=== PATIENT | male | born 1965 | race African-American/Black ===

== ENCOUNTER 2024-05-30 05:42 | Emergency (ER) | payer OTHER, SELFPAY ==
--- NOTE | ~2024-05-30 | XR_ITS ---
XR chest 1V portable DATE: 05/30/2024 06:20 INDICATION: Shortness of breath TECHNIQUE: Portable upright AP chest on 05/30/2024 0618 hours COMPARISON: None FINDINGS: Status post sternotomy. Normal heart size. No hilar or mediastinal enlargement. Mild bilateral hyperinflation. No pulmonary infiltrate or consolidation, pleural effusion or pulmonar y vascular congestion or pneumothorax is detected. IMPRESSION: Status post sternotomy Bilateral hyperinflation; otherwise no active cardiopulmonary disease Reviewed, dictated and finalized at location A. PROCESSOR
[2024-05-30 05:43] VITALS: BP 157/99; PULSE 109; RESP 23; TEMP 37.1; O2SAT 100
--- NOTE | 2024-05-30 05:49 | ECG_ITS ---
Test Date: 2024-05-30 05:52:53 Measurements Intervals [place] Rate: 106 P: 80 TN: 116 QRS: 74 QRSD: 86 T: 40 QT: 343 QTc: 457 Interpretive Statements SINUS TACHYCARDIA WITH SHORT TN INTERVAL No previous ECG available for comparison Electronically Signed On 06-02-2024 16:03:54 [employer] LEADER by Katie Chavarria M.D.
[2024-05-30 05:51] VITALS: O2SAT 100
[2024-05-30 05:53] VITALS: PULSE 115
[2024-05-30] MEDS: methylPREDNISolone SOD SUCC 125 MG VIAL IV PUSH (06:02)
--- NOTE | 2024-05-30 06:10 | ED.GENADULT ---
HPI - General Adult General Chief complaint: Shortness of Breath/Dyspnea Stated complaint: SOB/HTN Time Seen by Provider: 05/30/24 05:43 History of Present Illness HPI narrative: Patient 58-year-old gentleman who presents emergency department with chief complaint of shortness of breath. 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 Patient denies fever reports he was given a DuoNeb and a albuterol treatment prior to arrival and reports he has had some improved Related Data Allergies Allergy/AdvReac Type Severity Reaction Status Date / Time No Known Allergies Allergy Verified 05/30/24 05:56 Review of Systems Review of Systems: A 10 system review of systems was completed on the patient and is negative except for what is stated in the HPI. Nursing and ancillary documentation was reviewed. Exam Narrative: GENERAL: Well-appearing, well-nourished, and in mild acute respiratory distress. HEAD: Normocephalic, atraumatic. EYES: PERRLA and EOMI. ENT: Nares clear, no rhinorrhea or epistaxis. Mucous membranes moist. NECK: Supple. CHEST: Clear to auscultation. Mild respiratory distress. HEART: Tachycardic rate and rhythm. No murmur heard. Normal peripheral pulses. ABDOMEN: Soft, nontender, nondistended, normal active bowel sounds. EXTREMITIES: Normal range of motion. No edema. SKIN: Warm, dry, no rash. NEURO: No focal deficits. Alert and oriented x3. PSYCH: Normal mood and affect. Course Vital Signs Vital signs: Vital Signs Temperature 37.1 C 05/30/24 05:43 Pulse Rate 109 H 05/30/24 05:43 Respiratory Rate 23 H 05/30/24 05:43 Blood Pressure 157/99 H 05/30/24 05:43 Pulse Oximetry 100 05/30/24 05:43 Oxygen Delivery Room Air 05/30/24 05:43 Temperature 37.1 C 05/30/24 05:43 Pulse Rate 115 H 05/30/24 05:53 Respiratory Rate 23 H 05/30/24 05:43 Blood Pressure 157/99 H 05/30/24 05:43 Pulse Oximetry 100 05/30/24 05:51 Oxygen Delivery Room Air 05/30/24 05:51 Medical Decision Making MDM Narrative Medical decision making narrative: Differential diagnosis includes pneumonia, COPD exacerbation, upper respiratory infection strep pharyngitis Strep was negative COVID flu and RSV were negative Laboratory studies were obtained on the patient which showed a white count of 6.4 ABG showed a pH 7.42 pCO2 of 34.6 PO2 of 78 with a saturation of 95.9 lactic acid 1.5 BNP was 126 troponin was negative procalcitonin 0.1 Patient was given breathing treatments and Solu-Medrol in the emergency department the patient be discharged home with prescription for Tessalon Perles and also a prescription for prednisone. Vital Signs Vital Signs: Vital Signs Temperature 37.1 C 05/30/24 05:43 Pulse Rate 109 H 05/30/24 05:43 Respiratory Rate 23 H 05/30/24 05:43 Blood Pressure 157/99 H 05/30/24 05:43 Pulse Oximetry 100 05/30/24 05:43 Oxygen Delivery Room Air 05/30/24 05:43 Temperature 37.1 C 05/30/24 05:43 Pulse Rate 115 H 05/30/24 05:53 Respiratory Rate 23 H 05/30/24 05:43 Blood Pressure 157/99 H 05/30/24 05:43 Pulse Oximetry 100 05/30/24 05:51 Oxygen Delivery Room Air 05/30/24 05:51 Lab Data 05/30/24 06:03 05/30/24 06:03 Labs: Lab Results 05/30/24 Range/Units 06:03 WBC 6.4 (4.5-10.0) K/mm3 RBC 3.55 L (4.6-6.20) M/mm3 Hgb 11.2 L (14.0-18.0) g/dL Hct 34.1 L (42.0-52.0) % MCV 96.1 (80-100) fl MCH 31.5 (26-34) pg MCHC 32.8 (32-36) g/dl RDW 14.2 (11.5-14.5) % Plt Count 242 (150-375) k/mm3 MPV 8.1 (7.4-10.4) fl Immature Gran % (Auto) 0.3 (0-0.5) % Neut % (Auto) 67.5 (45.5-73.1) % Lymph % (Auto) 20.8 (18.3-44.2) % Harlan % (Auto) 10.6 H (2.6-8.5) % Eos % (Auto) 0.5 (0-4.4) % Baso % (Auto) 0.3 (0.2-1.2) % Lymph # (Auto) 1.34 (0.9-3.2) K/mm3 Harlan # (Auto) 0.7 H (0.1-0.6) K/mm3 Eos # (Auto) 0.0 (0-0.3) K/mm3 Baso # (Auto) 0.0 (0.0-0.1) K/mm3 Abs Immat Gran (auto) 0.02 (0.00-0.031) K/mm3 Absolute Neuts (auto) 4.3 (1.3-6.7) K/mm3 Absolute Nucleated RBC 0.000 (0.0-0.012) K/mm3 Nucleated RBC % 0.0 (0.0-0.2) % PT 13.8 (11.1-14.7) Seconds INR 1.0 APTT 31.8 (22.3-36.8) Seconds Sodium 137 (137-145) mmol/L Potassium 3.2 L (3.4-5.0) mmol/L Chloride 106 (98-107) mmol/L Carbon Dioxide 28 (22-30) mmol/L Anion Gap 3 L (4-12) mmol/L BUN 13 (9-20) mg/dL Creatinine 1.10 (0.7-1.3) mg/dL Estim Creat Clear Calc 56 ml/min Estimated GFR > 60 (59 - ) Glucose 127 H (65-110) mg/dL Lactic Acid 1.5 (0.7-2.0) mmol/L Calcium 8.2 L (8.4-10.2) mg/dL Magnesium 1.7 (1.6-2.3) mg/dL Total Bilirubin 0.4 (0.2-1.3) mg/dL AST 21 (17-59) U/L ALT 21 (6-50) U/L Alkaline Phosphatase 105 (38-126) U/L Troponin I < 0.012 (0.000-0.034) ng/mL NT-Pro-B Natriuret Pep 126 H (19.9-100) pg/mL Total Protein 6.0 L (6.3-8.2) g/dL Albumin 3.3 L (3.5-5.1) g/dL Procalcitonin 0.1 ng/mL Influenza A (RT-PCR) Negative (Negative) Influenza B (RT-PCR) Negative (Negative) RSV (RT-PCR) Negative (Negative) SARS-CoV-2 RNA (RT-PCR) Negative (Negative) Group A Strep (PCR) Not detected (Negative) ABG Data ABG results: 05/30/24 06:08 Puncture Site Right brachial ABG pH 7.424 ABG pCO2 34.6 L ABG pO2 78.0 L ABG PO2/FiO2 Ratio 3.71 ABG HCO3 22.1 ABG O2 Saturation 95.9 ABG O2 Content 14.5 L ABG Base Excess -1.8 A-a Gradient 30.3 Oxyhemoglobin 91.6 Total Hemoglobin 11.2 L O2 Delivery Device Room air O2 Liters/Min 0.0 FiO2 21 Discharge Plan Discharge Clinical Impression: Asthma exacerbation in COPD Patient Disposition: Home, Self-Care Condition: Stable Instructions: Antibiotic Form, COPD (Chronic Obstructive Pulmonary Disease) (ED) Patient Language: Japanese Prescriptions: New prednisone 20 mg tablet 40 mg PO DAILY 5 Days Qty: 10 0RF benzonatate 200 mg capsule 200 mg PO TID PRN (Reason: cough) Qty: 21 0RF Follow-up/Referrals: UNKNOWN,DOCTOR [Primary Care Provider] - Time of Disposition: 07:00
[2024-05-30 06:13] LABS: Basophils Percent Auto 0.3 % (0.2-1.2); Eosinophils Percent Auto 0.5 % (0-4.4); Hematocrit 34.1 % (42.0-52.0); Hemoglobin 11.2 g/dL (14.0-18.0); Immature Granulocyte Absolute 0.02 K/mm3 (0.00-0.031); Immature Granulocyte Percent A 0.3 % (0-0.5); Lymphocytes Absolute Auto 1.34 K/mm3 (0.9-3.2); Lymphocytes Percent Auto 20.8 % (18.3-44.2); Mean Corpuscular HGB Conc 32.8 g/dl (32-36); Mean Corpuscular Hemoglobin 31.5 pg (26-34); Mean Corpuscular Volume 96.1 fl (80-100); Mean Platelet Volume 8.1 fl (7.4-10.4); Monocytes Absolute Auto 0.7 K/mm3 (0.1-0.6); Monocytes Percent Auto 10.6 % (2.6-8.5); Neutrophils Absolute Auto 4.3 K/mm3 (1.3-6.7); Neutrophils Percent Auto 67.5 % (45.5-73.1); Platelet Count Result 242 k/mm3 (150-375); Red Blood Count 3.55 M/mm3 (4.6-6.20); Red Cell Distribution Width 14.2 % (11.5-14.5); White Blood Count 6.4 K/mm3 (4.5-10.0)
[2024-05-30 06:17] LABS: Alveolar/Arterial O2 Gradient 30.3 mmHg; Base Excess ABG -1.8 mEq/l (+/-2.0); Fractional Inspired Oxygen 21 %; HCO3 ABG 22.1 mEq/l (22.0-26.0); Oxygen Content ABG 14.5 %vol (16.0-22.0); Oxygen Saturation ABG 95.9 % (95.0-100.0); Oxyhemoglobin 91.6 % THb (90.0-100.0); PCO2 ABG 34.6 mmHg (35.0-45.0); PO2 FiO2 Ratio Arterial Blood 3.71 %; Total Hemoglobin 11.2 g/dL (12.0-18.0); pH ABG 7.424 (7.350-7.450)
[2024-05-30 06:18] LABS: Device ROOM AIR; Site Drawn RIGHT BRACHIAL
[2024-05-30 06:24] LABS: Prothrombin Time 13.8 Seconds (11.1-14.7)
[2024-05-30 06:25] LABS: Partial Thromboplastin Time 31.8 Seconds (22.3-36.8)
[2024-05-30 06:26] LABS: Lactic Acid Reflex 1.5 mmol/L (0.7-2.0)
[2024-05-30 06:31] LABS: Alanine Aminotransferase 21 U/L (6-50); Albumin Level 3.3 g/dL (3.5-5.1); Alkaline Phosphatase 105 U/L (38-126); Anion Gap 3 mmol/L (4-12); Aspartate Amino Transferase 21 U/L (17-59); Bilirubin,Total 0.4 mg/dL (0.2-1.3); Blood Urea Nitrogen 13 mg/dL (9-20); Calcium 8.2 mg/dL (8.4-10.2); Carbon Dioxide 28 mmol/L (22-30); Chloride 106 mmol/L (98-107); Estimated CRCL calculation 56 ml/min; Estimated Glomerular Filt Rate > 60; Glucose 127 mg/dL (65-110); Magnesium 1.7 mg/dL (1.6-2.3); Potassium 3.2 mmol/L (3.4-5.0); Sodium 137 mmol/L (137-145)
[2024-05-30 06:38] LABS: Strep Group A RT-PCR NOT DETECTED (Negative)
[2024-05-30 06:39] LABS: NT Pro B Type Natriuretic Pept 126 pg/mL (19.9-100); Troponin I < 0.012 ng/mL (0.000-0.034)
[2024-05-30 06:44] LABS: Procalcitonin 0.1 ng/mL
[2024-05-30 06:52] LABS: Influenza A QL RT-PCR Negative (Negative); Influenza B QL RT-PCR Negative (Negative); RSV RNA, RT-PCR Negative (Negative); SARS-CoV-2 RNA PCR Negative (Negative)
[2024-05-30 07:07] LABS: Add Urine Microscopic? NO; Appearance Urine Clear (Clear); Bilirubin Urine Negative (Negative); Blood Urine Negative (Negative); Color Urine Yellow (Yellow); Glucose Urine UA Negative (Negative); Ketones Urine Negative (Negative); Leukocyte Esterase Ur Negative LEU/UL (Negative); Nitrate Urine Negative (Negative); Protein Urine Negative (Negative); Specific Grav Ur 1.013 (1.001-1.035); Urobilinogen Urine 0.2 mg/dL (<2.0)
[2024-05-30 07:17] VITALS: BP 157/83; PULSE 100; RESP 20; O2SAT 99
[2024-05-30 07:18] VITALS: BP 157/83; PULSE 100; RESP 20; O2SAT 99
--- OUTSIDE RECORDS SUMMARY | 2024-06-06 03:21 | XMS_ITS | Encounter Summary ---
Author Organization [facility] Address [address] [place] [address]. [place], [place] [id number] [place] [id number] Care Team Providers Care Production Support Specialist Name Role Phone Hemant Lopez MD Primary Care Provider + [phone] Hemant Lopez MD Primary Care Provider + [phone] Encounter Details Date Type Department Care Team (Late st Contact Info) Description 02/19/2016 Abstract [facility]UL[facility] CONVERSION [place], [place] [id number] , Generic Conversion, Social History Tobacco Use Types Packs/Day Years Used Date Smoking Tobacco: Never Assessed Sex and Gender Information Value Date Recorded Sex Assigned at Not on file Legal Sex Male 6:41 PM CDT Gender Identity Not on file Sexual Orientation Not on file documented as of this encounter Plan of Treatment Not on file documented as of this encounter Procedures Procedure Name Priority Date/Time Associated Diagnosis Comments HEPATIC FUNCTION PANEL Routine 02/19/2016 10:04 AM CDT CBC, AUTO, NO DIFF Routine 02/19/2016 10 :04 AM CDT documented in this encounter Results * HEPATIC FUNCTION PANEL (02/19/2016 10:04 AM CDT) BILIRUBIN TOTAL S/P/B 0.2 0.2 - 1.2 mg/dL 02/19/2016 2:[address] [facility] ALKALINE PHOSPHATASE S/P/B 70 40 - 129 U/L 02/19/2016 2:[address] [facility] AST 20 0 - 40 U/L 02/19/2016 2:[address] [facility] TOTAL PROTEIN S/P/B 6.8 6.4 - 8.3 g/dL 02/19/2016 2:[address] [facility] ALBUMIN S/P/B 3.7 3.5 - 5.2 g/dL 02/19/2016 2:[address] [facility] ALT 11 0 - 41 U/L 02/19/2016 2:[address] [facility] BILIRUBIN DIRECT S/P/B <0.20 0.0 - 0.3 mg/dL 02/19/2016 2:[address] [facility] BILIRUBIN INDIRECT S/P/B NOT CALCULATED 0.0 - 0.9 mg/dL 02/19/2016 2:[address] [facility] GLOBULIN 3.1 2.3 - 3.6 g/dL 02/19/2016 2:[address] [facility] A/G RATIO 1.2 1.0 - 2.0 02/19/2016 2:[address] [facility] 02/19/2016 10:0 4 AM CDT 02/19/2016 10:21 AM CDT us Generic Conversion Md [facility] Final R esult [facility] [address] [place] [address], * (ABNORMAL) CBC, AUTO, NO DIFF (02/19/2016 10:04 AM CDT) WBC 6.8 4.8 - 10.8 X10'3/uL 02/19/2016 11:[address] [facility] RBC 4.05(L) 4.70 - 6.10 X10'6/uL 02/19/2016 11:[address] [facility] HGB 13.2(L) 14.0 - 18.0 g/dL 02/19/2016 11:[address] [facility] HCT 39.9(L) 43.0 - 54.0 % 02/19/2016 11:[address] [facility] MCV 98.5(H) 80.0 - 94.0 fL 02/19/2016 11:[address] [facility] MCH 32.6(H) 27.0 - 31.0 pg 02/19/2016 11:[address] [facility] MCHC 33.1 32.0 - 36.0 g/dL 02/19/2016 11:[address] [facility] RDW 14.6(H) 11.5 - 14.5 % 02/19/2016 11:[address] [facility] PLT 240 130 - 400 X10'3/uL 02/19/2016 11:[address] [facility] MPV 8.2(L) 9.3 - 12.2 fL 02/19/2016 11:[address] [facility] 02/19/2016 10:0 4 AM CDT 02/19/2016 10:21 AM CDT us Generic Conversion Md [facility] Final R esult [facility] [address] [place] [address], documented in this encounter Visit Diagnoses Diagnosis Crohn's disease of small intestine without complication (CMS/HCC HHS/HCC) Regional enteritis of small intestine documented in this encounter Care Teams Production Support Specialist Relationship Specialty Start Date End Date Hemant Lopez MD PCP - General 04/09/16 02/15/24 Hemant Lopez MD PCP - General 02/19/16 04/08/16 documented as of this encounter
--- OUTSIDE RECORDS SUMMARY | 2024-06-06 03:21 | XMS_ITS | Encounter Summary ---
Author Organization [facility] Address [address] [place] [address]. [place], [place] [id number] [place] [address] Care Team Providers Care Riveter [employer] Brakes Name Role Phone Hemant Lopez MD Primary Care Provider [phone] Sabine Looney MD Primary Care Provider Encounter Details Date Type Department Care Team (Late st Contact Info) Description 09/01/2018 Hospital Follow-up Call [facility] Telemetry Unit B [address] [place] [address] Brina Dick Social History Tobacco Use Types Packs/Day Years Used Date Smoking Tobacco: Every Day Cigarettes Smokeless Tobacco: Never Alcohol Use Standard Drinks/Week Comments No 0 (1 standard drink = 0.6 oz pur e alcohol) AUDIT-C Answer Date Recorded Frequency of Alcohol Consumption Never 08/29/2018 Average Number of Drinks Not on file 019 Frequency of Binge Drinking Not on file 10/2018 Sex and Gender Information Value Date Recorded Sex Assigned at Not on file Legal Sex Male 6:41 PM CDT Gender Identity Not on file Sexual Orientation Not on file documented as of this encounter Plan of Treatment Not on file documented as of this encounter Visit Diagnoses Not on filedocumented in this encounter Additional Health Concerns Infection Onset Date Last Indicated Resolved Time COVID-19 Rule Out 02/13/2024 02/13/2024 02/13/2024 11:40 PM CDT COVID-19 Rule Out 02/16/2024 02/16/2024 02/16/2024 11:01 AM CDT Parainfluenza 02/16/2024 02/16/2024 02/26/2024 12: 32 AM CDT documented as of this encounter Care Teams [employer] Relationship Specialty Start Date End Date Hemant Lopez MD PCP - General 04/09/16 02/15/24 Sabine Looney MD [address] [phone] PCP - General INTERNAL MEDICINE 02/16/24 documented as of this encounter
--- OUTSIDE RECORDS SUMMARY | 2024-06-06 03:21 | XMS_ITS | Encounter Summary ---
Author Organization [facility] Address [address] [place] [address]. [place], [place] [id number] [place] [address] Care Team Providers Care Cold Mill Operator Name Role Phone Hemant Lopez MD Primary Care Provider + [phone] Reason for Visit * Reason Comments Abscess Encounter Details Date Type Department Care Team ([facility] Contact Info) Description 11/05/2018 10:39 PM CDT - 11/06/2018 12:22 AM CDT [facility] [place] [address] Casie Tamayo, ISAIAS [address] [place] [address] Abscess Discharge Disposition: Home or Self Care (Routine Discharge) Social History Tobacco Use Types Packs/Day Years [...] on file documented as of this encounter Last Filed Vital Signs Vital Sign Reading Time Taken Comments Blood Pressure 139/96 11/05/2018 11:58 PM CDT Pulse 80 11/05/2018 11:58 PM CDT Temperature 36.7 ??C (98.1 ??F) 11/05/2018 1 0:25 PM CDT Respiratory Rate 18 11/05/2018 11:5 8 PM CDT Oxygen Saturation 100% 11/05/2018 11: 58 PM CDT Inhaled Oxygen Concentration - - Weight 57.1 kg (125 lb 12.8 oz) 019 10:25 PM CDT Height 170.2 cm (5' 7 ) 11/05/2018 10:2 5 PM CDT Body Mass Index 19.7 11/05/2018 10:25 PM CDT documented in this encounter Discharge Instructions * Discharge Instructions* Casie Tamayo PA-C - 11/06/2018 12:05 AM CDT Take rectal suppositories as prescribed. Take medication as prescribed for breakthrough pain, if [id number] pain medicine is not working enough. Follow-up with your doctor. You may also follow-up with the assigned general surgeon to further discuss hemorrhoids. * Attachments The following attachments cannot be sent through Care Everywhere. * Hemorrhoids Discharge Instructions (Citizen Of [place]) documented in this encounter Medications at Time of Discharge hydrocodone-acet aminophen (NORCO) 5-325 MG tablet Take 1 tablet by mouth every 8 (eight) hours as needed for Pain. 8 tablet 11/06/2018 02/19/20 24 hydrocortisone [address] 1 suppository (25 mg total) rectally 2 (two) times daily for 10 days. 20 suppository 11/06/2018 11/17/19 19 documented as of this encounter ED Notes * Casie Tamayo PA-C - 11/05/2018 11:59 PM CDT ED NOTE Cirilo Cali 1965 Chief Complaint Chief Complaint Patient presents with ??? Abscess History of Present Illness Patient presents to the emergency room complaining of painful tender bump to rectal region x2 to 3 days. Patient believes it is an abscess, although no drainage reported. He does report history of hemorrhoids. Denies constipation, abdominal pain, rectal bleeding, bloody stool. No medication attempted for hemorrhoids prior to arrival. States that he had to leave work tonight due to rectal pain. Requesting a work note. Medical History ALLERGIES: Allergies Allergen Reactions ??? Dilaudid [Hydromorphone] Itching Makes me itch every where MEDICATIONS: Prior to Admission medications Medication Sig Start Date End Date Taking? Authorizing Provider hydrocodone-acetaminophen (NORCO) 5-325 MG tablet Take 1 tablet by mouth every 8 (eight) hours as needed for Pain. 11/06/18 Yes Casie Tamayo PA-C hydrocortisone [address] 1 suppository (25 mg total) rectally 2 (two) times daily for10 days. 11/06/18 11/16/18 Yes Casie Tamayo PA-C PAST MEDICAL HISTORY: Past Medical History: Diagnosis Date ??? Anemia ??? Bronchitis ??? Crohn disease (CMS/HCC) ??? Hypertension PAST SURGICAL HISTORY: Past Surgical History: Procedure Laterality Date ??? APPENDECTOMY ??? HC COLON RESECTION FAMILY HISTORY: No family history on file. SOCIAL HISTORY: Social History Tobacco Use ??? Smoking status: Current Every Day Smoker Packs/day: 0.25 Types: Cigarettes ??? Smokeless tobacco: Never Used Substance Use Topics ??? Alcohol use: No Frequency: Never ??? Drug use: Yes Types: Cocaine Review of Systems Review of Systems Constitutional: Negative for activity change, appetite change, fever and unexpected weight change. HENT: Negative for ear pain, sore throat and trouble swallowing. Eyes: Negative. Respiratory: Negative for cough, chest tightness and shortness of breath. Cardiovascular: Negative for chest pain, palpitations and leg swelling. Gastrointestinal: Positive for rectal pain (with swelling). Negative for abdominal distention, abdominal pain, anal bleeding, blood in stool, constipation, diarrhea, nausea and vomiting. Endocrine: Negative. Genitourinary: Negative for dysuria, flank pain and hematuria. Musculoskeletal: Negative for arthralgias, back pain, myalgias and neck pain. Skin: Negative for color change, rash and wound. Allergic/Immunologic: Negative for immunocompromised state. Neurological: Negative for dizziness, speech difficulty, weakness, light- headedness, numbness and headaches. Hematological: Negative for adenopathy. Psychiatric/Behavioral: Negative. Physical Exam Filed Vitals: 11/05/18 2225 11/05/18 2358 BP: 133/88 (!) 139/96 Pulse: 102 80 Resp: 18 18 Temp: 98.1 ??F (36.7 ??C) TempSrc: Temporal SpO2: 100% 100% Weight: 57.1 kg (125 lb 12.8 oz) Height: 5' 7 (1.702 m) Physical Exam Constitutional: He is oriented to person, place, and time. He appears well- developed and well-nourished. No distress. HENT: Head: Normocephalic and atraumatic. Nose: Nose normal. Mouth/Throat: Oropharynx is clear and moist. Eyes: Conjunctivae and EOM are normal. Pupils are equal, round, and reactive to light. Neck: Normal range of motion. Neck supple. No tracheal deviation present. No thyromegaly present. Cardiovascular: Normal rate, regular rhythm, normal heart sounds and intact distal pulses. Pulmonary/Chest: Effort normal and breath sounds normal. No respiratory distress. Abdominal: Soft. Bowel sounds are normal. He exhibits no distension and no mass. There is no tenderness. There is no rebound and no guarding. No hernia. Genitourinary: Rectum normal and penis normal. Genitourinary Comments: 3 external small hemorrhoids noted to anus, none bleeding. No thrombosis observed. Normal rectal tone. Musculoskeletal: Normal range of motion. He exhibits no edema, tenderness or deformity. Lymphadenopathy: He has no cervical adenopathy. Neurological: He is alert and oriented to person, place, and time. He displays normal reflexes. No cranial nerve deficit or sensory deficit. He exhibits normal muscle tone. Coordination normal. Skin: Skin is warm and dry. Capillary refill takes less than 2 seconds. No rash noted. He is not diaphoretic. No pallor. Psychiatric: He has a normal mood and affect. His behavior is normal. Judgment and thought content normal. Nursing note and vitals reviewed. Diagnostic Studies / Procedures ELECTROCARDIOGRAMS: No results found for this visit on 11/05/18. LABORATORY STUDIES: No results found for this visit on 11/05/18. IMAGING STUDIES No orders to display ED Course / Medical Decision Making Patient is in no acute distress, vital signs are stable, afebrile. Rectal exam as noted with obvious hemorrhoids. No abscess appreciated. No anal fissure. No bleeding. Anusol given. Will discharge home. Medications hydrocortisone (ANUSOL-HC) suppository 25 mg (not administered) Clinical Impression Hemorrhoids, unspecified hemorrhoid type (Primary) Current Discharge Medication List START taking these medications Details hydrocodone-acetaminophen (NORCO) 5-325 MG tablet Take 1 tablet by mouth every 8 (eight) hours as needed for Pain. Qty: 8 tablet, Refills: 0 Class: Print Pharmacy: [facility] [address] [place] [address](Ph #: [phone]) hydrocortisone [address] 1 suppository (25 mg total) rectally 2 (two) times daily for10 days. Qty: 20 suppository, Refills: 0 Class: Eprescribe Pharmacy: [facility] [address](Ph #: [phone]) Disposition: Discharge Follow-Up: Hemant Lopez MD [address] [place] [address] [address] [facility] [address] In 3 days Henry Douglass MD [address] [facility] [address] [facility] [address] In 3 days CASIE TAMAYO PA-C 11/06/2018 Casie Tamayo PA-C 11/06/18 0006 Cosigned by Don Schaffer MD at 11/06/2018 12:09 AM CDT * Alyssa Rashid RN - 11/05/2018 10:28 PM CDT Pt to the ed from home c/o an abscess above his rectum for the past three days. ALYSSA RASHID RN documented in this encounter Plan of Treatment Not on file documented as of this encounter Visit Diagnoses Diagnosis Hemorrhoids, unspecified hemorrhoid type- Primary documented in this encounter Administered Medications Inactive Administered Medications - up to 3 most recent administrations Medication Order MAR Action Action Date Dose Rate Site hydrocortisone (ANUSOL-HC) suppository 25 mg 25 mg, Rectal, Once, 1 dose, On Fri11/06/18 at 0015 Given 11/06/2018 12:17 AM CDT 25 mg documented in this encounter Active and Recently Administered Medications Times are shown in CDT. Scheduled Medication Order 11/04/2018 11/05/2018 11/06/2018 hydrocortisone (ANUSOL-HC) suppository 25 mg (COMPLETED) 25 mg, Rectal, Once, 1 dose, On Fri11/06/18 at 0015 0017 (Given - Provid er: Windy Ho RN) documented in this encounter Care Teams Cold Mill Operator Relationship Specialty Start Date End Date Hemant Lopez MD PCP - General 04/09/16 02/15/24 documented as of this encounter
--- OUTSIDE RECORDS SUMMARY | 2024-06-06 03:21 | XMS_ITS | Encounter Summary ---
Author Organization [facility] Address [address] [place] [address]. [place], [place] [id number] [place] [id number] Care Team Providers Care Powder Guard Name Role Phone Hemant Lopez MD Primary Care Provider + [phone] Hemant Lopez MD Primary Care Provider + [phone] Hemant Lopez MD Primary Care Provider + [phone] Encounter Details Date Type Department Care Team (Late st Contact Info) Description 01/30/2016 Abstract [place] [address] , Generic Conversion, Social History Tobacco Use [...] Associated Diagnosis Comments HEPATIC FUNCTION PANEL Routine 01/30/2016 9:20 AM CDT CBC, AUTO, NO DIFF Routine 01/30/2016 9: 20 AM CDT documented in this encounter Results * HEPATIC FUNCTION PANEL (01/30/2016 9:20 AM CDT) BILIRUBIN TOTAL S/P/B 0.2 0.2 - 1.2 mg/dL 01/30/2016 11:04 AM CDT [facility] ALKALINE PHOSPHATASE S/P/B 68 40 - 129 U/L 01/30/2016 10:53 AM CDT [facility] AST 12 0 - 40 U/L 01/30/2016 11:04 AM CDT [facility] TOTAL PROTEIN S/P/B 6.7 6.4 - 8.3 g/dL 01/30/2016 11:04 AM CDT [facility] ALBUMIN S/P/B 4.2 3.5 - 5.2 g/dL 01/30/2016 10:53 AM CDT [facility] ALT 12 0 - 41 U/L 01/30/2016 11:07 AM T [facility] BILIRUBIN DIRECT S/P/B <0.20 0.0 - 0.3 mg/dL 01/30/2016 11:04 AM T [facility] BILIRUBIN INDIRECT S/P/B NOT CALCULATED 0.0 - 0.9 mg/dL 01/30/2016 11:04 AM CDT [facility] GLOBULIN 2.5 2.3 - 3.6 g/dL 01/30/2016 11:04 AM T [facility] A/G RATIO 1.7 1.0 - 2.0 01/30/2016 11:04 AM T [facility] 01/30/2016 9:20 AM CDT 01/30/2016 10:28 AM CDT us Generic Conversion Md [facility] Final R esult [facility] [address] [place] [address], * (ABNORMAL) CBC, AUTO, NO DIFF (01/30/2016 9:20 AM CDT) WBC 8.2 4.8 - 10.8 X10'3/uL 01/30/2016 10:43 AM CDT [facility] RBC 4.30(L) 4.70 - 6.10 X10'6/uL 01/30/2016 10:43 AM CDT [facility] HGB 14.0 14.0 - 18.0 g/dL 01/30/2016 10:43 AM CDT [facility] HCT 43.5 43.0 - 54.0 % 01/30/2016 10:43 AM CDT [facility] MCV 101.2(H) 80.0 - 94.0 fL 01/30/2016 10:43 AM CDT [facility] MCH 32.6(H) 27.0 - 31.0 pg 01/30/2016 10:43 AM CDT [facility] MCHC 32.2 32.0 - 36.0 g/dL 01/30/2016 10:43 AM CDT [facility] RDW 14.6(H) 11.5 - 14.5 % 01/30/2016 10:43 AM CDT [facility] PLT 264 130 - 400 X10'3/uL 01/30/2016 10:43 AM CDT [facility] MPV 8.4(L) 9.3 - 12.2 fL 01/30/2016 10:43 AM CDT [facility] 01/30/2016 9:20 AM CDT 01/30/2016 10:28 AM CDT us Generic Conversion Md [facility] Final R esult [facility] [address] [place] [address], documented in this encounter Visit Diagnoses Diagnosis Crohn's disease of both small and large intestine with other complication (CMS/HCC HHS/HCC) documented in this encounter Care Teams Powder Guard Relationship Specialty Start Date End Date Hemant Lopez MD PCP - General 04/09/16 02/15/24 Hemant Lopez MD PCP - General 02/19/16 04/08/16 Hemant Lopez MD PCP - General 01/30/16 02/18/16 documented as of this encounter
--- OUTSIDE RECORDS SUMMARY | 2024-06-06 03:21 | XMS_ITS | Data Portability ---
Author Organization [place] - [facility], [facility] V[facility] Address [address] [place] [address] Care Team Providers Care Machine Candle Molder Name Role Phone JOSH JUNIOR Primary Care Provider JOSH JUNIOR Referring Provider [phone] Assessment No assessment recorded. Plan of Treatment Reminders Order Date Submit Date Provider Last Modified By Organization Details Last Modified Time Details Appointments None record ed. Lab None record ed. Referral None record ed. Procedures None record ed. Surgeries None record ed. Imaging None record ed. Medication Orders None record ed. Patient TargetsNo targets recorded. Patient InstructionsNo instructions recorded. Reason for Referral None Reported. Problems Name Problem SNOMED Code Status Onset Date Resolution Date Notes Provider Name and Address Organization Details Recorded Time Pain of right shoulder joint 31542053322 133866 Active 2021 Not Available [facility] 3 21:46:24 Cobalamin deficienc y 078349820 Active 2021 Not Available [facility] 3 21:46:24 Inflammat ory bowel disease 95642665 Completed Not Available [facility] 3 21:46:24 Anemia 593942588 Active 2021 Not Available [facility] 3 21:46:25 Bronchiti s 35916675 Completed 201911/08/2020 Not Available [facility] 3 21:46:25 Crohn's disease 70965833 Active 2019 Not Available [facility] 3 21:46:25 Vitamin D deficienc y 38944141 Active 2021 Not Available [facility] 3 21:46:25 Hypertens luciano disorder 21395446 Active 2019 Not Available Counts include 234 beds at the [facility] 3 21:46:25 Hypokalem ia 45931060 Active 2021 Not Available Counts include 234 beds at the [facility] 3 21:46:25 Diarrhea 00523368 Active Not Available Counts include 234 beds at the [facility] 3 21:46:25 Chronic bronchiti s 02380617 Active Not Available Counts include 234 beds at the [facility] 3 21:46:25 Notes:Medical History: Rhini tis to multiple environmental allergens with postnasal drip IgE 99 IU/ml Eosinophils 30/uL Alpha-1 antitrypsin PIMM 125 mg% Nicotine dependence Severe COPD with reversibility, declined pulm rehab RLL granuloma Hypertension on amlodipine Prediabetes CAD ANTHONY Fatty liver Crohn's disease on Humira, off budesonide Hemorrhoids Anemia Vit B12 deficiency Vit D deficiency Thoracic DDD Procedure history: Right femur reduction and internal fixation 1983 CABG 2020 Occupational History: [employer] Problem Notes None recorded. Procedures Surgical History Date Name Laterality Status Provider Name and Address Organization Details Recorded Time revision of colostomy completed Not Available Counts include 234 beds at the [facility] 06/01/2022 21:39:25 partial resection of colon completed Not Available Counts include 234 beds at the [facility] 06/01/2022 21:39:25 open reduction of fracture of femur completed Not Available Counts include 234 beds at the [facility] 06/01/2022 21:39:25 colostomy completed Not Available [place] [id number] 06/01/2022 21:39:25 Colonoscopy completed Not Available Counts include 234 beds at the [facility] 06/01/2022 21:39:25 Imaging Results None recorded. Procedure Notes None recorded. Medical Equipment None Reported. Allergies Allergen ID Allergen Name Allergen Category Reaction Reaction Severity Criticality Documentation Date Start Date Code Code System Note Provider Name and Address Organization Details Recorded Time 95052 Dilaudid medicatio n itching Not available Not available 06/01/2022 49624 3 RxNorm Not Available Counts include 234 beds at the [facility] 21:55:02 Medications Name Sig Start Date Stop Date Status Note LastModified by Organization Details LastModified Time furosemid e 40 mg tablet 06/15 completed Not Available Not Available Not Available promethaz ine-DM 6.25 mg-15 mg/5 mL oral syrup TAKE 5 ML BY MOUTH THREE TIMES DAILY 05/06 completed Not Available Not Available Not Available acetamino phen 325 mg tablet 06/18 completed Not Available Not Available Not Available carvedilo l 6.25 mg tablet Take 1 tablet twice a day by oral route. active Not Available Not Available No t Available prednison e 10 mg tablet TAKE 6 TABLETS BY MOUTH IN THE MORNING FOR 2 DAYS THEN 5 TABLETS FOR 2 DAYS THEN 4 TABLETS FOR 2 DAYS THEN 3 TABLETS FOR 2 DAYS THEN 2 TABLETS FOR 2 DAYS THEN 1 TABLET FOR 2 DAYS active Not Available Not Available No t Available nicotine 14 mg/24 hr daily transderm al patch APPLY 1 PATCH TOPICALL Y ONCE DAILY active Uses sparingl y Not Available Not Available Not Available loperamid e 2 mg capsule TAKE 1 CAPSULE NOW AND 1 CAPSULE AFTER EACH DIARRHEA EPISODE, NO MORE THEN 8 CAPSULES IN A DAY active Not Available Not Available No t Available benzonata te 200 mg capsule Take 1 capsule 3 times a day by oral route as needed. active Not Available Not Available No t Available bupivacai ne HCl 0.5 % (5 mg/mL) injection solution Take 8 mg by injectio n route. 10/11 completed Not Available Not Available Not Available promethaz ine 6.25 mg-codein e 10 mg/5 mL syrup Take 5 mL as needed by oral route at bedtime. active Not Available Not Available No t Available clopidogr el 75 mg tablet TAKE 1 TABLET BY MOUTH ONCE DAILY active Not Available Not Available No t Available amlodipin e 5 mg tablet Take 1 tablet by mouth once daily 03/19 completed Not Available Not Available Not Available peg-elect rolyte solution 420 gram oral solution USE DIRECTED 02/05 completed Not Available Not Available Not Available aspirin 81 mg tablet,de layed release active Not Available Not Available Not Available Kenalog 10 mg/mL suspensio n for injection In office injectio n administ ered by the provider 10/11 completed [facility]: [phone] Not Available Not Available Not Available amlodipin e 10 mg tablet 05/06 completed Not Available Not Available Not Available cyanocoba jailene (vit B-12) 1,000 mcg/mL injection solution Inject 1 mL every month by subcutan eous route. active Not Available Not Available No t Available ferrous sulfate 325 mg (65 mg iron) tablet Take 1 tablet every day by oral route. active Not Available Not Available No t Available promethaz ine 25 mg tablet TAKE 1 2 (ONE HALF) TABLET BY MOUTH EVERY 6 HOURS NEEDED FOR NAUSEA 03/05 completed Not Available Not Available Not Available nitroglyc heather 0.4 mg sublingua l tablet 07/11 completed Not Available Not Available Not Available docusate sodium 100 mg capsule 06/18 completed Not Available Not Available Not Available ergocalci ferol (vitamin D2) 1,250 mcg (50,000 unit) capsule TAKE 1 CAPSULE BY MOUTH ONCE A WEEK active Not Available Not Available No t Available budesonid e DR - ER 3 mg capsule,d elayed,ex tended release 06/18 completed Not Available Not Available Not Available methylpre dnisolone 4 mg tablets in a dose pack TAKE BY MOUTH DIRECTED ON INSIDE OF PACKAGE 10/11 completed Not Available Not Available Not Available albuterol sulfate HFA 90 mcg/actua tion aerosol inhaler INHALE 1 PUFF BY MOUTH EVERY 4 HOURS NEEDED active Not Available Not Available No t Available ferrous sulfate 325 mg (65 mg iron) tablet,de layed release TAKE 1 TABLET BY MOUTH ONCE DAILY active Not Available Not Available No t Available amoxicill in 875 mg-potass ium clavulana te 125 mg tablet Take 1 tablet every 12 hours by oral route for 7 days. active Not Available Not Available No t Available cholestyr amine (with sugar) 4 gram oral powder TAKE 1 SCOOP (4GM) DISSOLVE D IN 2 TO 6 OUNCES OF WATER OR NONCARBO NATED BEVERAGE BY MOUTH ONCE DAILY FOR THE FIRST WEEK THEN TAKE TWICE DAILY 07/11 completed Not Available Not Available Not Available rosuvasta tin 20 mg tablet Take 1 tablet every day by oral route. active Not Available Not Available No t Available bupropion HCl XL 150 mg 24 hr tablet, extended release TAKE 1 TABLET BY MOUTH ONCE DAILY active Not Available Not Available No t Available melatonin 10/11 completed Not Available Not Available Not Available Pepto-Bis mol 11/08 completed Not Available Not Available Not Available Imodium A-D 11/08 completed Not Available Not Available Not Available Lomotil 11/08 completed Not Available Not Available Not Available Metamucil 09/15 completed Not Available Not Available Not Available Symbicort 160 mcg-4.5 mcg/actua tion HFA aerosol inhaler Inhale 2 puffs twice a day by inhalati on route. active Not Available Not Available No t Available oxycodone 10 mg tablet 05/04 completed Not Available Not Available Not Available Suprep Bowel Prep Kit 17.5 gram-3.13 gram-1.6 gram oral solution USE DIRECTED 08/24 completed Not Available Not Available Not Available Spiriva Respimat 2.5 mcg/actua tion solution for inhalatio n Inhale 2 puffs every day by inhalati on route. active Not Available Not Available No t Available Procto-Me d HC 2.5 % topical cream perineal applicato r APPLY A THIN LAYER TO THE AFFECTED AREAS BY TOPICAL ROUTE 2 TO 4 TIMES DAILY NEEDED active Not Available Not Available No t Available Bevespi Aerospher e 9 mcg-4.8 mcg HFA aerosol inhaler Inhale by inhalati on route for 90 days. active Not Available Not Available No t Available Humira(CF ) Pen 40 mg/0.4 mL subcutane ous kit INJECT 1 PEN SUBCUTAN EOUSLY EVERY 2 WEEKS IN THE ABDOMEN OR THIGH (ROTATE SITES) active Not Available Not Available No t Available Humira(CF ) Pen Crohn's-U lc Colitis-H id Sup Strt 80 mg/0.8 mL subcut kt Inject 160 mg by subcutan eous route in the morning. active Not Available Not Available No t Available Vitals Date Recorded Body mass index (BMI) Body height Oxygen saturation Oxygen saturation in Arterial blood by Pulse oximetry Heart rate Body temperature Body weight Systolic blood pressure Diastolic blood pressure Provider Name and Address Organization Details Last Updated DateTime 2 23 kg/m2 170.18 cm 98 % 98 % 109 /min 97.6 [degF] 27887.0 8 g 130 mm[Hg] 82 mm[Hg] Not Available [facility] 3 21:42:12 Date Recorded Body mass index (BMI) Heart rate Body height Oxygen saturation Oxygen saturation in Arterial blood by Pulse oximetry Heart rate Respiratory rate Body temperature Body weight Systolic blood pressure Diastolic blood pressure Provider Name and Address Organization Details Last Updated DateTime 2 23 kg/m2 96 /min 170.18 cm 97 % 97 % 96 /min 16 /min 98.7 [degF] 52404.0 8 g 142 mm[Hg] 88 mm[Hg] Not Available Counts include 234 beds at the [facility] 3 21:42:12 Date Recorded Body mass index (BMI) Body height Body weight Provider Name and Address Organization Details Last Updated DateTime 07/11/2021 23.3 kg/m2 170.18 cm 89785.73 g Not Available [facility] 06/01/2022 21:42:17 Date Recorded Body mass index (BMI) Heart rate Body height Oxygen saturation Oxygen saturation in Arterial blood by Pulse oximetry Heart rate Respiratory rate Body temperature Body weight Systolic blood pressure Diastolic blood pressure Provider Name and Address Organization Details Last Updated DateTime 2 24.1 kg/m2 95 /min 170.18 cm 97 % 97 % 95 /min 17 /min 97.2 [degF] 12128.2 2 g 130 mm[Hg] 89 mm[Hg] Not Available Counts include 234 beds at the [facility] 3 21:42:12 Date Recorded Body mass index (BMI) Body height Oxygen saturation Oxygen saturation in Arterial blood by Pulse oximetry Heart rate Body weight Systolic blood pressure Diastolic blood pressure Provider Name and Address Organization Details Last Updated DateTime 2 24.4 kg/m2 170.18 cm 96 % 96 % 104 /min 26118.4 1 g 128 mm[Hg] 80 mm[Hg] Not Available Counts include 234 beds at the [facility] 3 21:42:13 Social History Question Answer Notes LastModified by Organization Details LastModified Time Tobacco Smoking Status Current Some Day Smoker Not Available Counts include 234 beds at the [facility] 06/01/2022 21:37:52 Do You Have An Advance Directive? No MIGRATION.0107 [id number] Information not available 06/01/2022 What Is Your Level Of Alcohol Consumption? Occasional MIGRATION.0107 [id number] Information not available 06/01/2022 What Is Your Level Of Caffeine Consumption? Occasional MIGRATION.0107 [id number] Information not available 06/01/2022 How Much Tobacco Do You Chew? None MIGRATION.010 [id number] Information not available 06/01/2022 In The 14 Days Before Symptom Onset, Have You Had Close Contact With A Laboratory-conf liana PEÑAID-19 While That Case Was Ill? No MIGRATION.106 [id number] Information not available 06/01/2022 In The 14 Days Before Symptom Onset, Have You Had Close Contact With A Person Who Is Under Investigation For COVID-19 While That Person Was Ill? No MIGRATION.010 831781 Information not available 06/01/2022 Are You Currently Employed? Yes MIGRATION.0107 [id number] Information not available 06/01/2022 What Type Of Diet Are You Following? REGULAR MIGRATION.106 [id number] Information not available 06/01/2022 Which Illicit Or Recreational Drugs Have You Used? Cocaine, Cannabis Not Using, Daily Smoker MIGRATION.106 002511 Information not available 06/01/2022 Do You Or Have You Ever Used E-cigarettes Or Vape? Never Used Electronic Cigarettes MIGRATION.106 [id number] Information not available 06/01/2022 What Is The Highest Grade Or Level Of School You Have Completed Or The Highest Degree You Have Received? 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 No MIGRATION.010 866556 Information not available 06/01/2022 Are There Any Guns Present In Your Home? No MIGRATION.0107 [id number] Information not available 06/01/2022 Do You Use Insect Repellent Routinely? No MIGRATION.0107 [id number] Information not available 06/01/2022 Where Do You Live? Merged with [facility] MIGRATION.106 522342 Information not available 06/01/2022 Do You Have A Medical Power Of Rn Care Transition? No MIGRATION.0107 [id number] Information not available 06/01/2022 What Was The Date Of Your Most Recent Tobacco Screening? 11/14/2021 MIGRATION.0107 [id number] Information not available 06/01/2022 Do You Have Any Pets? Yes MIGRATION.0107 [id number] Information not available 06/01/2022 Do You Use Your Seat Belt Or Car Seat Routinely? Yes MIGRATION.0107 [id number] Information not available 06/01/2022 Do You Have Smoke And Carbon Monoxide Detectors In Your Home? Yes MIGRATION.0107 [id number] Information not available 06/01/2022 At What Age Did You Start Smoking Tobacco? 17 MIGRATION.010 509482 Information not available 06/01/2022 Are You Passively Exposed To Smoke? Yes MIGRATION.0107 [id number] Information not available 06/01/2022 Do You Or Have You Ever Used Smokeless Tobacco? Never Used Smokeless Tobacco MIGRATION.0107 [id number] Information not available 06/01/2022 Are There Any Smokers In Your House? No MIGRATION.0107 [id number] Information not available 06/01/2022 How Much Tobacco Do You Smoke? 1 PPW Smokes 1 Ciggerettes A Week MIGRATION.0107 079038 Information not available 06/01/2022 Do You Feel Stressed (tense, Restless, Nervous, Or Anxious, Or Unable To Sleep At Night)? [id number] MIGRATION.0107 812330 Information not available 06/01/2022 Do You Use Sunscreen Routinely? No MIGRATION.0107 575434 Information not available 06/01/2022 How Many Years Have You Smoked Tobacco? 30 MIGRATION.0107 062890 Information not available 06/01/2022 Have You Recently Traveled Abroad? No MIGRATION.7 051522 Information not available 06/01/2022 Sex: Unknown Functional Status Question Answer Note LastModified by Organizat ion Details LastModified Time What is your exercise level? Moderate [id number] Information not available 06/01/2022 Mental Status None recorded. Family History Relationship Description Onset Age of this Age Resolved Age Notes LastModified by Organization Details LastModified Time Father Kidney disease MIGRATION.929 [id number] Not available 06/01/2022 21:39:29 Father Hypertensive disorder MIGRATION.879 [id number] Not available 06/01/2022 21:39:30 Father Malignant neoplasm of brain MIGRATION.263 [id number] Not available 06/01/2022 21:39:30 Mother Hypertensive disorder MIGRATION.632 [id number] Not available 06/01/2022 21:39:30 Mother Diabetes mellitus MIGRATION.321 [id number] Not available 06/01/2022 21:39:30 Sister Hypertensive disorder MIGRATION.704 [id number] Not available 06/01/2022 21:39:30 Sister Diabetes mellitus MIGRATION.943 [id number] Not available 06/01/2022 21:39:30 Brother Hypertensive disorder MIGRATION.816 [id number] Not available 06/01/2022 21:39:30 Brother Diabetes mellitus MIGRATION.024 [id number] Not available 06/01/2022 21:39:30 Medical History Condition Response NERVE DISEASE N BLINDNESS N RHEUMATIC FEVER N KIDNEY STONES N BLADDER PROBLEMS N OTHER # 1 N POLIO N LUNG DISEASE/DISORDER N COPD Y RADIATION / CHEMOTHERAPY N Other # 2 N BLOOD DISEASES N SURGERY N EAR OR HEARING PROBLEMS N MUMPS N DEPRESSION (INCLUDING POST ) N BOWEL PROBLEMS Y STROKE/TIA N ULCERS N BENIGN PROSTATIC HYPERPLASIA N MEASLES N MYOCARDIAL INFARCTION N OBESITY N GERD/NAUSEA N ANEURYSM N URINARY/BLADDER/KIDNEY PROBLEMS N CORONARY ARTERY DISEASE (CAD) N INPATIENT PSYCH CARE N ADDICTION CONCERNS N Impotence N ENDOMETRIOSIS N USE OF BLOOD THINNERS N SKIN PROBLEMS N GASTROINTESTINAL DISORDER N PERIPHERAL VASCULAR DISEASE N MUSCLE,JOINT OR BONE PROBLEMS N GASTROINTESTINAL BLEEDING N BLOOD CLOTS N ASTHMA N CATARACTS N ERECTILE DYSFUNCTION N VARICOSITIES N GI PROBLEMS Y Low Testosterone N INFERTILITY N AIDS/HIV N LIVER DISEASE N MALE HYPOGONADISM N HYPERTENSION Y Deficiency N ANXIETY DISORDER N BLOOD TRANSFUSION N ANEMIA/BLOOD DISORDER N CHRONIC EAR INFECTIONS N BRONCHITIS N TUBERCULOSIS N GLAUCOMA N DIVERTICULITIS N SLEEP APNEA N CHICKENPOX N INFECTIOUS DISEASE N PROSTATE N HEART ARRHYTHMIA N INSOMNIA N HIGH CHOLESTEROL / HYPERLIPIDEMIA N EYE PROBLEMS N HYPERTHYROIDISM N NEUROLOGICAL PROBLEMS N EDEMA N CHRONIC PAIN SYNDROME N HYPOTHYROIDISM N CAROTID BLOCKAGE N CONSTIPATION N BACK / NECK PROBLEMS N HAVE YOU BEEN HOSPITALIZED OR SEEN IN [facility] IN THE PAST YEAR ? Y ATHEROSCLEROSIS N BREAST PROBLEMS N DIALYSIS N ECZEMA N OSTEOPOROSIS N ARTHRITIS N APPENDICITIS N DIABETES, TYPE N BAD TEETH N ENT N HEARTBURN / REFLUX N AUTISM SPECTRUM DISORDER (ASD) N HEPATITIS / LIVER DISEASE N PULMONARY DISEASE N GOUT N SLEEP DISORDER N ALZHEIMER'S DISEASE N Brain Problems N DEMENTIA N HERPES N SEIZURES/EPILEPSY N HEADACHES/MIGRAINES N VASCULAR DISEASE N PACEMAKER N Blood Disorder N DIZZINESS N HEART DISEASE/HEART PROBLEMS Y KIDNEY DISEASE N MULTIPLE SCLEROSIS N CANCER: SPECIFY N CARDIAC ARRHYTHMIA N ANESTHESIA COMPLICATIONS N ATRIAL FIBRILLATION N Gall Stones N PULMONARY EMBOLISM N AUTOIMMUNE DISEASE N ABDOMINAL PAIN N Immunizations Vaccine Type Date Status Note Provider Nam e and Address Organization Details Recorded Time COVID-19, mRNA, LNP-S, PF, 30 mcg/0.3 mL dose 12/25/2020 completed Not Available Counts include 234 beds at the [facility] 21:54:46 COVID-19, mRNA, LNP-S, PF, 30 mcg/0.3 mL dose 12/04/2020 completed Not Available [facility] 21:54:46 Influenza, split virus, quadrivalent, PF 04/06/2021 completed Not Available [facility] 3 21:54:46 Influenza, split virus, quadrivalent, PF 05/06/2022 completed Not Available [facility] 3 21:54:46 Past Encounters Encounter ID Performer Location Encounter Start Date Encounter Closed Date Diagnosis/Indication Diagnosis SNOMED-CT Code Diagnosis ICD10 Code Diagnosis Note [id number] _ATHENA_M IGRATION_ DEFAULT_1 _5 , 08/01/2020 00:00:00 08/01/2020 16:37:44 [id number] DISP_RB GASTROENT EROLOGY [address] [facility], [address] [place] [address] 09/20/2020 00:00:00 09/20/2020 15:25:02 [id number] _ATHENA_M IGRATION_ DEFAULT_1 _5 , 11/03/2020 00:00:00 11/03/2020 17:00:30 [id number] _ATHENA_M IGRATION_ DEFAULT_1 _5 , 11/09/2020 00:00:00 11/09/2020 09:53:13 [id number] _ATHENA_M IGRATION_ DEFAULT_1 _5 , 01/01/2021 00:00:00 01/01/2021 22:08:04 [id number] _ATHENA_M IGRATION_ DEFAULT_1 _5 , 02/05/2021 00:00:00 02/05/2021 20:36:33 [id number] _ATHENA_M IGRATION_ DEFAULT_1 _5 , 03/05/2021 00:00:00 03/05/2021 17:43:24 [id number] _ATHENA_M IGRATION_ DEFAULT_1 _5 , 03/05/2021 00:00:00 03/05/2021 15:11:04 [id number] _ATHENA_M IGRATION_ DEFAULT_1 _5 , 03/16/2021 00:00:00 03/16/2021 15:46:45 [id number] _ATHENA_M IGRATION_ DEFAULT_1 _5 , 04/06/2021 00:00:00 04/06/2021 11:56:13 [id number] _ATHENA_M IGRATION_ DEFAULT_1 _5 , 05/04/2021 00:00:00 05/04/2021 14:43:21 [id number] _ATHENA_M IGRATION_ DEFAULT_1 _5 , 06/15/2021 00:00:00 06/15/2021 17:13:13 [id number] _ATHENA_M IGRATION_ DEFAULT_1 _5 , 06/18/2021 00:00:00 10/12/2021 15:07:07 [id number] _ATHENA_M IGRATION_ DEFAULT_1 _5 , 07/11/2021 00:00:00 07/11/2021 15:09:46 [id number] _ATHENA_M IGRATION_ DEFAULT_1 _5 , 11/14/2021 00:00:00 11/14/2021 10:20:15 [id number] _ATHENA_M IGRATION_ DEFAULT_1 _5 , 05/06/2022 00:00:00 05/06/2022 16:43:34 Health Concerns Section Related Observation LastModified by Organization Detai ls LastModified Time None Recorded Concern Status LastModified by Organization Details LastModified Time None Recorded Advance Directives Directive N: Payers None recorded.
--- OUTSIDE RECORDS SUMMARY | 2024-06-06 03:21 | XMS_ITS | Encounter Summary ---
Author Organization [facility] Address [address] [place] [address]. [place], [place] [address] [place] [address] Care Team Providers Care Glassware Selector Name Role Phone Hemant Lopez MD Primary Care Provider Encounter Details Date Type Department Care Team (Latest Contact Info) Description 07/18/2019 Travel Social History Tobacco Use Types Packs/Day Years [...] Diagnoses Not on filedocumented in this encounter Care Teams Glassware Selector Relationship Specialty Start Date End Date Hemant Lopez MD PCP - General 04/09/16 02/15/24 documented as of this encounter
--- OUTSIDE RECORDS SUMMARY | 2024-06-06 03:21 | XMS_ITS | Encounter Summary ---
Author Organization [facility] Address [address] [place] [address]. [place], [place] [id number] [place] [id number] Care Team Providers Care Equipment Validation Engineer Name Role Phone Hemant Connors MD Primary Care Provider + [phone] Reason for Referral * Imaging (Emergency) - Closed Specialty Diagnoses / Procedures Referred By Contac t Referred To Contact Procedures CT ABD+PEL W CON Uday Akers MD [address] [address] Phone: tel: fax: Referral ID Status Reason Start Date Expiration Date Visits Re quested Visits Authorized [id number] Closed 08/29/2018 09/29/2019 1 1 Reason for Visit * Reason Comments Blood In Stool Vomiting * Auth/Cert Specialty Diagnoses / Procedures Referred By Contac t Referred To Contact Diagnoses Crohn's disease ([facility]) Crohn's colitis ([facility]) Procedures INPT Referral ID Status Reason Start Date Expiration Date Visits Re quested Visits Authorized [id number] 1 1 Encounter Details Date Type Department Care Team (Late st Contact Info) Description 08/29/2018 1:28 AM CDT - 08/31/2018 10:38 AM CDT Hospital Encounter [facility] [place] [address] Uday Akers MD [address] [address] Zac Farris MD [address] [place] [address] [phone] (Work) [place] [address] [phone] (Work) Blood In Stool; Vomiting Discharge Disposition: Home or Self Care (Routine [...] Sign Reading Time Taken Comments Blood Pressure 152/74 08/31/2018 8:18 AM CDT Pulse 63 08/31/2018 8:18 AM CDT Temperature 37 ??C (98.6 ??F) 08/31/2018 8:18 AM CDT Respiratory Rate 16 08/31/2018 4:21 AM CDT Oxygen Saturation 100% 08/31/2018 8:18 AM CDT Inhaled Oxygen Concentration - - Weight 63.8 kg (140 lb 10.5 oz) 08/30/2018 5:49 AM CDT Height 170.2 cm (5' 7 ) 08/29/2018 1:03 AM CDT Body Mass Index 22.03 08/29/2018 1:03 AM CDT documented in this encounter Discharge Summaries * Hernando Gonsalez MD - 08/31/2018 10:25 AM CDT Hospitalist Discharge Summary Patient ID: Cirilo Chicas. male. 1965. Admit date: 08/29/2018 1:28 AM Discharge date and time: 08/31/18 Admitting Physician: Zac Farris MD Attending Physician: Hernando Gonsalez MD Primary Care Physician: HEMANT CONNORS MD Discharge Physician: HERNANDO GONSALEZ MD Primary Diagnoses during this admission: Crohn's colitis Chronic Diagnoses: Intrahepatic ductal dilatation Hypertension Admission Condition: fair Discharged Condition: Good Hospital Course: Patient is a 52-year-old male with a history of Crohn's colitis was admitted for nausea, vomiting, worsening his chronic diarrhea. There was concern this may be related to his Crohn's. Patient was admitted, given IV steroids here. CT abdomen was done. GI was consulted. Patient improved significantly with IV steroids. GI cleared patient for discharge by 08/31/2018. Patient was given a 4-week course of p.o. steroids per GI. Outpatient follow up with GI service to monitor intrahepatic ductal dilation that was seen on imaging. I am forwarding discharge summary to PCP. Consults: GI Significant Diagnostic Studies: Recent Labs Lab 08/29/18 0326 08/30/18 1017 WBC 7.0 9.1 RBC 3.60* 3.92* HGB 11.3* 12.2* HCT 33.4* 37.1* MCV 92.8 94.6* MCH 31.4* 31.1* MCHC 33.8 32.9 PLT 271 285 RDW 14.5 14.5 MPV 7.7* 8.9* PERNEU 63.5 -- PERLYM 29.1 -- PERMON 6.9 -- LYMC 2.02 -- MONOC 0.48 -- EOSC 0.02* -- BASOC 0.01 -- DTYPE AUTOMATED DIFFERENTIAL MANUAL DIFFERENTIAL Recent Labs Lab 08/29/18 0251 08/30/18 1017 NA 137 137 K 3.3* 3.8 CL 106 106 CO2 23.8 26.5 AGAP 10.5 8.3 BUN 5* 14 CR 1.06 1.28 BUNCREATININ 4.7* 10.9 GFRNON 80* 64* GFR >90 74* GLU 96 142* CA 8.4* 8.5 TP 6.6 6.9 ALB 3.2* 3.0* TBIL 0.4 0.1* ALKP 94 94 AST 12* 12* ALT 20 20 No results for input(s): CHOL, TRI, HDL, LDL, HGBA1C, TSH in the last 168 hours. Recent Labs Lab 08/29/18 0251 INR 1.0 No results for input(s): TROP, TROPIWB, CKMB, CPK in the last 168 hours. No results for input(s): LACTICACID, PROCT in the last 168 hours. No results for input(s): PH, PCO2, PO2, E9SAKKWSLAEZ, BICARBWB, BASEDEFICIT, BASEEXCESS in the ormb580 hours. No results found for this or any previous visit. Radiology Reports : No results found. Discharge Exam: Filed Vitals: 08/30/18 2255 08/31/18 0055 08/31/18 0421 08/31/18 0818 BP: (!) 164/96 153/86 143/71 152/74 Pulse: 64 80 63 63 Resp: 18 16 16 Temp: 98.3 ??F (36.8 ??C) 98.6 ??F (37 ??C) TempSrc: Oral Oral SpO2: 100% 98% 100% Weight: Height: General: In no acute distress, resting comfortably Discharge Medications: Medication List START taking these medications predniSONE 10 mg tablet Commonly known as: DELTASONE Take 4 tablets (40 mg total) by mouth 3 (three) times a day for 3 days, THEN 4 tablets (40 mg total) 2 (two) times a day for 3 days, THEN 4 tablets (40 mg total) daily for 3 days, THEN 2 tablets (20 mg total) 2 (two) times a day for 3 days, THEN 2 tablets (20 mg total) daily for 3 days, THEN 1 tablet (10 mg total) daily for 3 days, THEN 0.5 tablets (5 mg total) daily for 10 days. Start taking on: 08/31/2018 Where to Get Your Medications You can get these medications from any pharmacy Bring a paper prescription for each of these medications ?? predniSONE 10 mg tablet Disposition: Home with self care Total time spent on discharge process: >30 minutes Signed: HERNANDO GONSALEZ MD documented in this encounter Discharge Instructions * Discharge Instructions* Kvng Muniz RN - 08/31/2018 10:11 AM CDT Images from the original note were not included. Patient Education Crohn's Disease Diet About this topic Crohn's disease is a long-term illness that may cause redness, swelling, and irritation of the digestive tract. Your digestive tract includes the mouth, swallowing tube (esophagus), stomach, and small intestine. Eating a healthy diet is an important part of your care. You may not be able to digest and absorb all the food you eat. You may need more of some vitamins and minerals. What will the results be? This diet may help you tolerate foods. It may help prevent belly pain and loose stools. What changes to diet are needed? ?? Eat small meals or snacks every 3 or 4 hours and avoid skipping meals. ?? Drink at least 8 cups of fluid each day. You may want to drink more slowly and avoid using a straw. ?? Eat a low fiber diet if you are having belly pain and loose stools. When your loose stools get better you may try to add whole grain foods in your diet slowly. ?? Talk with a dietitian about what foods are good for you to eat. ?? Ask your doctor or dietitian about taking a multivitamin. What foods are good to eat? ?? Fat-free milk; lactose-free milk; smooth nonfat or low-fat yogurt; low-fat cheese like cheddar, Qatari, or parmesan; low-fat ice cream; and sherbet ?? Tender, well-cooked meats, poultry, fish, eggs without added fat. Smooth peanut butter is good too. ?? Bread, bagels, rolls, crackers, cereals, and pastas made with white flour. White rice, cream of wheat, and other low fiber cereals which are most often made from corn or rice. ?? Well-cooked vegetables without seeds or skins. Green beans, carrots, and potatoes without skin are good for you. ?? Ripe bananas or melons, peeled apple, canned and soft fruits ?? Limit fats and oils to 8 teaspoons per day. What foods should be limited or avoided? ?? Fruit yogurt or yogurt with granola, whole milk, half and half, cream, sour cream, and ice cream. Low fat or no fat ice cream or sour cream are OK. ?? Fried eggs and fried meat, sausage and victor, lunch meats like bologna or salami, hot dogs, tough or chewy cuts of meats like grilled steak or pork chops, dried beans, peas, nuts, and chunky peanut butter ?? Whole wheat or whole grain breads, rolls, crackers, or pasta. Brown rice, wild rice, quinoa, andcereals made from whole grains, such as oatmeal or high- fiber cereals ?? Popcorn ?? Gas-forming and high-fiber vegetables such as beets, broccoli, Brussel sprouts, cabbage and sauerkraut, cauliflower, corn, greens, peas, patel beans, mushrooms, okra, onions, peppers, potato skins,spinach, and winter squash ?? Raw fruits, dried fruits, and prune juice ?? Drinks with caffeine, such as coffee, tea, cola, and some sport drinks ?? Alcoholic drinks ?? Sweet fruit juices and soft drinks or other drinks made with sugar or corn syrup. Other sweeteners like sorbitol, mannitol, or xylitol because they can cause loose stools. When do I need to call the doctor? ?? Signs of fluid loss. These include dark-colored urine or no urine for more than 8 hours, dry mouth, cracked lips, sunken eyes, lack of energy, feeling faint, or passing out. ?? Loose stools for more than 24 hours ?? Not tolerating food or throwing up after meals ?? Very bad belly pain Where can I learn more? Crohn???s Disease and Diet http://www.eatright.org/resource/health/wellness/digestive-health/crohns-disease -and-diet Eating, Diet, and Nutrition for Crohn???s Disease https://www.niddk.nih.gov/health-information/digestive-diseases/crohns-disease/e qqqcq-uoqh-gpacrlhly Last Reviewed Date 2017-06-22 Consumer Information Use and Disclaimer This information is not specific medical advice and does not replace information you receive from your health care provider. This is only a brief summary of general information. It does NOT include all information about conditions, illnesses, injuries, tests, procedures, treatments, therapies, discharge instructions or lifestyle choices that may apply to you. You must talk with your health care provider for complete information about your health and treatment options. This information should not be used to decide whether or not to accept your health care provider???s advice, instructions, or recommendations. Only your health care provider has the knowledge and training to provide advice that is right for you. Copyright Copyright ?? 2018 [employer]. and its affiliates and/or licensors. All rights reserved. Patient Education Crohn's Disease Discharge Instructions About this topic Crohn's disease is a long-term illness that may cause redness, swelling, and irritation of the digestive tract. Your digestive tract includes the mouth, swallowing tube or esophagus, stomach, and small intestine. It most often bothers a part of the small intestines called the ileum. The swelling caused by this illness can cause belly pain, fever, loss of appetite, loose stools, blood in the stool, and pain when having a stool. Treatment may include drugs and good nutrition. Sometimes, you may need to have surgery. What care is needed at home? ?? Ask your doctor what you need to do when you go home. Make sure you ask questions if you do not understand what the doctor says. This way you will know what you need to do. ?? Make sure to take all the drugs ordered by your doctor. ?? Your doctor may give you extra vitamins. Take them as ordered by your doctor. ?? Keep notes of what you eat. Watch for foods that may cause you to feel worse or make your illness worse. Avoid these foods in the future. ?? Learn how to manage stress. Ask your doctor about breathing exercises and relaxation techniques.Support groups are available to help you to deal with Crohn's. They offer support related to diet and other concerns. ?? Get lots of rest so that your body can heal and absorb nutrients. ?? Your doctor might need to form an ileostomy or colostomy. Your doctor will talk about this with you if you need this type of surgery. An ileostomy needs special care. Your doctor will provide a special nurse, called an enterostomal therapist, to help you care for the ostomy. What follow-up care is needed? ?? Your condition needs close monitoring. Your doctor may ask you to make visits to the office to check on your progress. Be sure to keep these visits. ?? Your doctor will tell you if other tests are needed. ?? Your doctor may send you to a specialist. ?? Visit a mental health doctor to talk about your worries and fears. ?? Keep drinking fluids so your body does not lose too much. Drink at least 6 to 8 cups (1500 to 1900 mL) of fluid each day. This is very important when you have loose stools so you do not become dehydrated. Drink small amounts of fluids as you are able. Good things to drink are water, rehydration drinks, and caffeine free soda or tea. Limit sugary drinks and sugar substitutes. What drugs may be needed? The doctor may order drugs to: ?? Reduce swelling of the bowel ?? Help with pain ?? Prevent or fight an infection ?? Lessen your immune system so that it does not attack its own tissues. IV treatments are used to give these drugs. The drugs lessen your body's ability to fight other infections. Avoid crowds and people who have colds and other infections while you are receiving the treatments. You can get sick easily. ?? Treat loose or hard stool Will physical activity be limited? Your belly pain or loose stools may make you want to be less active. Rest until you are feeling better. What changes to diet are needed? ?? Talk to a dietitian about the best diet for your illness. ?? You may not be able to digest and absorb all of the foods you eat. ?? Eat small meals or snacks every 3 to 4 hours. Try not to skip any meals. ?? Stay away from fatty, greasy, or fried foods. ?? Dairy products cause problems with some patients. Take extra care or eat small amounts of cheeseand milk if you have a history of an upset stomach after eating them. ?? Stay away from foods that are high in fiber. They can cause gas. Foods like beans, nuts, whole grains, popcorn, and some fruits and vegetables are high in fiber. ?? When your illness is acting up, eat bland foods such as rice, potatoes, and other foods that areeasy to digest. Drinks high in calories are good when it is hard to eat solid food. ?? Pay attention to how you feel after you eat. You will learn which foods cause you problems with your stomach. Eat healthy foods that do not upset your stomach or cause cramping and loose stools. ?? Stop smoking to help lessen the risk of problems and flare-ups. What problems could happen? ?? Poor nutrition ?? Weight loss ?? Weak bones ?? Infection ?? Block in the intestine ?? Hole in the digestive tract ?? More risk of cancer in the intestines When do I need to call the doctor? ?? Signs of infection. These include a fever of 100.4??F (38??C) or higher, chills, wound that willnot heal. ?? Very bad belly pain ?? Loose bowel movements of more than 6 times in 24 hours with throwing up ?? Black or bloody stools ?? You are having problems coping with your illness ?? You are not feeling better in 2 to 3 days or you are feeling worse Helpful tips ?? Keep a list of foods that make you sick. This may help with the choices you make. ?? When eating out, ask about the ingredients used in your food. ?? Avoid drinking alcohol and caffeine. These may worsen your belly pain. ?? Join support groups to get to know other people who have coped with the condition. Teach Back: Helping You Understand The Teach Back Method helps you understand the information we are giving you. The idea is simple. After talking with the staff, tell them in your own words what you were just told. This helps to makesure the staff has covered each thing clearly. It also helps to explain things that may have been abit confusing. Before going home, make sure you are able to do these: ?? I can tell you about my condition. ?? I can tell you what changes I need to make with my diet or drugs. ?? I can tell you what I will do if I have very bad belly pain or black or bloody stools. Where can I learn more? Crohn's & Colitis Foundation of [place] http://www.ccfa.org/info/about/crohns Crohn's & Colitis Foundation of [place] http://www.crohnscolitisfoundation.org/resources/vfzj-gptwgtxta-top-2013.pdf National Digestive Diseases Information Clearinghouse http://digestive.niddk.nih.gov/ddiseases/pubs/crohns/ Last Reviewed Date 2016-12-11 Consumer Information Use and Disclaimer This information is not specific medical advice and does not replace information you receive from your health care provider. This is only a brief summary of general information. It does NOT include all information about conditions, illnesses, injuries, tests, procedures, treatments, therapies, discharge instructions or life-style choices that may apply to you. You must talk with your health care provider for complete information about your health and treatment options. This information should not be used to decide whether or not to accept your health care provider???s advice, instructions or recommendations. Only your health care provider has the knowledge and training to provide advice that is right for you. Copyright Copyright ?? 2019 [employer]. and its affiliates and/or licensors. All rights reserved. Patient Education Crohn's Disease Discharge Instructions About this topic Crohn's disease is a long-term illness that may cause redness, swelling, and irritation of the digestive tract. Your digestive tract includes the mouth, swallowing tube or esophagus, stomach, and small intestine. It most often bothers a part of the small intestines called the ileum. The swelling caused by this illness can cause belly pain, fever, loss of appetite, loose stools, blood in the stool, and pain when having a stool. Treatment may include drugs and good nutrition. Sometimes, you may need to have surgery. What care is needed at home? ?? Ask your doctor what you need to do when you go home. Make sure you ask questions if you do not understand what the doctor says. This way you will know what you need to do. ?? Make sure to take all the drugs ordered by your doctor. ?? Your doctor may give you extra vitamins. Take them as ordered by your doctor. ?? Keep notes of what you eat. Watch for foods that may cause you to feel worse or make your illness worse. Avoid these foods in the future. ?? Learn how to manage stress. Ask your doctor about breathing exercises and relaxation techniques.Support groups are available to help you to deal with Crohn's. They offer support related to diet and other concerns. ?? Get lots of rest so that your body can heal and absorb nutrients. ?? Your doctor might need to form an ileostomy or colostomy. Your doctor will talk about this with you if you need this type of surgery. An ileostomy needs special care. Your doctor will provide a special nurse, called an enterostomal therapist, to help you care for the ostomy. What follow-up care is needed? ?? Your condition needs close monitoring. Your doctor may ask you to make visits to the office to check on your progress. Be sure to keep these visits. ?? Your doctor will tell you if other tests are needed. ?? Your doctor may send you to a specialist. ?? Visit a mental health doctor to talk about your worries and fears. ?? Keep drinking fluids so your body does not lose too much. Drink at least 6 to 8 cups (1500 to 1900 mL) of fluid each day. This is very important when you have loose stools so you do not become dehydrated. Drink small amounts of fluids as you are able. Good things to drink are water, rehydration drinks, and caffeine free soda or tea. Limit sugary drinks and sugar substitutes. What drugs may be needed? The doctor may order drugs to: ?? Reduce swelling of the bowel ?? Help with pain ?? Prevent or fight an infection ?? Lessen your immune system so that it does not attack its own tissues. IV treatments are used to give these drugs. The drugs lessen your body's ability to fight other infections. Avoid crowds and people who have colds and other infections while you are receiving the treatments. You can get sick easily. ?? Treat loose or hard stool Will physical activity be limited? Your belly pain or loose stools may make you want to be less active. Rest until you are feeling better. What changes to diet are needed? ?? Talk to a dietitian about the best diet for your illness. ?? You may not be able to digest and absorb all of the foods you eat. ?? Eat small meals or snacks every 3 to 4 hours. Try not to skip any meals. ?? Stay away from fatty, greasy, or fried foods. ?? Dairy products cause problems with some patients. Take extra care or eat small amounts of cheeseand milk if you have a history of an upset stomach after eating them. ?? Stay away from foods that are high in fiber. They can cause gas. Foods like beans, nuts, whole grains, popcorn, and some fruits and vegetables are high in fiber. ?? When your illness is acting up, eat bland foods such as rice, potatoes, and other foods that areeasy to digest. Drinks high in calories are good when it is hard to eat solid food. ?? Pay attention to how you feel after you eat. You will learn which foods cause you problems with your stomach. Eat healthy foods that do not upset your stomach or cause cramping and loose stools. ?? Stop smoking to help lessen the risk of problems and flare-ups. What problems could happen? ?? Poor nutrition ?? Weight loss ?? Weak bones ?? Infection ?? Block in the intestine ?? Hole in the digestive tract ?? More risk of cancer in the intestines When do I need to call the doctor? ?? Signs of infection. These include a fever of 100.4??F (38??C) or higher, chills, wound that willnot heal. ?? Very bad belly pain ?? Loose bowel movements of more than 6 times in 24 hours with throwing up ?? Black or bloody stools ?? You are having problems coping with your illness ?? You are not feeling better in 2 to 3 days or you are feeling worse Helpful tips ?? Keep a list of foods that make you sick. This may help with the choices you make. ?? When eating out, ask about the ingredients used in your food. ?? Avoid drinking alcohol and caffeine. These may worsen your belly pain. ?? Join support groups to get to know other people who have coped with the condition. Teach Back: Helping You Understand The Teach Back Method helps you understand the information we are giving you. The idea is simple. After talking with the staff, tell them in your own words what you were just told. This helps to makesure the staff has covered each thing clearly. It also helps to explain things that may have been abit confusing. Before going home, make sure you are able to do these: ?? I can tell you about my condition. ?? I can tell you what changes I need to make with my diet or drugs. ?? I can tell you what I will do if I have very bad belly pain or black or bloody stools. Where can I learn more? Crohn's & Colitis Foundation of [place] http://www.ccfa.org/info/about/crohns Crohn's & Colitis Foundation of [place] http://www.crohnscolitisfoundation.org/resources/losp-ugjnhmrqd-ebg-2013.pdf National Digestive Diseases Information Clearinghouse http://digestive.niddk.nih.gov/ddiseases/pubs/crohns/ Last Reviewed Date 2016-12-11 Consumer Information Use and Disclaimer This information is not specific medical advice and does not replace information you receive from your health care provider. This is only a brief summary of general information. It does NOT include all information about conditions, illnesses, injuries, tests, procedures, treatments, therapies, discharge instructions or life-style choices that may apply to you. You must talk with your health care provider for complete information about your health and treatment options. This information should not be used to decide whether or not to accept your health care provider???s advice, instructions or recommendations. Only your health care provider has the knowledge and training to provide advice that is right for you. Copyright Copyright ?? 2019 [employer]. and its affiliates and/or licensors. All rights reserved. documented in this encounter Medications at Time of Discharge predniSONE 10 mg tablet Take 4 tablets (40 mg total) by mouth 3 (three) times a day for 3 days, THEN 4 tablets (40 mg total) 2 (two) times a day for 3 days, THEN 4 tablets (40 mg total) daily for 3 days, THEN 2 tablets (20 mg total) 2 (two) times a day for 3 days, THEN 2 tablets (20 mg total) daily for 3 days, THEN 1 tablet (10 mg total) daily for 3 days, THEN 0.5 tablets (5 mg total) daily for 10 days. 98 tablet 08/31/2018 09/28/2018 documented as of this encounter Progress Notes * Liberty Garcia RN - 08/31/2018 10:38 AM CDT MR CHICAS IS A 52-YEAR-OLD MALE THAT WAS ADMITTED FOR CROHN'S COLITIS. PATIENT LIVES AT HOME AND [place]. PATIENT DISCHARGED BEFORE RNCM COULD VISIT WITH PATIENT. NO FURTHER RESEARCH EXECUTIVE INTERVENTION REQUIRED. CASE CLOSED * Kvng Muniz RN - 08/31/2018 10:02 AM CDT Problem: Discharge Planning Goal: Knowledge of discharge instructions Outcome: Adequate for Discharge Date Met: 08/31/18 Cirilo is planning on being discharged today Problem: Constipation Goal: Bowel elimination within specified parameters Outcome: Adequate for Discharge Date Met: 08/31/18 Cirilo has been having frequent bowel movements Problem: Diarrhea Goal: Bowel elimination within specified parameters Outcome: Adequate for Discharge Date Met: 08/31/18 Cirilo's diarrhea has been controlled with Imodium * Lin iTdwell RN - 08/31/2018 1:06 AM CDT Problem: Nausea/Vomiting Goal: Absence of nausea/vomiting Outcome: Met This Shift No complaints of nausea or vomiting during this shift Problem: Pain - Acute Goal: Achieve acceptable pain level Outcome: Met This Shift Has achieved acceptable pain level this shift * Hernando Gonsalez MD - 08/30/2018 3:17 PM CDT Hospitalist Daily Progress Note Subjective Patient was seen and examined earlier today He was doing well Abd pain improved Trying to eat regular food Objective Filed Vitals: 08/29/18 0719 08/29/18 2040 08/30/18 0549 08/30/18 0710 BP: 147/89 139/77 135/76 Pulse: 74 74 63 Resp: 18 16 18 Temp: 98 ??F (36.7 ??C) 98 ??F (36.7 ??C) 98.4 ??F (36.9 ??C) TempSrc: Oral Oral Oral SpO2: 97% 97% 97% Weight: 63.8 kg (140 lb 10.5 oz) Height: Physical Exam: -GENERAL: No acute distress, breathing comfortably on room air. -EYES: Extraocular movements intact -ENT: Neck supple, Septum is midline. -LUNG: Clear to auscultation bilaterally, No wheezes, No crackles -CVS: Regular rate rhythm, S1 and S2 normal, No murmurs, -ABDOMEN: Soft, nondistended, Nontender, Bowel sounds observed -EXT: no lower Ext edema. -NEURO: Alert, awake, oriented x3, No gross neuro deficit -SKIN: Skin color, texture, turgor normal. No rashes or lesions Intake/Output 24H Total: Intake/Output Summary (Last 24 hours) at 08/30/2018 1520 Last data filed at 08/30/2018 1224 Gross per 24 hour Intake 1440 ml Output -- Net 1440 ml Medication ??? famotidine 20 mg Intravenous 2 times per day Or ??? famotidine 20 mg Oral 2 times per day ??? methylPREDNISolone 40 mg Intravenous Q8H acetaminophen, hydrocodone-acetaminophen, morphine, ondansetron Labs: Recent Labs Lab 08/29/18 0326 08/30/18 1017 WBC 7.0 9.1 RBC 3.60* 3.92* HGB 11.3* 12.2* HCT 33.4* 37.1* MCV 92.8 94.6* MCH 31.4* 31.1* MCHC 33.8 32.9 PLT 271 285 RDW 14.5 14.5 MPV 7.7* 8.9* PERNEU 63.5 -- PERLYM 29.1 -- PERMON 6.9 -- LYMC 2.02 -- MONOC 0.48 -- EOSC 0.02* -- BASOC 0.01 -- DTYPE AUTOMATED DIFFERENTIAL MANUAL DIFFERENTIAL Recent Labs Lab 08/29/18 0251 08/30/18 1017 NA 137 137 K 3.3* 3.8 CL 106 106 CO2 23.8 26.5 AGAP 10.5 8.3 BUN 5* 14 CR 1.06 1.28 BUNCREATININ 4.7* 10.9 GFRNON 80* 64* GFR >90 74* GLU 96 142* CA 8.4* 8.5 TP 6.6 6.9 ALB 3.2* 3.0* TBIL 0.4 0.1* ALKP 94 94 AST 12* 12* ALT 20 20 No results for input(s): CHOL, TRI, HDL, LDL, HGBA1C, TSH in the last 168 hours. Recent Labs Lab 08/29/18 0251 INR 1.0 No results for input(s): TROP, TROPIWB, CKMB, CPK in the last 168 hours. No results for input(s): LACTICACID, PROCT in the last 168 hours. No results for input(s): PH, PCO2, PO2, [id number], BICARBWB, BASEDEFICIT, BASEEXCESS in the [id number] hours. No results found for this or any previous visit. X-Ray No results found. Assessment & Plan: Crohn's colitis: ?? Patient admitted to the medical floor Keep patient n.p.o. IV fluids, pain control, antiemetics Patient started on IV steroids, continue Consulted GI - they are following patient ?? Intrahepatic ductal dilatation: ?? LFTs within normal limits GI consulted ?? Hypertension: ?? Resume home medications once verified Blood pressure 135/76 ?? Hernando Gonsalez MD 08/30/2018 3:20 PM * Gina Rosenbaum RN - 08/30/2018 10:52 AM CDT Problem: Nausea/Vomiting Goal: Absence of nausea/vomiting Outcome: Progressing Patient has not had any episodes of nausea or vomiting this shift * GRZEGORZ Delacruz - 08/30/2018 7:00 AM CDT GASTROENTEROLOGY PROGRESS NOTE Interval History: Patient examined today. Tolerating PO intake without nausea or vomiting. Reports resolving abdominal pain. Physical Exam: Filed Vitals: 08/29/18 0719 08/29/18 2040 08/30/18 0549 08/30/18 0710 BP: 147/89 139/77 135/76 Pulse: 74 74 63 Resp: 18 16 18 Temp: 98 ??F (36.7 ??C) 98 ??F (36.7 ??C) 98.4 ??F (36.9 ??C) TempSrc: Oral Oral Oral SpO2: 97% 97% 97% Weight: 63.8 kg (140 lb 10.5 oz) Height: General: In NAD, pleasant and appropriate HEENT: Anicteric Cardiovascular: RRR, no m Pulmonary: CTA BL, no added sounds Abdomen: Soft, ND/NT, normoactive BS Skin: Anicteric, no rashes Neuro: A&Ox3 Labs: Recent Labs Lab 08/29/18 0251 08/29/18 0326 08/30/18 1017 WBC -- 7.0 9.1 HGB -- 11.3* 12.2* MCV -- 92.8 94.6* PLT -- 271 285 INR 1.0 -- -- Recent Labs Lab 08/29/18 0251 08/30/18 1017 NA 137 137 K 3.3* 3.8 CL 106 106 CO2 23.8 26.5 BUN 5* 14 CR 1.06 1.28 Recent Labs Lab 08/29/18 0251 08/30/18 1017 AST 12* 12* ALT 20 20 TBIL 0.4 0.1* ALB 3.2* 3.0* Assessment & Recommendations: Patient examined today. Tolerating diet. Condition improving on steroids. Labs reviewed. Okay to discharge home and follow up as outpatient in 2 weeks. GRZEGORZ DELACRUZ Cosigned by Marta Rea MD at 08/30/2018 8:15 PM CDT * Gina Rosenbaum RN - 08/29/2018 4:22 PM CDT Problem: Nausea/Vomiting Goal: Absence of nausea/vomiting Outcome: Progressing Patient has not experienced nausea or vomiting this shift and diet has been advanced this shift documented in this encounter H&P Notes * Zac Farris MD - 08/29/2018 5:23 AM CDT Hospitalist History and Physical Patient: Cirilo Chicas Date: 08/29/2018 male, 52-year-old Admit Date: 08/29/2018 Attending: Zac Farris MD REASON FOR ADMISSION: Crohn's HISTORY OF PRESENT ILLNESS: Cirilo Chicas is a 52-year-old male With past medical history significant for hypertension, Crohn's disease, patient reported that he had 4 abdominal surgeries the last one was in June done at [facility], patient presents to our ER secondary to bleeding per rectum, patient stated that he has been having nausea and vomiting and worsening of his chronic diarrhea for the past 2 days, he thought that he had the stomach flu, could not tolerate oral intake, feeling weak, denies any fever, generalized abdominal pain 9 out of 10 in severity, today patient had bleeding per rectum so patient presents to ER where patient had a CT scan of the abdomen and pelvis which showed finding con cerning for Crohn's, patient was given IV steroids and get admitted for further evaluation and treatment. Allergy Allergies Allergen Reactions ??? Dilaudid [Hydromorphone] Itching Makes me itch every where Medication list (Not in a hospital admission) No current facility-administered medications on file prior to encounter. No current outpatient medications on file prior to encounter. Past Medical History Past Medical History: Diagnosis Date ??? Anemia ??? Bronchitis ??? Crohn disease (CMS/HCC) ??? Hypertension Past Surgical History: Procedure Laterality Date ??? APPENDECTOMY ??? HC COLON RESECTION Social History Social History Socioeconomic History ??? Marital status: Spouse name: Not on file ??? Number of children: Not on file ??? Years of education: Not on file ??? Highest education level: Not on file Occupational History ??? Not on file Social Needs ??? Financial resource strain: Not on file ??? Food insecurity: Worry: Not on file Inability: Not on file ??? Transportation needs: Medical: Not on file Non-medical: Not on file Tobacco Use ??? Smoking status: Current Every Day Smoker Packs/day: 0.25 Types: Cigarettes ??? Smokeless tobacco: Never Used Substance and Sexual Activity ??? Alcohol use: No Frequency: Never ??? Drug use: Yes Types: Cocaine ??? Sexual activity: Not on file Lifestyle ??? Physical activity: Days per week: Not on file Minutes per session: Not on file ??? Stress: Not on file Relationships ??? Social connections: Talks on phone: Not on file Gets together: Not on file Attends buddhist service: Not on file Active member of club or organization: Not on file Attends meetings of clubs or organizations: Not on file Relationship status: Not on file ??? Intimate partner violence: Fear of current or ex partner: Not on file Emotionally abused: Not on file Physically abused: Not on file Forced sexual activity: Not on file Other Topics Concern ??? Not on file Social History Narrative ??? Not on file Family History Mother: CABG Father: CAD REVIEW OF SYSTEMS: A 14 point review of systems was taken and pertinent positive as per HPI PHYSICAL EXAMINATION: Vital 24 Hour Range Most Recent Value Temperature Temp Min: 98.7 ??F (37.1 ??C) Max: 98.7 ??F (37.1 ??C) 98.7 ??F (37.1 ??C) Pulse Pulse Min: 90 Max: 98 90 Respiratory Resp Min: 18 Max: 18 18 Blood Pressure BP Min: 157/105 Max: 180/111 (!) 160/100 Pulse Oximetry SpO2 Min: 98 % Max: 100 % 100 % O2 No Data Recorded Vital Most Recent Value First Value Weight 63.8 kg (140 lb 9.6 oz) Weight: 63.8 kg (140 lb 9.6 oz) Height 5' 7 (170.2 cm) Height: 5' 7 (170.2 cm) BMI 22.1 N/A Physical Exam: -GENERAL: No acute distress, breathing comfortably on room air. -EYES: Extraocular movements intact -ENT: Neck supple, Septum is midline. -LUNG: Clear to auscultation bilaterally, No wheezes, No crackles -CVS: Regular rate rhythm, S1 and S2 normal, No murmurs, -ABDOMEN: Soft, nondistended, +ve tender, Bowel sounds observed -EXT: no lower Ext edema. -NEURO: Alert, awake, oriented x3, No gross neuro deficit -SKIN: Skin color, texture, turgor normal. No rashes or lesions Intake/Output last 3 shifts: No intake/output data recorded. Labs: Recent Labs Lab 08/29/18 0251 NA 137 K 3.3* CL 106 CO2 23.8 AGAP 10.5 BUN 5* CR 1.06 BUNCREATININ 4.7* GFRNON 80* GFR >90 GLU 96 CA 8.4* Recent Labs Lab 08/29/18 0326 WBC 7.0 RBC 3.60* HGB 11.3* HCT 33.4* MCV 92.8 MCH 31.4* MCHC 33.8 PLT 271 RDW 14.5 MPV 7.7* Recent Labs Lab 08/29/18 0251 AST 12* ALT 20 Recent Labs Lab 08/29/18 0251 INR 1.0 Invalid input(s): ABG arterial blood gases No results for input(s): TROP, TROPIWB, CPK in the last 168 hours. Invalid input(s): CK-MB No results for input(s): PH, PCO2, PO2, [id number], BICARBWB, BASEDEFICIT, BASEEXCESS in the [id number] hours. Imagining & Other Studies Ct Abd+pel W Con Result Date: 08/29/2018 IMPRESSION: 1. Distinct findings a characteristic or Crohn's disease in the terminal ileum ascending and transverse colon and distal sigmoid colon and rectum. 2. Does not result in bowel obstruction.3. Mild diffuse hepatic steatosis. 4. Unexplained intrahepatic ductal dilatation without pancreaticmass or pancreatic necrosis. 5. At some point consider nonemergent outpatient MRCP for continued evaluation if there is any serum abnormality pancreatic enzymes.. ElectronicallySigned By: Lucy De La Rosa DO, MD on 08/29/2018 4:11 AM No results found for this visit on 08/29/18. Assessment & Plan Crohn's colitis: Patient admitted to the medical floor Keep patient n.p.o. IV fluids, pain control, antiemetics Patient started on IV steroids, continue Consult GI Intrahepatic ductal dilatation: LFTs within normal limits GI consulted Hypertension: Resume home medications once verified Zac Farris MD 08/29/2018 5:23 AM documented in this encounter Consult Notes * Sonja Mcallister, RD - 08/29/2018 9:52 AM CDT A: Pt seen this date due to MST of 3; weight loss of 14-23# related to loss of appetite. Dx of crohn's colitis. He has PMH of Crohn's. Noted to have n/v/d/unable to eat prior to ED which may have resulted in undesired weight loss. Labs reviewed. Medications reviewed. Clear liquid diet with advancement as tolerated. Nutritional needs are approximately 1792kcal, 64g protein, 1920cc fluid. D: Suboptimal oral intake related to dx and Pt reporting n/v/d as evidenced by undesired weight loss/poor intake. I: Goal is for diet to be advanced as tolerated. Monitor intake/weights/labs. M/E: He is at high nutritional risk due to clear liquid diet. F/u 09-03-18. * Marta Rea MD - 08/29/2018 12:00 AM CDT HISTORY OF PRESENT ILLNESS: Patient is a 52-year-old gentleman who is well known to me from a previous GI workup. He has a history of hypertension, bronchitis, Crohn's disease. He was on biologics before. He recently had a small bowel resection. He had 4 abdominal surgeries before. He was admitted to the hospital because of diarrhea for the last 2 days. He also has abdominal pain. As a part of the workup, he had a CAT scan done, which showed evidence of ileal inflammation, so I was asked to seehim for further evaluation. ALLERGIES: DILAUDID. PAST MEDICAL HISTORY: Includes a history of anemia, bronchitis, Crohn's disease, hypertension. PAST SURGICAL HISTORY: Appendicectomy and colon resection. SOCIAL HISTORY: Smoker. No history of any alcohol abuse. REVIEW OF SYSTEMS: No chest pain, no palpitations, no cough. PHYSICAL EXAMINATION: Patient is comfortable at rest, afebrile. HEENT: Pupils are equal, round, andreactive to light. Neck: No JVD, no thyromegaly, no bruits. Cardiovascular system: First and secondheart sounds are normal. No murmurs, no gallops. Respiratory system: Normal breath sounds. No adventitious sounds. Abdomen: Soft. Bowel sounds normal. Extremities: No edema. ASSESSMENT AND PLAN: Patient is a 52-year-old with multiple medical problems with a history of Crohn's with acute exaggeration. The patient is given IV steroids and IV antibiotics. He needs biologicswhich would be scheduled as an outpatient. Thank you for allowing me to participate in the care of this patient. #[id number] /NTS documented in this encounter Nursing Notes * Gina Rosenbaum RN - 08/30/2018 2:29 PM CDT At 1341 today patient reported to nursing staff that he had no activity restrictions and that the doctor said he could walk outside. Patient is alert and orientated and is independent in care. Nursing staff informed patient that he could not go outside and he insisted that he could. Nursing staff informed doctor Wallace. Security guards found patient outside and returned him to his room. Education was provided with patient again concerning this matter and he was instructed to remain on the telemetry floor. Patient is a medical overflow patient, no heartrate monitor is present. documented in this encounter ED Notes * Oleg Desai RN - 08/29/2018 6:07 AM CDT sbar tubed * Meaghan Bernal RN - 08/29/2018 2:42 AM CDT HEMATEST- NEGATIVE FOR OCCULT BLOOD * Uday Akers MD - 08/29/2018 1:27 AM CDT [facility] Emergency Department Note Chief Complaint Chief Complaint Patient presents with ??? Blood In Stool ??? Vomiting Provider at Bedside Date/Time Event User Comments 08/29/18 0042 Provider at Bedside Assessing Patient ANGÉLICA GALVANKhoi Ponce 08/29/18 0111 Provider at Bedside Assessing Patient ANGÉLICA GALVANKhoi Ponce History of Present Illness Cirilo Chicas is a 52-year-old male who presents to the ED for an evaluation of an episode hematochezia earlier today. States the stool did not have any clots. Reports having a stomach bug thepast couple of days and has been vomiting and not able to eat. Also complains of mild weakness. LBMprior to ED arrival was normal. Denies chest pain, lightheaded, or dizziness. Hx of Crohn's disease, anemia, HTN. Reports diffuse ab pain. Medical History ALLERGIES: Allergies Allergen Reactions ??? Dilaudid [Hydromorphone] Itching Makes me itch every where MEDICATIONS: Prior to Admission medications Not on File PAST MEDICAL HISTORY: Past Medical History: Diagnosis [...] Review of Systems Review of Systems Constitutional: Denies fever Eyes: Denies visual changes HENT: Denies sore throat or ear pain. Respiratory: Denies shortness of breath. Cardiovascular: Denies chest pain GI: see HPI. Musculoskeletal: Denies back pain Skin: Denies rash. Neurologic: Denies headache Endocrine: Denies hypoglycemia Lymphatic: Denies swollen glands. Psychiatric: Denies depression, SI See HPI for further details. All systems negative except as marked. Physical Exam Filed Vitals: 08/29/18 0103 08/29/18 0258 08/29/18 0321 BP: (!) 180/111 (!) 157/105 (!) 160/100 Pulse: 98 90 Resp: 18 18 Temp: 98.7 ??F (37.1 ??C) TempSrc: Temporal SpO2: 100% 98% 100% Weight: 63.8 kg (140 lb 9.6 oz) Height: 5' 7 (1.702 m) Physical Exam Constitutional: Well developed, Well nourished, No acute distress, Non-toxic appearance. HEENT: Normocephalic, Atraumatic, Bilateral external ears normal, EOMI, Conjunctiva normal, No discharge.Oropharynx moist, Nose normal. Respiratory: Normal breath sounds, No respiratory distress. Cardiovascular: Normal heart rate, Normal rhythm GI: Soft, No tenderness, No masses, No pulsatile masses. Neck: Normal range of motion, No tenderness, Supple, No stridor. Back: No tenderness Extremities: Intact distal pulses, No edema, No tenderness, Good range of motion in all major joints. No tenderness Skin: Warm, Dry, No erythema, No rash. Neurologic: Alert & oriented x 3, Normal motor function, Normal sensory function, No focal deficits noted. Psychiatric: Affect normal, Judgment normal, Mood normal. Diagnostic Studies / Procedures ELECTROCARDIOGRAMS: No results found for this visit on 08/29/18. LABORATORY STUDIES: Results for orders placed or performed during the hospital encounter of 08/29/18 COMPREHENSIVE METABOLIC PANEL Result Value Ref Range GLUCOSE 96 70 - 99 MG/DL BUN 5 (L) 7 - 18 MG/DL CREATININE 1.06 0.7 - 1.3 MG/DL SODIUM 137 136 - 145 MMOL/L POTASSIUM 3.3 (L) 3.5 - 5.1 MMOL/L CHLORIDE 106 100 - 108 MMOL/L CO2 23.8 21 - 32 MMOL/L CALCIUM 8.4 (L) 8.5 - 10.1 MG/DL TOTAL BILIRUBIN 0.4 0.2 - 1.2 MG/DL TOTAL PROTEIN 6.6 6.4 - 8.2 G/DL ALBUMIN 3.2 (L) 3.4 - 5.0 G/DL AST 12 (L) 15 - 37 U/L ALT 20 16 - 60 U/L ALK PHOS 94 50 - 136 U/L ANION GAP 10.5 8 - 20 MMOL/L BUN CREATININE RATIO 4.7 (L) 6 - 26 A/G RATIO 0.9 (L) 1.0 - 2.0 RATIO eGFR Non-Afr. Amer. 80 (L) >90 ML/MIN/1.73 M2 eGFR Afr. Amer. >90 >90 ML/MIN/1.73 M2 PROTIME/INR, VENOUS Result Value Ref Range Protime 11.2 9.6 - 12.2 SEC INR 1.0 CBC W/DIFF AUTOMATED Result Value Ref Range WBC 7.0 4.5 - 11.0 x10'3/uL RBC 3.60 (L) 4.70 - 6.10 x10'6/uL HGB 11.3 (L) 14.0 - 18.0 G/DL HCT 33.4 (L) 43.0 - 54.0 % MCV 92.8 80.0 - 94.0 FL MCH 31.4 (H) 27.0 - 31.0 PG MCHC 33.8 32.0 - 36.0 G/DL RDW 14.5 11.5 - 14.5 % PLT 271 130 - 400 x10'3/uL MPV 7.7 (L) 9.3 - 12.2 FL DIFFERENTIAL TYPE AUTOMATED DIFFERENTIAL NEUTROPHILS 63.5 % LYMPHOCYTES 29.1 % MONOCYTES 6.9 % EOSINOPHILS 0.3 % BASOPHILS 0.1 % IMMATURE GRANS 0.1 (H) 0 % ABS. NEUTROPHILS TOTAL 4.41 1.80 - 7.70 x10'3/uL ABS. LYMPHOCYTES 2.02 1.00 - 4.80 x10'3/uL ABS. MONOCYTES 0.48 0.30 - 0.82 x10'3/uL ABS. EOSINOPHILS 0.02 (L) 0.04 - 0.54 x10'3/uL ABS. BASOPHILS 0.01 0.01 - 0.08 x10'3/uL ABS. IMMATURE GRANULOCYTES 0.01 0.00 - 0.03 x10'3/uL TYPE & SCREEN Result Value Ref Range ABO/RH A POSITIVE ANTIBODY SCREEN NEGATIVE SAMPLE EXPIRATION: 09/01/[address] Abd+pel W Con IMPRESSION: 1. Distinct findings a characteristic or Crohn's disease in the terminal ileum ascending and transverse colon and distal sigmoid colon and rectum. 2. Does not result in bowel obstruction.3. Mild diffuse hepatic steatosis. 4. Unexplained intrahepatic ductal dilatation without pancreaticmass or pancreatic necrosis. 5. At some point consider nonemergent outpatient MRCP for continued evaluation if there is any serum abnormality pancreatic enzymes.. ElectronicallySigned By: Lucy De La Rosa DO, MD on 08/29/2018 4:11 AM ED Course / Medical Decision Making MDM Number of Diagnoses or Management Options Amount and/or Complexity of Data Reviewed Clinical lab tests: ordered and reviewed Tests in the radiology section of CPT??: ordered and reviewed Patient Progress Patient progress: stable Pulse oximetry interpreted by me: Pulse oximetry on room air is 100. Impression normal. Rhythm strip interpreted by me: Normal sinus rhythm, rate of 98. No arrhythmias. Problem list- rectal bleeding, ab pain Differential: Crohns flair, gi bleed, anemia, other Plan: - Labs - ABD CT Progress notes: Labs benign, CT with evidence of crohn's flair Will admit to hospitalist; tx with steroids Medications methylPREDNISolone sodium succinate (SOLU-MEDROL) injection 125 mg (not administered) morphine injection 4 mg (4 mg Intravenous Given 08/29/18 0254) iopamidol (ISOVUE-370) 76 % injection 100 mL (100 mLs Intravenous Given 08/29/18 0347) Clinical Impression Crohn's disease (CMS/HCC) (Primary) There are no discharge medications for this patient. Disposition: Admit Follow-Up: No follow-up provider specified. I, Mariah Gaspar, acting as a scribe, am personally taking down the notes in the presence of Dr. Akers. Take no action on this note until reviewed and authenticated by the physician. Uday Akers MD 08/29/18 0524 * Lora Galvan PA-C - 08/29/2018 1:12 AM CDT [place], [place] EMERGENCY DEPARTMENT ENCOUNTER Medical Screening Examination 08/29/18 1:12 AM Chief Complaint : Blood In Stool and Vomiting HPI : Cirilo Chicas is a 52-year-old male who presents with bloody stools that started this evening. History of Crohn's but denies any abdominal pain today. Vital Signs: Filed Vitals: 08/29/18 0103 BP: (!) 180/111 Pulse: 98 Resp: 18 Temp: 98.7 ??F (37.1 ??C) TempSrc: Temporal SpO2: 100% Weight: 63.8 kg (140 lb 9.6 oz) Height: 5' 7 (1.702 m) Physical exam: A brief physical exam was completed to facilitate/expedite patient care. Plan: labs Lora Galvan PA-C 08/29/18 0113 Cosigned by Uday Akers MD at 08/29/2018 1:57 AM CDT * Windy Ho RN - 08/29/2018 1:02 AM CDT PT TO ED FROM HOME WITH BLOOD IN STOOLS THAT STARTED THIS EVENING. PT ALSO REPORTS A LITTLE INCREASED WEAKNESS AND TIREDNESS . PT ALSO REPORTS EMESIS FOR LAST COUPLE DAYS. PT DOES HAVE HX OF [place] STATES THAT THIS DOES NOT FEEL LIKE THAT . PT ALSO REPORTS HAS NOT TAKEN BP MEDS IN QUITE SOMETIME . documented in this encounter Plan of Treatment Not on file documented as of this encounter Procedures Procedure Name Priority Date/Time Associated Diagnosis Comments COMPREHENSIVE METABOLIC PANEL Routine 08/30/2018 10:17 AM CDT CBC W/DIFF AUTOMATED Routine 08/30/2018 10:17 AM CDT MAGNESIUM Routine 08/30/2018 10:[address] ABD+PEL W CON STAT 08/29/2018 3:47 AM CDT CBC W/DIFF AUTOMATED STAT 08/29/2018 3:26 AM CDT TYPE & SCREEN STAT 08/29/2018 2:51 AM CDT PROTHROMBIN TIME, VENOUS STAT 08/29/2018 2:51 AM CDT COMPREHENSIVE METABOLIC PANEL STAT 08/29/2018 2:51 AM CDT documented in this encounter Results * MAGNESIUM (08/30/2018 10:17 AM CDT) MAGNESIUM 2.2 1.8 - 2.4 MG/DL 08/30/2018 11:03 AM CDT [facility] 08/30/2018 10:1 7 AM CDT us Zac Farris MD LABORATORY Final Resul t [facility] [address] [place] [address], [place] [phone] * (ABNORMAL) COMPREHENSIVE METABOLIC PANEL (08/30/2018 10:17 AM CDT) [facility] GLUCOSE 142(H) 70 - 99 MG/DL 08/30/2018 11:03 AM CDT [facility] BUN 14 7 - 18 MG/DL 08/30/2018 11:03 AM CDT [facility] CREATININE S/P/B 1.28 0.7 - 1.3 MG/DL 08/30/2018 11:03 AM CDT [facility] SODIUM S/P/B 137 136 - 145 MMOL/L 08/30/2018 11:03 AM CDT [facility] POTASSIUM S/P/B 3.8 3.5 - 5.1 MMOL/L 08/30/2018 11:03 AM CDT [facility] CHLORIDE S/P/B 106 100 - 108 MMOL/L 08/30/2018 11:03 AM CDT [facility] CO2 26.5 21 - 32 MMOL/L 08/30/2018 11:03 AM CDT [facility] CALCIUM S/P/B 8.5 8.5 - 10.1 MG/DL 08/30/2018 11:03 AM CDT [facility] BILIRUBIN TOTAL S/P/B 0.1(L) 0.2 - 1.2 MG/DL 08/30/2018 11:03 AM CDT [facility] TOTAL PROTEIN S/P/B 6.9 6.4 - 8.2 G/DL 08/30/2018 11:03 AM CDT [facility] ALBUMIN S/P/B 3.0(L) 3.4 - 5.0 G/DL 08/30/2018 11:03 AM CDT [facility] [facility] AST 12(L) 15 - 37 U/L 08/30/2018 11:03 AM CDT [facility] ALT 20 16 - 60 U/L 08/30/2018 11:03 AM CDT [facility] ALKALINE PHOSPHATASE S/P/B 94 50 - 136 U/L 08/30/2018 11:03 AM CDT [facility] ANION GAP 8.3 8 - 20 MMOL/L 08/30/2018 11:03 AM T [facility] BUN CREATININE RATIO 10.9 6 - 26 08/30/2018 11:03 AM T [facility] A/G RATIO 0.8(L) 1.0 - 2.0 RATIO 08/30/2018 11:03 AM T [facility] EGFR NON-AFR. AMER. 64(L) >90 ML/MIN/1.7 3 M2 08/30/2018 11:03 AM T [facility] EGFR AFR. AMER. 74(L) >90 ML/MIN/1.7 3 M2 08/30/2018 11:03 AM T [facility] Comment: NOTE: eGFR is not calculated for patients <18 years of age. This is an estimated GFR (CKD EPI) and should not be used for calculating drug doses. 08/30/2018 10:1 7 AM CDT us Zac Farris MD LABORATORY Final Resul t [facility] [address] [place] [address], [place] [phone] * (ABNORMAL) CBC W/DIFF AUTOMATED (08/30/2018 10:17 AM CDT) WBC 9.1 4.5 - 11.0 x10'3/uL 08/30/2018 10:42 AM CDT [facility] RBC 3.92(L) 4.70 - 6.10 x10'6/uL 08/30/2018 10:42 AM CDT [facility] HGB 12.2(L) 14.0 - 18.0 G/DL 08/30/2018 10:42 AM CDT [facility] HCT 37.1(L) 43.0 - 54.0 % 08/30/2018 10:42 AM CDT [facility] MCV 94.6(H) 80.0 - 94.0 FL 08/30/2018 10:42 AM CDT [facility] MCH 31.1(H) 27.0 - 31.0 PG 08/30/2018 10:42 AM CDT [facility] MCHC 32.9 32.0 - 36.0 G/DL 08/30/2018 10:42 AM CDT [facility] RDW 14.5 11.5 - 14.5 % 08/30/2018 10:42 AM T [facility] PLT 285 130 - 400 x10'3/uL 08/30/2018 10:42 AM CDT [facility] MPV 8.9(L) 9.3 - 12.2 FL 08/30/2018 10:42 AM T [facility] DIFFERENTIAL TYPE MANUAL DIFFERENTIAL 08/30/2018 11:00 AM CDT [facility] SEG NEUTROPHILS 94 % 9 11:00 AM T [facility] LYMPHOCYTES 3 % 08/30/2018 11:00 AM T [facility] MONOCYTES 3 % 08/30/2018 11:00 AM CDT [facility] ABS. NEUTROPHILS CALCULATED 8.55(H) 1.80 - 7.70 x10'3/uL 08/30/2018 11:00 AM CDT [facility] ABS.LYMPHOCYTES CALCULATED 0.27(L) 1.00 - 4.80 x10'3/uL 08/30/2018 11:00 AM CDT [facility] ABS. MONOCYTES CALCULATED 0.27(L) 0.30 - 0.82 x10'3/uL 08/30/2018 11:00 AM CDT [facility] RBC MORPHOLOGY SLIDE REVIEWED 2018 11:00 AM CDT [facility] ANISO 1+ 08/30/2018 11:00 AM CDT [facility] PLT EST. ADEQUATE 08/30/2018 11:00 AM CDT [facility] 08/30/2018 10:1 7 AM CDT us Zac Farris MD LABORATORY Final Resul t [facility] [address] [place] [address], [place] [phone] * CT ABD+PEL W CON (08/29/2018 3:47 AM CDT) Anatomical Region Laterality Modality Abdomen Computed Tomogra phy 08/29/2018 3:59 AM CDT Impressions 08/29/2018 4:11 AM CDT IMPRESSION: 1. Distinct findings a characteristic or Crohn's disease in the terminal ileum ascending and transverse colon and distal sigmoid colon and rectum. 2. Does not result in bowel obstruction. 3. Mild diffuse hepatic steatosis. 4. Unexplained intrahepatic ductal dilatation without pancreatic mass or pancreatic necrosis. 5. At some point consider nonemergent outpatient MRCP for continued evaluation if there is any serum abnormality pancreatic enzymes.. Narrative 08/29/2018 4:11 AM CDT EXAMINATION: CT Abdomen and Pelvis with contrast EXAM DATE/TIME: 08/29/2018 3:32 AM REASON FOR EXAM: ??pain ? 52-year-old comes to the emergency department from home complaining of stool blood onset this evening. Weakness and tiredness. Emesis times several days. History of Crohn's disease. Has not taken blood pressure medication and quite some time COMPARISON: No previous TECHNIQUE: CT of the abdomen and pelvis was acquired after intravenous administration of 100 cc of Isovue-370 into indwelling intravenous access in the right antecubital fossa without adverse contrast reaction reported. Images acquired from the lung bases to the femoral heads then reconstructed in sagittal and coronal projections. Dose lowering technique was used for this study which may include, but is not limited to, dose reduction techniques, automated exposure control, use of iterative ??reconstruction and ALARA (As low As Reasonably Achievable)/Image Gently techniques. FINDINGS: Included lung bases: Clear of infiltrate or effusion. ABDOMEN: Liver: Diffuse hepatic steatosis.. Liver within normal limits of size measures 17.5 cm diameter transverse. No enhancing hepatic lesions. Spleen: Unremarkable Adrenal glands: Unremarkable Pancreas: Diffuse dilatation of the pancreatic duct at 3 mm. Pancreatic ductal dilatation allows visibility of duct of Santorini. No enhancing pancreatic mass. No cystic structure. No evidence of pancreatic necrosis. Gallbladder: Unremarkable. No extrahepatic ductal dilatation. Kidneys: Symmetric nephrograms. No renal lithiasis or hydronephrosis or ureteric calculi. No retroperitoneal fluid or hemorrhage. No recurrent peritoneal lymphadenopathy. PELVIS: Small bowel colon the white matter and jejunum and proximal ileum are unremarkable. There is mild wall thickening wall enhancement and fluid filled distention of the distal ileum and the terminal ileum. Large bowel: Pronounced wall thickening and luminal narrowing air-fluid levels luminal enhancement loss of haustral irregularity in the ascending and transverse colon. This dissipates in the descending colon however recurs in the distal sigmoid colon and rectum. No bowel obstruction. No free air or free fluid in the abdomen or pelvis. Appearance and location of segmental abnormality with intervening normal: Is most suggestive of Crohn's colitis.. There is borderline enlarged right lower quadrant mesenteric lymph nodes. No iliac or inguinal lymphadenopathy. The urinary bladder: Minimally filled. No intracystic calculi. The prostate measures 3 cm in diameter. Bone window imaging:. Long intramedullary rani right femur, otherwise unremarkable. Procedure Note Lucy De La Rosa MD - 08/29/2018 EXAMINATION: CT Abdomen and Pelvis with contrast EXAM DATE/TIME: 08/29/2018 3:32 AM REASON FOR EXAM: pain 52-year-old comes to the emergency department from home complaining of stool blood onset this evening. Weakness and tiredness. Emesis times several days. History of Crohn's disease. Has not taken blood pressure medication and quite some time COMPARISON: No previous TECHNIQUE: CT of the abdomen and pelvis was acquired after intravenousadministration of 100 cc of Isovue-370 into indwelling intravenous access in the right antecubital fossa without adverse contrast reaction reported. Images acquired from the lung bases to the femoral heads then reconstructed in sagittal and coronal projections. Dose lowering technique was used for this study which may include, butis not limited to, dose reduction techniques, automated exposure control,use of iterative reconstruction and ALARA (As low As Reasonably Achievable)/Image Gently techniques. FINDINGS: Included lung bases: Clear of infiltrate or effusion. ABDOMEN: Liver: Diffuse hepatic steatosis.. Liver within normal limits of size measures 17.5 cm diameter transverse. No enhancing hepatic lesions. Spleen: Unremarkable Adrenal glands: Unremarkable Pancreas: Diffuse dilatation of the pancreatic duct at 3 mm. Pancreatic ductal dilatation allows visibility of duct of Santorini. No enhancing pancreatic mass. No cystic structure. No evidence of pancreaticnecrosis. Gallbladder: Unremarkable. No extrahepatic ductal dilatation. Kidneys: Symmetric nephrograms. No renal lithiasis or hydronephrosis or ureteric calculi. No retroperitoneal fluid or hemorrhage. No recurrent peritoneal lymphadenopathy. PELVIS: Small bowel colon the white matter and jejunum and proximal ileum are unremarkable. There is mild wall thickening wall enhancement and fluid filled distention of the distal ileum and the terminal ileum. Large bowel: Pronounced wall thickening and luminal narrowing air-fluid levels luminal enhancement loss of haustral irregularity in theascending and transverse colon. This dissipates in the descending colon however recurs in the distal sigmoid colon and rectum. No bowel obstruction. No free air or free fluid in the abdomen or pelvis. Appearance and locationof segmental abnormality with intervening normal: Is most suggestive of Crohn's colitis.. There is borderline enlarged right lower quadrant mesenteric lymph nodes. No iliac or inguinal lymphadenopathy. The urinary bladder: Minimally filled. No intracystic calculi. Theprostate measures 3 cm in diameter. Bone window imaging:. Long intramedullary rani right femur, otherwise unremarkable. IMPRESSION: 1. Distinct findings a characteristic or Crohn's disease in the terminal ileum ascending and transverse colon and distal sigmoid colon andrectum. 2. Does not result in bowel obstruction. 3. Mild diffuse hepatic steatosis. 4. Unexplained intrahepatic ductal dilatation without pancreatic mass or pancreatic necrosis. 5. At some point consider nonemergent outpatient MRCP for continued evaluation if there is any serum abnormality pancreatic enzymes.. Uday Akers MD CT Final Result * (ABNORMAL) CBC W/DIFF AUTOMATED (08/29/2018 3:26 AM CDT) Pathologist [facility] WBC 7.0 4.5 - 11.0 x10'3/uL 08/29/2018 3:44 AM CDT [facility] RBC 3.60(L) 4.70 - 6.10 x10'6/uL 08/29/2018 3:44 AM CDT [facility] HGB 11.3(L) 14.0 - 18.0 G/DL 08/29/2018 3:44 AM CDT [facility] HCT 33.4(L) 43.0 - 54.0 % 08/29/2018 3:44 AM CDT [facility] MCV 92.8 80.0 - 94.0 FL 08/29/2018 3:44 AM CDT [facility] MCH 31.4(H) 27.0 - 31.0 PG 08/29/2018 3:44 AM CDT [facility] MCHC 33.8 32.0 - 36.0 G/DL 08/29/2018 3:44 AM CDT [facility] RDW 14.5 11.5 - 14.5 % 08/29/2018 3:44 AM CDT [facility] PLT 271 130 - 400 x10'3/uL 08/29/2018 3:44 AM T [facility] MPV 7.7(L) 9.3 - 12.2 FL 08/29/2018 3:44 AM CDT [facility] DIFFERENTIAL TYPE AUTOMATED DIFFERENTIAL 08/29/2018 3:44 AM T [facility] NEUTROPHILS % 63.5 % 08/29/2018 3:44 AM T [facility] LYMPHOCYTES % 29.1 % 08/29/2018 3:44 AM T [facility] MONOCYTES % 6.9 % 08/29/2018 3:44 AM T [facility] EOSINOPHILS 0.3 % 08/29/2018 3:44 AM T [facility] BASOPHILS 0.1 % 08/29/2018 3:44 AM T [facility] IMMATURE GRANS % 0.1(H) 0 % 08/30/19 19 3:44 AM T [facility] ABS. NEUTROPHILS TOTAL 4.41 1.80 - 7.70 x10'3/uL 08/29/2018 3:44 AM CDT [facility] ABS. LYMPHOCYTES 2.02 1.00 - 4.80 x10'3/uL 08/29/2018 3:44 AM CDT [facility] ABS. MONOCYTES 0.48 0.30 - 0.82 x10'3/uL 08/29/2018 3:44 AM T [facility] ABS. EOSINOPHILS 0.02(L) 0.04 - 0.54 x10'3/uL 08/29/2018 3:44 AM CDT [facility] ABS. BASOPHILS 0.01 0.01 - 0.08 x10'3/uL 08/29/2018 3:44 AM CDT [facility] ABS. IMMATURE GRANULOCYTES 0.01 0.00 - 0.03 x10'3/uL 08/29/2018 3:44 AM CDT [facility] 08/29/2018 3:26 AM CDT Uday Akers MD LABORATORY Final Result [facility] [address] [place] [address], [place] [phone] * PROTIME/INR, VENOUS (08/29/2018 2:51 AM CDT) PROTIME 11.2 9.6 - 12.2 SEC 08/29/2018 3:14 AM CDT [facility] INR 1.0 08/29/2018 3:14 AM CDT [facility] Comment: Recommended INR Therapeutic Goals: ??2.0-3.0 Routine Therapy ??2.5-3.5 Mechanical Prosthetic Valves (High Risk) ??3.0-4.0 Acute VA (to prevent Systemic Embolism) The INR is used only for patients on stable oral anticoagulant therapy. It makes no significant contribution to the diagnosis or treatment of patients whose Protime is prolonged for other reasons. 08/29/2018 2:51 AM CDT Uday Akers MD LABORATORY Final Result [facility] [address] [place] [address], [place] [phone] * TYPE & SCREEN (08/29/2018 2:51 AM CDT) ABO/RH A POSITIVE 08/29/2018 3:36 AM CDT [facility] ANTIBODY SCREEN NEGATIVE 9 3:36 AM CDT [facility] SAMPLE EXPIRATION 09/01/2018 08/29/2018 3:36 AM CDT [facility] 08/29/2018 2:51 AM CDT Lora Galvan PA-C BLOOD BANK TEST ORDERABL ES Final Result [facility] [address] [place] [address], [place] [phone] * (ABNORMAL) COMPREHENSIVE METABOLIC PANEL (08/29/2018 2:51 AM CDT) Pathologist [facility] GLUCOSE 96 70 - 99 MG/DL 08/29/2018 3:22 AM CDT [facility] BUN 5(L) 7 - 18 MG/DL 08/29/2018 3:22 AM CDT [facility] CREATININE S/P/B 1.06 0.7 - 1.3 MG/DL 08/29/2018 3:22 AM CDT [facility] SODIUM S/P/B 137 136 - 145 MMOL/L 08/29/2018 3:22 AM CDT [facility] POTASSIUM S/P/B 3.3(L) 3.5 - 5.1 MMOL/L 08/29/2018 3:22 AM CDT [facility] CHLORIDE S/P/B 106 100 - 108 MMOL/L 08/29/2018 3:22 AM CDT [facility] CO2 23.8 21 - 32 MMOL/L 08/29/2018 3:22 AM CDT [facility] CALCIUM S/P/B 8.4(L) 8.5 - 10.1 MG/DL 08/29/2018 3:22 AM [facility] BILIRUBIN TOTAL S/P/B 0.4 0.2 - 1.2 MG/DL 08/29/2018 3:22 AM [facility] TOTAL PROTEIN S/P/B 6.6 6.4 - 8.2 G/DL 08/29/2018 3:22 AM [facility] ALBUMIN S/P/B 3.2(L) 3.4 - 5.0 G/DL 08/29/2018 3:22 AM [facility] AST 12(L) 15 - 37 U/L 08/29/2018 3:22 AM [facility] ALT 20 16 - 60 U/L 08/29/2018 3:22 AM [facility] ALKALINE PHOSPHATASE S/P/B 94 50 - 136 U/L 08/29/2018 3:22 AM [facility] ANION GAP 10.5 8 - 20 MMOL/L 08/29/2018 3:22 AM [facility] BUN CREATININE RATIO 4.7(L) 6 - 26 08/29/2018 3:22 AM [facility] A/G RATIO 0.9(L) 1.0 - 2.0 RATIO 08/29/2018 3:22 AM [facility] EGFR NON-AFR. AMER. 80(L) >90 ML/MIN/1.7 3 M2 08/29/2018 3:22 AM [facility] EGFR AFR. AMER. >90 >90 ML/MIN/1.7 3 M2 08/29/2018 3:22 AM [facility] Comment: NOTE: eGFR is not calculated for patients <18 years of age. This is an estimated GFR (CKD EPI) and should not be used for calculating drug doses. 08/29/2018 2:51 AM CDT Lora Galvan PA-C LABORATORY Final Re sult [facility] [address] [place] [address], [place] [phone] documented in this encounter Visit Diagnoses Diagnosis Crohn's disease ([facility]/HCC)- Primary Regional enteritis of unspecified site Crohn's colitis ([facility]) Regional enteritis of large intestine documented in this encounter Administered Medications Inactive Administered Medications - up to 3 most recent administrations Medication Order MAR Action Action Date Dose Rate Site famotidine (PEPCID) injection 20 mg 20 mg, Intravenous, Every 12 hours scheduled (2 times per day), First dose on 08/29/18 at 0900, Until Discontinued, Give if unable to take PO. IV Push over 2 minutes Given 08/29/2018 9:28 PM CDT 20 mg famotidine (PEPCID) tablet 20 mg 20 mg, Oral, Every 12 hours scheduled (2 times per day), First dose on 08/29/18 at 0900, Until Discontinued Given 08/31/2018 7:56 AM CDT 20 mg Given 08/30/2018 10:06 PM CDT 20 mg Given 08/30/2018 9:16 AM CDT 20 mg hydrALAZINE (APRESOLINE) injection 10 mg 10 mg, Intravenous, Every 6 hours PRN, Other, For SBP>160 or DBP>100, Starting on 08/30/18 at 2140, Until 08/31/18 at 1238, Monitor HR and BP before dose and 15 min after IV dose. For IV push give over 1-2 minutes=5mg/min. Given 08/30/2018 11:21 PM CDT 10 mg hydrocodone-acetaminophen (NORCO) 5-325 MG tablet 1 tablet 1 tablet, Oral, Every 4 hours PRN, Moderate pain (Scale 4 - 7), Starting on 08/29/18 at 0649, Until 08/31/18 at 1238, Maximum dose of acetaminophen is 4000 mg from all sources in 24 hours. Given 08/29/2018 6:26 PM CDT 1 tablet iopamidol (ISOVUE-370) 76 % injection 100 mL 100 mL, Intravenous, IMG once as needed, Contrast, 1 dose, Starting on 08/29/18 at 0347, Until 08/29/18 at 0347 Given 08/29/2018 3:47 AM CDT 100 mLs Right Arm lactated ringers infusion at 100 mL/hr, Intravenous, Continuous, Starting on 08/29/18 at 0715, Until 08/29/18 at 2048 New Bag 08/29/2018 8:29 AM CDT 100 mL/hr loperamide (IMODIUM) capsule 2 mg 2 mg, Oral, Once, 1 dose, On 08/30/18 at 2145 Given 08/30/2018 10:36 PM CDT 2 mg loperamide (IMODIUM) capsule 2 mg 2 mg, Oral, 3 times daily PRN, Diarrhea, Starting on 08/31/18 at 0735, Until 08/31/18 at 1238 Given 08/31/2018 7:56 AM CDT 2 mg methylPREDNISolone sodium succinate (SOLU-MEDROL) injection 125 mg 125 mg, Intravenous, Once, 1 dose, On 08/29/18 at 0530 Given 08/29/2018 6:14 AM CDT 125 mg methylPREDNISolone sodium succinate (SOLU-MEDROL) injection 40 mg 40 mg, Intravenous, Every 8 hours, First dose on 08/29/18 at 1400, Until Discontinued Given 08/31/2018 5:27 AM CDT 40 mg Given 08/30/2018 10:06 PM CDT 40 mg Given 08/30/2018 2:21 PM CDT 40 mg morphine injection 4 mg 4 mg, Intravenous, Once, 1 dose, On 08/29/18 at 0300 Given 08/29/2018 2:54 AM CDT 4 mg morphine injection 4 mg 4 mg, Intravenous, Once, 1 dose, On 08/29/18 at 0615 Given 08/29/2018 6:14 AM CDT 4 mg morphine injection 1 dose, Starting on 08/29/18 at 0611, Until 08/29/18 at 0614, Created by caity martinez vitamin A & D ointment Topical, As needed, Dry skin, Starting on 08/30/18 at 2033, Until 08/31/18 at 1238 Given 08/30/2018 10:36 PM CDT documented in this encounter Active and Recently Administered Medications Times are shown in CDT. Scheduled Medication Order 08/29/2018 08/30/2018 08/31/2018 famotidine (PEPCID) injection 20 mg(Linked Group 1) 20 mg, Intravenous, Every 12 hours scheduled (2 times per day), First dose on 08/29/18 at 0900, Until Discontinued, Give if unable to take PO. IV Push over 2 minutes 0829 (See Alternative - Provider: Gina Rosenbaum RN)2127 (Given - Provider: Yesenia Trevizo, RN) 0916 (See Alternative - Provider: Gina Rosenbaum RN)220 (See Alternative - Provider: Lin Tidwell, AUTUMN) 0756 (See Alternative - Provider: Kvng Muniz, RN) famotidine (PEPCID) tablet 20 mg(Linked Group 1) 20 mg, Oral, Every 12 hours scheduled (2 times per day), First dose on 08/29/18 at 0900, Until Discontinued 0829 (Given - Provider: Gina Rosenbaum RN)2127 (See Alternative - Provider: Yesenia Trevizo, AUTUMN) 09 (Given - Provider: Gina Rosenbaum RN)220 (Given - Provider: Lin Tidwell, AUTUMN) 0756 (Given - Provider: Kvng Muniz, RN) loperamide (IMODIUM) capsule 2 mg (COMPLETED) 2 mg, Oral, Once, 1 dose, On 08/30/18 at 2145 2236 (Given - Provider: Lin Tidwell, AUTUMN) methylPREDNISolone sodium succinate (SOLU-MEDROL) injection 125 mg (COMPLETED) 125 mg, Intravenous, Once, 1 dose, On 08/29/18 at 0530 0614 (Given - Provider: Oleg Desai RN) methylPREDNISolone sodium succinate (SOLU-MEDROL) injection 40 mg 40 mg, Intravenous, Every 8 hours, First dose on 08/29/18 at 1400, Until Discontinued 1502 (Not Given - Provider: Gina Rosenbaum RN - Reason: Patient/family declined)2127 (Given - Provider: Yesenia Trevizo RN) 0633 (Given - Provider: Yesenia E Trevizo, RN)1421 (Given - Provider: Gina Rosenbaum RN)2206 (Given - Provider: Lin Tidwell, RN) 0527 (Given - Provider: Lin Tidwell, AUTUMN) morphine injection 4 mg (COMPLETED) 4 mg, Intravenous, Once, 1 dose, On 08/29/18 at 0300 0254 (Given - Provider: Meaghan Bernal, RN) morphine injection 4 mg (COMPLETED) 4 mg, Intravenous, Once, 1 dose, On 08/29/18 at 0615 0614 (Given - Provider: Oleg Desai, AUTUMN) Continuous Medication Order 08/29/2018 08/30/2018 08/31/2018 lactated ringers infusion (CANCELED) at 100 mL/hr, Intravenous, Continuous, Starting on 08/29/18 at 0715, Until 08/29/18 at 2048 0829 (New Bag - Provider: Gina Rosenbaum RN)204 (Infusion Stop Time - Provider: Yesenia Trevizo RN) PRN Medication Order 08/29/2018 08/30/2018 08/31/2018 acetaminophen (TYLENOL) tablet 650 mg 650 mg, Oral, Every 4 hours PRN, Mild pain (Scale 1 - 3), Starting on 08/29/18 at 0649, Until 08/31/18 at 1238, Maximum dose of acetaminophen is 4000 mg from all sources in 24 hours. hydrALAZINE (APRESOLINE) injection 10 mg 10 mg, Intravenous, Every 6 hours PRN, Other, For SBP>160 or DBP>100, Starting on 08/30/18 at 2140, Until 08/31/18 at 1238, Monitor HR and BP before dose and 15 min after IV dose. For IV push give over 1-2 minutes=5mg/min. 2321 (Given - Provider: Lin Tidwell, AUTUMN) hydrocodone-acetaminophe n (NORCO) 5-325 MG tablet 1 tablet 1 tablet, Oral, Every 4 hours PRN, Moderate pain (Scale 4 - 7), Starting on 08/29/18 at 0649, Until 08/31/18 at 1238, Maximum dose of acetaminophen is 4000 mg from all sources in 24 hours. 1826 (Given - Provider: Gina Rosenbaum RN) iopamidol (ISOVUE-370) 76 % injection 100 mL (COMPLETED) 100 mL, Intravenous, IMG once as needed, Contrast, 1 dose, Starting on 08/29/18 at 0347, Until 08/29/18 at 0347 0347 (Given - Provider: Maura Cabrera, RTR) loperamide (IMODIUM) capsule 2 mg 2 mg, Oral, 3 times daily PRN, Diarrhea, Starting on 08/31/18 at 0735, Until Fri08/31/18 at 1238 0756 (Given - Provider: Kvng Muniz, AUTUMN) morphine injection 4 mg 4 mg, Intravenous, Every 4 hours PRN, Severe pain (Scale 8 - 10), Starting on 08/29/18 at 0649, Until 08/31/18 at 1238 ondansetron (ZOFRAN) injection 4 mg 4 mg, Intravenous, Every 6 hours PRN, Nausea, Vomiting, Starting on 08/29/18 at 0649, Until 08/31/18 at 1238 vitamin A & D ointment Topical, As needed, Dry skin, Starting on 08/30/18 at 2033, Until 08/31/18 at 1238 2236 (Given - Provider: Lin Tidwell RN) Linked Groups Order Group 1: famotidine (PEPCID) injection 20 mgJump to med 20 mg, Intravenous, Every 12 hours scheduled (2 times per day), First dose on 08/29/18 at 0900, Until Discontinued, Give if unable to take PO. IV Push over 2 minutes Or famotidine (PEPCID) tablet 20 mgJump to med 20 mg, Oral, Every 12 hours scheduled (2 times per day), First dose on 08/29/18 at 0900, Until Discontinued documented in this encounter Care Teams Equipment Validation Engineer Relationship Specialty Start Date End Date Hemant Connors MD PCP - General 04/09/16 02/15/24 documented as of this encounter
--- OUTSIDE RECORDS SUMMARY | 2024-06-06 03:21 | XMS_ITS | Encounter Summary ---
Author Organization [facility] Address [address] [place] [address]. [place], [place] [id number] [place] [id number] Care Team Providers Care Property Management Assistant Name Role Phone Hemant Lopez MD Primary Care Provider + [phone] Reason for Referral * Imaging (Emergency) - Closed Specialty Diagnoses / Procedures Referred By Contac t Referred To Contact RADIOLOGY Procedures CT CERV SPINE WO CON Jennifer Mancia, DOMINIC Phone: tel: fax: Referral ID Status Reason Start Date Expiration Date Visits Re quested Visits Authorized [id number] Closed 05/09/2019 06/09/2020 1 1 UNICATIONS ADVISOR * Imaging (Emergency) - Closed Specialty Diagnoses / Procedures Referred By Contac t Referred To Contact RADIOLOGY Procedures CT HEAD WO CON Jennifer Mancia, DOMINIC Phone: tel: fax: Referral ID Status Reason Start Date Expiration Date Visits Re quested Visits Authorized [id number] Closed 05/09/2019 06/09/2020 1 1 UNICATIONS ADVISOR Reason for Visit * Reason Comments Fall Encounter Details Date Type Department Care Team (Late st Contact Info) Description 05/09/2019 6:00 PM COMMUNICATIONS ADVISOR - 05/09/2019 7:22 PM COMMUNICATIONS ADVISOR Emergency [facility] [place] [address] Nemesio Berg PA-C [id number] [place] [address] Fall Discharge Disposition: Home or Self Care (Routine [...] Sign Reading Time Taken Comments Blood Pressure 157/93 05/09/2019 7:00 PM COMMUNICATIONS ADVISOR Pulse 108 05/09/2019 5:58 PM COMMUNICATIONS ADVISOR Temperature 36.9 ??C (98.4 ??F) 05/09/2019 5:58 PM CS T Respiratory Rate 18 05/09/2019 5:58 PM COMMUNICATIONS ADVISOR Oxygen Saturation 100% 05/09/2019 7:00 PM COMMUNICATIONS ADVISOR Inhaled Oxygen Concentration - - Weight 57.4 kg (126 lb 9.6 oz) 05/09/2019 5:58 P M COMMUNICATIONS ADVISOR Height 170.2 cm (5' 7 ) 05/09/2019 5:58 PM COMMUNICATIONS ADVISOR Body Mass Index 19.83 05/09/2019 5:58 PM COMMUNICATIONS ADVISOR documented in this encounter Discharge Instructions * Discharge Instructions* Nemesio Berg PA-C - 05/09/2019 7:16 PM COMMUNICATIONS ADVISOR Use Tylenol for right shoulder pain and headache symptoms. Use sling on right shoulder as directed and take sling at home and perform gentle range of motion exercises to avoid frozen shoulder. Use topical lidocaine patches for right shoulder pain as needed as directed. Apply ice and alternate heat to the painful area 20-minute intervals.putting ice directly with the skin. Follow-up with your primary care physician for further evaluation and follow-up with orthopedic physician referral for shoulder pain and neurologist if headache symptoms continue. Return to the ED if symptoms change or worsen. Do not drive if experiencing dizziness. UNICATIONS ADVISOR * Attachments The following attachments cannot be sent through Care Everywhere. * Preventing Falls (Palauan) * Postconcussion Syndrome Discharge Instructions ([place]auan) * Contusion Discharge Instructions (Palauan) documented in this encounter Medications at Time of Discharge acetaminophen 500 MG tablet Take 1 tablet (500 mg total) by mouth every 6 (six) hours as needed for Pain. 30 tablet 05/09/2019 albuterol sulfate HFA 108 (90 Base) MCG/ACT inhaler Inhale 2 puffs into the lungs every 6 (six) hours as needed for Wheezing. 1 Inhaler 04/12/2019 hydrocodone-acet aminophen (NORCO) 5-325 MG tablet Take 1 tablet by mouth every 8 (eight) hours as needed for Pain. 8 tablet 11/06/2018 02/19/2024 lidocaine 5 % Place 1 patch onto the skin daily for 10 days. Remove & Discard patch within 12 hours or as directed by MD Klein patch 05/09/2019 05/19/2019 documented as of this encounter ED Notes * Nemesio Berg PA-C - 05/09/2019 6:31 PM CST Chief Complaint Chief Complaint Patient presents with ??? Fall History of Present Illness The patient is a 53-year-old male who presents to the ED with report of headache and pain to the posterior aspect of his right shoulder after patient states he tripped and fell while walking upstairs3 days ago. Patient denies symptoms prior to slipping on the stairs and falling. Denies loss of consciousness. Patient states he had intermittent headaches with intermittent dizziness. Denies nausea or vomiting. Denies upper extremity numbness or tingling but has pain with right arm movement. Denies neck pain. Medical History ALLERGIES: Allergies Allergen Reactions ??? Dilaudid [Hydromorphone] Itching Makes me itch every where MEDICATIONS: Prior to Admission medications Medication Sig Start Date End Date Taking? Authorizing Provider acetaminophen 500 MG tablet Take 1 tablet (500 mg total) by mouth every 6 (six) hours as needed forPain. 05/09/19 Yes Nemesio Berg PA-C lidocaine 5 % Place 1 patch onto the skin daily for 10 days. Remove & Discard patch within 12 hours or as directed by 05/09/19 05/19/19 Yes Nemesio Berg PA-C albuterol sulfate HFA 108 (90 Base) MCG/ACT inhaler Inhale 2 puffs into the lungs every 6 (six) hours as needed for Wheezing. 04/12/19 Magnus Nina MD hydrocodone-acetaminophen (NORCO) 5-325 MG tablet Take 1 tablet by mouth every 8 (eight) hours as needed for Pain. 11/06/18 Rikki Ahmadi PA-C PAST MEDICAL HISTORY: Past Medical History: [...] of Systems Constitutional: Negative for activity change, chills and fever. HENT: Negative for congestion and rhinorrhea. Eyes: Negative for visual disturbance. Respiratory: Negative for shortness of breath and wheezing. Cardiovascular: Negative for chest pain. Gastrointestinal: Negative for abdominal pain and diarrhea. Genitourinary: Negative for dysuria. Musculoskeletal: Negative for back pain. Right shoulder pain Skin: Negative for rash. Allergic/Immunologic: Negative for environmental allergies. Neurological: Positive for dizziness and headaches. Negative for light-headedness. Psychiatric/Behavioral: Negative for suicidal ideas. All other systems reviewed and are negative. Physical Exam Filed Vitals: 05/09/19 1758 05/09/19 1800 05/09/19 1900 BP: (!) 165/106 (!) 157/93 Pulse: 108 Resp: 18 Temp: 98.4 ??F (36.9 ??C) TempSrc: Oral SpO2: 100% 100% Weight: 57.4 kg (126 lb 9.6 oz) Height: 5' 7 (1.702 m) Physical Exam Constitutional: He is oriented to person, place, and time. He appears well- developed and well-nourished. No distress. HENT: Head: Atraumatic. Right Ear: External ear normal. Left Ear: External ear normal. Nose: Nose normal. Mouth/Throat: Oropharynx is clear and moist. Eyes: EOM are normal. Pupils are equal, round, and reactive to light. Neck: Normal range of motion. No cervical tenderness. Full cervical range of motion. Cardiovascular: Normal rate, regular rhythm and normal heart sounds. Pulmonary/Chest: Effort normal and breath sounds normal. No respiratory distress. He has no wheezes. Abdominal: Soft. Bowel sounds are normal. There is no tenderness. There is no rebound and no guarding. Musculoskeletal: He exhibits tenderness. Tenderness to the dorsal aspect of right shoulder with small bruised area. Pain with right shoulderforward flexion and abduction. Limited range of motion in right shoulder due to pain. Normal gis specialist strength bilateral hands. Normal neurovascular is in right upper extremity Lymphadenopathy: He has no cervical adenopathy. Neurological: He is alert and oriented to person, place, and time. No cranial nerve deficit. Coordination normal. No focal neuro deficits. Speech is normal. Facial sensation normal. Skin: No rash noted. He is not diaphoretic. Psychiatric: He has a normal mood and affect. Nursing note and vitals reviewed. Diagnostic Studies / Procedures ELECTROCARDIOGRAMS: No results found for this visit on 05/09/19. LABORATORY STUDIES: No results found for this visit on 05/09/19. IMAGING STUDIES XR SHOULDER RT MIN 2V Final Result by User, [id number] (05/09 1844) Right shoulder Exam date: 05/09/2019. Indications: Pain after a fall. Comparison: None. Technique: 3 views of the right shoulder were obtained. Findings: No plain film evidence of acute fracture, dislocation, or cortical destruction. IMPRESSION: No plain film evidence of acute fracture, dislocation, or cortical destruction. If symptoms persist, followup imaging in 10-14 days may be helpful. CERV SPINE WO CON Final Result by User, [id number] (05/092) CT Cervical Spine without contrast. Exam time: 1818 hours. Exam History: Trauma. Fell backwards. Pain. Comparison: None. Technique: A noncontrast CT of the cervical spine was performed. Images were acquired in transaxial plane and reformatted in the coronal and sagittal planes. A dose lowering technique was used for this procedure, which may include, but is not limited to, dose reduction technique, automated exposure control, the use of iterative reconstruction, and ALARA (As Low As Reasonably Achievable)/ Image Gently techniques. Findings: No evidence of acute fracture, subluxation, or prevertebral soft tissue swelling. IMPRESSION: No evidence of acute fracture, subluxation, or prevertebral soft tissue swelling. HEAD WO CON Final Result by User, [id number] (05/09 096) CT Head without contrast Exam time: 1817 hours. Exam History: Fell backwards and hit head. Pain. Comparison: None. Technique: A noncontrast CT of the head was performed. A dose lowering technique was used for this procedure, which may include, but is not limited to, dose reduction technique, automated exposure control, the use of iterative reconstruction, and ALARA (As Low As Reasonably Achievable)/ Image gently techniques. Findings: There is no evidence of acute intracranial hemorrhage or mass-effect. The ventricles and subarachnoid spaces are within normal limits. No air-fluid levels in the visualized portions of the paranasal sinuses or mastoid air cells. IMPRESSION: No evidence of intracranial hemorrhage or mass-effect. Course / Medical Decision Making XR shoulder: Impression IMPRESSION: No plain film evidence of acute fracture, dislocation, or cortical destruction. If symptoms persist, followup imaging in 10-14 days may be helpful. CT cervical spine: Impression IMPRESSION: No evidence of acute fracture, subluxation, or prevertebral soft tissue swelling. ?? CT head: Impression IMPRESSION: No evidence of intracranial hemorrhage or mass-effect. ?? Patient updated on imaging results and agreed with treatment for right shoulder pain with a shoulder sling. Patient educated to take sling off at home and perform gentle range of motion exercises. Patient educated headache and dizziness symptoms likely due to postconcussion symptoms. Patient educated to use Tylenol for shoulder pain and headache symptoms and to avoid strenuous activity and patient agreed to follow-up with his primary care physician for further evaluation. Patient given orthopedic referral and neurology referral if needed. Patient given discharge instructions and return precautions and had no questions at this time. Clinical Impression Fall (Primary) Post concussion syndrome Contusion of right shoulder, initial encounter Disposition: Discharge Nemesio Berg PA-C 05/[birth year]/191947 Cosigned by Linda Mcdonald MD at 05/09/2019 9:11 PM COMMUNICATIONS ADVISOR UNICATIONS ADVISOR UNICATIONS ADVISOR * Jennifer Mancia NP - 05/09/2019 6:10 PM CST [place], [place] EMERGENCY DEPARTMENT ENCOUNTER Medical Screening Examination 05/09/19 6:12 PM Chief Complaint : Fall HPI : Cirilo Cali is a 53-year-old male who presents headache and dizziness after slip andfall backwards from 1 step backwards to a concrete floor. Denies LOC. C/o pain right shoulder. Tookexcedrin without relief. Missed work yesterday due to pain. Continues to have pain and dizziness. Denies vomiting Vital Signs: Filed Vitals: 05/09/19 1758 05/09/19 1800 BP: (!) 165/106 Pulse: 108 Resp: 18 Temp: 98.4 ??F (36.9 ??C) TempSrc: Oral SpO2: 100% Weight: 57.4 kg (126 lb 9.6 oz) Height: 5' 7 (1.702 m) Physical exam: A brief physical exam was completed to facilitate/expedite patient care. Lind findings include: alert, ttp to right shoulder, limited abduction of right shoulder active. Hasfull passive ROM of right shoulder. Right para cervical spasm. Plan: Imaging was ordered to facilitate patient care. and Analgesics were ordered to faciliate patient care. GANESH Ramirez 05/09/191811 Cosigned by Linda Mcdonald MD at 05/09/2019 6:21 PM COMMUNICATIONS ADVISOR UNICATIONS ADVISOR UNICATIONS ADVISOR * Chidi Washington RN - 05/09/2019 5:56 PM CST Patient ambulatory to triage for c/o falling two days ago. Reports posterior head pain, along with bilateral shoulder pain. Denies neck pain. Reports walking up steps inside, when he missed a step and fell backwards, 1 step. Reports ORTIZ and dizziness since hitting head. UNICATIONS ADVISOR documented in this encounter Plan of Treatment Not on file documented as of this encounter Procedures Procedure Name Priority Date/Time Associated Diagnosis Comments XR SHOULDER RT MIN 2V STAT 05/09/2019 6:[address] HEAD WO CON STAT 05/09/2019 6:[address] CERV SPINE WO CON STAT 05/09/2019 6:23 PM COMMUNICATIONS ADVISOR documented in this encounter Results * XR SHOULDER RT MIN 2V (05/09/2019 6:26 PM COMMUNICATIONS ADVISOR) Anatomical Region Laterality Modality Shoulder Radiographic Annita ging 05/09/2019 6:42 PM COMMUNICATIONS ADVISOR Impressions 05/09/2019 6:43 PM COMMUNICATIONS ADVISOR IMPRESSION: No plain film evidence of acute fracture, dislocation, or cortical destruction. If symptoms persist, followup imaging in 10-14 days may be helpful. Narrative 05/09/2019 6:43 PM COMMUNICATIONS ADVISOR Right shoulder Exam date: 05/09/2019. Indications: Pain after a fall. Comparison: None. Technique: 3 views of the right shoulder were obtained. Findings: No plain film evidence of acute fracture, dislocation, or cortical destruction. Procedure Note Tom Puentes MD - 05/09/2019 Right shoulder Exam date: 05/09/2019. Indications: Pain after a fall. Comparison: None. Technique: 3 views of the right shoulder were obtained. Findings: No plain film evidence of acute fracture, dislocation, or cortical destruction. IMPRESSION: No plain film evidence of acute fracture, dislocation, or cortical destruction. If symptoms persist, followup imaging in 10-14 days may be helpful. us Jennifer Lissette Mancia NP GENERAL IMAGING Final Result * CT CERV SPINE WO CON (05/09/2019 6:23 PM COMMUNICATIONS ADVISOR) Anatomical Region Laterality Modality Spine Computed Tomogra phy 05/09/2019 6:41 PM COMMUNICATIONS ADVISOR Impressions 05/09/2019 6:42 PM COMMUNICATIONS ADVISOR IMPRESSION: No evidence of acute fracture, subluxation, or prevertebral soft tissue swelling. Narrative 05/09/2019 6:[address] Cervical Spine without contrast. Exam time: 1818 hours. Exam History: Trauma. Fell backwards. Pain. Comparison: None. Technique: A noncontrast CT of the cervical spine was performed. Images were acquired in transaxial plane and reformatted in the coronal and sagittal planes. A dose lowering technique was used for this procedure, which may include, but is not limited to, dose reduction technique, automated exposure control, the use of iterative reconstruction, and ALARA (As Low As Reasonably Achievable)/ Image Gently techniques. Findings: No evidence of acute fracture, subluxation, or prevertebral soft tissue swelling. Procedure Note Tom Puentes MD - 05/09/2019 CT Cervical Spine without contrast. Exam time: 1818 hours. Exam History: Trauma. Fell backwards. Pain. Comparison: None. Technique: A noncontrast CT of the cervical spine was performed. Images wereacquired in transaxial plane and reformatted in the coronal and sagittal planes.A dose lowering technique was used for this procedure, which may include,but is not limited to, dose reduction technique, automated exposure control, the use of iterative reconstruction, and ALARA (As Low As Reasonably Achievable)/ Image Gently techniques. Findings: No evidence of acute fracture, subluxation, or prevertebral soft tissue swelling. IMPRESSION: No evidence of acute fracture, subluxation, or prevertebral soft tissue swelling. Jennifer Mancia NP CT Final Result * CT HEAD WO CON (05/09/2019 6:23 PM COMMUNICATIONS ADVISOR) Anatomical Region Laterality Modality Head Computed Tomogra phy 05/09/2019 6:35 PM COMMUNICATIONS ADVISOR Impressions 05/09/2019 6:41 PM COMMUNICATIONS ADVISOR IMPRESSION: No evidence of intracranial hemorrhage or mass-effect. Narrative 05/09/2019 6:[address] Head without contrast Exam time: 1817 hours. Exam History: Fell backwards and hit head. Pain. Comparison: None. Technique: A noncontrast CT of the head was performed. A dose lowering technique was used for this procedure, which may include, but is not limited to, dose reduction technique, automated exposure control, the use of iterative reconstruction, and ALARA (As Low As Reasonably Achievable)/ Image gently techniques. Findings: There is no evidence of acute intracranial hemorrhage or mass-effect. The ventricles and subarachnoid spaces are within normal limits. No air-fluid levels in the visualized portions of the paranasal sinuses or mastoid air cells. Procedure Note Tom Puentes MD - 05/09/2019 CT Head without contrast Exam time: 1817 hours. Exam History: Fell backwards and hit head. Pain. Comparison: None. Technique: A noncontrast CT of the head was performed. A dose lowering techniquewas used for this procedure, which may include, but is not limited to, dose reduction technique, automated exposure control, the use of iterative reconstruction, and ALARA (As Low As Reasonably Achievable)/ Imagegently techniques. Findings: There is no evidence of acute intracranial hemorrhage or mass-effect.The ventricles and subarachnoid spaces are within normal limits. Noair-fluid levels in the visualized portions of the paranasal sinuses or mastoidair cells. IMPRESSION: No evidence of intracranial hemorrhage or mass-effect. us Jennifer Mancia NP CT Final Result documented in this encounter Visit Diagnoses Diagnosis Fall- Primary Unspecified fall Post concussion syndrome Postconcussion syndrome Contusion of right shoulder, initial encounter documented in this encounter Administered Medications Inactive Administered Medications - up to 3 most recent administrations Medication Order MAR Action Action Date Dose Rate Site acetaminophen (TYLENOL) tablet 650 mg 650 mg, Oral, Once, 1 dose, On 05/09/19 at 1815, Maximum dose of acetaminophen is 4000 mg from all sources in 24 hours. Given 05/09/2019 6:32 PM COMMUNICATIONS ADVISOR 650 mg documented in this encounter Active and Recently Administered Medications Times are shown in COMMUNICATIONS ADVISOR. Scheduled Medication Order 05/07/2019 05/08/2019 05/09/2019 acetaminophen (TYLENOL) tablet 650 mg (COMPLETED) 650 mg, Oral, Once, 1 dose, On 05/09/19 at 1815, Maximum dose of acetaminophen is 4000 mg from all sources in 24 hours. 1832 (Given - Provid er: Trudi Michel RN) documented in this encounter Care Teams Property Management Assistant Relationship Specialty Start Date End Date Hemant Lopez MD PCP - General 04/09/16 02/15/24 documented as of this encounter
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
--- OUTSIDE RECORDS SUMMARY | 2024-06-06 03:21 | XMS_ITS | Encounter Summary ---
Author Organization [facility] Address [address] [place] [address]. [place], [place] [address] [place] [address] Care Team Providers Care Coal Sample Tester Name Role Phone Hemant Lopez MD Primary Care Provider + [phone] Encounter Details Date Type Department Care Team (Latest Contact Info) Description 02/13/2024 Travel Social History Tobacco Use Types Packs/Day Years Used Date Smoking Tobacco: Every Day Cigarettes Smokeless Tobacco: Never Alcohol Use Standard Drinks/Week Comments No 0 (1 standard drink = 0.6 oz pur e alcohol) [facility] Utilities Answer Date Recorded In the past 12 months has e electric, gas, oil, or water company threatened to shut off services in your home? No 02/14/2024 Humiliation, Afraid, Rape, and Kick questionnair e Answer Date Recorded Within the last year, have y ou been afraid of your partner or ex-partner? No 02/14/2024 Within the last year, have y ou been humiliated or emotionally abused in other ways by your partner or ex-partner? No Within the last year, have y ou been kicked, hit, slapped, or otherwise physically hurt by your partner or ex-partner? No 02/14/2024 Within the last year, have y ou been raped or forced to have any kind of sexual activity by your partner or ex-partner? No 02/14/2024 AUDIT-C Answer Date Recorded Frequency of Alcohol Consumption Never 08/29/2018 Average Number of Drinks Not on file 019 Frequency of Binge Drinking Not on file 10/2018 Overall Financial Resource Strain (CARDIA) Answe r Date Recorded How hard is it for you to pa y for the very basics like food, housing, medical care, and heating? Not hard at all 02/14/2024 Hunger Vital Sign Answer Date Recorded Within the past 12 months, y ou worried that your food would run out before you got the money to buy more. Never true 02/14/20 24 Within the past 12 months, t he food you bought just didn't last and you didn't have money to get more. Never true 02/14/2024 PRAPARE - Transportation Answer Date Re corded In the past 12 months, has l ack of transportation kept you from medical appointments or from getting medications? No 01/25 In the past 12 months, has l ack of transportation kept you from meetings, work, or from getting things needed for daily living? No 02/14/2024 Housing Stability Vital Sign Answer Juan e Recorded In the last 12 months, was t here a time when you were not able to pay the mortgage or rent on time? No 02/14/2024 In the past 12 months, how m any times have you moved where you were living? 0 02/14/2024 At any time in the past 12 m [facility], were you homeless or living in a alf (including now)? No 02/14/2024 Sex and Gender Information Value Date Recorded [...] Out 02/13/2024 02/13/2024 02/13/2024 11:40 PM CDT documented as of this encounter Care Teams Coal Sample Tester Relationship Specialty Start Date End Date Hemant Lopez MD PCP - General 04/09/16 02/15/24 documented as of this encounter
--- OUTSIDE RECORDS SUMMARY | 2024-06-06 03:21 | XMS_ITS | Encounter Summary ---
Author Organization [facility] Address [address] [place] [address]. [place], [place] [id number] [place] [address] Care Team Providers Care Indoor Landscape Architect Name Role Phone Hemant Lopez MD Primary Care Provider + [phone] Hemant Lopez MD Primary Care Provider + [phone] Hemant Lopez MD Primary Care Provider + [phone] Hemant Lopez MD Primary Care Provider + [phone] Encounter Details Date Type Department Care Team (Late st Contact Info) Description 11/13/2005 Emergency [facility] [place] [address] Mohinder Guillaume MD Social History Tobacco Use Types Packs/Day Years [...] on filedocumented in this encounter Care Teams Indoor Landscape Architect Relationship Specialty Start Date End Date Hemant Lopez MD PCP - General 04/09/16 02/15/24 Hemant Lopez MD PCP - General 02/19/16 04/08/16 Hemant Lopez MD PCP - General 01/30/16 02/18/16 Hemant Lopez MD PCP - General 01/22/16 01/29/16 documented as of this encounter
--- OUTSIDE RECORDS SUMMARY | 2024-06-06 03:21 | XMS_ITS | Encounter Summary ---
Author Organization [facility] Address [address] [place] [address]. [place], [place] [id number] [place] [id number] Care Team Providers Care Charging Manipulator Name Role Phone Hemant Lopez MD Primary Care Provider + [phone] Reason for Visit * Reason Comments Abdominal Pain Encounter Details Date Type Department Care Team (Late st Contact Info) Description 02/02/2019 3:09 AM CDT - 02/02/2019 5:07 AM CDT Emergency [facility] [place] [address] Don Schaffer MD Abdominal Pain Discharge Disposition: Home or Self Care (Routine [...] Sign Reading Time Taken Comments Blood Pressure 151/105 02/02/2019 5:00 AM CDT Pulse 80 02/02/2019 5:00 AM CDT Temperature 36.8 ??C (98.2 ??F) 02/02/2019 3:12 AM CD T Respiratory Rate 16 02/02/2019 5:00 AM CDT Oxygen Saturation 100% 02/02/2019 5:00 AM CDT Inhaled Oxygen Concentration - - Weight 53 kg (116 lb 13.5 oz) 02/02/2019 3:12 AM CDT Height 170.2 cm (5' 7 ) 02/02/2019 3:12 AM CDT Body Mass Index 18.3 02/02/2019 3:12 AM CDT documented in this encounter Discharge Instructions * Attachments The following attachments cannot be sent through Care Everywhere. * Crohn's Disease Discharge Instructions (Serbian) * Crohn's Disease in Adults (Serbian) documented in this encounter Medications at Time of Discharge hydrocodone-aceta minophen (NORCO) 5-325 MG tablet Take 1 tablet by mouth every 8 (eight) hours as needed for Pain. 8 tablet 11/06/2018 02/19/2024 predniSONE 20 MG tablet Take 2 tablets (40 mg total) by mouth daily for 5 days. 10 tablet 02/02/2019 02/07/2019 documented as of this encounter ED Notes * Don Schaffer MD - 02/02/2019 5:07 AM CDT Chief Complaint Chief Complaint Patient presents with ??? Abdominal Pain History of Present Illness 53-year-old male history of Crohn's disease complaining of lower abdominal pain for the past day, states it feels like a Crohn's flare, states his last flareup was in August of this year, denies vomiting, diarrhea, bloody stools, chest pain, shortness breath, fevers, or any other symptoms, has not seen his GI doctor in a few years due to insurance, is not on any current medications for Crohn's. Medical History ALLERGIES: Allergies Allergen Reactions ??? Dilaudid [Hydromorphone] Itching Makes me itch every where MEDICATIONS: Prior to Admission medications Medication Sig Start Date End Date Taking? Authorizing Provider predniSONE 20 MG tablet Take 2 tablets (40 mg total) by mouth daily for 5 days. 02/02/19 02/07/19 Ansley Schaffer MD hydrocodone-acetaminophen (NORCO) 5-325 MG tablet Take [...] Cocaine Review of Systems Review of Systems All other systems reviewed and are negative. Physical Exam Filed Vitals: 02/02/19 0312 02/02/19 0500 BP: (!) 142/96 (!) 151/105 Pulse: 105 80 Resp: 18 16 Temp: 98.2 ??F (36.8 ??C) TempSrc: Oral SpO2: 99% 100% Weight: 53 kg (116 lb 13.5 oz) Height: 5' 7 (1.702 m) Physical Exam Constitutional: He is oriented to person, place, and time. He appears well- developed and well-nourished. HENT: Head: Normocephalic. Eyes: Conjunctivae are normal. Neck: Neck supple. Cardiovascular: Normal rate, regular rhythm and normal heart sounds. Pulmonary/Chest: Effort normal and breath sounds normal. Abdominal: Soft. He exhibits no distension. Lower abdominal tenderness, no guarding or rebound Musculoskeletal: Normal range of motion. Neurological: He is alert and oriented to person, place, and time. Skin: Skin is warm and dry. Psychiatric: He has a normal mood and affect. Nursing note and vitals reviewed. Diagnostic Studies / Procedures ELECTROCARDIOGRAMS: No results found for this visit on 02/02/19. LABORATORY STUDIES: Results for orders placed or performed during the hospital encounter of 02/02/19 CBC W/DIFF AUTOMATED Result Value Ref Range WBC 6.7 4.5 - 11.0 x10'3/uL RBC 3.95 (L) 4.70 - 6.10 x10'6/uL HGB 12.6 (L) 14.0 - 18.0 G/DL HCT 37.4 (L) 43.0 - 54.0 % MCV 94.7 (H) 80.0 - 94.0 FL MCH 31.9 (H) 27.0 - 31.0 PG MCHC 33.7 32.0 - 36.0 G/DL RDW 14.3 11.5 - 14.5 % PLT 259 130 - 400 x10'3/uL MPV 7.8 (L) 9.3 - 12.2 FL DIFFERENTIAL TYPE AUTOMATED DIFFERENTIAL NEUTROPHILS 70.3 % LYMPHOCYTES 22.7 % MONOCYTES 6.2 % EOSINOPHILS 0.2 % BASOPHILS 0.3 % IMMATURE GRANS 0.3 % ABS. NEUTROPHILS TOTAL 4.68 1.80 - 7.70 x10'3/uL ABS. LYMPHOCYTES 1.51 1.00 - 4.80 x10'3/uL ABS. MONOCYTES 0.41 0.30 - 0.82 x10'3/uL ABS. EOSINOPHILS 0.01 (L) 0.04 - 0.54 x10'3/uL ABS. BASOPHILS 0.02 0.01 - 0.08 x10'3/uL ABS. IMMATURE GRANULOCYTES 0.02 0.00 - 0.49 x10'3/uL COMPREHENSIVE METABOLIC PANEL Result Value Ref Range GLUCOSE 78 70 - 99 MG/DL BUN 17 7 - 18 MG/DL CREATININE 1.12 0.7 - 1.3 MG/DL SODIUM 138 136 - 145 MMOL/L POTASSIUM 3.3 (L) 3.5 - 5.1 MMOL/L CHLORIDE 107 100 - 108 MMOL/L CO2 20.4 (L) 21 - 32 MMOL/L CALCIUM 8.7 8.5 - 10.1 MG/DL TOTAL BILIRUBIN 0.3 0.2 - 1.2 MG/DL TOTAL PROTEIN 7.0 6.4 - 8.2 G/DL ALBUMIN 3.3 (L) 3.4 - 5.0 G/DL AST 17 15 - 37 U/L ALT 21 16 - 60 U/L ALK PHOS 86 50 - 136 U/L ANION GAP 10.6 5 - 15 MMOL/L BUN CREATININE RATIO 15.2 6 - 26 A/G RATIO 0.9 (L) 1.0 - 2.0 RATIO eGFR Non-Afr. Amer. 75 (L) >90 ML/MIN/1.73 M2 eGFR Afr. Amer. 86 (L) >90 ML/MIN/1.73 M2 LIPASE Result Value Ref Range LIPASE 235 73 - 393 UNITS/L C-REACTIVE PROTEIN Result Value Ref Range C-REACTIVE PROTEIN 0.60 (H) <0.29 mg/dL IMAGING STUDIES No orders to display ED Course / Medical Decision Making MDM Number of Diagnoses or Management Options Crohn's disease (CMS/HCC): Diagnosis management comments: CRP mildly elevated, other labs unremarkable, patient feeling betterafter meds, abdominal exam benign, tolerating p.o., vital signs stable, started on prednisone, discharged home, follow-up with PMD and GI. Clinical Impression Crohn's disease (CMS/HCC) (Primary) Disposition: Discharge Don Schaffer MD 02/02/19 0651 * Kirstin Alvarez RN - 02/02/2019 3:07 AM CDT Pt complains of having real bad stomach problems abdominal pain for 3 days. Denies SOB, denies chest pain. documented in this encounter Plan of Treatment Not on file documented as of this encounter Procedures Procedure Name Priority Date/Time Associated Diagnosis Comments COMPREHENSIVE METABOLIC PANEL STAT 02/02/2019 3:51 AM CDT C-REACTIVE PROTEIN STAT 02/02/2019 3: 51 AM CDT CBC W/DIFF AUTOMATED STAT 02/02/2019 3:51 AM CDT LIPASE STAT 02/02/2019 3:51 AM CDT documented in this encounter Results * (ABNORMAL) C-REACTIVE PROTEIN (02/02/2019 3:51 AM CDT) C-REACTIVE PROTEIN 0.60(H) <0.29 mg/dL 02/02/2019 4:21 AM CDT [facility] 02/02/2019 3:51 AM CDT us Don Schaffer MD LABORATORY Final Result [facility] [address] [place] [address], [place] [phone] * LIPASE (02/02/2019 3:51 AM CDT) [facility] LIPASE 235 73 - 393 UNITS/L 02/02/2019 4:21 AM CDT [facility] 02/02/2019 3:51 AM CDT Don Schaffer MD LABORATORY Final Result [facility] [address] [place] [address], [place] [phone] * (ABNORMAL) COMPREHENSIVE METABOLIC PANEL (02/02/2019 3:51 AM CDT) [facility] GLUCOSE 78 70 - 99 MG/DL 02/02/2019 4:21 AM CDT [facility] BUN 17 7 - 18 MG/DL 02/02/2019 4:21 AM CDT [facility] CREATININE S/P/B 1.12 0.7 - 1.3 MG/DL 02/02/2019 4:21 AM CDT [facility] SODIUM S/P/B 138 136 - 145 MMOL/L 02/02/2019 4:21 AM CDT [facility] POTASSIUM S/P/B 3.3(L) 3.5 - 5.1 MMOL/L 02/02/2019 4:21 AM CDT [facility] CHLORIDE S/P/B 107 100 - 108 MMOL/L 02/02/2019 4:21 AM CDT [facility] CO2 20.4(L) 21 - 32 MMOL/L 02/02/2019 4:21 AM CDT [facility] CALCIUM S/P/B 8.7 8.5 - 10.1 MG/DL 02/02/2019 4:21 AM [facility] BILIRUBIN TOTAL S/P/B 0.3 0.2 - 1.2 MG/DL 02/02/2019 4:21 AM [facility] TOTAL PROTEIN S/P/B 7.0 6.4 - 8.2 G/DL 02/02/2019 4:21 AM [facility] ALBUMIN S/P/B 3.3(L) 3.4 - 5.0 G/DL 02/02/2019 4:21 AM [facility] AST 17 15 - 37 U/L 02/02/2019 4:21 AM [facility] ALT 21 16 - 60 U/L 02/02/2019 4:21 AM [facility] ALKALINE PHOSPHATASE S/P/B 86 50 - 136 U/L 02/02/2019 4:21 AM [facility] ANION GAP 10.6 5 - 15 MMOL/L 02/02/2019 4:21 AM [facility] BUN CREATININE RATIO 15.2 6 - 26 02/02/2019 4:21 AM [facility] A/G RATIO 0.9(L) 1.0 - 2.0 RATIO 02/02/2019 4:21 AM [facility] EGFR NON-AFR. AMER. 75(L) >90 ML/MIN/1.7 3 M2 02/02/2019 4:21 AM [facility] EGFR AFR. AMER. 86(L) >90 ML/MIN/1.7 3 M2 02/02/2019 4:21 AM [facility] Comment: NOTE: eGFR is not calculated for patients <18 years of age. This is an estimated GFR (CKD EPI) and should not be used for calculating drug doses. 02/02/2019 3:51 AM CDT Don Schaffer MD LABORATORY Final Result [facility] [address] [place] [address], [place] [phone] * (ABNORMAL) CBC W/DIFF AUTOMATED (02/02/2019 3:51 AM CDT) WBC 6.7 4.5 - 11.0 x10'3/uL 02/02/2019 4:02 AM CDT [facility] RBC 3.95(L) 4.70 - 6.10 x10'6/uL 02/02/2019 4:02 AM CDT [facility] HGB 12.6(L) 14.0 - 18.0 G/DL 02/02/2019 4:02 AM CDT [facility] HCT 37.4(L) 43.0 - 54.0 % 02/02/2019 4:02 AM CDT [facility] MCV 94.7(H) 80.0 - 94.0 FL 02/02/2019 4:02 AM CDT [facility] MCH 31.9(H) 27.0 - 31.0 PG 02/02/2019 4:02 AM CDT [facility] MCHC 33.7 32.0 - 36.0 G/DL 02/02/2019 4:02 AM CDT [facility] RDW 14.3 11.5 - 14.5 % 02/02/2019 4:02 AM CDT [facility] PLT 259 130 - 400 x10'3/uL 02/02/2019 4:02 AM CDT [facility] MPV 7.8(L) 9.3 - 12.2 FL 02/02/2019 4:02 AM CDT [facility] DIFFERENTIAL TYPE AUTOMATED DIFFERENTIAL 02/02/2019 4:02 AM CDT [facility] NEUTROPHILS % 70.3 % 02/02/2019 4:02 AM T [facility] LYMPHOCYTES % 22.7 % 02/02/2019 4:02 AM T [facility] MONOCYTES % 6.2 % 02/02/2019 4:02 AM T [facility] EOSINOPHILS 0.2 % 02/02/2019 4:02 AM T [facility] BASOPHILS 0.3 % 02/02/2019 4:02 AM T [facility] IMMATURE GRANS % 0.3 % 02/03/20 19 4:02 AM T [facility] ABS. NEUTROPHILS TOTAL 4.68 1.80 - 7.70 x10'3/uL 02/02/2019 4:02 AM T [facility] ABS. LYMPHOCYTES 1.51 1.00 - 4.80 x10'3/uL 02/02/2019 4:02 AM T [facility] ABS. MONOCYTES 0.41 0.30 - 0.82 x10'3/uL 02/02/2019 4:02 AM T [facility] ABS. EOSINOPHILS 0.01(L) 0.04 - 0.54 x10'3/uL 02/02/2019 4:02 AM T [facility] ABS. BASOPHILS 0.02 0.01 - 0.08 x10'3/uL 02/02/2019 4:02 AM T [facility] ABS. IMMATURE GRANULOCYTES 0.02 0.00 - 0.49 x10'3/uL 02/02/2019 4:02 AM [facility] 02/02/2019 3:51 AM CDT us Don Imakyure MD LABORATORY Final Result [facility] [address] [place] [address], [place] [phone] documented in this encounter Visit Diagnoses Diagnosis Crohn's disease (CMS/HCC HHS/HCC)- Primary Regional enteritis of unspecified site documented in this encounter Administered Medications Inactive Administered Medications - up to 3 most recent administrations Medication Order MAR Action Action Date Dose Rate Site ketorolac (TORADOL) injection 15 mg 15 mg, Intravenous, Once, 1 dose, On Fri02/02/19 at 0345, For IV administration, give over 15 seconds. Given 02/02/2019 3:55 AM CDT 15 mg predniSONE (DELTASONE) tablet 40 mg 40 mg, Oral, Once, 1 dose, On Fri02/02/19 at 0500 Given 02/02/2019 4:57 AM CDT 40 mg sodium chloride 0.9% bolus infusion SOLN 1,000 mL 1,000 mL, Intravenous, Administer over 15 Minutes, Once, 1 dose, On Fri02/02/19 at 0345 New Bag 02/02/2019 3:56 AM CDT 1,000 mLs documented in this encounter Active and Recently Administered Medications Times are shown in CDT. Scheduled Medication Order 01/31/2019 02/01/2019 02/02/2019 ketorolac (TORADOL) injection 15 mg (COMPLETED) 15 mg, Intravenous, Once, 1 dose, On Fri02/02/19 at 0345, For IV administration, give over 15 seconds. 0355 (Given - Provid er: Mery Clarke RN) predniSONE (DELTASONE) tablet 40 mg (COMPLETED) 40 mg, Oral, Once, 1 dose, On Fri02/02/19 at 0500 0457 (Given - Provid er: Mery Clarke RN) sodium chloride 0.9% bolus infusion SOLN 1,000 mL (COMPLETED) 1,000 mL, Intravenous, Administer over 15 Minutes, Once, 1 dose, On e 02/02/19 at 0345 0356 (New Bag - Prov ider: Mery Clarke RN)0457 (Infusion Stop Time - Provider: Mery Clarke RN) documented in this encounter Care Teams Charging Manipulator Relationship Specialty Start Date End Date Hemant Lopez MD PCP - General 04/09/16 02/15/24 documented as of this encounter
--- OUTSIDE RECORDS SUMMARY | 2024-06-06 03:21 | XMS_ITS | Encounter Summary ---
Author Organization [facility] Address [address] [place] [address]. [place], [place] [id number] [place] [id number] Care Team Providers Care Forestry Support Specialist Name Role Phone Hemant Connors MD Primary Care Provider [phone] Sabine Looney MD Primary Care Provider Reason for Referral * Procedure (Routine) - New Request Specialty Diagnoses / Procedures Referred By Laura t Referred To Contact Procedures Home [place]2 [place] [address] Phone: tel: [phone] fax: Referral ID Status Reason Start Date Expiration Date V isits Requested Visits Authorized [id number] New Request 02/19/2024 02/18/2025 1 1 * Imaging (Urgent) - Pending Review Specialty Diagnoses / Procedures Referred By Laura t Referred To Contact RADIOLOGY Procedures USE ECHOCARDIOGRAM W CON USE ECHOCARDIOGRAM Loreto Bingham PA [address] [place] [address] Phone: tel: fax: Referral ID Status Reason Start Date Expiration Date V isits Requested Visits Authorized [id number] Pending Review 02/14/2024 02/13/2025 1 1 * Imaging (Emergency) - New Request Specialty Diagnoses / Procedures Referred By Contac t Referred To Contact RADIOLOGY Procedures CTA CHEST PE PROTOCOL Ugo Billings MD,PHD [address] [place] [address] Phone: tel: fax: Referral ID Status Reason Start Date Expiration Date V isits Requested Visits Authorized [id number] New Request 02/14/2024 02/13/2025 1 1 Reason for Visit * Reason Comments Shortness Of Breath * Auth/Cert (Routine) Specialty Diagnoses / Procedures Referred By Contac t Referred To Contact Diagnoses Dyspnea Exertional dyspnea Procedures NONE Zac Farris MD [address] [place] [address] Phone: tel: [phone] fax: Referral ID Status Reason Start Date Expiration Date Visits Re quested Visits Authorized [id number] 1 1 Encounter Details Date Type Department Care Team (Late st Contact Info) Description 02/13/2024 10:44 PM CDT - 02/19/2024 1:59 PM CDT Hospital Encounter [facility] [address] [place], [place] [id number] Ugo Billings MD,PHD [address] [place] [address] Zac Farris MD [address] [place], [place] [address] [phone]) Talia Watson MD 1 [facility] [place] [id number] [phone] (Work) Mercy Torres MD [place], [place] [id number] [phone] (Work) Shortness Of Breath Discharge Disposition: Home or Self Care (Routine Discharge) Social History Tobacco Use Types Packs/Day Years Used Date Smoking Tobacco: Every Day Cigarettes Smokeless Tobacco: Never Tobacco Cessation:Ready to Q uit: Not Asked; Counseling Given: Not Answered Alcohol Use Standard Drinks/Week Comments No 0 (1 standard drink = 0.6 oz pur e alcohol) [facility] Utilities Answer Date Recorded In the past 12 months has e [employer], gas, oil, or water [employer] threatened to shut off services in your [...] any time in the past 12 m [facility], were you homeless or living in a usp (including now)? No 02/14/2024 Sex and Gender Information Value Date Recorded Sex Assigned at Not on file Legal Sex Male 6:41 PM CDT Gender Identity Not on file Sexual Orientation Not on file documented as of this encounter Last Filed Vital Signs Vital Sign Reading Time Taken Comments Blood Pressure 152/104 02/19/2024 11:36 AM CDT Pulse 138 02/19/2024 11:36 AM CDT Temperature 37.1 ??C (98.8 ??F) 02/19/2024 11:36 AM C DT Respiratory Rate 25 02/19/2024 11:36 AM CDT Oxygen Saturation 100% 02/19/2024 11:36 AM CDT Inhaled Oxygen Concentration - - Weight 65.9 kg (145 lb 4.8 oz) 02/19/2024 4:37 A M CDT Height 170.2 cm (5' 7 ) 02/13/2024 10:30 PM CDT Body Mass Index 22.76 02/13/2024 10:30 PM CDT documented in this encounter Functional Status * Question Answer Date of Assessment Author Status Do you have serious difficulty walking or climbing stairs? Yes 02/14/2024 6:10 AM CDT Patrizia Adorno RN Act [place] * Question Answer Date of Assessment Author Status Do you have difficulty dressing or bathing? No 02/14/2024 6:10 AM CDT Patrizia Adorno RN Active Because of a physical, mental, or emotional condition, do you have difficulty doing errands alone such as visiting a doctor's office or shopping? No 02/14/2024 6:10 AM CDT Patrizia Adorno RN Acti ve * Are you deaf or do you have serious difficulty hearing Answer Date of Assessment Author Status No 02/14/2024 6:10 AM Patrizia Metzger RN Active * Are you blind or do you have serious difficulty seeing, even when wearing glasses? Answer Date of Assessment Author Status No 02/14/2024 6:10 AM Patrizia Metzger RN Active * Do you have serious difficulty walking or climbing stairs? Answer Date of Assessment Author Status Yes 02/14/2024 6:10 AM Patrizia Metzger RN Active * Do you have difficulty dressing or bathing? Answer Date of Assessment Author Status No 02/14/2024 6:10 AM Patrizia Metzger RN Active * Because of a physical, mental, or emotional condition, do you have difficulty doing errands alone such as visiting a doctor's office or shopping? Answer Date of Assessment Author Status No 02/14/2024 6:10 AM Patrizia Metzger RN Active documented as of this encounter Mental Status * Question Answer Entry Date Author Status Because of a physical, mental, or emotional condition, do you have serious difficulty concentrating, remembering, or making decisions? No 02/14/2024 6:10 AM Patrizia Metzger RN Active * Because of a physical, mental, or emotional condition, do you have serious difficulty concentrating, remembering, or making decisions? Answer Entry Date Author Status No 02/14/2024 6:10 AM Patrizia Metzger RN Active documented in this encounter Discharge Summaries * Mercy Torres MD - 02/19/2024 1:10 PM CDT Images from the original note were not included. Hospitalist Discharge Summary Patient ID: Jeanie Chicas. male. 1965. Admit date: 02/13/2024 10:44 PM Discharge date and time: 02/19/24 Admitting Physician: Zac Farris MD Attending Physician: Mercy Torres MD Primary Care Physician: SABINE LOONEY MD Discharge Physician: MERCY TORRES MD Hospital Diagnosis: Dyspnea COPD exacerbation ([facility]) Admission Condition: fair Discharged Condition: Stable Code Status: Full Code Indication for Admission: Chief Complaint Patient presents with Shortness Of Breath Readmission/Mortality Score at discharge: Low 0-28, Medium 29-58, High >59 @LACEPLUS@ [facility] Course: Jeanie Chicas is a 58-year-old male with a past medical history significantfor CAD s/p CABG (2020), HTN, HLD, COPD, Crohn's disease, tobacco use disorder, alcohol use disorder, cocaine use disorder who presented to the ED for evaluation of shortness of breath. 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 He noticed increased shortness of breath while walking to work (~1.5 blocks) a few days ago, which is abnormal for him. He has noticed gradually worsening shortness of breath and dizziness with minimal activity (i.e. getting out of bed, walking to the bathroom) and worsening productive cough. No syncopal events reported. The patient was seen at [facility] yesterday and was ultimately discharged home with prednisone. The patient has taken prednisone and his inhalers without significant improvement of symptoms. Of note, the patient has not seen his python developer since 2020 after CABG. The patient admits to smoking 4-5 cigarettes daily, drinking 4 shots of vodka daily (last drink ~2 days ago), and smoking crack cocaine (last used ~2 days ago). He also admits to increased family and work stressors recently. No other acute complaints at this time. No fever, chills, chest pain, leg swelling, abdominal pain, nausea, vomiting, diarrhea, urinary symptoms, or headaches. Acute respiratory failure with hypoxemia Presented with dyspnea with minimal exertion Suspect 2/2 COPD, ? PNA, ? cardiac etiology No history of home O2 use ABG 7.42/35/66/27 CTA chest showed moderate bronchial wall thickening with tiny tree-in-bud opacities within right lung apices, no PE Echo ordered Treatment as below Titrate supplemental O2 to maintain saturations > 89% IS and Acapella Consider 6MWT prior to d/c -02/14 on 4L O2 NC, wean as tolerated -still persistently on 4-5L O2 NC -uses non rebreather after exertion Continue to wean O2 as tolerated COPD exacerbation Presented with expiratory wheezing CTA chest concerning for bronchitis and/or PNA Received IV methylprednisolone x 1 in the ED Transitioned to prednisone daily Continue IV ceftriaxone and azithromycin as below Continue home inhalers/alternatives Scheduled and PRN albuterol -consult pulmonology, appreciate recommendations Overall improving Right-sided PNA vs bronchitis COVID negative Influenza A/B ordered PCT ordered CTA chest concerning for bronchitis and/or PNA Sputum cultures ordered Continue IV ceftriaxone and azithromycin, monitor for toxicity IS and Acapella CAD S/p CABG in 2020 Reports dyspnea on exertion, but no active chest pain Has not seen python developer since 2020 after CABG BNP 151 Troponin x 2 negative EKG as noted above Echo ordered Hold carvedilol given cocaine use Continue Plavix and statin (per PDMP, awaiting pharmacy med rec) Hypertension BP elevated Hold carvedilol given cocaine use Continue amlodipine and losartan (per PDMP, awaiting pharmacy med rec) Monitor and adjust as clinically warranted Hyperlipidemia Continue statin Hypokalemia Mg WNL Replace and monitor Elevated D-dimer D-dimer 709 CTA chest showed no PE Chronic anemia Hgb ~11 No recent to compare, but last - in 2018 No obvious signs of bleeding Receives outpatient B12 injections Continue folate and thiamine (given history of alcohol use disorder) Monitor H&H and transfuse for Hgb < 7 Crohn's disease States he has not been able to get refill of Humira x 2 months Follow-up with primary GI, Dr. 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 EtOH ordered CIWA protocol MVI, thiamine, folate, electrolyte repletion Seizure precautions Encourage safe alcohol cessation CM consulted to provide resources Cocaine use disorder Reports smoking crack cocaine for over 20 years; last used ~2 days DENTAL BILLING SPECIALIST UDS ordered Hold carvedilol Encouraged cessation CM consulted to provide resources Nicotine dependence Has cut down to 4-5 cigarettes/daily Encouraged smoking cessation Declined nicotine patch Disposition: inpatient telemetry VTE Prophylaxis: SQ heparin Code Status: Full code Findings that require further workup: Consults: pulmonary/intensive care Significant Diagnostic Studies: Recent Results (from the past 24 hour(s)) BASIC METABOLIC PANEL Collection Time: 02/19/24 7:30 AM Result Value Ref Range GLUCOSE 93 70 - 99 MG/DL BUN 23 (H) 7 - 18 MG/DL CREATININE S/P/B 1.02 0.7 - 1.3 MG/DL SODIUM S/P/B 138 136 - 145 MMOL/L POTASSIUM S/P/B 3.2 (L) 3.5 - 5.1 MMOL/L CHLORIDE S/P/B 109 97 - 115 MMOL/L CO2 21.4 21 - 32 MMOL/L CALCIUM S/P/B 8.6 8.5 - 10.1 MG/DL ANION GAP 7.6 2 - 10 MMOL/L BUN CREATININE RATIO 22.5 6 - 26 GFR ESTIMATE 85 (L) >90 ML/MIN/1.73 M2 CBC W/DIFF AUTOMATED Collection Time: 02/19/24 7:30 AM Result Value Ref Range WBC 7.95 4.5 - 11.0 x10'3/uL RBC 3.78 (L) 4.70 - 6.10 x10'6/uL HGB 11.9 (L) 14.0 - 18.0 G/DL HCT 37.7 (L) 43.0 - 54.0 % MCV 99.7 (H) 80.0 - 94.0 FL MCH 31.5 (H) 27.0 - 31.0 PG MCHC 31.6 (L) 32.0 - 36.0 G/DL RDW 15.7 (H) 11.5 - 14.5 % PLT 334 130 - 400 x10'3/uL MPV 8.4 (L) 9.3 - 12.2 FL DIFFERENTIAL TYPE AUTOMATED DIFFERENTIAL NEUTROPHILS % 64.3 % LYMPHOCYTES % 25.5 % MONOCYTES % 9.7 % EOSINOPHILS 0.1 % BASOPHILS 0.1 % IMMATURE GRANS % 0.3 % ABS. NEUTROPHILS 5.11 1.80 - 7.70 x10'3/uL ABS. LYMPHOCYTES 2.03 1.00 - 4.80 x10'3/uL ABS. MONOCYTES 0.77 0.30 - 0.82 x10'3/uL ABS. EOSINOPHILS 0.01 (L) 0.04 - 0.54 x10'3/uL ABS. BASOPHILS 0.01 0.01 - 0.08 x10'3/uL ABS. IMMATURE GRANULOCYTES 0.02 0.00 - 0.49 x10'3/uL Radiology Reports : ECHO The left ventricular systolic function is hyperdynamic. Estimated left ventricular ejection fraction is >80%. Left ventricular diastolic function is normal. Wall motion appears normal in all segments. Unable to reliably quantitate pulmonary systolic pressure. Inferior vena cava shows >50% collapse with respiration consistent with normal right atrial pressure. No significant valve disease. CTA CHEST PE PROTOCOL Result Date: 02/14/2024 [facility] [address] [place], [place] [address] EXAMINATION: CTA CHEST PE PROTOCOL, 02/14/2024 1:54 AM TECHNIQUE: Computed tomographic images of the chest were obtained after the administration of 80 mL of Isovue 370 injected through the IV, without evidence of adverse reaction. Additional coronal and sagittal reformatted as well as maximum intensity projection images were generated. A dose lowering technique was used for this procedure, which may include, but is not limited to, dose reduction technique, automated exposure control, the use of iterative reconstruction, and ALARA (As Low As Reasonably Achievable) / Image Gently techniques. HISTORY: 58 -year-old male presenting to the emergency department with a chief complaint of dyspnea. He states his symptoms feel identical to past COPD. He has had increased cough with more difficult to produce sputum though it is the same color as it normally is. He was seen at an outside hospital yesterday for similar symptoms. He was prescribed steroids and given 2 breathing treatments. He has used his home inhalers as well, though cannot name what they are. He was not prescribed antibiotics. COMPARISON: Chest radiograph 02/13/2024 FINDINGS: The pulmonary arteries are well-opacified there is no pulmonary thromboembolic disease. There is no focal pulmonary consolidation. Moderate bronchial wall thickening. Tiny tree-in-bud opacities within the right lung apices. No pleural effusion. No pneumothorax.Calcified granuloma within right lower lobe. Calcified lymph nodes in the right hilum. Moderate to marked pulmonary emphysema. Heart size is normal. No pericardial abnormality. The caliber of the thoracic aorta is normal. Retained epicardial pacing wires. Findings related to prior CABG. No acute fracture nor destructive process of the visualized osseous structures. Small to medium bilateral gynecomastia. IMPRESSION: 1. No pulmonary thromboembolic disease. 2. Moderate bronchial wall thickening with [id number] opacities within the right lung apices that may be seen in the setting of bronchitis and/or pneumonia. 3. Moderate to marked pulmonary emphysema. Referred By: Interpreted By: Uday Mello MD, 02/14/2024 1:54 AM XR CHEST PORTABLE Result Date: 02/13/2024 [facility] [address] [place], [place] [address] EXAMINATION: XR CHEST PORTABLE, 02/13/2024 11:08 PM TECHNIQUE: Upright AP radiograph of the chest HISTORY: Dyspnea COMPARISON: Chest radiograph 04/12/2019 FINDINGS: Cerclage wires and fixation plates approximated median sternotomy. Potentially retained epicardial pacing wires. Surgical clips indicate history of coronary artery bypass grafting. Heart size is normal. Pulmonary vascular pattern appears within normal limits. Calcified granuloma within the right mid lung and calcified lymph nodes in right hilum. No pleural effusion. No pneumothorax. IMPRESSION: No radiographic evidence of an acute cardiopulmonary abnormality. Referred By: Interpreted By: Uday Mello MD, 02/13/2024 11:08 PM Discharge Exam: Filed Vitals: 02/19/24 0736 02/19/24 0842 02/19/24 0918 02/19/24 1136 BP: (!) 154/101 (!) 152/104 Pulse: (!) 104 (!) 148 (!) 138 Resp: 23 25 Temp: 98.8 ??F (37.1 ??C) 98.8 ??F (37.1 ??C) TempSrc: Oral Oral SpO2: 97% 99% 100% Weight: Height: Physical Exam -GENERAL: No acute distress, Well nourished -HEAD: Normocephalic, Atraumatic -EYES: Extraocular movements intact -LUNGS: Exp wheeze -CVS: Regular rate and rhythm, S1 and S2 normal -ABDOMEN: Soft, Non tender, Non distended -EXT: No edema -NEURO: Awake, alert, oriented, No gross neuro deficits -Psych: Anxious -SKIN: No significant rashes Discharge Medications: Medication List START taking these medications Morning Afternoon Evening Bedtime As Needed amLODIPine 10 MG tablet Commonly known as: NORVASC Start taking on: February 20, 2024 Take 1 tablet (10 mg total) by mouth daily. Last time this was given: 10 mg on February 19, 2024 8:30 AM Signed by: Dr. Mercy Torres Last time this was given: February 19, 2024 8:30 AM atorvastatin 40 MG tablet Commonly known as: LIPITOR Take 1 tablet (40 mg total) by mouth nightly at bedtime. Last time this was given: 40 mg on February 18, 2024 8:08 PM Signed by: Dr. Mercy Torres Last time this was given: February 18, 2024 8:08 PM clopidogrel 75 MG tablet Commonly known as: PLAVIX Start taking on: February 20, 2024 Take 1 tablet (75 mg total) by mouth daily. Last time this was given: 75 mg on February 19, 2024 8:29 AM Signed by: Dr. Mercy Torres Last time this was given: February 19, 2024 8:29 AM losartan 50 MG tablet Commonly known as: COZAAR Start taking on: February 20, 2024 Take 1 tablet (50 mg total) by mouth daily. Last time this was given: 50 mg on February 19, 2024 8:29 AM Signed by: Dr. Mercy Torres Last time this was given: February 19, 2024 8:29 AM tiotropium 2.5 MCG/ACT inhaler (SPIRIVA RESPIMAT) Commonly known as: SPIRIVA RESPIMAT Start taking on: February 20, 2024 Inhale 2 puffs into the lungs daily. Please provide assembled. Last time this was given: 2 puffs on February 19, 2024 8:40 AM Signed by: Dr. Mercy Torres Last time this was given: February 19, 2024 8:40 AM CONTINUE taking these medications Morning Afternoon Evening Bedtime As Needed acetaminophen 500 MG tablet Commonly known as: TYLENOL Take 1 tablet (500 mg total) by mouth every 6 (six) hours as needed for Pain. Signed by: Nemesio Berg albuterol sulfate HFA 108 (90 Base) MCG/ACT inhaler Inhale 2 puffs into the lungs every 6 (six) hours as needed for Wheezing. Last time this was given: Ask your nurse or doctor Signed by: Dr. Magnus Nina Last time this was given: Ask your nurse or doctor STOP taking these medications HYDROcodone-acetaminophen 5-325 MG tablet Commonly known as: [place] Disposition: Home with self care Time Spent on Discharge: more than 30 minutes Signed: MERCY TORRES MD documented in this encounter Discharge Instructions * Attachments The following attachments cannot be sent through Care Everywhere. * Clopidogrel, ADULT (Ivorian) * Going Home on Blood Thinners (Ivorian) * Tiotropium, ADULT (Ivorian) documented in this encounter Medications at Time of Discharge acetaminophen 500 MG tablet Take 1 tablet (500 mg total) by mouth every 6 (six) hours as needed for Pain. 30 tablet 05/09/2019 albuterol sulfate HFA 108 (90 Base) MCG/ACT inhaler Inhale 2 puffs into the lungs every 6 (six) hours as needed for Wheezing. 1 Inhaler 04/12/2019 albuterol sulfate HFA 108 (90 Base) MCG/ACT inhaler Inhale 2 puffs into the lungs every 6 (six) hours as needed for Wheezing. 8 g 2 02/19/2024 amLODIPine (NORVASC) 10 MG tablet Take 1 tablet (10 mg total) by mouth daily. 30 tablet 2 02/20/2024 atorvastatin (LIPITOR) 40 MG tablet Take 1 tablet (40 mg total) by mouth nightly at bedtime. 30 tablet 2 02/19/2024 clopidogrel (PLAVIX) 75 MG tablet Take 1 tablet (75 mg total) by mouth daily. 30 tablet 2 02/20/2024 fluticasone-salmet anthony (ADVAIR HFA) 230-21 MCG/ACT inhalerIndications :COPD exacerbation (CMS/HCC HHS/HCC) Inhale 2 puffs into the lungs 2 (two) times daily. 8 g 1 02/19/2024 losartan (COZAAR) 50 MG tablet Take 1 tablet (50 mg total) by mouth daily. 30 tablet 2 02/20/2024 tiotropium (SPIRIVA RESPIMAT) 2.5 MCG/ACT inhaler (SPIRIVA RESPIMAT) Inhale 2 puffs into the lungs daily. Please provide assembled. 4 g 2 02/20/2024 documented as of this encounter Progress Notes * Bárbara Puentes LCSW - 02/19/2024 11:58 AM CDT 02/19/24 1158 Discharge Planning Living Arrangements Spouse/significant other Support Systems Spouse/significant other Type of Residence Private residence Assistance Needed No Patient expects to be discharged to: Home or Self care no new needs Insurance Authorization needed No Does the patient need discharge transport arranged? No IV Infusion at discharge No DME Needed at Discharge No Pt ready for dc this date, no needs noted. * Ricarda Jhaveri MD - 02/19/2024 8:00 AM CDT Pulmonary Consultation Note History Chief Complaint Patient presents with Shortness Of Breath HPI Jeanie Chicas is a 58-year-old male with a PMHx of CAD s/p CABG (2020), HTN, HLD, COPD, Crohn's disease, tobacco use disorder, alcohol use disorder, cocaine use disorder who presents to [facility] on[facility]13[facility]24 with above CC. Pt presented to ED for evaluation of ongoing SOB, worsening over the last couple days. Patient states he is unable to walk ~1.5 blocks to work without having to stop and rest which is unusual for him. He does endorse cough with clear sputum production. ED workup shows no leukocytosis, D-dimer 709, BNP 151. CTA chest negative for PE, shows moderate bronchial wall thickening with tree-in-bud opacities in right lung apices as well as moderate to marked pulmonary emphysema. Patient being treated for CAP/COPD exacerbation. 02/16/2024: Pulmonary consulted for further recommendations. Upon interview, patient resting comfortably in bed on 2 L nasal cannula. Patient states he has had a cough since May of this year however it has progressively worsened. He notes clear-colored sputum. Patient states he has had issues with shortness of breath however it acutely worsened 3-4 days ago while walking to work. Patient does note his chest is sore from coughing. He also states he hears himself wheezing. He denies orthopnea,nasal congestion or drainage. Patient does not use his CPAP, uses Spiriva and albuterol inhalers athome. Patient notes he uses albuterol 3-4 times a day. Patient states he has previously had PFTs done at [facility] and follows with Dr. Stokes who treats his COPD/asthma. Patient also notes current tobacco abuse, alcohol abuse (drinking up to half a pint of vodka daily), and current crack cocaine and marijuana use which he uses 4 days a week. 02/17/2024: Patient resting comfortably in bed, on room air, SpO2 96%. Patient does endorse breathing feeling easier today. Notes improvement in ability to bring up phlegm. 02/18/2024: Patient resting comfortably in bed, remains on room air. Patient does endorse feeling better however notes feeling anxious about discharge. Patient notes anxiety with coughing fits and when feeling shortness of breath. 02/18: No acute events overnight; ORA; notes some pleuritic discomfort with coughing; plan for ambulatory O2 Other Pulm Relevant Hx: Fam hx: no known fam hx of lung disease. Tob: 46 years, previously smoked 1.5-2 pack/day. 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 Imaging reviewed: CXR CT 02/14/2024 1. No pulmonary thromboembolic disease. 2. Moderate bronchial wall thickening with tiny tree-in-bud opacities within the right lung apices that may be seen in the setting of bronchitis and/or pneumonia. 3. Moderate to marked pulmonary emphysema. Testing/Data reviewed: Labs: 02/14/2024: UDS cocaine+, pct wnl 02/16/2024: RVP parainfluenza 4+ Echo: 02/14/2024 The left ventricular systolic function is hyperdynamic. Estimated left ventricular ejection fraction is >80%. Left ventricular diastolic function is normal. Wall motion appears normal in all segments. Unable to reliably quantitate pulmonary systolic pressure. Inferior vena cava shows >50% collapse with respiration consistent with normal right atrial pressure. No significant valve disease. PFT: PFT 03/05/21 FEV1 1.29 L (48%), (+) BD response Sleep Studies: None on file Past Medical History: Diagnosis Date Anemia Bronchitis Crohn disease ([facility]) Hypertension Past Surgical History: Procedure Laterality Date APPENDECTOMY HC COLON RESECTION Social History Tobacco Use Smoking status: Every Day Current packs/day: 0.25 Types: Cigarettes Smokeless tobacco: Never Substance Use Topics Alcohol use: No Drug use: Yes Types: Cocaine Family History Problem Relation Name Age of Onset Hypertension Mother Hypertension Father Review of patient's allergies indicates: Allergen Reactions Dilaudid [Hydromorphone] Itching Makes me itch every where albuterol 2.5 mg Nebulization Q6H amLODIPine 10 mg Oral Daily atorvastatin 40 mg Oral Nightly at bedtime clopidogrel 75 mg Oral Daily fluticasone-salmeterol 2 puff Inhalation 2 times daily folic acid 1 mg Oral Daily Or folic acid 1 mg Intravenous Daily guaiFENesin ER 600 mg Oral BID heparin (porcine) 5,000 Units Subcutaneous 2 times per day losartan 50 mg Oral Daily multi vitamin/minerals 1 tablet Oral Daily thiamine 100 mg Oral Daily Or thiamine 100 mg Intravenous Daily tiotropium 2 puff Inhalation Daily acetaminophen, albuterol sulfate HFA, LORazepam OR LORazepam, fmozpipaf-akhjffhe-ijhkkltiwzr, melatonin, ondansetron, polyethylene glycol Review of Systems Constitutional: Negative for chills, fever, malaise/fatigue and weight loss. HENT: Negative for congestion, ear discharge, ear pain, sinus pain and sore throat. Eyes: Negative for blurred vision, double vision, discharge and redness. Respiratory: Positive for cough and shortness of breath. Negative for hemoptysis, sputum productionand wheezing. Cardiovascular: Negative for chest pain, palpitations, orthopnea and leg swelling. Gastrointestinal: Positive for heartburn. Negative for abdominal pain, blood in stool, constipation, diarrhea, nausea and vomiting. Genitourinary: Negative for dysuria, frequency and urgency. Musculoskeletal: Negative for back pain, joint pain and myalgias. Skin: Negative for itching and rash. Neurological: Negative for dizziness, tingling, weakness and headaches. Endo/Heme/Allergies: Negative for environmental allergies. Psychiatric/Behavioral: Negative for depression. The patient is not nervous/anxious and does not have insomnia. Physical Exam Filed Vitals: 02/18/24 2314 02/19/24 0437 02/19/24 0440 02/19/24 0736 BP: (!) 138/92 (!) 154/92 (!) 154/101 Pulse: (!) 110 100 95 (!) 104 Resp: Temp: 98.4 ??F (36.9 ??C) 97 ??F (36.1 ??C) 98.8 ??F (37.1 ??C) TempSrc: Oral Oral SpO2: 95% 96% 97% Weight: 65.9 kg (145 lb 4.8 oz) Height: GEN: Pleasant aam, lying in bed in NAD NEURO: Alert, appropriate PSYCH: Affect is normal HEAD: NC, AT EENT: No sinus tenderness to palpation, mallampati 2. NECK: Supple, trachea midline LN: No appreciable cervical lymphadenopathy to palpation PULM: non-labored, no wheezes, no crackles HEART: normal s1,s2, rrr, no murmur GI: non-distended, bs+ MSK: Right wrist ROM WNL EXTR: No clubbing, no edema Skin: No visible rashes, no visible tattoos Assessment # Acute hypoxic respiratory failure, resolved -AECOPD 2/2 parainfluenza # Severe COPD --In acute exacerbation --FEV1 48% # Tobacco Abuse # Alcohol abuse # Illicit drug use Plan --Supplemental oxygen to maintain saturations >88% --Ambulatory O2 prior to dc --Encourage incentive spirometer and Acapella use --Sputum culture with final normal jose eduardo -- Respiratory viral panel positive for parainfluenza 4 PCR -- Completed 3 days of azithromycin -- Continue Ceftriaxone day 5/5 --Continue prednisone 40 mg, day 5/5 -- Supportive treatment for parainfluenza --Continue Advair, Spiriva, albuterol --Resume home Symbicort and Spiriva on discharge. -- Continue Mucinex while inpatient, to prn on dc --Patient to follow-up with his outpatient mailroom personnel, Dr. Stokes. Thank you for this consult. Will sign off. RICARDA JHAVERI MD * Nikky Randolph RN - 02/19/2024 1:11 AM CDT Problem: Pain Goal: Patient's pain/discomfort is manageable Description: Assess and monitor patient's pain using appropriate pain scale. Collaborate with interdisciplinary team and initiate plan and interventions as ordered. Re-assess patient's pain level 30 - 60 minutes after pain management intervention. 02/19/2024 011 by Nikky Randolph RN Outcome: Met This Shift 02/19/2024108 by Nikky Randolph RN Outcome: Met This Shift Problem: Safety Goal: Patient will be injury free during hospitalization Description: Assess and monitor vitals signs, neurological status including level of consciousness and orientation. Assess patient's risk for falls and implement fall prevention plan of care and interventions per hospital policy. Ensure arm band on, uncluttered walking paths in room, adequate room lighting, call light and overbed table within reach, bed in low position, wheels locked, side rails up per policy, and non-skid footwear provided. 02/19/2024109 by Nikky Randolph RN Outcome: Met This Shift 02/19/2024108 by Nikky Randolph RN Outcome: Met This Shift Problem: Daily Care Goal: Daily care needs are met Description: Assess and monitor ability to perform self care and identify potential discharge needs. 02/19/2024109 by Nikky Randolph RN Outcome: Met This Shift 02/19/2024108 by Nikky Randolph RN Outcome: Met This Shift Problem: Psychosocial Needs Goal: Demonstrates ability to cope with hospitalization/illness Description: Assess and monitor patients ability to cope with his/her illness. 02/19/2024109 by Nikky Randolph RN Outcome: Met This Shift 02/19/2024108 by Nikky Randolph RN Outcome: Met This Shift Problem: Reduced risk for falls/injury Goal: Reduced Risk for Falls/Injury 02/19/2024109 by Nikky Randolph RN Outcome: Met This Shift 02/19/2024108 by Nikky Randolph RN Outcome: Met This Shift Goal: Reduced Risk of Confusion (Acute vs Chronic) 02/19/2024109 by Nikky Randolph RN Outcome: Met This Shift 02/19/2024108 by Nikky Randolph RN Outcome: Met This Shift Goal: Reduced Risk of Symptomatic Depression 02/19/2024109 by Nikky Randolph RN Outcome: Met This Shift 02/19/2024108 by Nikky Randolph RN Outcome: Met This Shift Goal: Reduced Risk of Dizziness/Vertigo/Balance Outcome: Met This Shift Problem: Anxiety Goal: Alleviation of anxiety Outcome: Progressing * Ricarda Jhaveri MD - 02/18/2024 1:53 PM CDT Pulmonary Consultation Note History Chief Complaint Patient presents with Shortness Of Breath HPI Jeanie Chicas is a 58-year-old male with a PMHx of CAD s/p CABG (2020), HTN, HLD, COPD, Crohn's disease, tobacco use disorder, alcohol use disorder, cocaine use disorder who presents to [facility] on02/13/24 with above CC. Pt presented to ED for evaluation of ongoing SOB, worsening over the last couple days. Patient states he is unable to walk ~1.5 blocks to work without having to stop and rest which is unusual for him. He does endorse cough with clear sputum production. ED workup shows no leukocytosis, D-dimer 709, BNP 151. CTA chest negative for PE, shows moderate bronchial wall thickening with tree-in-bud opacities in right lung apices as well as moderate to marked pulmonary emphysema. Patient being treated for CAP/COPD exacerbation. 02/16/2024: Pulmonary consulted for further recommendations. Upon interview, patient resting comfortably in bed on 2 L nasal cannula. Patient states he has had a cough since May of this year however it has progressively worsened. He notes clear-colored sputum. Patient states he has had issues with shortness of breath however it acutely worsened 3-4 days ago while walking to work. Patient does note his chest is sore from coughing. He also states he hears himself wheezing. He denies orthopnea,nasal congestion or drainage. Patient does not use his CPAP, uses Spiriva and albuterol inhalers athome. Patient notes he uses albuterol 3-4 times a day. Patient states he has previously had PFTs done at [facility] and follows with Dr. Stokes who treats his COPD/asthma. Patient also notes current tobacco abuse, alcohol abuse (drinking up to half a pint of vodka daily), and current crack cocaine and marijuana use which he uses 4 days a week. 02/17/2024: Patient resting comfortably in bed, on room air, SpO2 96%. Patient does endorse breathing feeling easier today. Notes improvement in ability to bring up phlegm. 02/18/2024: Patient resting comfortably in bed, remains on room air. Patient does endorse feeling better however notes feeling anxious about discharge. Patient notes anxiety with coughing fits and when feeling shortness of breath. Other Pulm Relevant Hx: Fam hx: no known fam hx of lung disease. Tob: 46 years, previously smoked 1.5-2 pack/day. 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 Imaging reviewed: CXR CT 02/14/2024 1. No pulmonary thromboembolic disease. 2. Moderate bronchial wall thickening with tiny tree-in-bud opacities within the right lung apices that may be seen in the setting of bronchitis and/or pneumonia. 3. Moderate to marked pulmonary emphysema. Testing/Data reviewed: Labs: 02/14/2024: UDS cocaine+, pct wnl 02/16/2024: RVP parainfluenza 4+ Echo: 02/14/2024 The left ventricular systolic function is hyperdynamic. Estimated left ventricular ejection fraction is >80%. Left ventricular diastolic function is normal. Wall motion appears normal in all segments. Unable to reliably quantitate pulmonary systolic pressure. Inferior vena cava shows >50% collapse with respiration consistent with normal right atrial pressure. No significant valve disease. PFT: PFT 03/05/21 FEV1 1.29 L (48%), (+) BD response Sleep Studies: None on file Past Medical History: Diagnosis Date Anemia Bronchitis Crohn disease ([facility]) Hypertension Past Surgical History: Procedure Laterality Date APPENDECTOMY HC COLON RESECTION Social History Tobacco Use Smoking status: Every Day Current packs/day: 0.25 Types: Cigarettes Smokeless tobacco: Never Substance Use Topics Alcohol use: No Drug use: Yes Types: Cocaine Family History Problem Relation Name Age of Onset Hypertension Mother Hypertension Father Review of patient's allergies indicates: Allergen Reactions Dilaudid [Hydromorphone] Itching Makes me itch every where albuterol 2.5 mg Nebulization Q6H amLODIPine 10 mg Oral Daily atorvastatin 40 mg Oral Nightly at bedtime clopidogrel 75 mg Oral Daily fluticasone-salmeterol 2 puff Inhalation 2 times daily folic acid 1 mg Oral Daily Or folic acid 1 mg Intravenous Daily guaiFENesin ER 600 mg Oral BID heparin (porcine) 5,000 Units Subcutaneous 2 times per day losartan 50 mg Oral Daily multi vitamin/minerals 1 tablet Oral Daily thiamine 100 mg Oral Daily Or thiamine 100 mg Intravenous Daily tiotropium 2 puff Inhalation Daily acetaminophen, albuterol sulfate HFA, LORazepam OR LORazepam, ezxgvbugr-frfilfbx-sbfljsjvojf, melatonin, ondansetron, polyethylene glycol Review of Systems Constitutional: Negative for chills, fever, malaise/fatigue and weight loss. HENT: Negative for congestion, ear discharge, ear pain, sinus pain and sore throat. Eyes: Negative for blurred vision, double vision, discharge and redness. Respiratory: Positive for cough, sputum production, shortness of breath and wheezing. Negative for hemoptysis. Cardiovascular: Negative for chest pain, palpitations, orthopnea and leg swelling. Gastrointestinal: Positive for heartburn. Negative for abdominal pain, blood in stool, constipation, diarrhea, nausea and vomiting. Genitourinary: Negative for dysuria, frequency and urgency. Musculoskeletal: Negative for back pain, joint pain and myalgias. Skin: Negative for itching and rash. Neurological: Negative for dizziness, tingling, weakness and headaches. Endo/Heme/Allergies: Negative for environmental allergies. Psychiatric/Behavioral: Negative for depression. The patient is not nervous/anxious and does not have insomnia. Physical Exam Filed Vitals: 02/18/24 0026 02/18/24 0407 02/18/24 0749 02/18/24 1132 BP: (!) 151/101 (!) 156/108 (!) 169/104 (!) 171/99 Pulse: 100 (!) 109 98 (!) 108 Resp: Temp: 98.4 ??F (36.9 ??C) 97.5 ??F (36.4 ??C) 98.2 ??F (36.8 ??C) 97.9 ??F (36.6 ??C) TempSrc: Oral Axillary Oral Oral SpO2: 99% 99% 100% 94% Weight: 65.8 kg (145 lb 1 oz) Height: GEN: Pleasant, in NAD NEURO: Alert, appropriate PSYCH: Affect is normal HEAD: NC, AT EENT: No sinus tenderness to palpation, mallampati 2. NECK: Supple, trachea midline LN: No appreciable cervical lymphadenopathy to palpation PULM: non-labored, left upper and lower expiratory wheezes, no crackles HEART: normal s1,s2, rrr, no murmur GI: non-distended, bs+ MSK: Right wrist ROM WNL EXTR: No clubbing, no edema Skin: No visible rashes, no visible tattoos Assessment # Acute hypoxic respiratory failure Ddx: Severe COPD exacerbation with possible asthma overlap vs recurrent bronchitis vs viral etiology vs CAP # Possible community-acquired pneumonia # Severe COPD --In acute exacerbation --FEV1 48% # Tobacco Abuse # Alcohol abuse # Illicit drug use Plan --Supplemental oxygen to maintain saturations >88% --Currently on room air --Previous room air baseline --Encourage incentive spirometer and Acapella use --Sputum culture with final normal jose eduardo -- Respiratory viral panel positive for parainfluenza 4 PCR -- Continue azithromycin day 3/3 -- Continue ceftriaxone day 4/5 --Continue prednisone 40 mg, day 4/5 -- Supportive treatment for parainfluenza --Continue Advair, Spiriva, albuterol --Patient states he uses Symbicort and Spiriva at home, and continue on discharge. -- Continue Mucinex --Patient to follow-up with his outpatient mailroom personnel, Dr. Stokes. -- Patient will need 6-minute walk test prior to discharge, anticipate tomorrow or Friday. Thank you for this consult. Will continue to follow Trudi Nam (Reavis), JANICE, SPONGE BUFFER-[facility] Pulmonary Medicine PE: General: aam, pleasant, lying in bed in NAD Neuro: Alert, appropriate Psych: Affect normal/anxious Head: NC, AT EENT: No Sinus tenderness to palpation, mallampati 2 Neck: Supple Lymph: No appreciable cervical lymphadenopathy Respiratory: non-labored, faint bilateral rhonchi, no wheezing Cardiovascular: s1,s2, rrr, no audible murmur GI: non-distended, bs+ Musc: right wrist ROM wnl Ext: no edema, no clubbing Skin: No visible rashes, No visible tattoos Discussed that I would not be prescribing him anxiolytics. Discussed with hospitalist as well Seen and examined independently; assessment/plan discussed at length, agree with documentation as noted. RICARDA JHAVERI MD * Melvina Mena RN - 02/18/2024 12:07 PM CDT 02/18/24 1206 Interdisciplinary Group Conference Team Members Present Physician;Case/Care management;Nursing;Pharmacy Physician present for group conference Basil Patient Current Status Paient current status Inpatient Barriers to Discharge Inpatient Review Barriers to Discharge Inpatient No Barrier- Medical Milestone in Process;Weaning for Oxygen in Process;Administering IV meds Patient expects to be discharged to Patient expects to be discharged to: Home or Self care no new needs 102pm Per discharge rounds, continuing to wean O2, remains on IV abx, possible discharge in 2-3 days. * Mercy Torres MD - 02/18/2024 9:24 AM CDT Hospitalist Daily Progress Note Subjective Patient is on 4-5 L O2 NC, still using NRB for recovery after any exertion in the room. Pulmonologyfollowing. Continue steroids, albuterol. Patient states he is feeling anxious, could be some withdrawal, requesting anxiety meds Objective Filed Vitals: 02/17/24 1929 02/18/24 0026 02/18/24 0407 02/18/24 0749 BP: (!) 154/104 (!) 151/101 (!) 156/108 (!) 169/104 Pulse: (!) 105 100 (!) 109 98 Resp: 16 18 Temp: 97.7 ??F (36.5 ??C) 98.4 ??F (36.9 ??C) 97.5 ??F (36.4 ??C) 98.2 ??F (36.8 ??C) TempSrc: Axillary Oral Axillary Oral SpO2: 100% 99% 99% 100% Weight: 65.8 kg (145 lb 1 oz) Height: Intake/Output 24H Total: Intake/Output Summary (Last 24 hours) at 02/18/2024 0924 Last data filed at 02/18/2024 0026 Gross per 24 hour Intake -- Output 500 ml Net -500 ml Physical Exam: -GENERAL: No acute distress, Well nourished -HEAD: Normocephalic, Atraumatic -EYES: Extraocular movements intact -LUNGS: Exp wheeze -CVS: Regular rate and rhythm, S1 and S2 normal -ABDOMEN: Soft, Non tender, Non distended -EXT: No edema -NEURO: Awake, alert, oriented, No gross neuro deficits -Psych: Anxious -SKIN: No significant rashes Medications albuterol 2.5 mg Nebulization Q6H amLODIPine 10 mg Oral Daily atorvastatin 40 mg Oral Nightly at bedtime cefTRIAXone 1 g Intravenous Q24H clopidogrel 75 mg Oral Daily fluticasone-salmeterol 2 puff Inhalation 2 times daily folic acid 1 mg Oral Daily Or folic acid 1 mg Intravenous Daily guaiFENesin ER 600 mg Oral BID heparin (porcine) 5,000 Units Subcutaneous 2 times per day losartan 50 mg Oral Daily multi vitamin/minerals 1 tablet Oral Daily thiamine 100 mg Oral Daily Or thiamine 100 mg Intravenous Daily tiotropium 2 puff Inhalation Daily acetaminophen, albuterol sulfate HFA, LORazepam OR LORazepam, gtzjfccib-snrimqzm-hjyxjgfybvd, melatonin, ondansetron, polyethylene glycol Labs, Imaging, Other Studies Recent Labs Lab 02/13/24 2313 02/14/24 0916 02/15/24 0712 02/16/24 0932 WBC 4.54 8.72 7.87 7.10 RBC 3.56* 3.46* 3.17* 3.40* HGB 11.2* 10.9* 10.1* 10.8* HCT 34.8* 33.3* 31.6* 34.6* MCV 97.8* 96.2* 99.7* 101.8* MCH 31.5* 31.5* 31.9* 31.8* MCHC 32.2 32.7 32.0 31.2* PLT 288 289 275 259 RDW 14.6* 14.9* 15.6* 15.6* MPV 8.2* 8.2* 8.4* 8.1* PERNEU 78.4 86.5 75.3 64.0 PERLYM 15.9 9.6 16.4 27.7 PERMON 5.3 3.4 8.0 7.7 NEUC 3.56 7.54 5.93 4.54 LYMC 0.72* 0.84* 1.29 1.97 MONOC 0.24* 0.30 0.63 0.55 EOSC 0.00* 0.00* 0.00* 0.00* BASOC 0.00* 0.00* 0.00* 0.02 DTYPE AUTOMATED DIFFERENTIAL AUTOMATED DIFFERENTIAL AUTOMATED DIFFERENTIAL AUTOMATED DIFFERENTIAL Recent Labs Lab 02/13/24231202/14/2491502/15/24 0712 02/16/24 0932 NA 140 140 142 138 K 3.4* 3.8 3.4* 3.2* CL 110 110 112 109 CO2 24.2 20.3* 23.7 21.3 AGAP 5.8 9.7 6.3 7.7 BUN 16 14 18 13 CR 1.16 1.22 1.01 1.03 BUNCREATININ 13.8 11.5 17.8 12.6 GLU 145* 135* 104* 159* CA 8.3* 8.8 8.3* 8.4* TP -- -- 6.1* 6.2* ALB -- -- 2.5* 2.5* TBIL -- -- 0.2 0.6 ALKP -- -- 108 111 AST -- -- 44* 45* ALT -- -- 56 60 Recent Labs Lab 02/14/24 0916 CHOL 98 TRI 78 HDL 64 LDL 18 HGBA1C 6.3* TSH 0.439 Recent Labs Lab 02/15/24 0712 INR 1.0 Recent Labs Lab 02/13/24231202/14/2416 02/14/24 1158 TROP 7 24 18 Recent Labs Lab 02/14/2416 02/15/24 0712 PROCT <0.05 <0.05 Recent Labs Lab 02/14/24 0827 PH 7.42 PCO2 35.0 PO2 66.0* [id number] 93* BICARBWB 22.7 BASEDEFICIT 1.3 No results found for this or any previous visit. Imaging USE ECHOCARDIOGRAM W CON Result Date: 02/15/2024 Echocardiography Report Pat.Name: JEANIE CHICAS.ID: [id number] St.Date: 02/14/2024 Refer.MD: LISA Exam Time: 3:02:00 PM Study Type:ECHO WITH CARDIAC DOPPLER COMP Height: 67 in Weight: 142 lb BSA: 1.75 m2 Age: 6 1965,58Y Sex: M BP: 153/91 HR: 115 bpm Sonogrphr: Jonathan Vazquez [facility] Pat. S tat.:Inpatient Room: 462 Reason for Study:Dyspnea on exertion Procedures: 2D, M- mode, Doppler, Color Flow, Definity was used to enhance endocardial definition. The study quality is technically difficult. Diagnostic quality after administration of myocardial contrast. Race: B +++++++++++++++++++++++ +++++++++++++ SUMMARY: ++++++++++++++++++++++++++++++++++++ The left ventricular systolic function is hyperdynamic. Estimated left ventricular ejection fraction is >80%. Left ventricular diastolicfunction is normal. Wall motion appears normal in all segments. Unable to reliably quantitate pulmonary systolic pressure. Inferior vena cava shows >50% collapse with respiration consistent with normal right atrial pressure. No significant valve disease. ++++++++++++++++++++++++++++++++++++ FINDINGS: ++++++++++++++++++++++++++++++++++++ LV: The left ventricular size is normal. The left ventricular systolic function is hyperdynamic. Estimated left ventricular ejection fraction is >80%. There is no left ventricular hypertrophy. Left ventricular diastolic function is normal. WM: Wall motion appears normal in all segments. RV: The right ventricular size is normal. Right ventricular systolic function is normal. IVS: No evidence of ventricular septal defect. LA: The left atrial size is normal. The left atrial volume is normal ( less than 34 ml/M2). RA: Right atrial size is normal. IAS: Atrial septum appears intact. FABRICIO: No evidence of pericardial effusion. AO: The sinus of Valsalva measures 3.0cm. PA: Estimated right atrial pressure of 3 mmHg. Unable to reliably quantitate pulmonary systolic pressure. SVn: Inferior vena cava shows >50% collapse with respiration consistent withnormal right atrial pressure. AV: The aortic valve is trileaflet. No evidence of aortic valve stenosis. No evidence of aortic valve regurgitation. MV: No evidence of significant mitral regurgitation.No evidence of mitral stenosis. PV: No evidence of pulmonic valve stenosis. No evidence of pulmonicregurgitation. TV: No evidence of tricuspid regurgitation. No evidence of tricuspid valve stenosis. ++++++++++++++++++++++++++++++++++++ MEASUREMENTS: ++++++++++++++++++++++++++++++++++++ DOPPLER LVOT LVOTpkPG 6 mmHg LVOTmnPG 3 mmHg LVOTpkVel 121 cm/s (70-110)+* LVOT SV 62 ml LVOT TVI 16.2 cm Pulmonary Veins PVnpkVeld 69.3 cm/s PVnVs/Vd 1.2 PVnpkVels 80.6 cm/s PVn A Dur 85 msec AV Forward Flow AV TVI 24.1 cm AV pkPG 9 mmHg AV pkVel 149 cm/s (100-170)+ Area (TVI) 2.55 cm2 (3-5)* AV mnPG 6 mmHg Area (Surinder) 3.09 cm2 (3-5) MV Forward Flow MV DeTm 136 msec MV E/A 0.8 MVA P1/2t 5.5 cm2 (4-6) MV pkE64.5 cm/s (60-130) MV P1/2t 40 msec (30-60)+ MV pkA 85.9 cm/s PV Forward Flow PV TVI 21.8 cm PV mnVel 83.4 cm/s PV pkVel 129 cm/s (60-90)+* PV mnPG 3 mmHg PV pkPG 7 mmHg PV AC 82 msec TV Forward FlowTV pkE 71.3 cm/s Lat E' Lat e 9.57 cm/s Lat E/E' Lat E/e 6.7 Med E' Med e 9.36 cm/s Med E/E' Med E/e 6.9 Aortic Valve Aortic Valve Ar 1.46 Aortic Valve Ve 0.81 PV Antegrade Flow Acceleration Sl 1163 cm/s2 Right Atrium Lamas's Disk 20 Right Ventricle Right Ventricle 15.8 cm/s 2D Left Ventricle LVIDd 3.75 cm (3.6-5.2) LV ESV 14.2 ml LVIDs 2.71 cm (2.3-3.9) LV ESV 19 ml LngAxd 7.9 cm LVESV BP 17.6 ml LngAxd 8.39 cm LV EF 85.7 % LV EDV 98.9 ml LV EF 78.4 % LV EDV 87.9 ml LV EF BP 81.7 % LVEDV BP 96 ml LV SV 84.8 ml LngAxs 6.15 cm LV SV 68.9 ml LngAxs 7.53 cm LV SV BP 78.4 ml LVPW LVPWd 0.947cm Right Ventricle RVIDd 2.65 cm (2.6-4.3) Right Ventricle 22 mm Right Ventricle 26.7 mm Right andLeft 0.707 Major [place] 67.5 mm Ventricular Septum IVSd 0.845 cm Left Atrium LA VOLBP 28.7 ml Aorta Ao Rtd 3 cm LVOT LVOT 2.2 cm LVOTArea 3.8 cm2 Ratios IVS Inferior vena cava IVC Diam 14.3 mm LA Biplane LAVol I BP 16.4 ml/m2 RA Single Plane Right Atrium MO 8.32 mm Right Atrium Sy 14.6 ml Right Atrium Sy 36.9 mm Right Atrium Sy 8.3 ml/m2 Right Atrium Sy 8.3 cm2 MMODE Aorta Ao Rt 2.9 cm (zsc 0.7) Aortic Valve AV sep 1.9 cm (1.5-2.6) TA Tricuspid Annul 16.4 mm <Electronic Signature> 02/15/2024 04:19 AM Semaj Smith M.D. ECG 12 lead Result Date: 02/14/[address] Test Date: 2024-02-13 Pat Name: JEANIE CHICAS Department: 41 Room: B462 Gender: Male Telehealth Nurse: : 1965 Requested By: JUNE PASCAL Order Number: [id number] Reading MD: Seamj Smith Measurements Intervals [place] Rate: 78 P: 80 RI: 120 QRS: 70 QRSD: 92 T: 54 QT: 413 QTc: 473 Interpretive Statements SINUS RHYTHM No previous ECG available for comparison CTA CHEST PE PROTOCOL Result Date: 02/14/[address] [address] EXAMINATION: CTA CHEST PE PROTOCOL, 02/14/2024 1:54 AM TECHNIQUE: Computed tomographic images of the chest were obtained after the administration of 80 mL of Isovue 370 injected through the IV, without evidence of adverse reaction. Additional coronal and sagittal reformatted as well as maximum intensity projection images were generated. A dose lowering technique was used for this procedure, which may include, but is not limited to, dose reduction technique, automated exposure control, the use of iterative reconstruction, and ALARA (As Low As Reasonably Achievable) / Image Gently techniques. HISTORY: 58 -year-old male presenting to the emergency department with a chief complaint of dyspnea. He states his symptoms feel identical to past COPD. He has had increased cough with more difficult to produce sputum though it is the same color as it normally is. He was seen at an outside hospital yesterday for similar symptoms. He was prescribed steroids and given 2 breathing treatments. He has used his home inhalers as well, though cannot name what they are. He was not prescribed antibiotics. COMPARISON: Chest radiograph 02/13/2024 FINDINGS: The pulmonary arteries are well-opacified there is no pulmonary thromboembolic disease. There is no focal pulmonary consolidation. Moderate bronchial wall thickening. Tiny tree-in-bud opacities within the right lung apices. No pleural effusion. No pneumothorax.Calcified granuloma within right lower lobe. Calcified lymph nodes in the right hilum. Moderate to marked pulmonary emphysema. Heart size is normal. No pericardial abnormality. The caliber of the thoracic aorta is normal. Retained epicardial pacing wires. Findings related to prior CABG. No acute fracture nor destructive process of the visualized osseous structures. Small to medium bilateral gynecomastia. IMPRESSION: 1. No pulmonary thromboembolic disease. 2. Moderate bronchial wall thickening with vhpgxyrj-df-ooi opacities within the right lung apices that may be seen in the setting of bronchitis and/or pneumonia. 3. Moderate to marked pulmonary emphysema. Referred By: Interpreted By: Uday Mello MD, 02/14/2024 1:54 AM XR CHEST PORTABLE Result Date: 02/13/[address] [address] EXAMINATION: XR CHEST PORTABLE, 02/13/2024 11:08 PM TECHNIQUE: Upright AP radiograph of the chest HISTORY: Dyspnea COMPARISON: Chest radiograph 04/12/2019 FINDINGS: Cerclage wires and fixation plates approximated median sternotomy. Potentially retained epicardial pacing wires. Surgical clips indicate history of coronary artery bypass grafting. Heart size is normal. Pulmonary vascular pattern appears within normal limits. Calcified granuloma within the right mid lung and calcified lymph nodes in right hilum. No pleural effusion. No pneumothorax. IMPRESSION: No radiographic evidence of an acute cardiopulmonary abnormality. Referred By: Interpreted By: Uday Mello MD, 02/13/2024 11:08 PM EKG: Results for orders placed or performed during the hospital encounter of 02/13/24 ECG 12 lead Narrative [address] Test Date: 2024-02-13 Pat Name: JEANIE CHICAS Department: 41 Room: B462 Gender: Male Telehealth Nurse: : 1965 Requested By: JUNE PASCAL Order Number: [id number] Reading MD: Semaj Smith Measurements Intervals [place] Rate: 78 P: 80 RI: 120 QRS: 70 QRSD: 92 T: 54 QT: 413 QTc: 473 Interpretive Statements SINUS RHYTHM No previous ECG available for comparison Assessment & Plan Acute respiratory failure with hypoxemia Presented with dyspnea with minimal exertion Suspect 2/2 COPD, ? PNA, ? cardiac etiology No history of home O2 use ABG 7.42/35/66/27 CTA chest showed moderate bronchial wall thickening with tiny tree-in-bud opacities within right lung apices, no PE Echo ordered Treatment as below Titrate supplemental O2 to maintain saturations > 89% IS and Acapella Consider 6MWT prior to d/c -02/14 on 4L O2 NC, wean as tolerated -still persistently on 4-5L O2 NC -uses non rebreather after exertion Continue to wean O2 as tolerated COPD exacerbation Presented with expiratory wheezing CTA chest concerning for bronchitis and/or PNA Received IV methylprednisolone x 1 in the ED Transitioned to prednisone daily Continue IV ceftriaxone and azithromycin as below Continue home inhalers/alternatives Scheduled and PRN albuterol -consult pulmonology, appreciate recommendations Overall improving Right-sided PNA vs bronchitis COVID negative Influenza A/B ordered PCT ordered CTA chest concerning for bronchitis and/or PNA Sputum cultures ordered Continue IV ceftriaxone and azithromycin, monitor for toxicity IS and Acapella CAD S/p CABG in 2020 Reports dyspnea on exertion, but no active chest pain Has not seen python developer since 2020 after CABG BNP 151 Troponin x 2 negative EKG as noted above Echo ordered Hold carvedilol given cocaine use Continue Plavix and statin (per PDMP, awaiting pharmacy med rec) Hypertension BP elevated Hold carvedilol given cocaine use Continue amlodipine and losartan (per PDMP, awaiting pharmacy med rec) Monitor and adjust as clinically warranted Hyperlipidemia Continue statin Hypokalemia Mg WNL Replace and monitor Elevated D-dimer D-dimer 709 CTA chest showed no PE Chronic anemia Hgb ~11 No recent to compare, but last 04-06 in 2019 No obvious signs of bleeding Receives outpatient B12 injections Continue folate and thiamine (given history of alcohol use disorder) Monitor H&H and transfuse for Hgb < 7 Crohn's disease States he has not been able to get refill of Humira x 2 months Follow-up with primary GI, Dr. 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 EtOH ordered [facility] protocol MVI, thiamine, folate, electrolyte repletion Seizure precautions Encourage safe alcohol cessation CM consulted to provide resources Cocaine use disorder Reports smoking crack cocaine for over 20 years; last used ~2 days DENTAL BILLING SPECIALIST UDS ordered Hold carvedilol Encouraged cessation CM consulted to provide resources Nicotine dependence Has cut down to 4-5 cigarettes/daily Encouraged smoking cessation Declined nicotine patch Disposition: inpatient telemetry VTE Prophylaxis: SQ heparin Code Status: Full code [facility] MD * CARMEN Edwards - 02/17/2024 11:04 PM CDT Problem: Pain Goal: Patient's pain/discomfort is manageable Description: Assess and monitor patient's pain using appropriate pain scale. Collaborate with interdisciplinary team and initiate plan and interventions as ordered. Re-assess patient's pain level 30 - 60 minutes after pain management intervention. Outcome: Progressing Problem: Safety Goal: Patient will be injury free during hospitalization Description: Assess and monitor vitals signs, neurological status including level of consciousness and orientation. Assess patient's risk for falls and implement fall prevention plan of care and interventions per hospital policy. Ensure arm band on, uncluttered walking paths in room, adequate room lighting, call light and overbed table within reach, bed in low position, wheels locked, side rails up per policy, and non-skid footwear provided. Outcome: Progressing Problem: Daily Care Goal: Daily care needs are met Description: Assess and monitor ability to perform self care and identify potential discharge needs. Outcome: Progressing Problem: Psychosocial Needs Goal: Demonstrates ability to cope with hospitalization/illness Description: Assess and monitor patients ability to cope with his/her illness. Outcome: Progressing * Trudi Nam NP - 02/17/2024 2:48 PM CDT Pulmonary Consultation Note History Chief Complaint Patient presents with Shortness Of Breath HPI Jeanie Chicas is a 58-year-old male with a PMHx of CAD s/p CABG (2020), HTN, HLD, COPD, Crohn's disease, tobacco use disorder, alcohol use disorder, cocaine use disorder who presents to [facility] on02/13/24 with above CC. Pt presented to ED for evaluation of ongoing SOB, worsening over the last couple days. Patient states he is unable to walk ~1.5 blocks to work without having to stop and rest which is unusual for him. He does endorse cough with clear sputum production. ED workup shows no leukocytosis, D-dimer 709, BNP 151. CTA chest negative for PE, shows moderate bronchial wall thickening with tree-in-bud opacities in right lung apices as well as moderate to marked pulmonary emphysema. Patient being treated for CAP/COPD exacerbation. 02/16/2024: Pulmonary consulted for further recommendations. Upon interview, patient resting comfortably in bed on 2 L nasal cannula. Patient states he has had a cough since May of this year however it has progressively worsened. He notes clear-colored sputum. Patient states he has had issues with shortness of breath however it acutely worsened 3-4 days ago while walking to work. Patient does note his chest is sore from coughing. He also states he hears himself wheezing. He denies orthopnea,nasal congestion or drainage. Patient does not use his CPAP, uses Spiriva and albuterol inhalers athome. Patient notes he uses albuterol 3-4 times a day. Patient states he has previously had PFTs done at [facility] and follows with Dr. Stokes who treats his COPD/asthma. Patient also notes current tobacco abuse, alcohol abuse (drinking up to half a pint of vodka daily), and current crack cocaine and marijuana use which he uses 4 days a week. 02/17/2024: Patient resting comfortably in bed, on room air, SpO2 96%. Patient does endorse breathing feeling easier today. Notes improvement in ability to bring up phlegm. Other Pulm Relevant Hx: Fam hx: no known fam hx of lung disease. Tob: 46 years, previously smoked 1.5-2 pack/day. 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 Imaging reviewed: CXR CT 02/14/2024 1. No pulmonary thromboembolic disease. 2. Moderate bronchial wall thickening with tiny tree-in-bud opacities within the right lung apices that may be seen in the setting of bronchitis and/or pneumonia. 3. Moderate to marked pulmonary emphysema. Testing/Data reviewed: Labs: 02/14/2024: UDS cocaine+, pct wnl 02/16/2024: RVP parainfluenza 4+ Echo: 02/14/2024 The left ventricular systolic function is hyperdynamic. Estimated left ventricular ejection fraction is >80%. Left ventricular diastolic function is normal. Wall motion appears normal in all segments. Unable to reliably quantitate pulmonary systolic pressure. Inferior vena cava shows >50% collapse with respiration consistent with normal right atrial pressure. No significant valve disease. PFT: PFT 03/05/21 FEV1 1.29 L (48%), (+) BD response Sleep Studies: None on file Past Medical History: Diagnosis Date Anemia Bronchitis Crohn disease ([facility]/HCC [facility]/HCC) Hypertension Past Surgical History: Procedure Laterality Date APPENDECTOMY HC COLON RESECTION Social History Tobacco Use Smoking status: Every Day Current packs/day: 0.25 Types: Cigarettes Smokeless tobacco: Never Substance Use Topics Alcohol use: No Drug use: Yes Types: Cocaine Family History Problem Relation Name Age of Onset Hypertension Mother Hypertension Father Review of patient's allergies indicates: Allergen Reactions Dilaudid [Hydromorphone] Itching Makes me itch every where albuterol 2.5 mg Nebulization Q6H amLODIPine 5 mg Oral Daily atorvastatin 40 mg Oral Nightly at bedtime cefTRIAXone 1 g Intravenous Q24H clopidogrel 75 mg Oral Daily fluticasone-salmeterol 2 puff Inhalation 2 times daily folic acid 1 mg Oral Daily Or folic acid 1 mg Intravenous Daily guaiFENesin ER 600 mg Oral BID heparin (porcine) 5,000 Units Subcutaneous 2 times per day losartan 50 mg Oral Daily multi vitamin/minerals 1 tablet Oral Daily predniSONE 40 mg Oral Daily thiamine 100 mg Oral Daily Or thiamine 100 mg Intravenous Daily tiotropium 2 puff Inhalation Daily acetaminophen, albuterol sulfate HFA, LORazepam OR LORazepam, lexbnsgwb-gdvcxoef-ciklhjjtnyw, melatonin, ondansetron, polyethylene glycol Review of Systems Constitutional: Negative for chills, fever, malaise/fatigue and weight loss. HENT: Negative for congestion, ear discharge, ear pain, sinus pain and sore throat. Eyes: Negative for blurred vision, double vision, discharge and redness. Respiratory: Positive for cough, sputum production, shortness of breath and wheezing. Negative for hemoptysis. Cardiovascular: Negative for chest pain, palpitations, orthopnea and leg swelling. Gastrointestinal: Positive for heartburn. Negative for abdominal pain, blood in stool, constipation, diarrhea, nausea and vomiting. Genitourinary: Negative for dysuria, frequency and urgency. Musculoskeletal: Negative for back pain, joint pain and myalgias. Skin: Negative for itching and rash. Neurological: Negative for dizziness, tingling, weakness and headaches. Endo/Heme/Allergies: Negative for environmental allergies. Psychiatric/Behavioral: Negative for depression. The patient is not nervous/anxious and does not have insomnia. Physical Exam Filed Vitals: 02/17/24 0740 02/17/24 0805 02/17/24 1133 02/17/24 1135 BP: (!) 157/112 (!) 180/110 (!) 178/121 Pulse: (!) 120 (!) 102 (!) 101 Resp: 20 20 Temp: 98.8 ??F (37.1 ??C) 98.8 ??F (37.1 ??C) TempSrc: Oral Oral SpO2: 93% 100% 100% 100% Weight: Height: GEN: Pleasant, in NAD NEURO: Alert, appropriate PSYCH: Affect is normal HEAD: NC, AT EENT: No sinus tenderness to palpation, mallampati 2. NECK: Supple, trachea midline LN: No appreciable cervical lymphadenopathy to palpation PULM: non-labored, left upper and lower expiratory wheezes, no crackles HEART: normal s1,s2, rrr, no murmur GI: non-distended, bs+ MSK: Right wrist ROM WNL EXTR: No clubbing, no edema Skin: No visible rashes, no visible tattoos Assessment # Acute hypoxic respiratory failure Ddx: Severe COPD exacerbation with possible asthma overlap vs recurrent bronchitis vs viral etiology vs CAP # Possible community-acquired pneumonia # Severe COPD --In acute exacerbation --FEV1 48% # Tobacco Abuse # Alcohol abuse # Illicit drug use Plan --Supplemental oxygen to maintain saturations >88% --Currently on room air --Previous room air baseline --Encourage incentive spirometer and Acapella use --Sputum culture with final normal josee duardo -- Respiratory viral panel positive for parainfluenza 4 PCR -- Continue azithromycin day 3/3 -- Continue ceftriaxone day 3/5 --Continue prednisone 40 mg, day 3/5 -- Supportive treatment for parainfluenza --Continue Advair, Spiriva, albuterol --Patient states he uses Symbicort and Spiriva at home, and continue on discharge. -- Continue Mucinex --Patient to follow-up with his outpatient mailroom personnel, Dr. Stokes. Thank you for this consult. Will continue to follow Trudi Nam DNP ([place]), [facility] Pulmonary Medicine Cosigned by Ricarda Jhaveri MD at 02/17/2024 7:30 PM CDT * Talia Watson MD - 02/17/2024 9:02 AM CDT Hospitalist Daily Progress Note Subjective Patient is on 4-5 L O2 NC, still using NRB for recovery after any exertion in the room. Pulmonologyfollowing. Continue steroids, albuterol. Objective Filed Vitals: 02/16/24 2343 02/17/24 0330 02/17/24 0740 02/17/24 0805 BP: (!) 159/96 (!) 152/101 (!) 157/112 Pulse: 98 99 (!) 120 Resp: 20 Temp: 98.1 ??F (36.7 ??C) 98.1 ??F (36.7 ??C) 98.8 ??F (37.1 ??C) TempSrc: Oral Oral Oral SpO2: 96% 95% 93% 100% Weight: 67.2 kg (148 lb 2.4 oz) Height: Intake/Output 24H Total: Intake/Output Summary (Last 24 hours) at 02/17/2024 0902 Last data filed at 02/17/2024 0800 Gross per 24 hour Intake -- Output 750 ml Net -750 ml Physical Exam: -GENERAL: No acute distress, Well nourished -HEAD: Normocephalic, Atraumatic -EYES: Extraocular movements intact -LUNGS: Exp wheeze -CVS: Regular rate and rhythm, S1 and S2 normal -ABDOMEN: Soft, Non tender, Non distended -EXT: No edema -NEURO: Awake, alert, oriented, No gross neuro deficits -SKIN: No significant rashes Medications albuterol 2.5 mg Nebulization Q6H amLODIPine 5 mg Oral Daily atorvastatin 40 mg Oral Nightly at bedtime cefTRIAXone 1 g Intravenous Q24H clopidogrel 75 mg Oral Daily fluticasone-salmeterol 2 puff Inhalation 2 times daily folic acid 1 mg Oral Daily Or folic acid 1 mg Intravenous Daily guaiFENesin ER 600 mg Oral BID heparin (porcine) 5,000 Units Subcutaneous 2 times per day losartan 50 mg Oral Daily multi vitamin/minerals 1 tablet Oral Daily predniSONE 40 mg Oral Daily thiamine 100 mg Oral Daily Or thiamine 100 mg Intravenous Daily tiotropium 2 puff Inhalation Daily acetaminophen, albuterol sulfate HFA, LORazepam OR LORazepam, ubayajgfs-cjrcthbr-ypbuplnulgy, melatonin, ondansetron, polyethylene glycol Labs, Imaging, Other Studies Recent Labs Lab 02/13/24 2313 02/14/24 0916 02/15/24 0712 02/16/24 0932 WBC 4.54 8.72 7.87 7.10 RBC 3.56* 3.46* 3.17* 3.40* HGB 11.2* 10.9* 10.1* 10.8* HCT 34.8* 33.3* 31.6* 34.6* MCV 97.8* 96.2* 99.7* 101.8* MCH 31.5* 31.5* 31.9* 31.8* MCHC 32.2 32.7 32.0 31.2* PLT 288 289 275 259 RDW 14.6* 14.9* 15.6* 15.6* MPV 8.2* 8.2* 8.4* 8.1* PERNEU 78.4 86.5 75.3 64.0 PERLYM 15.9 9.6 16.4 27.7 PERMON 5.3 3.4 8.0 7.7 NEUC 3.56 7.54 5.93 4.54 LYMC 0.72* 0.84* 1.29 1.97 MONOC 0.24* 0.30 0.63 0.55 EOSC 0.00* 0.00* 0.00* 0.00* BASOC 0.00* 0.00* 0.00* 0.02 DTYPE AUTOMATED DIFFERENTIAL AUTOMATED DIFFERENTIAL AUTOMATED DIFFERENTIAL AUTOMATED DIFFERENTIAL Recent Labs Lab 02/13/24 2313 02/14/24 0916 02/15/24 0712 02/16/24 0932 NA 140 140 142 138 K 3.4* 3.8 3.4* 3.2* CL 110 110 112 109 CO2 24.2 20.3* 23.7 21.3 AGAP 5.8 9.7 6.3 7.7 BUN 16 14 18 13 CR 1.16 1.22 1.01 1.03 BUNCREATININ 13.8 11.5 17.8 12.6 GLU 145* 135* 104* 159* CA 8.3* 8.8 8.3* 8.4* TP -- -- 6.1* 6.2* ALB -- -- 2.5* 2.5* TBIL -- -- 0.2 0.6 ALKP -- -- 108 111 AST -- -- 44* 45* ALT -- -- 56 60 Recent Labs Lab 02/14/24 0916 CHOL 98 TRI 78 HDL 64 LDL 18 HGBA1C 6.3* TSH 0.439 Recent Labs Lab 02/15/24 0712 INR 1.0 Recent Labs Lab 02/13/24 2313 02/14/24 0916 02/14/24 1158 TROP 7 24 18 Recent Labs Lab 02/14/24 0916 02/15/24 0712 PROCT <0.05 <0.05 Recent Labs Lab 02/14/24 0827 PH 7.42 PCO2 35.0 PO2 66.0* [id number] 93* BICARBWB 22.7 BASEDEFICIT 1.3 No results found for this or any previous visit. Imaging USE ECHOCARDIOGRAM W CON Result Date: 02/15/2024 Echocardiography Report Pat.Name: JEANIE CHICAS Pat.ID: [id number] St.Date: 02/14/2024 Refer.: LISA Exam Time: 3:02:00 PM Study Type:ECHO WITH CARDIAC DOPPLER COMP Height: 67 in Weight: 142 lb BSA: 1.75 m2 Age: 6 1965,58Y Sex: M BP: 153/91 HR: 115 bpm Sonogrphr: Jonathan Vazquez [facility] Pat. Stat.:Inpatient Room: 462 Reason for Study:Dyspnea on exertion Procedures: 2D, M-mode, Doppler, Color Flow, Definity was used to enhance endocardial definition. The study quality is technically difficult. Diagnostic quality after administration of myocardial contrast. Race: B +++++++++++++++++++++++ +++++++++++++ SUMMARY: ++++++++++++++++++++++++++++++++++++ The left ventricular systolic function is hyperdynamic. Estimated left ventricular ejection fraction is >80%. Left ventricular diastolicfunction is normal. Wall motion appears normal in all segments. Unable to reliably quantitate pulmonary systolic pressure. Inferior vena cava shows >50% collapse with respiration consistent with normal right atrial pressure. No significant valve disease. ++++++++++++++++++++++++++++++++++++ FINDINGS: ++++++++++++++++++++++++++++++++++++ LV: The left ventricular size is normal. The left ventricular systolic function is hyperdynamic. Estimated left ventricular ejection fraction is >80%. There is no left ventricular hypertrophy. Left ventricular diastolic function is normal. WM: Wall motion appears normal in all segments. RV: The right ventricular size is normal. Right ventricular systolic function is normal. IVS: No evidence of ventricular septal defect. LA: The left atrial size is normal. The left atrial volume is normal ( less than 34 ml/M2). RA: Right atrial size is normal. IAS: Atrial septum appears intact. FABRICIO: No evidence of pericardial effusion. AO: The sinus of Valsalva measures 3.0cm. PA: Estimated right atrial pressure of 3 mmHg. Unable to reliably quantitate pulmonary systolic pressure. SVn: Inferior vena cava shows >50% collapse with respiration consistent withnormal right atrial pressure. AV: The aortic valve is trileaflet. No evidence of aortic valve stenosis. No evidence of aortic valve regurgitation. MV: No evidence of significant mitral regurgitation. No evidence of mitral stenosis. PV: No evidence of pulmonic valve stenosis. No evidence of pulmonic regurgitation. TV: No evidence of tricuspid regurgitation. No evidence of tricuspid valve stenosis. ++++++++++++++++++++++++++++++++++++ MEASUREMENTS: ++++++++++++++++++++++++++++++++++++ DOPPLER LVOT LVOTpkPG 6 mmHg LVOTmnPG 3 mmHg LVOTpkVel 121 cm/s (70-110)+* LVOT SV 62 ml LVOT TVI 16.2 cm Pulmonary Veins PVnpkVeld 69.3 cm/s PVnVs/Vd 1.2 PVnpkVels 80.6 cm/s PVn A Dur 85 msec AV Forward Flow AV TVI 24.1 cm AV pkPG 9 mmHg AV pkVel 149 cm/s (100-170)+ Area (TVI) 2.55 cm2 (3-5)* AV mnPG 6 mmHg Area (Surinder) 3.09 cm2 (3-5) MV Forward Flow MV DeTm 136 msec MV E/A 0.8 MVA P1/2t 5.5 cm2 (4-6) MV pkE64.5 cm/s (60-130) MV P1/2t 40 msec (30-60)+ MV pkA 85.9 cm/s PV Forward Flow PV TVI 21.8 cm PV mnVel 83.4 cm/s PV pkVel 129 cm/s (60-90)+* PV mnPG 3 mmHg PV pkPG 7 mmHg PV AC 82 msec TV Forward Flow TV pkE 71.3 cm/s Lat E' Lat e 9.57 cm/s Lat E/E' Lat E/e 6.7 Med E' Med e 9.36 cm/s Med E/E' Med E/e 6.9 Aortic Valve Aortic Valve Ar 1.46 Aortic Valve Ve 0.81 PV Antegrade Flow Acceleration Sl 1163cm/s2 Right Atrium Lamas's Disk 20 Right Ventricle Right Ventricle 15.8 cm/s 2D Left Ventricle LVIDd 3.75 cm (3.6-5.2) LV ESV 14.2 ml LVIDs 2.71 cm (2.3-3.9) LV ESV 19 ml LngAxd 7.9 cm LVESV BP 17.6 ml LngAxd 8.39 cm LV EF 85.7 % LV EDV 98.9 ml LV EF 78.4 % LV EDV 87.9 ml LV EF BP 81.7 % LVEDV BP 96 ml LV SV 84.8 ml LngAxs 6.15 cm LV SV 68.9 ml LngAxs 7.53 cm LV SV BP 78.4 ml LVPW LVPWd 0.947 cm Right Ventricle RVIDd 2.65 cm (2.6-4.3) Right Ventricle 22 mm Right Ventricle 26.7 mm Right and Left 0.707 Major [place] 67.5 mm Ventricular Septum IVSd 0.845 cm Left Atrium LA VOLBP 28.7 ml AortaAo Rtd 3 cm LVOT LVOT 2.2 cm LVOTArea 3.8 cm2 Ratios IVS Inferior vena cava IVC Diam 14.3 mm LA Biplane LAVol I BP 16.4 ml/m2 RA Single Plane Right Atrium MO 8.32 mm Right Atrium Sy 14.6 ml Right Atrium Sy 36.9 mm Right Atrium Sy 8.3 ml/m2 Right Atrium Sy 8.3 cm2 MMODE Aorta Ao Rt 2.9 cm (zsc 0.7) Aortic Valve AV sep 1.9 cm (1.5-2.6) TA Tricuspid Annul 16.4 mm <Electronic Signature> 02/15/2024 04:19 AM Semaj Smith M.D. ECG 12 lead Result Date: 02/14/[address] Test Date: 2024-02-13 Pat Name: JEANIE CHICAS Department: 41 Room: B462 Gender: Male Telehealth Nurse: : 1965 Requested By: JUNE PASCAL Order Number: [id number] Reading MD: Semaj Smith Measurements Intervals [place] Rate: 78 P: 80 RI: 120 QRS: 70 QRSD: 92 T: 54 QT: 413 QTc: 473 Interpretive Statements SINUS RHYTHM No previous ECG available for comparison CTA CHEST PE PROTOCOL Result Date: 02/14/2024 [facility] [address] [place], [place] [address] EXAMINATION: CTA CHEST PE PROTOCOL, 02/14/2024 1:54 AM TECHNIQUE: Computed tomographic images of the chest were obtained after the administration of 80 mL of Isovue 370 injected through the IV, without evidence of adverse reaction. Additional coronal and sagittal reformatted as well as maximum intensity projection images were generated. A dose lowering technique was used for this procedure, which may include, but is not limited to, dose reduction technique, automated exposure control, the use of iterative reconstruction, and ALARA (As Low As Reasonably Achievable) / Image Gently techniques. HISTORY: 58 -year-old male presenting to the emergency department with a chief complaint of dyspnea. He states his symptoms feel identical to past COPD. He has had increased cough with more difficult to produce sputum though it is the same color as it normally is. He was seen at an outside hospital yesterday for similar symptoms. He was prescribed steroids and given 2 breathing treatments. He has used his home inhalers as well, though cannot name what they are. He was not prescribed antibiotics. COMPARISON: Chest radiograph 02/13/2024 FINDINGS: The pulmonary arteries are well-opacified there is no pulmonary thromboembolic disease. There is no focal pulmonary consolidation. Moderate bronchial wall thickening. Tiny tree-in-bud opacities within the right lung apices. No pleural effusion. No pneumothorax.Calcified granuloma within right lower lobe. Calcified lymph nodes in the right hilum. Moderate to marked pulmonary emphysema. Heart size is normal. No pericardial abnormality. The caliber of the thoracic aorta is normal. Retained epicardial pacing wires. Findings related to prior CABG. No acute fracture nor destructive process of the visualized osseous structures. Small to medium bilateral gynecomastia. IMPRESSION: 1. No pulmonary thromboembolic disease. 2. Moderate bronchial wall thickening with vyvkocdh-ey-[id number] opacities within the right lung apices that may be seen in the setting of bronchitis and/or pneumonia. 3. Moderate to marked pulmonary emphysema. Referred By: Interpreted By: Uday Mello MD, 02/14/2024 1:54 AM XR CHEST PORTABLE Result Date: 02/13/[address] [address] EXAMINATION: XR CHEST PORTABLE, 02/13/2024 11:08 PM TECHNIQUE: Upright AP radiograph of the chest HISTORY: Dyspnea COMPARISON: Chest radiograph 04/12/2019 FINDINGS: Cerclage wires and fixation plates approximated median sternotomy. Potentially retained epicardial pacing wires. Surgical clips indicate history of coronary artery bypass grafting. Heart size is normal. Pulmonary vascular pattern appears within normal limits. Calcified granuloma within the right mid lung and calcified lymph nodes in right hilum. No pleural effusion. No pneumothorax. IMPRESSION: No radiographic evidence of an acute cardiopulmonary abnormality. Referred By: Interpreted By: Uday Mello MD, 02/13/2024 11:08 PM EKG: Results for orders placed or performed during the hospital encounter of 02/13/24 ECG 12 lead Narrative [address] Test Date: 2024-02-13 Pat Name: JEANIE CHICAS Department: 41 Room: [facility] Gender: Male Telehealth Nurse: : 1965 Requested By: JUNE PASCAL Order Number: [id number] Reading MD: Semaj Smith Measurements Intervals [place] Rate: 78 P: 80 RI: 120 QRS: 70 QRSD: 92 T: 54 QT: 413 QTc: 473 Interpretive Statements SINUS RHYTHM No previous ECG available for comparison Assessment & Plan Acute respiratory failure with hypoxemia Presented with dyspnea with minimal exertion Suspect 2/2 COPD, ? PNA, ? cardiac etiology No history of home O2 use ABG 7.42/35/66/27 CTA chest showed moderate bronchial wall thickening with tiny tree-in-bud opacities within right lung apices, no PE Echo ordered Treatment as below Titrate supplemental O2 to maintain saturations > 89% IS and Acapella Consider 6MWT prior to d/c -02/14 on 4L O2 NC, wean as tolerated -still persistently on 4-5L O2 NC -uses non rebreather after exertion COPD exacerbation Presented with expiratory wheezing CTA chest concerning for bronchitis and/or PNA Received IV methylprednisolone x 1 in the ED Transitioned to prednisone daily Continue IV ceftriaxone and azithromycin as below Continue home inhalers/alternatives Scheduled and PRN albuterol -consult pulmonology Right-sided PNA vs bronchitis COVID negative Influenza A/B ordered PCT ordered CTA chest concerning for bronchitis and/or PNA Sputum cultures ordered Continue IV ceftriaxone and azithromycin, monitor for toxicity IS and Acapella CAD S/p CABG in 2020 Reports dyspnea on exertion, but no active chest pain Has not seen python developer since 2020 after CABG BNP 151 Troponin x 2 negative EKG as noted above Echo ordered Hold carvedilol given cocaine use Continue Plavix and statin (per PDMP, awaiting pharmacy med rec) Consider cardiology consultation pending echo results Hypertension BP elevated Hold carvedilol given cocaine use Continue amlodipine and losartan (per PDMP, awaiting pharmacy med rec) Monitor and adjust as clinically warranted Hyperlipidemia Continue statin Hypokalemia Mg WNL Replace and monitor Elevated D-dimer D-dimer 709 CTA chest showed no PE Chronic anemia Hgb ~11 No recent to compare, but last - in 2018 No obvious signs of bleeding Receives outpatient B12 injections Continue folate and thiamine (given history of alcohol use disorder) Monitor H&H and transfuse for Hgb < 7 Crohn's disease States he has not been able to get refill of Humira x 2 months Follow-up with primary GI, Dr. 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 EtOH ordered CIWA protocol MVI, thiamine, folate, electrolyte repletion Seizure precautions Encourage safe alcohol cessation CM consulted to provide resources Cocaine use disorder Reports smoking crack cocaine for over 20 years; last used ~2 days DENTAL BILLING SPECIALIST UDS ordered Hold carvedilol Encouraged cessation CM consulted to provide resources Nicotine dependence Has cut down to 4-5 cigarettes/daily Encouraged smoking cessation Declined nicotine patch Disposition: inpatient telemetry VTE Prophylaxis: SQ heparin Code Status: Full code Talia Watson MD * Nadiya Islas RN - 02/16/2024 5:42 PM CDT Problem: Pain Goal: Patient's pain/discomfort is manageable Description: Assess and monitor patient's pain using appropriate pain scale. Collaborate with interdisciplinary team and initiate plan and interventions as ordered. Re-assess patient's pain level 30 - 60 minutes after pain management intervention. Outcome: Progressing Problem: Safety Goal: Patient will be injury free during hospitalization Description: Assess and monitor vitals signs, neurological status including level of consciousness and orientation. Assess patient's risk for falls and implement fall prevention plan of care and interventions per hospital policy. Ensure arm band on, uncluttered walking paths in room, adequate room lighting, call light and overbed table within reach, bed in low position, wheels locked, side rails up per policy, and non-skid footwear provided. Outcome: Progressing Problem: Daily Care Goal: Daily care needs are met Description: Assess and monitor ability to perform self care and identify potential discharge needs. Outcome: Progressing Problem: Psychosocial Needs Goal: Demonstrates ability to cope with hospitalization/illness Description: Assess and monitor patients ability to cope with his/her illness. Outcome: Progressing Goal: Collaborate with patient/family/caregiver to identify patient specific goals for this hospitalization Outcome: Progressing Problem: Discharge Barriers Goal: Patient's discharge needs are met Description: Collaborate with interdisciplinary team and initiate plans and interventions as needed. Outcome: Progressing Problem: Reduced risk for falls/injury Goal: Reduced Risk for Falls/Injury Outcome: Progressing Goal: Reduced Risk of Confusion (Acute vs Chronic) Outcome: Progressing Goal: Reduced Risk of Symptomatic Depression Outcome: Progressing Goal: Reduced Risk of Altered Elimination Outcome: Progressing Goal: Reduced Risk of Dizziness/Vertigo/Balance Outcome: Progressing Goal: Reduced Risk of Polypharmacy Outcome: Progressing * Melvina Mena RN - 02/16/2024 10:10 AM CDT 02/16/24 1010 Referral Data Source of Information Patient Patient Information Primary Caregiver Self Current living Situation Spouse/significant other Type of Residence Private residence Support System Spouse/Significant Other 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 The screening is to screen the patient for what services and destination would be beneficial for patient for next level of care Conversation with the patient/family Will the patient be returning to prior living situation with no new identified needs? Yes Based on the screening the DC plan for consideration is: Patient expects to be discharged to: Home or Self care no new needs Adequate Resources Available Adequate Resources Yes NCM performed bedside interview: spoke with patient, verified and address Support: family Home: lives with spouse, plans to return home after discharge Ambulation: Independent prior to admission DME products: none ADLs: Independent prior to admission. 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 * Talia Watson MD - 02/16/2024 9:25 AM CDT Hospitalist Daily Progress Note Subjective Patient still having exp wheezing , on 4L O2 NC. Continue steroids, albuterol. Objective Filed Vitals: 02/15/24 2323 02/16/24 0335 02/16/24 0740 02/16/24 0810 BP: (!) 149/92 (!) 148/99 (!) 176/112 Pulse: 89 100 92 Resp: 17 18 19 Temp: 97.9 ??F (36.6 ??C) 98.2 ??F (36.8 ??C) 97.9 ??F (36.6 ??C) TempSrc: Oral Oral Oral SpO2: 100% 100% 98% 98% Weight: 67.4 kg (148 lb 9.4 oz) Height: Intake/Output 24H Total: Intake/Output Summary (Last 24 hours) at 02/16/2024 0925 Last data filed at 02/16/2024 0335 Gross per 24 hour Intake -- Output 700 ml Net -700 ml Physical Exam: -GENERAL: No acute distress, Well nourished -HEAD: Normocephalic, Atraumatic -EYES: Extraocular movements intact -LUNGS: exp wheezing -CVS: Regular rate and rhythm, S1 and S2 normal -ABDOMEN: Soft, Non tender, Non distended -EXT: No edema -NEURO: Awake, alert, oriented, No gross neuro deficits -SKIN: No significant rashes Medications albuterol 2.5 mg Nebulization Q6H amLODIPine 5 mg Oral Daily atorvastatin 40 mg Oral Nightly at bedtime cefTRIAXone 1 g Intravenous Q24H clopidogrel 75 mg Oral Daily fluticasone-salmeterol 2 puff Inhalation 2 times daily folic acid 1 mg Oral Daily Or folic acid 1 mg Intravenous Daily guaiFENesin ER 600 mg Oral BID heparin (porcine) 5,000 Units Subcutaneous 2 times per day losartan 50 mg Oral Daily multi vitamin/minerals 1 tablet Oral Daily predniSONE 40 mg Oral Daily thiamine 100 mg Oral Daily Or thiamine 100 mg Intravenous Daily tiotropium 2 puff Inhalation Daily acetaminophen, albuterol sulfate HFA, LORazepam OR LORazepam, tinewowgs-bokrmfac-gyigojqedda, melatonin, ondansetron, polyethylene glycol Labs, Imaging, Other Studies Recent Labs Lab 02/13/24 2313 02/14/24 0916 02/15/24 0712 WBC 4.54 8.72 7.87 RBC 3.56* 3.46* 3.17* HGB 11.2* 10.9* 10.1* HCT 34.8* 33.3* 31.6* MCV 97.8* 96.2* 99.7* MCH 31.5* 31.5* 31.9* MCHC 32.2 32.7 32.0 PLT 288 289 275 RDW 14.6* 14.9* 15.6* MPV 8.2* 8.2* 8.4* PERNEU 78.4 86.5 75.3 PERLYM 15.9 9.6 16.4 PERMON 5.3 3.4 8.0 NEUC 3.56 7.54 5.93 [facility] 0.72* 0.84* 1.29 MONOC 0.24* 0.30 0.63 EOSC 0.00* 0.00* 0.00* BASOC 0.00* 0.00* 0.00* DTYPE AUTOMATED DIFFERENTIAL AUTOMATED DIFFERENTIAL AUTOMATED DIFFERENTIAL Recent Labs Lab 02/13/24231202/14/24 0916 02/15/24 0712 NA 140 140 142 K 3.4* 3.8 3.4* CL 110 110 112 CO2 24.2 20.3* 23.7 AGAP 5.8 9.7 6.3 BUN 16 14 18 CR 1.16 1.22 1.01 BUNCREATININ 13.8 11.5 17.8 GLU 145* 135* 104* CA 8.3* 8.8 8.3* TP -- -- 6.1* ALB -- -- 2.5* TBIL -- -- 0.2 ALKP -- -- 108 AST -- -- 44* ALT -- -- 56 Recent Labs Lab 02/14/24 09 CHOL 98 TRI 78 HDL 64 LDL 18 HGBA1C 6.3* TSH 0.439 Recent Labs Lab 02/15/24 0712 INR 1.0 Recent Labs Lab 02/13/24231202/14/24 0902/14/24 1158 TROP 7 24 18 Recent Labs Lab 02/14/24 0916 02/15/24 0712 PROCT <0.05 <0.05 Recent Labs Lab 02/14/24 0827 PH 7.42 PCO2 35.0 PO2 66.0* [id number] 93* BICARBWB 22.7 BASEDEFICIT 1.3 No results found for this or any previous visit. Imaging USE ECHOCARDIOGRAM W CON Result Date: 02/15/2024 Echocardiography Report Pat.Name: JEANIE CHICAS Pat.ID: [id number] .Date: 02/14/2024 Refer.: LISA Exam Time: 3:02:00 PM Study Type:ECHO WITH CARDIAC DOPPLER COMP Height: 67 in Weight: 142 lb BSA: 1.75 m2 Age: 6 1965,58Y Sex: M BP: 153/91 HR: 115 bpm Sonogrphr: Jonathan Vazquez [facility] Pat. Stat.:Inpatient Room: 462 Reason for Study:Dyspnea on exertion Procedures: 2D, M-mode, Doppler, Color Flow, Definity was used to enhance endocardial definition. The study quality is technically difficult. Diagnostic quality after administration of myocardial contrast. Race: B ++++++++++++++++++++++ ++++++++++++++ SUMMARY: ++++++++++++++++++++++++++++++++++++ The left ventricular systolic functionis hyperdynamic. Estimated left ventricular ejection fraction is >80%. Left ventricular diastolic function is normal. Wall motion appears normal in all segments. Unable to reliably quantitate pulmonary systolic pressure. Inferior vena cava shows >50% collapse with respiration consistent with normal right atrial pressure. No significant valve disease. ++++++++++++++++++++++++++++++++++++ FINDINGS: ++++++++++++++++++++++++++++++++++++ LV: The left ventricular size is normal. The left ventricular systolic function is hyperdynamic. Estimated left ventricular ejection fraction is >80%. There is no left ventricular hypertrophy. Left ventricular diastolic function is normal. WM: Wall motion appears normal in all segments. RV: The right ventricular size is normal. Right ventricular systolic function is normal. IVS: No evidence of ventricular septal defect. LA: The left atrial size is normal. The left atrial volume is normal ( less than 34 ml/M2). RA: Right atrial size is normal. IAS: Atrial septum appears intact. FABRICIO: No evidence of pericardial effusion. AO: The sinus of Valsalvameasures 3.0cm. PA: Estimated right atrial pressure of 3 mmHg. Unable to reliably quantitate pulmonary systolic pressure. SVn: Inferior vena cava shows >50% collapse with respiration consistent with normal right atrial pressure. AV: The aortic valve is trileaflet. No evidence of aortic valve stenosis. No evidence of aortic valve regurgitation. MV: No evidence of significant mitral regurgitatio n. No evidence of mitral stenosis. PV: No evidence of pulmonic valve stenosis. No evidence of pulmonic regurgitation. TV: No evidence of tricuspid regurgitation. No evidence of tricuspid valve stenosis. ++++++++++++++++++++++++++++++++++++ MEASUREMENTS: ++++++++++++++++++++++++++++++++++++ DOPPLER LVOT LVOTpkPG 6 mmHg LVOTmnPG 3 mmHg LVOTpkVel 121 cm/s (70-110)+* LVOT SV 62 ml LVOT TVI 16.2 cm Pulmonary Veins PVnpkVeld 69.3 cm/s PVnVs/Vd 1.2 PVnpkVels 80.6 cm/s PVn A Dur 85 msec AV Forward Flow AV TVI 24.1 cm AV pkPG 9 mmHg AV pkVel 149 cm/s (100-170)+ Area (TVI) 2.55 cm2 (3-5)* AV mnPG 6 mmHg Area (Surinder) 3.09 cm2 (3-5) MV Forward Flow MV DeTm 136 msec MV E/A 0.8 MVA P1/2t 5.5 cm2 (4-6) MV pkE 64.5 cm/s (60-130) MV P1/2t 40 msec (30-60)+ MV pkA 85.9 cm/s PV Forward Flow PV TVI 21.8 cm PVmnVel 83.4 cm/s PV pkVel 129 cm/s (60-90)+* PV mnPG 3 mmHg PV pkPG 7 mmHg PV AC 82 msec TV ForwardFlow TV pkE 71.3 cm/s Lat E' Lat e 9.57 cm/s Lat E/E' Lat E/e 6.7 Med E' Med e 9.36 cm/s Med E/E' Med E/e 6.9 Aortic Valve Aortic Valve Ar 1.46 Aortic Valve Ve 0.81 PV Antegrade Flow Acceleration Sl 1163 cm/s2 Right Atrium Lamas's Disk 20 Right Ventricle Right Ventricle 15.8 cm/s 2D Left Ventricle LVIDd 3.75 cm (3.6-5.2) LV ESV 14.2 ml LVIDs 2.71 cm (2.3-3.9) LV ESV 19 ml LngAxd 7.9 cm LVESV BP 17.6 ml LngAxd 8.39 cm LV EF 85.7 % LV EDV 98.9 ml LV EF 78.4 % LV EDV 87.9 ml LV EF BP 81.7 % LVEDV BP 96 ml LV SV 84.8 ml LngAxs 6.15 cm LV SV 68.9 ml LngAxs 7.53 cm LV SV BP 78.4 ml LVPW LVPWd 0.947 cm Right Ventricle RVIDd 2.65 cm (2.6-4.3) Right Ventricle 22 mm Right Ventricle 26.7 mm Right and Left 0.707 Major [place] 67.5 mm Ventricular Septum IVSd 0.845 cm Left Atrium LA VOLBP 28.7 ml Aorta Ao Rtd 3 cm LVOT LVOT 2.2 cm LVOTArea 3.8 cm2 Ratios IVS Inferior vena cava IVC Diam 14.3 mm LA Biplane LAVol I BP 16.4 ml/m2 RA Single Plane Right Atrium MO 8.32 mm Right Atrium Sy 14.6 ml RightAtrium Sy 36.9 mm Right Atrium Sy 8.3 ml/m2 Right Atrium Sy 8.3 cm2 MMODE Aorta Ao Rt 2.9 cm (zsc 0.7) Aortic Valve AV sep 1.9 cm (1.5-2.6) TA Tricuspid Annul 16.4 mm <Electronic Signature> 02/15/2024 04:19 AM Semaj Smith M.D. ECG 12 lead Result Date: 02/14/[address] Test Date: 2024-02-13 Pat Name: JEANIE CHICAS Department: 41 Room: [facility] Gender: Male Telehealth Nurse: : 1965 Requested By: JUNE PASCAL Order Number: [id number] Reading MD: Semaj Smith Measurements Intervals [place] Rate: 78 P: 80 RI: 120 QRS: 70 QRSD: 92 T: 54 QT: 413 QTc: 473 Interpretive Statements SINUS RHYTHM No previous ECG available for comparison CTA CHEST PE PROTOCOL Result Date: 02/14/[address] [address] EXAMINATION: CTA CHEST PE PROTOCOL, 02/14/2024 1:54 AM TECHNIQUE: Computed tomographic images of the chest were obtained after the administration of 80 mL of Isovue 370 injected through the IV, without evidence of adverse reaction. Additional coronal and sagittal reformatted as well as maximum intensity projection images were generated. A dose lowering technique was used for this procedure, which may include, but is not limited to, dose reduction technique, automated exposure control, the use of iterative reconstruction, and ALARA (As Low As Reasonably Achievable) / Image Gently techniques. HISTORY: 58 -year-old male presenting to the emergency department with a chief complaint of dyspnea. He states his symptoms feel identical to past COPD. He has had increased cough with more difficult to produce sputum though it is the same color as it normally is. He was seen at an outside hospital yesterday for similar symptoms. He was prescribed steroids and given 2 breathing treatments. He has used his home inhalers as well, though cannot name what they are. He was not prescribed antibiotics. COMPARISON: Chest radiograph 02/13/2024 FINDINGS: The pulmonary arteries are well-opacified there is no pulmonary thromboembolic disease. There is no focal pulmonary consolidation. Moderate bronchial wall thickening. Tiny tree-in-bud opacities within the right lung apices. No pleural effusion. No pneumothorax.Calcified granuloma within right lower lobe. Calcified lymph nodes in the right hilum. Moderate to marked pulmonary emphysema. Heart size is normal. No pericardial abnormality. The caliber of the thoracic aorta is normal. Retained epicardial pacing wires. Findings related to prior CABG. No acute fracture nor destructive process of the visualized osseous structures. Small to medium bilateral gynecomastia. IMPRESSION: 1. No pulmonary thromboembolic disease. 2. Moderate bronchial wall thickening with pacxvcrb-rb-wap opacities within the right lung apices that may be seen in the setting of bronchitis and/or pneumonia. 3. Moderate to marked pulmonary emphysema. Referred By: Interpreted By: Uday Mello MD, 02/14/2024 1:54 AM XR CHEST PORTABLE Result Date: 02/13/[address] [address] EXAMINATION: XR CHEST PORTABLE, 02/13/2024 11:08 PM TECHNIQUE: Upright AP radiograph of the chest HISTORY: Dyspnea COMPARISON: Chest radiograph 04/12/2019 FINDINGS: Cerclage wires and fixation plates approximated median sternotomy. Potentially retained epicardial pacing wires. Surgical clips indicate history of coronary artery bypass grafting. Heart size is normal. Pulmonary vascular pattern appears within normal limits. Calcified granuloma within the right mid lung and calcified lymph nodes in right hilum. No pleural effusion. No pneumothorax. IMPRESSION: No radiographic evidence of an acute cardiopulmonary abnormality. Referred By: Interpreted By: Uday Mello MD, 02/13/2024 11:08 PM EKG: Results for orders placed or performed during the hospital encounter of 02/13/24 ECG 12 lead Narrative [facility] Test Date: 2024-02-13 Pat Name: JEANIE CHICAS Department: 41 Room: [facility] Gender: Male Telehealth Nurse: : 1965 Requested By: JUNE PASCAL Order Number: [id number] Reading MD: Semaj Smith Measurements Intervals [place] Rate: 78 P: 80 RI: 120 QRS: 70 QRSD: 92 T: 54 QT: 413 QTc: 473 Interpretive Statements SINUS RHYTHM No previous ECG available for comparison Assessment & Plan Acute respiratory failure with hypoxemia Presented with dyspnea with minimal exertion Suspect 2/2 COPD, ? PNA, ? cardiac etiology No history of home O2 use ABG 7.42/35/66/27 CTA chest showed moderate bronchial wall thickening with tiny tree-in-bud opacities within right lung apices, no PE Echo ordered Treatment as below Titrate supplemental O2 to maintain saturations > 89% IS and Acapella Consider 6MWT prior to d/c -02/14 on 4L O2 NC, wean as tolerated -uses non rebreather after exertion COPD exacerbation Presented with expiratory wheezing CTA chest concerning for bronchitis and/or PNA Received IV methylprednisolone x 1 in the ED Transitioned to prednisone Continue IV ceftriaxone and azithromycin as below Continue home inhalers/alternatives Scheduled and PRN albuterol -consult pulmonology , will benefit from follow up Right-sided PNA vs bronchitis COVID negative Influenza A/B ordered PCT ordered CTA chest concerning for bronchitis and/or PNA Sputum cultures ordered Continue IV ceftriaxone and azithromycin, monitor for toxicity IS and Acapella CAD S/p CABG in 2020 Reports dyspnea on exertion, but no active chest pain Has not seen python developer since 2020 after CABG BNP 151 Troponin x 2 negative EKG as noted above Echo ordered Hold carvedilol given cocaine use Continue Plavix and statin (per PDMP, awaiting pharmacy med rec) Consider cardiology consultation pending echo results Hypertension BP elevated Hold carvedilol given cocaine use Continue amlodipine and losartan (per PDMP, awaiting pharmacy med rec) Monitor and adjust as clinically warranted Hyperlipidemia Continue statin Hypokalemia Mg WNL Replace and monitor Elevated D-dimer D-dimer 709 CTA chest showed no PE Chronic anemia Hgb ~11 No recent to compare, but last - in 2018 No obvious signs of bleeding Receives outpatient B12 injections Continue folate and thiamine (given history of alcohol use disorder) Monitor H&H and transfuse for Hgb < 7 Crohn's disease States he has not been able to get refill of Humira x 2 months Follow-up with primary GI, Dr. 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 EtOH ordered CIWA protocol MVI, thiamine, folate, electrolyte repletion Seizure precautions Encourage safe alcohol cessation CM consulted to provide resources Cocaine use disorder Reports smoking crack cocaine for over 20 years; last used ~2 days DENTAL BILLING SPECIALIST UDS ordered Hold carvedilol Encouraged cessation CM consulted to provide resources Nicotine dependence Has cut down to 4-5 cigarettes/daily Encouraged smoking cessation Declined nicotine patch Disposition: inpatient telemetry VTE Prophylaxis: SQ heparin Code Status: Full code Talia Watson MD * Nicolle Saxena RN-LP - 02/16/2024 5:56 AM CDT Problem: Pain Goal: Patient's pain/discomfort is manageable Description: Assess and monitor patient's pain using appropriate pain scale. Collaborate with interdisciplinary team and initiate plan and interventions as ordered. Re-assess patient's pain level 30 - 60 minutes after pain management intervention. Outcome: Progressing Problem: Safety Goal: Patient will be injury free during hospitalization Description: Assess and monitor vitals signs, neurological status including level of consciousness and orientation. Assess patient's risk for falls and implement fall prevention plan of care and interventions per hospital policy. Ensure arm band on, uncluttered walking paths in room, adequate room lighting, call light and overbed table within reach, bed in low position, wheels locked, side rails up per policy, and non-skid footwear provided. Outcome: Progressing Problem: Daily Care Goal: Daily care needs are met Description: Assess and monitor ability to perform self care and identify potential discharge needs. Outcome: Progressing Problem: Psychosocial Needs Goal: Demonstrates ability to cope with hospitalization/illness Description: Assess and monitor patients ability to cope with his/her illness. Outcome: Progressing Goal: Collaborate with patient/family/caregiver to identify patient specific goals for this hospitalization Outcome: Progressing * Haylee Rizo RN - 02/15/2024 1:09 PM CDT Problem: Pain Goal: Patient's pain/discomfort is manageable Description: Assess and monitor patient's pain using appropriate pain scale. Collaborate with interdisciplinary team and initiate plan and interventions as ordered. Re-assess patient's pain level 30 - 60 minutes after pain management intervention. Outcome: Met This Shift Problem: Safety Goal: Patient will be injury free during hospitalization Description: Assess and monitor vitals signs, neurological status including level of consciousness and orientation. Assess patient's risk for falls and implement fall prevention plan of care and interventions per hospital policy. Ensure arm band on, uncluttered walking paths in room, adequate room lighting, call light and overbed table within reach, bed in low position, wheels locked, side rails up per policy, and non-skid footwear provided. Outcome: Met This Shift Problem: Daily Care Goal: Daily care needs are met Description: Assess and monitor ability to perform self care and identify potential discharge needs. Outcome: Met This Shift Problem: Psychosocial Needs Goal: Demonstrates ability to cope with hospitalization/illness Description: Assess and monitor patients ability to cope with his/her illness. Outcome: Met This Shift Goal: Collaborate with patient/family/caregiver to identify patient specific goals for this hospitalization Outcome: Met This Shift Problem: Discharge Barriers Goal: Patient's discharge needs are met Description: Collaborate with interdisciplinary team and initiate plans and interventions as needed. Outcome: Met This Shift * Talia Watson MD - 02/15/2024 12:14 PM CDT Hospitalist Daily Progress Note Subjective Patient on 4L O2 NC, wheezing improving. Continue steroids, albuterol. Objective Filed Vitals: 02/15/24 0353 02/15/24 0748 02/15/24 0822 02/15/24 1146 BP: (!) 161/94 (!) 154/96 (!) 166/93 Pulse: (!) 101 (!) 114 83 Resp: 14 Temp: 97.6 ??F (36.4 ??C) 98.6 ??F (37 ??C) 97.7 ??F (36.5 ??C) TempSrc: Axillary Oral Oral SpO2: 100% 99% 99% 98% Weight: Height: Intake/Output 24H Total: Intake/Output Summary (Last 24 hours) at 02/15/2024 1214 Last data filed at 02/15/2024 0822 Gross per 24 hour Intake 120 ml Output -- Net 120 ml Physical Exam: -GENERAL: No acute distress, Well nourished -HEAD: Normocephalic, Atraumatic -EYES: Extraocular movements intact -LUNGS: prolonged expirations -CVS: Regular rate and rhythm, S1 and S2 normal -ABDOMEN: Soft, Non tender, Non distended -EXT: No edema -NEURO: Awake, alert, oriented, No gross neuro deficits -SKIN: No significant rashes Medications albuterol 2.5 mg Nebulization Q6H amLODIPine 5 mg Oral Daily atorvastatin 40 mg Oral Nightly at bedtime azithromycin 500 mg Intravenous Q24H cefTRIAXone 1 g Intravenous Q24H clopidogrel 75 mg Oral Daily fluticasone-salmeterol 2 puff Inhalation 2 times daily folic acid 1 mg Oral Daily Or folic acid 1 mg Intravenous Daily guaiFENesin ER 600 mg Oral BID heparin (porcine) 5,000 Units Subcutaneous 2 times per day losartan 50 mg Oral Daily multi vitamin/minerals 1 tablet Oral Daily predniSONE 40 mg Oral Daily thiamine 100 mg Oral Daily Or thiamine 100 mg Intravenous Daily tiotropium 2 puff Inhalation Daily acetaminophen, albuterol sulfate HFA, LORazepam OR LORazepam, skgtawtjb-yoktofru-fplaufhdyrw, melatonin, ondansetron, polyethylene glycol Labs, Imaging, Other Studies Recent Labs Lab 02/13/24 2313 02/14/24 0916 02/15/24 0712 WBC 4.54 8.72 7.87 RBC 3.56* 3.46* 3.17* HGB 11.2* 10.9* 10.1* HCT 34.8* 33.3* 31.6* MCV 97.8* 96.2* 99.7* MCH 31.5* 31.5* 31.9* MCHC 32.2 32.7 32.0 PLT 288 289 275 RDW 14.6* 14.9* 15.6* MPV 8.2* 8.2* 8.4* PERNEU 78.4 86.5 75.3 PERLYM 15.9 9.6 16.4 PERMON 5.3 3.4 8.0 NEUC 3.56 7.54 5.93 [facility] 0.72* 0.84* 1.29 MONOC 0.24* 0.30 0.63 EOSC 0.00* 0.00* 0.00* BASOC 0.00* 0.00* 0.00* DTYPE AUTOMATED DIFFERENTIAL AUTOMATED DIFFERENTIAL AUTOMATED DIFFERENTIAL Recent Labs Lab 02/13/24 2313 02/14/24 0916 02/15/24 0712 NA 140 140 142 K 3.4* 3.8 3.4* CL 110 110 112 CO2 24.2 20.3* 23.7 AGAP 5.8 9.7 6.3 BUN 16 14 18 CR 1.16 1.22 1.01 BUNCREATININ 13.8 11.5 17.8 GLU 145* 135* 104* CA 8.3* 8.8 8.3* TP -- -- 6.1* ALB -- -- 2.5* TBIL -- -- 0.2 ALKP -- -- 108 AST -- -- 44* ALT -- -- 56 Recent Labs Lab 02/14/24 0916 CHOL 98 TRI 78 HDL 64 LDL 18 HGBA1C 6.3* TSH 0.439 Recent Labs Lab 02/15/24 0712 INR 1.0 Recent Labs Lab 02/13/24 2313 02/14/24 0916 02/14/24 1158 TROP 7 24 18 Recent Labs Lab 02/14/24 0916 02/15/24 0712 PROCT <0.05 <0.05 Recent Labs Lab 02/14/24 0827 PH 7.42 PCO2 35.0 PO2 66.0* [id number] 93* BICARBWB 22.7 BASEDEFICIT 1.3 No results found for this or any previous visit. Imaging USE ECHOCARDIOGRAM W CON Result Date: 02/15/2024 Echocardiography Report Pat.Name: JEANIE CHICAS Pat.ID: [id number] St.Date: 02/14/2024 Refer.MD: LISA Exam Time: 3:02:00 PM Study Type:ECHO WITH CARDIAC DOPPLER COMP Height: 67 in Weight: 142lb BSA: 1.75 m2 Age: 6 1965,58Y Sex: M BP: 153/91 HR: 115 bpm Sonogrphr: Jonathan Vaqzuez [facility] Pat. Stat.:Inpatient Room: 462 Reason for Study:Dyspnea on exertion Procedures: 2D, M-mode, Doppler, Color Flow, Definity was used to enhance endocardial definition. The study quality is technically difficult. Diagnostic quality after administration of myocardial contrast. Race: B +++++++++++++++++++++++ +++++++++++++ SUMMARY: ++++++++++++++++++++++++++++++++++++ The left ventricular systolic function is hyperdynamic. Estimated left ventricular ejection fraction is >80%. Left ventricular diastolicfunction is normal. Wall motion appears normal in all segments. Unable to reliably quantitate pulmonary systolic pressure. Inferior vena cava shows >50% collapse with respiration consistent with normal right atrial pressure. No significant valve disease. ++++++++++++++++++++++++++++++++++++ FINDINGS: ++++++++++++++++++++++++++++++++++++ LV: The left ventricular size is normal. The left ventricular systolic function is hyperdynamic. Estimated left ventricular ejection fraction is >80%. There is no left ventricular hypertrophy. Left ventricular diastolic function is normal. WM: Wall motion appears normal in all segments. RV: The right ventricular size is normal. Right ventricular systolic function is normal. IVS: No evidence of ventricular septal defect. LA: The left atrial size is normal. The left atrial volume is normal ( less than 34 ml/M2). RA: Right atrial size is normal. IAS: Atrial septum appears intact. FABRICIO: No evidence of pericardial effusion. AO: The sinus of Valsalva measures 3.0cm. PA: Estimated right atrial pressure of 3 mmHg. Unable to reliably quantitate pulmonary systolic pressure. SVn: Inferior vena cava shows >50% collapse with respiration consistent withnormal right atrial pressure. AV: The aortic valve is trileaflet. No evidence of aortic valve stenosis. No evidence of aortic valve regurgitation. MV: No evidence of significant mitral regurgitation.No evidence of mitral stenosis. PV: No evidence of pulmonic valve stenosis. No evidence of pulmonicregurgitation. TV: No evidence of tricuspid regurgitation. No evidence of tricuspid valve stenosis. ++++++++++++++++++++++++++++++++++++ MEASUREMENTS: ++++++++++++++++++++++++++++++++++++ DOPPLER LVOT LVOTpkPG 6 mmHg LVOTmnPG 3 mmHg LVOTpkVel 121 cm/s (70-110)+* LVOT SV 62 ml LVOT TVI 16.2 cm Pulmonary Veins PVnpkVeld 69.3 cm/s PVnVs/Vd 1.2 PVnpkVels 80.6 cm/s PVn A Dur 85 msec AV Forward Flow AVTVI 24.1 cm AV pkPG 9 mmHg AV pkVel 149 cm/s (100-170)+ Area (TVI) 2.55 cm2 (3-5)* AV mnPG 6 mmHg Area (Surinder) 3.09 cm2 (3-5) MV Forward Flow MV DeTm 136 msec MV E/A 0.8 MVA P1/2t 5.5 cm2 (4-6) MV pkE 64.5 cm/s (60-130) MV P1/2t 40 msec (30-60)+ MV pkA 85.9 cm/s PV Forward Flow PV TVI 21.8 cm PV mnVel 83.4 cm/s PV pkVel 129 cm/s (60-90)+* PV mnPG 3 mmHg PV pkPG 7 mmHg PV AC 82 msec TV Forward Flow TV pkE 71.3 cm/s Lat E' Lat e 9.57 cm/s Lat E/E' Lat E/e 6.7 Med E' Med e 9.36 cm/s Med E/E' Med E/e 6.9 Aortic Valve Aortic Valve Ar 1.46 Aortic Valve Ve 0.81 PV Antegrade Flow Acceleration Sl 1163 cm/s2 Right Atrium Lamas's Disk 20 Right Ventricle Right Ventricle 15.8 cm/s 2D Left Ventricle LVIDd 3.75 cm (3.6-5.2) LV ESV 14.2 ml LVIDs 2.71 cm (2.3-3.9) LV ESV 19 ml LngAxd 7.9 cm LVESV BP 17.6 ml LngAxd 8.39 cm LV EF 85.7 % LV EDV 98.9 ml LV EF 78.4 % LV EDV 87.9 ml LV EF BP 81.7 % LVEDV BP96 ml LV SV 84.8 ml LngAxs 6.15 cm LV SV 68.9 ml LngAxs 7.53 cm LV SV BP 78.4 ml LVPW LVPWd 0.947 cm Right Ventricle RVIDd 2.65 cm (2.6-4.3) Right Ventricle 22 mm Right Ventricle 26.7 mm Right and Left 0.707 Major [place] 67.5 mm Ventricular Septum IVSd 0.845 cm Left Atrium LA VOLBP 28.7 ml Aorta Ao Rtd 3 cm LVOT LVOT 2.2 cm LVOTArea 3.8 cm2 Ratios IVS Inferior vena cava IVC Diam 14.3 mm LA BiplaneLAVol I BP 16.4 ml/m2 RA Single Plane Right Atrium MO 8.32 mm Right Atrium Sy 14.6 ml Right Atrium Sy 36.9 mm Right Atrium Sy 8.3 ml/m2 Right Atrium Sy 8.3 cm2 MMODE Aorta Ao Rt 2.9 cm (zsc 0.7) Aortic Valve AV sep 1.9 cm (1.5-2.6) TA Tricuspid Annul 16.4 mm <Electronic Signature> 02/15/2024 04:19 AM Semaj Smith M.D. ECG 12 lead Result Date: 02/14/[address] Test Date: 2024-02-13 Pat Name: JEANIE CHICAS Department: 41 Room: B462 Gender: Male Telehealth Nurse: : 1965 Requested By: JUNE PASCAL Order Number: [id number] Reading MD: Semaj Smith Measurements IntervalsAxis Rate: 78 P: 80 RI: 120 QRS: 70 QRSD: 92 T: 54 QT: 413 QTc: 473 Interpretive Statements SINUS RHYTHM No previous ECG available for comparison Electronically signed by Semaj Smith at 4:31:51 CDT CTA CHEST PE PROTOCOL Result Date: 02/14/[address] [address] EXAMINATION: CTA CHEST PE PROTOCOL, 02/14/2024 1:54 AM TECHNIQUE: Computed tomographic images of the chest were obtained after the administration of 80 mL of Isovue 370 injected through the IV, without evidence of adverse reaction. Additional coronal and sagittal reformatted as well as maximum intensity projection images were generated. A dose lowering technique was used for this procedure, which may include, but is not limited to, dose reduction technique, automated exposure control, the use of iterative reconstruction, and ALARA (As Low As Reasonably Achievable) / Image Gently techniques. HISTORY: 58 -year-old male presenting to the emergency department with a chief complaint of dyspnea. He states his symptoms feel identical to past COPD. He has had increased cough with more difficult to produce sputum though it is the same color as it normally is. He was seen at an outside hospital yesterday for similar symptoms. He was prescribed steroids and given 2 breathing treatments. He has used his home inhalers as well, though cannot name what they are. He was not prescribed antibiotics. COMPARISON: Chest radiograph 02/13/2024 FINDINGS: The pulmonary arteries are well-opacified there is no pulmonary thromboembolic disease. There is no focal pulmonary consolidation. Moderate bronchial wall thickening. Tiny tree-in-bud opacities within the right lung apices. No pleural effusion. No pneumothorax.Calcified granuloma within right lower lobe. Calcified lymph nodes in the right hilum. Moderate to marked pulmonary emphysema. Heart size is normal. No pericardial abnormality. The caliber of the thoracic aorta is normal. Retained epicardial pacing wires. Findings related to prior CABG. No acute fracture nor destructive process of the visualized osseous structures. Small to medium bilateral gynecomastia. IMPRESSION: 1. No pulmonary thromboembolic disease. 2. Moderate bronchial wall thickening with oyyjuhrg-[id number] opacities within the right lung apices that may be seen in the setting of bronchitis and/or pneumonia. 3. Moderate to marked pulmonary emphysema. Referred By: Interpreted By: Uday Mello MD, 02/14/2024 1:54 AM XR CHEST PORTABLE Result Date: 02/13/[address] [address] EXAMINATION: XR CHEST PORTABLE, 02/13/2024 11:08 PM TECHNIQUE: Upright AP radiograph of the chest HISTORY: Dyspnea COMPARISON: Chest radiograph 04/12/2019 FINDINGS: Cerclage wires and fixation plates approximated median sternotomy. Potentially retained epicardial pacing wires. Surgical clips indicate history of coronary artery bypass grafting. Heart size is normal. Pulmonary vascular pattern appears within normal limits. Calcified granuloma within the right mid lung and calcified lymph nodes in right hilum. No pleural effusion. No pneumothorax. IMPRESSION: No radiographic evidence of an acute cardiopulmonary abnormality. Referred By: Interpreted By: Uday Mello MD, 02/13/2024 11:08 PM EKG: Results for orders placed or performed during the hospital encounter of 02/13/24 ECG 12 lead Narrative [address] Test Date: 2024-02-13 Pat Name: JEANIE CHICAS Department: 41 Room: [facility] Gender: Male Telehealth Nurse: : 1965 Requested By: JUNE PASCAL Order Number: [id number] Reading MD: Semaj Smith Measurements Intervals [place] Rate: 78 P: 80 RI: 120 QRS: 70 QRSD: 92 T: 54 QT: 413 QTc: 473 Interpretive Statements SINUS RHYTHM No previous ECG available for comparison Assessment & Plan Acute respiratory failure with hypoxemia Presented with dyspnea with minimal exertion Suspect 2/2 COPD, ? PNA, ? cardiac etiology No history of home O2 use ABG 7.42/35//27 CTA chest showed moderate bronchial wall thickening with tiny tree-in-bud opacities within right lung apices, no PE Echo ordered Treatment as below Titrate supplemental O2 to maintain saturations > 89% IS and Acapella Consider 6MWT prior to d/c -02/14 on 4L O2 NC, wean as tolerated -uses non rebreather after exertion COPD exacerbation Presented with expiratory wheezing CTA chest concerning for bronchitis and/or PNA Received IV methylprednisolone x 1 in the ED Transitioned to prednisone Continue IV ceftriaxone and azithromycin as below Continue home inhalers/alternatives Scheduled and PRN albuterol -consult pulmonology , will benefit from follow up Right-sided PNA vs bronchitis COVID negative Influenza A/B ordered PCT ordered CTA chest concerning for bronchitis and/or PNA Sputum cultures ordered Continue IV ceftriaxone and azithromycin, monitor for toxicity IS and Acapella CAD S/p CABG in 2020 Reports dyspnea on exertion, but no active chest pain Has not seen python developer since 2020 after CABG BNP 151 Troponin x 2 negative EKG as noted above Echo ordered Hold carvedilol given cocaine use Continue Plavix and statin (per PDMP, awaiting pharmacy med rec) Consider cardiology consultation pending echo results Hypertension BP elevated Hold carvedilol given cocaine use Continue amlodipine and losartan (per PDMP, awaiting pharmacy med rec) Monitor and adjust as clinically warranted Hyperlipidemia Continue statin Hypokalemia Mg WNL Replace and monitor Elevated D-dimer D-dimer 709 CTA chest showed no PE Chronic anemia Hgb ~11 No recent to compare, but last 04-06 in 2018 No obvious signs of bleeding Receives outpatient B12 injections Continue folate and thiamine (given history of alcohol use disorder) Monitor H&H and transfuse for Hgb < 7 Crohn's disease States he has not been able to get refill of Humira x 2 months Follow-up with primary GI, Dr. 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 EtOH ordered CIWA protocol MVI, thiamine, folate, electrolyte repletion Seizure precautions Encourage safe alcohol cessation CM consulted to provide resources Cocaine use disorder Reports smoking crack cocaine for over 20 years; last used ~2 days DENTAL BILLING SPECIALIST UDS ordered Hold carvedilol Encouraged cessation CM consulted to provide resources Nicotine dependence Has cut down to 4-5 cigarettes/daily Encouraged smoking cessation Declined nicotine patch Disposition: Observation - Pending clinical improvement and work-up above VTE Prophylaxis: SQ heparin Code Status: Full code Talia Watson MD documented in this encounter H&P Notes * RHETT Zepeda - 02/14/2024 7:42 AM CDT Hospitalist History & Physical Patient: Jeanie Chicas Date: 02/14/2024 male, 58-year-old Admit Date: 02/13/2024 Attending: Talia Watson MD PCP: HEMANT CONNORS MD CHIEF COMPLAINT: Shortness of breath HISTORY OF PRESENT ILLNESS Jeanie Chicas is a 58-year-old male with a past medical history significant for CAD s/p CABG(2020), HTN, HLD, COPD, Crohn's disease, tobacco use disorder, alcohol use disorder, cocaine use disorder who presented to the ED for evaluation of shortness of breath. 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 He noticed increased shortness of breath while walking to work (~1.5 blocks) a few days ago, which is abnormal for him. He has noticed gradually worsening shortness of breath and dizziness with minimal activity (i.e. getting out of bed, walking to the bathroom) and worsening productive cough. No syncopal events reported. The patient was seen at OSH ED yesterday and was ultimately discharged home with prednisone. The patient has taken prednisone and his inhalers without significant improvement of symptoms. Of note, the patient has not seen his python developer since 2020 after CABG. The patient admits to smoking 4-5 cigarettes daily, drinking 4 shots of vodka daily (last drink ~2 days ago), and smoking crack cocaine (last used ~2 days ago). He also admits to increased family and work stressors recently. No other acute complaints at this time. No fever, chills, chest pain, leg swelling, abdominal pain, nausea, vomiting, diarrhea, urinary symptoms, orheadaches. History obtained via chart review and discussion with the patient. REVIEW OF SYSTEMS A 14 point Review of Systems was taken and is negative other than that mentioned in the History of Present Illness. ALLERGY Review of patient's allergies indicates: Allergen Reactions Dilaudid [Hydromorphone] Itching Makes me itch every where MEDICATIONS Medications Prior to Admission Medication Sig Dispense Refill albuterol sulfate HFA 108 (90 Base) MCG/ACT inhaler Inhale 2 puffs into the lungs every 6 (six) hours as needed for Wheezing. 1 Inhaler 0 acetaminophen 500 MG tablet Take 1 tablet (500 mg total) by mouth every 6 (six) hours as needed forPain. 30 tablet 0 hydrocodone-acetaminophen (NORCO) 5-325 MG tablet Take 1 tablet by mouth every 8 (eight) hours as needed for Pain. 8 tablet 0 No current facility-administered medications on file prior to encounter. Current Outpatient Medications on File Prior to Encounter Medication Sig Dispense Refill albuterol sulfate HFA 108 (90 Base) MCG/ACT inhaler Inhale 2 puffs into the lungs every 6 (six) hours as needed for Wheezing. 1 Inhaler 0 acetaminophen 500 MG tablet Take 1 tablet (500 mg total) by mouth every 6 (six) hours as needed forPain. 30 tablet 0 hydrocodone-acetaminophen (NORCO) 5-325 MG tablet Take 1 tablet by mouth every 8 (eight) hours as needed for Pain. 8 tablet 0 I have reviewed current outpatient medications and reconciled them for inpatient admission. Appropriate medications to be continued. Inappropriate medications to be held for now. PAST MEDICAL HISTORY Past Medical History: Diagnosis Date Anemia Bronchitis Crohn disease ([facility]) Hypertension Past Surgical History: Procedure Laterality Date APPENDECTOMY HC COLON RESECTION SOCIAL HISTORY Social History Socioeconomic History Marital status: Tobacco Use Smoking status: Every Day Current packs/day: 0.25 Types: Cigarettes Smokeless tobacco: Never Substance and Sexual Activity Alcohol use: No Drug use: Yes Types: Cocaine Social Determinants of Health Financial Resource Strain: Low Risk (02/14/2024) Overall Financial Resource Strain (CARDIA) Difficulty of Paying Living Expenses: Not hard at all Food Insecurity: No Food Insecurity (02/14/2024) Hunger Vital Sign Worried About Running Out of Food in the Last Year: Never true Ran Out of Food in the Last Year: Never true Transportation Needs: No Transportation Needs (02/14/2024) PRAPARE - Transportation Lack of Transportation (Medical): No Lack of Transportation (Non-Medical): No Intimate Partner Violence: Not At Risk (02/14/2024) Humiliation, Afraid, Rape, and Kick questionnaire Fear of Current or Ex-Partner: No Emotionally Abused: No Physically Abused: No Sexually Abused: No Housing Stability: Low Risk (02/14/2024) Housing Stability Vital Sign Unable to Pay for Housing in the Last Year: No Number of Times Moved in the Last Year: 0 Homeless in the Last Year: No FAMILY HISTORY Family History Problem Relation Name Age of Onset Hypertension Mother Hypertension Father PHYSICAL EXAMINATION Vital 24 Hour Range Most Recent Value Temperature Temp Min: 96.8 ??F (36 ??C) Max: 97.5 ??F (36.4 ??C) 97.5 ??F (36.4 ??C) Pulse Pulse Min: 96 Max: 102 98 Respiratory Resp Min: 18 Max: 24 24 Blood Pressure BP Min: 149/86 Max: 204/128 (!) 169/97 Pulse Oximetry SpO2 Min: 97 % Max: 100 % 97 % O2 O2 Flow Rate (L/min) Av.7 L/min Min: 2 L/min Min taken time: 02/14/24 0859 Max: 15 L/min Max taken time: 02/14/24 0759 Vital Most Recent Value First Value Weight 64.4 kg (142 lb) Weight: 64.4 kg (142 lb) Height 170.2 cm (5' 7 ) Height: 170.2 cm (5' 7 ) BMI 22.24 N/A Physical Exam: -GENERAL: No acute distress, Well nourished, Well developed -HEAD: Normocephalic, Atraumatic -EYES: Extraocular movements intact -ENT: Neck supple, Mucous membranes moist -LUNGS: Breathing comfortably on RA, Effort normal, Diminished BS, Faint expiratory wheezing, No crackles, No rhonchi -CV: Regular rate and rhythm, S1 and S2 normal -ABDOMEN: Soft, Non tender, Non distended -EXT: No lower extremity edema -NEURO: Awake, alert, oriented -SKIN: No significant rashes or lesions LABS Recent Results (from the past 24 hour(s)) CBC W/DIFF AUTOMATED Collection Time: 02/13/24 11:13 PM Result Value Ref Range WBC 4.54 4.5 - 11.0 x10'3/uL RBC 3.56 (L) 4.70 - 6.10 x10'6/uL HGB 11.2 (L) 14.0 - 18.0 G/DL HCT 34.8 (L) 43.0 - 54.0 % MCV 97.8 (H) 80.0 - 94.0 FL MCH 31.5 (H) 27.0 - 31.0 PG MCHC 32.2 32.0 - 36.0 G/DL RDW 14.6 (H) 11.5 - 14.5 % PLT 288 130 - 400 x10'3/uL MPV 8.2 (L) 9.3 - 12.2 FL DIFFERENTIAL TYPE AUTOMATED DIFFERENTIAL NEUTROPHILS % 78.4 % LYMPHOCYTES % 15.9 % MONOCYTES % 5.3 % EOSINOPHILS 0.0 % BASOPHILS 0.0 % IMMATURE GRANS % 0.4 % ABS. NEUTROPHILS 3.56 1.80 - 7.70 x10'3/uL ABS. LYMPHOCYTES 0.72 (L) 1.00 - 4.80 x10'3/uL ABS. MONOCYTES 0.24 (L) 0.30 - 0.82 x10'3/uL ABS. EOSINOPHILS 0.00 (L) 0.04 - 0.54 x10'3/uL ABS. BASOPHILS 0.00 (L) 0.01 - 0.08 x10'3/uL ABS. IMMATURE GRANULOCYTES 0.02 0.00 - 0.49 x10'3/uL D-DIMER, QUANTITATIVE Collection Time: 02/13/24 11:13 PM Result Value Ref Range D-DIMER 709 (HH) 0 - 500 ng[FEU]/mL BASIC METABOLIC PANEL Collection Time: 02/13/24 11:13 PM Result Value Ref Range GLUCOSE 145 (H) 70 - 99 MG/DL BUN 16 7 - 18 MG/DL CREATININE S/P/B 1.16 0.7 - 1.3 MG/DL SODIUM S/P/B 140 136 - 145 MMOL/L POTASSIUM S/P/B 3.4 (L) 3.5 - 5.1 MMOL/L CHLORIDE S/P/B 110 97 - 115 MMOL/L CO2 24.2 21 - 32 MMOL/L CALCIUM S/P/B 8.3 (L) 8.5 - 10.1 MG/DL ANION GAP 5.8 2 - 10 MMOL/L BUN CREATININE RATIO 13.8 6 - 26 GFR ESTIMATE 73 (L) >90 ML/MIN/1.73 M2 TROPONIN, QUANT Collection Time: 02/13/24 11:13 PM Result Value Ref Range TROPONIN I HIGH SENSITIVITY 7 <79 ng/L PRO-BRAIN NATRIURETIC PEPTIDE Collection Time: 02/13/24 11:13 PM Result Value Ref Range PRO-B TYPE NATRIURETIC PEPTIDE 151 (H) <125 PG/ML CORONAVIRUS (COVID 19) Collection Time: 02/13/24 11:17 PM Specimen: NASAL Result Value Ref Range CORONAVIRUS SARS COV 2 RNA NEGATIVE NEGATIVE Specimen Type NASAL ARTERIAL BLOOD GAS Collection Time: 02/14/24 8:27 AM Result Value Ref Range PH ARTERIAL 7.42 7.35 - 7.45 PCO2 35.0 35.0 - 45.0 MMHG PO2 66.0 (L) 83.0 - 108.0 MMHG TOTAL CO2 ARTERIAL 23.8 19.0 - 24.0 MMOL/L BASE DEFICIT 1.3 0.0 - 3.0 MMOL/L O2 SATURATION 93 (L) 94.0 - 98.0 % BICARB ARTERIAL 22.7 21.0 - 28.0 MMOL/L LORENA TEST LORENA TEST PERFORMED O2 ADMIN ARTERIAL 21% DRAW SITE ARTERIAL LT RADIAL MAGNESIUM Collection Time: 02/14/24 9:16 AM Result Value Ref Range MAGNESIUM 1.8 1.8 - 2.4 MG/DL THYROID STIM HORMONE, TSH Collection Time: 02/14/24 9:16 AM Result Value Ref Range TSH 0.439 0.358 - 3.74 uIU/ML TROPONIN, QUANT Collection Time: 02/14/24 9:16 AM Result Value Ref Range TROPONIN I HIGH SENSITIVITY 24 <79 ng/L LIPID PANEL Collection Time: 02/14/24 9:16 AM Result Value Ref Range CHOLESTEROL 98 <200 MG/DL TRIGLYCERIDES 78 <150 MG/DL HDL 64 >40.0 MG/DL LDL (CALCULATED) 18 <100 MG/DL NON HDL CHOLESTEROL 34 <130 MG/DL CHOL/HDL RATIO 1.5 0.0 - 4.5 VLDL CALCULATION 16 5 - 55 MG/DL LIPID INTERPRETATION BASIC METABOLIC PANEL Collection Time: 02/14/24 9:16 AM Result Value Ref Range GLUCOSE 135 (H) 70 - 99 MG/DL BUN 14 7 - 18 MG/DL CREATININE S/P/B 1.22 0.7 - 1.3 MG/DL SODIUM S/P/B 140 136 - 145 MMOL/L POTASSIUM S/P/B 3.8 3.5 - 5.1 MMOL/L CHLORIDE S/P/B 110 97 - 115 MMOL/L CO2 20.3 (L) 21 - 32 MMOL/L CALCIUM S/P/B 8.8 8.5 - 10.1 MG/DL ANION GAP 9.7 2 - 10 MMOL/L BUN CREATININE RATIO 11.5 6 - 26 GFR ESTIMATE 69 (L) >90 ML/MIN/1.73 M2 CBC W/DIFF AUTOMATED Collection Time: 02/14/24 9:16 AM Result Value Ref Range WBC 8.72 4.5 - 11.0 x10'3/uL RBC 3.46 (L) 4.70 - 6.10 x10'6/uL HGB 10.9 (L) 14.0 - 18.0 G/DL HCT 33.3 (L) 43.0 - 54.0 % MCV 96.2 (H) 80.0 - 94.0 FL MCH 31.5 (H) 27.0 - 31.0 PG MCHC 32.7 32.0 - 36.0 G/DL RDW 14.9 (H) 11.5 - 14.5 % PLT 289 130 - 400 x10'3/uL MPV 8.2 (L) 9.3 - 12.2 FL DIFFERENTIAL TYPE AUTOMATED DIFFERENTIAL NEUTROPHILS % 86.5 % LYMPHOCYTES % 9.6 % MONOCYTES % 3.4 % EOSINOPHILS 0.0 % BASOPHILS 0.0 % IMMATURE GRANS % 0.5 % ABS. NEUTROPHILS 7.54 1.80 - 7.70 x10'3/uL ABS. LYMPHOCYTES 0.84 (L) 1.00 - 4.80 x10'3/uL ABS. MONOCYTES 0.30 0.30 - 0.82 x10'3/uL ABS. EOSINOPHILS 0.00 (L) 0.04 - 0.54 x10'3/uL ABS. BASOPHILS 0.00 (L) 0.01 - 0.08 x10'3/uL ABS. IMMATURE GRANULOCYTES 0.04 0.00 - 0.49 x10'3/uL IMAGING & OTHER STUDIES CTA CHEST PE PROTOCOL Result Date: 02/14/2024 IMPRESSION: 1. No pulmonary thromboembolic disease. 2. Moderate bronchial wall thickening with tiny sjih-ic-mxsrmnhbmdak within the right lung apices that may be seen in the setting of bronchitis and/or pneumonia. 3. Moderate to marked pulmonary emphysema. XR CHEST PORTABLE Result Date: 02/13/2024 IMPRESSION: No radiographic evidence of an acute cardiopulmonary abnormality. Results for orders placed or performed during the hospital encounter of 02/13/24 ECG [address] [facility] Test Date: 2024-02-13 Pat Name: JEANIE CHICAS Department: 41 Room: Gender: Male Telehealth Nurse: : 1965 Requested By: JUNE PASCAL Order Number: [id number] Reading MD: Measurements Intervals [place] Rate: 78 P: 80 RI: 120 QRS: 70 QRSD: 92 T: 54 QT: 413 QTc: 473 Interpretive Statements SINUS RHYTHM No previous ECG available for comparison ASSESSMENT & PLAN Acute respiratory failure with hypoxemia Presented with dyspnea with minimal exertion Suspect 2/2 COPD, ? PNA, ? cardiac etiology No history of home O2 use ABG 7.42/35/66/27 CTA chest showed moderate bronchial wall thickening with tiny tree-in-bud opacities within right lung apices, no PE Echo ordered Treatment as below Titrate supplemental O2 to maintain saturations > 89% IS and Acapella Consider 6MWT prior to d/c COPD exacerbation Presented with expiratory wheezing CTA chest concerning for bronchitis and/or PNA Received IV methylprednisolone x 1 in the ED Transitioned to prednisone (D#1/5) Continue IV ceftriaxone and azithromycin as below Continue home inhalers/alternatives Scheduled and PRN albuterol Consider pulmonology consultation Right-sided PNA vs bronchitis COVID negative Influenza A/B ordered PCT ordered CTA chest concerning for bronchitis and/or PNA Sputum cultures ordered Continue IV ceftriaxone and azithromycin, monitor for toxicity IS and Acapella CAD S/p CABG in 2020 Reports dyspnea on exertion, but no active chest pain Has not seen python developer since 2020 after CABG BNP 151 Troponin x 2 negative EKG as noted above Echo ordered Hold carvedilol given cocaine use Continue Plavix and statin (per PDMP, awaiting pharmacy med rec) Consider cardiology consultation pending echo results Hypertension BP elevated Hold carvedilol given cocaine use Continue amlodipine and losartan (per PDMP, awaiting pharmacy med rec) Monitor and adjust as clinically warranted Hyperlipidemia Continue statin Hypokalemia Mg WNL Replace and monitor Elevated D-dimer D-dimer 709 CTA chest showed no PE Chronic anemia Hgb ~11 No recent to compare, but last 04-06 in 2018 No obvious signs of bleeding Receives outpatient B12 injections Continue folate and thiamine (given history of alcohol use disorder) Monitor H&H and transfuse for Hgb < 7 Crohn's disease States he has not been able to get refill of Humira x 2 months Follow-up with primary GI, Dr. 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 EtOH ordered CIWA protocol MVI, thiamine, folate, electrolyte repletion Seizure precautions Encourage safe alcohol cessation CM consulted to provide resources Cocaine use disorder Reports smoking crack cocaine for over 20 years; last used ~2 days DENTAL BILLING SPECIALIST UDS ordered Hold carvedilol Encouraged cessation CM consulted to provide resources Nicotine dependence Has cut down to 4-5 cigarettes/daily Encouraged smoking cessation Declined nicotine patch Disposition: Observation - Pending clinical improvement and work-up above VTE Prophylaxis: SQ heparin Code Status: Full code Patient's case discussed with the attending. Plan of care discussed with the patient and RN. RHETT ZEPEDA Cosigned by Talia Watson MD at 02/15/2024 5:51 AM CDT Associated attestation - Talia Watson MD - 02/15/2024 5:51 AM CDT I, Talia Watson MD, participated in the care of this patient today and discussed the plan of care with СВЕТЛАНА Tsai, who shared in this visit. I have reviewed the СВЕТЛАНА's documentation and agree with the findings except as I have documented. I personally spent 45 minutes, caring for this patient. Talia Watson MD documented in this encounter Consult Notes * Ricarda Jhaveri MD - 02/16/2024 11:47 AM CDTAssociated Order(s): IP CONSULT TO PULMONOLOGY Pulmonary Consultation Note History Chief Complaint Patient presents with Shortness Of Breath HPI Jeanie Chicas is a 58-year-old male with a PMHx of CAD s/p CABG (2020), HTN, HLD, COPD, Crohn's disease, tobacco use disorder, alcohol use disorder, cocaine use disorder who presents to [facility] on02/13/24 with above CC. Pt presented to ED for evaluation of ongoing SOB, worsening over the last couple days. Patient states he is unable to walk ~1.5 blocks to work without having to stop and rest which is unusual for him. He does endorse cough with clear sputum production. ED workup shows no leukocytosis, D-dimer 709, BNP 151. CTA chest negative for PE, shows moderate bronchial wall thickening with tree-in-bud opacities in right lung apices as well as moderate to marked pulmonary emphysema. Patient being treated for CAP/COPD exacerbation. 02/16/2024: Pulmonary consulted for further recommendations. Upon interview, patient resting comfortably in bed on 2 L nasal cannula. Patient states he has had a cough since May of this year however it has progressively worsened. He notes clear-colored sputum. Patient states he has had issues with shortness of breath however it acutely worsened 3-4 days ago while walking to work. Patient does note his chest is sore from coughing. He also states he hears himself wheezing. He denies orthopnea,nasal congestion or drainage. Patient does not use his CPAP, uses Spiriva and albuterol inhalers athome. Patient notes he uses albuterol 3-4 times a day. Patient states he has previously had PFTs done at [facility] and follows with Dr. Stokes who treats his COPD/asthma. Patient also notes current tobacco abuse, alcohol abuse (drinking up to half a pint of vodka daily), and current crack cocaine and marijuana use which he uses 4 days a week. Other Pulm Relevant Hx: Fam hx: no known fam hx of lung disease. Tob: 46 years, previously smoked 1.5-2 pack/day. 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 Imaging reviewed: CXR CT 02/14/2024 1. No pulmonary thromboembolic disease. 2. Moderate bronchial wall thickening with tiny tree-in-bud opacities within the right lung apices that may be seen in the setting of bronchitis and/or pneumonia. 3. Moderate to marked pulmonary emphysema. Testing/Data reviewed: Labs: 02/14/2024: UDS cocaine+, pct wnl 02/16/2024: RVP parainfluenza 4+ Echo: 02/14/2024 The left ventricular systolic function is hyperdynamic. Estimated left ventricular ejection fraction is >80%. Left ventricular diastolic function is normal. Wall motion appears normal in all segments. Unable to reliably quantitate pulmonary systolic pressure. Inferior vena cava shows >50% collapse with respiration consistent with normal right atrial pressure. No significant valve disease. PFT: PFT 03/05/21 FEV1 1.29 L (48%), (+) BD response Sleep Studies: None on file Past Medical History: Diagnosis Date Anemia Bronchitis Crohn disease ([facility]) Hypertension Past Surgical History: Procedure Laterality Date APPENDECTOMY HC COLON RESECTION Social History Tobacco Use Smoking status: Every Day Current packs/day: 0.25 Types: Cigarettes Smokeless tobacco: Never Substance Use Topics Alcohol use: No Drug use: Yes Types: Cocaine Family History Problem Relation Name Age of Onset Hypertension Mother Hypertension Father Allergies Allergen Reactions Dilaudid [Hydromorphone] Itching Makes me itch every where albuterol 2.5 mg Nebulization Q6H amLODIPine 5 mg Oral Daily atorvastatin 40 mg Oral Nightly at bedtime cefTRIAXone 1 g Intravenous Q24H clopidogrel 75 mg Oral Daily fluticasone-salmeterol 2 puff Inhalation 2 times daily folic acid 1 mg Oral Daily Or folic acid 1 mg Intravenous Daily guaiFENesin ER 600 mg Oral BID heparin (porcine) 5,000 Units Subcutaneous 2 times per day losartan 50 mg Oral Daily multi vitamin/minerals 1 tablet Oral Daily predniSONE 40 mg Oral Daily thiamine 100 mg Oral Daily Or thiamine 100 mg Intravenous Daily tiotropium 2 puff Inhalation Daily acetaminophen, albuterol sulfate HFA, LORazepam OR LORazepam, tobzhtijv-xkzlyjgj-wrxijfiqfce, melatonin, ondansetron, polyethylene glycol Review of Systems Constitutional: Negative for chills, fever, malaise/fatigue and weight loss. HENT: Negative for congestion, ear discharge, ear pain, sinus pain and sore throat. Eyes: Negative for blurred vision, double vision, discharge and redness. Respiratory: Positive for cough, sputum production, shortness of breath and wheezing. Negative for hemoptysis. Cardiovascular: Negative for chest pain, palpitations, orthopnea and leg swelling. Gastrointestinal: Positive for heartburn. Negative for abdominal pain, blood in stool, constipation, diarrhea, nausea and vomiting. Genitourinary: Negative for dysuria, frequency and urgency. Musculoskeletal: Negative for back pain, joint pain and myalgias. Skin: Negative for itching and rash. Neurological: Negative for dizziness, tingling, weakness and headaches. Endo/Heme/Allergies: Negative for environmental allergies. Psychiatric/Behavioral: Negative for depression. The patient is not nervous/anxious and does not have insomnia. Physical Exam Filed Vitals: 02/16/24 0335 02/16/24 0740 02/16/24 0810 02/16/24 1118 BP: (!) 148/99 (!) 176/112 (!) 177/104 Pulse: 100 92 94 Resp: 18 19 20 Temp: 98.2 ??F (36.8 ??C) 97.9 ??F (36.6 ??C) 98.1 ??F (36.7 ??C) TempSrc: Oral Oral Oral SpO2: 100% 98% 98% 100% Weight: 67.4 kg (148 lb 9.4 oz) Height: GEN: Pleasant, in NAD NEURO: Alert, appropriate PSYCH: Affect is normal HEAD: NC, AT EENT: No sinus tenderness to palpation, mallampati 2. NECK: Supple, trachea midline LN: No appreciable cervical lymphadenopathy to palpation PULM: non-labored, left upper and lower expiratory wheezes, no crackles HEART: normal s1,s2, rrr, no murmur GI: non-distended, bs+ MSK: Right wrist ROM WNL EXTR: No clubbing, no edema Skin: No visible rashes, no visible tattoos Assessment # Acute hypoxic respiratory failure Ddx: Severe COPD exacerbation with possible asthma overlap vs recurrent bronchitis vs viral etiology vs CAP # Possible community-acquired pneumonia # Severe COPD --In acute exacerbation --FEV1 48% # Tobacco Abuse # Alcohol abuse # Illicit drug use Plan --Supplemental oxygen to maintain saturations >88% --Currently on 2 L, wean as tolerated --Previous room air baseline --Encourage incentive spirometer and Acapella use --Sputum culture with final normal jose eduardo -- Respiratory viral panel positive for parainfluenza 4 PCR -- Continue azithromycin day 2/3 -- Continue ceftriaxone day 2/5 --Continue prednisone 40 mg, day 2/5 -- Supportive treatment for parainfluenza --Continue Advair, Spiriva, albuterol --Patient states he uses Symbicort and Spiriva at home, and continue on discharge. -- Continue Mucinex --Patient to follow-up with his outpatient mailroom personnel, Dr. Stokes. Thank you for this consult. Will continue to follow Trudi Nam (Reavis), JANICE, SPONGE BUFFER-[facility] Pulmonary Medicine General: aam, pleasant, lying in bed in NAD Neuro: Alert, appropriate Psych: Affect normal Head: NC, AT EENT: No Sinus tenderness to palpation, mallampati 2 Neck: Supple Lymph: No appreciable cervical lymphadenopathy Respiratory: non-labored, bilateral rhonchi/wheezing Cardiovascular: s1,s2, rrr, no audible murmur GI: non-distended, bs+ Musc: right wrist ROM wnl Ext: no edema, no clubbing Skin: No visible rashes, No visible tattoos Seen and examined independently; assessment/plan discussed at length, agree with documentation as noted. RICARDA JHAVERI MD documented in this encounter ED Notes * Ugo Billings MD,PHD - 02/13/2024 11:15 PM CDT EMERGENCY DEPARTMENT ENCOUNTER Chief Complaint Chief Complaint Patient presents with Shortness Of Breath History of Present Illness 58-year-old male presenting to the emergency department with a chief complaint of shortness of breath. He states his symptoms feel identical to past COPD. He has had increased cough with more difficult to produce sputum though it is the same color as it normally is. He was seen at an outside hospital yesterday for similar symptoms. He was prescribed steroids and given 2 breathing treatments. He has used his home inhalers as well, though cannot name what they are. He was not prescribed antibiotics. Physical Exam Filed Vitals: 02/13/24 2230 BP: (!) 204/128 Pulse: (!) 102 Resp: 18 Temp: 96.8 ??F (36 ??C) TempSrc: Temporal SpO2: 100% Weight: 64.4 kg (142 lb) Height: 1.702 m (5' 7 ) CONSTITUTIONAL: Patient is awake, alert CARDIOVASCULAR: Borderline tachycardia RESPIRATORY: No respiratory distress or tachypnea, no wheezing or crackles at rest ABDOMEN: Soft, nontender, nondistended, NEUROLOGIC: GCS 15, CN2-12 grossly intact, moves all extremities EXTREMITIES: Warm, no edema Diagnostic Studies / Procedures ELECTROCARDIOGRAMS: EKG, TIME 2345 Rate 78, normal sinus rhythm, no ectopy, normal intervals, normal axis, no ST elevations Interpretation by me: no acute ischemic changes Rhythm strip interpreted by me: Rate 78, normal sinus rhythm, no ectopy LABORATORY STUDIES: Results for orders placed or performed during the hospital encounter of 02/13/24 CBC W/DIFF AUTOMATED Result Value Ref Range WBC 4.54 4.5 - 11.0 x10'3/uL RBC 3.56 (L) 4.70 - 6.10 x10'6/uL HGB 11.2 (L) 14.0 - 18.0 G/DL HCT 34.8 (L) 43.0 - 54.0 % MCV 97.8 (H) 80.0 - 94.0 FL MCH 31.5 (H) 27.0 - 31.0 PG MCHC 32.2 32.0 - 36.0 G/DL RDW 14.6 (H) 11.5 - 14.5 % PLT 288 130 - 400 x10'3/uL MPV 8.2 (L) 9.3 - 12.2 FL DIFFERENTIAL TYPE AUTOMATED DIFFERENTIAL NEUTROPHILS % 78.4 % LYMPHOCYTES % 15.9 % MONOCYTES % 5.3 % EOSINOPHILS 0.0 % BASOPHILS 0.0 % IMMATURE GRANS % 0.4 % ABS. NEUTROPHILS 3.56 1.80 - 7.70 x10'3/uL ABS. LYMPHOCYTES 0.72 (L) 1.00 - 4.80 x10'3/uL ABS. MONOCYTES 0.24 (L) 0.30 - 0.82 x10'3/uL ABS. EOSINOPHILS 0.00 (L) 0.04 - 0.54 x10'3/uL ABS. BASOPHILS 0.00 (L) 0.01 - 0.08 x10'3/uL ABS. IMMATURE GRANULOCYTES 0.02 0.00 - 0.49 x10'3/uL D-DIMER, QUANTITATIVE Result Value Ref Range D-DIMER 709 (HH) 0 - 500 ng[FEU]/mL BASIC METABOLIC PANEL Result Value Ref Range GLUCOSE 145 (H) 70 - 99 MG/DL BUN 16 7 - 18 MG/DL CREATININE S/P/B 1.16 0.7 - 1.3 MG/DL SODIUM S/P/B 140 136 - 145 MMOL/L POTASSIUM S/P/B 3.4 (L) 3.5 - 5.1 MMOL/L CHLORIDE S/P/B 110 97 - 115 MMOL/L CO2 24.2 21 - 32 MMOL/L CALCIUM S/P/B 8.3 (L) 8.5 - 10.1 MG/DL ANION GAP 5.8 2 - 10 MMOL/L BUN CREATININE RATIO 13.8 6 - 26 GFR ESTIMATE 73 (L) >90 ML/MIN/1.73 M2 TROPONIN, QUANT Result Value Ref Range TROPONIN I HIGH SENSITIVITY 7 <79 ng/L PRO-BRAIN NATRIURETIC PEPTIDE Result Value Ref Range PRO-B TYPE NATRIURETIC PEPTIDE 151 (H) <125 PG/ML MAGNESIUM Result Value Ref Range MAGNESIUM 1.8 1.8 - 2.4 MG/DL IMAGING STUDIES CTA CHEST PE PROTOCOL Final Result by User, [id number] (02/13 202) [facility] [address], [place] [address] EXAMINATION: CTA CHEST PE PROTOCOL, 02/14/2024 1:54 AM TECHNIQUE: Computed tomographic images of the chest were obtained after the administration of 80 mL of Isovue 370 injected through the IV, without evidence of adverse reaction. Additional coronal and sagittal reformatted as well as maximum intensity projection images were generated. A dose lowering technique was used for this procedure, which may include, but is not limited to, dose reduction technique, automated exposure control, the use of iterative reconstruction, and ALARA (As Low As Reasonably Achievable) / Image Gently techniques. HISTORY: 58-year-old male presenting to the emergency department with a chief complaint of dyspnea. He states his symptoms feel identical to past COPD. He has had increased cough with more difficult to produce sputum though it is the same color as it normally is. He was seen at an outside hospital yesterday for similar symptoms. He was prescribed steroids and given 2 breathing treatments. He has used his home inhalers as well, though cannot name what they are. He was not prescribed antibiotics. COMPARISON: Chest radiograph 02/13/2024 FINDINGS: The pulmonary arteries are well-opacified there is no pulmonary thromboembolic disease. There is no focal pulmonary consolidation. Moderate bronchial wall thickening. Tiny tree-in-bud opacities within the right lung apices. No pleural effusion. No pneumothorax. Calcified granuloma within right lower lobe. Calcified lymph nodes in the right hilum. Moderate to marked pulmonary emphysema. Heart size is normal. No pericardial abnormality. The caliber of the thoracic aorta is normal. Retained epicardial pacing wires. Findings related to prior CABG. No acute fracture nor destructive process of the visualized osseous structures. Small to medium bilateral gynecomastia. IMPRESSION: 1. No pulmonary thromboembolic disease. 2. Moderate bronchial wall thickening with tiny tree-in-bud opacities within the right lung apices that may be seen in the setting of bronchitis and/or pneumonia. 3. Moderate to marked pulmonary emphysema. Referred By: Interpreted By: Uday Mello MD, 02/14/2024 1:54 AM XR CHEST PORTABLE Final Result by User, [id number] (02/12 2310) [facility] [address] [facility], [place] [address] EXAMINATION: XR CHEST PORTABLE, 02/13/2024 11:08 PM TECHNIQUE: Upright AP radiograph of the chest HISTORY: Dyspnea COMPARISON: Chest radiograph 04/12/2019 FINDINGS: Cerclage wires and fixation plates approximated median sternotomy. Potentially retained epicardial pacing wires. Surgical clips indicate history of coronary artery bypass grafting. Heart size is normal. Pulmonary vascular pattern appears within normal limits. Calcified granuloma within the right mid lung and calcified lymph nodes in right hilum. No pleural effusion. No pneumothorax. IMPRESSION: No radiographic evidence of an acute cardiopulmonary abnormality. Referred By: Interpreted By: Uday Mello MD, 02/13/2024 11:08 PM ED Course / Medical Decision Making Patient presenting with a chief complaint of shortness of breath I reviewed the patient's labs, which are significant for mild hypokalemia on BMP. A BNP is borderline elevated at 151. High-sensitivity troponin is not elevated. A CBC is notable for mild macrocytic anemia. A D-dimer, ordered to evaluate for pulmonary embolism is nonspecifically elevated. I reviewed the radiologist's interpretation of the patient's chest x-ray and CTA of the chest, which are unremarkable. The radiologist comments on moderate bronchial wall thickening and tiny tree-in-bud opacities, on my review these are very minimal though I will treat with azithromycin. I independently reviewed the patient's EKG, my interpretation is above. I additionally interpreted the patient's rhythm strip, as above I interpreted the patient's pulse oximeter at rest, which is 100% on room air, which is normal and determined that this patient is not hypoxic I interpreted the patient's cardiac catheterization technologist as showing a sinus rhythm and hemodynamic stability Medication management: Solu-Medrol, DuoNeb, albuterol, and azithromycin are administered for treatment of suspected COPD However, the patient feels minimally improved following these treatments. Attempting to ambulate the patient during his emergency department course does not result in hypoxia though significant respiratory distress he is induced, even with short distances. He becomes tachypneic, tachycardic, and uses multiple accessory muscles to breathe with minimal exertion. I have thus discussed the patient with the hospitalist, deciding to and requesting admission for further evaluation of potential cardiac etiologies of the patient's shortness of breath. Clinical impression: Dyspnea on exertion Disposition: Admission to hospitalist for further evaluation and treatment Ugo Billings MD,PHD 02/16/24 0243 * Nadege Arnett RN - 02/13/2024 10:29 PM CDT Ambulatory to triage complaining of shortness of breath. Was seen at an ER for same last night. documented in this encounter Plan of Treatment Not on file documented as of this encounter Goals Goal Patient Goal Type Associated Problems Recent Progress Patient-Stated? Author Patient will return to prior living situation and remain independent in ADLs upon discharge from hospital Lifestyle Melvina Randle RN documented as of this encounter Procedures Procedure Name Priority Date/Time Associated Diagnosis Comments HOME O2 EVAL Routine 02/19/2024 8:39 AM CDT BASIC METABOLIC PANEL Routine 02/19/2024 7:30 AM CDT CBC W/DIFF AUTOMATED Routine 02/19/2024 7:30 AM CDT COMPREHENSIVE METABOLIC PANEL Routine 02/16/2024 9:32 AM CDT CBC W/DIFF AUTOMATED Routine 02/16/2024 9:32 AM CDT RESPIRATORY PCR PANEL 2 Routine 02/16/20 9:05 AM CDT PROCALCITONIN (PCT) Routine 02/15/2024 7 :12 AM CDT PROTHROMBIN TIME, VENOUS Routine 02/15/2024 7:12 AM CDT BASIC METABOLIC PANEL Routine 02/15/2024 7:12 AM CDT HEPATIC FUNCTION PANEL Routine 7:12 AM CDT CBC W/DIFF AUTOMATED Routine 02/15/2024 7:12 AM CDT CULTURE RESPIRATORY W/ GRAM STAIN Routine 02/14/2024 5:50 PM CDT USE ECHOCARDIOGRAM W CON Today 02/14/2024 3:49 PM CDT DRUG SCREEN RAPID Routine 02/14/2024 2:2 3 PM CDT INFLUENZA A & B Routine 02/14/2024 12:00 PM CDT TROPONIN, QUANT STAT 02/14/2024 11:58 AM CDT PROCALCITONIN (PCT) STAT 02/14/2024 9 :16 AM CDT HEMOGLOBIN, GLYCOSYLATED Routine 02/14/2024 9:16 AM CDT BASIC METABOLIC PANEL STAT 02/14/2024 9:16 AM CDT LIPID PANEL STAT 02/14/2024 9:16 AM CDT CBC W/DIFF AUTOMATED STAT 02/14/2024 9:16 AM CDT TROPONIN, QUANT STAT 02/14/2024 9:16 AM CDT THYROID STIM HORMONE TSH STAT 02/14/2024 9:16 AM CDT MAGNESIUM STAT 02/14/2024 9:16 AM CDT ETHANOL Routine 02/14/2024 9:15 AM CDT BLOOD GAS, ARTERIAL LAB STAT 02/14/20 8:27 AM CDT CTA CHEST PE PROTOCOL STAT 02/14/2024 1:49 AM CDT ECG 12-LEAD Routine 02/13/2024 11:45 PM CDT CORONAVIRUS (COVID 19) STAT 11:17 PM CDT PRO-BRAIN NATRIURETIC PEPTIDE Routine 02/13/2024 11:13 PM CDT BASIC METABOLIC PANEL STAT 02/13/2024 11:13 PM CDT D-DIMER, QUANTITATIVE STAT 02/13/2024 11:13 PM CDT CBC W/DIFF AUTOMATED STAT 02/13/2024 11:13 PM CDT TROPONIN, QUANT STAT 02/13/2024 11:13 PM CDT XR CHEST PORTABLE STAT 02/13/2024 10: 57 PM CDT documented in this encounter Results * (ABNORMAL) CBC W/DIFF AUTOMATED (02/19/2024 7:30 AM CDT) WBC 7.95 4.5 - 11.0 x10'3/uL 02/19/2024 8:30 AM CDT [facility] RBC 3.78(L) 4.70 - 6.10 x10'6/uL 02/19/2024 8:30 AM CDT [facility] HGB 11.9(L) 14.0 - 18.0 G/DL 02/19/2024 8:30 AM CDT [facility] HCT 37.7(L) 43.0 - 54.0 % 02/19/2024 8:30 AM CDT [facility] MCV 99.7(H) 80.0 - 94.0 FL 02/19/2024 8:30 AM CDT [facility] MCH 31.5(H) 27.0 - 31.0 PG 02/19/2024 8:30 AM CDT [facility] MCHC 31.6(L) 32.0 - 36.0 G/DL 02/19/2024 8:30 AM CDT [facility] RDW 15.7(H) 11.5 - 14.5 % 02/19/2024 8:30 AM CDT [facility] PLT 334 130 - 400 x10'3/uL 02/19/2024 8:30 AM CDT [facility] MPV 8.4(L) 9.3 - 12.2 FL 02/19/2024 8:30 AM CDT [facility] DIFFERENTIAL TYPE AUTOMATED DIFFERENTIAL 02/19/2024 8:30 AM CDT [facility] NEUTROPHILS % 64.3 % 02/19/2024 8:30 AM CDT [facility] LYMPHOCYTES % 25.5 % 02/19/2024 8:30 AM CDT [facility] MONOCYTES % 9.7 % 02/19/2024 8:30 AM CDT [facility] EOSINOPHILS 0.1 % 02/19/2024 8:30 AM CDT [facility] BASOPHILS 0.1 % 02/19/2024 8:30 AM CDT [facility] IMMATURE GRANS % 0.3 % 02/19/20 8:30 AM CDT [facility] ABS. NEUTROPHILS 5.11 1.80 - 7.70 x10'3/uL 02/19/2024 8:30 AM CDT [facility] ABS. LYMPHOCYTES 2.03 1.00 - 4.80 x10'3/uL 02/19/2024 8:30 AM CDT [facility] ABS. MONOCYTES 0.77 0.30 - 0.82 x10'3/uL 02/19/2024 8:30 AM CDT [facility] ABS. EOSINOPHILS 0.01(L) 0.04 - 0.54 x10'3/uL 02/19/2024 8:30 AM CDT [facility] ABS. BASOPHILS 0.01 0.01 - 0.08 x10'3/uL 02/19/2024 8:30 AM CDT [facility] ABS. IMMATURE GRANULOCYTES 0.02 0.00 - 0.49 x10'3/uL 02/19/2024 8:30 AM CDT [facility] 02/19/2024 7:30 AM CDT us Mercy Torres MD LABORATORY Final Result [facility] [address] [id number], * (ABNORMAL) BASIC METABOLIC PANEL (02/19/2024 7:30 AM CDT) GLUCOSE 93 70 - 99 MG/DL 02/19/2024 8:43 AM CDT [facility] BUN 23(H) 7 - 18 MG/DL 02/19/2024 8:43 AM CDT [facility] CREATININE S/P/B 1.02 0.7 - 1.3 MG/DL 02/19/2024 8:43 AM CDT [facility] SODIUM S/P/B 138 136 - 145 MMOL/L 02/19/2024 8:43 AM CDT [facility] POTASSIUM S/P/B 3.2(L) 3.5 - 5.1 MMOL/L 02/19/2024 8:43 AM CDT [facility] CHLORIDE S/P/B 109 97 - 115 MMOL/L 02/19/2024 8:43 AM CDT [facility] CO2 21.4 21 - 32 MMOL/L 02/19/2024 8:43 AM CDT [facility] CALCIUM S/P/B 8.6 8.5 - 10.1 MG/DL 02/19/2024 8:43 AM CDT [facility] ANION GAP 7.6 2 - 10 MMOL/L 02/19/2024 8:43 AM CDT [facility] BUN CREATININE RATIO 22.5 6 - 26 02/19/2024 8:43 AM CDT [facility] GFR ESTIMATE 85(L) >90 ML/MIN/1.7 3 M2 02/19/2024 8:43 AM CDT [facility] Comment: NOTE: eGFR is not calculated for patients <18 years of age or gender unknown. This is an estimated GFR calculation using the new CKD EPI creatinine equation without race and so does not require a correction factor for race. This estimated GFR should not be used for calculating drug doses. 02/19/2024 7:30 AM CDT us Mercy Torres MD LABORATORY Final Result [facility] [address] [place] [address], [place] [phone] * (ABNORMAL) COMPREHENSIVE METABOLIC PANEL (02/16/2024 9:32 AM CDT) [facility] GLUCOSE 159(H) 70 - 99 MG/DL 02/16/2024 1:59 PM CDT [facility] BUN 13 7 - 18 MG/DL 02/16/2024 1:59 PM CDT [facility] CREATININE S/P/B 1.03 0.7 - 1.3 MG/DL 02/16/2024 1:59 PM CDT [facility] SODIUM S/P/B 138 136 - 145 MMOL/L 02/16/2024 1:59 PM CDT [facility] POTASSIUM S/P/B 3.2(L) 3.5 - 5.1 MMOL/L 02/16/2024 1:59 PM CDT [facility] CHLORIDE S/P/B 109 97 - 115 MMOL/L 02/16/2024 1:59 PM CDT [facility] CO2 21.3 21 - 32 MMOL/L 02/16/2024 1:59 PM CDT [facility] CALCIUM S/P/B 8.4(L) 8.5 - 10.1 MG/DL 02/16/2024 1:59 PM CDT [facility] BILIRUBIN TOTAL S/P/B 0.6 0.2 - 1.2 MG/DL 02/16/2024 1:59 PM T [facility] Comment: THIS ASSAY IS NOT RECOMMENDED FOR PATIENTS UNDERGOING TREATMENT WITH ELTROMBOPAG DUE TO THE POTENTIAL FOR FALSELY ELEVATED RESULTS. TOTAL PROTEIN S/P/B 6.2(L) 6.4 - 8.2 G/DL 02/16/2024 1:59 PM CDT [facility] ALBUMIN S/P/B 2.5(L) 3.4 - 5.0 G/DL 02/16/2024 1:59 PM CDT [facility] AST 45(H) 15 - 37 U/L 02/16/2024 1:59 PM CDT [facility] ALT 60 16 - 60 U/L 02/16/2024 1:59 PM T [facility] ALKALINE PHOSPHATASE S/P/B 111 50 - 136 U/L 02/16/2024 1:59 PM CDT [facility] ANION GAP 7.7 2 - 10 MMOL/L 02/16/2024 1:59 PM CDT [facility] BUN CREATININE RATIO 12.6 6 - 26 02/16/2024 1:59 PM CDT [facility] A/G RATIO 0.7(L) 1.0 - 2.0 RATIO 02/16/2024 1:59 PM CDT [facility] GFR ESTIMATE 84(L) >90 ML/MIN/1.7 3 M2 02/16/2024 1:59 PM CDT [facility] Comment: NOTE: eGFR is not calculated for patients <18 years of age or gender unknown. This is an estimated GFR calculation using the new CKD EPI creatinine equation without race and so does not require a correction factor for race. This estimated GFR should not be used for calculating drug doses. 02/16/2024 9:32 AM CDT us Talia Watson MD LABORATORY Final Result [facility] [address] [id number], * (ABNORMAL) CBC W/DIFF AUTOMATED (02/16/2024 9:32 AM CDT) WBC 7.10 4.5 - 11.0 x10'3/uL 02/16/2024 9:51 AM CDT [facility] RBC 3.40(L) 4.70 - 6.10 x10'6/uL 02/16/2024 9:51 AM CDT [facility] HGB 10.8(L) 14.0 - 18.0 G/DL 02/16/2024 9:51 AM CDT [facility] HCT 34.6(L) 43.0 - 54.0 % 02/16/2024 9:51 AM CDT [facility] MCV 101.8(H) 80.0 - 94.0 FL 02/16/2024 9:51 AM CDT [facility] MCH 31.8(H) 27.0 - 31.0 PG 02/16/2024 9:51 AM CDT [facility] MCHC 31.2(L) 32.0 - 36.0 G/DL 02/16/2024 9:51 AM CDT [facility] RDW 15.6(H) 11.5 - 14.5 % 02/16/2024 9:51 AM CDT [facility] PLT 259 130 - 400 x10'3/uL 02/16/2024 9:51 AM CDT [facility] MPV 8.1(L) 9.3 - 12.2 FL 02/16/2024 9:51 AM CDT [facility] DIFFERENTIAL TYPE AUTOMATED DIFFERENTIAL 02/16/2024 9:51 AM CDT [facility] NEUTROPHILS % 64.0 % 02/16/2024 9:51 AM CDT [facility] LYMPHOCYTES % 27.7 % 02/16/2024 9:51 AM CDT [facility] MONOCYTES % 7.7 % 02/16/2024 9:51 AM CDT [facility] EOSINOPHILS 0.0 % 02/16/2024 9:51 AM CDT [facility] BASOPHILS 0.3 % 02/16/2024 9:51 AM CDT [facility] IMMATURE GRANS % 0.3 % 02/16/20 9:51 AM CDT [facility] ABS. NEUTROPHILS 4.54 1.80 - 7.70 x10'3/uL 02/16/2024 9:51 AM CDT [facility] ABS. LYMPHOCYTES 1.97 1.00 - 4.80 x10'3/uL 02/16/2024 9:51 AM CDT [facility] ABS. MONOCYTES 0.55 0.30 - 0.82 x10'3/uL 02/16/2024 9:51 AM CDT [facility] ABS. EOSINOPHILS 0.00(L) 0.04 - 0.54 x10'3/uL 02/16/2024 9:51 AM CDT [facility] ABS. BASOPHILS 0.02 0.01 - 0.08 x10'3/uL 02/16/2024 9:51 AM CDT [facility] ABS. IMMATURE GRANULOCYTES 0.02 0.00 - 0.49 x10'3/uL 02/16/2024 9:51 AM CDT [facility] 02/16/2024 9:32 AM CDT Talia Watson MD LABORATORY Final Result [facility] [address] [place] [address], [place] [phone] * (ABNORMAL) RESPIRATORY PCR PANEL 2 (02/16/2024 9:05 AM CDT) ADENOVIRUS PCR (RESP) NOT DETECTED NOT DETECTED 02/16/2024 11:01 AM CDT [facility] CORONAVIRUS 229E PCR (RESP) NOT DETECTED NOT DETECTED 02/16/2024 11:01 AM CDT [facility] CORONAVIRUS HKU1 PCR (RESP) NOT DETECTED NOT DETECTED 02/16/2024 11:01 AM CDT [facility] CORONAVIRUS NL63 PCR (RESP) NOT DETECTED NOT DETECTED 02/16/2024 11:01 AM CDT [facility] CORONAVIRUS OC43 PCR (RESP) NOT DETECTED NOT DETECTED 02/16/2024 11:01 AM CDT [facility] METAPNEUMOVIRUS PCR (RESP) NOT DETECTED NOT DETECTED 02/16/2024 11:01 AM CDT [facility] RHINOVIRUS/ENTEROV IRUS PCR (RESP) NOT DETECTED NOT DETECTED 02/16/2024 11:01 AM [facility] INFLUENZA A PCR (RESP) NOT DETECTED NOT DETECTED 02/16/2024 11:01 AM [facility] INFLUENZA B PCR (RESP) NOT DETECTED NOT DETECTED 02/16/2024 11:01 AM [facility] PARAINFLUENZA 1 PCR (RESP) NOT DETECTED NOT DETECTED 02/16/2024 11:01 AM [facility] PARAINFLUENZA 2 PCR (RESP) NOT DETECTED NOT DETECTED 02/16/2024 11:01 AM [facility] PARAINFLUENZA 3 PCR (RESP) NOT DETECTED NOT DETECTED 02/16/2024 11:01 AM [facility] PARAINFLUENZA 4 PCR (RESP) DETECTED(A) NOT DETECTED 02/16/2024 11:01 AM [facility] RSV PCR (RESP) NOT DETECTED NOT DETECTED 02/16/2024 11:01 AM [facility] B PARAPERTUSIS PCR (RESP) NOT DETECTED NOT DETECTED 02/16/2024 11:01 AM [facility] BORDETELLA PERTUSSIS PCR (RESP) NOT DETECTED NOT DETECTED 02/16/2024 11:01 AM [facility] CHLAMYDOPHILA PNEUMONIAE PCR (RESP) NOT DETECTED NOT DETECTED 02/16/2024 11:01 AM [facility] MYCOPLASMA PNEUMONIAE PCR (RESP) NOT DETECTED NOT DETECTED 02/16/2024 11:01 AM [facility] CORONAVIRUS SARS COV 2 PCR (RESP) NOT DETECTED NOT DETECTED 02/16/2024 11:01 AM [facility] NASOPHARYNGEAL SWAB / Unknown 02/16/2024 9:05 AM CDT us Trudi Nam NP MICROBIOLOGY - GENE [facility] ORDERABLES Final Result [facility] [address] [place] [address], [place] [phone] * (ABNORMAL) HEPATIC FUNCTION PANEL (02/15/2024 7:12 AM CDT) TOTAL PROTEIN S/P/B 6.1(L) 6.4 - 8.2 G/DL 02/15/2024 8:37 AM CDT [facility] ALBUMIN S/P/B 2.5(L) 3.4 - 5.0 G/DL 02/15/2024 8:37 AM CDT [facility] BILIRUBIN TOTAL S/P/B 0.2 0.2 - 1.2 MG/DL 02/15/2024 8:37 AM CDT [facility] Comment: THIS ASSAY IS NOT RECOMMENDED FOR PATIENTS UNDERGOING TREATMENT WITH ELTROMBOPAG DUE TO THE POTENTIAL FOR FALSELY ELEVATED RESULTS. BILIRUBIN DIRECT S/P/B <0.1 0.0 - 0.20 MG/DL 02/15/2024 8:37 AM CDT [facility] BILIRUBIN INDIRECT S/P/B NOT CALCULATED 0.0 - 0.9 MG/DL 02/15/2024 8:37 AM CDT [facility] ALKALINE PHOSPHATASE S/P/B 108 50 - 136 U/L 02/15/2024 8:37 AM CDT [facility] AST 44(H) 15 - 37 U/L 02/15/2024 8:37 AM CDT [facility] ALT 56 16 - 60 U/L 02/15/2024 8:37 AM CDT [facility] A/G RATIO 0.7(L) 1.0 - 2.0 RATIO 02/15/2024 8:37 AM CDT [facility] 02/15/2024 7:12 AM CDT Talia Watson MD LABORATORY Final Result Performing Organization Address City/[facility]/ZIP Co de Phone Number [facility] [address] [place] [address], * PROCALCITONIN (PCT) (02/15/2024 7:12 AM CDT) Procalcitonin <0.05 0.00 - 0.49 NG/ML 02/15/2024 9:10 AM CDT [facility] 02/15/2024 7:12 AM CDT Loreto DELANEY LABORATORY Final Result Performing Organization Address City/[facility]/ZIP Co de Phone Number [facility] [address] [place] [phone], * (ABNORMAL) BASIC METABOLIC PANEL (02/15/2024 7:12 AM CDT) GLUCOSE 104(H) 70 - 99 MG/DL 02/15/2024 8:37 AM CDT [facility] BUN 18 7 - 18 MG/DL 02/15/2024 8:37 AM CDT [facility] CREATININE S/P/B 1.01 0.7 - 1.3 MG/DL 02/15/2024 8:37 AM CDT [facility] SODIUM S/P/B 142 136 - 145 MMOL/L 02/15/2024 8:37 AM CDT [facility] POTASSIUM S/P/B 3.4(L) 3.5 - 5.1 MMOL/L 02/15/2024 8:37 AM CDT [facility] CHLORIDE S/P/B 112 97 - 115 MMOL/L 02/15/2024 8:37 AM CDT [facility] CO2 23.7 21 - 32 MMOL/L 02/15/2024 8:37 AM CDT [facility] CALCIUM S/P/B 8.3(L) 8.5 - 10.1 MG/DL 02/15/2024 8:37 AM CDT [facility] ANION GAP 6.3 2 - 10 MMOL/L 02/15/2024 8:37 AM CDT [facility] BUN CREATININE RATIO 17.8 6 - 26 02/15/2024 8:37 AM CDT [facility] GFR ESTIMATE 86(L) >90 ML/MIN/1.7 3 M2 02/15/2024 8:37 AM CDT [facility] Comment: NOTE: eGFR is not calculated for patients <18 years of age or gender unknown. This is an estimated GFR calculation using the new CKD EPI creatinine equation without race and so does not require a correction factor for race. This estimated GFR should not be used for calculating drug doses. 02/15/2024 7:12 AM CDT us Zac Farris MD LABORATORY Final Resul t [facility] [address] [place] [address], [place] [phone] * PROTHROMBIN TIME, VENOUS (02/15/2024 7:12 AM CDT) PROTIME 11.0 10.2 - 12.9 SEC 02/15/2024 8:18 AM CDT [facility] INR 1.0 02/15/2024 8:18 AM CDT [facility] Comment: Recommended INR Therapeutic Goals: ??2.0-3.0 Routine Therapy ??2.5-3.5 Mechanical Prosthetic Valves (High Risk) 02/15/2024 7:12 AM CDT us Zac Farris MD LABORATORY Final Resul t [facility] [address] [place] [address], [place] [phone] * (ABNORMAL) CBC W/DIFF AUTOMATED (02/15/2024 7:12 AM CDT) WBC 7.87 4.5 - 11.0 x10'3/uL 02/15/2024 8:14 AM CDT [facility] RBC 3.17(L) 4.70 - 6.10 x10'6/uL 02/15/2024 8:14 AM CDT [facility] HGB 10.1(L) 14.0 - 18.0 G/DL 02/15/2024 8:14 AM CDT [facility] HCT 31.6(L) 43.0 - 54.0 % 02/15/2024 8:14 AM CDT [facility] MCV 99.7(H) 80.0 - 94.0 FL 02/15/2024 8:14 AM CDT [facility] MCH 31.9(H) 27.0 - 31.0 PG 02/15/2024 8:14 AM CDT [facility] MCHC 32.0 32.0 - 36.0 G/DL 02/15/2024 8:14 AM CDT [facility] RDW 15.6(H) 11.5 - 14.5 % 02/15/2024 8:14 AM CDT [facility] PLT 275 130 - 400 x10'3/uL 02/15/2024 8:14 AM CDT [facility] MPV 8.4(L) 9.3 - 12.2 FL 02/15/2024 8:14 AM CDT [facility] DIFFERENTIAL TYPE AUTOMATED DIFFERENTIAL 02/15/2024 8:14 AM CDT [facility] NEUTROPHILS % 75.3 % 02/15/2024 8:14 AM CDT [facility] LYMPHOCYTES % 16.4 % 02/15/2024 8:14 AM CDT [facility] MONOCYTES % 8.0 % 02/15/2024 8:14 AM CDT [facility] EOSINOPHILS 0.0 % 02/15/2024 8:14 AM CDT [facility] BASOPHILS 0.0 % 02/15/2024 8:14 AM CDT [facility] IMMATURE GRANS % 0.3 % 02/15/20 8:14 AM CDT [facility] ABS. NEUTROPHILS 5.93 1.80 - 7.70 x10'3/uL 02/15/2024 8:14 AM CDT [facility] ABS. LYMPHOCYTES 1.29 1.00 - 4.80 x10'3/uL 02/15/2024 8:14 AM CDT [facility] ABS. MONOCYTES 0.63 0.30 - 0.82 x10'3/uL 02/15/2024 8:14 AM CDT [facility] ABS. EOSINOPHILS 0.00(L) 0.04 - 0.54 x10'3/uL 02/15/2024 8:14 AM CDT [facility] ABS. BASOPHILS 0.00(L) 0.01 - 0.08 x10'3/uL 02/15/2024 8:14 AM CDT [facility] ABS. IMMATURE GRANULOCYTES 0.02 0.00 - 0.49 x10'3/uL 02/15/2024 8:14 AM CDT [facility] 02/15/2024 7:12 AM CDT us Zac Farris MD LABORATORY Final Resul t [facility] [address] [place] [address], [place] [phone] * CULTURE RESPIRATORY W/ GRAM STAIN (02/14/2024 5:50 PM CDT) SPEC DESCRIPTION SPUTUM, EXPECTORATED 02/14/2024 5:55 PM CDT [facility] SPECIAL REQUESTS NO SPECIAL REQUEST 02/14/2024 5:55 PM CDT [facility] GRAM STAIN RESULT FEW WHITE BLOOD CELLS SEEN 02/15/2024 7:56 AM CDT [facility] GRAM STAIN RESULT MODERATE MIXED BACTERIAL JOSE EDUARDO 02/15/2024 7:56 AM CDT [facility] CULTURE RESULT LIGHT GROWTH OF NORMAL JOSE EDUARDO PRESENT 02/15/2024 6:55 AM CDT [facility] SPUTUM SPECIMEN / Unknown 02/14/2024 5:50 PM CDT 02/14/2024 5:56 PM CDT us Loreto DELANEY MICROBIOLOGY - GENERAL ORDERAB LES Final Result [facility] [address] [place] [address], [place] [phone] * USE ECHOCARDIOGRAM W CON (02/14/2024 3:49 PM CDT) Anatomical Region Laterality Modality NA Echocardiogram 02/14/2024 3:02 PM CDT Narrative 02/15/2024 4:19 AM CDT ?Echocardiography Report Pat.Name: ??JEANIE CHICAS ?? Pat.ID: ?[id number] ? St.Date: ?? 02/14/2024 ? Refer.MD: ??LISA ? Exam Time: 3:02:00 PM ? Study Type:ECHO WITH CARDIAC DOPPLER COMP Height: ?67 in ? Weight: ?142 lb ? BSA: ? 1.75 m2 ?Age: ??1965,58Y ? Sex: ? M ? BP: ?153/91 ? HR: ?115 bpm ? Sonogrphr: Tonn, Jonathan RDCS ? Pat. Stat.:Inpatient ? Room: ?462 ? Reason for Study:Dyspnea on exertion Procedures: 2D, M-mode, Doppler, Color Flow, Definity was used to enhance endocardial definition. The study quality is technically difficult. Diagnostic quality after administration of myocardial contrast. Race: ?B ? ++++++++++++++++++++++++++++++++++++ SUMMARY: ++++++++++++++++++++++++++++++++++++ The left ventricular systolic function is hyperdynamic. Estimated left ventricular ejection fraction is >80%. Left ventricular diastolic function is normal. Wall motion appears normal in all segments. Unable to reliably quantitate pulmonary systolic pressure. Inferior vena cava shows >50% collapse with respiration consistent with normal right atrial pressure. No significant valve disease. ++++++++++++++++++++++++++++++++++++ FINDINGS: ++++++++++++++++++++++++++++++++++++ LV: ? The left ventricular size is normal. The left ventricular ?systolic function is hyperdynamic. Estimated left ?ventricular ejection fraction is >80%. There is no left ?ventricular hypertrophy. Left ventricular diastolic function ?is normal. WM: ? Wall motion appears normal in all segments. RV: ? The right ventricular size is normal. Right ventricular ?systolic function is normal. IVS: ?No evidence of ventricular septal defect. LA: ? The left atrial size is normal. The left atrial volume is ?normal ( less than 34 ml/M2). RA: ? Right atrial size is normal. IAS: ?Atrial septum appears intact. FABRICIO: ? No evidence of pericardial effusion. AO: ? The sinus of Valsalva measures 3.0cm. PA: ? Estimated right atrial pressure of 3 mmHg. Unable to ?reliably quantitate pulmonary systolic pressure. SVn: ?Inferior vena cava shows >50% collapse with respiration ?consistent with normal right atrial pressure. AV: ? The aortic valve is trileaflet. No evidence of aortic valve ?stenosis. No evidence of aortic valve regurgitation. MV: ? No evidence of significant mitral regurgitation. No evidence ?of mitral stenosis. PV: ? No evidence of pulmonic valve stenosis. No evidence of ?pulmonic regurgitation. TV: ? No evidence of tricuspid regurgitation. No evidence of ?tricuspid valve stenosis. ++++++++++++++++++++++++++++++++++++ MEASUREMENTS: ++++++++++++++++++++++++++++++++++++ ?DOPPLER LVOT ?? LVOTpkPG ? 6 mmHg ?LVOTmnPG ? 3 mmHg LVOTpkVel ?121 cm/s (70-110)+* LVOT SV ? 62 ml ?? LVOT TVI ?16.2 cm ? Pulmonary Veins ?? PVnpkVeld ? 69.3 cm/s ?PVnVs/Vd ? 1.2 ? PVnpkVels ? 80.6 cm/s ?PVn A Dur ? 85 msec AV Forward Flow AV TVI ?24.1 cm ?AV pkPG ?9 mmHg AV pkVel ? 149 cm/s (100-170)+ Area (TVI) ?2.55 cm2 ??(3-5)* AV mnPG ?6 mmHg ?Area (Surinder) ?3.09 cm2 ??(3- 5) MV Forward Flow MV DeTm ?136 msec ?MV E/A ? 0.8 ? MVA P1/2t ?5.5 cm2 ??(4-6) ?MV pkE ?64.5 cm/s (60- 130) MV P1/2t ?40 msec (30-60)+ MV pkA ?85.9 cm/s PV Forward Flow PV TVI ?21.8 cm ?PV mnVel ?83.4 cm/s PV pkVel ? 129 cm/s (60-90)+* PV mnPG ?3 mmHg PV pkPG ?7 mmHg ?PV AC ? 82 msec TV Forward Flow TV pkE ?71.3 cm/s ? Lat E' ?? Lat e ? 9.57 cm/s ? Lat E/E' ?? Lat E/e ?6.7 ? Med E' ?? Med e ? 9.36 cm/s ? Med E/E' ?? Med E/e ?6.9 ? Aortic Valve ?? Aortic Valve Ar ??1.46 ?Aortic Valve Ve ??0.81 ? PV Antegrade Flow Acceleration Sl ??1163 cm/s2 ? Right Atrium ?? Lamas's Disk ? 20 ? Right Ventricle ?? Right Ventricle ??15.8 cm/s ?2D Left Ventricle ?? LVIDd ? 3.75 cm ?? (3.6-5.2) LV ESV ?14.2 ml ?? LVIDs ? 2.71 cm ?? (2.3-3.9) LV ESV ?19 ml ?? LngAxd ? 7.9 cm ?LVESV BP ?17.6 ml ?? LngAxd ?8.39 cm ?LV EF ? 85.7 % ?? LV EDV ?98.9 ml ?LV EF ? 78.4 % ?? LV EDV ?87.9 ml ?LV EF BP ?81.7 % ?? LVEDV BP ?96 ml ?LV SV ? 84.8 ml ?? LngAxs ?6.15 cm ?LV SV ? 68.9 ml ?? LngAxs ?7.53 cm ?LV SV BP ?78.4 ml ?? LVPW ?? LVPWd ?0.947 cm ? Right Ventricle ?? RVIDd ? 2.65 cm ?? (2.6-4.3) Right Ventricle ?22 mm ?? Right Ventricle ??26.7 mm ? Right and Left ??0.707 ? Major [place] ?67.5 mm ? Ventricular Septum ?? IVSd ? 0.845 cm ? Left Atrium ?? LA VOLBP ?28.7 ml ? Aorta ?? Ao Rtd ? 3 cm ? LVOT ?? LVOT ? 2.2 cm ?LVOTArea ? 3.8 cm2 Ratios ?? IVS Inferior vena cava ?? IVC Diam ?14.3 mm ? LA Biplane LAVol I BP ?16.4 ml/m2 ? RA Single Plane Right Atrium MO ??8.32 mm ? Right Atrium Sy ??14.6 ml ?? Right Atrium Sy ??36.9 mm ? Right Atrium Sy ?? 8.3 ml/m2 Right Atrium Sy ?? 8.3 cm2 ?MMODE Aorta ?? Ao Rt ?2.9 cm ?? (zsc 0.7) Aortic Valve ?? AV sep ? 1.9 cm ?? (1.5-2.6) TA ?? Tricuspid Annul ??16.4 mm ? <Electronic Signature> 02/15/2024 04:19 AM Semaj Smith M.D. Procedure Note Semaj Smith MD - 02/15/2024 Echocardiography Report Pat.Name: JEANIE CHICAS Pat.ID: [id number] .Date: 02/14/2024 Refer.MD: LISA Exam Time: 3:02:00 PM Study Type:ECHO WITH CARDIAC DOPPLER COMP Height: 67 in Weight: 142 lb BSA: 1.75 m2 Age: 6 1965,58Y Sex: M BP: 153/91 HR: 115 bpm Sonogrphr: Jonathan Vazquez [facility] Pat. Stat.:Inpatient Room: 462 Reason for Study:Dyspnea on exertion Procedures: 2D, M-mode, Doppler, Color Flow, Definity was used to enhance endocardial definition. The study quality is technically difficult. Diagnostic quality after administration of myocardial contrast. Race: B ++++++++++++++++++++++++++++++++++++ SUMMARY: ++++++++++++++++++++++++++++++++++++ The left ventricular systolic function is hyperdynamic. Estimated left ventricular ejection fraction is >80%. Left ventricular diastolic function is normal. Wall motion appears normal in all segments. Unable to reliably quantitate pulmonary systolic pressure. Inferior vena cava shows >50% collapse with respiration consistent with normal right atrial pressure. No significant valve disease. ++++++++++++++++++++++++++++++++++++ FINDINGS: ++++++++++++++++++++++++++++++++++++ LV: The left ventricular size is normal. The left ventricular systolic function is hyperdynamic. Estimated left ventricular ejection fraction is >80%. There is no left ventricular hypertrophy. Left ventricular diastolic function is normal. WM: Wall motion appears normal in all segments. RV: The right ventricular size is normal. Right ventricular systolic function is normal. IVS: No evidence of ventricular septal defect. LA: The left atrial size is normal. The left atrial volume is normal ( less than 34 ml/M2). RA: Right atrial size is normal. IAS: Atrial septum appears intact. FABRICIO: No evidence of pericardial effusion. AO: The sinus of Valsalva measures 3.0cm. PA: Estimated right atrial pressure of 3 mmHg. Unable to reliably quantitate pulmonary systolic pressure. SVn: Inferior vena cava shows >50% collapse with respiration consistent with normal right atrial pressure. AV: The aortic valve is trileaflet. No evidence of aortic valve stenosis. No evidence of aortic valve regurgitation. MV: No evidence of significant mitral regurgitation. No evidence of mitral stenosis. PV: No evidence of pulmonic valve stenosis. No evidence of pulmonic regurgitation. TV: No evidence of tricuspid regurgitation. No evidence of tricuspid valve stenosis. ++++++++++++++++++++++++++++++++++++ MEASUREMENTS: ++++++++++++++++++++++++++++++++++++ DOPPLER LVOT LVOTpkPG 6 mmHg LVOTmnPG 3 mmHg LVOTpkVel 121 cm/s (70-110)+* LVOT SV 62 ml LVOT TVI 16.2 cm Pulmonary Veins PVnpkVeld 69.3 cm/s PVnVs/Vd 1.2 PVnpkVels 80.6 cm/s PVn A Dur 85 msec AV Forward Flow AV TVI 24.1 cm AV pkPG 9 mmHg AV pkVel 149 cm/s (100-170)+ Area (TVI) 2.55 cm2 (3-5)* AV mnPG 6 mmHg Area (Surinder) 3.09 cm2 (3-5) MV Forward Flow MV DeTm 136 msec MV E/A 0.8 MVA P1/2t 5.5 cm2 (4-6) MV pkE 64.5 cm/s (60-130) MV P1/2t 40 msec (30-60)+ MV pkA 85.9 cm/s PV Forward Flow PV TVI 21.8 cm PV mnVel 83.4 cm/s PV pkVel 129 cm/s (60-90)+* PV mnPG 3 mmHg PV pkPG 7 mmHg PV AC 82 msec TV Forward Flow TV pkE 71.3 cm/s Lat E' Lat e 9.57 cm/s Lat E/E' Lat E/e 6.7 Med E' Med e 9.36 cm/s Med E/E' Med E/e 6.9 Aortic Valve Aortic Valve Ar 1.46 Aortic Valve Ve 0.81 PV Antegrade Flow Acceleration Sl 1163 cm/s2 Right Atrium Lamas's Disk 20 Right Ventricle Right Ventricle 15.8 cm/s 2D Left Ventricle LVIDd 3.75 cm (3.6-5.2) LV ESV 14.2 ml LVIDs 2.71 cm (2.3-3.9) LV ESV 19 ml LngAxd 7.9 cm LVESV BP 17.6 ml LngAxd 8.39 cm LV EF 85.7 % LV EDV 98.9 ml LV EF 78.4 % LV EDV 87.9 ml LV EF BP 81.7 % LVEDV BP 96 ml LV SV 84.8 ml LngAxs 6.15 cm LV SV 68.9 ml LngAxs 7.53 cm LV SV BP 78.4 ml LVPW LVPWd 0.947 cm Right Ventricle RVIDd 2.65 cm (2.6-4.3) Right Ventricle 22 mm Right Ventricle 26.7 mm Right and Left 0.707 [place] 67.5 mm Ventricular Septum IVSd 0.845 cm Left Atrium LA VOLBP 28.7 ml Aorta Ao Rtd 3 cm LVOT LVOT 2.2 cm LVOTArea 3.8 cm2 Ratios IVS Inferior vena cava IVC Diam 14.3 mm LA Biplane LAVol I BP 16.4 ml/m2 RA Single Plane Right Atrium MO 8.32 mm Right Atrium Sy 14.6 ml Right Atrium Sy 36.9 mm Right Atrium Sy 8.3 ml/m2 Right Atrium Sy 8.3 cm2 MMODE Aorta Ao Rt 2.9 cm (zsc 0.7) Aortic Valve AV sep 1.9 cm (1.5-2.6) TA Tricuspid Annul 16.4 mm <Electronic Signature> 02/15/2024 04:19 AM Semaj Smith M.D. [facility] ECHO Final Result * (ABNORMAL) DRUG SCREEN RAPID (02/14/2024 2:23 PM CDT) AMPHETAMINE (U) NEGATIVE NEGATIVE 3:06 PM CDT [facility] BARBITURATES SCREEN (U) NEGATIVE NEGATIVE 02/14/2024 3:06 PM CDT [facility] BENZODIAZEPINES SCREEN (U) NEGATIVE NEGATIVE 02/14/2024 3:06 PM CDT [facility] CANNABINOIDS SCREEN (U) NEGATIVE NEGATIVE 02/14/2024 3:06 PM CDT [facility] COCAINE METABOLITES (U) POSITIVE(A) NEGATIVE 02/14/2024 3:06 PM CDT [facility] METHADONE (U) NEGATIVE NEGATIVE 02/14/2024 3:06 PM CDT [facility] OPIATE SCREEN (U) NEGATIVE NEGATIVE 024 3:06 PM CDT [facility] PHENCYCLIDINE PCP (U) NEGATIVE NEGATIVE 02/14/2024 3:06 PM CDT [facility] Comment: NOTE: RESULTS OF THIS DRUG SCREEN SHOULD BE USED FOR MEDICAL PURPOSES ONLY AND NOT FOR LEGAL OR EMPLOYMENT PURPOSES. POSITIVE RESULTS ARE NOT CONFIRMED. MEDICATIONS CONTAINING EPHEDRINE MAY CAUSE FALSE POSITIVE AMPHETAMINE CALL , LAB, TO REQUEST CONFIRMATION TESTING. IF CREATININE IS <40 mg/dL. ??RECOLLECTION IS SUGGESTED. AMPHETAMINE- ?500 NG/ML BARBITURATE- ?200 NG/ML BENZODIAZEPINES- ??200 NG/ML THC- ? 50 NG/ML COCAINE- ?150 NG/ML METHADONE- ?300 NG/ML OPIATE- ? 300 MG/ML PCP- ? 25 NG/ML CREATININE (U) 203.0 39 - 259 MG/DL 02/14/2024 3:06 PM CDT [facility] URINE SPECIMEN / Unknown 02/14/2024 2:23 PM CDT [facility] URINE ORDERABLES Final Result Performing Organization Address [facility]/State/ZIP Co de Phone Number [facility] [address] [place] [address], [place] [phone] * INFLUENZA A & B, RAPID (02/14/2024 12:00 PM CDT) SPECIMEN TYPE NASAL 02/14/2024 12:42 PM CDT [facility] INFLUENZA A NEGATIVE NEGATIVE 02/14/2024 1:20 PM CDT [facility] INFLUENZA B NEGATIVE NEGATIVE 02/14/2024 1:20 PM CDT [facility] Comment: Interpretation: Negative for Influenza A and B. A negative result does not exclude influenza virus infection. If influenza is circulating in your community, a diagnosis of influenza should be considered based on a patient's clinical presentation and empiric antiviral treatment should be considered, if indicated. If more conclusive testing is needed for hospitalized inpatients, follow-up confirmatory testing with RT-PCR requires a separate order. NASAL STRUCTURE / Unknown 02/14/2024 12:00 PM CDT [facility] MICROBIOLOGY - GENERAL ORDERAB LES Final Result Performing Organization Address City/[facility]/ZIP Co de Phone Number [facility] [address] [place] [address], * TROPONIN, QUANT (02/14/2024 11:58 AM CDT) TROPONIN I HIGH SENSITIVITY 18 <79 ng/L 02/14/2024 12:33 PM CDT [facility] Comment: HIGH DOSES OF BIOTIN, TROPONIN-SPECIFIC AUTOANTIBODIES, AND ANTIBODY THERAPY CONTAINING HAMA MAY INTERFERE WITH THIS TEST RESULT. CORRELATION TO CLINICAL HISTORY AND PRESENTATION RECOMMENDED. 02/14/2024 11:5 8 AM CDT Zac Farris MD LABORATORY Final Resul t [facility] [address] [place] [address], [place] [phone] * PROCALCITONIN (PCT) (02/14/2024 9:16 AM CDT) Procalcitonin <0.05 0.00 - 0.49 NG/ML 02/14/2024 11:37 AM CDT [facility] 02/14/2024 9:16 AM CDT us [facility] DELANEY LABORATORY Final Result [facility] [address] [place] [address], [place] [phone] * (ABNORMAL) CBC W/DIFF AUTOMATED (02/14/2024 9:16 AM CDT) WBC 8.72 4.5 - 11.0 x10'3/uL 02/14/2024 10:16 AM CDT [facility] RBC 3.46(L) 4.70 - 6.10 x10'6/uL 02/14/2024 10:16 AM CDT [facility] HGB 10.9(L) 14.0 - 18.0 G/DL 02/14/2024 10:16 AM CDT [facility] HCT 33.3(L) 43.0 - 54.0 % 02/14/2024 10:16 AM CDT [facility] MCV 96.2(H) 80.0 - 94.0 FL 02/14/2024 10:16 AM CDT [facility] MCH 31.5(H) 27.0 - 31.0 PG 02/14/2024 10:16 AM CDT [facility] MCHC 32.7 32.0 - 36.0 G/DL 02/14/2024 10:16 AM CDT [facility] RDW 14.9(H) 11.5 - 14.5 % 02/14/2024 10:16 AM CDT [facility] PLT 289 130 - 400 x10'3/uL 02/14/2024 10:16 AM CDT [facility] MPV 8.2(L) 9.3 - 12.2 FL 02/14/2024 10:16 AM CDT [facility] DIFFERENTIAL TYPE AUTOMATED DIFFERENTIAL 02/14/2024 10:16 AM T [facility] NEUTROPHILS % 86.5 % 02/14/2024 10:16 AM T [facility] LYMPHOCYTES % 9.6 % 02/14/2024 10:16 AM CDT [facility] MONOCYTES % 3.4 % 02/14/2024 10:16 AM CDT [facility] EOSINOPHILS 0.0 % 02/14/2024 10:16 AM T [facility] BASOPHILS 0.0 % 02/14/2024 10:16 AM T [facility] IMMATURE GRANS % 0.5 % 02/14/20 10:16 AM CDT [facility] ABS. NEUTROPHILS 7.54 1.80 - 7.70 x10'3/uL 02/14/2024 10:16 AM CDT [facility] ABS. LYMPHOCYTES 0.84(L) 1.00 - 4.80 x10'3/uL 02/14/2024 10:16 AM [facility] ABS. MONOCYTES 0.30 0.30 - 0.82 x10'3/uL 02/14/2024 10:16 AM T [facility] ABS. EOSINOPHILS 0.00(L) 0.04 - 0.54 x10'3/uL 02/14/2024 10:16 AM T [facility] ABS. BASOPHILS 0.00(L) 0.01 - 0.08 x10'3/uL 02/14/2024 10:16 AM [facility] ABS. IMMATURE GRANULOCYTES 0.04 0.00 - 0.49 x10'3/uL 02/14/2024 10:16 AM T [facility] 02/14/2024 9:16 AM CDT [facility] LABORATORY Final Result [facility] [address] [place] [address], [place] [phone] * (ABNORMAL) BASIC METABOLIC PANEL (02/14/2024 9:16 AM CDT) Pathologist [facility] GLUCOSE 135(H) 70 - 99 MG/DL 02/14/2024 10:17 AM CDT [facility] BUN 14 7 - 18 MG/DL 02/14/2024 10:17 AM CDT [facility] CREATININE S/P/B 1.22 0.7 - 1.3 MG/DL 02/14/2024 10:17 AM CDT [facility] SODIUM S/P/B 140 136 - 145 MMOL/L 02/14/2024 10:17 AM CDT [facility] POTASSIUM S/P/B 3.8 3.5 - 5.1 MMOL/L 02/14/2024 10:17 AM CDT [facility] CHLORIDE S/P/B 110 97 - 115 MMOL/L 02/14/2024 10:17 AM CDT [facility] CO2 20.3(L) 21 - 32 MMOL/L 02/14/2024 10:17 AM CDT [facility] CALCIUM S/P/B 8.8 8.5 - 10.1 MG/DL 02/14/2024 10:17 AM CDT [facility] ANION GAP 9.7 2 - 10 MMOL/L 02/14/2024 10:17 AM CDT [facility] BUN CREATININE RATIO 11.5 6 - 26 02/14/2024 10:17 AM CDT [facility] GFR ESTIMATE 69(L) >90 ML/MIN/1.7 3 M2 02/14/2024 10:17 AM CDT [facility] Comment: NOTE: eGFR is not calculated for patients <18 years of age or gender unknown. This is an estimated GFR calculation using the new CKD EPI creatinine equation without race and so does not require a correction factor for race. This estimated GFR should not be used for calculating drug doses. 02/14/2024 9:16 AM CDT us [facility] DEL[facility] LABORATORY Final Result [facility] [address] [place] [address], [place] [phone] * LIPID PANEL (02/14/2024 9:16 AM CDT) CHOLESTEROL 98 <200 MG/DL 02/14/2024 10:28 AM CDT [facility] TRIGLYCERIDES 78 <150 MG/DL 02/14/2024 10:28 AM CDT [facility] HDL 64 >40.0 MG/DL 02/14/2024 10:28 AM CDT [facility] LDL (CALCULATED) 18 <100 MG/DL 02/14/20 10:28 AM CDT [facility] NON HDL CHOLESTEROL 34 <130 MG/DL 02/13 10:28 AM CDT [facility] CHOL/HDL RATIO 1.5 0.0 - 4.5 02/14/2024 10:28 AM CDT [facility] VLDL CALCULATION 16 5 - 55 MG/DL 02/14/2024 10:28 AM CDT [facility] LIPID INTERPRETATION 02/14/2024 10:28 AM CDT [facility] Comment: [facility] REPORT RECOMMENDATIONS: ?ADULT ?CHILD ??LOW RISK: ?CHOLESTEROL ? <200 ? <170 ?TRIGLYCERIDE ?<150 ?--- ?HDL ? >=60 ?--- ?LDL ? <100 ? <110 ??BORDERLINE: ?CHOLESTEROL ? 200-239 ?? 170-199 ?TRIGLYCERIDE ?150-199 ? --- ?HDL ?40-59 ?--- ?LDL ? 100-159 ?? 110-129 ??HIGH RISK: ?CHOLESTEROL ? >=240 ?>=200 ?TRIGLYCERIDE ?>=200 ? --- ?HDL ?<40 ?--- ?LDL ? >=160 ?>=130 02/14/2024 9:16 AM CDT us Zac Farris MD LABORATORY Final Resul t [facility] [address] [place] [address], * TROPONIN, QUANT (02/14/2024 9:16 AM CDT) TROPONIN I HIGH SENSITIVITY 24 <79 ng/L 02/14/2024 10:28 AM CDT [facility] Comment: HIGH DOSES OF BIOTIN, TROPONIN-SPECIFIC AUTOANTIBODIES, AND ANTIBODY THERAPY CONTAINING HAMA MAY INTERFERE WITH THIS TEST RESULT. CORRELATION TO CLINICAL HISTORY AND PRESENTATION RECOMMENDED. 02/14/2024 9:16 AM CDT us Zac Farris MD LABORATORY Final Resul t [facility] [address] [place] [address], * THYROID STIM HORMONE, TSH (02/14/2024 9:16 AM CDT) [facility] TSH 0.439 0.358 - 3.74 uIU/ML 02/14/2024 10:28 AM CDT [facility] Comment: HIGH DOSES OF BIOTIN MAY INTERFERE WITH THIS TEST RESULT. CORRELATION TO CLINICAL HISTORY AND PRESENTATION RECOMMENDED. 02/14/2024 9:16 AM CDT us Zac Farris MD LABORATORY Final Resul t [facility] [address] [place] [address], * (ABNORMAL) HEMOGLOBIN, GLYCATED (02/14/2024 9:16 AM CDT) Pathologist [facility] HGB A1C 6.3(H) <5.7 % 02/14/2024 6:53 PM CDT [facility] Comment: ADA GUIDELINES 2010 5.7 TO 6.4% INCREASED RISK OF DIABETES > OR = 6.5% CONSISTENT WITH DIABETES ESTIMATED AVG GLUCOSE 134 mg/dL 02/14/2024 6:53 PM CDT [facility] 02/14/2024 9:16 AM CDT Zac Farris MD LABORATORY Final Resul t [facility] [address] [place] [address], * MAGNESIUM (02/14/2024 9:16 AM CDT) MAGNESIUM 1.8 1.8 - 2.4 MG/DL 02/14/2024 10:28 AM CDT [facility] 02/14/2024 9:16 AM CDT Zac Farris MD LABORATORY Final Resul t Performing Organization Address City/[facility]/ZIP Co de Phone Number [facility] [address] [place] [address], [place] [phone] * ETHANOL (02/14/2024 9:15 AM CDT) ALCOHOL S/P/B <0.003 <0.003 G/DL 02/14/2024 11:29 AM CDT [facility] 02/14/2024 9:15 AM CDT [facility] LABORATORY Final Result [facility] [address] [place] [address], * (ABNORMAL) ARTERIAL BLOOD GAS (02/14/2024 8:27 AM CDT) PH ARTERIAL 7.42 7.35 - 7.45 02/14/2024 8:40 AM CDT [facility] PCO2 35.0 35.0 - 45.0 MMHG 02/14/2024 8:40 AM CDT [facility] PO2 66.0(L) 83.0 - 108.0 MMHG 02/14/2024 8:40 AM CDT [facility] TOTAL CO2 ARTERIAL 23.8 19.0 - 24.0 MMOL/L 02/14/2024 8:40 AM CDT [facility] BASE DEFICIT 1.3 0.0 - 3.0 MMOL/L 02/14/2024 8:40 AM CDT [facility] O2 SATURATION 93(L) 94.0 - 98.0 % 02/14/2024 8:40 AM CDT [facility] BICARB ARTERIAL 22.7 21.0 - 28.0 MMOL/L 02/14/2024 8:40 AM CDT [facility] LORENA TEST LORENA TEST PERFORMED 02/14/2024 8:38 AM CDT [facility] O2 ADMIN ARTERIAL 21% 02/14/2024 8:38 AM CDT [facility] DRAW SITE ARTERIAL LT RADIAL 02/14/2024 8:38 AM CDT [facility] 02/14/2024 8:27 AM CDT us L[facility]to DELANEY LABORATORY Final Result [facility] [address] [place] [address], [place] [phone] * CTA CHEST PE PROTOCOL (02/14/2024 1:49 AM CDT) Anatomical Region Laterality Modality Chest Computed Tomogra phy 02/14/2024 1:54 AM CDT Impressions 02/14/2024 2:01 AM CDT IMPRESSION: 1. ??No pulmonary thromboembolic disease. 2. ??Moderate bronchial wall thickening with tiny tree-in-bud opacities within the right lung apices that may be seen in the setting of bronchitis and/or pneumonia. 3. ??Moderate to marked pulmonary emphysema. Referred By: ?? Interpreted By: Uday Mello MD, 02/14/2024 1:54 AM Narrative 02/14/2024 2:01 AM CDT [address] [address] EXAMINATION: CTA CHEST PE PROTOCOL, 02/14/2024 1:54 AM TECHNIQUE: Computed tomographic images of the chest were obtained after the administration of 80 mL of Isovue 370 injected through the IV, without evidence of adverse reaction. Additional coronal and sagittal reformatted as well as maximum intensity projection images were generated. A dose lowering technique was used for this procedure, which may include, but is not limited to, dose reduction technique, automated exposure control, the use of iterative reconstruction, and ALARA (As Low As Reasonably Achievable) / Image Gently techniques. HISTORY: 58-year-old male presenting to the emergency department with a chief complaint of dyspnea. ??He states his symptoms feel identical to past COPD. ??He has had increased cough with more difficult to produce sputum though it is the same color as it normally is. ??He was seen at an outside hospital yesterday for similar symptoms. ??He was prescribed steroids and given 2 breathing treatments. ??He has used his home inhalers as well, though cannot name what they are. ??He was not prescribed antibiotics. COMPARISON: Chest radiograph 02/13/2024 FINDINGS: The pulmonary arteries are well-opacified there is no pulmonary thromboembolic disease. ??There is no focal pulmonary consolidation. ??Moderate bronchial wall thickening. ??Tiny tree-in-bud opacities within the right lung apices. ??No pleural effusion. ??No pneumothorax. ??Calcified granuloma within right lower lobe. ??Calcified lymph nodes in the right hilum. ??Moderate to marked pulmonary emphysema. ??Heart size is normal. ??No pericardial abnormality. ??The caliber of the thoracic aorta is normal. ??Retained epicardial pacing wires. ??Findings related to prior CABG. ??No acute fracture nor destructive process of the visualized osseous structures. ??Small to medium bilateral gynecomastia. Procedure Note Uday Mello MD - 02/14/2024 [facility] [address] [place], [place] [address] EXAMINATION: CTA CHEST PE PROTOCOL, 02/14/2024 1:54 AM TECHNIQUE: Computed tomographic images of the chest were obtained afterthe administration of 80 mL of Isovue 370 injected through the IV, withoutevidence of adverse reaction. Additional coronal and sagittal reformattedas well as maximum intensity projection images were generated. A doselowering technique was used for this procedure, which may include, but isnot limited to, dose reduction technique, automated exposure control, theuse of iterative reconstruction, and ALARA (As Low As ReasonablyAchievable) / Image Gently techniques. HISTORY: 58-year-old male presenting to the emergency department with achief complaint of dyspnea. He states his symptoms feel identical to pastCOPD. He has had increased cough with more difficult to produce sputumthough it is the same color as it normally is. He was seen at an outsidehospital yesterday for similar symptoms. He was prescribed steroids andgiven 2 breathing treatments. He has used his home inhalers as well,though cannot name what they are. He was not prescribed antibiotics. COMPARISON: Chest radiograph 02/13/2024 FINDINGS: The pulmonary arteries are well-opacified there is no pulmonarythromboembolic disease. There is no focal pulmonary consolidation.Moderate bronchial wall thickening. Tiny tree-in-bud opacities within theright lung apices. No pleural effusion. No pneumothorax. Calcifiedgranuloma within right lower lobe. Calcified lymph nodes in the righthilum. Moderate to marked pulmonary emphysema. Heart size is normal. Nopericardial abnormality. The caliber of the thoracic aorta is normal.Retained epicardial pacing wires. Findings related to prior CABG. Noacute fracture nor destructive process of the visualized osseousstructures. Small to medium bilateral gynecomastia. IMPRESSION: 1. No pulmonary thromboembolic disease. 2. Moderate bronchial wall thickening with tiny tree-in-bud opacitieswithin the right lung apices that may be seen in the setting of bronchitisand/or pneumonia. 3. Moderate to marked pulmonary emphysema. Referred By: Interpreted By: Uday Mello MD, 02/14/2024 1:54 AM us Ugo Billings MD,PHD CT Final Resu lt * ECG 12 lead (02/13/2024 11:45 PM CDT) 02/13/2024 11:4 5 PM CDT Narrative [facility] ([facility]) RAD - 02/14/2024 2:31 PM CDT ?[facility] [address] [facility] ? Test Date: ?2024-02-13 Pat Name: ? JEANIE CHICAS ? Department: ?? 41 ? Room: ? B462 Gender: ? Male ? Telehealth Nurse: ?? : ?1965 ? Requested By: JUNE PASCAL Order Number: [id number] ? Reading MD: ?? Semaj Smith ? Measurements Intervals ?[place] ? Rate: ? 78 ? P: ?80 RI: ? 120 ?QRS: ?70 QRSD: ? 92 ? T: ?54 QT: ? 413 ? QTc: ?473 ? Interpretive Statements SINUS RHYTHM No previous ECG available for comparison Procedure Note Semaj Smith MD - 02/14/2024 [facility] [address] [place] Test Date: 2024-02-13 Pat Name: JEANIE CHICAS Department: 41 Room: [facility] Gender: Male Telehealth Nurse: : 1965 Requested By: JUNE PASCAL Order Number: [id number] Reading MD: Semaj Smith Measurements Intervals [place] Rate: 78 P: 80 RI: 120 QRS: 70 QRSD: 92 T: 54 QT: 413 QTc: 473 Interpretive Statements SINUS RHYTHM No previous ECG available for comparison June DELANEY ECG ORDERABLES Final Result Performing Organization Address City/[facility]/ZIP Co de Phone Number [facility] * CORONAVIRUS (COVID 19) (02/13/2024 11:17 PM CDT) CORONAVIRUS SARS COV 2 RNA NEGATIVE NEGATIVE 02/13/2024 11:40 PM CDT [facility] Comment: NEGATIVE RESULTS DO NOT RULE OUT COVID 19 AND SHOULD NOT BE USED THE SOLE BASIS FOR TREATMENT OR PATIENT MANAGEMENT DECISIONS, INCLUDING INFECTION CONTROL DECISIONS. NEGATIVE RESULTS SHOULD BE CONSIDERED IN THE CONTEXT OF A PATIENT'S RECENT EXPOSURES, HISTORY AND THE PRESENCE OF CLINICAL SIGNS AND SYMPTOMS CONSISTENT WITH COVID 19. THE ID NOW COVID-19 2.0 TEST HAS BEEN AUTHORIZED BY THE FDA UNDER EAU FOR USE BY AUTHORIZED LABORATORIES. PERFORMED BY NUCLEIC ACID AMPLIFICATION FOR MOLECULAR QUALITATIVE DETECTION OF SARS-COV-2. SPECIMEN TYPE NASAL 02/13/2024 11:17 PM CDT [facility] NASAL STRUCTURE / Unknown 02/13/2024 11:17 PM CDT June DELANEY MICROBIOLOGY - GENERAL ORDERAB LES Final Result Performing Organization Address City/[facility]/ZIP Co de Phone Number [facility] [address] [place] [address], [place] [phone] * (ABNORMAL) PRO-BRAIN NATRIURETIC PEPTIDE (02/13/2024 11:13 PM CDT) PRO-B TYPE NATRIURETIC PEPTIDE 151(H) <125 PG/ML 02/14/2024 2:10 AM CDT [facility] Comment: CUT POINTS ESTABLISHED BY [employer] ON NT PROBNP (ICON) STUDY (2006). AGE INDEPENDENT: <300 PG/ML HAS A 99% NEGATIVE PREDICTIVE VALUE FOR EXCLUDING ACUTE CHF <50 YEARS: >450 PG/ML IS CONSISTENT WITH ACUTE CHF 50-75 YEARS: >900 PG/ML IS CONSISTENT WITH ACUTE CHF >75 YEARS: >1800 PG/ML IS CONSISTENT WITH ACUTE CHF IN PATIENTS WITH RENAL INSUFFICIENCY (GFR <60), >1200 PG/ML YIELDS A DIAGNOSTIC SENSITIVITY AND SPECIFICITY OF 89% AND 72% FOR ACUTE CHF. 02/13/2024 11:1 3 PM CDT Ugo Billings MD,PHD LABORATORY Final Resu lt Performing Organization Address [facility] Co de Phone Number [facility] [address] [place] [address], [place] [phone] * TROPONIN, QUANT (02/13/2024 11:13 PM CDT) TROPONIN I HIGH SENSITIVITY 7 <79 ng/L 02/13/2024 11:48 PM CDT [facility] Comment: HIGH DOSES OF BIOTIN, TROPONIN-SPECIFIC AUTOANTIBODIES, AND ANTIBODY THERAPY CONTAINING HAMA MAY INTERFERE WITH THIS TEST RESULT. CORRELATION TO CLINICAL HISTORY AND PRESENTATION RECOMMENDED. 02/13/2024 11:1 3 PM CDT June DELANEY LABORATORY Final Result Performing Organization Address [facility] Co de Phone Number [facility] [address] [place] [address], [place] [phone] * (ABNORMAL) BASIC METABOLIC PANEL (02/13/2024 11:13 PM CDT) GLUCOSE 145(H) 70 - 99 MG/DL 02/13/2024 11:48 PM CDT [facility] BUN 16 7 - 18 MG/DL 02/13/2024 11:48 PM CDT [facility] CREATININE S/P/B 1.16 0.7 - 1.3 MG/DL 02/13/2024 11:48 PM CDT [facility] SODIUM S/P/B 140 136 - 145 MMOL/L 02/13/2024 11:48 PM CDT [facility] POTASSIUM S/P/B 3.4(L) 3.5 - 5.1 MMOL/L 02/13/2024 11:48 PM CDT [facility] CHLORIDE S/P/B 110 97 - 115 MMOL/L 02/13/2024 11:48 PM CDT [facility] CO2 24.2 21 - 32 MMOL/L 02/13/2024 11:48 PM CDT [facility] CALCIUM S/P/B 8.3(L) 8.5 - 10.1 MG/DL 02/13/2024 11:48 PM CDT [facility] ANION GAP 5.8 2 - 10 MMOL/L 02/13/2024 11:48 PM CDT [facility] BUN CREATININE RATIO 13.8 6 - 26 02/13/2024 11:48 PM CDT [facility] GFR ESTIMATE 73(L) >90 ML/MIN/1.7 3 M2 02/13/2024 11:48 PM CDT [facility] Comment: NOTE: eGFR is not calculated for patients <18 years of age or gender unknown. This is an estimated GFR calculation using the new CKD EPI creatinine equation without race and so does not require a correction factor for race. This estimated GFR should not be used for calculating drug doses. 02/13/2024 11:1 3 PM CDT us June DELANEY LABORATORY Final Result [facility] [address] [place] [address], [place] [phone] * (ABNORMAL) D-DIMER, QUANTITATIVE (02/13/2024 11:13 PM CDT) Pathologist [facility] D-DIMER 709(HH) 0 - 500 ng{FEU}/mL 02/13/2024 11:57 PM CDT [facility] Comment: D-Dimer values less than or equal to 500 ng/mL FEU have a negative predictive value of >95% for exclusion of deep vein thrombosis and pulmonary embolism. In patients over 50 (who tend to have higher normal baseline D-Dimer values), recent studies suggest age-adjusted D-Dimer cutoff values (calculated as: age [years] x 10 ng/mL) result in equivalent outcomes and no additional false negative findings. Successful Call: DDIMR called 02/13/2024 11:58 PM to ROOM [facility] ([facility]) by [id number]. Read Back: Yes 02/13/2024 11:1 3 PM CDT June DELANEY LABORATORY Final Result [facility] [address] [place] [address], [place] [phone] * (ABNORMAL) CBC W/DIFF AUTOMATED (02/13/2024 11:13 PM CDT) Pathologist [facility] WBC 4.54 4.5 - 11.0 x10'3/uL 02/13/2024 11:33 PM CDT [facility] RBC 3.56(L) 4.70 - 6.10 x10'6/uL 02/13/2024 11:33 PM CDT [facility] HGB 11.2(L) 14.0 - 18.0 G/DL 02/13/2024 11:33 PM CDT [facility] HCT 34.8(L) 43.0 - 54.0 % 02/13/2024 11:33 PM CDT [facility] MCV 97.8(H) 80.0 - 94.0 FL 02/13/2024 11:33 PM CDT [facility] MCH 31.5(H) 27.0 - 31.0 PG 02/13/2024 11:33 PM CDT [facility] MCHC 32.2 32.0 - 36.0 G/DL 02/13/2024 11:33 PM CDT [facility] RDW 14.6(H) 11.5 - 14.5 % 02/13/2024 11:33 PM CDT [facility] PLT 288 130 - 400 x10'3/uL 02/13/2024 11:33 PM CDT [facility] MPV 8.2(L) 9.3 - 12.2 FL 02/13/2024 11:33 PM CDT [facility] DIFFERENTIAL TYPE AUTOMATED DIFFERENTIAL 02/13/2024 11:33 PM CDT [facility] NEUTROPHILS % 78.4 % 02/13/2024 11:33 PM CDT [facility] LYMPHOCYTES % 15.9 % 02/13/2024 11:33 PM CDT [facility] MONOCYTES % 5.3 % 02/13/2024 11:33 PM CDT [facility] EOSINOPHILS 0.0 % 02/13/2024 11:33 PM CDT [facility] BASOPHILS 0.0 % 02/13/2024 11:33 PM CDT [facility] IMMATURE GRANS % 0.4 % 02/13/20 11:33 PM CDT [facility] ABS. NEUTROPHILS 3.56 1.80 - 7.70 x10'3/uL 02/13/2024 11:33 PM CDT [facility] ABS. LYMPHOCYTES 0.72(L) 1.00 - 4.80 x10'3/uL 02/13/2024 11:33 PM CDT [facility] ABS. MONOCYTES 0.24(L) 0.30 - 0.82 x10'3/uL 02/13/2024 11:33 PM CDT [facility] ABS. EOSINOPHILS 0.00(L) 0.04 - 0.54 x10'3/uL 02/13/2024 11:33 PM CDT [facility] ABS. BASOPHILS 0.00(L) 0.01 - 0.08 x10'3/uL 02/13/2024 11:33 PM CDT [facility] ABS. IMMATURE GRANULOCYTES 0.02 0.00 - 0.49 x10'3/uL 02/13/2024 11:33 PM CDT [facility] 02/13/2024 11:1 3 PM CDT [facility] Final Result [facility] [address] [place] [address], * XR CHEST PORTABLE (02/13/2024 10:57 PM CDT) Anatomical Region Laterality Modality Chest Radiographic Annita ging 02/13/2024 11:0 8 PM CDT Impressions 02/13/2024 11:09 PM CDT IMPRESSION: No radiographic evidence of an acute cardiopulmonary abnormality. Referred By: ?? Interpreted By: Uday Mello MD, 02/13/2024 11:08 PM Narrative 02/13/2024 11:09 PM [address] [id number] EXAMINATION: XR CHEST PORTABLE, 02/13/2024 11:08 PM TECHNIQUE: Upright AP radiograph of the chest HISTORY: Dyspnea COMPARISON: Chest radiograph 04/12/2019 FINDINGS: Cerclage wires and fixation plates approximated median sternotomy. ??Potentially retained epicardial pacing wires. ??Surgical clips indicate history of coronary artery bypass grafting. ??Heart size is normal. ??Pulmonary vascular pattern appears within normal limits. ??Calcified granuloma within the right mid lung and calcified lymph nodes in right hilum. ??No pleural effusion. ??No pneumothorax. Procedure Note Uday Mello MD - 02/13/[address] [id number] EXAMINATION: XR CHEST PORTABLE, 02/13/2024 11:08 PM TECHNIQUE: Upright AP radiograph of the chest HISTORY: Dyspnea COMPARISON: Chest radiograph 04/12/2019 FINDINGS: Cerclage wires and fixation plates approximated mediansternotomy. Potentially retained epicardial pacing wires. Surgical clipsindicate history of coronary artery bypass grafting. Heart size isnormal. Pulmonary vascular pattern appears within normal limits.Calcified granuloma within the right mid lung and calcified lymph nodes inright hilum. No pleural effusion. No pneumothorax. IMPRESSION: No radiographic evidence of an acute cardiopulmonary abnormality. Referred By: Interpreted By: Uday Mello MD, 02/13/2024 11:08 PM [facility] Final Result documented in this encounter Visit Diagnoses Diagnosis Dyspnea- Primary Other dyspnea and respiratory abnormality Severe chronic obstructive pulmonary disease ([facility]/HCC) Chronic airway obstruction, not elsewhere classified COPD exacerbation ([facility]/HCC) Obstructive chronic bronchitis with exacerbation COPD exacerbation ([facility]) Obstructive chronic bronchitis with exacerbation documented in this encounter Admitting Diagnoses Diagnosis Dyspnea Other dyspnea and respiratory abnormality COPD exacerbation ([facility]) Obstructive chronic bronchitis with exacerbation documented in this encounter Administered Medications Inactive Administered Medications - up to 3 most recent administrations Medication Order MAR Action Action Date Dose Rate Site albuterol (PROVENTIL) (2.5 MG/3ML) 0.083% nebulizer solution 2.5 mg 2.5 mg, Nebulization, Every 6 hours, First dose on Fri02/14/24 at 1300, Until Discontinued Given 02/19/2024 8:35 AM CDT 2.5 mg Given 02/19/2024 2:58 AM CDT 2.5 mg Given 02/18/2024 7:26 PM CDT 2.5 mg albuterol (PROVENTIL) nebulizer solution 15 mg 15 mg, Nebulization, Once, 1 dose, On Fri02/13/24 at 2330 Given 02/14/2024 12:24 AM CDT 15 mg amLODIPine (NORVASC) tablet 10 mg 10 mg, Oral, Daily, First dose on Fri02/18/24 at 0900, Until Discontinued Given 02/19/2024 8:30 AM CDT 10 mg Given 02/18/2024 8:24 AM CDT 10 mg amLODIPine (NORVASC) tablet 5 mg 5 mg, Oral, Daily, First dose on Fri02/14/24 at 1100, Until Discontinued Given 02/17/2024 8:41 AM CDT 5 mg Given 02/16/2024 9:01 AM CDT 5 mg Given 02/15/2024 9:35 AM CDT 5 mg amLODIPine (NORVASC) tablet 5 mg 5 mg, Oral, Once, 1 dose, On Fri02/17/24 at 1745 Given 02/17/2024 5:35 PM CDT 5 mg atorvastatin (LIPITOR) tablet 40 mg 40 mg, Oral, Nightly at bedtime, First dose on Fri02/14/24 at 2100, Until Discontinued Given 02/18/2024 8:08 PM CDT 40 m g Given 02/17/2024 8:04 PM CDT 40 mg Given 02/16/2024 8:42 PM CDT 40 mg azithromycin (ZITHROMAX) 500 mg in sodium chloride 0.9 % 250 mL IVPB 500 mg, Intravenous, at 250 mL/hr, Every 24 hours, 2 doses, First dose on 02/14/24 at 2100, Last dose on 02/15/24 at 2100 New Bag 02/15/2024 8:53 PM CDT 500 mg 250 mL/h r New Bag 02/14/2024 9:44 PM CDT 500 mg 250 mL/hr azithromycin (ZITHROMAX) tablet 500 mg 500 mg, Oral, Once, 1 dose, On Fri02/13/24 at 2330 Given 02/13/2024 11:28 PM CDT 500 mg cefTRIAXone (ROCEPHIN) 1 g in sodium chloride 0.9 % 50 mL IVPB 1 g, Intravenous, at 100 mL/hr, Every 24 hours, First dose on 02/14/24 at 0930, Until Discontinued New Bag 02/18/2024 10:09 AM CDT 1 g 100 mL/hr New Bag 02/17/2024 8:47 AM CDT 1 g 100 mL/hr New 02/16/2024 10:38 AM CDT 1 g 100 mL/hr clopidogrel (PLAVIX) tablet 75 mg 75 mg, Oral, Daily, First dose on 02/14/24 at 1115, Until Discontinued Given 02/19/2024 8:29 AM CDT 75 mg Given 02/18/2024 8:24 AM CDT 75 mg Given 02/17/2024 8:41 AM CDT 75 mg fluticasone-salmeterol (ADVAIR HFA) 230-21 MCG/ACT inhaler 2 puff 2 puff, Inhalation, 2 times daily, First dose on 02/14/24 at 0915, Until Discontinued, Following administration, rinse mouth with water after use (do not swallow) to reduce risk of oral candidiasis. Given 02/19/2024 8:41 AM CDT 2 puffs Given 02/18/2024 7:26 PM CDT 2 puffs Given 02/18/2024 8:54 AM CDT 2 puffs folic acid (FOLVITE) injection 1 mg 1 mg, Intravenous, Daily, First dose on 02/14/24 at 1100, Until Discontinued, Give if unable to take orally. Discontinue when CIWA complete. folic acid (FOLVITE) tablet 1 mg 1 mg, Oral, Daily, First dose on 02/14/24 at 1100, Until Discontinued, Give with meal. May give IV if unable to take orally. Discontinue when CIWA complete. Given 02/19/2024 8:30 AM CDT 1 mg Given 02/18/2024 8:25 AM CDT 1 mg Given 02/17/2024 8:41 AM CDT 1 mg guaiFENesin ER (MUCINEX) 12 hr tablet 600 mg 600 mg, Oral, 2 times daily, First dose on 02/14/24 at 1115, Until Discontinued, Do not break, chew, or crush. Given 02/19/2024 8:30 AM CDT 600 mg Given 02/18/2024 8:07 PM CDT 600 mg Given 02/18/2024 8:24 AM CDT 600 mg heparin (porcine) injection 5,000 Units 5,000 Units, Subcutaneous, Every 12 hours scheduled (2 times per day), First dose on 02/14/24 at 0900, Until Discontinued Given 02/19/2024 8:30 AM CDT 5,000 Units Left Lower Abdomen Given 02/18/2024 8:08 PM CDT 5,000 Units R ight Lower Abdomen Given 02/18/2024 8:25 AM CDT 5,000 Units L eft Lower Abdomen iopamidol (ISOVUE-370) 76 % injection 80 mL 80 mL, Intravenous, IMG once as needed, Contrast, 1 dose, Starting on 02/14/24 at 0149, Until 02/14/24 at 0150 Given 02/14/2024 1:50 AM CDT 80 mLs Ri ght Arm ipratropium-albuterol (DUONEB) 0.5-2.5 (3) MG/3ML nebulizer solution 3 mL 3 mL, Nebulization, Once, 1 dose, On Fri02/13/24 at 2330 Given 02/14/2024 12:23 AM CDT 3 mLs ipratropium-albuterol (DUONEB) 0.5-2.5 (3) MG/3ML nebulizer solution 3 mL 3 mL, Nebulization, Every 6 hours, First dose on 02/14/24 at 0915, Until Discontinued Given 02/14/2024 8:55 AM CDT 3 mLs LORazepam (ATIVAN) injection 1-3 mg 1-3 mg, Intravenous, Every 1 hour PRN, Other, per CIWA algorithm, Starting on 02/14/24 at 1044, Until Gloria 02/19/24 at 1559, - (For CIWA score 8-11 --- Lorazepam 1 mg) - (For CIWA score 12-15 Lorazepam 2 mg) - (For CIWA score 16-20 Lorazepam 3 mg) Use oral lorazepam as first choice. Adjust dose following CIWA assessment algorithms. Hold lorazepam for excessive sedation (RR less than 8 or RASS -3 to -5). - If CIWA score is greater than 15 for 2 consecutive checks, discuss with providers about ICU transfer order. For IV use, further dilute with an equal volume of saline. Do not exceed a rate of 2 mg/min. LORazepam (ATIVAN) tablet 1-3 mg 1-3 mg, Oral, Every 1 hour PRN, Other, per CIWA algorithm, Starting on 02/14/24 at 1044, Until Gloria 02/19/24 at 1559, - (For CIWA score 8-11 --- Lorazepam 1 mg) - (For CIWA score 12-15 Lorazepam 2 mg) - (For CIWA score 16-20 Lorazepam 3 mg) Use oral lorazepam as first choice. Adjust dose following CIWA assessment algorithms. Hold lorazepam for excessive sedation (RR less than 8 or RASS -3 to -5). - If CIWA score is greater than 15 for 2 consecutive checks, discuss with providers about ICU transfer order. Given 02/14/2024 11:55 AM CDT 1 mg losartan (COZAAR) tablet 50 mg 50 mg, Oral, Daily, First dose on 02/14/24 at 1115, Until Discontinued Given 02/19/2024 8:29 AM CDT 50 mg Given 02/18/2024 8:24 AM CDT 50 mg Given 02/17/2024 8:41 AM CDT 50 mg jqutztxea-glzxohuc-aucopjbiuoo (MYL[place] MAXIMUM STRENGTH) 1624-8572-301 mg/30mL suspension 10 mL, Oral, Every 4 hours PRN, Indigestion, Heartburn, Starting on 02/14/24 at 0549, Until Gloria 02/19/24 at 1559, Shake Well Given 02/14/2024 5:49 PM CDT 10 mLs melatonin tablet 3 mg 3 mg, Oral, Nightly PRN, insomnia, Starting on 02/14/24 at 1927, Until Gloria 02/19/24 at 1559 Given 02/18/2024 8:07 PM CDT 3 mg Given 02/17/2024 8:04 PM CDT 3 mg Given 02/16/2024 8:43 PM CDT 3 mg methylPREDNISolone sodium succinate (SOLU-Medrol) injection 125 mg 125 mg, Intravenous, Once, 1 dose, On Fri02/13/24 at 2245, If ordered IV, administer into a vein over 3-15 minutes. Doses >= 2 mg/kg or 250mg should be given by infusion, unless the benefits of IV injection outweigh the risks (life-threatening shock) Given 02/13/2024 11:30 PM CDT 125 mg multi vitamin/minerals (THERA-M ENHANCED) tablet 1 tablet 1 tablet, Oral, Daily, First dose on 02/14/24 at 1100, Until Discontinued, Give with meal. Discontinue when CIWA complete. Given 02/19/2024 8:30 A M CDT 1 tablet Given 02/18/2024 8:24 AM CDT 1 tablet Given 02/17/2024 8:41 AM CDT 1 tablet perflutren lipid microsphere (DEFINITY) injection 2 mL 2 mL, Intravenous, IMG once as needed, Contrast, 1 dose, Starting on 02/14/24 at 1535, Until 02/14/24 at 1535, Administer over 30-60 seconds. Follow with 10 mL saline flush. Given 02/14/2024 3:35 PM CDT 2 mLs potassium chloride CR (K-TAB) tablet 40 mEq 40 mEq, Oral, Once, 1 dose, On 02/14/24 at 0115, Do not break, chew, or crush. Given 02/14/2024 1:26 AM CDT 40 mE q potassium chloride CR (K-TAB) tablet 40 mEq 40 mEq, Oral, Once, 1 dose, On Gloria 02/19/24 at 1100, Do not break, chew, or crush. Given 02/19/2024 10:53 AM CDT 40 m Eq predniSONE (DELTASONE) tablet 40 mg 40 mg, Oral, Daily, 5 doses, First dose on 02/14/24 at 0915, Last dose on Fri02/18/24 at 0900 Given 02/18/2024 8:24 AM CDT 40 mg Given 02/17/2024 8:41 AM CDT 40 mg Given 02/16/2024 9:01 AM CDT 40 mg thiamine (B-1) injection 100 mg 100 mg, Intravenous, Daily, First dose on 02/14/24 at 1100, Until Discontinued, Give if unable to take oral meds. Give with meals. IF diluting medication dilute with normal saline to volume of 10 mL IF diluting medication, dilute with normal saline to a volume of 10 mL. Administer over 5 minutes. tiotropium (SPIRIVA RESPIMAT) 2.5 MCG/ACT inhaler 2 puff 2 puff, Inhalation, Daily, First dose on 02/14/24 at 0915, Until Discontinued, Common canister Given 02/19/2024 8:40 AM CDT 2 puffs Given 02/18/2024 8:54 AM CDT 2 puffs Given 02/17/2024 7:34 AM CDT 2 puffs vitamin B-1 (THIAMINE) tablet 100 mg 100 mg, Oral, Daily, First dose on 02/14/24 at 1100, Until Discontinued, Give with meal. Given 02/19/2024 8:30 AM CDT 100 mg Given 02/18/2024 8:24 AM CDT 100 mg Given 02/17/2024 8:41 AM CDT 100 mg documented in this encounter Active and Recently Administered Medications Times are shown in CDT. Scheduled Medication Order 02/17/2024 02/18/2024 02/19/2024 albuterol (PROVENTIL) (2.5 MG/3ML) 0.083% nebulizer solution 2.5 mg 2.5 mg, Nebulization, Every 6 hours, First dose on 02/14/24 at 1300, Until Discontinued 0207 (Given - Provider: Naseem Campos, TAMMY)0734 (Given - Provider: Yessenia Palm, YARN WEIGHT AND STRENGTH TESTER)1335 (Given - Provider: Yessenia Palm, TAMMY)1918 (Given - Provider: Frankie Jonas, TAMMY) 0314 (Given - Provider: Naomi Aguirre, SOAKER MEAT)0854 (Given - Provider: Balaji Gongora, YARN WEIGHT AND STRENGTH TESTER)1534 (Given - Provider: Balaji Gongora, YARN WEIGHT AND STRENGTH TESTER)1926 (Given - Provider: Sylvia Roman) 0258 (Given - Provider: Simran Ivy, SOAKER MEAT)0835 (Given - Provider: Genoveva Bermudez, SOAKER MEAT)1500 (Canceled Entry - Provider: Automatic Discharge Provider - Comment: Automatically canceled at discontinue of medication order) amLODIPine (NORVASC) tablet 10 mg 10 mg, Oral, Daily, First dose on Fri02/18/24 at 0900, Until Discontinued 08 (Given - Provider: Mara Chen RN) 0830 (Given - Provider: Lisa Hess, Nurse Student) amLODIPine (NORVASC) tablet 5 mg (CANCELED) 5 mg, Oral, Daily, First dose on Fri02/14/24 at 1100, Until Discontinued 08 (Given - Provider: Lisa Hess, Nurse Student) amLODIPine (NORVASC) tablet 5 mg (COMPLETED) 5 mg, Oral, Once, 1 dose, On Fri02/17/24 at 1745 1735 (Given - Provider: Lisa Hess, Nurse Student) atorvastatin (LIPITOR) tablet 40 mg 40 mg, Oral, Nightly at bedtime, First dose on Fri02/14/24 at 2100, Until Discontinued 2003 (Given - Provider: Nicolle Saxena RN-) 2007 (Given - Provider: Fredis Bermudez RN) cefTRIAXone (ROCEPHIN) 1 g in sodium chloride 0.9 % 50 mL IVPB (CANCELED) 1 g, Intravenous, at 100 mL/hr, Every 24 hours, First dose on Fri02/14/24 at 0930, Until Discontinued 0847 (New Bag - Provider: Lisa Hess, Student)0920 (Infusion Stop Time - Provider: Mara Chen RN) 1009 (New Bag - Provider: Mara Chen, AUTUMN)1040 (Infusion Stop Time - Provider: Mara Chen, AUTUMN) clopidogrel (PLAVIX) tablet 75 mg 75 mg, Oral, Daily, First dose on Fri02/14/24 at 1115, Until Discontinued 0841 (Given - Provider: Nurse Huyen Lanza) 0824 (Given - Provider: Mara Chen RN) 08 (Given - Provider: Nurse Pool Student) fluticasone-salmeterol (ADVAIR HFA) 230-21 MCG/ACT inhaler 2 puff 2 puff, Inhalation, 2 times daily, First dose on 02/14/24 at 0915, Until Discontinued, Following administration, rinse mouth with water after use (do not swallow) to reduce risk of oral candidiasis. 0734 (Given - Provider: Yessenia Palm, YARN WEIGHT AND STRENGTH TESTER)191 (Given - Provider: Frankie Jonas, TAMMY) 0854 (Given - Provider: Balaji Gongora, TAMMY)1925 (Given - Provider: Sylvia Roman) 0841 (Given - Provider: Genoveva Bermudez, SOAKER MEAT) folic acid (FOLVITE) injection 1 mg(Linked Group 1) 1 mg, Intravenous, Daily, First dose on 02/14/24 at 1100, Until Discontinued, Give if unable to take orally. Discontinue when CIWA complete. 0841 (See Alternative - Provider: Nurse Huyen Lanza) 0825 (See Alternative - Provider: Mara Chen RN) 0830 (See Alternative - Provider: Lisa Hess, Nurse Matson) folic acid (FOLVITE) tablet 1 mg(Linked Group 1) 1 mg, Oral, Daily, First dose on 02/14/24 at 1100, Until Discontinued, Give with meal. May give IV if unable to take orally. Discontinue when CIWA complete. 0841 (Given - Provider: Lisa Hess, Nurse Matson) 0825 (Given - Provider: Mara Chen RN) 0830 (Given - Provider: Lisa Hess, Nurse Matson) guaiFENesin ER (MUCINEX) 12 hr tablet 600 mg 600 mg, Oral, 2 times daily, First dose on 02/14/24 at 1115, Until Discontinued, Do not break, chew, or crush. 0841 (Given - Provider: Lisa Hess, Nurse Matson)2003 (Given - Provider: Nicolle Saxena RN-LP) 08 (Given - Provider: Mara Chen RN)2006 (Given - Provider: Fredis Bermudez RN) 08 (Given - Provider: Nurse Pool Student) heparin (porcine) injection 5,000 Units(Linked Group 2) 5,000 Units, Subcutaneous, Every 12 hours scheduled (2 times per day), First dose on 02/14/24 at 0900, Until Discontinued 0842 (Given - Provider: Nurse Huyen Lanza)2003 (Given - Provider: Nicolle Saxena RN-DE) 08 (Given - Provider: Mara Chen RN)2007 (Given - Provider: Fredis Bermudez RN) 08 (Given - Provider: Nurse Huyen Lanza) losartan (COZAAR) tablet 50 mg 50 mg, Oral, Daily, First dose on 02/14/24 at 1115, Until Discontinued 08 (Given - Provider: Nurse Huyen Lanza) 08 (Given - Provider: Mara Chen RN) 08 (Given - Provider: Nurse Huyen Lanza) multi vitamin/minerals (THERA-M ENHANCED) tablet 1 tablet 1 tablet, Oral, Daily, First dose on 02/14/24 at 1100, Until Discontinued, Give with meal. Discontinue when CIWA complete. 0841 (Given - Provider: Nurse Huyen Lanza) 08 (Given - Provider: Mara Chen RN) 0830 (Given - Provider: Nurse Huyen Lanza) potassium chloride CR (K-TAB) tablet 40 mEq (COMPLETED) 40 mEq, Oral, Once, 1 dose, On Gloria 02/19/24 at 1100, Do not break, chew, or crush. 1053 (Given - Provider: Nurse Huyen Lanza) predniSONE (DELTASONE) tablet 40 mg (COMPLETED) 40 mg, Oral, Daily, 5 doses, First dose on 02/14/24 at 0915, Last dose on Fri02/18/24 at 0900 0841 (Given - Provider: Nurse Huyen Lanza) 0824 (Given - Provider: Mara Chen RN) thiamine (B-1) injection 100 mg(Linked Group 3) 100 mg, Intravenous, Daily, First dose on 02/14/24 at 1100, Until Discontinued, Give if unable to take oral meds. Give with meals. IF diluting medication dilute with normal saline to volume of 10 mL IF diluting medication, dilute with normal saline to a volume of 10 mL. Administer over 5 minutes. 0841 (See Alternative - Provider: Lisa Hess, Nurse Student) 0824 (See Alternative - Provider: Mara Chen RN) 0830 (See Alternative - Provider: Lisa Hess, Nurse Student) tiotropium (SPIRIVA RESPIMAT) 2.5 MCG/ACT inhaler 2 puff 2 puff, Inhalation, Daily, First dose on 02/14/24 at 0915, Until Discontinued, Common canister 0734 (Given - Provider: Yessenia Palm, YARN WEIGHT AND STRENGTH TESTER) 0854 (Given - Provider: Balaji Gongora, TAMMY) 0840 (Given - Provider: Genoveva Bermudez, MAXIMUS) vitamin B-1 (THIAMINE) tablet 100 mg(Linked Group 3) 100 mg, Oral, Daily, First dose on 02/14/24 at 1100, Until Discontinued, Give with meal. 0841 (Given - Provider: Lisa Hess, Nurse Student) 0824 (Given - Provider: Mara Chen RN) 0830 (Given - Provider: Lisa Hess, Nurse Student) PRN Medication Order 02/17/2024 02/18/2024 02/19/2024 acetaminophen (TYLENOL) tablet 650 mg 650 mg, Oral, Every 4 hours PRN, Mild pain (Scale 1 - 3), Fever, Headaches, Starting on 02/14/24 at 0549, Until Gloria 02/19/24 at 1559, Maximum dose of acetaminophen is 4000 mg from all sources in 24 hours. albuterol sulfate HFA 108 (90 Base) MCG/ACT inhaler 2 puff 2 puff, Inhalation, Every 6 hours PRN, Wheezing, Starting on 02/14/24 at 0817, Until Gloria 02/19/24 at 1559 LORazepam (ATIVAN) injection 1-3 mg(Linked Group 4) 1-3 mg, Intravenous, Every 1 hour PRN, Other, per CIWA algorithm, Starting on 02/14/24 at 1044, Until Gloria 02/19/24 at 1559, - (For CIWA score 8-11 --- Lorazepam 1 mg) - (For CIWA score 12-15 Lorazepam 2 mg) - (For CIWA score 16-20 Lorazepam 3 mg) Use oral lorazepam as first choice. Adjust dose following CIWA assessment algorithms. Hold lorazepam for excessive sedation (RR less than 8 or RASS -3 to -5). - If CIWA score is greater than 15 for 2 consecutive checks, discuss with providers about ICU transfer order. For IV use, further dilute with an equal volume of saline. Do not exceed a rate of 2 mg/min. LORazepam (ATIVAN) tablet 1-3 mg(Linked Group 4) 1-3 mg, Oral, Every 1 hour PRN, Other, per CIWA algorithm, Starting on 02/14/24 at 1044, Until Gloria 02/19/24 at 1559, - (For CIWA score 8-11 --- Lorazepam 1 mg) - (For CIWA score 12-15 Lorazepam 2 mg) - (For CIWA score 16-20 Lorazepam 3 mg) Use oral lorazepam as first choice. Adjust dose following CIWA assessment algorithms. Hold lorazepam for excessive sedation (RR less than 8 or RASS -3 to -5). - If CIWA score is greater than 15 for 2 consecutive checks, discuss with providers about ICU transfer order. hbfiwyqtd-ndpdruen-jkuajjix one (MYL[place] MAXIMUM STRENGTH) 0516-4406-904 mg/30mL suspension 10 mL, Oral, Every 4 hours PRN, Indigestion, Heartburn, Starting on 02/14/24 at 0549, Until Gloria 02/19/24 at 1559, Shake Well melatonin tablet 3 mg 3 mg, Oral, Nightly PRN, insomnia, Starting on 02/14/24 at 1927, Until Gloria 02/19/24 at 1559 2003 (Given - Provider: Nicolle Saxena RN-) 2006 (Given - Provider: Fredis Bermudez RN) ondansetron (ZOFRAN) injection 4 mg 4 mg, Intravenous, Every 8 hours PRN, Nausea, Vomiting, Starting on 02/14/24 at 0549, Until Gloria 02/19/24 at 1559, IV push over 2-5 minutes. polyethylene glycol (GLYCOLAX) packet 17 g 17 g, Oral, Daily as needed, Constipation, Starting on 02/14/24 at 0549, Until Gloria 02/19/24 at 1559, If both senna and polyethylene glycol are ordered, use 1st; if no response by next dosing interval, go to next option. Linked Groups Order Group 1: folic acid (FOLVITE) tablet 1 mgJump to med 1 mg, Oral, Daily, First dose on 02/14/24 at 1100, Until Discontinued, Give with meal. May give IV if unable to take orally. Discontinue when CIWA complete. Or folic acid (FOLVITE) injection 1 mgJump to med 1 mg, Intravenous, Daily, First dose on 02/14/24 at 1100, Until Discontinued, Give if unable to take orally. Discontinue when CIWA complete. Group 2: heparin (porcine) injection 5,000 UnitsJump to med 5,000 Units, Subcutaneous, Every 12 hours scheduled (2 times per day), First dose on 02/14/24 at 0900, Until Discontinued And Moderate Risk for VTE (COMPLETED) Group 3: vitamin B-1 (THIAMINE) tablet 100 mgJump to med 100 mg, Oral, Daily, First dose on 02/14/24 at 1100, Until Discontinued, Give with meal. Or thiamine (B-1) injection 100 mgJump to med 100 mg, Intravenous, Daily, First dose on 02/14/24 at 1100, Until Discontinued, Give if unable to take oral meds. Give with meals. IF diluting medication dilute with normal saline to volume of 10 mL IF diluting medication, dilute with normal saline to a volume of 10 mL. Administer over 5 minutes. Group 4: LORazepam (ATIVAN) tablet 1-3 mgJump to med 1-3 mg, Oral, Every 1 hour PRN, Other, per CIWA algorithm, Starting on 02/14/24 at 1044, Until Gloria 02/19/24 at 1559, - (For CIWA score 8-11 --- Lorazepam 1 mg) - (For CIWA score 12-15 Lorazepam 2 mg) - (For CIWA score 16-20 Lorazepam 3 mg) Use oral lorazepam as first choice. Adjust dose following CIWA assessment algorithms. Hold lorazepam for excessive sedation (RR less than 8 or RASS -3 to -5). - If CIWA score is greater than 15 for 2 consecutive checks, discuss with providers about ICU transfer order. Or LORazepam (ATIVAN) injection 1-3 mgJump to med 1-3 mg, Intravenous, Every 1 hour PRN, Other, per CIWA algorithm, Starting on 02/14/24 at 1044, Until Gloria 02/19/24 at 1559, - (For CIWA score 8-11 --- Lorazepam 1 mg) - (For CIWA score 12-15 Lorazepam 2 mg) - (For CIWA score 16- 20 Lorazepam 3 mg) Use oral lorazepam as first choice. Adjust dose following CIWA assessment algorithms. Hold lorazepam for excessive sedation (RR less than 8 or RASS -3 to -5). - If CIWA score is greater than 15 for 2 consecutive checks, discuss with providers about ICU transfer order. For IV use, further dilute with an equal volume of saline. Do not exceed a rate of 2 mg/min. documented in this encounter Additional Health Concerns Infection Onset Date Last Indicated Resolved Time COVID-19 Rule Out 02/13/2024 02/13/2024 02/13/2024 11:40 PM CDT COVID-19 Rule Out 02/16/2024 02/16/2024 02/16/2024 11:01 AM CDT Parainfluenza 02/16/2024 02/16/2024 02/26/2024 12: 32 AM CDT documented as of this encounter Care Teams Forestry Support Specialist Relationship Specialty Start Date End Date Hemant Connors MD PCP - General 04/09/16 02/15/24 Sabine Looney MD [address] [id number] PCP - General INTERNAL MEDICINE 02/16/24 documented as of this encounter
--- OUTSIDE RECORDS SUMMARY | 2024-06-06 03:21 | XMS_ITS | Clinical Summary ---
Author Organization [facility] Address [address] [place] [address]. [place], [place] [id number] [place] [id number] Care Team Providers Care Credit And Collections Representative Name Role Phone Sabine Looney MD Primary Care Provider Allergies Active Allergy Reactions Criticality Noted Date Comments Hydromorphone Itching 08/29/2018 Makes me itch every where Medications albuterol sulfate HFA 108 (90 Base) MCG/ACT inhaler Inhale 2 puffs into the lungs every 6 (six) hours as needed for Wheezing. 1 Inhaler 9 Active acetaminophen 500 MG tablet Take 1 tablet (500 mg total) by mouth every 6 (six) hours as needed for Pain. 30 tablet 9 Active amLODIPine (NORVASC) 10 MG tablet Take 1 tablet (10 mg total) by mouth daily. 30 tablet 2 4 Active atorvastatin (LIPITOR) 40 MG tablet Take 1 tablet (40 mg total) by mouth nightly at bedtime. 30 tablet 2 4 Active clopidogrel (PLAVIX) 75 MG tablet Take 1 tablet (75 mg total) by mouth daily. 30 tablet 2 4 Active losartan (COZAAR) 50 MG tablet Take 1 tablet (50 mg total) by mouth daily. 30 tablet 2 4 Active tiotropium (SPIRIVA RESPIMAT) 2.5 MCG/ACT inhaler (SPIRIVA RESPIMAT) Inhale 2 puffs into the lungs daily. Please provide assembled. 4 g 2 4 Active fluticasone-salme terol (ADVAIR HFA) 230-21 MCG/ACT inhalerIndication s:COPD exacerbation ([facility]) Inhale 2 puffs into the lungs 2 (two) times daily. 8 g 1 4 Active albuterol sulfate HFA 108 (90 Base) MCG/ACT inhaler Inhale 2 puffs into the lungs every 6 (six) hours as needed for Wheezing. 8 g 2 4 Active Active Problems Problem Noted Date Diagnosed Date Dyspnea 02/14/2024 Inflammatory bowel disease 02/14/2024 COPD exacerbation ([facility]) 02/14/2024 Vitamin B12 deficiency (non anemic) 01/05/2024 Anemia 01/05/2024 High serum creatinine 12/31/2023 Osteoarthritis of left hip 08/06/2023 Coronary arteriosclerosis 06/11/2023 Full thickness rotator cuff tear 11/12/2022 Severe chronic obstructive p ulmonary disease ([facility]) 10/03/2022 Cigarette smoker 10/03/2022 Prediabetes 09/27/2022 Iron deficiency anemia 09/27/2022 Hyperlipidemia 09/27/2022 Hemorrhoids 09/27/2022 Essential hypertension 09/27/2022 Vitamin D deficiency 05/13/2022 Coronary artery disease invo lving [place] heart without angina pectoris 03/15/2021 Overview (02/14/2024): Added automatically from request for surgery [id number] Crohn's disease ([facility]) 03/03/2020 Bronchitis 03/03/2020 Crohn's colitis ([facility]) 08/29/2018 Family History Medical History Relation Comments Hypertension Father Hypertension Mother Relation Status Comments Father Mother Social History Tobacco Use Types Packs/Day Years Used Date Smoking Tobacco: Every Day Cigarettes Smokeless Tobacco: Never Tobacco Cessation:Ready to Q uit: Not Asked; Counseling Given: Not Answered Alcohol Use Standard Drinks/Week Comments No 0 (1 standard drink = 0.6 oz pur e alcohol) [facility] Utilities Answer Date Recorded In the past 12 months has e [place], gas, oil, or water [employer] threatened to shut off services in your [...] any time in the past 12 m [facility], were you homeless or living in a nursing home (including now)? No 02/14/2024 Sex and Gender Information Value Date Recorded Sex Assigned at Not on file Legal Sex Male 6:41 PM CDT Gender Identity Not on file Sexual Orientation Not on file Last Filed Vital Signs Vital Sign Reading [...] Mass Index 22.76 02/13/2024 10:30 PM CDT Plan of Treatment Health Maintenance Due Date Last Done Comments Colorectal Cancer Screening Colonoscopy (10 Years) 1965 Annual Physical 1968 Pneumococcal Vaccine: Pediatrics (0 to 5 Years) and At-Risk Patients (6 to 64 Years) (1 of 2 - PCV) 10/28/1971 Hepatitis C 10/28/1983 DTaP, Tdap and Td Vaccines ( 1 - Tdap) 1984 Hepatitis B Vaccines (1 of 3 - 19+ 3-dose series) 1984 Zoster Vaccines (1 of 2) 10/28/2015 COVID-19 Vaccine (2023-2 5 season) 2024 05/09/2022, 12/25/2020, 12/04/2020 Influenza Adult (#1) 2024 05/06/2022, 04/06/2021 Meningococcal Vaccine Aged Out No janey cain eligible based on patient's age to complete this topic RSV Immunizations Under 20 Months Aged Out No longer eligible b ased on patient's age to complete this topic Goals Goal Patient Goal Type Associated Problems Recent Progress Patient-Stated? Author Patient will return to prior living situation and remain independent in ADLs upon discharge from hospital Lifestyle No Melvina Mena, RN Insurance [employer] Advance Directives * Full Code (Latest Code Status on File) Date Activated Date Inactivated Comments 02/14/2024 5:49 AM 02/19/2024 4:04 PM * Full Code Date Activated Date Inactivated Comments 08/29/2018 6:49 AM 08/31/2018 12:38 PM Care Teams Credit And Collections Representative Relationship Specialty Start Date End Date Sabine Looney MD [address] [id number] PCP - General INTERNAL MEDICINE 02/16/24
--- OUTSIDE RECORDS SUMMARY | 2024-06-06 03:21 | XMS_ITS | Encounter Summary ---
Author Organization [facility] Address [address] [place] [address]. [place], [place] [address] [place] [address] Care Team Providers Care Slip Presser Name Role Phone Hemant Lopez MD Primary Care Provider + [phone] Encounter Details Date Type Department Care Team (Late st Contact Info) Description 04/09/2016 Abstract [place] [address] , Generic Conversion, Social History Tobacco Use [...] Procedure Name Priority Date/Time Associated Diagnosis Comments VITAMIN B12 / FOLATE Routine 04/09/2016 12:[address] CLERK HEPATIC FUNCTION PANEL Routine 04/09/2016 12:[address] CLERK CBC, AUTO, NO DIFF Routine 04/09/2016 12 :[address] CLERK documented in this encounter Results * HEPATIC FUNCTION PANEL (04/09/2016 12:[address] CLERK) BILIRUBIN TOTAL S/P/B 0.2 0.2 - 1.2 mg/dL 04/09/2016 3:[address] CLERK [facility] ALKALINE PHOSPHATASE S/P/B 74 40 - 129 U/L 04/09/2016 3:[address] CLERK [facility] AST 17 0 - 40 U/L 04/09/2016 3:[address] CLERK [facility] TOTAL PROTEIN S/P/B 6.6 6.4 - 8.3 g/dL 04/09/2016 3:44 PM [facility] ALBUMIN S/P/B 4.0 3.5 - 5.2 g/dL 04/09/2016 3:44 PM [facility] ALT 15 0 - 41 U/L 04/09/2016 3:44 PM [facility] BILIRUBIN DIRECT S/P/B <0.20 0.0 - 0.3 mg/dL 04/09/2016 3:44 PM [facility] BILIRUBIN INDIRECT S/P/B NOT CALCULATED 0.0 - 0.9 mg/dL 04/09/2016 3:44 PM [facility] GLOBULIN 2.6 2.3 - 3.6 g/dL 04/09/2016 3:44 PM [facility] A/G RATIO 1.5 1.0 - 2.0 04/09/2016 3:44 PM [facility] 04/09/2016 12:[address] CLERK 04/09/2016 1:[address] CLERK us Generic Conversion Md [facility] Final R esult [facility] [address] [place] [address], * (ABNORMAL) CBC, AUTO, NO DIFF (04/09/2016 12:[address] CLERK) WBC 5.2 4.8 - 10.8 X10'3/uL 04/09/2016 3:[address] CLERK [facility] RBC 3.72(L) 4.70 - 6.10 X10'6/uL 04/09/2016 3:03 PM [facility] HGB 12.4(L) 14.0 - 18.0 g/dL 04/09/2016 3:03 PM [facility] HCT 36.7(L) 43.0 - 54.0 % 04/09/2016 3:03 PM [facility] MCV 98.7(H) 80.0 - 94.0 fL 04/09/2016 3:03 PM [facility] MCH 33.3(H) 27.0 - 31.0 pg 04/09/2016 3:03 PM [facility] MCHC 33.8 32.0 - 36.0 g/dL 04/09/2016 3:03 PM [facility] RDW 14.7(H) 11.5 - 14.5 % 04/09/2016 3:03 PM [facility] PLT 245 130 - 400 X10'3/uL 04/09/2016 3:03 PM [facility] MPV 8.3(L) 9.3 - 12.2 fL 04/09/2016 3:03 PM [facility] 04/09/2016 12:[address] CLERK 04/09/2016 1:[address] CLERK us Generic Conversion Md [facility] Final R esult [facility] [address] [place] [address], * (ABNORMAL) VITAMIN B12 / FOLATE (04/09/2016 12:[address] CLERK) VITAMIN B12 S/P/B 81(L) 211 - 946 pg/mL 04/09/2016 4:[address] CLERK [facility] FOLATE 12.2 7.3 - 26.1 ng/mL 04/09/2016 4:[address] CLERK [facility] 04/09/2016 12:[address] CLERK 04/09/2016 1:[address] CLERK us Generic Conversion Md [facility] Final R esult [facility] [address] [place] [id number], documented in this encounter Visit Diagnoses Diagnosis Crohn's disease of small intestine without complication (CMS/HCC HHS/HCC) Regional enteritis of small intestine documented in this encounter Care Teams Slip Presser Relationship Specialty Start Date End Date Hemant Lopez MD PCP - General 04/09/16 02/15/24 documented as of this encounter
--- OUTSIDE RECORDS SUMMARY | 2024-06-06 03:21 | XMS_ITS | Data Portability ---
Author Organization [place] [facility], Main Office Address [address] [place] [address] Care Team Providers Care Isobutylene Operator Chief Name Role Phone RORY LOONEY Primary Care Provider [phone] RORY LOONEY Referring Provider POOJA BERGERON Orthopedic Surgeon [phone] LATASHA ELLIOTT Benzene Worker PITER [employer]OKES Disassembler Assessment Encounter Date Assessment Date Assessment LastModified by Organization Details LastModified Time 08/06/2023 08/06/2023 57-year-old patient presents today with left hip pain that has been going on for many years but has gotten worse in the last 3 months. He denies any injury. He has pain in the groin with all movements. He cannot sleep at night. He stands the majority of his day for his job and is extremely sore and stiff at the end of the day. for treatment he has tried meloxicam, which is helping. Imaging: X-rays reviewed show no acute bony abnormality or fracture. He does have moderate degenerative osteoarthritic changes with minimal joint space in the left hip. Right hip shows hardware in place from a surgery in 1983. Physical exam: Slight antalgic gait. Pain with gentle logroll. Pain with gentle hip range of motion in all directions. Pain with straight leg raise. Sensation intact throughout. We will order a course of physical therapy to help stretch and strengthen his hip. We will also send him to the hospital for a cortisone injection into the left hip joint. He states that he has pain in his shoulder that he would like to come back for. He will call to make an appointment. We can check up on his hip at that time. [email or web address] Not available 08/07/2023 15:54:03 09/02/2023 09/02/2023 Assessment: Postnasal drip Nicotine smoke: 07/27 ppd 1981-present = 31.5 pack years Severe COPD with reversibility Crohn's disease on Humira/off budesonide Hypertension Plan: The following were reviewed and explained to the patient: lab data 05/01/20 (-) TB ifn-gamma Lab data 11/09/20 multiple environmental allergies Chest CT 12/01/20 RLL granuloma, fatty liver Chest CT 07/11/22 emphysema, RLL granuloma, spleen granuloma PFT 03/05/21 FEV1 1.29 L (48%), (+) BD response The [place] [employer] recommends annual screening for lung cancer with low-dose computed tomography (LDCT) for people aged 50 to 80 years old who smoke or formerly smoked and have a 20-year or greater pack-year history. Screening is no longer discontinued even when a person has not smoked for 15 years. Nicotine cessation counseling provided. Cutten for quitting include getting ready, getting support and encouragement, learning new skills and behaviors and being prepared to handle slips. Tips for dealing with cravings provided. Prevention of subsequent illnesses from nicotine addiction discussed. Comorbidities include but are not limited to hypertension, cerebrovascular disease, coronary heart disease, congestive heart failure, hyperlipidemia, COPD/asthma, peptic ulcer disease, esophagitis/gastri tis, and osteoporosis. Therapy options offered include: Quitting by total abstinence Receiving nicotine replacement therapy Undergoing hypnosis Filling a bupropion or varenicline prescription Enrolling in Quit For Life program Registering at www.quitline.[employer] Making a call to 6-725-TAMJ-NOW ( ). A strong, clear, personalized message was given to the patient to quit smoking. The patient was urged to set a quit date. We discussed patient's barriers to quitting and I will be of assistance when patient is ready to quit. I encouraged patient to inform friends and family of plans to quit with a request for support. I encouraged the patient to remove all cigarettes from the environment. We reviewed any previous quit attempts and lessons learned from them. I encouraged total abstinence from smoking and advised the patient that drinking alcohol and/or associating with other smokers are associated with failure or relapse. Patient can enroll in [facility]'s smoking cessation class through Lucy Hendrix RN at . Enrollment is free and classes are held every friday of the month from 1:30 pm to 2:30 pm at the conference room next to the cafeteria on the ground floor. Check gm stain and culture for green or purulent sputum. Continue albuterol HFA as needed. Continue Symbicort 160/4.5 mcg 2 puffs BID. Gargle after use. Continue Spiriva Respimat 2.5 mcg 2 puffs daily. Today, the patient was shown how to take these medications. The proper technique for delivering these medications was instructed. The patient expressed a clear understanding and demonstrated back how to use these medications. Without the proper technique, the patient will not reap the benefits of these medications as the contents will not reach the lower airways as intended to be. Pulmonary rehabilitation may be included in the management of patients with chronic obstructive pulmonary disease (COPD). For respiratory diseases different from COPD, there have been no formal statements regarding patient selection. The patient's FEV1 is 48%. The patient was enrolled in pulmonary rehabilitation but declined. General concepts of pulmonary rehabilitation were explained. Pulmonary rehabilitation consists of assessment, exercise, education, and emotional support. It covers the goals of rehabilitation, the techniques of breathing, the necessity of nicotine cessation, the strategies to deal with panic attacks, the rationale of pulmonary medications, and the importance of nutrition. As the patient learns to live with his pulmonary condition through exercise and education, the patient will regain confidence with his abilities and feel improvement in his overall quality of life. Adherence to therapy is advocated. Nonadherence may lead to treatment failure, further progression of the condition, and other complications. Hospitals admissions are often the result of individuals not taking prescription medications accurately. Alternatively, greater adherence to medication regimens have shown to lower rates of hospitalization and decrease total medical costs in patients with chronic medical conditions. Advocated influenza vaccination annually and pneumonia vaccination ODALYS. Encouraged patient to adjust caloric intake to maintain/achieve ideal body weight, emphasizing on fruits, vegetables, whole grains, and fat-free or low-fat products. These include lean meats, poultry, fish, beans, eggs, and nuts and foods that are low in saturated fats, trans-fats, cholesterol, salt (sodium), and glycemic index. Stressed the importance of regular exercise up to the patient's capacity limits. In this case, we recommend 20 min daily walking, 2 days a week of resistance training. Patient to monitor BP daily and bring records to PCP for further management. Follow-up: 1 week after PFT [email or web address] Not available 09/02/2023 14:35:27 04/29/2024 04/29/2024 12/26/2023: PSA 0.61 A1C 5.9 B12 <159 Urine micro alb 34.0 VITD <12.8 Cr 1.26H TG 154 H/H 11.4/34.8, MCV 100.0 [email or web address] Not available 04/29/2024 16:44:31 Plan of Treatment Reminders Order Date Submit Date Provider Last Modified By Organization Details Last Modified Time Details Appointments Any 15 2024 01:30P sAhutosh magana MD Not available Not available Not available Lab glycohemo globin, total, blood [address] (Lab), [address] [place], [address], 01/21/2024 08:28:53 microalbu min, urine [address] (Lab), [address] [place], [address], 01/21/2024 08:28:53 lipid panel, serum [address] (Lab), [address] [place], [address], 01/21/2024 08:28:53 CBC w/ auto diff [address] (Lab), [address] [place], [address], 01/21/2024 08:28:53 TSH, serum or plasma [address] (Lab), [address] [place], [address], 01/21/2024 08:28:53 CMP, serum or plasma [address] (Lab), [address] [place], [address], 01/21/2024 08:28:54 PSA, total, serum or plasma [address] (Lab), [address] [place], [address], 01/21/2024 08:28:54 vitamin D, 25-hydrox y, total, serum [address] (Lab), [address] [place], [address], 01/21/2024 08:28:54 vitamin B12 + folate, serum or blood [address] (Lab), [address] [place], [address], 01/21/2024 08:28:54 glycohemo globin, total, blood 2023 024 [facility] (Lab), [address] [place], [address], 12/26/2023 11:41:11 microalbu min, urine 2023 024 [facility] (Lab), [address] [place], [address], 12/26/2023 11:45:49 lipid panel, serum 2023 024 [facility] (Lab), [address] [place], [address], 12/26/2023 11:01:07 CBC w/ auto diff 2023 024 [facility] (Lab), [address] [place], [address], 12/26/2023 10:36:53 TSH, serum or plasma 2023 024 [facility] (Lab), [address] [place], [address], 12/26/2023 11:43:57 CMP, serum or plasma 2023 024 [facility] (Lab), [address] [place], [address], 12/26/2023 11:01:12 PSA, total, serum or plasma 2023 024 [facility] (Lab), [address] [place], [address], 12/26/2023 11:44:02 vitamin D, 25-hydrox y, total, serum [address] (Lab), [address] [place], [address], 12/25/2023 16:17:48 vitamin B12 + folate, serum or blood [email or web address] (Lab), [address] [place], [address], 12/31/2023 15:50:11 vitamin D, 25-hydrox y, total, serum [address] (Lab), [address] [place], [address], 04/29/2024 17:07:35 glycohemo globin, total, blood [address] (Lab), [address] [place], [address], 04/29/2024 17:07:33 microalbu min, urine 2023 024 [email or web address] [facility] (Lab), [address] [place], [address], 04/29/2024 17:07:33 lipid panel, serum 2023 024 [email or web address] [facility] (Lab), [address] [place], [address], 04/29/2024 17:07:34 CBC w/ auto diff 2023 024 [email or web address] [facility] (Lab), [address] [place], [address], 04/29/2024 17:07:34 TSH, serum or plasma [address] (Lab), [address] [place], [address], 04/29/2024 17:07:34 CMP, serum or plasma [address] (Lab), [address] [place], [address], 04/29/2024 17:07:35 Referral pulmonolo gist referral 2023 024 [email or web address] Piter Stokes MD, [address] [place], [address], 02/12/2024 08:43:54 orthopedi c surgeon referral 2023 024 [email or web address] Myron Lopez MD, [address] [facility], [place], [address], 07/24/2023 09:16:23 gastroent erologist referral 2023 024 [email or web address] Rambo Escobedo MD, [address] [place], [address], 02/12/2024 08:43:53 cardiolog ist referral 2023 024 [place], [address] [address], [address], [address], 02/12/2024 08:43:52 physical therapist referral - eval and treat 2023 024 [email or web address] [facility], [address] [place], [address], 08/06/2023 16:24:42 pulmonolo gist referral 2023 024 mariely Stokes MD, [address] [place], [address], 12/25/2023 16:18:34 gastroent erologist referral 2023 024 amena Escobedo MD, [address] [place], [address], 05/03/2024 10:25:01 cardiolog ist referral 2023 024 [place], [address] [address], [address], [address], 12/25/2023 16:18:35 pulmonolo gist referral 2023 024 amena Stokes MD, [address] [place], [address], 05/03/2024 10:24:12 gastroent erologist referral - Please call patient to schedule. 2023 024 KARAN Escobedo MD, [address] [place], [address], 05/03/2024 10:58:21 cardiolog ist referral 2023 024 [place], [address], [place] [address], [place], [address], 05/03/2024 10:24:11 Procedures injection , hip, fluoro guidance (PROC) - 4cc 1% Lidocaine & 40mg Depomedro lPrecerti fication Required? : N 2023 [email or web address] [facility] ([facility] Scheduling), [address] [place], [address], 08/06/2023 16:24:42 Surgeries None recorded. Imaging LDCT, chest, for lung cancer screening 2023 024 [facility] ([facility] Call Scheduling), [address] [place], [address], 07/29/2023 08:23:35 LDCT, chest, for lung cancer screening [email or web address] [place] [address] (One Call Scheduling), [address] [place], [address], 12/25/2023 16:18:35 Medication Orders meloxicam 15 mg tablet 2023 024 [facility], [address] [place] [address], [address], 12/25/2023 15:47:51 albuterol sulfate HFA 90 mcg/actua tion aerosol inhaler 2023 024 [facility], [address] [place] [address], [address], 09/02/2023 14:50:18 Symbicort 160 mcg-4.5 mcg/actua tion HFA aerosol inhaler 2023 024 [facility], [address] [place] [address], [address], 09/02/2023 14:50:17 Spiriva Respimat 2.5 mcg/actua tion solution for inhalatio n 2023 024 [facility], [address] [place] [address], [address], 09/02/2023 14:50:18 albuterol sulfate HFA 90 mcg/actua tion aerosol inhaler 2023 024 [facility], [address] [place] [address], [address], 12/25/2023 16:17:17 albuterol sulfate HFA 90 mcg/actua tion aerosol inhaler 2023 024 [facility], [address] [place] [address], [address], 04/29/2024 17:07:19 cyanocoba jailene (vit B-12) 1,000 mcg/mL injection solution 2023 024 [email or web address] [facility], [address] [place] [address], [address], 05/10/2024 09:47:15 Patient TargetsNo targets recorded. Patient Instructions Encounter Date Encounter Id Patient Instructions Last Modified By Organization Details Last Modified Time 09/02/2023 [id number] complete PFT w/ post bronchodilator spirometry* [email or web address] Not available 09/10/2023 09:25:30 Reason for Referral Benzene Worker Referral for Co ronary arteriosclerosis Referring Physician: Rory Looney, Internal Medicine, Encounter Date: 07/17/2023 Natural Resource Manager Referral for Crohn's disease Referring Physician: Rory Looney, Internal Medicine, Encounter Date: 07/17/2023 Disassembler Referral for C hronic obstructive pulmonary disease Referring Physician: Rory Looney Internal Medicine, Encounter Date: 07/17/2023 Orthopedic Surgeon Referral for Pain of left hip joint Referring Physician: Rory Looney Internal Medicine, Encounter Date: 07/17/2023 Physical Therapist Referral for Osteoarthritis of left hip joint eval and treat Referring Physician: Pooja Bergeron, Orthopedic Surgery, Encounter Date: 08/06/2023 Benzene Worker Referral for Co ronary arteriosclerosis Referring Physician: Rory Looney Internal Medicine, Encounter Date: 12/25/2023 Natural Resource Manager Referral for Crohn's disease Referring Physician: Rory Looney Internal Medicine, Encounter Date: 12/25/2023 Disassembler Referral for C hronic obstructive pulmonary disease Referring Physician: Rory Looney Internal Medicine, Encounter Date: 12/25/2023 Benzene Worker Referral for Co ronary arteriosclerosis Referring Physician: Rory Looney Internal Medicine, Encounter Date: 04/29/2024 Natural Resource Manager Referral for Crohn's disease Please call patient to schedule. Referring Physician: Rory Looney Internal Medicine, Encounter Date: 04/29/2024 Disassembler Referral for C hronic obstructive pulmonary disease Referring Physician: Rory Looney Internal Medicine, Encounter Date: 04/29/2024 Results Created Date Observation Date Name Description Value Unit Range Abnormal Flag Note LastModifiedBy Organization Detail LastModifiedTime 12/26/1912/26/2023 CBC/C OMPLE TE BLD COUNT W/DIF F white blood cells 7.0 x10'3 /uL 4.2-10 .8 Not Available [facility] (Lab) [address] [place], [address], 12/26/2023 10:36:53 12/26/19 24 12/26/2023 CBC/C OMPLE TE BLD COUNT W/DIF F red blood cells 3.48 x10'6 /uL 4.10-5 .80 low Not Available [facility] (Lab) [address] [place], [address], 12/26/2023 10:36:53 12/26/19 24 12/26/2023 CBC/C OMPLE TE BLD COUNT W/DIF F hemoglobin 11.4 g/dL 13.2-1 7.0 low Not Available [facility] (Lab) [address] [place], [address], 12/26/2023 10:36:53 12/26/19 24 12/26/2023 CBC/C OMPLE TE BLD COUNT W/DIF F hematocrit 34.8 % 39.3-5 0.0 low Not Available [facility] (Lab) [address] [facility] [place], [address], 12/26/2023 10:36:53 12/26/19 24 12/26/2023 CBC/C OMPLE TE BLD COUNT W/DIF F mean red cell volume 100.0 fL 80.0-9 7.0 high Not Available [facility] (Lab) [address] [place], [address], 12/26/2023 10:36:53 12/26/19 24 12/26/2023 CBC/C OMPLE TE BLD COUNT W/DIF F mean red cell hemoglobin 32.8 pg 27.0-3 3.0 Not Available [facility] (Lab) [address] [place], [address], 12/26/2023 10:36:53 12/26/19 24 12/26/2023 CBC/C OMPLE TE BLD COUNT W/DIF F mean RBC HGB concentratio n 32.8 g/dL 31.0-3 6.0 Not Available [facility] (Lab) [address] [place], [address], 12/26/2023 10:36:53 12/26/19 24 12/26/2023 CBC/C OMPLE TE BLD COUNT W/DIF F red cell distribution width 14.5 % 11.8-1 5.5 Not Available [facility] (Lab) [address] [place], [address], 12/26/2023 10:36:53 12/26/19 24 12/26/2023 CBC/C OMPLE TE BLD COUNT W/DIF F platelets 286 x10'3 /uL 150-40 0 Not Available [facility] (Lab) [address] [place], [address], 12/26/2023 10:36:53 12/26/19 24 12/26/2023 CBC/C OMPLE TE BLD COUNT W/DIF F mean platelet volume 8.3 fL 9.0-12 .4 low Not Available [facility] (Lab) [address] [place], [address], 12/26/2023 10:36:53 12/26/19 24 12/26/2023 CBC/C OMPLE TE BLD COUNT W/DIF F neutrophils 54.8 % 39.0-7 2.0 Not Available [facility] (Lab) [address] [place], [address], 12/26/2023 10:36:53 12/26/19 24 12/26/2023 CBC/C OMPLE TE BLD COUNT W/DIF F lymphocytes 33.9 % 16.0-4 7.0 Not Available [facility] (Lab) [address] [place], [address], 12/26/2023 10:36:53 12/26/19 24 12/26/2023 CBC/C OMPLE TE BLD COUNT W/DIF F monocytes 10.3 % 5.0-12 .0 Not Available [facility] (Lab) [address] [place], [address], 12/26/2023 10:36:53 12/26/19 24 12/26/2023 CBC/C OMPLE TE BLD COUNT W/DIF F eosinophils 0.4 % 1.0-7. 0 low Not Available [facility] (Lab) [address] [place], [address], 12/26/2023 10:36:53 12/26/19 24 12/26/2023 CBC/C OMPLE TE BLD COUNT W/DIF F basophils 0.3 % 0.0-2. 0 Not Available [facility] (Lab) [address] [place], [address], 12/26/2023 10:36:53 12/26/19 24 12/26/2023 CBC/C OMPLE TE BLD COUNT W/DIF F immature granulocytes 0.3 % 0.00-0 .50 Not Available [facility] (Lab) [address] [place], [address], 12/26/2023 10:36:53 12/26/19 24 12/26/2023 CBC/C OMPLE TE BLD COUNT W/DIF F neutrophils, absolute count 3.83 x10'3 /uL 1.5-8. 0 Not Available [facility] (Lab) [address] [place], [address], 12/26/2023 10:36:53 12/26/19 24 12/26/2023 CBC/C OMPLE TE BLD COUNT W/DIF F lymphocytes, absolute count 2.37 x10'3 /uL 1.07-3 .43 Not Available [facility] (Lab) [address] [place], [address], 12/26/2023 10:36:53 12/26/19 24 12/26/2023 CBC/C OMPLE TE BLD COUNT W/DIF F monocytes, absolute count 0.72 x10'3 /uL 0.29-0 .99 Not Available [facility] (Lab) [address] [place], [address], 12/26/2023 10:36:53 12/26/19 24 12/26/2023 CBC/C OMPLE TE BLD COUNT W/DIF F eosinophils, absolute count 0.03 x10'3 /uL 0.02-0 .53 Not Available [facility] (Lab) [address] [place], [address], 12/26/2023 10:36:53 12/26/19 24 12/26/2023 CBC/C OMPLE TE BLD COUNT W/DIF F basophils, absolute count 0.02 x10'3 /uL 0.01-0 .08 Not Available [facility] (Lab) [address] [place], [address], 12/26/2023 10:36:53 12/26/19 24 12/26/2023 CBC/C OMPLE TE BLD COUNT W/DIF F immature granulocytes ,absolute 0.02 x10'3 /uL 0.00-0 .05 Not Available [facility] (Lab) [address] [place], [address], 12/26/2023 10:36:53 12/26/19 24 12/26/2023 CBC/C OMPLE TE BLD COUNT W/DIF F nucleated red blood cells 0.0 % -0 Not Available [facility] (Lab) [address] [place], [address], 12/26/2023 10:36:53 12/26/19 24 12/26/2023 CBC/C OMPLE TE BLD COUNT W/DIF F NRBC# 0.00 x10'3 /uL Not Available [facility] (Lab) [address] [place], [address], 12/26/2023 10:36:53 12/26/19 24 12/26/2023 LIPID PANEL cholesterol 88 mg/dL 140-19 9 low [facility] NSUS RECOM MENDA TION FOR NAZ STERO L: ADULT CHILD LOW RISK: <200 <170 BORDE RLINE : <200- 239 ----- HIGH RISK: >240 >200 Not Available [facility] (Lab) [address] [place], [address], 12/26/2023 11:01:07 12/26/19 24 12/26/2023 LIPID PANEL triglyceride s 154 mg/dL 0-150 high [facility] NSUS REPOR T RECOM MENDA TION FOR TRIGL YCERI CHELI: ADULT CHILD LOW RISK: <150 ----- BODER LINE: 150-1 99 ----- HIGH RISK: >200 ----- Not Available [facility] (Lab) [address] [place], [address], 12/26/2023 11:01:07 12/26/19 24 12/26/2023 LIPID PANEL HDL cholesterol 51 mg/dL 40- Not Available [facility] (Lab) [address] [place], [address], 12/26/2023 11:01:07 12/26/19 24 12/26/2023 LIPID PANEL LDL cholesterol, calculated 6 mg/dL 0-130 [facility] NSUS REPOR T RECOM MENDA TIONS FOR LDL: ADULT CHILD LOW RISK <130 <110 (OPTI MAL LDL) <100 ----- LUDWIG RLINE : 130-1 59 ----- HIGH RISK: >160 >130 A TRIGL YCERI DE RESUL T >400 INVAL IDATE S THE CALCU LATIO N FOR LDL FRACT IONAT ION - THE LDL RESUL T WILL NOT BE REPOR MENDOZA. Not Available [facility] (Lab) [address] [place], [address], 12/26/2023 11:01:07 12/26/19 24 12/26/2023 COMP MET PANEL /LIVE R sodium 138 mmol/ L 137-14 5 Not Available [facility] (Lab) [address] [place], [address], 12/26/2023 11:01:11 12/26/19 24 12/26/2023 COMP MET PANEL /LIVE R potassium 3.7 mmol/ L 3.5-5. 1 Not Available [facility] (Lab) [address] [place], [address], 12/26/2023 11:01:11 12/26/19 24 12/26/2023 COMP MET PANEL /LIVE R chloride 109 mmol/ L 98-107 high Not Available [facility] (Lab) [address] [place], [address], 12/26/2023 11:01:11 12/26/19 24 12/26/2023 COMP MET PANEL /LIVE R carbon dioxide 23 mmol/ L 22-30 Not Available [facility] (Lab) [address] [facility] [place], [address], 12/26/2023 11:01:11 12/26/19 24 12/26/2023 COMP MET PANEL /LIVE R anion gap 9.7 mmol/ L 14-22 low Not Available [facility] (Lab) [address] [place], [address], 12/26/2023 11:01:11 12/26/19 24 12/26/2023 COMP MET PANEL /LIVE R glucose 78 mg/dL 70-99 Not Available [facility] (Lab) [address] [place], [address], 12/26/2023 11:01:11 12/26/19 24 12/26/2023 COMP MET PANEL /LIVE R BUN 18 mg/dL 8-19 Not Available [facility] (Lab) [address] [place], [address], 12/26/2023 11:01:11 12/26/19 24 12/26/2023 COMP MET PANEL /LIVE R creatinine 1.26 mg/dL 0.66-1 .25 high Not Available [facility] (Lab) [address] [place], [address], 12/26/2023 11:01:11 12/26/19 24 12/26/2023 COMP MET PANEL /LIVE R GFR >60 Refer ence Range : [place] ge GFR Healt hy Adult : >60 mL/mi n/1.7 3 m2 Chron ic Kidne y Disea se: 15-60 mL/mi n/1.7 3 m2 Kidne y Failu re: <15/m L/min /1.73 m2 www.n iddk. nih.g ov The MDRD study equat ion has not been valid ated in child jayme <18 years of age; pregn ant women ; the elder ly >85 years of age; or in some racia l or ethni c subgr oups, such as Hispa nics. Outsi de the valid ated jerrell eters , estim ated GFR is less accur ate, requi ring clini ed judgm ent on a case- by-ca se basis . Clini ed inter preta tion for other races and ages must be made by the clini rafael. The MDRD study equat ion has not been valid ated for the evalu ation of serum creat inine relat ed to nutri kelley l statu s or medic ation usage . For perso ns <18 years of age, a pedia tric GFR calcu lator is avail able on the [facility] websi te: https ://cody w.shiela mace.o darin/pr ofess ional s/kdo qi/gf r_cal culat or Not Available [facility] (Lab) [address] [place], [address], 12/26/2023 11:01:11 12/26/19 24 12/26/2023 COMP MET PANEL /LIVE R alkaline phosphatase 126 U/L 38-126 Not Available [facility] (Lab) [address] [place], [address], 12/26/2023 11:01:11 12/26/19 24 12/26/2023 COMP MET PANEL /LIVE R alanine aminotransfe rase 44 U/L 0-50 Not Available [facility] (Lab) [address] [place], [address], 12/26/2023 11:01:11 12/26/19 24 12/26/2023 COMP MET PANEL /LIVE R aspartate aminotransfe rase 30 U/L 15-46 Not Available [facility] (Lab) [address] [place], [address], 12/26/2023 11:01:11 12/26/19 24 12/26/2023 COMP MET PANEL /LIVE R bilirubin, total 0.40 mg/dL 0.20-1 .30 Not Available [facility] (Lab) [address] [place], [address], 12/26/2023 11:01:11 12/26/19 24 12/26/2023 COMP MET PANEL /LIVE R bilirubin, conjugated (direct) 0.00 mg/dL 0.00-0 .30 Not Available [facility] (Lab) [address] [place], [address], 12/26/2023 11:01:11 12/26/19 24 12/26/2023 COMP MET PANEL /LIVE R biliurubin,u ncong. (indirect) 0.20 mg/dL 0.00-1 .1 Not Available [facility] (Lab) [address] [place], [address], 12/26/2023 11:01:11 12/26/19 24 12/26/2023 COMP MET PANEL /LIVE R calcium 8.3 mg/dL 8.4-10 .2 low Not Available [facility] (Lab) [address] [place], [address], 12/26/2023 11:01:11 12/26/19 24 12/26/2023 COMP MET PANEL /LIVE R total protein 6.7 g/dL 6.3-8. 2 Not Available [facility] (Lab) [address] [place], [address], 12/26/2023 11:01:11 12/26/19 24 12/26/2023 COMP MET PANEL /LIVE R albumin 3.7 g/dL 3.4-5. 0 Not Available [facility] (Lab) [address] [place], [address], 12/26/2023 11:01:11 12/26/19 24 12/26/2023 COMP MET PANEL /LIVE R globulin 3.0 g/dL 2.6-4. 2 Not Available [facility] (Lab) [address] [place], [address], 12/26/2023 11:01:11 12/26/19 24 12/26/2023 COMP MET PANEL /LIVE R A/G ratio 1.2 ratio 1.0-2. 0 Not Available [facility] (Lab) [address] [place], [address], 12/26/2023 11:01:11 12/26/19 24 12/26/2023 VITAM IN D 25-HY DROXY [id number] <12.8 NG/mL 30-100 low Vitam in D Statu s: Defic ient: <20 ng/mL Insuf ficie nt: 20-29 ng/mL Suffi cient : 30-10 0 ng/mL Not Available [facility] (Lab) [address] [place], [address], 12/26/2023 11:23:11 12/26/19 24 12/26/2023 HEMOG LOBIN A1C HA1C 5.9 % 4.0-6. 0 Diabe cinthya Scree krystal Crite jimmie: <5.7% Consi stent with absen ce of diabe cinthya 5.7-6 .4% Consi stent with incre ased risk for diabe cinthya (pred iabet es) >OR=6 .5% Consi stent with diabe cinthya REFER ENCE: Diabe cinthya Care 2016, 39(Mccracken ppl.1 ):s13 -s22 Not Available [facility] (Lab) [address] [place], [address], 12/26/2023 11:41:10 08/02/12/26/2023 TSH W/REF TOO FT4 TSH with reflex free T4 1.870 uIU/m L 0.465- 4.680 Not Available [facility] (Lab) [address] [place], [address], 12/26/2023 11:43:57 12/26/19 24 12/26/2023 PSA SCREE N PSA medicare screen 0.61 NG/mL 0.00-4 .00 Not Available [facility] (Lab) [address] [place], [address], 12/26/2023 11:44:02 12/26/19 24 12/26/2023 MICRO ALBUM IN RANDO M URINE microalbumin , urine 34.0 mg/L 0.0-16 .6 high Not Available [facility] (Lab) [address] [place], [address], 12/26/2023 11:45:49 12/26/19 24 12/26/2023 VITAM IN B12 (MAINE JAILENE ) vb12 <159 pg/mL 239-93 1 low Not Available [facility] (Lab) [address] [place], [address], 12/26/2023 12:07:32 12/26/19 24 12/26/2023 FOLAT E, SERUM /PLAS MA folate 9.55 NG/mL 2.76-2 0.0 Not Available [facility] (Lab) [address] [place], [address], 12/26/2023 12:07:37 07/29/19 24 07/28/2023 LDCT, chest , for lung cance r oneliae krystal [facility] [address] [place] [address] Patien t Name: JOSÉ LUIS CHICAS Access ion #: [id number] Sex: M : 1965 5 Dictat ed By: Ute desai Solares Attend ing Physic max: MIKALA GARRETT Orderlevi ng Physic max: MIKALA GARRETT Exam Date: 2023 15:35 PM Exam Name: CT LOW DOSE CNCR SCREEN ING Admitt ing Diagno sis(es ): CT Chest withou t intrav enous contra st INDICA TION: cancer screen ing TECHNI QUE: Multid etecto r spiral CT of the chest was perfor med from the lung apices to the upper abdome n. Axial, saldaña l and sagitt al multip lanar reform ats were perfor med. Radiat ion Dose : 1. Chest: CTDI volume is mGy. Dose-l ength produc t is mGy*cm The dose indica tors for CT are the volume Comput ed Tomogr aphy (CT) Dose Index (CTDIv ol) and the Dose Length Produc t (DLP), and are measur ed in units of mGy and mGy-cm , respec tively . These indica tors are not patien t dose, but values genera mendoza from the CT scanne r acquis ition factor s. The report includ es radiat ion exposu re data for exposu res receiv ed during this examin ation. Compar franck: 023 Findin gs: Lower neck: Normal thyroi d. Lungs: No focal consol idatio n, pleura l effusi on or pneumo thorax . 1.2 cm calcif ied granul jesenia in the right lower lobe. Mild centri lobula r emphys wilfredo. Heart/ Vascul ar Struct ures: Post CABG. Lymph Nodes: No adenop athy. Calcif ied medias tinal lymph nodes. Pleura : No pleura l effusi on or signif icant pneumo thorax . Page 1 [facility] [address] [address] Patien t Name: JOSÉ LUIS CHICAS Access ion #: [id number] Sex: M : 1965 5 Dictat ed By: Ute desai Solares Attend ing Physic max: MIKALA Desai SHAYYRAI NWALA Orderi ng Physic max: MIKALA GARRETT Exam Date: 2023 15:35 PM Exam Name: CT LOW DOSE CNCR SCREEN ING Admitt ing Diagno sis(es ): Muscul oskele alicia: No acute osseou s abnorm ality. Median sterno igor. Soft tissue s: Normal . Upper abdome n: Calcif icatio ns in the spleen . IMPRES MAXWELL: No acute or suspic ious thorac ic findin g. Radiat ion optimi zation : All CT scans at this facili ty use at least one of these dose optimi zation techni ques: automa mendoza exposu re contro l mA and/or kV adjust ment per patien t size (inclu cheli target ed exams where dose is matche d to clinic al indica tion) or iterat luciano recons tructi on. Lung-R ADS Catego ry 1: Contin ue annual screen ing with LDCT Electr onical ly Signed by: Ute Solares at 2023 07:22: 20 AM Page 2 INTERFACE [facility] (Imaging) [address] [place], [address], 07/29/2023 08:23:35 07/29/19 24 07/28/2023 LDCT, chest , for lung cance r tracy [email or web address] No observ ation record ed. [email or web address] ([employer]) [address] [place], [address], 02/03/2024 11:52:28 07/29/19 24 07/09/2023 XR, hip + pelvi s, bilat eral No observ ation record ed. [email or web address] Not Available 2023 17:07:56 08/07/19 24 08/07/2023 XR, chest , 1 view No observ ation record ed. [email or web address] [place], [address], 02/03/2024 16:13:51 02/13/20 24 02/13/2024 XR, chest , 1 view No observ ation record ed. [email or web address] [facility] [address] [place], [address], 05/03/2024 15:57:28 04/02/20 24 04/01/2024 XR, chest , 1 view No observ ation record ed. [email or web address] [place], [address], 05/03/2024 15:57:43 05/11/20 24 05/11/2024 imagi ng/di agnos tic resul t No observ ation record ed. [facility] [address] [place], [address], 05/11/2024 21:47:00 Result Notes None recorded. Problems Name Problem SNOMED Code Status Onset Date Resolution Date Notes Provider Name and Address Organization Details Recorded Time Cobalamin deficienc y 756686002 Active 2021 Not Available [facility] 3 03:14:45 Inflammat ory bowel disease 45385550 Completed Not Available [facility] 3 00:45:36 Bronchiti s 99249539 Completed 201911/08/2020 Not Available [facility] 3 00:45:36 Crohn's disease 01685976 Active 2019 Not Available [facility] 3 03:14:45 Vitamin D deficienc y 31345453 Active 2021 Not Available [facility] 3 03:14:45 Hemorrhoi ds 54363656 Active 2022 Not Available [facility] 3 03:14:45 Prediabet es 275936654 Active 2022 Not Available [facility] 3 03:14:45 Iron deficienc y anemia 88964384 Active 2022 Not Available [facility] 3 03:14:45 Hyperlipi demia 95180362 Active 2022 Not Available [facility] 3 03:14:45 Essential hypertens ion 53913008 Active 2022 Not Available [facility] 3 03:14:45 Smoker 22644102 Active 2022 Not Available [facility] 3 03:14:45 Severe chronic obstructi ve pulmonary disease 807683241 Active 2022 Not Available [facility] 3 03:14:45 Full thickness rotator cuff tear 236456284 Active 2022 Not Available [facility] 3 03:14:45 Coronary arteriosc lerosis 89571236 Active 2023 Rory desai MD [address], [address], [place], [address] , [employer] [facility] 4 15:52:15 Serum vitamin B12 below reference range 870006836 Active 2023 Rory desai MD [address], [address], [place], [address] , [place] [facility] [employer] [facility] 4 16:17:05 Osteoarth ritis of left hip joint 75643717200 9108 Active 2023 Felicia sol, [place] [facility] [employer] [facility] 4 14:46:58 Pain of left hip joint 17997798917 9100 Active 2023 Rory desai MD [address], [address], [place], [address] , [employer] [facility] 4 18:33:20 Chronic obstructi ve pulmonary disease 17309449 Active 2023 Rory desai MD [address], [address], [place], [address] , [employer] [facility] 4 18:33:20 Cigarette smoker 94241099 Active 2023 Rory desai MD [address], [address], [place], [address] , [place] [facility] [employer] [facility] 4 18:33:20 Serum creatinin e above reference range 662115206 Active 2023 Felisha Uriostegui MA [place], [facility] 4 15:51:55 Vitamin B12 deficienc y (non anemic) 41386033 Active 2023 Felishajonathan Uriostegui MA [place], [facility] 4 14:38:52 Anemia 291488317 Active 2023 Felisha ELOISE Uriostegui [place], [facility] 4 14:39:13 Notes:Medical History: Rhini tis to multiple environmental allergens with postnasal drip IgE 99 IU/ml Eosinophils 30/uL Alpha-1 antitrypsin PIMM 125 mg% Nicotine dependence Severe COPD with reversibility, declined pulm rehab Granulomatous disease (chest, spleen) Hypertension EF 55% Prediabetes CAD ANTHONY Fatty liver Crohn's disease on Humira, off budesonide Hemorrhoids Anemia Vit B12 deficiency Vit D deficiency Thoracic DDD Procedure history: Right femur reduction and internal fixation 1983 CABG 2020 Occupational History: [employer] Problem Notes None recorded. Procedures Surgical History Date Name Laterality Status Provider Name and Address Organization Details Recorded Time revision of colostomy completed Not Available [facility] 07/24/2022 00:41:56 partial resection of colon completed Not Available [facility] 07/24/2022 00:41:56 open reduction of fracture of femur completed Not Available [facility] 07/24/2022 00:41:56 colostomy completed Not Available [facility] 0 07/24/2022 00:41:56 Colonoscopy completed Not Available [facility] 07/24/2022 00:41:56 Imaging Results Imaging Date Name Status LastModified by Organiz [facility] Details LastModified Time 07/28/2023 LDCT, chest, for lung cancer screening active INTERFACE [facility] (Imaging) [address] [place], [address], 07/29/2023 08:23:35 07/28/2023 LDCT, chest, for lung cancer screening completed [address] ([employer]) [address] [place], [address], 02/03/2024 11:52:28 07/09/2023 XR, hip + pelvis, bilateral completed [email or web address] Information not available 07/29/2023 17:07:56 08/07/2023 XR, chest, 1 view completed [email or web address] [facility] [address] [place], [address], 02/03/2024 16:13:51 02/13/2024 XR, chest, 1 view completed [email or web address] [facility] [address] [place], [address], 05/03/2024 15:57:28 04/01/2024 XR, chest, 1 view completed [email or web address] [facility] [address] [place], [address], 05/03/2024 15:57:43 05/11/2024 imaging/diagno stic result active [facility] [address] [place], [address], 05/11/2024 21:47:00 Procedure Notes None recorded. Medical Equipment None Reported. Allergies Allergen ID Allergen Name Allergen Category Reaction Reaction Severity Criticality Documentation Date Start Date Code Code System Note Provider Name and Address Organization Details Recorded Time 227 Dilaudid medicatio n itching Not available Not available 07/24/2022 06409 3 RxNorm Not Available [facility] 00:49:49 Medications Name Sig Start Date Stop Date Status Note LastModified by Organization Details LastModified Time losartan 50 mg tablet TAKE 1 TABLET BY MOUTH TWICE DAILY active Not Available Not Available No t Available cyclobenz aprine 10 mg tablet 12/24 completed Not Available Not Available Not Available furosemid e 40 mg tablet 06/15 completed Not Available Not Available Not Available atorvasta tin 40 mg tablet TAKE 1 TABLET BY MOUTH NIGHTLY AT BEDTIME active Not Available Not Available No t Available promethaz ine-DM 6.25 mg-15 mg/5 mL oral syrup TAKE 5 ML BY MOUTH THREE TIMES DAILY 05/06 completed Not Available Not Available Not Available acetamino phen 325 mg tablet 06/18 completed Not Available Not Available Not Available carvedilo l 6.25 mg tablet TAKE 1 TABLET BY MOUTH TWICE DAILY active Not Available Not Available No [...] MORE THEN 8 CAPSULES IN A DAY 11/12 completed Not Available Not Available Not Available azithromy álvaro 250 mg tablet TAKE 2 TABLETS BY MOUTH ON DAY 1, AND THEN TAKE 1 TABLET BY MOUTH ONCE A DAY ON DAY 2 THROUGH DAY 5 04/29 completed Not Available Not Available Not Available benzonata te 200 mg capsule Take 1 capsule 3 times a day by oral route as needed. active Not Available Not Available No t Available meloxicam 15 mg tablet Take 1 tablet every day by oral route as needed for 30 days. 12/24 completed Not Available Not Available Not Available bupivacai ne HCl 0.5 % (5 mg/mL) injection solution Take 8 mg by injectio n route. 10/11 completed Not Available Not Available Not Available prednison e 20 mg tablet TAKE 2 TABLETS BY MOUTH ONCE DAILY active Not Available Not Available No t Available promethaz ine 6.25 mg-codein e 10 mg/5 mL syrup Take 5 mL as needed by oral route at bedtime. active Not Available Not Available No t Available clopidogr el 75 mg tablet TAKE 1 TABLET BY MOUTH ONCE DAILY active Not Available Not Available No t Available amlodipin e 5 mg tablet TAKE 1 TABLET BY MOUTH ONCE DAILY 04/29 completed Not Available Not Available Not Available peg-elect rolyte solution 420 gram oral solution USE DIRECTED 02/05 completed Not Available Not Available Not Available aspirin 81 mg tablet,de layed release 08/04 completed Not Available Not Available Not Available Kenalog 10 mg/mL suspensio n for injection Take 20 mg by injectio n route. 11/12 completed [facility]: 0003-049 09-12 Not Available Not Available Not Available amlodipin e 10 mg tablet TAKE 1 TABLET BY MOUTH ONCE DAILY active Not Available Not Available No t Available cyanocoba jailene (vit B-12) 1,000 mcg/mL injection solution INJECT 1 ML SUBCUTAN EOUSLY ONCE EVERY WEEK FOR 4 WEEKS BRING TO OFFICE FOR ADMINIST RATION active Not Available Not Available No t Available ferrous sulfate 325 mg (65 mg iron) tablet TAKE 1 TABLET BY MOUTH ONCE DAILY 11/12 completed Not Available Not Available Not Available promethaz ine 25 mg tablet TAKE [...] completed Not Available Not Available Not Available levofloxa álvaro 500 mg tablet TAKE 1 TAB PER TUBE ONCE DAILY active Not Available Not Available No t Available methylpre dnisolone 4 mg tablets in a dose pack TAKE DIRECTED 12/24 completed Not Available Not Available Not Available albuterol sulfate HFA 90 mcg/actua tion aerosol inhaler Inhale 1 puff every 4 hours by inhalati on route as needed for 90 days. 2023 active Not Available Not Available Not Avai lable ferrous sulfate 325 mg (65 mg iron) tablet,de layed release TAKE 1 TABLET BY MOUTH ONCE DAILY 07/17 completed Not Available Not Available Not Available amoxicill in 875 mg-potass ium clavulana [...] Not Available rosuvasta tin 20 mg tablet TAKE 1 TABLET BY MOUTH ONCE DAILY active Not Available Not Available No t Available bupropion HCl XL 150 mg 24 hr tablet, extended release TAKE 1 TABLET BY MOUTH ONCE DAILY 11/12 completed Not Available Not Available Not Available melatonin 10/11 completed Not Available Not Available Not Available Pepto-Bis mol 11/08 completed Not Available Not Available Not Available Imodium A-D 11/08 completed Not Available Not Available Not Available Lomotil 11/08 completed Not Available Not Available Not Available Metamucil 09/15 completed Not Available Not Available Not Available Advair HFA 230 mcg-21 mcg/actua tion aerosol inhaler INHALE 2 PUFFS BY MOUTH TWICE DAILY active Not Available Not Available No t Available Symbicort 160 mcg-4.5 mcg/actua tion HFA aerosol inhaler INHALE 2 PUFFS BY MOUTH TWICE DAILY active Not Available Not Available No t Available oxycodone 10 mg tablet 05/04 completed Not Available Not Available Not Available Suprep Bowel Prep Kit 17.5 gram-3.13 gram-1.6 gram oral solution USE DIRECTED 08/24 completed Not Available Not Available Not Available ropivacai ne (PF) 5 mg/mL (0.5 %) injection solution Take 40 mg by injectio n route. 11/12 completed [facility] [address]-18 08-24 Not Available Not Available Not Available Spiriva Respimat 2.5 mcg/actua tion solution for inhalatio n INHALE 2 SPRAY(S) BY MOUTH ONCE DAILY active Not Available [...] IN THE ABDOMEN OR THIGH (ROTATE SITES) 04/29 completed Not Available Not Available Not Available Humira(CF ) Pen Crohn's-U lc Colitis-H id Sup Strt 80 mg/0.8 mL subcut kt Inject 160 mg by subcutan eous route in the morning. 11/12 completed Not Available Not Available Not Available Vitals Date Recorded Body height Body mass index (BMI) Body weight Body temperature Heart rate Systolic blood pressure Diastolic blood pressure Provider Name and Address Organization Details Last Updated DateTime 4 170.18 cm 22.2 kg/m2 52906.1 2 g 97.3 [degF] 96 /min 140 mm[Hg] 80 mm[Hg] Joanne Hassan [facility] [employer] 4 15:48:32 Date Recorded Body height Body mass index (BMI) Body weight Provider Name and Address Organization Details Last Updated DateTime 08/06/2023 170.18 cm 22.4 kg/m2 33285.71 g Jennifer Bardales [facility] [employer] 08/06/2023 14:18:26 Date Recorded Body height Body mass index (BMI) Body weight Body temperature Oxygen saturation Oxygen saturation in Arterial blood by Pulse oximetry Provider Name and Address Organization Details Last Updated DateTime 4 170.18 cm 21.8 kg/m2 14965.7 8 g 98.8 [degF] 97 % 97 % Reny Ross MA [facility] 4 14:30:49 Date Recorded Heart rate Respiratory rate Heart rate Systolic blood pressure Diastolic blood pressure Provider Name and Address Organization Details Last Updated DateTime 09/02/2023 99 /min 15 /min 99 /min 140 mm[Hg] 90 mm[Hg] Piter Stokes MD [address] [facility] [address], [place], [address], [facility] 14:59:25 Date Recorded Body height Body mass index (BMI) Body weight Body temperature Heart rate Oxygen saturation Oxygen saturation in Arterial blood by Pulse oximetry Systolic blood pressure Diastolic blood pressure Provider Name and Address Organization Details Last Updated DateTime 4 170.18 cm 22.1 kg/m2 14216.5 2 g 98.3 [degF] 105 /min 96 % 96 % 142 mm[Hg] 88 mm[Hg] Reny Ross [place] [facility] 4 15:47:04 Date Recorded Body height Body mass index (BMI) Body weight Body temperature Heart rate Systolic blood pressure Diastolic blood pressure Provider Name and Address Organization Details Last Updated DateTime 4 170.18 cm 21.5 kg/m2 31067.1 5 g 97.9 [degF] 84 /min 136 mm[Hg] 80 mm[Hg] JUAN Noble [place] [facility] 4 16:26:44 Social History Question Answer Notes LastModified by Organization Details LastModified Time Tobacco Smoking Status Current Some Day Smoker Not Available [facility] 07/24/2022 00:41:11 Do You Have An Advance Directive? No MIGRATION.[id number] [id number] Information not available 07/24/2022 What Is Your Level Of Alcohol Consumption? Occasional MIGRATION.0301 [id number] Information not available 07/24/2022 What Is Your Level Of Caffeine Consumption? Occasional MIGRATION.0301 [id number] Information not available 07/24/2022 How Much Tobacco Do You Chew? None MIGRATION.0301 [id number] Information not available 07/24/2022 In The 14 Days Before Symptom Onset, Have You Had Close Contact With A Laboratory-conf irmed COVID-19 While That Case Was Ill? No MIGRATION.0301 [id number] Information not available 07/24/2022 In The 14 Days Before Symptom Onset, Have You Had Close Contact With A Person Who Is Under Investigation For COVID-19 While That Person Was Ill? No MIGRATION.0301 [id number] Information not available 07/24/2022 Are You Currently Employed? Yes Information not available 09/02/2023 What Type Of Diet Are You Following? REGULAR MIGRATION.0301 [id number] Information not available 07/24/2022 Which Illicit Or Recreational Drugs Have You Used? Cocaine, Cannabis No Longer Cocaine Information not available 09/02/2023 Do You Or Have You Ever Used E-cigarettes Or Vape? Never Used Electronic Cigarettes MIGRATION.0301 [id number] Information not available 07/24/2022 What Is The Highest Grade Or Level Of School You Have Completed Or The Highest Degree You Have Received? [id number] MIGRATION.0301 [id number] Information not available 07/24/2022 Do You Have An Electrostatic Air Filter? 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 No MIGRATION.0301 [id number] Information not available 07/24/2022 Are There Any Guns Present In Your Home? No MIGRATION.0301 [id number] Information not available 07/24/2022 Do You Have A Humidifier? No Information not available 10/03/2022 Do You Use Insect Repellent Routinely? No MIGRATION.0301 [id number] Information not available 07/24/2022 Where Do You Live? [facility] MIGRATION.0301 [id number] Information not available 07/24/2022 Do You Have A Medical Power Of Drywall Sprayer? No MIGRATION.0301 [id number] Information not available 07/24/2022 Do You Have Moisture Problems In Your Home? No Information not available 10/03/2022 What Was The Date Of Your Most Recent Tobacco Screening? 12/25/2023 Information not available 12/25/2023 Do You Have Any Pets? Yes MIGRATION.0301 [id number] Information not available 07/24/2022 What Is Your Relationship Status? Information not available 09/02/2023 Do You Use Your Seat Belt Or Car Seat Routinely? Yes MIGRATION.0301 [id number] Information not available 07/24/2022 Do You Have Smoke And Carbon Monoxide Detectors In Your Home? Yes MIGRATION.0301 [id number] Information not available 07/24/2022 At What Age Did You Start Smoking Tobacco? 17 MIGRATION.0301 [id number] Information not available 07/24/2022 Are You Passively Exposed To Smoke? Yes MIGRATION.0301 137454 Information not available 07/24/2022 Do You Or Have You Ever Used Smokeless Tobacco? Never Used Smokeless Tobacco MIGRATION.0301 [id number] Information not available 07/24/2022 Are There Any Smokers In Your House? No MIGRATION.0301 880096 Information not available 07/24/2022 How Much Tobacco Do You Smoke? 1 PPW Smokes 1 Cigarette Every Other Day Information not available 09/02/2023 Do You Feel Stressed (tense, Restless, Nervous, Or Anxious, Or Unable To Sleep At Night)? [id number] MIGRATION.0301 [id number] Information not available 07/24/2022 Do You Use Any Illicit Or Recreational Drugs? Yes Cannabis Information not available 09/02/2023 Do You Use Sunscreen Routinely? No MIGRATION.0301 868395 Information not available 07/24/2022 How Many Years Have You Smoked Tobacco? 30 MIGRATION.030 [id number] Information not available 07/24/2022 Have You Recently Traveled Abroad? No MIGRATION.030 [id number] Information not available 07/24/2022 Do You Or Have You Ever Used Any Other Forms Of Tobacco Or Nicotine? No [email or web address] Information not available 07/17/2023 Sex: Unknown Functional Status Question Answer Note LastModified by [employer] ion Details LastModified Time What is your exercise level? Moderate [id number] Information not available 07/24/2022 Mental Status None recorded. Family History Relationship Description Onset Age of this Age Resolved Age Notes LastModified by Organization Details LastModified Time Father Kidney disease [id number].564 [id number] Not available 07/24/2022 00:42:01 Father Hypertensive disorder MIGRATION.895 [id number] Not available 07/24/2022 00:42:01 Father Malignant neoplasm of brain MIGRATION.286 [id number] Not available 07/24/2022 00:42:01 Mother Hypertensive disorder [id number] Not available 07/24/2022 00:42:01 Mother Diabetes mellitus [id number] [id number] Not available 07/24/2022 00:42:01 Sister Hypertensive disorder MIGRATION.[id number] Not available 07/24/2022 00:42:01 Sister Diabetes mellitus MIGRATION.451 [id number] Not available 07/24/2022 00:42:01 Brother Hypertensive disorder MIGRATION.149 [id number] Not available 07/24/2022 00:42:01 Brother Diabetes mellitus [id number] Not available 07/24/2022 00:42:01 Medical History Condition Response BLINDNESS N NERVE DISEASE N RHEUMATIC FEVER N BLADDER PROBLEMS N KIDNEY STONES N OTHER # 1 N POLIO N LUNG DISEASE/DISORDER N RADIATION / CHEMOTHERAPY N COPD Y Other # 2 N BLOOD DISEASES N SURGERY N EAR OR HEARING PROBLEMS N MUMPS N BOWEL PROBLEMS Y DEPRESSION (INCLUDING POST ) N STROKE/TIA N ULCERS N BENIGN PROSTATIC HYPERPLASIA N MEASLES N MYOCARDIAL INFARCTION N OBESITY N GERD/NAUSEA N ANEURYSM N URINARY/BLADDER/KIDNEY PROBLEMS N INPATIENT PSYCH CARE N CORONARY ARTERY DISEASE (CAD) N ADDICTION CONCERNS N Impotence N ENDOMETRIOSIS [...] HAVE YOU BEEN HOSPITALIZED OR SEEN IN [facility] IN THE PAST YEAR ? Y ATHEROSCLEROSIS [...] N PULMONARY EMBOLISM N AUTOIMMUNE DISEASE N Immunizations Vaccine Type Date Status Note Provider Nam e and Address Organization Details Recorded Time COVID-19, mRNA, LNP-S, bivalent, PF, 30 mcg/0.3 mL dose 05/09/2022 completed Jg Echeverria LPN null, [facility] 11/26/2023 13:53:30 COVID-19, mRNA, LNP-S, PF, 30 mcg/0.3 mL dose 12/25/2020 completed Jg Echeverria LPN null, [facility] 11/26/2023 13:53:30 COVID-19, mRNA, LNP-S, PF, 30 mcg/0.3 mL dose 12/04/2020 completed JEROD Melgar, [place] - [facility] 11/26/2023 13:53:30 Influenza, split virus, quadrivalent, PF 04/06/2021 completed Not Available [facility] 3 04:37:28 Influenza, split virus, quadrivalent, PF 05/06/2022 completed Not Available [facility] 3 04:37:28 Past Encounters Encounter ID Performer Location Encounter Start Date Encounter Closed Date Diagnosis/Indication Diagnosis SNOMED-CT Code Diagnosis ICD10 Code Diagnosis Note [id number] [facility] [address] [place], [place] [address]., [address] [address] 08/01/2020 00:00:00 08/01/2020 16:37:44 [id number] _ATHENA_M IGRATION_ DEFAULT_1 _1 , 09/20/2020 00:00:00 09/20/2020 15:25:02 [id number] [facility] [address], [address] [address] 11/03/2020 00:00:00 11/03/2020 17:00:30 [id number] [facility] [address] [address] 11/09/2020 00:00:00 11/09/2020 09:53:13 [id number] [facility] [address] [address] 01/01/2021 00:00:00 01/01/2021 22:08:04 [id number] [facility] [address] [address] 02/05/2021 00:00:00 02/05/2021 20:36:33 [id number] [facility] [address] [address] 03/05/2021 00:00:00 03/05/2021 17:43:24 [id number] [facility] [address], [address] [address] 03/05/2021 00:00:00 03/05/2021 15:11:04 [id number] [facility] [address] [address] 03/16/2021 00:00:00 03/16/2021 15:46:45 [id number] [facility] [address] [facility] 15 [place] [address] 04/06/2021 00:00:00 04/06/2021 11:56:13 [id number] [facility] [address] [address] 05/04/2021 00:00:00 05/04/2021 14:43:21 [id number] [facility] [address] [address] 06/15/2021 00:00:00 06/15/2021 17:13:13 [id number] [facility] Pulmonolo [facility] [address] [place] [address] 06/18/2021 00:00:00 10/12/2021 15:07:07 [id number] [facility] [place] [address] [place] [address] 07/11/2021 00:00:00 07/11/2021 15:09:46 [id number] [facility] Pulmonolo [facility] [address] [place] [address] 11/14/2021 00:00:00 11/14/2021 10:20:15 [id number] [facility] [address] [address] 05/06/2022 00:00:00 05/06/2022 16:43:34 [id number] [facility] [place] [address] [place] [address] 06/18/2022 00:00:00 06/26/2022 16:48:12 [id number] [facility] [address] [facility] [address] [place] [address] 07/08/2022 00:00:00 07/08/2022 15:00:44 [id number] Kim Rodrigues, INSPECTOR GOVERNMENT [employer]ERTY-C [facility] Internal Med [facility] 15 [address] [facility] [address] [place] [address] 09/30/2022 13:52:54 09/30/2022 14:19:12 Chronic obstructive pulmonary disease 99520230 J44.9 On Bevespi, prn albuterol He needs to be taking his Bevespi daily, reminded him to do soFollowin g pulm- Dr. Stokes, we were able to get him an appt scheduled for next week History of coronary artery bypass grafting 962981813 Z95.1 on plavix, ASAfollows [facility] Elliott[facility] [address] [facility] Curry at [facility] Crohn's disease 54485539 K50.90 Following GI- Dr. Escobedo Hemorrhoids 72150140 K64 .9 using Anusol prn Nicotine dependence 5629 4008 F17.200 3 minutes spent with patient discussing risks, cessation options. Patient encouraged to quit. Continue wellbutrin get LDCT- he has order call office if any change in mood or behavior Prediabetes 667912542 R7 3.03 continue diet/exerc ise efforts Vitamin D deficiency 347 49002 E55.9 on supplement Cobalamin deficiency 190 446611 E53.8 on b12 injections monthly Iron defic iency anemia 64090940 D50.9 on PO iron Hyperlipidemia 53778994 E78.5 on rosuvastat in Feeling irritable 673542 07 R45.4 on wellbutrin , he is aware of side effects, risks, benefitsca ll office if any change in mood or behaviorhe declines psychiatry referral and/or counseling referral today Normal weight 11476874 Z 68.23 recommend healthy, well balanced mealsfocus on lean meats, fresh vegetables , fresh fruits, whole grainsredu ce fast/proce ssed foods or eating out to no more than 1-2 times per weekaim to get 30 min of exercise most days of the week- walking is a great choice Slowing of urinary stream 09179629 R39.12 get appt with urology- has been referred Essential hypertension 11125296 I10 cardiology is working him up for renal artery stenosishe has been keeping home BP log per Dr. Benavides another appt next week with cardiology ER precaution s discussed Strongly recommend he work to remember to take his blood pressure medication every day, especially considerin g his history of CABG Recommend he set an alarm on his phone to help him remember Pain of ri ght shoulder joint 9973653205 5055913 M25.511 Get another appointmen t with Ortho, he is wanting another round of injections [id number] Piter Stokes MD [facility] Pulmonolo gy [address] [address] 10/03/2022 15:20:10 10/04/2022 08:34:40 Smoker 08538186 F17.218 F17.219 Z87.891 Severe chr onic obstructive pulmonary disease 922362288 J44.9 [id number] RHETT Manley [facility] [place] [address] [place] [address] 10/22/2022 15:24:22 10/22/2022 16:03:44 Bilateral shoulder joint pain 3776712654 8375315 M25.511 M25.512 Pain of ri ght shoulder joint 6519678991 5838902 M25.511 [id number] Ar Dhillon MD [facility] [place] [address] [place] [address] 11/12/2022 11:32:52 11/12/2022 12:13:27 Pain of right shoulder joint 9324499380 6917187 M25.511 Full thick ness rotator cuff tear 773104032 M75.121 patient has had some chronic issues with both shoulders he has failed conservati ve treatment for the right shoulder and the MRI scan confirms a tear of the supraspina tus and a probable somewhat chronic tear of the infraspina tus. Patient is a smoker and thus needs to have 30 days of no smoking with a negative nicotine test prior to surgery for his rotator cuff. Instructed him to stop smoking at this point I will have him follow-up in [address] Lopez to discuss repair of the rotator cuff as a next step in the treatment as he has failed conservati ve interventi on and his age the long-term studies which show less likely to develop rotator cuff arthritis and shoulder function at 10 and 20 years is better after repair of the cuff for full-thick ness tears in patients in their 40s and 50s [id number] Kim Rodrigues, INSPECTOR [employer]-C [facility] [address] [facility], [address] [place] [address] 01/24/2023 15:14:08 01/24/2023 15:40:48 Chronic obstructive pulmonary disease 30764030 J44.9 On Bevespi, prn albuterol He needs to be taking his Bevespi daily, reminded him to do soFollowin g pulm- Dr. Stokes History of coronary artery bypass grafting 303388926 Z95.1 on plavix, ASAfollows [facility]- Dr. Elliott- [facility] [address] [facility] Dr. Curry at [facility] Crohn's disease 38047327 K50.90 Following GI- Dr. Escobedo Hemorrhoids 76130595 K64 .9 using Anusol prn Nicotine dependence 5629 4008 F17.200 3 minutes spent with patient discussing risks, cessation options. Patient encouraged to quit. Continue wellbutrin call office if any change in mood or behavior Prediabetes 188414797 R7 3.03 continue diet/exerc ise efforts Vitamin D deficiency 347 39207 E55.9 on supplement Cobalamin deficiency 190 663301 E53.8 on b12 injections monthly Iron defic iency anemia 10635106 D50.9 on PO iron Hyperlipidemia 76343038 E78.5 on rosuvastat in Feeling irritable 206042 07 R45.4 on wellbutrin , he is aware of side effects, risks, benefitsca ll office if any change in mood or behaviorhe declines psychiatry referral and/or counseling referral today Normal weight 42746998 Z 68.23 recommend healthy, well balanced mealsfocus on lean meats, fresh vegetables , fresh fruits, whole grainsredu ce fast/proce ssed foods or eating out to no more than 1-2 times per weekaim to get 30 min of exercise most days of the week- walking is a great choice Slowing of urinary stream 84170884 R39.12 get appt with urology- has been referred he decided not to go as his symptoms improved Essential hypertension 15257482 I10 cardiology is working him up for renal artery stenosishe has been keeping home BP log per Dr. Guevara precaution s discussed Strongly recommend he work to remember to take his blood pressure medication every day, especially considerin g his history of CABGRecomm end he set an alarm on his phone to help him remember He will return in 1 week for BP check Pain of ri ght shoulder joint 1845372796 0865104 M25.511 following ortho Postviral cough 73477908 4 B94.8 start medrol dose packcall office if no better after meds [id number] Rory desai MD [facility] Internal Med [place] [address] [facility], [address] [place] [address] 07/17/2023 15:39:55 07/17/2023 16:20:20 Screening - NAD 620127734 Z13.9 C-scope: 11/2020: Dr Escobedo as per prior PCP note Get yearly flu shot, get tdap if not doneGet COVID 19 vaccine and its boostersGe t shingrix vaccine RTC in 3 months, do labs, ER if worse, he did verbalize his understand ing of the above Coronary arteriosclerosis 98379113 I25.10 S/p CABGOn ASANot on plavixSee cardiology Crohn's disease 35149885 K50.[address] Escobedo Hemorrhoids 50221069 K64 .9 Has taken anusol in the past Prediabetes 356825330 R7 3.03 Get labs Hyperlipidemia 47363713 E78.5 On rosuvastat in 20mg dailyGet labs Essential hypertension 08766277 I10 On amlodipine 5mg dailyGet labsSees Dr Elliott Chronic ob structive pulmonary disease 94499464 J44.9 On albuterolO n spirivaOn symbicortS ees Dr Stokes Vitamin D deficiency 347 80135 E55.9 Cigarette smoker 7574476 7 F17.210 LDCT 07/11/[address] Senavised to quit!US AAA at age 65 years Pain of le ft hip joint 1543986189 85792 M25.552 Serum barry min B12 below reference range 995791340 R79.89 Screening for malignant neoplasm of prostate 935967585 Z12.5 [id number] Pooja Bergeron NP [facility] [place] [address] [place] [address] 08/06/2023 14:15:40 08/06/2023 14:53:01 Pain of left hip joint 6508681894 70647 M25.552 Osteoarthr itis of left hip joint 6737593239 44669 M16.12 [id number] Piter Stokes MD [facility] [address] 09/02/2023 14:16:21 09/03/2023 08:22:04 Smoker 60435003 F17.218 F17.219 Z87.891 Severe chr onic obstructive pulmonary disease 063560919 J44.9 [id number] Rory desai MD [facility] Internal Med [facility] [address] [place] [address] 15 [place] [address] 12/25/2023 15:32:13 12/25/2023 16:18:34 Screening - NAD 293589805 Z13.9 C-scope: 11/2020: Dr Escobedo as per prior PCP note Get yearly flu shot, get tdap if not doneGet COVID 19 vaccine and its boostersGe t shingrix vaccine RTC in 3 months, do labs, ER if worse, he did verbalize his understand ing of the above Coronary arteriosclerosis 27197992 I25.10 S/p CABGOn ASANot on plavixSee cardiology Crohn's disease 92322799 K50.[address] Escobedo Hemorrhoids 96604016 K64 .9 Has taken anusol in the past Prediabetes 387273022 R7 3.03 Get labs Hyperlipidemia 82271255 E78.5 On rosuvastat in 20mg dailyGet labs Essential hypertension 91413463 I10 On amlodipine 5mg dailyGet labsSees Dr Elliott Chronic ob structive pulmonary disease 82714875 J44.9 On albuterol, renewed 12/25/[address] On spirivaOn symbic[address]S e[address] Dr Stokes Vitamin D deficiency 347 46422 E55.9 Cigarette smoker 1833705 7 F17.210 LDCT 07/11/[address] Senavised to quit!US AAA at age 65 years Pain of le ft hip joint 4407311466 35990 M25.552 Pooja Castillo SECURITY INSPECTOR 08/06/2023 Serum barry min B12 below reference range 830146622 R79.89 Screening for malignant neoplasm of prostate 721480628 Z12.5 [id number] Rory desai MD [facility] Internal Med [address] [facility], [address] [place] [address] 04/29/2024 16:13:56 04/29/2024 17:07:47 Screening - NAD 124863082 Z13.9 C-scope: 11/2020: Dr Escobedo as per prior PCP note Get yearly flu shot, get tdap if not doneGet COVID 19 vaccine and its boostersGe t shingrix vaccine RTC in 3 months, do labs, ER if worse, he did verbalize his understand ing of the above Coronary arteriosclerosis 05456138 I25.10 S/p CABGOn ASAOn plavix 01/29/2024 cardiology On coreg 6.25mg bidDr Earl 08/22/2023 , f/u in one month, start coreg and losartan Crohn's disease 49179789 K50.[address] Escobedo Hemorrhoids 29676630 K64 .9 Has taken anusol in the past Prediabetes 863358855 R7 3.03 Get labs Hyperlipidemia 39409304 E78.5 Not on rosuvastat in 20mg dailyOn atorvastat in 40mg daily given by Dr [place] [facility] Essential hypertension 84325791 I10 Not on amlodipine 5mg daily, On amlodipine 10mg dailyOn losartan 50mg dailyGet labsSees Dr Elliott D/c from hospital for pneumonia in 03/2024, does well now Chronic ob structive pulmonary disease 51627623 J44.9 On albuterol, renewed 04/29/[address] On spirivaOn symbic[address]S e[address] Dr Stokes Vitamin D deficiency 347 68716 E55.9 Cigarette smoker 0302133 7 F17.210 LDCT 07/11/2022 LDCT 07/28/[address] Parra to quit!US AAA at age 65 years Pain of le ft hip joint 7422554078 36636 M25.552 Pooja Castillo SECURITY INSPECTOR 08/06/2023 Cobalamin deficiency 190 518630 E53.8 Health Concerns Section Related Observation LastModified by Organization Detai ls LastModified Time None Recorded Concern Status LastModified by Organization Details LastModified Time None Recorded Advance Directives Directive N: Payers Encounter Date Sequence Insurance Name Policy Number Policy Bridges Covered Member ID Bridges Member ID Guarantor Name 07/17/2023 1 [facility] ON OR AFTER 11/23/20 (MEDICAID REPLACEMENT - HMO) Cirilo Chicas [id number] Cirilo Chicas 08/06/2023 1 [facility] ON OR AFTER 11/23/20 (MEDICAID REPLACEMENT - HMO) Cirilo Chicas [id number] Cirilo Chicas 09/02/2023 1 [facility] ON OR AFTER 11/23/20 (MEDICAID REPLACEMENT - HMO) Cirilo Chicas [id number] Cirilo Chicas 12/25/2023 1 [facility] ON OR AFTER 11/23/20 (MEDICAID REPLACEMENT - HMO) Cirilo Chicas [id number] Cirilo Chicas 04/29/2024 1 [facility] ON OR AFTER 11/23/20 (MEDICAID REPLACEMENT - HMO) Cirilo Chicas [id number] Cirilo Chicas Notes Date Note Type Note Provider Name and Address Organization Details Recorded Time 07/17/2023 text/html OV 07/17/2023:He re to establish care Past Hx:CADCrohn's diseaseCOPDSmoker Here as he has been having L hip pain, no acute or remote injury, no N/T but also hurts to climb and to squat Rory Looney MD [address] [place] [address], [address], [place], [address], [place] - [facility] [employer] 07/17/2023 18:03:19 09/02/2023 text/html Primary care/Ref erring provider: NIRANJAN OzunaP-CPatient is here to go over his COPD management.Initial development of shortness of breath: 2018Duration of shortness of breath: 6 yearsCondition of shortness of breath: stableTiming of shortness of breath: noneFrequency: up to 6 times a day on a bad dayLimits activities: yesAggravating factors: walking, running, stressAlleviating factors: restModified Medical Research [place] (mMRC) Dyspnea Scale - Grade 1Grade 0 ? I only get breathless with strenuous exercise? .Grade 1 ? I get short of breath when hurrying on the level or walking up a slight hill? .Grade 2 ? I walk slower than people of the same age on the level because of breathlessness or have to stop for breath when walking at my own pace on the level? .Grade 3 ? I stop for breath after walking about 100 yards or after a few minutes on the level? .Grade 4 ? I am too breathless to leave the house? or ? I am breathless when dressing? .Treatment history: Albuterol HFA as needed since 08/13Bevespi 9/4.8 mcg as needed since 2020 - 2021 Spiriva Respimat 2.5 mcg 2 puffs daily since 2021 Symbicort HFA 160/4.5 mcg 2 puffs BID since ther symptoms:Productive cough: whiteWheezing: yesChest tightness: noOrthopnea: noFrequent throat clearing or swallowing: noPalpitations: noHeartburn: yesDysphagia: noEdema: yesEnvironmental exposures:Nicotine smoke: 3/4 ppd 1981-present = 31.5 pack yearsPaint: noDye: noDust mites: yesMold: noDamp basement: noWood burning stove: noAnimal dander: yes 1 dogCockroaches: noPollen: yesArsenic: noAsbestos: noBeryllium: noCadmium: noChromium: noCoal smoke: noDiesel fumes: yes at work ([employer])Nickel: noSilica: noSoot: noEPWORTH SLEEPINESS SCALE (ESS)CHANCE OF DOZING SCORE0 = would never doze1 = slight chance of dozing2 = moderate chance of dozing3 = high chance of dozingSITUATION AND CHANCE OF DOZINGSitting and reading - 2Watching television - 1Sitting inactive in a public place (e.g. a theater or meeting) - 0As a passenger in a car for an hour without a break - 2Lying down to rest in the afternoon when circumstances permit - 2Sitting and talking to someone - 0Sitting quietly after lunch without alcohol - 0In a car, while stopped for a few minutes in the traffic - 0TOTAL SCORE 7Subjectively, patient has a slight chance of dozing. Piter Stokes MD [address], [address], [place], [address], [employer] 09/02/2023 14:59:43 12/25/2023 text/html OV 07/17/2023:He re to establish care Past Hx:CADCrohn's diseaseCOPDSmoker Here as he has been having L hip pain, no acute or remote injury, no N/T but also hurts to climb and to squat OV 12/25/2023: Here for his routine apt, he is doing well today Rory Looney MD [address], [address], [place], [address], [employer] 12/27/2023 12:41:22 04/29/2024 text/html OV 07/17/2023:He re to establish care Past Hx:CADCrohn's diseaseCOPDSmoker Here as he has been having L hip pain, no acute or remote injury, no N/T but also hurts to climb and to squat OV 12/25/2023: Here for his routine apt, he is doing well today OV 04/29/2024: Here for his f/u apt, he is doing well today, still has mild wheezing, was admitted for pneumonia about 3 weeks ago, wants his refill on the albuterol Rory Looney MD [address], [address], [place], [address], [employer] 05/14/2024 23:25:36
--- OUTSIDE RECORDS SUMMARY | 2024-06-06 03:21 | XMS_ITS | Encounter Summary ---
Author Organization [facility] Address [address] [place] [address]. [place], [place] [address] [place] [address] Care Team Providers Care County Engineer Name Role Phone Hemant Lopez MD Primary Care Provider + [phone] Ampadu, Hemant Leung MD Primary Care Provider + [phone] Ampadu, Hemant Leung MD Primary Care Provider + [phone] Ampadu, Hemant Leung MD Primary Care Provider + [phone] Encounter Details Date Type Department Care Team (Late st Contact Info) Description 01/22/2016 Abstract YULI CONVERSION [place], [place] [address] , Generic Conversion, Social History Tobacco Use [...] Procedure Name Priority Date/Time Associated Diagnosis Comments TBGOLD-TUBERCULOSIS TST CELL MEDIATED IMMUNITY Routine 01/22/2016 9:27 AM CDT VITAMIN B-12 Routine 01/22/2016 9:27 AM CDT HEPATITIS BE ANTIBODY Routine 01/22/2016 9:27 AM CDT HEPATITIS BE AG, EIA Routine 01/22/2016 9:27 AM CDT FOLIC ACID SERUM Routine 01/22/2016 9:27 AM CDT documented in this encounter Results * HEPATITIS BE AG, EIA (01/22/2016 9:27 AM CDT) HEPATITIS BE AG Nonreactive 01/24/20 16 4:33 PM CDT [facility] Comment: Reference range: ??Nonreactive Test Performed by [facility] [place], [employer], [address] [place] [address] Pablito Vogel M.D., Ph.D., Director of Laboratories , CLIA [id number] SERUM SPECIMEN / Unknown 01/22/2016 9:27 AM CDT 01/22/2016 9:55 AM CDT us Generic Conversion Md [facility] Final R esult Performing Organization Address City/[facility]/ZIP Co de Phone Number [facility] [place] [address], [place] [phone] * HEPATITIS BE ANTIBODY (01/22/2016 9:27 AM CDT) HEPATITIS BE AB Nonreactive 01/24/20 16 4:33 PM CDT [facility] Comment: Reference range: ??Nonreactive Test Performed by [facility], [employer], [address] [place] [address] Pablito Vogel M.D., Ph.D., Director of Laboratories , CLIA [id number] SERUM SPECIMEN / Unknown 01/22/2016 9:27 AM CDT 01/22/2016 9:55 AM CDT us Generic Conversion Md [facility] Final R esult Performing Organization Address City/[facility]/ZIP Co de Phone Number [facility] [address] [place] [address], [place] [phone] * TBGOLD-TUBERCULOSIS TST CELL MEDIATED IMMUNITY (01/22/2016 9:27 AM CDT) [facility] TB QUANTIFERON NEGATIVE Negative 01/24/2016 11:54 PM CDT [facility] Comment: Negative test result. M. tuberculosis complex infection unlikely. NIL (TB) 0.02 IU/mL 01/24/2016 11:54 PM CDT [facility] MITOGEN NIL >10.00 IU/mL 01/24/2016 11:54 PM CDT [facility] TB ANTIGEN - NIL VALUE 0.00 IU/mL 01/24/2016 11:54 PM CDT [facility] Comment: The Nil tube value is used to determine if the patient has a preexisting immune response which could cause a false-positive reading on the test. In order for a test to be valid, the Nil tube must have a value of <=8.0 IU/mL. The Mitogen control tube is used to assure the patient has a healthy immune status and also serves as a control for correct blood handling and incubation. It is used to detect false-negative readings. The mitogen tube must have a gamma interferon value >= 0.5 IU/mL higher than the value of the Nil tube. The TB Antigen tube is coated with the M tuberculosis specific antigens. For a test to be considered positive the TB antigen tube value minus the Nil tube value must be >=0.35 IU/mL. Data on the performance of the test in children younger than 5 years of age are limited, and the CDC advises that caution is warranted when using the assay in children aged <5 years (MMWR 2010; 59 (RR-05):1-25). For additional information, please refer to: http://education.[employer].FullContact/faq/QFT Test Performed by [facility], [facility], [address] [place] [address] Pablito Vogel M.D., Ph.D., Director of Laboratories , [place] [id number] MISCELLANEOUS SAMPLES / Unknown 01/22/2016 9:27 AM CDT 01/22/2016 9:39 AM CDT us Generic Conversion Md [facility] Final R esult [facility] [address] [place] [address], [place] [phone] * FOLIC ACID SERUM (01/22/2016 9:27 AM CDT) FOLATE 12.6 7.3 - 26.1 ng/mL 01/22/2016 10:[address] [facility] SERUM OR PLASMA SPECIMEN / Unknown 01/22/2016 9:27 AM CDT 01/22/2016 9:39 AM CDT us Generic Conversion Md [facility] Final R esult Performing Organization Address City/[facility]/ZIP Co de Phone Number [facility] [address] [place] [address], [place] [phone] * (ABNORMAL) VITAMIN B-12 (01/22/2016 9:27 AM CDT) VITAMIN B12 S/P/B 81(L) 211 - 946 pg/mL 01/22/2016 10:[address] [facility] SERUM SPECIMEN / Unknown 01/22/2016 9:27 AM CDT 01/22/2016 9:39 AM CDT Generic Conversion Md [facility] Final R esult Performing Organization Address [facility]/ZIP Co de Phone Number [facility] [address] [place] [address], [place] [phone] documented in this encounter Visit Diagnoses Diagnosis Crohn's disease of both small and large intestine with other complication (CMS/HCC HHS/HCC) documented in this encounter Care Teams County Engineer Relationship Specialty Start Date End Date Hemant Lopez MD PCP - General 04/09/16 02/15/24 Hemant Lopez MD PCP - General 02/19/16 04/08/16 Hemant Lopez MD PCP - General 01/30/16 02/18/16 Hemant Lopez MD PCP - General 01/22/16 01/29/16 documented as of this encounter
--- OUTSIDE RECORDS SUMMARY | 2024-06-06 03:21 | XMS_ITS | Encounter Summary ---
Author Organization [facility] Address [address] [place] [address]. [place], [place] [id number] [place] [address] Care Team Providers Care Tool Crib Lead Name Role Phone Hemant Lopez MD Primary Care Provider Encounter Details Date Type Department Care Team (Latest Contact Info) Description 07/19/2019 Travel Social History Tobacco Use Types Packs/Day [...] on filedocumented in this encounter Care Teams Tool Crib Lead Relationship Specialty Start Date End Date Hemant Lopez MD PCP - General 04/09/16 02/15/24 documented as of this encounter
--- OUTSIDE RECORDS SUMMARY | 2024-06-06 03:21 | XMS_ITS | Encounter Summary ---
Author Organization [facility] Address [address] [place] [address]. [place], [place] [address] [place] [address] Care Team Providers Care Manager Eligibility Name Role Phone Hemant Connors MD Primary Care Provider + [phone] Reason for Visit * Reason Comments Flu Like Symptoms Encounter Details Date Type Department Care Team ([facility] st Contact Info) Description 04/12/2019 5:12 AM PARCEL CONTRACTOR - 04/12/2019 7:29 AM PARCEL CONTRACTOR Emergency [facility] [place] [address] Anil Nina MD [address] [place] [address] Flu Like Symptoms Discharge Disposition: Home or Self Care (Routine [...] Sign Reading Time Taken Comments Blood Pressure 125/77 04/12/2019 7:13 AM PARCEL CONTRACTOR Pulse 101 04/12/2019 7:13 AM PARCEL CONTRACTOR Temperature 36.7 ??C (98 ??F) 04/12/2019 4:58 AM PARCEL CONTRACTOR Respiratory Rate 20 04/12/2019 7:13 AM PARCEL CONTRACTOR Oxygen Saturation 98% 04/12/2019 7:13 AM PARCEL CONTRACTOR Inhaled Oxygen Concentration - - Weight 56.3 kg (124 lb 3.2 oz) 04/12/2019 4:58 A M PARCEL CONTRACTOR Height 170.2 cm (5' 7 ) 04/12/2019 4:58 AM PARCEL CONTRACTOR Body Mass Index 19.45 04/12/2019 4:58 AM PARCEL CONTRACTOR documented in this encounter Discharge Instructions * Discharge Instructions* Anil Nina MD - 04/12/2019 7:12 AM PARCEL CONTRACTOR Return if worsening shortness of breath, pain, fever. Drink plenty of fluids, follow up closely with primary doctor. Cough with bronchitis can last up to 4 weeks, but symptoms of body aches, any fevers, shortness of breath, and general feeling bad should improve. EL CONTRACTOR * Attachments The following attachments cannot be sent through Care Everywhere. * Atypical Pneumonia (Mycoplasma and Viral) Discharge Instructions ([place]) * Exacerbation of COPD Discharge Instructions ([place]) * Quitting Smoking ([place]) documented in this encounter Medications at Time of Discharge albuterol sulfate HFA 108 (90 Base) MCG/ACT inhaler Inhale 2 puffs into the lungs every 6 (six) hours as needed for Wheezing. 1 Inhaler 04/12/2019 azithromycin (ZITHROMAX) 250 MG tablet Take 2 tablets day 1, take 1 tablet each day after. 6 tablet 04/12/2019 04/17/2019 benzonatate (TESSALON PERLES) 100 MG capsule Take 1 capsule (100 mg total) by mouth 3 (three) times daily as needed for Cough. 20 capsule 04/12/2019 04/19/2019 hydrocodone-aceta minophen (NORCO) 5-325 MG tablet Take 1 tablet by mouth every 8 (eight) hours as needed for Pain. 8 tablet 11/06/2018 02/19/2024 predniSONE 50 MG tablet Take 1 tablet (50 mg total) by mouth daily for 5 days. 5 tablet 04/12/2019 04/17/2019 documented as of this encounter ED Notes * Anil Nina MD - 04/12/2019 5:59 AM CST [place], [place] EMERGENCY DEPARTMENT ENCOUNTER Chief Complaint Chief Complaint Patient presents with ??? 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 Denies fever, vomiting/diarrrhea. Pt has mild chest pain w/ coughing and sore throat . dyspnea with severe coughing only , which is making sleeping difficult. Pt endorses congestion as well. Pt w/ sick contacts, symptoms starting gradually on Friday. Pt reports some mild nausea and diarrhea, however this is chronic for him with crohns. Pt denies abdominal pain. Pt does report smoking. Pt does not take medications for crohns, denying immune suppressants or steroids. Medical History ALLERGIES: Allergies Allergen Reactions ??? [...] Systems Review of Systems Constitutional: Negative for fever. HENT: Positive for congestion. Eyes: Negative for pain. Respiratory: Positive for cough. Cardiovascular: Negative for chest pain. Gastrointestinal: Negative for abdominal pain. Genitourinary: Negative for dysuria. Musculoskeletal: Positive for myalgias. Skin: Negative for rash. Neurological: Negative for headaches. Psychiatric/Behavioral: The patient is not nervous/anxious. See HPI for further details. All systems negative except as marked. Physical Exam Filed Vitals: 04/12/19 0458 BP: 128/87 Pulse: 102 Resp: 20 Temp: 98 ??F (36.7 ??C) TempSrc: Temporal SpO2: 98% Weight: 56.3 kg (124 lb 3.2 oz) Height: 5' 7 (1.702 m) Physical Exam Constitutional: He is oriented to person, place, and time. He appears well- developed and well-nourished. No distress. HENT: Head: Normocephalic and atraumatic. Mouth/Throat: Oropharynx is clear and moist. Eyes: EOM are normal. Pupils are equal, round, and reactive to light. Neck: Normal range of motion. Neck supple. Cardiovascular: Normal rate, regular rhythm, normal heart sounds and intact distal pulses. Pulmonary/Chest: Effort normal. No respiratory distress. He has wheezes (Faint expiratory wheeze). He has no rales. Course cough Speaking full sentences Abdominal: Soft. Bowel sounds are normal. He exhibits no distension. There is no tenderness. There is no rebound. Musculoskeletal: Normal range of motion. He exhibits no edema, tenderness or deformity. Lymphadenopathy: He has no cervical adenopathy. Neurological: He is alert and oriented to person, place, and time. No cranial nerve deficit. Skin: Skin is warm and dry. No rash noted. Psychiatric: He has a normal mood and affect. Vitals reviewed. Diagnostic Studies / Procedures ELECTROCARDIOGRAMS: No results found for this visit on 04/12/19. LABORATORY STUDIES: No results found for this visit on 04/12/19. IMAGING STUDIES XR CHEST PA+LAT (Results Pending) ED Course / Medical Decision Making MDM Diagnosis management comments: 53-year-old male presents w/ flu-like symptoms Pulse Ox Interpretation: Saturation:??98% Oxygen Delivery: room air Interpretation: ??No acute hypoxia at this time. ?? Rhythm strip interpretation: Rhythm sinus rate 102. No arrhythmia noted. ?? Plan: - Labs - Imaging - Meds Given smoking status, concerned for copd exacerbation vs. Bronchitis vs. Atypical pneumonia. cxr w/out consolidation and influenza testing negative. S/p neb pt feeling better, cough improved and repeat exam w/ resolved wheezing. No hypoxia or fever and overall exam not consistent w/ sepsis. Plan coverage for atypical pneumonia given constellation of symptoms and discussed expected course and recovery. Advised steroids and inhalers and close pcp f/u, returning if progressive dyspnea/chest pain ,high fever, or otherwise worsening. Pt agrees to d/c, f/u and return plans Data reviewed: All current, pertinent and timely studies (laboratory, imaging, and procedures) wereordered and results reviewed by Anil Nina MD unless otherwise noted. Triage notes and available nursing notes reviewed. Previous medical record reviewed when available. Repeat vital signs reviewed. Medications sodium chloride 0.9% bolus infusion SOLN 1,000 mL (1,000 mLs Intravenous New Bag 04/12/19 0558) Clinical Impression Atypical pneumonia (Primary) Current Discharge Medication List Disposition: Discharge Follow-Up: HEMANT CONNORS MD I, [place], acting as a scribe, am personally taking down the notes in the presence of Anil Nina MD. Take no action on this note until reviewed and authenticated by the physician. Anil Nina MD 04/12/19 1716 EL CONTRACTOR * Windy Ho RN - 04/12/2019 5:00 AM CST Pt to ed from home with cough, congestion, weakess, diarrhea, nausea, emesis, and SOB. 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 Pt reports symptoms started Friday. EL CONTRACTOR documented in this encounter Plan of Treatment Not on file documented as of this encounter Procedures Procedure Name Priority Date/Time Associated Diagnosis Comments XR CHEST PA+LAT STAT 04/12/2019 6:08 AM PARCEL CONTRACTOR INFLUENZA A & B STAT 04/12/2019 5:45 AM PARCEL CONTRACTOR documented in this encounter Results * XR CHEST PA+LAT (04/12/2019 6:08 AM PARCEL CONTRACTOR) Anatomical Region Laterality Modality Chest Radiographic Annita ging 04/12/2019 6:19 AM PARCEL CONTRACTOR Impressions 04/12/2019 6:20 AM PARCEL CONTRACTOR Impression: Possible bronchitis, but no consolidative pneumonia. Narrative 04/12/2019 6:20 AM PARCEL CONTRACTOR Date: 04/12/2019 5:59 AM Exam: XR CHEST PA+LAT Comparison: No comparisons. Technique: Two-view chest. History: Cough, congestion, weakness, diarrhea, nausea, emesis and shortness of breath. Findings: The cardiac silhouette and pulmonary vascularity are within normal limits. The lungs are clear without consolidation or pleural effusion. There is no pneumothorax. There is bronchial wall thickening. There is calcified granulomatous disease in the right chest. The osseous structures appear grossly normal other than arthritis in the AC joints and mild degenerative changes in the thoracic spine. Procedure Note Uday Rousseau MD - 04/12/2019 Date: 04/12/2019 5:59 AM Exam: XR CHEST PA+LAT Comparison: No comparisons. Technique: Two-view chest. History: Cough, congestion, weakness, diarrhea, nausea, emesis and shortness of breath. Findings: The cardiac silhouette and pulmonary vascularity are within normal limits. The lungs are clear without consolidation or pleural effusion. There is no pneumothorax. There is bronchial wall thickening. There is calcified granulomatous disease in the right chest. The osseous structures appear grossly normal other than arthritis in the AC jointsand mild degenerative changes in the thoracic spine. Impression: Possible bronchitis, but no consolidative pneumonia. Anil Nina MD GENERAL IMAGING Final Resu lt * INFLUENZA A & B (04/12/2019 5:45 AM PARCEL CONTRACTOR) SPECIMEN TYPE NASAL 04/12/2019 5:51 AM PARCEL CONTRACTOR [facility] INFLUENZA A NEGATIVE NEGATIVE 04/12/2019 6:09 AM PARCEL CONTRACTOR [facility] INFLUENZA B NEGATIVE NEGATIVE 04/12/2019 6:09 AM PARCEL CONTRACTOR [facility] Comment: Interpretation: Negative for Influenza [...] testing with RT-PCR requires a separate order. NASOPHARYNGEAL SWAB / Unknown 04/12/2019 5:45 AM PARCEL CONTRACTOR us Anil Nina MD MICROBIOLOGY - GENERAL ORD ERABLES Final Result [facility] [address] [place] [address], [place] [phone] documented in this encounter Visit Diagnoses Diagnosis Atypical pneumonia- Primary Pneumonia, organism unspecified documented in this encounter Administered Medications Inactive Administered Medications - up to 3 most recent administrations Medication Order MAR Action Action Date Dose Rate Site azithromycin (ZITHROMAX) tablet 500 mg 500 mg, Oral, Once, 1 dose, On Fri04/12/19 at 0645 Given 04/12/2019 6:48 AM PARCEL CONTRACTOR 500 mg ipratropium-albuterol (DUONEB) 0.5-2.5 (3) MG/3ML nebulizer solution 3 mL 3 mL, Nebulization, Once, 1 dose, On Fri04/12/19 at 0645 Given 04/12/2019 6:49 AM PARCEL CONTRACTOR 3 mLs predniSONE (DELTASONE) tablet 60 mg 60 mg, Oral, Once, 1 dose, On Fri04/12/19 at 0645 Given 04/12/2019 6:48 AM PARCEL CONTRACTOR 60 mg sodium chloride 0.9% bolus infusion SOLN 1,000 mL 1,000 mL, Intravenous, Administer over 15 Minutes, Once, 1 dose, On Fri04/12/19 at 0600 New Bag 04/12/2019 5:58 AM PARCEL CONTRACTOR 1,000 mLs documented in this encounter Active and Recently Administered Medications Times are shown in PARCEL CONTRACTOR. Scheduled Medication Order 04/10/2019 04/11/2019 04/12/2019 azithromycin (ZITHROMAX) tablet 500 mg (COMPLETED) 500 mg, Oral, Once, 1 dose, On Fri04/12/19 at 0645 0648 (Given - Provid er: Kassy Rivera RN) ipratropium-albuterol (DUONEB) 0.5-2.5 (3) MG/3ML nebulizer solution 3 mL (COMPLETED) 3 mL, Nebulization, Once, 1 dose, On Fri04/12/19 at 0645 0649 (Given - Provid er: Kassy Rivera RN) predniSONE (DELTASONE) tablet 60 mg (COMPLETED) 60 mg, Oral, Once, 1 dose, On Fri04/12/19 at 0645 0648 (Given - Provid er: Kassy Rivera RN) sodium chloride 0.9% bolus infusion SOLN 1,000 mL (COMPLETED) 1,000 mL, Intravenous, Administer over 15 Minutes, Once, 1 dose, On Fri04/12/19 at 0600 0558 (New Bag - Prov ider: Don Child RN)0649 (Infusion Stop Time - Provider: Kassy Rivera RN) documented in this encounter Care Teams Manager Eligibility Relationship Specialty Start Date End Date Hemant Connors MD PCP - General 04/09/16 02/15/24 documented as of this encounter
--- OUTSIDE RECORDS SUMMARY | 2024-06-06 03:26 | XMS_ITS | Encounter Summary ---
Author Organization [facility] Address [address] [place] [address] Care Team Providers Care Project Account Manager Name Role Phone Unavailable Primary Care Provider Unavailabl e Encounter Details Date Type Department Care Team (Late st Contact Info) Description 05/30/2020 Lab Requisition [facility] Testing [facility] [address] [place] [address] [place], [place] [address] [place] [address] Social History Tobacco Use Types Packs/Day Years Used Date Smoking Tobacco: Never Assessed Sex and Gender Information Value Date Recorded Sex Assigned at Not on file Legal Sex Male 12:56 PM RAW JUICE WEIGHER Gender Identity Not on file Sexual Orientation Not on file documented as of this encounter Plan of Treatment Not on file documented as of this encounter Procedures Procedure Name Priority Date/Time Associated Diagnosis Comments SARS-COV-2 PCR [facility] ONLY Routine 05/30/2020 1:10 PM RAW JUICE WEIGHER documented in this encounter Visit Diagnoses Not on filedocumented in this encounter
--- OUTSIDE RECORDS SUMMARY | 2024-06-06 03:26 | XMS_ITS | CONTINUITY OF CARE DOCUMENT ---
Author Name kiki ishclary Address Unknown Organization [facility] Address [address] [place] [address] Phone [phone] Care Team Providers Care Keyboard Action Assembler Name Role Phone Wilbur Elliott MD Unavailable JOSH JUNIOR Unavailable [phone] RORY JACKSON MD Unavailable [phone] PROBLEMS Condition Status Date Provider Notes Cardiology examination active Wilbur Elliott MD Chest pain active Wilbur Elliott MD HTN essential active Wilbur Elliott MD Shortness of breath active Wilbur Elliott MD Tobacco abuse active Wilbur Elliott MD Crohn's disease active Wilbur Elliott MD Dyspnea on exertion active Wilbur Elliott MD CAD s/p CABG active Wilbur Elliott MD Hyperlipidemia active Bhavna Robin NP Cardiomyopathy, EF 45% active 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 samuels 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 ENCOUNTERS Date Type Provider Location Encounter Diag nosis - In-person encounter Office Visit Wilbur Elliott MD [facility] - In-person encounter Office Visit Wilbur Elliott MD [facility] - In-person encounter Office Visit Wilbur Elliott MD [facility] - In-person encounter Office Visit Wilbur Elliott MD [facility] - In-person encounter Office Visit Wilbur Elliott MD [facility] HyperlipidemiaCardiomyopa thy, EF 45% - In-person encounter Office Visit Wilbur Elliott MD [facility] CAD s/p CABG - In-person encounter Office Visit Wilbur Elliott MD [facility] Cardiology examinationChest painHTN essentialShortness of breathTobacco abuseCrohn's diseaseDyspnea on exertion VITAL SIGNS Date Observation Value Provider Body Mass Index (Ratio) 22.71 kg/m2 Riley Elliott MD blood pressure, diastolic 101 mm[Hg] Katie nkLog blood pressure, systolic 174 mm[Hg] Michelle kLog pulse rate 110 /min Jimy y blood pressure, cuff size regular Ja et blood pressure, diastolic 101 mm[Hg] Ja et blood pressure, systolic 174 mm[Hg] Jar ret respiratory rate E&M 16 /min oxygen saturation, oximetry 95 % Jimy weight E&M 145 [lb_av] Jimy y height E&M 67 [in_i] Jimy y Body Mass Index (Ratio) 23.49 kg/m2 Riley Elliott MD blood pressure, diastolic 84 mm[Hg] Nathalie Cifuentes blood pressure, systolic 158 mm[Hg] Skip Cifuentes oxygen saturation, oximetry 95 % Maureen Cifuentes pulse rate 100 /min Maureen guzman blood pressure, cuff size large Nathalie Cifuentes respiratory rate E&M 16 /min Jayashree roberson Esau weight E&M 150 [lb_av] Maureen Ralph guzman height E&M 67 [in_i] Maureen Mekhiclay megan Body Mass Index (Ratio) 23.33 kg/m2 Riley Elliott MD blood pressure, cuff size regular Ke rri Gruenenfeldpamela blood pressure, diastolic 126 mm[Hg] Ke rri Gruenenfeldpamela blood pressure, systolic 220 mm[Hg] Cari Carpenter oxygen saturation, oximetry 98 % Maryanne Jayden respiratory rate E&M 14 /min Maryanne pandey pulse rate 97 /min Maryanne Karishma ferriser weight E&M 149 [lb_av] Maryanne Karishma lder height E&M 67 [in_i] Maryanne Arteme er blood pressure, diastolic 114 mm[Hg] Katie nkLogmoreno blood pressure, systolic 175 mm[Hg] Michelle kLogic Body Mass Index (Ratio) 20.52 kg/m2 Riley Elliott MD blood pressure, diastolic 114 mm[Hg] St deepti Jimenez blood pressure, systolic 175 mm[Hg] Phong Jimenez oxygen saturation, oximetry 99 % Wen Jimenez pulse rate 96 /min Wen Jimenez respiratory rate E&M 18 /min Wen mcginnis weight E&M 131 [lb_av] Wen Jimenez height E&M 67 [in_i] Wen Jimenez Body Mass Index (Ratio) 22.86 kg/m2 Riley Elliott MD blood pressure, diastolic 94 mm[Hg] Ca therine Crofton blood pressure, systolic 135 mm[Hg] Cat herine Rolando oxygen saturation, oximetry 97 % Narda Rolando respiratory rate E&M 16 /min Catheri ne Rolanod pulse rate 94 /min Narda Rolando weight E&M 146 [lb_av] Narda Rolando blood pressure, cuff size regular Ca therine Crofton height E&M 67 [in_i] Narda Crofton Body Mass Index (Ratio) 22.71 kg/m2 Riley Elliott MD blood pressure, diastolic 80 mm[Hg] Ca therine Rolando blood pressure, systolic 120 mm[Hg] Cat herine Rolando oxygen saturation, oximetry 94 % Narda Crofton pulse rate 48 /min Narda Crofton respiratory rate E&M 14 /min Catheri ne Crofton weight E&M 145 [lb_av] Narda Crofton blood pressure, cuff size regular Ca therine Rolando height E&M 67 [in_i] Narda Crofton Body Mass Index (Ratio) 23.02 kg/m2 Riley Elliott MD blood pressure, diastolic 109 mm[Hg] Ch astity Ramya blood pressure, systolic 179 mm[Hg] Fidelia stity Ramya oxygen saturation, oximetry 97 % Chastity Ramya pulse rate 114 /min Chastity Ramya height E&M 67 [in_i] Chastity Ramya weight E&M 147 [lb_av] Chastity Ramya respiratory rate E&M 16 /min Chastit y Ramya ALLERGIES Allergy Name Onset Date Reaction Criticality Status DELOTID High Criticality active HISTORY OF MEDICATION USE Medication Status Instructions Dates Provider Indications Com ments losartan 50 mg tablet active Take 1 tablet by mouth twice a day Anna Marie LANTIGUA clopidogrel 75 mg tablet active TAKE ONE TABLET BY MOUTH EVERY DAY Anna Mariejuana Pelaezglkelby UREÑAP iron unspecified unspecified active Narda Rolando loperamide 2 mg tablet active Take tablet by mouth as directed Narda Rolando Humira Pen 40 mg/0.8 mL pen injector kit active Inject pen injector once a month Narda Crofton ergotamine tartrate unspecified unspecified active Narda Rolando hydrocortisone acetate 1% cream active Narda Rolando rosuvastatin 20 mg tablet active Take 1 tablet by mouth once a day Anna Mariejuana UREÑAP oxycodone 10 mg tablet active Take 1 tablet by mouth one tablet q 6 hours as needed for pain Wilbur Elliott MD carvedilol 6.25 mg tablet active Take 1 tablet by mouth twice a day Anna Marie LANTIGUA nitroglycerin 0.4 mg tablet, sublingual completed 1 tablet under tongue as directed as needed 1 tablet under tongue for chest pain. May repeat every 5 minutes if still having chest pain- to max of 3 tablets per episode.If no relief after 3rd dose, go to ER - Anna Marie Pelaezglia OPTICAL DISPENSER Bevespi Aerosphere 9-4.8 mcg HFA aerosol inhaler completed - Anna Marie LANTIGUA cholestyramine (with sugar) 4 gram powder completed - Anna Mariejuana LANTIGUA bupropion HCl 150 mg tablet extended release 24 hr completed - Anna Marie LANTIGUA amlodipine 5 mg tablet active TAKE 1 TABLET BY MOUTH EVERY DAY Anna Marie LANTIGUA methylprednisolone 4 mg tablets,dose pack active Wilbur meek MD Vitamin D2 1,250 mcg (50,000 unit) capsule active Wilbur Elliott MD albuterol sulfate 90 mcg/actuation HFA aerosol inhaler active Wilbur Elliott MD SOCIAL HISTORY Date Observation Value Provider smoking/tobacco cess ation, patient education and counseling yes Anna Marie UREÑAP number of years as a smoker 20+ Anna Marie Ventimiglia [facility] cigarette use yes Anna Marie Mariami glia [facility] smoking status Current every da y smoker Anna Marie Mariamiglia [facility] smoking status Current every da y smoker Wilbur Elliott MD social history E&M S moking History: P atient currently smokes every day. P atient has been counseled to quit. Wilbur Elliott MD social history reviewed E&M revi ewed - no changes required Wilbur Elliott MD smoking/tobacco cess ation, patient education and counseling yes Maureen Esau number of years as a smoker 20+ Maureen Cifuentes cigarette use yes Maureen Mekhilloyd alfred social history E&M S moking History: P atient currently smokes every day. P atient has been counseled to quit. Wilbur Elliott MD social history reviewed E&M revi ewed - no changes required Wilbur Elliott MD smoking/tobacco cess ation, patient education and counseling yes Maryanen Carpenter number of years as a smoker 20+ Maryanne Carpenter cigarette use yes Maryanne vargas smoking status Current every da y smoker Maryanne Carpenter social history E&M S moking History: P atient currently smokes every day. P atient has been counseled to quit. Wilbur Elliott MD social history reviewed E&M revi ewed - no changes required Wilbur Elliott MD smoking/tobacco cess ation, patient education and counseling yes Wen Jimenez number of years as a smoker 20+ Wen Jimenez cigarette use yes Wen Jimenez smoking status Current every da y smoker Wen Jimenez social history E&M S moking History: P atient currently smokes every day. P atient has been counseled to quit. 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 P atient has been counseled to quit. Wilbur Elliott MD social history reviewed E&M revi ewed - no changes required Wilbur Elliott MD smoking/tobacco cess ation, patient education and counseling yes Narda Crofton number of years as a smoker 20+ Narda Rolando cigarette use yes Narda Rolando smoking status Current every da y smoker Narda Rolando number of grandchildren Wilbur Elliott MD U reina Elliott MD social history E&M S moking History: P atient currently smokes every day. P atient has been counseled to quit. Wilbur Elliott MD smoking/tobacco cess ation, patient education and counseling yes Wilbur Elliott MD social history reviewed E&M revi ewed - no changes required Wilbur Elliott MD number of years as a smoker 20+ Fideliastrichard Bui cigarette use yes Fideliastity Ramya smoking status Current every da y smoker Clemencia Lazaroue FUNCTIONAL STATUS Date Observation Value Provider HRA, CV Assess/Plan, Angina (inactive) Management Plan continue current therapy Anna Marie LANTIGUA HRA, CV Assess/Plan, Angina (inactive) Management Plan continue current therapy Wilbur Elliott MD HRA, CV Assess/Plan, Angina (inactive) Management Plan continue current therapy Wilbur Elliott MD HRA, CV Assess/Plan, Angina (inactive) Management Plan continue current therapy Wilbur Elliott MD HRA, CV Assess/Plan, Angina (inactive) Management Plan continue current therapy Bhavna Robin NP FAMILY HISTORY Family Member Condition Father Family History of Re nal Disease: Father Family History of Di abetes: Mother Family History of Co ronary Artery Disease: Mother Family History of Hy pertension: Mother Family History of Di abetes: INSURANCE PROVIDERS Payer name Policy type / Coverage type [facility] [place] (2) Medicaid [id number] ADVANCE DIRECTIVES Name Date DISCUSSED - NO DECISION MADE TREATMENT PLAN Date Name Performer [id number],C,n eed to know what medicines he is on. need to check labs as well Wilbur Elliott MD [id number],C, D aurora gilmore. Continue on his present meds including a statin but currently main issue is getting BP down. Wilbur Elliott MD [id number],C,H Is repeat BP was 176 and I am going to start him back on Losartan 50 mg BID and see if we can get BP done. His home BPs were high also, 120-170s/80-100s. BP today: 220/126 P rior BP: 175/114 (06/13/2022) His updated medication list for this problem includes: Amlodipine 10 Mg Tablet (Amlodipine) ..... Take 1 tablet by mouth once a day Carvedilol 6.25 Mg Tablet (Carvedilol) ..... Take 1 tablet by mouth twice a day Wilbur Elliott MD [id number],S, H is updated medication list for this problem includes: Rosuvastatin 20 Mg Tablet (Rosuvastatin) ..... Take by mouth once a day Cholestyramine (with Sugar) 4 Gram Powder (Cholestyramine (with sugar)) Wilbur Elliott MD [id number],S,W ill repeat an echo to see where his heart function is and also renal artery duplex to check his kidneys Wilbur Elliott MD [id number],S, Wilbur Elliott MD [id number],S,I have recommended to him to keep track of his BP at home BP today: 175/114 P rior BP: 135/94 (07/05/2021) His updated medication list for this problem includes: Amlodipine 10 Mg Tablet (Amlodipine) ..... Take 1 tablet by mouth once a day Carvedilol 6.25 Mg Tablet (Carvedilol) ..... Take 1 tablet by mouth twice a day Wilbur Elliott MD [id number],S,W ill repeat an echo to see where his heart function is and also renal artery duplex to check his kidneys Wilbur Elliott MD [id number],S, E F 45% on cath 02/2021. Continues on coreg. Bhavna Robin NP [id number],B, R esolved since CABG save for some tingling and numbness over his sternal incision site. Bhavna Robin NP [id number],S, H is updated medication list for this problem includes: Amlodipine 10 Mg Tablet (Amlodipine) ..... Take 1 tablet by mouth once a day Carvedilol 6.25 Mg Tablet (Carvedilol) ..... Take 1 tablet by mouth twice a day BP today: 135/94 P rior BP: 120/80 (04/06/2021) Bhavna Robin NP [id number],S, H e underwent bypass and has done quite well. He deferred on cardiac rehab because of his work schedule. He exerts himself regularlt at work without trouble. Bhavna oRbin NP [id number],S, P t still smoking. Advised to stop smoking again. 1PPW. Bhavna Negronzane ALFARO [id number],S, L ast LDL 31. His updated medication list for this problem includes: Rosuvastatin 20 Mg Tablet (Rosuvastatin) ..... Take by mouth once a day Cholestyramine (with Sugar) 4 Gram Powder (Cholestyramine (with sugar)) Bhavna Negronzane ALFARO [id number],S,H e underwent bypass and has done quite well but needs cardiac rehab. Wilbur Elliott MD [id number],S,P t still smoking. Advised to stop smoking again. Wilbur Elliott MD [id number],S, H is updated medication list for this problem includes: Amlodipine 10 Mg Tablet (Amlodipine) ..... Take 1 tablet by mouth once a day Carvedilol 6.25 Mg Tablet (Carvedilol) ..... Take 1 tablet by mouth twice a day BP today: 120/80 P rior BP: 179/109 (03/08/2021) Wilbur Elliott MD [id number],W, C hest pressure occuring with exertion with some SOB and diaphoresis. His symptoms are fairly typical for ischemia. I think that because his chest pain is occurring with exertion and his EKG is somewhat abnormal, we will proceed straight to a cardiac cath. Wilbur Elliott MD [id number],S, T he Patient was reencouraged to stop smoking. Wilbur Elliott MD Cardiology: P t still smoking. Advised to stop smoking again. 1-2 cigs.day Anna Marie Ventimiglia OPTICAL DISPENSER Cardiology: H as been out of losartan and coreg. Will refill. BP today: 174/101 P rior BP: 158/84 (10/31/2022) His updated medication list for this problem includes: Amlodipine 5 Mg Tablet (Amlodipine) ..... Take 1 tablet by mouth every day Losartan 50 Mg Tablet (Losartan) ..... Take 1 tablet by mouth twice a day Carvedilol 6.25 Mg Tablet (Carvedilol) ..... Take 1 tablet by mouth twice a day Anna Marie Díaz [facility] Cardiology: Xochitl hill. Anna Mariejuana Díaz [facility] Cardiology: Tay tracey well. Notes infrequent chest pain Anna Marie Díaz [facility] Cardiology Anna Mariejuana lama [facility] Cardiology:need to k now what medicines he is on. need to check labs as well Wilbur Elliott MD Cardiology: Megan gilmore. Continue on his present meds including a statin but currently main issue is getting BP down. Wilbur Elliott MD Cardiology:HIs repea t BP was 176 and I am going to start him back on Losartan 50 mg BID and see if we can get BP done. His home BPs were high also, 120-170s/80-100s. BP today: 220/126 P rior BP: 175/114 (06/13/2022) His updated medication list for this problem includes: Amlodipine 10 Mg Tablet (Amlodipine) ..... Take 1 tablet by mouth once a day Carvedilol 6.25 Mg Tablet (Carvedilol) ..... Take 1 tablet by mouth twice a day Wilbur Elliott MD Cardiology: H is updated medication list for this problem includes: Rosuvastatin 20 Mg Tablet (Rosuvastatin) ..... Take by mouth once a day Cholestyramine (with Sugar) 4 Gram Powder (Cholestyramine (with sugar)) Wilbur Elliott MD Cardiology:Will repe at an echo to see where his heart function is and also renal artery duplex to check his kidneys Wilbur Elliott MD Cardiology Wilbur Elliott MD Cardiology:I have re commended to him to keep track of his BP at home BP today: 175/114 P rior BP: 135/94 (07/05/2021) His updated medication list for this problem includes: Amlodipine 10 Mg Tablet (Amlodipine) ..... Take 1 tablet by mouth once a day Carvedilol 6.25 Mg Tablet (Carvedilol) ..... Take 1 tablet by mouth twice a day Wilbur Elliott MD Cardiology:Will repe at an echo to see where his heart function is and also renal artery duplex to check his kidneys Wilbur Elliott MD Cardiology: E F 45% on cath 02/2021. Continues on coreg. Bhavna Robin NP Cardiology: R esolved since CABG save for some tingling and numbness over his sternal incision site. Bhavna Robin NP Cardiology: H is updated medication list for this problem includes: Amlodipine 10 Mg Tablet (Amlodipine) ..... Take 1 tablet by mouth once a day Carvedilol 6.25 Mg Tablet (Carvedilol) ..... Take 1 tablet by mouth twice a day BP today: 135/94 P rior BP: 120/80 (04/06/2021) Bhavna Robin NP Cardiology: H e underwent bypass and has done quite well. He deferred on cardiac rehab because of his work schedule. He exerts himself regularlt at work without trouble. Bhavna Robin NP Cardiology: P t still smoking. Advised to stop smoking again. 1PPW. Bhavna Robin NP Cardiology: L ast LDL 31. His updated medication list for this problem includes: Rosuvastatin 20 Mg Tablet (Rosuvastatin) ..... Take by mouth once a day Cholestyramine (with Sugar) 4 Gram Powder (Cholestyramine (with sugar)) Bhavna Robin NP Cardiology:He underw ent bypass and has done quite well but needs cardiac rehab. Wilbur Elliott MD Cardiology:Pt still smoking. Advised to stop smoking again. Wilbur Elliott MD Cardiology: H is updated medication list for this problem includes: Amlodipine 10 Mg Tablet (Amlodipine) ..... Take 1 tablet by mouth once a day Carvedilol 6.25 Mg Tablet (Carvedilol) ..... Take 1 tablet by mouth twice a day BP today: 120/80 P rior BP: 179/109 (03/08/2021) Wilbur Elliott MD Cardiology: C hest pressure occuring with exertion with some SOB and diaphoresis. His symptoms are fairly typical for ischemia. I think that because his chest pain is occurring with exertion and his EKG is somewhat abnormal, we will proceed straight to a cardiac cath. Wilbur Elliott MD Cardiology: T he Patient was reencouraged to stop smoking. Wilbur Elliott MD Date Name LIPID PANEL Renal Artery Duplex Complete Echo BASIC METABOLIC PANE L W/EGFR LIPID PANEL Cardiac Rehab PROTHROMBIN TIME WIT H INR LIPID PANEL CBC (INCLUDES DIFF/P LT) BASIC METABOLIC PANE L W/EGFR PROTHROMBIN TIME WIT H INR LIPID PANEL CBC (INCLUDES DIFF/P LT) BASIC METABOLIC PANE L W/EGFR Cardiac Cath - Left - GC HISTORY OF PROCEDURES Procedure Date Procedure Name Provider Procedure Notes S tatus EKG Wilbur Elliott MD completed EKG Wilbur Elliott MD completed EKG Wilbur Elliott MD completed
--- OUTSIDE RECORDS SUMMARY | 2024-06-06 03:26 | XMS_ITS | Clinical Summary ---
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 Gender Identity Not on file Sexual Orientation Not on file Plan of Treatment Health Maintenance Due Date Last Done Comments Hepatitis C Virus (HCV) Screening 1965 TdaP Immunization 1965 Hepatitis B Immunization (1 of 3 - 19+ 3-dose series) 1984 Colonoscopy 2010 Colorectal Cancer Screening 2010 Cologuard 10/28/2015 Immunochemical Fecal Occult Blood 10/28/2015 Pneumococcal Immunization (5 0+ years) (1 of 1 - PCV) 10/28/2015 Zoster Immunization (1 of 2) 10/28/2015 PSA Discussion 2020 Influenza Immunization (#1) 2024 SARS-COV-2 Immunization ( - season) 2024 Respiratory Syncytial Virus (RSV) Immunization (Adult) (1 - 1-dose 75+ series) 2040 Meningococcal Immunization (ACWY) Aged Out No longer eligible based on patient's age to complete this topic Pneumococcal Immunization Combined Aged Out No longer eligible based on patient's age to complete this topic Rotavirus Immunization Aged Out No lo nger eligible based on patient's age to complete this topic
--- OUTSIDE RECORDS SUMMARY | 2024-06-06 03:26 | XMS_ITS | Encounter Summary ---
Author Organization [facility] Address [address] [place] [address] Care Team Providers Care Director Of Home Care Hospice Name Role Phone Unavailable Primary Care Provider Unavailabl e Encounter Details Date Type Department Care Team (Late st Contact Info) Description 05/30/2020 1:30 PM CHILDCARE CENTER ADMINISTRATOR Rapid Evaluation [facility] Mobile Testing [address] [place] [id number] Social History Tobacco Use Types Packs/Day Years Used Date Smoking Tobacco: Never Assessed Sex and Gender Information Value Date Recorded Sex Assigned at Not on file Legal Sex Male 12:56 PM CHILDCARE CENTER ADMINISTRATOR Gender Identity Not on file Sexual Orientation Not on file documented as of this encounter Plan of Treatment Not on file documented as of this encounter Visit Diagnoses Not on filedocumented in this encounter
--- OUTSIDE RECORDS SUMMARY | 2024-06-06 03:27 | XMS_ITS | Data Portability ---
Author Organization [facility] Address [address] [place] [address] Care Team Providers Care Detective Investigator Name Role Phone ASHLEY BROCK Primary Care Provider Assessment No assessment recorded. Plan of Treatment Reminders Order Date Submit Date Provider Last Modified By Organization Details Last Modified Time Details Appointments None recorded. Lab PSA, serum or plasma 2015 016 CALEB CEDENO, [facility], [facility] [address], [place], [address], 6 06:14:52 TSH, serum or plasma 2015 016 CALEB CEDENO, [facility], [facility] [address], [place], [address], 06:14:56 CBC w/ auto diff 2015 016 CALEB CEDENO, [facility], [address] [address], [place], [address], 6 05:16:40 CMP, serum or plasma 2015 016 CALEB CEDENO, [facility], [facility] [address], [place], [address], 6 06:14:54 lipids, total, serum 2015 [address] [facility], [facility] [address], [place], [address], 7 21:08:30 amylase + lipase, serum 2017 018 marc CEDENO, [address] [facility], [address], [place], [address], 8 15:33:25 CBC w/ auto diff 2017 018 CALEB PETER, [address] [place] [address], [address], [place], [address], 8 20:09:42 CMP, serum or plasma 2017 018 CALEB CEDENO, [address] [place] [address], [address], [place], [address], 8 20:48:13 Referral dentist referral 2016 017 [email or web address] [facility], [address] [place], [address], 7 13:03:20 Procedures None recorded. Surgeries None recorded. Imaging None recorded. Medication Orders Wellbutri n SR 150 mg tablet, 12 hr sustained -release 2015 016 [facility], [facility] [place], [place], [id number], 6 10:55:20 amlodipin e 10 mg tablet 2015 016 [facility] #31080, [address] [place], [place], [id number], 6 10:55:11 [place] 7.5 mg-325 mg tablet 2016 017 [facility] #96743, [address] [place], [place], [id number], 7 17:26:10 clonidine HCl 0.1 mg tablet 2016 017 [facility], [address] [place] [address], [id number], 7 15:47:30 Norvasc 10 mg tablet 2016 017 [facility], [address] [place] [address], [id number], 7 15:47:16 clonidine HCl 0.1 mg tablet 2016 017 [facility], [address] [place] [address], [id number], 7 15:52:45 [place] 7.5 mg-325 mg tablet 2016 017 [facility] #45910, [address] [place] [address], [id number], 7 09:46:54 prednison e 20 mg tablet 2016 017 [facility], [address] [place] [address], [id number], 7 17:10:57 [place] 7.5 mg-325 mg tablet 2017 018 [facility], [address] [place] [address], [id number], 8 15:32:15 Norvasc 10 mg tablet 2017 018 [facility], [address] [place] [address], [id number], 8 17:13:25 losartan 50 mg tablet 2017 018 INTERFACE [facility] #59419, [address] [place], [place], [id number], 8 17:13:25 clonidine HCl 0.1 mg tablet 2017 018 INTERFACE [facility] #70412, [address] [place], [place], [id number], 8 17:13:20 Patient TargetsNo targets recorded. Patient Instructions Encounter Date Encounter Id Patient Instructions Last Modified By Organization Details Last Modified Time 03/01/2016 [id number] crohn's disease: care instructions mmanderson Not available 03/01/2016 10:55:11 04/07/2017 [id number] tooth and gum pain: care instructions clowry Not available 04/07/2017 16:30:54 learning about high blood pressure clowry Not available 04/07/2017 16:30:54 high blood pressure: care instructions clowry Not available 04/07/2017 16:30:54 crohn's disease: care instructions clowry Not available 04/07/2017 16:30:54 05/14/2017 [id number] learning about high blood pressure clowry Not available 05/14/2017 17:32:29 crohn's disease: care instructions clowry Not available 05/14/2017 17:32:29 07/09/2017 [id number] learning about high blood pressure campadu Not available 07/09/2017 15:31:56 crohn's disease: care instructions campadu Not available 07/09/2017 15:31:57 12/31/2017 [id number] deciding about using medicines to quit smoking campadu Not available 12/31/2017 17:13:13 Quitting Tobacco: Care Instructions campadu Not available 12/31/2017 17:13:13 learning about high blood pressure campadu Not available 12/31/2017 17:13:13 crohn's disease: care instructions campadu Not available 12/31/2017 17:13:13 Reason for Referral Dentist Referral for Toothac he tooth ache Referring Physician: Hemant Lopez, Internal Medicine, Encounter Date: 04/07/2017 Results Created Date Observation Date Name Description Value Unit Range Abnormal Flag Note LastModifiedBy Organization Detail LastModifiedTime 03/01/20 16 03/02/2016 CBC w/ auto diff WBC 5.2 x10e3 /uL 3.4-10 .8 Not Available [facility] (Lab) [address] [place], [address], 03/02/2016 05:16:40 03/01/20 16 03/02/2016 CBC w/ auto diff RBC 3.69 x10e6 /uL 4.14-5 .80 low Not Available [facility] (Lab) [address] [place], [address], 03/02/2016 05:16:40 03/01/20 16 03/02/2016 CBC w/ auto diff hemoglobin 11.6 g/dL 12.6-1 7.7 low Not Available [facility] (Lab) [address], [place], [address], 03/02/2016 05:16:40 03/01/20 16 03/02/2016 CBC w/ auto diff hematocrit 36.3 % 37.5-5 1.0 low Not Available [facility] (Lab) [address], [place], [address], 03/02/2016 05:16:40 03/01/20 16 03/02/2016 CBC w/ auto diff MCV 98 fL 79-97 high Not Available [facility] (Lab) [address], [place], [address], 03/02/2016 05:16:40 03/01/20 16 03/02/2016 CBC w/ auto diff MCH 31.4 pg 26.6-3 3.0 Not Available [facility] (Lab) [address] [place], [address], 03/02/2016 05:16:40 03/01/20 16 03/02/2016 CBC w/ auto diff MCHC 32.0 g/dL 31.5-3 5.7 Not Available [facility] (Lab) [address] [place], [address], 03/02/2016 05:16:40 03/01/20 16 03/02/2016 CBC w/ auto diff RDW 15.4 % 12.3-1 5.4 Not Available [facility] (Lab) [address] [place], [address], 03/02/2016 05:16:40 03/01/20 16 03/02/2016 CBC w/ auto diff platelets 384 x10e3 /uL 150-37 9 high Not Available [facility] (Lab) [address] [place], [address], 03/02/2016 05:16:40 03/01/20 16 03/02/2016 CBC w/ auto diff neutrophils 64 % Not Available [facility] (Lab) [address] [place], [address], 03/02/2016 05:16:40 03/01/20 16 03/02/2016 CBC w/ auto diff lymphs 29 % Not Available [facility] (Lab) [address] [facility], [place], [address], 03/02/2016 05:16:40 03/01/20 16 03/02/2016 CBC w/ auto diff monocytes 7 % Not Available [facility] ([facility]) [address] [place], [address], 03/02/2016 05:16:40 03/01/20 16 03/02/2016 CBC w/ auto diff eos 0 % Not Available [facility] (Lab) [address] [place], [address], 03/02/2016 05:16:40 03/01/20 16 03/02/2016 CBC w/ auto diff basos 0 % Not Available [facility] (Lab) [address] [place], [address], 03/02/2016 05:16:40 03/01/20 16 03/02/2016 CBC w/ auto diff immature cells Not Available [facility] (Lab) [address] [place], [address], 03/02/2016 05:16:40 03/01/20 16 03/02/2016 CBC w/ auto diff neutrophils (absolute) 3.3 x10e3 /uL 1.4-7. 0 Not Available [facility] [address], [place], [address], 03/02/2016 05:16:40 03/01/20 16 03/02/2016 CBC w/ auto diff lymphs (absolute) 1.5 x10e3 /uL 0.7-3. 1 Not Available [facility] (Lab) [address] [place], [address], 03/02/2016 05:16:40 03/01/20 16 03/02/2016 CBC w/ auto diff monocytes(ab solute) 0.4 x10e3 /uL 0.1-0. 9 Not Available [facility] (Lab) [address] [place], [address], 03/02/2016 05:16:40 03/01/20 16 03/02/2016 CBC w/ auto diff eos (absolute) 0.0 x10e3 /uL 0.0-0. 4 Not Available [facility] (Lab) [address] [place], [address], 03/02/2016 05:16:40 03/01/20 16 03/02/2016 CBC w/ auto diff baso (absolute) 0.0 x10e3 /uL 0.0-0. 2 Not Available [facility] (Lab) [address] [place], [address], 03/02/2016 05:16:40 03/01/20 16 03/02/2016 CBC w/ auto diff immature granulocytes 0 % Not Available [facility] (Lab) [address] [place], [address], 03/02/2016 05:16:40 03/01/20 16 03/02/2016 CBC w/ auto diff immature grans (abs) 0.0 x10e3 /uL 0.0-0. 1 Not Available [facility] (Lab) [address] [place], [address], 03/02/2016 05:16:40 03/01/20 16 03/02/2016 CBC w/ auto diff NRBC Not Available [facility] (Lab) [address] [facility], [place], [address], 03/02/2016 05:16:40 03/01/20 16 03/02/2016 CBC w/ auto diff hematology comments: Not Available [facility] (Lab) [address] [place], [address], 03/02/2016 05:16:40 03/01/20 16 03/02/2016 PSA, serum or plasm a prostate specific Ag, serum 0.5 NG/mL 0.0-4. 0 Janie ECLIA metho dolog y. . Accor ding to the Ameri can [employer]rolo gical Assoc iatio n, Serum PSA shoul d decre ase and remai n at undet ectab le level s after radic al prost atect jinny. The AUA defin es bioch emica l recur rence as an initi al PSA value 0.2 ng/mL or great er follo wed by a subse quent confi rmato ry PSA value 0.2 ng/mL or great er. Value s obtai oliverio with diffe rent assay metho ds or kits canno t be used inter hutson eably . Resul ts canno t be inter prete d as absol rachele evide nce of the prese nce or absen ce of odell rosa se. Not Available [facility] (Lab) [address] [place], [address], 03/02/2016 06:14:52 03/01/20 16 03/02/2016 CMP, serum or plasm a glucose, serum 98 mg/dL 65-[address] [facility] (Lab) [address] [place], [address], 03/02/2016 06:14:54 03/01/20 16 03/02/2016 CMP, serum or plasm a BUN 15 mg/dL 6-24 Not Available [facility] (Lab) [address] [place], [address], 03/02/2016 06:14:54 03/01/20 16 03/02/2016 CMP, serum or plasm a creatinine, serum 1.19 mg/dL 0.76-1 .27 Not Available [facility] (Lab) [address] [place], [address], 03/02/2016 06:14:54 03/01/20 16 03/02/2016 CMP, serum or plasm a eGFR if nonafricn AM 71 mL/mi n/1.7 3 >59 Not Available [facility] (Lab) [address] [facility], [place], [address], 03/02/2016 06:14:54 03/01/20 16 03/02/2016 CMP, serum or plasm a eGFR if 82 mL/mi n/1.7 3 >59 Not Available [facility] (Lab) [address] [facility], [place], [address], 03/02/2016 06:14:54 03/01/20 16 03/02/2016 CMP, serum or plasm a BUN/creatini ne ratio 13 9-20 Not Available [facility] (Lab) [address] [facility], [place], [address], 03/02/2016 06:14:54 03/01/20 16 03/02/2016 CMP, serum or plasm a sodium, serum 144 mmol/ L 134-14 4 Eff ectiv e Octob er 2015 the refer ence inter maria [place]ug[place] for Sodiu m, Serum will be hutson ing to: 136 - 144 Not Available [facility] (Lab) [address] [place], [address], 03/02/2016 06:14:54 03/01/20 16 03/02/2016 CMP, serum or plasm a potassium, serum 3.5 mmol/ L 3.5-5. 2 Eff ectiv e Octob er 2015 the refer ence inter maria [place] for Potas sium, Serum will be hutson ing to: 0 - 7 days 3.7 - 5.2 8 - 30 days 3.7 - 6.4 1 - 6 month s 3.8 - 6.0 7 month s - 1 year 3.8 - 5.3 >1 year 3.5 - 5.2 Not Available [facility] (Lab) [address] [place], [address], 03/02/2016 06:14:54 03/01/20 16 03/02/2016 CMP, serum or plasm a chloride, serum 109 mmol/ L 97-108 high Eff ectiv e Octob er 2015 the refer ence inter maria [place] for Chlor spike, Serum will be hutson ing to: 97 - 106 Not Available [facility] (Lab) [address] [facility], [place], [address], 03/02/2016 06:14:54 03/01/20 16 03/02/2016 CMP, serum or plasm a carbon dioxide, total 19 mmol/ L 18-29 Not Available [facility] (Lab) [address] [place], [address], 03/02/2016 06:14:54 03/01/20 16 03/02/2016 CMP, serum or plasm a calcium, serum 8.5 mg/dL 8.7-10 .2 low Not Available [facility] (Lab) [address] [place], [address], 03/02/2016 06:14:54 03/01/20 16 03/02/2016 CMP, serum or plasm a protein total serum 6.3 g/dL 6.0-8. 5 Not Available [facility] (Lab) [address] [place], [address], 03/02/2016 06:14:54 03/01/20 16 03/02/2016 CMP, serum or plasm a albumin, serum 3.8 g/dL 3.5-5. 5 Not Available [facility] (Lab) [address] [place], [address], 03/02/2016 06:14:54 03/01/20 16 03/02/2016 CMP, serum or plasm a globulin total 2.5 g/dL 1.5-4. 5 Not Available [facility] (Lab) [address] [place], [address], 03/02/2016 06:14:54 03/01/20 16 03/02/2016 CMP, serum or plasm a A/G ratio 1.5 1.1-2. 5 Not Available [facility] (Lab) [address], [place], [address], 03/02/2016 06:14:54 03/01/20 16 03/02/2016 CMP, serum or plasm a bilirubin total <0.2 mg/dL 0.0-1. 2 Not Available [facility] (Lab) [address] [facility], [place], [address], 03/02/2016 06:14:54 03/01/20 16 03/02/2016 CMP, serum or plasm a alkaline phosphatase ser 83 IU/L 39-[address] [facility] ([facility]) [address], [place], [address], 03/02/2016 06:14:54 03/01/20 16 03/02/2016 CMP, serum or plasm a AST (SGOT) 22 IU/L 0-40 Not Available [facility] ([facility]) [address] [place], [address], 03/02/2016 06:14:54 03/01/20 16 03/02/2016 CMP, serum or plasm a ALT (SGPT) 15 IU/L 0-44 Not Available [facility] (Lab) [address] [place], [address], 03/02/2016 06:14:54 03/01/20 16 03/02/2016 lipid panel w/ direc t LDL, serum cholesterol, total 114 mg/dL 100-19 9 Not Available [facility] (Lab) [address] [place], [address], 03/02/2016 06:14:55 03/01/20 16 03/02/2016 lipid panel w/ direc t LDL, serum triglyceride s 86 mg/dL 0-149 Not Available [facility] [address] [place], [address], 03/02/2016 06:14:55 03/01/20 16 03/02/2016 lipid panel w/ direc t LDL, serum HDL cholesterol 46 mg/dL >39 Accor ding to ATP-I II Guide lines , HDL-C >59 mg/dL is consi dered a negat luciano risk facto r for CHD. Not Available [facility] (Lab) [address] [place], [address], 03/02/2016 06:14:55 03/01/20 16 03/02/2016 lipid panel w/ direc t LDL, serum VLDL cholesterol ed 17 mg/dL 5-[address] [facility] ([facility]) [address] [place], [address], 03/02/2016 06:14:55 03/01/20 16 03/02/2016 lipid panel w/ direc t LDL, serum LDL cholesterol calc 51 mg/dL 0-[address] [facility] ([facility]) [address] [facility], [place], [address], 03/02/2016 06:14:55 03/01/20 16 03/02/2016 lipid panel w/ direc t LDL, serum lipid calculation Not Available [facility] [address] [facility], [place], [address], 03/02/2016 06:14:55 03/01/20 16 03/02/2016 TSH, serum or plasm a TSH 1.490 uIU/m L 0.450- 4.500 Not Available [facility] (Lab) [address] [place], [address], 03/02/2016 06:14:56 07/09/19 18 07/09/2017 CBC w/ auto diff WBC 7.4 K/uL 3.4-10 .8 Not Available [facility] (Lab) [address] [place], [address], 07/09/2017 20:09:42 07/09/19 18 07/09/2017 CBC w/ auto diff red blood count 4.0 M/uL 4.5-6. 3 low Not Available [facility] (Lab) [address] [place], [address], 07/09/2017 20:09:42 07/09/19 18 07/09/2017 CBC w/ auto diff hemoglobin 12.2 g/dL 13.5-1 7.5 low Not Available [facility] (Lab) [address] [place], [address], 07/09/2017 20:09:42 07/09/19 18 07/09/2017 CBC w/ auto diff hematocrit 37.7 % 40.0-5 2.0 low Not Available [facility] (Lab) [address] [place], [address], 07/09/2017 20:09:42 07/09/19 18 07/09/2017 CBC w/ auto diff MCV 95 fL 80-95 Not Available [facility] (Lab) [address] [place], [address], 07/09/2017 20:09:42 07/09/19 18 07/09/2017 CBC w/ auto diff MCH 31 pg 27-32 Not Available [facility] (Lab) [address] [place], [address], 07/09/2017 20:09:42 07/09/19 18 07/09/2017 CBC w/ auto diff MCHC 32 g/dL 32-36 Not Available [facility] (Lab) [address] [place], [address], 07/09/2017 20:09:42 07/09/19 18 07/09/2017 CBC w/ auto diff platelets 382 K/uL 155-37 9 high Not Available [facility] (Lab) [address] [place], [address], 07/09/2017 20:09:42 07/09/19 18 07/09/2017 CBC w/ auto diff RDW 14.5 % 11.5-1 4.5 Not Available [facility] (Lab) [address], [place], [address], 07/09/2017 20:09:42 07/09/19 18 07/09/2017 CBC w/ auto diff MPV 8.7 fL 8.9-12 .7 low Not Available [facility] (Lab) [address] [place], [address], 07/09/2017 20:09:42 07/09/19 18 07/09/2017 CBC w/ auto diff neutrophils absolute 5.1 K/uL 1.4-7. 0 Not Available [facility] (Lab) [address] [place], [address], 07/09/2017 20:09:42 07/09/19 18 07/09/2017 CBC w/ auto diff lymphs (absolute) 1.7 K/uL 0.7-3. 1 Not Available [facility] (Lab) [address] [place], [address], 07/09/2017 20:09:42 07/09/19 18 07/09/2017 CBC w/ auto diff monocytes (absolute) 0.6 K/uL 0.1-0. 9 Not Available [facility] (Lab) [address] [place], [address], 07/09/2017 20:09:42 07/09/19 18 07/09/2017 CBC w/ auto diff eos (absolute) 0.0 K/uL 0.0-0. 4 Not Available [facility] (Lab) [address] [place], [address], 07/09/2017 20:09:42 07/09/19 18 07/09/2017 CBC w/ auto diff baso (absolute) 0.0 K/uL 0.1-0. 3 low Not Available [facility] (Lab) [address] [place], [address], 07/09/2017 20:09:42 07/09/19 18 07/09/2017 CBC w/ auto diff neut % 68.5 % 40.0-7 4.0 Not Available [facility] (Lab) [address], [place], [address], 07/09/2017 20:09:42 07/09/19 18 07/09/2017 CBC w/ auto diff lymphs % 22.3 % 14.0-4 6.0 Not Available [facility] (Lab) [address] [place], [address], 07/09/2017 20:09:42 07/09/19 18 07/09/2017 CBC w/ auto diff mono % 8.4 % 4.0-12 .0 Not Available [facility] (Lab) [address] [place], [address], 07/09/2017 20:09:42 07/09/19 18 07/09/2017 CBC w/ auto diff eos % 1 % <=5 Not Available [facility] (Lab) [address] [place], [address], 07/09/2017 20:09:42 07/09/19 18 07/09/2017 CBC w/ auto diff baso % 0.3 % 0.1-1. 1 Not Available [facility] (Lab) [address] [place], [address], 07/09/2017 20:09:42 07/09/19 18 07/09/2017 lipas e, serum or plasm a lip 43 U/L 7-60 Not Available [facility] (Lab) [address] [place], [address], 07/09/2017 20:47:43 07/09/19 18 07/09/2017 CMP, serum or plasm a glucose, serum 122 mg/dL 65-99 high Not Available [facility] (Lab) [address] [place], [address], 07/09/2017 20:48:13 07/09/19 18 07/09/2017 CMP, serum or plasm a BUN 12 mg/dL 8-26 Not Available [facility] (Lab) [address], [place], [address], 07/09/2017 20:48:13 07/09/19 18 07/09/2017 CMP, serum or plasm a creatinine, serum 1.10 mg/dL 0.50-1 .40 Not Available [facility] (Lab) [address] [place], [address], 07/09/2017 20:48:13 07/09/19 18 07/09/2017 CMP, serum or plasm a BUN/creatnin e ratio 10.9 Not Available [facility] (Lab) [address], [place], [address], 07/09/2017 20:48:13 07/09/19 18 07/09/2017 CMP, serum or plasm a sodium, serum 143.0 mEq/L 136.0- 144.0 Not Available [facility] (Lab) [address] [place], [address], 07/09/2017 20:48:13 07/09/19 18 07/09/2017 CMP, serum or plasm a potassium, serum 4.3 mmol/ L 3.5-5. 3 Not Available [facility] (Lab) [address] [place], [address], 07/09/2017 20:48:13 07/09/19 18 07/09/2017 CMP, serum or plasm a chloride, serum 99 mmol/ l 101-11 1 low Not Available [facility] (Lab) [address] [place], [address], 07/09/2017 20:48:13 07/09/19 18 07/09/2017 CMP, serum or plasm a carbon dioxide total 32.1 mmol/ L 21.0-3 2.0 high Not Available [facility] (Lab) [address] [place], [address], 07/09/2017 20:48:13 07/09/19 18 07/09/2017 CMP, serum or plasm a aniongp 16.0 mmol/ L Not Available [facility] (Lab) [address], [place], [address], 07/09/2017 20:48:13 07/09/19 18 07/09/2017 CMP, serum or plasm a calcium, serum 10.0 mg/dL 8.2-10 .0 Not Available [facility] (Lab) [address] [place], [address], 07/09/2017 20:48:13 07/09/19 18 07/09/2017 CMP, serum or plasm a total protein 7.6 g/dL 6.7-8. 2 Not Available [facility] (Lab) [address] [place], [address], 07/09/2017 20:48:13 07/09/19 18 07/09/2017 CMP, serum or plasm a albumin, serum 4.2 g/dL 3.5-5. 5 Not Available [facility] (Lab) [address] [place], [address], 07/09/2017 20:48:13 07/09/19 18 07/09/2017 CMP, serum or plasm a agratio 1.2 Not Available [facility] (Lab) [address] [place], [address], 07/09/2017 20:48:13 07/09/19 18 07/09/2017 CMP, serum or plasm a bilt 0.2 mg/dL 0.2-1. 0 Not Available [facility] (Lab) [address] [place], [address], 07/09/2017 20:48:13 07/09/19 18 07/09/2017 CMP, serum or plasm a AST 14.0 U/L 10.0-4 2.0 Not Available [facility] (Lab) [address] [place], [address], 07/09/2017 20:48:13 07/09/19 18 07/09/2017 CMP, serum or plasm a ALT 23.0 U/L 10.0-6 0.0 Not Available [facility] (Lab) [address] [place], [address], 07/09/2017 20:48:13 07/09/19 18 07/09/2017 CMP, serum or plasm a alk phos 113.0 IU/L 42.0-1 21.0 Not Available [facility] (Lab) [address] [place], [address], 07/09/2017 20:48:13 07/09/19 18 07/09/2017 CMP, serum or plasm a osmol 286.0 mOsm/ L 275.0- 301.0 Not Available [facility] (Lab) [address] [place], [address], 07/09/2017 20:48:13 07/09/19 18 07/09/2017 CMP, serum or plasm a eGFR, AM 91 m/lmi n/1.7 3_m >=60 Not Available [facility] (Lab) [address] [place], [address], 07/09/2017 20:48:13 07/09/19 18 07/09/2017 CMP, serum or plasm a eGFR, non- AM 75 mL/mi n/1.7 3/m >=60 Not Available [facility] (Lab) [address] [facility], [place], [address], 07/09/2017 20:48:13 07/09/19 18 07/09/2017 amyla se, serum or plasm a gianni 156.0 U/L 36.0-1 28.0 high Not Available [facility] (Lab) [address] [place], [address], 07/09/2017 20:48:15 05/27/19 19 05/27/2018 CT, head + brain , w/o contr ast No observ ation record ed. [address] [place], [address], 06/01/2018 18:44:25 05/27/19 19 05/27/2018 XR, chest No observ ation record ed. [address] [place], [address], 06/03/2018 18:57:01 07/07/19 19 07/07/2018 CT, abdom en + pelvi s, w/ contr ast No observ ation record ed. [email or web address] [id number] Not Available 2018 11:26:57 Result Notes None recorded. Problems Name Problem SNOMED Code Status Onset Date Resolution Date Notes Provider Name and Address Organization Details Recorded Time Crohn's disease 07868461 Active KAVITHA Ortiz Attn: Accountin g,[address] [facility], [place], [address], [facility] 6 10:55:10 Essential hypertension 13933800 Active KAVITHA Ortiz Attn: Accountin g,[address] [facility], [place], [address], [facility] 6 10:55:10 Tobacco dependence syndrome 26351127 Active KAVITHA Ortiz Attn: Accountin g,[address] [facility], [place], [address], [facility] 6 10:55:10 Problem Notes None recorded. Procedures Surgical History None recorded. Imaging Results Imaging Date Name Status LastModified by [facility] Details LastModified Time 05/27/2018 CT, head + brain, w/o contrast completed [address] [place], [address], 06/01/2018 18:44:25 05/27/2018 XR, chest completed [address] [place], [address], 06/03/2018 18:57:01 07/07/2018 CT, abdomen + pelvis, w/ contrast completed [email or web address] Information not available 08/07/2018 11:26:57 Procedure Notes None recorded. Medical Equipment None Reported. Allergies Allergen ID Allergen Name Allergen Category Reaction Reaction Severity Criticality Documentation Date Start Date Code Code System Note Provider Name and Address Organization Details Recorded Time 10675 Detrol medicatio n rash Not available Not available 03/01/2016 72626 1 RxNorm KAVITHA Ortiz Attn: Sheryl fox,[address] [facility], [place], [address], [place] - [place] 6 13:38:00 37825 Dilaudid medicatio n rash moderate Not available 03/01/20162006 07749 3 RxNorm KAVITHA Ortiz Attn: Sheryl fox,[address] [facility], [place], [address], [place] - [place] 6 10:33:48 Medications Name Sig Start Date Stop Date Status Note LastModified by Organization Details LastModified Time losartan 50 mg tablet Take 1 tablet every day by oral route as directed for 30 days. 2017 active Not Available Not Available Not Avai lable bupropion HCl SR 150 mg tablet,12 hr sustained-rele ase Take 1 tablet twice a day by oral route as directed for 30 days. active Not Available Not Available No t Available clonidine HCl 0.1 mg tablet Take 1 tablet twice a day by oral route before meals for 30 days. 2017 active Not Available Not Available Not Avai lable prednisone 10 mg tablet active Not Available Not Available No t Available cefuroxime axetil 250 mg tablet active Not Available Not Available Not Available sulfasalazine 500 mg tablet active Not Available Not Availabl e Not Available Norvasc 10 mg tablet Take 1 tablet every day by oral route before meals for 30 days. 2017 active Not Available Not Available Not Avai lable hydrocodone 5 mg-acetaminoph en 325 mg tablet active Not Available Not Available Not Available ondansetron HCl 8 mg tablet active Not Available Not Available Not Available prednisone 20 mg tablet Take 1 tablet every day by oral route as directed for 30 days. active Not Available Not Available No t Available prednisone 5 mg tablet active Not Available Not Available No t Available metronidazole 500 mg tablet active Not Available Not Availabl e Not Available azathioprine 50 mg tablet active Not Available Not Available Not Available amlodipine 5 mg tablet active Not Available Not Available No t Available ciprofloxacin 500 mg tablet active Not Available Not Availabl e Not Available hydrocodone 7.5 mg-acetaminoph en 325 mg tablet Take 1 tablet twice a day by oral route as directed for 30 days. active Not Available Not Available No t Available losartan 25 mg tablet active Not Available Not Available Not Available hydrochlorothi azide 25 mg tablet active Not Available Not Available Not Available levofloxacin 500 mg tablet active Not Available Not Availabl e Not Available methylpredniso lone 4 mg tablets in a dose pack active Not Available Not Available No t Available Humira Pen 40 mg/0.8 mL subcutaneous kit active Not Available Not Available Not Available Vitals Date Recorded Body height Body mass index (BMI) Body weight Respiratory rate Heart rate Body temperature Systolic blood pressure Diastolic blood pressure Provider Name and Address Organization Details Last Updated DateTime 7 167.64 cm 25.2 kg/m2 86116.4 1 g 20 /min 88 /min 98.4 [degF] 158 mm[Hg] 80 mm[Hg] Mary Anne Tuttle MA [place] - [place] 7 15:58:58 Date Recorded Body height Body mass index (BMI) Body weight Heart rate Respiratory rate Body temperature Systolic blood pressure Diastolic blood pressure Provider Name and Address Organization Details Last Updated DateTime 8 167.64 cm 23.7 kg/m2 44873.0 8 g 76 /min 19 /min 98.4 [degF] 144 mm[Hg] 80 mm[Hg] Mary Anne Tuttle MA [place] - [place] 8 15:05:55 Date Recorded Body height Body mass index (BMI) Body weight Respiratory rate Heart rate Body temperature Systolic blood pressure Diastolic blood pressure Provider Name and Address Organization Details Last Updated DateTime 8 167.64 cm 24.9 kg/m2 89173.2 2 g 20 /min 76 /min 98.4 [degF] 144 mm[Hg] 90 mm[Hg] Mary Anne Tuttle [place] - [place] 8 16:33:10 Date Recorded Body mass index (BMI) Heart rate Oxygen saturation Oxygen saturation in Arterial blood by Pulse oximetry Body temperature Respiratory rate Body weight Body height Systolic blood pressure Diastolic blood pressure Provider Name and Address Organization Details Last Updated DateTime 6 23 kg/m2 80 /min 98 % 98 % 98 [degF] 16 /min 17098.8 61284 g 167.64 cm 130 mm[Hg] 80 mm[Hg] Alek Logan MA [facility] 6 10:12:55 Date Recorded Body weight Body mass index (BMI) Body height Heart rate Respiratory rate Body temperature Systolic blood pressure Diastolic blood pressure Provider Name and Address Organization Details Last Updated DateTime 7 20416.7 8 g 25.8 kg/m2 167.64 cm 88 /min 18 /min 97.8 [degF] 210 mm[Hg] 120 mm[Hg] Mary Anne Tuttle MA [facility] 7 15:15:32 Social History Question Answer Notes LastModified by Organizat ion Details LastModified Time Tobacco Smoking Status Current Every Day Smoker Alek Logan MA null, [facility] 03/01/2016 10:16:27 What Is Your Level Of Alcohol Consumption? Moderate 1-2 Beer Nighlty Information not available 03/01/2016 Which Illicit Or Recreational Drugs Have You Used? Denies Hx. Cocaine Use...last Used 2 Months Information not available 03/01/2016 How Much Tobacco Do You Smoke? 0.5 PPD [email or web address] Information not available 03/01/2016 Sex: Unknown Functional Status None recorded. Mental Status None recorded. Family History Relationship Description Onset Age of this Age Resolved Age Notes LastModified by Organization Details LastModified Time Mother Diabetes mellitus [email or web address] Not available 03/01 10:36:43 Mother Essential hypertension [email or web address] Not available 10:36:43 Father Essential hypertension Father also has CA, pt do not know what kind? [email or web address] Not available 03/01/2016 10:36:43 Sister Diabetes mellitus Two sister s from DM [email or web address] Not available 03/01/2016 10:36:43 Medical History Condition Response Coronary Artery Disease N Other N Atrial Fibrillation N High Blood Pressure Y Thyroid Problems N Kidney or Bladder Problems N Depression N COPD N Blood Clots N GI Problems N Skin Problems N Anemia N Heart Attack (NC) N Diabetes N Anxiety Disorder N Muscle, Joint, or Bone Problems N Seizures/Epilepsy N Acid Reflux (GERD) N Cancer N Stroke N Allergies N Asthma N High Cholesterol N Hepatitis N Liver Disease N Headaches N Osteoporosis N Heart Failure N Past Encounters Encounter ID Performer Location Encounter Start Date Encounter Closed Date Diagnosis/Indication Diagnosis SNOMED-CT Code Diagnosis ICD10 Code Diagnosis Note [id number] Ashley BrockKAVITHA [facility] [address] [place] [address] 03/01/2016 09:40:50 03/01/2016 13:42:57 Crohn's disease 52688926 K50.90 Last hospitaliz ation October,. Stable under the care of Dr. Garrett Castrejon Essential hypertension 68839478 I10 130/80 Tobacco de pendence syndrome 12347867 F17.290 Adult heal th examination 906806190 Z00.00 [id number] Hemant Lopez MD [facility] [address] [place] [address] 04/07/2017 14:12:33 04/23/2017 10:40:28 Crohn's disease 93442437 K50.90 Essential hypertension 84063895 I10 Toothache 78004433 K08.8 9 Diabetes mellitus 595461 09 E11.9 Acute urin ryan tract infection 262124675 N39.0 Benign ess ential hypertension 5658767 I10 [id number] Hemant Lopez MD [facility] ([facility]ult[facility]) [address] [place] [address] 05/14/2017 15:24:39 05/14/2017 17:55:54 Essential hypertension 57466029 I10 Crohn's disease 94454880 K50.90 Crohn's di sease of colon 91278486 K50.10 Toothache 75163604 K08.8 9 [id number] Hemant Lopez MD [facility] ([facility]ult[facility]) [address] [place] [address] 07/09/2017 13:54:40 07/14/2017 11:18:42 Essential hypertension 72876288 I10 Crohn's disease 21852893 K50.90 Small prabha l obstruction 578402057 K56.609 Toothache 38103945 K08.8 9 [id number] Hemant Lopez MD [facility] ([facility]) [address] [place] [address] 12/31/2017 16:04:35 01/14/2018 11:35:41 Crohn's disease 49976571 K50.90 Essential hypertension 65910216 I10 Tobacco de pendence syndrome 17589189 F17.200 Benign ess ential hypertension 4947593 I10 Health Concerns Section Related Observation LastModified by Organization Detai ls LastModified Time None Recorded Concern Status LastModified by Organization Details LastModified Time None Recorded Advance Directives Directive None Recorded Payers Encounter Date Sequence Insurance Name Policy Number Policy Bridges Covered Member ID Bridges Member ID Guarantor Name 03/01/2016 1 [facility] (MEDICAID HMO) [id number] Cirilo Cali [id number] Cirilo Cali 04/07/[address] [facility] PRIOR TO 11/23/2020 (MEDICAID REPLACEMENT - HMO) Cirilo Cali [id number] Cirilo Cali 05/14/[address] [facility] PRIOR TO 11/23/2020 (MEDICAID REPLACEMENT - HMO) Cirilo Cali [id number] Cirilo Cali 07/09/[address] [facility] PRIOR TO 11/23/2020 (MEDICAID REPLACEMENT - HMO) Cirilo Cali [id number] Cirilo Cali 12/31/2017 1 *SELF PAY* [facility] tatyana Cali Notes Date Note Type Note Provider Name and Address Organization Details Recorded Time 03/01/2016 text/html Here to [facility]. KAVITHA Ortiz Attn: Accounting,[address] [place], [address], [facility] 03/01/2016 13:42:18 04/07/2017 text/html for follow up care recently discharged from hospital for crohns disease Has toothache and wants pain meds Hemant Lopez MD Attn: Accounting,[address] [place], [address], [facility] 04/07/2017 15:52:37 05/14/2017 text/html for follow up care for crohns disease and has pain Hemant Lopez MD Attn: Accounting,[address] [place], [address], [facility] 05/14/2017 17:10:57 07/09/2017 text/html for follow up care for recently for surgery for small bowel obstruction. Complaints of pain in the abdomen from surgery Hemant Lopez MD Attn: Accounting,[address] , [place], [address], [facility] 07/09/2017 15:35:03 12/31/2017 text/html for follow up care for crohns disease and states wants a letter to go back to work Hemant Lopez MD Attn: Accounting,[address] , [place], [address], [facility] 12/31/2017 17:13:18
--- OUTSIDE RECORDS SUMMARY | 2024-06-06 03:27 | XMS_ITS | Encounter Summary ---
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 Wilbur Elliott MD [address] [place] [address] Phone: tel: fax: [facility] (All Locations) Referral ID Status Reason Start Date Expiration Date V isits Requested Visits Authorized [id number] Closed Specialty Services Required 03/23/2021 04/22/2022 99 99 Encounter Details Date Type Department Care Team (Late st Contact Info) Description 04/26/2021 9:15 AM MILL WORK Office Visit [facility] Surgery [address] [address] [place] [address] Malathi Curry MD [address] [facility] [address] [place] [address] 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 Social History Tobacco Use Types Packs/Day Years Used Date Smoking Tobacco: Every Day Sex and Gender Information Value Date Recorded Sex Assigned at Not on file Legal Sex Male 12:12 PM MILL WORK Gender Identity Not on file Sexual Orientation Not on file documented as of this encounter Last Filed Vital Signs Vital Sign Reading Time Taken Comments Blood Pressure 130/76 04/26/2021 10:02 AM MILL WORK Pulse 81 04/26/2021 10:02 AM MILL WORK Temperature - - Respiratory Rate 14 04/26/2021 10:02 AM MILL WORK Oxygen Saturation 97% 04/26/2021 10:02 AM MILL WORK Inhaled Oxygen Concentration - - Weight 61.7 kg (136 lb) 04/26/2021 10:02 AM MILL WORK Height 170.2 cm (5' 7 ) 04/26/2021 10:02 AM MILL WORK Body Mass Index 21.3 04/26/2021 10:02 AM MILL WORK documented in this encounter Progress Notes * Gina Anne, DOMINIC - 04/26/2021 9:15 AM CST Cardiothoracic Surgery Office Visit Cirilo Cali 1965 -Reason for Visit: POV#1- 4 week follow up -Date of Surgical Procedure: 03/20/2021 -Surgical Procedure: Coronary artery bypass grafting x 2 (ANDERSON to LAD, saphenous vein graft to diagonal branch) Bilateral pectoralis major myofascial flaps, Sternal plating?? Doctors: Colton Rios Interval History: Mr. Cali is here for his 4 week follow-up status post CABG. Patient reports doing well at home and denies hospitalizations. He has already been back to see Cardiology. He is very active at home. He has mild soreness from his sternal incision. His incisions have all healed quite well. He is active walking around the house without any shortness of breath, angina or leg swelling.He is down to smoking 1 pack per week. 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 He has no acute complaints today and he is happy with how he is doing. HOME MEDICATIONS : acetaminophen (TYLENOL) 325 mg tablet albuterol (PROAIR RESPICLICK) 90 mcg/actuation inhaler aspirin 81 mg enteric coated tablet buPROPion XL (WELLBUTRIN XL) 150 mg 24 hr tablet carvediloL (COREG) 6.25 mg tablet cholestyramine (QUESTRAN) 4 gram packet clopidogreL (PLAVIX) 75 mg tablet docusate sodium (COLACE) 100 mg capsule ergocalciferol (VITAMIN D) 50,000 unit capsule hydrocortisone (ANUSOL-HC) 2.5 % rectal cream rosuvastatin (CRESTOR) 20 mg tablet No Active Allergies Vital Signs: Vitals BP 130/76 Pulse 81 Resp 14 Ht 170.2 cm (5' 7 ) Wt 61.7 kg (136 lb) SpO2 97% BMI 21.30 kg/m?? Physical Exam Constitutional: General: He is not in acute distress. Appearance: Normal appearance. He is normal weight. He is not ill-appearing. Cardiovascular: Rate and Rhythm: Normal rate and regular rhythm. Heart sounds: Normal heart sounds. No murmur heard. Pulmonary: Effort: Pulmonary effort is normal. Breath sounds: Normal breath sounds. Abdominal: General: There is no distension. Palpations: Abdomen is soft. Tenderness: There is no abdominal tenderness. Musculoskeletal: Right lower leg: No edema. Left lower leg: No edema. Skin: General: Skin is warm and dry. Comments: Sternum is stable to cough. Sternal incision is well approximated and healed. Right saph site healed Neurological: General: No focal deficit present. Mental Status: He is alert and oriented to person, place, and time. Tests Ordered: None Treatment Plan: Patient is doing well from a cardiac surgery standpoint. Patient follow back up with us in 3 months for 1 final check. Provided work release for patient to return to work tomorrow with no restrictions. 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 documented in this encounter Discontinued Medications Medication Sig Discontinue Reason Start Date End Da te oxyCODONE (ROXICODONE) 10 mg tabletIndications:Pain Take 1 tablet (10 mg total) by mouth every 4 (four) hours as needed for pain Therapy completed 03/25/2021 04/26/2021 furosemide (LASIX) 40 mg tablet Take 1 tablet (40 mg total) by mouth once for 1 dose Therapy completed 03/25/2021 04/26/2021 documented as of this encounter Orders Outpatient Referral Count Last Ordered Date Fir st Ordered Date AMB REFERRAL TO CARDIOTHORACIC SURGERY 1 documented in this encounter Care Teams Manager Interface Relationship Specialty Start Date End Date Hemant Lopez MD PCP - General 03/22/21 documented as of this encounter
--- OUTSIDE RECORDS SUMMARY | 2024-06-06 03:27 | XMS_ITS | Clinical Summary ---
Author Organization [facility] Office [place] Address [address] [place] [address] Care Team Providers Care Crew Lead Name Role Phone Hemant Lopez MD Primary Care Provider [phone] Allergies No known active allergies Medications ergocalciferol (VITAMIN D) 50,000 unit capsule Take 50,000 Units by mouth once a week Active carvediloL (COREG) 6.25 mg tablet Take 6.25 mg by mouth 2 (two) times a day with meals Active buPROPion XL (WELLBUTRIN XL) 150 mg 24 hr tablet Take 150 mg by mouth daily Active cholestyramine (QUESTRAN) 4 gram packet Take 1 packet by mouth 3 (three) times a day with meals Active hydrocortisone (ANUSOL-HC) 2.5 % rectal cream Insert into the rectum 2 (two) times a day Active albuterol (PROAIR RESPICLICK) 90 mcg/actuation inhaler Inhale 2 puffs every 6 (six) hours as needed for wheezing Active aspirin 81 mg enteric coated tabletIndications :Myocardial Reinfarction Prevention Take 1 tablet (81 mg total) by mouth daily 30 tablet 2 1 Active clopidogreL (PLAVIX) 75 mg tablet Take 1 tablet (75 mg total) by mouth daily 30 tablet 3 1 Active rosuvastatin (CRESTOR) 20 mg tablet Take 1 tablet (20 mg total) by mouth nightly 30 tablet 2 1 Active acetaminophen (TYLENOL) 325 mg tablet Take 2 tablets (650 mg total) by mouth every 6 (six) hours as needed for pain 30 tablet 1 Active docusate sodium (COLACE) 100 mg capsuleIndication s:constipation Take 1 capsule (100 mg total) by mouth 2 (two) times a day 60 capsule 1 Active Active Problems Problem Noted Date Diagnosed Date Coronary artery disease invo lving chemehuevi heart without angina pectoris 03/15/2021 Overview (03/19/2021): Added automatically from request for surgery [id number] Medical History Medical History Date Comments Hypertension Hyperlipidemia COPD (chronic obstructive pulmonary disease) (HC C) Crohn's colitis (CMS/HCC) (HCC) Tobacco abuse Social History Tobacco Use Types Packs/Day Years Used Date Smoking Tobacco: Every Day Sex and Gender Information Value Date Recorded Sex Assigned at Not on file Legal Sex Male 12:12 PM INTERLINE CLERK Gender Identity Not on file Sexual Orientation Not on file Obstetrics History Last Filed Vital Signs Vital Sign Reading Time Taken Comments Blood Pressure 130/76 04/26/2021 10:02 AM INTERLINE CLERK Pulse 81 04/26/2021 10:02 AM INTERLINE CLERK Temperature 37.2 ??C (98.9 ??F) 03/25/2021 7:58 AM CD T Respiratory Rate 14 04/26/2021 10:02 AM INTERLINE CLERK Oxygen Saturation 97% 04/26/2021 10:02 AM INTERLINE CLERK Inhaled Oxygen Concentration - - Weight 61.7 kg (136 lb) 04/26/2021 10:02 AM INTERLINE CLERK Height 170.2 cm (5' 7 ) 04/26/2021 10:02 AM INTERLINE CLERK Body Mass Index 21.3 04/26/2021 10:02 AM INTERLINE CLERK Plan of Treatment Not on file Medical Devices Implanted Type Area Pig Sticker Device Identifier Shelf Expiration Date Model / Serial / Lot [facility] 24-025-44 Titanium 1.8mm 8 Hole Sternal X Plate Bone Mini Sternotomy - [id number] Implanted:Qty: 3 on 03/20/2021 by Malathi Curry MD at [facility] N/A: [facility] - 09 / / [facility] [id number] Drill-Free Maxdrive 2.3mm 13mm Self Retaining Lock Sternal Screw - [id number] Implanted:Qty: 20 on 03/20/2021 by Malathi Curry MD at [facility] N/A: Sternum [facility] 24-023-13 - 91 / / [facility] 24-023-15 Drill-Free Maxdrive 2.3mm 15mm Self Retain Sternal Screw Bone - [id number] Implanted:Qty: 4 on 03/20/2021 by Malathi Curry MD at [facility] N/A: Sternum [facility] 24-023-15 - 91 / / Insurance Advance Directives For more information, please contact: [phone] * Full Code (Latest Code Status on File) Date Activated Date Inactivated Comments 03/16/2021 10:12 AM 03/25/2021 5:30 PM Care Teams Crew Lead Relationship Specialty Start Date End Date Hemant Lopez MD PCP - General 03/22/21
--- OUTSIDE RECORDS SUMMARY | 2024-06-06 03:27 | XMS_ITS | Referral Summary ---
Author Organization [facility] Office [place] Address [address] [place] [address] Care Team Providers Care Nurse Practitioner Manager Name Role Phone Hemant Lopez MD Primary Care Provider [phone] Allergies No known active allergies Medications ergocalciferol [...] (03/19/2021): Added automatically from request for surgery [id number] Social History Tobacco Use Types Packs/Day Years Used Date Smoking Tobacco: Every Day Sex and Gender Information Value Date Recorded Sex Assigned at Not on file Legal Sex Male 12:12 PM URGENT CARE PHYSICIAN Gender Identity Not on file Sexual Orientation Not on file Last Filed Vital Signs Vital Sign Reading Time Taken Comments Blood Pressure 130/76 04/26/2021 10:02 AM URGENT CARE PHYSICIAN Pulse 81 04/26/2021 10:02 AM URGENT CARE PHYSICIAN Temperature 37.2 ??C (98.9 ??F) 03/25/2021 7:58 AM CD T Respiratory Rate 14 04/26/2021 10:02 AM URGENT CARE PHYSICIAN Oxygen Saturation 97% 04/26/2021 10:02 AM URGENT CARE PHYSICIAN Inhaled Oxygen Concentration - - Weight 61.7 kg (136 lb) 04/26/2021 10:02 AM URGENT CARE PHYSICIAN Height 170.2 cm (5' 7 ) 04/26/2021 10:02 AM URGENT CARE PHYSICIAN Body Mass Index 21.3 04/26/2021 10:02 AM URGENT CARE PHYSICIAN Plan of Treatment Not on file Medical Devices Implanted Type Area Edge Polisher Device Identifier Shelf Expiration Date Model / Serial / Lot [facility] 24-025-44 Titanium 1.8mm 8 Hole Sternal X Plate Bone Mini Sternotomy - [id number] Implanted:Qty: 3 on 03/20/2021 by Maalthi Curry MD at [facility] N/A: Sternum [facility] 24-025-44 - 09 / / [facility] [id number] Drill-Free Maxdrive 2.3mm 13mm Self Retaining Lock Sternal Screw - [id number] Implanted:Qty: 20 on 03/20/2021 by Malathi Curry MD at [facility] N/A: Sternum [facility] 24-023-13 - 91 / / [facility] 24-023-15 Drill-Free Maxdrive 2.3mm 15mm Self Retain Sternal Screw Bone - [id number] Implanted:Qty: 4 on 03/20/2021 by Malathi Curry MD at [facility] N/A: Sternum [facility] 24-023-15 - 91 / / Insurance [facility] Advance Directives For more information, please contact: [phone] * Full Code (Latest Code Status on File) Date Activated Date Inactivated Comments 03/16/2021 10:12 AM 03/25/2021 5:30 PM Care Teams Nurse Practitioner Manager Relationship Specialty Start Date End Date Hemant Lopez MD PCP - General 03/22/21
--- OUTSIDE RECORDS SUMMARY | 2024-06-06 03:27 | XMS_ITS | Continuity of Care Document ---
Author Organization [place] - [facility] Personal [employer], [facility] [address] [facility] [place] [address] Care Team Providers Care Radius Grinder Name Role Phone SABINE LOONEY Primary Care Provider [phone] SABINE LOONEY Referring Provider EMY BERGERON Orthopedic Surgeon [facility] Laundry Operator PITER STOKES Clinical Lab Assistant Assessment Encounter Date Assessment Date Assessment LastModified by Organization Details LastModified Time 04/29/2024 04/29/2024 12/26/2023: PSA 0.61 A1C 5.9 B12 <159 Urine micro alb 34.0 VITD <12.8 Cr 1.26H TG 154 H/H 11.4/34.8, MCV 100.0 [email or web address] Not available 04/29/2024 16:44:31 Plan of Treatment Reminders Order Date Submit Date Provider Last Modified By Organization Details Last Modified Time Details Appointments Any 15 2024 01:30P Ashutosh magana MD Not available Not available Not available Lab vitamin D, 25-hydrox y, total, serum [address] (Lab), [address] [place], [address], 04/29/2024 17:07:35 glycohemo globin, total, blood [address] (Lab), [address] [place], [address], 04/29/2024 17:07:33 microalbu min, urine [address] (Lab), [address] [place], [address], 04/29/2024 17:07:33 lipid panel, serum [address] (Lab), [address] [place], [address], 04/29/2024 17:07:34 CBC w/ auto diff [address] (Lab), [address] [place], [address], 04/29/2024 17:07:34 TSH, serum or plasma [address] (Lab), [address] [place], [address], 04/29/2024 17:07:34 CMP, serum or plasma [address] (Lab), [address] [place], [address], 04/29/2024 17:07:35 Referral pulmonolo gist referral 2023 024 [email or web address] Piter Stokes MD, [address] [place], [address], 05/03/2024 10:24:12 gastroent erologist referral - Please call patient to schedule. 2023 KARAN Escobedo MD, [address] [place], [address], 05/03/2024 10:58:21 cardiolog ist referral 2023 024 [email or web address] [place], [address], [facility] [address], [place], [address], 05/03/2024 10:24:11 Procedures None recorded. Surgeries None recorded. Imaging None recorded. Medication Orders albuterol sulfate HFA 90 mcg/actua tion aerosol inhaler 2023 024 [facility], [address] [place] [address], [address], 04/29/2024 17:07:19 cyanocoba jailene (vit B-12) 1,000 mcg/mL injection solution [address] [place] [address] Pharmacy [address], [address] [place] [address], [address], 05/10/2024 09:47:15 Patient TargetsNo targets recorded. Patient InstructionsNo instructions recorded. Reason for Referral Laundry Operator Referral for Co ronary arteriosclerosis Referring Physician: Sabine Looney, Internal Medicine, Encounter Date: 04/29/2024 Operations And Maintenance Manager Referral for Crohn's disease Please call patient to schedule. Referring Physician: Sabine Looney, Internal Medicine, Encounter Date: 04/29/2024 Clinical Lab Assistant Referral for C hronic obstructive pulmonary disease Referring Physician: Sabine Looney, Internal Medicine, Encounter Date: 04/29/2024 Results Created Date Observation Date Name Description Value Unit Range Abnormal Flag Note LastModifiedBy Organization Detail LastModifiedTime 04/02/20 24 04/01/2024 XR, chest , 1 view No observ ation record ed. [email or web address] [facility] [address] [place], [address], 05/03/2024 15:57:43 05/11/20 24 05/11/2024 imagi ng/di agnos tic resul t No observ ation record ed. [facility] [address] [place], [address], 05/11/2024 21:47:00 Result Notes None recorded. Problems Name Problem SNOMED Code Status Onset Date Resolution Date Notes Provider Name and Address Organization Details Recorded Time Cobalamin deficienc y 154698048 Active 2021 Not Available [facility] 3 03:14:45 Inflammat ory bowel disease 57266150 Completed Not Available [facility] 3 00:45:36 Bronchiti s 09591665 Completed 201911/08/2020 Not Available [facility] 3 00:45:36 Crohn's disease 29755254 Active 2019 Not Available [facility] 3 03:14:45 Vitamin D deficienc y 51099503 Active 2021 Not Available [facility] 3 03:14:45 Hemorrhoi ds 67787911 Active 2022 Not Available [facility] 3 03:14:45 Prediabet es 673124499 Active 2022 Not Available [facility] 3 03:14:45 Iron deficienc y anemia 82018492 Active 2022 Not Available [facility] 3 03:14:45 Hyperlipi demia 02572856 Active 2022 Not Available [facility] 3 03:14:45 Essential hypertens ion 95458354 Active 2022 Not Available [facility] 3 03:14:45 Smoker 66371390 Active 2022 Not Available [facility] 3 03:14:45 Severe chronic obstructi ve pulmonary disease 242590526 Active 2022 Not Available [facility] 3 03:14:45 Full thickness rotator cuff tear 786264684 Active 2022 Not Available [facility] 3 03:14:45 Coronary arteriosc lerosis 58821614 Active 2023 Sabine desai MD [address] [facility], [facility] [address], [place], [address] , [facility] 4 15:52:15 Serum vitamin B12 below reference range 553252158 Active 2023 Sabine desai MD [address], [facility] [address], [place], [address] , [facility] 4 16:17:05 Osteoarth ritis of left hip joint 28849247051 9108 Active 2023 Felicia James null, [facility] 4 14:46:58 Pain of left hip joint 68052540748 9100 Active 2023 Sabine desai MD [address], [facility] [address], [place], [address] , [facility] 4 18:33:20 Chronic obstructi ve pulmonary disease 34999058 Active 2023 Sabine desai MD [address] [facility], [facility] [address], [place], [address] , [facility] 4 18:33:20 Cigarette smoker 00792227 Active 2023 Sabine desai MD [address], [place] [address], [place], [address] , [facility] 4 18:33:20 Serum creatinin e above reference range 236322650 Active 2023 ELOISE Thurston, [facility] 4 15:51:55 Vitamin B12 deficienc y (non anemic) 30329396 Active 2023 ELOISE Thurston, [facility] 4 14:38:52 Anemia 111767018 Active 2023 ELOISE Thurston, [facility] 4 14:39:13 Notes:Medical History: Rhini tis to [...] Time revision of colostomy completed Not Available [facility] 07/24/2022 00:41:56 partial resection of colon completed Not Available [facility] 07/24/2022 00:41:56 open reduction of fracture of femur completed Not Available [facility] 07/24/2022 00:41:56 colostomy completed Not Available [facility] 0 07/24/2022 00:41:56 Colonoscopy completed Not Available [facility] 07/24/2022 00:41:56 Imaging Results None recorded. Procedure Notes None recorded. Medical Equipment None Reported. Allergies Allergen ID Allergen Name Allergen Category Reaction Reaction Severity Criticality Documentation Date Start Date Code Code System Note Provider Name and Address Organization Details Recorded Time 227 Dilaudid medicatio n itching Not available Not available 07/24/2022 67930 3 RxNorm Not Available [facility] 00:49:49 Medications Name Sig Start Date Stop [...] mg by injectio n route. 11/12 completed [facility]: 0003-049 4-20 Not Available Not Available Not Available amlodipin [...] mg by injectio n route. 11/12 completed [facility] 15086-26 08-24 Not Available Not Available Not Available [...] Updated DateTime 4 170.18 cm 21.5 kg/m2 08993.1 5 g 97.9 [degF] 84 /min 136 mm[Hg] 80 mm[Hg] JUAN Noble [place] [facility] [place] [employer] 4 16:26:44 Social History Question Answer Notes LastModified by Organization Details LastModified Time Tobacco Smoking Status Current Some Day Smoker Not Available [facility] 07/24/2022 00:41:11 Do You Have An Advance Directive? No MIGRATION.0301 [id number] Information not available 07/24/2022 What Is Your Level Of Alcohol Consumption? Occasional MIGRATION.0301 211822 Information not available 07/24/2022 What Is Your Level Of Caffeine Consumption? Occasional MIGRATION.0301 905045 Information not available 07/24/2022 How Much Tobacco Do You Chew? None MIGRATION.0301 483089 Information not available 07/24/2022 In The 14 Days Before Symptom Onset, Have You Had Close Contact With A Laboratory-conf irmed COVID-19 While That Case Was Ill? No MIGRATION.0301 133062 Information not available 07/24/2022 In The 14 Days Before Symptom Onset, Have You Had Close Contact With A Person Who Is Under Investigation For COVID-19 While That Person Was Ill? No MIGRATION.0301 395490 Information not available 07/24/2022 Are You Currently Employed? Yes Information not available 09/02/2023 What Type Of Diet Are You Following? REGULAR MIGRATION.0301 465281 Information not available 07/24/2022 Which Illicit Or Recreational Drugs Have You Used? Cocaine, Cannabis No Longer Cocaine Information not available 09/02/2023 Do You Or Have You Ever Used E-cigarettes Or Vape? Never Used Electronic Cigarettes MIGRATION.030 069526 Information not available 07/24/2022 What Is The Highest Grade Or Level Of School You Have Completed Or The Highest Degree You Have Received? FT25386-7 MIGRATION.0301 406197 Information not available 07/24/2022 Do You Have An Electrostatic Air Filter? 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 No MIGRATION.0301 848875 Information not available 07/24/2022 Are There Any Guns Present In Your Home? No MIGRATION.0301 988579 Information not available 07/24/2022 Do You Have A Humidifier? No Information not available 10/03/2022 Do You Use Insect Repellent Routinely? No MIGRATION.0301 004042 Information not available 07/24/2022 Where Do You Live? 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 No MIGRATION.0301 663030 Information not available 07/24/2022 Do You Have Moisture Problems In Your Home? No Information not available 10/03/2022 What Was The Date Of Your Most Recent Tobacco Screening? 12/25/2023 Information not available 12/25/2023 Do You Have Any Pets? Yes MIGRATION.0301 463091 Information not available 07/24/2022 What Is Your Relationship Status? Information not available 09/02/2023 Do You Use Your Seat Belt Or Car Seat Routinely? Yes MIGRATION.0301 173333 Information not available 07/24/2022 Do You Have Smoke And Carbon Monoxide Detectors In Your Home? Yes MIGRATION.0301 344199 Information not available 07/24/2022 At What Age Did You Start Smoking Tobacco? 17 MIGRATION.0301 674179 Information not available 07/24/2022 Are You Passively Exposed To Smoke? Yes MIGRATION.0301 660638 Information not available 07/24/2022 Do You Or Have You Ever Used Smokeless Tobacco? Never Used Smokeless Tobacco MIGRATION.0301 649038 Information not available 07/24/2022 Are There Any Smokers In Your House? No MIGRATION.0301 667420 Information not available 07/24/2022 How Much Tobacco Do You Smoke? 1 PPW Smokes 1 Cigarette Every Other Day Information not available 09/02/2023 Do You Feel Stressed (tense, Restless, Nervous, Or Anxious, Or Unable To Sleep At Night)? MG95826-3 MIGRATION.0301 334806 Information not available 07/24/2022 Do You Use Any Illicit Or Recreational Drugs? Yes Cannabis Information not available 09/02/2023 Do You Use Sunscreen Routinely? No MIGRATION.0301 143807 Information not available 07/24/2022 How Many Years Have You Smoked Tobacco? 30 MIGRATION.0301 922387 Information not available 07/24/2022 Have You Recently Traveled Abroad? No MIGRATION.0301 749508 Information not available 07/24/2022 Do You Or Have You Ever Used Any Other Forms Of Tobacco Or Nicotine? No [email or web address] Information not available 07/17/2023 Sex: Unknown Functional Status Question Answer Note LastModified by Organizat ion Details LastModified Time What is your exercise level? Moderate MIGRATION.[id number] 6 Information not available 07/24/2022 Mental Status None recorded. Family History Relationship Description Onset Age of this Age Resolved Age Notes LastModified by Organization Details LastModified Time Father Kidney disease MIGRATION.507 [id number] Not available 07/24/2022 00:42:01 Father Hypertensive disorder MIGRATION.130 4256906 Not available 07/24/2022 00:42:01 Father Malignant neoplasm of brain MIGRATION.430 0836361 Not available 07/24/2022 00:42:01 Mother Hypertensive disorder MIGRATION.441 6161646 Not available 07/24/2022 00:42:01 Mother Diabetes mellitus MIGRATION.850 [id number] Not available 07/24/2022 00:42:01 Sister Hypertensive disorder MIGRATION.568 [id number] Not available 07/24/2022 00:42:01 Sister Diabetes mellitus MIGRATION.267 [id number] Not available 07/24/2022 00:42:01 Brother Hypertensive disorder MIGRATION.671 [id number] Not available 07/24/2022 00:42:01 Brother Diabetes mellitus MIGRATION.367 [id number] Not available 07/24/2022 00:42:01 Medical History Condition Response NERVE DISEASE N [...] HAVE YOU BEEN HOSPITALIZED OR SEEN IN [facility] IN THE PAST YEAR ? [...] dose 05/09/2022 completed Jg Echeverria LPN null, [facility] 11/26/2023 13:53:30 COVID-19, mRNA, LNP-S, PF, 30 mcg/0.3 mL dose 12/25/2020 completed Jg Echeverria LPN null, [facility] 11/26/2023 13:53:30 COVID-19, mRNA, LNP-S, PF, 30 mcg/0.3 mL dose 12/04/2020 completed JEROD Melgar, [place] [facility] 11/26/2023 13:53:30 Influenza, split virus, quadrivalent, PF 04/06/2021 completed Not Available [facility] 3 04:37:28 Influenza, split virus, quadrivalent, PF 05/06/2022 completed Not Available [facility] 3 04:37:28 Past Encounters Encounter ID Performer Location Encounter Start Date Encounter Closed Date Diagnosis/Indication Diagnosis SNOMED-CT Code Diagnosis ICD10 Code Diagnosis Note [id number] Sabine desai MD [facility] [address] [facility] [place] [address] 04/29/2024 16:13:56 04/29/2024 17:07:47 Screening - NAD 834863530 Z13.9 C-scope: 11/2020: Dr Escobedo as per prior PCP note Get yearly flu shot, get tdap if not doneGet COVID 19 vaccine and its boostersGe t shingrix vaccine RTC in 3 months, do labs, ER if worse, he did verbalize his understand ing of the above Coronary arteriosclerosis 94549129 I25.10 S/p CABGOn ASAOn plavix 01/29/2024 cardiology On coreg 6.25mg bidDr Earl 08/22/2023 , f/u in one month, start coreg and losartan Crohn's disease 55414854 K50.[address] Escobedo Hemorrhoids 28325653 K64 .9 Has taken anusol in the past Prediabetes 556148486 R7 3.03 Get labs Hyperlipidemia 78200863 E78.5 Not on rosuvastat in 20mg dailyOn atorvastat in 40mg daily given by Dr [place] [facility] [place] Essential hypertension 49731678 I10 Not on amlodipine 5mg daily, On amlodipine 10mg dailyOn losartan 50mg dailyGet labsSees Dr Elliott D/c from hospital for pneumonia in 03/2024, does well now Chronic ob structive pulmonary disease 39306793 J44.9 On albuterol, renewed 04/29/[address] Stokes Vitamin D deficiency 347 91974 E55.9 Cigarette smoker 4775446 7 F17.210 LDCT 07/11/2022 LDCT 07/28/[address] Parra to quit!US AAA at age 65 years Pain of le ft hip joint 8899760509 55957 M25.552 Emy Castillo [facility] 08/06/2023 Cobalamin deficiency 190 821672 E53.8 Health Concerns Section Related Observation LastModified by Organization Detai ls LastModified Time None Recorded Concern Status LastModified by Organization Details LastModified Time None Recorded Payers Encounter Date Sequence Insurance Name Policy Number Policy Bridges Covered Member ID Bridges Member ID Guarantor Name 04/29/2024 1 [facility] ON OR AFTER 11/23/20 (MEDICAID REPLACEMENT - HMO) Cirilo Cali [id number] Cirilo Cali Notes Date Note Type Note Provider Name and Address Organization Details Recorded Time 04/29/2024 text/html OV 07/17/2023:He re to establish care Past Hx:Praful's diseaseCOPDSmoker Here as he has been having [...] ago, wants his refill on the albuterol Sabine Looney MD [address] [facility], [facility] [address], [place], [address], [place] [employer] 05/14/2024 23:25:36
--- OUTSIDE RECORDS SUMMARY | 2024-06-06 03:27 | XMS_ITS | Encounter Summary ---
Author Organization [facility] Healthcare Address [address] [place] [address] Care Team Providers Care Repertoire Manager Name Role Phone eHmant Lopez MD Primary Care Provider [phone] Encounter Details Date Type Department Care Team (Latest Contact Info) Description 03/25/2021 5:20 AM CDT - 03/25/2021 11:59 PM CDT Hospital Encounter [facility] [address] [place] [address] Discharge Disposition: Discharge to home or self care Social History Tobacco Use Types Packs/Day Years Used Date Smoking Tobacco: Every Day Sex and Gender Information Value Date Recorded Sex Assigned at Not on file 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 Gender Identity Not on file Sexual Orientation Not on file documented as of this encounter Medications at Time of Discharge acetaminophen (TYLENOL) 325 mg tablet Take 2 tablets (650 mg total) by mouth every 6 (six) hours as needed for pain 30 tablet 03/25/2021 albuterol (PROAIR RESPICLICK) 90 mcg/actuation inhaler Inhale 2 puffs every 6 (six) hours as needed for wheezing aspirin 81 mg enteric coated tabletIndications: Myocardial Reinfarction Prevention Take 1 tablet (81 mg total) by mouth daily 30 tablet 2 03/25/2021 buPROPion XL (WELLBUTRIN XL) 150 mg 24 hr tablet Take 150 mg by mouth daily carvediloL (COREG) 6.25 mg tablet Take 6.25 mg by mouth 2 (two) times a day with meals cholestyramine (QUESTRAN) 4 gram packet Take 1 packet by mouth 3 (three) times a day with meals clopidogreL (PLAVIX) 75 mg tablet Take 1 tablet (75 mg total) by mouth daily 30 tablet 3 03/25/2021 docusate sodium (COLACE) 100 mg capsuleIndications :constipation Take 1 capsule (100 mg total) by mouth 2 (two) times a day 60 capsule 03/26/2021 ergocalciferol (VITAMIN D) 50,000 unit capsule Take 50,000 Units by mouth once a week hydrocortisone (ANUSOL-HC) 2.5 % rectal cream Insert into the rectum 2 (two) times a day rosuvastatin (CRESTOR) 20 mg tablet Take 1 tablet (20 mg total) by mouth nightly 30 tablet 2 03/25/2021 furosemide (LASIX) 40 mg tablet Take 1 tablet (40 mg total) by mouth once for 1 dose 7 tablet 03/25/2021 oxyCODONE (ROXICODONE) 10 mg tabletIndications: Pain Take 1 tablet (10 mg total) by mouth every 4 (four) hours as needed for pain 42 tablet 03/25/2021 1 documented as of this encounter Discharge Disposition Disposition Code Departure Means Destination Discharge to home or self care documented in this encounter Plan of Treatment Not on file documented as of this encounter Procedures Procedure Name Priority Date/Time Associated Diagnosis Comments XR CHEST 1 VIEW IP Routine 03/25/2021 7:09 AM CDT documented in this encounter Results * XR Chest 1 View - Portable - in AM (03/25/2021 7:09 AM CDT) Anatomical Region Laterality Modality Body, Chest N/A Computed Radiogr aphy 03/25/2021 11:1 2 AM CDT Impressions 03/25/2021 11:12 AM CDT No acute pulmonary disease. Electronically signed by: Analia Goncalves M.D. Narrative 03/25/2021 11:12 AM CDT Examination: XR CHEST 1 VIEW Date: 03/25/2021 5:25 AM History: s/p cardiac surg Comparison: 03/24/2021. Findings: Normal heart size, sternotomy wiring and plate screw fixation and tortuous aorta again noted. ??A right IJ catheter is at the SVC. The lungs are hyperinflated. ??There is no acute infiltrate or effusion. Procedure Note Analia Goncalves MD - 03/25/2021 Examination: XR CHEST 1 VIEW Date: 03/25/2021 5:25 AM History: s/p cardiac surg Comparison: 03/24/2021. Findings: Normal heart size, sternotomy wiring and plate screw fixation and tortuous aorta again noted. A right IJ catheter is at the SVC. The lungs are hyperinflated. There is no acute infiltrate or effusion. IMPRESSION: No acute pulmonary disease. Electronically signed by: Analia Goncalves M.D. Malathi Curry MD IMG XR PROCEDURES Final Result documented in this encounter Visit Diagnoses Not on filedocumented in this encounter Care Teams Repertoire Manager Relationship Specialty Start Date End Date Hemant Lopez MD PCP - General 03/22/21 documented as of this encounter
--- OUTSIDE RECORDS SUMMARY | 2024-06-06 03:28 | XMS_ITS | Encounter Summary ---
Author Organization [facility] Healthcare Address [address] [place] [address] Care Team Providers Care Oyster Floater Name Role Phone Hemant Lopez MD Primary Care Provider [phone] Encounter Details Date Type Department Care Team (Late st Contact Info) Description 03/20/2021 11:21 AM CDT Anesthesia Event [facility] Operating Room [address] [place] [address] [place] [phone] [id number] Oma Foster CRNA [phone] [id number] Anesthesia Record Procedure Summary Procedure Name Responsible Anesthesiologist Anesthesia Start Time Anesthesia Stop Time Coronary artery bypass graft x 2 using left internal mammary artery and right saphenous vein which was endoscopically harvested, sternal plating; intraoperative transesophageal echocardiogram as per anesthesia (Chest) Stepan Fuchs MD 03/20/21 1121 03/20/21 1625 Events Date Time Event Comment 03/20/2021 1019 Perfusion Ready 1019 Start Data 1024 1121 An Start 1121 An Start Data 1121 In Room 1128 An Induction The patient was reevaluated immediately before moderate or deep sedation use and before anesthesia induction. 1131 An Intubation 1137 Line Placement 1145 HELLEN placed 1154 Anesthesia Ready 1206 Proc Start 1206 Incision Start 1247 Quick Note 30 000 units he madhuri given via anesthesia 1318 CPB ON 1320 Vacuum Assist On 1321 Cooling Start 1321 Aortic Clamp ON 1328 Quick Note Diag 1.5 mm 1333 Labs Drawn 1351 Quick Note LAD is 1.5 mm 1352 Rewarming Start 1357 Quick Note Platelet count sent 1411 Aortic Clamp OFF 1417 Labs Drawn 1418 Quick Note Platelet count is 333 193 6530 Quick Note K * to lab is 5 .5 1459 CPB OFF 1501 Quick Note CABG x 2 CPB ti me: 101 minutes X clamp time: 50 minutes Temp: 33.2 degrees C NO PRBC on CPB Lowest H / H : 8.8/26 Highest glucose: 121 1504 Vacuum Assist Off 1541 Perfusion Complete 1600 HELLEN removed 1605 Proc Fin 1609 an stop data 1610 Out of Room 1625 Handoff to RN I completed my handoff to the receiving nurse during which we: 1. Patient identified 2. Responsible provider identified 3. Pertinent medical history reviewed 4. Procedure type and surgical course discussed 5. Intraoperative anesthetic management and any significant issues discussed 6. Expectations and concerns for postop period discussed 7. Questions solicited from receiving nurse 8. Patient disposition at the time of handoff: ICU 1625 An Stop Meds Name Total midazolam 2 mg fentaNYL 1,250 mcg lidocaine syringe 2% 60 mg rocuronium 70 mg tranexamic acid (CYKLOKAPRON ) 1,000 mg in sodium chloride 0.9% 100 mL (10 mg/mL) infusion 280.5 mg norepinephrine (LEVOPHED) 8, 000 mcg in dextrose 5% 250 mL (32 mcg/mL) infusion 0.51 mg electrolyte-A (PLASMA-LYTE) 400 mL with albumin 150 mL, heparin 10 mL, mannitol 12.5 g, sodium bicarbonate 50 mL solution 660 mL mannitol 25 % injection 25 g nitroglycerin infusion 100 mcg ceFAZolin (ANCEF) 1 gram/10 mL in steril e water (premix) 2,000 mg 4,000 mg vancomycin 1,000 mg/200 mL in dextrose 5 % (premix) 1,000 mg 1,000 mg tranexamic acid 1,000 mg phenylephrine (FRANCIA-SYNEPHRINE) injection 600 mcg furosemide (LASIX) injection 10 mg/mL 10 mg dexmedeTOMIDine infusion 84.15 mcg sodium bicarbonate injection 1 mEq/mL 50 mEq potassium arrest solution 11 mEq Lactated Ringer's (LR) 16 mL with adenosine (ADENOCARD) 14 mL, lidocaine (cardiac) (XYLOCAINE) 5 mL, magnesium sulfate 4 g solution 14 mL DOBUTamine 7.26 mg heparin injection 1,000 unit/mL 5,000 Un its insulin regular injection 3 Units milrinone infusion 2.35 mg EPINEPHrine in 0.9% sodium c hloride 2 mg/100 mL (20 mcg/mL) infusion (premix) 0.25 mg sodium chloride 0.9% infusion 1,000 mL electrolyte-A (PLASMA-LYTE) bolus 1,400 mL sodium chloride 0.9% bolus 500 mL * Agents Name O2 Sevoflurane Inspired Sevoflurane * Blood No blood administrations on file. Lines, Drains, and Airways Type Details Placement Removal Peripheral IV Placement Date: 03/15/21; Placement Time: 1000; Existing LDA Placed by: Other hospital; Change Due: 03/19/21; Catheter Size: 22 G; Orientation: Anterior, Left; Location: Forearm; Removal Date: 03/23/21 (unknown date removed) 03/15/21 1000 by Rich Squires RN 03/23/21 0000 by Rich Squires RN Urethral Catheter Placement Date: 03/20/21; Inserted by: Cherri Patton RN; Type: Straight-tip; Balloon Size: 10 mL; Urine Returned: Yes; Removal Date: 03/22/21; Removal Time: 0900; Removal Reason: Per order 03/20/21 0000 by Cherri Patton RN 03/22/21 0900 by Oleg Miles RN Y Chest Tube A and B 03/20/21; A; Mediastinal; 32 Fr.; B; Left; Pleural; 32 Fr.; Per order 03/20/21 0000 by Cherri Patton RN 03/22/21 0900 by Oleg Miles, AUTUMN RETIRED Surgical Site 03/20/21; 1144; Ch est; 04/27/24 (Retired LDA, Removed/Completed by [facility] with LDA Utility); 1213 (Retired LDA, Removed/Completed by [facility] with LDA Utility) 03/20/21 1144 by Cherri Patton RN 04/27/24 1213 by Discharge Provider, Automatic RETIRED Surgical Site 03/20/21; 1144; Ri ght; Leg; 04/27/24 (Retired LDA, Removed/Completed by [facility] with LDA Utility); 1213 (Retired LDA, Removed/Completed by [facility] with LDA Utility) 03/20/21 1144 by Cherri Patton RN 04/27/24 1213 by Discharge Provider, Automatic ETT Placement Date: 03/20/21; Placement Time: 1233 (created via procedure documentation); Mask Ventilation: 1; Technique: Direct laryngoscopy; Type: ETT - single; Single Lumen Tube Size: 8 mm; Cuffed: Yes; Laryngoscope: Tyrell; Blade Size: 3; Location: Oral; Grade View: Grade I; Insertion Attempts: 1; Placement Verification: Auscultation, Capnometry; Airway Comment: Atraumatic insertion. Dentition as pre-op. Continue to assess ; Removal Date: 03/20/21; Removal Time: 220803/20/21 1233 by Mari Treviño AA 03/20/21 220 by Anna Marie Mac RRT Arterial Line Placement Date: 03/20/21; Placemnt Time: 1236 (created via procedure documentation); Size: 20 G; Orientation: Right; Location: Radial; Securement: Taped, Transparent dressing; Removal Date: 03/22/21; Removal Time: 0900; Removal Reason: Per order 03/20/21 1236 by Mari Treviño, GIGI 03/22/21 0900 by Oleg Miles RN Introducer Placement Date: 03/20/21; Placement Time: 1239 (created via procedure documentation); Existing LDA Placed by: Yes; Size: multi-lumen access catheter (MAC); Insertion Attempts: 03/25/21; Securement: 1234 03/20/21 1239 by Mari Treviño AA 03/25/21 1234 by Pat White RN PA Catheter Placement Date: 03/20/21; Placement Time: 1239 (created via procedure documentation); Site Prep: Chlorhexidine; Removal Date: 03/22/21; Removal Time: 0900 03/20/21 1239 by Mari Treviño AA 03/22/21 0900 by Oleg Miles RN Arterial Line Placement Date: 03/20/21; Placemnt Time: 1300; Orientation: Left; Location: Femoral; Site Prep: Chlorhexidine; Removal Date: 03/21/21; Removal Time: 041; Removal Reason: Therapy completed 03/20/21 1300 by Ron Yoon RN 03/21/21 0415 by Aleksey Kellogg RN NG/OG/Gastric tube Placement Date: 03/20/21; Placement Time: 1500; Type: Orogastric; Size: 16 Fr; Location: Center mouth; Removal Date: 03/20/21; Removal Time: 22003/20/21 1500 by Aleksey Kellogg RN 03/20/21 2200 by Oleg Miles RN Pacer Wires 03/20/21; 1600; Atri al and Ventricular; 03/25/21; 1234 03/20/21 1600 by Narda Buck RN 03/25/21 1234 by Pat White RN documented in this encounter Social History Tobacco Use Types Packs/Day Years Used Date Smoking Tobacco: Every Day Sex and Gender Information Value Date Recorded Sex Assigned at Not on file Legal Sex Male 12:12 PM [employer] Gender Identity Not on file Sexual Orientation Not on file documented as of this encounter OR Notes * Anesthesia Postprocedure Evaluation - Yissel Zamudio CRNA - 03/21/2021 9:29 AM CDT Patient: Cirilo Cali Procedure Summary Date: 03/20/21 Room / Location: OPERATING ROOM 14 / OPERATING ROOM Anesthesia Start: 1121 Anesthesia Stop: 1625 Procedures: Coronary artery bypass graft x 2 using left internal mammary artery and right saphenous vein which was endoscopically harvested, sternal plating; intraoperative transesophageal echocardiogram as per anesthesia (N/A Chest) CLOSURE STERNAL - WITH PLATES (N/A Chest) Diagnosis: Coronary artery disease involving rappahannock heart without angina pectoris, unspecified vessel or lesion type (Coronary artery disease involving rappahannock heart without angina pectoris, unspecified vessel or lesion type [I25.10]) Providers: Malathi Curry MD Responsible Provider: Stepan Fuchs MD Anesthesia Type: general ASA Status: 3 Anesthesia Type: general Last vitals Blood Pressure 111/60 Pulse 98 Temperature 36.7 ??C (98.1 ??F) (Oral) Respiration 22 OxygenSaturation 94% Anesthesia Post Evaluation Patient location during evaluation: ICU Patient participation: complete - patient participated Level of consciousness: fully awake Pain score: 2 Pain management: adequate Airway patency: adequate Evidence of recall: no Cardiovascular status: acceptable Respiratory status: acceptable Pt is: normothermic Nausea/Vomiting status: none No complications documented. * Anesthesia Procedure Notes - Mari Treviño AA - 03/20/2021 12:36 PM CDT Associated Order(s): Central Venous Line Central Venous Line Patient location: OR Indication: central venous access and CVP monitoring Staff: Supervising provider: Stepan Fuchs MD Placed by: AA: Mari Treviño AA Procedure prep: Patient position: Trendelenburg. PPE: provider hat/mask, sterile gloves, sterile gown, provider hand hygiene and full body drape. Prep solution: chlorhexadine/alcohol was applied to area. Ultrasound was used prior to prep. Central line: Laterality: right Site: internal jugular Catheter type: multi-lumen access catheter (MAC) Catheter size: 9 Fr. Technique: anatomy identified with ultrasound, vein located with finder needle, Seldinger technique, wire threaded easily and wire removed intact Venous verification: pressure transduced Post insertion: all ports aspirated, all ports flushed easily, line sutured in place and occlusive dressing applied Chlorhexidine patch applied: yes Number of attempts: 1 PA catheter placement: PA catheter type: oximetric PA catheter size: 8 Fr PA catheter laterality: right PA catheter site: internal jugular Placement guided by: pressure tracing changes PA catheter depth 45 cmNo Assessment: Events: patient tolerated procedure well with no complications Additional comments: Atraumatic insertion by YAQUELIN Delarosa under supervision * Anesthesia Procedure Notes - Mari Treviño AA - 03/20/2021 12:33 PM CDT Associated Order(s): Arterial Line Arterial Line Patient location: pre-op holding Indication: continuous blood pressure monitoring and blood sampling needed Staff: Supervising provider: Stepan Fuchs MD Placed by: GIGI: Mari Treviño AA Procedure prep: Prep solution: chlorhexadine/alcohol Prep: provider hat/mask and sterile gloves Skin infiltrated with lidocaine 1%: yes Arterial line: Catheter size: 20 gauge Catheter length: 1 and 3/4 inch Catheter type: wire-guided catheter Seldinger technique: yes Laterality: right Site: radial artery Line secured: Tegaderm and tape Results: good waveform and good blood return Number of attempts: 1 Assessment: Events: patient tolerated procedure well with no complications Additional comments: Atraumatic insertion by YAQUELIN Delarosa under supervision. * Anesthesia Procedure Notes - Mari Treviño AA - 03/20/2021 12:33 PM CDT Associated Order(s): Airway Airway Patient location: OR Urgency: elective Indications for airway management: anesthesia and airway protection Difficult airway: no Staff: Placed by: AA: Mari Treviño AA Emergent airway documentation: Risks and benefits discussed: yes Consent obtained: yes Consent given by: patient Airway prep: Preoxygenated: yes Patient position: sniffing MILS maintained throughout: yes Mask difficulty assessment: 1 - vent by mask Spontaneous ventilation during airway: absent Sedation level during airway: GA Final airway details: Final airway type: endotracheal airway Tube type: ETT ETT size: 8.0 mm Cuffed: yes Technique used for successful ETT placement: direct laryngoscopy Insertion site: oral Blade type: Tyrell Blade size: 3 Cormack-Lehane (direct): grade I - full view of glottis Cuff volume: 7 mL Cuff inflated with: air ETT to lips: 22 cm Placement verified by: auscultation and CO2 detection Airway secured with: silk tape Number of attempts: 1 Additional comments: Atraumatic insertion. Dentition as pre-op. Continue to assess * Anesthesia Preprocedure Evaluation - Don Edward MD - 03/19/2021 9:07 AM CDT Images from the original note were not included. Anesthesia Evaluation Cirilo Cali is a 55 y.o. male Procedure(s): CORONARY ARTERY BYPASS GRAFT - INTERNAL MAMMARY ARTERY Pre-Op Diagnosis Codes: * Coronary artery disease involving rappahannock heart without angina pectoris, unspecified vessel or lesion type [I25.10] HISTORY Past Medical History Information obtained from: patient and chart. Neurological Neuro/Psych system: negative Cardiovascular + Hypertension + Hyperlipidemia + CAD + Systolic or diastolic dysfunction w/o CHF Diastolic dysfunction w/o CHF. Diastolic function: stage I - impaired relaxation LVEF: >70%. Respiratory + COPD - chronic bronchitis. Dyspnea frequency: 2 days/week or less. Rescue inhaler use: 2 days/week or less. + Current smoker - Counseled to abstain from smoking the day of surgery. Patient refrained from smoking on day of surgery. Hepatic / Heme Hepatic/Heme system: negative Gastrointestinal GI system: negative Renal / Renal/ system: negative Musculoskeletal/Pain Musculoskeletal/Pain system: negative Endocrine / Other + Rheumatological disease - Crohn's disease. Functional Capacity Functional capacity: 4-6 METs Patient Active Problem List Diagnosis ??? Coronary artery disease involving rappahannock heart without angina pectoris Past Medical History: Diagnosis Date ??? COPD (chronic obstructive pulmonary disease) ([facility]) ([facility]) ??? Crohn's colitis ([facility]) ([facility]) ??? Hyperlipidemia ??? Hypertension ??? Tobacco abuse No past surgical history on file. Allergies Allergen Reactions ??? Hydromorphone Headache and Itching Headache Makes me itch every where Med List Status: Nurse Complete Set By: Rich Squires RN at 03/16/2021 11:09 AM Taking? Last Dose Start Date End Date Provider albuterol (PROAIR RESPICLICK) 90 mcg/actuation inhaler Past Week -- -- David Syed MD amLODIPine (NORVASC) 10 mg tablet Past Week -- -- David Syed MD buPROPion XL (WELLBUTRIN XL) 150 mg 24 hr tablet Past Week -- -- David Syed MD carvediloL (COREG) 6.25 mg tablet Past Week -- -- David Syed MD cholestyramine (QUESTRAN) 4 gram packet Past Week -- -- ProviderDavid MD ergocalciferol (VITAMIN D) 50,000 unit capsule Past Week -- -- David Syed MD hydrocortisone (ANUSOL-HC) 2.5 % rectal cream Past Week -- -- David Syed MD nitroglycerin (NITROSTAT) 0.3 mg SL tablet Past Week -- -- ProviderDavid MD Current Facility-Administered Medications: ??? amLODIPine (NORVASC) tablet 10 mg, 10 mg, oral, Daily, 10 mg at 03/18/21926 ??? aspirin chewable tablet 81 mg, 81 mg, oral, Daily, 81 mg at 03/18/21926 ??? carvediloL (COREG) tablet 6.25 mg, 6.25 mg, oral, BID with meals (bkfst, dinner), 6.25 mg at 03/18/21 173 ??? cholestyramine-aspartame (QUESTRAN LIGHT) 4 gram packet 1 packet, 1 packet, oral, Daily - 0600,1 packet at 03/18/21526 ??? heparin 1,000 unit/mL injection 2,000 Units, 2,000 Units, intravenous, Q6H PRN OR heparin 1,000 unit/mL injection 3,000 Units, 3,000 Units, intravenous, Q6H PRN ??? heparin in 0.45% sodium chloride 25,000 units/250 mL (100 units/mL) infusion (premix), 0-33 Units/kg/hr, intravenous, Titrated, Last Rate: 9.14 mL/hr at 03/18/21 0731, 14 Units/kg/hr at 03/18/21 0731 ??? hydrALAZINE (APRESOLINE) injection 10 mg, 10 mg, intravenous, Q4H PRN ??? nitroglycerin (NITRO-BID) 2 % ointment 0.5 inch, 0.5 inch, topical, BID NITRATES, 0.5 inch at 03/19/21 0809 ??? rosuvastatin (CRESTOR) tablet 20 mg, 20 mg, oral, Nightly, 20 mg at 03/18/212052 ??? sodium chloride 0.9% flush 0.5-20 mL, 0.5-20 mL, intra-catheter, Q8H CYNDEE, 10 mL at 03/17/21 1513 ??? sodium chloride 0.9% flush 0.5-20 mL, 0.5-20 mL, intra-catheter, PRN Social History Tobacco Use Smoking Status Not on file Substance and Sexual Activity Alcohol Use Not on file Substance and Sexual Activity Drug Use Not on file No family history on file. Vitals: 03/18/21 2347 03/19/21 0413 03/19/21 0900 BP: 135/95 115/78 150/100 Pulse: 94 89 88 Resp: 18 18 17 Temp: 36.9 ??C (98.4 ??F) 36.2 ??C (97.1 ??F) 36.8 ??C (98.2 ??F) SpO2: 97% 98% 97% PT: 03/16/2021: 10.7 sec INR: 03/16/2021: 1.0 APTT: 03/19/2021: 66 sec (H) Hgb A1C: 03/17/2021: 5.7 % (H) CBC RBC: 03/19/2021: 4.24 M/cumm (L) RDW: No results found for requested labs within last 720 hours. MCHC: 03/19/2021: 32.8 g/dL MCH: 03/19/2021: 32.5 pg MCV: 03/19/2021: 99.3 fL (H) Hct: 03/19/2021: 42.1 % Hgb: 03/19/2021: 13.8 g/dL WBC: 03/19/2021: 6.4 K/cumm MPV: 03/19/2021: 8.1 fL (L) Platelets: 03/19/2021: 227 K/cumm RDW CV: 03/19/2021: 13.4 % RDW Sd: 03/19/2021: 49.1 fL (H) BMP Glucose: 03/16/2021: 128 mg/dL Calcium: 03/16/2021: 9.0 mg/dL Sodium: 03/16/2021: 142 mmol/L Potassium: 03/16/2021: 4.3 mmol/L CO2: 03/16/2021: 30 mmol/L Chloride: 03/16/2021: 101 mmol/L BUN: 03/16/2021: 15 mg/dL Creatinine: 03/16/2021: 1.44 mg/dL (H) Conclusions: Technically difficult study with suboptimal apical views. Probably Normal left ventricular systolic function with no focal wall motion abnormalities. Mild concentric left ventricular hypertrophy. Impaired diastolic relaxation Grade I. Ejection fraction is visually estimated at 70 %. Normal right ventricular systolic pressure. Estimated peak RVSP is 25 mmHg. Mild tricuspid regurgitation. Normal pericardium with no significant pericardial effusion. Electronically Signed By: Ricky Perkins MD 2021-03-18 16:57:25 CDT DOS Physical Exam Medical history, medications, and allergies reviewed. Attestation: I endorse the findings of the anesthesia pre-evaluation assessment dated: 03/20/2021. Airway Exam: Mallampati: II Cervical ROM: FROM TM distance: >4 Jaw ROM: full Cardiovascular Exam: Rate: regular Rhythm: regular Pulmonary Exam: LCTA, bilat EENT Exam: trachea midline Dental Exam: Missing, loose and otherwise appears intact Skin Exam: Skin is warm. Current state: Patient's current state is cooperative. Anesthesia Plan ASA 3 My patient is approved for the Anesthesia Controlled Medication protocol when under care of a SUPERVISOR CAB Planned anesthesia: General Team communication plan: oral ET tube Invasive Monitors Planned: Invasive monitors planned: arterial line, HELLEN and pulmonary artery catheter. Induction: Induction: intravenous. Postoperative Plan: Postoperative administration opioids intended. Postoperative mechanical ventilation intended. Patient's planned disposition post procedure is ICU. No trial extubation planned. Informed Consent: Discussed plan with attending and AA. Anesthesia plan and risks discussed with patient. Consent and Attending signature: I and/or my designee have discussed the anesthesia plan, benefits, possible alternatives, parental presence at time of induction (if indicated), and clinically relevant risks that may include dental injury, unintentional awareness, and/or other complications. The patient and/or parent/legal guardian understand, and agree to proceed. All questions answered. documented in this encounter Miscellaneous Notes * Post-Perfusion - Kelsey Kim, [facility] - 03/20/2021 3:13 PM CDT Medications midazolam (mg) Date/Time Rate/Dose/Volume Action Admin User Audit 03/20/21 1123 2 mg Given Selimovic, Asmir, AA fentaNYL (mcg) Date/Time Rate/Dose/Volume Action Admin User Audit 03/20/21 1128 500 mcg Given Selimovic, Asmir, AA 1202 200 mcg Given Selimovic, Asmir, AA edited 1209 150 mcg Given Selimovic, Asmir, AA edited 1255 250 mcg Given Selimovic, Asmir, AA lidocaine syringe 2% (mg) Date/Time Rate/Dose/Volume Action Admin User Audit 03/20/21 1128 60 mg Given Selimovic, Asmir, AA rocuronium (mg) Date/Time Rate/Dose/Volume Action Admin User Audit 03/20/21 1128 50 mg Given Selimovic, Asmir, AA 1209 20 mg Given Selimovic, Asmir, AA tranexamic acid (CYKLOKAPRON) 1,000 mg in sodium chloride 0.9% 100 mL (10 mg/mL) infusion (mg/kg/hr) Dosing weight: 66 Date/Time Rate/Dose/Volume Action Admin User Audit 03/20/21 1140 1 mg/kg/hr - 6.6 mL/hr New Bag Kamila, Asmir, AA norepinephrine (LEVOPHED) 8,000 mcg in dextrose 5% 250 mL (32 mcg/mL) infusion (mcg/kg/min) Dosing weight: 66 Date/Time Rate/Dose/Volume Action Admin User Audit 03/20/21 1411 0.04 mcg/kg/min - 4.95 mL/hr New Bag Kamila, Asmir, AA electrolyte-A (PLASMA-LYTE) 400 mL with albumin 150 mL, heparin 10 mL, mannitol 12.5 g, sodium bicarbonate 50 mL solution (mL) Date/Time Rate/Dose/Volume Action Admin User Audit 03/20/21 0815 660 mL [dose] - 660 mL [vol] New Bag Franc Mcwilliams A mannitol 25 % injection (g) Date/Time Rate/Dose/Volume Action Admin User Audit 03/20/21 0816 25 g Given Franc Mcwilliams nitroglycerin infusion (mcg) Date/Time Rate/Dose/Volume Action Admin User Audit 03/20/21 1206 50 mcg Given Selimovic, Asmir, AA 1210 50 mcg Given Selimovic, Asmir, AA ceFAZolin (ANCEF) 1 gram/10 mL in sterile water (premix) 2,000 mg (mg) Dosing weight: 65.3 Date/Time Rate/Dose/Volume Action Admin User Audit 03/20/21 1137 2,000 mg (over 3 min) Given Selimovic, Asmir, AA edited vancomycin 1,000 mg/200 mL in dextrose 5% (premix) 1,000 mg (mg) Dosing weight: 65.3 Date/Time Rate/Dose/Volume Action Admin User Audit 03/20/21 1137 1,000 mg (over 60 min) Given Selimalisha, Mikieir, AA edited tranexamic acid (mg) Date/Time Rate/Dose/Volume Action Admin User Audit 03/20/21 1137 1,000 mg (over 3 min) Given Selimovic, Asmir, AA phenylephrine (FRANCIA-SYNEPHRINE) injection (mcg) Date/Time Rate/Dose/Volume Action Admin User Audit 03/20/21 1349 200 mcg Given Kelsey Kim LNicholas, CCP 1404 200 mcg Given Kelsey Kim, CCP 1412 200 mcg Given Kelsey Kim, CCP furosemide (LASIX) injection 10 mg/mL (mg) Date/Time Rate/Dose/Volume Action Admin User Audit 03/20/21 1356 10 mg Given Kelsey Kim, CCP dexmedeTOMIDine infusion (mcg/kg/hr) Dosing weight: 66 Date/Time Rate/Dose/Volume Action Admin User Audit 03/20/21 1352 0.5 mcg/kg/hr - 8.25 mL/hr New Bag Selimalisha, Asmir, AA sodium bicarbonate injection 1 mEq/mL (mEq) Date/Time Rate/Dose/Volume Action Admin User Audit 03/20/21 1421 50 mEq Given Kelsey Kim LNicholas, CCP potassium arrest solution (mEq) Date/Time Rate/Dose/Volume Action Admin User Audit 03/20/21 1430 11 mEq Given Kelsey Kim LNicholas, CCP Lactated Ringer's (LR) 16 mL with adenosine (ADENOCARD) 14 mL, lidocaine (cardiac) (XYLOCAINE) 5 mL, magnesium sulfate 4 g solution (mL) Date/Time Rate/Dose/Volume Action Admin User Audit 03/20/21 1430 14 mL New Bag Kelsey Kim LNicholas, CCP DOBUTamine (mcg/kg/min) Dosing weight: 66 Date/Time Rate/Dose/Volume Action Admin User Audit 03/20/21 1413 5 mcg/kg/min - 4.95 mL/hr New Bag Selimovic, Asmir, AA 1435 Stopped Selimovic, Asmir, AA heparin injection 1,000 unit/mL (Units) Date/Time Rate/Dose/Volume Action Admin User Audit 03/20/21 1436 5,000 Units Given Kelsey Kim, CCP insulin regular injection (Units) Date/Time Rate/Dose/Volume Action Admin User Audit 03/20/21 1438 3 Units Given Kelsey Kim LNicholas, CCP milrinone infusion (mcg/kg/min) Dosing weight: 66 Date/Time Rate/Dose/Volume Action Admin User Audit 03/20/21 1450 0.375 mcg/kg/min - 7.425 mL/hr New Bag Selmartha, Asmir, AA EPINEPHrine in 0.9% sodium chloride 2 mg/100 mL (20 mcg/mL) infusion (premix) (mcg/kg/min) Dosing weight: 66 Date/Time Rate/Dose/Volume Action Admin User Audit 03/20/21 1452 0.05 mcg/kg/min - 9.9 mL/hr New Bag Selimovic, Asmir, AA edited sodium chloride 0.9% infusion (mL) Dosing weight: 65.3 Date/Time Rate/Dose/Volume Action Admin User Audit 03/20/21 1121 New Bag Selshahabovic, Asmir, AA electrolyte-A (PLASMA-LYTE) bolus (mL) Date/Time Rate/Dose/Volume Action Admin User Audit 03/20/21 1137 New Bag Selimovic, Asmir, AA 1148 New Bag Malathi Curry MD sodium chloride 0.9% bolus (mL) Date/Time Rate/Dose/Volume Action Admin User Audit 03/20/21 1454 New Bag Kelsey Kim L., CCP 1506 500 mL Stopped Kelsey Kim, CCP Events Date Time Event 03/20/2021 1019 Perfusion Ready 1019 Start data Collection 1024 Ready for Procedure 1121 Anesthesia Start 1121 Start Data Collection 1121 Patient in Room 1128 Induction The patient was reevaluated immediately before moderate or deep sedation use and before anesthesia induction. 1131 Intubation 1137 Line Placed 1145 HELLEN placed 1154 Anesthesia Ready 1206 Procedure Start 1206 Incision Start 1247 Quick Note 30 000 units heparin given via anesthesia 1318 CPB ON 1320 Vacuum Assist On 1321 Cooling Start 1321 Aortic Clamp ON 1328 Quick Note Diag 1.5 mm 1333 Labs Drawn 1351 Quick Note LAD is 1.5 mm 1352 Rewarming Start 1357 Quick Note Platelet count sent 1411 Aortic Clamp OFF 1417 Labs Drawn 1418 Quick Note Platelet count is [phone] Quick Note K * to lab is 5.5 1459 CPB OFF 1501 Quick Note CABG x 2 CPB time: 101 minutes X clamp time: 50 minutes Temp: 33.2 degrees C NO PRBC on CPB Lowest H / H : 8.8/ Highest glucose: 121 1504 Vacuum Assist Off Cosigned by Malathi Curry MD at 03/21/2021 3:47 PM CDT documented in this encounter Plan of Treatment Not on file documented as of this encounter Procedures Procedure Name Priority Date/Time Associated Diagnosis Comments ANESTHESIA CENTRAL VENOUS LINE PLACEMENT Routine 03/20/2021 12:36 PM CDT ANESTHESIA CENTRAL VENOUS LINE PLACEMENT Routine 03/20/2021 12:36 PM CDT ANESTHESIA ARTERIAL LINE PLACEMENT Routine 03/20/2021 12:33 PM CDT MS AN ELECTIVE ENDOTRACHEAL AIRWAY Routine 03/20/2021 12:33 PM CDT documented in this encounter Results * BW AN SHEATH INTRODUCER PERFORMABLE, PULMONARY ARTERY CATH (03/20/2021 12:36 PM CDT) Narrative Mari Treviño AA - 03/20/2021 12:36 PM CDT Mari Treviño AA ? 03/20/2021 12:39 PM Central Venous Line Patient location: OR Indication: central venous access and CVP monitoring Staff: Supervising provider: Stepan Fuchs MD Placed by: AA: Mari Treviño AA Procedure prep: Patient position: Trendelenburg. PPE: provider hat/mask, sterile gloves, sterile gown, provider hand hygiene and full body drape. Prep solution: chlorhexadine/alcohol was applied to area. Ultrasound was used prior to prep. Central line: Laterality: right Site: internal jugular Catheter type: multi-lumen access catheter (MAC) Catheter size: 9 Fr. Technique: anatomy identified with ultrasound, vein located with finder needle, Seldinger technique, wire threaded easily and wire removed intact Venous verification: pressure transduced Post insertion: all ports aspirated, all ports flushed easily, line sutured in place and occlusive dressing applied Chlorhexidine patch applied: yes Number of attempts: 1 PA catheter placement: PA catheter type: oximetric PA catheter size: 8 Fr PA catheter laterality: right PA catheter site: internal jugular Placement guided by: pressure tracing changes PA catheter depth 45 cmNo Assessment: Events: patient tolerated procedure well with no complications Additional comments: Atraumatic insertion by YAQUELIN Delarosa under supervision us Stepan Fuchs MD ANESTHESIA ORDERABLES Final Result * Arterial Line (03/20/2021 12:33 PM CDT) Narrative Mari Treviño AA - 03/20/2021 12:33 PM CDT Mari Treviño AA ? 03/20/2021 12:36 PM Arterial Line Patient location: pre-op holding Indication: continuous blood pressure monitoring and blood sampling needed Staff: Supervising provider: Stepan Fuchs MD Placed by: AA: Mari Treviño AA Procedure prep: Prep solution: chlorhexadine/alcohol Prep: provider hat/mask and sterile gloves Skin infiltrated with lidocaine 1%: yes Arterial line: Catheter size: 20 gauge Catheter length: 1 and 3/4 inch Catheter type: wire-guided catheter Seldinger technique: yes Laterality: right Site: radial artery Line secured: Tegaderm and tape Results: good waveform and good blood return Number of attempts: 1 Assessment: Events: patient tolerated procedure well with no complications Additional comments: Atraumatic insertion by YAQUELIN Delarosa under supervision. us Stepan Fuchs MD ANESTHESIA ORDERABLES Final Result * MS AN ELECTIVE ENDOTRACHEAL AIRWAY (03/20/2021 12:33 PM CDT) Narrative Mair Treviño AA - 03/20/2021 12:33 PM CDT Mari Treviño AA ? 03/20/2021 12:33 PM Airway Patient location: OR Urgency: elective Indications for airway management: anesthesia and airway protection Difficult airway: no Staff: Placed by: AA: Mari Treviño AA Emergent airway documentation: Risks and benefits discussed: yes Consent obtained: yes Consent given by: patient Airway prep: Preoxygenated: yes Patient position: sniffing MILS maintained throughout: yes Mask difficulty assessment: 1 - vent by mask Spontaneous ventilation during airway: absent Sedation level during airway: GA Final airway details: Final airway type: endotracheal airway Tube type: ETT ETT size: 8.0 mm Cuffed: yes Technique used for successful ETT placement: direct laryngoscopy Insertion site: oral Blade type: Tyrell Blade size: 3 Cormack-Lehane (direct): grade I - full view of glottis Cuff volume: 7 mL Cuff inflated with: air ETT to lips: 22 cm Placement verified by: auscultation and CO2 detection Airway secured with: silk tape Number of attempts: 1 Additional comments: Atraumatic insertion. Dentition as pre-op. Continue to assess us Stepan Fuchs MD ANESTHESIA ORDERABLES Final Result documented in this encounter Visit Diagnoses Not on filedocumented in this encounter Administered Medications Inactive Administered Medications - up to 3 most recent administrations Medication Order MAR Action Action Date Dose Rate Site ceFAZolin (ANCEF) 1 gram/10 mL in sterile water (premix) 2,000 mg 2,000 mg, intravenous, at 400 mL/hr, Administer over 3 Minutes, Once, On Fri03/20/21 at 1045, For 1 dose, Pre-Op, Administer within 60 minutes of incision., Indications: Prophylaxis, SurgicalIndications:Prophylaxis, Surgical Given 03/20/2021 3:31 PM CDT 2,000 mg Given 03/20/2021 11:37 AM CDT 2,000 mg dexmedeTOMIDine in 0.9% sodium chloride (PRECEDEX) 200 mcg/50 mL (4 mcg/mL) infusion (premix) intravenous, Continuous PRN, Starting on Fri03/20/21 at 1352, Anesthesia Intra-op New Bag 03/20/2021 1:52 PM CDT 0.5 mcg/kg/hr 8.25 mL/hr DOBUTamine in dextrose 5% (DOBUTREX) 1,000 mg/250 mL (4,000 mcg/mL) infusion (premix) intravenous, Continuous PRN, Starting on Fri03/20/21 at 1413, Anesthesia Intra-op New Bag 03/20/2021 2:13 PM CDT 5 mcg/kg/min 4.95 mL/hr electrolyte-A (PLASMA-LYTE) 400 mL with albumin 150 mL, heparin 10 mL, mannitol 12.5 g, sodium bicarbonate 50 mL solution device prime, Continuous PRN, Starting on Fri03/20/21 at 0815, Anesthesia Intra-op New Bag 03/20/2021 8:15 AM CDT 660 mL electrolyte-A (PLASMA-LYTE) bolus Continuous PRN, Starting on Fri03/20/21 at 1148, Intra-Op New Bag 03/20/2021 3:47 PM CDT New Bag 03/20/2021 11:48 AM CDT 1,000 mL S urgical Site New Bag 03/20/2021 11:37 AM CDT EPINEPHrine in 0.9% sodium chloride 2 mg/100 mL (20 mcg/mL) infusion (premix) 0-0.2 mcg/kg/min ? 66 kg (0-39.6 mL/hr), 20 mcg/mL, intravenous, Titrated, Starting on Fri03/20/21 at 1515, Until Fri03/21/21 at 0821, Initial rate: 0.02 mcg/kg/min, Titrate: Up/Down, Titrate by: 0.01 mcg/kg/min, Every: 2 minutes, Goal: CI, CI Goal: 2.2-4 L/min/m2, STAT Rate/Dose Change 03/21/2021 12:00 AM CDT 0.01 mcg/kg/min 1.98 mL/hr Rate/Dose Change 03/20/2021 11:30 PM CDT 0.02 mcg/kg/min 3 .96 mL/hr Rate/Dose Change 03/20/2021 10:12 PM CDT 0.03 mcg/kg/min 5 .94 mL/hr fentaNYL (SUBLIMAZE) preservative free injection intravenous, As needed, Starting on Fri03/20/21 at 1202, Anesthesia Intra-op Given 03/20/2021 4:08 PM CDT 150 mc g Given 03/20/2021 12:55 PM CDT 250 mcg Given 03/20/2021 12:09 PM CDT 150 mcg furosemide (LASIX) 10 mg/mL injection intravenous, As needed, Starting on Fri03/20/21 at 1356, Anesthesia Intra-op Given 03/20/2021 1:56 PM CDT 10 mg heparin 1,000 unit/mL injection intravenous, As needed, Starting on Fri03/20/21 at 1436, Anesthesia Intra-op Given 03/20/2021 2:36 PM CDT 5,000 Units insulin regular (HumuLIN R, NovoLIN R) 100 unit/mL injection intravenous, As needed, Starting on Fri03/20/21 at 1438, Anesthesia Intra-op Given 03/20/2021 2:38 PM CDT 3 Units Lactated Ringer's (LR) 16 mL with adenosine (ADENOCARD) 14 mL, lidocaine (cardiac) (XYLOCAINE) 5 mL, magnesium sulfate 4 g solution intravenous, Continuous PRN, Starting on Fri03/20/21 at 1430, Anesthesia Intra-op New Bag 03/20/2021 2:30 PM CDT 14 mL lidocaine (XYLOCAINE) 40 mg/2 mL (2%) preservative free injection syringe intravenous, As needed, Starting on Fri03/20/21 at 1128, Anesthesia Intra-op Given 03/20/2021 11:28 AM CDT 60 mg mannitol 25 % injection intravenous, Administer over 30 Minutes, As needed, Starting on Fri03/20/21 at 0816, Anesthesia Intra-op Given 03/20/2021 8:16 AM CDT 25 g midazolam (VERSED) 1 mg/mL preservative free injection intravenous, Administer over 2 Minutes, As needed, Starting on Fri03/20/21 at 1123, Anesthesia Intra-op Given 03/20/2021 11:23 AM CDT 2 mg milrinone in dextrose 5% (PRIMACOR) 20 mg/100 mL (200 mcg/mL) infusion (premix) intravenous, Continuous PRN, Starting on Fri03/20/21 at 1450, Anesthesia Intra-op, Indications: acute decompensated heart failureIndications:acute decompensated heart failure New Bag 03/20/2021 2:50 PM CDT 0.375 mcg/kg/min 7.425 mL/hr nitroglycerin in dextrose 5% 50 mg/250 mL (200 mcg/mL) infusion (premix) intravenous, As needed, Starting on Fri03/20/21 at 1213, Anesthesia Intra-op Given 03/20/2021 12:10 PM CDT 50 mcg Given 03/20/2021 12:06 PM CDT 50 mcg norepinephrine (LEVOPHED) 8,000 mcg in dextrose 5% 250 mL (32 mcg/mL) infusion intravenous, Continuous PRN, Starting on Fri03/20/21 at 1411, Anesthesia Intra-op Rate/Dose Change 03/20/2021 3:55 PM CDT 0.1 mcg/kg/min 12.375 mL/hr Rate/Dose Change 03/20/2021 3:30 PM CDT 0.06 mcg/kg/min 7. 425 mL/hr New Bag 03/20/2021 2:11 PM CDT 0.04 mcg/kg/min 4.95 mL/ hr phenylephrine (FRANCIA-SYNEPHRINE) injection intravenous, As needed, Starting on Fri03/20/21 at 1349, Anesthesia Intra-op Given 03/20/2021 2:12 PM CDT 200 mc g Given 03/20/2021 2:04 PM CDT 200 mcg Given 03/20/2021 1:49 PM CDT 200 mcg potassium chloride injection intravenous, As needed, Starting on Fri03/20/21 at 1430, Anesthesia Intra-op Given 03/20/2021 2:30 PM CDT 11 mEq rocuronium (ZEMURON) injection intravenous, As needed, Starting on Fri03/20/21 at 1209, Anesthesia Intra-op Given 03/20/2021 12:09 PM CDT 20 mg Given 03/20/2021 11:28 AM CDT 50 mg sodium bicarbonate 8.4 % (1 mEq/mL) injection intravenous, Administer over 5 Minutes, As needed, Starting on Fri03/20/21 at 1421, Anesthesia Intra-op Given 03/20/2021 2:21 PM CDT 50 mEq sodium chloride 0.9% bolus intravenous, Continuous PRN, Starting on Fri03/20/21 at 1454, Anesthesia Intra-op New Bag 03/20/2021 2:54 PM CDT sodium chloride 0.9% infusion 10 mL/hr, intravenous, Continuous PRN, Hang bag with transfusion; infuse to keep IV line open in the event of a transfusion reaction., Starting on Fri03/19/21 at 1615 New Bag 03/20/2021 11:21 AM CDT tranexamic acid (CYKLOKAPRON) 1,000 mg in sodium chloride 0.9% 100 mL (10 mg/mL) infusion intravenous, Continuous PRN, Starting on Fri03/20/21 at 1140, Anesthesia Intra-op New Bag 03/20/2021 11:40 AM CDT 1 mg/kg/hr 6.6 mL/hr tranexamic acid (CYKLOKAPRON) 1,000 mg/10 mL (100 mg/mL) solution intravenous, As needed, Starting on Fri03/20/21 at 1137, Anesthesia Intra-op Given 03/20/2021 11:37 AM CDT 1,000 mg vancomycin 1,000 mg/200 mL in dextrose 5% (premix) 1,000 mg 1,000 mg, intravenous, Administer over 60 Minutes, Once, On Fri03/20/21 at 1045, For 1 dose, Pre-Op, Administer within 120 minutes of incision., Indications: Prophylaxis, SurgicalIndications:Prophylaxis , Surgical Given 03/20/2021 11:37 AM CDT 1,000 mg documented in this encounter Care Teams Oyster Floater Relationship Specialty Start Date End Date Hemant Lopez MD PCP - General 03/20/21 03/20/21 documented as of this encounter
--- OUTSIDE RECORDS SUMMARY | 2024-06-06 03:28 | XMS_ITS | Encounter Summary ---
Author Organization [facility] Healthcare Address [address] [place] [id number] Care Team Providers Care Traffic Survey Technician Name Role Phone No, Physician Primary Care Provider [phone] Encounter Details Date Type Department Care Team (Latest Contact Info) Description 03/16/2021 10:37 AM CDT - 03/16/2021 11:59 PM CDT Hospital Encounter [facility] [address] [place] [address] Discharge Disposition: Discharge to home or self care Social History Tobacco Use Types Packs/Day Years Used Date Smoking Tobacco: Never Assessed Sex and Gender Information Value Date Recorded Sex Assigned at Not on file 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 Gender Identity Not on file [...] by mouth nightly 30 tablet 2 03/25/2021 amLODIPine (NORVASC) 10 mg tablet Take 10 mg by mouth daily 1 furosemide (LASIX) 40 mg tablet Take 1 tablet (40 mg total) by mouth once for 1 dose 7 tablet 03/25/2021 1 nitroglycerin (NITROSTAT) 0.[address] 0.3 mg under the tongue every 5 (five) minutes as needed for chest pain 1 oxyCODONE (ROXICODONE) 10 mg tabletIndications: Pain Take [...] Comments XR CHEST 1 VIEW IP Routine 03/16/2021 11:02 AM CDT documented in this encounter Results * XR Chest 1 Vw Portable (03/16/2021 11:02 AM CDT) Anatomical Region Laterality Modality Body, Chest N/A Computed Radiogr aphy 03/16/2021 11:2 6 AM CDT Impressions 03/16/2021 11:26 AM CDT Negative study. Electronically signed by: Shamir Manley M.D. Narrative 03/16/2021 11:26 AM CDT EXAMINATION: XR CHEST 1 VIEW HISTORY: The patient is a 55-year-old male who is having a pre-op chest radiograph. TECHNIQUE: AP portable view of the chest. FINDINGS: Lungs clear. ??Cardiovascular structures unremarkable. Procedure Note Shamir Manley MD - 03/16/2021 EXAMINATION: XR CHEST 1 VIEW HISTORY: The patient is a 55-year-old male who is having a pre-op chest radiograph. TECHNIQUE: AP portable view of the chest. FINDINGS: Lungs clear. Cardiovascular structures unremarkable. IMPRESSION: Negative study. Electronically signed by: Shamir Manley M.D. us Bárbara Carver WATER SERVER IMG XR PROCEDURES Final R esult documented in this encounter Visit Diagnoses Not on filedocumented in this encounter Care Teams Traffic Survey Technician Relationship Specialty Start Date End Date No, Physician PCP - General 03/16/21 03/16/21 documented as of this encounter
--- OUTSIDE RECORDS SUMMARY | 2024-06-06 03:28 | XMS_ITS | Encounter Summary ---
Author Organization [facility] Healthcare Address [address] [place] [address] Care Team Providers Care Jack Setter Name Role Phone Hemant Lopez MD Primary Care Provider [phone] Encounter Details Date Type Department Care Team (Latest Contact Info) Description 07/07/2018 1:23 PM [facility] - 07/07/2018 4:55 PM [facility] Hospital Encounter [address] [address] Omar Schaeffer MD [address] [place] [address] Discharge Disposition: Discharge to home or self care Social History Tobacco Use Types Packs/Day Years Used Date Smoking Tobacco: Never Assessed Sex and Gender Information Value Date Recorded Sex Assigned at Not on file Legal Sex Male 12:12 PM [facility] Gender Identity Not on file Sexual Orientation Not on file documented as of this encounter Last Filed Vital Signs Vital Sign Reading Time Taken Comments Blood Pressure 147/96 07/07/2018 1:28 PM [facility] Pulse 77 07/07/2018 1:28 PM [facility] Temperature 36.8 ??C (98.2 ??F) 07/07/2018 1:28 PM CS T Respiratory Rate - - Oxygen Saturation 100% 07/07/2018 1:28 PM [facility] Inhaled Oxygen Concentration - - Weight 65.1 kg (143 lb 6.6 oz) 07/07/2018 1:28 P M [facility] Height 170.2 cm (5' 7 ) 07/07/2018 1:28 PM [facility] Body Mass Index 22.46 07/07/2018 1:28 PM [facility] documented in this encounter Discharge Disposition Disposition Code Departure Means Destination Discharge to home or self care documented in this encounter Plan of Treatment Not on file documented as of this encounter Procedures Procedure Name Priority Date/Time Associated Diagnosis Comments CBC WITH AUTO DIFFERENTIAL Routine 07/07/2018 2:13 PM [facility] LIPASE Routine 07/07/2018 2:13 PM [facility] COMPREHENSIVE METABOLIC PANEL Routine 07/07/2018 2:13 PM [facility] [address] [address] ABDOMEN PELVIS W CONTRAST Routine 07/07/2018 12:00 AM [facility] documented in this encounter Results * Lipase (07/07/2018 2:13 PM [facility] [employer] [facility]) Lipase 30 13 - 60 U/L 07/07/2018 2:54 PM [facility]ISTOR[facility] RESULTS 07/07/2018 2:13 PM [facility] 07/07/2018 2:31 PM [facility] us Yaritza Wilcox [employer] LAB BLOOD ORDERABLES Final R esult [facility] [employer] HISTORICAL RESULTS * (ABNORMAL) Comprehensive metabolic panel (07/07/2018 2:13 PM [facility] [employer]) Sodium 138 135 - 145 mmol/L 07/07/2018 2:54 PM [facility] [employer] HISTORICAL RESULTS Potassium 3.6 3.3 - 5.1 mmol/L 07/07/2018 2:54 PM [facility] [employer] HISTORICAL RESULTS Chloride 102 96 - 108 mmol/L 07/07/2018 2:54 PM [facility] [employer] [facility] HISTORICAL RESULTS Carbon Dioxide 26 22 - 32 mmol/L 07/07/2018 2:54 PM [facility] [employer] HISTORICAL RESULTS Anion Gap 10 7 - 16 07/07/2018 2:54 PM [facility] [employer] [facility] HISTORICAL RESULTS Glucose 122(H) 70 - 100 mg/dL 07/07/2018 2:54 PM [facility] [employer] [facility] HISTORICAL RESULTS BUN 9 8 - 25 mg/dL 07/07/2018 2:54 PM [facility] [employer] HISTORICAL RESULTS Creatinine 1.2 0.5 - 1.3 mg/dL 07/07/2018 2:54 PM [employer] HISTORICAL RESULTS Comment: NOTE: Estimated GFR (Cockroft-Gault) will NOT be calculated unless patient Height and Weight were entered. Also, Kidney Disease Stage (GFR) and Estimated GFR (Cockroft-Gault) will NOT be calculated if Creatinine result is <0.2. Kidney Disease Stage 82 mL/MIN 07/07/2018 2:54 PM [employer] HISTORICAL RESULTS Comment: NOTE; ??The GFR is an estimated value using the creatinine, sex, age, and race of the patient. THE Estimated Kidney Disease GFR is validated for AGES 18-70 YEARS STAGE ?mL/Min ?DESCRIPTION ??1 ?90 mL/min or more ?Normal or elevated GFR ??2 ? 60-89 mL/min ?Mildly decreased GFR ??3 ? 30-59 mL/min ?Moderately decreased GFR ??4 ? 15-29 mL/min ?Severely decreased GFR ??5 ? <15 mL/min ? Kidney failure or on dialysis @ Est GFR (Cockcroft-G) 66 ml/MIN 07/07/2018 2:54 PM [employer] HISTORICAL RESULTS Comment: Estimated GFR(Cockroft-Gault)is used to calculate patient medication dosage Calcium 8.9 8.6 - 10.3 mg/dL 07/07/2018 2:54 PM [employer] HISTORICAL RESULTS Total Protein 7.3 6.4 - 8.3 g/dL 07/07/2018 2:54 PM [employer] [facility] [employer] HISTORICAL RESULTS Albumin 3.9 3.5 - 5.2 g/dL Globulin 3.4 2.3 - 3.5 gm/dL 07/07/2018 2:54 PM [facility] HISTORICAL RESULTS Albumin/Globulin Ratio 1.1 1.1 - 1.8 07/07/2018 2:54 PM [employer] [employer] HISTORICAL RESULTS Total Bilirubin 0.2 0.0 - 1.2 mg/dL 07/07/2018 2:54 PM [employer] [employer] HISTORICAL RESULTS AST 18 0 - 40 U/L 07/07/2018 2:54 PM [facility] [employer] HISTORICAL RESULTS ALT 15 0 - 41 U/L Alkaline Phosphatase 99 40 - 129 U/L 07/07/2018 2:13 PM [facility] [employer] [facility] 07/07/2018 2:31 PM [facility] [employer] [facility] Yaritza Wilcox [employer] LAB BLOOD ORDERABLES Final R esult [facility] HISTORICAL RESULTS * (ABNORMAL) CBC with auto differential (07/07/2018 2:13 PM [facility] [employer]) WBC 6.1 3.8 - 9.9 X10 3/ul RBC 4.26(L) 4.30 - 5.80 x10 6/ul Hemoglobin 13.3 13.0 - 17.5 g/dL Hct 40.9 38.9 - 50.3 % MCV 96.0 81.3 - 96.4 fl MCH 31.2 27.1 - 33.3 pg MCHC 32.5 32.3 - 35.7 g/dl RDW 14.3 11.1 - 14.9 % Plt Count 304 150 - 400 x10 3/ul MPV 7.8(L) 9.1 - 12.3 fl Neut % 61.4 % Immature Gran % 0.2 % 9 2:34 PM [facility] HISTORICAL RESULTS Lymph % 29.7 % [place] % 8.0 % Eos % 0.5 % Baso % 0.2 % Absolute Neuts (auto) 3.8 1.7 - 6.5 x10 3/ul Immature Gran # 0.0 0.0 - 0.1 x10 3/ul Absolute Lymphs (auto) 1.8 0.8 - 3.3 x10 3/ul Absolute Monos (auto) 0.5 0.2 - 0.8 x10 3/ul Absolute Eos (auto) 0.0 0.0 - 0.5 x10 3/ul Absolute Basos (auto) 0.0 0.0 - 0.1 x10 3/ul Nucleat RBC Rel Count 0.0 #/100WBC Absolute Nucleated RBC 0.00 0.00 - 0.01 x10 3/ul Absolute Neutrophils 3800 200 - 8000 /ul 07/07/2018 2:34 PM [facility] HISTORICAL RESULTS 07/07/2018 2:13 PM [facility] [employer] [facility] 07/07/2018 2:31 PM [facility] Yaritza Wilcox [employer] LAB BLOOD ORDERABLES Final R esult [facility] HISTORICAL RESULTS * CT Abdomen Pelvis W Contrast (07/07/2018 12:00 AM [facility] [employer] [facility]) Anatomical Region Laterality Modality Body N/A Computed Tomogra phy 07/07/2018 Impressions 07/07/2018 4:07 PM [facility] [employer] [facility] ?? 1.Postoperative changes from partial colectomy with moderate thickening of the perianastamotic bowel as evidence for mild inflammation. ??The immediate upstream small bowel appears prominent without gross evidence of obstruction at this time. ??Recommend continued close monitoring of the patient's abdominal exam. 2.Mesenteric lymphadenopathy. ??This is likely reactive. ??Recommend close attention on follow-up. THIS IS AN ELECTRONICALLY VERIFIED FINAL REPORT 07/07/2018 4:04 PM - Electronically signed by Garrett Cervantes M.D. AG D: ??07/07/2018 4:04 PM T: Report ID: [id number] Reading Location: ??[id number] [EOD] Narrative 07/07/2018 4:07 PM [facility] [employer] [facility] EXAM DESCRIPTION: ??CT Abd/Pelvis W IV Contrast REASON FOR STUDY: ??History of Crohn's disease status post partial small bowel resection in ileostomy 2018 presenting with diarrhea and emesis x1 week TECHNIQUE: ??CT scan of the abdomen and pelvis performed with intravenous and without oral contrast using helical scanning technique with dynamic intravenous contrast injection. Reconstructed coronal and sagittal MPR images reviewed. All images stored on PACS. Automated exposure control was used as a dose optimization technique for this examination. CONTRAST TYPE/DOSE: ??100 Optiray 350 intravenous contrast was injected via the right forearm COMPARISON: ??06/15/2017 FINDINGS: LOWER CHEST: No significant pulmonary abnormalities. No effusion. LIVER: The liver is normal in size. ??No suspicious lesion is seen. GALLBLADDER: No stones identified. No wall thickening or inflammatory changes. BILE DUCTS: No intrahepatic or extrahepatic ductal dilatation. SPLEEN: Multiple granulomas are seen within the spleen. PANCREAS: No identified cystic or solid masses. No significant calcifications. No adjacent inflammation or peripancreatic fluid collections. Pancreatic duct not dilated. ADRENALS: Normal. KIDNEYS/URINARY TRACT: The kidneys are normal in size without hydronephrosis. ?? A 2 mm nonobstructing stone is seen within the right kidney. ??The bladder is partially distended. GI: The patient is status post partial colectomy with end to side anastomosis within the mid abdomen. ??There is moderate thickening of the perianastamotic small-bowel. ??There is prominence of the more upstream small bowel which appears nondilated and without evidence of obstruction. PERITONEUM: No gross free air free fluid is seen. ??There are enlarged mesenteric lymph nodes, likely reactive. ??For reference is a 9 mm mesenteric lymph (75). RETROPERITONEUM: No mass or adenopathy. REPRODUCTIVE: No significant abnormality. VASCULATURE: No abdominal aortic aneurysm. MUSCULOSKELETAL: Old nailed right proximal femur fracture seen OTHER: No other abnormality. Procedure Note Provider, MD David - 10/10/2020 EXAM DESCRIPTION: CT Abd/Pelvis W IV Contrast REASON FOR STUDY: History of Crohn's disease status post partial smallbowel resection in ileostomy 2018 presenting with diarrhea and emesis x1 week TECHNIQUE: CT scan of the abdomen and pelvis performed with intravenousand without oral contrast using helical scanning technique with dynamic intravenous contrast injection. Reconstructed coronal and sagittal MPRimages reviewed. All images stored on PACS. Automated exposure control was used as a dose optimization technique forthis examination. CONTRAST TYPE/DOSE: 100 Optiray 350 intravenous contrast was injected viathe right forearm COMPARISON: 06/15/2017 FINDINGS: LOWER CHEST: No significant pulmonary abnormalities. No effusion. LIVER: The liver is normal in size. No suspicious lesion is seen. GALLBLADDER: No stones identified. No wall thickening or inflammatorychanges. BILE DUCTS: No intrahepatic or extrahepatic ductal dilatation. SPLEEN: Multiple granulomas are seen within the spleen. PANCREAS: No identified cystic or solid masses. No significantcalcifications. No adjacent inflammation or peripancreatic fluid collections. Pancreaticduct not dilated. ADRENALS: Normal. KIDNEYS/URINARY TRACT: The kidneys are normal in size withouthydronephrosis. A 2 mm nonobstructing stone is seen within the right kidney. The bladderis partially distended. GI: The patient is status post partial colectomy with end to sideanastomosis within the mid abdomen. There is moderate thickening of theperianastamotic small-bowel. There is prominence of the more upstream small bowel which appears nondilated and without evidence of obstruction. PERITONEUM: No gross free air free fluid is seen. There are enlarged mesenteric lymph nodes, likely reactive. For reference is a 9 mmmesenteric lymph (75). RETROPERITONEUM: No mass or adenopathy. REPRODUCTIVE: No significant abnormality. VASCULATURE: No abdominal aortic aneurysm. MUSCULOSKELETAL: Old nailed right proximal femur fracture seen OTHER: No other abnormality. IMPRESSION: 1.Postoperative changes from partial colectomy with moderate thickening ofthe perianastamotic bowel as evidence for mild inflammation. The immediate upstream small bowel appears prominent without gross evidence ofobstruction at this time. Recommend continued close monitoring of the patient'sabdominal exam. 2.Mesenteric lymphadenopathy. This is likely reactive. Recommend close attention on follow-up. THIS IS AN ELECTRONICALLY VERIFIED FINAL REPORT 07/07/2018 4:04 PM - Electronically signed by Garrett Cervantes M.D. AG T: Report ID: [id number] Reading Location: [place] [id number] [EOD] Yaritza Wilcox [employer] T[employer] IMG CT PROCEDURES Final Resu lt documented in this encounter Visit Diagnoses Not on filedocumented in this encounter Care Teams Jack Setter Relationship Specialty Start Date End Date Hemant Lopez MD PCP - General 07/07/18 03/15/21 documented as of this encounter
--- OUTSIDE RECORDS SUMMARY | 2024-06-06 03:28 | XMS_ITS | Encounter Summary ---
Author Organization [facility] Healthcare Address [address] [place] [address] Care Team Providers Care Numerical Analysis Group Manager Name Role Phone Hemant Lopez MD Primary Care Provider [phone] Encounter Details Date Type Department Care Team (Late st Contact Info) Description 03/20/2021 11:30 AM CDT - 03/20/2021 4:30 PM CDT Surgery [facility] Operating Room [address] [place] [address] Malathi Curry MD [id number] [place] [address] Coronary artery bypass graft x 2 using left internal mammary artery and right saphenous vein which was endoscopically harvested, sternal plating; intraoperative transesophageal echocardiogram as per anesthesia Surgery Details Date/Time Status Location OR Service Patient Class Case Class Case Type Trauma Case? 03/20/2021 11:30 AM Posted OPERATING ROOM OR 14 Cardiothoracic Inpatient Elective Panel 1 Procedure LRB Anes Op Region Wound Class Comments Coronary artery bypass graft x 2 using left internal mammary artery and right saphenous vein which was endoscopically harvested, sternal plating; intraoperative transesophageal echocardiogram as per anesthesia N/A General Chest Class I - Clean Coronary artery bypass graft x 2 using left internal mammary artery and right saphenous vein which was endoscopically harvested, sternal plating; intraoperative transesophageal echocardiogram as per anesthesia CLOSURE STERNAL - WITH PLATES N/A General Chest Class II - Clean Contaminated Coronary artery bypass graft x 2 using left internal mammary artery and right saphenous vein which was endoscopically harvested, sternal plating; intraoperative transesophageal echocardiogram as per anesthesia Surgeon Surgeon Role Service Panel Malathi Curry MD Primary Cardiothoracic 1 documented in this encounter Social History Tobacco Use Types Packs/Day Years Used Date Smoking Tobacco: Every Day Sex and Gender Information Value Date Recorded Sex Assigned at Not on file Legal 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 Gender Identity Not on file Sexual Orientation Not on file documented as of this encounter Last Filed Vital Signs Vital Sign Reading Time Taken Comments Blood Pressure 141/96 03/20/2021 10:18 AM CDT le ft Pulse 90 03/20/2021 4:30 PM CDT Temperature 36.7 ??C (98.1 ??F) 03/20/2021 9:02 AM CD T Respiratory Rate 14 03/20/2021 4:30 PM CDT Oxygen Saturation 98% 03/20/2021 9:02 AM CDT Inhaled Oxygen Concentration - - Weight 66 kg (145 lb 8.1 oz) 03/20/2021 3:52 AM CDT Height 170.2 cm (5' 7 ) 03/16/2021 7:20 AM CDT Body Mass Index 24.27 03/21/2021 1:43 PM CDT documented in this encounter Discharge Summaries * Gina Anne NP - 03/25/2021 1:19 PM CDT Physician Discharge Summary Patient ID: Jeanie Cali [id number] 1965 (55 y.o.) Admit date: 03/16/2021 Discharge date and time: 03/25/2021 Attending Physician: Malathi Curry MD Primary Diagnosis: Coronary artery disease Secondary Diagnoses: COPD, Crohn's, hyperlipidemia, hypertension Procedures performed during hospitalization: Coronary artery bypass grafting x 2 (ANDERSON to LAD, saphenous vein graft to diagonal branch) Bilateral pectoralis major myofascial flaps Sternal plating HPI: This is a 55 y.o. male with a history of HTN, Crohn's disease s/p multiple bowel resections onHumira therapy, who noted chest pressure starting approximately 3 weeks ago that was substernal, moderate in intensity, nonradiating, brought on by exertion, and relieved by rest. He notes episodes of this pain 2-3 times a week since it started. He had left-heart catheterization that showed tight proximal LAD lesion with a large amount of calcification and a larger diagonal branch with proximal disease as well. We offered him coronary artery bypass grafting to address his advanced coronary artery disease not easily amenable to percutaneous therapy. He is also on immunosuppressive medications including Humira and Methotrexate for his Crohn's disease, so I offered him sternal plating to aid sternal healing and stability following surgery. Hospital Course: Jeanie Cali was taken to the operating room on 03/20/2021 for CABGx2 , performed by Dr. Proctor. Jeanie Cali was taken to the CVICU in stable condition postoperatively. When hemodynamicallystable, the patient was weaned from inotropic and ventilator support. The patent was transferred to9 telemetry in stable condition. The patient progressed as expected. Aggressive physical therapy and pulmonary toilet were initiated. Diet was advanced as tolerated. Chest tubes were discontinued without difficulty. Wounds remained clean, dry, and intact. Once the patient was medically stable, Jeanie Cali was discharged to home. Post Op Complications: None Significant labs: Lab Results Component Value Date WBC 5.2 03/25/2021 HGB 8.3 (L) 03/25/2021 HCT 25.7 (L) 03/25/2021 LABPLAT 236 03/25/2021 Lab Results Component Value Date SODIUM 134 (L) 03/25/2021 POTASSIUM 4.0 03/25/2021 CHLORIDE 99 03/25/2021 CO2 24 03/25/2021 ANIONGAP 11 03/25/2021 GLUCOSE 98 03/25/2021 BUNSER 12 03/25/2021 CREATININE 0.98 03/25/2021 CALCIUM 9.0 03/25/2021 ALBUMIN 3.4 (L) 03/25/2021 ALKPHOS 96 03/16/2021 ALT 21 03/16/2021 AST 21 03/16/2021 BILITOT 0.2 03/16/2021 Lab Results Component Value Date APTT 28 03/24/2021 INR 1.1 03/24/2021 Discharge Medications: Discharge Medication List as of 03/25/2021 12:43 PM START taking these medications Details acetaminophen (TYLENOL) 325 mg tablet Take 2 tablets (650 mg total) by mouth every 6 (six) hours asneeded for pain, Starting 03/25/2021, Normal aspirin 81 mg enteric coated tablet Take 1 tablet (81 mg total) by mouth daily, Starting 03/25/2021, Until Fri03/25/2022, Normal clopidogreL (PLAVIX) 75 mg tablet Take 1 tablet (75 mg total) by mouth daily, Starting 03/25/2021, Until Fri03/25/2022, Normal docusate sodium (COLACE) 100 mg capsule Take 1 capsule (100 mg total) by mouth 2 (two) times a day,Starting 03/26/2021, Normal furosemide (LASIX) 40 mg tablet Take 1 tablet (40 mg total) by mouth once for 1 dose, Starting 03/25/2021, Normal oxyCODONE (ROXICODONE) 10 mg tablet Take 1 tablet (10 mg total) by mouth every 4 (four) hours as needed for pain, Starting 03/25/2021, Normal rosuvastatin (CRESTOR) 20 mg tablet Take 1 tablet (20 mg total) by mouth nightly, Starting 03/25/2021, Until Fri03/25/2022, Normal Discharge Medication List as of 03/25/2021 12:43 PM STOP taking these medications amLODIPine (NORVASC) 10 mg tablet Comments: Reason for Stopping: nitroglycerin (NITROSTAT) 0.3 mg SL tablet Comments: Reason for Stopping: Discharge Medication List as of 03/25/2021 12:43 PM CONTINUE these medications which have NOT CHANGED Details albuterol (PROAIR RESPICLICK) 90 mcg/actuation inhaler Inhale 2 puffs every 6 (six) hours as neededfor wheezing, Historical Med buPROPion XL (WELLBUTRIN XL) 150 mg 24 hr tablet Take 150 mg by mouth daily, Historical Med carvediloL (COREG) 6.25 mg tablet Take 6.25 mg by mouth 2 (two) times a day with meals, Historical Med cholestyramine (QUESTRAN) 4 gram packet Take 1 packet by mouth 3 (three) times a day with meals, Historical Med ergocalciferol (VITAMIN D) 50,000 unit capsule Take 50,000 Units by mouth once a week, Historical Med hydrocortisone (ANUSOL-HC) 2.5 % rectal cream Insert into the rectum 2 (two) times a day, Historical Med Physical Exam at discharge: Please see progress note from day of discharge. Discharge Instructions: Physical therapy instructions provided. No tub baths. OK to shower. Incision open to air. Activity:avoid strenuous exercise, no heavy lifting, pushing, pulling greater than 5-10 lbs for 4 to 6 weeksand no driving for 4 weeks. Limit overhead reaching, general use of the upper extremity for two additional weeks. Discharge Diet: Heart Healthy Diet Outpatient Follow-Up: Future Appointments Date Time Provider Department Center 04/26/2021 9:15 AM Malathi Curry MD [facility] Follow-up with PCP in 4-6 weeks Follow-up with Earl in 2-4 weeks Notify physician with fevers, chills, nausea, or vomiting, SOB, chest pain, or wound drainage. HHRN to draw CBC and CMP on and fax results to [phone]. Arrangements were made for home health nurse to evaluate patient for wound assessment, medication compliance, general post-op assessment, and suture removal. Information on cardiac rehab was provided to the patient, and will be discussed at post-op appointment. Jeanie Cali was discharged and given a full set of written discharge instructions, and prescriptions. These were reviewed with the patient prior to discharge. He fully understood them and signedthe release form. He was discharged in a wheelchair in no acute distress, accompanied by spouse. Signed: Gina Anne NP Cardiothoracic Surgery [facility] [phone] 11:54 PM Cosigned by Antelmo Proctor MD at 04/26/2021 2:55 PM SERVER DEVELOPER ER DEVELOPER ER DEVELOPER documented in this encounter Discharge Instructions * Discharge Instructions* Pat White RN - 03/25/2021 12:43 PM CDT Images from the original note were not included. Coronary Artery Disease WHAT YOU NEED TO KNOW: Coronary artery disease (CAD) is narrowing of the arteries to your heart caused by a buildup of plaque. Plaque is made up of cholesterol and other substances. The narrowing in your arteries decreasesthe amount of blood that can flow to your heart. This causes your heart to get less oxygen. DISCHARGE INSTRUCTIONS: Call 911 for any of the following: ?? You have any of the following signs of a heart attack: ?? Squeezing, pressure, or pain in your chest that lasts longer than 5 minutes or returns ?? Discomfort or pain in your back, neck, jaw, stomach, or arm ?? Trouble breathing ?? Nausea or vomiting ?? Lightheadedness or a sudden cold sweat, especially with chest pain or trouble breathing Contact your healthcare provider if: ?? You have chest pain that is more frequent, or you have chest pain at rest. ?? You have questions or concerns about your condition or care. Cardiac rehabilitation: Your healthcare provider may recommend that you attend cardiac rehabilitation (rehab). This is a program run by specialists who will help you safely strengthen your heart and reduce the risk for more heart disease. The plan includes exercise, relaxation, stress management, and heart- healthy nutrition. Healthcare providers will also check to make sure any medicines you are taking are working. Medicines: You may need any of the following: ?? Blood pressure medicines are given to lower your blood pressure. These medicines may include ACEinhibitors and beta-blockers. LUDIVINA inhibitors help keep your blood vessels relaxed and open, which helps keep blood flowing into your heart. Beta-blockers keep your heart pumping strongly and regularly. This helps keep your heart from working too hard to get oxygen. ?? Cholesterol medicines help lower blood cholesterol levels. ?? Nitrates , such as nitroglycerin, relax the arteries of your heart so it gets more oxygen. They help to relieve your chest pain. ?? Antiplatelets , such as aspirin, help prevent blood clots. Take your antiplatelet medicine exactly as directed. These medicines make it more likely for you to bleed or bruise. If you are told to take aspirin, do not take acetaminophen or ibuprofen instead. ?? Blood thinners help prevent blood clots. Examples of blood thinners include heparin and warfarin. Clots can cause strokes, heart attacks, and . The following are general safety guidelines to follow while you are taking a blood thinner: ?? Watch for bleeding and bruising while you take blood thinners. Watch for bleeding from your gumsor nose. Watch for blood in your urine and bowel movements. Use a soft washcloth on your skin, and a soft toothbrush to brush your teeth. This can keep your skin and gums from bleeding. If you shave,use an electric shaver. Do not play contact sports. ?? Tell your dentist and other healthcare providers that you take anticoagulants. Wear a bracelet or necklace that says you take this medicine. ?? Do not start or stop any medicines unless your healthcare provider tells you to. Many medicines cannot be used with blood thinners. ?? Tell your healthcare provider right away if you forget to take the medicine, or if you take too much. ?? Warfarin is a blood thinner that you may need to take. The following are things you should be aware of if you take warfarin. ?? Foods and medicines can affect the amount of warfarin in your blood. Do not make major changes to your diet while you take warfarin. Warfarin works best when you eat about the same amount of vitamin K every day. Vitamin K is found in green leafy vegetables and certain other foods. Ask for more information about what to eat when you are taking warfarin. ?? You will need to see your healthcare provider for follow-up visits when you are on warfarin. Youwill need regular blood tests. These tests are used to decide how much medicine you need. ?? Do not take certain medicines without asking your healthcare provider first. These include NSAIDs, herbal or vitamin supplements, or hormones (estrogen or progestin). ?? Take your medicine as directed. Contact your healthcare provider if you think your medicine is not helping or if you have side effects. Tell him or her if you are allergic to any medicine. Keep a list of the medicines, vitamins, and herbs you take. Include the amounts, and when and why you take them. Bring the list or the pill bottles to follow-up visits. Carry your medicine list with you in case of an emergency. Follow up with your healthcare provider as directed: You may need to return for other tests. You may also be referred to a cardiac surgeon. Write down your questions so you remember to ask them during your visits. Manage CAD: ?? Do not smoke. Nicotine and other chemicals in cigarettes and cigars can cause heart and lung damage. Ask your healthcare provider for information if you currently smoke and need help to quit. E-cigarettes or smokeless tobacco still contain nicotine. Talk to your healthcare provider before you use these products. ?? Exercise regularly. Exercise at least 30 minutes each day, on most days of the week. Exercise helps to lower high cholesterol and high blood pressure. It can also help you maintain a healthy weight. Ask your healthcare provider about the kind of exercise you should do and how to get started. ?? Maintain a healthy weight. If you are overweight, talk to your healthcare provider about how to lose weight. A weight loss of 10% can improve your heart health. ?? Eat heart-healthy foods. Include fresh fruits and vegetables in your meal plan. Choose low-fat foods, such as skim or 1% fat milk, low-fat cheese and yogurt, fish, chicken (without skin), and leanmeats. Eat two 4-ounce servings of fish high in omega-3 fats each week, such as salmon, fresh tuna,and bolton. Do not eat foods that are high in sodium, such as canned foods, potato chips, salty snacks, and cold cuts. Put less table salt on your food. ?? Limit or do not drink alcohol. A drink of alcohol is 12 ounces of beer, 5 ounces of wine, or 1??ounces of liquor. ?? Manage other health conditions. Follow your healthcare provider's advice on how to manage other conditions that can affect your heart health. These include diabetes, high blood pressure, and high cholesterol. You may need to take medicines for these conditions and make other lifestyle changes. ?? Ask if you should have a flu vaccine. The flu can be dangerous for a person who has CAD. The fluvaccine is available every year in the fall. ?? 2017 [employer] Information is for End User's use only and may not be sold, redistributed or otherwise used for commercial purposes. All illustrations and images included in CareNotes?? are the copyrighted property of [employer] or [employer]. The above information is an mental health aides teacher only. It is not intended as medical advice for individual conditions or treatments. Talk to your doctor, nurse or pharmacist before following any medical regimen to see if it is safe and effective for you. * Discharge Instr - Diet* Dayna West RD - 03/21/2021 1:46 PM CDT Recommend to eat a generally healthy diet that includes a variety of fruits, vegetables, whole-grain breads, low-fat dairy products, beans, lean meats, and fish. Avoid saturated and trans fats and limit sodium to less than 2,300 mg per day. Avoid foods like desserts, fast food, fried/breaded foods,deli meats, sausage, victor, and gravies/sauces. Call [phone] to speak with a dietitian about any diet related concerns. Recommend to follow up with outpatient nutrition counseling, ask your doctor for a referral and call [phone] to make an appointment. documented in this encounter Medications at Time [...] for 1 dose 7 tablet 03/25/2021 1 oxyCODONE (ROXICODONE) 10 mg tabletIndications: Pain Take 1 tablet (10 mg total) by mouth every 4 (four) hours as needed for pain 42 tablet 03/25/2021 1 documented as of this encounter Ordered Prescriptions Prescription Sig Dispense Quantity Refills Last Filled Start Date End Date docusate sodium (COLACE) 100 mg capsuleIndications :constipation Take 1 capsule (100 mg total) by mouth 2 (two) times a day 60 capsule 03/26/2021 acetaminophen (TYLENOL) 325 mg tablet Take 2 tablets (650 mg total) by mouth every 6 (six) hours as needed for pain 30 tablet 03/25/2021 rosuvastatin (CRESTOR) 20 mg tablet Take 1 tablet (20 mg total) by mouth nightly 30 tablet 2 03/25/2021 clopidogreL (PLAVIX) 75 mg tablet Take 1 tablet (75 mg total) by mouth daily 30 tablet 3 03/25/2021 aspirin 81 mg enteric coated tabletIndications: Myocardial Reinfarction Prevention Take 1 tablet (81 mg total) by mouth daily 30 tablet 2 03/25/2021 oxyCODONE (ROXICODONE) 10 mg tabletIndications: Pain Take 1 tablet (10 mg total) by mouth every 4 (four) hours as needed for pain 42 tablet 03/25/2021 1 furosemide (LASIX) 40 mg tablet Take 1 tablet (40 mg total) by mouth once for 1 dose 7 tablet 03/25/2021 1 documented in this encounter Discharge Disposition Disposition Code Departure Means Destination Discharge to home, home health skilled care documented in this encounter Progress Notes * Gina Anne, LINING FINISHER - 03/25/2021 12:30 PM CDT Cardiothoracic Surgery Progress Note Jeanie Cali 1965 Hospital DAY#9 Subjective: Patient resting in RA. Has no complaints- ready to go home. OBJECTIVE: Temp: [36.3 ??C (97.4 ??F)-37.2 ??C (98.9 ??F)] 37.2 ??C (98.9 ??F) Pulse: [79-125] 92 BP: (100-120)/(71-94) 120/79 Resp: [16-21] 18 SpO2: [92 %-95 %] 92 % Cardiac Rhythm: NSR 80s Wt Readings from Last 3 Encounters: 03/22/21 70.3 kg (154 lb 15.7 oz) I/O this shift: In: 120 [P.O.:120] Out: 200 [Urine:200] I/O last 2 completed shifts: In: 1309 [P.O.:1299; I.V.:10] Out: 1800 [Urine:1800] FB -491ml for 24 hrs (-1128ml for stay) Physical Exam Vitals reviewed. Constitutional: Appearance: Normal appearance. HENT: Nose: Nose normal. Mouth/Throat: Mouth: Mucous membranes are moist. Eyes: Pupils: Pupils are equal, round, and reactive to light. Cardiovascular: Rate and Rhythm: Normal rate and regular rhythm. Pulmonary: Effort: Pulmonary effort is normal. Breath sounds: Examination of the right-lower field reveals decreased breath sounds. Examination ofthe left-lower field reveals decreased breath sounds. Decreased breath sounds present. No wheezing,rhonchi or rales. Abdominal: General: Bowel sounds are normal. Palpations: Abdomen is soft. Musculoskeletal: Cervical back: Normal range of motion. Right lower leg: No edema (trace). Left lower leg: No edema (trace). Skin: General: Skin is warm. 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 Mental Status: He is alert and oriented to person, place, and time. Psychiatric: Mood and Affect: Mood normal. Behavior: Behavior normal. Access: central line Labs: Reviewed Recent Labs Lab Units 03/25/21 0658 03/24/21 0744 03/23/21 0451 WBC K/cumm 5.2 4.3 3.9 HEMOGLOBIN g/dL 8.3* 8.3* 8.7* HEMATOCRIT % 25.7* 26.0* 26.0* PLATELETS K/cumm 236 201 150 Recent Labs Lab Units 03/25/21 0658 03/24/21 0744 03/23/21 0451 SODIUM mmol/L 134* 136 135 POTASSIUM PLASMA mmol/L 4.0 3.8 4.7 CHLORIDE mmol/L 99 99 97 CO2 mmol/L 24 27 28 BUN SERUM mg/dL 12 15 15 CREATININE mg/dL 0.98 1.13 1.30 CALCIUM mg/dL 9.0 8.6 8.6 MAGNESIUM mg/dL 1.9 1.9 1.8 Recent Labs Lab Units 03/24/21 0744 03/20/21 1634 03/20/21 0625 PROTIME (PT) sec 12.0 15.1* -- INR 1.1 1.4* -- APTT sec 28 29 74* Imaging: CXR ok Current Scheduled Medications: aspirin, 81 mg, oral, Daily buPROPion XL, 150 mg, oral, Daily carvediloL, 6.25 mg, oral, BID with meals (bkfst, dinner) cholestyramine-aspartame, 1 packet, oral, Daily - 0600 clopidogreL, 75 mg, oral, Daily [START ON 03/26/2021] docusate sodium, 100 mg, oral, BID famotidine, 20 mg, oral, BID polyethylene glycol, 17 g, oral, Daily rosuvastatin, 20 mg, oral, Nightly senna-docusate, 2 tablet, oral, BID sodium chloride 0.9%, 0.5-20 mL, intra-catheter, Q8H CYNDEE Transferred to Assessment and Plan: Principal Problem: Coronary artery disease involving [place] heart without angina pectoris Secondary Problems: COPD Crohn's colitis Hyperlipidemia Hpertension S/p Coronary artery bypass grafting x 2 (ANDERSON to LAD, saphenous vein graft to diagonal branch). Bilateral pectoralis major myofascial flaps. Sternal plating by Dr. Curry 03/20/21 PT/OT: Aim for ambulation 4x daily. Up to chair for all meals Pulmonary Toilet: IS every hour while awake. Wean O2 for sats >92%. Lasix 40mg PO every day CVS: ST with soft pressures. Continue ASA, Coreg 6.25, crestor, Plavix. Diet: Tolerating diet GI: Bowel Regimen.+ BM and lots of gas Renal: BUN/Scr stable. Lasix 40m PO - replete KCL D/L/T: DC wires today- may DC central line if get PIV DVT/Stress prophylaxis: Lovenox (hold for wires), Pepcid Consults: [facility] Discharge Planning: Home with and HHRN today. Gina Anne NP Cardiothoracic Surgery [facility] Medicine Office: 03/25/2021 12:30 PM * Wilbur Elliott MD - 03/25/2021 10:54 AM CDT Daily Progress SUBJECTIVE: Mr. Cali is feeling ok Has sinus tachycardia on telemetry. OBJECTIVE: Vitals: 03/25/21 0200 03/25/21 0400 03/25/21 0600 03/25/21 0758 BP: 116/73 120/79 BP Location: Right arm Right arm Patient Position: Lying Lying Pulse: 107 104 110 92 Resp: 18 18 Temp: 36.4 ??C (97.5 ??F) 37.2 ??C (98.9 ??F) TempSrc: Oral Oral SpO2: 93% 92% Weight: Height: Intake/Output Summary (Last 24 hours) at 03/25/2021 1054 Last data filed at 03/25/2021 1005 Gross per 24 hour Intake 1189 ml Output 1275 ml Net -86 ml Scheduled Medications Medication Dose Route Frequency ??? aspirin enteric coated tablet 81 mg 81 mg oral Daily ??? buPROPion XL (WELLBUTRIN XL) 24 hour tablet 150 mg 150 mg oral Daily ??? carvediloL (COREG) tablet 6.25 mg 6.25 mg oral BID with meals (bkfst, dinner) ??? cholestyramine-aspartame (QUESTRAN LIGHT) 4 gram packet 1 packet 1 packet oral Daily - 0600 ??? clopidogreL (PLAVIX) tablet 75 mg 75 mg oral Daily ??? [START ON 03/26/2021] docusate sodium (COLACE) capsule 100 mg 100 mg oral BID ??? famotidine (PEPCID) tablet 20 mg 20 mg oral BID ??? polyethylene glycol (MIRALAX) packet 17 g 17 g oral Daily ??? rosuvastatin (CRESTOR) tablet 20 mg 20 mg oral Nightly ??? senna-docusate (PERICOLACE) 8.6-50 mg per tablet 2 tablet 2 tablet oral BID ??? sodium chloride 0.9% flush 0.5-20 mL 0.5-20 mL intra-catheter Q8H CYNDEE LABS: Recent Labs Lab Units 03/25/21 0658 WBC K/cumm 5.2 HEMOGLOBIN g/dL 8.3* HEMATOCRIT % 25.7* PLATELETS K/cumm 236 Recent Labs Lab Units 03/25/21 0733 03/25/21 0658 03/25/21 0151 SODIUM mmol/L -- 134* -- POTASSIUM PLASMA mmol/L -- 4.0 -- CHLORIDE mmol/L -- 99 -- CO2 mmol/L -- 24 -- ANIONGAP mmol/L -- 11 -- GLUCOSE mg/dL -- 112 -- POC GLUCOSE MONITOR mg/dL 98 -- < > BUN SERUM mg/dL -- 12 -- CREATININE mg/dL -- 0.98 -- CALCIUM mg/dL -- 9.0 -- ALBUMIN g/dL -- 3.4* -- < > = values in this interval not displayed. No results found for: BNP No results found for: TROPONINI Exam General: in no apparent distress and well developed and well nourished Neuro: Alert and oriented x 3, moves all extremities well HEENT: normocephalic, atraumatic, Lungs: symmetric, unlabored, clear to auscultation bilaterally chest tube present Heart: S1,S2, regular rate & rhythm, no murmurs, rubs, or gallops sternotomy Abdomen: soft, non-tender, non-distended, bowel sounds present Extremities: no LE edema ASSESSMENT/PLAN: Coronary artery disease -status post CABG having good recovery on low-dose of norepinephrine currently - ANDERSON to LAD and SVG to diagonal branch - on dual antiplatelet therapy History of essential hypertension - off all the pressors blood Sinus tachycardia ?? HLD -on high-intensity statin ?? Crohn's disease ?? COPD -breathing is stable ?? Wilbur Elliott MD, [facility] 03/25/2021 10:54 AM * Gina Anne NP - 03/24/2021 10:42 AM CDT Cardiothoracic Surgery Progress Note Jeanie Walsh Cali 1965 Hospital DAY#8 Subjective: Patient resting in RA. Denies soreness or SOB. Feels quite good. Appetite is slow to return. + BM. Ready for home this weekend. No complaints. OBJECTIVE: Temp: [36.5 ??C (97.7 ??F)-37.1 ??C (98.7 ??F)] 36.7 ??C (98.1 ??F) Pulse: [99-120] 100 BP: (106-120)/(59-73) 120/73 Resp: [14-18] 18 SpO2: [92 %-100 %] 98 % Cardiac Rhythm: Sinus tachycardia 99 Wt Readings from Last 3 Encounters: 03/22/21 70.3 kg (154 lb 15.7 oz) I/O this shift: In: - Out: 725 [Urine:725] I/O last 2 completed shifts: In: 840 [P.O.:840] Out: 565 [Urine:565] FB +275ml for 24 hrs (-537ml for stay) Physical Exam Vitals reviewed. Constitutional: Appearance: Normal appearance. HENT: Nose: Nose normal. Mouth/Throat: Mouth: Mucous membranes are moist. Eyes: Pupils: Pupils are equal, round, and reactive to light. Cardiovascular: Rate and Rhythm: Regular rhythm. Tachycardia present. Comments: ST 105. AV wires taped and intact Pulmonary: Effort: Pulmonary effort is normal. Breath sounds: Examination of the right-lower field reveals decreased breath sounds. Examination ofthe left-lower field reveals decreased breath sounds. Decreased breath sounds present. No wheezing,rhonchi or rales. Abdominal: General: Bowel sounds are normal. Palpations: Abdomen is soft. Musculoskeletal: Cervical back: Normal range of motion. Right lower leg: Edema (trace) present. Left lower leg: Edema (trace) present. Skin: General: Skin is warm. Comments: Sternal incision silver foam C/D/I Neurological: General: No focal deficit present. Mental Status: He is alert and oriented to person, place, and time. Psychiatric: Mood and Affect: Mood normal. Behavior: Behavior normal. Access: central line Labs: Reviewed Recent Labs Lab Units 03/24/21 0744 03/23/21 0451 03/22/21 0358 WBC K/cumm 4.3 3.9 7.6 HEMOGLOBIN g/dL 8.3* 8.7* 7.9* HEMATOCRIT % 26.0* 26.0* 23.3* PLATELETS K/cumm 201 150 102* Recent Labs Lab Units 03/24/21 0744 03/23/21 0451 03/22/21 0358 SODIUM mmol/L 136 135 135 POTASSIUM PLASMA mmol/L 3.8 4.7 3.9 CHLORIDE mmol/L 99 97 99 CO2 mmol/L 27 28 26 BUN SERUM mg/dL 15 15 8 CREATININE mg/dL 1.13 1.30 1.03 CALCIUM mg/dL 8.6 8.6 8.6 MAGNESIUM mg/dL 1.9 1.8 1.9 Recent Labs Lab Units 03/24/21 0744 03/20/21 1634 03/20/21 0625 PROTIME (PT) sec 12.0 15.1* -- INR 1.1 1.4* -- APTT sec 28 29 74* Imaging: Todays CXR shows no significant pulmonary congestion, gas in stomach Current Scheduled Medications: aspirin, 81 mg, oral, Daily buPROPion XL, 150 mg, oral, Daily carvediloL, 6.25 mg, oral, BID with meals (bkfst, dinner) cholestyramine-aspartame, 1 packet, oral, Daily - 0600 clopidogreL, 75 mg, oral, Daily famotidine, 20 mg, oral, BID furosemide, 40 mg, oral, Once polyethylene glycol, 17 g, oral, Daily potassium chloride ER, 40 mEq, oral, Once rosuvastatin, 20 mg, oral, Nightly senna-docusate, 2 tablet, oral, BID sodium chloride 0.9%, 0.5-20 mL, intra-catheter, Q8H CYNDEE Transferred to Assessment and Plan: Principal Problem: Coronary artery disease involving [place] heart without angina pectoris Secondary Problems: COPD Crohn's colitis Hyperlipidemia Hpertension S/p Coronary artery bypass grafting x 2 (ANDERSON to LAD, saphenous vein graft to diagonal branch). Bilateral pectoralis major myofascial flaps. Sternal plating by Dr. Curry 03/20/21 PT/OT: Aim for ambulation 4x daily. Up to chair for all meals Pulmonary Toilet: IS every hour while awake. Wean O2 for sats >92%. Lasix 40mg PO every day CVS: ST with soft pressures. Continue ASA, Coreg 6.25, crestor, Plavix. Remove wires today. Diet: Tolerating diet GI: Bowel Regimen.+ BM and lots of gas Renal: BUN/Scr stable. Lasix 40m PO - replete KCL D/L/T: DC wires today- may DC central line if get PIV DVT/Stress prophylaxis: Lovenox (hold for wires), Pepcid Consults: [facility] Discharge Planning: forming process worker notified, likely home with and HHRN tomorrow. Gina Anne NP Cardiothoracic Surgery [facility] Office: 03/24/2021 10:42 AM * Gina Anne NP - 03/24/2021 10:07 AM CDT Atrial and ventricular pacing clipped due to tension. VSS. Telemetry: No distress noted. Patient instructed to remain on bedrest for one hour and notify the nurse if shortness of breath or chest paindevelops. Please reach out with any questions or concerns. Gina Bedolla NP Cardiothoracic Surgery [facility] Office: 110:07 AM * Carmelina Vu PTA - 03/23/2021 1:40 PM CDT Physical Therapy PT PROGRESS NOTE Jeanie Cali 55 y.o. 1965 Past Medical History: Diagnosis Date ??? COPD (chronic obstructive pulmonary disease) (CMS/HCC) ([facility]) ??? Crohn's colitis (CMS/HCC) ([facility]) ??? Hyperlipidemia ??? Hypertension ??? Tobacco abuse No past surgical history on file. Patient Active Problem List Diagnosis ??? Coronary artery disease involving [place] heart without angina pectoris TIME IN: 1340 TIME OUT: 1405 SUBJECTIVE I just walked around the room with therapy a few minutes ago. I'm not in a galeana, I'm going to take the time I need to get better. MENTAL STATUS/ORIENTATION: alert PAIN: Pre-therapy pain level: denies pain Pain location: n/a Pain intervention: n/a Post-therapy pain level/response to intervention: unchanged OBJECTIVE PRECAUTIONS: fall, sternal, cardiac APPEARANCE/POSTURE: patient exiting restroom in room, no alarms in use or lines attached. VITAL SIGNS: Resting heart rate: 102 BPM Post-activity heart rate: 130 BPM Resting O2 sat: 96% on room air Post-activity O2 sat: 86-92% during amb on room air; returned to 1L. O2 as patient apparently supposed to be wearing O2. MOBILITY DOCUMENTATION: Bed Mobility/Transfers: sit to supine with HOB partially raised, vc's for technique, with SBA. Sit to/from stand Indep. Gait: amb without device with SBA at slow pace, vc's for PLB, 250'x1. TREATMENT: Visual and verbal education for standing HEP; issued HEP. APPEARANCE/POSTURE (end of session): supine in bed, call light in reach. EDUCATION: Transfers, gait, HEP, PLB, home walking progression. RESPONSE TO EDUCATION: needs reinforcement ASSESSMENT Activity tolerance/response to P.T.: Patient is able to walk without device with SBA 250'; would benefit from continued education re. Rationale of sternal precautions, strengthening and walking progression, as he seems disinterested in learning rationale of education offered at this time. Barriers to learning: Physical and Emotional Barriers to discharge: Decreased endurance and Stairs at home Patient continues progressing toward previously set goals which remain appropriate at this time. PLAN Patient to be seen for P.T. 3-5 times per week to address previously established deficits and goals. DISCHARGE LOCATION RECOMMENDATIONS: HOME with intermittent assist and HHPT If this is the last note, please consider this the discharge summary. Cosigned by Kellie Granger, PT at 03/23/2021 2:50 PM CDT * Carmelina Vu PTA - 03/23/2021 11:24 AM CDT Physical Therapy Unavailable, patient reports having taken a walk ~ 20 minutes ago; plan to see patient after lunch for PT activities. Carmelina Vu PTA 03/23/21 11:24 AM * Stevie Vicente NP - 03/23/2021 10:15 AM CDT Cardiothoracic Surgery Progress Note Jeanie Cali 1965 Hospital DAY#7 Subjective: Patient resting in bed on 1L NC. Having some shortness of breath with activity. Has some right shoulder pain but well controlled with current regimen. OBJECTIVE: Temp: [36.8 ??C (98.3 ??F)-37.6 ??C (99.7 ??F)] 36.8 ??C (98.3 ??F) Pulse: [105-122] 107 BP: (107-135)/(64-93) 116/64 Resp: [16-20] 18 SpO2: [92 %-100 %] 99 % Cardiac Rhythm: Sinus tachycardia 105 Wt Readings from Last 3 Encounters: 03/22/21 70.3 kg (154 lb 15.7 oz) I/O this shift: In: - Out: 115 [Urine:115] I/O last 2 completed shifts: In: 460 [P.O.:460] Out: 1900 [Urine:1900] FB -1140ml for 24 hrs (-812ml for stay) Physical Exam Vitals reviewed. Constitutional: Appearance: Normal appearance. HENT: Nose: Nose normal. Mouth/Throat: Mouth: Mucous membranes are moist. Eyes: Pupils: Pupils are equal, round, and reactive to light. Cardiovascular: Rate and Rhythm: Regular rhythm. Tachycardia present. Comments: ST 105. AV wires taped and intact Pulmonary: Effort: Pulmonary effort is normal. Breath sounds: Examination of the right-lower field reveals decreased breath sounds. Examination ofthe left-lower field reveals decreased breath sounds. Decreased breath sounds present. No wheezing,rhonchi or rales. Abdominal: General: Bowel sounds are normal. Palpations: Abdomen is soft. Musculoskeletal: Cervical back: Normal range of motion. Right lower leg: Edema (trace) present. Left lower leg: Edema (trace) present. Skin: General: Skin is warm. Comments: Sternal incision silver foam C/D/I Neurological: General: No focal deficit present. Mental Status: He is alert and oriented to person, place, and time. Psychiatric: Mood and Affect: Mood normal. Behavior: Behavior normal. Access: central line Labs: Reviewed Recent Labs Lab Units 03/23/2145003/22/218 03/21/21 1337 WBC K/cumm 3.9 7.6 8.6 HEMOGLOBIN g/dL 8.7* 7.9* 8.5* HEMATOCRIT % 26.0* 23.3* 25.1* PLATELETS K/cumm 150 102* 110* Recent Labs Lab Units 03/23/21 04503/22/21 0358 03/21/21 1337 SODIUM mmol/L 135 135 135 POTASSIUM PLASMA mmol/L 4.7 3.9 4.4 CHLORIDE mmol/L 97 99 100 CO2 mmol/L 28 26 23 BUN SERUM mg/dL 15 8 10 CREATININE mg/dL 1.30 1.03 1.08 CALCIUM mg/dL 8.6 8.6 8.6 MAGNESIUM mg/dL 1.8 1.9 2.4 Recent Labs Lab Units 03/20/21 1634 03/20/21 0625 03/19/21 0542 PROTIME (PT) sec 15.1* -- -- INR 1.4* -- -- APTT sec 29 74* 66* Imaging: Todays CXR shows no significant pulmonary congestion, gas in stomach Current Scheduled Medications: acetaminophen, 1,000 mg, oral, Q6H CYNDEE aspirin, 81 mg, oral, Daily buPROPion XL, 150 mg, oral, Daily carvediloL, 6.25 mg, oral, BID with meals (bkfst, dinner) cholestyramine-aspartame, 1 packet, oral, Daily - 0600 clopidogreL, 75 mg, oral, Daily [Held by Provider] enoxaparin, 40 mg, subcutaneous, Daily-2100 famotidine, 20 mg, oral, BID furosemide, 40 mg, intravenous, Daily polyethylene glycol, 17 g, oral, Daily rosuvastatin, 20 mg, oral, Nightly senna-docusate, 2 tablet, oral, BID sodium chloride 0.9%, 0.5-20 mL, intra-catheter, Q8H CYNDEE Transferred to Assessment and Plan: Principal Problem: Coronary artery disease involving [place] heart without angina pectoris Secondary Problems: COPD Crohn's colitis Hyperlipidemia Hpertension S/p Coronary artery bypass grafting x 2 (ANDERSON to LAD, saphenous vein graft to diagonal branch). Bilateral pectoralis major myofascial flaps. Sternal plating by Dr. Curry 03/20/21 PT/OT: Aim for ambulation 4x daily. Up to chair for all meals Pulmonary Toilet: IS every hour while awake. Wean O2 for sats >92%. Lasix 40mg IV daily CVS: ST. SBP 107-135. Continue ASA, Coreg 6.25, crestor, Plavix. Remove wires tomorrow Diet: Tolerating diet GI: Bowel Regimen. Add suppository Renal: BUN/Scr 15/1.30, slight increase. Lasix 40m IV daily, change to PO tomorrow. No KCL for K 4.7 D/L/T: Keep central line, d/c wires tomorrow DVT/Stress prophylaxis: Lovenox (hold for wires), Pepcid Consults: [facility] Discharge Planning: forming process worker notified, likely home with and HHRN over the weekend Stevie Vicente NP Cardiothoracic Surgery [facility] Office: 03/23/2021 12:21 PM Cosigned by Malathi Curry MD at 03/23/2021 4:47 PM CDT * Denis Reeder MD - 03/22/2021 3:17 PM CDT Images from the original note were not included. Critical Care Medicine Daily Progress Team: pink Interval History: ROLY overnight. Pain controlled HPI Patient is a 55 y.o. male with history of HTN, COPD, Crohn's Disease, and tobacco abuse that presented with pressure like chest pain with associated SOB and diaphoresis. Cath at [facility] showed multiple vessel disease and was transferred for evaluation for CABG. ?? Arrives to ICU intubated following CABG x2 ANDERSON to LAD and SVG to diagonal. Post op HELLEN with mild depression in LV function, trace TR. On milrinone 0.3 and epinephrine 0.04. Backup pacing, 100 sinus natively. Scheduled Medications: acetaminophen, 1,000 mg, oral, Q6H CYNDEE albuterol, 2.5 mg, nebulization, Q6H CYNDEE (RT) aspirin, 81 mg, oral, Daily buPROPion XL, 150 mg, oral, Daily carvediloL, 6.25 mg, oral, BID with meals (bkfst, dinner) cholestyramine-aspartame, 1 packet, oral, Daily - 0600 clopidogreL, 75 mg, oral, Daily enoxaparin, 40 mg, subcutaneous, Daily-2100 famotidine, 20 mg, oral, BID polyethylene glycol, 17 g, oral, Daily rosuvastatin, 20 mg, oral, Nightly senna-docusate, 2 tablet, oral, BID sodium chloride 0.9%, 0.5-20 mL, intra-catheter, Q8H CYNDEE Continuous Medications: PRN Medications: ondansetron ??? oxyCODONE ??? ramelteon ??? sodium chloride 0.9% Objective Vitals: Most Recent: Vitals: 03/22/21 1505 BP: 125/78 Pulse: 114 Resp: 18 Temp: 37.1 ??C (98.8 ??F) SpO2: 92% 24hr Min/Max: Temp Min: 37.1 ??C (98.8 ??F) Max: 37.1 ??C (98.8 ??F) Pulse Min: 101 Max: 130 BP Min: 108/71 Max: 133/81 Resp Min: 14 Max: 30 SpO2 Min: 85 % Max: 100 % LDA: Introducer 03/20/21 Right Internal jugular (Active) Placement Date/Time: 03/20/21 (c) 1239 Hand Hygiene Performed: Yes Orientation: Right Location: Internal jugular Description (optional): multi-lumen access catheter (MAC) Number of days: 1 PA Catheter 8 Fr. Right Other (Comment) (Active) Placement Date/Time: 03/20/21 (c) 1239 Site Prep: Chlorhexidine Sheath Size: 8 Fr. Line Orientation: Right Sheath Insertion Site: Other (Comment) Number of days: 1 Arterial Line 03/20/21 Right Radial (Active) Placement Date/Time: 03/20/21 (c) 1236 Size: 20 G Orientation: Right Location: Radial Securement Method: Taped;Transparent dressing Number of days: 1 Pacer Wires (Active) Placement Date/Time: 03/20/21 1600 Type of Pacing Wires: Atrial and Ventricular Number of days: 0 Urethral Catheter Straight-tip (Active) Placement Date: 03/20/21 Inserted by: Cherri Patton RN Catheter Type: Straight-tip Tube Size (Fr.): 16 Fr Catheter Balloon Size: 10 mL Urine Returned: Yes Number of days: 1 Y Chest Tube A and B A Mediastinal 32 Fr. B Left Pleural 32 Fr. (Active) Placement Date: 03/20/21 Inserted by: Dr. Curry Tube Number A: A Chest Tube Location A: Mediastinal Size (Fr.) A: 32 Fr. Tube Number B: B Chest Tube Orientation B: Left Chest Tube Location B: Pleural Size (Fr.) B: 32 Fr. Number of days: 1 NG/OG Tube Orogastric 16 Fr Center mouth (Active) Placement Date/Time: 03/20/21 1500 NG/OG Tube Type: Orogastric NG/OG Tube Size: 16 Fr Tube Location: Center mouth Number of days: 0 Vent settings: I/O: Date 03/21/21 0700 - 03/22/21 0659 03/22/21 0700 - 03/23/21 0659 Shift 8636-4562 1017-7119 24 Hour Total 0654-1367 3118-6315 24 Hour Total INTAKE P.O. 710 490 1200 460 460 I.V.(mL/kg) 482(6.8) 337(4.8) 819(11.7) Shift Total(mL/kg) 962(13.5) 907(12.9) 1869(26.6) 460(6.5) 460(6.5) OUTPUT Urine(mL/kg/hr) 1325(1.5) 1250(1.5) 2575(1.5) 1200 1200 Chest Tube 370 40 410 Shift Total(mL/kg) 1695(23.7) 1290(18.4) 2985(42.5) 1200(17.1) 1200(17.1) NET -733 -383 -1116 -740 -740 Weight (kg) 71.4 70.3 70.3 70.3 70.3 70.3 Physical Exam: Gen: oriented, sitting in chair HEENT: NC/AT, PERRLA, EOMI Neck: Supple, Trachea Midline CV: NSR, S1 and S2, Distal pulses intact, Warm periphery, cap refill < 3 seconds Pulm: CTAB Abd: Soft, Nontender, hypoactive BS : Elizabeth with yellow, clear urine Ext: trace pedal edema Skin: Warm, Dry, intact, surgical sites appropriately dress and C/D/I Neuro: strength and sensation intact Lab/Radiology/Diagnostic Review: Laboratory review: Lab results in the last 24 hours: Recent Results (from the past 24 hour(s)) POCT glucose Collection Time: 03/21/21 7:29 PM Result Value Ref Range Glucose, POC 154 70 - 199 mg/dL Magnesium Collection Time: 03/22/21 3:58 AM Result Value Ref Range Magnesium 1.9 1.4 - 2.5 mg/dL CBC without differential Collection Time: 03/22/21 3:58 AM Result Value Ref Range WBC 7.6 3.8 - 9.9 K/cumm Hgb 7.9 (L) 13.0 - 17.5 g/dL Hct 23.3 (L) 38.9 - 50.3 % Plt 102 (L) 150 - 400 K/cumm MPV 8.6 (L) 9.1 - 12.3 fL RBC 2.43 (L) 4.30 - 5.80 M/cumm MCV 95.9 81.3 - 96.4 fL MCH 32.5 27.1 - 33.3 pg MCHC 33.9 32.3 - 35.7 g/dL RDW CV 13.5 11.1 - 14.9 % RDW SD 47.7 35.7 - 48.1 fL NRBC abs 0.00 0.00 - 0.01 K/cumm Renal function panel Collection Time: 03/22/21 3:58 AM Result Value Ref Range Sodium 135 135 - 145 mmol/L Potassium, pl 3.9 3.3 - 4.9 mmol/L Chloride 99 97 - 110 mmol/L CO2 26 22 - 32 mmol/L Anion gap 10 2 - 15 mmol/L BUN 8 8 - 25 mg/dL Creatinine 1.03 0.80 - 1.30 mg/dL Glucose 130 70 - 199 mg/dL Calcium 8.6 8.5 - 10.3 mg/dL Phosphorus, pl 3.4 2.3 - 4.5 mg/dL Albumin 3.6 3.5 - 5.0 g/dL eGFR Collection Time: 03/22/21 3:58 AM Result Value Ref Range eGFR 81 mL/min/1.73 m2 XR Chest 1 View - Portable - in AM Result Date: 03/21/2021 Extubation. No pneumothorax or failure. Electronically signed by: Neftali Kaminski M.D. XR Chest 1 View - Portable Result Date: 03/21/2021 Expected postsurgical changes. No pneumothorax or failure. Electronically signed by: Neftali Kaminski M.D. Plan: Neuro: #Acute pain - tylenol, oxycodone CV: POD 2 CABG x2 - ASA, plavix - dc swan - statin - [place] sinus rhythm Pulmonary: - 2L NC - pulm hygiene GI: Diet: tolerating - Dietitian following PUD PPx: n/a Bowel regimen: miralax, pericolace Endo: SSI Renal: Lasix today Heme: DVT PPX: SCD's ID: periop abx ICU standards of care: Goals of care: Full code Denis Reeder MD EM-Critical Care Fellow [phone] Cosigned by Haroldo Rivas MD at 03/24/2021 6:00 AM CDT * Stephen Allen MD - 03/22/2021 11:36 AM CDT Daily Progress SUBJECTIVE: Mr. Cali in discontinue was maintaining good oxygen saturation therefore O2 was discontinued however at that time of my review oxygen is 88% will resume oxygen. Has sinus tachycardia on telemetry. OBJECTIVE: Vitals: 03/22/21 0945 03/22/21 1000 03/22/21 1015 03/22/21 1030 BP: 122/72 BP Location: Patient Position: Pulse: 113 117 123 114 Resp: 14 Temp: TempSrc: SpO2: 98% 93% 91% Weight: Height: Intake/Output Summary (Last 24 hours) at 03/22/2021 1136 Last data filed at 03/22/2021 0945 Gross per 24 hour Intake 2109 ml Output 3135 ml Net -1026 ml Scheduled Medications Medication Dose Route Frequency ??? acetaminophen (TYLENOL) tablet 1,000 mg 1,000 mg oral Q6H CYNDEE ??? albuterol 2.5 mg /3 mL (0.083 %) nebulizer solution 2.5 mg 2.5 mg nebulization Q4H CYNDEE (RT) ??? aspirin enteric coated tablet 81 mg 81 mg oral Daily ??? buPROPion XL (WELLBUTRIN XL) 24 hour tablet 150 mg 150 mg oral Daily ??? carvediloL (COREG) tablet 6.25 mg 6.25 mg oral BID with meals (bkfst, dinner) ??? cholestyramine-aspartame (QUESTRAN LIGHT) 4 gram packet 1 packet 1 packet oral Daily - 0600 ??? clopidogreL (PLAVIX) tablet 75 mg 75 mg oral Daily ??? enoxaparin (LOVENOX) syringe 40 mg 40 mg subcutaneous Daily-2100 ??? famotidine (PEPCID) tablet 20 mg 20 mg oral BID ??? polyethylene glycol (MIRALAX) packet 17 g 17 g oral Daily ??? rosuvastatin (CRESTOR) tablet 20 mg 20 mg oral Nightly ??? senna-docusate (PERICOLACE) 8.6-50 mg per tablet 2 tablet 2 tablet oral BID ??? sodium chloride 0.9% flush 0.5-20 mL 0.5-20 mL intra-catheter Q8H CYNDEE LABS: Recent Labs Lab Units 03/22/21 0358 WBC K/cumm 7.6 HEMOGLOBIN g/dL 7.9* HEMATOCRIT % 23.3* PLATELETS K/cumm 102* Recent Labs Lab Units 03/22/21 0358 03/20/21 1207 03/16/21 1902 SODIUM mmol/L 135 < > 142 POTASSIUM PLASMA mmol/L 3.9 < > 4.3 CHLORIDE mmol/L 99 < > 101 CO2 mmol/L 26 < > 30 ANIONGAP mmol/L 10 < > 11 GLUCOSE mg/dL 130 < > 128 POC GLUCOSE MONITOR -- < > -- BUN SERUM mg/dL 8 < > 15 CREATININE mg/dL 1.03 < > 1.44* CALCIUM mg/dL 8.6 < > 9.0 ALBUMIN g/dL 3.6 < > 4.1 ALK PHOS Units/L -- -- 96 ALT Units/L -- -- 21 AST Units/L -- -- 21 BILIRUBIN TOTAL mg/dL -- -- 0.2 < > = values in this interval not displayed. No results found for: BNP No results found for: TROPONINI Exam General: in no apparent distress and well developed and well nourished Neuro: Alert and oriented x 3, moves all extremities well HEENT: normocephalic, atraumatic, Lungs: symmetric, unlabored, clear to auscultation bilaterally chest tube present Heart: S1,S2, regular rate & rhythm, no murmurs, rubs, or gallops sternotomy Abdomen: soft, non-tender, non-distended, bowel sounds present Extremities: no LE edema ASSESSMENT/PLAN: Coronary artery disease -status post CABG having good recovery on low-dose of norepinephrine currently - ANDERSON to LAD and SVG to diagonal branch - on dual antiplatelet therapy History of essential hypertension - off all the pressors blood Sinus tachycardia ?? HLD -on high-intensity statin ?? Crohn's disease ?? COPD -breathing is stable ?? Stephen Allen MD, MSN, ANP-[facility] 03/22/2021 11:36 AM * Gina Mayer, OT - 03/22/2021 8:55 AM CDT Occupational Therapy NOTE / SESSION TYPE: Initial Evaluation Patient Name: Jeanie Cali Date of : 1965 Age / Sex: 55 y.o. / male Room: [place] [address] Admit Date: 03/16/2021 Date of Service: 03/22/21 Time In: 845 Time Out: 916 Primary Diagnosis: Coronary artery disease involving [place] heart without angina pectoris HPI: Jeanie Cali is a 55 y.o. male who presents with chest pain, shortness of breath, diaphoresis. 03/20 s/p CABG X 2 ANDERSON TO LAD, SVG TO DIAGONAL, extubated 03/20 Notable History: CAD, HTN, COPD Past Medical History: Diagnosis Date ??? COPD (chronic obstructive pulmonary disease) ([facility]) ([facility]) ??? Crohn's colitis ([facility]) ([facility]) ??? Hyperlipidemia ??? Hypertension ??? Tobacco abuse No past surgical history on file. Precautions (Including Weight-Bearing): Fall risk and Sternal precautions Caregiver Present for Session (Yes or No): No SUBJECTIVE: Patient Comment: I have COPD, so I'm always a little short of breath. C/o nausea Pain Assessment: Pre-therapy pain level: 6 / 10 Pain location: sternal incisional Pain intervention(s): awaiting pain meds- RN to issue following antinausea medication Post-therapy pain level: 8 / 10 Pain scale used: 0-10 SCALE Prior Living Environment and Level of Function: Lives with: who is available to assist at d/c Receives assistance from / other social supports available: none Living environment (Type of residence / Entrance accessibility): 1-story house/ trailer, number of outside stairs: 5 with handrail, number of inside stairs: basement flight with handrail to laundry and man cave that patient does access. Bathroom location and setup: Tub/shower combination and shower chair Bathroom equipment available: Shower chair Home Mobility equipment available: Straight cane and Standard walker Home ADL equipment available: None Prior level of function: INDEP BADL, SHAREDS IADL. 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 Social roles / Hobbies: NONE STATED Patient / Family goal(s): GET BACK TO WORK [employer] Fall(s) within the last 6 months: No OBJECTIVE: Appearance: Presentation upon OT arrival: Patient Sitting in bedside recliner Presentation upon OT departure: Patient Supine with head of bed elevated Bed / chair alarm in place and activated upon OT departure: None Observed Call light within arms reach of patient at end of session: NO - PATIENT WITH NURSING PROVIDING BEDSIDE CARE Completed patient handoff and notified SALES OPERATIONS CONSULTANT / RN, name: SNEHA, of patient's location and functional status upon completion of session Vital Signs: Heart rate at rest: 108 bpm SPO2 at rest: 98 % ON 2L Heart rate with activity: 119 bpm SPO2 with activity: 84 % ON ROOM AIR - IMPROVED TO 88% WITH PLB UNABLE TO SUSTAIN. APPLIED O2 AND IMPROVED TO 98% Oxygen LPM: RA ON ARRIVAL. REPLACED O2 DURING SESSION Blood pressure at rest: NOT MEASURING Blood pressure with activity: NOT MEASURING Cognitive / Perceptual Assessment: Overall Cognitive Status: At baseline Arousal: Alert Orientation: Oriented x4 (person, place, time, and situation) Following commands: 100% Safety Judgement: Good awareness of safety precautions Problem Solving: Able to problem solve independently Behavior: Reluctant to participate WITH TUBES/LINES IN PLACE Communication: WNL Cognitive Screening: (Short Blessed Test) SCORE NORMAL WITH A SINGLE MENTAL TRACKING/SEQUENCING ERROR Answer Max Error Error Score Weight Sub-Score 1. What year is it now? 2020 1 0 4 0 2. What month is it now? Repeat this phrase after me and remember it. Dagoberto Dunn [address] [place] [address]. Number of trialto learning (1) max 3 OCT 1 0 3 0 3. About what time is it without looking at your watch (within 1 hour?) Response: 930 Actual Time: 850 1 0 3 0 4. Count backwards from 20 to 1. Jonathan correctly sequenced #'s ALL CORRECT []20 []19 []18 [] 17 []16 []15 [] 14 []13 []12 []11 [] 10 []9 []8 [] 7 [] 6 []5 []4 []3 []2 []1 2 02 0 5. Say the months of the year in reverse. [x] D [x] N [x]O [x] S [x] A [x]JL [x]JU [x]MY [x]A []M [x]F [x] J 2 1 2 2 6. Repeat the name and address I asked you to remember. Dagoberto Dunn [address] [place] [address]. [x] Dagoberto [x] Shaun [x]42 [x][facility] [x][place] 5 0 2 0 A weighted error score of 9 or greater indicates a need for further assessment. Total Weighted Error Score = 2 (a) Scoring 0 = No errors, 1 = 1 error, 2 = 2 or more errors, (b) An answer of either [facility] or [facility] is acceptable. UE ROM / Strength / Coordination: AROM AND RESISTANCE APPLIED LIMITED DUE TO STERNAL PRECAUTIONS (A)ROM - Right: 90 SHOULDER FLEX/ABD WITH STERNAL PRECAUTIONS, IR AND ALL ELSE WFL Strength - Right: GROSSLY AT LEAST 3+/5 SHOULDER, 4-/5 ELBOW, 5/5 COMPOSITE FINGER FLEX (A)ROM - Left: 90 SHOULDER FLEX/ABD WITH STERNAL PRECAUTIONS, IR AND ALL ELSE WFL Strength - Left: GROSSLY AT LEAST 3+/5 SHOULDER, 4-/5 ELBOW, 5/5 COMPOSITE FINGER FLEX Hand Dominance: Right Research Nurse Practitioner Strength (Right) NORMAL Research Nurse Practitioner Strength (Left): NORMAL Right Coordination / Sensation: LIMITED 5 TH DIGIT CONTACT, SMOOTH, FAST, AND ACCURATE SERIAL OPPOSITION. SENSATION NOT TESTED Left Coordination / Sensation: LIMITED 5 TH DIGIT CONTACT. SMOOTH, FAST, AND ACCURATE SERIAL OPPOSITION. SENSATION NOT TESTED. Balance: Static sitting balance: GOOD Dynamic sitting balance: GOOD Static standing balance: GOOD Dynamic standing balance: GOOD MINUS WITHOUT DEVICE Mobility / Transfers: Bed mobility (Components & Assistance): CGA FOR LOWER LE SIT->SUPINE Transfer(s): SIT<->STAND WITHOUT UE ASSIST WITH CGA. PIVOT WITH SUPERVISION WITHOUT DEVICE. TOILET TRANSFER LOCATION: SWING LOW TOILET OVERALL ASSIST LEVEL: INCIDENTAL TOUCHING ASSISTANCE DEVICE: NO DEVICE ADDITIONAL DOCUMENTATION: NO UE ASSIST Activities of Daily Living / Living Skills: UE dressing: DEFERRED DUE TO MULTIPLE LINES/TUBES. Lower Body Dressing: Patient completed lower body dressing of Underwear while Sitting on EOB with overall Close supervision / verbal cues. Patient required assistance for threading / unthreading RLE underwear and threading / unthreading LLE underwear. NOT OVER HIPS DUE TO CATHETER IN PLACE. USED CROSS LE METHOD WITHOUTDIFFICULTY Footwear: Patient completed footwear of Footie(s) while Supine with head of bed elevated with overall Minimalassistance. Patient required assistance for donning / doffing right sock / footie and donning / doffing left sock / footie - DUE TO LINES. ABLE TO ASSUME CROSS LE FOR METHOD. Other: TOILETING HYGIENE ONLY - WHILE SEATED WITH SET UP. PROVIDED EDUCATION RE: STERNAL PRECAUTIONS WITH APPLICATION TO ADL ASSESSMENT: Rehab Potential (Prognosis): good Problem List: Patient has impairments including: Decreased mobility, Decreased endurance, DecreasedADL independence and Pain. Barriers to Discharge: Medical complications and Wound Care PLAN: OT Discharge Recommendations this date: Location: Home WITH FAMILY Supervision: Intermittent Follow-up therapy recommendations: Continue OT in Acute Care setting with no post-discharge OT services required Frequency of therapy: 5-7 times / week Intervention / Education needs: ADL training, Functional transfer training, Precautions education, Pursed lip breathing / Relaxation techniques, Energy conservation techniques and RESPIRATORY HEP, STANDING TOLERANCE Education provided: Patient has been educated on OT plan of care, Compensatory ADL strategies, Bed mobility training, Functional transfer training, Safety education, Pursed lip breathing / Relaxationtechniques and STERNAL, SHOWER CHAIR/DME USE AFTER D/C precautions. Education completed via explanation and demonstration. Patient verbalized understanding. Short Term Goals / Care Plan: Multi-Disciplinary Problems (from Occupational Therapy) Active Problems Problem: Balance Start Date: 03/22/21 Goal Start Date Expected End Date End Date STG - Maintains static standing balance without upper extremity support 03/22/21 03/29/21 -- Goal Details: FOR 10-12 MINUTE ADL ACTIVITY WITH SUPERVISION 1 TIME. Problem: Bathing Start Date: 03/22/21 Goal Start Date Expected End Date End Date STG - Patient will bathe body 03/22/21 03/29/21 -- Goal Details: IN SITTING/STANDING COMPONENT WITH SUPERVISION 1 TIME. Problem: Dressings Lower Extremities Start Date: 03/22/21 Goal Start Date Expected End Date End Date STG - Patient to complete lower body dressing 03/22/21 03/29/21 -- Goal Details: INCLUDING ITEM RETRIEVAL FOR UNDERWEAR/FOOTIES WITH SUPERVISION 1 TIME. Problem: Dressing Upper Extremities Start Date: 03/22/21 Goal Start Date Expected End Date End Date STG - Patient will don shirt - Pullover or Button 03/22/21 03/29/21 -- Goal Details: USING PATIENT'S OWN CLOTHING IF AVAILABLE WITH SUPERVISION 1 TIME. Problem: Transfers Start Date: 03/22/21 Goal Start Date Expected End Date End Date STG - Patient will perform toilet transfer 03/22/21 03/29/21 -- Goal Details: WITH MOD INDEP 1 TIME. Goal Start Date Expected End Date End Date STG - Patient will perform tub/shower transfer 03/22/21 03/29/21 -- Goal Details: SIMULATED STEP OVER WITH CGA WITHOUT GRAB BARS <->SHOWER CHAIR 1 TIME. Problem: Precautions Start Date: 03/22/21 Goal Start Date Expected End Date End Date STG - Patient will demonstrate precautions consistently during ADL tasks/functional mobility. 03/22/21 03/29/21 -- Goal Details: STERNAL PRECAUTIONS. If this is the last note, consider this the discharge summary Gina Mayer OT 03/22/21 * Janel Roberts MD - 03/22/2021 7:35 AM CDT Cardiothoracic Surgery Progress Note Jeanie Cali 1965 [facility] DAY#6 03/21: CABGv2 (ANDERSON to LAD, SVG to diag), sternal plate closure Subjective: - No acute events overnight - Having pain, but says it's controlled - No nausea/vomiting, some belching, minimal flatus - OOB this am Objective Vitals: Pulse: [85-130] 121 Resp: [14-30] 20 SpO2: [85 %-100 %] 100 % Arterial Line BP: (99-165)/(45-66) 128/55 PAP: 26/11 (03/22 600) CVP: 2 mmHg (03/22 600) PCWP: -- CO: 5.5 L/min (03/22 135) CI: 3.1 L/min/m2 (03/22 135) SVO2: -- Pacemaker Overdrive Pacing: -- Cardiac Rhythm: Normal sinus rhythm (10/28 0400) Pacer Mode: VVI (03/22 0000) Wt Readings from Last 3 Encounters: 03/22/21 70.3 kg (154 lb 15.7 oz) I/O last 2 completed shifts: In: 1869 [P.O.:1050; I.V.:819] Out: 2985 [Urine:2575; Chest Tube:410] Physical Exam Alert, oriented, no distress Sitting up in the chair Right neck with swan and TLC Normocephalic Nl s1/s2, no murmurs Decreased BS bilaterally, no wheezing Abdomen soft, NT/ND WWP, minimal LE edema Chest tube output: 410 serosanguinous, airleak: No, suction: -20mmHg Access: central line, swan, picc, peripheral IV and midline Recent Labs Lab Units 03/22/21 0358 03/21/21 1337 03/21/21 0359 WBC K/cumm 7.6 8.6 7.4 HEMOGLOBIN g/dL 7.9* 8.5* 8.0* HEMATOCRIT % 23.3* 25.1* 23.9* PLATELETS K/cumm 102* 110* 103* Recent Labs Lab Units 03/22/21 0358 03/21/21 1337 03/21/21 0359 SODIUM mmol/L 135 135 139 POTASSIUM PLASMA mmol/L 3.9 4.4 4.8 CHLORIDE mmol/L 99 100 107 CO2 mmol/L 26 23 24 BUN SERUM mg/dL 8 10 12 CREATININE mg/dL 1.03 1.08 1.28 CALCIUM mg/dL 8.6 8.6 8.6 Recent Labs Lab Units 03/20/21 1634 03/20/21 0625 03/19/21 0542 03/16/21 1902 03/16/21 1050 PROTIME (PT) sec 15.1* -- -- -- 10.7 INR 1.4* -- -- -- 1.0 APTT sec 29 74* 66* < > 149* < > = values in this interval not displayed. Recent Labs Lab Units 03/20/219 03/20/21200303/20/21 1738 PH ART 7.38 7.38 7.34* PCO2 ART mmHg 38 38 42 PO2 ART mmHg 126* 79* 107 BASE EXC ART mmol/L -3 -2 -2 Drips: None Imaging: Today's CXR fairly clear, chest tubes in place Assessment and Plan: 55 y.o. male annie hx of COPD, crohn's HL, HTN who presented with unstable angina (EF 70% preop) now s/p 2v CABG (ANDERSON to LAD, SVG to diag) on 03/20. Neuro: tylenol ATC, prn oxy CVS: Hemodynamically stable in NSR, asa/plavix, ppx lovenox, BP controlled, P 100-110s, start home coreg today; lasix today for overload Pulm: Good O2 sat on NC, encourage IS, wean O2 as tolerated, pulmonary toilet, lasix likely today, dc cts later if output remains low through the morning GI: No nausea, bowel regimen, crohn's home meds Renal: UOP adequate, lasix today, Cr 1.00 today, keep elizabeth ID: Periop abx Endo: ISS for BG control Heme: ppx lovenox today likely, asa/plavix for grafts Prophylaxis: ppx lovenox Dispo: CVU, okay for floor today, dc imani Roberts MD Cardiothoracic Surgery [facility] * Denis Reeder MD - 03/21/2021 2:02 PM CDT Images from the original note were not included. Critical Care Medicine Daily Progress Team: pink Interval History: ROLY overnight. 0.02 levophed. HPI Patient is a 55 y.o. male with history of HTN, COPD, Crohn's Disease, and tobacco abuse that presented with pressure like chest pain with associated SOB and diaphoresis. Cath at [facility] showed multiple vessel disease and was transferred for evaluation for CABG. ?? Arrives to ICU intubated following CABG x2 ANDERSON to LAD and SVG to diagonal. Post op HELLEN with mild depression in LV function, trace TR. On milrinone 0.3 and epinephrine 0.04. Backup pacing, 100 sinus natively. Scheduled Medications: acetaminophen, 1,000 mg, oral, Q6H CYNDEE albuterol, 2.5 mg, nebulization, Q4H CYNDEE (RT) aspirin, 81 mg, oral, Daily ceFAZolin, 1,000 mg, intravenous, Q8H cholestyramine-aspartame, 1 packet, oral, Daily - 0600 clopidogreL, 75 mg, oral, Daily famotidine, 20 mg, oral, BID polyethylene glycol, 17 g, oral, Daily rosuvastatin, 20 mg, oral, Nightly senna-docusate, 2 tablet, oral, BID sodium chloride 0.9%, 0.5-20 mL, intra-catheter, Q8H CYNDEE vancomycin, 1,000 mg, intravenous, Q12H Continuous Medications: norepinephrine, 0-2 mcg/kg/min, Last Rate: Stopped (03/21/21 1100) sodium chloride 0.9%, 20 mL/hr, Last Rate: 20 mL/hr (03/21/21 0400) sodium chloride 0.9%, 500 mL PRN Medications: albumin ??? dextrose ??? HYDROmorphone ??? ondansetron ??? oxyCODONE ??? potassium chloride ??? sodium chloride 0.9% Objective Vitals: Most Recent: Vitals: 03/21/21 1349 BP: Pulse: Resp: Temp: SpO2: 100% 24hr Min/Max: Pulse Min: 76 Max: 114 BP Min: 111/60 Max: 111/60 Resp Min: 11 Max: 25 SpO2 Min: 90 % Max: 100 % LDA: Introducer 03/20/21 Right Internal jugular (Active) Placement Date/Time: 03/20/21 (c) 1238 Hand Hygiene Performed: Yes Orientation: Right Location: Internal jugular Description (optional): multi-lumen access catheter (MAC) Number of days: 1 PA Catheter 8 Fr. Right Other (Comment) (Active) Placement Date/Time: 03/20/21 (c) 1148 Site Prep: Chlorhexidine Sheath Size: 8 Fr. Line Orientation: Right Sheath Insertion Site: Other (Comment) Number of days: 1 Arterial Line 03/20/21 Right Radial (Active) Placement Date/Time: 03/20/21 (c) 1234 Size: 20 G Orientation: Right Location: Radial Securement Method: Taped;Transparent dressing Number of days: 1 Pacer Wires (Active) Placement Date/Time: 03/20/21 1600 Type of Pacing Wires: Atrial and Ventricular Number of days: 0 Urethral Catheter Straight-tip (Active) Placement Date: 03/20/21 Inserted by: Cherri Patton RN Catheter Type: Straight-tip Tube Size (Fr.): 16 Fr Catheter Balloon Size: 10 mL Urine Returned: Yes Number of days: 1 Y Chest Tube A and B A Mediastinal 32 Fr. B Left Pleural 32 Fr. (Active) Placement Date: 03/20/21 Inserted by: Dr. Curry Tube Number A: A Chest Tube Location A: Mediastinal Size (Fr.) A: 32 Fr. Tube Number B: B Chest Tube Orientation B: Left Chest Tube Location B: Pleural Size (Fr.) B: 32 Fr. Number of days: 1 NG/OG Tube Orogastric 16 Fr Center mouth (Active) Placement Date/Time: 03/20/21 1500 NG/OG Tube Type: Orogastric NG/OG Tube Size: 16 Fr Tube Location: Center mouth Number of days: 0 Vent settings: Adult Vent Mode: Pressure support Ventilation FiO2 (%): [30 %-100 %] 40 % S RR: [14] 14 S VT: [550 mL] 550 mL PEEP/CPAP/EPAP (cm H2O): [5 cm H20] 5 cm H20 Pressure Support (cm H2O): [5 cm H20] 5 cm H20 CA SUP: [5 cm H20] 5 cm H20 CA SUP: [5 cm H20] 5 cm H20 MAP (cmH2O): [7.2-12] 7.6 I/O: Date 03/20/21699 - 03/21/21 0603/21/21699 - 03/22/21 0659 Shift 0780-5465 6415-8273 24 Hour Total 3469-0685 2599-8897 24 Hour Total INTAKE P.O. 270 270 240 240 I.V.(mL/kg) 2120(32.1) 799(11.2) 2919(40.9) NG/GT 50 50 IV Piggyback 2625 50 2675 Shift Total(mL/kg) 4745(71.9) 1169(16.4) 5914(82.8) 240(3.4) 240(3.4) OUTPUT Urine(mL/kg/hr) 2220(2.8) 1470(1.7) 3690(2.2) 600 600 Emesis/NG output 50 50 Chest Tube 210 340 550 60 60 Shift Total(mL/kg) 2430(36.8) 1860(26.1) 4290(60.1) 660(9.2) 660(9.2) NET 3161 -236 5664 420 -420 Weight (kg) 66 71.4 71.4 71.4 71.4 71.4 Physical Exam: Gen: oriented, sitting in chair HEENT: NC/AT, PERRLA, EOMI Neck: Supple, Trachea Midline CV: NSR, S1 and S2, Distal pulses intact, Warm periphery, cap refill < 3 seconds Pulm: CTAB Abd: Soft, Nontender, hypoactive BS : Elizabeth with yellow, clear urine Ext: trace pedal edema Skin: Warm, Dry, intact, surgical sites appropriately dress and C/D/I Neuro: strength and sensation intact Lab/Radiology/Diagnostic Review: Laboratory review: Lab results in the last 24 hours: Recent Results (from the past 24 hour(s)) POC Blood Gas and Chemistries, Arterial - Collection Time: 03/20/21 2:18 PM Result Value Ref Range pH, Art POC 7.39 7.35 - 7.45 pCO2, Art POC 37 35 - 45 mmHg pO2, Art POC 246 (H) 83 - 108 mmHg Na, POC 128 (L) 135 - 145 mmol/L K POC 6.8 (Critical) 3.3 - 4.9 mmol/L Ionized Ca, POC 4.24 (L) 4.60 - 5.20 mg/dL Glucose, POC 121 70 - 199 mg/dL Lactate, POC 1.4 0.7 - 2.0 mmol/L SO2 (yovanny) arterial 98 (H) 90 - 95 % Total CO2, Art POC 24 21 - 30 mmol/L BE, art, POC -2 mmol/L HCO3, Art POC 23 20 - 30 mmol/L Hct, POC 27.0 (L) 38.9 - 50.3 % Total Hb, POC 8.9 (L) 13.0 - 17.5 g/dL POC Blood Gas and Chemistries, Venous - Collection Time: 03/20/21 2:36 PM Result Value Ref Range K POC 6.8 (Critical) 3.3 - 4.9 mmol/L Potassium, whole blood Collection Time: 03/20/21 2:47 PM Result Value Ref Range Potassium, bld 5.5 (H) 3.3 - 4.9 mmol/L POC Blood Gas and Chemistries, Arterial - Collection Time: 03/20/21 3:39 PM Result Value Ref Range pH, Art POC 7.36 7.35 - 7.45 pCO2, Art POC 42 35 - 45 mmHg pO2, Art POC 466 (H) 83 - 108 mmHg Na, POC 135 135 - 145 mmol/L K POC 4.6 3.3 - 4.9 mmol/L Ionized Ca, POC 4.92 4.60 - 5.20 mg/dL Glucose, POC 100 70 - 199 mg/dL Lactate, POC 1.2 0.7 - 2.0 mmol/L SO2 (yovanny) arterial 97 (H) 90 - 95 % Total CO2, Art POC 25 21 - 30 mmol/L BE, art, POC -2 mmol/L HCO3, Art POC 24 20 - 30 mmol/L Hct, POC 27.0 (L) 38.9 - 50.3 % Total Hb, POC 9.1 (L) 13.0 - 17.5 g/dL POCT glucose Collection Time: 03/20/21 4:18 PM Result Value Ref Range Glucose, POC 116 70 - 199 mg/dL Basic metabolic panel Collection Time: 03/20/21 4:34 PM Result Value Ref Range Sodium 140 135 - 145 mmol/L Potassium, pl 4.8 3.3 - 4.9 mmol/L Chloride 109 97 - 110 mmol/L CO2 22 22 - 32 mmol/L Anion gap 9 2 - 15 mmol/L BUN 12 8 - 25 mg/dL Creatinine 1.22 0.80 - 1.30 mg/dL Glucose 137 70 - 199 mg/dL Calcium 7.9 (L) 8.5 - 10.3 mg/dL Magnesium Collection Time: 03/20/21 4:34 PM Result Value Ref Range Magnesium 2.4 1.4 - 2.5 mg/dL Calcium, ionized Collection Time: 03/20/21 4:34 PM Result Value Ref Range Ca, ionized, bld 4.75 4.60 - 5.20 mg/dL Ca, ionized, bld, calc 4.50 (L) 4.60 - 5.20 mg/dL CBC without differential Collection Time: 03/20/21 4:34 PM Result Value Ref Range WBC 12.0 (H) 3.8 - 9.9 K/cumm Hgb 9.6 (L) 13.0 - 17.5 g/dL Hct 28.3 (L) 38.9 - 50.3 % Plt 111 (L) 150 - 400 K/cumm MPV 8.3 (L) 9.1 - 12.3 fL RBC 2.90 (L) 4.30 - 5.80 M/cumm MCV 97.6 (H) 81.3 - 96.4 fL MCH 33.1 27.1 - 33.3 pg MCHC 33.9 32.3 - 35.7 g/dL RDW CV 13.1 11.1 - 14.9 % RDW SD 46.5 35.7 - 48.1 fL NRBC abs 0.00 0.00 - 0.01 K/cumm Protime-INR Collection Time: 03/20/21 4:34 PM Result Value Ref Range PT 15.1 (H) 9.5 - 13.6 sec INR 1.4 (H) 0.9 - 1.2 aPTT Collection Time: 03/20/21 4:34 PM Result Value Ref Range aPTT 29 27 - 37 sec eGFR Collection Time: 03/20/21 4:34 PM Result Value Ref Range eGFR 66 mL/min/1.73 m2 Blood gas, arterial Collection Time: 03/20/21 4:36 PM Result Value Ref Range pH, Art 7.30 (L) 7.35 - 7.45 PCO2, Arterial 48 (H) 35 - 45 mmHg PO2, Arterial 451 (H) 83 - 108 mmHg HCO3 Art (Calculated) 22 20 - 30 mmol/L BE, art -2 mmol/L O2 Sat Art (Measured) 99 (H) 90 - 95 % POCT glucose Collection Time: 03/20/21 5:35 PM Result Value Ref Range Glucose, POC 136 70 - 199 mg/dL Blood gas, arterial Collection Time: 03/20/21 5:38 PM Result Value Ref Range pH, Art 7.34 (L) 7.35 - 7.45 PCO2, Arterial 42 35 - 45 mmHg PO2, Arterial 107 83 - 108 mmHg HCO3 Art (Calculated) 22 20 - 30 mmol/L BE, art -2 mmol/L O2 Sat Art (Measured) 97 (H) 90 - 95 % POCT glucose Collection Time: 03/20/21 6:15 PM Result Value Ref Range Glucose, POC 127 70 - 199 mg/dL Basic metabolic panel Collection Time: 03/20/21 8:04 PM Result Value Ref Range Sodium 139 135 - 145 mmol/L Potassium, pl 5.4 (H) 3.3 - 4.9 mmol/L Chloride 107 97 - 110 mmol/L CO2 22 22 - 32 mmol/L Anion gap 10 2 - 15 mmol/L BUN 12 8 - 25 mg/dL Creatinine 1.28 0.80 - 1.30 mg/dL Glucose 124 70 - 199 mg/dL Calcium 10.0 8.5 - 10.3 mg/dL Blood gas, arterial Collection Time: 03/20/21 8:04 PM Result Value Ref Range pH, Art 7.38 7.35 - 7.45 PCO2, Arterial 38 35 - 45 mmHg PO2, Arterial 79 (L) 83 - 108 mmHg HCO3 Art (Calculated) 22 20 - 30 mmol/L BE, art -2 mmol/L O2 Sat Art (Measured) 94 90 - 95 % CBC without differential Collection Time: 03/20/21 8:04 PM Result Value Ref Range WBC 11.7 (H) 3.8 - 9.9 K/cumm Hgb 9.1 (L) 13.0 - 17.5 g/dL Hct 26.2 (L) 38.9 - 50.3 % Plt 112 (L) 150 - 400 K/cumm MPV 8.5 (L) 9.1 - 12.3 fL RBC 2.73 (L) 4.30 - 5.80 M/cumm MCV 96.0 81.3 - 96.4 fL MCH 33.3 27.1 - 33.3 pg MCHC 34.7 32.3 - 35.7 g/dL RDW CV 13.0 11.1 - 14.9 % RDW SD 45.3 35.7 - 48.1 fL NRBC abs 0.00 0.00 - 0.01 K/cumm Calcium, ionized Collection Time: 03/20/21 8:04 PM Result Value Ref Range Ca, ionized, bld 5.61 (H) 4.60 - 5.20 mg/dL Ca, ionized, bld, calc 5.54 (H) 4.60 - 5.20 mg/dL eGFR Collection Time: 03/20/21 8:04 PM Result Value Ref Range eGFR 63 mL/min/1.73 m2 POCT glucose Collection Time: 03/20/21 8:08 PM Result Value Ref Range Glucose, POC 123 70 - 199 mg/dL POCT glucose Collection Time: 03/20/21 9:01 PM Result Value Ref Range Glucose, POC 120 70 - 199 mg/dL Blood gas, arterial Collection Time: 03/20/21 9:39 PM Result Value Ref Range pH, Art 7.38 7.35 - 7.45 PCO2, Arterial 38 35 - 45 mmHg PO2, Arterial 126 (H) 83 - 108 mmHg HCO3 Art (Calculated) 22 20 - 30 mmol/L BE, art -3 mmol/L O2 Sat Art (Measured) 98 (H) 90 - 95 % POCT glucose Collection Time: 03/20/21 9:46 PM Result Value Ref Range Glucose, POC 125 70 - 199 mg/dL POCT glucose Collection Time: 03/21/21 12:02 AM Result Value Ref Range Glucose, POC 142 70 - 199 mg/dL POCT glucose Collection Time: 03/21/21 1:52 AM Result Value Ref Range Glucose, POC 121 70 - 199 mg/dL CBC with auto differential Collection Time: 03/21/21 3:59 AM Result Value Ref Range WBC 7.4 3.8 - 9.9 K/cumm Hgb 8.0 (L) 13.0 - 17.5 g/dL Hct 23.9 (L) 38.9 - 50.3 % Plt 103 (L) 150 - 400 K/cumm MPV 8.7 (L) 9.1 - 12.3 fL RBC 2.46 (L) 4.30 - 5.80 M/cumm MCV 97.2 (H) 81.3 - 96.4 fL MCH 32.5 27.1 - 33.3 pg MCHC 33.5 32.3 - 35.7 g/dL RDW CV 12.8 11.1 - 14.9 % RDW SD 44.9 35.7 - 48.1 fL NRBC abs 0.00 0.00 - 0.01 K/cumm Basic metabolic panel Collection Time: 03/21/21 3:59 AM Result Value Ref Range Sodium 139 135 - 145 mmol/L Potassium, pl 4.8 3.3 - 4.9 mmol/L Chloride 107 97 - 110 mmol/L CO2 24 22 - 32 mmol/L Anion gap 8 2 - 15 mmol/L BUN 12 8 - 25 mg/dL Creatinine 1.28 0.80 - 1.30 mg/dL Glucose 125 70 - 199 mg/dL Calcium 8.6 8.5 - 10.3 mg/dL Magnesium Collection Time: 03/21/21 3:59 AM Result Value Ref Range Magnesium 1.9 1.4 - 2.5 mg/dL Oxyhemoglobin, central venous Collection Time: 03/21/21 3:59 AM Result Value Ref Range Oxyhemoglobin, CV 70.2 % Differential, auto Collection Time: 03/21/21 3:59 AM Result Value Ref Range Neutrophil abs 5.8 1.7 - 6.5 K/cumm Imm gran abs 0.0 0.0 - 0.1 K/cumm Lymphocyte abs 1.0 0.8 - 3.3 K/cumm Monocyte abs 0.6 0.2 - 0.8 K/cumm Eosinophil abs 0.0 0.0 - 0.5 K/cumm Basophil abs 0.0 0.0 - 0.1 K/cumm Neutrophil pct 77.9 % Imm gran pct 0.4 % Lymphocyte pct 13.5 % Monocyte pct 8.1 % Eosinophil pct 0.0 % Basophil pct 0.1 % eGFR Collection Time: 03/21/21 3:59 AM Result Value Ref Range eGFR 63 mL/min/1.73 m2 POCT glucose Collection Time: 03/21/21 4:02 AM Result Value Ref Range Glucose, POC 115 70 - 199 mg/dL POCT glucose Collection Time: 03/21/21 7:56 AM Result Value Ref Range Glucose, POC 121 70 - 199 mg/dL POCT glucose Collection Time: 03/21/21 11:54 AM Result Value Ref Range Glucose, POC 107 70 - 199 mg/dL CBC with auto differential Collection Time: 03/21/21 1:37 PM Result Value Ref Range WBC 8.6 3.8 - 9.9 K/cumm Hgb 8.5 (L) 13.0 - 17.5 g/dL Hct 25.1 (L) 38.9 - 50.3 % Plt 110 (L) 150 - 400 K/cumm MPV 8.8 (L) 9.1 - 12.3 fL RBC 2.58 (L) 4.30 - 5.80 M/cumm MCV 97.3 (H) 81.3 - 96.4 fL MCH 32.9 27.1 - 33.3 pg MCHC 33.9 32.3 - 35.7 g/dL RDW CV 13.2 11.1 - 14.9 % RDW SD 47.1 35.7 - 48.1 fL NRBC abs 0.00 0.00 - 0.01 K/cumm Differential, auto Collection Time: 03/21/21 1:37 PM Result Value Ref Range Neutrophil abs 6.5 1.7 - 6.5 K/cumm Imm gran abs 0.0 0.0 - 0.1 K/cumm Lymphocyte abs 1.3 0.8 - 3.3 K/cumm Monocyte abs 0.8 0.2 - 0.8 K/cumm Eosinophil abs 0.0 0.0 - 0.5 K/cumm Basophil abs 0.0 0.0 - 0.1 K/cumm Neutrophil pct 75.1 % Imm gran pct 0.5 % Lymphocyte pct 14.8 % Monocyte pct 9.4 % Eosinophil pct 0.1 % Basophil pct 0.1 % XR Chest 1 View - Portable - in AM Result Date: 03/21/2021 Extubation. No pneumothorax or failure. Electronically signed by: Neftali Kaminski M.D. XR Chest 1 View - Portable Result Date: 03/21/2021 Expected postsurgical changes. No pneumothorax or failure. Electronically signed by: Neftali Kaminski M.D. Plan: Neuro: #Acute pain - tylenol, oxycodone CV: POD 1 CABG x2 - ASA - plavix today - statin - [place] sinus rhythm Pulmonary: - 2L NC - pulm hygiene GI: Diet: tolerating - Dietitian following PUD PPx: n/a Bowel regimen: miralax, pericolace Endo: SSI Renal: UOP adequate FBG even to neg Heme: DVT PPX: SCD's ID: [id number] ICU standards of care: Goals of care: Full code Denis Reeder MD EM-Critical Care Fellow [phone] Cosigned by Bob Mcclure MD at 03/21/2021 5:42 PM CDT * Stephen Allen MD - 03/21/2021 10:54 AM CDT Daily Progress SUBJECTIVE: Mr. Cali having good postop CABG recovery. On low-dose of norepinephrine currently breathing is stable. Denies chest pain. Sternotomy pain is adequately controlled. OBJECTIVE: Vitals: 03/21/21 0902 03/21/21 0915 03/21/21 0930 03/21/21 0945 BP: BP Location: Patient Position: Pulse: 96 91 95 Resp: 18 19 19 Temp: TempSrc: SpO2: 94% 98% 100% 100% Weight: Height: Intake/Output Summary (Last 24 hours) at 03/21/2021 1054 Last data filed at 03/21/2021 0826 Gross per 24 hour Intake 5254 ml Output 4475 ml Net 779 ml Scheduled Medications Medication Dose Route Frequency ??? acetaminophen (TYLENOL) tablet 1,000 mg 1,000 mg oral Q6H CYNDEE ??? albuterol 2.5 mg /3 mL (0.083 %) nebulizer solution 2.5 mg 2.5 mg nebulization Q4H CYNDEE (RT) ??? aspirin enteric coated tablet 81 mg 81 mg oral Daily Or ??? aspirin chewable tablet 81 mg 81 mg oral Daily ??? ceFAZolin (ANCEF) 1 gram/10 mL in sterile water (premix) 1,000 mg 1,000 mg intravenous Q8H ??? cholestyramine-aspartame (QUESTRAN LIGHT) 4 gram packet 1 packet 1 packet oral Daily - 0600 ??? clopidogreL (PLAVIX) tablet 75 mg 75 mg oral Daily ??? famotidine (PEPCID) injection 20 mg 20 mg intravenous Q12H CYNDEE ??? polyethylene glycol (MIRALAX) packet 17 g 17 g oral Daily ??? rosuvastatin (CRESTOR) tablet 20 mg 20 mg oral Nightly ??? senna-docusate (PERICOLACE) 8.6-50 mg per tablet 2 tablet 2 tablet oral BID ??? sodium chloride 0.9% flush 0.5-20 mL 0.5-20 mL intra-catheter Q8H CYNDEE ??? vancomycin 1,000 mg/200 mL in dextrose 5% (premix) 1,000 mg 1,000 mg intravenous Q12H LABS: Recent Labs Lab Units 03/21/21 0359 WBC K/cumm 7.4 HEMOGLOBIN g/dL 8.0* HEMATOCRIT % 23.9* PLATELETS K/cumm 103* Recent Labs Lab Units 03/21/21 0756 03/21/21 0402 03/21/21 0359 03/20/21 1207 03/16/21 1902 SODIUM mmol/L -- -- 139 < > 142 POTASSIUM PLASMA mmol/L -- -- 4.8 < > 4.3 CHLORIDE mmol/L -- -- 107 < > 101 CO2 mmol/L -- -- 24 < > 30 ANIONGAP mmol/L -- -- 8 < > 11 GLUCOSE mg/dL -- -- 125 < > 128 POC GLUCOSE MONITOR mg/dL 121 < > -- < > -- BUN SERUM mg/dL -- -- 12 < > 15 CREATININE mg/dL -- -- 1.28 < > 1.44* CALCIUM mg/dL -- -- 8.6 < > 9.0 ALBUMIN g/dL -- -- -- -- 4.1 ALK PHOS Units/L -- -- -- -- 96 ALT Units/L -- -- -- -- 21 AST Units/L -- -- -- -- 21 BILIRUBIN TOTAL mg/dL -- -- -- -- 0.2 < > = values in this interval not displayed. No results found for: BNP No results found for: TROPONINI Exam General: in no apparent distress and well developed and well nourished Neuro: Alert and oriented x 3, moves all extremities well HEENT: normocephalic, atraumatic, Lungs: symmetric, unlabored, clear to auscultation bilaterally chest tube present Heart: S1,S2, regular rate & rhythm, no murmurs, rubs, or gallops sternotomy Abdomen: soft, non-tender, non-distended, bowel sounds present Extremities: no LE edema ASSESSMENT/PLAN: Coronary artery disease -status post CABG having good recovery on low-dose of norepinephrine currently - ANDERSON to LAD and SVG to diagonal branch - on dual antiplatelet therapy History of essential hypertension - currently on norepinephrine postop hopefully can be weaned off ?? HLD -on high-intensity statin ?? Crohn's disease ?? COPD -breathing is stable ?? Stephen Allen MD, MSN, ANP-[facility] 03/21/2021 10:54 AM * Kash Kari, PT - 03/21/2021 8:22 AM CDT Physical Therapy INITIAL EVALUATION PATIENT'S NAME:Jeanie Cali :1965 AGE:55 y.o. TIME IN:824 TIME OUT:904 CURRENT DIAGNOSIS AND HOSPITAL COURSE: Chest pain with SOB and diaphoresis. Presents to CVU with CAD s/p CABG x2 ANDERSON to LAD and SVG to diag. Extubated on 03/20/21. Notable Hx: HTN, COPD, Crohn's disease, tobacco abuse. Patient Active Problem List Diagnosis ??? Coronary artery disease involving [place] heart without angina pectoris Past Medical History: Diagnosis Date ??? COPD (chronic obstructive pulmonary disease) (CMS/HCC) (HCC) ??? Crohn's colitis (CMS/HCC) ([facility]) ??? Hyperlipidemia ??? Hypertension ??? Tobacco abuse No past surgical history on file. SUBJECTIVE LIVES WITH: LIVING ENVIRONMENT: One-story home with 5 steps to enter (through the front door) and 2+4 (back door), both with handrail. PRIOR LEVEL OF FUNCTION: Independent with all functional ADL's and ambulation without a device. Thepatient was driving prior. Employed part-time at [employer] with goals of returning to work. EQUIPMENT OWNED: Crutches, standard walker, straight cane, shower chair EQUIPMENT USED: None SOCIAL SUPPORTS: can provide support if needed after discharge. PATIENT/FAMILY GOAL: To get back to work as soon as I can. MENTAL STATUS/ORIENTATION: Alert and oriented x4 OBJECTIVE PRECAUTIONS: Fall risk, sternal, cardiac APPEARANCE/POSTURE: The patient is sitting up in the chair upon arrival in no apparent distress. Connected to multiple lines, chest tube, elizabeth catheter, and telemetry. VITAL SIGNS: Resting BP: 104/47 Post-activity BP: 110/46 Resting heart rate: 105 bpm Post-activity heart rate: 92 bpm Resting O2 sat: 98% on 2L Post-activity O2 sat: 95% PAIN: Pre-therapy pain level: 4/10 Pain location: Sternal Pain intervention: Repositioned Post-therapy pain level/response to intervention: Unchanged LE ASSESSMENTS: Right LE ROM: WFL Left LE ROM: WFL Right LE strength: Grossly 5/5, except hip flexion 4/5 Left LE strength: Grossly 5/5, except hip flexion 4/5 MOBILITY: Bed mobility: Not assessed due to sitting up in recliner and wishing to return after evaluation. Transfers: -Sit to/from stand: Verbal cuing to avoid pushing with UE's - performed with supervision. Pre-Ambulation: Standing marching performed with one hand hold with CGA - x10 reps. Balance/Special Tests: Static sitting balance: Good, unsupported Dynamic sitting balance: Good, unsupported Static standing balance: Good, unsupported, performed for approx 30 seconds with supervision. Dynamic standing balance: Good, unsupported, standing marching performed with CGA. TREATMENT: -Incentive spirometry performed x5 reps with verbal cuing to slow pacing. Patient reaches 500 ml. -Reviewed CABG packet with sternal precautions. Gave handout to patient. AMPAC: Basic Mobility - 6 Click How much difficulty does the patient have: Turning over in bed: A little How much difficulty does the patient currently have: Sitting down and standing up from a chair witharms?: None How much difficulty does the patient have: Moving from lying on back to sitting on the side of the bed?: A little How much difficulty does the patient have: Moving to and from a bed to a chair including wheelchair?: None How much help does the patient currently need: Walk in hospital room?: A little How much help from another person does the patient currently need: Climbing 3-5 steps with a railing?: A little Total 6 Click Score (range 6-24): 20 APPEARANCE/POSTURE (end of session): The patient is sitting up in the bedside chair in no apparent distress. Call light in reach. EDUCATION: Role of PT, PT POC, incentive spirometry, sternal precautions, transfer safety RESPONSE TO EDUCATION: demonstrated understanding and verbalizes understanding ASSESSMENT PROBLEM LIST: Decreased endurance, impaired gait, impaired balance BARRIERS TO LEARNING: Physical BARRIERS TO DISCHARGE: Pain, Decreased endurance and Stairs at home REHAB POTENTIAL/PROGNOSIS: good PLAN DISCHARGE LOCATION RECOMMENDATIONS: HOME with intermittent assist with HHPT TREATMENT PLAN/INTERVENTIONS: Treatments will focus on impairments found on evaluation. FREQUENCY: Daily EQUIPMENT RECOMMENDATIONS: wheeled walker - depending on ambulation. Refer to multi-disciplinary care plan section for PT specific goals. If this is the last note, please consider this the discharge summary. * Janel Roberts MD - 03/21/2021 6:55 AM CDT Cardiothoracic Surgery Progress Note Jeanie Cali 1965 Hospital DAY#5 03/21: CABGv2 (ANDERSON to LAD, SVG to diag), sternal plate closure Subjective: - Weaned off milrinone overnight and extubated - Still on a little levophed - Complaining of pain on his left side - No nausea - OOB to chair Objective Vitals: Temp: [36.7 ??C (98.1 ??F)] 36.7 ??C (98.1 ??F) Pulse: [76-100] 95 BP: (111-141)/(60-96) 111/60 Resp: [11-24] 20 SpO2: [98 %-100 %] 100 % SVO2: [79 %-81 %] 80 % Arterial Line BP: (78-140)/(41-74) 111/53 FiO2 (%): [30 %-100 %] 40 % PAP: 28/10 (03/21 530) CVP: 5 mmHg (03/21 530) PCWP: -- CO: 4.8 L/min (03/21 435) CI: 2.7 L/min/m2 (03/21 435) SVO2: 80 % (03/20 1630) Pacemaker Overdrive Pacing: No (03/21) Cardiac Rhythm: Normal sinus rhythm (03/21 400) Pacer Mode: VVI (03/21 400) Wt Readings from Last 3 Encounters: 03/21/21 71.4 kg (157 lb 6.5 oz) I/O last 2 completed shifts: In: 4745 [I.V.:2119; IV Piggyback:2625] Out: 2630 [Urine:2420; Chest Tube:210] Physical Exam Alert, oriented, no distress Sitting up in the chair Right neck with swan and TLC Normocephalic Nl s1/s2, no murmurs Decreased BS bilaterally, no wheezing Abdomen soft, NT/ND WWP, minimal LE edema Chest tube output: 480 serosanguinous, airleak: No, suction: -20mmHg Access: central line, swan, picc, peripheral IV and midline Recent Labs Lab Units 03/21/2135803/20/21200303/20/21 1634 WBC K/cumm 7.4 11.7* 12.0* HEMOGLOBIN g/dL 8.0* 9.1* 9.6* HEMATOCRIT % 23.9* 26.2* 28.3* PLATELETS K/cumm 103* 112* 111* Recent Labs Lab Units 03/21/2135803/20/21200303/20/21 1634 SODIUM mmol/L 139 139 140 POTASSIUM PLASMA mmol/L 4.8 5.4* 4.8 CHLORIDE mmol/L 107 107 109 CO2 mmol/L 24 22 22 BUN SERUM mg/dL 12 12 12 CREATININE mg/dL 1.28 1.28 1.22 CALCIUM mg/dL 8.6 10.0 7.9* Recent Labs Lab Units 03/20/21 1634 03/20/21 0625 03/19/21 0542 03/16/21 1902 03/16/21 1050 PROTIME (PT) sec 15.1* -- -- -- 10.7 INR 1.4* -- -- -- 1.0 APTT sec 29 74* 66* < > 149* < > = values in this interval not displayed. Recent Labs Lab Units 03/20/21213803/20/21200303/20/21 1738 PH ART 7.38 7.38 7.34* PCO2 ART mmHg 38 38 42 PO2 ART mmHg 126* 79* 107 BASE EXC ART mmol/L -3 -2 -2 Drips: norepinephrine 0.03 mcg/kg/min Imaging: Today's CXR fairly clear, chest tubes in place Assessment and Plan: 55 y.o. male annie hx of COPD, crohn's HL, HTN who presented with unstable angina (EF 70% preop) now s/p 2v CABG (ANDERSON to LAD, SVG to diag) on 03/20. Neuro: Will start tylenol ATC, oxycodone PRN, Cr slightly up, maybe toradol today CVS: Hemodynamically stable in NSR, on asa for grafts, start plavix today, poss lovenox, wean levophed before starting BB Pulm: Good O2 sat on NC, encourage IS, wean O2 as tolerated, pulmonary toilet, lasix likely today GI: No nausea, bowel regimen, crohn's home meds Renal: UOP adequate, lasix today, Cr slightly increased from BL will trend, keep elizabeth ID: Periop abx Endo: ISS for BG control Heme: ppx lovenox today likely, asa/plavix for grafts Prophylaxis: likely dvt ppx today/ is Dispo: CVU Janel Roberts MD Cardiothoracic Surgery [facility] * Leo Hewitt, [facility] - 03/20/2021 4:34 PM CDT Pharmacokinetic Consult - Vancomycin Dosing Jeanie Cali is a 55 y.o. male who has been consulted for vancomycin dosing for surgical prophylaxis . Relevant clinical data and objective history reviewed: Creatinine Date Value Ref Range Status 03/16/2021 1.44 (H) 0.80 - 1.30 mg/dL Final 03/16/2021 1.14 0.80 - 1.30 mg/dL Final 07/07/2018 1.2 0.5 - 1.3 mg/dL Comment: NOTE: Estimated GFR (Cockroft-Gault) will NOT be calculated unless patient Height and Weight were entered. Also, Kidney Disease Stage (GFR) and Estimated GFR (Cockroft-Gault) will NOT be calculated if Creatinine result is <0.2. 05/27/2018 1.2 0.5 - 1.3 mg/dL Comment: NOTE: Estimated GFR (Cockroft-Gault) will NOT be calculated unless patient Height and Weight were entered. Also, Kidney Disease Stage (GFR) and Estimated GFR (Cockroft-Gault) will NOT be calculated if Creatinine result is <0.2. 06/16/2017 0.9 0.5 - 1.3 mg/dL Comment: NOTE: Estimated GFR (Cockroft-Gault) will NOT be calculated unless patient Height and Weight were entered. Also, Kidney Disease Stage (GFR) and Estimated GFR (Cockroft-Gault) will NOT be calculated if Creatinine result is <0.2. BUN Date Value Ref Range Status 03/16/2021 15 8 - 25 mg/dL Final 03/16/2021 9 8 - 25 mg/dL Final Estimated Creatinine Clearance: 54.1 mL/min (A) (by C-G formula based on SCr of 1.44 mg/dL (H)). I/O last 3 completed shifts: In: 340 [P.O.:340] Out: 650 [Urine:650] Lab Results Component Value Date/Time WBC 5.7 03/20/2021 06:25 AM HGB 9.1 (L) 03/20/2021 03:39 PM HCT 27.0 (L) 03/20/2021 03:39 PM HCT 43.4 03/20/2021 06:25 AM MCV 107.2 (H) 03/20/2021 06:25 AM LABPLAT 159 03/20/2021 01:58 PM Temp Readings from Last 3 Encounters: 03/20/21 36.7 ??C (98.1 ??F) (Oral) Patient Weight 03/20/21 66 kg (145 lb 8.1 oz) Assessment/Plan The patient will be started on vancomycin utilizing scheduled dosing based on actual body weight. Will initiate dose at vancomycin 1000 mg IV every 12 hoursx 3 doses starting 03/20/21 at 23:00. Day 1 of therapy. Leo Hewitt RPh * Yaritza Junior RN - 03/19/2021 1:58 PM CDT VSS. Pt denied pain this shift. Pt made NPO for possible heart surgery. Surgery cancelled midday. Pt to have surgery as planned tomorrow. NPO after mid-night. Family at the bedside. Pt continues on hep gtt. No significant events to report. Will continue to follow. * Brittni Barakat RN - 03/19/2021 11:20 AM CDT CM Initial Discharge Planning Assessment Information Obtained From: Patient (03/19/21 112) Admission Source: Direct Admit//transfer from [facility] Impression: CAD Plan Includes: CTS consulted, initiated on heparin drip, CABG today. Primary Source of Transportation: Drives self Health Insurance Coverage: [facility] Medicaid Prescription Coverage: [facility] Medicaid Pharmacy: [address] [place], [place] Primary Care Provider: Kim Rodrigues [employer] Prior to Admission: Primary Caregiver: Self Support System: Spouse/Significant Other Support system contact info (name, phone, availablity): Dottie Cali, Home Care Services: No Durable Medical Equipment: None Living Arrangements: Spouse/significant other Type of Residence: Private residence Steps in home? : Yes, Outside of home Number of steps outside:: 4 steps (4 front entrance; 7 back entrance) (03/19/21 112) Potential discharge needs include: Home Health: prison (03/19/211119) Dialysis: n/a Behavioral Health Services: Behavioral Health Services: No (03/19/211119) Patient expects to be Discharged to: Private residence, (03/19/211119) Additional Information: CM met with pt & /designated medicare specialist Dottie Cali at bedsideto complete assessment for initial discharge planning. Demographics verified per face sheet.[facility] email sent: Correct Address: [facility] [address] [address]. Correct Cell ph [phone]. Pt lives at home with , independent, drives,works for [employer]. Pt has wheeled walker & standard walker available if needed. Pt would be agreeable to [facility] -- pt aware fpc covered by insurance but would have to private pay for PT/OT if recommended. Pt declined patient choice list & would be agreeable to [facility] or other agency who accepts insurance. CM will continue to follow post-op progress & recommendations for discharge planning. Patient's Identified Problem/Goal Problem: Ensure acute medical needs are met and that patient has a safe discharge plan. Goal: Secure a discharge plan that patient/family are agreeable with and ensure patient has continuum of care. Case management will follow for discharge planning and send referrals as needed. Goals include: To assure continuity of care, To maximize coping skills, To assure patient is in a safe environment and To assure access to community resources. NETTIE Le-RN [facility] [phone] * Santosh Perry MD - 03/19/2021 8:49 AM CDT [facility] - Cardiology [facility] Progress Note Admit Date: 03/16/2021 7:46 AM @HDAYS@ PCP: No, Physician Patient seen and examined Chart , telemtry reviewed Symptoms Patient denies chest pain, dyspnea, palpitations, sweating or syncope. Data Vitals: 03/18/21 1600 03/18/21 2013 03/18/21 2347 03/19/21 0413 BP: 126/80 135/95 115/78 BP Location: Right arm Right arm Right arm Patient Position: Lying Lying Lying Pulse: 107 103 94 89 Resp: 18 18 18 Temp: 36.4 ??C (97.5 ??F) 36.9 ??C (98.4 ??F) 36.2 ??C (97.1 ??F) TempSrc: Temporal Temporal Temporal SpO2: 98% 97% 98% Weight: Height: Intake/Output Summary (Last 24 hours) at 03/19/2021 0849 Last data filed at 03/18/2021 2100 Gross per 24 hour Intake 340 ml Output 250 ml Net 90 ml Lab Results Component Value Date WBC 6.4 03/19/2021 WBC 7.5 03/18/2021 WBC 7.3 03/17/2021 HGB 13.8 03/19/2021 HGB 14.2 03/18/2021 HGB 14.7 03/17/2021 HCT 42.1 03/19/2021 HCT 45.0 03/18/2021 HCT 44.4 03/17/2021 Lab Results Component Value Date SODIUM 142 03/16/2021 SODIUM 138 03/16/2021 POTASSIUM 4.3 03/16/2021 POTASSIUM 4.8 03/16/2021 CHLORIDE 101 03/16/2021 CHLORIDE 99 03/16/2021 CO2 30 03/16/2021 CO2 29 03/16/2021 CREATININE 1.44 (H) 03/16/2021 CREATININE 1.14 03/16/2021 GLUCOSE 128 03/16/2021 GLUCOSE 113 03/16/2021 CALCIUM 9.0 03/16/2021 CALCIUM 9.4 03/16/2021 No results found for: PTT Lab Results Component Value Date PT 10.7 03/16/2021 Lab Results Component Value Date INR 1.0 03/16/2021 No results found for: BNP No components found for: TROPONIN No results found for: CHOL, TRIG, HDL, LDLCALC Lab Results Component Value Date ALBUMIN 4.1 03/16/2021 ALBUMIN 4.2 03/16/2021 ALKPHOS 96 03/16/2021 ALKPHOS 102 03/16/2021 ALT 21 03/16/2021 ALT 24 03/16/2021 AST 21 03/16/2021 AST 26 03/16/2021 No components found for: MAGMGDL No results found for: TSH No results found for: T3FREE No results found for: [id number] Pain Assessment: No/denies pain Pain Score: 0 - No pain Patient's Stated Pain Goal: No pain Meds MEDICATIONS FOR CURRENT ENCOUNTER: SCHEDULED MEDICATIONS: Scheduled Medications Medication Dose Route Frequency ??? amLODIPine (NORVASC) tablet 10 mg 10 mg oral Daily ??? aspirin chewable tablet 81 mg 81 mg oral Daily ??? carvediloL (COREG) tablet 6.25 mg 6.25 mg oral BID with meals (bkfst, dinner) ??? cholestyramine-aspartame (QUESTRAN LIGHT) 4 gram packet 1 packet 1 packet oral Daily - 0600 ??? nitroglycerin (NITRO-BID) 2 % ointment 0.5 inch 0.5 inch topical BID NITRATES ??? rosuvastatin (CRESTOR) tablet 20 mg 20 mg oral Nightly ??? sodium chloride 0.9% flush 0.5-20 mL 0.5-20 mL intra-catheter Q8H CYNDEE ?? CONTINUOUS MEDICATIONS: Continuous Medications Medication Dose Last Rate ??? heparin in 0.45% sodium chloride 25,000 units/250 mL (100 units/mL) infusion (premix) 0-33 Units/kg/hr 14 Units/kg/hr (03/18/21 0731) ? PRN MEDICATIONS: PRN Medications Medication Dose Route Frequency Last Admin ??? heparin 1,000 unit/mL injection 2,000 Units 2,000 Units intravenous Q6H PRN Or ??? heparin 1,000 unit/mL injection 3,000 Units 3,000 Units intravenous Q6H PRN ??? hydrALAZINE (APRESOLINE) injection 10 mg 10 mg intravenous Q4H PRN ??? sodium chloride 0.9% flush 0.5-20 mL 0.5-20 mL intra-catheter PRN Allergies Allergen Reactions ??? Hydromorphone Headache and Itching Headache Makes me itch every where Review of Systems: All systems were reviewed. Pertinent positives are mentioned above. Exam General appearance: alert, cooperative, no distress Neck: No JVD. No carotid Bruit Chest: Decreased air entry bilaterally,No added sounds Cardiovascular: regular rate, rhythm, normal S1 and S2, without rub, gallops or murmur Abdomen: soft without mass, non-tender, with normal bowel sounds Extremities: no clubbing, cyanosis or edema. Peripheral pulse palpable Assessment /Plan Coronary artery disease -IVUS 30% LM, 60% ostial LAD, 90% mid LAD -CTS consulted. ??. -continue heparin gtt. ?? -asa, bb. ??Will add asa -lipid panel chol 148, trig 184, HDL 78, LDL 33. On cholestyramine.? -??liver function tests nrml -scheduled for surgery today- ?? HTN -hypertensive on admission -now controlled -restarted norvasc and coreg Well controlled.?? -??Will add PRN IV hydralazine ?? HLD -lipid panel chol 148, trig 184, HDL 78, LDL 33. On cholestyramine.? -liver function tests within normal limits ?? Tobacco abuse -encouraged complete cessation ?? Crohn's disease ?? COPD -plans for PFTs per CTS ?? Santosh Perry MD * Stevie Carver NP - 03/18/2021 11:16 AM CDT Cardiothoracic Surgery Progress Note Jeanie Cali 1965 Hospital DAY#2 Subjective: Pt is resting in chair on room air. Denies shortness of breath. Short episode of chest pain this morning when he got upset about breakfast. Nitro patch on and reports decreased episodes of chest pain. OBJECTIVE: Temp: [36.6 ??C (97.9 ??F)-37.2 ??C (99 ??F)] 36.6 ??C (97.9 ??F) Pulse: [87-106] 106 BP: (116-144)/(77-97) 131/97 Resp: [18] 18 SpO2: [95 %-98 %] 95 % Wt Readings from Last 3 Encounters: 03/16/21 65.3 kg (143 lb 15.4 oz) I/O this shift: In: 240 [P.O.:240] Out: - I/O last 2 completed shifts: In: 390 [I.V.:390] Out: - Physical Exam Vitals and nursing note reviewed. Constitutional: Appearance: Normal appearance. HENT: Head: Normocephalic and atraumatic. Nose: Nose normal. Mouth/Throat: Pharynx: Oropharynx is clear. Cardiovascular: Rate and Rhythm: Normal rate and regular rhythm. Heart sounds: No murmur heard. Comments: NSR 91 Pulmonary: Effort: Pulmonary effort is normal. Breath sounds: Normal breath sounds. Musculoskeletal: Right lower leg: No edema. Left lower leg: No edema. Skin: General: Skin is warm and dry. Neurological: General: No focal deficit present. Mental Status: He is alert and oriented to person, place, and time. Access: peripheral IV Labs: Reviewed Recent Labs Lab Units 03/18/21 0541 03/17/21 0035 03/16/21 1050 WBC K/cumm 7.5 7.3 7.8 HEMOGLOBIN g/dL 14.2 14.7 15.9 HEMATOCRIT % 45.0 44.4 47.5 PLATELETS K/cumm 259 303 285 Recent Labs Lab Units 03/16/21 1902 03/16/21 1050 SODIUM mmol/L 142 138 POTASSIUM PLASMA mmol/L 4.3 4.8 CHLORIDE mmol/L 101 99 CO2 mmol/L 30 29 BUN SERUM mg/dL 15 9 CREATININE mg/dL 1.44* 1.14 CALCIUM mg/dL 9.0 9.4 MAGNESIUM mg/dL -- 2.1 Recent Labs Lab Units 03/18/21 0541 03/17/21 0610 03/17/21 0035 03/16/21190103/16/21 1050 PROTIME (PT) sec -- -- -- -- 10.7 INR -- -- -- -- 1.0 APTT sec 57* 72* 66* < > 149* < > = values in this interval not displayed. Imaging: None to review. Current Scheduled Medications: amLODIPine, 10 mg, oral, Daily aspirin, 81 mg, oral, Daily carvediloL, 6.25 mg, oral, BID with meals (bkfst, dinner) cholestyramine-aspartame, 1 packet, oral, Daily - 0600 nitroglycerin, 0.5 inch, topical, BID NITRATES rosuvastatin, 20 mg, oral, Nightly sodium chloride 0.9%, 0.5-20 mL, intra-catheter, Q8H CYNDEE Assessment and Plan: Active Problems: Chest Pain Secondary Problems: Hypertension Crohn's disease s/p colectomy and colostomy (now reversed) Assessment: Patient is resting comfortably at present. Had an episode of chest tightness this morning. Labs reviewed. Heparin gtt is therapeutic. Nitro patch on. Plan: Surgery planned for Friday (03/20). ECHO/PFTs pending. Stevie Carver NP Cardiothoracic Surgery [facility] Office: 03/18/2021 11:29 AM Cosigned by Malathi Curry MD at 03/19/2021 4:43 PM CDT * Dayna Cramer NP - 03/18/2021 9:25 AM CDT Daily Progress SUBJECTIVE: Mr. Cali is sitting up in the chair, continues to be on the heparin drip. Did have some chest pain this am again, but did not report. OBJECTIVE: Vitals: 03/18/21 0000 03/18/21 0340 03/18/21 0400 03/18/21 0800 BP: 116/77 119/81 131/97 BP Location: Right arm Right arm Right arm Patient Position: Lying Pulse: 93 92 87 79 Resp: 18 18 18 Temp: 36.9 ??C (98.5 ??F) 36.8 ??C (98.2 ??F) 36.6 ??C (97.9 ??F) TempSrc: Oral Oral Oral SpO2: 97% 97% 95% Weight: Height: Intake/Output Summary (Last 24 hours) at 03/18/2021 0925 Last data filed at 03/18/2021 0520 Gross per 24 hour Intake 390 ml Output -- Net 390 ml Scheduled Medications Medication Dose Route Frequency ??? amLODIPine (NORVASC) tablet 10 mg 10 mg oral Daily ??? aspirin chewable tablet 81 mg 81 mg oral Daily ??? carvediloL (COREG) tablet 6.25 mg 6.25 mg oral BID with meals (bkfst, dinner) ??? cholestyramine-aspartame (QUESTRAN LIGHT) 4 gram packet 1 packet 1 packet oral Daily - 0600 ??? nitroglycerin (NITRO-BID) 2 % ointment 0.5 inch 0.5 inch topical BID NITRATES ??? rosuvastatin (CRESTOR) tablet 20 mg 20 mg oral Nightly ??? sodium chloride 0.9% flush 0.5-20 mL 0.5-20 mL intra-catheter Q8H CYNDEE LABS: Recent Labs Lab Units 03/18/21 0541 WBC K/cumm 7.5 HEMOGLOBIN g/dL 14.2 HEMATOCRIT % 45.0 PLATELETS K/cumm 259 Recent Labs Lab Units 03/16/21 1902 SODIUM mmol/L 142 POTASSIUM PLASMA mmol/L 4.3 CHLORIDE mmol/L 101 CO2 mmol/L 30 ANIONGAP mmol/L 11 GLUCOSE mg/dL 128 BUN SERUM mg/dL 15 CREATININE mg/dL 1.44* CALCIUM mg/dL 9.0 ALBUMIN g/dL 4.1 ALK PHOS Units/L 96 ALT Units/L 21 AST Units/L 21 BILIRUBIN TOTAL mg/dL 0.2 No results found for: BNP No results found for: TROPONINI Exam General: in no apparent distress and well developed and well nourished Neuro: Alert and oriented x 3, moves all extremities well HEENT: normocephalic, atraumatic, Lungs: symmetric, unlabored, clear to auscultation bilaterally Heart: S1,S2, regular rate & rhythm, no murmurs, rubs, or gallops Abdomen: soft, non-tender, non-distended, bowel sounds present Extremities: no LE edema, palpable peripheral pulses BL ASSESSMENT/PLAN: Coronary artery disease -IVUS 30% LM, 60% ostial LAD, 90% mid LAD -CTS consulted. ??D/w DOMINIC Granger. -continue heparin gtt. ?? -asa, bb. ??Will add asa -lipid panel chol 148, trig 184, HDL 78, LDL 33. On cholestyramine. ?? -??liver function tests nrml -scheduled for surgery on Friday - ?? HTN -hypertensive on admission -now controlled -restarted norvasc and coreg -monitor. -??Will add PRN IV hydralazine ?? HLD -lipid panel chol 148, trig 184, HDL 78, LDL 33. On cholestyramine. ? -liver function tests within normal limits ?? Tobacco abuse -encouraged complete cessation ?? Crohn's disease ?? COPD -plans for PFTs per CTS ?? Dayna Cramer NP, MSN, ANP-[facility] 03/18/2021 9:25 AM * Stevie Carver NP - 03/17/2021 10:30 AM CDT Cardiothoracic Surgery Progress Note Jeanie Cali 1965 [facility] DAY#1 Subjective: Pt is resting in bed with heparin gtt infusing. No acute complaints currently. Worried about having surgery and losing his job. OBJECTIVE: Temp: [36.6 ??C (97.8 ??F)-36.9 ??C (98.4 ??F)] 36.9 ??C (98.4 ??F) Pulse: [79-115] 79 BP: (130-159)/(84-95) 157/91 Resp: [18] 18 SpO2: [97 %-98 %] 98 % Wt Readings from Last 3 Encounters: 03/16/21 65.3 kg (143 lb 15.4 oz) No intake/output data recorded. I/O last 2 completed shifts: In: - Out: 200 [Urine:200] Physical Exam Vitals and nursing note reviewed. Constitutional: Appearance: Normal appearance. HENT: Head: Normocephalic and atraumatic. Nose: Nose normal. Mouth/Throat: Pharynx: Oropharynx is clear. Cardiovascular: Rate and Rhythm: Normal rate and regular rhythm. Heart sounds: No murmur heard. Comments: NSR 93 Pulmonary: Effort: Pulmonary effort is normal. Breath sounds: Normal breath sounds. Musculoskeletal: Right lower leg: No edema. Left lower leg: No edema. Skin: General: Skin is warm and dry. Neurological: General: No focal deficit present. Mental Status: He is alert and oriented to person, place, and time. Access: peripheral IV Labs: Reviewed Recent Labs Lab Units 03/17/21 0035 03/16/21 1050 WBC K/cumm 7.3 7.8 HEMOGLOBIN g/dL 14.7 15.9 HEMATOCRIT % 44.4 47.5 PLATELETS K/cumm 303 285 Recent Labs Lab Units 03/16/21 1902 03/16/21 1050 SODIUM mmol/L 142 138 POTASSIUM PLASMA mmol/L 4.3 4.8 CHLORIDE mmol/L 101 99 CO2 mmol/L 30 29 BUN SERUM mg/dL 15 9 CREATININE mg/dL 1.44* 1.14 CALCIUM mg/dL 9.0 9.4 MAGNESIUM mg/dL -- 2.1 Recent Labs Lab Units 03/17/21 0610 03/17/21 0035 03/16/21 1902 03/16/21 1050 03/16/21 1050 PROTIME (PT) sec -- -- -- -- 10.7 INR -- -- -- -- 1.0 APTT sec 72* 66* 66* < > 149* < > = values in this interval not displayed. Imaging: None to review. Current Scheduled Medications: amLODIPine, 10 mg, oral, Daily aspirin, 81 mg, oral, Daily carvediloL, 6.25 mg, oral, BID with meals (bkfst, dinner) cholestyramine-aspartame, 1 packet, oral, Daily - 0600 nitroglycerin, 0.5 inch, topical, BID NITRATES rosuvastatin, 20 mg, oral, Nightly sodium chloride 0.9%, 0.5-20 mL, intra-catheter, Q8H CYNDEE Assessment and Plan: Active Problems: Chest Pain Secondary Problems: Hypertension Crohn's disease s/p colectomy and colostomy (now reversed) Assessment: Patient is resting comfortably at present. Had an episode of chest tightness this morning. Labs reviewed. Heparin gtt is therapeutic. Plan: Surgery planned for Friday (03/20). Dr. Curry to discuss with patient. Start nitro paste and continue heparin gtt. ECHO/PFTs pending. Stevie Carver NP Cardiothoracic Surgery [facility] Office: 03/17/2021 11:53 AM Cosigned by Malathi Curry MD at 03/19/2021 4:43 PM CDT * Dayna Cramer NP - 03/17/2021 10:07 AM CDT Daily Progress SUBJECTIVE: Mr. Cali is resting in bed, states he had one very short episode of chest tightness this am but didn't tell anyone about it. OBJECTIVE: Vitals: 03/17/21 0400 03/17/21 0435 03/17/21 0700 03/17/21 0800 BP: 142/88 157/91 BP Location: Right arm Right arm Patient Position: Lying Pulse: 84 93 92 79 Resp: 18 18 Temp: 36.6 ??C (97.9 ??F) 36.9 ??C (98.4 ??F) TempSrc: Oral Oral SpO2: 97% 98% Weight: Height: Intake/Output Summary (Last 24 hours) at 03/17/2021 1007 Last data filed at 03/17/2021 0436 Gross per 24 hour Intake -- Output 200 ml Net -200 ml Scheduled Medications Medication Dose Route Frequency ??? amLODIPine (NORVASC) tablet 10 mg 10 mg oral Daily ??? aspirin chewable tablet 81 mg 81 mg oral Daily ??? carvediloL (COREG) tablet 6.25 mg 6.25 mg oral BID with meals (bkfst, dinner) ??? cholestyramine-aspartame (QUESTRAN LIGHT) 4 gram packet 1 packet 1 packet oral Daily - 0600 ??? rosuvastatin (CRESTOR) tablet 20 mg 20 mg oral Nightly ??? sodium chloride 0.9% flush 0.5-20 mL 0.5-20 mL intra-catheter Q8H CYNDEE LABS: Recent Labs Lab Units 03/17/21 0035 WBC K/cumm 7.3 HEMOGLOBIN g/dL 14.7 HEMATOCRIT % 44.4 PLATELETS K/cumm 303 Recent Labs Lab Units 03/16/21 1902 SODIUM mmol/L 142 POTASSIUM PLASMA mmol/L 4.3 CHLORIDE mmol/L 101 CO2 mmol/L 30 ANIONGAP mmol/L 11 GLUCOSE mg/dL 128 BUN SERUM mg/dL 15 CREATININE mg/dL 1.44* CALCIUM mg/dL 9.0 ALBUMIN g/dL 4.1 ALK PHOS Units/L 96 ALT Units/L 21 AST Units/L 21 BILIRUBIN TOTAL mg/dL 0.2 No results found for: BNP No results found for: TROPONINI Exam General: in no apparent distress and well developed and well nourished Neuro: Alert and oriented x 3, moves all extremities well HEENT: normocephalic, atraumatic, Lungs: symmetric, unlabored, clear to auscultation bilaterally Heart: S1,S2, regular rate & rhythm, no murmurs, rubs, or gallops Abdomen: soft, non-tender, non-distended, bowel sounds present Extremities: no LE edema, palpable peripheral pulses BL ASSESSMENT/PLAN: Coronary artery disease -IVUS 30% LM, 60% ostial LAD, 90% mid LAD -CTS consulted. D/w DOMINIC Granger. -continue heparin gtt. -asa, bb. Will add asa -lipid panel chol 148, trig 184, HDL 78, LDL 33. On cholestyramine. - liver function tests nrml -awaiting CTS recommendations for possible CABG?? HTN -hypertensive -restarted norvasc and coreg -monitor. - Will add PRN IV hydralazine ?? HLD -lipid panel chol 148, trig 184, HDL 78, LDL 33. On cholestyramine. -liver function tests within normal limits ?? Tobacco abuse -encouraged complete cessation ?? Crohn's disease ?? COPD -plans for PFTs per CTS ?? Dayna Cramer NP, MSN, ANP-[facility] 03/17/2021 10:07 AM Cosigned by Stephen Allen MD at 03/17/2021 10:11 AM CDT documented in this encounter H&P Notes * Denis Reeder MD - 03/20/2021 5:08 PM CDT Images from the original note were not included. Critical Care Medicine Admission Note Team: ayala Mendez Patient is a 55 y.o. male with history of HTN, COPD, Crohn's Disease, and tobacco abuse that presented with pressure like chest pain with associated SOB and diaphoresis. Cath at [facility] showed multiple vessel disease and was transferred for evaluation for CABG. Arrives to ICU intubated following CABG x2 ANDERSON to LAD and SVG to diagonal. Post op HELLEN with mild depression in LV function, trace TR. On milrinone 0.3 and epinephrine 0.04. Backup pacing, 100 sinus natively. Past Medical History: Diagnosis Date ??? COPD (chronic obstructive pulmonary disease) (CMS/HCC) (HCC) ??? Crohn's colitis (CMS/HCC) ([facility]) ??? Hyperlipidemia ??? Hypertension ??? Tobacco abuse No past surgical history on file. Allergies Allergen Reactions ??? Hydromorphone Headache and Itching Headache Makes me itch every where Social History Tobacco Use ??? Smoking status: Not on file Substance Use Topics ??? Alcohol use: Not on file No family history on file. HOME MEDICATIONS : albuterol (PROAIR RESPICLICK) 90 mcg/actuation inhaler amLODIPine (NORVASC) 10 mg tablet buPROPion XL (WELLBUTRIN XL) 150 mg 24 hr tablet carvediloL (COREG) 6.25 mg tablet cholestyramine (QUESTRAN) 4 gram packet ergocalciferol (VITAMIN D) 50,000 unit capsule hydrocortisone (ANUSOL-HC) 2.5 % rectal cream nitroglycerin (NITROSTAT) 0.3 mg SL tablet Medications: Medications Prior to Admission Medication Sig Dispense Refill Last Dose ??? albuterol (PROAIR RESPICLICK) 90 mcg/actuation inhaler Inhale 2 puffs every 6 (six) hours as needed for wheezing Past Week at Unknown time ??? amLODIPine (NORVASC) 10 mg tablet Take 10 mg by mouth daily Past Week at Unknown time ??? buPROPion XL (WELLBUTRIN XL) 150 mg 24 hr tablet Take 150 mg by mouth daily Past Week at Unknown time ??? carvediloL (COREG) 6.25 mg tablet Take 6.25 mg by mouth 2 (two) times a day with meals Past Week at Unknown time ??? cholestyramine (QUESTRAN) 4 gram packet Take 1 packet by mouth 3 (three) times a day with mealsPast Week at Unknown time ??? ergocalciferol (VITAMIN D) 50,000 unit capsule Take 50,000 Units by mouth once a week Past Weekat Unknown time ??? hydrocortisone (ANUSOL-HC) 2.5 % rectal cream Insert into the rectum 2 (two) times a day Past Week at Unknown time ??? nitroglycerin (NITROSTAT) 0.[address] 0.3 mg under the tongue every 5 (five) minutesas needed for chest pain Past Week at Unknown time Scheduled Medications Medication Dose Route Frequency ??? albumin 5 % bottle 25 g 25 g intravenous Once ??? albuterol 2.5 mg /3 mL (0.083 %) nebulizer solution 2.5 mg 2.5 mg nebulization Q4H CYNDEE (RT) ??? aspirin enteric coated tablet 81 mg 81 mg oral Daily Or ??? aspirin chewable tablet 81 mg 81 mg oral Daily ??? ceFAZolin (ANCEF) 1 gram/10 mL in sterile water (premix) 1,000 mg 1,000 mg intravenous Q8H ??? cholestyramine-aspartame (QUESTRAN LIGHT) 4 gram packet 1 packet 1 packet oral Daily - 0600 ??? [START ON 03/21/2021] docusate sodium (COLACE) capsule 100 mg 100 mg oral BID Or ??? [START ON 03/21/2021] docusate (COLACE) 10 mg/mL oral liquid 100 mg 100 mg feeding tube BID ??? famotidine (PEPCID) injection 20 mg 20 mg intravenous Q12H CYNDEE ??? rosuvastatin (CRESTOR) tablet 20 mg 20 mg oral Nightly ??? sodium chloride 0.9% flush 0.5-20 mL 0.5-20 mL intra-catheter Q8H CYNDEE ??? vancomycin 1,000 mg/200 mL in dextrose 5% (premix) 1,000 mg 1,000 mg intravenous Q12H Continuous Medications: Current Facility-Administered Medications Medication Dose Route Frequency Last Admin ??? EPINEPHrine 0-0.2 mcg/kg/min intravenous Titrated 0.04 mcg/kg/min at 03/20/21 1452 ??? insulin regular 0-30 Units/hr intravenous Titrated ??? milrinone 0.3 mcg/kg/min intravenous Titrated ??? norepinephrine 0-2 mcg/kg/min intravenous Titrated 0.1 mcg/kg/min at 03/20/21 1645 ??? sodium chloride 0.9% ??? sodium chloride 0.9% 10 mL/hr intravenous Continuous PRN Stopped at 03/20/21 1609 ??? sodium chloride 0.9% 20 mL/hr intravenous Continuous ??? sodium chloride 0.9% 500 mL intra-catheter Continuous PRN Medications: ??? albumin, 12.5 g ??? dextrose, 1-500 mL ??? fentaNYL, 50 mcg ??? oxyCODONE-acetaminophen, 2 tablet ??? potassium chloride, 20 mEq ??? prochlorperazine, 10 mg ??? sodium chloride 0.9%, 0.5-20 mL ??? sodium chloride 0.9%, 10 mL/hr, Stopped at 03/20/21 1609 Review of Systems: unable to obtain 2/2 sedation Objective Vitals: Arrival Vitals Temp 03/16/21 0750 36.7 ??C (98.1 ??F) Pulse 03/16/21 0750 77 Resp 03/16/21 0750 18 BP 03/16/21 0750 (!) 152/105 SpO2 03/16/21 0750 100 % Temp src 03/16/21 0750 Oral Heart Rate Source 03/16/21 1300 Monitor Patient Position 03/16/21 075 Lying BP Location 03/16/21 0750 Right arm FiO2 (%) 03/20/21 1625 100 % 24hr Min/Max: Temp Min: 36.3 ??C (97.4 ??F) Max: 36.8 ??C (98.3 ??F) Pulse Min: 81 Max: 108 BP Min: 118/78 Max: 142/64 Resp Min: 18 Max: 18 SpO2 Min: 98 % Max: 100 % FiO2 (%) Min: 100 % Max: 100 % Current Vitals: BP 141/96 (BP Location: Left arm) Comment: left Pulse 90 Temp 36.7 ??C (98.1 ??F) (Oral) Resp18 Ht 170.2 cm (5' 7 ) Wt 66 kg (145 lb 8.1 oz) SpO2 98% BMI 22.79 kg/m?? Intake/Output: I/O last 2 completed shifts: In: 240 [P.O.:240] Out: 400 [Urine:400] I/O this shift: In: 3560 [I.V.:1660; IV Piggyback:1900] Out: 1555 [Urine:1500; Chest Tube:55] LDA: Introducer 03/20/21 Right Internal jugular (Active) Placement Date/Time: 03/20/21 (c) 1239 Hand Hygiene Performed: Yes Orientation: Right Location: Internal jugular Description (optional): multi-lumen access catheter (MAC) Number of days: 0 PA Catheter 8 Fr. Right Other (Comment) (Active) Placement Date/Time: 03/20/21 (c) 1239 Site Prep: Chlorhexidine Sheath Size: 8 Fr. Line Orientation: Right Sheath Insertion Site: Other (Comment) Number of days: 0 Arterial Line 03/20/21 Right Radial (Active) Placement Date/Time: 03/20/21 (c) 1236 Size: 20 G Orientation: Right Location: Radial Securement Method: Taped;Transparent dressing Number of days: 0 Arterial Line 03/20/21 Left Femoral (Active) Placement Date/Time: 03/20/21 1300 Site Prep: Chlorhexidine Site Prep Agent has Completely Dried Before Insertion: Yes All 5 Sterile Barriers or Appropriate Barriers Used (Gloves, Gown, Cap, Mask, Large Sterile Drape): Yes Comfort Measures: Pre-m... Number of days: 0 ETT ETT - single 8 mm (Active) Placement Date/Time: 03/20/21 (c) 1233 Mask Ventilation: Vent by mask Technique: Direct laryngoscopy ETT Type: ETT - single Single Lumen Tube Size: 8 mm Cuffed: Yes Laryngoscope: Tyrell Blade Size: 3 Location: Oral Grade View: Full view o... Number of days: 0 Urethral Catheter Straight-tip (Active) Placement Date: 03/20/21 Inserted by: Cherri Patton RN Catheter Type: Straight-tip Tube Size (Fr.): 16 Fr Catheter Balloon Size: 10 mL Urine Returned: Yes Number of days: 0 Y Chest Tube A and B A Mediastinal 32 Fr. B Left Pleural 32 Fr. (Active) Placement Date: 03/20/21 Inserted by: Dr. Curry Tube Number A: A Chest Tube Location A: Mediastinal Size (Fr.) A: 32 Fr. Tube Number B: B Chest Tube Orientation B: Left Chest Tube Location B: Pleural Size (Fr.) B: 32 Fr. Number of days: 0 Vent settings for last 24 hours: Adult Vent Mode: Volume control/Assist control FiO2 (%): [100 %] 100 % S RR: [14] 14 S VT: [550 mL] 550 mL PEEP/CPAP/EPAP (cm H2O): [5 cm H20] 5 cm H20 MAP (cmH2O): [9.3] 9.3 Physical Exam: Gen: intubated, sedated HEENT: NC/AT, PERRLA, EOMI Neck: Supple, Trachea Midline CV: NSR, S1 and S2 heard, Distal pulses intact, Warm periphery, cap refill < 3 seconds Pulm: CTAB, on NC oxygenating well Abd: Soft, Nontender, Normoactive BS : Elizabeth with yellow, clear urine Ext: No edema noted Skin: Warm, Dry, intact, surgical sites appropriately dress and C/D/I Neuro: intubated and sedated Lab/Radiology/Diagnostic Review: Recent Results (from the past 24 hour(s)) Type and screen Collection Time: 03/19/21 5:29 PM Result Value Ref Range ABO Rh A Positive Viviana, indirect Negative CBC without differential Collection Time: 03/20/21 6:25 AM Result Value Ref Range WBC 5.7 3.8 - 9.9 K/cumm Hgb 13.3 13.0 - 17.5 g/dL Hct 43.4 38.9 - 50.3 % Plt 190 150 - 400 K/cumm MPV 8.3 (L) 9.1 - 12.3 fL RBC 4.05 (L) 4.30 - 5.80 M/cumm MCV 107.2 (H) 81.3 - 96.4 fL MCH 32.8 27.1 - 33.3 pg MCHC 30.6 (L) 32.3 - 35.7 g/dL RDW CV 13.4 11.1 - 14.9 % RDW SD 53.1 (H) 35.7 - 48.1 fL NRBC abs 0.00 0.00 - 0.01 K/cumm aPTT Collection Time: 03/20/21 6:25 AM Result Value Ref Range aPTT 74 (H) 27 - 37 sec POC Blood Gas and Chemistries, Arterial - Collection Time: 03/20/21 12:07 PM Result Value Ref Range pH, Art POC 7.46 (H) 7.35 - 7.45 pCO2, Art POC 31 (L) 35 - 45 mmHg pO2, Art POC >500 (H) 83 - 108 mmHg Na, POC 132 (L) 135 - 145 mmol/L K POC 4.8 3.3 - 4.9 mmol/L Ionized Ca, POC 4.49 (L) 4.60 - 5.20 mg/dL Glucose, POC 126 70 - 199 mg/dL Lactate, POC 0.6 (L) 0.7 - 2.0 mmol/L SO2 (yovanny) arterial 98 (H) 90 - 95 % Total CO2, Art POC 23 21 - 30 mmol/L BE, art, POC -1 mmol/L HCO3, Art POC 24 20 - 30 mmol/L Hct, POC 37.0 (L) 38.9 - 50.3 % Total Hb, POC 12.3 (L) 13.0 - 17.5 g/dL POC Blood Gas and Chemistries, Arterial - Collection Time: 03/20/21 1:35 PM Result Value Ref Range pH, Art POC 7.37 7.35 - 7.45 pCO2, Art POC 42 35 - 45 mmHg pO2, Art POC 423 (H) 83 - 108 mmHg Na, POC 128 (L) 135 - 145 mmol/L K POC 6.3 (Critical) 3.3 - 4.9 mmol/L Ionized Ca, POC 4.09 (L) 4.60 - 5.20 mg/dL Glucose, POC 118 70 - 199 mg/dL Lactate, POC 0.9 0.7 - 2.0 mmol/L SO2 (yovanny) arterial 98 (H) 90 - 95 % Total CO2, Art POC 26 21 - 30 mmol/L BE, art, POC -1 mmol/L HCO3, Art POC 24 20 - 30 mmol/L Hct, POC 26.0 (L) 38.9 - 50.3 % Total Hb, POC 8.8 (L) 13.0 - 17.5 g/dL Platelet count Collection Time: 03/20/21 1:58 PM Result Value Ref Range Plt 159 150 - 400 K/cumm POC Blood Gas and Chemistries, Venous - Collection Time: 03/20/21 2:00 PM Result Value Ref Range K POC 6.7 (Critical) 3.3 - 4.9 mmol/L POC Blood Gas and Chemistries, Arterial - Collection Time: 03/20/21 2:18 PM Result Value Ref Range pH, Art POC 7.39 7.35 - 7.45 pCO2, Art POC 37 35 - 45 mmHg pO2, Art POC 246 (H) 83 - 108 mmHg Na, POC 128 (L) 135 - 145 mmol/L K POC 6.8 (Critical) 3.3 - 4.9 mmol/L Ionized Ca, POC 4.24 (L) 4.60 - 5.20 mg/dL Glucose, POC 121 70 - 199 mg/dL Lactate, POC 1.4 0.7 - 2.0 mmol/L SO2 (yovanny) arterial 98 (H) 90 - 95 % Total CO2, Art POC 24 21 - 30 mmol/L BE, art, POC -2 mmol/L HCO3, Art POC 23 20 - 30 mmol/L Hct, POC 27.0 (L) 38.9 - 50.3 % Total Hb, POC 8.9 (L) 13.0 - 17.5 g/dL POC Blood Gas and Chemistries, Venous - Collection Time: 03/20/21 2:36 PM Result Value Ref Range K POC 6.8 (Critical) 3.3 - 4.9 mmol/L Potassium, whole blood Collection Time: 03/20/21 2:47 PM Result Value Ref Range Potassium, bld 5.5 (H) 3.3 - 4.9 mmol/L POC Blood Gas and Chemistries, Arterial - Collection Time: 03/20/21 3:39 PM Result Value Ref Range pH, Art POC 7.36 7.35 - 7.45 pCO2, Art POC 42 35 - 45 mmHg pO2, Art POC 466 (H) 83 - 108 mmHg Na, POC 135 135 - 145 mmol/L K POC 4.6 3.3 - 4.9 mmol/L Ionized Ca, POC 4.92 4.60 - 5.20 mg/dL Glucose, POC 100 70 - 199 mg/dL Lactate, POC 1.2 0.7 - 2.0 mmol/L SO2 (yovanny) arterial 97 (H) 90 - 95 % Total CO2, Art POC 25 21 - 30 mmol/L BE, art, POC -2 mmol/L HCO3, Art POC 24 20 - 30 mmol/L Hct, POC 27.0 (L) 38.9 - 50.3 % Total Hb, POC 9.1 (L) 13.0 - 17.5 g/dL POCT glucose Collection Time: 03/20/21 4:18 PM Result Value Ref Range Glucose, POC 116 70 - 199 mg/dL Calcium, ionized Collection Time: 03/20/21 4:34 PM Result Value Ref Range Ca, ionized, bld 4.75 4.60 - 5.20 mg/dL Ca, ionized, bld, calc 4.50 (L) 4.60 - 5.20 mg/dL CBC without differential Collection Time: 03/20/21 4:34 PM Result Value Ref Range WBC 12.0 (H) 3.8 - 9.9 K/cumm Hgb 9.6 (L) 13.0 - 17.5 g/dL Hct 28.3 (L) 38.9 - 50.3 % Plt 111 (L) 150 - 400 K/cumm MPV 8.3 (L) 9.1 - 12.3 fL RBC 2.90 (L) 4.30 - 5.80 M/cumm MCV 97.6 (H) 81.3 - 96.4 fL MCH 33.1 27.1 - 33.3 pg MCHC 33.9 32.3 - 35.7 g/dL RDW CV 13.1 11.1 - 14.9 % RDW SD 46.5 35.7 - 48.1 fL NRBC abs 0.00 0.00 - 0.01 K/cumm Protime-INR Collection Time: 03/20/21 4:34 PM Result Value Ref Range PT 15.1 (H) 9.5 - 13.6 sec INR 1.4 (H) 0.9 - 1.2 aPTT Collection Time: 03/20/21 4:34 PM Result Value Ref Range aPTT 29 27 - 37 sec Blood gas, arterial Collection Time: 03/20/21 4:36 PM Result Value Ref Range pH, Art 7.30 (L) 7.35 - 7.45 PCO2, Arterial 48 (H) 35 - 45 mmHg PO2, Arterial 451 (H) 83 - 108 mmHg HCO3 Art (Calculated) 22 20 - 30 mmol/L BE, art -2 mmol/L O2 Sat Art (Measured) 99 (H) 90 - 95 % Plan: Neuro: #acute pain propofol and fentanyl for sedation CV: #CAD s/p CABG x2 POD 0 - continue epi and milrinone - maintain SWAN - albumin 5% - wean off milrinone first - maintain CI >2.2 - ASA+statin Pulmonary: #Acute hypoxic respiratory failure - Vent settings AC/VC 550mL, RR 16, PEEP 5, 40% - fast track extubation - CXR personally read: lines in place, ETT in appropriate position, lungs clear - Maintain sats >92% - CXR in am for evaluation of lung carranza and ETT placement - scheduled nebs GI: Diet: NPO - Dietitian following PUD PPx: pepcid Bowel regimen: colace Endo: Maintain euglycemia Renal: - monitor I/O - albumin 5% x1 - maintain elizabeth Heme: -maintain Hb >7 DVT PPX: SCD's ID: Tyra op abx ICU standards of care: Restraints: n/a Physical therapy/Activity: n/a Access: RIJ PA cath, R radial A line, L fem a line, PIV x1 Other: Goals of care: Full code Denis Reeder MD EM-Critical Care Fellow [phone] Cosigned by Bob Mcclure MD at 03/20/2021 6:14 PM CDT * Mery Walker NP - 03/16/2021 9:48 AM CDT Cardiology History and Physical- [facility] Patient's Primary Care Physician: Angelique, Physician Name: Jeanie Cali Age: 55 y.o. Race: Sex: male Chief Complaint/History of Present Illness 55yo AA male with known history of HTN, COPD, Crohn's disease, and tobacco abuse that had seen Dr. Elliott in office with c/o couple of weeks duration of substernal CP, described as pressure 8/10,that was unchanged with inspiration or movement, non-radiating, with SOB/COOLEY and diaphoresis. Pt was scheduled for outpt cardiac cath at [facility] that demonstrated LM, LAD and RCA disease with EF 45%. Ptwas transferred to [facility] for CTS evaluation. Pt was transferred on heparin gtt. Pt currently resting in bed, NAD. Denies any CP, SOB, dizziness, palpitations, diaphoresis at present. Past Medical History: Diagnosis Date ??? COPD (chronic obstructive pulmonary disease) (CMS/HCC) (HCC) ??? Crohn's colitis (CMS/HCC) (HCC) ??? Hyperlipidemia ??? Hypertension ??? Tobacco abuse No past surgical history on file. No family history on file. Social History Socioeconomic History ??? Marital status: Single Spouse name: Not on file ??? Number of children: Not on file ??? Years of education: Not on file ??? Highest education level: Not on file Occupational History ??? Not on file Tobacco Use ??? Smoking status: Not on file Substance and Sexual Activity ??? Alcohol use: Not on file ??? Drug use: Not on file ??? Sexual activity: Not on file Other Topics Concern ??? Not on file Social History Narrative ??? Not on file Social Determinants of Health Financial Resource Strain: ??? Difficulty of Paying Living Expenses: Not on file Food Insecurity: ??? Worried About Running Out of Food in the Last Year: Not on file ??? Ran Out of Food in the Last Year: Not on file Transportation Needs: ??? Lack of Transportation (Medical): Not on file ??? Lack of Transportation (Non-Medical): Not on file Physical Activity: ??? Days of Exercise per Week: Not on file ??? Minutes of Exercise per Session: Not on file Stress: ??? Feeling of Stress : Not on file Social Connections: ??? Frequency of Communication with Friends and Family: Not on file ??? Frequency of Social Gatherings with Friends and Family: Not on file ??? Attends Jainism Services: Not on file ??? Active Member of Clubs or Organizations: Not on file ??? Attends Club or Organization Meetings: Not on file ??? Marital Status: Not on file Intimate Partner Violence: ??? Fear of Current or Ex-Partner: Not on file ??? Emotionally Abused: Not on file ??? Physically Abused: Not on file ??? Sexually Abused: Not on file No medications prior to admission. Not on File MEDICATIONS FOR CURRENT ENCOUNTER: SCHEDULED MEDICATIONS: No current Epic-ordered facility-administered medications on file. CONTINUOUS MEDICATIONS: No current Epic-ordered facility-administered medications on file. PRN MEDICATIONS: No current Epic-ordered facility-administered medications on file. Review of Systems 11 system review was obtained all pertinent positives and negatives have been listed in the HPI. Exam Vitals: 03/16/21 0720 03/16/21 0750 BP: (!) 152/105 BP Location: Right arm Patient Position: Lying Pulse: 77 Resp: 18 Temp: 36.7 ??C (98.1 ??F) TempSrc: Oral SpO2: 100% Weight: 65.3 kg (143 lb 15.4 oz) Height: 170.2 cm (5' 7 ) No intake or output data in the 24 hours ending 03/16/21 0958 General: in no apparent distress and well developed and well nourished Neuro: Alert and oriented x 3, moves all extremities well HEENT: normocephalic, atraumatic, thyroid not enlarged. Neck: There are no carotid bruits. I do not appreciate JVD. Lungs: symmetric, unlabored, clear to auscultation bilaterally Heart: S1,S2, regular rate & rhythm, no murmurs, rubs, or gallops Abdomen: soft, non-tender, non-distended, bowel sounds present Extremities: no LE edema, palpable peripheral pulses BL Neurologic: No focal deficits Data No lab exists for component: CHOLORIDE No results found for: TROPONINT Exam Patient Vitals for the past 24 hrs: BP Temp Temp src Pulse Resp SpO2 Height Weight 03/16/21 0750 (!) 152/105 36.7 ??C (98.1 ??F) Oral 77 18 100 % -- -- 03/16/21 0720 -- -- -- -- -- -- 170.2 cm (5' 7 ) 65.3 kg (143 lb 15.4 oz) General: in no apparent distress and well developed and well nourished Neuro: Alert and oriented x 3, moves all extremities well HEENT: normocephalic, atraumatic, thyroid not enlarged. I do not appreciate JVD. Neck: There are nocarotid bruits. Lungs: symmetric, unlabored, coarse to auscultation bilaterally Heart: S1,S2, regular rate & rhythm, no murmurs, rubs, or gallops Abdomen: soft, non-tender, non-distended, bowel sounds present Extremities: no LE edema, palpable peripheral pulses BL Neurologic: No focal deficits Assessment and Plan Coronary artery disease -IVUS 30% LM, 60% ostial LAD, 90% mid LAD -CTS consulted. D/w DOMINIC [place]. Will obtain cath CD from [facility] -continue heparin gtt. -asa, bb. Will add asa -lipid panel chol 148, trig 184, HDL 78, LDL 33. On cholestyramine. Will check CMP to evaluate liver function, before starting further tx HTN -hypertensive -restarted norvasc and coreg -monitor. Will add PRN IV hydralazine HLD -lipid panel chol 148, trig 184, HDL 78, LDL 33. On cholestyramine. Will check CMP to evaluate liver function, before starting further tx Tobacco abuse -encouraged complete cessation Crohn's disease COPD -plans for PFTs per CTS Plan: will obtain cath CD from [facility] for CTS. I anticipate greater than 2 midnights stay due to management of the issues noted above. Thank you for allowing us to participate in the care of this patient. We will continue to follow. If you have any questions, please don't hesitate to call. Mery Walker NP [facility] 03/16/2021 9:58 AM CC: Cosigned by Stephen Allen MD at 03/16/2021 11:38 AM CDT Associated attestation - Stephen Allen MD - 03/16/2021 11:38 AM CDT Evaluated the patient bedside. Agree with the note. Patient underwent cardiac catheterization at [place] in concerning for 3 vessel disease left main disease therefore transferred here for CABG evaluation. His chest pain-free currently on heparin drip. Patient is concerned about return to work at high-intensity statin therapy. documented in this encounter Procedure Notes * Haroldo Rivas MD - 03/22/2021 4:12 PM CDTAssociated Order(s): Critical Care Post-Procedure Diagnose(s): Coronary artery disease involving santee sioux coronary artery of santee sioux heart without angina pectoris Critical Care Performed by: Haroldo Rivas MD Authorized by: Haroldo Rivas MD CRITICAL CARE: Team: BILLY Shift: AM Level of Billing: Critical Care My time spent with this patient was 30 minutes: Critical Provider Statement: I have seen and examined the patient on this day of service. I have reviewed and confirmed the history, physical exam, laboratory and radiologic data as documented in thesigned ICU note. I have reviewed and discussed my treatment plan with the ICU team and other medical/customs consultant staff, making frequent assessments and decisions regarding this patient's complex medical care. Critical Care time was exclusive of time spent performing separately billed procedures, treating other patients, and teaching. This time was in addition to and separate from critical care provided by other practitioners in my group on this day of service. Critical Care was necessary to treat or prevent imminent or life-threatening deterioration of the following conditions: Acute pain/acute postoperative pain This time was spent by me doing the following: Serial laboratory checks Acute pain control I spent time reviewing and interpreting data from bedside monitors, laboratory results, and imaging, I spent time discussing the management of this critically ill patient with consultants and the medical staff and I spent time documenting in the medical record * Trudi Lamb MD - 03/21/2021 8:18 PM CDTAssociated Order(s): Critical Care Post-Procedure Diagnose(s): Coronary artery disease involving santee sioux coronary artery of [place] si[place] heart without angina pectoris Critical Care Performed by: Trudi Lamb MD Authorized by: Trudi Lamb MD CRITICAL CARE: Team: [facility] Shift: PM Level of Billing: Critical Care My time spent with this patient was 9 minutes: Critical Provider Statement: I have seen and examined the patient on this day of service. I have reviewed and confirmed the history, physical exam, laboratory and radiologic data as documented in thesigned ICU note. I have reviewed and discussed my treatment plan with the ICU team and other medical/customs consultant staff, making frequent assessments and decisions regarding this patient's complex medical care. Critical Care time was exclusive of time spent performing separately billed procedures, treating other patients, and teaching. This time was in addition to and separate from critical care provided by other practitioners in my group on this day of service. Critical Care was necessary to treat or prevent imminent or life-threatening deterioration of the following conditions: Acute pain/acute postoperative pain Acute blood loss anemia This time was spent by me doing the following: Acute pain control Active and frequent reassessment of respiratory status and oxygen requirements Active and frequent monitoring of intake/output and volumen status I spent time reviewing and interpreting data from bedside monitors, laboratory results, and imaging, I spent time discussing the management of this critically ill patient with consultants and the medical staff and I spent time documenting in the medical record Trudi Lamb MD Instructor, Acute and Critical Care Surgery [facility] Office: [phone] Pager: [phone] * Trudi Lamb MD - 03/20/2021 10:10 PM CDTAssociated Order(s): Critical Care Post-Procedure Diagnose(s): Coronary artery disease involving santee sioux coronary artery of s[place] si[place] heart without angina pectoris Critical Care Performed by: Trudi Lamb MD Authorized by: Trudi Lamb MD CRITICAL CARE: Team: BILLY Shift: PM Level of Billing: Critical Care My time spent with this patient was 31 minutes: Critical Provider Statement: I have seen and examined the patient on this day of service. I have reviewed and confirmed the history, physical exam, laboratory and radiologic data as documented in thesigned ICU note. I have reviewed and discussed my treatment plan with the ICU team and other medical/customs consultant staff, making frequent assessments and decisions regarding this patient's complex medical care. Critical Care time was exclusive of time spent performing separately billed procedures, treating other patients, and teaching. This time was in addition to and separate from critical care provided by other practitioners in my group on this day of service. Critical Care was necessary to treat or prevent imminent or life-threatening deterioration of the following conditions: Cardiogenic shock and Hypotension This time was spent by me doing the following: Acute pain control Initiation/active titration of vasoactive medications and Initiation/active titration of inotropic medications Invasive ventilator management, reassessment, and titration and Active and frequent reassessment ofrespiratory status and oxygen requirements I spent time reviewing and interpreting data from bedside monitors, laboratory results, and imaging, I spent time discussing the management of this critically ill patient with consultants and the medical staff and I spent time documenting in the medical record Trudi Lamb MD Instructor, Acute and Critical Care Surgery [facility] Office: [phone] Pager: [phone] * Jonathan Mcintosh MD - 03/19/2021 12:00 AM CDT The patient is 5 feet 7 inches, 143 pounds. The patient's O2 sat is 97% on room air at rest. Forcedvital capacity 2.05 L, 55% of predicted. FEV1 is 1.09, 37% of predicted. FEV1 FVC ratio is 0.53, which is 66% of predicted, significantly decreased. The patient's total lung capacity is 5.74, 90% of predicted. Residual volume is 2.94, 148% of predicted, and thoracic gas volume is 122% of predicted at 3.96 L, mildly decreased. Slow vital capacity is 2.8 L, 76% of predicted. Gas transfer as measured by DLCO is severely decreased at 12.78, 49% of predicted. When measured DL per alveolar volume, 62% of predicted at 2.73. Alveolar volume is mildly reduced at 79% of predicted. Airway resistance is s ignificantly increased at 248%. Flow volume loop does not show upper airway limitation. Impression Severe airflow obstruction with gas trapping, severe abnormality in gas transfer as measured by DLCO. Increased airways resistance. The patient is still smoking some, which is bad. Cigarette cessation strongly recommended, long-acting bronchodilators, antimuscarinic as well as beta agonists are recommended Job ID/VF Job ID: [id number] documented in this encounter Consult Notes * Dayna West RD - 03/21/2021 1:52 PM CDTAssociated Order(s): IP CONSULT TO NUTRITION SERVICES Nutrition Assessment Pt does not currently meet criteria for malnutrition. Subcutaneous Fat Loss Upper Arm Region - Triceps/Biceps: Some depth pinch but not ample Thoracic and Lumbar Region - Ribs, Lower Back, Midaxillary Line: Chest is full, ribs do not show Muscle Loss Yarsanism Region - Temporalis Muscle: Slight depression Clavicle Bone Region - Pectoralis Major, Deltoid, Trapezius Muscles: Not visible in male, visible but not prominent in female Clavicle and Acromion Bone Region - Deltoid Muscle: Acromion process may slightly protrude Dorsal Hand - Interosseous Muscle: Muscle bulges, could be flat in some well nourished people Patellar Region - Quadricep Muscle: Knee cap less prominent, more rounded Anterior Thigh Region - Quadricep Muscles: Well rounded, well developed Posterior Calf Region - Gastrocnemius Muscle: (sequentials in place, unable to assess) Reason for Assessment: Initial Nutrition Assessment, Consult/Referral and Diet Education Consult for: diet education Encounter Date: 03/21/21 1:52 PM Nutrition Assessment and Plan: Patient is a 55 y.o. male. Admit Dx: CAD. Admitted on 03/16/2021, current LOS is 5 days.Pt is POD#1S/P CABG x 2. Surgical incision to chest and right leg. JESUS drains in place. PMH of HTN, HLD, COPD, Crohn's disease. Patient with nausea this AM, okay currently but reports feeling of fullness/poor appetite. Difficulty chewing due to missing teeth, declines mechanical soft diet. Provided food preferences related tochewing issues and GI issues/Crohn's disease. Entering in [employer]. Reports good appetite at home with usual body weight range between 125-150 lb. Large range due to chronic diarrhea/GI losses, per Pt. NFPE completed, see above. Limited documented weights available to assess malnutrition status. Due to recent surgery and current poor PO intake, ordering Boost bid. Patient prefers vanilla or strawberry flavor, NO chocolate flavor. Heart healthy diet education provided to patient with in theroom. Due to Crohn's disease, patient avoids fried foods, corn and sometimes salads. Due to chewingissues, patient avoids some protein meats. Patient with no questions/concerns at this time. Wt Readings from Last 15 Encounters: 03/21/21 71.4 kg (157 lb 6.5 oz) 03/08/21 66.8 kg (147 lb) Office visit Current diet order: Adult Diet Special; Low Fat, Low Chol, Low Na Pt intake is inadequate. PO intakes: 0% x 1, <50% x 1 Nutrition Diagnosis 1: Inadequate oral intake Related to: Loss of appetite Evidenced by: PO under 50%, Patient interview Nutrition Diagnosis 2: Altered GI functionRelated to: Chronic illness/injury (Crohn's)Evidenced by:Other (comment) (chronic diarrhea) ?? Interventions: Communication, Education, nutrition, Medical food supplement, Other (comment) (Ordering Boost vanilla bid. Provided Heart Healthy diet education.) ?? Monitoring and Evaluation: Appetite, Discharge plans, Food preferences, GI output, Labs, Plan ofcare, I/O, PO intake, Supplement tolerance, Weight changes ?? Goals: Adequate nutrition to meet estimated needs by next assessment, Diet consistency appropriate for patient needs during stay, Oral intake to meet 75% estimated nutritional needs by next assessment, Patient/caregiver able to teach back understanding of role of diet in disease process prior todischarge, Tolerance of medical food supplement by next assessment Estimated needs: ?? MSJ Total Energy Needs: 1809.6 kcal using Activity Factor: 1.2 ?? Total Protein Estimated Needs (gm): 85.68 Protein Needs Based on g/k.2 Type of Weight Used for Estimated Protein : Current. ?? Type of Weight Used for Estimated Fluid Needs: Current ?? Fluid Needs Based on : 1 ml/kcal ?? Total Fluid Estimated Needs: 1810 mL/day Objective Anthropometrics Weight: 71.4 kg (157 lb 6.5 oz) Admission Weight : 66 kg Weight Change: 5.40 kg (11.90 lbs) IBW/kg (Calculated) : 67.2 kg Height: 170.2 cm (5' 7.01 ) Weight in (lb) to have BMI = 25: 159.3 BMI (Calculated): 24.6 3 Day I/O Summary 03/190 - 03/21 0659 In: 5914 [P.O.:270; I.V.:2919] Out: 4490 [Urine:3890] Temp: (PT NOT IN ROOM) Minute Ventilation (L/min): 8.6 L/min Past Medical History: Diagnosis Date ??? COPD (chronic obstructive pulmonary disease) (CMS/HCC) ([facility]) ??? Crohn's colitis (CMS/HCC) (HCC) ??? Hyperlipidemia ??? Hypertension ??? Tobacco abuse Medications and Lab Review: Scheduled Meds: acetaminophen, 1,000 mg, oral, Q6H CYNDEE albuterol, 2.5 mg, nebulization, Q4H CYNDEE (RT) aspirin, 81 mg, oral, Daily ceFAZolin, 1,000 mg, intravenous, Q8H cholestyramine-aspartame, 1 packet, oral, Daily - 0600 clopidogreL, 75 mg, oral, Daily famotidine, 20 mg, oral, BID polyethylene glycol, 17 g, oral, Daily rosuvastatin, 20 mg, oral, Nightly senna-docusate, 2 tablet, oral, BID sodium chloride 0.9%, 0.5-20 mL, intra-catheter, Q8H CYNDEE vancomycin, 1,000 mg, intravenous, Q12H Continuous Infusions: norepinephrine, 0-2 mcg/kg/min, Last Rate: Stopped (03/21/21 1100) sodium chloride 0.9%, 20 mL/hr, Last Rate: 20 mL/hr (03/21/21 0400) sodium chloride 0.9%, 500 mL Sodium Date Value Ref Range Status 03/21/2021 139 135 - 145 mmol/L Final Potassium, pl Date Value Ref Range Status 03/21/2021 4.8 3.3 - 4.9 mmol/L Final BUN Date Value Ref Range Status 03/21/2021 12 8 - 25 mg/dL Final Creatinine Date Value Ref Range Status 03/21/2021 1.28 0.80 - 1.30 mg/dL Final Magnesium Date Value Ref Range Status 03/21/2021 1.9 1.4 - 2.5 mg/dL Final Calcium Date Value Ref Range Status 03/21/2021 8.6 8.5 - 10.3 mg/dL Final Lab Results Component Value Date HGBA1C 5.7 (H) 03/17/2021 Lab Results Component Value Date GLUCOSE 107 03/21/2021 GLUCOSE 121 03/21/2021 GLUCOSE 115 03/21/2021 GLUCOSE 125 03/21/2021 GLUCOSE 121 03/21/2021 GLUCOSE 142 03/21/2021 GLUCOSE 124 03/20/2021 GLUCOSE 137 03/20/2021 Nursing Assessment: Last BM Date: 03/18/21 Bowel Sounds (All Quadrants): Hypoactive Hitesh Scale Score: 13 Skin Integrity: Surgical incision Diet Instructions Recommend to eat a generally healthy diet that includes a variety of fruits, vegetables, whole-grain breads, low-fat dairy products, beans, lean meats, and fish. Avoid saturated and trans fats and limit sodium to less than 2,300 mg per day. Avoid foods like desserts, fast food, fried/breaded foods,deli meats, sausage, victor, and gravies/sauces. Call [phone] to speak with a dietitian about any diet related concerns. Recommend to follow up with outpatient nutrition counseling, ask your doctor for a referral and call [phone] to make an appointment. Nutrition Follow-Up : 03/27/[address],LD * Malathi Curry MD - 03/16/2021 10:56 AM CDTAssociated Order(s): IP CONSULT TO CARDIOTHORACIC SURGERY Cardiothoracic Surgery [place] History & Physical [facility] [employer] Dr. Antelmo Proctor & Dr. Malathi Curry Jeanie Walsh Viraj 1965 Reason for Consult: Coronary Artery Disease Physician Requesting Consult: Earl PCP: None New or Established Patient: New Chief Complaint: Chest pain HPI: Jeanie Cali is 55 y.o. Black Or male with PMHx of hypertension and chron's disease. Patient reports noticing mid sternal chest pressure like someone sitting on his chest approximately 2-3 weeks ago. He states the episodes would come on with exertion and leave within a few minutes. No medications were used. He was referred to see Dr. Elliott from his PCP who scheduled an outpatient cardiac cath. He continued to have chest pain 2-3 times a day for the last week. Patient underwent cath yesterday and was found to have three vessel disease, including 60% ostial LAD and 30% left main. Patient reports he had an episode of chest pain Wednes night associated with nausea and diaphoresis. Currently he is resting in bed on a Heparin gtt. No episodes of chest pain since admission. He was brought here for evaluation of coronary artery bypass grafting. CT Attending: I agree with the above history. Mr. Cali is a 55 year-old male with a history of HTN, Crohn's disease s/p multiple bowel resections on Humira therapy, who noted chest pressure starting approximately 3 weeks ago that was substernal, moderate in intensity, nonradiating, brought on by exertion, and relieved by rest. He notes episodes of this pain 2-3 times a week since it started. Hehad left-heart catheterization that showed tight proximal LAD lesion with a large amount of calcification. He was transferred to [facility] for surgical evaluation. He denies lower extremity edema, orthopnea, or shortness of breath. He denies of a history of stroke or syncope. He is able to complete his ac tivities of daily living without issues and climb stairs. HOME MEDICATIONS : albuterol (PROAIR RESPICLICK) 90 mcg/actuation inhaler amLODIPine (NORVASC) 10 mg tablet buPROPion XL (WELLBUTRIN XL) 150 mg 24 hr tablet carvediloL (COREG) 6.25 mg tablet cholestyramine (QUESTRAN) 4 gram packet ergocalciferol (VITAMIN D) 50,000 unit capsule hydrocortisone (ANUSOL-HC) 2.5 % rectal cream nitroglycerin (NITROSTAT) 0.3 mg SL tablet Allergies Allergen Reactions ??? Hydromorphone Headache and Itching Headache Makes me itch every where Past Medical History: Diagnosis Date ??? COPD ??? Crohn's colitis ??? Hyperlipidemia ??? Hypertension Surgical History Colon resection s/p ileostomy (now reversed) Rt femur fx (rani) Family History Mother-diabetes mellitus/HTN Father-CA (unknown) Social History Socioeconomic History ??? 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 Smoking status: Current (1 pack every 2-3 days) Substance and Sexual Activity ??? Alcohol use: Yes, beer and 2 shots nightly ??? Drug use: Yes, marijuana (previously used crack -years ago) Review of Systems - Review of Systems negative except those described in HPI and below: Review of Systems Constitutional: Positive for diaphoresis. Cardiovascular: Positive for chest pain. Gastrointestinal: Positive for nausea. Vital Signs: Vitals: 03/16/21 0750 BP: (!) 152/105 Pulse: 77 Resp: 18 Temp: 36.7 ??C (98.1 ??F) SpO2: 100% Body surface area is 1.76 meters squared. Physical Exam Vitals and nursing note reviewed. Constitutional: General: He is not in acute distress. Appearance: Normal appearance. HENT: Head: Normocephalic and atraumatic. Nose: Nose normal. Mouth/Throat: Pharynx: Oropharynx is clear. Eyes: Conjunctiva/sclera: Conjunctivae normal. Neck: Vascular: No carotid bruit. Cardiovascular: Rate and Rhythm: Normal rate and regular rhythm. Pulses: Radial pulses are 2+ on the right side and 2+ on the left side. Dorsalis pedis pulses are 2+ on the right side and 2+ on the left side. Heart sounds: No murmur heard. Pulmonary: Effort: Pulmonary effort is normal. Breath sounds: Normal breath sounds. Abdominal: Palpations: Abdomen is soft. Comments: Midline abdominal surgical scar LLQ abdominal surgical scar Musculoskeletal: Cervical back: Neck supple. Right lower leg: No edema. Left lower leg: No edema. Lymphadenopathy: Cervical: No cervical adenopathy. Skin: General: Skin is warm and dry. Comments: Right wrist cath site C/D/I Neurological: General: No focal deficit present. Mental Status: He is alert and oriented to person, place, and time. Labs: Hematology Lab History Some values may be hidden. Unless noted otherwise, only the newest values recorded on each date aredisplayed. Labs - Hematology Latest Ref Range 03/16/21 WBC 3.8 - 9.9 K/cumm 7.8 Total Hb, POC 13.0 - 17.5 g/dL 15.9 Hct 38.9 - 50.3 % 47.5 Plt 150 - 400 K/cumm 285 Chem/LFT Lab History Some values may be hidden. Unless noted otherwise, only the newest values recorded on each date aredisplayed. Labs-Chem/LFT Latest Ref Range 03/16/21 Sodium 135 - 145 mmol/L 138 Creatinine 0.80 - 1.30 mg/dL 1.14 Bilirubin, total 0.1 - 1.2 mg/dL 0.4 AST 10 - 50 Units/L 26 ALT 7 - 55 Units/L 24 CrCl- Actual Body Weight (Cockcroft-Gault) 67.6 chol 148, trig 184, HDL 78, LDL 33 Data/Testing: Cardiac Cath 03/15/2021: IVUS 30% LM, 60% ostial LAD, 90% mid LAD, 40% RCA, EF 45% ECHO (TTE), PFTs pending STS Risk Score for Urgent CAB.4% Discussed with patient and family Assessment and Plan Assessment: 55 year-old male with 2-vessel CAD with progressive angina Plan: Mr. Cali has a complex LAD lesion and also a proximal diagonal lesion that is likely best treated with surgical coronary revascularization. We discussed coronary artery bypass grafting with risks of bleeding, infection, respiratory and/or renal dysfunction, and a low risk of (~1.4% mortality by STS risk score). We will get a TTE to check his heart and valvular function as well as get PFTs as he notes he has relatively advanced COPD for risk stratification purposes. We will do CABGx 2 and use ANDERSON and one segment of saphenous vein as conduit. The patient understands the risks and benefits of surgery and would like to proceed pending completion of his preoperative work-up. Stevie Carver NP Cardiothoracic Surgery [facility] [phone] :41 PM Malathi Curry MD MPHS Cardiothoracic Surgery [facility] documented in this encounter Miscellaneous Notes * Plan of Care - Meghan Hand RN - 03/25/2021 6:07 AM CDT Goals: Clinical Goals for the Shift: monitor v/s, manage pain, comfort, safety Summary: NAEO, pt states pain well controlled. Problem: Health Behavior: Goal: Understanding of discharge needs will improve Outcome: Progressing Problem: Lack of Knowledge: Goal: Ability to state ways to decrease the risk of falls will improve Outcome: Progressing Problem: Safety: Goal: Will remain free from falls Outcome: Progressing Problem: Lack of Knowledge: Goal: Knowledge of disease or condition and prescribed therapeutic regimen will improve Outcome: Progressing Problem: Cardiac: Goal: Postprocedural complications will be avoided or minimized Outcome: Progressing Problem: Sensory: Goal: Pain level will decrease Outcome: Progressing * Plan of [place] - Rich Squires RN - 03/24/2021 2:37 PM CDT Goals: Clinical Goals for the Shift: monitor v/s, manage pain, comfort, safety Summary: * Plan of Care - Marco A Morrison RN - 03/24/2021 4:12 AM CDT Goals: Clinical Goals for the Shift: stable VS, comfort, and safety Summary: Pt remains vitally stable and free from falls. Pt rests comfortably in bed and reported pain that was relieved with medication. Will continue to monitor. Problem: Safety: Goal: Will remain free from falls Outcome: Progressing Goal: Will remain free from injury from falls Outcome: Progressing Problem: Coping: Goal: Level of anxiety will decrease Outcome: Progressing Problem: Sensory: Goal: Pain level will decrease Outcome: Progressing Problem: Coping: Goal: Level of anxiety will decrease Outcome: Progressing Problem: Sensory: Goal: Pain level will decrease Outcome: Progressing Problem: Activity: Goal: Mobility will improve Outcome: Progressing Problem: Skin Integrity: Goal: Risk for impaired skin integrity will decrease Outcome: Progressing Goal: Ability to demonstrate warm and dry skin will improve Outcome: Progressing Goal: Circulation will improve to fullest extent possible Outcome: Progressing * Plan of Rich Montenegro RN - 03/23/2021 6:11 PM CDT Goals: Clinical Goals for the Shift: pain control, comfort, safety, monitor breathing Summary: * Plan of Care - Alyssa Jung COTA - 03/23/2021 1:23 PM CDT Problem: Dressings Lower Extremities Goal: STG - Patient to complete lower body dressing Description: INCLUDING ITEM RETRIEVAL FOR UNDERWEAR/FOOTIES WITH SUPERVISION 1 TIME. Outcome: Progressing Note: LE DRESSING (UNDERWEAR / PANTS) LOCATION OF LE DRESSING (UNDERWEAR / PANTS): Sitting on EOB TASKS COMPLETED: Underwear OVERALL ASSIST LEVEL: SET-UP / CLEAN-UP ASSISTANCE ADDITIONAL DOCUMENTATION: PATIENT DONNED UNDERWEAR AT EOB WITH GOOD DYNAMIC SITTING AND STANDING BALANCE WITH TASKS Problem: Transfers Goal: STG - Patient will perform toilet transfer Description: WITH MOD INDEP 1 TIME. Outcome: Progressing Note: Mobility / Transfers: Bed Mobility: SUPINE TO/FROM EOB SPV WITH 2(MIN) V/CS FOR STERNAL PRECAUTIONS Transfer(s): EOB TO/FROM TOILET SPV NO DEVICE. 2(MIN) V/CS FOR STERNAL PRECAUTIONS Problem: Precautions Goal: STG - Patient will demonstrate precautions consistently during ADL tasks/functional mobility. Description: STERNAL PRECAUTIONS. Outcome: Progressing Note: Mobility / Transfers: Bed Mobility: SUPINE TO/FROM EOB SPV WITH 2(MIN) V/CS FOR STERNAL PRECAUTIONS Transfer(s): EOB TO/FROM TOILET SPV NO DEVICE. 2(MIN) V/CS FOR STERNAL PRECAUTIONS MARIANELA Inman 03/23/21 1:23 PM * Plan of Care - Brittni Barakat RN - 03/23/2021 12:58 PM CDT CM met with pt & Dottie at bedside to discuss discharge plans. [facility] & [place] insurance authorized per HIRA Rodriguez (P: [phone], F: [phone]) with SOC 03/26 -- contact info on AVS & HHN order sent via [employer]. Need to send AVS/DC instructions when available. No further CM discharge needs at this time. NETTIE Le-RN [facility] [phone] * Plan of Care - Adilia Fisher RN - 03/23/2021 8:09 AM CDT CM gave handoff report to Brittni LEYVA on 9th Floor. Adilia Fisher RN BSN Staff Research Associate [phone] * Plan of Care - Juan Antonio Camacho RN - 03/23/2021 4:14 AM CDT Goals: Clinical Goals for the Shift: comfort, safety, VSS, labs stable Summary: Problem: Safety: Goal: Will remain free from injury from falls Outcome: Progressing Goal: Will remain free from falls and injury in home environment Outcome: Progressing * Plan of Care - Katie Zaidi RN - 03/22/2021 6:44 PM CDT Goals: Clinical Goals for the Shift: comfort, safety, VSS, labs stable Summary: Problem: Health Behavior: Goal: Understanding of discharge needs will improve Outcome: Progressing Problem: Lack of Knowledge: Goal: Ability to state ways to decrease the risk of falls will improve Outcome: Progressing Problem: Safety: Goal: Will remain free from falls Outcome: Progressing Goal: Will remain free from injury from falls Outcome: Progressing Goal: Will remain free from falls and injury in home environment Outcome: Progressing Problem: Lack of Knowledge: Goal: Knowledge of disease or condition and prescribed therapeutic regimen will improve Outcome: Progressing Problem: Coping: Goal: Level of anxiety will decrease Outcome: Progressing Problem: Sensory: Goal: Pain level will decrease Outcome: Progressing Problem: Cardiac: Goal: Postprocedural complications will be avoided or minimized Outcome: Progressing Problem: Lack of Knowledge: Goal: Understanding of discharge needs will improve Outcome: Progressing Problem: Coping: Goal: Level of anxiety will decrease Outcome: Progressing Problem: Sensory: Goal: Pain level will decrease Outcome: Progressing Problem: Skin Integrity: Goal: Will regain and/or maintain adequate tissue perfusion Outcome: Progressing Problem: Activity: Goal: Mobility will improve Outcome: Progressing Problem: Lack of Knowledge: Goal: Understanding of ways to prevent future skin breakdown will improve Outcome: Progressing Goal: Ability to identify appropriate dietary choices will improve Outcome: Progressing Problem: Nutritional: Goal: Dietary intake will improve Outcome: Progressing Goal: Ability to maintain a balanced intake and output will improve Outcome: Progressing Problem: Skin Integrity: Goal: Risk for impaired skin integrity will decrease Outcome: Progressing Goal: Ability to demonstrate warm and dry skin will improve Outcome: Progressing Goal: Circulation will improve to fullest extent possible Outcome: Progressing * Plan of Care - Adilia Fisher RN - 03/21/2021 3:07 PM CDT [facility] has accepted patient for home health services with a SOC date of 03/26/21. Information placed in AVS. Adilia TAVAREZN Staff Research Associate [phone] * Plan of Care - Adilia Fisher RN - 03/21/2021 1:59 PM CDT Home health referrals sent awaiting response. Adilia SHEFFIELD Staff Research Associate [phone] * Plan of Care - Roland Coleman RRT - 03/21/2021 10:05 AM CDT Oxygen Therapy Patient remains on oxygen titration protocol. Wean FiO2 to maintain SpO2 >92%. Inhaled Bronchodilator Therapy Pt assessed and scored per the established inhaled bronchodilator protocol criteria. Pt preference and subjective response to therapy used in conjunction with pt score to provide current updraft therapy. * Plan of Care - Brittni Barakat RN - 03/21/2021 8:49 AM CDT Report given to CVU JANAY Oglesby to follow-up discharge planning. NETTIE Le-RN [facility] [phone] * Plan of Care - Uday Michael RN - 03/21/2021 8:38 AM CDT Goals: Clinical Goals for the Shift: maintain NPO for procedure, monitor v/s, comfort, safety Summary: Problem: Health Behavior: Goal: Understanding of discharge needs will improve Outcome: Not Progressing Problem: Lack of Knowledge: Goal: Ability to state ways to decrease the risk of falls will improve Outcome: Not Progressing Problem: Safety: Goal: Will remain free from falls Outcome: Not Progressing Goal: Will remain free from injury from falls Outcome: Not Progressing Goal: Will remain free from falls and injury in home environment Outcome: Not Progressing Problem: Lack of Knowledge: Goal: Knowledge of disease or condition and prescribed therapeutic regimen will improve Outcome: Not Progressing Problem: Coping: Goal: Level of anxiety will decrease Outcome: Not Progressing Problem: Sensory: Goal: Pain level will decrease Outcome: Not Progressing Problem: Cardiac: Goal: Postprocedural complications will be avoided or minimized Outcome: Not Progressing Problem: Lack of Knowledge: Goal: Understanding of discharge needs will improve Outcome: Not Progressing Problem: Coping: Goal: Level of anxiety will decrease Outcome: Not Progressing Problem: Sensory: Goal: Pain level will decrease Outcome: Not Progressing Problem: Skin Integrity: Goal: Will regain and/or maintain adequate tissue perfusion Outcome: Not Progressing Problem: Activity: Goal: Mobility will improve Outcome: Not Progressing Problem: Lack of Knowledge: Goal: Understanding of ways to prevent future skin breakdown will improve Outcome: Not Progressing Goal: Ability to identify appropriate dietary choices will improve Outcome: Not Progressing Problem: Nutritional: Goal: Dietary intake will improve Outcome: Not Progressing Goal: Ability to maintain a balanced intake and output will improve Outcome: Not Progressing Problem: Skin Integrity: Goal: Risk for impaired skin integrity will decrease Outcome: Not Progressing Goal: Ability to demonstrate warm and dry skin will improve Outcome: Not Progressing Goal: Circulation will improve to fullest extent possible Outcome: Not Progressing * Plan of Care - Nadiya Segovia MSW - 03/21/2021 8:11 AM CDT BACK TENDER INSULATION BOARD is completed by CM. CM/ AFRICAN HISTORY PROFESSOR will follow pt. When come to 9th floor. * Plan of Care - Aleksey Kellogg RN - 03/21/2021 6:36 AM CDT Goals: pt will wean off vent and pressors. Minimal bleeding. Stable vitals and card output.reintroduce diet and activity. Summary: extubated to nc. Epinephrine and milrinone off. Levophed weaned down. Sitting up in chair.Denies nausea * Plan of Care - Anna Marie Mac RRT - 03/20/2021 10:20 PM CDT SBT started at 2054 5/5 40%. This was tolerated well and abg results were satisfactory, 7.38/38/126/22/98% at 2139. Therefore patient was extubated at 2209 without difficulty. Patient tolerated this well and is now on 5L NC with O2 sat of 100%. Plans to titrate O2. * Perioperative Nursing Note - Cherri Patton RN - 03/20/2021 3:06 PM CDT Family updated at 1210, 1322 and 1505 CVU notified off bypass at 1502 Bypass on 1318/ off 1459 Clamp on 1321/ 1411 * Op Note - Malathi Curry MD - 03/20/2021 12:06 PM CDT Op Note: CABG Patient: Jeanie Cali Service Date: 03/20/2021 : 1965 Admit Date: 03/16/2021 SURGEON Malathi Curry MD PROVIDER NETWORK MGR Aminah Weiner PREOPERATIVE DIAGNOSIS Coronary artery disease POSTOPERATIVE DIAGNOSIS Coronary artery disease PROCEDURE PERFORMED Coronary artery bypass grafting x 2 (ANDERSON to LAD, saphenous vein graft to diagonal branch) Bilateral pectoralis major myofascial flaps Sternal plating ANESTHESIA General. INDICATIONS This is a 55 y.o. male with a history of HTN, Crohn's disease s/p multiple bowel resections on Humira therapy, who noted chest pressure starting approximately 3 weeks ago that was substernal, moderate in intensity, nonradiating, brought on by exertion, and relieved by rest. He notes episodes of this pain 2-3 times a week since it started. He had left-heart catheterization that showed tight proximal LAD lesion with a large amount of calcification and a larger diagonal branch with proximal disease as well. We offered him coronary artery bypass grafting to address his advanced coronary artery disease not easily amenable to percutaneous therapy. He is also on immunosuppressive medications including Humira and Methotrexate for his Crohn's disease, so I offered him sternal plating to aid sternal healing and stability following surgery. OPERATIVE FINDINGS The patient had normal heart function without significant valvular disease at the start of the caseby HELLEN. His diagonal branch was a 1.5 millimeter vessel bypassed with saphenous vein graft with flows of 30 ml/min and PI 2.1 off cardiopulmonary bypass. The LAD was a 1.5 millimeter vessel bypassed with the ANDERSON with flows of 109 ml/min and PI 2.0. The patient had normal heart function at the end of the case with inotropic and pressor support. Curiously, although minimal cardioplegia was used, the patient had high potassium levels on pump and we stay on pump for an extra 20-30 minutes to help clear his potassium prior to coming off pump. Cross-clamp time was 50 minutes. Bypass time 101 minutes. DESCRIPTION OF PROCEDURE After induction of anesthesia and endotracheal intubation the patient's neck, chest, abdomen, and legs were prepped and draped in a sterile fashion. The right greater saphenous vein was harvested using an endoscopic technique. A median sternotomy was performed. The left internal mammary artery was harvested in a pedicled fashion. Systemic heparin was administered. The pericardium was opened and suspended. An epiaortic ultrasound probe was used to scan the ascending aorta and there were no calcified or noncalcified plaques noted. An area on the aorta was then identified for cannulation and cross-clamping. Aortic and right atrial cannulation was performed using 2-0 Prolene pursestring sutures. A coronary sinus catheter was placed. An antegrade cardioplegia catheter with aortic root vent wasplaced. We went on bypass once ACT was adequate. The aorta was cross clamped. Antegrade followed byretrograde cardioplegia was administered. Cardioplegia was administered once more 15 minutes thereafter. The heart was retracted. The diagonal branch was identified, opened, and grafted using running 7-0 Prolene. The proximal anastomosis was made on an aortotomy made with a 4.8 mm punch using 5-0 Prolene.The proximal site was marked with a radioopaque marker. The LAD was then opened and the left RADHA anastomosed to it in an end-to-side fashion with running 7-0 Prolene. The RADHA flow was checked with the cross clamp on and it was good. Warm retrograde cardioplegia was administered. The crossclamp was removed. Ventricular and atrial pacing wires were placed. The patient was allowed to reperfuse and was ventilated and was allowed to eject. Once the de-airing maneuvers were completed, the root vent was removed. The patient was weaned off bypass successfully eventually following a 20-30 minute period to address ongoing hyperkalemia. The patient was decannulated. At this point, the patient's chest was drained with appropriate chest tubes. His pericardium was left open. His chest was approximated with four interrupted heavy gauge wire sutures. Bovie electrocautery was used to elevate a pectoralis major myofascial flap on the patient's left side, clearing off approximately 3-4 centimeters of sternum and proximal ribs from the midline. The same was repeated on the patient's right side to create a right-sided pectoralis major myofascial flap. Three titanium plates with eight titanium screws in each plate was used to fixate the manubrium (one plate) and the body of the sternum (two plates). The patient's bilateral muscle flaps were then brought together to cover the sternal plates using absorbablesurgery. His subcutaneous and and skin were then closed with absorbable sutures. Theatient tolerated the procedure well. He was taken to the ICU in stable but critical condition. I was present from the start of the case until skin closure was started. I was immediately available at all other times. The patient received a dose of IV antibiotics within an hour of incision. Orders were given to continue it for 24 hours postoperatively. Preop subcutaneous heparin was not given as the patient was systemically heparinized during the case. The patient was on beta blockade and received a dose within 24 hours of surgery. * Brief Op Note - Malathi Curry MD - 03/20/2021 12:06 PM CDT Operative Progress Note Surgical Team: Surgeon(s) and Role: * Malathi Curry MD - Primary Anesthesiologist: Stepan Fuchs MD [employer] POWER PLANT OPERATOR: Yissel Zamudio CRNA Anesthesiologist Hide Curer: Mari Treviño AA Video Systems Engineer: Franc Mcwilliams Alexia L., CCP Manager Home Improvement: Cherri Patton RN Manager Home Improvement Relief: Ron Yoon RN Scrub Relief: Jaye Garrido RN Scrub: Regina Phillips RN; Rupinder Zarco [facility]: Aminah Weiner RN; Crow Ace CRNFA FLOAT: Alla Hong RN; Ron Yoon RN DATE OF SURGERY : 03/20/2021 Preoperative Diagnosis: Pre-op Diagnosis * Coronary artery disease involving [place] heart without angina pectoris, unspecified vessel or lesion type [I25.10] Postoperative Diagnosis: Post-op Diagnosis * Coronary artery disease involving [place] heart without angina pectoris, unspecified vessel or lesion type [I25.10] Procedure(s): Procedure(s) (LRB): Coronary artery bypass graft x 2 using left internal mammary artery and right saphenous vein which was endoscopically harvested, sternal plating; intraoperative transesophageal echocardiogram as per anesthesia (N/A) CLOSURE STERNAL - WITH PLATES (N/A) Operative Findings: CAD s/p CABG x 2 (ANDERSON to LAD, SVG to diagonal branch), sternal plating Estimated Blood Loss: No blood loss documented. Intraoperative Fluids: Cardiopulmonary bypass Specimens: No specimen collected in procedure Implants: Implant Name Type Inv. Item Serial No. Fill Plant Operator Lot No. LRB No. Used Action KLS-KASH LP -[id number] TITANIUM 1.8MM 8 HOLE STERNAL X PLATE BONE MINI STERNOTOMY - [id number] KLS-KASH LP -44 Titanium 1.8mm 8 Hole Sternal X Plate Bone Mini Sternotomy Kls-Kash Lp N/A 3 Implanted KLS-KASH LP DRILL-FREE MAXDRIVE 2.3MM 13MM SELF RETAINING LOCK STERNAL SCREW - [id number] KLS-KASH LP Drill-free Maxdrive 2.3mm 13mm Self Retaining Lock Sternal Screw Kls-Kash Lp N/A 20 [place] [id number] DRILL-FREE MAXDRIVE 2.3MM 15MM SELF RETAIN STERNAL SCREW BONE - [id number] [place] [id number] Drill-free Maxdrive 2.3mm 15mm Self Retain Sternal Screw Bone Kls-Kash Lp N/A 4 Implanted Blood/Blood Products Transfused: none Complications: None Condition on Discharge from the operating room was stable Malathi Curry MD Date: 03/20/2021 Time: 4:10 PM * Plan of Care - Genie Wilson RN - 03/20/2021 4:22 AM CDT Problem: Lack of Knowledge: Goal: Ability to state ways to decrease the risk of falls will improve Outcome: Progressing Problem: Safety: Goal: Will remain free from falls Outcome: Progressing Problem: Lack of Knowledge: Goal: Knowledge of disease or condition and prescribed therapeutic regimen will improve Outcome: Progressing Problem: Coping: Goal: Level of anxiety will decrease Outcome: Progressing Problem: Sensory: Goal: Pain level will decrease Outcome: Progressing Problem: Skin Integrity: Goal: Will regain and/or maintain adequate tissue perfusion Outcome: Progressing Goals: Clinical Goals for the Shift: VSS, No s/s of bleeding, no cardiac symptoms Summary: VSS, Heparin drip infusing. * Plan of Care - Yaritza Junior RN - 03/19/2021 5:55 PM CDT Problem: Safety: Goal: Will remain free from injury from falls Outcome: Progressing Problem: Coping: Goal: Level of anxiety will decrease Outcome: Progressing Problem: Sensory: Goal: Pain level will decrease Outcome: Progressing * Plan of Care - Vianca Mccoy RN - 03/19/2021 5:16 AM CDT Goals: Clinical Goals for the Shift: Stable vital signs and cardiac rhythm, safety, comfort Summary: Vital signs stable. No c/o chest pain. Remains on Heparin gtt at 14 units/kg/hr. * Plan of Care - Kiki Paige RN - 03/18/2021 6:37 PM CDT Goals: Clinical Goals for the Shift: VSS; monitor hep gtt; comfort/safety Summary: Pt resting well in room independently. Heparin gtt cont'd, was not therapeutic this morning but will monitor. Plan for surgery Friday. No complaints of chest pain this shift. Will continue to monitor. * Plan of Care - Stephen Delgado RN - 03/18/2021 2:45 AM CDT Goals: Clinical Goals for the Shift: Monitor v/s, monitor for bleeding, Summary: goals for shift-vss; normalizing routine labs; no c/o chest pain * Plan of Care - Rich Squires RN - 03/17/2021 5:16 PM CDT Goals: Clinical Goals for the Shift: Monitor v/s, monitor for bleeding, Summary: * Plan of Care - Stephen Delgado RN - 03/17/2021 4:47 AM CDT Goals: Clinical Goals for the Shift: Monitor v/s, monitor for bleeding, Summary: goals for shift-vss; normalizing routine labs; chest pain free * Plan of Care - Rich Squires RN - 03/16/2021 3:51 PM CDT Goals: Clinical Goals for the Shift: Monitor v/s, monitor for bleeding, Summary: documented in this encounter Plan of Treatment Pending Results Name Type Priority Associated Diagnoses Date /Time Pulmonary Function Test -[facility]; Complete/Full PFT Routine 03/19/2021 11:13 AM CDT Scheduled Orders Name Type Priority Associated Diagnoses Orde r Schedule Pulmonary Function Test -[facility]; Complete/Full PFT Routine Once for 1 Occur rences starting 03/16/2021 until 03/16/2021 documented as of this encounter Procedures Procedure Name Priority Date/Time Associated Diagnosis Comments POCT GLUCOSE DEVICE Routine 03/25/2021 7 :33 AM CDT XR CHEST 1 VIEW IP Routine 03/25/2021 7:09 AM CDT EGFR Routine 03/25/2021 6:58 AM CDT CBC WITHOUT DIFFERENTIAL Routine 03/25/2021 6:58 AM CDT MAGNESIUM Routine 03/25/2021 6:58 AM CDT RENAL FUNCTION PANEL Routine 03/25/2021 6:58 AM CDT POCT GLUCOSE DEVICE Routine 03/25/2021 1 :51 AM CDT POCT GLUCOSE DEVICE Routine 03/24/2021 1 0:33 PM CDT POCT GLUCOSE DEVICE Routine 03/24/2021 6 :00 PM CDT POCT GLUCOSE DEVICE Routine 03/24/2021 1 2:17 PM CDT POCT GLUCOSE DEVICE Routine 03/24/2021 8 :30 AM CDT EGFR Routine 03/24/2021 7:44 AM CDT APTT Routine 03/24/2021 7:44 AM CDT PROTIME-INR Routine 03/24/2021 7:44 AM CDT CBC WITHOUT DIFFERENTIAL Routine 03/24/2021 7:44 AM CDT MAGNESIUM Routine 03/24/2021 7:44 AM CDT RENAL FUNCTION PANEL Routine 03/24/2021 7:44 AM CDT XR CHEST 1 VIEW IP Routine 03/24/2021 5:41 AM CDT POCT GLUCOSE DEVICE Routine 03/23/2021 7 :53 PM CDT POCT GLUCOSE DEVICE Routine 03/23/2021 5 :59 PM CDT POCT GLUCOSE DEVICE Routine 03/23/2021 1 1:52 AM CDT POCT GLUCOSE DEVICE Routine 03/23/2021 7 :23 AM CDT XR CHEST 1 VIEW IP Routine 03/23/2021 5:28 AM CDT EGFR Routine 03/23/2021 4:51 AM CDT CBC WITHOUT DIFFERENTIAL Routine 03/23/2021 4:51 AM CDT MAGNESIUM Routine 03/23/2021 4:51 AM CDT RENAL FUNCTION PANEL Routine 03/23/2021 4:51 AM CDT POCT GLUCOSE DEVICE Routine 03/22/2021 6 :04 PM CDT CRITICAL CARE Routine 03/22/2021 4:12 PM CDT Coronary artery disease involving [place] coronary artery of [place] heart without angina pectoris XR CHEST 1 VIEW IP Routine 03/22/2021 5:32 AM CDT EGFR Routine 03/22/2021 3:58 AM CDT CBC WITHOUT DIFFERENTIAL Routine 03/22/2021 3:58 AM CDT MAGNESIUM Routine 03/22/2021 3:58 AM CDT RENAL FUNCTION PANEL Routine 03/22/2021 3:58 AM CDT CRITICAL CARE Routine 03/21/2021 8:18 PM CDT Coronary artery disease involving [place] coronary artery of [place] heart without angina pectoris POCT GLUCOSE DEVICE Routine 03/21/2021 7 :29 PM CDT EGFR Timed 03/21/2021 1:37 PM CDT DIFFERENTIAL AUTO Routine 03/21/2021 1:3 7 PM CDT CBC WITH AUTO DIFFERENTIAL Routine 03/21/2021 1:37 PM CDT MAGNESIUM Timed 03/21/2021 1:37 PM CDT RENAL FUNCTION PANEL Timed 03/21/2021 1:37 PM CDT POCT GLUCOSE DEVICE Routine 03/21/2021 1 1:54 AM CDT POCT GLUCOSE DEVICE Routine 03/21/2021 7 :56 AM CDT XR CHEST 1 VIEW IP Routine 03/21/2021 5:29 AM CDT POCT GLUCOSE DEVICE Routine 03/21/2021 4 :02 AM CDT OXYHEMOGLOBIN, CENTRAL VENOUS Routine 03/21/2021 3:59 AM CDT EGFR Routine 03/21/2021 3:59 AM CDT DIFFERENTIAL AUTO Routine 03/21/2021 3:5 9 AM CDT CBC WITH AUTO DIFFERENTIAL Routine 03/21/2021 3:59 AM CDT MAGNESIUM Routine 03/21/2021 3:59 AM CDT BASIC METABOLIC PANEL Routine 03/21/2021 3:59 AM CDT POCT GLUCOSE DEVICE Routine 03/21/2021 1 :52 AM CDT POCT GLUCOSE DEVICE Routine 03/21/2021 1 2:02 AM CDT CRITICAL CARE Routine 03/20/2021 10:10 PM CDT Coronary artery disease involving [place] coronary artery of [place] heart without angina pectoris POCT GLUCOSE DEVICE Routine 03/20/2021 9 :46 PM CDT BLOOD GAS, ARTERIAL STAT 03/20/2021 9 :39 PM CDT POCT GLUCOSE DEVICE Routine 03/20/2021 9 :01 PM CDT POCT GLUCOSE DEVICE Routine 03/20/2021 8 :08 PM CDT EGFR Timed 03/20/2021 8:04 PM CDT CALCIUM, IONIZED Timed 03/20/2021 8:04 PM CDT CBC WITHOUT DIFFERENTIAL Timed 03/20/2021 8:04 PM CDT BLOOD GAS, ARTERIAL Timed 03/20/2021 8 :04 PM CDT BASIC METABOLIC PANEL Timed 03/20/2021 8:04 PM CDT POCT GLUCOSE DEVICE Routine 03/20/2021 6 :15 PM CDT BLOOD GAS, ARTERIAL STAT 03/20/2021 5 :38 PM CDT POCT GLUCOSE DEVICE Routine 03/20/2021 5 :35 PM CDT ECG 12-LEAD STAT 03/20/2021 4:42 PM CDT XR CHEST 1 VIEW Critical/Life-T hreatening 03/20/2021 4:42 PM CDT BLOOD GAS, ARTERIAL Timed 03/20/2021 4 :36 PM CDT EGFR Timed 03/20/2021 4:34 PM CDT CALCIUM, IONIZED STAT 03/20/2021 4:34 PM CDT APTT STAT 03/20/2021 4:34 PM CDT PROTIME-INR STAT 03/20/2021 4:34 PM CDT CBC WITHOUT DIFFERENTIAL Timed 03/20/2021 4:34 PM CDT MAGNESIUM STAT 03/20/2021 4:34 PM CDT BASIC METABOLIC PANEL Timed 03/20/2021 4:34 PM CDT POCT GLUCOSE DEVICE Routine 03/20/2021 4 :18 PM CDT POC BLOOD GAS AND CHEMISTRIES, ARTERIAL Routine 03/20/2021 3:39 PM CDT POTASSIUM, WHOLE BLOOD STAT 03/20/2021 2:47 PM CDT POC BLOOD GAS AND CHEMISTRIES, VENOUS Routine 03/20/2021 2:36 PM CDT POC BLOOD GAS AND CHEMISTRIES, ARTERIAL Routine 03/20/2021 2:18 PM CDT POC BLOOD GAS AND CHEMISTRIES, VENOUS Routine 03/20/2021 2:00 PM CDT PLATELET COUNT STAT 03/20/2021 1:58 PM CDT POC BLOOD GAS AND CHEMISTRIES, ARTERIAL Routine 03/20/2021 1:35 PM CDT POC BLOOD GAS AND CHEMISTRIES, ARTERIAL Routine 03/20/2021 12:07 PM CDT CLOSURE STERNAL - WITH PLATES 03/20/2021 11:21 AM CDT Coronary artery disease involving [place] heart without angina pectoris, unspecified vessel or lesion type CORONARY ARTERY BYPASS GRAFT - INTERNAL MAMMARY/SAPHENOUS VEIN GRAFT - LEG 03/20/2021 11:21 AM CDT Coronary artery disease involving [place] heart without angina pectoris, unspecified vessel or lesion type APTT Routine 03/20/2021 6:25 AM CDT CBC WITHOUT DIFFERENTIAL Routine 03/20/2021 6:25 AM CDT TYPE AND SCREEN Timed 03/19/2021 5:29 PM CDT PREPARE RBC STAT 03/19/2021 4:17 PM CDT APTT Routine 03/19/2021 5:42 AM CDT CBC WITHOUT DIFFERENTIAL Routine 03/19/2021 5:30 AM CDT APTT Timed 03/18/2021 6:30 PM CDT TRANSTHORACIC ECHO (TTE) COMPLETE W DOPPLER/CF WO CONTRAST Routine 03/18/2021 3:30 PM CDT APTT Timed 03/18/2021 1:21 PM CDT APTT Timed 03/18/2021 5:41 AM CDT CBC WITHOUT DIFFERENTIAL Routine 03/18/2021 5:41 AM CDT APTT Timed 03/17/2021 6:10 AM CDT HEMOGLOBIN A1C Routine 03/17/2021 6:10 AM CDT APTT Timed 03/17/2021 12:35 AM CDT CBC WITHOUT DIFFERENTIAL Routine 03/17/2021 12:35 AM CDT COVID-19 CORONAVIRUS RNA Routine 03/16/2021 7:19 PM CDT EGFR Timed 03/16/2021 7:02 PM CDT APTT Timed 03/16/2021 7:02 PM CDT COMPREHENSIVE METABOLIC PANEL Timed 03/16/2021 7:02 PM CDT URINALYSIS AND REFLEX TO MICROSCOPIC AND CULTURE Routine 03/16/2021 1:40 PM CDT XR CHEST 1 VIEW IP Routine 03/16/2021 11:02 AM CDT EGFR Routine 03/16/2021 10:50 AM CDT APTT STAT 03/16/2021 10:50 AM CDT PROTIME-INR STAT 03/16/2021 10:50 AM CDT CBC WITHOUT DIFFERENTIAL STAT 03/16/2021 10:50 AM CDT MAGNESIUM Routine 03/16/2021 10:50 AM CDT COMPREHENSIVE METABOLIC PANEL Routine 03/16/2021 10:50 AM CDT documented in this encounter Results * POCT glucose (03/25/2021 7:33 AM CDT) [facility] Glucose, POC 98 70 - 199 mg/dL CHRISTINA CARRENO Blood 03/25/2021 7:33 AM CDT 03/25/2021 7:33 AM CDT Malathi Curry MD LAB POCT ORDERABLES - DEVICE F inal Result CHRISTINA [address] Department of Laboratories [place], [place] [id number] * XR Chest 1 View - Portable [...] Curry MD IMG XR PROCEDURES Final Result * eGFR (03/25/2021 6:58 AM CDT) [facility] eGFR 86 mL/min/1.7 3 m2 [facility] Comment: Interpretive Data Reference Interval Normal ?>/= 90 mL/min/1.73m2 Mildly decreased* ? 60 - 89 mL/min/1.73m2 Mildly to moderately decreased ?45 - 59 mL/min/1.73m2 Moderately to severely decreased ??30 - 44 mL/min/1.73m2 Severely decreased ?15 - 29 mL/min/1.73m2 Kidney Failure ?< 15 ??mL/min/1.73m2 *Relative to young adult level Estimated glomerular filtration rate is determined by the CKD-EPI equation recommended by the National Kidney Foundation (KDIGO 2012 Clinical Practice Guideline for the Evaluation and Management of Chronic Kidney Disease. Kidney Intnl Suppl May 2012;3:1). The CKD-EPI equation should not be used for patients with unstable renal function and has not been validated in children and those over 70. Current interpretive data was last reviewed 2020 Blood 03/25/2021 6:58 AM CDT 03/25/2021 7:03 AM CDT Malathi Curry MD LAB BLOOD ORDERABLES Final Res ult [facility] [address] Department of [place] [address] * (ABNORMAL) Renal function panel (03/25/2021 6:58 AM CDT) Sodium 134(L) 135 - 145 mmol/L [facility] Potassium, pl 4.0 3.3 - 4.9 mmol/L [facility] Chloride 99 97 - 110 mmol/L [facility] CO2 24 22 - 32 mmol/L [facility] Anion gap 11 2 - 15 mmol/L [facility] BUN 12 8 - 25 mg/dL [facility] Creatinine 0.98 0.80 - 1.30 mg/dL [facility] Glucose 112 70 - 199 mg/dL [facility] Comment: Interpretive Data Fasting glucose >/= 126 mg/dl is diagnostic for diabetes. ?? Fasting is defined as no caloric intake for at least 8 hours. Fasting glucose between 100 mg/dl to 125 mg/dl is diagnostic of prediabetes. In a patient with classic symptoms of hyperglycemia or hyperglycemic crisis, a random glucose >/= 200 mg/dl is diagnostic for diabetes. In the absence of unequivocal hyperglycemia, results should be confirmed by repeat testing. The classification and Diagnosis of Diabetes Diabetes Care 2017;40 (Suppl. 1):S11. Current interpretive data was last revised 2017. Calcium 9.0 8.5 - 10.3 mg/dL [facility] Phosphorus, pl 3.5 2.3 - 4.5 mg/dL [facility] Albumin 3.4(L) 3.5 - 5.0 g/dL [facility] Blood 03/25/2021 6:58 AM CDT 03/25/2021 7:03 AM CDT Malathi Curry MD LAB BLOOD ORDERABLES Final Res ult Performing Organization Address City/[facility] Co de Phone Number CHRISTINA [address] Department of [employer] [place], [place] [id number] * (ABNORMAL) CBC without differential (03/25/2021 6:58 AM CDT) WBC 5.2 3.8 - 9.9 K/cumm [facility] Hgb 8.3(L) 13.0 - 17.5 g/dL [facility] Hct 25.7(L) 38.9 - 50.3 % [facility] Plt 236 150 - 400 K/cumm [facility] MPV 8.6(L) 9.1 - 12.3 fL [facility] RBC 2.61(L) 4.30 - 5.80 M/cumm [facility] MCV 98.5(H) 81.3 - 96.4 fL [facility] MCH 31.8 27.1 - 33.3 pg [facility] MCHC 32.3 32.3 - 35.7 g/dL [facility] RDW CV 13.2 11.1 - 14.9 % [facility] RDW SD 47.8 35.7 - 48.1 fL [facility] NRBC abs 0.00 0.00 - 0.01 K/cumm [facility] Blood 03/25/2021 6:58 AM CDT 03/25/2021 7:03 AM CDT Malathi Curry MD LAB BLOOD ORDERABLES Final Res ult Performing Organization Address [facility] Co de Phone Number CHRISTINA CARRENO [address] Department [place] [employer] [place] [address] * Magnesium (03/25/2021 6:58 AM CDT) Magnesium 1.9 1.4 - 2.5 mg/dL [facility] Blood 03/25/2021 6:58 AM CDT 03/25/2021 7:03 AM CDT Malathi Curry MD LAB BLOOD ORDERABLES Final Res ult Performing Organization Address City/[facility]/ZIP Co de Phone Number CHRISTINA CARRENO [address] [facility] [employer] [place] [address] * POCT glucose (03/25/2021 1:51 AM CDT) Glucose, POC 133 70 - 199 mg/dL [facility] Blood 03/25/2021 1:51 AM CDT 03/25/2021 1:51 AM CDT Malathi Curry MD LAB POCT ORDERABLES - DEVICE F inal Result Performing Organization Address [facility] Co de Phone Number CHRISTINA CARRENO [address] [facility] [employer] [place] [address] * POCT glucose (03/24/2021 10:33 PM CDT) Glucose, POC 132 70 - 199 mg/dL [facility] Blood 03/24/2021 10:3 3 PM CDT 03/24/2021 10:33 PM CDT Malathi Curry MD LAB POCT ORDERABLES - DEVICE F inal Result Performing Organization Address [facility] Co de Phone Number CHRISTINA CARRENO [address] [facility] [employer] [place] [address] * POCT glucose (03/24/2021 6:00 PM CDT) Glucose, POC 94 70 - 199 mg/dL [facility] Blood 03/24/2021 6:00 PM CDT 03/24/2021 6:00 PM CDT us Malathi Curry MD LAB POCT ORDERABLES - DEVICE F inal Result Performing Organization Address [facility] Co de Phone Number CHRISTINA CARRENO [address] [facility] [employer] [place] [address] * POCT glucose (03/24/2021 12:17 PM CDT) Glucose, POC 127 70 - 199 mg/dL [facility] Blood 03/24/2021 12:1 7 PM CDT 03/24/2021 12:17 PM CDT Malathi Curry MD LAB POCT ORDERABLES - DEVICE F inal Result Performing Organization Address [facility] de Phone Number [facility] [address] [facility] [employer] [place] [address] * POCT glucose (03/24/2021 8:30 AM CDT) Glucose, POC 131 70 - 199 mg/dL [facility] Blood 03/24/2021 8:30 AM CDT 03/24/2021 8:30 AM CDT Malathi Curry MD LAB POCT ORDERABLES - DEVICE F inal Result Performing Organization Address [facility] de Phone Number [facility] [address] [facility] [employer] [place] [address] * eGFR (03/24/2021 7:44 AM CDT) eGFR 73 mL/min/1.7 3 m2 [facility] Comment: Interpretive Data Reference Interval Normal ?>/= 90 mL/min/1.73m2 Mildly decreased* ? 60 - 89 mL/min/1.73m2 Mildly to moderately decreased ?45 - 59 mL/min/1.73m2 Moderately to severely decreased ??30 - 44 mL/min/1.73m2 Severely decreased ?15 - 29 mL/min/1.73m2 Kidney Failure ?< 15 ??mL/min/1.73m2 *Relative to young adult level Estimated glomerular filtration rate is determined by the CKD-EPI equation recommended by the National Kidney Foundation (KDIGO 2012 Clinical Practice Guideline for the Evaluation and Management of Chronic Kidney Disease. Kidney Intnl Suppl May 2012;3:1). The CKD-EPI equation should not be used for patients with unstable renal function and has not been validated in children and those over 70. Current interpretive data was last reviewed 2020 Blood 03/24/2021 7:44 AM CDT 03/24/2021 8:31 AM CDT us Malathi Curry MD LAB BLOOD ORDERABLES Final Res ult [facility] [address] Department [place] [address] * (ABNORMAL) Renal function panel (03/24/2021 7:44 AM CDT) Sodium 136 135 - 145 mmol/L [facility] Potassium, pl 3.8 3.3 - 4.9 mmol/L [facility] Chloride 99 97 - 110 mmol/L [facility] CO2 27 22 - 32 mmol/L [facility] Anion gap 10 2 - 15 mmol/L [facility] BUN 15 8 - 25 mg/dL [facility] Creatinine 1.13 0.80 - 1.30 mg/dL [facility] Glucose 114 70 - 199 mg/dL [facility] Comment: Interpretive Data Fasting glucose >/= 126 mg/dl is diagnostic for diabetes. ?? Fasting is defined as no caloric intake for at least 8 hours. Fasting glucose between 100 mg/dl to 125 mg/dl is diagnostic of prediabetes. In a patient with classic symptoms of hyperglycemia or hyperglycemic crisis, a random glucose >/= 200 mg/dl is diagnostic for diabetes. In the absence of unequivocal hyperglycemia, results should be confirmed by repeat testing. The classification and Diagnosis of Diabetes Diabetes Care 2017;40 (Suppl. 1):S11. Current interpretive data was last revised 2017. Calcium 8.6 8.5 - 10.3 mg/dL [facility] Phosphorus, pl 3.8 2.3 - 4.5 mg/dL [facility] Albumin 3.4(L) 3.5 - 5.0 g/dL [facility] Blood 03/24/2021 7:44 AM CDT 03/24/2021 8:31 AM CDT Malathi Curry MD LAB BLOOD ORDERABLES Final Res ult Performing Organization Address [facility] Co de Phone Number CHRISTINA CARRENO [address] Department [employer] [place] [address] * (ABNORMAL) CBC without differential (03/24/2021 7:44 AM CDT) WBC 4.3 3.8 - 9.9 K/cumm [facility] Hgb 8.3(L) 13.0 - 17.5 g/dL [facility] Hct 26.0(L) 38.9 - 50.3 % [facility] Plt 201 150 - 400 K/cumm [facility] MPV 9.0(L) 9.1 - 12.3 fL [facility] RBC 2.57(L) 4.30 - 5.80 M/cumm [facility] MCV 101.2(H) 81.3 - 96.4 fL [facility] MCH 32.3 27.1 - 33.3 pg [facility] MCHC 31.9(L) 32.3 - 35.7 g/dL [facility] RDW CV 13.4 11.1 - 14.9 % [facility] RDW SD 50.2(H) 35.7 - 48.1 fL [facility] NRBC abs 0.00 0.00 - 0.01 K/cumm [facility] Blood 03/24/2021 7:44 AM CDT 03/24/2021 8:31 AM CDT Malathi Curry MD LAB BLOOD ORDERABLES Final Res ult HCRISTINA CARRENO [address] [facility] [employer] [place] [address] * Magnesium (03/24/2021 7:44 AM CDT) Magnesium 1.9 1.4 - 2.5 mg/dL [facility] Blood 03/24/2021 7:44 AM CDT 03/24/2021 8:31 AM CDT Malathi Curry MD LAB BLOOD ORDERABLES Final Res ult Performing Organization Address [facility] de Phone Number [facility] [address] [facility] [employer] [place] [address] * Protime-INR (03/24/2021 7:44 AM CDT) PT 12.0 9.5 - 13.6 sec [facility] INR 1.1 0.9 - 1.2 [facility] Comment: Interpretive data Oral anticoagulant therapeutic ranges: Venous thromboembolism prophylaxis or treatment: 2.0-3.0 CARDIOLOGY Standard range: 2.0-3.0 High-intensity range: 2.5-3.5 Refer to indication-specific guidelines for appropriate target ranges for prosthetic heart valve replacement. Current interpretive data was last revised on 2019. Blood 03/24/2021 7:44 AM CDT 03/24/2021 8:31 AM CDT Stevie Vicente NP LAB BLOOD ORDERABLES Final Result Performing Organization Address [facility] de Phone Number [facility] [address] [facility] [employer] [place] [address] * aPTT (03/24/2021 7:44 AM CDT) aPTT 28 27 - 37 sec [facility] Comment: Interpretive Data Therapeutic heparin range: 60.0 - 94.0 seconds. Based on correlation with therapeutic heparin activity range of 0.3-0.7 Units/mL. Current interpretive data was last revised on 2020. Blood 03/24/2021 7:44 AM CDT 03/24/2021 8:31 AM CDT Stevie Vicente NP LAB BLOOD ORDERABLES Final Result CHRISTINA CARRENO [address] Department [place] [address] * XR Chest 1 View - Portable - in AM (03/24/2021 5:41 AM CDT) Anatomical Region Laterality Modality Body, Chest N/A Computed Radiogr aphy 03/24/2021 8:31 AM CDT Impressions 03/24/2021 8:31 AM CDT No acute pulmonary disease. Electronically signed by: Analia Goncalves M.D. Narrative 03/24/2021 8:31 AM CDT Examination: XR CHEST 1 VIEW Date: 03/24/2021 4:05 AM History: s/p cardiac surg Comparison: 03/23/2021. 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 No acute infiltrate or effusion is seen. No pneumothorax is seen. Procedure Note Analia Goncalves MD - 03/24/2021 Examination: XR CHEST 1 VIEW Date: 03/24/2021 4:05 AM History: s/p cardiac surg Comparison: 03/23/2021. 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 No acute infiltrate or effusion is seen. No pneumothorax is seen. IMPRESSION: No acute pulmonary disease. Electronically signed by: Analia Goncalves M.D. us Malathi Curry MD IMG XR PROCEDURES Final Result * POCT glucose (03/23/2021 7:53 PM CDT) Glucose, POC 144 70 - 199 mg/dL CHRISTINA Blood 03/23/2021 7:53 PM CDT 03/23/2021 7:53 PM CDT us Malathi Curry MD LAB POCT ORDERABLES - DEVICE F inal Result CHRISTINA CARRENO [address] Department of [place] [address] * POCT glucose (03/23/2021 5:59 PM CDT) Glucose, POC 141 70 - 199 mg/dL [facility] Blood 03/23/2021 5:59 PM CDT 03/23/2021 5:59 PM CDT Malathi Curry MD LAB POCT ORDERABLES - DEVICE F inal Result Performing Organization Address [facility] Co de Phone Number CHRISTINA [address] [facility] [employer] [place] [address] * POCT glucose (03/23/2021 11:52 AM CDT) Glucose, POC 136 70 - 199 mg/dL [facility] Blood 03/23/2021 11:5 2 AM CDT 03/23/2021 11:52 AM CDT Malathi Curry MD LAB POCT ORDERABLES - DEVICE F inal Result Performing Organization Address [facility] de Phone Number CHRISTINA [address] [facility] [employer] [place] [address] * POCT glucose (03/23/2021 7:23 AM CDT) Glucose, POC 126 70 - 199 mg/dL [facility] Blood 03/23/2021 7:23 AM CDT 03/23/2021 7:23 AM CDT Malathi Curry MD LAB POCT ORDERABLES - DEVICE F inal Result Performing Organization Address [facility] de Phone Number [facility] [address] [facility] [place] [place] [address] * XR Chest 1 View - Portable - in AM (03/23/2021 5:28 AM CDT) Anatomical Region Laterality Modality Body, Chest N/A Computed Radiogr aphy 03/23/2021 6:32 AM CDT Impressions 03/23/2021 6:32 AM CDT Removal of chest tube without pneumothorax. ??No failure. Electronically signed by: Neftali Kaminski M.D. Narrative 03/23/2021 6:32 AM CDT EXAMINATION: XR CHEST 1 VIEW DATE: 03/23/2021 4:00 AM HISTORY: 55-year-old man follow-up cardiac surgery FINDINGS:Compared with study of the prior day, [place] catheter withdrawn into the superior vena cava. ??Thoracostomy tube left side removed without pneumothorax. ??Postsurgical changes in the heart and mediastinum. ??No failure or fluid. Procedure Note Neftali Kaminski MD - 03/23/2021 EXAMINATION: XR CHEST 1 VIEW DATE: 03/23/2021 4:00 AM HISTORY: 55-year-old man follow-up cardiac surgery FINDINGS:Compared with study of the prior day, [place] catheter withdrawn into the superior vena cava. Thoracostomy tube left side removed without pneumothorax. Postsurgical changes in the heart and mediastinum. No failure or fluid. IMPRESSION: Removal of chest tube without pneumothorax. No failure. Electronically signed by: Neftali Kaminski M.D. Malathi Curry MD IMG XR PROCEDURES Final Result * eGFR (03/23/2021 4:51 AM CDT) [facility] eGFR 61 mL/min/1.7 3 m2 [facility] Comment: Interpretive Data Reference Interval Normal ?>/= 90 mL/min/1.73m2 Mildly decreased* ? 60 - 89 mL/min/1.73m2 Mildly to moderately decreased ?45 - 59 mL/min/1.73m2 Moderately to severely decreased ??30 - 44 mL/min/1.73m2 Severely decreased ?15 - 29 mL/min/1.73m2 Kidney Failure ?< 15 ??mL/min/1.73m2 *Relative to young adult level Estimated glomerular filtration rate is determined by the CKD-EPI equation recommended by the National Kidney Foundation (KDIGO 2012 Clinical Practice Guideline for the Evaluation and Management of Chronic Kidney Disease. Kidney Intnl Suppl May 2012;3:1). The CKD-EPI equation should not be used for patients with unstable renal function and has not been validated in children and those over 70. Current interpretive data was last reviewed 2020 Blood 03/23/2021 4:51 AM CDT 03/23/2021 5:13 AM CDT Malathi Curry MD LAB BLOOD ORDERABLES Final Res ult [facility] [address] Department of Laboratories [place] [id number] * Renal function panel (03/23/2021 4:51 AM CDT) Sodium 135 135 - 145 mmol/L [facility] Potassium, pl 4.7 3.3 - 4.9 mmol/L [facility] Chloride 97 97 - 110 mmol/L [facility] CO2 28 22 - 32 mmol/L [facility] Anion gap 10 2 - 15 mmol/L [facility] BUN 15 8 - 25 mg/dL [facility] Creatinine 1.30 0.80 - 1.30 mg/dL [facility] Glucose 123 70 - 199 mg/dL [facility] Comment: Interpretive Data Fasting glucose >/= 126 mg/dl is diagnostic for diabetes. ?? Fasting is defined as no caloric intake for at least 8 hours. Fasting glucose between 100 mg/dl to 125 mg/dl is diagnostic of prediabetes. In a patient with classic symptoms of hyperglycemia or hyperglycemic crisis, a random glucose >/= 200 mg/dl is diagnostic for diabetes. In the absence of unequivocal hyperglycemia, results should be confirmed by repeat testing. The classification and Diagnosis of Diabetes Diabetes Care 2017;40 (Suppl. 1):S11. Current interpretive data was last revised 2017. Calcium 8.6 8.5 - 10.3 mg/dL [facility] Phosphorus, pl 3.1 2.3 - 4.5 mg/dL [facility] Albumin 3.5 3.5 - 5.0 g/dL [facility] Blood 03/23/2021 4:51 AM CDT 03/23/2021 5:13 AM CDT Malathi Curry MD LAB BLOOD ORDERABLES Final Res ult Performing Organization Address City/[facility]/ZIP Co de Phone Number CHRISTINA CARRENO [address] [place] [address] * (ABNORMAL) CBC without differential (03/23/2021 4:51 AM CDT) [facility] WBC 3.9 3.8 - 9.9 K/cumm [facility] Hgb 8.7(L) 13.0 - 17.5 g/dL [facility] Hct 26.0(L) 38.9 - 50.3 % [facility] Plt 150 150 - 400 K/cumm [facility] MPV 9.1 9.1 - 12.3 fL [facility] RBC 2.66(L) 4.30 - 5.80 M/cumm [facility] MCV 97.7(H) 81.3 - 96.4 fL [facility] MCH 32.7 27.1 - 33.3 pg [facility] MCHC 33.5 32.3 - 35.7 g/dL [facility] RDW CV 13.6 11.1 - 14.9 % [facility] RDW SD 48.5(H) 35.7 - 48.1 fL [facility] NRBC abs 0.00 0.00 - 0.01 K/cumm [facility] Blood 03/23/2021 4:51 AM CDT 03/23/2021 5:13 AM CDT Malathi Curry MD LAB BLOOD ORDERABLES Final Res ult Performing Organization Address City/[facility]/ZIP Co de Phone Number CHRISTINA CARRENO [address] Department [place] [employer] [place] [address] * Magnesium (03/23/2021 4:51 AM CDT) Magnesium 1.8 1.4 - 2.5 mg/dL [facility] Blood 03/23/2021 4:51 AM CDT 03/23/2021 5:13 AM CDT Malathi Curry MD LAB BLOOD ORDERABLES Final Res ult Performing Organization Address [facility] Co de Phone Number [facility] [address] Department [place] [employer] [place] [address] * POCT glucose (03/22/2021 6:04 PM CDT) Glucose, POC 138 70 - 199 mg/dL [facility] Blood 03/22/2021 6:04 PM CDT 03/22/2021 6:04 PM CDT Malathi Curry MD LAB POCT ORDERABLES - DEVICE F inal Result Performing Organization Address [facility] de Phone Number [facility] [address] Department [place] [employer] [place] [address] * Critical Care (03/22/2021 4:12 PM CDT) Narrative Haroldo Rivas MD - 03/22/2021 4:12 PM CDT Haroldo Rivas MD ? 03/22/2021 ??4:13 PM Critical Care Performed by: Haroldo Rivas MD Authorized by: Haroldo Rivas MD CRITICAL CARE: ??Team: ??[facility] ??Shift: ??AM ??Level of Billing: ??Critical Care ??My time spent with this patient was 30 minutes: Critical Provider Statement: I have seen and examined the patient on this day of service. I have reviewed and confirmed the history, physical exam, laboratory and radiologic data as documented in the signed ICU note. I have reviewed and discussed my treatment plan with the ICU team and other medical/customs consultant staff, making frequent assessments and decisions regarding this patient's complex medical care. Critical Care time was exclusive of time spent performing separately billed procedures, treating other patients, and teaching. This time was in addition to and separate from critical care provided by other practitioners in my group on this day of service. Critical Care was necessary to treat or prevent imminent or life-threatening deterioration of the following conditions: ? Acute pain/acute postoperative pain ??This time was spent by me doing the following: ? Serial laboratory checks ?? Acute pain control ?? I spent time reviewing and interpreting data from bedside monitors, laboratory results, and imaging, I spent time discussing the management of this critically ill patient with consultants and the medical staff and I spent time documenting in the medical record us Haroldo Rivas MD IN CLINIC/BEDSIDE ORDERABLES Final Result * XR Chest 1 View - Portable - in AM (03/22/2021 5:32 AM CDT) Anatomical Region Laterality Modality Body, Chest N/A Computed Radiogr aphy 03/22/2021 8:19 AM CDT Impressions 03/22/2021 8:19 AM CDT Stable appearance without pneumothorax or failure. Electronically signed by: Neftali Kaminski M.D. Narrative 03/22/2021 8:19 AM CDT EXAMINATION: XR CHEST 1 VIEW DATE: 03/22/2021 4:35 AM HISTORY: 55-year-old man cardiac surgery follow-up FINDINGS:Compared with the study of the previous day, Boise-Belle catheter left thoracostomy tube, remain in place. ??Postsurgical changes in the heart and mediastinum without failure fluid infiltrates or pneumothorax. Procedure Note Neftali Kaminski MD - 03/22/2021 EXAMINATION: XR CHEST 1 VIEW DATE: 03/22/2021 4:35 AM HISTORY: 55-year-old man cardiac surgery follow-up FINDINGS:Compared with the study of the previous day, [place]-Belle catheter left thoracostomy tube, remain in place. Postsurgical changes in the heart and mediastinum without failure fluid infiltrates or pneumothorax. IMPRESSION: Stable appearance without pneumothorax or failure. Electronically signed by: Neftali Kaminski M.D. Malathi Curry MD IMG XR PROCEDURES Final Result * eGFR (03/22/2021 3:58 AM CDT) eGFR 81 mL/min/1.7 3 m2 [facility] Comment: Interpretive Data Reference Interval Normal ?>/= 90 mL/min/1.73m2 Mildly decreased* ? 60 - 89 mL/min/1.73m2 Mildly to moderately decreased ?45 - 59 mL/min/1.73m2 Moderately to severely decreased ??30 - 44 mL/min/1.73m2 Severely decreased ?15 - 29 mL/min/1.73m2 Kidney Failure ?< 15 ??mL/min/1.73m2 *Relative to young adult level Estimated glomerular filtration rate is determined by the CKD-EPI equation recommended by the National Kidney Foundation (KDIGO 2012 Clinical Practice Guideline for the Evaluation and Management of Chronic Kidney Disease. Kidney Intnl Suppl May 2012;3:1). The CKD-EPI equation should not be used for patients with unstable renal function and has not been validated in children and those over 70. Current interpretive data was last reviewed 2020 Blood 03/22/2021 3:58 AM CDT 03/22/2021 4:08 AM CDT us Malathi Curry MD LAB BLOOD ORDERABLES Final Res ult [facility] [address] Department of [place] [address] * Renal function panel (03/22/2021 3:58 AM CDT) Sodium 135 135 - 145 mmol/L [facility] Potassium, pl 3.9 3.3 - 4.9 mmol/L [facility] Chloride 99 97 - 110 mmol/L [facility] CO2 26 22 - 32 mmol/L [facility] Anion gap 10 2 - 15 mmol/L [facility] BUN 8 8 - 25 mg/dL [facility] Creatinine 1.03 0.80 - 1.30 mg/dL [facility] Glucose 130 70 - 199 mg/dL [facility] Comment: Interpretive Data Fasting glucose >/= 126 mg/dl is diagnostic for diabetes. ?? Fasting is defined as no caloric intake for at least 8 hours. Fasting glucose between 100 mg/dl to 125 mg/dl is diagnostic of prediabetes. In a patient with classic symptoms of hyperglycemia or hyperglycemic crisis, a random glucose >/= 200 mg/dl is diagnostic for diabetes. In the absence of unequivocal hyperglycemia, results should be confirmed by repeat testing. The classification and Diagnosis of Diabetes Diabetes Care 2017;40 (Suppl. 1):S11. Current interpretive data was last revised 2017. Calcium 8.6 8.5 - 10.3 mg/dL [facility] Phosphorus, pl 3.4 2.3 - 4.5 mg/dL [facility] Albumin 3.6 3.5 - 5.0 g/dL [facility] Blood 03/22/2021 3:58 AM CDT 03/22/2021 4:08 AM CDT us Malathi Curry MD LAB BLOOD ORDERABLES Final Res ult [facility] [address] Department [place] [address] * (ABNORMAL) CBC without differential (03/22/2021 3:58 AM CDT) WBC 7.6 3.8 - 9.9 K/cumm [facility] Hgb 7.9(L) 13.0 - 17.5 g/dL [facility] Hct 23.3(L) 38.9 - 50.3 % [facility] Plt 102(L) 150 - 400 K/cumm [facility] MPV 8.6(L) 9.1 - 12.3 fL [facility] RBC 2.43(L) 4.30 - 5.80 M/cumm [facility] MCV 95.9 81.3 - 96.4 fL [facility] MCH 32.5 27.1 - 33.3 pg [facility] MCHC 33.9 32.3 - 35.7 g/dL [facility] RDW CV 13.5 11.1 - 14.9 % [facility] RDW SD 47.7 35.7 - 48.1 fL [facility] NRBC abs 0.00 0.00 - 0.01 K/cumm [facility] Blood 03/22/2021 3:58 AM CDT 03/22/2021 4:08 AM CDT Malathi Curry MD LAB BLOOD ORDERABLES Final Res ult Performing Organization Address [facility] de Phone Number [facility] [address] [facility] [employer] [place] [address] * Magnesium (03/22/2021 3:58 AM CDT) Magnesium 1.9 1.4 - 2.5 mg/dL [facility] Blood 03/22/2021 3:58 AM CDT 03/22/2021 4:08 AM CDT Malathi Curry MD LAB BLOOD ORDERABLES Final Res ult Performing Organization Address [facility] de Phone Number [facility] [address] [facility] [employer] [place] [address] * Critical Care (03/21/2021 8:18 PM CDT) Narrative Trudi Lamb MD - 03/21/2021 8:18 PM CDT Trudi Lamb MD ? 03/22/2021 ??6:12 AM Critical Care Performed by: Trudi Lamb MD Authorized by: Trudi Lamb MD CRITICAL CARE: ??Team: ??CHNE ??Shift: ??PM ??Level of Billing: ??Critical Care ??My time spent with this patient was 9 minutes: Critical Provider Statement: I have seen and examined the patient on this day of service. I have reviewed and confirmed the history, physical exam, laboratory and radiologic data as documented in the signed ICU note. I have reviewed and discussed my treatment plan with the ICU team and other medical/customs consultant staff, making frequent assessments and decisions regarding this patient's complex medical care. Critical Care time was exclusive of time spent performing separately billed procedures, treating other patients, and teaching. This time was in addition to and separate from critical care provided by other practitioners in my group on this day of service. Critical Care was necessary to treat or prevent imminent or life-threatening deterioration of the following conditions: ? Acute pain/acute postoperative pain ?? Acute blood loss anemia ??This time was spent by me doing the following: ? Acute pain control ?? Active and frequent reassessment of respiratory status and oxygen requirements ?? Active and frequent monitoring of intake/output and volumen status ?? I spent time reviewing and interpreting data from bedside monitors, laboratory results, and imaging, I spent time discussing the management of this critically ill patient with consultants and the medical staff and I spent time documenting in the medical record Trudi Lamb MD IN CLINIC/BEDSIDE [facility] Final Result * POCT glucose (03/21/2021 7:29 PM CDT) Pathologist [facility] Glucose, POC 154 70 - 199 mg/dL [facility] Blood 03/21/2021 7:29 PM CDT 03/21/2021 7:29 PM CDT Wilbur Elliott MD LAB POCT ORDERABLES - DEVICE Fin al Result Performing Organization Address City/State/[facility] Co de Phone Number [facility] [address] [facility] Department [place] [address] * eGFR (03/21/2021 1:37 PM CDT) eGFR 77 mL/min/1.7 3 m2 [facility] Comment: Interpretive Data Reference Interval Normal ?>/= 90 mL/min/1.73m2 Mildly decreased* ? 60 - 89 mL/min/1.73m2 Mildly to moderately decreased ?45 - 59 mL/min/1.73m2 Moderately to severely decreased ??30 - 44 mL/min/1.73m2 Severely decreased ?15 - 29 mL/min/1.73m2 Kidney Failure ?< 15 ??mL/min/1.73m2 *Relative to young adult level Estimated glomerular filtration rate is determined by the CKD-EPI equation recommended by the National Kidney Foundation (KDIGO 2012 Clinical Practice Guideline for the Evaluation and Management of Chronic Kidney Disease. Kidney Intnl Suppl May 2012;3:1). The CKD-EPI equation should not be used for patients with unstable renal function and has not been validated in children and those over 70. Current interpretive data was last reviewed 2020 Blood 03/21/2021 1:37 PM CDT 03/21/2021 1:37 PM CDT us Malathi Curry MD LAB BLOOD ORDERABLES Final Res ult [facility] [address] Department [place] [address] * Differential, auto (03/21/2021 1:37 PM CDT) Neutrophil abs 6.5 1.7 - 6.5 K/cumm [facility] Imm gran abs 0.0 0.0 - 0.1 K/cumm [facility] Lymphocyte abs 1.3 0.8 - 3.3 K/cumm [facility] Monocyte abs 0.8 0.2 - 0.8 K/cumm [facility] Eosinophil abs 0.0 0.0 - 0.5 K/cumm [facility] Basophil abs 0.0 0.0 - 0.1 K/cumm [facility] Neutrophil pct 75.1 % [facility] Comment: Interpretive Data Percent cell count reference ranges are not reported, since discordance with absolute values may lead to misinterpretation of CBC data. Current Interpretive Data was last revised on 2017. Imm gran pct 0.5 % [facility] Comment: Interpretive Data Percent cell count reference ranges are not reported, since discordance with absolute values may lead to misinterpretation of CBC data. Current Interpretive Data was last revised on 2017. Lymphocyte pct 14.8 % [facility] Comment: Interpretive Data Percent cell count reference ranges are not reported, since discordance with absolute values may lead to misinterpretation of CBC data. Current Interpretive Data was last revised on 2017. Monocyte pct 9.4 % [facility] Comment: Interpretive Data Percent cell count reference ranges are not reported, since discordance with absolute values may lead to misinterpretation of CBC data. Current Interpretive Data was last revised on 2017. Eosinophil pct 0.1 % [facility] Comment: Interpretive Data Percent cell count reference ranges are not reported, since discordance with absolute values may lead to misinterpretation of CBC data. Current Interpretive Data was last revised on 2017. Basophil pct 0.1 % [facility] Comment: Interpretive Data Percent cell count reference ranges are not reported, since discordance with absolute values may lead to misinterpretation of CBC data. Current Interpretive Data was last revised on 2017. Blood 03/21/2021 1:37 PM CDT 03/21/2021 1:37 PM CDT Janel Roberts MD LAB BLOOD ORDERABLES Fin al Result Performing Organization Address City/[facility] Co de Phone Number [facility] [address] Department [employer] [place], [place] [id number] * Magnesium (03/21/2021 1:37 PM CDT) Magnesium 2.4 1.4 - 2.5 mg/dL [facility] Blood 03/21/2021 1:37 PM CDT 03/21/2021 1:37 PM CDT Malathi Curry MD LAB BLOOD ORDERABLES Final Res ult Performing Organization Address City/[facility]/ZIP Co de Phone Number [facility] [address] Department [place] [employer] [place] [address] * Renal function panel (03/21/2021 1:37 PM CDT) Sodium 135 135 - 145 mmol/L [facility] Potassium, pl 4.4 3.3 - 4.9 mmol/L [facility] Chloride 100 97 - 110 mmol/L [facility] CO2 23 22 - 32 mmol/L [facility] Anion gap 12 2 - 15 mmol/L [facility] BUN 10 8 - 25 mg/dL [facility] Creatinine 1.08 0.80 - 1.30 mg/dL [facility] Glucose 145 70 - 199 mg/dL [facility] Comment: Interpretive Data Fasting glucose >/= 126 mg/dl is diagnostic for diabetes. ?? Fasting is defined as no caloric intake for at least 8 hours. Fasting glucose between 100 mg/dl to 125 mg/dl is diagnostic of prediabetes. In a patient with classic symptoms of hyperglycemia or hyperglycemic crisis, a random glucose >/= 200 mg/dl is diagnostic for diabetes. In the absence of unequivocal hyperglycemia, results should be confirmed by repeat testing. The classification and Diagnosis of Diabetes Diabetes Care 2017;40 (Suppl. 1):S11. Current interpretive data was last revised 2017. Calcium 8.6 8.5 - 10.3 mg/dL [facility] Phosphorus, pl 3.4 2.3 - 4.5 mg/dL [facility] Albumin 3.9 3.5 - 5.0 g/dL [facility] Blood 03/21/2021 1:37 PM CDT 03/21/2021 1:37 PM CDT us Malathi Curry MD LAB BLOOD ORDERABLES Final Res ult [facility] [address] Department [place] [address] * (ABNORMAL) CBC with auto differential (03/21/2021 1:37 PM CDT) WBC 8.6 3.8 - 9.9 K/cumm [facility] Hgb 8.5(L) 13.0 - 17.5 g/dL [facility] Hct 25.1(L) 38.9 - 50.3 % [facility] Plt 110(L) 150 - 400 K/cumm [facility] MPV 8.8(L) 9.1 - 12.3 fL [facility] RBC 2.58(L) 4.30 - 5.80 M/cumm [facility] MCV 97.3(H) 81.3 - 96.4 fL [facility] MCH 32.9 27.1 - 33.3 pg [facility] MCHC 33.9 32.3 - 35.7 g/dL [facility] RDW CV 13.2 11.1 - 14.9 % [facility] RDW SD 47.1 35.7 - 48.1 fL [facility] NRBC abs 0.00 0.00 - 0.01 K/cumm [facility] Blood 03/21/2021 1:37 PM CDT 03/21/2021 1:37 PM CDT Janel Roberts MD LAB BLOOD ORDERABLES Fin al Result Performing Organization Address [facility] Co de Phone Number [facility] [address] [employer] [place] [address] * POCT glucose (03/21/2021 11:54 AM CDT) Glucose, POC 107 70 - 199 mg/dL [facility] Blood 03/21/2021 11:5 4 AM CDT 03/21/2021 11:54 AM CDT Wilbur Elliott MD LAB POCT ORDERABLES - DEVICE Fin al Result Performing Organization Address [facility] Co de Phone Number [facility] [address] [employer] [place] [address] * POCT glucose (03/21/2021 7:56 AM CDT) Glucose, POC 121 70 - 199 mg/dL [facility] Blood 03/21/2021 7:56 AM CDT 03/21/2021 7:56 AM CDT Wilbur Elliott MD LAB POCT ORDERABLES - DEVICE Fin al Result Performing Organization Address [facility] Co de Phone Number [facility] [address] Department [place] [address] * XR Chest 1 View - Portable - in AM (03/21/2021 5:29 AM CDT) Anatomical Region Laterality Modality Body, Chest N/A Computed Radiogr aphy 03/21/2021 8:10 AM CDT Impressions 03/21/2021 8:10 AM CDT Extubation. ??No pneumothorax or failure. Electronically signed by: Neftali Kaminski M.D. Narrative 03/21/2021 8:10 AM CDT EXAMINATION: XR CHEST 1 VIEW DATE: 03/21/2021 4:20 AM HISTORY: 55-year-old man follow-up cardiac surgery FINDINGS:Comparison is made with study the previous day. ??Patient is now extubated. ??Boise-Belle catheter remains in place. ??Left thoracostomy tube remains in place. ??There is no failure or pneumothorax. ??COPD. Procedure Note Neftali Kaminski MD - 03/21/2021 EXAMINATION: XR CHEST 1 VIEW DATE: 03/21/2021 4:20 AM HISTORY: 55-year-old man follow-up cardiac surgery FINDINGS:Comparison is made with study the previous day. Patient is now extubated. Bo[place]-Belle catheter remains in place. Left thoracostomy tube remains in place. There is no failure or pneumothorax. COPD. IMPRESSION: Extubation. No pneumothorax or failure. Electronically signed by: Neftali Kaminski M.D. Malathi Curry MD IMG XR PROCEDURES Final Result * POCT glucose (03/21/2021 4:02 AM CDT) Glucose, POC 115 70 - 199 mg/dL [facility] Blood 03/21/2021 4:02 AM CDT 03/21/2021 4:02 AM CDT Wilbur Elliott MD LAB POCT ORDERABLES - DEVICE Fin al Result [facility] [address] Department [place] [address] * eGFR (03/21/2021 3:59 AM CDT) eGFR 63 mL/min/1.7 3 m2 [facility] Comment: Interpretive Data Reference Interval Normal ?>/= 90 mL/min/1.73m2 Mildly decreased* ? 60 - 89 mL/min/1.73m2 Mildly to moderately decreased ?45 - 59 mL/min/1.73m2 Moderately to severely decreased ??30 - 44 mL/min/1.73m2 Severely decreased ?15 - 29 mL/min/1.73m2 Kidney Failure ?< 15 ??mL/min/1.73m2 *Relative to young adult level Estimated glomerular filtration rate is determined by the CKD-EPI equation recommended by the National Kidney Foundation (KDIGO 2012 Clinical Practice Guideline for the Evaluation and Management of Chronic Kidney Disease. Kidney Intnl Suppl May 2012;3:1). The CKD-EPI equation should not be used for patients with unstable renal function and has not been validated in children and those over 70. Current interpretive data was last reviewed 2020 Blood 03/21/2021 3:59 AM CDT 03/21/2021 4:18 AM CDT us Malathi Curry MD LAB BLOOD ORDERABLES Final Res ult [facility] [address] Department [place] [address] * Differential, auto (03/21/2021 3:59 AM CDT) Neutrophil abs 5.8 1.7 - 6.5 K/cumm [facility] Imm gran abs 0.0 0.0 - 0.1 K/cumm [facility] Lymphocyte abs 1.0 0.8 - 3.3 K/cumm [facility] Monocyte abs 0.6 0.2 - 0.8 K/cumm [facility] Eosinophil abs 0.0 0.0 - 0.5 K/cumm [facility] Basophil abs 0.0 0.0 - 0.1 K/cumm [facility] Neutrophil pct 77.9 % [facility] Comment: Interpretive Data Percent cell count reference ranges are not reported, since discordance with absolute values may lead to misinterpretation of CBC data. Current Interpretive Data was last revised on 2017. Imm gran pct 0.4 % [facility] Comment: Interpretive Data Percent cell count reference ranges are not reported, since discordance with absolute values may lead to misinterpretation of CBC data. Current Interpretive Data was last revised on 2017. Lymphocyte pct 13.5 % [facility] Comment: Interpretive Data Percent cell count reference ranges are not reported, since discordance with absolute values may lead to misinterpretation of CBC data. Current Interpretive Data was last revised on 2017. Monocyte pct 8.1 % [facility] Comment: Interpretive Data Percent cell count reference ranges are not reported, since discordance with absolute values may lead to misinterpretation of CBC data. Current Interpretive Data was last revised on 2017. Eosinophil pct 0.0 % [facility] Comment: Interpretive Data Percent cell count reference ranges are not reported, since discordance with absolute values may lead to misinterpretation of CBC data. Current Interpretive Data was last revised on 2017. Basophil pct 0.1 % [facility] Comment: Interpretive Data Percent cell count reference ranges are not reported, since discordance with absolute values may lead to misinterpretation of CBC data. Current Interpretive Data was last revised on 2017. Blood 03/21/2021 3:59 AM CDT 03/21/2021 4:18 AM CDT us Malathi Curry MD LAB BLOOD ORDERABLES Final Res ult [facility] [address] Department [place] [address] * Oxyhemoglobin, central venous (03/21/2021 3:59 AM CDT) Oxyhemoglobin, CV 70.2 % [facility] Comment: Interpretive Data No reference range established. Current interpretive data was last revised 2019. Blood 03/21/2021 3:59 AM CDT 03/21/2021 4:15 AM CDT Malathi Curry MD LAB BLOOD ORDERABLES Final Res ult Performing Organization Address [facility] Co de Phone Number [facility] [address] [facility] [employer] [place] [address] * Magnesium (03/21/2021 3:59 AM CDT) Pathologist [facility] Magnesium 1.9 1.4 - 2.5 mg/dL [facility] Blood 03/21/2021 3:59 AM CDT 03/21/2021 4:18 AM CDT Malathi Curry MD LAB BLOOD ORDERABLES Final Res ult Performing Organization Address [facility] de Phone Number [facility] [address] [place] [address] * Basic metabolic panel (03/21/2021 3:59 AM CDT) Pathologist [facility] Sodium 139 135 - 145 mmol/L [facility] Potassium, pl 4.8 3.3 - 4.9 mmol/L [facility] Chloride 107 97 - 110 mmol/L [facility] CO2 24 22 - 32 mmol/L [facility] Anion gap 8 2 - 15 mmol/L [facility] BUN 12 8 - 25 mg/dL [facility] Creatinine 1.28 0.80 - 1.30 mg/dL [facility] Glucose 125 70 - 199 mg/dL [facility] Comment: Interpretive Data Fasting glucose >/= 126 mg/dl is diagnostic for diabetes. ?? Fasting is defined as no caloric intake for at least 8 hours. Fasting glucose between 100 mg/dl to 125 mg/dl is diagnostic of prediabetes. In a patient with classic symptoms of hyperglycemia or hyperglycemic crisis, a random glucose >/= 200 mg/dl is diagnostic for diabetes. In the absence of unequivocal hyperglycemia, results should be confirmed by repeat testing. The classification and Diagnosis of Diabetes Diabetes Care 2017;40 (Suppl. 1):S11. Current interpretive data was last revised 2017. Calcium 8.6 8.5 - 10.3 mg/dL [facility] Blood 03/21/2021 3:59 AM CDT 03/21/2021 4:18 AM CDT Malathi Curry MD LAB BLOOD ORDERABLES Final Res ult [facility] [address] Department [place] [address] * (ABNORMAL) CBC with auto differential (03/21/2021 3:59 AM CDT) WBC 7.4 3.8 - 9.9 K/cumm [facility] Hgb 8.0(L) 13.0 - 17.5 g/dL [facility] Hct 23.9(L) 38.9 - 50.3 % [facility] Plt 103(L) 150 - 400 K/cumm [facility] MPV 8.7(L) 9.1 - 12.[address] [facility] RBC 2.46(L) 4.30 - 5.80 M/cumm [facility] MCV 97.2(H) 81.3 - 96.4 fL [facility] MCH 32.5 27.1 - 33.3 pg [facility] MCHC 33.5 32.3 - 35.7 g/dL [facility] RDW CV 12.8 11.1 - 14.9 % [facility] RDW SD 44.9 35.7 - 48.1 fL [facility] NRBC abs 0.00 0.00 - 0.01 K/cumm [facility] Blood 03/21/2021 3:59 AM CDT 03/21/2021 4:18 AM CDT Malathi Curry MD LAB BLOOD ORDERABLES Final Res ult [facility] [address] [facility] [employer] [place] [address] * POCT glucose (03/21/2021 1:52 AM CDT) Glucose, POC 121 70 - 199 mg/dL [facility] Blood 03/21/2021 1:52 AM CDT 03/21/2021 1:52 AM CDT Wilbur Elliott MD LAB POCT ORDERABLES - DEVICE Fin al Result Performing Organization Address [facility] de Phone Number [facility] [address] [place] [address] * POCT glucose (03/21/2021 12:02 AM CDT) Glucose, POC 142 70 - 199 mg/dL [facility] Blood 03/21/2021 12:0 2 AM CDT 03/21/2021 12:02 AM CDT Wilbur Elliott MD LAB POCT ORDERABLES - DEVICE Fin al Result Performing Organization Address [facility] de Phone Number [facility] [address] [facility] [employer] [place] [address] * Critical Care (03/20/2021 10:10 PM CDT) Narrative Trudi Lamb MD - 03/20/2021 10:10 PM CDT Trudi Lamb MD ? 03/21/2021 ??8:16 AM Critical Care Performed by: Trudi Lamb MD Authorized by: Trudi Lamb MD CRITICAL CARE: ??Team: ??CHNE ??Shift: ??PM ??Level of Billing: ??Critical Care ??My time spent with this patient was 31 minutes: Critical Provider Statement: I have seen and examined the patient on this day of service. I have reviewed and confirmed the history, physical exam, laboratory and radiologic data as documented in the signed ICU note. I have reviewed and discussed my treatment plan with the ICU team and other medical/customs consultant staff, making frequent assessments and decisions regarding this patient's complex medical care. Critical Care time was exclusive of time spent performing separately billed procedures, treating other patients, and teaching. This time was in addition to and separate from critical care provided by other practitioners in my group on this day of service. Critical Care was necessary to treat or prevent imminent or life-threatening deterioration of the following conditions: ? Cardiogenic shock and Hypotension ??This time was spent by me doing the following: ? Acute pain control ?? Initiation/active titration of vasoactive medications and Initiation/active titration of inotropic medications ?? Invasive ventilator management, reassessment, and titration and Active and frequent reassessment of respiratory status and oxygen requirements ?? I spent time reviewing and interpreting data from bedside monitors, laboratory results, and imaging, I spent time discussing the management of this critically ill patient with consultants and the medical staff and I spent time documenting in the medical record Trudi Lamb MD IN CLINIC/BEDSIDE [facility] Final Result * POCT glucose (03/20/2021 9:46 PM CDT) Glucose, POC 125 70 - 199 mg/dL [facility] Blood 03/20/2021 9:46 PM CDT 03/20/2021 9:46 PM CDT Wilbur Elliott MD LAB POCT ORDERABLES - DEVICE Fin al Result [facility] [address] Department [place] [address] * (ABNORMAL) Blood gas, arterial (03/20/2021 9:39 PM CDT) pH, Art 7.38 7.35 - 7.45 [facility] PCO2, Arterial 38 35 - 45 mmHg [facility] PO2, Arterial 126(H) 83 - 108 mmHg [facility] HCO3 Art (Calculated) 22 20 - 30 mmol/L [facility] BE, art -3 mmol/L [facility] Comment: Interpretive Data No Reference Range Established Current Interpretive Data was last revised on 2017 O2 Sat Art (Measured) 98(H) 90 - 95 % [facility] Blood 03/20/2021 9:39 PM CDT 03/20/2021 9:49 PM CDT Antelmo Proctor MD LAB BLOOD ORDERABLES Final R esult Performing Organization Address [facility] Co de Phone Number [facility] [address] [place] [place] [address] * POCT glucose (03/20/2021 9:01 PM CDT) Glucose, POC 120 70 - 199 mg/dL [facility] Blood 03/20/2021 9:01 PM CDT 03/20/2021 9:01 PM CDT Wilbur Elliott MD LAB POCT ORDERABLES - DEVICE Fin al Result Performing Organization Address [facility] de Phone Number [facility] [address] [employer] [place] [address] * POCT glucose (03/20/2021 8:08 PM CDT) Glucose, POC 123 70 - 199 mg/dL [facility] Blood 03/20/2021 8:08 PM CDT 03/20/2021 8:08 PM CDT Wilbur Elliott MD LAB POCT ORDERABLES - DEVICE Fin al Result Performing Organization Address [facility] de Phone Number [facility] [address] [facility] [employer] [place] [address] * eGFR (03/20/2021 8:04 PM CDT) eGFR 63 mL/min/1.7 3 m2 [facility] Comment: Interpretive Data Reference Interval Normal ?>/= 90 mL/min/1.73m2 Mildly decreased* ? 60 - 89 mL/min/1.73m2 Mildly to moderately decreased ?45 - 59 mL/min/1.73m2 Moderately to severely decreased ??30 - 44 mL/min/1.73m2 Severely decreased ?15 - 29 mL/min/1.73m2 Kidney Failure ?< 15 ??mL/min/1.73m2 *Relative to young adult level Estimated glomerular filtration rate is determined by the CKD-EPI equation recommended by the National Kidney Foundation (KDIGO 2012 Clinical Practice Guideline for the Evaluation and Management of Chronic Kidney Disease. Kidney Intnl Suppl May 2012;3:1). The CKD-EPI equation should not be used for patients with unstable renal function and has not been validated in children and those over 70. Current interpretive data was last reviewed 2020 Blood 03/20/2021 8:04 PM CDT 03/20/2021 8:19 PM CDT us Malathi Curry MD LAB BLOOD ORDERABLES Final Res ult Performing Organization Address [facility] de Phone Number [facility] [address] Department [place] [address] * (ABNORMAL) Calcium, ionized (03/20/2021 8:04 PM CDT) Ca, ionized, bld 5.61(H) 4.60 - 5.20 mg/dL [facility] Ca, ionized, bld, calc 5.54(H) 4.60 - 5.20 mg/dL [facility] Blood 03/20/2021 8:04 PM CDT 03/20/2021 8:18 PM CDT Antelmo Proctor MD LAB BLOOD ORDERABLES Final R esult Performing Organization Address [facility] Co de Phone Number [facility]ST[facility] CARRENO [address] Department [place] [address] * (ABNORMAL) CBC without differential (03/20/2021 8:04 PM CDT) WBC 11.7(H) 3.8 - 9.9 K/cumm [facility] Hgb 9.1(L) 13.0 - 17.5 g/dL [facility] Hct 26.2(L) 38.9 - 50.3 % [facility] Plt 112(L) 150 - 400 K/cumm [facility] MPV 8.5(L) 9.1 - 12.3 fL [facility] RBC 2.73(L) 4.30 - 5.80 M/cumm [facility] MCV 96.0 81.3 - 96.4 fL [facility] MCH 33.3 27.1 - 33.3 pg [facility] MCHC 34.7 32.3 - 35.7 g/dL [facility] RDW CV 13.0 11.1 - 14.9 % [facility] RDW SD 45.3 35.7 - 48.1 fL [facility] NRBC abs 0.00 0.00 - 0.01 K/cumm [facility] Blood 03/20/2021 8:04 PM CDT 03/20/2021 8:19 PM CDT us Malathi Curry MD LAB BLOOD ORDERABLES Final Res ult [facility] C[facility]ENO [address] Department [place] [address] * (ABNORMAL) Blood gas, arterial (03/20/2021 8:04 PM CDT) pH, Art 7.38 7.35 - 7.45 [facility] PCO2, Arterial 38 35 - 45 mmHg [facility] PO2, Arterial 79(L) 83 - 108 mmHg [facility] HCO3 Art (Calculated) 22 20 - 30 mmol/L [facility] BE, art -2 mmol/L [facility] Comment: Interpretive Data No Reference Range Established Current Interpretive Data was last revised on 2017 O2 Sat Art (Measured) 94 90 - 95 % [facility] Blood 03/20/2021 8:04 PM CDT 03/20/2021 8:18 PM CDT Malathi Curry MD LAB BLOOD ORDERABLES Final Res ult Performing Organization Address City/[facility] [place] [address] [address] Department [place] [address] * (ABNORMAL) Basic metabolic panel (03/20/2021 8:04 PM CDT) Sodium 139 135 - 145 mmol/L [facility] Potassium, pl 5.4(H) 3.3 - 4.9 mmol/L [facility] Chloride 107 97 - 110 mmol/L [facility] CO2 22 22 - 32 mmol/L [facility] Anion gap 10 2 - 15 mmol/L [facility] BUN 12 8 - 25 mg/dL [facility] Creatinine 1.28 0.80 - 1.30 mg/dL [facility] Glucose 124 70 - 199 mg/dL [facility] Comment: Interpretive Data Fasting glucose >/= 126 mg/dl is diagnostic for diabetes. ?? Fasting is defined as no caloric intake for at least 8 hours. Fasting glucose between 100 mg/dl to 125 mg/dl is diagnostic of prediabetes. In a patient with classic symptoms of hyperglycemia or hyperglycemic crisis, a random glucose >/= 200 mg/dl is diagnostic for diabetes. In the absence of unequivocal hyperglycemia, results should be confirmed by repeat testing. The classification and Diagnosis of Diabetes Diabetes Care 2017;40 (Suppl. 1):S11. Current interpretive data was last revised 2017. Calcium 10.0 8.5 - 10.3 mg/dL [facility] Blood 03/20/2021 8:04 PM CDT 03/20/2021 8:19 PM CDT Result [facility] Malathi Curry MD LAB BLOOD ORDERABLES Final Res ult Performing Organization Address City/[facility]/ZIP Co de Phone Number [facility]STINA CARRENO [address] Department [place] [employer] [place] [address] * POCT glucose (03/20/2021 6:15 PM CDT) Glucose, POC 127 70 - 199 mg/dL [facility] Blood 03/20/2021 6:15 PM CDT 03/20/2021 6:15 PM CDT Wilbur Elliott MD LAB POCT ORDERABLES - DEVICE Fin al Result Performing Organization Address [facility] de Phone Number [facility]STINA [address] [place] [employer] [place] [address] * (ABNORMAL) Blood gas, arterial (03/20/2021 5:38 PM CDT) pH, Art 7.34(L) 7.35 - 7.45 [facility] PCO2, Arterial 42 35 - 45 mmHg [facility] PO2, Arterial 107 83 - 108 mmHg [facility] HCO3 Art (Calculated) 22 20 - 30 mmol/L [facility] BE, art -2 mmol/L [facility] Comment: Interpretive Data No Reference Range Established Current Interpretive Data was last revised on 2017 O2 Sat Art (Measured) 97(H) 90 - 95 % [facility] Blood 03/20/2021 5:38 PM CDT 03/20/2021 5:42 PM CDT Malathi Curry MD LAB BLOOD ORDERABLES Final Res ult Performing Organization Address [facility] de Phone Number CHRISTINA [address] [place] [employer] [place] [address] * POCT glucose (03/20/2021 5:35 PM CDT) Glucose, POC 136 70 - 199 mg/dL [facility] Blood 03/20/2021 5:35 PM CDT 03/20/2021 5:35 PM CDT Wilbur Elliott MD LAB POCT ORDERABLES - DEVICE Fin al Result Performing Organization Address City/[facility]/ZIP Co de Phone Number [facility]STINA CARRENO [address] Department [place] [address] * ECG 12 lead (03/20/2021 4:42 PM CDT) 03/20/2021 4:42 PM CDT Narrative [facility] - 03/25/2021 1:01 PM CDT Vent Rate: 90 bpm RR Interval: 662 msec CA Interval: 127 msec QRS Duration: 94 msec QT Interval: 379 msec QTC Interval: 427 msec P-R-T [place]: 79 - 81 - -84 degrees SINUS RHYTHM SEPTAL MYOCARDIAL INFARCTION , PROBABLY OLD [40+ ms Q WAVE IN V1/V2] MODERATE T-WAVE ABNORMALITY, CONSIDER INFERIOR ISCHEMIA ??[-0.1+ mV T-WAVE IN II/aVF] ABNORMAL ECG Electronically Signed By: Haroldo Broussard MD, [facility] Malathi Curry MD ECG ORDERABLES Edited Result - Final Performing Organization Address [facility] de Phone Number [facility] [employer] [facility] * XR Chest 1 View - Portable (03/20/2021 4:42 PM CDT) Anatomical Region Laterality Modality Body, Chest N/A Computed Radiogr aphy 03/21/2021 7:56 AM CDT Impressions 03/21/2021 7:56 AM CDT Expected postsurgical changes. ??No pneumothorax or failure. Electronically signed by: Neftali Kaminski M.D. Narrative 03/21/2021 7:56 AM CDT EXAMINATION: XR CHEST 1 VIEW DATE: 03/20/2021 4:35 PM HISTORY: 55-year-old man cardiac surgery follow-up FINDINGS:Compared with the preoperative study of 4 days earlier, postsurgical changes now evident within the heart and mediastinum with normal heart size. ??Endotracheal tube nasogastric tube, [place]-Belle catheter left thoracostomy tube and mediastinal drain in satisfactory position. ??No pneumothorax or failure. ??COPD suspected. Procedure Note Neftali Kaminski MD - 03/21/2021 EXAMINATION: XR CHEST 1 VIEW DATE: 03/20/2021 4:35 PM HISTORY: 55-year-old man cardiac surgery follow-up FINDINGS:Compared with the preoperative study of 4 days earlier, postsurgical changes now evident within the heart and mediastinum with normal heart size. Endotracheal tube nasogastric tube, [place]-Belle catheter left thoracostomy tube and mediastinal drain in satisfactory position. No pneumothorax or failure. COPD suspected. IMPRESSION: Expected postsurgical changes. No pneumothorax or failure. Electronically signed by: Neftali Kaminski M.D. Malathi Curry MD IMG XR PROCEDURES Final Result * (ABNORMAL) Blood gas, arterial (03/20/2021 4:36 PM CDT) pH, Art 7.30(L) 7.35 - 7.45 [facility] PCO2, Arterial 48(H) 35 - 45 mmHg [facility] PO2, Arterial 451(H) 83 - 108 mmHg [facility] HCO3 Art (Calculated) 22 20 - 30 mmol/L [facility] BE, art -2 mmol/L [facility] Comment: Interpretive Data No Reference Range Established Current Interpretive Data was last revised on 2017 O2 Sat Art (Measured) 99(H) 90 - 95 % [facility] Blood 03/20/2021 4:36 PM CDT 03/20/2021 4:47 PM CDT Malathi Curry MD LAB BLOOD ORDERABLES Final Res ult [facility] [address] Department of Laboratories [place], [place] [id number] * eGFR (03/20/2021 4:34 PM CDT) eGFR 66 mL/min/1.7 3 m2 [facility] Comment: Interpretive Data Reference Interval Normal ?>/= 90 mL/min/1.73m2 Mildly decreased* ? 60 - 89 mL/min/1.73m2 Mildly to moderately decreased ?45 - 59 mL/min/1.73m2 Moderately to severely decreased ??30 - 44 mL/min/1.73m2 Severely decreased ?15 - 29 mL/min/1.73m2 Kidney Failure ?< 15 ??mL/min/1.73m2 *Relative to young adult level Estimated glomerular filtration rate is determined by the CKD-EPI equation recommended by the National Kidney Foundation (KDIGO 2012 Clinical Practice Guideline for the Evaluation and Management of Chronic Kidney Disease. Kidney Intnl Suppl May 2012;3:1). The CKD-EPI equation should not be used for patients with unstable renal function and has not been validated in children and those over 70. Current interpretive data was last reviewed 2020 Blood 03/20/2021 4:34 PM CDT 03/20/2021 4:47 PM CDT Malathi Curry MD LAB BLOOD ORDERABLES Final Res ult Performing Organization Address [facility] Co de Phone Number CHRISTINA [address] [place] [address] * aPTT (03/20/2021 4:34 PM CDT) aPTT 29 27 - 37 sec [facility]INA CARRENO Comment: Interpretive Data Therapeutic heparin range: 60.0 - 94.0 seconds. Based on correlation with therapeutic heparin activity range of 0.3-0.7 Units/mL. Current interpretive data was last revised on 2020. Blood 03/20/2021 4:34 PM CDT 03/20/2021 4:47 PM CDT Malathi Curry MD LAB BLOOD ORDERABLES Final Res ult Performing Organization Address City/[facility]/ZIP Co de Phone Number CHRISTINA [address] [place], [place] [id number] * (ABNORMAL) Protime-INR (03/20/2021 4:34 PM CDT) PT 15.1(H) 9.5 - 13.6 sec [facility] INR 1.4(H) 0.9 - 1.2 [facility] Comment: Interpretive data Oral anticoagulant therapeutic ranges: Venous thromboembolism prophylaxis or treatment: 2.0-3.0 CARDIOLOGY Standard range: 2.0-3.0 High-intensity range: 2.5-3.5 Refer to indication-specific guidelines for appropriate target ranges for prosthetic heart valve replacement. Current interpretive data was last revised on 2019. Blood 03/20/2021 4:34 PM CDT 03/20/2021 4:47 PM CDT us Malathi Curry MD LAB BLOOD ORDERABLES Final Res ult [facility] [address] Department [place] [address] * (ABNORMAL) CBC without differential (03/20/2021 4:34 PM CDT) Pathologist [facility] WBC 12.0(H) 3.8 - 9.9 K/cumm [facility] Hgb 9.6(L) 13.0 - 17.5 g/dL [facility] Hct 28.3(L) 38.9 - 50.3 % [facility] Plt 111(L) 150 - 400 K/cumm [facility] MPV 8.3(L) 9.1 - 12.3 fL [facility] RBC 2.90(L) 4.30 - 5.80 M/cumm [facility] MCV 97.6(H) 81.3 - 96.4 fL [facility] MCH 33.1 27.1 - 33.3 pg [facility] MCHC 33.9 32.3 - 35.7 g/dL [facility] RDW CV 13.1 11.1 - 14.9 % [facility] RDW SD 46.5 35.7 - 48.1 fL [facility] NRBC abs 0.00 0.00 - 0.01 K/cumm [facility] Blood 03/20/2021 4:34 PM CDT 03/20/2021 4:47 PM CDT Malathi Curry MD LAB BLOOD ORDERABLES Final Res ult Performing Organization Address [facility] Co de Phone Number CHRISTINA CARRENO [address] [place] [employer] [place] [address] * (ABNORMAL) Calcium, ionized (03/20/2021 4:34 PM CDT) Ca, ionized, bld 4.75 4.60 - 5.20 mg/dL [facility] Ca, ionized, bld, calc 4.50(L) 4.60 - 5.20 mg/dL [facility] Blood 03/20/2021 4:34 PM CDT 03/20/2021 4:47 PM CDT Malathi Curry MD LAB BLOOD ORDERABLES Final Res ult Performing Organization Address [facility] Co de Phone Number CHRISTINA CARRENO [address] [place] [employer] [place] [address] * Magnesium (03/20/2021 4:34 PM CDT) Magnesium 2.4 1.4 - 2.5 mg/dL [facility] Blood 03/20/2021 4:34 PM CDT 03/20/2021 4:47 PM CDT Malathi Curry MD LAB BLOOD ORDERABLES Final Res ult Performing Organization Address [facility] Co de Phone Number CHRISTINA CARRENO [address] [place] [place] [address] * (ABNORMAL) Basic metabolic panel (03/20/2021 4:34 PM CDT) Sodium 140 135 - 145 mmol/L [facility] Potassium, pl 4.8 3.3 - 4.9 mmol/L [facility] Chloride 109 97 - 110 mmol/L [facility] CO2 22 22 - 32 mmol/L [facility] Anion gap 9 2 - 15 mmol/L [facility] BUN 12 8 - 25 mg/dL [facility] Creatinine 1.22 0.80 - 1.30 mg/dL [facility] Glucose 137 70 - 199 mg/dL [facility] Comment: Interpretive Data Fasting glucose >/= 126 mg/dl is diagnostic for diabetes. ?? Fasting is defined as no caloric intake for at least 8 hours. Fasting glucose between 100 mg/dl to 125 mg/dl is diagnostic of prediabetes. In a patient with classic symptoms of hyperglycemia or hyperglycemic crisis, a random glucose >/= 200 mg/dl is diagnostic for diabetes. In the absence of unequivocal hyperglycemia, results should be confirmed by repeat testing. The classification and Diagnosis of Diabetes Diabetes Care 2017;40 (Suppl. 1):S11. Current interpretive data was last revised 2017. Calcium 7.9(L) 8.5 - 10.3 mg/dL [facility] Blood 03/20/2021 4:34 PM CDT 03/20/2021 4:47 PM CDT Malathi Curry MD LAB BLOOD ORDERABLES Final Res ult Performing Organization Address City/[facility]/ZIP Co de Phone Number [facility] [address] [place], [place] [id number] * POCT glucose (03/20/2021 4:18 PM CDT) Glucose, POC 116 70 - 199 mg/dL [facility] Blood 03/20/2021 4:18 PM CDT 03/20/2021 4:18 PM CDT Wilbur Elliott MD LAB POCT ORDERABLES - DEVICE Fin al Result Performing Organization Address City/[facility] Co de Phone Number [facility] [address] [employer] [place], [place] [id number] * (ABNORMAL) POC Blood Gas and Chemistries, Arterial - (03/20/2021 3:39 PM CDT) pH, Art POC 7.36 7.35 - 7.45 [facility] pCO2, Art POC 42 35 - 45 mmHg [facility] pO2, Art POC 466(H) 83 - 108 mmHg [facility] Na, POC 135 135 - 145 mmol/L [facility] K POC 4.6 3.3 - 4.9 mmol/L [facility] Comment: Interpretive Data Unable to assess hemolysis. ??Invitro hemolysis causes falsely elevated potassium. Current Interpretive Data was last revised on 2020. Ionized Ca, POC 4.92 4.60 - 5.20 mg/dL [facility] Glucose, POC 100 70 - 199 mg/dL [facility] Lactate, POC 1.2 0.7 - 2.0 mmol/L [facility] SO2 (yovanny) arterial 97(H) 90 - 95 % [facility] Total CO2, Art POC 25 21 - 30 mmol/L [facility] BE, art, POC -2 mmol/L [facility] HCO3, Art POC 24 20 - 30 mmol/L [facility] Hct, POC 27.0(L) 38.9 - 50.3 % [facility] Total Hb, POC 9.1(L) 13.0 - 17.5 g/dL [facility] Blood 03/20/2021 3:39 PM CDT 03/20/2021 3:39 PM CDT Wilbur Elliott MD LAB POCT ORDERABLES - DEVICE Fin al Result [facility]STINA [address] Department [place] [address] * (ABNORMAL) Potassium, whole blood (03/20/2021 2:47 PM CDT) Potassium, bld 5.5(H) 3.3 - 4.9 mmol/L [facility] Comment: Interpretive Data Unable to assess hemolysis. ??Invitro hemolysis causes falsely elevated potassium. Current Interpretive Data was last revised on 2020. Blood 03/20/2021 2:47 PM CDT 03/20/2021 2:50 PM CDT Narrative [facility] - 03/20/2021 2:53 PM CDT [place] 14 [place] [phone] with results. Malathi Curry MD LAB BLOOD ORDERABLES Final Res ult Performing Organization Address [facility]/ZIP Co de Phone Number [facility]RISTINA CARRENO [address] [facility] [employer] [place] [address] * (ABNORMAL) POC Blood Gas and Chemistries, Venous - (03/20/2021 2:36 PM CDT) Pathologist [facility] K POC 6.8(C) 3.3 - 4.9 mmol/L [facility] Comment: Interpretive Data Unable to assess hemolysis. ??Invitro hemolysis causes falsely elevated potassium. Current Interpretive Data was last revised on 2020. Blood 03/20/2021 2:36 PM CDT 03/20/2021 2:36 PM CDT Wilbur Elliott MD LAB POCT ORDERABLES - DEVICE Fin al Result Performing Organization Address [facility] Co de Phone Number [facility]STINA CARRENO [address] [place] [employer] [place] [address] * (ABNORMAL) POC Blood Gas and Chemistries, Arterial - (03/20/2021 2:18 PM CDT) pH, Art POC 7.39 7.35 - 7.45 [facility] pCO2, Art POC 37 35 - 45 mmHg [facility] pO2, Art POC 246(H) 83 - 108 mmHg [facility] Na, POC 128(L) 135 - 145 mmol/L [facility] K POC 6.8(C) 3.3 - 4.9 mmol/L [facility] Comment: Interpretive Data Unable to assess hemolysis. ??Invitro hemolysis causes falsely elevated potassium. Current Interpretive Data was last revised on 2020. Ionized Ca, POC 4.24(L) 4.60 - 5.20 mg/dL [facility] Glucose, POC 121 70 - 199 mg/dL [facility] Lactate, POC 1.4 0.7 - 2.0 mmol/L [facility] SO2 (yovanny) arterial 98(H) 90 - 95 % [facility] Total CO2, Art POC 24 21 - 30 mmol/L [facility] BE, art, POC -2 mmol/L [facility] HCO3, Art POC 23 20 - 30 mmol/L [facility] Hct, POC 27.0(L) 38.9 - 50.3 % [facility] Total Hb, POC 8.9(L) 13.0 - 17.5 g/dL [facility] Blood 03/20/2021 2:18 PM CDT 03/20/2021 2:18 PM CDT Wilbur Elliott MD LAB POCT ORDERABLES - DEVICE Fin al Result Performing Organization Address [facility] Co de Phone Number CHRISTINA [address] [place] [place] [address] * (ABNORMAL) POC Blood Gas and Chemistries, Venous - (03/20/2021 2:00 PM CDT) K POC 6.7(C) 3.3 - 4.9 mmol/L [facility] Comment: Interpretive Data Unable to assess hemolysis. ??Invitro hemolysis causes falsely elevated potassium. Current Interpretive Data was last revised on 2020. Blood 03/20/2021 2:00 PM CDT 03/20/2021 2:00 PM CDT Result [facility] Wilbur Elliott MD LAB POCT ORDERABLES - DEVICE Fin al Result Performing Organization Address [facility] Co de Phone Number CHRISTINA CARRENO [address] [employer] [place], [place] [id number] * Platelet count (03/20/2021 1:58 PM CDT) Plt 159 150 - 400 K/cumm [facility] Blood 03/20/2021 1:58 PM CDT 03/20/2021 2:03 PM CDT Narrative [facility] - 03/20/2021 2:06 PM CDT Intra-Op Platelet Count. Please call OR14 @ #[phone] with results. Thank you! Malathi Curry MD LAB BLOOD ORDERABLES Final Res ult [facility]STINA CARRENO [address] [employer] [place] [address] * (ABNORMAL) POC Blood Gas and Chemistries, Arterial - (03/20/2021 1:35 PM CDT) pH, Art POC 7.37 7.35 - 7.45 [facility] pCO2, Art POC 42 35 - 45 mmHg [facility] pO2, Art POC 423(H) 83 - 108 mmHg [facility] Na, POC 128(L) 135 - 145 mmol/L [facility] K POC 6.3(C) 3.3 - 4.9 mmol/L [facility] Comment: Interpretive Data Unable to assess hemolysis. ??Invitro hemolysis causes falsely elevated potassium. Current Interpretive Data was last revised on 2020. Ionized Ca, POC 4.09(L) 4.60 - 5.20 mg/dL [facility] Glucose, POC 118 70 - 199 mg/dL [facility] Lactate, POC 0.9 0.7 - 2.0 mmol/L [facility] SO2 (yovanny) arterial 98(H) 90 - 95 % [facility] Total CO2, Art POC 26 21 - 30 mmol/L [facility] BE, art, POC -1 mmol/L [facility] HCO3, Art POC 24 20 - 30 mmol/L [facility] Hct, POC 26.0(L) 38.9 - 50.3 % [facility] Total Hb, POC 8.8(L) 13.0 - 17.5 g/dL [facility] Blood 03/20/2021 1:35 PM CDT 03/20/2021 1:35 PM CDT Wilbur Elliott MD LAB POCT ORDERABLES - DEVICE Fin al Result CHRISTINA CARRENO [address] Department [place] [employer] [place] [address] * (ABNORMAL) POC Blood Gas and Chemistries, Arterial - (03/20/2021 12:07 PM CDT) pH, Art POC 7.46(H) 7.35 - 7.45 [facility] pCO2, Art POC 31(L) 35 - 45 mmHg [facility] pO2, Art POC >500(H) 83 - 108 mmHg [facility] Na, POC 132(L) 135 - 145 mmol/L [facility] K POC 4.8 3.3 - 4.9 mmol/L [facility] Comment: Interpretive Data Unable to assess hemolysis. ??Invitro hemolysis causes falsely elevated potassium. Current Interpretive Data was last revised on 2020. Ionized Ca, POC 4.49(L) 4.60 - 5.20 mg/dL [facility] Glucose, POC 126 70 - 199 mg/dL [facility] Lactate, POC 0.6(L) 0.7 - 2.0 mmol/L [facility] SO2 (yovanny) arterial 98(H) 90 - 95 % [facility] Total CO2, Art POC 23 21 - 30 mmol/L [facility] BE, art, POC -1 mmol/L [facility] HCO3, Art POC 24 20 - 30 mmol/L [facility] Hct, POC 37.0(L) 38.9 - 50.3 % [facility] Total Hb, POC 12.3(L) 13.0 - 17.5 g/dL [facility] Blood 03/20/2021 12:0 7 PM CDT 03/20/2021 12:07 PM CDT Wilbur Elliott MD LAB POCT ORDERABLES - DEVICE Fin al Result [facility]STINA [address] Department [place] [address] * (ABNORMAL) aPTT (03/20/2021 6:25 AM CDT) aPTT 74(H) 27 - 37 sec [facility] Comment: Interpretive Data Therapeutic heparin range: 60.0 - 94.0 seconds. Based on correlation with therapeutic heparin activity range of 0.3-0.7 Units/mL. Current interpretive data was last revised on 2020. Blood 03/20/2021 6:25 AM CDT 03/20/2021 7:50 AM CDT Wilbur Elliott MD LAB BLOOD ORDERABLES Final Resul t [facility]STINA CARRENO [address] Department [place] [address] * (ABNORMAL) CBC without differential (03/20/2021 6:25 AM CDT) WBC 5.7 3.8 - 9.9 K/cumm [facility] Hgb 13.3 13.0 - 17.5 g/dL [facility] Hct 43.4 38.9 - 50.3 % [facility] Plt 190 150 - 400 K/cumm [facility] MPV 8.3(L) 9.1 - 12.3 fL [facility] RBC 4.05(L) 4.30 - 5.80 M/cumm [facility] MCV 107.2(H) 81.3 - 96.4 fL [facility] Comment:Sample Specimen was short MCH 32.8 27.1 - 33.3 pg [facility] MCHC 30.6(L) 32.3 - 35.7 g/dL [facility] RDW CV 13.4 11.1 - 14.9 % [facility] RDW SD 53.1(H) 35.7 - 48.1 fL [facility] NRBC abs 0.00 0.00 - 0.01 K/cumm [facility] Blood 03/20/2021 6:25 AM CDT 03/20/2021 7:50 AM CDT Narrative [facility] - 03/20/2021 8:03 AM CDT Until heparin is discontinued. Malathi Curry MD LAB BLOOD ORDERABLES Final Res ult [facility]STINA CARRENO [address] Department [place] [address] * Type and screen (03/19/2021 5:29 PM CDT) ABO Rh A Positive [facility] Viviana, indirect Negative [facility] Blood 03/19/2021 5:29 PM CDT 03/19/2021 6:12 PM CDT Narrative [facility] - 03/19/2021 7:26 PM CDT Has the patient had Daratumumab or Isatuximab in the past 6 months?->Unknown Stevie Carver NP LAB BLOOD BANK TEST ORDER MOOKIE Final Result Performing Organization Address [facility] Co de Phone Number CHRISTINA CARRENO [address] [employer] [place] [id number] * Prepare RBC: 4 Units (03/19/2021 4:17 PM CDT) [facility] Product code [id number] [facility] Unit Number [id number] 6-3 [facility] Product Blood Type APOS [facility]ERNER [facility] Dispense Status RETURNED [facility] Product code [id number] [facility]ERNER [facility] Unit Number [id number] 7-8 [facility] Product Blood Type APOS CERNER CH Dispense Status RETURNED [facility] Product code [id number] [facility]ERNER [facility] Unit Number [id number] 5-Z [facility] Product Blood Type APOS CERNER CH Dispense Status RETURNED [facility] Product code [id number] [facility]ERNER [facility] Unit Number [id number] 5-M [facility] Product Blood Type APOS CERNER CH Dispense Status RETURNED [facility] Blood 03/19/2021 4:17 PM CDT Narrative [facility] - 03/23/2021 8:27 AM CDT Specify Procedure:->CABG 03/20 Are special requirements needed? (all products are leukoreduced)->No Date required:-[id number] LRRBC # of [id number] Reasons:-Hold for procedure (specify procedure)} Stevie Carver NP BLOOD BANK PRODUCT ORDERA BLES Final Result Performing Organization Address [facility] Co de Phone Number CHRISTINA CARRENO [address] [place] [place] [address] * (ABNORMAL) aPTT (03/19/2021 5:42 AM CDT) aPTT 66(H) 27 - 37 sec [facility] Comment: Interpretive Data Therapeutic heparin range: 60.0 - 94.0 seconds. Based on correlation with therapeutic heparin activity range of 0.3-0.7 Units/mL. Current interpretive data was last revised on 2020. Blood 03/19/2021 5:42 AM CDT 03/19/2021 5:42 AM CDT Wilbur Elliott MD LAB BLOOD ORDERABLES Final Resul t [facility] [address] Department of [place] [address] * (ABNORMAL) CBC without differential (03/19/2021 5:30 AM CDT) WBC 6.4 3.8 - 9.9 K/cumm [facility] Hgb 13.8 13.0 - 17.5 g/dL [facility] Hct 42.1 38.9 - 50.3 % [facility] Plt 227 150 - 400 K/cumm [facility] MPV 8.1(L) 9.1 - 12.3 fL [facility] RBC 4.24(L) 4.30 - 5.80 M/cumm [facility] MCV 99.3(H) 81.3 - 96.4 fL [facility] MCH 32.5 27.1 - 33.3 pg [facility] MCHC 32.8 32.3 - 35.7 g/dL [facility] RDW CV 13.4 11.1 - 14.9 % [facility] RDW SD 49.1(H) 35.7 - 48.1 fL [facility] NRBC abs 0.00 0.00 - 0.01 K/cumm [facility] Blood 03/19/2021 5:30 AM CDT 03/19/2021 5:43 AM CDT Narrative [facility] - 03/19/2021 5:55 AM CDT Until heparin is discontinued. Malathi Curry MD LAB BLOOD ORDERABLES Final Res ult Performing Organization Address [facility] Co de Phone Number CHRISTINA CARRENO [address] [facility] [employer] [place] [phone] * (ABNORMAL) aPTT (03/18/2021 6:30 PM CDT) aPTT 61(H) 27 - 37 sec CHRISTINA CARRENO Comment: Interpretive Data Therapeutic heparin range: 60.0 - 94.0 seconds. Based on correlation with therapeutic heparin activity range of 0.3-0.7 Units/mL. Current interpretive data was last revised on 2020. Blood 03/18/2021 6:30 PM CDT 03/18/2021 6:33 PM CDT Wilbur Elliott MD LAB BLOOD ORDERABLES Final Resul t Performing Organization Address [facility] Co de Phone Number CHRISTINA CARRENO [address] [place] [address] * TRANSTHORACIC ECHO (TTE) COMPLETE W DOPPLER/CF WO CONTRAST (03/18/2021 3:30 PM CDT) Anatomical Region Laterality Modality Ultrasound 03/18/2021 3:06 PM CDT Narrative 03/18/2021 4:57 PM CDT [address] [address] Echocardiogram Report Patient Name: JEANIE CALI : 1965 Study Date: 03/18/2021 3:06:13 PM Gender: M Tech: MB Location: [id number] Ref.Provider: STEVIE CARVER Height(Cm): 170 BSA: 1.76 Weight(Kg): 65.3 Heart Rate: 101 BP: 119/88 Quality: Good Order Provider: STEVIE CARVER Procedures: Echocardiographic Report: Transthoracic echocardiogram with complete 2D, M-Mode, and color Doppler examination. Indications: Pre-Op Evaluation. Measurements: 2D/M Mode ?Doppler ? Measurement ?Value ?Normal Range ? Measurement ?Value ?Normal Range ? EF Teich 2D ?56.4 ? [ 55.0 - 70.0 ] percent ?STEPHANIE Vmax ? 2.82 ? [ 2.00 - 4.00 ] cm2 ? LVIDd 2D ? 3.61 ? [ 4.20 - 5.90 ] cm ? AV Mean PG ? 3 ?[ 2 - 4 ] mmHg ? LVIDs 2D ? 2.57 ? [ 2.30 - 3.90 ] cm ? AV Peak Surinder ?1.08 ? [ 1.00 - 1.70 ] m/s ? LVPWd 2D ? 0.89 ? [ 0.60 - 1.00 ] cm ? AV VTI ? 14.61 ?cm ? IVSd 2D ?0.87 ? [ 0.60 - 0.90 ] cm ? LVOT Diam ?2.02 ? [ 1.70 - 2.10 ] cm ? AoR Diam MM ?2.84 ? [ 2.60 - 3.70 ] cm ? LVOT Peak Surinder ?0.95 ? [ 0.70 - 1.10 ] m/s ? LA Volume Index ?17.15 ?[ 16.00 - 28.00 ] cc/m2 ?LVOT VTI ? 14.15 ?[ 20.00 - 30.00 ] cm ? ACS MM ? 1.98 ? [ 1.50 - 2.60 ] cm ? MV E Peak Surinder ?0.42 ? [ 0.60 - 1.30 ] m/s ? MV A Peak Surinder ?0.67 ? [ 1.00 - 1.20 ] m/s ? MV PHT ? 44 ? [ 20 - 100 ] msec ? MVA ?4.40 ? MV Decel Time ?132 ?[ 104 - 258 ] msec ? E' ? 0.07 ? E/E' ? 5.78 ? Findings: Atrial Septum: Normal atrial septum. Left Ventricle: Normal left ventricular systolic function with no focal wall motion abnormalities. Mild concentric left ventricular hypertrophy. Impaired diastolic relaxation Grade I. Ejection fraction is visually estimated at 70 %. Left Atrium: The left atrium is normal in size. Right Ventricle: Normal right ventricular size. Normal right ventricular systolic function. Right Atrium: The right atrium is normal in size. Aortic Valve: Normal structure of the aortic valve. Mitral Valve: Normal structure of the mitral valve. Pulmonic Valve: Normal structure of the pulmonic valve. Tricuspid Valve: Normal right ventricular systolic pressure. Estimated peak RVSP is 25 mmHg. Mild tricuspid regurgitation. Pericardium: Normal pericardium with no significant pericardial effusion. Aorta: Normal aortic root. IVC: Normal size and normal respiratory collapse consistent with normal right atrial pressure (<5 mmHg). Pulmonary Artery: Normal pulmonary artery size. Conclusions: Technically difficult study with suboptimal apical [...] By: Ricky Perkins MD 2021-03-18 16:57:25 CDT Procedure Note Ricky Perkins MD - 03/18/2021 [place] [address] Echocardiogram Report Patient Name: JEANIE CALIPatient ID: [id number] : [id number] Date: 03/18/2021 3:06:13 PM Gender: MAccession #: [id number] Tech: MBLocation: [id number] Ref.Provider: STEVIE CARVERHeight(Cm): 170 BSA: 1.76Weight(Kg): 65.3 Heart Rate: 101BP: 119/88 Quality: GoodOrder Provider: STEVIE CRAVER Procedures: Echocardiographic Report: Transthoracic echocardiogram with complete 2D, M-Mode, and color Dopplerexamination. Indications: Pre-Op Evaluation. Measurements: 2D/M Mode Doppler Measurement Value Normal Range MeasurementValue Normal Range EF Teich 2D 56.4 [ 55.0 - 70.0 ] percent STEPHANIE Vmax2.82 [ 2.00 - 4.00 ] cm2 LVIDd 2D 3.61 [ 4.20 - 5.90 ] cm AV Mean PG 3[ 2 - 4 ] mmHg LVIDs 2D 2.57 [ 2.30 - 3.90 ] cm AV Peak Vel1.08 [ 1.00 - 1.70 ] m/s LVPWd 2D 0.89 [ 0.60 - 1.00 ] cm AV VTI14.61 cm IVSd 2D 0.87 [ 0.60 - 0.90 ] cm LVOT Diam2.02 [ 1.70 - 2.10 ] cm AoR Diam MM 2.84 [ 2.60 - 3.70 ] cm LVOT Peak Vel0.95 [ 0.70 - 1.10 ] m/s LA Volume Index 17.15 [ 16.00 - 28.00 ] cc/m2 LVOT VTI14.15 [ 20.00 - 30.00 ] cm ACS MM 1.98 [ 1.50 - 2.60 ] cm MV E Peak Vel0.42 [ 0.60 - 1.30 ] m/s MV A Peak Vel0.67 [ 1.00 - 1.20 ] m/s MV PHT 44[ 20 - 100 ] msec MVA4.40 MV Decel [id number] [ 104 - 258 ] msec E'0.07 E/E'5.78 Findings: Atrial Septum: Normal atrial septum. Left Ventricle: Normal left ventricular systolic function with no focal wall motionabnormalities. Mild concentric left ventricular hypertrophy. Impaired diastolic relaxationGrade I. Ejection fraction is visually estimated at 70 %. Left Atrium: The left atrium is normal in size. Right Ventricle: Normal right ventricular size. Normal right ventricular systolicfunction. Right Atrium: The right atrium is normal in size. Aortic Valve: Normal structure of the aortic valve. Mitral Valve: Normal structure of the mitral valve. Pulmonic Valve: Normal structure of the pulmonic valve. Tricuspid Valve: Normal right ventricular systolic pressure. Estimated peak RVSP is 25mmHg. Mild tricuspid regurgitation. Pericardium: Normal pericardium with no significant pericardial effusion. Aorta: Normal aortic root. IVC: Normal size and normal respiratory collapse consistent with normal rightatrial pressure (<5 mmHg). Pulmonary Artery: Normal pulmonary artery size. Conclusions: Technically difficult study with suboptimal apical views. Probably Normal left ventricular systolic function with no focal wallmotion abnormalities. Mild concentric left ventricular hypertrophy. Impaireddiastolic relaxation Grade I. Ejection fraction is visually estimated at 70 %. Normal right ventricular systolic pressure. Estimated peak RVSP is 25mmHg. Mild tricuspid regurgitation. Normal pericardium with no significant pericardial effusion. Electronically Signed By: Ricky Perkins MD 2021-03-18 16:57:25 CDT Stevie Carver NP CV ECHO PROCEDURES Final Result * (ABNORMAL) aPTT (03/18/2021 1:21 PM CDT) aPTT 61(H) 27 - 37 sec CHRISTINA CARRENO Comment: Interpretive Data Therapeutic heparin range: 60.0 - 94.0 seconds. Based on correlation with therapeutic heparin activity range of 0.3-0.7 Units/mL. Current interpretive data was last revised on 2020. Blood 03/18/2021 1:21 PM CDT 03/18/2021 2:25 PM CDT Wilbur Elliott MD LAB BLOOD ORDERABLES Final Resul t Performing Organization Address [facility] de Phone Number CHRISTINA CARRENO [address] [facility] [employer] [place] [address] * (ABNORMAL) aPTT (03/18/2021 5:41 AM CDT) Pathologist [facility] aPTT 57(H) 27 - 37 sec [facility] Comment: Interpretive Data Therapeutic heparin range: 60.0 - 94.0 seconds. Based on correlation with therapeutic heparin activity range of 0.3-0.7 Units/mL. Current interpretive data was last revised on 2020. Blood 03/18/2021 5:41 AM CDT 03/18/2021 6:36 AM CDT Wilbur Elliott MD LAB BLOOD ORDERABLES Final Resul t Performing Organization Address [facility] de Phone Number CHRISTINA CARRENO [address] Department [place] [employer] [place] [address] * (ABNORMAL) CBC without differential (03/18/2021 5:41 AM CDT) Pathologist [facility] WBC 7.5 3.8 - 9.9 K/cumm [facility] Hgb 14.2 13.0 - 17.5 g/dL [facility] Hct 45.0 38.9 - 50.3 % [facility] Plt 259 150 - 400 K/cumm [facility] MPV 8.1(L) 9.1 - 12.3 fL [facility] RBC 4.41 4.30 - 5.80 M/cumm [facility] MCV 102.0(H) 81.3 - 96.4 fL [facility] MCH 32.2 27.1 - 33.3 pg [facility] MCHC 31.6(L) 32.3 - 35.7 g/dL [facility] RDW CV 13.8 11.1 - 14.9 % [facility] RDW SD 52.7(H) 35.7 - 48.1 fL [facility] NRBC abs 0.00 0.00 - 0.01 K/cumm CHRISTINA Blood 03/18/2021 5:41 AM CDT 03/18/2021 6:36 AM CDT Narrative CHRISTINA - 03/18/2021 6:50 AM CDT Until heparin is discontinued. Malathi Curry MD LAB BLOOD ORDERABLES Final Res ult Performing Organization Address [facility] de Phone Number [facility] [address] [facility] [employer] [place] [address] * (ABNORMAL) Hemoglobin A1c (03/17/2021 6:10 AM CDT) Hgb A1C 5.7(H) 4.0 - 5.6 % CHRISTINA Estimated Average Glucose 117 mg/dL [facility]STINA CARRENO Comment: The ADA recommends reporting an estimated Average Glucose (eAG) with all Hemoglobin A1c results using the equation derived from a study of 507 normal and diabetic adults. ??Minority populations were underrepresented and children were not included. ?? (Diabetes Care 31:4796-1837, 2008). ??The eAG is not equivalent to a fasting glucose. Blood 03/17/2021 6:10 AM CDT 03/17/2021 11:52 AM CDT Malathi Curry MD LAB BLOOD ORDERABLES Final Res ult Performing Organization Address [facility] de Phone Number [facility] [address] [facility] [employer] [place] [address] * (ABNORMAL) aPTT (03/17/2021 6:10 AM CDT) aPTT 72(H) 27 - 37 sec CHRISTINA Comment: Interpretive Data Therapeutic heparin range: 60.0 - 94.0 seconds. Based on correlation with therapeutic heparin activity range of 0.3-0.7 Units/mL. Current interpretive data was last revised on 2020. Blood 03/17/2021 6:10 AM CDT 03/17/2021 6:41 AM CDT Wilbur Elliott MD LAB BLOOD ORDERABLES Final Resul t Performing Organization Address [facility] de Phone Number CHRISTINA CARRENO [address] [facility] [employer] [place] [address] * (ABNORMAL) aPTT (03/17/2021 12:35 AM CDT) aPTT 66(H) 27 - 37 sec [facility] Comment: Interpretive Data Therapeutic heparin range: 60.0 - 94.0 seconds. Based on correlation with therapeutic heparin activity range of 0.3-0.7 Units/mL. Current interpretive data was last revised on 2020. Blood 03/17/2021 12:3 5 AM CDT 03/17/2021 1:10 AM CDT Wilbur Elliott MD LAB BLOOD ORDERABLES Final Resul t Performing Organization Address [facility] de Phone Number CHRISTINA CARRENO [address] [place] [employer] [place] [address] * (ABNORMAL) CBC without differential (03/17/2021 12:35 AM CDT) Pathologist [facility] WBC 7.3 3.8 - 9.9 K/cumm [facility] Hgb 14.7 13.0 - 17.5 g/dL [facility] Hct 44.4 38.9 - 50.3 % [facility] Plt 303 150 - 400 K/cumm [facility] MPV 8.1(L) 9.1 - 12.3 fL [facility] RBC 4.54 4.30 - 5.80 M/cumm [facility] MCV 97.8(H) 81.3 - 96.4 fL [facility] MCH 32.4 27.1 - 33.3 pg [facility] MCHC 33.1 32.3 - 35.7 g/dL [facility] RDW CV 14.4 11.1 - 14.9 % [facility] RDW SD 52.4(H) 35.7 - 48.1 fL [facility] NRBC abs 0.00 0.00 - 0.01 K/cumm [facility] Blood 03/17/2021 12:3 5 AM CDT 03/17/2021 1:10 AM CDT Narrative [facility] - 03/17/2021 1:17 AM CDT Until heparin is discontinued. Malathi Curry MD LAB BLOOD ORDERABLES Final Res ult Performing Organization Address City/[facility]/ZIP Co de Phone Number CHRISTINA CARRENO [address] [employer] [place] [address] * COVID-19 Coronavirus RNA Nasopharyngeal (03/16/2021 7:19 PM CDT) Pathologist [facility] COVID-19 RNA Negative Negative [facility] Comment: Interpretive data: Synonyms for this test include: PCR and NAAT . ??This test is performed using the [employer] Xpert Xpress assay. This is a real-time RT-PCR test intended for the qualitative detection of nucleic acid from the SARS-CoV-2. This assay has been reviewed by the FDA for Emergency Use Authorization (EUA). The performance characteristics have been verified by the performing laboratory. Results must be considered in the clinical context and a negative result does not rule out infection. Interpretive data last revised June 29, 2020. Employeed in healthcare? Unknown [facility] status? No [facility] Group care resident? No [facility] Hospitalized? Yes [facility] Is patient in ICU? No [facility] Symptomatic as defined by CDC? No [facility] Nasopharyngeal 03/16/2021 7: 19 PM CDT 03/16/2021 7:23 PM CDT Narrative [facility] - 03/16/2021 8:53 PM CDT What is the reason for testing?->Asymptomatic screening prior to procedure or surgery us Gina Anne [employer]ING FINISHER LAB MICROBIOLOGY - GENERA L ORDERABLES Final Result Performing Organization Address [facility]/ZIP Co de Phone Number CHRISTINA CARRENO [address] Department [place] [employer] [place] [address] * eGFR (03/16/2021 7:02 PM CDT) eGFR 54 mL/min/1.7 3 m2 [facility] Comment: Interpretive Data Reference Interval Normal ?>/= 90 mL/min/1.73m2 Mildly decreased* ? 60 - 89 mL/min/1.73m2 Mildly to moderately decreased ?45 - 59 mL/min/1.73m2 Moderately to severely decreased ??30 - 44 mL/min/1.73m2 Severely decreased ?15 - 29 mL/min/1.73m2 Kidney Failure ?< 15 ??mL/min/1.73m2 *Relative to young adult level Estimated glomerular filtration rate is determined by the CKD-EPI equation recommended by the National Kidney Foundation (KDIGO 2012 Clinical Practice Guideline for the Evaluation and Management of Chronic Kidney Disease. Kidney Intnl Suppl May 2012;3:1). The CKD-EPI equation should not be used for patients with unstable renal function and has not been validated in children and those over 70. Current interpretive data was last reviewed 2020 Blood 03/16/2021 7:02 PM CDT 03/16/2021 7:12 PM CDT Wilbur Elliott MD LAB BLOOD ORDERABLES Final Resul t [facility] [address] Department [place] [address] * (ABNORMAL) Comprehensive metabolic panel (03/16/2021 7:02 PM CDT) Pathologist [facility] Sodium 142 135 - 145 mmol/L [facility] Potassium, pl 4.3 3.3 - 4.9 mmol/L [facility] Chloride 101 97 - 110 mmol/L [facility] CO2 30 22 - 32 mmol/L [facility] Anion gap 11 2 - 15 mmol/L [facility] BUN 15 8 - 25 mg/dL [facility] Creatinine 1.44(H) 0.80 - 1.30 mg/dL [facility] Glucose 128 70 - 199 mg/dL [facility] Comment: Interpretive Data Fasting glucose >/= 126 mg/dl is diagnostic for diabetes. ?? Fasting is defined as no caloric intake for at least 8 hours. Fasting glucose between 100 mg/dl to 125 mg/dl is diagnostic of prediabetes. In a patient with classic symptoms of hyperglycemia or hyperglycemic crisis, a random glucose >/= 200 mg/dl is diagnostic for diabetes. In the absence of unequivocal hyperglycemia, results should be confirmed by repeat testing. The classification and Diagnosis of Diabetes Diabetes Care 2017;40 (Suppl. 1):S11. Current interpretive data was last revised 2017. Calcium 9.0 8.5 - 10.3 mg/dL [facility] Bilirubin, total 0.2 0.1 - 1.2 mg/dL [facility] Protein, pl 6.9 6.5 - 8.5 g/dL [facility] Albumin 4.1 3.5 - 5.0 g/dL [facility] Alk phos 96 40 - 130 Units/L [facility] ALT 21 7 - 55 Units/L [facility] AST 21 10 - 50 Units/L [facility] Blood 03/16/2021 7:02 PM CDT 03/16/2021 7:12 PM CDT Wilbur Elliott MD LAB BLOOD ORDERABLES Final Resul t [facility] [address] Department [place] [address] * (ABNORMAL) aPTT (03/16/2021 7:02 PM CDT) aPTT 66(H) 27 - 37 sec [facility] Comment: Interpretive Data Therapeutic heparin range: 60.0 - 94.0 seconds. Based on correlation with therapeutic heparin activity range of 0.3-0.7 Units/mL. Current interpretive data was last revised on 2020. Blood 03/16/2021 7:02 PM CDT 03/16/2021 7:12 PM CDT us Antelmo Proctor MD LAB BLOOD ORDERABLES Final R esult [facility] C[facility] [address] Department [place] [address] * Urinalysis reflex to microscopic and culture Urine, clean voided (03/16/2021 1:40 PM CDT) Color, ur Yellow Yellow [facility] Clarity, ur Clear Clear [facility] Specific gravity, ur 1.019 1.003 - 1.030 [facility] pH, urine 8.0 [facility] Protein, ur ql Negative Negative [facility] Glucose, ur ql Negative Negative [facility] Ketones, ur Negative Negative [facility] Bilirubin, ur Negative Negative [facility] Blood, ur Negative Negative [facility] Urobilinogen, ur <2.0 <2.0 mg/dL [facility] Nitrite, ur Negative Negative [facility] Leukocyte esterase, ur Negative Negative [facility] UA reflex comment Reflex conditions for microscopic UA and culture not met. [facility] Urine, clean voided 03/16/2021 1:40 PM CDT 03/16/2021 1:41 PM CDT Narrative [facility] - 03/16/2021 1:47 PM CDT ?? Urine pH is affected by diet, medications, systemic acid-base disturbances, and renal tubular function. ??pH may affect urinary stone formation. ??For example, urine pH below 6.0 may help reduce the tendency for calcium phosphate stones and pH greater than 6.0 may reduce the tendency for uric acid stone formation. Source: [employer]. Last revised 06-05-2017 us Gina Anne NP LAB MICROBIOLOGY - GENERA L ORDERABLES Final Result [facility] CARRENO [address] Department [place] [address] * XR Chest 1 Vw Portable (03/16/2021 [...] Electronically signed by: Shamir Manley M.D. us Stevie Carver [employer]ING FINISHER IMG XR PROCEDURES Final R esult * eGFR (03/16/2021 10:50 AM CDT) eGFR 72 mL/min/1.7 3 m2 [facility] Comment: Interpretive Data Reference Interval Normal ?>/= 90 mL/min/1.73m2 Mildly decreased* ? 60 - 89 mL/min/1.73m2 Mildly to moderately decreased ?45 - 59 mL/min/1.73m2 Moderately to severely decreased ??30 - 44 mL/min/1.73m2 Severely decreased ?15 - 29 mL/min/1.73m2 Kidney Failure ?< 15 ??mL/min/1.73m2 *Relative to young adult level Estimated glomerular filtration rate is determined by the CKD-EPI equation recommended by the National Kidney Foundation (KDIGO 2012 Clinical Practice Guideline for the Evaluation and Management of Chronic Kidney Disease. Kidney Intnl Suppl May 2012;3:1). The CKD-EPI equation should not be used for patients with unstable renal function and has not been validated in children and those over 70. Current interpretive data was last reviewed 2020 Blood 03/16/2021 10:5 0 AM CDT 03/16/2021 11:01 AM CDT Mery Walker NP LAB BLOOD ORDERABLES Gisselle l Result Performing Organization Address [facility] de Phone Number [facility] [address] [facility] [employer] [place] [address] * (ABNORMAL) aPTT (03/16/2021 10:50 AM CDT) aPTT 149(H) 27 - 37 sec [facility] Comment: Interpretive Data Therapeutic heparin range: 60.0 - 94.0 seconds. Based on correlation with therapeutic heparin activity range of 0.3-0.7 Units/mL. Current interpretive data was last revised on 2020. Blood 03/16/2021 10:5 0 AM CDT 03/16/2021 11:01 AM CDT Narrative [facility] - 03/16/2021 11:24 AM CDT Unless preformed in the last 48 hours. Draw prior to heparin administration. Mery Walker NP LAB BLOOD ORDERABLES Gisselle l Result Performing Organization Address [facility] de Phone Number [facility] [address] [facility] [place] [place] [address] * Protime-INR (03/16/2021 10:50 AM CDT) PT 10.7 9.5 - 13.6 sec [facility] INR 1.0 0.9 - 1.2 [facility] Comment: Interpretive data Oral anticoagulant therapeutic ranges: Venous thromboembolism prophylaxis or treatment: 2.0-3.0 CARDIOLOGY Standard range: 2.0-3.0 High-intensity range: 2.5-3.5 Refer to indication-specific guidelines for appropriate target ranges for prosthetic heart valve replacement. Current interpretive data was last revised on 2019. Blood 03/16/2021 10:5 0 AM CDT 03/16/2021 11:01 AM CDT Narrative [facility] - 03/16/2021 11:11 AM CDT Unless preformed in the last 48 hours. Draw prior to heparin administration. Mery Walker NP LAB BLOOD ORDERABLES Gisselle abril Result Performing Organization Address City/[facility]/ZIP Co de Phone Number [facility]STINA [address] [place] [address] * (ABNORMAL) CBC without differential (03/16/2021 10:50 AM CDT) WBC 7.8 3.8 - 9.9 K/cumm [facility] Hgb 15.9 13.0 - 17.5 g/dL [facility] Hct 47.5 38.9 - 50.3 % [facility] Plt 285 150 - 400 K/cumm [facility] MPV 7.7(L) 9.1 - 12.3 fL [facility] RBC 4.88 4.30 - 5.80 M/cumm [facility] MCV 97.3(H) 81.3 - 96.4 fL [facility] MCH 32.6 27.1 - 33.3 pg [facility] MCHC 33.5 32.3 - 35.7 g/dL [facility] RDW CV 14.4 11.1 - 14.9 % [facility] RDW SD 51.9(H) 35.7 - 48.1 fL [facility] NRBC abs 0.00 0.00 - 0.01 K/cumm [facility] Blood 03/16/2021 10:5 0 AM CDT 03/16/2021 11:01 AM CDT Narrative [facility] - 03/16/2021 11:05 AM CDT Unless preformed in the last 48 hours. Draw prior to heparin administration. Mery Walker NP LAB BLOOD ORDERABLES Gisselle samuels Result Performing Organization Address City/[facility]/ZIP Co de Phone Number CHRISTINA CARRENO [id number] [place] [address] * Comprehensive metabolic panel (03/16/2021 10:50 AM CDT) Sodium 138 135 - 145 mmol/L [facility] Potassium, pl 4.8 3.3 - 4.9 mmol/L [facility] Chloride 99 97 - 110 mmol/L [facility] CO2 29 22 - 32 mmol/L [facility] Anion gap 10 2 - 15 mmol/L [facility] BUN 9 8 - 25 mg/dL [facility] Creatinine 1.14 0.80 - 1.30 mg/dL [facility] Glucose 113 70 - 199 mg/dL [facility] Comment: Interpretive Data Fasting glucose >/= 126 mg/dl is diagnostic for diabetes. ?? Fasting is defined as no caloric intake for at least 8 hours. Fasting glucose between 100 mg/dl to 125 mg/dl is diagnostic of prediabetes. In a patient with classic symptoms of hyperglycemia or hyperglycemic crisis, a random glucose >/= 200 mg/dl is diagnostic for diabetes. In the absence of unequivocal hyperglycemia, results should be confirmed by repeat testing. The classification and Diagnosis of Diabetes Diabetes Care 2017;40 (Suppl. 1):S11. Current interpretive data was last revised 2017. Calcium 9.4 8.5 - 10.3 mg/dL [facility] Bilirubin, total 0.4 0.1 - 1.2 mg/dL [facility] Protein, pl 7.3 6.5 - 8.5 g/dL [facility] Albumin 4.2 3.5 - 5.0 g/dL [facility] Alk phos 102 40 - 130 Units/L [facility] ALT 24 7 - 55 Units/L [facility] AST 26 10 - 50 Units/L [facility] Blood 03/16/2021 10:5 0 AM CDT 03/16/2021 11:01 AM CDT us Mery Walker LINING FINISHER LAB BLOOD ORDERABLES Gisselle samuels Result CERNER [id number] Department [place] [address] * Magnesium (03/16/2021 10:50 AM CDT) Magnesium 2.1 1.4 - 2.5 mg/dL CHRISTINA CARRENO Blood 03/16/2021 10:5 0 AM CDT 03/16/2021 11:01 AM CDT us Mery Walker NP LAB BLOOD ORDERABLES Gisselle samuels Result CHRISTINA [id number] Department [place] [address] documented in this encounter Visit Diagnoses Diagnosis Coronary artery disease involving [place] heart without angina pectoris- Primary Coronary artery disease involving [place] coronary artery of [place] heart without angina pectoris Coronary artery disease involving [place] heart without angina pectoris, unspecified vessel or lesion type documented in this encounter Admitting Diagnoses Diagnosis Coronary artery disease involving [place] heart without angina pectoris documented in this encounter Administered Medications Inactive Administered Medications - up to 3 most recent administrations Medication Order MAR Action Action Date Dose Rate Site acetaminophen (TYLENOL) tablet 650 mg 650 mg, oral, Every 6 hours PRN, 2nd line for pain, Starting on Fri03/24/21 at 1042 albuterol 2.5 mg /3 mL (0.083 %) nebulizer solution 2.5 mg 2.5 mg, nebulization, Every 6 hours PRN (respiratory services manager), wheezing, Starting on Fri03/23/21 at 0845, Indications: Bronchospastic Pulmonary DiseaseIndications:Bronchospastic Pulmonary Disease aspirin enteric coated tablet 81 mg 81 mg, oral, Daily, First dose on Fri03/20/21 at 1700, Administer EC oral tablet if able to swallow medications. Do not crush, chew, cut, dissolve, open or otherwise manipulate tablet/capsule. Given 03/25/2021 10:00 AM CDT 81 mg Given 03/24/2021 8:31 AM CDT 81 mg Given 03/23/2021 8:33 AM CDT 81 mg bisacodyL (DULCOLAX) suppository 10 mg 10 mg, rectal, Daily PRN, constipation, Starting on Fri03/23/21 at 1231, Indications: constipationIndications:constipation buPROPion XL (WELLBUTRIN XL) 24 hour tablet 150 mg 150 mg, oral, Daily, First dose on Fri03/22/21 at 0900, Do not crush, chew, cut, dissolve, open or otherwise manipulate tablet/capsule. Given 03/25/2021 10:00 AM CDT 150 mg Given 03/24/2021 8:31 AM CDT 150 mg Given 03/23/2021 8:33 AM CDT 150 mg carvediloL (COREG) tablet 6.25 mg 6.25 mg, oral, 2 times daily with meals (bkfst, dinner), First dose on Fri03/22/21 at 0830 Given 03/25/2021 10:00 AM CDT 6.25 mg Given 03/24/2021 5:59 PM CDT 6.25 mg Given 03/24/2021 8:31 AM CDT 6.25 mg ceFAZolin (ANCEF) 1 gram/10 mL in sterile water (premix) Administer over 3 Minutes, As needed, Starting on Fri03/20/21 at 1146, Intra-Op Given 03/20/2021 11:46 AM CDT 3,000 mg Surgical Site cholestyramine-aspartame (QUESTRAN LIGHT) 4 gram packet 1 packet 1 packet, oral, Daily (early AM), First dose on Fri03/17/21 at 0600, Mix with water or juice. Schedule other medications 1 hour before or 4 hours after cholestyramine. Given 03/25/2021 6:03 AM CDT 1 packet Given 03/24/2021 6:10 AM CDT 1 packet Given 03/23/2021 5:01 AM CDT 1 packet clopidogreL (PLAVIX) tablet 75 mg 75 mg, oral, Daily, First dose on Fri03/21/21 at 0900 Given 03/25/2021 9:59 AM CDT 75 mg Given 03/24/2021 8:31 AM CDT 75 mg Given 03/23/2021 8:32 AM CDT 75 mg docusate sodium (COLACE) capsule 100 mg 100 mg, oral, 2 times daily, First dose on Fri03/26/21 at 0900, Indications: constipationIndications:constipation electrolyte-A (PLASMA-LYTE) bolus Continuous PRN, Starting on Fri03/20/21 at 1148, Intra-Op New Bag 03/20/2021 3:47 PM CDT New Bag 03/20/2021 11:48 AM CDT 1,000 mL S urgical Site New Bag 03/20/2021 11:37 AM CDT famotidine (PEPCID) tablet 20 mg 20 mg, oral, 2 times daily, First dose on Fri03/21/21 at 1130 Given 03/25/2021 9:59 AM CDT 20 mg Given 03/24/2021 9:01 PM CDT 20 mg Given 03/24/2021 8:32 AM CDT 20 mg heparin 1,000 unit/mL injection As needed, Starting on Fri03/20/21 at 1156, Intra-Op Given 03/20/2021 11:56 AM CDT 11,000 Units Surgical Site ondansetron (ZOFRAN) injection 4 mg 4 mg, intravenous, Administer over 2 Minutes, Every 6 hours PRN, nausea, vomiting, Starting on Fri03/21/21 at 0820 Given 03/22/2021 8:59 AM CDT 4 mg Given 03/21/2021 8:21 AM CDT 4 mg oxyCODONE (ROXICODONE) tablet 10 mg 10 mg, oral, Every 4 hours PRN, 1st line for pain, Starting on Fri03/22/21 at 0142, Indications: PainIndications:Pain Given 03/25/2021 6:02 AM CDT 10 mg Given 03/24/2021 9:01 PM CDT 10 mg Given 03/24/2021 2:22 PM CDT 10 mg papaverine injection As needed, Starting on Fri03/20/21 at 1147, Intra-Op Given 03/20/2021 11:47 AM CDT 120 mg Surgical Site polyethylene glycol (MIRALAX) packet 17 g 17 g, oral, Daily, First dose on Fri03/21/21 at 0900, Indications: constipationIndications:constipa tion Given 03/22/2021 8:16 AM CDT 17 g Given 03/21/2021 8:03 AM CDT 17 g ramelteon (ROZEREM) tablet 8 mg 8 mg, oral, Nightly PRN, sleep, Starting on Fri03/21/21 at 1938, Indications: Sleep-Onset InsomniaIndications:Sleep-Onset Insomnia Given 03/24/2021 9:02 PM CDT 8 m g Given 03/23/2021 7:53 PM CDT 8 mg Given 03/22/2021 9:35 PM CDT 8 mg rosuvastatin (CRESTOR) tablet 20 mg 20 mg, oral, Nightly, First dose on Fri03/16/21 at 2100 Given 03/24/2021 9:01 PM CDT 20 mg Given 03/23/2021 7:54 PM CDT 20 mg Given 03/22/2021 9:35 PM CDT 20 mg senna-docusate (PERICOLACE) 8.6-50 mg per tablet 2 tablet 2 tablet, oral, 2 times daily, First dose on Fri03/20/21 at 2100 Given 03/24/2021 8:31 AM CDT 2 tablets Given 03/23/2021 7:54 PM CDT 2 tablets Given 03/23/2021 8:33 AM CDT 2 tablets sodium chloride 0.9% flush 0.5-20 mL 0.5-20 mL, intra-catheter, As needed, line care, Starting on Fri03/16/21 at 1010, Flush volume based on line type and size. Flush before and after each use. sodium chloride 0.9% flush 0.5-20 mL 0.5-20 mL, intra-catheter, Every 8 hours scheduled, First dose on Fri03/20/21 at 1700, Flush volume based on line type and size. , Indications: FlushingIndications:Flushing Given 03/24/2021 9:03 PM CDT 10 mL Given 03/24/2021 12:47 PM CDT 10 mL Given 03/23/2021 12:26 PM CDT 10 mL sodium chloride 0.9% irrigation As needed, Starting on Fri03/20/21 at 1148, Intra-Op Given 03/20/2021 11:48 AM CDT 5,000 mL Surgical Site vancomycin (VANCOCIN) 2,000 mg in sodium chloride 0.9% 2 mL topical solution As needed, Starting on Fri03/20/21 at 1147, Intra-Op Given 03/20/2021 11:47 AM CDT 12 mL Chest documented in this encounter Discontinued Medications Medication Sig Discontinue Reason Start Date End Da te nitroglycerin (NITROSTAT) 0.[address] 0.3 mg under the tongue every 5 (five) minutes as needed for chest pain Stop Taking at Discharge 03/25/2021 amLODIPine (NORVASC) 10 mg tablet Take 10 mg by mouth daily Stop Taking at Discharge 03/25/2021 documented as of this encounter Historical Medications * This list may reflect changes made after this encounter. albuterol (PROAIR RESPICLICK) 90 mcg/actuation inhaler Inhale 2 puffs every 6 (six) hours as needed for wheezing hydrocortisone (ANUSOL-HC) 2.5 % rectal cream Insert into the rectum 2 (two) times a day cholestyramine (QUESTRAN) 4 gram packet Take 1 packet by mouth 3 (three) times a day with meals buPROPion XL (WELLBUTRIN XL) 150 mg 24 hr tablet Take 150 mg by mouth daily carvediloL (COREG) 6.25 mg tablet Take 6.25 mg by mouth 2 (two) times a day with meals ergocalciferol (VITAMIN D) 50,000 unit capsule Take 50,000 Units by mouth once a week amLODIPine (NORVASC) 10 mg tablet Take 10 mg by mouth daily 03/25/2021 nitroglycerin (NITROSTAT) 0.[address] 0.3 mg under the tongue every 5 (five) minutes as needed for chest pain 03/25/2021 added in this encounter Active and Recently Administered Medications Times are shown in CDT. Scheduled Medication Order 03/23/2021 03/24/2021 03/25/2021 acetaminophen (TYLENOL) tablet 1,000 mg (CANCELED) 1,000 mg, oral, Every 6 hours scheduled, First dose on Fri03/21/21 at 1200 0501 (Given - Provider: Juan Antonio Camacho RN)1222 (Given - Provider: Rich Squires RN)1753 (Given - Provider: Rich Squires RN) 0026 (Given - Provider: Marco A Morrison RN)0610 (Given - Provider: Marco A Morrison RN) albuterol 2.5 mg /3 mL (0.083 %) nebulizer solution 2.5 mg (CANCELED) 2.5 mg, nebulization, Every 6 hours (respiratory services manager), First dose (after last modification) on Gloria 03/22/21 at 2100, Indications: Bronchospastic Pulmonary Disease 0221 (Given - Provider: Adina Jimenez, PICK UP AND DELIVERY DRIVER) aspirin enteric coated tablet 81 mg(Linked Group 1) 81 mg, oral, Daily, First dose on Fri03/20/21 at 1700, Administer EC oral tablet if able to swallow medications. Do not crush, chew, cut, dissolve, open or otherwise manipulate tablet/capsule. 0833 (Given - Provider: Rich Squires RN) 0831 (Given - Provider: Rich Squires RN) 1000 (Given - Provider: Pat White, AUTUMN) buPROPion XL (WELLBUTRIN XL) 24 hour tablet 150 mg 150 mg, oral, Daily, First dose on Fri03/22/21 at 0900, Do not crush, chew, cut, dissolve, open or otherwise manipulate tablet/capsule. 0833 (Given - Provider: Rich Squires RN) 0831 (Given - Provider: Rich Squires RN) 1000 (Given - Provider: Pat White, AUTUMN) carvediloL (COREG) tablet 6.25 mg 6.25 mg, oral, 2 times daily with meals (bkfst, dinner), First dose on Fri03/22/21 at 0830 0833 (Given - Provider: Rich Squires RN)1755 (Given - Provider: Rich Squires RN) 0831 (Given - Provider: Rich Squires, AUTUMN)1759 (Given - Provider: Rich Squires RN) 1000 (Given - Provider: Pat White, AUTUMN) cholestyramine-aspartame (QUESTRAN LIGHT) 4 gram packet 1 packet 1 packet, oral, Daily (early AM), First dose on Fri03/17/21 at 0600, Mix with water or juice. Schedule other medications 1 hour before or 4 hours after cholestyramine. 0501 (Given - Provider: Juan Antonio Camacho RN) 0610 (Given - Provider: Marco A Morrison RN) 0603 (Given - Provider: Meghan Hand RN) clopidogreL (PLAVIX) tablet 75 mg 75 mg, oral, Daily, First dose on Fri03/21/21 at 0900 0832 (Given - Provider: Rich Squires RN) 0831 (Given - Provider: Rich Squires RN) 0959 (Given - Provider: Pat White, AUTUMN) docusate sodium (COLACE) capsule 100 mg 100 mg, oral, 2 times daily, First dose on Fri03/26/21 at 0900, Indications: constipation famotidine (PEPCID) tablet 20 mg 20 mg, oral, 2 times daily, First dose on Fri03/21/21 at 1130 0833 (Given - Provider: Rich Squires RN)1954 (Given - Provider: Marco A Morrison RN) 0832 (Given - Provider: Rich Squires RN)210 (Given - Provider: Meghan Hand RN) 0959 (Given - Provider: Pat White RN) furosemide (LASIX) 10 mg/mL injection 40 mg (CANCELED) 40 mg, intravenous, Daily, First dose on Fri03/23/21 at 1230, Room temperature only 1223 (Given - Provider: Rich Squires RN) 0832 (Given - Provider: Rich Squires RN) furosemide (LASIX) tablet 40 mg 40 mg, oral, Once, On Fri03/24/21 at 1030, For 1 dose 1147 (Not Given - Provider: Rich Squires RN - Reason: Other - Comment: IV dose given earlier) ketorolac (TORADOL) 15 mg/mL injection 15 mg (COMPLETED) 15 mg, intravenous, Once, On Fri03/23/21 at 0915, For 1 dose, For Adult IV push, administer over 15 seconds 0854 (Not Given - Provider: Rich Squires RN - Reason: Other - Comment: vial fell and broke)0859 (Given - Provider: Rich Squires RN - Comment: previous vial fell and broke) polyethylene glycol (MIRALAX) packet 17 g 17 g, oral, Daily, First dose on Fri03/21/21 at 0900, Indications: constipation 0831 (Not Given - Provider: Rich Squires RN - Reason: Patient/family refused) 0832 (Not Given - Provider: Rich Squires RN - Reason: Patient/family refused) 0959 (Not Given - Provider: Pat White RN - Reason: Patient/family refused) potassium chloride ER (KLOR-CON) extended release tablet 40 mEq (COMPLETED) 40 mEq, oral, Once, On Fri03/24/21 at 1030, For 1 dose, Do not crush, chew, cut, dissolve, open or otherwise manipulate tablet/capsule. 1246 (Given - Provider: Rich Squires RN) rosuvastatin (CRESTOR) tablet 20 mg 20 mg, oral, Nightly, First dose on Fri03/16/21 at 2100 1954 (Given - Provider: Marco A Morrison RN) 2100 (Given - Provider: Meghan Hand RN) senna-docusate (PERICOLACE) 8.6-50 mg per tablet 2 tablet 2 tablet, oral, 2 times daily, First dose on Fri03/20/21 at 2100 0833 (Given - Provider: Rich Squires RN)195 (Given - Provider: Marco A Morrison RN) 0831 (Given - Provider: Rich Squires RN)2100 (Not Given - Provider: Meghan Hand RN - Reason: Patient/family refused) 0959 (Not Given - Provider: Pat White RN - Reason: Patient/family refused) sodium chloride 0.9% flush 0.5-20 mL 0.5-20 mL, intra-catheter, Every 8 hours scheduled, First dose on Fri03/20/21 at 1700, Flush volume based on line type and size. , Indications: Flushing 0413 (Canceled Entry - Provider: Juan Antonio Camacho RN)1226 (Given - Provider: Rich Squires RN)2121 (Not Given - Provider: Marco A Morrison RN - Reason: Other) 0418 (Not Given - Provider: Marco A Morrison RN - Reason: Other)1247 (Given - Provider: Rich Squires RN)210 (Given - Provider: Meghan Hand RN) 0659 (Not Given - Provider: Meghan Hand RN - Reason: Other)1301 (Not Given - Provider: Pat White RN - Reason: Loss of IV access) PRN Medication Order 03/23/2021 03/24/2021 03/25/2021 acetaminophen (TYLENOL) tablet 650 mg 650 mg, oral, Every 6 hours PRN, 2nd line for pain, Starting on 03/24/21 at 1042 albuterol 2.5 mg /3 mL (0.083 %) nebulizer solution 2.5 mg 2.5 mg, nebulization, Every 6 hours PRN (respiratory services manager), wheezing, Starting on Fri03/23/21 at 0845, Indications: Bronchospastic Pulmonary Disease bisacodyL (DULCOLAX) suppository 10 mg 10 mg, rectal, Daily PRN, constipation, Starting on Fri03/23/21 at 1231, Indications: constipation ondansetron (ZOFRAN) injection 4 mg 4 mg, intravenous, Administer over 2 Minutes, Every 6 hours PRN, nausea, vomiting, Starting on Fri03/21/21 at 0820 oxyCODONE (ROXICODONE) tablet 10 mg 10 mg, oral, Every 4 hours PRN, 1st line for pain, Starting on Gloria 03/22/21 at 0142, Indications: Pain 0227 (Given - Provider: Juan Antonio Camacho RN)0632 (Given - Provider: Juan Antonio Camacho RN)1424 (Given - Provider: Rich Squires RN)195 (Given - Provider: Marco A Morrison RN) 0832 (Given - Provider: Rich Squires RN)1422 (Given - Provider: Rich Squires RN)2101 (Given - Provider: Meghan Hand RN) 0602 (Given - Provider: Meghan Hand RN) ramelteon (ROZEREM) tablet 8 mg 8 mg, oral, Nightly PRN, sleep, Starting on Fri03/21/21 at 1938, Indications: Sleep-Onset Insomnia 1952 (Given - Provider: Marco A Morrison RN) 210 (Given - Provider: Meghan Hand RN) sodium chloride 0.9% flush 0.5-20 mL 0.5-20 mL, intra-catheter, As needed, line care, Starting on Fri03/16/21 at 1010, Flush volume based on line type and size. Flush before and after each use. Linked Groups Order Group 1: aspirin enteric coated tablet 81 mgJump to med 81 mg, oral, Daily, First dose on Fri03/20/21 at 1700, Administer EC oral tablet if able to swallow medications. Do not crush, chew, cut, dissolve, open or otherwise manipulate tablet/capsule. Or aspirin chewable tablet 81 mg (CANCELED) 81 mg, oral, Daily, First dose on Fri03/20/21 at 1700, Administer chewable tablet per tube if receiving medictions per tube. documented in this encounter Orders Medications Ordered That Ahmet ht Not Have Been Administered Count Last Ordered Date First Ordered Date docusate sodium (COLACE) capsule 100 mg 2 1 03/20/2021 acetaminophen (TYLENOL) tablet 650 mg 1 furosemide (LASIX) tablet 40 mg 1 potassium chloride ER (KLOR- CON) extended release tablet 40 mEq 1 03/24/2021 albuterol 2.5 mg /3 mL (0.08 3 %) nebulizer solution 2.5 mg 3 03/23/2021 03/20/2021 bisacodyL (DULCOLAX) suppository 10 mg 1 furosemide (LASIX) 10 mg/mL injection 40 mg 3 03/23/2021 03/21/2021 ketorolac (TORADOL) 15 mg/mL injection 15 mg 2 03/23/2021 03/21/2021 buPROPion XL (WELLBUTRIN XL) 24 hour tablet 150 mg 1 03/22/2021 carvediloL (COREG) tablet 6.25 mg 2 021 03/16/2021 enoxaparin (LOVENOX) syringe 40 mg 1 2020 magnesium sulfate 2 g/50 mL in water (premix) 2 g 2 03/22/2021 03/21/2021 oxyCODONE (ROXICODONE) tablet 10 mg 2 03/2203/21/2021 acetaminophen (TYLENOL) tablet 1,000 mg 1 1 clopidogreL (PLAVIX) tablet 75 mg 1 famotidine (PEPCID) tablet 20 mg 1 03/21/20 HYDROmorphone (DILAUDID) injection 0.5 mg 1 03/21/2021 norepinephrine in 0.9% sodiu m chloride (LEVOPHED) 8,000 mcg/250 mL (32 mcg/mL) infusion (premix) 2 03/21/2021 03/20/2021 ondansetron (ZOFRAN) injection 4 mg 1 03/21 oxyCODONE (ROXICODONE) tablet 5 mg 2 2020 ramelteon (ROZEREM) tablet 8 mg 1 albumin 5 % bottle 12.5 g 2 03/20/2021 albumin 5 % bottle 25 g 1 03/20/2021 aspirin chewable tablet 81 mg 2 03/20/2021 03/16/2021 aspirin enteric coated tablet 81 mg 1 03/20 calcium chloride 1 g in sodi um chloride 0.9% 100 mL IVPB 1 03/20/2021 ceFAZolin (ANCEF) 1 gram/10 mL in sterile water (premix) 1,000 mg 1 03/20/2021 ceFAZolin (ANCEF) 1 gram/10 mL in sterile water (premix) 2,000 mg 1 03/20/2021 dexmedeTOMIDine in 0.9% sodi um chloride (PRECEDEX) 400 mcg/100 mL (4 mcg/mL) infusion (premix) 1 03/20/2021 dextrose (D10W) 10% bolus 1-500 mL 1 2020 docusate (COLACE) 10 mg/mL o ral liquid 100 mg 1 03/20/2021 EPINEPHrine in 0.9% sodium c hloride 2 mg/100 mL (20 mcg/mL) infusion (premix) 1 03/20/2021 famotidine (PEPCID) injection 20 mg 1 03/20 fentaNYL (SUBLIMAZE) preserv ative free injection 50 mcg 1 03/20/2021 insulin regular (HumuLIN R, NovoLIN R) 100 Units in sodium chloride 0.9% 100 mL (1 Units/mL) infusion 1 03/20/2021 insulin regular bolus from bag 1-10 Units 1 03/20/2021 milrinone in dextrose 5% (CA IMACOR) 20 mg/100 mL (200 mcg/mL) infusion (premix) 1 03/20/2021 oxyCODONE-acetaminophen (PER COCET) 5-325 mg per tablet 2 tablet 1 03/20/2021 polyethylene glycol (MIRALAX) packet 17 g 1 03/20/2021 potassium chloride 20 mEq/50 mL in sterile water (premix) 20 mEq 1 03/20/2021 prochlorperazine (COMPAZINE) injection 10 mg 1 03/20/2021 senna-docusate (PERICOLACE) 8.6-50 mg per tablet 2 tablet 1 03/20/2021 sodium bicarbonate 8.4 % (1 mEq/mL) injection 50 mEq 1 03/20/2021 sodium chloride 0.9% flush 0.5-20 mL 3 02/2403/16/2021 sodium chloride 0.9% infusion 2 03/20/2021 03/19/2021 sodium chloride 0.9% solution 2 03/20/2021 sodium chloride 0.9% solution 500 mL 1 02/24 vancomycin 1,000 mg/200 mL i n dextrose 5% (premix) 1,000 mg 2 03/20/2021 nitroglycerin (NITRO-BID) 2 % ointment 0.5 inch 1 03/17/2021 amLODIPine (NORVASC) tablet 10 mg 1 021 cholestyramine-aspartame (QU ESTRAN LIGHT) 4 gram packet 1 packet 1 03/16/2021 heparin 1,000 unit/mL inject ion 2,000 Units 1 03/16/2021 heparin 1,000 unit/mL inject ion 3,000 Units 1 03/16/2021 heparin in 0.45% sodium chlo ride 25,000 units/250 mL (100 units/mL) infusion (premix) 1 03/16/2021 hydrALAZINE (APRESOLINE) injection 10 mg 1 03/16/2021 rosuvastatin (CRESTOR) tablet 20 mg 1 03/16 Lab Orders Without Results Count Last Ordered D ate First Ordered Date POCT GLUCOSE DEVICE 12 03/24/2021 03/20/20 21 Diet Count Last Ordered Date First Orde red Date ADULT DISCHARGE DIET 1 03/25/2021 Nursing Count Last Ordered Date First Orde red Date DISCHARGE ACTIVITY 5 03/25/2021 DISCHARGE CALL PROVIDER 4 03/25/2021 DISCHARGE DRESSING 1 03/25/2021 DISCHARGE INSTRUCTIONS 3 03/25/2021 WEIGHT RESTRICTIONS 1 03/25/2021 APPLY DRESSING 1 03/20/[address]21 PLACE SEQUENTIAL COMPRESSION DEVICE 1 03/20 WEIGH PATIENT 1 03/16/2021 Consult Count Last Ordered Date First Orde red Date IP CONSULT TO NUTRITION SERVICES 1 03/20/20 IP CONSULT TO SOCIAL WORK 1 03/20/2021 IP CONSULT TO CARDIOTHORACIC SURGERY 1 02/24 Transfer Count Last Ordered Date First Orde red Date TRANSFER PATIENT 2 03/22/2021 03/20/2021 CORE MEASURES Count Last Ordered Date First Ord ered Date REASON FOR NO VTE PROPHYLAXI S - HOSPITAL ADMISSION - MEDICATIONS 2 03/20/2021 03/16/2021 documented in this encounter Care Teams Numerical Analysis Group Manager Relationship Specialty Start Date End Date Hemant Lopez MD PCP - General 03/20/21 03/20/21 documented as of this encounter
--- OUTSIDE RECORDS SUMMARY | 2024-06-06 03:28 | XMS_ITS | Encounter Summary ---
Author Organization [facility] Healthcare Address [address] [place] [address] Care Team Providers Care Director Clinical Research Name Role Phone Hemant Lopez MD Primary Care Provider [phone] Encounter Details Date Type Department Care Team (Latest Contact Info) Description 03/23/2021 3:59 AM CDT - 03/23/2021 11:59 PM CDT Hospital Encounter [facility] [address] [place] [address] Discharge Disposition: Discharge to home or self care Social History Tobacco Use Types Packs/Day Years Used Date Smoking Tobacco: Every Day Sex and Gender Information Value Date Recorded Sex Assigned at Not on file 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 ??Thoracostomy tube left side removed without pneumothorax. ??Postsurgical changes in the heart and mediastinum. ??No failure or fluid. Procedure Note Neftali Kaminski MD - 03/23/2021 EXAMINATION: XR CHEST 1 VIEW DATE: 03/23/2021 4:00 AM HISTORY: 55-year-old man follow-up cardiac surgery FINDINGS:Compared with study of the prior day, [place] catheter withdrawn into the superior vena cava. Thoracostomy tube left side removed without pneumothorax. Postsurgical changes in the heart and mediastinum. No failure or fluid. IMPRESSION: Removal of chest tube without pneumothorax. No failure. Electronically signed by: Neftali Kaminski M.D. Malathi Curry MD IMG XR PROCEDURES Final Result documented in this encounter Visit Diagnoses Not on filedocumented in this encounter Care Teams Director Clinical Research Relationship Specialty Start Date End Date Hemant Lopez MD PCP - General 03/22/21 documented as of this encounter
--- OUTSIDE RECORDS SUMMARY | 2024-06-06 03:28 | XMS_ITS | Encounter Summary ---
Author Organization [facility] Healthcare Address [address] [place] [address] Care Team Providers Care Distribution Dispatcher Name Role Phone Hemant Lopez MD Primary Care Provider [phone]- [phone] Encounter Details Date Type Department Care Team (Latest Contact Info) Description 03/20/2021 4:30 PM CDT - 03/20/2021 11:59 PM CDT Hospital Encounter [facility] Diagnostic Imaging [address] [place] [address] Discharge Disposition: Discharge to home or self care Social History Tobacco Use Types Packs/Day Years Used Date Smoking Tobacco: Every Day Sex and Gender Information Value Date Recorded Sex Assigned at Not on file 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 ??Endotracheal tube nasogastric tube, [place]-Belle catheter left thoracostomy tube and mediastinal drain [...] normal heart size. Endotracheal tube nasogastric tube, [place]-Belle catheter left thoracostomy tube and mediastinal drain in satisfactory position. No pneumothorax or failure. COPD suspected. IMPRESSION: Expected postsurgical changes. No pneumothorax or failure. Electronically signed by: Neftali Kaminski M.D. Malathi Curry MD IMG XR PROCEDURES Final Result documented in this encounter Visit Diagnoses Not on filedocumented in this encounter Care Teams Distribution Dispatcher Relationship Specialty Start Date End Date Hemant Lopez MD PCP - General 03/20/21 03/20/21 documented as of this encounter
--- OUTSIDE RECORDS SUMMARY | 2024-06-06 03:28 | XMS_ITS | Encounter Summary ---
Author Organization [facility] Healthcare Address [address] [place] [address] Care Team Providers Care Greenhouse Superintendent Name Role Phone Hemant Lopez MD Primary Care Provider [phone]- [phone] Encounter Details Date Type Department Care Team (Latest Contact Info) Description 03/22/2021 4:30 AM CDT - 03/22/2021 11:59 PM CDT Hospital Encounter [facility] [address] [place] [address] Discharge Disposition: Discharge to home or self care Social History Tobacco Use Types Packs/Day Years Used Date Smoking Tobacco: Every Day Sex and Gender Information Value Date Recorded Sex Assigned at Not on file 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 Electronically signed by: Connor Botello 03/22/2021 8:19 AM CDT EXAMINATION: XR CHEST 1 VIEW DATE: 03/22/2021 4:35 AM HISTORY: 55-year-old man cardiac surgery follow-up FINDINGS:Compared with the study of the previous day, [place]-Belle catheter left thoracostomy tube, remain in place. ??Postsurgical changes in the heart and mediastinum without failure fluid infiltrates or pneumothorax. Procedure Note Neftali Kaminski MD - 03/22/2021 EXAMINATION: XR CHEST 1 VIEW DATE: 03/22/2021 4:35 AM HISTORY: 55-year-old man cardiac surgery follow-up FINDINGS:Compared with the study of the previous day, [place]-Belle catheter left thoracostomy tube, remain in place. Postsurgical changes in the heart and mediastinum without failure fluid infiltrates or pneumothorax. IMPRESSION: Stable appearance without pneumothorax or failure. Electronically signed by: Neftali Kaminski M.D. Malathi Curry MD IMG XR PROCEDURES Final Result documented in this encounter Visit Diagnoses Not on filedocumented in this encounter Care Teams Greenhouse Superintendent Relationship Specialty Start Date End Date Hemant Lopez MD PCP - General 03/22/21 documented as of this encounter
--- OUTSIDE RECORDS SUMMARY | 2024-06-06 03:28 | XMS_ITS | Encounter Summary ---
Author Organization [facility] Healthcare Address [address] [place] [address] Care Team Providers Care Road Advisor Name Role Phone Unavailable Primary Care Provider Unavailabl e Encounter Details Date Type Department Care Team (Late st Contact Info) Description 05/27/2018 7:59 PM SSRS REPORT DEVELOPER - 05/27/2018 11:43 PM SSRS REPORT DEVELOPER Hospital Encounter [facility] Babak Lugo MD [address] [facility] [place] [address] Dizziness and giddiness; Acute bronchitis; Cannabis abuse, uncomplicated; Essential (primary) hypertension; Nicotine dependence, uncomplicated; Allergy status to analgesic agent; Other long term care phlebotomist (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 Social History Tobacco Use Types Packs/Day Years Used Date Smoking Tobacco: Never Assessed Sex and Gender Information Value Date Recorded Sex Assigned at Not on file Legal Sex Male 12:12 PM SSRS REPORT DEVELOPER Gender Identity Not on file Sexual Orientation Not on file documented as of this encounter Last Filed Vital Signs Vital Sign Reading Time Taken Comments Blood Pressure 147/99 05/27/2018 8:06 PM SSRS REPORT DEVELOPER Pulse 98 05/27/2018 8:06 PM SSRS REPORT DEVELOPER Temperature 36.3 ??C (97.4 ??F) 05/27/2018 8:06 PM CS T Respiratory Rate - - Oxygen Saturation 99% 05/27/2018 8:06 PM SSRS REPORT DEVELOPER Inhaled Oxygen Concentration - - Weight 70 kg (154 lb 5.2 oz) 05/27/2018 8:06 PM SSRS REPORT DEVELOPER Height 175.3 cm (5' 9 ) 05/27/2018 8:06 PM SSRS REPORT DEVELOPER Body Mass Index 22.79 05/27/2018 8:06 PM SSRS REPORT DEVELOPER documented in this encounter Plan of Treatment Not on file documented as of this encounter Procedures Procedure Name Priority Date/Time Associated Diagnosis Comments URINALYSIS AND REFLEX TO MICROSCOPIC AND CULTURE Routine 05/27/2018 10:54 PM SSRS REPORT DEVELOPER DRUGS OF ABUSE SCREEN, URINE WITHOUT CONFIRMATION Routine 05/27/2018 10:28 PM SSRS REPORT DEVELOPER APTT Routine 05/27/2018 10:25 PM SSRS REPORT DEVELOPER PROTIME-INR Routine 05/27/2018 10:25 PM SSRS REPORT DEVELOPER CBC WITH AUTO DIFFERENTIAL Routine 05/27/2018 9:35 PM SSRS REPORT DEVELOPER ETHANOL Routine 05/27/2018 9:35 PM SSRS REPORT DEVELOPER COMPREHENSIVE METABOLIC PANEL Routine 05/27/2018 9:[address] STROKE PROTOCOL WO CONTRAST Routine 05/27/2018 12:00 AM SSRS REPORT DEVELOPER XR CHEST 1 VIEW Routine 05/27/2018 12:00 AM SSRS REPORT DEVELOPER documented in this encounter Results * (ABNORMAL) Urinalysis reflex to microscopic and culture (05/27/2018 10:54 PM SSRS REPORT DEVELOPER) Ur Collection Type CLEAN CATCH 05/27/2018 11:08 PM [facility] [employer] HISTORICAL RESULTS Ur Culture Indicated? C&S NOT INDICATED 05/27/2018 11:08 PM [facility] [employer] HISTORICAL RESULTS Urine Color YELLOW YELLOW 05/27/2018 11:08 PM [facility] [employer] HISTORICAL RESULTS Urine Clarity Slightly-Do udy CLEAR 05/27/2018 11:08 PM [facility] [employer] HISTORICAL RESULTS Urine Glucose (UA) NORMAL NORMAL mg/dL 05/27/2018 11:08 PM [facility] [employer] HISTORICAL RESULTS Urine Bilirubin NEGATIVE NEGATIVE mg/dl 05/27/2018 11:08 PM [facility] [employer] HISTORICAL RESULTS Urine Ketones NEGATIVE NEGATIVE mg/dL 05/27/2018 11:08 PM [facility] [employer] HISTORICAL RESULTS Ur Specific [place] 1.017 1.005 - 1.025 Urine Blood NEGATIVE NEGATIVE mg/dl Urine pH 5.0 5.0 - 8.0 Urine Protein 100(H) NEGATIVE mg/dL Urine Urobilinogen NORMAL NORMAL mg/dL Urine Nitrite NEGATIVE NEGATIVE Ur Leukocyte Esterase NEGATIVE NEGATIVE Natalio/ul Ur Microscopic Review Indicated or Ordered Urine RBC 1 0 - 2 /HPF Urine WBC 4 0 - 2 /HPF Urine Mucus RARE /LPF Ur Squamous Epith Cells Rare /HPF Hyaline Casts 7 0 - 2 /LPF 05/27/2018 10:5 4 PM SSRS REPORT DEVELOPER 05/27/2018 10:59 PM SSRS REPORT DEVELOPER Narrative [facility] HISTORICAL RESULTS - 05/27/2018 11:08 PM SSRS REPORT DEVELOPER Indication(s) for ordering ? Delirium/malaise/lethargy ?? us Babak De La Rosa MD LAB MICROBIOLOGY - GENERAL ORDERABLES Final Result [facility] HISTORICAL RESULTS * (ABNORMAL) Drug Screen, Urine (05/27/2018 10:28 PM SSRS REPORT DEVELOPER) Ur Amphetamine Screen NEGATIVE NEGATIVE Comment: Cutoff Limit: ??1000 ng/mL ??Detects MDMA, MDA, d-Amphetamine, d-Methamphetamine, ?MBDB-HCl, MDEA and BDB-HCl Note: ??Positive results from this drug screen are unconfirmed. ??Unconfirmed screening results should not be used for non-medical purposes. Ur Barbiturates Screen NEGATIVE NEGATIVE Comment: Cutoff limit: ??200 ng/mL ??Detects Secobarbitol, Cyclopentobarbital, Aprobarbital, ?Butalbital, Allobarbital, Butabarbital, ?Pentobarbital, Amobarbital and Phenobarbital U Benzodiazepines Scrn NEGATIVE NEGATIVE Comment:Cutoff limit: 300 ng /mL U Cannabinoids Screen POSITIVE(H) NEGATIVE Comment: RESULT CALLED at: 230305/27/18 by: [id number] to: ZAK [id number] ?? CONFIRMATION on Positive result requested:N Cutoff Limit: 50 ng/mL U Cocaine Metab Screen POSITIVE(H) NEGATIVE Comment: RESULT CALLED at: 230305/27/18 by: [id number] to: ZAK [id number] ?? CONFIRMATION on Positive result requested:N Cutoff limit: ??300 ng/mL Urine Opiates Screen NEGATIVE NEGATIVE Comment: Cutoff Limit: ??300 ng/mL Detects Morphine, Codeine, Ethyl Morphine, ?Diacetylmorphine, 6-Acetylmorphine, Dihydrocodeine, ?Ejovggsa-1-wnzptcwiebp and Hydrocodone Ur Oxycodone Screen NEGATIVE NEGATIVE Comment:Cutoff Limit: 100 ng /mL Urine Creatinine/JE 182.0 mg/dL Comment:If Creatinine is < 4 0 mg/dL, recollection is suggested. 05/27/2018 10:2 8 PM SSRS REPORT DEVELOPER 05/27/2018 10:33 PM SSRS REPORT DEVELOPER Narrative [facility] HISTORICAL RESULTS - 05/27/2018 11:00 PM SSRS REPORT DEVELOPER Collected By jh us Babak De La Rosa MD LAB URINE ORDERABLES Final Result Performing Organization Address [facility] Phone Number [facility] HISTORICAL RESULTS * (ABNORMAL) aPTT (05/27/2018 10:25 PM SSRS REPORT DEVELOPER) APTT 21(L) 26 - 33 SECONDS 05/27/2018 10:2 5 PM SSRS REPORT DEVELOPER 05/27/2018 10:27 PM SSRS REPORT DEVELOPER us Babak De La Rosa MD LAB BLOOD ORDERABLES Final Result Performing Organization Address [facility] Phone Number [facility] HISTORICAL RESULTS * Protime-INR (05/27/2018 10:25 PM SSRS REPORT DEVELOPER) PT 12.5 11.8 - 14.5 SECONDS INR 0.94 Comment: Recommended Therapeutic range for Oral Anticoagulant Therapy No anti-coagulation therapy ? Normal Range: ?0.8-1.4 Anti-coagulation therapy ? Low intensity therapy ?2.0-3.0 ? High intensity therapy ?? 2.5-3.5 Critical Value ? Greater than or equal to 5.0 Patients should be monitored for serious bleeding. ?? 05/27/2018 10:2 5 PM SSRS REPORT DEVELOPER 05/27/2018 10:27 PM SSRS REPORT DEVELOPER us Babak De La Rosa MD LAB BLOOD ORDERABLES Final Result Performing Organization Address [facility]/ZIP Co de Phone Number [facility] HISTORICAL RESULTS * (ABNORMAL) Comprehensive metabolic panel (05/27/2018 9:35 PM SSRS REPORT DEVELOPER) Sodium 134(L) 135 - 145 mmol/L Potassium 4.1 3.3 - 5.1 mmol/L Chloride 99 96 - 108 mmol/L Carbon Dioxide 22 22 - 32 mmol/L Anion Gap 13 7 - 16 Glucose 109(H) 70 - 100 mg/dL BUN 11 6 - 20 mg/dL Creatinine 1.2 0.5 - 1.3 mg/dL Comment: NOTE: Estimated GFR (Cockroft-Gault) will NOT be calculated unless patient Height and Weight were entered. Also, Kidney Disease Stage (GFR) and Estimated GFR (Cockroft-Gault) will NOT be calculated if Creatinine result is <0.2. Kidney Disease Stage 82 mL/MIN Comment: NOTE; ??The GFR is an estimated [...] or on dialysis @ Est GFR (Cockcroft-G) 71 ml/MIN Comment: Estimated GFR(Cockroft-Gault)is used to calculate patient medication dosage Calcium 9.2 8.6 - 10.0 mg/dL Total Protein 7.9 6.4 - 8.3 g/dL Albumin 4.2 3.5 - 5.2 g/dL Globulin 3.7(H) 2.3 - 3.5 gm/dL Albumin/Globulin Ratio 1.1 1.1 - 1.8 Total Bilirubin 0.3 0.0 - 1.2 mg/dL AST 20 0 - 40 U/L ALT 16 0 - 41 U/L Alkaline Phosphatase 111 40 - 129 U/L 05/27/2018 9:35 PM SSRS REPORT DEVELOPER 05/27/2018 9:39 PM SSRS REPORT DEVELOPER Narrative [facility] HISTORICAL RESULTS - 05/27/2018 10:02 PM SSRS REPORT DEVELOPER Comment Glucose, blood, POC us Babak De La Rosa MD LAB BLOOD ORDERABLES Final Result [facility] HISTORICAL RESULTS * (ABNORMAL) CBC with auto differential (05/27/2018 9:35 PM SSRS REPORT DEVELOPER) WBC 15.3(H) 3.8 - 9.9 X10 3/ul RBC 4.54 4.30 - 5.80 x10 6/ul Hemoglobin 14.1 13.0 - 17.5 g/dL Hct 42.9 38.9 - 50.3 % MCV 94.5 81.3 - 96.4 fl MCH 31.1 27.1 - 33.3 pg MCHC 32.9 32.3 - 35.7 g/dl 05/27/2018 9:42 PM [facility] RDW 14.3 11.1 - 14.9 % Plt Count 322 150 - 400 x10 3/ul MPV 7.8(L) 9.1 - 12.3 fl Neut % 87.8 % Immature Gran % 0.4 % 9 9:42 PM [facility] HISTORICAL RESULTS Lymph % 7.1 % Stewart % 4.4 % Eos % 0.1 % Baso % 0.2 % Absolute Neuts (auto) 13.5(H) 1.7 - 6.5 x10 3/ul Immature Gran # 0.1 0.0 - 0.1 x10 3/ul Absolute Lymphs (auto) 1.1 0.8 - 3.3 x10 3/ul Absolute Monos (auto) 0.7 0.2 - 0.8 x10 3/ul Absolute Eos (auto) 0.0 0.0 - 0.5 x10 3/ul Absolute Basos (auto) 0.0 0.0 - 0.1 x10 3/ul Nucleat RBC Rel Count 0.0 #/100WBC Absolute Nucleated RBC 0.00 0.00 - 0.01 x10 3/ul Absolute Neutrophils 76853(H) 200 - 8000 /ul 05/27/2018 9:35 PM SSRS REPORT DEVELOPER 05/27/2018 9:39 PM SSRS REPORT DEVELOPER Babak De La Rosa MD LAB BLOOD ORDERABLES Final Result [facility] HISTORICAL RESULTS * Ethanol (05/27/2018 9:35 PM SSRS REPORT DEVELOPER) Ethyl Alcohol < 10 mg/dL Comment:% = mg/dL x .001 05/27/2018 9:35 PM SSRS REPORT DEVELOPER 05/27/2018 9:39 PM SSRS REPORT DEVELOPER Narrative [facility] HISTORICAL RESULTS - 05/27/2018 10:02 PM SSRS REPORT DEVELOPER Comment Glucose, blood, POC Babak De La Rosa MD LAB BLOOD ORDERABLES Final Result [facility] HISTORICAL RESULTS * CT Stroke Head WO Contrast (05/27/2018 12:00 AM SSRS REPORT DEVELOPER) Anatomical Region Laterality Modality Head N/A Computed Tomogra phy 05/27/2018 Impressions 05/27/2018 8:17 PM SSRS REPORT DEVELOPER ??Bilateral exotropia. ??No acute intracranial abnormalities. THIS IS AN ELECTRONICALLY VERIFIED FINAL REPORT 05/27/2018 8:14 PM - Electronically signed by Myron SUÁREZ D: ??05/27/2018 8:14 PM T: Report ID: [id number] Reading Location: ??[id number] [EOD] Narrative 05/27/2018 8:17 PM SSRS REPORT DEVELOPER EXAM DESCRIPTION: ??CT head without IV contrast REASON FOR STUDY: ??Visual disturbance lowered speech sudden-onset today TECHNIQUE: ??Axial images acquired through the brain without intravenous contrast. ??Images stored on PACS. Automated exposure control was used as a dose optimization technique for this examination. COMPARISON: ??None FINDINGS: Brain parenchyma is normal. ??Cavum septum pellucidum is incidentally noted. ?? No intracranial hemorrhages or ischemic changes. ??Both eyes deviated laterally or extropia. The brain parenchyma is without ischemic changes.. Procedure Note Provider, MD David - 10/10/2020 EXAM DESCRIPTION: CT head without IV contrast REASON FOR STUDY: Visual disturbance lowered speech sudden-onset today TECHNIQUE: Axial images acquired through the brain without intravenous contrast. Images stored on PACS. Automated exposure control was used as a dose optimization technique for this examination. COMPARISON: None FINDINGS: Brain parenchyma is normal. Cavum septum pellucidum is incidentallynoted. No intracranial hemorrhages or ischemic changes. Both eyes deviatedlaterally or extropia. The brain parenchyma is without ischemic changes.. IMPRESSION: Bilateral exotropia. No acute intracranial abnormalities. THIS IS AN ELECTRONICALLY VERIFIED FINAL REPORT 05/27/2018 8:14 PM - Electronically signed by Myron SUÁREZ T: Report ID: [id number] Reading Location: [id number] [EOD] us Babak De La Rosa MD IMG CT PROCEDURES Final Re sult * XR Chest 1 View (05/27/2018 12:00 AM SSRS REPORT DEVELOPER) Anatomical Region Laterality Modality Body, Chest N/A Radiographic Annita ging 05/27/2018 Impressions 05/27/2018 9:09 PM SSRS REPORT DEVELOPER ??No radiographic evidence of an acute cardiopulmonary process. THIS IS AN ELECTRONICALLY VERIFIED FINAL REPORT 05/27/2018 9:06 PM - Electronically signed by Duane Muro M.D. AT D: ??05/27/2018 9:06 PM T: Report ID: [id number] Reading Location: ??[id number] [EOD] Narrative 05/27/2018 9:09 PM SSRS REPORT DEVELOPER EXAM DESCRIPTION: ??Chest 1 View Portable REASON FOR STUDY: ??Slurred speech, confusion and Lightheadedness today. TECHNIQUE: ??Frontal radiographic view of the chest acquired. COMPARISON: ??Obstructive series 04/02/2017 FINDINGS: LUNGS/PLEURA: Lungs appear normally expanded. ??There is no consolidation, pneumothorax, or large pleural effusion. ??Stable nodule within the right midlung region likely relates to a granuloma. HEART/MEDIASTINUM: Heart is within normal limits in size. ??Trachea is midline. HARDWARE/LINES/TUBES: None. BONES: No acute findings. OTHER: No other significant finding. Procedure Note Provider, MD David - 10/10/2020 EXAM DESCRIPTION: Chest 1 View Portable REASON FOR STUDY: Slurred speech, confusion and Lightheadedness today. TECHNIQUE: Frontal radiographic view of the chest acquired. COMPARISON: Obstructive series 04/02/2017 FINDINGS: LUNGS/PLEURA: Lungs appear normally expanded. There is no consolidation, pneumothorax, or large pleural effusion. Stable nodule within the right midlung region likely relates to a granuloma. HEART/MEDIASTINUM: Heart is within normal limits in size. Trachea ismidline. HARDWARE/LINES/TUBES: None. BONES: No acute findings. OTHER: No other significant finding. IMPRESSION: No radiographic evidence of an acute cardiopulmonaryprocess. THIS IS AN ELECTRONICALLY VERIFIED FINAL REPORT 05/27/2018 9:06 PM - Electronically signed by Duane Muro M.D. AT T: Report ID: [id number] Reading Location: [id number] [EOD] Babak De La Rosa MD IMG XR PROCEDURES Final Re sult documented in this encounter Visit Diagnoses Diagnosis Dizziness and giddiness Acute bronchitis Cannabis abuse, uncomplicated Essential (primary) hypertension Unspecified essential hypertension Nicotine dependence, uncomplicated Allergy status to analgesic agent Other chcf (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 documented in this encounter
--- OUTSIDE RECORDS SUMMARY | 2024-06-06 03:28 | XMS_ITS | Encounter Summary ---
Author Organization [facility] Healthcare Address [address] [place] [address] Care Team Providers Care Apparatus Repair Mechanic Name Role Phone Hemant Lopez MD Primary Care Provider [phone]- [phone] Encounter Details Date Type Department Care Team (Latest Contact Info) Description 03/24/2021 4:01 AM CDT - 03/24/2021 11:59 PM CDT Hospital Encounter 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 Electronically signed by: Connor Engle 03/24/2021 8:31 AM CDT Examination: XR CHEST [...] disease. Electronically signed by: Analia Goncalves M.D. [facility] MD IMG XR PROCEDURES Final Result documented in this encounter Visit Diagnoses Not on filedocumented in this encounter Care Teams Apparatus Repair Mechanic Relationship Specialty Start Date End Date Hemant Lopez MD PCP - General 03/22/21 documented as of this encounter
--- OUTSIDE RECORDS SUMMARY | 2024-06-06 03:28 | XMS_ITS | Encounter Summary ---
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 Name Role Phone No, Physician Primary Care Provider [phone] Kim Rodrigues NP Primary Care Provider [phone] Hemant Lopez MD Primary Care Provider [phone] Kim Rodrigues NP Primary Care Provider [phone] Hemant Lopez MD Primary Care Provider [phone] Hemant Lopez MD Primary Care Provider [phone] Encounter Details Date Type Department Care Team (Latest Contact Info) Description 03/16/2021 7:46 AM CDT - 03/25/2021 1:19 PM CDT Hospital Encounter [facility] [address] [place] [address] Wilbur Elliott MD [address] [place] [address] Malathi Curry MD [address] [facility] [id number] [place] [address] [place] [address] [place] [address] Coronary artery disease involving [place] coronary artery of [place] heart without angina pectoris (Primary Dx) Discharge Disposition: Discharge to home, home health skilled care Social History Tobacco Use Types Packs/Day Years Used Date Smoking Tobacco: Every Day Sex and Gender Information Value Date Recorded Sex Assigned at Not on file Legal Sex Male 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 Gender Identity Not on file Sexual Orientation Not on file documented as of this encounter Last Filed Vital Signs Vital Sign Reading Time Taken Comments Blood Pressure 120/79 03/25/2021 7:58 AM CDT Pulse 114 03/25/2021 12:00 PM CDT Temperature 37.2 ??C (98.9 ??F) 03/25/2021 7:58 AM CD T Respiratory Rate 18 03/25/2021 7:58 AM CDT Oxygen Saturation 92% 03/25/2021 7:58 AM CDT Inhaled Oxygen Concentration - - Weight 70.3 kg (154 lb 15.7 oz) 03/22/2021 1:35 AM CDT Height 170.2 cm (5' 7.01 ) 03/21/2021 1:43 PM CD T Body Mass Index 24.27 03/21/2021 1:43 PM CDT documented in this encounter Discharge Diagnoses Diagnosis Atherosclerotic heart disease of [place] coronary artery with unstable angina pectoris (CMS/HCC) (HCC) - ATHEROSCLEROTIC HEART DISEASE OF [place] CORONARY ARTERY WITH UNSTABLE ANGINA PECTORIS Crohn's disease of large intestine without complications (HCC) - CROHN'S DISEASE OF LARGE INTESTINE WITHOUT COMPLICATIONS Essential (primary) hypertension - ESSENTIAL (PRIMARY) HYPERTENSION Unspecified essential hypertension Chronic obstructive pulmonary disease, unspecified (HCC) - CHRONIC OBSTRUCTIVE PULMONARY DISEASE, UNSPECIFIED Hyperlipidemia, unspecified - HYPERLIPIDEMIA, UNSPECIFIED Nicotine dependence, cigarettes, uncomplicated - NICOTINE DEPENDENCE, CIGARETTES, UNCOMPLICATED Acquired absence of other specified parts of digestive tract - ACQUIRED ABSENCE OF OTHER SPECIFIED PARTS OF DIGESTIVE TRACT Personal history of (healed) traumatic fracture - PERSONAL HISTORY OF (HEALED) TRAUMATIC FRACTURE 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 Arrangements were made for home health nurse [...] spouse. Signed: Gina Anne NP Cardiothoracic Surgery [facility] [phone] 11:54 PM Cosigned by Antelmo Proctor MD at 04/26/2021 2:55 PM LIBRARY CIRCULATION TECHNICIAN ARY CIRCULATION TECHNICIAN ARY CIRCULATION TECHNICIAN documented in this encounter Discharge Instructions * [...] every year in the fall. ?? 2017 [employer] Information is for End User's use only and may not be sold, redistributed or otherwise used for commercial purposes. All illustrations and images included in CareNotes?? are the copyrighted property of [employer]. or [employer]. The above information is an in home aide only. It is not intended as medical [...] foods,deli meats, sausage, victor, and gravies/sauces. Call [phone] to speak with a dietitian about any diet related concerns. Recommend to follow up with outpatient nutrition counseling, ask your doctor for a referral and call [phone] to make an appointment. documented in this [...] Progress Notes * Gina Anne, DOMINIC - 03/25/2021 12:30 PM CDT Cardiothoracic Surgery [...] General: Skin is warm. Comments: Sternum steristripped JATINDER Saph site IN HOME AIDE Neurological: General: No focal deficit present. Mental [...] Plan: Principal Problem: Coronary artery disease involving [place] heart without angina pectoris Secondary Problems: COPD [...] prophylaxis: Lovenox (hold for wires), Pepcid Consults: [facility] Discharge Planning: Home with and HHRN today. Gina Anne NP Cardiothoracic Surgery [facility] Office: 03/25/2021 12:30 PM * Wilbur [...] -breathing is stable ?? Wilbur Elliott MD, [facility] 03/25/2021 10:54 AM * Gina Anne NP - 03/24/2021 10:42 AM CDT Cardiothoracic Surgery Progress Note Jeanie Cali 1965 Hospital DAY#8 Subjective: Patient resting [...] line Labs: Reviewed Recent Labs Lab Units 03/24/2174303/23/2145003/22/21 0358 WBC K/cumm 4.3 3.9 7.6 HEMOGLOBIN g/dL 8.3* 8.7* 7.9* HEMATOCRIT % 26.0* 26.0* 23.3* PLATELETS K/cumm 201 150 102* Recent Labs Lab Units 03/24/2174303/23/2145003/22/21 0358 SODIUM mmol/L 136 135 135 POTASSIUM PLASMA mmol/L 3.8 4.7 3.9 CHLORIDE mmol/L 99 97 99 CO2 mmol/L 27 28 26 BUN SERUM mg/dL 15 15 8 CREATININE mg/dL 1.13 1.30 1.03 CALCIUM mg/dL 8.6 8.6 8.6 MAGNESIUM mg/dL 1.9 1.8 1.9 Recent Labs Lab Units 03/24/2144 03/20/21 1634 03/20/21 0625 PROTIME (PT) sec [...] Plan: Principal Problem: Coronary artery disease involving [place] heart without angina pectoris Secondary Problems: COPD [...] prophylaxis: Lovenox (hold for wires), Pepcid Consults: [facility] Discharge Planning: central supply worker notified, likely home with and HHRN tomorrow. Gina Anne NP Cardiothoracic Surgery [facility] Office: 03/24/2021 10:42 AM * Gina Anne NP - 03/24/2021 10:07 AM CDT Atrial and ventricular pacing clipped due to tension. VSS. Telemetry: No distress noted. Patient instructed to remain on bedrest for one hour and notify the nurse if shortness of breath or chest paindevelops. Please reach out with any questions or concerns. Gina Bedolla NP Cardiothoracic Surgery [facility] Office: 110:07 AM * Carmelina Vu PTA - 03/23/2021 1:40 PM CDT Physical Therapy PT PROGRESS NOTE Jeaniealvarez Cali 55 y.o. 1965 Past Medical History: Diagnosis Date ??? COPD (chronic obstructive pulmonary disease) (CMS/HCC) ([facility]) ??? Crohn's colitis (CMS/HCC) ([facility]) ??? Hyperlipidemia ??? Hypertension ??? Tobacco abuse No past surgical history on file. Patient Active Problem List Diagnosis ??? Coronary artery disease involving [place] heart without angina pectoris TIME IN: 1340 [...] line Labs: Reviewed Recent Labs Lab Units 03/23/2145003/22/2135703/21/21 1337 WBC K/cumm 3.9 7.6 8.6 HEMOGLOBIN g/dL 8.7* 7.9* 8.5* HEMATOCRIT % 26.0* 23.3* 25.1* PLATELETS K/cumm 150 102* 110* Recent Labs Lab Units 03/23/2145003/22/218 03/21/21 1337 SODIUM mmol/L 135 135 135 [...] sodium chloride 0.9%, 0.5-20 mL, intra-catheter, Q8H [facility] Transferred to : 03/22/21 Assessment and Plan: Principal Problem: Coronary artery disease involving [place] heart without angina pectoris Secondary Problems: COPD [...] prophylaxis: Lovenox (hold for wires), Pepcid Consults: [facility] Discharge Planning: central supply worker notified, likely home with and HHRN over the weekend Stevie Vicente NP Cardiothoracic Surgery [facility] Office: 03/23/2021 12:21 PM Cosigned by Malathi [...] with associated SOB and diaphoresis. Cath at [facility] showed multiple vessel disease and was transferred [...] (Active) Placement Date: 03/20/21 Inserted by: Dr. Ray Tube Number A: A Chest Tube Location [...] 0659 03/22/21 0700 - 03/23/21 0659 Shift 0122-1075 2360-2581 24 Hour Total 7511-2517 1160-6500 24 Hour Total INTAKE P.O. 559 725 7718 460 460 I.V.(mL/kg) 482(6.8) 337(4.8) 819(11.7) Shift [...] plavix - dc swan - statin - [place] sinus rhythm Pulmonary: - 2L NC - pulm hygiene GI: Diet: tolerating - Dietitian following PUD PPx: n/a Bowel regimen: miralax, pericolace Endo: SSI Renal: Lasix today Heme: DVT PPX: SCD's ID: periop abx ICU standards of care: Goals of care: Full code Denis Reeder MD EM-Critical Care Fellow [phone] Cosigned by Haroldo Rivas MD at 03/24/2021 [...] Position: Pulse: 113 117 123 114 Resp: 21 23 22 14 Temp: TempSrc: SpO2: 98% 93% 91% [...] is stable ?? Stephen Allen MD, MSN, ANP-[facility] 03/22/2021 11:36 AM * Gina Mayer, OT - 03/22/2021 8:55 AM CDT Occupational Therapy NOTE / SESSION TYPE: Initial Evaluation Patient Name: Jeanie Cali Date of : 1965 Age / Sex: 55 y.o. / male Room: [place] [address] Admit Date: 03/16/2021 Date of Service: 03/22/21 Time In: 845 Time Out: 916 Primary Diagnosis: Coronary artery disease involving [place] heart without angina pectoris HPI: Jeanie Cali is a 55 y.o. male who presents with chest pain, shortness of breath, diaphoresis. 03/20 s/p CABG X 2 ANDERSON TO LAD, SVG TO DIAGONAL, extubated 03/20 Notable History: CAD, HTN, COPD Past Medical History: Diagnosis Date ??? COPD (chronic obstructive pulmonary disease) (CMS/HCC) ([facility]) ??? Crohn's colitis (CMS/HCC) ([facility]) ??? Hyperlipidemia ??? Hypertension ??? Tobacco abuse No past surgical history on file. Precautions (Including Weight-Bearing): Fall risk and Sternal precautions Caregiver Present for Session (Yes or No): No SUBJECTIVE: Patient Comment: I have COPD, so I'm always a little short of breath. 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 Dagoberto Dunn [address] [place] [address]. Number of trialto learning (1) max 3 [...] I asked you to remember. Dagoberto Dunn [address] [place] [address]. [x] Dagoberto [x] Shaun [x]42 [x][facility] [x]Tyndall 5 0 2 0 A weighted error score of 9 or greater indicates a need for further assessment. Total Weighted Error Score = 2 (a) Scoring 0 = No errors, 1 = 1 error, 2 = 2 or more errors, (b) An answer of either [facility] or [facility] is acceptable. UE ROM / Strength [...] 5/5 COMPOSITE FINGER FLEX Hand Dominance: Right Grain Trader Strength (Right) NORMAL Grain Trader Strength (Left): NORMAL Right Coordination / Sensation: [...] Pacing: -- Cardiac Rhythm: Normal sinus rhythm (03/22 400) Pacer Mode: VVI (03/22) Wt Readings from Last 3 Encounters: 03/22/21 [...] IV and midline Recent Labs Lab Units 03/22/2135703/21/21133603/21/21358 WBC K/cumm 7.6 8.6 7.4 HEMOGLOBIN g/dL 7.9* 8.5* 8.0* HEMATOCRIT % 23.3* 25.1* 23.9* PLATELETS K/cumm 102* 110* 103* Recent Labs Lab Units 03/22/2135703/21/21133603/21/21358 SODIUM mmol/L 135 135 139 POTASSIUM PLASMA [...] place Assessment and Plan: 55 y.o. male wuith hx of COPD, crohn's HL, HTN who [...] today, dc imani Roberts MD Cardiothoracic Surgery [facility] * Denis Reeder MD - 03/21/2021 2:02 PM CDT Images from the original note were not included. Critical Care Medicine Daily Progress Team: pink Interval History: ROLY overnight. 0.02 levophed. HPI Patient is a 55 y.o. male with history of HTN, COPD, Crohn's Disease, and tobacco abuse that presented with pressure like chest pain with associated SOB and diaphoresis. Cath at [facility] showed multiple vessel disease and was transferred [...] 90 % Max: 100 % LDA: Introducer 10/26/21 Right Internal jugular (Active) Placement Date/Time: 03/20/21 [...] H2O): [5 cm H20] 5 cm H20 NJ SUP: [5 cm H20] 5 cm H20 NJ SUP: [5 cm H20] 5 cm H20 MAP (cmH2O): [7.2-12] 7.6 I/O: Date 03/20/21 07 - 03/21/21 0659 03/21/21699 - 03/22/21 0659 Shift 8638-1287 5757-3206 24 Hour Total 9531-5797 9596-9680 24 Hour Total INTAKE P.O. 270 270 240 240 I.V.(mL/kg) 2120(32.1) 799(11.2) 2919(40.9) NG/GT 50 50 IV Piggyback 2625 50 2675 Shift Total(mL/kg) 4745(71.9) 1169(16.4) 5914(82.8) 240(3.4) 240(3.4) OUTPUT Urine(mL/kg/hr) 2220(2.8) 1470(1.7) 3690(2.2) 600 600 Emesis/NG output 50 50 Chest Tube 210 340 550 60 60 Shift Total(mL/kg) 2430(36.8) 1860(26.1) 4290(60.1) 660(9.2) 660(9.2) NET 2153 -486 1624 -420 -420 Weight (kg) 66 71.4 71.4 71.4 [...] ASA - plavix today - statin - [place] sinus rhythm Pulmonary: - 2L NC - pulm hygiene GI: Diet: tolerating - Dietitian following PUD PPx: n/a Bowel regimen: miralax, pericolace Endo: SSI Renal: UOP adequate FBG even to neg Heme: DVT PPX: SCD's ID: periop abx ICU standards of care: Goals of care: Full code Denis Reeder MD EM-Critical Care Fellow [phone] Cosigned by Bob Mcclure MD at 03/21/2021 [...] is stable ?? Stephen Allen MD, MSN, ANP-[facility] 03/21/2021 10:54 AM * Kari Hewitt, PT - 03/21/2021 8:22 AM CDT Physical Therapy INITIAL EVALUATION PATIENT'S NAME:Jeanie Cali :1965 AGE:55 y.o. TIME IN:08 TIME OUT:0905 CURRENT DIAGNOSIS AND HOSPITAL COURSE: Chest pain with SOB and diaphoresis. Presents to CVU with CAD s/p CABG x2 ANDERSON to LAD and SVG to diag. Extubated on 03/20/21. Notable Hx: HTN, COPD, Crohn's disease, tobacco abuse. Patient Active Problem List Diagnosis ??? 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 EQUIPMENT [...] I/O last 2 completed shifts: In: 4745 [I.V.:2120; IV Piggyback:2625] Out: 2630 [Urine:2420; Chest Tube:210] [...] and midline Recent Labs Lab Units 03/21/2135803/20/21200303/20/21 163 WBC K/cumm 7.4 11.7* 12.0* HEMOGLOBIN g/dL 8.0* 9.1* 9.6* HEMATOCRIT % 23.9* 26.2* 28.3* PLATELETS K/cumm 103* 112* 111* Recent Labs Lab Units 03/21/21 03503/20/21200303/20/21 1634 SODIUM mmol/L 139 139 140 POTASSIUM [...] place Assessment and Plan: 55 y.o. male wuith hx of COPD, crohn's HL, HTN who [...] Dispo: CVU Janel Roberts MD Cardiothoracic Surgery [facility] * Leo Hewitt, [facility] - 03/20/2021 4:34 PM CDT Pharmacokinetic Consult [...] Discharge Planning Assessment Information Obtained From: Patient (03/19/211119) Admission Source: Direct Admit//transfer from [facility] Impression: CAD Plan Includes: CTS consulted, initiated on heparin drip, CABG today. Primary Source of Transportation: Drives self Health Insurance Coverage: [facility] Medicaid Prescription Coverage: [place] Pharmacy: [address] [place], [place] Primary Care Provider: Kim Rodrigues NP Prior to Admission: Primary Caregiver: Self Support System: Spouse/Significant Other Support system contact info (name, phone, availablity): Dottie Cali, Home Care Services: No Durable Medical Equipment: None Living Arrangements: Spouse/significant other Type of Residence: Private residence Steps in home? : Yes, Outside of home Number of steps outside:: 4 steps (4 front entrance; 7 back entrance) (03/19/21 1120) Potential discharge needs include: Home Health: intermediate (03/19/21 1120) Dialysis: n/a Behavioral Health Services: Behavioral Health Services: No (03/19/21 1120) Patient expects to be Discharged to: Private residence, (03/19/21 1120) Additional Information: CM met with pt & /designated spiritual care coordinator Dottie Cali at bedsideto complete assessment for initial discharge planning. Demographics verified per face sheet. JOYCE email sent: Correct Address: [address] [place] [address]. Correct Cell ph [phone]. Pt lives at home with , independent, drives,works for [employer]. Pt has wheeled walker & standard walker available if needed. Pt would be agreeable to [facility] -- pt aware fpc covered by insurance but would have to private pay for PT/OT if recommended. Pt declined patient choice list & would be agreeable to [facility] or other agency who accepts insurance. [...] access to community resources. NETTIE Le-RN [facility] [phone] * Santosh Perry MD - 03/19/2021 8:49 AM CDT [facility] - Cardiology [facility] Progress Note Admit Date: 03/16/2021 7:46 AM @MAIK@ PCP: No, Physician Patient seen and examined Chart , telemtry reviewed Symptoms Patient denies chest pain, dyspnea, palpitations, sweating or syncope. Data Vitals: 03/18/21 1600 03/18/21201203/18/21 2347 03/19/21 0413 BP: 126/80 135/95 115/78 [...] found for: T3FREE No results found for: [id number] Pain Assessment: No/denies pain Pain Score: 0 [...] Reviewed Recent Labs Lab Units 03/18/21 0541 03/17/213403/16/21 1050 WBC K/cumm 7.5 7.3 7.8 HEMOGLOBIN g/dL 14.2 14.7 15.9 HEMATOCRIT % 45.0 44.4 47.5 PLATELETS K/cumm 259 303 285 Recent Labs Lab Units 03/16/21190103/16/21 1050 SODIUM mmol/L 142 138 POTASSIUM PLASMA mmol/L 4.3 4.8 CHLORIDE mmol/L 101 99 CO2 mmol/L 30 29 BUN SERUM mg/dL 15 9 CREATININE mg/dL 1.44* 1.14 CALCIUM mg/dL 9.0 9.4 MAGNESIUM mg/dL -- 2.1 Recent Labs Lab Units 03/18/21 0541 03/17/21 0610 03/17/21 0035 03/16/21 19003/16/21 1050 PROTIME (PT) sec -- -- -- [...] ECHO/PFTs pending. Stevie Carver NP Cardiothoracic Surgery [facility] Office: 03/18/2021 11:29 AM Cosigned by Malathi [...] per CTS ?? Dayna Cramer NP, MSN, ANP-[facility] 03/18/2021 9:25 AM * [...] 303 285 Recent Labs Lab Units 03/16/21 19003/16/21 1050 SODIUM mmol/L 142 138 POTASSIUM PLASMA [...] ECHO/PFTs pending. Stevie Carver NP Cardiothoracic Surgery [facility] Office: 03/17/2021 11:53 AM Cosigned by Malathi [...] per CTS ?? Dayna Cramer NP, MSN, ANP-[facility] 03/17/2021 10:07 AM Cosigned [...] with associated SOB and diaphoresis. Cath at [facility] showed multiple vessel disease and was transferred for evaluation for CABG. Arrives to ICU intubated following CABG x2 ANDERSON to LAD and SVG to diagonal. Post op HELLEN with mild depression in LV function, trace TR. On milrinone 0.3 and epinephrine 0.04. Backup pacing, 100 sinus natively. Past Medical History: Diagnosis Date ??? COPD (chronic obstructive pulmonary disease) (CMS/HCC) ([facility]) ??? Crohn's colitis (CMS/HCC) ([facility]) ??? Hyperlipidemia ??? Hypertension ??? [...] 0-0.2 mcg/kg/min intravenous Titrated 0.04 mcg/kg/min at 10/26/21 1452 ??? insulin regular 0-30 Units/hr intravenous [...] Source 03/16/21 1300 Monitor Patient Position 03/16/21 0750 Lying BP Location 03/16/21 0750 Right arm [...] care: Restraints: n/a Physical therapy/Activity: n/a Access: RIJohanne PA cath, R radial A line, L fem a line, PIV x1 Other: Goals of care: Full code Denis Reeder MD EM-Critical Care Fellow [phone] Cosigned by Bob Mcclure MD at 03/20/2021 6:14 PM CDT * Mery Walker NP - 03/16/2021 9:48 AM CDT Cardiology History and Physical- [facility] Patient's Primary Care Physician: Angelique, Physician Name: [...] was scheduled for outpt cardiac cath at [facility] that demonstrated LM, LAD and RCA disease with EF 45%. [facility]was transferred to [facility] for CTS evaluation. Pt was transferred on heparin gtt. Pt currently resting in bed, NAD. Denies any CP, SOB, dizziness, palpitations, diaphoresis at present. Past Medical History: Diagnosis Date ??? COPD (chronic obstructive pulmonary disease) ([facility]) ([facility]) ??? Crohn's colitis (CMS/HCC) ([facility]) ??? Hyperlipidemia ??? Hypertension ??? [...] and Family: Not on file ??? Attends Mandaeism Services: Not on file ??? Active Member [...] been listed in the HPI. Exam Vitals: 03/16/2171903/16/21 0750 BP: (!) 152/105 BP Location: Right [...] Oral 77 18 100 % -- -- 03/16/21719 -- -- -- -- -- -- 170.2 [...] DOMINIC Granger. Will obtain cath CD from [facility] -continue heparin gtt. -asa, bb. Will add [...] CTS Plan: will obtain cath CD from [facility] for CTS. I anticipate greater than 2 midnights stay due to management of the issues noted above. Thank you for allowing us to participate in the care of this patient. We will continue to follow. If you have any questions, please don't hesitate to call. Mery Walker NP [facility] 03/16/2021 9:58 AM CC: Cosigned by Stephen Allen MD at 03/16/2021 11:38 AM CDT Associated attestation - Stephen Allen MD - 03/16/2021 11:38 AM CDT Evaluated the patient bedside. Agree with the note. Patient underwent cardiac catheterization at [facility] in concerning for 3 vessel disease left main disease therefore transferred here for CABG evaluation. His chest pain-free currently on heparin drip. Patient is concerned about return to work at high-intensity statin therapy. documented in this encounter Procedure Notes * Haroldo Rivas MD - 03/22/2021 4:12 PM CDTAssociated Order(s): Critical Care Post-Procedure Diagnose(s): Coronary artery disease involving [place] coronary artery of [place] heart without angina pectoris Critical Care Performed by: Haroldo Rivas MD Authorized by: Haroldo Rivas MD CRITICAL CARE: Team: EDMUND Shift: AM Level of Billing: Critical Care [...] plan with the ICU team and other medical/child welfare consultant staff, making frequent assessments and decisions [...] Care Post-Procedure Diagnose(s): Coronary artery disease involving [place] coronary artery of [place] heart without angina pectoris Critical Care Performed by: Trudi Lamb MD Authorized by: Trudi Lamb MD CRITICAL CARE: Team: EDMUND Shift: PM Level of Billing: Critical Care [...] plan with the ICU team and other medical/child welfare consultant staff, making frequent assessments and decisions [...] Instructor, Acute and Critical Care Surgery [facility] [employer] [facility] Office: [phone] Pager: [phone] * Trudi Lamb MD - 03/20/2021 10:10 PM CDTAssociated Order(s): Critical Care Post-Procedure Diagnose(s): Coronary artery disease involving [place] coronary artery of [place] heart without angina pectoris Critical Care Performed by: Trudi Lamb MD Authorized by: Trudi Lamb MD CRITICAL CARE: Team: EDMUND Shift: PM Level of Billing: Critical Care [...] plan with the ICU team and other medical/child welfare consultant staff, making frequent assessments and decisions [...] Instructor, Acute and Critical Care Surgery [facility] [employer] Office: [phone] Pager: [phone] * Jonathan Mcintosh MD - 03/19/2021 12:00 AM CDT The patient is 5 feet 7 inches, 143 pounds. The patient's O2 sat is 97% on room air at rest. Forced vital capacity 2.05 L, 55% of predicted. FEV1 is 1.09, 37% of predicted. FEV1 FVC ratio is 0.53, which is 66% of predicted, significantly decreased. The patient's total lung capacity is 5.74, 90% ofpredicted. Residual volume is 2.94, 148% of predicted, [...] reduced at 79% of predicted. Airway resistance issignificantly increased at 248%. Flow volume loop does not show upper airway limitation. Impression Severe airflow obstruction with gas trapping, severe abnormality in gas transfer as measured by DLCO. Increased airways resistance. The patient is still smoking some, which is bad. Cigarette cessation strongly recommended, long-acting bronchodilators, antimuscarinic as well as beta agonists are recommended Job ID/VF Job ID: [id number] documented in this encounter Consult Notes * Dayna West, RD - 03/21/2021 1:52 PM CDTAssociated Order(s): IP CONSULT TO NUTRITION SERVICES Nutrition Assessment Pt does not currently meet criteria for malnutrition. Subcutaneous Fat Loss Upper Arm Region - Triceps/Biceps: Some depth pinch but not ample Thoracic and Lumbar Region - Ribs, Lower Back, Midaxillary Line: Chest is full, ribs do not show Muscle Loss Yazidism Region - Temporalis Muscle: Slight depression Clavicle [...] issues and GI issues/Crohn's disease. Entering in [employer]. Reports good appetite at home with usual [...] BMI (Calculated): 24.6 3 Day I/O Summary 03/19 1900 - 03/21 0659 In: 5914 [P.O.:270; I.V.:2919] Out: 4490 [Urine:3890] Temp: (PT NOT IN ROOM) Minute Ventilation (L/min): 8.6 L/min Past Medical History: Diagnosis Date ??? COPD (chronic obstructive pulmonary disease) (CMS/HCC) (HCC) ??? Crohn's colitis (CMS/HCC) ([facility]) ??? Hyperlipidemia ??? Hypertension ??? [...] foods,deli meats, sausage, victor, and gravies/sauces. Call [phone] to speak with a dietitian about any diet related concerns. Recommend to follow up with outpatient nutrition counseling, ask your doctor for a referral and call [phone] to make an appointment. Nutrition Follow-Up : 03/27/[address],[place] * Malathi Curry MD - 03/16/2021 10:56 AM CDTAssociated Order(s): IP CONSULT TO CARDIOTHORACIC SURGERY Cardiothoracic Surgery [place] History & Physical [facility] Dr. Antelmo Proctor & Dr. Malathi Cali 1965 Reason for Consult: Coronary Artery Disease [...] he had an episode of chest pain Friday night associated with nausea and diaphoresis. Currently [...] amount of calcification. He was transferred to [facility] for surgical evaluation. He denies lower extremity [...] History ??? 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 Smoking status: [...] work-up. Stevie Carver NP Cardiothoracic Surgery [facility] [phone] :41 PM Malathi Curry MD MPHS Cardiothoracic Surgery [facility] documented in this encounter Miscellaneous Notes [...] Outcome: Progressing * Plan of Care - Rich Squires RN - 03/24/2021 2:37 [...] Outcome: Progressing * Plan of Care - Rich Squires RN - 03/23/2021 6:11 PM CDT Goals: [...] Dottie at bedside to discuss discharge plans. [facility] have accepted & [place] insurance authorized per HIRA Rodriguez (P: [phone], F: [phone]) with SOC 03/26 -- contact info on AVS & HHN order sent via [employer]. Need to send AVS/DC instructions when available. No further CM discharge needs at this time. NETTEI Le-RN [facility] [phone] * Plan of Care - Adilia Fisher RN - 03/23/2021 8:09 AM CDT CM gave handoff report to Brittni LEYVA on 9th Floor. Adilia Fisher MEAT SLICER Bulker [phone] * Plan of Care - Juan Antonio [...] Fisher RN - 03/21/2021 3:07 PM CDT [facility] has accepted patient for home health services with a SOC date of 03/26/21. Information placed in AVS. Adilia Fisher RN BSN Bulker [phone] * Plan of Care - Adilia iFsher RN - 03/21/2021 1:59 PM CDT Home health referrals sent awaiting response. Adilia Fisher MEAT [employer]IC[employer] [phone] * Plan of Care - Roland Coleman [...] to follow-up discharge planning. NETTIE Le-RN [facility] [phone] * Plan of Care - Uday Michael [...] Segovia MSW - 03/21/2021 8:11 AM CDT LIBRARIAN HEAD is completed by CM. CM/ BUNDLE BREAKER will follow pt. When come to 9th [...] 03/20/2021 10:20 PM CDT SBT started at 09/27 40%. This was tolerated well and abg [...] Admit Date: 03/16/2021 SURGEON Malathi Curry MD SKIN CARE TECHNICIAN Aminah Weiner PREOPERATIVE DIAGNOSIS Coronary artery disease [...] MD - Primary Anesthesiologist: Stepan Fuchs MD ANIMAL SCIENCE INSTRUCTOR: Yissel Zamudio CRNA Anesthesiologist Resident Assistant: Mari Treviño AA Gripper Machine Operator: Franc Mcwilliams Alexia L., CCP Manager Garden: Cherri Patton RN Manager Garden Relief: Ron Yoon RN Scrub Relief: Jaye Garrido RN Scrub: Regina Phillips RN; Rupinder Zarco [facility]: Aminah Weiner RN; Crow Ace CRNFA FLOAT: Alla Hong RN; Ron Yoon RN DATE OF SURGERY : 03/20/2021 Preoperative Diagnosis: Pre-op Diagnosis * Coronary artery disease involving [place] heart without angina pectoris, unspecified vessel or lesion type [I25.10] Postoperative Diagnosis: Post-op Diagnosis * Coronary artery disease involving [place] heart without angina pectoris, unspecified vessel or [...] Implant Name Type Inv. Item Serial No. Dental Technician Apprentice Lot No. LRB No. Used Action KLS-KASH LP -[id number] TITANIUM 1.8MM 8 HOLE STERNAL X PLATE BONE MINI STERNOTOMY - [id number] KLS-KASH LP -44 Titanium 1.8mm 8 Hole Sternal X Plate Bone Mini Sternotomy Kls-Kash Lp N/A 3 Implanted KLS-KASH LP DRILL-FREE MAXDRIVE 2.3MM 13MM SELF RETAINING LOCK STERNAL SCREW - [id number] KLS-KASH LP Drill-free Maxdrive 2.3mm 13mm Self Retaining Lock Sternal Screw Kls-Kash Lp N/A 20 Implanted KLS-KASH LP - DRILL-FREE MAXDRIVE 2.3MM 15MM SELF RETAIN STERNAL SCREW BONE - [id number] KLS-KASH LP Drill-free Maxdrive 2.3mm 15mm Self Retain Sternal [...] Associated Diagnoses Date /Time Pulmonary Function Test -[facility]; Complete/Full PFT Routine 03/19/2021 11:13 AM CDT Scheduled Orders Name Type Priority Associated Diagnoses Orde r Schedule Pulmonary Function Test -[facility]; Complete/Full PFT Routine Once for 1 Occur [...] 4:12 PM CDT Coronary artery disease involving [place] coronary artery of [place] heart without angina pectoris XR CHEST 1 VIEW IP Routine 03/22/2021 5:32 AM CDT EGFR Routine 03/22/2021 3:58 AM CDT CBC WITHOUT DIFFERENTIAL Routine 03/22/2021 3:58 AM CDT MAGNESIUM Routine 03/22/2021 3:58 AM CDT RENAL FUNCTION PANEL Routine 03/22/2021 3:58 AM CDT CRITICAL CARE Routine 03/21/2021 8:18 PM CDT Coronary artery disease involving [place] coronary artery of [place] heart without angina pectoris POCT GLUCOSE DEVICE [...] 10:10 PM CDT Coronary artery disease involving [place] coronary artery of [place] heart without angina pectoris POCT GLUCOSE DEVICE Routine 03/20/2021 9 :46 PM CDT BLOOD GAS, ARTERIAL STAT 03/20/2021 9 :39 PM CDT POCT GLUCOSE DEVICE Routine 03/20/2021 9 :01 PM CDT POCT GLUCOSE DEVICE Routine 03/20/2021 8 :08 PM CDT EGFR Timed 03/20/2021 8:04 PM CDT CALCIUM, IONIZED Timed 03/20/2021 8:0 4 PM CDT CBC WITHOUT DIFFERENTIAL Timed 03/20/2021 [...] 11:21 AM CDT Coronary artery disease involving [place] heart without angina pectoris, unspecified vessel or lesion type CORONARY ARTERY BYPASS GRAFT - INTERNAL MAMMARY/SAPHENOUS VEIN GRAFT - LEG 03/20/2021 11:21 AM CDT Coronary artery disease involving [place] heart without angina pectoris, unspecified vessel or [...] * POCT glucose (03/25/2021 7:33 AM CDT) Glucose, POC 98 70 - 199 mg/dL CHRISTINA CARRENO Blood 03/25/2021 7:33 AM CDT 03/25/2021 7:33 AM CDT us Malathi Curry MD LAB POCT ORDERABLES - DEVICE F inal Result CHRISTINA CARRENO [address] Department [place] [address] * XR Chest 1 View - Portable [...] Result * eGFR (03/25/2021 6:58 AM CDT) eGFR 86 mL/min/1.7 3 m2 CHRISTINA CARRENO Comment: Interpretive [...] 6:58 AM CDT 03/25/2021 7:03 AM CDT us Malathi Curry MD LAB BLOOD ORDERABLES Final Res ult [facility] [address] Department [place] [address] * (ABNORMAL) Renal function panel (03/25/2021 6:58 AM CDT) Sodium 134(L) 135 - 145 mmol/L [facility] Potassium, pl 4.0 3.3 - 4.9 mmol/L [facility] Chloride 99 97 - 110 mmol/L [facility] CO2 24 22 - 32 mmol/L [facility] Anion gap 11 2 - 15 mmol/L [facility] BUN 12 8 - 25 mg/dL [facility] Creatinine 0.98 0.80 - 1.30 mg/dL [facility] Glucose 112 70 - 199 mg/dL [facility] Comment: Interpretive Data Fasting glucose [...] MD LAB BLOOD ORDERABLES Final Res ult [facility] [address] Department [place] [address] * (ABNORMAL) CBC without differential (03/25/2021 6:58 AM CDT) WBC 5.2 3.8 - 9.9 K/cumm [facility] Hgb 8.3(L) 13.0 - 17.5 g/dL [facility] CH Hct 25.7(L) 38.9 - 50.3 % [facility] CH Plt 236 150 - 400 K/cumm [facility] MPV 8.6(L) 9.1 - 12.3 fL [facility] RBC 2.61(L) 4.30 - 5.80 M/cumm [facility] MCV 98.5(H) 81.3 - 96.4 fL [facility] MCH 31.8 27.1 - 33.3 pg [facility] MCHC 32.3 32.3 - 35.7 g/dL [facility] CH RDW CV 13.2 11.1 - 14.9 % [facility] CH RDW SD 47.8 35.7 - 48.1 fL [facility] CH NRBC abs 0.00 0.00 - 0.01 K/cumm [facility] CH Blood 03/25/2021 6:58 AM CDT 03/25/2021 7:03 AM CDT Malathi Curry MD LAB BLOOD ORDERABLES Final Res ult Performing Organization Address [facility]/ZIP Co de Phone Number CHRISTINA [address] [facility] [place] [address] * Magnesium (03/25/2021 6:58 AM CDT) Magnesium 1.9 1.4 - 2.5 mg/dL [facility] Blood 03/25/2021 6:58 AM CDT 03/25/2021 7:03 AM CDT Malathi Curry MD LAB BLOOD ORDERABLES Final Res ult Performing Organization Address [facility] Co de Phone Number GRISELLUIZA [address] [facility] [facility] [place] [address] * POCT glucose (03/25/2021 1:51 AM CDT) Glucose, POC 133 70 - 199 mg/dL [facility] Blood 03/25/2021 1:51 AM CDT 03/25/2021 1:51 AM CDT Malathi Curry MD LAB POCT ORDERABLES - DEVICE F inal Result Performing Organization Address [facility] Co de Phone Number GRISELLUIZA [address] [facility] [place] [address] * POCT glucose (03/24/2021 10:33 PM CDT) Glucose, POC 132 70 - 199 mg/dL [facility] Blood 03/24/2021 10:3 3 PM CDT 03/24/2021 10:33 PM CDT Malathi Curry MD LAB POCT ORDERABLES - DEVICE F inal Result Performing Organization Address City/[facility]/ZIP Co de Phone Number [facility] [address] [facility] [facility] [place] [address] * POCT glucose (03/24/2021 6:00 PM CDT) Glucose, POC 94 70 - 199 mg/dL [facility] Blood 03/24/2021 6:00 PM CDT 03/24/2021 6:00 PM CDT Malathi Curry MD LAB POCT ORDERABLES - DEVICE F inal Result Performing Organization Address [facility] Co de Phone Number [facility] [address] [facility] [facility] [place] [address] * POCT glucose (03/24/2021 12:17 PM CDT) Glucose, POC 127 70 - 199 mg/dL [facility] Blood 03/24/2021 12:1 7 PM CDT 03/24/2021 12:17 PM CDT Malathi Curry MD LAB POCT ORDERABLES - DEVICE F inal Result Performing Organization Address [facility] de Phone Number [facility] [address] [facility] [facility] [place] [address] * POCT glucose (03/24/2021 8:30 AM CDT) Glucose, POC 131 70 - 199 mg/dL [facility] Blood 03/24/2021 8:30 AM CDT 03/24/2021 8:30 AM CDT Malathi Curry MD LAB POCT ORDERABLES - DEVICE F inal Result Performing Organization Address [facility] de Phone Number [facility] [address] [facility] [place] [address] * eGFR (03/24/2021 7:44 AM CDT) eGFR 73 mL/min/1.7 3 m2 [facility] Comment: Interpretive Data Reference Interval Normal ?>/= [...] MD LAB BLOOD ORDERABLES Final Res ult [facility] [address] Department [place] [address] * (ABNORMAL) Renal function panel (03/24/2021 7:44 AM CDT) Sodium 136 135 - 145 mmol/L [facility] CH Potassium, pl 3.8 3.3 - 4.9 mmol/L [facility] Chloride 99 97 - 110 mmol/L [facility] CO2 27 22 - 32 mmol/L [facility] Anion gap 10 2 - 15 mmol/L [facility] CH BUN 15 8 - 25 mg/dL [facility] Creatinine 1.13 0.80 - 1.30 mg/dL [facility] Glucose 114 70 - 199 mg/dL [facility] Comment: Interpretive [...] pl 3.8 2.3 - 4.5 mg/dL [facility] CH Albumin 3.4(L) 3.5 - 5.0 g/dL [facility] Blood 03/24/2021 7:44 AM CDT 03/24/2021 8:31 AM CDT Malathi Curry MD LAB BLOOD ORDERABLES Final Res ult [facility] [address] Department [place] [address] * (ABNORMAL) CBC without differential (03/24/2021 7:44 AM CDT) WBC 4.3 3.8 - 9.9 K/cumm [facility] Hgb 8.3(L) 13.0 - 17.5 g/dL [facility] Hct 26.0(L) 38.9 - 50.3 % [facility] Plt 201 150 - 400 K/cumm [facility] MPV 9.0(L) 9.1 - 12.3 fL [facility] RBC 2.57(L) 4.30 - 5.80 M/cumm [facility] MCV 101.2(H) 81.3 - 96.4 fL [facility] MCH 32.3 27.1 - 33.3 pg [facility] MCHC 31.9(L) 32.3 - 35.7 g/dL [facility] RDW CV 13.4 11.1 - 14.9 % [facility] RDW SD 50.2(H) 35.7 - 48.1 fL [facility] NRBC abs 0.00 0.00 - 0.01 K/cumm [facility] Blood 03/24/2021 7:44 AM CDT 03/24/2021 8:31 AM CDT Malathi Curry MD LAB BLOOD ORDERABLES Final Res ult Performing Organization Address [facility] Co de Phone Number [facility] [address] [facility] [place] [address] * Magnesium (03/24/2021 7:44 AM CDT) Magnesium 1.9 1.4 - 2.5 mg/dL [facility] Blood 03/24/2021 7:44 AM CDT 03/24/2021 8:31 AM CDT Malathi Curry MD LAB BLOOD ORDERABLES Final Res ult Performing Organization Address [facility] de Phone Number [facility] [address] [place] [address] * Protime-INR (03/24/2021 7:44 AM CDT) PT 12.0 9.5 - 13.6 sec [facility] INR 1.1 0.9 - 1.2 [facility] Comment: Interpretive data Oral anticoagulant therapeutic ranges: Venous thromboembolism prophylaxis or treatment: 2.0-3.0 CARDIOLOGY Standard range: 2.0-3.0 High-intensity range: 2.5-3.5 Refer to indication-specific guidelines for appropriate target ranges for prosthetic heart valve replacement. Current interpretive data was last revised on 2019. Blood 03/24/2021 7:44 AM CDT 03/24/2021 8:31 AM CDT Stevie Vicente NP LAB BLOOD ORDERABLES Final Result Performing Organization Address [facility] de Phone Number [facility] [address] [facility] [facility] [place] [address] * aPTT (03/24/2021 7:44 AM CDT) aPTT 28 27 - 37 sec CHRISTINA CARRENO Comment: Interpretive Data Therapeutic heparin range: 60.0 - 94.0 seconds. Based on correlation with therapeutic heparin activity range of 0.3-0.7 Units/mL. Current interpretive data was last revised on 2020. Blood 03/24/2021 7:44 AM CDT 03/24/2021 8:31 AM CDT us Stevie Vicente AMUSEMENT CENTRE MANAGER LAB BLOOD ORDERABLES Final Result CHRISTINA CARRENO [address] Department [place] [address] * XR Chest 1 View - Portable [...] Glucose, POC 144 70 - 199 mg/dL [facility] Blood 03/23/2021 7:53 PM CDT 03/23/2021 7:53 PM CDT Malathi Curry MD LAB POCT ORDERABLES - DEVICE F inal Result Performing Organization Address [facility]/ZIP Co de Phone Number [facility] [address] [facility] [place] [address] * POCT glucose (03/23/2021 5:59 PM CDT) Glucose, POC 141 70 - 199 mg/dL [facility] Blood 03/23/2021 5:59 PM CDT 03/23/2021 5:59 PM CDT Malathi Curry MD LAB POCT ORDERABLES - DEVICE F inal Result Performing Organization Address [facility] Co de Phone Number [facility] [address] [facility] [place] [address] * POCT glucose (03/23/2021 11:52 AM CDT) Glucose, POC 136 70 - 199 mg/dL [facility] Blood 03/23/2021 11:5 2 AM CDT 03/23/2021 11:52 AM CDT Malathi Curry MD LAB POCT ORDERABLES - DEVICE F inal Result Performing Organization Address [facility] Co de Phone Number [facility] [address] [facility] [place] [address] * POCT glucose (03/23/2021 7:23 AM CDT) Pathologist [facility] Glucose, POC 126 70 - 199 mg/dL GRISELLUIZA CARRENO Blood 03/23/2021 7:23 AM CDT 03/23/2021 7:23 AM CDT Malathi Curry MD LAB POCT ORDERABLES - DEVICE F inal Result CHRISTINA [address] [facility] Department [place] [address] * XR Chest 1 View - Portable [...] FINDINGS:Compared with study of the prior day, [place] catheter withdrawn into the superior vena cava. ??Thoracostomy tube left side removed without pneumothorax. ??Postsurgical changes in the heart and mediastinum. ??No failure or fluid. Procedure Note Neftali Kaminski MD - 03/23/2021 EXAMINATION: XR CHEST 1 VIEW DATE: 03/23/2021 4:00 AM HISTORY: 55-year-old man follow-up cardiac surgery FINDINGS:Compared with study of the prior day, [place] catheter withdrawn into the superior vena cava. Thoracostomy tube left side removed without pneumothorax. Postsurgical changes in the heart and mediastinum. No failure or fluid. IMPRESSION: Removal of chest tube without pneumothorax. No failure. Electronically signed by: Neftali Kaminski M.D. Malathi Curry MD IMG XR PROCEDURES Final Result * eGFR (03/23/2021 4:51 AM CDT) eGFR 61 mL/min/1.7 3 m2 [facility] Comment: Interpretive [...] 4:51 AM CDT 03/23/2021 5:13 AM CDT us Malathi Curry MD LAB BLOOD ORDERABLES Final Res ult [facility] [address] Department [place] [address] * Renal function panel (03/23/2021 4:51 AM CDT) Pathologist [facility] Sodium 135 135 - 145 mmol/L [facility] Potassium, pl 4.7 3.3 - 4.9 mmol/L [facility] Chloride 97 97 - 110 mmol/L [facility] CO2 28 22 - 32 mmol/L [facility] Anion gap 10 2 - 15 mmol/L [facility] BUN 15 8 - 25 mg/dL [facility] Creatinine 1.30 0.80 - 1.30 mg/dL [facility] Glucose 123 70 - 199 mg/dL [facility] Comment: Interpretive Data Fasting glucose >/= 126 [...] 2017. Calcium 8.6 8.5 - 10.3 mg/dL [facility] Phosphorus, pl 3.1 2.3 - 4.5 mg/dL [facility] Albumin 3.5 3.5 - 5.0 g/dL [facility] Blood 03/23/2021 4:51 AM CDT 03/23/2021 5:13 AM CDT us Malathi Curry MD LAB BLOOD ORDERABLES Final Res ult [facility] [address] Department [place] [address] * (ABNORMAL) CBC without differential (03/23/2021 4:51 AM CDT) WBC 3.9 3.8 - 9.9 K/cumm [facility] Hgb 8.7(L) 13.0 - 17.5 g/dL [facility] Hct 26.0(L) 38.9 - 50.3 % [facility] Plt 150 150 - 400 K/cumm [facility] MPV 9.1 9.1 - 12.3 fL [facility] RBC 2.66(L) 4.30 - 5.80 M/cumm [facility] MCV 97.7(H) 81.3 - 96.4 fL [facility] MCH 32.7 27.1 - 33.3 pg [facility] MCHC 33.5 32.3 - 35.7 g/dL [facility] RDW CV 13.6 11.1 - 14.9 % [facility] CH RDW SD 48.5(H) 35.7 - 48.1 fL [facility] NRBC abs 0.00 0.00 - 0.01 K/cumm [facility] Blood 03/23/2021 4:51 AM CDT 03/23/2021 5:13 AM CDT Malathi Curry MD LAB BLOOD ORDERABLES Final Res ult Performing Organization Address [facility] Co de Phone Number GRISELLUIZA CARRENO [address] [facility] [employer] [place], [place] [address] * Magnesium (03/23/2021 4:51 AM CDT) Magnesium 1.8 1.4 - 2.5 mg/dL [facility] Blood 03/23/2021 4:51 AM CDT 03/23/2021 5:13 AM CDT Malathi Curry MD LAB BLOOD ORDERABLES Final Res ult Performing Organization Address [facility] Phone Number GRISELLUIZA CARRENO [address] [facility] [place] [address] * POCT glucose (03/22/2021 6:04 PM CDT) Glucose, POC 138 70 - 199 mg/dL [facility] Blood 03/22/2021 6:04 PM CDT 03/22/2021 6:04 PM CDT Malathi Curry MD LAB POCT ORDERABLES - DEVICE F inal Result Performing Organization Address [facility] de Phone Number CHRISTINA [address] [facility] [place] [address] * Critical Care (03/22/2021 4:12 PM CDT) [...] plan with the ICU team and other medical/child welfare consultant staff, making frequent assessments and decisions [...] with the study of the previous day, [place] catheter left thoracostomy tube, remain in place. ??Postsurgical changes in the heart and mediastinum without failure fluid infiltrates or pneumothorax. Procedure Note Neftali Kaminski MD - 03/22/2021 EXAMINATION: XR CHEST 1 VIEW DATE: 03/22/2021 4:35 AM HISTORY: 55-year-old man cardiac surgery follow-up FINDINGS:Compared with the study of the previous day, [place] catheter left thoracostomy tube, remain in place. Postsurgical changes in the heart and mediastinum without failure fluid infiltrates or pneumothorax. IMPRESSION: Stable appearance without pneumothorax or failure. Electronically signed by: Neftali Kaminski M.D. Malathi Curry MD IMG XR PROCEDURES Final Result * eGFR (03/22/2021 3:58 AM CDT) [facility] eGFR 81 mL/min/1.7 3 m2 CHRISTINA Comment: Interpretive Data Reference Interval Normal ?>/= [...] BLOOD ORDERABLES Final Res ult CHRISTINA CARRENO [address] [place] [address] * Renal function panel (03/22/2021 3:58 AM CDT) Sodium 135 135 - 145 mmol/L [facility] Potassium, pl 3.9 3.3 - 4.9 mmol/L [...] [facility] Albumin 3.6 3.5 - 5.0 g/dL [facility] Blood 03/22/2021 3:58 AM CDT 03/22/2021 4:08 AM CDT Malathi Curry MD LAB BLOOD ORDERABLES Final Res ult CHRISTINA CARRENO [address] [place] [address] * (ABNORMAL) CBC without differential (03/22/2021 3:58 AM CDT) WBC 7.6 3.8 - 9.9 K/cumm [facility] Hgb 7.9(L) 13.0 - 17.5 g/dL [facility] Hct 23.3(L) 38.9 - 50.3 % [facility] Plt 102(L) 150 - 400 K/cumm [facility] MPV 8.6(L) 9.1 - 12.3 fL [facility] RBC 2.43(L) 4.30 - 5.80 M/cumm [facility] MCV 95.9 81.3 - 96.4 fL [facility] MCH 32.5 27.1 - 33.3 pg [facility] MCHC 33.9 32.3 - 35.7 g/dL [facility] RDW CV 13.5 11.1 - 14.9 % [facility] RDW SD 47.7 35.7 - 48.1 fL [facility] NRBC abs 0.00 0.00 - 0.01 K/cumm [facility] Blood 03/22/2021 3:58 AM CDT 03/22/2021 4:08 AM CDT Malathi Curry MD LAB BLOOD ORDERABLES Final Res ult Performing Organization Address City/[facility] Co de Phone Number CHRISTINA CARRENO [address] [place] [address] * Magnesium (03/22/2021 3:58 AM CDT) Pathologist [facility] Magnesium 1.9 1.4 - 2.5 mg/dL [facility] Blood 03/22/2021 3:58 AM CDT 03/22/2021 4:08 AM CDT Malathi Curry MD LAB BLOOD ORDERABLES Final Res ult Performing Organization Address City/[facility]/ZIP Co de Phone Number CHRISTINA CARRENO [address] [place] [address] * Critical Care (03/21/2021 8:18 PM CDT) [...] plan with the ICU team and other medical/child welfare consultant staff, making frequent assessments and decisions [...] * POCT glucose (03/21/2021 7:29 PM CDT) Glucose, POC 154 70 - 199 mg/dL CHRISTINA CARRENO Blood 03/21/2021 7:29 PM CDT 03/21/2021 7:29 PM CDT Wilbur Elliott MD LAB POCT ORDERABLES - DEVICE Fin al Result CHRISTINA CARRENO [address] [place] [address] * eGFR (03/21/2021 1:37 PM CDT) Pathologist [facility] eGFR 77 mL/min/1.7 3 m2 CHRISTINA Comment: Interpretive Data Reference Interval Normal ?>/= [...] BLOOD ORDERABLES Final Res ult CHRISTINA CARRENO [address] [place] [address] * Differential, auto (03/21/2021 1:37 PM CDT) Pathologist [facility] Neutrophil abs 6.5 1.7 - 6.5 K/cumm [facility] Imm gran abs 0.0 0.0 - 0.1 K/cumm [facility] Lymphocyte abs 1.3 0.8 - 3.3 K/cumm [facility] Monocyte abs 0.8 0.2 - 0.8 K/cumm [facility] Eosinophil abs 0.0 0.0 - 0.5 K/cumm [facility] Basophil abs 0.0 0.0 - 0.1 K/cumm [facility] Neutrophil pct 75.1 % [facility] Comment: Interpretive Data Percent cell count reference ranges are not reported, since discordance with absolute values may lead to misinterpretation of CBC data. Current Interpretive Data was last revised on 2017. Imm gran pct 0.5 % [facility] Comment: Interpretive Data Percent cell count reference ranges are not reported, since discordance with absolute values may lead to misinterpretation of CBC data. Current Interpretive Data was last revised on 2017. Lymphocyte pct 14.8 % [facility] Comment: Interpretive Data Percent cell count reference ranges are not reported, since discordance with absolute values may lead to misinterpretation of CBC data. Current Interpretive Data was last revised on 2017. Monocyte pct 9.4 % [facility] Comment: Interpretive Data Percent cell count reference ranges are not reported, since discordance with absolute values may lead to misinterpretation of CBC data. Current Interpretive Data was last revised on 2017. Eosinophil pct 0.1 % [facility] Comment: Interpretive Data Percent cell count reference ranges are not reported, since discordance with absolute values may lead to misinterpretation of CBC data. Current Interpretive Data was last revised on 2017. Basophil pct 0.1 % [facility] Comment: Interpretive Data Percent cell count reference ranges are not reported, since discordance with absolute values may lead to misinterpretation of CBC data. Current Interpretive Data was last revised on 2017. Blood 03/21/2021 1:37 PM CDT 03/21/2021 1:37 PM CDT Janel Roberts MD LAB BLOOD ORDERABLES Fin al Result CHRISTINA [address] [place] [address] * Magnesium (03/21/2021 1:37 PM CDT) Magnesium 2.4 1.4 - 2.5 mg/dL [facility] Blood 03/21/2021 1:37 PM CDT 03/21/2021 1:37 PM CDT Malathi Curry MD LAB BLOOD ORDERABLES Final Res ult [facility]ER [address] [place] [address] * Renal function panel (03/21/2021 1:37 PM CDT) Sodium 135 135 - 145 mmol/L [facility] Potassium, pl 4.4 3.3 - 4.9 mmol/L [facility] Chloride 100 97 - 110 mmol/L [facility] CO2 23 22 - 32 mmol/L [facility] Anion gap 12 2 - 15 mmol/L [facility] BUN 10 8 - 25 mg/dL [facility] Creatinine 1.08 0.80 - 1.30 mg/dL [facility] Glucose 145 70 - 199 mg/dL [facility] Comment: [...] CH Albumin 3.9 3.5 - 5.0 g/dL [facility] Blood 03/21/2021 1:37 PM CDT 03/21/2021 1:37 PM CDT Malathi Curry MD LAB BLOOD ORDERABLES Final Res ult Performing Organization Address [facility] Co de Phone Number CHRISTINA CARRENO [address] [place] [address] * (ABNORMAL) CBC with auto differential (03/21/2021 1:37 PM CDT) WBC 8.6 3.8 - 9.9 K/cumm [facility] Hgb 8.5(L) 13.0 - 17.5 g/dL [facility] Hct 25.1(L) 38.9 - 50.3 % [facility] Plt 110(L) 150 - 400 K/cumm [facility] MPV 8.8(L) 9.1 - 12.3 fL [facility] RBC 2.58(L) 4.30 - 5.80 M/cumm [facility] MCV 97.3(H) 81.3 - 96.4 fL [facility] MCH 32.9 27.1 - 33.3 pg [facility] MCHC 33.9 32.3 - 35.7 g/dL [facility] RDW CV 13.2 11.1 - 14.9 % [facility] RDW SD 47.1 35.7 - 48.1 fL [facility] NRBC abs 0.00 0.00 - 0.01 K/cumm [facility] Blood 03/21/2021 1:37 PM CDT 03/21/2021 1:37 PM CDT Janel Roberts MD LAB BLOOD ORDERABLES Fin al Result Performing Organization Address City/[facility]/ZIP Co de Phone Number CHRISTINA CARRENO [address] Department of [employer] [place], [place] [id number] * POCT glucose (03/21/2021 11:54 AM CDT) Glucose, POC 107 70 - 199 mg/dL [facility] Blood 03/21/2021 11:5 4 AM CDT 03/21/2021 11:54 AM CDT Wilbur Elliott MD LAB POCT ORDERABLES - DEVICE Fin al Result Performing Organization Address City/[facility]/ZIP Co de Phone Number CHRISTINA CARRENO [address] [place] [address] * POCT glucose (03/21/2021 7:56 AM CDT) Glucose, POC 121 70 - 199 mg/dL CHRISTINA Blood 03/21/2021 7:56 AM CDT 03/21/2021 7:56 AM CDT Wilubr Earl RIBEIRO LAB POCT ORDERABLES - DEVICE Fin al Result Performing Organization Address [facility] de Phone Number CHRISTINA CARRENO [address] [place] [address] * XR Chest 1 View - Portable [...] the previous day. ??Patient is now extubated. ??[place]ond[place]-Belle catheter remains in place. ??Left thoracostomy tube remains in place. ??There is no failure or pneumothorax. ??COPD. Procedure Note Neftali Kaminski MD - 03/21/2021 EXAMINATION: XR CHEST 1 VIEW DATE: 03/21/2021 4:20 AM HISTORY: 55-year-old man follow-up cardiac surgery FINDINGS:Comparison is made with study the previous day. Patient is now extubated. [place]-Belle catheter remains in place. Left thoracostomy tube remains in place. There is no failure or pneumothorax. COPD. IMPRESSION: Extubation. No pneumothorax or failure. Electronically signed by: Neftali Kaminski M.D. Malathi Curry MD IMG XR PROCEDURES Final Result * POCT glucose (03/21/2021 4:02 AM CDT) Glucose, POC 115 70 - 199 mg/dL [facility] Blood 03/21/2021 4:02 AM CDT 03/21/2021 4:02 AM CDT Wilbur Elliott MD LAB POCT ORDERABLES - DEVICE Fin al Result [facility] [address] Department [place] [address] * eGFR (03/21/2021 3:59 AM CDT) eGFR 63 mL/min/1.7 3 m2 [facility] Comment: Interpretive Data Reference Interval Normal ?>/= [...] MD LAB BLOOD ORDERABLES Final Res ult [facility] [address] [place] [address] * Differential, auto (03/21/2021 3:59 AM CDT) Neutrophil abs 5.8 1.7 - 6.5 K/cumm [facility] Imm gran abs 0.0 0.0 - 0.1 K/cumm [facility] Lymphocyte abs 1.0 0.8 - 3.3 K/cumm [facility] Monocyte abs 0.6 0.2 - 0.8 K/cumm [facility] Eosinophil abs 0.0 0.0 - 0.5 K/cumm [facility] Basophil abs 0.0 0.0 - 0.1 K/cumm [facility] Neutrophil pct 77.9 % [facility] Comment: Interpretive Data Percent cell count reference ranges are not reported, since discordance with absolute values may lead to misinterpretation of CBC data. Current Interpretive Data was last revised on 2017. Imm gran pct 0.4 % [facility] Comment: Interpretive Data Percent cell count reference ranges are not reported, since discordance with absolute values may lead to misinterpretation of CBC data. Current Interpretive Data was last revised on 2017. Lymphocyte pct 13.5 % [facility] Comment: Interpretive Data Percent cell count reference ranges are not reported, since discordance with absolute values may lead to misinterpretation of CBC data. Current Interpretive Data was last revised on 2017. Monocyte pct 8.1 % [facility] Comment: Interpretive Data Percent cell count reference ranges are not reported, since discordance with absolute values may lead to misinterpretation of CBC data. Current Interpretive Data was last revised on 2017. Eosinophil pct 0.0 % [facility] Comment: Interpretive Data Percent cell count reference ranges are not reported, since discordance with absolute values may lead to misinterpretation of CBC data. Current Interpretive Data was last revised on 2017. Basophil pct 0.1 % CHRISTINA Comment: Interpretive Data Percent cell count reference ranges are not reported, since discordance with absolute values may lead to misinterpretation of CBC data. Current Interpretive Data was last revised on 2017. Blood 03/21/2021 3:59 AM CDT 03/21/2021 4:18 AM CDT Malathi Curry MD LAB BLOOD ORDERABLES Final Res ult Performing Organization Address City/[facility] Co de Phone Number CHRISTINA [address] [facility] [place] [address] * Oxyhemoglobin, central venous (03/21/2021 3:59 AM CDT) Pathologist [facility] Oxyhemoglobin, CV 70.2 % CHRISTINA Comment: Interpretive Data No reference range established. Current interpretive data was last revised 2019. Blood 03/21/2021 3:59 AM CDT 03/21/2021 4:15 AM CDT Malathi Curry MD LAB BLOOD ORDERABLES Final Res ult Performing Organization Address [facility] Co de Phone Number CHRISTINA CARRENO [address] [facility] [place] [address] * Magnesium (03/21/2021 3:59 AM CDT) Pathologist [facility] Magnesium 1.9 1.4 - 2.5 mg/dL CHRISTINA Blood 03/21/2021 3:59 AM CDT 03/21/2021 4:18 AM CDT Malathi Curry MD LAB BLOOD ORDERABLES Final Res ult Performing Organization Address [facility] Co de Phone Number CHRISTINA CARRENO [address] [place] [address] * Basic metabolic panel (03/21/2021 3:59 AM CDT) Sodium 139 135 - 145 mmol/L [facility] Potassium, pl 4.8 3.3 - 4.9 mmol/L [facility] Chloride 107 97 - 110 mmol/L [facility] CO2 24 22 - 32 mmol/L [facility] Anion gap 8 2 - 15 mmol/L [facility] BUN 12 8 - 25 mg/dL [facility] Creatinine 1.28 0.80 - 1.30 mg/dL [facility] Glucose 125 70 - 199 mg/dL [facility] Comment: Interpretive Data Fasting glucose [...] 2017. Calcium 8.6 8.5 - 10.3 mg/dL [facility] Blood 03/21/2021 3:59 AM CDT 03/21/2021 4:18 AM CDT Maalthi Curry MD LAB BLOOD ORDERABLES Final Res ult [facility] [address] [place] [address] * (ABNORMAL) CBC with auto differential (03/21/2021 3:59 AM CDT) Pathologist [facility] WBC 7.4 3.8 - 9.9 K/cumm [facility] Hgb 8.0(L) 13.0 - 17.5 g/dL [facility] Hct 23.9(L) 38.9 - 50.3 % [facility] Plt 103(L) 150 - 400 K/cumm [facility] MPV 8.7(L) 9.1 - 12.3 fL [facility] RBC 2.46(L) 4.30 - 5.80 M/cumm [facility] MCV 97.2(H) 81.3 - 96.4 fL [facility] MCH 32.5 27.1 - 33.3 pg [facility] MCHC 33.5 32.3 - 35.7 g/dL [facility] RDW CV 12.8 11.1 - 14.9 % [facility] RDW SD 44.9 35.7 - 48.1 fL [facility] NRBC abs 0.00 0.00 - 0.01 K/cumm [facility] Blood 03/21/2021 3:59 AM CDT 03/21/2021 4:18 AM CDT Malathi Curry MD LAB BLOOD ORDERABLES Final Res ult Performing Organization Address City/[facility] Co de Phone Number CHRISTINA WAI [address] [facility] [employer] [place], [place] [id number] * POCT glucose (03/21/2021 1:52 AM CDT) Glucose, POC 121 70 - 199 mg/dL [facility] Blood 03/21/2021 1:52 AM CDT 03/21/2021 1:52 AM CDT Wilbur Elliott MD LAB POCT ORDERABLES - DEVICE Fin al Result Performing Organization Address [facility] Co de Phone Number CHRISTINA WAI [address] [facility] [employer] [place], [place] [id number] * POCT glucose (03/21/2021 12:02 AM CDT) Glucose, POC 142 70 - 199 mg/dL [facility] Blood 03/21/2021 12:0 2 AM CDT 03/21/2021 12:02 AM CDT Wilbur Elliott MD LAB POCT ORDERABLES - DEVICE Fin al Result Performing Organization Address [facility] Co de Phone Number GRISELLUIZA CARRENO [address] [employer] [place], [place] [id number] * Critical Care (03/20/2021 10:10 PM CDT) [...] plan with the ICU team and other medical/child welfare consultant staff, making frequent assessments and decisions [...] Glucose, POC 125 70 - 199 mg/dL CHRISTINA Blood 03/20/2021 9:46 PM CDT 03/20/2021 9:46 PM CDT Wilbur Elliott MD LAB POCT ORDERABLES - DEVICE Fin al Result Performing Organization Address City/[facility]/ZIP Co de Phone Number CHRISTINA [address] [place] [address] * (ABNORMAL) Blood gas, arterial (03/20/2021 9:39 [...] ORDERABLES Final R esult Performing Organization Address City/[facility]/ZIP Co de Phone Number CHRISTINA [address] [facility] [place] [address] * POCT glucose (03/20/2021 9:01 PM CDT) Glucose, POC 120 70 - 199 mg/dL [facility] Blood 03/20/2021 9:01 PM CDT 03/20/2021 9:01 PM CDT Wilbur Elliott MD LAB POCT ORDERABLES - DEVICE Fin al Result Performing Organization Address City/[facility] Co de Phone Number CHRISTINA CARRENO [address] [facility] [place] [address] * POCT glucose (03/20/2021 8:08 PM CDT) Glucose, POC 123 70 - 199 mg/dL [facility] Blood 03/20/2021 8:08 PM CDT 03/20/2021 8:08 PM CDT Wilbur Elliott MD LAB POCT ORDERABLES - DEVICE Fin al Result Performing Organization Address [facility] de Phone Number CHRISTINA [address] [place] [address] * eGFR (03/20/2021 8:04 PM CDT) eGFR 63 mL/min/1.7 3 m2 [facility] Comment: Interpretive Data Reference Interval Normal ?>/= [...] ORDERABLES Final Res ult Performing Organization Address [facility] Co de Phone Number CHRISTINA [address] [place] [address] * (ABNORMAL) Calcium, ionized (03/20/2021 8:04 PM CDT) Ca, ionized, bld 5.61(H) 4.60 - 5.20 mg/dL [facility] Ca, ionized, bld, calc 5.54(H) 4.60 - 5.20 mg/dL [facility] Blood 03/20/2021 8:04 PM CDT 03/20/2021 8:18 PM CDT Antelmo Proctor MD LAB BLOOD ORDERABLES Final R esult CHRISTINA [address] Department [place] [address] * (ABNORMAL) CBC without differential (03/20/2021 8:04 PM CDT) WBC 11.7(H) 3.8 - 9.9 K/cumm [facility] Hgb 9.1(L) 13.0 - 17.5 g/dL [facility] Hct 26.2(L) 38.9 - 50.3 % [facility] Plt 112(L) 150 - 400 K/cumm [facility] MPV 8.5(L) 9.1 - 12.3 fL [facility] RBC 2.73(L) 4.30 - 5.80 M/cumm [facility] MCV 96.0 81.3 - 96.4 fL [facility] MCH 33.3 27.1 - 33.3 pg [facility] MCHC 34.7 32.3 - 35.7 g/dL [facility] RDW CV 13.0 11.1 - 14.9 % [facility] RDW SD 45.3 35.7 - 48.1 fL [facility] NRBC abs 0.00 0.00 - 0.01 K/cumm [facility] Blood 03/20/2021 8:04 PM CDT 03/20/2021 8:19 PM CDT Malathi Curry MD LAB BLOOD ORDERABLES Final Res ult Performing Organization Address [facility] de Phone Number CHRISTINA [address] Department [place] [address] * (ABNORMAL) Blood gas, arterial (03/20/2021 8:04 [...] ORDERABLES Final Res ult Performing Organization Address [facility] de Phone Number CHRISTINA [address] Department [place] [address] * (ABNORMAL) Basic metabolic panel (03/20/2021 8:04 PM CDT) Sodium 139 135 - 145 mmol/L [facility] Potassium, pl 5.4(H) 3.3 - 4.9 mmol/L [facility] Chloride 107 97 - 110 mmol/L [facility] CO2 22 22 - 32 mmol/L [facility] Anion gap 10 2 - 15 mmol/L [facility] BUN 12 8 - 25 mg/dL [facility] Creatinine 1.28 0.80 - 1.30 mg/dL [facility] Glucose 124 70 - 199 mg/dL [facility] [...] Calcium 10.0 8.5 - 10.3 mg/dL [facility] Blood 03/20/2021 8:04 PM CDT 03/20/2021 8:19 PM CDT Malathi Curry MD LAB BLOOD ORDERABLES Final Res ult Performing Organization Address City/[facility]/ZIP Co de Phone Number CHRISTINA CARRENO [address] Department [address] [employer] [place], [place] [id number] * POCT glucose (03/20/2021 6:15 PM CDT) Glucose, POC 127 70 - 199 mg/dL [facility] Blood 03/20/2021 6:15 PM CDT 03/20/2021 6:15 PM CDT Wilbur Elliott MD LAB POCT ORDERABLES - DEVICE Fin al Result Performing Organization Address [facility] Co de Phone Number CHRISTINA CARRENO [address] [place] [address] * (ABNORMAL) Blood gas, arterial (03/20/2021 5:38 [...] ORDERABLES Final Res ult Performing Organization Address [facility] Co de Phone Number CHRISTINA CARRENO [address] [place] [address] * POCT glucose (03/20/2021 5:35 PM CDT) Glucose, POC 136 70 - 199 mg/dL [facility] Blood 03/20/2021 5:35 PM CDT 03/20/2021 5:35 PM CDT Wilbur Elliott MD LAB POCT ORDERABLES - DEVICE Fin al Result Performing Organization Address [facility] de Phone Number CHRISTINA CARRENO [address] [place] [address] * ECG 12 lead (03/20/2021 4:42 PM CDT) 03/20/2021 4:42 PM CDT Narrative [facility] [employer] - 03/25/2021 1:01 PM CDT Vent Rate: 90 bpm RR Interval: 662 msec [place] Interval: 127 msec QRS Duration: 94 msec QT Interval: 379 msec QTC Interval: 427 msec P-R-T [place]: 79 - 81 - -84 degrees SINUS RHYTHM SEPTAL MYOCARDIAL INFARCTION , PROBABLY OLD [40+ ms Q WAVE IN V1/V2] MODERATE T-WAVE ABNORMALITY, CONSIDER INFERIOR ISCHEMIA ??[-0.1+ mV T-WAVE IN II/aVF] ABNORMAL ECG Electronically Signed By: Haroldo Broussard MD, [facility] Malathi Curry MD ECG ORDERABLES Edited Result - Final Performing Organization Address [facility] Co de Phone Number [facility] [employer] [place] * XR Chest 1 View - Portable [...] normal heart size. ??Endotracheal tube nasogastric tube, Irondale-Belle catheter left thoracostomy tube and mediastinal drain [...] normal heart size. Endotracheal tube nasogastric tube, [place]ale-Belle catheter left thoracostomy tube and mediastinal drain [...] ORDERABLES Final Res ult Performing Organization Address City/[facility]/ZIP Co de Phone Number CHRISTINA [address] [place] [address] * eGFR (03/20/2021 4:34 PM CDT) eGFR 66 mL/min/1.7 3 m2 CHRISTINA Comment: Interpretive Data Reference Interval Normal ?>/= [...] LAB BLOOD ORDERABLES Final Res ult CHRISTINA [address] [place] [address] * aPTT (03/20/2021 4:34 PM CDT) aPTT 29 27 - 37 sec CHRISTINA Comment: Interpretive Data Therapeutic heparin range: 60.0 - 94.0 seconds. Based on correlation with therapeutic heparin activity range of 0.3-0.7 Units/mL. Current interpretive data was last revised on 2020. Blood 03/20/2021 4:34 PM CDT 03/20/2021 4:47 PM CDT Malathi Curry MD LAB BLOOD ORDERABLES Final Res ult Performing Organization Address [facility] de Phone Number [facility] [address] [place] [address] * (ABNORMAL) Protime-INR (03/20/2021 4:34 PM CDT) PT 15.1(H) 9.5 - 13.6 sec [facility] INR 1.4(H) 0.9 - 1.2 CHRISTINA Comment: Interpretive data Oral anticoagulant therapeutic ranges: Venous thromboembolism prophylaxis or treatment: 2.0-3.0 CARDIOLOGY Standard range: 2.0-3.0 High-intensity range: 2.5-3.5 Refer to indication-specific guidelines for appropriate target ranges for prosthetic heart valve replacement. Current interpretive data was last revised on 2019. Blood 03/20/2021 4:34 PM CDT 03/20/2021 4:47 PM CDT Malathi Curry MD LAB BLOOD ORDERABLES Final Res ult Performing Organization Address [facility] Co de Phone Number [facility] [address] [place] [address] * (ABNORMAL) CBC without differential (03/20/2021 4:34 PM CDT) WBC 12.0(H) 3.8 - 9.9 K/cumm [facility] Hgb 9.6(L) 13.0 - 17.5 g/dL [facility] Hct 28.3(L) 38.9 - 50.3 % [facility] Plt 111(L) 150 - 400 K/cumm [facility] MPV 8.3(L) 9.1 - 12.3 fL [facility] RBC 2.90(L) 4.30 - 5.80 M/cumm [facility] MCV 97.6(H) 81.3 - 96.4 fL [facility] MCH 33.1 27.1 - 33.3 pg [facility] CH MCHC 33.9 32.3 - 35.7 g/dL [facility] RDW CV 13.1 11.1 - 14.9 % [facility] RDW SD 46.5 35.7 - 48.1 fL [facility] NRBC abs 0.00 0.00 - 0.01 K/cumm [facility] Blood 03/20/2021 4:34 PM CDT 03/20/2021 4:47 PM CDT Malathi Curry MD LAB BLOOD ORDERABLES Final Res ult Performing Organization Address [facility] Co de Phone Number [facility] [address] [address] * (ABNORMAL) Calcium, ionized (03/20/2021 4:34 PM CDT) Ca, ionized, bld 4.75 4.60 - 5.20 mg/dL [facility] Ca, ionized, bld, calc 4.50(L) 4.60 - 5.20 mg/dL [facility] Blood 03/20/2021 4:34 PM CDT 03/20/2021 4:47 PM CDT Malathi Curry MD LAB BLOOD ORDERABLES Final Res ult Performing Organization Address City/[facility] Co de Phone Number [facility] [address] [facility] [place] [address] * Magnesium (03/20/2021 4:34 PM CDT) Magnesium 2.4 1.4 - 2.5 mg/dL [facility] Blood 03/20/2021 4:34 PM CDT 03/20/2021 4:47 PM CDT Malathi Curry MD LAB BLOOD ORDERABLES Final Res ult Performing Organization Address City/[facility]/ZIP Co de Phone Number CHRISTINA CARRENO [address] [place] [address] * (ABNORMAL) Basic metabolic panel (03/20/2021 4:34 PM CDT) Sodium 140 135 - 145 mmol/L [facility] [facility] Potassium, pl 4.8 3.3 - 4.9 mmol/L [facility] Chloride 109 97 - 110 mmol/L [facility] CO2 22 22 - 32 mmol/L [facility] Anion gap 9 2 - 15 mmol/L [facility] BUN 12 8 - 25 mg/dL [facility] Creatinine 1.22 0.80 - 1.30 mg/dL [facility] Glucose 137 70 - 199 mg/dL [facility] Comment: Interpretive Data Fasting glucose >/= 126 [...] 2017. Calcium 7.9(L) 8.5 - 10.3 mg/dL [facility] Blood 03/20/2021 4:34 PM CDT 03/20/2021 4:47 PM CDT Malathi Curry MD LAB BLOOD ORDERABLES Final Res ult Performing Organization Address [facility]/ZIP Co de Phone Number CHRISTINA CARRENO [address] [place] [address] * POCT glucose (03/20/2021 4:18 PM CDT) Glucose, POC 116 70 - 199 mg/dL [facility] Blood 03/20/2021 4:18 PM CDT 03/20/2021 4:18 PM CDT Wilbur Elliott MD LAB POCT ORDERABLES - DEVICE Fin al Result Performing Organization Address City/[facility] Co de Phone Number CHRISTINA CARRENO [address] [place] [address] * (ABNORMAL) POC Blood Gas and Chemistries, Arterial - (03/20/2021 3:39 PM CDT) pH, Art POC 7.36 7.35 - 7.45 [facility] pCO2, Art [...] DEVICE Fin al Result Performing Organization Address City/[facility]/ZIP Co de Phone Number CHRISTINA CARRENO [address] [place] [address] * (ABNORMAL) Potassium, whole blood (03/20/2021 2:47 PM CDT) Pathologist [facility] Potassium, bld 5.5(H) 3.3 - 4.9 mmol/L CHRISTINA Comment: Interpretive Data Unable to assess hemolysis. ??Invitro hemolysis causes falsely elevated potassium. Current Interpretive Data was last revised on 2020. Blood 03/20/2021 2:47 PM CDT 03/20/2021 2:50 PM CDT Narrative [facility] - 03/20/2021 2:53 PM CDT Please call OR 14 at [phone] with results. Malathi Curry MD LAB BLOOD ORDERABLES Final Res ult Performing Organization Address [facility]/ZIP Co de Phone Number [facility] [address] [place] [address] * (ABNORMAL) POC Blood Gas and Chemistries, Venous - (03/20/2021 2:36 PM CDT) [facility] K POC 6.8(C) 3.3 - 4.9 mmol/L CHRISTINA Comment: Interpretive Data Unable to assess hemolysis. ??Invitro hemolysis causes falsely elevated potassium. Current Interpretive Data was last revised on 2020. Blood 03/20/2021 2:36 PM CDT 03/20/2021 2:36 PM CDT Wilbur Elliott MD LAB POCT ORDERABLES - DEVICE Fin al Result [facility] [address] [place] [address] * (ABNORMAL) POC Blood Gas and Chemistries, Arterial - (03/20/2021 2:18 PM CDT) Pathologist [facility] pH, Art POC 7.39 7.35 - 7.45 CHRISTINA pCO2, Art POC 37 35 - 45 [...] POCT ORDERABLES - DEVICE Fin al Result [facility] [address] Department [place] [address] * (ABNORMAL) POC Blood Gas and Chemistries, Venous - (03/20/2021 2:00 PM CDT) K POC 6.7(C) 3.3 - 4.9 mmol/L [facility] Comment: Interpretive Data Unable to assess hemolysis. ??Invitro hemolysis causes falsely elevated potassium. Current Interpretive Data was last revised on 2020. Blood 03/20/2021 2:00 PM CDT 03/20/2021 2:00 PM CDT us Wilbur Elliott MD LAB POCT ORDERABLES - DEVICE Fin al Result Performing Organization Address City/[facility]/ZIP Co de Phone Number CHRISTINA CARRENO [address] [place] [address] * Platelet count (03/20/2021 1:58 PM CDT) Plt 159 150 - 400 K/cumm [facility] Blood 03/20/2021 1:58 PM CDT 03/20/2021 2:03 PM CDT Narrative [facility] - 03/20/2021 2:06 PM CDT Intra-Op Platelet Count. Please call OR14 @ #[phone] with results. Thank you! Malathi Curry MD LAB BLOOD ORDERABLES Final Res ult Performing Organization Address [facility] Co de Phone Number CHRISTINA CARRENO [address] [place] [address] * (ABNORMAL) POC Blood Gas [...] POCT ORDERABLES - [place] [address] [place] [address] * (ABNORMAL) POC Blood Gas and Chemistries, [...] DEVICE Fin al Result Performing Organization Address [facility] de Phone Number CHRISTINA CARRENO [address] [facility] [place] [address] * (ABNORMAL) aPTT (03/20/2021 6:25 AM CDT) aPTT 74(H) 27 - 37 sec [facility] Comment: Interpretive Data Therapeutic heparin range: 60.0 - 94.0 seconds. Based on correlation with therapeutic heparin activity range of 0.3-0.7 Units/mL. Current interpretive data was last revised on 2020. Blood 03/20/2021 6:25 AM CDT 03/20/2021 7:50 AM CDT Wilbur Elliott MD LAB BLOOD ORDERABLES Final Resul t Performing Organization Address [facility] de Phone Number CHRISTINA CARRENO [address] [facility] [place] [address] * (ABNORMAL) CBC without differential (03/20/2021 6:25 AM CDT) Pathologist [facility] WBC 5.7 3.8 - 9.9 K/cumm [facility] Hgb 13.3 13.0 - 17.5 g/dL [facility] Hct 43.4 38.9 - 50.3 % [facility] Plt 190 150 - 400 K/cumm [facility] MPV 8.3(L) 9.1 - 12.3 fL [facility] RBC 4.05(L) 4.30 - 5.80 M/cumm [facility] MCV 107.2(H) 81.3 - 96.4 fL [facility] Comment:Sample Specimen was short MCH 32.8 27.1 - 33.3 pg [facility] MCHC 30.6(L) 32.3 - 35.7 g/dL [facility] RDW CV 13.4 11.1 - 14.9 % [facility] RDW SD 53.1(H) 35.7 - 48.1 fL [facility] NRBC abs 0.00 0.00 - 0.01 K/cumm [facility] Blood 03/20/2021 6:25 AM CDT 03/20/2021 7:50 AM CDT Narrative [facility] - 03/20/2021 8:03 AM CDT Until heparin is discontinued. us Malathi Curry MD LAB BLOOD ORDERABLES Final Res ult CHRISTINA CARRENO [address] [place] [address] * Type and screen (03/19/2021 5:29 PM CDT) ABO Rh A Positive [facility] Viviana, indirect Negative [facility] Blood 03/19/2021 5:29 PM CDT 03/19/2021 6:12 PM CDT Narrative [facility] - 03/19/2021 7:26 PM CDT Has the patient had Daratumumab or Isatuximab in the past 6 months?->Unknown us Stevie Carver NP LAB BLOOD BANK TEST ORDER MOOKIE Final Result Performing Organization Address City/[facility]/ZIP Co de Phone Number CHRISTINA CARRENO [address] [place] [address] * Prepare RBC: 4 Units (03/19/2021 4:17 PM CDT) Product code [id number] [facility] Unit Number [id number] 6-3 [facility] Product Blood Type APOS [facility] Dispense Status RETURNED [facility] Product code [id number] [facility] Unit Number [id number] 7-8 [facility] Product Blood Type APOS [facility] Dispense Status RETURNED [facility] Product code [id number] [facility] Unit Number [id number] 5-Z [facility] Product Blood Type APOS [facility] Dispense Status RETURNED [facility] Product code [id number] [facility] Unit Number [id number] 5-M [facility] Product Blood Type APOS [facility] Dispense Status RETURNED [facility] Blood 03/19/2021 4:17 PM CDT Narrative [facility] - 03/23/2021 8:27 AM CDT Specify Procedure:->CABG 03/20 Are special requirements needed? (all products are leukoreduced)->No Date required:-[id number] LRRBC # of [id number] Reasons:-Hold for procedure (specify procedure)} Stevie Carver NP BLOOD BANK PRODUCT ORDERA BLES Final Result Performing Organization Address [facility] de Phone Number [facility] [address] [place] [address] * (ABNORMAL) aPTT (03/19/2021 5:42 AM CDT) aPTT 66(H) 27 - 37 sec [facility] Comment: Interpretive Data Therapeutic heparin range: 60.0 - 94.0 seconds. Based on correlation with therapeutic heparin activity range of 0.3-0.7 Units/mL. Current interpretive data was last revised on 2020. Blood 03/19/2021 5:42 AM CDT 03/19/2021 5:42 AM CDT Wilbur Elliott MD LAB BLOOD ORDERABLES Final Resul t Performing Organization Address [facility] de Phone Number [facility] [address] [place] [address] * (ABNORMAL) CBC without differential (03/19/2021 5:30 AM CDT) WBC 6.4 3.8 - 9.9 K/cumm [facility] Hgb 13.8 13.0 - 17.5 g/dL [facility] Hct 42.1 38.9 - 50.3 % [facility] Plt 227 150 - 400 K/cumm [facility] MPV 8.1(L) 9.1 - 12.3 fL [facility] RBC 4.24(L) 4.30 - 5.80 M/cumm [facility] MCV 99.3(H) 81.3 - 96.4 fL [facility] MCH 32.5 27.1 - 33.3 pg [facility] MCHC 32.8 32.3 - 35.7 g/dL [facility] RDW CV 13.4 11.1 - 14.9 % [facility] RDW SD 49.1(H) 35.7 - 48.1 fL [facility] NRBC abs 0.00 0.00 - 0.01 K/cumm [facility] Blood 03/19/2021 5:30 AM CDT 03/19/2021 5:43 AM CDT Narrative [facility] - 03/19/2021 5:55 AM CDT Until heparin is discontinued. Malathi Curry MD LAB BLOOD ORDERABLES Final Res ult Performing Organization Address [facility] Co de Phone Number [facility] [address] [place] [address] * (ABNORMAL) aPTT (03/18/2021 6:30 PM CDT) aPTT 61(H) 27 - 37 sec [facility] Comment: Interpretive Data Therapeutic heparin range: 60.0 - 94.0 seconds. Based on correlation with therapeutic heparin activity range of 0.3-0.7 Units/mL. Current interpretive data was last revised on 2020. Blood 03/18/2021 6:30 PM CDT 03/18/2021 6:33 PM CDT Wilbur Elliott MD LAB BLOOD ORDERABLES Final Resul t Performing Organization Address [facility] Co de Phone Number [facility] [address] [place] [address] * TRANSTHORACIC ECHO (TTE) COMPLETE W DOPPLER/CF WO CONTRAST (03/18/2021 3:30 PM CDT) Anatomical Region Laterality Modality Ultrasound 03/18/2021 3:06 PM CDT Narrative 03/18/2021 4:57 [place] [address] Echocardiogram Report Patient Name: JEANIE CALI : 1965 Study Date: 03/18/2021 3:06:13 PM Gender: M Tech: Location: [id number] Ref.Provider: STEVIE CARVER Height(Cm): 170 BSA: 1.76 [...] Procedure Note Ricky Perkins MD - 03/18/2021 [place] [address] Echocardiogram Report Patient Name: JEANIE CALIPatient ID: [id number] : [id number] Date: 03/18/2021 3:06:13 PM Gender: MAccession #: [id number] Tech: MBLocation: [id number] Ref.Provider: STEVIE CARVERHeight(Cm): 170 BSA: 1.76Weight(Kg): 65.3 Heart Rate: 101BP: 119/88 Quality: GoodOrder Provider: STEVIE CARVER Procedures: Echocardiographic Report: Transthoracic [...] - 100 ] msec MVA4.40 MV Decel [id number] [ 104 - 258 ] msec E'0.07 [...] aPTT 61(H) 27 - 37 sec CHRISTINA Comment: Interpretive Data Therapeutic heparin range: 60.0 - 94.0 seconds. Based on correlation with therapeutic heparin activity range of 0.3-0.7 Units/mL. Current interpretive data was last revised on 2020. Blood 03/18/2021 1:21 PM CDT 03/18/2021 2:25 PM CDT Wilbur Elliott MD LAB BLOOD ORDERABLES Final Resul t Performing Organization Address [facility] Co de Phone Number CHRISTINA [address] [place] [address] * (ABNORMAL) aPTT (03/18/2021 5:41 AM CDT) aPTT 57(H) 27 - 37 sec CHRISTINA Comment: Interpretive Data Therapeutic heparin range: 60.0 - 94.0 seconds. Based on correlation with therapeutic heparin activity range of 0.3-0.7 Units/mL. Current interpretive data was last revised on 2020. Blood 03/18/2021 5:41 AM CDT 03/18/2021 6:36 AM CDT Wilbur Elliott MD LAB BLOOD ORDERABLES Final Resul t Performing Organization Address City/[facility] Co de Phone Number CHRISTINA [address] [place] [address] * (ABNORMAL) CBC without differential (03/18/2021 5:41 AM CDT) WBC 7.5 3.8 - 9.9 K/cumm CHRISTINA Hgb 14.2 13.0 - 17.5 g/dL [facility] Hct 45.0 38.9 - 50.3 % [facility] Plt 259 150 - 400 K/cumm [facility] MPV 8.1(L) 9.1 - 12.3 fL [facility] RBC 4.41 4.30 - 5.80 M/cumm [facility] MCV 102.0(H) 81.3 - 96.4 fL [facility] MCH 32.2 27.1 - 33.3 pg [facility] MCHC 31.6(L) 32.3 - 35.7 g/dL [facility] RDW CV 13.8 11.1 - 14.9 % [facility] RDW SD 52.7(H) 35.7 - 48.1 fL [facility] NRBC abs 0.00 0.00 - 0.01 K/cumm [facility] Blood 03/18/2021 5:41 AM CDT 03/18/2021 6:36 AM CDT Narrative [facility] - 03/18/2021 6:50 AM CDT Until heparin is discontinued. Malathi Curry MD LAB BLOOD ORDERABLES Final Res ult [facility] [address] [place] [address] * (ABNORMAL) Hemoglobin A1c (03/17/2021 6:10 AM CDT) Hgb A1C 5.7(H) 4.0 - 5.6 % [facility] Estimated Average Glucose 117 mg/dL [facility] Comment: The ADA recommends reporting an estimated Average Glucose (eAG) with all Hemoglobin A1c results using the equation derived from a study of 507 normal and diabetic adults. ??Minority populations were underrepresented and children were not included. ?? (Diabetes Care 31:1407-5883, 2008). ??The eAG is not equivalent to a fasting glucose. Blood 03/17/2021 6:10 AM CDT 03/17/2021 11:52 AM CDT Malathi Curry MD LAB BLOOD ORDERABLES Final Res ult Performing Organization Address [facility] de Phone Number GRISELLUIZA CARRENO [address] [facility] [place] [address] * (ABNORMAL) aPTT (03/17/2021 6:10 AM CDT) [...] ORDERABLES Final Resul t Performing Organization Address [facility] de Phone Number CHRISTINA CARRENO [address] [facility] [place] [address] * (ABNORMAL) aPTT (03/17/2021 12:35 AM CDT) aPTT 66(H) 27 - 37 sec CHRISTINA Comment: Interpretive Data Therapeutic heparin range: 60.0 - 94.0 seconds. Based on correlation with therapeutic heparin activity range of 0.3-0.7 Units/mL. Current interpretive data was last revised on 2020. Blood 03/17/2021 12:3 5 AM CDT 03/17/2021 1:10 AM CDT Wilbur Elliott MD LAB BLOOD ORDERABLES Final Resul t Performing Organization Address [facility] de Phone Number GRISELLUIZA CARRENO [address] [facility] [place] [address] * (ABNORMAL) CBC without differential (03/17/2021 12:35 AM CDT) WBC 7.3 3.8 - 9.9 K/cumm CHRISTINA Hgb 14.7 13.0 - 17.5 g/dL [facility] Hct 44.4 38.9 - 50.3 % [facility] Plt 303 150 - 400 K/cumm [facility] MPV 8.1(L) 9.1 - 12.3 fL [facility] RBC 4.54 4.30 - 5.80 M/cumm CHRISTINA MCV 97.8(H) 81.3 - 96.4 fL [facility] MCH 32.4 27.1 - 33.3 pg [facility] MCHC 33.1 32.3 - 35.7 g/dL [facility] RDW CV 14.4 11.1 - 14.9 % CHRISTINA RDW SD 52.4(H) 35.7 - 48.1 fL [facility] NRBC abs 0.00 0.00 - 0.01 K/cumm [facility] Blood 03/17/2021 12:3 5 AM CDT 03/17/2021 1:10 AM CDT Narrative [facility] - 03/17/2021 1:17 AM CDT Until heparin is discontinued. us Malathi Curry MD LAB BLOOD ORDERABLES Final Res ult CHRISTINA [address] [place] [address] * COVID-19 Coronavirus RNA Nasopharyngeal (03/16/2021 7:19 PM CDT) COVID-19 RNA Negative Negative [facility] Comment: Interpretive data: Synonyms for this test include: PCR and NAAT . ??This test is performed using the [employer] Xpert Xpress assay. This is a real-time [...] June 29, 2020. Employeed in healthcare? Unknown [facility] status? No [facility] Group care resident? No [facility] Hospitalized? Yes [facility] Is patient in ICU? No CHRISTINA CARRENO Symptomatic as defined by CDC? No CHRISTINA Nasopharyngeal 03/16/2021 7: 19 PM CDT 03/16/2021 7:23 PM CDT Narrative CHRISTINA CARRENO - 03/16/2021 8:53 PM CDT What is the reason for testing?->Asymptomatic screening prior to procedure or surgery us Gina Anne [employer]USEMENT CENTRE MANAGER LAB MICROBIOLOGY - GENERA L ORDERABLES Final Result CHRISTINA [address] [place] [address] * eGFR (03/16/2021 7:02 PM CDT) eGFR 54 mL/min/1.7 3 m2 CHRISTINA CARRENO Comment: Interpretive [...] LAB BLOOD ORDERABLES Final Resul t CHRISTINA [address] [place] [address] * (ABNORMAL) Comprehensive metabolic panel (03/16/2021 7:02 PM CDT) Sodium 142 135 - 145 mmol/L CERNER [...] CH Glucose 128 70 - 199 mg/dL [facility] Comment: [...] pl 6.9 6.5 - 8.5 g/dL [facility] Albumin 4.1 3.5 - 5.0 g/dL [facility] Alk phos 96 40 - 130 Units/L [facility] ALT 21 7 - 55 Units/L [facility] AST 21 10 - 50 Units/L [facility] Blood 03/16/2021 7:02 PM CDT 03/16/2021 7:12 PM CDT us Wilbur Elliott MD LAB BLOOD ORDERABLES Final Resul t Performing Organization Address City/State/[facility] de Phone Number CHRISTINA CARRENO [address] [place] [address] * (ABNORMAL) aPTT (03/16/2021 7:02 PM CDT) aPTT 66(H) 27 - 37 sec [facility] Comment: Interpretive Data Therapeutic heparin range: 60.0 - 94.0 seconds. Based on correlation with therapeutic heparin activity range of 0.3-0.7 Units/mL. Current interpretive data was last revised on 2020. Blood 03/16/2021 7:02 PM CDT 03/16/2021 7:12 PM CDT Antelmo Proctor MD LAB BLOOD ORDERABLES Final R esult Performing Organization Address [facility] de Phone Number CHRISTINA CARRENO [address] [place] [address] * Urinalysis reflex to microscopic and culture [...] microscopic UA and culture not met. [facility] Urine, clean voided 03/16/2021 1:40 PM CDT [...] tendency for uric acid stone formation. Source: [facility] [employer]. Last revised 06-05-2017 us Gina Anne NP LAB MICROBIOLOGY - GENERA L ORDERABLES Final Result CHRISTINA [address] Department of Laboratories [place] [phone] * XR Chest 1 Vw Portable (03/16/2021 [...] by: Shamir Manley M.D. us Stevie Carver NP IMG XR PROCEDURES Final R esult * [...] NP LAB BLOOD ORDERABLES Gisselle l Result CHRISTINA CARRENO [address] [place] [address] * (ABNORMAL) aPTT (03/16/2021 10:50 AM CDT) aPTT 149(H) 27 - 37 sec CHRISTINA CARRENO Comment: Interpretive Data Therapeutic heparin range: 60.0 - 94.0 seconds. Based on correlation with therapeutic heparin activity range of 0.3-0.7 Units/mL. Current interpretive data was last revised on 2020. Blood 03/16/2021 10:5 0 AM CDT 03/16/2021 11:01 AM CDT Narrative CHRISTINA CARRENO - 03/16/2021 11:24 AM CDT Unless preformed in the last 48 hours. Draw prior to heparin administration. Mery Walker NP LAB BLOOD ORDERABLES Gisselle l Result Performing Organization Address [facility]/ZIP Co de Phone Number CHRISTINA CARRENO [address] Department of Laboratories [place], [place] [id number] * Protime-INR (03/16/2021 10:50 AM CDT) Pathologist [facility] PT 10.7 9.5 - 13.6 sec [facility] INR 1.0 0.9 - 1.2 [facility] Comment: Interpretive data Oral anticoagulant therapeutic ranges: Venous thromboembolism prophylaxis or treatment: 2.0-3.0 CARDIOLOGY Standard range: 2.0-3.0 High-intensity range: 2.5-3.5 Refer to indication-specific guidelines for appropriate target ranges for prosthetic heart valve replacement. Current interpretive data was last revised on 2019. Blood 03/16/2021 10:5 0 AM CDT 03/16/2021 11:01 AM CDT Narrative [facility] - 03/16/2021 11:11 AM CDT Unless preformed in the last 48 hours. Draw prior to heparin administration. us Mery Walker AMUSEMENT CENTRE MANAGER LAB BLOOD ORDERABLES Gisselle samuels Result Performing Organization Address [facility] Co de Phone Number CHRISTINA CARRENO [address] Department of Laboratories [place], [place] [id number] * (ABNORMAL) CBC without differential (03/16/2021 10:50 AM CDT) Pathologist [facility] WBC 7.8 3.8 - 9.9 K/cumm [facility] Hgb 15.9 13.0 - 17.5 g/dL [facility] Hct 47.5 38.9 - 50.3 % [facility] Plt 285 150 - 400 K/cumm [facility] MPV 7.7(L) 9.1 - 12.3 fL [facility] RBC 4.88 4.30 - 5.80 M/cumm [facility] MCV 97.3(H) 81.3 - 96.4 fL [facility] MCH 32.6 27.1 - 33.3 pg [facility] MCHC 33.5 32.3 - 35.7 g/dL [facility] RDW CV 14.4 11.1 - 14.9 % [facility] RDW SD 51.9(H) 35.7 - 48.1 fL [facility] NRBC abs 0.00 0.00 - 0.01 K/cumm [facility] Blood 03/16/2021 10:5 0 AM CDT 03/16/2021 11:01 AM CDT Narrative [facility] - 03/16/2021 11:05 AM CDT Unless preformed in the last 48 hours. Draw prior to heparin administration. Mery Walker NP LAB BLOOD ORDERABLES [place] [address] [address] [place] [address] * Comprehensive metabolic panel (03/16/2021 10:50 AM [...] 0 AM CDT 03/16/2021 11:01 AM CDT eMry Walker AMUSEMENT CENTRE MANAGER LAB BLOOD ORDERABLES Gisselle l Result CHRISTINA CARRENO [address] [place] [address] * Magnesium (03/16/2021 10:50 AM CDT) Magnesium 2.1 1.4 - 2.5 mg/dL [facility] Blood 03/16/2021 10:5 0 AM CDT 03/16/2021 11:01 AM CDT Mery Walker AMUSEMENT CENTRE MANAGER LAB BLOOD ORDERABLES Gisselle l Result Performing Organization Address [facility] Co de Phone Number CHRISTINA CARRENO [address] [place] [address] documented in this encounter Visit Diagnoses Diagnosis Coronary artery disease involving [place] heart without angina pectoris- Primary Coronary artery disease involving [place] coronary artery of [place] heart without angina pectoris documented in this encounter Admitting Diagnoses Diagnosis Coronary artery disease involving [place] heart without angina pectoris documented in this encounter Administered Medications Inactive Administered Medications - up to 3 most recent administrations Medication Order MAR Action Action Date Dose Rate Site acetaminophen (TYLENOL) tablet 1,000 mg 1,000 mg, oral, Every 6 hours scheduled, First dose on Fri03/21/21 at 1200 Given 03/24/2021 6:10 AM CDT 1,000 mg Given 03/24/2021 12:26 AM CDT 1,000 mg Given 03/23/2021 5:53 PM CDT 1,000 mg acetaminophen (TYLENOL) tablet 650 mg 650 mg, oral, Every 6 hours PRN, 2nd line for pain, Starting on 03/24/21 at 1042 albumin 5 % bottle 12.5 g 12.5 g, intravenous, Every 15 min PRN, systolic BP less than 95, SVR greater than 1200, PAD less than 18, Starting on Fri03/20/21 at 1628, For 3 doses, Up to 3 doses. , Indications: HypotensionIndications:Hypotension Given 03/20/2021 6:00 PM CDT 12.5 g Given 03/20/2021 5:20 PM CDT 12.5 g albumin 5 % bottle 25 g 25 g, intravenous, Once, On Fri03/20/21 at 1730, For 1 dose, Indications: HypovolemiaIndications:Hypovolemia Given 03/20/2021 5:11 PM CDT 25 g albuterol 2.5 mg /3 mL (0.083 %) nebulizer solution 2.5 mg 2.5 mg, nebulization, Every 4 hours (respiratory scientist), First dose on Fri03/20/21 at 1700, Indications: Bronchospastic Pulmonary DiseaseIndications:Bronchospastic Pulmonary Disease Given 03/22/2021 12:55 PM CDT 2.5 mg Given 03/22/2021 5:49 AM CDT 2.5 mg Given 03/22/2021 1:51 AM CDT 2.5 mg albuterol 2.5 mg /3 mL (0.083 %) nebulizer solution 2.5 mg 2.5 mg, nebulization, Every 6 hours (respiratory scientist), First dose (after last modification) on Gloria 03/22/21 at 2100, Indications: Bronchospastic Pulmonary DiseaseIndications:Bronchospastic Pulmonary Disease Given 03/23/2021 2:21 AM CDT 2.5 mg Given 03/22/2021 9:34 PM CDT 2.5 mg albuterol 2.5 mg /3 mL (0.083 %) nebulizer solution 2.5 mg 2.5 mg, nebulization, Every 6 hours PRN (respiratory scientist), wheezing, Starting on Fri03/23/21 at 0845, Indications: Bronchospastic Pulmonary DiseaseIndications:Bronchospastic Pulmonary Disease amLODIPine (NORVASC) tablet 10 mg 10 mg, oral, Daily, First dose on Fri03/16/21 at 1115 Given 03/20/2021 9:00 AM CDT 10 mg Given 03/18/2021 9:27 AM CDT 10 mg Given 03/17/2021 8:36 AM CDT 10 mg aspirin chewable tablet 81 mg 81 mg, oral, Daily, First dose on Fri03/16/21 at 1115, Indications: prevention of thrombosisIndications:prevention of thrombosis Given 03/20/2021 9: 00 AM CDT 81 mg Given 03/18/2021 9:27 AM CDT 81 mg Given 03/17/2021 8:36 AM CDT 81 mg aspirin enteric coated tablet 81 mg 81 [...] Given 03/23/2021 8:33 AM CDT 150 mg calcium chloride 1 g in sodium chloride 0.9% 100 mL IVPB 1 g, intravenous, at 110 mL/hr, Administer over 60 Minutes, Once, On Fri03/20/21 at 1830, For 1 dose, Central line preferred, Indications: hypocalcemiaIndications:hypocalcem ia New Bag 03/20/2021 6:32 PM CDT 1 g 110 mL/hr carvediloL (COREG) tablet 6.25 mg 6.25 mg, oral, 2 times daily with meals (bkfst, dinner), First dose on Fri03/16/21 at 1800 Given 03/20/2021 9:00 AM CDT 6.25 mg Given 03/19/2021 5:35 PM CDT 6.25 mg Given 03/18/2021 5:32 PM CDT 6.25 mg carvediloL (COREG) tablet 6.25 mg 6.25 mg, oral, 2 times daily with meals (bkfst, dinner), First dose on Gloria 03/22/21 at 0830 Given 03/25/2021 10:00 AM CDT 6.25 mg Given 03/24/2021 5:59 PM CDT 6.25 mg Given 03/24/2021 8:31 AM CDT 6.25 mg ceFAZolin (ANCEF) 1 gram/10 mL in sterile water (premix) 1,000 mg 1,000 mg, intravenous, at 200 mL/hr, Administer over 3 Minutes, Every 8 hours, First dose on Fri03/20/21 at 2300, For 5 doses, Start 8 hours after last tyra-operative dose., Indications: Prophylaxis, SurgicalIndications:Prophylaxis, Surgical Given 03/22/2021 8:00 AM CDT 1,000 mg 200 mL/hr Given 03/21/2021 10:48 PM CDT 1,000 mg 200 mL/hr Given 03/21/2021 2:35 PM CDT 1,000 mg 200 mL/hr cholestyramine-aspartame (QUESTRAN LIGHT) 4 gram packet 1 [...] Given 03/23/2021 8:32 AM CDT 75 mg dexmedeTOMIDine in 0.9% sodium chloride (PRECEDEX) 400 mcg/100 mL (4 mcg/mL) infusion (premix) 0-1.5 mcg/kg/hr ? 66 kg (0-24.75 mL/hr), 4 mcg/mL, intravenous, Titrated, Starting on Fri03/20/21 at 1745, Until Fri03/21/21 at 0821, Titration instructions: Titrate, Initial dose: 0.2 mcg/kg/hr, Titrate: Up/Down, Titrate by: 0.1 mcg/kg/hr, Every: 30 minutes, Goal: RASS, RASS Goal: 0, -1, -2, Routine Rate/Dose Change 03/20/2021 4:45 PM CDT 1 mcg/kg/hr 16.5 mL/hr docusate sodium (COLACE) capsule 100 mg 100 mg, oral, 2 times daily, First dose on Fri03/26/21 at 0900, Indications: constipationIndicati ons:constipation enoxaparin (LOVENOX) syringe 40 mg 40 mg, subcutaneous, Daily (for enoxaparin), First dose on Gloria 03/22/21 at 2100, Indications: Deep Vein Thrombosis Prevention, On hold since Fri03/23/2021 at 0856 until manually unheldIndications:De ep Vein Thrombosis Prevention Given 03/22/2021 9:35 PM CDT 40 mg Left Lower Abdomen EPINEPHrine in 0.9% sodium chloride 2 mg/100 [...] PM CDT 0.03 mcg/kg/min 5 .94 mL/hr famotidine (PEPCID) injection 20 mg 20 mg, intravenous, Administer over 2 Minutes, Every 12 hours scheduled, First dose on Fri03/20/21 at 2100, Indications: Prevention of Stress UlcerIndications:Prevention of Stress Ulcer Given 03/21/2021 8:03 AM CDT 20 mg Given 03/20/2021 8:17 PM CDT 20 mg famotidine (PEPCID) tablet 20 mg 20 mg, oral, 2 times daily, First dose on Fri03/21/21 at 1130 Given 03/25/2021 9:59 AM CDT 20 mg Given 03/24/2021 9:01 PM CDT 20 mg Given 03/24/2021 8:32 AM CDT 20 mg fentaNYL (SUBLIMAZE) 50 mcg/mL preservative free injection - ADS Override Pull Starting on Fri03/20/21 at 1637, For 1 dose, Paul uBck: cabinet override fentaNYL (SUBLIMAZE) preservative free injection 50 mcg 50 mcg, intravenous, Every 1 hour PRN, 1st line for pain, Starting on Fri03/20/21 at 1628, Indications: PainIndications:Pain Given 03/21/2021 8:00 AM CDT 50 m cg Given 03/21/2021 6:03 AM CDT 50 mcg Given 03/21/2021 12:26 AM CDT 50 mcg furosemide (LASIX) 10 mg/mL injection 40 mg 40 mg, intravenous, Once, On Gloria 03/22/21 at 0830, For 1 dose, For IV push: administer doses < 160 mg at a rate of 20 -40 mg/min. Doses >/= 160 mg should be administered no faster than 4 mg/min. Room temperature only Given 03/22/2021 8:1 6 AM CDT 40 mg furosemide (LASIX) 10 mg/mL injection 40 mg 40 mg, intravenous, Daily, First dose on Fri03/23/21 at 1230, Room temperature only Given 03/24/2021 8:32 AM CDT 40 mg Given 03/23/2021 12:23 PM CDT 40 mg heparin in 0.45% sodium chloride 25,000 units/250 mL (100 units/mL) infusion (premix) 0-33 Units/kg/hr ? 65.3 kg (0-21.549 mL/hr, rounded to 0-21.55 mL/hr), intravenous, Titrated, Starting on Fri03/16/21 at 1100, WEIGHT-BASED HEPARIN INFUSION Initial rate:: 16 Units/kg/hr. Max initial rate 1,000 units/hr. Adjust infusion based upon nomogram: PTT less than 40 seconds: Bolus if ordered (see PRN bolus order) , then increase infusion rate 3 units/kg/hour PTT 40 - 50.9 seconds: Bolus if ordered (see PRN bolus order), then increase infusion rate 2 units/kg/hour PTT 51 - 59.9 seconds: No bolus, increase infusion rate 1 unit/kg/hour PTT 60 - 94.9 seconds: No change PTT 95 - 104.9 seconds: No bolus, decrease infusion rate 1 unit/kg/hour PTT 105 - 114.9 seconds: Hold infusion for 30 minutes, then decrease infusion rate 2 units/kg/hour PTT 115 or greater seconds: Hold infusion for 1 hour, then decrease infusion rate 3 units/kg/hour Draw STAT PTT 6 hrs after initial heparin bolus, draw STAT PTT 6 hours after each dose/rate change, and every 6 hours until 2 consecutive PTTs are within therapeutic range. Once two consecutive PTT's are therapeutic (60-94.9 seconds), then draw PTT every AM until heparin is discontinued., Indications: Acute Coronary SyndromeIndications:Acut e Coronary Syndrome Rate/Dose Verify 03/19/2021 9:59 PM CDT 14 Units/kg/hr 9.14 mL/hr New Bag 03/19/2021 3:00 PM CDT 14 Units/kg/hr 9.14 mL/h r Rate/Dose Change 03/18/2021 7:31 AM CDT 14 Units/kg/hr 9.1 4 mL/hr HYDROmorphone (DILAUDID) injection 0.5 mg 0.5 mg, intravenous, Administer over 2 Minutes, Every 4 hours PRN, breakthrough pain, if pain still persists and is >6 after oxycodone, Starting on Fri03/21/21 at 0821 Given 03/22/2021 2:35 PM C DT 0.5 mg Given 03/22/2021 10:19 AM CDT 0.5 mg Given 03/22/2021 6:18 AM CDT 0.5 mg ketorolac (TORADOL) 15 mg/mL injection 15 mg 15 mg, intravenous, Once, On Fri03/23/21 at 0915, For 1 dose, For Adult IV push, administer over 15 seconds Given 03/23/2021 8:59 AM CDT 15 mg magnesium sulfate 2 g/50 mL in water (premix) 2 g 2 g, intravenous, Administer over 60 Minutes, Once, On Fri03/21/21 at 0545, For 1 dose New Bag 03/21/2021 5:36 AM CDT 2 g magnesium sulfate 2 g/50 mL in water (premix) 2 g 2 g, intravenous, Administer over 60 Minutes, Once, On Gloria 03/22/21 at 0515, For 1 dose New Bag 03/22/2021 5:06 AM CDT 2 g milrinone in dextrose 5% (PRIMACOR) 20 mg/100 mL (200 mcg/mL) infusion (premix) 0.3 mcg/kg/min ? 66 kg (5.94 mL/hr), 200 mcg/mL, intravenous, Titrated, Starting on Fri03/20/21 at 1730, Until Fri03/21/21 at 0821, Initial rate: Do not titrate, Do not mix with furosemide, Routine Rate/Dose Verify 03/21/2021 12:00 AM CDT 0.15 mcg/kg/min 2.97 mL/hr Rate/Dose Verify 03/20/2021 9:55 PM CDT 0.15 mcg/kg/min 2. 97 mL/hr Rate/Dose Verify 03/20/2021 7:54 PM CDT 0.15 mcg/kg/min 2. 97 mL/hr nitroglycerin (NITRO-BID) 2 % ointment 0.5 inch 0.5 inch, topical, Administer over 7 Hours, 2 times daily (for nitrates), First dose on 03/17/21 at 1130, Apply to chest or back with the applicator or dose-measuring paper. Wear gloves to apply to affected area. Wipe clean prior to reapplying next dose. May cover with a non-occlusive dressing., Apply to affected area: chest Medication Applied 03/20/2021 9:00 AM CDT 0.5 inches Chest Medication Applied 03/19/2021 2:54 PM CDT 0.5 inches Other (Comment) Medication Applied 03/19/2021 8:09 AM CDT 0.5 inches Other (Comment) norepinephrine in 0.9% sodium chloride (LEVOPHED) 8,000 mcg/250 mL (32 mcg/mL) infusion (premix) 0-2 mcg/kg/min ? 66 kg (0-247.5 mL/hr), 32 mcg/mL, intravenous, Titrated, Starting on Fri03/20/21 at 1730, Until Fri03/21/21 at 0821, Initial rate: 0.05 mcg/kg/min, Titrate: Up/Down, Titrate by: 0.01 mcg/kg/min, Every: 2 minutes, Goal: SBP, SBP Goal: 90-110 mmHg, Routine Rate/Dose Change 03/21/2021 6:00 AM CDT 0.04 mcg/kg/min 4.95 mL/hr Rate/Dose Verify 03/21/2021 4:00 AM CDT 0.06 mcg/kg/min 7. 43 mL/hr Rate/Dose Change 03/21/2021 1:58 AM CDT 0.07 mcg/kg/min 8. 66 mL/hr norepinephrine in 0.9% sodium chloride (LEVOPHED) 8,000 mcg/250 mL (32 mcg/mL) infusion (premix) 0-2 mcg/kg/min ? 66 kg (0-247.5 mL/hr), 32 mcg/mL, intravenous, Titrated, Starting on Fri03/21/21 at 0900, Until Gloria 03/22/21 at 0751, Initial rate: 0.05 mcg/kg/min, Titrate: Up/Down, Titrate by: 0.01 mcg/kg/min, Every: 2 minutes, Goal: SBP, SBP Goal: 90-110 mmHg, Routine Rate/Dose Change 03/21/2021 9:30 AM CDT 0.02 mcg/kg/min 2.48 mL/hr Rate/Dose Verify 03/21/2021 9:00 AM CDT 0.04 mcg/kg/min 4. 95 mL/hr ondansetron (ZOFRAN) 4 mg/2 mL injection - ADS Override Pull Starting on Fri03/21/21 at 0817, For 1 dose, Paul Buck: cabinet override ondansetron (ZOFRAN) injection 4 mg 4 mg, [...] Given 03/24/2021 2:22 PM CDT 10 mg oxyCODONE (ROXICODONE) tablet 5 mg 5 mg, oral, Every 4 hours PRN, 1st line for pain, Starting on Fri03/21/21 at 0827, May repeat with additional 5 mg if pain not controlled after 30 minutes, Indications: PainIndications:Pain Given 03/22/2021 12:44 AM CDT 5 mg Given 03/21/2021 10:53 PM CDT 5 mg oxyCODONE-acetaminophen (PERCOCET) 5-325 mg per tablet 2 tablet 2 tablet, oral, Every 4 hours PRN, 2nd line for pain, Starting on Fri03/20/21 at 1656, Indications: PainIndications:Pain Given 03/21/2021 2:06 AM CDT 2 ta blets Given 03/20/2021 8:40 PM CDT 2 tablets polyethylene glycol (MIRALAX) packet 17 g 17 g, oral, Daily, First dose on Fri03/21/21 at 0900, Indications: constipationIndications:constipation Given 03/22/2021 8:16 AM CDT 17 g Given 03/21/2021 8:03 AM CDT 17 g potassium chloride ER (KLOR-CON) extended release tablet 40 mEq 40 mEq, oral, Once, On 03/24/21 at 1030, For 1 dose, Do not crush, chew, cut, dissolve, open or otherwise manipulate tablet/capsule. Given 03/24/2021 12:46 PM CDT 40 mEq ramelteon (ROZEREM) tablet 8 mg 8 mg, oral, Nightly PRN, sleep, Starting on Fri03/21/21 at 1938, Indications: Sleep-Onset InsomniaIndications:Sleep-Onset Insomnia Given 03/24/2021 9:02 PM CDT 8 mg Given 03/23/2021 7:53 PM CDT 8 mg [...] 03/23/2021 8:33 AM CDT 2 tablets sodium bicarbonate 8.4 % (1 mEq/mL) injection 50 mEq 50 mEq, intravenous, Once, On Fri03/20/21 at 2230, For 1 dose Given 03/20/2021 10:12 PM CDT 50 mEq sodium chloride 0.9% 0.9% infusion - ADS Override Pull Starting on Fri03/20/21 at 1630, For 1 dose, Lucinda Snyder: cabinet override sodium chloride 0.9% flush 0.5-20 mL 0.5-20 mL, intra-catheter, Every 8 hours scheduled, First dose on Fri03/16/21 at 1400, Flush volume based on line type and size. Given 03/19/2021 9:29 PM CDT 10 mL Given 03/17/2021 3:13 PM CDT 10 mL Given 03/16/2021 2:00 PM CDT 10 mL sodium chloride 0.9% flush 0.5-20 mL 0.5-20 [...] PM CDT 10 mL sodium chloride 0.9% infusion 20 mL/hr, intravenous, Continuous, Starting on Fri03/20/21 at 1700 Rate/Dose Verify 03/21/2021 4:00 AM CDT 20 mL/hr 20 mL/hr Rate/Dose Verify 03/21/2021 1:58 AM CDT 20 mL/hr 20 mL/h r Rate/Dose Verify 03/21/2021 12:00 AM CDT 20 mL/hr 20 mL/ hr sodium chloride 0.9% solution 500 mL 500 mL, intra-catheter, Continuous, Starting on Fri03/20/21 at 1730 New Bag 03/20/2021 5:12 PM CDT 500 mL vancomycin 1,000 mg/200 mL in dextrose 5% (premix) 1,000 mg 1,000 mg, intravenous, Administer over 60 Minutes, Every 12 hours, First dose on Fri03/20/21 at 2300, For 3 doses, Start 12 hours after pre-operative dose., Indications: Prophylaxis, SurgicalIndications:Prophylaxis, Surgical New Bag 03/21/2021 10:49 PM CDT 1,000 mg New Bag 03/21/2021 12:02 PM CDT 1,000 mg New Bag 03/20/2021 10:15 PM CDT 1,000 mg documented in this encounter Discontinued Medications Medication [...] RN) 0026 (Given - Provider: Marco A Morrison, AUTUMN)0610 (Given - Provider: Marco A Morrison RN) albuterol 2.5 mg /3 mL (0.083 %) nebulizer solution 2.5 mg (CANCELED) 2.5 mg, nebulization, Every 6 hours (respiratory scientist), First dose (after last modification) on Fri03/22/21 at 2100, Indications: Bronchospastic Pulmonary Disease 0221 (Given - Provider: Adina Jimenez RRT) aspirin enteric coated tablet 81 mg(Linked Group 1) 81 mg, oral, Daily, First dose on Fri03/20/21 at 1700, Administer EC oral tablet if able to swallow medications. Do not crush, chew, cut, dissolve, open or otherwise manipulate tablet/capsule. 0833 (Given - Provider: Rich Squires RN) 0831 (Given - Provider: Rich Squires, UATUMN) 1000 (Given - Provider: Pat White, AUTUMN) buPROPion XL (WELLBUTRIN XL) 24 hour tablet 150 mg 150 mg, oral, Daily, First dose on Gloria 03/22/21 at 0900, Do not crush, chew, cut, dissolve, open or otherwise manipulate tablet/capsule. 0833 (Given - Provider: Rich Squires RN) 0831 (Given - Provider: Rich Squires RN) 1000 (Given - Provider: Pat White, AUTUMN) carvediloL (COREG) tablet 6.25 mg 6.25 mg, oral, 2 times daily with meals (bkfst, dinner), First dose on Gloria 03/22/21 at 0830 0833 (Given - Provider: Rich Squires RN)1755 (Given - Provider: Rich Squires RN) 0831 (Given - Provider: Rich Squires RN)1759 (Given - Provider: Rich Squires RN) 1000 [...] RN) 0832 (Given - Provider: Rich Squires RN)2101 (Given - Provider: Meghan Hand RN) 0959 (Given - Provider: Pat White, AUTUMN) furosemide (LASIX) 10 mg/mL injection 40 mg (CANCELED) 40 mg, intravenous, Daily, First dose on Fri03/23/21 at 1230, Room temperature only 1223 (Given - Provider: Rich Squires RN) 0832 (Given - Provider: Rich Squires RN) furosemide (LASIX) tablet 40 mg 40 mg, oral, Once, On 03/24/21 at 1030, For 1 dose 1147 (Not [...] mEq (COMPLETED) 40 mEq, oral, Once, On 03/24/21 at 1030, For 1 dose, Do not crush, chew, cut, dissolve, open or otherwise manipulate tablet/capsule. 1246 (Given - Provider: Rich Squires RN) rosuvastatin (CRESTOR) tablet 20 mg 20 mg, oral, Nightly, First dose on Fri03/16/21 at 2100 195 (Given - Provider: Marco A Morrison RN) 2100 (Given - Provider: Meghan Hand RN) senna-docusate (PERICOLACE) 8.6-50 mg per tablet 2 tablet 2 tablet, oral, 2 times daily, First dose on Fri03/20/21 at 2100 0833 (Given - Provider: Rich Squires RN)1953 (Given - Provider: Marco A Morrison RN) [...] Reason: Other)1247 (Given - Provider: Rich Squires RN)2103 (Given - Provider: Meghan Hand RN) 0659 (Not Given - Provider: Meghan Hand RN - Reason: Other)1301 (Not Given - Provider: Pat White, AUTUMN - Reason: Loss of IV access) PRN Medication Order 03/23/2021 03/24/2021 03/25/2021 acetaminophen (TYLENOL) tablet 650 mg 650 mg, oral, Every 6 hours PRN, 2nd line for pain, Starting on 03/24/21 at 1042 albuterol 2.5 mg /3 mL (0.083 %) nebulizer solution 2.5 mg 2.5 mg, nebulization, Every 6 hours PRN (respiratory scientist), wheezing, Starting on Fri03/23/21 at 0845, Indications: [...] pain, Starting on Fri03/22/21 at 0142, Indications: Pain 0227 (Given - [...] 1 furosemide (LASIX) tablet 40 mg 1 albuterol 2.5 mg /3 mL (0.08 3 %) nebulizer solution 2.5 mg 1 03/23/2021 bisacodyL (DULCOLAX) suppository 10 mg 1 furosemide (LASIX) 10 mg/mL injection 40 mg 1 03/21/2021 ketorolac (TORADOL) 15 mg/mL injection 15 mg 1 03/21/2021 oxyCODONE (ROXICODONE) tablet 10 mg 1 03/21 oxyCODONE (ROXICODONE) tablet 5 mg 1 2020 albumin 5 % bottle 12.5 g 1 03/20/2021 aspirin chewable tablet 81 mg 1 03/20/2021 ceFAZolin (ANCEF) 1 gram/10 mL in sterile water (premix) 1 03/20/2021 ceFAZolin (ANCEF) 1 gram/10 mL in sterile water (premix) 2,000 mg 1 03/20/2021 dextrose (D10W) 10% bolus 1-500 mL 1 2020 docusate (COLACE) 10 mg/mL o ral liquid 100 mg 1 03/20/2021 electrolyte-A (PLASMA-LYTE) bolus 1 021 heparin 1,000 unit/mL injection 1 insulin regular (HumuLIN R, NovoLIN R) 100 Units in sodium chloride 0.9% 100 mL (1 Units/mL) infusion 1 03/20/2021 insulin regular bolus from bag 1-10 Units 1 03/20/2021 papaverine injection 1 03/20/2021 potassium chloride 20 mEq/50 mL in sterile water (premix) 20 mEq 1 03/20/2021 prochlorperazine (COMPAZINE) injection 10 mg 1 03/20/2021 sodium chloride 0.9% irrigation 1 sodium chloride 0.9% solution 2 03/20/2021 vancomycin (VANCOCIN) 2,000 mg in sodium chloride 0.9% 2 mL topical solution 1 03/20/2021 vancomycin 1,000 mg/200 mL i n dextrose 5% (premix) 1,000 mg 1 03/20/2021 sodium chloride 0.9% infusion 1 03/19/2021 heparin 1,000 unit/mL inject ion 2,000 Units 1 03/16/2021 heparin 1,000 unit/mL inject ion 3,000 Units 1 03/16/2021 hydrALAZINE (APRESOLINE) injection 10 mg 1 03/16/2021 sodium chloride 0.9% flush 0.5-20 mL 1 02/24 Lab Orders Without Results Count Last Ordered D ate First Ordered Date POCT GLUCOSE DEVICE 12 03/24/2021 03/20/20 Diet Count Last Ordered Date First Orde [...] 03/16/2021 documented in this encounter Care Teams Hot 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
--- OUTSIDE RECORDS SUMMARY | 2024-06-06 03:28 | XMS_ITS | Encounter Summary ---
Author Organization [facility] Healthcare Address [address] [place] [id number] Care Team Providers Care Brim Pouncer Name Role Phone Kim Rodrigues Felicia ALFARO Primary Care Provider [phone] Encounter Details Date Type Department Care Team (Latest Contact Info) Description 03/21/2021 4:16 AM CDT - 03/21/2021 11:59 PM CDT Hospital Encounter [facility] Diagnostic Imaging [address] [place] [address] Discharge Disposition: Discharge to home or self care Social History Tobacco Use Types Packs/Day Years Used Date Smoking Tobacco: Every Day Sex and Gender Information Value Date Recorded Sex Assigned at Not on file Legal Sex 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 ??Patient is now extubated. ??[place] catheter remains in place. ??Left thoracostomy tube remains in place. ??There is no failure or pneumothorax. ??COPD. Procedure Note Neftali Kaminski MD - 03/21/2021 EXAMINATION: XR CHEST 1 VIEW DATE: 03/21/2021 4:20 AM HISTORY: 55-year-old man follow-up cardiac surgery FINDINGS:Comparison is made with study the previous day. Patient is now extubated. [place] catheter remains in place. Left thoracostomy tube remains in place. There is no failure or pneumothorax. COPD. IMPRESSION: Extubation. No pneumothorax or failure. Electronically signed by: Neftali Kaminski M.D. Malathi Curry MD IMG XR PROCEDURES Final Result documented in this encounter Visit Diagnoses Not on filedocumented in this encounter Care Teams Brim Pouncer Relationship Specialty Start Date End Date Kim Rodrigues NP PCP - General Nurse Practitioner 03/21/21 03/21/21 documented as of this encounter
--- OUTSIDE RECORDS SUMMARY | 2024-06-06 03:29 | XMS_ITS | Encounter Summary ---
Author Organization [facility] Healthcare Address [address] [place] [address] Care Team Providers Care Guitar Maker Name Role Phone Unavailable Primary Care Provider Unavailabl e Encounter Details Date Type Department Care Team (Latest Contact Info) Description 08/25/2014 6:11 PM CDT - 08/25/2014 7:48 PM CDT Hospital Encounter [facility] ER Hemant Pierson MD [address] [facility] [place] [address] Pain in joint, shoulder region; Essential hypertension; Tobacco use disorder; Encounter for long-term (current) use of other medications; Encounter for long-term (current) use of steroids Social History Tobacco Use Types Packs/Day Years Used Date Smoking Tobacco: Never Assessed Sex and Gender Information Value Date Recorded Sex Assigned at Not on file 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 Gender Identity Not on file Sexual Orientation Not on file documented as of this encounter Last Filed Vital Signs Vital Sign Reading Time Taken Comments Blood Pressure 147/105 08/25/2014 6:17 PM CDT Pulse 75 08/25/2014 6:17 PM CDT Temperature 36.9 ??C (98.5 ??F) 08/25/2014 6:17 PM CD T Respiratory Rate - - Oxygen Saturation 99% 08/25/2014 6:17 PM CDT Inhaled Oxygen Concentration - - Weight 74.8 kg (165 lb) 08/25/2014 6:17 PM CDT Height 170.2 cm (5' 7 ) 08/25/2014 6:17 PM CDT Body Mass Index 25.84 08/25/2014 6:17 PM CDT documented in this encounter Plan of Treatment Not on file documented as of this encounter Procedures Procedure Name Priority Date/Time Associated Diagnosis Comments XR SHOULDER LEFT 2 OR MORE VIEWS Routine 08/25/2014 12:00 AM CDT documented in this encounter Results * XR Shoulder Left 2 or More Views (08/25/2014 12:00 AM CDT) Anatomical Region Laterality Modality Upper Extremities, Shoulder Left Radi ographic Imaging 08/25/2014 Impressions 08/25/2014 7:13 PM CDT ??No acute osseous abnormality of left shoulder. THIS IS AN ELECTRONICALLY VERIFIED REPORT 08/25/2014 7:09 PM: ??Barry Adrian M.D. Barry Adrian M.D. CH:charley 07:09 PM 07:09 PM [facility] [EOD] Narrative 08/25/2014 7:13 PM CDT EXAMINATION: ??Left shoulder series. ?? HISTORY: ??Repetitive motion with pain in the bags, shoulder pain. ??No injury. TECHNIQUE: ??AP internal, external, scapular Y views left shoulder. COMPARISON: ??None. FINDINGS: ??Left humeral head projects normally over the glenoid. ??No acute fracture or dislocation is seen. ??No aggressive osseous lesions. Procedure Note Provider, MD David - 10/10/2020 EXAMINATION: Left shoulder series. HISTORY: Repetitive motion with pain in the bags, shoulder pain. Noinjury. TECHNIQUE: AP internal, external, scapular Y views left shoulder. COMPARISON: None. FINDINGS: Left humeral head projects normally over the glenoid. No acute fracture or dislocation is seen. No aggressive osseous lesions. IMPRESSION: No acute osseous abnormality of left shoulder. THIS IS AN ELECTRONICALLY VERIFIED REPORT 08/25/2014 7:09 PM: Barry Adrian M.D. Barry Adrian M.D. CH:charley 07:09 PM 07:09 PM [facility] [EOD] Jennifer Mancia DYE TANK TENDER IMG XR PROCEDURES Final Resu lt documented in this encounter Visit Diagnoses Diagnosis Pain in joint, shoulder region Essential hypertension Unspecified essential hypertension Tobacco use disorder Encounter for long-term (current) use of other medications Encounter for long-term (current) use of steroids documented in this encounter
--- OUTSIDE RECORDS SUMMARY | 2024-06-06 03:29 | XMS_ITS | Encounter Summary ---
Author Organization [facility] Healthcare Address [address] [place] [address] Care Team Providers Care Him Analyst Name Role Phone Unavailable Primary Care Provider Unavailabl e Encounter Details Date Type Department Care Team (Latest Contact Info) Description 07/28/2016 9:20 AM COLLET MAKING MACHINE OPERATOR - 07/30/2016 12:15 PM COLLET MAKING MACHINE OPERATOR Hospital Encounter [facility] Hemant Lopez MD [address] [place] [id number] Crohn's disease with intestinal obstruction (CMS/HCC); Essential (primary) hypertension; Gastro-esophageal reflux disease without esophagitis; Nicotine dependence, uncomplicated; Allergy status to narcotic agent; Other custodial (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; prison current use of systemic steroids Social History Tobacco Use Types Packs/Day Years Used Date Smoking Tobacco: Never Assessed Sex and Gender Information Value Date Recorded Sex Assigned at Not on file Legal Sex Male 12:12 PM COLLET MAKING MACHINE OPERATOR Gender Identity Not on file Sexual Orientation Not on file documented as of this encounter Last Filed Vital Signs Vital Sign Reading Time Taken Comments Blood Pressure 181/90 07/29/2016 9:37 AM COLLET MAKING MACHINE OPERATOR Pulse 84 07/29/2016 9:37 AM COLLET MAKING MACHINE OPERATOR Temperature 36.4 ??C (97.5 ??F) 07/29/2016 9:37 AM CS T Respiratory Rate - - Oxygen Saturation 98% 07/29/2016 9:37 AM COLLET MAKING MACHINE OPERATOR Inhaled Oxygen Concentration - - Weight 68 kg (150 lb) 07/29/2016 9:37 AM COLLET MAKING MACHINE OPERATOR Height 167.6 cm (5' 6 ) 07/29/2016 9:37 AM COLLET MAKING MACHINE OPERATOR Body Mass Index 24.21 07/29/2016 9:37 AM COLLET MAKING MACHINE OPERATOR documented in this encounter Plan of Treatment Not on file documented as of this encounter Procedures Procedure Name Priority Date/Time Associated Diagnosis Comments CBC WITH AUTO DIFFERENTIAL Routine 07/29/2016 4:42 AM COLLET MAKING MACHINE OPERATOR PROTIME-INR Routine 07/29/2016 4:42 AM COLLET MAKING MACHINE OPERATOR BASIC METABOLIC PANEL Routine 07/29/2016 4:42 AM COLLET MAKING MACHINE OPERATOR XR ABDOMEN 2 VIEWS W CHEST 1 VIEW Routine 07/29/2016 12:00 AM COLLET MAKING MACHINE OPERATOR UA WITH CULTURE REFLEX Routine 7 8:05 AM COLLET MAKING MACHINE OPERATOR HEMOGRAM WITH MANUAL DIFFERENTIAL Routine 07/28/2016 5:50 AM COLLET MAKING MACHINE OPERATOR LIPASE Routine 07/28/2016 5:50 AM COLLET MAKING MACHINE OPERATOR COMPREHENSIVE METABOLIC PANEL Routine 07/28/2016 5:50 AM COLLET MAKING MACHINE OPERATOR CT ABDOMEN PELVIS W CONTRAST Routine 07/28/2016 12:00 AM COLLET MAKING MACHINE OPERATOR documented in this encounter Results * Protime-INR (07/29/2016 4:42 AM COLLET MAKING MACHINE OPERATOR) PT 13.3 11.8 - 14.5 SECONDS 07/29/2016 5:53 AM COLLET MAKING MACHINE OPERATOR [employer] HISTORICAL RESULTS INR 1.00 0.01 - 5.99 07/29/2016 5:53 AM COLLET MAKING MACHINE OPERATOR [employer] HISTORICAL RESULTS Comment: Recommended Therapeutic range for Oral Anticoagulant Therapy No anti-coagulation therapy ? Normal Range: ?0.8-1.4 Anti-coagulation therapy ? Low intensity therapy ?2.0-3.0 ? High intensity therapy ?? 2.5-3.5 Critical Value ? Greater than or equal to 6.0 Patients should be monitored for serious bleeding. ?? 07/29/2016 4:42 AM COLLET MAKING MACHINE OPERATOR 07/29/2016 5:43 AM COLLET MAKING MACHINE OPERATOR Hemant Lopez MD LAB BLOOD ORDERABLES Final Result [employer] HISTORICAL RESULTS * (ABNORMAL) CBC with auto differential (07/29/2016 4:42 AM COLLET MAKING MACHINE OPERATOR) WBC 7.4 4.6 - 10.2 x10 3/ul 07/29/2016 5:47 AM COLLET MAKING MACHINE OPERATOR [employer] HISTORICAL RESULTS RBC 3.91(L) 4.11 - 5.71 x10 6/ul 07/29/2016 5:47 AM COLLET MAKING MACHINE OPERATOR [employer] HISTORICAL RESULTS Hemoglobin 12.5(L) 13.0 - 17.0 g/dl 07/29/2016 5:47 AM [employer] HISTORICAL RESULTS Hct 35.3(L) 38.2 - 48.5 % 07/29/2016 5:47 AM [employer] HISTORICAL RESULTS MCV 90.3 80.0 - 97.0 fl 07/29/2016 5:47 AM [employer] HISTORICAL RESULTS MCH 32.0(H) 27.0 - 31.2 pg 07/29/2016 5:47 AM [employer] HISTORICAL RESULTS MCHC 35.4 31.8 - 35.4 g/dl 07/29/2016 5:47 AM [employer] HISTORICAL RESULTS RDW 13.9 11.6 - 14.8 % 07/29/2016 5:47 AM [employer] HISTORICAL RESULTS Plt Count 244 124 - 400 x10 3/ul 07/29/2016 5:47 AM [employer] HISTORICAL RESULTS MPV 8.2 7.4 - 10.4 fl 07/29/2016 5:47 AM [employer] HISTORICAL RESULTS Neut % 85.3(H) 37.0 - 85.0 % 07/29/2016 5:47 AM [employer] HISTORICAL RESULTS Immature Gran % 0.4 0.0 - 3.0 % 07/29/2016 5:47 AM [employer] HISTORICAL RESULTS Lymph % 12.3 5.0 - 45.0 % Sabine % 2.0(L) 3.0 - 15.0 % Eos % 0.0 0.0 - 7.0 % Baso % 0.0 0.0 - 2.0 % 07/29/2016 5:47 AM COLLET MAKING MACHINE OPERATOR [facility] HISTORICAL RESULTS Absolute Neuts (auto) 6.3 1.7 - 8.7 x10 3/ul Immature Gran # 0.0 0.0 - 0.3 x10 3/ul Absolute Lymphs (auto) 0.9 0.2 - 4.6 x10 3/ul Absolute Monos (auto) 0.2 0.1 - 1.5 x10 3/ul Absolute Eos (auto) 0.0 0.0 - 0.7 x10 3/ul Absolute Basos (auto) 0.0 0.0 - 0.2 x10 3/ul 07/29/2016 4:42 AM COLLET MAKING MACHINE OPERATOR 07/29/2016 5:43 AM [facility] Hemant Lopez MD LAB BLOOD ORDERABLES Final Result [facility] HISTORICAL RESULTS * (ABNORMAL) Basic metabolic panel (07/29/2016 4:42 AM COLLET MAKING MACHINE OPERATOR) [facility] Sodium 138 135 - 145 mmol/L Potassium 3.9 3.3 - 5.1 mmol/L Chloride 100 96 - 108 mmol/L Carbon Dioxide 26 22 - 32 mmol/L 07/29/2016 6:11 AM [employer] HISTORICAL RESULTS Anion Gap 12 7 - 16 07/29/2016 6:11 AM [employer] HISTORICAL RESULTS Glucose 118(H) 70 - 100 mg/dL 07/29/2016 6:11 AM [employer] HISTORICAL RESULTS BUN 13 6 - 20 mg/dL 07/29/2016 6:11 AM [employer] [employer] HISTORICAL RESULTS Creatinine 0.9 0.5 - 1.3 mg/dL 07/29/2016 6:11 AM [employer] HISTORICAL RESULTS Comment: NOTE: Estimated GFR (Cockroft-Gault) will NOT be calculated unless patient Height and Weight were entered. Also, Kidney Disease Stage (GFR) and Estimated GFR (Cockroft-Gault) will NOT be calculated if Creatinine result is <0.2. Kidney Disease Stage > 90 mL/MIN 07/29/2016 6:11 AM [employer] HISTORICAL RESULTS Comment: NOTE; ??The GFR is [...] or on dialysis @ Est GFR (Cockcroft-G) 91 ml/MIN 07/29/2016 6:11 AM [employer] HISTORICAL RESULTS Comment: Estimated GFR(Cockroft-Gault)is used to calculate patient medication dosage Calcium 8.3(L) 8.6 - 10.0 mg/dL 07/29/2016 6:11 AM COLLET MAKING MACHINE OPERATOR [facility] HISTORICAL RESULTS 07/29/2016 4:42 AM COLLET MAKING MACHINE OPERATOR 07/29/2016 5:43 AM COLLET MAKING MACHINE OPERATOR us Hemant Lopez MD LAB BLOOD ORDERABLES Final Result [facility] HISTORICAL RESULTS * XR Abdomen 2 Views W Chest 1 View (07/29/2016 12:00 AM COLLET MAKING MACHINE OPERATOR) Anatomical Region Laterality Modality Body, Abdomen N/A Radiographic Annita ging 07/29/2016 Narrative 07/29/2016 9:49 AM COLLET MAKING MACHINE OPERATOR Obstructive series. History: ??Bowel obstruction and Crohn disease with abdominal pain. Symptoms for [address] performed on 07/28/16 Technique: ??3 views were obtained Findings: The lungs are clear. ??There is a calcified granuloma right lower lobe. ??There is persistent small bowel distention and dilatation identified. ??This is consistent with a least a partial obstruction. Amount of air in the colon is slightly decreased. Impression Persistent small bowel distention. ??No significant improvement. THIS IS AN ELECTRONICALLY VERIFIED REPORT 07/29/2016 9:45 AM: ??Danny Davis M.D. ?? Danny Davis M.D. NC:karlos 09:45 AM 09:[address] [facility] [EOD] Procedure Note Provider, David, - 10/10/2020 Obstructive series. History: Bowel obstruction and Crohn disease with abdominal pain. Symptoms for [address] performed on 07/28/16 Technique: 3 views were obtained Findings: The lungs are clear. There is a calcified granuloma right lower lobe.There is persistent small bowel distention and dilatation identified. This is consistent with a least a partial obstruction. Amount of air in the colon is slightly decreased. Impression Persistent small bowel distention. No significant improvement. THIS IS AN ELECTRONICALLY VERIFIED REPORT 07/29/2016 9:45 AM: Danny Davis M.D. Danny Davis M.D. NC:nc 09:45 AM 09:45 AM [facility] [EOD] us Hemant Lopez MD IMG XR PROCEDURES Final Res ult * (ABNORMAL) UA with Culture Reflex (07/28/2016 8:05 AM COLLET MAKING MACHINE OPERATOR) Ur Collection Type CLEAN CATCH 07/28/2016 8:25 AM [employer] HISTORICAL RESULTS Ur Culture Indicated? C&S NOT INDICATED 07/28/2016 8:25 AM COLLET MAKING MACHINE OPERATOR [employer] HISTORICAL RESULTS Urine Color STRAW YELLOW 07/28/2016 8:25 AM [employer] HISTORICAL RESULTS Urine Clarity CLEAR CLEAR 07/28/2016 8:25 AM [employer] HISTORICAL RESULTS Urine Glucose (UA) NORMAL NORMAL mg/dL 07/28/2016 8:25 AM [employer] HISTORICAL RESULTS Urine Bilirubin NEGATIVE NEGATIVE mg/dl 07/28/2016 8:25 AM [employer] HISTORICAL RESULTS Urine Ketones NEGATIVE NEGATIVE mg/dL 07/28/2016 8:25 AM [employer] HISTORICAL RESULTS Ur Specific [place] 1.038(H) 1.005 - 1.025 07/28/2016 8:25 AM [employer] HISTORICAL RESULTS Urine Blood 0.03(H) NEGATIVE mg/dl 07/28/2016 8:25 AM [employer] HISTORICAL RESULTS Urine pH 6.0 5.0 - 8.0 07/28/2016 8:25 AM [employer] HISTORICAL RESULTS Urine Protein NEGATIVE NEGATIVE mg/dL 07/28/2016 8:25 AM [employer] HISTORICAL RESULTS Urine Urobilinogen NORMAL NORMAL mg/dL 07/28/2016 8:25 AM [employer] HISTORICAL RESULTS Urine Nitrite NEGATIVE NEGATIVE 07/28/2016 8:25 AM [employer] HISTORICAL RESULTS Ur Leukocyte Esterase NEGATIVE NEGATIVE Natalio/ul 07/28/2016 8:25 AM COLLET MAKING MACHINE OPERATOR [facility] [employer] HISTORICAL RESULTS Ur Microscopic Review Not Indicated 07/28/2016 8:25 AM COLLET MAKING MACHINE OPERATOR [facility] HISTORICAL RESULTS 07/28/2016 8:05 AM COLLET MAKING MACHINE OPERATOR 07/28/2016 8:18 AM COLLET MAKING MACHINE OPERATOR us Monica Maier ROTARY FURNACE TENDER LAB URINE ORDERABLES Gisselle l Result [facility] HISTORICAL RESULTS * (ABNORMAL) Hemogram with manual differential (07/28/2016 5:50 AM COLLET MAKING MACHINE OPERATOR) WBC 8.0 4.6 - 10.2 x10 3/ul 07/28/2016 7:00 AM [facility] [employer] [facility] HISTORICAL RESULTS RBC 4.18 4.11 - 5.71 x10 6/ul Hemoglobin 13.7 13.0 - 17.0 g/dl 07/28/2016 7:00 AM [facility] HISTORICAL RESULTS Hct 39.4 38.2 - 48.5 % MCV 94.3 80.0 - 97.0 fl MCH 32.8(H) 27.0 - 31.2 pg MCHC 34.8 31.8 - 35.4 g/dl 07/28/2016 7:00 AM [facility] HISTORICAL RESULTS RDW 14.6 11.6 - 14.8 % Plt Count 265 124 - 400 x10 3/ul MPV 7.9 7.4 - 10.4 fl MANUAL DIFF MANUAL DIFF --------- -- 07/28/2016 7:45 AM [facility] [employer] [facility] HISTORICAL RESULTS Neutrophils % (Manual) 47 37 - 80 % Lymphocytes % (Manual) 41 10 - 51 % 07/28/2016 7:45 AM COLLET MAKING MACHINE OPERATOR [facility] HISTORICAL RESULTS Atypical Lymphs % 7(H) 0 - 6 % Monocytes % (Manual) 5 0 - 12 % ABSOLUTE COUNTS ABSOLUTE COUNTS --------- -- 07/28/2016 7:45 AM COLLET MAKING MACHINE OPERATOR [facility] HISTORICAL RESULTS Abs Neuts cells/mm3 3760 /ul 07/28/2016 7:45 AM COLLET MAKING MACHINE OPERATOR [facility] HISTORICAL RESULTS Absolute Neutrophils 3.8 1.7 - 8.7 x10 3/ul 07/28/2016 7:45 AM COLLET MAKING MACHINE OPERATOR [facility] HISTORICAL RESULTS Absolute Lymphocytes 3.3 0.2 - 4.6 x10 3/ul ATYPICAL LYMPH ABS# 0.6(H) 0 - 0.3 x10 3/ul Absolute Monocytes 0.4 0.1 - 1.5 x10 3/ul Platelet Evaluation AGREE AGREE Comment:Slide review of plat elets correlates with instrument count. Anisocytosis 1+ Macrocytosis 1+ 07/28/2016 5:50 AM COLLET MAKING MACHINE OPERATOR 07/28/2016 6:20 AM COLLET MAKING MACHINE OPERATOR Narrative [facility] HISTORICAL RESULTS - 07/28/2016 7:45 AM COLLET MAKING MACHINE OPERATOR us Monica Maier ROTARY FURNACE TENDER LAB BLOOD ORDERABLES Gisselle l Result [facility] HISTORICAL RESULTS * Lipase (07/28/2016 5:50 AM COLLET MAKING MACHINE OPERATOR) Lipase 35 13 - 60 U/L 07/28/2016 5:50 AM COLLET MAKING MACHINE OPERATOR 07/28/2016 6:20 AM COLLET MAKING MACHINE OPERATOR us Monica Maier NP LAB BLOOD ORDERABLES Gisselle samuels Result [facility] HISTORICAL RESULTS * (ABNORMAL) Comprehensive metabolic panel (07/28/2016 5:50 AM COLLET MAKING MACHINE OPERATOR) Sodium 143 135 - 145 mmol/L Potassium 3.6 3.3 - 5.1 mmol/L Chloride 104 96 - 108 mmol/L Carbon Dioxide 28 22 - 32 mmol/L Anion Gap 11 7 - 16 Glucose 105(H) 70 - 100 mg/dL BUN 10 6 - 20 mg/dL Creatinine 1.1 0.5 - 1.3 mg/dL Comment: NOTE: Estimated GFR (Cockroft-Gault) will NOT be calculated unless patient Height and Weight were entered. Also, Kidney Disease Stage (GFR) and Estimated GFR (Cockroft-Gault) will NOT be calculated if Creatinine result is <0.2. Kidney Disease Stage > 90 mL/MIN Comment: NOTE; ??The GFR is an [...] or on dialysis @ Est GFR (Cockcroft-G) 74 ml/MIN 07/28/2016 6:36 AM [employer] HISTORICAL RESULTS Comment: Estimated GFR(Cockroft-Gault)is used to calculate patient medication dosage Calcium 8.7 8.6 - 10.0 mg/dL 07/28/2016 6:36 AM [employer] HISTORICAL RESULTS Total Protein 6.5 6.4 - 8.3 g/dL 07/28/2016 6:36 AM [facility] HISTORICAL RESULTS Albumin 3.8 3.5 - 5.2 g/dL 07/28/2016 6:36 AM [employer] HISTORICAL RESULTS Globulin 2.7 2.3 - 3.5 gm/dL 07/28/2016 6:36 AM [employer] HISTORICAL RESULTS Albumin/Globulin Ratio 1.4 1.1 - 1.8 07/28/2016 6:36 AM [employer] HISTORICAL RESULTS Total Bilirubin 0.3 0.0 - 1.2 mg/dL 07/28/2016 6:36 AM [employer] HISTORICAL RESULTS AST 23 0 - 40 U/L 07/28/2016 6:36 AM [employer] HISTORICAL RESULTS ALT 36 0 - 41 U/L 07/28/2016 6:36 AM [employer] HISTORICAL RESULTS Alkaline Phosphatase 72 40 - 129 U/L 07/28/2016 6:36 AM [employer] HISTORICAL RESULTS 07/28/2016 5:50 AM COLLET MAKING MACHINE OPERATOR 07/28/2016 6:20 AM COLLET MAKING MACHINE OPERATOR Monica Maier NP LAB BLOOD ORDERABLES Gisselle samuels Result [facility] HISTORICAL RESULTS * CT Abdomen Pelvis W Contrast (07/28/2016 12:00 AM COLLET MAKING MACHINE OPERATOR) Anatomical Region Laterality Modality Body N/A Computed Tomogra phy 07/28/2016 Impressions 07/28/2016 8:14 AM COLLET MAKING MACHINE OPERATOR Distal small bowel dilation proximal to the markedly inflamed terminal ileum and inflammatory changes of the distal small bowel. ??Active Crohn's disease with partial small bowel obstruction approximately 5 to 6 cm from the ileocolonic anastomosis. Findings discussed with Monica the patient's care provider at 0800 hours. Automated exposure control was used as a dose optimization technique for this examination. THIS IS AN ELECTRONICALLY VERIFIED REPORT 07/28/2016 8:10 AM: ??Ugo Duncan M.D. ?? Ugo Duncan M.D. ALTHEA:althea 08:10 AM 08:[address] [facility] [EOD] Narrative 07/28/2016 8:14 AM COLLET MAKING MACHINE OPERATOR EXAMINATION: ??IV contrast CT of the abdomen and pelvis. HISTORY:Abdominal pain ??Crohn disease. ??Vomiting for 2 hours. ??Started this morning. ??History of gastroesophageal reflux disease and IBS. ??History of renal stones and hypertension. TECHNIQUE: ??Post IV contrast CT of the abdomen and pelvis was performed. ??100 mL of Omnipaque 350 was administered IV left hand site. Oral Contrast was not given COMPARISON:CT the abdomen from 07/14/2016. FINDINGS: There has been interval development of a 4-5 mm nodular density in the left lower lobe axial image 23. The liver, adrenals, kidneys, spleen, pancreas, and gallbladder are unremarkable. New there are scattered colonic diverticula. ??There is suture line at the proximal transverse colon where there appears to have been partial colonic resection and partial small bowel resection with reanastomosis. ??There is abrupt focal dilation of the distal small bowel approximately 5-6 cm from the ileocolonic anastomosis. ??The ileum is thickened with surrounding hyperemia and there is evidence of stasis of small bowel contents at the dilated distal loop of ileum with proximal dilation of the bowel that tapers gradually. ??The maximum size of the small bowel is 5.7 cm. ??There is hyperemia of the ileum. There is no pneumatosis. No free abdominal air. No portal venous gas. There is minimal interloop fluid. ??The duodenum and proximal jejunum are normal in diameter No retroperitoneal or abdominal lymphadenopathy. ??No free abdominal air. ??No focal walled off abdominal fluid collection. No suspicious osseous lesions. Procedure Note Provider, MD David - 10/10/2020 EXAMINATION: IV contrast CT of the abdomen and pelvis. HISTORY:Abdominal pain Crohn disease. Vomiting for 2 hours. Startedthis morning. History of gastroesophageal reflux disease and IBS. History of renal stones and hypertension. TECHNIQUE: Post IV contrast CT of the abdomen and pelvis was performed.100 mL of Omnipaque 350 was administered IV left hand site. Oral Contrast wasnot given COMPARISON:CT the abdomen from 07/14/2016. FINDINGS: There has been interval development of a 4-5 mm nodular density in theleft lower lobe axial image 23. The liver, adrenals, kidneys, spleen, pancreas, and gallbladder are unremarkable. New there are scattered colonic diverticula. There is suture line at the proximal transverse colon where there appears to have been partial colonic resection and partial small bowel resection with reanastomosis. There is abrupt focal dilation of the distal small bowel approximately 5-6 cm fromthe ileocolonic anastomosis. The ileum is thickened with surroundinghyperemia and there is evidence of stasis of small bowel contents at the dilateddistal loop of ileum with proximal dilation of the bowel that tapers gradually.The maximum size of the small bowel is 5.7 cm. There is hyperemia of theileum. There is no pneumatosis. No free abdominal air. No portal venous gas. There is minimal interloop fluid. The duodenum and proximal jejunum are normal in diameter No retroperitoneal or abdominal lymphadenopathy. No free abdominal air.No focal walled off abdominal fluid collection. No suspicious osseouslesions. IMPRESSION: Distal small bowel dilation proximal to the markedly inflamed terminalileum and inflammatory changes of the distal small bowel. Active Crohn'sdisease with partial small bowel obstruction approximately 5 to 6 cm from the ileocolonic anastomosis. Findings discussed with Monica the patient's care provider at 0800 hours. Automated exposure control was used as a dose optimization technique forthis examination. THIS IS AN ELECTRONICALLY VERIFIED REPORT 07/28/2016 8:10 AM: Ugo Duncan M.D. Ugo Duncan M.D. 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
--- OUTSIDE RECORDS SUMMARY | 2024-06-06 03:29 | XMS_ITS | Encounter Summary ---
Author Organization [facility] Healthcare Address [address] [place] [address] Care Team Providers Care Doula Name Role Phone Unavailable Primary Care Provider Unavailabl e Encounter Details Date Type Department Care Team (Latest Contact Info) Description 01/11/2016 1:31 PM CDT - 01/11/2016 5:20 PM CDT Hospital Encounter [facility] Perla Rodriguez MD [address] [place] [address] Crohn's disease of small intestine without complication (CMS/HCC); Essential (primary) hypertension; Cigarette nicotine dependence, uncomplicated; Other terminal gauger (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 Social History Tobacco Use Types Packs/Day Years Used Date Smoking Tobacco: Never Assessed Sex and Gender Information Value Date Recorded Sex Assigned at Not on file 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 Gender Identity Not on file Sexual Orientation Not on file documented as of this encounter Last Filed Vital Signs Vital Sign Reading Time Taken Comments Blood Pressure 133/86 01/11/2016 1:38 PM CDT Pulse 69 01/11/2016 1:38 PM CDT Temperature 36.7 ??C (98 ??F) 01/11/2016 1:38 PM CDT Respiratory Rate - - Oxygen Saturation 100% 01/11/2016 1:38 PM CDT Inhaled Oxygen Concentration - - Weight 66.2 kg (146 lb) 01/11/2016 1:38 PM CDT Height 167.6 cm (5' 6 ) 01/11/2016 1:38 PM CDT Body Mass Index 23.57 01/11/2016 1:38 PM CDT documented in this encounter Plan of Treatment Not on file documented as of this encounter Procedures Procedure Name Priority Date/Time Associated Diagnosis Comments CBC WITH AUTO DIFFERENTIAL Routine 01/11/2016 2:12 PM CDT LIPASE Routine 01/11/2016 2:12 PM CDT COMPREHENSIVE METABOLIC PANEL Routine 01/11/2016 2:12 PM CDT UA WITH CULTURE REFLEX Routine 6 2:[address] ABDOMEN PELVIS W CONTRAST Routine 01/11/2016 1:45 PM CDT documented in this encounter Results * Lipase (01/11/2016 2:12 PM CDT) Lipase 39 13 - 60 U/L 01/11/2016 2:12 PM CDT 01/11/2016 2:15 PM CDT Lora DELANEY LAB BLOOD ORDERABLES Gisselle l Result [facility] HISTORICAL RESULTS * Comprehensive metabolic panel (01/11/2016 2:12 PM CDT) Sodium 138 135 - 145 mmol/L Potassium 3.4 3.3 - 5.1 mmol/L Chloride 101 96 - 108 mmol/L Carbon Dioxide 23 22 - 32 mmol/L Anion Gap 14 7 - 16 Glucose 95 70 - 100 mg/dL BUN 11 6 - 20 mg/dL Creatinine 0.9 0.5 - 1.3 mg/dL Comment: NOTE: [...] age, and race of the patient. THE ESTIMATED GFR IS VALIDATED FOR AGES 18-70 YEARS STAGE ?mL/Min ?DESCRIPTION ??1 ?90 mL/min or more ?Normal or elevated GFR ??2 ? 60-89 mL/min ?Mildly decreased GFR ??3 ? 30-59 mL/min ?Moderately decreased GFR ??4 ? 15-29 mL/min ?Severely decreased GFR ??5 ? <15 mL/min ? Kidney failure or on dialysis @ Est GFR (Cockcroft-G) 90 ml/MIN Calcium 9.2 8.6 - 10.0 mg/dL Total Protein 7.0 6.4 - 8.3 g/dL Albumin 4.0 3.5 - 5.2 g/dL Globulin 3.0 2.3 - 3.5 gm/dL Albumin/Globulin Ratio 1.3 1.1 - 1.8 Total Bilirubin 0.3 0.0 - 1.2 mg/dL AST 15 0 - 40 U/L ALT 11 0 - 41 U/L Alkaline Phosphatase 76 40 - 129 U/L 01/11/2016 2:12 PM CDT 01/11/2016 2:15 PM CDT Lora DELANEY LAB BLOOD ORDERABLES Gisselle samuels Result [facility] HISTORICAL RESULTS * (ABNORMAL) CBC with auto differential (01/11/2016 2:12 PM CDT) WBC 6.3 4.6 - 10.2 x10 3/ul RBC 4.10(L) 4.11 - 5.71 x10 6/ul Hemoglobin 13.3 13.0 - 17.0 g/dl Hct 38.8 38.2 - 48.5 % MCV 94.6 80.0 - 97.0 fl MCH 32.4(H) 27.0 - 31.2 pg MCHC 34.3 31.8 - 35.4 g/dl RDW 13.8 11.6 - 14.8 % Plt Count 260 124 - 400 x10 3/ul MPV 7.5 7.4 - 10.4 fl Neut % 67.7 37.0 - 85.0 % Immature Gran % 0.3 0.0 - 3.0 % Lymph % 24.6 5.0 - 45.0 % [place] % 6.9 3.0 - 15.0 % Eos % 0.3 0.0 - 7.0 % Baso % 0.2 0.0 - 2.0 % Absolute Neuts (auto) 4.3 1.7 - 8.7 x10 3/ul Immature Gran # 0.0 0.0 - 0.3 x10 3/ul Absolute Lymphs (auto) 1.6 0.2 - 4.6 x10 3/ul Absolute Monos (auto) 0.4 0.1 - 1.5 x10 3/ul Absolute Eos (auto) 0.0 0.0 - 0.7 x10 3/ul Absolute Basos (auto) 0.0 0.0 - 0.2 x10 3/ul 01/11/2016 2:12 PM CDT 01/11/2016 2:15 PM CDT us Lora DELANEY LAB BLOOD ORDERABLES Gisselle samuels Result [facility] HISTORICAL RESULTS * UA with Culture Reflex (01/11/2016 2:03 PM CDT) Ur Collection Type CLEAN CATCH Ur Culture Indicated? C&S NOT INDICATED Urine Color YELLOW YELLOW Urine Clarity CLEAR CLEAR Urine Glucose (UA) NORMAL NORMAL mg/dL Urine Bilirubin NEGATIVE NEGATIVE mg/dl Urine Ketones NEGATIVE NEGATIVE mg/dL Ur Specific [place] 1.023 1.005 - 1.025 Urine Blood NEGATIVE NEGATIVE mg/dl Urine pH 5.0 5.0 - 8.0 Urine Protein NEGATIVE NEGATIVE mg/dL Urine Urobilinogen NORMAL NORMAL mg/dL Urine Nitrite NEGATIVE NEGATIVE Ur Leukocyte Esterase NEGATIVE NEGATIVE Natalio/ul Ur Microscopic Review Not Indicated 01/11/2016 2:03 PM CDT 01/11/2016 2:43 PM CDT us Lora DELANEY LAB URINE ORDERABLES Gisselle samuels Result [facility] HISTORICAL RESULTS * CT Abdomen Pelvis W Contrast (01/11/2016 1:45 PM CDT) Anatomical Region Laterality Modality Body N/A Computed Tomogra phy 01/11/2016 1:45 PM CDT Narrative 01/11/2016 3:28 PM CDT PROCEDURE: ??CT ABDOMEN AND PELVIS WITH CONTRAST. HISTORY: Lower abdominal pain and nausea and vomiting since today. ??History of Crohn disease. ?? TECHNIQUE: ??Contrast enhanced helical CT of the abdomen and pelvis was performed. 100 ml of ??Omnipaque-350 was administered uneventfully via the the right forearm vein. ?? COMPARISON: CT abdomen pelvis dated November 27, 2015 ?? CT ABDOMEN FINDINGS: Lung Bases: ??The lung bases are clear. Liver/Gallbladder/Bile Ducts: ??No focal liver lesions are identified. ??There are no radiopaque gallstones. ??There is no bile duct dilatation. Spleen/Pancreas/Kidneys/Adrenal Glands: ??The spleen, pancreas, kidneys, and adrenal glands are normal. Vasculature: Scattered vascular calcifications are noted Lymph Nodes/Peritoneum/Mesentery/Omentum: ??There is no upper abdominal free fluid, free air, or lymph node enlargement. Stomach and Bowel: ??Postsurgical changes suggestive of distal ileal resection with end-to-end anastomosis ??There is marked mucosal thickening and hyperenhancement of the salome terminal ileum similar to the prior examination extending over a length of approximately 6 cm. ??The distal terminal ileum immediately upstream to this is fluid-filled and dilated measuring a maximum of 4.5 cm Body Wall: ??No significant osseous or soft tissue abnormalities are identified. Support Devices: ??None. CT PELVIS FINDINGS: Bladder: ??No focal abnormalities are identified. Prostate Gland/Seminal Vesicles: ??No focal abnormalities are identified. Vasculature: Scattered vascular calcifications are present Lymph Nodes/Peritoneum/Mesentery/Omentum: ??There is no pelvic free fluid, free air, or lymph node enlargement. Bowel: See above ?? Body Wall: ??No significant osseous or soft tissue abnormalities are identified. Postsurgical changes of the right femur is noted. Support Devices: ??None. COMBINED CONCLUSIONS: ?? Postsurgical changes of distal ileostomy with end-to-end anastomosis. ??The salome terminal ileum appears markedly thickened with mucosal hyperenhancement extending over a length of 6 cm likely representing underlying active Crohn disease. ??The distal ileum immediately proximal to this appears fluid-filled and dilated measuring a maximum of 4.5 cm. ??The overall appearance is similar to the prior examination. THIS IS AN ELECTRONICALLY VERIFIED REPORT 01/11/2016 3:25 PM: ??Coy Alcala M.D. ?? Coy Alcala M.D. JA:flory 03:25 PM 03:25 PM [facility] [EOD] Procedure Note Provider, MD David - 10/10/2020 PROCEDURE: CT ABDOMEN AND PELVIS WITH CONTRAST. HISTORY: Lower abdominal pain and nausea and vomiting since today.History of Crohn disease. TECHNIQUE: Contrast enhanced helical CT of the abdomen and pelvis was performed. 100 ml of Omnipaque-350 was administered uneventfully via thethe right forearm vein. COMPARISON: CT abdomen pelvis dated November 27, 2015 CT ABDOMEN FINDINGS: Lung Bases: The lung bases are clear. Liver/Gallbladder/Bile Ducts: No focal liver lesions are identified.There are no radiopaque gallstones. There is no bile duct dilatation. Spleen/Pancreas/Kidneys/Adrenal Glands: The spleen, pancreas, kidneys,and adrenal glands are normal. Vasculature: Scattered vascular calcifications are noted Lymph Nodes/Peritoneum/Mesentery/Omentum: There is no upper abdominalfree fluid, free air, or lymph node enlargement. Stomach and Bowel: Postsurgical changes suggestive of distal ilealresection with end-to-end anastomosis There is marked mucosal thickening and hyperenhancement of the salome terminal ileum similar to the priorexamination extending over a length of approximately 6 cm. The distal terminal ileum immediately upstream to this is fluid-filled and dilated measuring amaximum of 4.5 cm Body Wall: No significant osseous or soft tissue abnormalities are identified. Support Devices: None. CT PELVIS FINDINGS: Bladder: No focal abnormalities are identified. Prostate Gland/Seminal Vesicles: No focal abnormalities are identified. Vasculature: Scattered vascular calcifications are present Lymph Nodes/Peritoneum/Mesentery/Omentum: There is no pelvic free fluid,free air, or lymph node enlargement. Bowel: See above Body Wall: No significant osseous or soft tissue abnormalities are identified. Postsurgical changes of the right femur is noted. Support Devices: None. COMBINED CONCLUSIONS: Postsurgical changes of distal ileostomy with end-to-end anastomosis. Theneo terminal ileum appears markedly thickened with mucosal hyperenhancement extending over a length of 6 cm likely representing underlying activeCrohn disease. The distal ileum immediately proximal to this appearsfluid-filled and dilated measuring a maximum of 4.5 cm. The overall appearance issimilar to the prior examination. THIS IS AN ELECTRONICALLY VERIFIED REPORT 01/11/2016 3:25 PM: Coy Alcala M.D. Coy Alcala M.D. JA:flory 03:25 PM 03:25 PM [facility] [EOD] Lora DELANEY IMG CT PROCEDURES Final R esult documented in this encounter Visit Diagnoses Diagnosis Crohn's disease of small intestine without complication (CMS/HCC) (HCC) Essential (primary) hypertension Unspecified essential hypertension Cigarette nicotine dependence, uncomplicated Other terminal gauger (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 documented in this encounter
--- OUTSIDE RECORDS SUMMARY | 2024-06-06 03:29 | XMS_ITS | Encounter Summary ---
Author Organization [facility] Healthcare Address [address] [place] [address] Care Team Providers Care Siding Coreboard Inspector Name Role Phone Unavailable Primary Care Provider Unavailabl e Encounter Details Date Type Department Care Team (Latest Contact Info) Description 06/15/2017 6:30 AM [facility] - 06/20/2017 11:48 AM [facility] Hospital Encounter [facility] Hemant Lopez MD [address] [place] [id number] Crohn's disease of small intestine with intestinal obstruction (CMS/HCC); Essential (primary) hypertension; Hypertensive urgency; Gastro-esophageal reflux disease without esophagitis; Nicotine dependence, uncomplicated; Allergy status to narcotic agent; Other salvage determiner (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; longterm current use of systemic steroids Social History Tobacco Use Types Packs/Day Years Used Date Smoking Tobacco: Never Assessed Sex and Gender Information Value Date Recorded Sex Assigned at Not on file Legal Sex Male 12:12 PM [facility] Gender Identity Not on file Sexual Orientation Not on file documented as of this encounter Last Filed Vital Signs Vital Sign Reading Time Taken Comments Blood Pressure 101/69 06/15/2017 3:29 PM [facility] Pulse 99 06/15/2017 3:29 PM [facility] Temperature 36.9 ??C (98.5 ??F) 06/15/2017 3:29 PM CS T Respiratory Rate - - Oxygen Saturation 95% 06/15/2017 3:29 PM [facility] Inhaled Oxygen Concentration - - Weight 68.6 kg (151 lb 3.2 oz) 06/15/2017 3:29 P M [facility] Height 170.2 cm (5' 7 ) 06/15/2017 3:29 PM [facility] Body Mass Index 23.68 06/15/2017 3:29 PM [facility] documented in this encounter Plan of Treatment Not on file documented as of this encounter Procedures Procedure Name Priority Date/Time Associated Diagnosis Comments SCAN - PATHOLOGY 06/17/2017 12:0 0 AM [facility] CBC WITH AUTO DIFFERENTIAL Routine 06/16/2017 5:34 AM [facility] BASIC METABOLIC PANEL Routine 06/16/2017 5:34 AM [facility] CBC WITH AUTO DIFFERENTIAL Routine 06/15/2017 1:59 AM [facility] LIPASE Routine 06/15/2017 1:59 AM [facility] AMYLASE Routine 06/15/2017 1:59 AM [facility] COMPREHENSIVE METABOLIC PANEL Routine 06/15/2017 1:[address] ABDOMEN PELVIS W CONTRAST Routine 06/15/2017 12:00 AM [facility] documented in this encounter Results * SCAN - PATHOLOGY (06/17/2017 12:00 AM [facility]) Narrative 06/17/2017 12:00 AM [facility] Ordered by an unspecified provider. us Historical Provider MD Final Res ult * (ABNORMAL) CBC with auto differential (06/16/2017 5:34 AM [facility]) WBC 6.9 3.5 - 10.5 x10 3/ul 06/16/2017 6:23 AM [facility] [employer] HISTORICAL RESULTS Comment: Results reviewed ?? New Reference Range in use 06/12/17. RBC 3.45(L) 4.11 - 5.71 x10 6/ul 06/16/2017 6:22 AM [facility] [employer] HISTORICAL RESULTS Hemoglobin 11.0(L) 13.0 - 17.0 g/dl 06/16/2017 6:22 AM [facility] [employer] HISTORICAL RESULTS Hct 33.0(L) 38.2 - 48.5 % 06/16/2017 6:22 AM [facility] [employer] HISTORICAL RESULTS MCV 95.7 80.0 - 97.0 fl 06/16/2017 6:22 AM [facility] [employer] HISTORICAL RESULTS MCH 31.9(H) 27.0 - 31.2 pg 06/16/2017 6:22 AM [facility] [employer] HISTORICAL RESULTS MCHC 33.3 31.8 - 35.4 g/dl 06/16/2017 6:22 AM [facility] [employer] HISTORICAL RESULTS RDW 15.2(H) 11.6 - 14.8 % 06/16/2017 6:22 AM [employer] HISTORICAL RESULTS Plt Count 247 150 - 450 x10 3/ul 06/16/2017 6:22 AM [facility] [employer] HISTORICAL RESULTS Comment:New Reference Range in use 06/12/17. MPV 8.1 7.4 - 10.4 fl 06/16/2017 6:22 AM [employer] HISTORICAL RESULTS Neut % 63.7 37.0 - 85.0 % 06/16/2017 6:22 AM [employer] HISTORICAL RESULTS Immature Gran % 0.3 0.0 - 3.0 % 06/16/2017 6:22 AM [facility] [employer] HISTORICAL RESULTS Lymph % 27.7 5.0 - 45.0 % 06/16/2017 6:22 AM [employer] HISTORICAL RESULTS [place] % 8.1 3.0 - 15.0 % 06/16/2017 6:22 AM [employer] [facility] [employer] HISTORICAL RESULTS Eos % 0.1 0.0 - 7.0 % 06/16/2017 6:22 AM [facility] [employer] HISTORICAL RESULTS Baso % 0.1 0.0 - 2.0 % 06/16/2017 6:22 AM [facility] [employer] HISTORICAL RESULTS Absolute Neuts (auto) 4.4 1.7 - 8.7 x10 3/ul 06/16/2017 6:22 AM [facility] [employer] HISTORICAL RESULTS Immature Gran # 0.0 0.0 - 0.3 x10 3/ul 06/16/2017 6:22 AM [facility] [employer] HISTORICAL RESULTS Absolute Lymphs (auto) 1.9 0.2 - 4.6 x10 3/ul 06/16/2017 6:22 AM [employer] HISTORICAL RESULTS Absolute Monos (auto) 0.6 0.1 - 1.5 x10 3/ul Absolute Eos (auto) 0.0 0.0 - 0.7 x10 3/ul 06/16/2017 6:22 AM [facility] HISTORICAL RESULTS Absolute Basos (auto) 0.0 0.0 - 0.2 x10 3/ul 06/16/2017 6:22 AM [facility] HISTORICAL RESULTS Nucleat RBC Rel Count 0.0 0 - 3 #/100WBC 06/16/2017 6:22 AM [facility] HISTORICAL RESULTS Absolute Nucleated RBC 0.00 x10 3/ul Absolute Neutrophils 4400 200 - 8000 /ul 06/16/2017 5:34 AM [facility] 06/16/2017 6:15 AM [facility] Myron Rocha MD LAB BLOOD ORDERABLES Final Result [facility] HISTORICAL RESULTS * (ABNORMAL) Basic metabolic panel (06/16/2017 5:34 AM [facility]) Sodium 144 135 - 145 mmol/L Potassium 4.2 3.3 - 5.1 mmol/L Chloride 107 96 - 108 mmol/L Carbon Dioxide 29 22 - 32 mmol/L Anion Gap 8 7 - 16 Glucose 84 70 - 100 mg/dL BUN 6 6 - 20 mg/dL Creatinine 0.9 0.5 - 1.3 mg/dL Comment: NOTE: Estimated GFR (Cockroft-Gault) will NOT be calculated unless patient Height and Weight were entered. Also, Kidney Disease Stage (GFR) and Estimated GFR (Cockroft-Gault) will NOT be calculated if Creatinine result is <0.2. Kidney Disease Stage > 90 mL/MIN 06/16/2017 6:56 AM [facility] [employer] HISTORICAL RESULTS Comment: NOTE; ??The GFR is [...] or on dialysis @ Est GFR (Cockcroft-G) 92 ml/MIN 06/16/2017 6:56 AM [facility] [employer] HISTORICAL RESULTS Comment: Estimated GFR(Cockroft-Gault)is used to calculate patient medication dosage Calcium 8.4(L) 8.6 - 10.0 mg/dL 06/16/2017 6:56 AM [facility] [employer] HISTORICAL RESULTS 06/16/2017 5:34 AM [facility] 06/16/2017 6:15 AM [facility] Myron Rocha MD LAB BLOOD ORDERABLES Final Result [facility] * Lipase (06/15/2017 1:59 AM [facility]) Lipase 30 13 - 60 U/L 06/15/2017 1:59 AM [facility] 06/15/2017 2:02 AM [facility] Myron Rocha MD LAB BLOOD ORDERABLES Final Result [facility] HISTORICAL RESULTS * (ABNORMAL) Comprehensive metabolic panel (06/15/2017 1:59 AM [facility]) [facility] Sodium 140 135 - 145 mmol/L Potassium 3.7 3.3 - 5.1 mmol/L Chloride 98 96 - 108 mmol/L Carbon Dioxide 31 22 - 32 mmol/L Anion Gap 11 7 - 16 Glucose 102(H) 70 - 100 mg/dL BUN 13 6 - 20 mg/dL Creatinine 0.9 0.5 [...] or on dialysis @ Est GFR (Cockcroft-G) 97 ml/MIN 06/15/2017 2:34 AM [employer] [facility] HISTORICAL RESULTS Comment: Estimated GFR(Cockroft-Gault)is used to calculate patient medication dosage Calcium 8.5(L) 8.6 - 10.0 mg/dL 06/15/2017 2:34 AM [employer] [facility] [employer] HISTORICAL RESULTS Total Protein 6.7 6.4 - 8.3 g/dL 06/15/2017 2:34 AM [employer] [facility] HISTORICAL RESULTS Albumin 3.5 3.5 - 5.2 g/dL 06/15/2017 2:34 AM [facility] HISTORICAL RESULTS Globulin 3.2 2.3 - 3.5 gm/dL 06/15/2017 2:34 AM [facility] Albumin/Globulin Ratio 1.1 1.1 - 1.8 06/15/2017 2:34 AM [facility] [employer] HISTORICAL RESULTS Total Bilirubin 0.3 0.0 - 1.2 mg/dL 06/15/2017 2:34 AM [employer] [facility] [employer] HISTORICAL RESULTS AST 10 0 - 40 U/L 06/15/2017 2:34 AM [employer] [facility] HISTORICAL RESULTS ALT 12 0 - 41 U/L 06/15/2017 2:34 AM [facility] HISTORICAL RESULTS Alkaline Phosphatase 81 40 - 129 U/L 06/15/2017 2:34 AM [facility] [employer] HISTORICAL RESULTS 06/15/2017 1:59 AM [facility] 06/15/2017 2:02 AM [facility] Myron Rocha MD LAB BLOOD ORDERABLES Final Result [employer] HISTORICAL RESULTS * (ABNORMAL) CBC with auto differential (06/15/2017 1:59 AM [facility]) WBC 10.6(H) 3.5 - 10.5 x10 3/ul 06/15/2017 2:05 AM [facility] [employer] HISTORICAL RESULTS Comment:New Reference Range in use 06/12/17. RBC 3.96(L) 4.11 - 5.71 x10 6/ul 06/15/2017 2:05 AM [facility] [employer] HISTORICAL RESULTS Hemoglobin 12.5(L) 13.0 - 17.0 g/dl 06/15/2017 2:05 AM [facility] [employer] HISTORICAL RESULTS Hct 36.9(L) 38.2 - 48.5 % 06/15/2017 2:05 AM [facility] [employer] HISTORICAL RESULTS MCV 93.2 80.0 - 97.0 fl 06/15/2017 2:05 AM [facility] [employer] HISTORICAL RESULTS MCH 31.6(H) 27.0 - 31.2 pg 06/15/2017 2:05 AM [facility] [employer] HISTORICAL RESULTS MCHC 33.9 31.8 - 35.4 g/dl 06/15/2017 2:05 AM [employer] HISTORICAL RESULTS RDW 15.3(H) 11.6 - 14.8 % 06/15/2017 2:05 AM [facility] [employer] HISTORICAL RESULTS Plt Count 257 150 - 450 x10 3/ul 06/15/2017 2:05 AM [facility] [employer] HISTORICAL RESULTS Comment:New Reference Range in use 06/12/17. MPV 7.9 7.4 - 10.4 fl 06/15/2017 2:05 AM [facility] [employer] HISTORICAL RESULTS Neut % 73.8 37.0 - 85.0 % 06/15/2017 2:05 AM [facility] [employer] HISTORICAL RESULTS Immature Gran % 0.3 0.0 - 3.0 % 06/15/2017 2:05 AM [facility] [employer] HISTORICAL RESULTS Lymph % 19.5 5.0 - 45.0 % 06/15/2017 2:05 AM [facility] HISTORICAL RESULTS [place] % 6.0 3.0 - 15.0 % Eos % 0.2 0.0 - 7.0 % Baso % 0.2 0.0 - 2.0 % Absolute Neuts (auto) 7.8 1.7 - 8.7 x10 3/ul 06/15/2017 2:05 AM [facility] HISTORICAL RESULTS Immature Gran # 0.0 0.0 - 0.3 x10 3/ul Absolute Lymphs (auto) 2.1 0.2 - 4.6 x10 3/ul Absolute Monos (auto) 0.6 0.1 - 1.5 x10 3/ul Absolute Eos (auto) 0.0 0.0 - 0.7 x10 3/ul Absolute Basos (auto) 0.0 0.0 - 0.2 x10 3/ul Nucleat RBC Rel Count 0.0 0 - 3 #/100WBC Absolute Nucleated RBC 0.00 x10 3/ul Absolute Neutrophils 7800 200 - 8000 /ul 06/15/2017 1:59 AM [facility] 06/15/2017 2:02 AM [facility] Myron Rocha MD LAB BLOOD ORDERABLES Final Result [facility] HISTORICAL RESULTS * (ABNORMAL) Amylase (06/15/2017 1:59 AM [facility]) Amylase 160(H) 28 - 100 U/L 06/15/2017 2:34 AM [facility] HISTORICAL RESULTS 06/15/2017 1:59 AM [facility] 06/15/2017 2:02 AM [facility] Myron Rocha MD LAB BLOOD ORDERABLES Final Result [facility] HISTORICAL RESULTS * CT Abdomen Pelvis W Contrast (06/15/2017 12:00 AM [facility]) Anatomical Region Laterality Modality Body N/A Computed Tomogra phy 06/15/2017 Impressions 06/15/2017 4:41 AM [facility] 1. ??Mechanical small bowel obstruction with transition point seen in the small bowel just proximal to the entero colic anastomosis in the right side of the abdomen. ??Active Crohn's enteritis is seen at this transition point with mucosal hyperenhancement, luminal narrowing, and wall thickening of this small bowel. Findings are not significantly changed since May 03, 2017. 2. ??No pneumoperitoneum or evidence of bowel perforation. Critical findings discussed with Dr. Rocha at 4:30 a.m. Automated exposure control was used as a dose optimization technique for this examination. THIS IS AN ELECTRONICALLY VERIFIED REPORT 06/15/2017 4:37 AM: ??Willard Hernandez M.D. ?? Willard Hernandez M.D. MA:jefry 04:37 AM 04:37 AM [facility] [EOD] Narrative 06/15/2017 4:41 AM [facility] EXAMINATION: ??CT abdomen and pelvis with contrast HISTORY: ??Right lower quadrant abdominal pain and left-sided abdominal pain due to Crohn disease. ??Vomiting and diarrhea today. COMPARISON: ??CT abdomen and pelvis May 03, 2017 TECHNIQUE: ??Axial CT images through the abdomen and pelvis were obtained after the uneventful intravenous administration of 100 mL of Optiray 350 via the left hand IV. FINDINGS: ?? Abdomen:Gallbladder is normal in caliber. ??Liver, spleen, adrenal glands, pancreas, and both kidneys are normal. ??No bowel obstruction. ??Entero colic end-to-side anastomosis is seen in the right paramidline abdomen. ??The small bowel proximal to this anastomoses is abnormally wall thickened with mucosal hyperenhancement and luminal narrowing likely representing active Crohn's enteritis. ??The bowel upstream from this segment of Crohn's enteritis is abnormally dilated with small bowel feces sign. ??This likely represents mechanical small bowel obstruction. ??These findings are not significantly changed since May 03, 2017. ??No bowel perforation. ??No pneumoperitoneum. ?? Minimal ascites. ??No abdominal aortic aneurysm. ??No mesenteric or retroperitoneal lymphadenopathy. Pelvis:Urinary bladder is decompressed. ??No bladder calculi. ??No pelvic or inguinal lymphadenopathy. ??There is colonic diverticulosis without evidence of acute diverticulitis. Procedure Note Provider, MD David - 10/10/2020 EXAMINATION: CT abdomen and pelvis with contrast HISTORY: Right lower quadrant abdominal pain and left-sided abdominalpain due to Crohn disease. Vomiting and diarrhea today. COMPARISON: CT abdomen and pelvis May 03, 2017 TECHNIQUE: Axial CT images through the abdomen and pelvis were obtainedafter the uneventful intravenous administration of 100 mL of Optiray 350 via the left hand IV. FINDINGS: Abdomen:Gallbladder is normal in caliber. Liver, spleen, adrenal glands, pancreas, and both kidneys are normal. No bowel obstruction. Enterocolic end-to-side anastomosis is seen in the right paramidline abdomen. Thesmall bowel proximal to this anastomoses is abnormally wall thickened withmucosal hyperenhancement and luminal narrowing likely representing active Crohn's enteritis. The bowel upstream from this segment of Crohn's enteritis is abnormally dilated with small bowel feces sign. This likely represents mechanical small bowel obstruction. These findings are not significantly changed since May 03, 2017. No bowel perforation. Nopneumoperitoneum. Minimal ascites. No abdominal aortic aneurysm. No mesenteric or retroperitoneal lymphadenopathy. Pelvis:Urinary bladder is decompressed. No bladder calculi. No pelvic or inguinal lymphadenopathy. There is colonic diverticulosis withoutevidence of acute diverticulitis. IMPRESSION: 1. Mechanical small bowel obstruction with transition point seen in thesmall bowel just proximal to the entero colic anastomosis in the right side ofthe abdomen. Active Crohn's enteritis is seen at this transition point with mucosal hyperenhancement, luminal narrowing, and wall thickening of thissmall bowel. Findings are not significantly changed since May 03, 2017. 2. No pneumoperitoneum or evidence of bowel perforation. Critical findings discussed with Dr. Rocha at 4:30 a.m. Automated exposure control was used as a dose optimization technique forthis examination. THIS IS AN ELECTRONICALLY VERIFIED REPORT 06/15/2017 4:37 AM: Willard Hernandez M.D. Willard Hernandez M.D. 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
--- OUTSIDE RECORDS SUMMARY | 2024-06-06 03:29 | XMS_ITS | Encounter Summary ---
Author Organization [facility] Healthcare Address [address] [place] [address] Care Team Providers Care Nurse Educator Name Role Phone Unavailable Primary Care Provider Unavailabl e Encounter Details Date Type Department Care Team (Latest Contact Info) Description 09/04/2015 9:47 AM CDT - 09/07/2015 4:20 PM CDT [facility] Hemant Lopez MD [address] [place] [id number] Crohn's disease of small intestine with intestinal obstruction (CMS/HCC); Essential (primary) hypertension; Acquired absence of other specified parts of digestive tract; Cigarette nicotine dependence, uncomplicated Social History Tobacco Use Types Packs/Day Years Used Date Smoking Tobacco: Never Assessed Sex and Gender Information Value Date Recorded Sex Assigned at Not on file 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 Gender Identity Not on file Sexual Orientation Not on file documented as of this encounter Last Filed Vital Signs Vital Sign Reading Time Taken Comments Blood Pressure 144/78 09/05/2015 10:11 AM CDT Pulse 69 09/05/2015 10:11 AM CDT Temperature 36.6 ??C (97.9 ??F) 09/05/2015 10:11 AM C DT Respiratory Rate - - Oxygen Saturation 98% 09/05/2015 10:11 AM CDT Inhaled Oxygen Concentration - - Weight 68 kg (150 lb) 09/05/2015 10:11 AM CDT Height 167.6 cm (5' 6 ) 09/05/2015 10:11 AM CDT Body Mass Index 24.21 09/05/2015 10:11 AM CDT documented in this encounter Plan of Treatment Not on file documented as of this encounter Procedures Procedure Name Priority Date/Time Associated Diagnosis Comments CBC WITH AUTO DIFFERENTIAL Routine 09/07/2015 10:59 AM CDT BASIC METABOLIC PANEL Routine 09/07/2015 10:59 AM CDT CBC WITH AUTO DIFFERENTIAL Routine 09/06/2015 5:34 AM CDT BASIC METABOLIC PANEL Routine 09/06/2015 5:34 AM CDT CBC WITH AUTO DIFFERENTIAL Routine 09/05/2015 4:33 AM CDT BASIC METABOLIC PANEL Routine 09/05/2015 4:33 AM CDT XR ABDOMEN 2 VIEWS W CHEST 1 VIEW Routine 09/05/2015 12:00 AM CDT TB TEST, QUANTIFERON GOLD Routine 09/04/2015 1:19 PM CDT URINALYSIS AND REFLEX TO MICROSCOPIC AND CULTURE Routine 09/04/2015 8:51 AM CDT CBC WITH AUTO DIFFERENTIAL Routine 09/04/2015 7:45 AM CDT LIPASE Routine 09/04/2015 7:45 AM CDT COMPREHENSIVE METABOLIC PANEL Routine 09/04/2015 7:[address] ABDOMEN PELVIS W CONTRAST Routine 09/04/2015 6:47 AM CDT XR ABDOMEN AP 1 VIEW Routine 09/04/2015 12:00 AM CDT documented in this encounter Results * (ABNORMAL) CBC with auto differential (09/07/2015 10:59 AM CDT) WBC 7.1 4.6 - 10.2 x10 3/ul 09/07/2015 11:[address] [facility] RES[facility] RBC 3.65(L) 4.11 - 5.71 x10 6/ul 09/07/2015 11:[address] [facility] HISTORICAL RESULTS Hemoglobin 11.7(L) 13.0 - 17.0 g/dl 09/07/2015 11:[address] [facility] HISTORICAL RESULTS Hct 34.2(L) 38.2 - 48.5 % 09/07/2015 11:[address] [facility] HISTORICAL RESULTS MCV 93.7 80.0 - 97.0 fl 09/07/2015 11:26 AM [facility] HISTORICAL RESULTS MCH 32.1(H) 27.0 - 31.2 pg 09/07/2015 11:26 AM [facility] HISTORICAL RESULTS MCHC 34.2 31.8 - 35.4 g/dl 09/07/2015 11:[address] [facility] HISTORICAL RESULTS RDW 15.6(H) 11.6 - 14.8 % 09/07/2015 11:26 AM [facility] HISTORICAL RESULTS Plt Count 329 124 - 400 x10 3/ul 09/07/2015 11:26 AM [facility] HISTORICAL RESULTS MPV 7.8 7.4 - 10.4 fl 09/07/2015 11:26 AM [facility] HISTORICAL RESULTS Differential Method AUTOMATED DIFF --------- -- 09/07/2015 11:26 AM [facility] HISTORICAL RESULTS Neut % 84.8 37.0 - 85.0 % 09/07/2015 11:26 AM [facility] HISTORICAL RESULTS Immature Gran % 0.4 0.0 - 3.0 % 09/07/2015 11:26 AM [facility] Lymph % 9.7 5.0 - 45.0 % 09/07/2015 11:[address] [facility] HISTORICAL RESULTS [place] % 5.0 3.0 - 15.0 % 09/07/2015 11:[address] [facility] HISTORICAL RESULTS Eos % 0.0 0.0 - 7.0 % 09/07/2015 11:[address] [facility] HISTORICAL RESULTS Baso % 0.1 0.0 - 2.0 % ABSOLUTE COUNTS ABSOLUTE COUNTS --------- -- Absolute Neuts (auto) 6.0 1.7 - 8.7 x10 3/ul Immature Gran # 0.0 0.0 - 0.3 x10 3/ul Absolute Lymphs (auto) 0.7 0.2 - 4.6 x10 3/ul Absolute Monos (auto) 0.4 0.1 - 1.5 x10 3/ul Absolute Eos (auto) 0.0 0.0 - 0.7 x10 3/ul Absolute Basos (auto) 0.0 0.0 - 0.2 x10 3/ul 09/07/2015 10:5 9 AM CDT 09/07/2015 11:08 AM CDT Deanne Ramos MD LAB BLOOD ORDERABLES F inal Result [facility] HISTORICAL RESULTS * (ABNORMAL) Basic metabolic panel (09/07/2015 10:59 AM CDT) Sodium 139 135 - 145 mmol/L Potassium 3.7 3.3 - 5.1 mmol/L Chloride 104 96 - 108 mmol/L Carbon Dioxide 26 22 - 32 mmol/L Anion Gap 9 7 - 16 09/07/2015 11:41 AM [facility] Glucose 141(H) 70 - 100 mg/dL 09/07/2015 11:41 AM [facility] HISTORICAL RESULTS BUN 7 6 - 20 mg/dL 09/07/2015 11:41 AM [facility] HISTORICAL RESULTS Creatinine 1.0 0.5 - 1.3 mg/dL 09/07/2015 11:41 AM [facility] HISTORICAL RESULTS Comment: NOTE: Estimated GFR (Cockroft-Gault) will NOT be calculated unless patient Height and Weight were entered. Also, Kidney Disease Stage (GFR) and Estimated GFR (Cockroft-Gault) will NOT be calculated if Creatinine result is <0.2. Kidney Disease Stage > 90 mL/MIN 09/07/2015 11:41 AM [facility] HISTORICAL RESULTS Comment: NOTE; ??The GFR is [...] or on dialysis @ Est GFR (Cockcroft-G) 83 ml/MIN 09/07/2015 11:41 AM [facility] [employer] HISTORICAL RESULTS Calcium 8.8 8.6 - 10.0 mg/dL 09/07/2015 11:41 AM [facility] 09/07/2015 10:5 9 AM CDT 09/07/2015 11:08 AM CDT us Deanne Ramos MD LAB BLOOD ORDERABLES F inal Result [employer] HISTORICAL RESULTS * (ABNORMAL) CBC with auto differential (09/06/2015 5:34 AM CDT) WBC 7.0 4.6 - 10.2 x10 3/ul 09/06/2015 5:53 AM CDT [facility] HISTORICAL RESULTS RBC 3.56(L) 4.11 - 5.71 x10 6/ul 09/06/2015 5:53 AM CDT [facility] HISTORICAL RESULTS Hemoglobin 11.5(L) 13.0 - 17.0 g/dl 09/06/2015 5:53 AM CDT [facility] [employer] HISTORICAL RESULTS Hct 33.2(L) 38.2 - 48.5 % 09/06/2015 5:53 AM CDT [facility] HISTORICAL RESULTS MCV 93.3 80.0 - 97.0 fl 09/06/2015 5:53 AM CDT [facility] [employer] HISTORICAL RESULTS MCH 32.3(H) 27.0 - 31.2 pg 09/06/2015 5:53 AM CDT [employer] [facility] HISTORICAL RESULTS MCHC 34.6 31.8 - 35.4 g/dl 09/06/2015 5:53 AM CDT [facility] HISTORICAL RESULTS RDW 15.2(H) 11.6 - 14.8 % 09/06/2015 5:53 AM CDT [facility] HISTORICAL RESULTS Plt Count 303 124 - 400 x10 3/ul 09/06/2015 5:53 AM CDT [facility] [employer] HISTORICAL RESULTS MPV 7.7 7.4 - 10.4 fl 09/06/2015 5:53 AM CDT [facility] [employer] HISTORICAL RESULTS Differential Method AUTOMATED DIFF --------- -- 09/06/2015 5:53 AM CDT [facility] HISTORICAL RESULTS Neut % 82.8 37.0 - 85.0 % 09/06/2015 5:53 AM CDT [employer] [facility] HISTORICAL RESULTS Immature Gran % 0.3 0.0 - 3.0 % Lymph % 10.4 5.0 - 45.0 % [place] % 6.5 3.0 - 15.0 % Eos % 0.0 0.0 - 7.0 % Baso % 0.0 0.0 - 2.0 % ABSOLUTE COUNTS ABSOLUTE COUNTS --------- -- Absolute Neuts (auto) 5.8 1.7 - 8.7 x10 3/ul Immature Gran # 0.0 0.0 - 0.3 x10 3/ul Absolute Lymphs (auto) 0.7 0.2 - 4.6 x10 3/ul Absolute Monos (auto) 0.5 0.1 - 1.5 x10 3/ul Absolute Eos (auto) 0.0 0.0 - 0.7 x10 3/ul Absolute Basos (auto) 0.0 0.0 - 0.2 x10 3/ul 09/06/2015 5:34 AM CDT 09/06/2015 5:41 AM CDT us Deanne Ramos MD LAB BLOOD ORDERABLES F inal Result [facility] HISTORICAL RESULTS * (ABNORMAL) Basic metabolic panel (09/06/2015 5:34 AM CDT) [facility] Sodium 138 135 - 145 mmol/L Potassium 4.0 3.3 - 5.1 mmol/L Chloride 104 96 - 108 mmol/L Carbon Dioxide 25 22 - 32 mmol/L Anion Gap 9 7 - 16 Glucose 143(H) 70 - 100 mg/dL BUN 8 6 - 20 mg/dL Creatinine 1.0 0.5 - 1.3 mg/dL Comment: NOTE: Estimated [...] or on dialysis @ Est GFR (Cockcroft-G) 83 ml/MIN 09/06/2015 6:10 AM CDT [facility] HISTORICAL RESULTS Calcium 8.3(L) 8.6 - 10.0 mg/dL 09/06/2015 6:10 AM CDT [facility] [employer] HISTORICAL RESULTS 09/06/2015 5:34 AM CDT 09/06/2015 5:41 AM CDT us Deanne Ramos MD LAB BLOOD ORDERABLES F inal Result [facility] [employer] HISTORICAL RESULTS * (ABNORMAL) CBC with auto differential (09/05/2015 4:33 AM CDT) WBC 6.5 4.6 - 10.2 x10 3/ul 09/05/2015 5:23 AM CDT [facility] HISTORICAL RESULTS RBC 3.79(L) 4.11 - 5.71 x10 6/ul 09/05/2015 5:23 AM CDT [facility] HISTORICAL RESULTS Hemoglobin 12.3(L) 13.0 - 17.0 g/dl 09/05/2015 5:23 AM T [facility] [employer] HISTORICAL RESULTS Hct 35.9(L) 38.2 - 48.5 % 09/05/2015 5:23 AM T [facility] HISTORICAL RESULTS MCV 94.7 80.0 - 97.0 fl 09/05/2015 5:23 AM CDT [employer] HISTORICAL RESULTS MCH 32.5(H) 27.0 - 31.2 pg 09/05/2015 5:23 AM CDT [employer] HISTORICAL RESULTS MCHC 34.3 31.8 - 35.4 g/dl 09/05/2015 5:23 AM CDT [facility] [employer] HISTORICAL RESULTS RDW 14.9(H) 11.6 - 14.8 % 09/05/2015 5:23 AM CDT [facility] [employer] HISTORICAL RESULTS Plt Count 360 124 - 400 x10 3/ul 09/05/2015 5:23 AM CDT [employer] [facility] HISTORICAL RESULTS MPV 8.0 7.4 - 10.4 fl Differential Method AUTOMATED DIFF --------- -- Neut % 80.7 37.0 - 85.0 % Immature Gran % 0.3 0.0 - 3.0 % Lymph % 14.8 5.0 - 45.0 % [place] % 4.0 3.0 - 15.0 % Eos % 0.0 0.0 - 7.0 % Baso % 0.2 0.0 - 2.0 % ABSOLUTE COUNTS ABSOLUTE COUNTS --------- -- Absolute Neuts (auto) 5.2 1.7 - 8.7 x10 3/ul Immature Gran # 0.0 0.0 - 0.3 x10 3/ul Absolute Lymphs (auto) 1.0 0.2 - 4.6 x10 3/ul Absolute Monos (auto) 0.3 0.1 - 1.5 x10 3/ul Absolute Eos (auto) 0.0 0.0 - 0.7 x10 3/ul Absolute Basos (auto) 0.0 0.0 - 0.2 x10 3/ul 09/05/2015 4:33 AM CDT 09/05/2015 5:07 AM CDT Henry Douglass MD LAB BLOOD ORDERABLES Final Result [facility] HISTORICAL RESULTS * (ABNORMAL) Basic metabolic panel (09/05/2015 4:33 AM CDT) Sodium 138 135 - 145 mmol/L 09/05/2015 5:[address] [facility] HISTORICAL RESULTS Potassium 4.0 3.3 - 5.1 mmol/L Chloride 102 96 - 108 mmol/L Carbon Dioxide 26 22 - 32 mmol/L Anion Gap 10 7 - 16 Glucose 106(H) 70 - 100 mg/dL BUN 9 6 - 20 mg/dL Creatinine 0.9 0.5 [...] dialysis @ Est GFR (Cockcroft-G) 92 ml/MIN 09/05/2015 5:39 AM CDT [facility] [employer] HISTORICAL RESULTS Calcium 8.4(L) 8.6 - 10.0 mg/dL 09/05/2015 5:[address] [facility]ISTOR[facility] RESULTS 09/05/2015 4:33 AM CDT 09/05/2015 5:07 AM CDT us Henry Douglass MD LAB BLOOD ORDERABLES Final Result [facility] [employer] HISTORICAL RESULTS * XR Abdomen 2 Views W Chest 1 View (09/05/2015 12:00 AM CDT) Anatomical Region Laterality Modality Body, Abdomen N/A Radiographic Annita ging 09/05/2015 Impressions 09/05/2015 8:49 AM CDT ?? 1. ??No acute cardiopulmonary finding. 2. ??Further decreased small bowel dilation. THIS IS AN ELECTRONICALLY VERIFIED REPORT 09/05/2015 8:46 AM: ??Ugo Duncan M.D. ?? Ugo Duncan M.D. ALTHEA:althea 08:46 AM 08:46 AM [facility] [EOD] Narrative 09/05/2015 8:49 AM CDT EXAMINATION: ??Single view the chest and upright and supine AP view of the abdomen . HISTORY: ??Crohn disease with small bowel obstruction, follow-up from previous day TECHNIQUE: ??Single view the chest and upright and supine AP view of the abdomen. COMPARISON: Radiographs from previous day. FINDINGS: ??The lungs are clear. ??No pneumothorax or pleural effusion. ??The heart is within normal limits for size. ??Pulmonary vascularity is within normal limits for this technique. ??There is no air under the diaphragms. No free abdominal air. The nasogastric tube tip is seen overlying the expected location of the antrum/pylorus. ??Dilated loops of bowel seen on the prior study are no longer seen. Procedure Note Provider, MD David - 10/10/2020 EXAMINATION: Single view the chest and upright and supine AP view of the abdomen . HISTORY: Crohn disease with small bowel obstruction, follow-up fromprevious day TECHNIQUE: Single view the chest and upright and supine AP view of the abdomen. COMPARISON: Radiographs from previous day. FINDINGS: The lungs are clear. No pneumothorax or pleural effusion. The heart is within normal limits for size. Pulmonary vascularity is within normal limits for this technique. There is no air under the diaphragms. No free abdominal air. The nasogastric tube tip is seen overlying theexpected location of the antrum/pylorus. Dilated loops of bowel seen on the prior study are no longer seen. IMPRESSION: 1. No acute cardiopulmonary finding. 2. Further decreased small bowel dilation. THIS IS AN ELECTRONICALLY VERIFIED REPORT 09/05/2015 8:46 AM: Ugo Duncan M.D. Ugo Duncan M.D. ALTHEA:althea 08:46 AM 08:46 AM [facility] [EOD] Henry Douglass MD IMG XR PROCEDURES Final Re sult * TB test, quantiferon gold (09/04/2015 1:19 PM CDT) Quantiferon TB gold plus Negative Negative 09/07/2015 3:14 AM CDT [facility] HISTORICAL RESULTS Comment: INTERPRETIVE INFORMATION: QuantiFERON-TB Gold In-Tube ?? Interferon gamma release is measured for specimens from ?? each of the three collection tubes. A qualitative result ?? (Negative, Positive, or Indeterminate) is based on ?? interpretation of the three values, NIL, MITOGEN minus NIL ?? (MITOGEN-NIL), and TB minus NIL (TB-NIL). The NIL value ?? represents nonspecific reactivity produced by the patient ?? specimen. The MITOGEN-NIL value serves as the positive ?? control for the patient specimen, demonstrating successful ?? lymphocyte activity. The TB-NIL value represents lymphocyte ?? reactivity specifically stimulated by the TB antigen. An ?? overall Negative result does not completely rule out TB ?? infection. ?? A false-positive result in the absence of other clinical ?? evidence of TB infection is not uncommon. Refer to: Updated ?? Guidelines for Using Interferon Gamma Release Assays to ?? Detect Mycobacterium tuberculosis Infection --- [place] ?? [place], 2009 ?? (http://www.cdc.gov/mmwr/preview/mmwrhtml/mm6060j7.htm), ?? for information concerning test performance in ?? low-prevalence populations and use in occupational ?? screening. ?? Quantiferon mitogen - NIL 0.01 0.00 - 0.34 IU/mL 09/07/2015 3:14 AM CDT [facility] HISTORICAL RESULTS Quantiferon mitogen - NIL 4.58 () IU/mL 09/07/2015 3:14 AM CDT [facility] [employer] HISTORICAL RESULTS Quantiferon NIL 0.07 () IU/mL 6 3:14 AM CDT [facility] HISTORICAL RESULTS Comment: Performed by [facility], ?? [address] [place] [address] ?? [email or web address], Jason Dowd MD, Lab. Director ?? 09/04/2015 1:19 PM CDT 09/04/2015 2:14 PM CDT Chantal Rashid [employer] LAB BLOOD ORDERABLES Final Result [facility] HISTORICAL RESULTS * (ABNORMAL) Urinalysis reflex to microscopic and culture (09/04/2015 8:51 AM T) Ur Collection Type CLEAN CATCH Ur Culture Indicated? C&S NOT INDICATED Urine Color YELLOW YELLOW Urine Clarity CLEAR CLEAR Urine Glucose (UA) NORMAL NORMAL mg/dL Urine Bilirubin NEGATIVE NEGATIVE mg/dl Urine Ketones NEGATIVE NEGATIVE mg/dL Ur Specific [place] 1.044(H) 1.005 - 1.025 Urine Blood NEGATIVE NEGATIVE mg/dl Urine pH 5.0 5.0 - 8.0 Urine Protein NEGATIVE NEGATIVE mg/dL Urine Urobilinogen NORMAL NORMAL mg/dL Urine Nitrite NEGATIVE NEGATIVE Ur Leukocyte Esterase NEGATIVE NEGATIVE Natalio/ul Ur Microscopic Review Indicated or Ordered Urine RBC 4 0 - 2 /HPF Urine WBC 1 0 - 2 /HPF Urine Mucus RARE /LPF Hyaline Casts 1 0 - 2 /LPF 09/04/2015 8:51 AM CDT 09/04/2015 8:56 AM CDT [facility] MICROBIOLOGY - GENERAL OR DERABLES Final Result Performing Organization Address City/[facility]/ZIP Co de Phone Number [facility] HISTORICAL RESULTS * (ABNORMAL) Lipase (09/04/2015 7:45 AM CDT) Lipase 64(H) 13 - 60 U/L 09/04/2015 7:45 AM CDT 09/04/2015 7:49 AM CDT [facility] LAB BLOOD ORDERABLES Final Re sult Performing Organization Address [facility] Co de Phone Number [facility] HISTORICAL RESULTS * (ABNORMAL) Comprehensive metabolic panel (09/04/2015 7:45 AM CDT) Sodium 138 135 - 145 mmol/L Potassium 3.7 3.3 - 5.1 mmol/L Chloride 100 96 - 108 mmol/L Carbon Dioxide 26 22 - 32 mmol/L Anion Gap 12 7 - 16 Glucose 106(H) 70 - 100 mg/dL BUN 10 6 - 20 mg/dL Creatinine 0.9 0.5 [...] dialysis @ Est GFR (Cockcroft-G) 92 ml/MIN Calcium 8.7 8.6 - 10.0 mg/dL 09/04/2015 8:14 AM [facility] HISTORICAL RESULTS Total Protein 6.3(L) 6.4 - 8.3 g/dL 09/04/2015 8:14 AM [facility] HISTORICAL RESULTS Albumin 3.7 3.5 - 5.2 g/dL 09/04/2015 8:14 AM [facility] HISTORICAL RESULTS Globulin 2.6 2.3 - 3.5 gm/dL Albumin/Globulin Ratio 1.4 1.1 - 1.8 09/04/2015 8:14 AM [facility] HISTORICAL RESULTS Total Bilirubin 0.3 0.0 - 1.2 mg/dL AST 12 0 - 40 U/L 09/04/2015 8:[address] [facility] RESULTS ALT 10 0 - 41 U/L Alkaline Phosphatase 70 40 - 129 U/L 09/04/2015 7:45 AM CDT 09/04/2015 7:49 AM CDT us [facility] LAB BLOOD ORDERABLES Final Re sult [facility] HISTORICAL RESULTS * (ABNORMAL) CBC with auto differential (09/04/2015 7:45 AM CDT) WBC 8.0 4.6 - 10.2 x10 3/ul 09/04/2015 7:[address] [facility] H[facility]OR[facility] RESULTS RBC 3.71(L) 4.11 - 5.71 x10 6/ul 09/04/2015 7:[address] [facility] HISTORICAL RESULTS Hemoglobin 12.2(L) 13.0 - 17.0 g/dl 09/04/2015 7:[address] [facility] HISTORICAL RESULTS Hct 35.5(L) 38.2 - 48.5 % 09/04/2015 7:[address] [facility] HISTORICAL RESULTS MCV 95.7 80.0 - 97.0 fl 09/04/2015 7:[address] [facility] HISTORICAL RESULTS MCH 32.9(H) 27.0 - 31.2 pg 09/04/2015 7:[address] [facility] HISTORICAL RESULTS MCHC 34.4 31.8 - 35.4 g/dl 09/04/2015 7:[address] [facility] HISTORICAL RESULTS RDW 15.3(H) 11.6 - 14.8 % 09/04/2015 7:[address] [facility] HISTORICAL RESULTS Plt Count 313 124 - 400 x10 3/ul MPV 7.8 7.4 - 10.4 fl Differential Method AUTOMATED DIFF --------- -- Neut % 74.7 37.0 - 85.0 % Immature Gran % 0.3 0.0 - 3.0 % Lymph % 17.0 5.0 - 45.0 % [place] % 7.4 3.0 - 15.0 % Eos % 0.3 0.0 - 7.0 % Baso % 0.3 0.0 - 2.0 % ABSOLUTE COUNTS ABSOLUTE COUNTS --------- -- Absolute Neuts (auto) 6.0 1.7 - 8.7 x10 3/ul Immature Gran # 0.0 0.0 - 0.3 x10 3/ul Absolute Lymphs (auto) 1.4 0.2 - 4.6 x10 3/ul Absolute Monos (auto) 0.6 0.1 - 1.5 x10 3/ul Absolute Eos (auto) 0.0 0.0 - 0.7 x10 3/ul Absolute Basos (auto) 0.0 0.0 - 0.2 x10 3/ul 09/04/2015 7:45 AM CDT 09/04/2015 7:49 AM CDT us [facility] LAB BLOOD ORDERABLES Final Re sult [facility] HISTORICAL RESULTS * CT Abdomen Pelvis W Contrast (09/04/2015 6:47 AM CDT) Anatomical Region Laterality Modality Body N/A Computed Tomogra phy 09/04/2015 6:47 AM CDT Narrative 09/04/2015 9:[address] scan of the abdomen and pelvis with intravenous contrast History of abdominal pain. ??Nausea and vomiting Symptoms for 1 day Comparison 10/09/2011 and 07/14/15 The patient received 100 mL Omnipaque 350 right forearm no complication Findings: Lung bases are clear and the heart size is normal. Liver spleen and kidneys are within normal limits. ??Pancreas is normal. ?? Adrenal glands are normal. There is a mid small bowel obstruction secondary to a significantly inflamed loop of bowel resulting in a stricture and narrowing. ??This is adjacent to the prior surgical site. Impression There is a mid small bowel obstruction secondary to a significantly circumferential inflamed loop of small bowel. ??This may relate to Crohn disease Automated exposure control was used as a dose optimization technique for this examination. THIS IS AN ELECTRONICALLY VERIFIED REPORT 09/04/2015 8:59 AM: ??Danny Davis M.D. ?? Danny Davis M.D. NC:karlos 08:59 AM 08:59 AM [facility] [EOD] Procedure Note Provider, David, - 10/10/2020 CT scan of the abdomen and pelvis with intravenous contrast History of abdominal pain. Nausea and vomiting Symptoms for 1 day Comparison 10/09/2011 and 07/14/15 The patient received 100 mL Omnipaque 350 right forearm no complication Findings: Lung bases are clear and the heart size is normal. Liver spleen and kidneys are within normal limits. Pancreas is normal. Adrenal glands are normal. There is a mid small bowel obstruction secondary to a significantlyinflamed loop of bowel resulting in a stricture and narrowing. This is adjacent tothe prior surgical site. Impression There is a mid small bowel obstruction secondary to a significantly circumferential inflamed loop of small bowel. This may relate to Crohndisease Automated exposure control was used as a dose optimization technique forthis examination. THIS IS AN ELECTRONICALLY VERIFIED REPORT 09/04/2015 8:59 AM: Danny Davis M.D. Danny Davis M.D. NC:nc 08:59 AM 08:59 AM [facility] [EOD] us Starr DELANEY IMG CT PROCEDURES Final Resul t * XR Abdomen Ap 1 Vw (09/04/2015 12:00 AM CDT) Anatomical Region Laterality Modality Body, Abdomen N/A Radiographic Annita ging 09/04/2015 Impressions 09/04/2015 10:41 AM CDT 1. NG tube in optimal position. 2. ??Unchanged obstructive bowel gas pattern. THIS IS AN ELECTRONICALLY VERIFIED REPORT 09/04/2015 10:38 AM: ??Ugo Duncan M.D. ?? Ugo Duncan M.D. ALTHEA:althea 10:38 AM 10:38 AM [facility] [EOD] Narrative 09/04/2015 10:41 AM CDT EXAMINATION: ??Single frontal view the supine abdomen. HISTORY: Nasogastric tube placement today. ??Abdominal pain, Crohn disease. TECHNIQUE: ??Single frontal view the abdomen, supine. Comparison CT from same day. FINDINGS: Nasogastric tube is seen overlying the stomach bubble no the antrum/pylorus.. there is a single loop of dilated small bowel in the abdomen correlated findings on CT.. No free air, although supine technique limits evaluation for free air. Procedure Note Provider, David, - 10/10/2020 EXAMINATION: Single frontal view the supine abdomen. HISTORY: Nasogastric tube placement today. Abdominal pain, Crohndisease. TECHNIQUE: Single frontal view the abdomen, supine. Comparison CT from same day. FINDINGS: Nasogastric tube is seen overlying the stomach bubble no the antrum/pylorus.. there is a single loop of dilated small bowel in theabdomen correlated findings on CT.. No free air, although supine technique limits evaluation for free air. IMPRESSION: 1. NG tube in optimal position. 2. Unchanged obstructive bowel gas pattern. THIS IS AN ELECTRONICALLY VERIFIED REPORT 09/04/2015 10:38 AM: Ugo Duncan M.D. Ugo Duncan M.D. ALTHEA:althea 10:38 AM 10:38 AM [facility] [EOD] Historical Provider IMAnder XR PROCEDURES Final R esult documented in this encounter Visit Diagnoses Diagnosis Crohn's disease of small intestine with intestinal obstruction (CMS/HCC) (HCC) Essential (primary) hypertension Unspecified essential hypertension Acquired absence of other specified parts of digestive tract Cigarette nicotine dependence, uncomplicated documented in this encounter
--- OUTSIDE RECORDS SUMMARY | 2024-06-06 03:29 | XMS_ITS | Encounter Summary ---
Author Organization [facility] Healthcare Address [address] [place] [address] Care Team Providers Care Crowd Controller Name Role Phone Unavailable Primary Care Provider Unavailabl e Encounter Details Date Type Department Care Team (Latest Contact Info) Description 05/03/2017 12:53 PM DOT COMPLIANCE MANAGER - 05/05/2017 11:39 AM DOT COMPLIANCE MANAGER Hospital Encounter [facility] Hemant Lopez MD [address] [place] [id number] Crohn's disease of small intestine with complication (CMS/HCC); Essential (primary) hypertension; Gastro-esophageal reflux disease without esophagitis; Other terminal supervisor (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 Social History Tobacco Use Types Packs/Day Years Used Date Smoking Tobacco: Never Assessed Sex and Gender Information Value Date Recorded Sex Assigned at Not on file Legal Sex Male 12:12 PM DOT COMPLIANCE MANAGER Gender Identity Not on file Sexual Orientation Not on file documented as of this encounter Last Filed Vital Signs Vital Sign Reading Time Taken Comments Blood Pressure 151/81 05/03/2017 3:23 PM DOT COMPLIANCE MANAGER Pulse 76 05/03/2017 3:23 PM DOT COMPLIANCE MANAGER Temperature 36.7 ??C (98 ??F) 05/03/2017 3:23 PM DOT COMPLIANCE MANAGER Respiratory Rate - - Oxygen Saturation 97% 05/03/2017 3:23 PM DOT COMPLIANCE MANAGER Inhaled Oxygen Concentration - - Weight 71.4 kg (157 lb 6.6 oz) 05/03/2017 3:23 P M DOT COMPLIANCE MANAGER Height 170.2 cm (5' 7 ) 05/03/2017 3:23 PM DOT COMPLIANCE MANAGER Body Mass Index 24.65 05/03/2017 3:23 PM DOT COMPLIANCE MANAGER documented in this encounter Plan of Treatment Not on file documented as of this encounter Procedures Procedure Name Priority Date/Time Associated Diagnosis Comments CBC WITH AUTO DIFFERENTIAL Routine 05/04/2017 7:30 AM DOT COMPLIANCE MANAGER BASIC METABOLIC PANEL Routine 05/04/2017 7:30 AM DOT COMPLIANCE MANAGER URINALYSIS Routine 05/03/2017 11:05 AM DOT COMPLIANCE MANAGER CBC WITH AUTO DIFFERENTIAL Routine 05/03/2017 10:16 AM DOT COMPLIANCE MANAGER LIPASE Routine 05/03/2017 10:16 AM DOT COMPLIANCE MANAGER COMPREHENSIVE METABOLIC PANEL Routine 05/03/2017 10:[address] ABDOMEN PELVIS W CONTRAST Routine 05/03/2017 12:00 AM DOT COMPLIANCE MANAGER documented in this encounter Results * (ABNORMAL) CBC with auto differential (05/04/2017 7:30 AM DOT COMPLIANCE MANAGER) WBC 7.3 4.6 - 10.2 x10 3/ul 05/04/2017 9:11 AM DOT COMPLIANCE MANAGER [employer] HISTORICAL RESULTS RBC 3.71(L) 4.11 - 5.71 x10 6/ul 05/04/2017 9:11 AM DOT COMPLIANCE MANAGER [employer] HISTORICAL RESULTS Hemoglobin 11.9(L) 13.0 - 17.0 g/dl 05/04/2017 9:11 AM DOT COMPLIANCE MANAGER [employer] HISTORICAL RESULTS Hct 34.7(L) 38.2 - 48.5 % 05/04/2017 9:11 AM DOT COMPLIANCE MANAGER [employer] HISTORICAL RESULTS MCV 93.5 80.0 - 97.0 fl 05/04/2017 9:11 AM DOT COMPLIANCE MANAGER [employer] HISTORICAL RESULTS MCH 32.1(H) 27.0 - 31.2 pg 05/04/2017 9:11 AM DOT COMPLIANCE MANAGER [employer] HISTORICAL RESULTS MCHC 34.3 31.8 - 35.4 g/dl 05/04/2017 9:11 AM DOT COMPLIANCE MANAGER [employer] HISTORICAL RESULTS RDW 13.6 11.6 - 14.8 % 05/04/2017 9:11 AM DOT COMPLIANCE MANAGER [facility] HISTORICAL RESULTS Plt Count 342 124 - 400 x10 3/ul 05/04/2017 9:[address] [facility] HISTORICAL RESULTS MPV 8.6 7.4 - 10.4 fl 05/04/2017 9:[address] [facility] HISTORICAL RESULTS Neut % 88.8(H) 37.0 - 85.0 % Immature Gran % 0.3 0.0 - 3.0 % 05/04/2017 9:11 AM [facility] HISTORICAL RESULTS Lymph % 9.0 5.0 - 45.0 % 05/04/2017 9:11 AM DOT COMPLIANCE MANAGER [facility] HISTORICAL RESULTS [place] % 1.9(L) 3.0 - 15.0 % 05/04/2017 9:11 AM [facility] HISTORICAL RESULTS Eos % 0.0 0.0 - 7.0 % 05/04/2017 9:11 AM [employer] [facility] HISTORICAL RESULTS Baso % 0.0 0.0 - 2.0 % 05/04/2017 9:11 AM [employer] [facility] HISTORICAL RESULTS Absolute Neuts (auto) 6.4 1.7 - 8.7 x10 3/ul 05/04/2017 9:11 AM [employer] [facility] HISTORICAL RESULTS Immature Gran # 0.0 0.0 - 0.3 x10 3/ul 05/04/2017 9:11 AM [employer] [facility] HISTORICAL RESULTS Absolute Lymphs (auto) 0.7 0.2 - 4.6 x10 3/ul 05/04/2017 9:11 AM [employer] [facility] HISTORICAL RESULTS Absolute Monos (auto) 0.1 0.1 - 1.5 x10 3/ul 05/04/2017 9:11 AM [employer] [facility] HISTORICAL RESULTS Absolute Eos (auto) 0.0 0.0 - 0.7 x10 3/ul 05/04/2017 9:11 AM [employer] [facility] HISTORICAL RESULTS Absolute Basos (auto) 0.0 0.0 - 0.2 x10 3/ul 05/04/2017 9:11 AM [employer] [facility] HISTORICAL RESULTS Nucleat RBC Rel Count 0.0 0 - 3 #/100WBC 05/04/2017 9:11 AM [employer] [facility] H[facility]ICAL RESULTS Absolute Nucleated RBC 0.00 x10 3/ul 05/04/2017 9:[address] [facility] HISTORICAL RESULTS Absolute Neutrophils 6400 200 - 8000 /ul 05/04/2017 9:[address] [facility] HISTORICAL RESULTS 05/04/2017 7:30 AM DOT COMPLIANCE MANAGER 05/04/2017 9:04 AM DOT COMPLIANCE MANAGER Hemant oLpez MD LAB BLOOD ORDERABLES Final Result [facility] HISTORICAL RESULTS * (ABNORMAL) Basic metabolic panel (05/04/2017 7:30 AM DOT COMPLIANCE MANAGER) Sodium 141 135 - 145 mmol/L 05/04/2017 9:[address] [facility] HISTORICAL RESULTS Potassium 4.0 3.3 - 5.1 mmol/L 05/04/2017 9:[address] [facility] HISTORICAL RESULTS Chloride 102 96 - 108 mmol/L 05/04/2017 9:[address] [facility] HISTORICAL RESULTS Carbon Dioxide 24 22 - 32 mmol/L 05/04/2017 9:[address] [facility] HISTORICAL RESULTS Anion Gap 15 7 - 16 05/04/2017 9:[address] [facility] HISTORICAL RESULTS Glucose 127(H) 70 - 100 mg/dL 05/04/2017 9:[address] [facility] HISTORICAL RESULTS BUN 7 6 - 20 mg/dL 05/04/2017 9:[address] [facility] HISTORICAL RESULTS Creatinine 0.8 0.5 - 1.3 mg/dL 05/04/2017 9:[address] [facility] HISTORICAL RESULTS Comment: NOTE: Estimated GFR (Cockroft-Gault) will NOT be calculated unless patient Height and Weight were entered. Also, Kidney Disease Stage (GFR) and Estimated GFR (Cockroft-Gault) will NOT be calculated if Creatinine result is <0.2. Kidney Disease Stage > 90 mL/MIN 05/04/2017 9:[address] [facility] HISTORICAL RESULTS Comment: NOTE; ??The GFR is [...] or on dialysis @ Est GFR (Cockcroft-G) 105 ml/MIN 05/04/2017 9:37 AM [facility] HISTOR[facility] RESULTS Comment: Estimated GFR(Cockroft-Gault)is used to calculate patient medication dosage Calcium 8.3(L) 8.6 - 10.0 mg/dL 05/04/2017 9:37 AM [facility] HISTORICAL RESULTS 05/04/2017 7:30 AM DOT COMPLIANCE MANAGER 05/04/2017 9:04 AM DOT COMPLIANCE MANAGER us Hemant Lopez MD LAB BLOOD ORDERABLES Final Result [facility] HISTORICAL RESULTS * Urinalysis (05/03/2017 11:05 AM DOT COMPLIANCE MANAGER) Ur Collection Type CLEAN CATCH 05/03/2017 11:10 AM DOT COMPLIANCE MANAGER [facility] HISTORICAL RESULTS Urine Color YELLOW YELLOW 05/03/2017 11:10 AM DOT COMPLIANCE MANAGER [facility] HISTORICAL RESULTS Urine Clarity CLEAR CLEAR 05/03/2017 11:10 AM DOT COMPLIANCE MANAGER [facility] HISTORICAL RESULTS Urine Glucose (UA) NORMAL NORMAL mg/dL 05/03/2017 11:10 AM DOT COMPLIANCE MANAGER [facility] HISTORICAL RESULTS Urine Bilirubin NEGATIVE NEGATIVE mg/dl 05/03/2017 11:10 AM DOT COMPLIANCE MANAGER [employer] HISTORICAL RESULTS Urine Ketones NEGATIVE NEGATIVE mg/dL 05/03/2017 11:[address] [facility] HISTORICAL RESULTS Ur Specific [place] 1.023 1.005 - 1.025 05/03/2017 11:[address] [facility] HISTORICAL RESULTS Urine Blood NEGATIVE NEGATIVE mg/dl 05/03/2017 11:[address] [facility] HISTORICAL RESULTS Urine pH 6.0 5.0 - 8.0 05/03/2017 11:[address] [facility] HISTORICAL RESULTS Urine Protein NEGATIVE NEGATIVE mg/dL 05/03/2017 11:[address] [facility] HISTORICAL RESULTS Urine Urobilinogen NORMAL NORMAL mg/dL 05/03/2017 11:[address] [facility] HISTORICAL RESULTS Urine Nitrite NEGATIVE NEGATIVE 05/03/2017 11:[address] [facility] HISTORICAL RESULTS Ur Leukocyte Esterase NEGATIVE NEGATIVE Natalio/ul 05/03/2017 11:[address] [facility] HISTORICAL RESULTS Ur Microscopic Review Not Indicated 05/03/2017 11:[address] [facility] HISTORICAL RESULTS 05/03/2017 11:0 5 AM DOT COMPLIANCE MANAGER 05/03/2017 11:06 AM DOT COMPLIANCE MANAGER Myron Rocha MD LAB URINE ORDERABLES Final Result [facility] HISTORICAL RESULTS * Lipase (05/03/2017 10:16 AM DOT COMPLIANCE MANAGER) Pathologist [facility] Lipase 40 13 - 60 U/L 05/03/2017 10:[address] [facility] HISTORICAL RESULTS 05/03/2017 10:1 6 AM DOT COMPLIANCE MANAGER 05/03/2017 10:19 AM DOT COMPLIANCE MANAGER Myron Rocha MD LAB BLOOD ORDERABLES Final Result [facility] HISTORICAL RESULTS * (ABNORMAL) Comprehensive metabolic panel (05/03/2017 10:16 AM DOT COMPLIANCE MANAGER) Sodium 141 135 - 145 mmol/L 05/03/2017 10:[address] [facility] HISTORICAL RESULTS Potassium 3.7 3.3 - 5.1 mmol/L 05/03/2017 10:[address] [facility] HISTORICAL RESULTS Chloride 104 96 - 108 mmol/L 05/03/2017 10:45 AM [facility] HISTORICAL RESULTS Carbon Dioxide 25 22 - 32 mmol/L 05/03/2017 10:45 AM [employer] [facility] HISTORICAL RESULTS Anion Gap 12 7 - 16 05/03/2017 10:45 AM [employer] [facility] HISTORICAL RESULTS Glucose 99 70 - 100 mg/dL 05/03/2017 10:45 AM [employer] [facility] HISTORICAL RESULTS BUN 14 6 - 20 mg/dL 05/03/2017 10:45 AM [facility] Creatinine 0.8 0.5 - 1.3 mg/dL 05/03/2017 10:45 AM [employer] [facility] HISTORICAL RESULTS Comment: NOTE: Estimated GFR (Cockroft-Gault) will NOT be calculated unless patient Height and Weight were entered. Also, Kidney Disease Stage (GFR) and Estimated GFR (Cockroft-Gault) will NOT be calculated if Creatinine result is <0.2. Kidney Disease Stage > 90 mL/MIN 05/03/2017 10:45 AM [employer] [facility] HISTORICAL RESULTS Comment: NOTE; ??The GFR is [...] or on dialysis @ Est GFR (Cockcroft-G) 105 ml/MIN 05/03/2017 10:45 AM [employer] [facility] HISTORICAL RESULTS Comment: Estimated GFR(Cockroft-Gault)is used to calculate patient medication dosage Calcium 8.5(L) 8.6 - 10.0 mg/dL 05/03/2017 10:[address] [facility] HISTORICAL RESULTS Total Protein 6.9 6.4 - 8.3 g/dL 05/03/2017 10:[address] [facility] HISTORICAL RESULTS Albumin 3.9 3.5 - 5.2 g/dL 05/03/2017 10:[address] [facility] HISTORICAL RESULTS Globulin 3.0 2.3 - 3.5 gm/dL 05/03/2017 10:[address] [facility] HISTORICAL RESULTS Albumin/Globulin Ratio 1.3 1.1 - 1.8 05/03/2017 10:[address] [facility] HISTORICAL RESULTS Total Bilirubin < 0.2 0.0 - 1.2 mg/dL 05/03/2017 10:[address] [facility] HISTORICAL RESULTS AST 19 0 - 40 U/L 05/03/2017 10:[address] [facility] HISTORICAL RESULTS ALT 19 0 - 41 U/L 05/03/2017 10:[address] [facility] HISTORICAL RESULTS Alkaline Phosphatase 100 40 - 129 U/L 05/03/2017 10:[address] [facility] HISTORICAL RESULTS 05/03/2017 10:1 6 AM DOT COMPLIANCE MANAGER 05/03/2017 10:19 AM [facility] My[facility] MD LAB BLOOD ORDERABLES Final Result [facility] HISTORICAL RESULTS * (ABNORMAL) CBC with auto differential (05/03/2017 10:16 AM DOT COMPLIANCE MANAGER) WBC 6.4 4.6 - 10.2 x10 3/ul 05/03/2017 10:[address] [facility] HISTORICAL RESULTS RBC 3.60(L) 4.11 - 5.71 x10 6/ul 05/03/2017 10:[address] [facility] HISTORICAL RESULTS Hemoglobin 11.5(L) 13.0 - 17.0 g/dl 05/03/2017 10:[address] [facility] HISTORICAL RESULTS Hct 33.9(L) 38.2 - 48.5 % 05/03/2017 10:[address] [facility] HISTORICAL RESULTS MCV 94.2 80.0 - 97.0 fl 05/03/2017 10:22 AM [employer] [facility] [employer] HISTORICAL RESULTS MCH 31.9(H) 27.0 - 31.2 pg 05/03/2017 10:22 AM [employer] HISTORICAL RESULTS MCHC 33.9 31.8 - 35.4 g/dl 05/03/2017 10:22 AM [employer] [facility] [employer] HISTORICAL RESULTS RDW 13.8 11.6 - 14.8 % 05/03/2017 10:22 AM [employer] [facility] [employer] HISTORICAL RESULTS Plt Count 253 124 - 400 x10 3/ul 05/03/2017 10:22 AM [employer] [facility] [employer] HISTORICAL RESULTS MPV 7.9 7.4 - 10.4 fl 05/03/2017 10:22 AM [employer] HISTORICAL RESULTS Neut % 64.7 37.0 - 85.0 % 05/03/2017 10:22 AM [employer] HISTORICAL RESULTS Immature Gran % 0.3 0.0 - 3.0 % 05/03/2017 10:22 AM [employer] HISTORICAL RESULTS Lymph % 27.2 5.0 - 45.0 % 05/03/2017 10:22 AM [employer] HISTORICAL RESULTS [place] % 7.0 3.0 - 15.0 % 05/03/2017 10:22 AM [employer] HISTORICAL RESULTS Eos % 0.5 0.0 - 7.0 % 05/03/2017 10:22 AM [employer] [facility] [employer] HISTORICAL RESULTS Baso % 0.3 0.0 - 2.0 % 05/03/2017 10:22 AM [employer] HISTORICAL RESULTS Absolute Neuts (auto) 4.2 1.7 - 8.7 x10 3/ul 05/03/2017 10:22 AM [employer] HISTORICAL RESULTS Immature Gran # 0.0 0.0 - 0.3 x10 3/ul 05/03/2017 10:22 AM [employer] HISTORICAL RESULTS Absolute Lymphs (auto) 1.8 0.2 - 4.6 x10 3/ul 05/03/2017 10:22 AM [employer] HISTORICAL RESULTS Absolute Monos (auto) 0.5 0.1 - 1.5 x10 3/ul 05/03/2017 10:22 AM [employer] HISTORICAL RESULTS Absolute Eos (auto) 0.0 0.0 - 0.7 x10 3/ul Absolute Basos (auto) 0.0 0.0 - 0.2 x10 3/ul Nucleat RBC Rel Count 0.0 0 - 3 #/100WBC Absolute Nucleated RBC 0.00 x10 3/ul Absolute Neutrophils 4200 200 - 8000 /ul 05/03/2017 10:1 6 AM DOT COMPLIANCE MANAGER 05/03/2017 10:19 AM DOT COMPLIANCE MANAGER Myron Rocha MD LAB BLOOD ORDERABLES Final Result [facility] HISTORICAL RESULTS * CT Abdomen Pelvis W Contrast (05/03/2017 12:00 AM DOT COMPLIANCE MANAGER) Anatomical Region Laterality Modality Body N/A Computed Tomogra phy 05/03/2017 Impressions 05/03/2017 12:14 PM DOT COMPLIANCE MANAGER 1. Inflammatory bowel disease with active inflammation in the distal ileum. ?? Prior to the prior ileocolonic anastomosis. ??There is moderate dilatation of the small bowel just proximal to this region, likely representing partial functional obstruction. ??The overall appearance is not simply changed compared to the prior examination. ??There is no pneumatosis or free intraperitoneal air. Above findings discussed with Dr. Rocha by Dr. Zelaya at 12:10 p.m. on 05/03/2017. Automated exposure control was used as a dose optimization technique for this examination. THIS IS AN ELECTRONICALLY VERIFIED REPORT 05/03/2017 12:11 PM: ??Elian Zelaya M.D. ?? Elian Zelaya M.D. CN:viral 12:11 PM 12:11 PM YAQUELIN [EOD] Narrative 05/03/2017 12:14 PM DOT COMPLIANCE MANAGER EXAMINATION: CT abdomen/pelvis with intravenous contrast HISTORY: Crohn disease, now presenting for a lower quadrant abdominal pain, initial onset 5 days ago and worsening earlier today COMPARISON: CT abdomen/pelvis 04/01/2017 TECHNIQUE: Computed tomographic images of the abdomen and pelvis were obtained after the administration of 100 mL of Omnipaque 350 intravenous contrast via left antecubital fossa IV FINDINGS: Limited images of the lung bases do not demonstrate any focal consolidation or pleural effusion. There are punctate calcifications in the spleen, consistent with prior granulomatous disease. ??The liver, gallbladder, pancreas, kidneys, adrenal glands are normal. ??The bladder is decompressed but appears normal. ??The prostate is normal in size. The abdominal aorta is normal. There are postsurgical changes of prior partial small bowel obstruction as well as appendectomy. ??There is bowel wall thickening with adjacent inflammatory stranding near the ileocolic of stenosis in the right lower quadrant of the abdomen. ??There is moderate dilatation of the small bowel just proximal to this, likely representing a partial functional obstruction. ??The colon is normal. ??The overall appearance is similar compared to the prior examination. There are scattered mildly prominent lymph nodes in this region, likely reactive in nature. ??There is no abdominal or pelvic free fluid. ??There is no pneumatosis or free intraperitoneal air. Bone windows do not demonstrate any abnormal osseous lytic or blastic lesions. Procedure Note Provider, MD David - 10/10/2020 EXAMINATION: CT abdomen/pelvis with intravenous contrast HISTORY: Crohn disease, now presenting for a lower quadrant abdominalpain, initial onset 5 days ago and worsening earlier today COMPARISON: CT abdomen/pelvis 04/01/2017 TECHNIQUE: Computed tomographic images of the abdomen and pelvis wereobtained after the administration of 100 mL of Omnipaque 350 intravenous contrastvia left antecubital fossa IV FINDINGS: Limited images of the lung bases do not demonstrate any focalconsolidation or pleural effusion. There are punctate calcifications in the spleen, consistent with prior granulomatous disease. The liver, gallbladder, pancreas, kidneys, adrenal glands are normal. The bladder is decompressed but appears normal. The prostate is normal in size. The abdominal aorta is normal. There are postsurgical changes of prior partial small bowel obstruction as well as appendectomy. There is bowel wall thickening with adjacent inflammatory stranding near the ileocolic of stenosis in the right lower quadrant of the abdomen. There is moderate dilatation of the small boweljust proximal to this, likely representing a partial functional obstruction.The colon is normal. The overall appearance is similar compared to the prior examination. There are scattered mildly prominent lymph nodes in thisregion, likely reactive in nature. There is no abdominal or pelvic free fluid.There is no pneumatosis or free intraperitoneal air. Bone windows do not demonstrate any abnormal osseous lytic or blasticlesions. IMPRESSION: 1. Inflammatory bowel disease with active inflammation in the distalileum. Prior to the prior ileocolonic anastomosis. There is moderate dilatationof the small bowel just proximal to this region, likely representing partial functional obstruction. The overall appearance is not simply changedcompared to the prior examination. There is no pneumatosis or free intraperitonealair. Above findings discussed with Dr. Rocha by Dr. Zelaya at 12:10 p.m. on 05/03/2017. Automated exposure control was used as a dose optimization technique forthis examination. THIS IS AN ELECTRONICALLY VERIFIED REPORT 05/03/2017 12:11 PM: Elian Zelaya M.D. Elian Zelaya M.D. CN:viral 12:11 PM 12:11 PM YAQUELIN [EOD] Myron Rocha MD IMG CT PROCEDURES Final Re sult documented in this encounter Visit Diagnoses Diagnosis Crohn's disease of small intestine with complication (HCC) Essential (primary) hypertension Unspecified essential hypertension Gastro-esophageal reflux disease without esophagitis Other terminal supervisor (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 documented in this encounter
--- OUTSIDE RECORDS SUMMARY | 2024-06-06 03:29 | XMS_ITS | Encounter Summary ---
Author Organization [facility] Healthcare Address [address] [place] [address] Care Team Providers Care Consulting Sales Manager Name Role Phone Unavailable Primary Care Provider Unavailabl e Encounter Details Date Type Department Care Team (Latest Contact Info) Description 07/14/2016 6:41 PM REPEAT PHOTOCOMPOSING MACHINE OPERATOR - 07/16/2016 11:10 AM REPEAT PHOTOCOMPOSING MACHINE OPERATOR Hospital Encounter [facility] Hemant Lopez MD [address] [place] [id number] Crohn's disease with complication (CMS/HCC); Essential (primary) hypertension; Gastro-esophageal reflux disease without esophagitis; Nicotine dependence, uncomplicated; Allergy status to narcotic agent; Other assisted (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; Tobacco abuse counseling Social History Tobacco Use Types Packs/Day Years Used Date Smoking Tobacco: Never Assessed Sex and Gender Information Value Date Recorded Sex Assigned at Not on file Legal Sex Male 12:12 PM REPEAT PHOTOCOMPOSING MACHINE OPERATOR Gender Identity Not on file Sexual Orientation Not on file documented as of this encounter Last Filed Vital Signs Vital Sign Reading Time Taken Comments Blood Pressure 173/80 07/15/2016 6:18 PM REPEAT PHOTOCOMPOSING MACHINE OPERATOR Pulse 47 07/15/2016 6:18 PM REPEAT PHOTOCOMPOSING MACHINE OPERATOR Temperature 36.8 ??C (98.2 ??F) 07/15/2016 6:18 PM CS T Respiratory Rate - - Oxygen Saturation 96% 07/15/2016 6:18 PM REPEAT PHOTOCOMPOSING MACHINE OPERATOR Inhaled Oxygen Concentration - - Weight 69.7 kg (153 lb 9 oz) 07/15/2016 6:18 PM REPEAT PHOTOCOMPOSING MACHINE OPERATOR Height 167.6 cm (5' 6 ) 07/15/2016 6:18 PM REPEAT PHOTOCOMPOSING MACHINE OPERATOR Body Mass Index 24.79 07/15/2016 6:18 PM REPEAT PHOTOCOMPOSING MACHINE OPERATOR documented in this encounter Plan of Treatment Not on file documented as of this encounter Procedures Procedure Name Priority Date/Time Associated Diagnosis Comments CBC WITH AUTO DIFFERENTIAL Routine 07/16/2016 9:55 AM REPEAT PHOTOCOMPOSING MACHINE OPERATOR BASIC METABOLIC PANEL Routine 07/16/2016 9:55 AM REPEAT PHOTOCOMPOSING MACHINE OPERATOR HEMOGRAM WITH MANUAL DIFFERENTIAL Routine 07/15/2016 10:25 AM REPEAT PHOTOCOMPOSING MACHINE OPERATOR BASIC METABOLIC PANEL Routine 07/15/2016 10:25 AM REPEAT PHOTOCOMPOSING MACHINE OPERATOR CBC WITH AUTO DIFFERENTIAL Routine 07/14/2016 4:05 PM REPEAT PHOTOCOMPOSING MACHINE OPERATOR LIPASE Routine 07/14/2016 4:05 PM REPEAT PHOTOCOMPOSING MACHINE OPERATOR COMPREHENSIVE METABOLIC PANEL Routine 07/14/2016 4:05 PM REPEAT PHOTOCOMPOSING MACHINE OPERATOR URINALYSIS, MACRO AND MICRO Routine 07/14/2016 3:48 PM REPEAT PHOTOCOMPOSING MACHINE OPERATOR CT ABDOMEN PELVIS W CONTRAST Routine 07/14/2016 12:00 AM REPEAT PHOTOCOMPOSING MACHINE OPERATOR documented in this encounter Results * (ABNORMAL) CBC with auto differential (07/16/2016 9:55 AM REPEAT PHOTOCOMPOSING MACHINE OPERATOR) WBC 7.8 4.6 - 10.2 x10 3/ul 07/16/2016 10:53 AM [facility] HISTORICAL RESULTS Comment:Results Reviewed RBC 3.32(L) 4.11 - 5.71 x10 6/ul 07/16/2016 10:46 AM [facility] HISTORICAL RESULTS Hemoglobin 10.7(L) 13.0 - 17.0 g/dl 07/16/2016 10:46 AM [facility] HISTORICAL RESULTS Hct 31.8(L) 38.2 - 48.5 % 07/16/2016 10:46 AM [facility] HISTORICAL RESULTS MCV 95.8 80.0 - 97.0 fl 07/16/2016 10:46 AM [facility] HISTORICAL RESULTS MCH 32.2(H) 27.0 - 31.2 pg 07/16/2016 10:46 AM [facility] HISTORICAL RESULTS MCHC 33.6 31.8 - 35.4 g/dl 07/16/2016 10:46 AM [facility] HISTORICAL RESULTS RDW 14.0 11.6 - 14.8 % 07/16/2016 10:46 AM [facility] HISTORICAL RESULTS Plt Count 217 124 - 400 x10 3/ul 07/16/2016 10:46 AM [facility] HISTORICAL RESULTS MPV 8.6 7.4 - 10.4 fl 07/16/2016 10:46 AM [facility] HISTORICAL RESULTS Neut % 67.9 37.0 - 85.0 % 07/16/2016 10:46 AM [facility] HISTORICAL RESULTS Immature Gran % 0.4 0.0 - 3.0 % 07/16/2016 10:46 AM [facility] HISTORICAL RESULTS Lymph % 23.4 5.0 - 45.0 % 07/16/2016 10:46 AM [facility] HISTORICAL RESULTS Sioux % 8.3 3.0 - 15.0 % 07/16/2016 10:46 AM [facility] HISTORICAL RESULTS Eos % 0.0 0.0 - 7.0 % 07/16/2016 10:46 AM [facility] HISTORICAL RESULTS Baso % 0.0 0.0 - 2.0 % 07/16/2016 10:46 AM [facility] HISTORICAL RESULTS Absolute Neuts (auto) 5.3 1.7 - 8.7 x10 3/ul 07/16/2016 10:46 AM [facility] HISTORICAL RESULTS Immature Gran # 0.0 0.0 - 0.3 x10 3/ul 07/16/2016 10:46 AM [facility] HISTORICAL RESULTS Absolute Lymphs (auto) 1.8 0.2 - 4.6 x10 3/ul 07/16/2016 10:46 AM [facility] HISTORICAL RESULTS Absolute Monos (auto) 0.7 0.1 - 1.5 x10 3/ul 07/16/2016 10:46 AM [facility] HISTORICAL RESULTS Absolute Eos (auto) 0.0 0.0 - 0.7 x10 3/ul 07/16/2016 10:46 AM [facility] HISTORICAL RESULTS Absolute Basos (auto) 0.0 0.0 - 0.2 x10 3/ul 07/16/2016 10:46 AM [facility] HISTORICAL RESULTS 07/16/2016 9:55 AM REPEAT PHOTOCOMPOSING MACHINE OPERATOR 07/16/2016 10:37 AM [facility] Deanne Ramos MD LAB BLOOD ORDERABLES F inal Result [facility] HISTORICAL RESULTS * (ABNORMAL) Basic metabolic panel (07/16/2016 9:55 AM [facility]) Sodium 141 135 - 145 mmol/L 07/16/2016 11:01 AM [facility] HISTORICAL RESULTS Potassium 3.7 3.3 - 5.1 mmol/L 07/16/2016 11:01 AM [facility] HISTORICAL RESULTS Chloride 106 96 - 108 mmol/L Carbon Dioxide 24 22 - 32 mmol/L 07/16/2016 11:01 AM [facility] Anion Gap 11 7 - 16 07/16/2016 11:01 AM [facility] RES[facility] Glucose 163(H) 70 - 100 mg/dL 07/16/2016 11:01 AM [facility]IST[facility] RESULTS BUN 12 6 - 20 mg/dL 07/16/2016 11:01 AM [facility] Creatinine 1.1 0.5 - 1.3 mg/dL 07/16/2016 11:01 AM [facility] H[facility] RESULTS Comment: NOTE: Estimated GFR (Cockroft-Gault) will NOT be calculated unless patient Height and Weight were entered. Also, Kidney Disease Stage (GFR) and Estimated GFR (Cockroft-Gault) will NOT be calculated if Creatinine result is <0.2. Kidney Disease Stage > 90 mL/MIN 07/16/2016 11:01 AM [facility] HISTORICAL RESULTS Comment: NOTE; ??The GFR is [...] or on dialysis @ Est GFR (Cockcroft-G) 75 ml/MIN 07/16/2016 11:01 AM [facility] HISTORICAL RESULTS Comment: Estimated GFR(Cockroft-Gault)is used to calculate patient medication dosage Calcium 8.3(L) 8.6 - 10.0 mg/dL 07/16/2016 11:01 AM [facility] HISTORICAL RESULTS 07/16/2016 9:55 AM REPEAT PHOTOCOMPOSING MACHINE OPERATOR 07/16/2016 10:37 AM REPEAT PHOTOCOMPOSING MACHINE OPERATOR Deanne Ramos MD LAB BLOOD ORDERABLES F inal Result [facility] HISTORICAL RESULTS * (ABNORMAL) Hemogram with manual differential (07/15/2016 10:25 AM REPEAT PHOTOCOMPOSING MACHINE OPERATOR) WBC 4.8 4.6 - 10.2 x10 3/ul 07/15/2016 11:27 AM [facility] HISTORICAL RESULTS Comment:Results reviewed RBC 3.67(L) 4.11 - 5.71 x10 6/ul 07/15/2016 11:25 AM [facility] HISTORICAL RESULTS Hemoglobin 12.0(L) 13.0 - 17.0 g/dl 07/15/2016 11:25 AM [facility] HISTORICAL RESULTS Hct 34.2(L) 38.2 - 48.5 % 07/15/2016 11:25 AM [facility] HISTORICAL RESULTS MCV 93.2 80.0 - 97.0 fl 07/15/2016 11:25 AM [facility] HISTORICAL RESULTS MCH 32.7(H) 27.0 - 31.2 pg 07/15/2016 11:25 AM [facility] HISTORICAL RESULTS MCHC 35.1 31.8 - 35.4 g/dl 07/15/2016 11:25 AM [facility] HISTORICAL RESULTS RDW 13.8 11.6 - 14.8 % 07/15/2016 11:25 AM [facility] HISTORICAL RESULTS Plt Count 217 124 - 400 x10 3/ul 07/15/2016 11:25 AM [facility] HISTORICAL RESULTS MPV 8.0 7.4 - 10.4 fl 07/15/2016 11:25 AM [facility] HISTORICAL RESULTS Neut % 78.3 37.0 - 85.0 % 07/15/2016 11:27 AM [facility] HISTORICAL RESULTS Comment:Results reviewed Immature Gran % 0.2 0.0 - 3.0 % 07/15/2016 11:25 AM [facility] HISTORICAL RESULTS Lymph % 17.9 5.0 - 45.0 % 07/15/2016 11:25 AM [facility] HISTORICAL RESULTS Sioux % 3.6 3.0 - 15.0 % 07/15/2016 11:25 AM [facility] HISTORICAL RESULTS Eos % 0.0 0.0 - 7.0 % 07/15/2016 11:25 AM [facility] HISTORICAL RESULTS Baso % 0.0 0.0 - 2.0 % 07/15/2016 11:25 AM [facility] HISTORICAL RESULTS Absolute Neuts (auto) 3.7 1.7 - 8.7 x10 3/ul 07/15/2016 11:25 AM [facility] HISTORICAL RESULTS Immature Gran # 0.0 0.0 - 0.3 x10 3/ul 07/15/2016 11:25 AM [facility] HISTORICAL RESULTS Absolute Lymphs (auto) 0.9 0.2 - 4.6 x10 3/ul 07/15/2016 11:25 AM [facility] HISTORICAL RESULTS Absolute Monos (auto) 0.2 0.1 - 1.5 x10 3/ul Absolute Eos (auto) 0.0 0.0 - 0.7 x10 3/ul Absolute Basos (auto) 0.0 0.0 - 0.2 x10 3/ul Platelet Evaluation AGREE AGREE Comment:Slide review of plat elets correlates with instrument count. Polychromasia 1+ Poikilocytosis 2+ Ovalocytes 2+ 07/15/2016 10:2 5 AM REPEAT PHOTOCOMPOSING MACHINE OPERATOR 07/15/2016 11:05 AM [facility] Hemant Lopez MD LAB BLOOD ORDERABLES Final Result [facility] HISTORICAL RESULTS * (ABNORMAL) Basic metabolic panel (07/15/2016 10:25 AM REPEAT PHOTOCOMPOSING MACHINE OPERATOR) Sodium 138 135 - 145 mmol/L Potassium 4.2 3.3 - 5.1 mmol/L Chloride 104 96 - 108 mmol/L Carbon Dioxide 22 22 - 32 mmol/L Anion Gap 12 7 - 16 Glucose 119(H) 70 - 100 mg/dL BUN 7 6 - 20 mg/dL Creatinine 1.0 0.5 [...] dialysis @ Est GFR (Cockcroft-G) 83 ml/MIN 07/15/2016 11:41 AM [facility] H[facility] RESULTS Comment: Estimated GFR(Cockroft-Gault)is used to calculate patient medication dosage Calcium 8.4(L) 8.6 - 10.0 mg/dL 07/15/2016 11:41 AM [facility] [employer] [facility] HISTORICAL RESULTS 07/15/2016 10:2 5 AM REPEAT PHOTOCOMPOSING MACHINE OPERATOR 07/15/2016 11:05 AM REPEAT PHOTOCOMPOSING MACHINE OPERATOR us Hemant Lopez MD LAB BLOOD ORDERABLES Final Result [facility] HISTORICAL RESULTS * Lipase (07/14/2016 4:05 PM REPEAT PHOTOCOMPOSING MACHINE OPERATOR) Lipase 29 13 - 60 U/L 07/14/2016 4:05 PM REPEAT PHOTOCOMPOSING MACHINE OPERATOR 07/14/2016 4:08 PM REPEAT PHOTOCOMPOSING MACHINE OPERATOR Kelly Carranza PATIENT ACCESS SPECIALIST LAB BLOOD ORDERABLES Final Result [facility] HISTORICAL RESULTS * Comprehensive metabolic panel (07/14/2016 4:05 PM REPEAT PHOTOCOMPOSING MACHINE OPERATOR) Pathologist [facility] Sodium 143 135 - 145 mmol/L Potassium 4.0 3.3 - 5.1 mmol/L Chloride 107 96 - 108 mmol/L Carbon Dioxide 22 22 - 32 mmol/L Anion Gap 14 7 - 16 Glucose 91 70 - 100 mg/dL BUN 13 6 - 20 mg/dL Creatinine 1.1 0.5 [...] or on dialysis @ Est GFR (Cockcroft-G) 76 ml/MIN 07/14/2016 4:45 PM [facility] HISTORICAL RESULTS Comment: Estimated GFR(Cockroft-Gault)is used to calculate patient medication dosage Calcium 8.7 8.6 - 10.0 mg/dL 07/14/2016 4:45 PM REPEAT PHOTOCOMPOSING MACHINE OPERATOR [facility] HISTORICAL RESULTS Total Protein 6.8 6.4 - 8.3 g/dL 07/14/2016 4:45 PM REPEAT PHOTOCOMPOSING MACHINE OPERATOR [facility] HISTORICAL RESULTS Albumin 4.2 3.5 - 5.2 g/dL 07/14/2016 4:45 PM [facility] HISTORICAL RESULTS Globulin 2.6 2.3 - 3.5 gm/dL 07/14/2016 4:45 PM REPEAT PHOTOCOMPOSING MACHINE OPERATOR [facility] HISTOR[facility] RESULTS Albumin/Globulin Ratio 1.6 1.1 - 1.8 07/14/2016 4:45 PM [facility] HISTORICAL RESULTS Total Bilirubin 0.2 0.0 - 1.2 mg/dL 07/14/2016 4:45 PM [facility] HISTORICAL RESULTS AST 21 0 - 40 U/L 07/14/2016 4:45 PM REPEAT PHOTOCOMPOSING MACHINE OPERATOR [facility] HISTORICAL RESULTS ALT 18 0 - 41 U/L 07/14/2016 4:45 PM REPEAT PHOTOCOMPOSING MACHINE OPERATOR [facility] HISTORICAL RESULTS Alkaline Phosphatase 76 40 - 129 U/L 07/14/2016 4:45 PM [facility] HISTORICAL RESULTS 07/14/2016 4:05 PM REPEAT PHOTOCOMPOSING MACHINE OPERATOR 07/14/2016 4:08 PM REPEAT PHOTOCOMPOSING MACHINE OPERATOR Kelly Carranza PATIENT ACCESS SPECIALIST LAB BLOOD ORDERABLES Final Result [facility] * (ABNORMAL) CBC with auto differential (07/14/2016 4:05 PM REPEAT PHOTOCOMPOSING MACHINE OPERATOR) WBC 7.1 4.6 - 10.2 x10 3/ul 07/14/2016 4:11 PM REPEAT PHOTOCOMPOSING MACHINE OPERATOR [facility] HISTORICAL RESULTS RBC 3.81(L) 4.11 - 5.71 x10 6/ul 07/14/2016 4:11 PM REPEAT PHOTOCOMPOSING MACHINE OPERATOR [facility] HISTORICAL RESULTS Hemoglobin 12.2(L) 13.0 - 17.0 g/dl 07/14/2016 4:11 PM REPEAT PHOTOCOMPOSING MACHINE OPERATOR [facility] HISTORICAL RESULTS Hct 35.9(L) 38.2 - 48.5 % 07/14/2016 4:11 PM REPEAT PHOTOCOMPOSING MACHINE OPERATOR [facility] HISTORICAL RESULTS MCV 94.2 80.0 - 97.0 fl 07/14/2016 4:11 PM REPEAT PHOTOCOMPOSING MACHINE OPERATOR [facility] HISTOR[facility] RESULTS MCH 32.0(H) 27.0 - 31.2 pg 07/14/2016 4:11 PM REPEAT PHOTOCOMPOSING MACHINE OPERATOR [facility] HISTORICAL RESULTS MCHC 34.0 31.8 - 35.4 g/dl 07/14/2016 4:11 PM REPEAT PHOTOCOMPOSING MACHINE OPERATOR [facility] HISTORICAL RESULTS RDW 13.9 11.6 - 14.8 % 07/14/2016 4:11 PM REPEAT PHOTOCOMPOSING MACHINE OPERATOR [facility] HISTORICAL RESULTS Plt Count 206 124 - 400 x10 3/ul 07/14/2016 4:11 PM REPEAT PHOTOCOMPOSING MACHINE OPERATOR [facility] HIST[facility] RESULTS MPV 7.8 7.4 - 10.4 fl 07/14/2016 4:11 PM REPEAT PHOTOCOMPOSING MACHINE OPERATOR [facility] HISTORICAL RESULTS Neut % 55.9 37.0 - 85.0 % 07/14/2016 4:11 PM REPEAT PHOTOCOMPOSING MACHINE OPERATOR [facility] HISTORICAL RESULTS Immature Gran % 0.1 0.0 - 3.0 % 07/14/2016 4:11 PM REPEAT PHOTOCOMPOSING MACHINE OPERATOR [facility] HISTORICAL RESULTS Lymph % 35.1 5.0 - 45.0 % 07/14/2016 4:11 PM REPEAT PHOTOCOMPOSING MACHINE OPERATOR [facility] HISTORICAL RESULTS Sioux % 8.5 3.0 - 15.0 % 07/14/2016 4:11 PM REPEAT PHOTOCOMPOSING MACHINE OPERATOR [facility] HISTORICAL RESULTS Eos % 0.3 0.0 - 7.0 % Baso % 0.1 0.0 - 2.0 % Absolute Neuts (auto) 4.0 1.7 - 8.7 x10 3/ul Immature Gran # 0.0 0.0 - 0.3 x10 3/ul Absolute Lymphs (auto) 2.5 0.2 - 4.6 x10 3/ul Absolute Monos (auto) 0.6 0.1 - 1.5 x10 3/ul Absolute Eos (auto) 0.0 0.0 - 0.7 x10 3/ul Absolute Basos (auto) 0.0 0.0 - 0.2 x10 3/ul 07/14/2016 4:05 PM [facility] 07/14/2016 4:08 PM [facility] Kelly Carranza PATIENT ACCESS SPECIALIST LAB BLOOD ORDERABLES Final Result [facility] HISTORICAL RESULTS * (ABNORMAL) Urinalysis, macro and micro (07/14/2016 3:48 PM REPEAT PHOTOCOMPOSING MACHINE OPERATOR) Ur Collection Type CLEAN CATCH Urine Color YELLOW YELLOW Urine Clarity CLEAR CLEAR Urine Glucose (UA) NORMAL NORMAL mg/dL Urine Bilirubin NEGATIVE NEGATIVE mg/dl Urine Ketones NEGATIVE NEGATIVE mg/dL Ur Specific [place] 1.028(H) 1.005 - 1.025 Urine Blood NEGATIVE NEGATIVE mg/dl Urine pH 5.0 5.0 - 8.0 Urine Protein NEGATIVE NEGATIVE mg/dL Urine Urobilinogen NORMAL NORMAL mg/dL Urine Nitrite NEGATIVE NEGATIVE Ur Leukocyte Esterase NEGATIVE NEGATIVE Natalio/ul Ur Microscopic Review Indicated or Ordered Urine RBC 6 0 - 2 /HPF Urine WBC <1 0 - 2 /HPF Urine Mucus RARE /LPF Ur Squamous Epith Cells Rare /HPF 07/14/2016 3:48 PM REPEAT PHOTOCOMPOSING MACHINE OPERATOR 07/14/2016 4:00 PM REPEAT PHOTOCOMPOSING MACHINE OPERATOR Kelly Carranza NP LAB URINE ORDERABLES Final Result [facility] HISTORICAL RESULTS * CT Abdomen Pelvis W Contrast (07/14/2016 12:00 AM REPEAT PHOTOCOMPOSING MACHINE OPERATOR) Anatomical Region Laterality Modality Body N/A Computed Tomogra phy 07/14/2016 Impressions 07/14/2016 5:46 PM REPEAT PHOTOCOMPOSING MACHINE OPERATOR ??1. ??Redemonstration of wall thickening and inflammation of the salome terminal ileum just prior to the ileocolonic anastomosis, likely an acute exacerbation of known Crohn disease. No evidence of bowel obstruction or other complication. 2. Similar appearance of the stomach with mild mucosal hyperenhancement and wall thickening of the distal stomach may also have a mild degree of inflammation from known inflammatory bowel disease pillAutomated exposure control was used as a dose optimization technique for this examination. THIS IS AN ELECTRONICALLY VERIFIED REPORT 07/14/2016 5:43 PM: ??Barry Adrian M.D. ?? Barry Adrian M.D. CH: 05:43 PM 05:43 PM BM [EOD] Narrative 07/14/2016 5:46 PM REPEAT PHOTOCOMPOSING MACHINE OPERATOR EXAMINATION: ??CT abdomen and pelvis with contrast. HISTORY: ??Right lower quadrant abdominal pain, nausea, vomiting and diarrhea last night, known Crohn disease, previous colon resection and ileostomy. ?? Symptoms for 2 days. TECHNIQUE: ??Following the intravenous administration of 100 mL Omnipaque 350 intravenous contrast via the right antecubital vein, post contrast images were obtained through the abdomen and pelvis. COMPARISON: 01/11/2016. 04/13/2005. FINDINGS: ??Lung bases are clear. ??No pleural effusion. Abdomen: ??Liver, gallbladder, spleen, pancreas, and both adrenal glands are normal. ??No renal calculi or hydronephrosis is identified. ??The abdominal aorta is nonaneurysmal. ??There is atherosclerotic calcification along the SMA without thrombus or obvious flow-limiting stenosis. Postsurgical changes are again noted from resection of the distal ileum with ileocolonic anastomosis. ??Again seen is a similar pattern of wall thickening of the salome terminal ileum with inflammation and haziness in the associated mesentery, extending over a 6 - 8 cm segment. ??This does not appear to result in bowel obstruction. ?? There is mild mucosal hyperenhancement and wall thickening at the gastroduodenal junction along the pylorus. ??No other sites of involvement of the bowel. ??No pneumatosis or free air. ??No pathologic lymphadenopathy is seen. Pelvis: ??Urinary bladder is unremarkable. ??No abnormal free fluid A right femoral intramedullary rani with interlocking screw is again noted. Procedure Note Provider, MD Rob Hernandez 10/10/2020 EXAMINATION: CT abdomen and pelvis with contrast. HISTORY: Right lower quadrant abdominal pain, nausea, vomiting anddiarrhea last night, known Crohn disease, previous colon resection and ileostomy. Symptoms for 2 days. TECHNIQUE: Following the intravenous administration of 100 mL [id number] intravenous contrast via the right antecubital vein, post contrast imageswere obtained through the abdomen and pelvis. COMPARISON: 01/11/2016. 04/13/2005. FINDINGS: Lung bases are clear. No pleural effusion. Abdomen: Liver, gallbladder, spleen, pancreas, and both adrenal glandsare normal. No renal calculi or hydronephrosis is identified. The abdominal aorta is nonaneurysmal. There is atherosclerotic calcification along theSMA without thrombus or obvious flow-limiting stenosis. Postsurgical changes are again noted from resection of the distal ileumwith ileocolonic anastomosis. Again seen is a similar pattern of wallthickening of the salome terminal ileum with inflammation and haziness in the associated mesentery, extending over a 6 - 8 cm segment. This does not appear toresult in bowel obstruction. There is mild mucosal hyperenhancement and wall thickening at the gastroduodenal junction along the pylorus. No other sites of involvementof the bowel. No pneumatosis or free air. No pathologic lymphadenopathy isseen. Pelvis: Urinary bladder is unremarkable. No abnormal free fluid A right femoral intramedullary rani with interlocking screw is againnoted. IMPRESSION: 1. Redemonstration of wall thickening and inflammation ofthe salome terminal ileum just prior to the ileocolonic anastomosis, likely anacute exacerbation of known Crohn disease. No evidence of bowel obstruction orother complication. 2. Similar appearance of the stomach with mild mucosal hyperenhancementand wall thickening of the distal stomach may also have a mild degree of inflammation from known inflammatory bowel disease pillAutomated exposure control was used as a dose optimization technique for this examination. THIS IS AN ELECTRONICALLY VERIFIED REPORT 07/14/2016 5:43 PM: Barry Adrian M.D. Barry Adrian M.D. CH:charley 05:43 PM 05:43 PM [facility] [EOD] Kelly Carranza NP IMG CT PROCEDURES Final Res ult documented in this encounter Visit Diagnoses Diagnosis Crohn's disease with complication (HCC) Essential (primary) hypertension Unspecified essential hypertension Gastro-esophageal reflux disease without esophagitis Nicotine dependence, uncomplicated Allergy status to narcotic agent Other assisted (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 Tobacco abuse counseling documented in this encounter
--- OUTSIDE RECORDS SUMMARY | 2024-06-06 03:29 | XMS_ITS | Encounter Summary ---
Author Organization [facility] Healthcare Address [address] [place] [address] Care Team Providers Care Supervisor Park Workers Name Role Phone Unavailable Primary Care Provider Unavailabl e Encounter Details Date Type Department Care Team (Latest Contact Info) Description 01/13/2017 12:57 PM CDT - 01/14/2017 12:20 PM CDT Hospital Encounter [facility] Hemant Lopez MD [address] [place] [id number] Crohn's disease of small intestine with intestinal obstruction (CMS/HCC); Essential (primary) hypertension; Gastro-esophageal reflux disease without esophagitis; Crohn's disease without complication (CMS/HCC); Nicotine dependence, uncomplicated; Underdosing of antirheumatic, not elsewhere classified; Patient's intentional underdosing of medication regimen for other reason; Other manager intermediate (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; Personal history of urinary calculi; History of intestinal bypass; Allergy status to narcotic agent Social History Tobacco Use Types Packs/Day Years Used Date Smoking Tobacco: Never Assessed Sex and Gender Information Value Date Recorded Sex Assigned at Not on file Legal 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 Gender Identity Not on file Sexual Orientation Not on file documented as of this encounter Last Filed Vital Signs Vital Sign Reading Time Taken Comments Blood Pressure 175/90 01/14/2017 8:00 AM CDT Pulse 77 01/14/2017 8:00 AM CDT Temperature 36.7 ??C (98.1 ??F) 01/14/2017 8:00 AM CD T Respiratory Rate - - Oxygen Saturation 100% 01/14/2017 8:00 AM CDT Inhaled Oxygen Concentration - - Weight 70.3 kg (155 lb) 01/14/2017 8:00 AM CDT Height 170.2 cm (5' 7 ) 01/14/2017 8:00 AM CDT Body Mass Index 24.28 01/14/2017 8:00 AM CDT documented in this encounter Plan of Treatment Not on file documented as of this encounter Procedures Procedure Name Priority Date/Time Associated Diagnosis Comments CBC WITH AUTO DIFFERENTIAL Routine 01/14/2017 6:37 AM CDT BASIC METABOLIC PANEL Routine 01/14/2017 6:37 AM CDT CBC WITH AUTO DIFFERENTIAL Routine 01/13/2017 9:12 AM CDT LIPASE Routine 01/13/2017 9:12 AM CDT COMPREHENSIVE METABOLIC PANEL Routine 01/13/2017 9:[address] ABDOMEN PELVIS W CONTRAST Routine 01/13/2017 12:00 AM CDT documented in this encounter Results * (ABNORMAL) CBC with auto differential (01/14/2017 6:37 AM CDT) WBC 8.8 4.6 - 10.2 x10 3/ul 01/14/2017 6:51 AM CDT [facility] HISTORICAL RESULTS RBC 3.54(L) 4.11 - 5.71 x10 6/ul 01/14/2017 6:51 AM CDT [facility] HISTORICAL RESULTS Hemoglobin 11.6(L) 13.0 - 17.0 g/dl 01/14/2017 6:51 AM CDT [facility] HISTORICAL RESULTS Hct 34.1(L) 38.2 - 48.5 % 01/14/2017 6:51 AM CDT [facility] HISTORICAL RESULTS MCV 96.3 80.0 - 97.0 fl 01/14/2017 6:51 AM CDT [facility] [employer] HISTORICAL RESULTS MCH 32.8(H) 27.0 - 31.2 pg MCHC 34.0 31.8 - 35.4 g/dl RDW 14.3 11.6 - 14.8 % Plt Count 254 124 - 400 x10 3/ul MPV 8.3 7.4 - 10.4 fl Neut % 75.2 37.0 - 85.0 % Immature Gran % 0.2 0.0 - 3.0 % Lymph % 17.3 5.0 - 45.0 % Ida % 7.1 3.0 - 15.0 % Eos % 0.1 0.0 - 7.0 % Baso % 0.1 0.0 - 2.0 % Absolute Neuts (auto) 6.6 1.7 - 8.7 x10 3/ul Immature Gran # 0.0 0.0 - 0.3 x10 3/ul Absolute Lymphs (auto) 1.5 0.2 - 4.6 x10 3/ul Absolute Monos (auto) 0.6 0.1 - 1.5 x10 3/ul Absolute Eos (auto) 0.0 0.0 - 0.7 x10 3/ul Absolute Basos (auto) 0.0 0.0 - 0.2 x10 3/ul 01/14/2017 6:51 AM T [facility] HISTORICAL RESULTS Nucleat RBC Rel Count 0.0 0 - 3 #/100WBC 01/14/2017 6:51 AM T [facility] HISTORICAL RESULTS Absolute Nucleated RBC 0.00 x10 3/ul 01/14/2017 6:51 AM T [facility] HISTORICAL RESULTS Absolute Neutrophils 6600 200 - 8000 /ul 01/14/2017 6:37 AM CDT 01/14/2017 6:41 AM CDT us Franklyn Gamez DO LAB BLOOD ORDERABLES Final Result [facility] HISTORICAL RESULTS * (ABNORMAL) Basic metabolic panel (01/14/2017 6:37 AM CDT) Sodium 140 135 - 145 mmol/L Potassium 3.9 3.3 - 5.1 mmol/L Chloride 105 96 - 108 mmol/L Carbon Dioxide 25 22 - 32 mmol/L Anion Gap 10 7 - 16 Glucose 108(H) 70 - 100 mg/dL BUN 12 6 - 20 mg/dL Creatinine 0.8 0.5 - 1.3 mg/dL Comment: NOTE: Estimated [...] dialysis @ Est GFR (Cockcroft-G) 105 ml/MIN 01/14/2017 7:13 AM [facility] Comment: Estimated GFR(Cockroft-Gault)is used to calculate patient medication dosage Calcium 8.3(L) 8.6 - 10.0 mg/dL 01/14/2017 7:13 AM T [facility] HISTORICAL RESULTS 01/14/2017 6:37 AM CDT 01/14/2017 6:41 AM CDT us Franklyn Gamez DO LAB BLOOD ORDERABLES Final Result [facility] HISTORICAL RESULTS * Lipase (01/13/2017 9:12 AM CDT) Lipase 35 13 - 60 U/L 01/13/2017 10:14 AM T [facility] HISTORICAL RESULTS 01/13/2017 9:12 AM CDT 01/13/2017 9:51 AM CDT us Franklyn Aaron Gamez DO LAB BLOOD ORDERABLES Final Result [facility] HISTORICAL RESULTS * Comprehensive metabolic panel (01/13/2017 9:12 AM CDT) Sodium 139 135 - 145 mmol/L 01/13/2017 10:14 AM T [facility] HISTORICAL RESULTS Potassium 3.4 3.3 - 5.1 mmol/L Chloride 101 96 - 108 mmol/L Carbon Dioxide 27 22 - 32 mmol/L Anion Gap 11 7 - 16 Glucose 97 70 - 100 mg/dL BUN 8 6 - 20 mg/dL Creatinine 0.9 0.5 [...] or on dialysis @ Est GFR (Cockcroft-G) 93 ml/MIN 01/13/2017 10:14 AM [facility] HISTOR[facility] RESULTS Comment: Estimated GFR(Cockroft-Gault)is used to calculate patient medication dosage Calcium 8.6 8.6 - 10.0 mg/dL 01/13/2017 10:14 AM [facility] RESULTS Total Protein 6.9 6.4 - 8.3 g/dL 01/13/2017 10:14 AM [facility] HISTOR[facility] RESULTS Albumin 3.6 3.5 - 5.2 g/dL 01/13/2017 10:14 AM [facility]IST[facility] RESULTS Globulin 3.3 2.3 - 3.5 gm/dL 01/13/2017 10:14 AM [facility] HIST[facility] RESULTS Albumin/Globulin Ratio 1.1 1.1 - 1.8 01/13/2017 10:14 AM [facility] HISTORICAL RESULTS Total Bilirubin 0.2 0.0 - 1.2 mg/dL 01/13/2017 10:14 AM [facility] HISTORICAL RESULTS AST 19 0 - 40 U/L 01/13/2017 10:14 AM [facility] HISTORICAL RESULTS ALT 16 0 - 41 U/L 01/13/2017 10:14 AM [facility] HISTORICAL RESULTS Alkaline Phosphatase 77 40 - 129 U/L 01/13/2017 10:14 AM [facility] HISTORICAL RESULTS 01/13/2017 9:12 AM CDT 01/13/2017 9:51 AM CDT Franklyn Gamez DO LAB BLOOD ORDERABLES Final Result [facility] HISTORICAL RESULTS * (ABNORMAL) CBC with auto differential (01/13/2017 9:12 AM CDT) WBC 9.2 4.6 - 10.2 x10 3/ul 01/13/2017 9:54 AM CDT [facility] HISTORICAL RESULTS RBC 4.02(L) 4.11 - 5.71 x10 6/ul 01/13/2017 9:54 AM CDT [facility] HISTORICAL RESULTS Hemoglobin 13.0 13.0 - 17.0 g/dl 01/13/2017 9:54 AM CDT [facility] HISTORICAL RESULTS Hct 38.4 38.2 - 48.5 % 01/13/2017 9:54 AM CDT [facility] HISTORICAL RESULTS MCV 95.5 80.0 - 97.0 fl 01/13/2017 9:54 AM CDT [facility] HISTORICAL RESULTS MCH 32.3(H) 27.0 - 31.2 pg 01/13/2017 9:54 AM CDT [facility] HISTORICAL RESULTS MCHC 33.9 31.8 - 35.4 g/dl 01/13/2017 9:54 AM CDT [facility] HISTORICAL RESULTS RDW 14.3 11.6 - 14.8 % 01/13/2017 9:54 AM CDT [facility] HISTORICAL RESULTS Plt Count 269 124 - 400 x10 3/ul 01/13/2017 9:54 AM CDT [facility] HISTORICAL RESULTS MPV 7.7 7.4 - 10.4 fl 01/13/2017 9:54 AM CDT [facility] HISTORICAL RESULTS Neut % 81.7 37.0 - 85.0 % 01/13/2017 9:54 AM CDT [facility] HISTORICAL RESULTS Immature Gran % 0.3 0.0 - 3.0 % 01/13/2017 9:54 AM CDT [facility] HISTORICAL RESULTS Lymph % 12.8 5.0 - 45.0 % 01/13/2017 9:54 AM CDT [facility] [employer] HISTORICAL RESULTS Ida % 4.9 3.0 - 15.0 % 01/13/2017 9:54 AM CDT [facility] HISTORICAL RESULTS Eos % 0.1 0.0 - 7.0 % 01/13/2017 9:54 AM CDT [facility] HISTORICAL RESULTS Baso % 0.2 0.0 - 2.0 % 01/13/2017 9:54 AM T [facility] HISTORICAL RESULTS Absolute Neuts (auto) 7.5 1.7 - 8.7 x10 3/ul 01/13/2017 9:54 AM T [facility] HISTORICAL RESULTS Immature Gran # 0.0 0.0 - 0.3 x10 3/ul 01/13/2017 9:54 AM T [facility] HISTORICAL RESULTS Absolute Lymphs (auto) 1.2 0.2 - 4.6 x10 3/ul 01/13/2017 9:54 AM T [facility] HISTORICAL RESULTS Absolute Monos (auto) 0.5 0.1 - 1.5 x10 3/ul 01/13/2017 9:54 AM T [facility] HISTORICAL RESULTS Absolute Eos (auto) 0.0 0.0 - 0.7 x10 3/ul 01/13/2017 9:54 AM T [facility] HISTORICAL RESULTS Absolute Basos (auto) 0.0 0.0 - 0.2 x10 3/ul 01/13/2017 9:54 AM T [facility] HISTORICAL RESULTS Nucleat RBC Rel Count 0.0 0 - 3 #/100WBC 01/13/2017 9:54 AM T [facility] HISTORICAL RESULTS Absolute Nucleated RBC 0.00 x10 3/ul Absolute Neutrophils 7500 200 - 8000 /ul 01/13/2017 9:54 AM T [facility] HISTORICAL RESULTS 01/13/2017 9:12 AM CDT 01/13/2017 9:51 AM CDT us Franklyn Gamez DO LAB BLOOD ORDERABLES Final Result [facility] HISTORICAL RESULTS * CT Abdomen Pelvis W Contrast (01/13/2017 12:00 AM CDT) Anatomical Region Laterality Modality Body N/A Computed Tomogra phy 01/13/2017 Impressions 01/13/2017 12:11 PM CDT ?? 1. ??There is inflammation of the distal and salome-terminal ileum with proximal small bowel dilation indicative of a partial or functional small bowel obstruction. ??Similar features are present on prior CT from 07/28/2016. ?? Therefore findings could represent a recurrent acute exacerbation or chronic, indolent inflammation in the setting of known Crohn disease. GI consultation is recommended. Automated exposure control was used as a dose optimization technique for this examination. THIS IS AN ELECTRONICALLY VERIFIED REPORT 01/13/2017 12:07 PM: ??Garrett Vázquez D.O. ?? Garrett Vázquez D.O. :as 12:07 PM 12:07 PM [facility] [EOD] Narrative 01/13/2017 12:11 PM CDT EXAMINATION: ??CT OF THE ABDOMEN and PELVIS with IV contrast HISTORY: ??Right lower quadrant abdominal pain. ??History of Crohn disease. ?? Symptoms began this morning. ??History of bowel resection with ileostomy. TECHNIQUE: ??CT of the abdomen and pelvis was performed with IV contrast. ??100 mL Omnipaque 350 was instilled intravenously through the left forearm without complications. Comparison is made to most recent study from 07/28/2016. ABDOMEN: ??Lung bases are clear. The liver is unremarkable. ??The gallbladder, biliary tree, pancreas, spleen and adrenals are normal. ??Renal enhancement is symmetric. ??There is no hydronephrosis or perinephric fluid. The aorta is nonaneurysmal. ??There is calcified plaque associated with the superior mesenteric artery but without evidence for flow-limiting stenosis. ?? The celiac and RADHA are patent. ??There are small scattered retroperitoneal and mesenteric lymph nodes but without pathologically enlarged lymphadenopathy. There is diffuse wall thickening, mucosal enhancement and adjacent stranding associated with the distal and salome-terminal ileum within the right lower quadrant. ??This extends to the level of the enterocolic [id number] anastomosis. ??Similarly there is transition to dilated small bowel proximal to the level of the inflammation, consistent with a partial or functional obstruction (coronal image 37/86). Findings are similar and relatively unchanged compared to the prior CT from 07/28/2016. ??Therefore I am not certain if this presents a recurrent acute exacerbation or a chronic indolent inflammatory process. There is no free fluid or abdominal abscess. ??No free air is identified. ??No abdominal wall hernia. PELVIS: ??Trace volume of pelvic free fluid. ??Urinary bladder is unremarkable. No hernias. ??ORIF of the right hip with resultant beam-hardening artifact. There is no compression fracture or malalignment. ??No aggressive appearing osteolytic or blastic lesions are identified. Procedure Note Provider, MD David - 10/10/2020 EXAMINATION: CT OF THE ABDOMEN and PELVIS with IV contrast HISTORY: Right lower quadrant abdominal pain. History of Crohn disease. Symptoms began this morning. History of bowel resection with ileostomy. TECHNIQUE: CT of the abdomen and pelvis was performed with IV contrast.100 mL Omnipaque 350 was instilled intravenously through the left forearmwithout complications. Comparison is made to most recent study from 07/28/2016. ABDOMEN: Lung bases are clear. The liver is unremarkable. The gallbladder, biliary tree, pancreas,spleen and adrenals are normal. Renal enhancement is symmetric. There is no hydronephrosis or perinephric fluid. The aorta is nonaneurysmal. There is calcified plaque associated with the superior mesenteric artery but without evidence for flow-limitingstenosis. The celiac and RADHA are patent. There are small scattered retroperitone[place] mesenteric lymph nodes but without pathologically enlargedlymphadenopathy. There is diffuse wall thickening, mucosal enhancement and adjacentstranding associated with the distal and salome-terminal ileum within the right lower quadrant. This extends to the level of the enterocolic [id number] anastomosis. Similarly there is transition to dilated small bowelproximal to the level of the inflammation, consistent with a partial or functional obstruction (coronal image 37/86). Findings are similar and relatively unchanged compared to the prior CT from 07/28/2016. Therefore I am notcertain if this presents a recurrent acute exacerbation or a chronic indolent inflammatory process. There is no free fluid or abdominal abscess. No free air is identified.No abdominal wall hernia. PELVIS: Trace volume of pelvic free fluid. Urinary bladder isunremarkable. No hernias. ORIF of the right hip with resultant beam-hardeningartifact. There is no compression fracture or malalignment. No aggressive appearing osteolytic or blastic lesions are identified. IMPRESSION: 1. There is inflammation of the distal and salome-terminal ileum withproximal small bowel dilation indicative of a partial or functional small bowel obstruction. Similar features are present on prior CT from 07/28/2016. Therefore findings could represent a recurrent acute exacerbation orchronic, indolent inflammation in the setting of known Crohn disease. GIconsultation is recommended. Automated exposure control was used as a dose optimization technique forthis examination. THIS IS AN ELECTRONICALLY VERIFIED REPORT 01/13/2017 12:07 PM: Garrett Vázquez D.O. Garrett Vázquez D.O. :as 12:07 PM 12:07 PM [facility] [EOD] Franklyn Gamez DO IMG CT PROCEDURES Final Res ult documented in this encounter Visit Diagnoses Diagnosis Crohn's disease of small intestine with intestinal obstruction (CMS/HCC) (HCC) Essential (primary) hypertension Unspecified essential hypertension Gastro-esophageal reflux disease without esophagitis Crohn's disease without complication (CMS/HCC) (HCC) Nicotine dependence, uncomplicated Patient's intentional underdosing of medication regimen for other reason Other snf (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 Personal history of urinary calculi History of intestinal bypass Intestinal bypass or anastomosis status Allergy status to narcotic agent documented in this encounter
--- OUTSIDE RECORDS SUMMARY | 2024-06-06 03:29 | XMS_ITS | Encounter Summary ---
Author Organization [facility] Healthcare Address [address] [place] [address] Care Team Providers Care Motion Picture Projectionist Name Role Phone Unavailable Primary Care Provider Unavailabl e Encounter Details Date Type Department Care Team (Latest Contact Info) Description 02/26/2017 4:30 PM CDT - 02/27/2017 4:24 PM CDT Hospital Encounter [facility] Hemant Lopez MD [address] [place] [id number] Crohn's disease of large intestine without complication (CMS/HCC); Hypertensive urgency; Abdominal pain; Gastro-esophageal reflux disease without esophagitis; Cigarette nicotine dependence, uncomplicated; Other [place] [facility] (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; Essential (primary) hypertension Social History Tobacco Use Types Packs/Day Years Used Date Smoking Tobacco: Never Assessed Sex and Gender Information Value Date Recorded Sex Assigned at Not on file 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 Gender Identity Not on file Sexual Orientation Not on file documented as of this encounter Last Filed Vital Signs Vital Sign Reading Time Taken Comments Blood Pressure 189/108 02/27/2017 2:40 PM CDT Pulse 76 02/27/2017 2:40 PM CDT Temperature 37 ??C (98.6 ??F) 02/27/2017 2:40 PM CDT Respiratory Rate - - Oxygen Saturation 94% 02/27/2017 2:40 PM CDT Inhaled Oxygen Concentration - - Weight 70.5 kg (155 lb 6.8 oz) 02/27/2017 2:40 P M CDT Height 168.9 cm (5' 6.5 ) 02/27/2017 2:40 PM CDT Body Mass Index 24.71 02/27/2017 2:40 PM CDT documented in this encounter Plan of Treatment Not on file documented as of this encounter Procedures Procedure Name Priority Date/Time Associated Diagnosis Comments CBC WITH AUTO DIFFERENTIAL Routine 02/27/2017 6:29 AM CDT BASIC METABOLIC PANEL Routine 02/27/2017 6:29 AM CDT CBC WITH AUTO DIFFERENTIAL Routine 02/26/2017 1:07 PM CDT LIPASE Routine 02/26/2017 1:07 PM CDT COMPREHENSIVE METABOLIC PANEL Routine 02/26/2017 1:[address] ABDOMEN PELVIS W CONTRAST Routine 02/26/2017 11:54 AM CDT documented in this encounter Results * (ABNORMAL) CBC with auto differential (02/27/2017 6:29 AM CDT) WBC 5.9 4.6 - 10.2 x10 3/ul 02/27/2017 6:55 AM CDT [employer] HISTORICAL RESULTS Comment:Results reviewed RBC 3.51(L) 4.11 - 5.71 x10 6/ul 02/27/2017 6:55 AM CDT [employer] HISTORICAL RESULTS Comment:Results reviewed Hemoglobin 11.6(L) 13.0 - 17.0 g/dl Hct 33.8(L) 38.2 - 48.5 % 02/27/2017 6:54 AM CDT [facility] HISTORICAL RESULTS MCV 96.3 80.0 - 97.0 fl 02/27/2017 6:54 AM CDT [employer] HISTORICAL RESULTS MCH 33.0(H) 27.0 - 31.2 pg 02/27/2017 6:54 AM CDT [employer] HISTORICAL RESULTS MCHC 34.3 31.8 - 35.4 g/dl 02/27/2017 6:54 AM CDT [facility] HISTORICAL RESULTS RDW 13.6 11.6 - 14.8 % Plt Count 246 124 - 400 x10 3/ul MPV 8.0 7.4 - 10.4 fl Neut % 53.0 37.0 - 85.0 % Immature Gran % 0.2 0.0 - 3.0 % Lymph % 36.7 5.0 - 45.0 % [place] % 9.1 3.0 - 15.0 % Eos % 0.7 0.0 - 7.0 % Baso % 0.3 0.0 - 2.0 % Absolute Neuts (auto) 3.1 1.7 - 8.7 x10 3/ul Immature Gran # 0.0 0.0 - 0.3 x10 3/ul Absolute Lymphs (auto) 2.2 0.2 - 4.6 x10 3/ul Absolute Monos (auto) 0.5 0.1 - 1.5 x10 3/ul Absolute Eos (auto) 0.0 0.0 - 0.7 x10 3/ul Absolute Basos (auto) 0.0 0.0 - 0.2 x10 3/ul Nucleat RBC Rel Count 0.0 0 - 3 #/100WBC Absolute Nucleated RBC 0.00 x10 3/ul Absolute Neutrophils 3100 200 - 8000 /ul 02/27/2017 6:29 AM CDT 02/27/2017 6:48 AM CDT us Nemesio Berg LAB BLOOD ORDERABLES Final R esult [facility] HISTORICAL RESULTS * (ABNORMAL) Basic metabolic panel (02/27/2017 6:29 AM CDT) Sodium 140 135 - 145 mmol/L Potassium 3.4 3.3 - 5.1 mmol/L Chloride 103 96 - 108 mmol/L Carbon Dioxide 28 22 - 32 mmol/L Anion Gap 9 7 - 16 Glucose 93 70 - 100 mg/dL BUN 10 6 - 20 mg/dL Creatinine 1.0 0.5 [...] dialysis @ Est GFR (Cockcroft-G) 83 ml/MIN Comment: Estimated GFR(Cockroft-Gault)is used to calculate patient medication dosage Calcium 7.8(L) 8.6 - 10.0 mg/dL 02/27/2017 6:29 AM CDT 02/27/2017 6:48 AM CDT us Nemesio Berg LAB BLOOD ORDERABLES Final R esult [facility] HISTORICAL RESULTS * Lipase (02/26/2017 1:07 PM CDT) Lipase 52 13 - 60 U/L 02/26/2017 1:07 PM CDT 02/26/2017 1:12 PM CDT Starr DELANEY LAB BLOOD ORDERABLES Final Re sult [facility] HISTORICAL RESULTS * (ABNORMAL) Comprehensive metabolic panel (02/26/2017 1:07 PM CDT) Sodium 141 135 - 145 mmol/L Potassium 3.7 3.3 - 5.1 mmol/L Chloride 100 96 - 108 mmol/L Carbon Dioxide 30 22 - 32 mmol/L Anion Gap 11 7 - 16 Glucose 107(H) 70 - 100 mg/dL BUN 7 6 [...] dialysis @ Est GFR (Cockcroft-G) 83 ml/MIN Comment: Estimated GFR(Cockroft-Gault)is used to calculate patient medication dosage Calcium 8.8 8.6 - 10.0 mg/dL Total Protein 7.1 6.4 - 8.3 g/dL Albumin 3.9 3.5 - 5.2 g/dL Globulin 3.2 2.3 - 3.5 gm/dL Albumin/Globulin Ratio 1.2 1.1 - 1.8 Total Bilirubin 0.3 0.0 - 1.2 mg/dL AST 15 0 - 40 U/L ALT 15 0 - 41 U/L Alkaline Phosphatase 87 40 - 129 U/L 02/26/2017 1:07 PM CDT 02/26/2017 1:12 PM T us Starr DELANEY LAB BLOOD ORDERABLES Final Re sult [facility] HISTORICAL RESULTS * (ABNORMAL) CBC with auto differential (02/26/2017 1:07 PM CDT) WBC 9.1 4.6 - 10.2 x10 3/ul RBC 4.14 4.11 - 5.71 x10 6/ul 02/26/2017 1:14 PM CDT [facility] Hemoglobin 13.3 13.0 - 17.0 g/dl 02/26/2017 1:14 PM CDT [facility] HIST[facility]ICAL RESULTS Hct 39.2 38.2 - 48.5 % MCV 94.7 80.0 - 97.0 fl MCH 32.1(H) 27.0 - 31.2 pg 02/26/2017 1:14 PM CDT [facility] HISTORICAL RESULTS MCHC 33.9 31.8 - 35.4 g/dl 02/26/2017 1:14 PM CDT [facility]ISTOR[facility] RES[facility] RDW 13.4 11.6 - 14.8 % 02/26/2017 1:14 PM CDT [facility] Real-Time HISTORICAL RESULTS Plt Count 262 124 - 400 x10 3/ul 02/26/2017 1:14 PM CDT [facility] Real-Time HISTORICAL RESULTS MPV 7.5 7.4 - 10.4 fl 02/26/2017 1:14 PM CDT [employer] [facility] HISTORICAL RESULTS Neut % 82.3 37.0 - 85.0 % 02/26/2017 1:14 PM CDT [employer] HISTORICAL RESULTS Immature Gran % 0.4 0.0 - 3.0 % 02/26/2017 1:14 PM CDT [facility] [employer] [facility] H[facility] RES[facility] Lymph % 13.0 5.0 - 45.0 % 02/26/2017 1:14 PM CDT [facility] [employer] HISTORICAL RESULTS [place] % 4.0 3.0 - 15.0 % 02/26/2017 1:14 PM CDT [facility] HIST[facility] RESULTS Eos % 0.1 0.0 - 7.0 % 02/26/2017 1:14 PM CDT [facility] [employer] [facility] Baso % 0.2 0.0 - 2.0 % 02/26/2017 1:14 PM CDT [facility] [employer] HISTORICAL RESULTS Absolute Neuts (auto) 7.5 1.7 - 8.7 x10 3/ul Immature Gran # 0.0 0.0 - 0.3 x10 3/ul Absolute Lymphs (auto) 1.2 0.2 - 4.6 x10 3/ul Absolute Monos (auto) 0.4 0.1 - 1.5 x10 3/ul Absolute Eos (auto) 0.0 0.0 - 0.7 x10 3/ul Absolute Basos (auto) 0.0 0.0 - 0.2 x10 3/ul Nucleat RBC Rel Count 0.0 0 - 3 #/100WBC Absolute Nucleated RBC 0.00 x10 3/ul Absolute Neutrophils 7500 200 - 8000 /ul 02/26/2017 1:07 PM CDT 02/26/2017 1:12 PM CDT us Starr DELANEY LAB BLOOD ORDERABLES Final Re sult [facility] HISTORICAL RESULTS * CT Abdomen Pelvis W Contrast (02/26/2017 11:54 AM CDT) Anatomical Region Laterality Modality Body N/A Computed Tomogra phy 02/26/2017 11:5 4 AM CDT Impressions 02/26/2017 2:00 PM CDT ??1. ??Redemonstration of distal ileal wall thickening at the ileocolonic anastomosis, likely acute on chronic known inflammatory bowel disease. 2. ??Ileal wall thickening again results in at least partial functional obstruction with marked dilation of the distal ileum contains fluid measuring 4.3 cm. 3. ??Mild mucosal hyperenhancement is also noted in the rectum also with likely component mild inflammation. 4. ??Likely reactive lymph nodes in the associated small bowel mesentery. Automated exposure control was used as a dose optimization technique for this examination. THIS IS AN ELECTRONICALLY VERIFIED REPORT 02/26/2017 1:56 PM: ??Barry Adrian M.D. ?? Barry Adrian M.D. CH:charley 01:56 PM 01:56 PM BM [EOD] Narrative 02/26/2017 2:00 PM CDT EXAMINATION: ??CT abdomen and pelvis with contrast. HISTORY: ??Nausea, vomiting diarrhea this morning, Crohn disease. TECHNIQUE: ??Following intravenous administration of 100 mL Omnipaque 350 intravenous contrast via the left upper arm, postcontrast images were obtained through the abdomen and pelvis. COMPARISON: ??01/13/2017. Obstruction series 11/28/2015. FINDINGS: ??Nodular density in the right mid lung on the scanogram, corresponds to a calcified granuloma seen on prior imaging. Abdomen: ??No focal hepatic lesion. ??Gallbladder, spleen, pancreas, and both adrenal glands are normal. ??No renal calculi or hydronephrosis is seen. Mild mucosal hyperenhancement at the rectum with minimal wall thickening. ?? Postsurgical changes are seen from partial right hemicolectomy with ileocolonic anastomosis. ??There is again marked wall thickening of the distal ileum at the site of the anastomosis, appears similar to the prior examination. ??The more proximal small bowel is again dilated containing fluid, this segment of bowel is now 4.3 cm, previously similar maximal measurement, likely with at least a component of mild functional obstruction due to the inflammatory wall thickening. ??Small amount of fluid adjacent to the bowel is again noted. Abdominal aorta is nonaneurysmal. ??No pathologic lymphadenopathy is seen. ?? Small lymph nodes in the abdominal mesentery are again identified. Pelvis: ??Urinary bladder is unremarkable. ??No pathologic lymphadenopathy. ??The prostate is not enlarged. Bone windows show a right intramedullary rani of the femur with pin. ??No acute or aggressive osseous lesion is seen. Procedure Note ProviderDavid MD - 10/10/2020 EXAMINATION: CT abdomen and pelvis with contrast. HISTORY: Nausea, vomiting diarrhea this morning, Crohn disease. TECHNIQUE: Following intravenous administration of 100 mL Omnipaque 350 intravenous contrast via the left upper arm, postcontrast images wereobtained through the abdomen and pelvis. COMPARISON: 01/13/2017. Obstruction series 11/28/2015. FINDINGS: Nodular density in the right mid lung on the scanogram,corresponds to a calcified granuloma seen on prior imaging. Abdomen: No focal hepatic lesion. Gallbladder, spleen, pancreas, andboth adrenal glands are normal. No renal calculi or hydronephrosis is seen. Mild mucosal hyperenhancement at the rectum with minimal wall thickening. Postsurgical changes are seen from partial right hemicolectomy with ileocolonic anastomosis. There is again marked wall thickening of thedistal ileum at the site of the anastomosis, appears similar to the prior examination. The more proximal small bowel is again dilated containingfluid, this segment of bowel is now 4.3 cm, previously similar maximalmeasurement, likely with at least a component of mild functional obstruction due to the inflammatory wall thickening. Small amount of fluid adjacent to the bowelis again noted. Abdominal aorta is nonaneurysmal. No pathologic lymphadenopathy is seen. Small lymph nodes in the abdominal mesentery are again identified. Pelvis: Urinary bladder is unremarkable. No pathologic lymphadenopathy.The prostate is not enlarged. Bone windows show a right intramedullary rani of the femur with pin. Noacute or aggressive osseous lesion is seen. IMPRESSION: 1. Redemonstration of distal ileal wall thickening at the ileocolonic anastomosis, likely acute on chronic known inflammatory bowel disease. 2. Ileal wall thickening again results in at least partial functional obstruction with marked dilation of the distal ileum contains fluidmeasuring 4.3 cm. 3. Mild mucosal hyperenhancement is also noted in the rectum also withlikely component mild inflammation. 4. Likely reactive lymph nodes in the associated small bowel mesentery. Automated exposure control was used as a dose optimization technique forthis examination. THIS IS AN ELECTRONICALLY VERIFIED REPORT 02/26/2017 1:56 PM: Barry Adrian M.D. Barry Adrian M.D. 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
--- OUTSIDE RECORDS SUMMARY | 2024-06-06 03:29 | XMS_ITS | Encounter Summary ---
Author Organization [facility] Address [address] [place] [address] Care Team Providers Care Director Financial Services Name Role Phone Unavailable Primary Care Provider Unavailabl e Encounter Details Date Type Department Care Team (Latest Contact Info) Description 04/01/2017 10:01 AM [facility] - 04/03/2017 12:40 PM [facility] Hospital Encounter [facility] Hemant Lopez MD [address] [place] [id number] Crohn's disease of small intestine with intestinal obstruction (CMS/HCC); Essential (primary) hypertension; Gastro-esophageal reflux disease without esophagitis; Cigarette nicotine dependence, uncomplicated; 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; Hypertensive urgency Social History Tobacco Use Types Packs/Day Years Used Date Smoking Tobacco: Never Assessed Sex and Gender Information Value Date Recorded Sex Assigned at Not on file Legal Sex Male 12:12 PM [facility] Gender Identity Not on file Sexual Orientation Not on file documented as of this encounter Last Filed Vital Signs Vital Sign Reading Time Taken Comments Blood Pressure 173/98 04/02/2017 8:26 PM [facility] Pulse 79 04/02/2017 8:26 PM [facility] Temperature 36.8 ??C (98.3 ??F) 04/02/2017 8:26 PM CS T Respiratory Rate - - Oxygen Saturation 98% 04/02/2017 8:26 PM [facility] Inhaled Oxygen Concentration - - Weight 70.3 kg (155 lb) 04/02/2017 8:26 PM [facility] Height 167.6 cm (5' 6 ) 04/02/2017 8:26 PM [facility] Body Mass Index 25.02 04/02/2017 8:26 PM [facility] documented in this encounter Plan of Treatment Not on file documented as of this encounter Procedures Procedure Name Priority Date/Time Associated Diagnosis Comments CBC WITH AUTO DIFFERENTIAL Routine 04/02/2017 8:34 AM [facility] BASIC METABOLIC PANEL Routine 04/02/2017 8:34 AM [facility] XR ABDOMEN 2 VIEWS W CHEST 1 VIEW Routine 04/02/2017 12:[address] ABDOMEN PELVIS W CONTRAST Routine 04/01/2017 8:12 AM [facility] URINALYSIS Routine 04/01/2017 7:50 AM [facility] CBC WITH AUTO DIFFERENTIAL Routine 04/01/2017 7:27 AM [facility] COMPREHENSIVE METABOLIC PANEL Routine 04/01/2017 7:27 AM [facility] documented in this encounter Results * (ABNORMAL) CBC with auto differential (04/02/2017 8:34 AM [facility]) WBC 8.4 4.6 - 10.2 x10 3/ul 04/02/2017 9:07 AM [facility] [employer] HISTORICAL RESULTS RBC 3.86(L) 4.11 - 5.71 x10 6/ul 04/02/2017 9:07 AM [facility] [employer] HISTORICAL RESULTS Hemoglobin 12.3(L) 13.0 - 17.0 g/dl 04/02/2017 9:07 AM [facility] [employer] HISTORICAL RESULTS Hct 36.2(L) 38.2 - 48.5 % 04/02/2017 9:07 AM [facility] [employer] HISTORICAL RESULTS MCV 93.8 80.0 - 97.0 fl 04/02/2017 9:07 AM [facility] [employer] HISTORICAL RESULTS MCH 31.9(H) 27.0 - 31.2 pg 04/02/2017 9:07 AM [facility] [employer] HISTORICAL RESULTS MCHC 34.0 31.8 - 35.4 g/dl 04/02/2017 9:07 AM [facility] [employer] HISTORICAL RESULTS RDW 13.8 11.6 - 14.8 % 04/02/2017 9:[address] [facility] [employer] [facility] HISTORICAL RESULTS Plt Count 253 124 - 400 x10 3/ul MPV 8.0 7.4 - 10.4 fl 04/02/2017 9:07 AM [employer] [facility] [employer] [facility] HISTORICAL RESULTS Neut % 66.1 37.0 - 85.0 % 04/02/2017 9:[address] [facility] [employer] [facility] HISTORICAL RESULTS Immature Gran % 0.1 0.0 - 3.0 % 04/02/2017 9:07 AM [employer] [facility] [employer] [facility] HISTORICAL RESULTS Lymph % 26.3 5.0 - 45.0 % 04/02/2017 9:07 AM [employer] [facility] [employer] [facility] HISTORICAL RESULTS Franklin % 7.2 3.0 - 15.0 % 04/02/2017 9:07 AM [employer] [facility] [employer] [facility] HISTORICAL RESULTS Eos % 0.2 0.0 - 7.0 % 04/02/2017 9:07 AM [employer] [facility] [employer] [facility] HISTORICAL RESULTS Baso % 0.1 0.0 - 2.0 % 04/02/2017 9:07 AM [employer] [facility] [employer] [facility] HISTORICAL RESULTS Absolute Neuts (auto) 5.5 1.7 - 8.7 x10 3/ul 04/02/2017 9:07 AM [employer] [facility] [employer] [facility] HISTORICAL RESULTS Immature Gran # 0.0 0.0 - 0.3 x10 3/ul 04/02/2017 9:07 AM [employer] [facility] [employer] [facility] HISTORICAL RESULTS Absolute Lymphs (auto) 2.2 0.2 - 4.6 x10 3/ul 04/02/2017 9:07 AM [employer] [facility] [employer] [facility] HISTORICAL RESULTS Absolute Monos (auto) 0.6 0.1 - 1.5 x10 3/ul 04/02/2017 9:07 AM [employer] [facility] [employer] [facility] HISTORICAL RESULTS Absolute Eos (auto) 0.0 0.0 - 0.7 x10 3/ul 04/02/2017 9:07 AM [employer] [facility] [employer] [facility] HISTORICAL RESULTS Absolute Basos (auto) 0.0 0.0 - 0.2 x10 3/ul 04/02/2017 9:07 AM [employer] [facility] [employer] [facility] HISTORICAL RESULTS Nucleat RBC Rel Count 0.0 0 - 3 #/100WBC Absolute Nucleated RBC 0.00 x10 3/ul Absolute Neutrophils 5500 200 - 8000 /ul 04/02/2017 8:34 AM [facility] 04/02/2017 9:02 AM [facility] Narrative [facility] HISTORICAL RESULTS - 04/02/2017 9:07 AM [facility] Lauren Wolf [employer] LAB BLOOD ORDERABLES Final Result [facility] HISTORICAL RESULTS * (ABNORMAL) Basic metabolic panel (04/02/2017 8:34 AM [facility]) Sodium 139 135 - 145 mmol/L Potassium 3.7 3.3 - 5.1 mmol/L Chloride 104 96 - 108 mmol/L Carbon Dioxide 24 22 - 32 mmol/L Anion Gap 11 7 - 16 Glucose 95 70 - 100 mg/dL BUN 5(L) 6 - 20 mg/dL Creatinine 0.8 0.5 [...] or on dialysis @ Est GFR (Cockcroft-G) 103 ml/MIN 04/02/2017 9:28 AM [facility] HISTORICAL RESULTS Comment: Estimated GFR(Cockroft-Gault)is used to calculate patient medication dosage Calcium 8.8 8.6 - 10.0 mg/dL 04/02/2017 9:28 AM [facility] HISTORICAL RESULTS 04/02/2017 8:34 AM [facility] 04/02/2017 9:02 AM [facility] Narrative [facility] HISTORICAL RESULTS - 04/02/2017 9:28 AM [facility] Lauren Wolf NP LAB BLOOD ORDERABLES Final Result [facility] HISTORICAL RESULTS * XR Abdomen 2 Views W Chest 1 View (04/02/2017 12:00 AM [facility]) Anatomical Region Laterality Modality Body, Abdomen N/A Radiographic Annita ging 04/02/2017 Impressions 04/02/2017 8:24 AM [facility] ?? 1. ??Persistently dilated small bowel loops within the midabdomen. ??Slightly greater colonic gas on today's examination than on the prior CT topogram. ?? Findings reflect known partial small bowel obstructive process. ??Continued follow-up is recommended until resolution. 2. ??No acute pulmonary process THIS IS AN ELECTRONICALLY VERIFIED REPORT 04/02/2017 8:21 AM: ??Joann Stanley M.D. ?? Joann Stanley M.D. TB:tb 08:21 AM 08:21 AM [facility] [EOD] Narrative 04/02/2017 8:24 AM [facility] EXAMINATION: ??Obstruction series HISTORY: Shortness of breath for 2 months. ??Previous abdominal pain which has resolved. ??History of small bowel obstruction. TECHNIQUE: ??PA view of the chest and supine and upright views of the abdomen (3 images) COMPARISON: ??CT abdomen and pelvis 04/01/17, 02/26/17 and 01/13/17. ??Obstruction series 07/29/16 FINDINGS: ??The cardiac silhouette is within normal limits in size. ??Pulmonary vascularity is similar to the prior examinations. ??Postinflammatory calcification again demonstrated in the right lung. ??There are coarsened interstitial markings, similar to prior study without discrete consolidation. ?? There is no effusion or pneumothorax. There are persistently dilated small bowel loops noted within the midabdomen, measuring up to approximately 85 cm in caliber. ??There is scattered colonic air noted on the current examination. ??Overall, the amount of colonic air is slightly greater than on the topogram from the recent CT examination. ?? Findings reflect known partial small bowel obstructive process. ??There is no appreciable free intraperitoneal air. There is no definite urolithiasis. ??The osseous structures reveal stable degenerative changes. ?? Procedure Note Provider, MD David - 10/10/2020 EXAMINATION: Obstruction series HISTORY: Shortness of breath for 2 months. Previous abdominal pain whichhas resolved. History of small bowel obstruction. TECHNIQUE: PA view of the chest and supine and upright views of theabdomen (3 images) COMPARISON: CT abdomen and pelvis 04/01/17, 02/26/17 and 01/13/17.Obstruction series 07/29/16 FINDINGS: The cardiac silhouette is within normal limits in size.Pulmonary vascularity is similar to the prior examinations. Postinflammatory calcification again demonstrated in the right lung. There are coarsened interstitial markings, similar to prior study without discreteconsolidation. There is no effusion or pneumothorax. There are persistently dilated small bowel loops noted within themidabdomen, measuring up to approximately 85 cm in caliber. There is scatteredcolonic air noted on the current examination. Overall, the amount of colonic airis slightly greater than on the topogram from the recent CT examination. Findings reflect known partial small bowel obstructive process. There isno appreciable free intraperitoneal air. There is no definite urolithiasis. The osseous structures reveal stable degenerative changes. IMPRESSION: 1. Persistently dilated small bowel loops within the midabdomen.Slightly greater colonic gas on today's examination than on the prior CT topogram. Findings reflect known partial small bowel obstructive process. Continued follow-up is recommended until resolution. 2. No acute pulmonary process THIS IS AN ELECTRONICALLY VERIFIED REPORT 04/02/2017 8:21 AM: Joann Stanley M.D. Joann Stanley M.D. TB:tb 08:21 AM 08:21 AM [facility] [EOD] Haroldo Hoover MD IMG XR PROCEDURES Final Resul t * CT Abdomen Pelvis W Contrast (04/01/2017 8:12 AM [facility]) Anatomical Region Laterality Modality Body N/A Computed Tomogra phy 04/01/2017 8:12 AM [facility] Impressions 04/01/2017 9:18 AM [facility] 1. ??Inflammatory bowel disease with active inflammation in the distal ileum just prior to the site of prior ileocolonic anastomosis. ??This causes a partial functional obstruction of the small bowel just proximal to this region. ??The overall appearance is not significantly changed compared to the prior examination. ??There is a trace amount of free fluid but no pneumatosis or free intraperitoneal air. Above findings discussed with Dr. Pierson by Dr. Zelaya at 9:15 a.m. on 04/01/2017. Automated exposure control was used as a dose optimization technique for this examination. THIS IS AN ELECTRONICALLY VERIFIED REPORT 04/01/2017 9:15 AM: ??Elian Zelaya M.D. ?? Elian Zelaya M.D. CN:viral 09:15 AM 09:15 AM [facility] [EOD] Narrative 04/01/2017 9:18 AM [facility] EXAMINATION: CT abdomen/pelvis with intravenous contrast HISTORY: Crohn disease, now presenting with lower abdominal pain, onset earlier today COMPARISON: CT abdomen/pelvis 02/26/2017 TECHNIQUE: Computed tomographic images of the abdomen and pelvis were obtained after the administration of 100 mL of Omnipaque 350 intravenous contrast via right forearm IV. FINDINGS: Limited images of the lung bases do not demonstrate any focal consolidation or pleural effusion. The liver, gallbladder, spleen, pancreas, kidneys, adrenal glands are normal. ?? The bladder is normal. ??The prostate is normal in size. The abdominal aorta is normal in caliber with minimal atherosclerotic calcification. There are is bowel wall thickening with adjacent inflammatory stranding in the distal ileum near the site of prior ileocolonic anastomosis, likely secondary to active inflammation from the patient's known Crohn disease. ??There is dilatation of the small bowel just proximal to this inflammation, likely representing partial functional obstruction. There is a trace amount of free fluid in this region. There is no free intraperitoneal air or pneumatosis. ?? There is a small fat-containing hernia just lateral to the left rectus abdominis muscle (axial image 65). ??There is no abdominal or pelvic lymphadenopathy. Bone windows do not demonstrate any abnormal osseous lytic or blastic lesions. Again noted is surgical instrumentation in the proximal right femur. Procedure Note Provider, MD David - 10/10/2020 EXAMINATION: CT abdomen/pelvis with intravenous contrast HISTORY: Crohn disease, now presenting with lower abdominal pain, onset earlier today COMPARISON: CT abdomen/pelvis 02/26/2017 TECHNIQUE: Computed tomographic images of the abdomen and pelvis wereobtained after the administration of 100 mL of Omnipaque 350 intravenous contrastvia right forearm IV. FINDINGS: Limited images of the lung bases do not demonstrate any focalconsolidation or pleural effusion. The liver, gallbladder, spleen, pancreas, kidneys, adrenal glands arenormal. The bladder is normal. The prostate is normal in size. The abdominalaorta is normal in caliber with minimal atherosclerotic calcification. There are is bowel wall thickening with adjacent inflammatory stranding inthe distal ileum near the site of prior ileocolonic anastomosis, likelysecondary to active inflammation from the patient's known Crohn disease. There is dilatation of the small bowel just proximal to this inflammation, likely representing partial functional obstruction. There is a trace amount offree fluid in this region. There is no free intraperitoneal air or pneumatosis. There is a small fat-containing hernia just lateral to the left rectus abdominis muscle (axial image 65). There is no abdominal or pelvic lymphadenopathy. Bone windows do not demonstrate any abnormal osseous lytic or blasticlesions. Again noted is surgical instrumentation in the proximal right femur. IMPRESSION: 1. Inflammatory bowel disease with active inflammation in the distalileum just prior to the site of prior ileocolonic anastomosis. This causes a partial functional obstruction of the small bowel just proximal to this region. The overall appearance is not significantly changed compared tothe prior examination. There is a trace amount of free fluid but nopneumatosis or free intraperitoneal air. Above findings discussed with Dr. Pierson by Dr. Zelaya at 9:15 a.m. on 04/01/2017. Automated exposure control was used as a dose optimization technique forthis examination. THIS IS AN ELECTRONICALLY VERIFIED REPORT 04/01/2017 9:15 AM: Elian Zelaya M.D. Elian Zelaya M.D. CN:viral 09:15 AM 09:15 AM [facility] [EOD] us Lauren Wolf [employer] IMG CT PROCEDURES Final Res ult * Urinalysis (04/01/2017 7:50 AM [facility]) Pathologist [facility] Ur Collection Type CLEAN CATCH Urine Color YELLOW YELLOW 04/01/2017 8:01 AM [facility] HISTORICAL RESULTS Urine Clarity CLEAR CLEAR 04/01/2017 8:01 AM [facility] HISTORICAL RESULTS Urine Glucose (UA) NORMAL NORMAL mg/dL 04/01/2017 8:01 AM [facility] HISTORICAL RESULTS Urine Bilirubin NEGATIVE NEGATIVE mg/dl 04/01/2017 8:01 AM [facility] HISTORICAL RESULTS Urine Ketones NEGATIVE NEGATIVE mg/dL 04/01/2017 8:01 AM [facility] HISTORICAL RESULTS Ur Specific Cache 1.020 1.005 - 1.025 04/01/2017 8:01 AM [facility] HISTORICAL RESULTS Urine Blood NEGATIVE NEGATIVE mg/dl 04/01/2017 8:01 AM [facility] HISTORICAL RESULTS Urine pH 6.0 5.0 - 8.0 04/01/2017 8:01 AM [facility] HISTORICAL RESULTS Urine Protein NEGATIVE NEGATIVE mg/dL 04/01/2017 8:01 AM [facility] HISTORICAL RESULTS Urine Urobilinogen NORMAL NORMAL mg/dL Urine Nitrite NEGATIVE NEGATIVE 04/01/2017 8:01 AM [facility] HISTORICAL RESULTS Ur Leukocyte Esterase NEGATIVE NEGATIVE Natalio/ul 04/01/2017 8:01 AM [facility] HISTORICAL RESULTS Ur Microscopic Review Not Indicated 04/01/2017 8:01 AM [facility] HISTORICAL RESULTS 04/01/2017 7:50 AM [facility] 04/01/2017 7:55 AM [facility] Lauren Wolf [employer] LAB URINE ORDERABLES Final Result [facility] HISTORICAL RESULTS * (ABNORMAL) Comprehensive metabolic panel (04/01/2017 7:27 AM [facility]) Pathologist [facility] Sodium 141 135 - 145 mmol/L Potassium 3.5 3.3 - 5.1 mmol/L Chloride 107 96 - 108 mmol/L 04/01/2017 8:00 AM [facility]IST[facility] RESULTS Carbon Dioxide 21(L) 22 - 32 mmol/L Anion Gap 13 7 - 16 Glucose 98 70 - 100 mg/dL BUN 11 6 - 20 mg/dL 04/01/2017 8:00 AM [facility] HISTORICAL RESULTS Creatinine 0.8 0.5 - 1.3 mg/dL 04/01/2017 8:00 AM [facility]IST[facility] Comment: NOTE: Estimated GFR (Cockroft-Gault) will NOT be calculated unless patient Height and Weight were entered. Also, Kidney Disease Stage (GFR) and Estimated GFR (Cockroft-Gault) will NOT be calculated if Creatinine result is <0.2. Kidney Disease Stage > 90 mL/MIN 04/01/2017 8:00 AM [employer] [facility] HISTORICAL RESULTS Comment: NOTE; ??The GFR is [...] or on dialysis @ Est GFR (Cockcroft-G) 103 ml/MIN 04/01/2017 8:[address] [facility] [employer] [facility] HISTORICAL RESULTS Comment: Estimated GFR(Cockroft-Gault)is used to calculate patient medication dosage Calcium 8.6 8.6 - 10.0 mg/dL 04/01/2017 8:00 AM [facility] HISTORICAL RESULTS Total Protein 6.5 6.4 - 8.3 g/dL 04/01/2017 8:00 AM [facility] HISTORICAL RESULTS Albumin 3.9 3.5 - 5.2 g/dL 04/01/2017 8:00 AM [facility] HISTORICAL RESULTS Globulin 2.6 2.3 - 3.5 gm/dL Albumin/Globulin Ratio 1.5 1.1 - 1.8 04/01/2017 8:00 AM [facility] [employer] [facility] HISTORICAL RESULTS Total Bilirubin 0.2 0.0 - 1.2 mg/dL 04/01/2017 8:00 AM [facility] [employer] [facility] HISTORICAL RESULTS AST 14 0 - 40 U/L 04/01/2017 8:[address] [facility] [employer] [facility] HISTORICAL RESULTS ALT 11 0 - 41 U/L Alkaline Phosphatase 84 40 - 129 U/L 04/01/2017 8:[address] [facility] [employer] [facility] HISTOR[facility] RESULTS 04/01/2017 7:27 AM [facility] 04/01/2017 7:33 AM [facility] Lauren Wolf [employer] LAB BLOOD ORDERABLES Final Result [facility] HISTORICAL RESULTS * (ABNORMAL) CBC with auto differential (04/01/2017 7:27 AM [facility]) WBC 9.0 4.6 - 10.2 x10 3/ul 04/01/2017 7:[address] [facility] [employer] HISTORICAL RESULTS RBC 3.96(L) 4.11 - 5.71 x10 6/ul 04/01/2017 7:[address] [facility] [employer] [facility] HISTORICAL RESULTS Hemoglobin 12.6(L) 13.0 - 17.0 g/dl 04/01/2017 7:41 AM [employer] HISTORICAL RESULTS Hct 37.3(L) 38.2 - 48.5 % 04/01/2017 7:41 AM [facility] [employer] HISTORICAL RESULTS MCV 94.2 80.0 - 97.0 fl 04/01/2017 7:41 AM [facility] [employer] HISTORICAL RESULTS MCH 31.8(H) 27.0 - 31.2 pg 04/01/2017 7:41 AM [facility] [employer] HISTORICAL RESULTS MCHC 33.8 31.8 - 35.4 g/dl 04/01/2017 7:41 AM [employer] HISTORICAL RESULTS RDW 14.0 11.6 - 14.8 % 04/01/2017 7:41 AM [employer] HISTORICAL RESULTS Plt Count 257 124 - 400 x10 3/ul 04/01/2017 7:41 AM [employer] HISTORICAL RESULTS MPV 8.0 7.4 - 10.4 fl 04/01/2017 7:41 AM [employer] HISTORICAL RESULTS Neut % 73.9 37.0 - 85.0 % 04/01/2017 7:41 AM [employer] HISTORICAL RESULTS Immature Gran % 0.2 0.0 - 3.0 % 04/01/2017 7:41 AM [employer] HISTORICAL RESULTS Lymph % 18.7 5.0 - 45.0 % 04/01/2017 7:41 AM [employer] HISTORICAL RESULTS Franklin % 6.6 3.0 - 15.0 % 04/01/2017 7:41 AM [employer] HISTORICAL RESULTS Eos % 0.4 0.0 - 7.0 % 04/01/2017 7:41 AM [employer] HISTORICAL RESULTS Baso % 0.2 0.0 - 2.0 % 04/01/2017 7:41 AM [employer] HISTORICAL RESULTS Absolute Neuts (auto) 6.6 1.7 - 8.7 x10 3/ul 04/01/2017 7:41 AM [employer] HISTORICAL RESULTS Immature Gran # 0.0 0.0 - 0.3 x10 3/ul 04/01/2017 7:41 AM [employer] HISTORICAL RESULTS Absolute Lymphs (auto) 1.7 0.2 - 4.6 x10 3/ul 04/01/2017 7:41 AM [facility] [employer] HISTORICAL RESULTS Absolute Monos (auto) 0.6 0.1 - 1.5 x10 3/ul 04/01/2017 7:41 AM [facility] [employer] HISTORICAL RESULTS Absolute Eos (auto) 0.0 0.0 - 0.7 x10 3/ul 04/01/2017 7:41 AM [facility] [employer] HISTORICAL RESULTS Absolute Basos (auto) 0.0 0.0 - 0.2 x10 3/ul 04/01/2017 7:41 AM [facility] [employer] HISTORICAL RESULTS Nucleat RBC Rel Count 0.0 0 - 3 #/100WBC 04/01/2017 7:41 AM [facility] [employer] HISTORICAL RESULTS Absolute Nucleated RBC 0.00 x10 3/ul 04/01/2017 7:41 AM [facility] [employer] HISTORICAL RESULTS Absolute Neutrophils 6600 200 - 8000 /ul 04/01/2017 7:41 AM [facility] [employer] HISTORICAL RESULTS 04/01/2017 7:27 AM [facility] 04/01/2017 7:33 AM [facility] us Lauren Wolf NP LAB BLOOD ORDERABLES Final Result [employer] HISTORICAL RESULTS documented in this encounter Visit Diagnoses Diagnosis Crohn's disease of small intestine with intestinal obstruction (CMS/HCC) (HCC) Essential (primary) hypertension Unspecified essential hypertension Gastro-esophageal reflux disease without esophagitis Cigarette nicotine dependence, uncomplicated 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
--- OUTSIDE RECORDS SUMMARY | 2024-06-06 03:29 | XMS_ITS | Encounter Summary ---
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 Role Phone Unavailable Primary Care Provider Unavailabl e Encounter Details Date Type Department Care Team (Latest Contact Info) Description 11/27/2015 3:21 PM CDT - 11/30/2015 3:05 PM CDT Hospital Encounter [facility] Hemant Lopez MD [address] [place] [id number] Crohn's disease of large intestine with intestinal obstruction (CMS/HCC); Essential (primary) hypertension; Cigarette nicotine dependence, uncomplicated; Anemia; [facility] [place] [facility] (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 Social History Tobacco Use Types Packs/Day Years Used Date Smoking Tobacco: Never Assessed Sex and Gender Information Value Date Recorded Sex Assigned at Not on file Legal Sex Male 12:12 PM CARGO [employer] Gender Identity Not on file Sexual Orientation Not on file documented as of this encounter Last Filed Vital Signs Vital Sign Reading Time Taken Comments Blood Pressure 164/81 11/30/2015 7:51 AM CDT Pulse 55 11/30/2015 7:51 AM CDT Temperature 36.4 ??C (97.5 ??F) 11/30/2015 7:51 AM CD T Respiratory Rate - - Oxygen Saturation 100% 11/30/2015 7:51 AM CDT Inhaled Oxygen Concentration - - Weight 66.2 kg (146 lb) 11/30/2015 7:51 AM CDT Height 167.6 cm (5' 6 ) 11/30/2015 7:51 AM CDT Body Mass Index 23.57 11/30/2015 7:51 AM CDT documented in this encounter Plan of Treatment Not on file documented as of this encounter Procedures Procedure Name Priority Date/Time Associated Diagnosis Comments CBC WITH AUTO DIFFERENTIAL Routine 11/30/2015 6:57 AM CDT BASIC METABOLIC PANEL Routine 11/30/2015 6:57 AM CDT IRON PROFILE W/ IBC Routine 11/28/2015 2 :12 PM CDT FOLATE Routine 11/28/2015 2:12 PM CDT VITAMIN B12 Routine 11/28/2015 2:12 PM CDT RETICULOCYTES Routine 11/28/2015 2:11 PM CDT CBC WITH AUTO DIFFERENTIAL Routine 11/28/2015 8:36 AM CDT BASIC METABOLIC PANEL Routine 11/28/2015 8:36 AM CDT XR ABDOMEN 2 VIEWS W CHEST 1 VIEW Routine 11/28/2015 12:00 AM CDT URINALYSIS Routine 11/27/2015 12:26 PM CDT CBC WITH AUTO DIFFERENTIAL Routine 11/27/2015 12:03 PM CDT LIPASE Routine 11/27/2015 12:03 PM CDT COMPREHENSIVE METABOLIC PANEL Routine 11/27/2015 12:[address] ABDOMEN PELVIS W CONTRAST Routine 11/27/2015 11:31 AM CDT XR ABDOMEN AP 1 VIEW Routine 11/27/2015 12:00 AM CDT documented in this encounter Results * (ABNORMAL) CBC with auto differential (11/30/2015 6:57 AM CDT) WBC 7.4 4.6 - 10.2 x10 3/ul 11/30/2015 7:28 AM CDT [facility] HISTORICAL RESULTS RBC 3.40(L) 4.11 - 5.71 x10 6/ul 11/30/2015 7:28 AM CDT [facility] Hemoglobin 11.3(L) 13.0 - 17.0 g/dl 11/30/2015 7:28 AM CDT [facility] Hct 32.7(L) 38.2 - 48.5 % 11/30/2015 7:28 AM CDT [facility] RESULTS MCV 96.2 80.0 - 97.0 fl 11/30/2015 7:28 AM CDT [facility] RESULTS MCH 33.2(H) 27.0 - 31.2 pg 11/30/2015 7:28 AM CDT [facility] RESULTS MCHC 34.6 31.8 - 35.4 g/dl 11/30/2015 7:28 AM T [facility] HIST[facility] RESULTS RDW 14.1 11.6 - 14.8 % 11/30/2015 7:28 AM CDT [facility] RES[facility] Plt Count 235 124 - 400 x10 3/ul 11/30/2015 7:28 AM T [facility] H[facility]OR[facility] RESULTS MPV 8.5 7.4 - 10.4 fl 11/30/2015 7:28 AM CDT [facility] RESULTS Neut % 71.0 37.0 - 85.0 % 11/30/2015 7:28 AM [facility]ISTOR[facility] RESULTS Immature Gran % 0.5 0.0 - 3.0 % 11/30/2015 7:28 AM CDT [facility] RESULTS Lymph % 21.2 5.0 - 45.0 % 11/30/2015 7:28 AM CDT [facility] HISTORICAL RESULTS [place] % 7.2 3.0 - 15.0 % 11/30/2015 7:28 AM CDT [facility] RESULTS Eos % 0.0 0.0 - 7.0 % 11/30/2015 7:28 AM CDT [facility] RESULTS Baso % 0.1 0.0 - 2.0 % 11/30/2015 7:28 AM CDT [facility] RESULTS Absolute Neuts (auto) 5.2 1.7 - 8.7 x10 3/ul 11/30/2015 7:28 AM T [facility] HISTORICAL RESULTS Immature Gran # 0.0 0.0 - 0.3 x10 3/ul 11/30/2015 7:28 AM T [facility] HISTORICAL RESULTS Absolute Lymphs (auto) 1.6 0.2 - 4.6 x10 3/ul 11/30/2015 7:28 AM T [facility] HISTORICAL RESULTS Absolute Monos (auto) 0.5 0.1 - 1.5 x10 3/ul 11/30/2015 7:28 AM T [facility] HISTORICAL RESULTS Absolute Eos (auto) 0.0 0.0 - 0.7 x10 3/ul Absolute Basos (auto) 0.0 0.0 - 0.2 x10 3/ul 11/30/2015 6:57 AM CDT 11/30/2015 7:24 AM CDT Deanne Ramos MD LAB BLOOD ORDERABLES F inal Result [facility] HISTORICAL RESULTS * (ABNORMAL) Basic metabolic panel (11/30/2015 6:57 AM CDT) Sodium 141 135 - 145 mmol/L 11/30/2015 7:47 AM T [facility] HISTORICAL RESULTS Potassium 4.0 3.3 - 5.1 mmol/L Chloride 104 96 - 108 mmol/L 11/30/2015 7:47 AM T [facility] HISTORICAL RESULTS Carbon Dioxide 27 22 - 32 mmol/L Anion Gap 10 7 - 16 11/30/2015 7:47 AM T [facility] HISTORICAL RESULTS Glucose 111(H) 70 - 100 mg/dL 11/30/2015 7:47 AM T [facility] HISTORICAL RESULTS BUN 12 6 - 20 mg/dL Creatinine 0.9 0.5 [...] @ Est GFR (Cockcroft-G) 90 ml/MIN Calcium 8.2(L) 8.6 - 10.0 mg/dL 11/30/2015 6:57 AM CDT 11/30/2015 7:24 AM CDT us Deanne Ramos MD LAB BLOOD ORDERABLES F inal Result [facility] HISTORICAL RESULTS * (ABNORMAL) Vitamin B12 (11/28/2015 2:12 PM CDT) Vitamin B12 107(L) 211 - 946 pg/mL 11/28/2015 3:18 PM CDT [facility] HISTORICAL RESULTS Comment:FASTING IS RECOMMEND ED 11/28/2015 2:12 PM CDT 11/28/2015 2:21 PM CDT Mara Ohara DYE ROOM HELPER LAB BLOOD ORDERABLES Final Result Performing Organization Address [facility] Co de Phone Number [facility] HISTORICAL RESULTS * Iron profile w/ IBC (11/28/2015 2:12 PM CDT) Iron 71 59 - 158 ug/dL 11/28/2015 2:59 PM CDT [facility] HISTORICAL RESULTS Comment:Fasting specimen pre ferred TIBC 269 228 - 428 ug/dL 11/28/2015 2:59 PM CDT [facility] HISTORICAL RESULTS Transferrin % Sat 26 20 - 50 % 11/28/2015 2:59 PM CDT [facility] HISTORICAL RESULTS 11/28/2015 2:1 2 PM CDT 11/28/2015 2:21 PM CDT Mara Ohara DYE ROOM HELPER LAB BLOOD ORDERABLES Final Result Performing Organization Address [facility] de Phone Number [facility] HISTORICAL RESULTS * Folate (11/28/2015 2:12 PM CDT) Folate 18.7 4.8 - 24.2 ng/mL 11/28/2015 3:18 PM CDT [facility] HISTORICAL RESULTS Comment: New Reference Range in use 11/23/15: Folate has been standardized against the WHO International Standard NIBSC code: 03/178 Fasting suggested. 11/28/2015 2:12 PM CDT 11/28/2015 2:21 PM CDT Mara Ohara DYE ROOM HELPER LAB BLOOD ORDERABLES Final Result Performing Organization Address [facility] de Phone Number [facility] HISTORICAL RESULTS * (ABNORMAL) Reticulocyte Count (11/28/2015 2:11 PM CDT) Pathologist [facility] Percent Retic 0.9 0.5 - 1.5 % 11/28/2015 2:28 PM CDT [facility] HISTORICAL RESULTS Reticulocyte # 0.04 x10 6/ul 11/28/2015 2:28 PM CDT [facility] HISTORICAL RESULTS Immature Retic Fraction 9.7 % 11/28/2015 2:28 PM CDT [facility] HISTORICAL RESULTS Retic Hgb Equivalent 40.7(H) 28.0 - 35.5 pg 11/28/2015 2:28 PM T [facility] HISTORICAL RESULTS 11/28/2015 2:11 PM CDT 11/28/2015 2:21 PM CDT Mraa Ohara NP LAB BLOOD ORDERABLES Final Result Performing Organization Address [facility] de Phone Number [facility] HISTORICAL RESULTS * (ABNORMAL) CBC with auto differential (11/28/2015 8:36 AM CDT) Pathologist [facility] WBC 7.7 4.6 - 10.2 x10 3/ul 11/28/2015 9:06 AM T [facility] HISTORICAL RESULTS RBC 3.88(L) 4.11 - 5.71 x10 6/ul 11/28/2015 9:06 AM T [facility] HISTORICAL RESULTS Hemoglobin 12.8(L) 13.0 - 17.0 g/dl Hct 37.1(L) 38.2 - 48.5 % 11/28/2015 9:06 AM T [facility] HISTORICAL RESULTS MCV 95.6 80.0 - 97.0 fl MCH 33.0(H) 27.0 - 31.2 pg 11/28/2015 9:06 AM T [facility] HISTORICAL RESULTS MCHC 34.5 31.8 - 35.4 g/dl RDW 13.7 11.6 - 14.8 % Plt Count 268 124 - 400 x10 3/ul MPV 7.9 7.4 - 10.4 fl Neut % 75.5 37.0 - 85.0 % Immature Gran % 0.3 0.0 - 3.0 % Lymph % 17.5 5.0 - 45.0 % [place] % 6.5 3.0 - 15.0 % Eos % 0.1 0.0 - 7.0 % Baso % 0.1 0.0 - 2.0 % Absolute Neuts (auto) 5.8 1.7 - 8.7 x10 3/ul Immature Gran # 0.0 0.0 - 0.3 x10 3/ul Absolute Lymphs (auto) 1.4 0.2 - 4.6 x10 3/ul Absolute Monos (auto) 0.5 0.1 - 1.5 x10 3/ul Absolute Eos (auto) 0.0 0.0 - 0.7 x10 3/ul Absolute Basos (auto) 0.0 0.0 - 0.2 x10 3/ul 11/28/2015 8:36 AM CDT 11/28/2015 8:59 AM CDT us Hemant Lopez MD LAB BLOOD ORDERABLES Final Result [facility] HISTORICAL RESULTS * (ABNORMAL) Basic metabolic panel (11/28/2015 8:36 AM CDT) Sodium 141 135 - 145 mmol/L 11/28/2015 9:36 AM T [facility] HISTORICAL RESULTS Potassium 3.5 3.3 - 5.1 mmol/L Chloride 103 96 - 108 mmol/L Carbon Dioxide 27 22 - 32 mmol/L Anion Gap 11 7 - 16 Glucose 104(H) 70 - 100 mg/dL 11/28/2015 9:36 AM T [facility] HISTORICAL RESULTS BUN 9 6 - 20 mg/dL Creatinine [...] dialysis @ Est GFR (Cockcroft-G) 90 ml/MIN 11/28/2015 9:36 AM CDT [facility] RESULTS Calcium 8.8 8.6 - 10.0 mg/dL 11/28/2015 9:36 AM CDT [facility]OR[facility] RESULTS 11/28/2015 8:36 AM CDT 11/28/2015 8:59 AM CDT us Hemant Lopez MD LAB BLOOD ORDERABLES Final Result [facility] HISTORICAL RESULTS * XR Abdomen 2 Views W Chest 1 View (11/28/2015 12:00 AM CDT) Anatomical Region Laterality Modality Body, Abdomen N/A Radiographic Annita ging 11/28/2015 Impressions 11/28/2015 8:45 AM CDT ?? No acute cardiopulmonary process Unremarkable bowel gas pattern. ??Please note multiple dilated loops of small bowel on the recent CT scan were fluid-filled which tend to be occult on radiograph. THIS IS AN ELECTRONICALLY VERIFIED REPORT 11/28/2015 8:42 AM: ??Coy Alcala M.D. ?? Coy Alcala M.D. JA:flory 08:42 AM 08:42 AM AMB [EOD] Narrative 11/28/2015 8:45 AM CDT EXAMINATION: ??OBSTRUCTION SERIES 3 VIEW HISTORY: ??Chest history of Crohn disease with small bowel obstruction on CT dated November 27, 2015 for follow-up TECHNIQUE: ??N/A COMPARISON: ??Radiograph dated November 27, 2015. ??CT dated November 27, 2015 FINDINGS: ?? The cardiac silhouette is within normal limits. ??There is no focal consolidation, mass or pneumothorax. A nasogastric tube is present with tip superimposed upon distal pylorus of the stomach On the upright radiograph, there is no evidence of free air under hemidiaphragm. ??No dynamic air-fluid levels are seen. On the supine radiograph, no disproportionally dilated loops of large or small bowel was seen. ??Air is present throughout the colon Soft tissues and osseous structures demonstrate no acute Procedure Note Provider, MD David - 10/10/2020 EXAMINATION: OBSTRUCTION SERIES 3 VIEW HISTORY: Chest history of Crohn disease with small bowel obstruction onCT dated November 27, 2015 for follow-up TECHNIQUE: N/A COMPARISON: Radiograph dated November 27, 2015. CT dated November 27, 2015 FINDINGS: The cardiac silhouette is within normal limits. There is no focal consolidation, mass or pneumothorax. A nasogastric tube is present with tip superimposed upon distal pylorus ofthe stomach On the upright radiograph, there is no evidence of free air under hemidiaphragm. No dynamic air-fluid levels are seen. On the supine radiograph, no disproportionally dilated loops of large orsmall bowel was seen. Air is present throughout the colon Soft tissues and osseous structures demonstrate no acute IMPRESSION: No acute cardiopulmonary process Unremarkable bowel gas pattern. Please note multiple dilated loops ofsmall bowel on the recent CT scan were fluid-filled which tend to be occult on radiograph. THIS IS AN ELECTRONICALLY VERIFIED REPORT 11/28/2015 8:42 AM: Coy Alcala M.D. Coy Alcala M.D. JA:flory 08:42 AM 08:42 AM AMB [EOD] us Henry Douglass MD IMG XR PROCEDURES Final Re sult * (ABNORMAL) Urinalysis (11/27/2015 12:26 PM CDT) Ur Collection Type CLEAN CATCH 11/27/2015 12:48 PM T [facility] HISTORICAL RESULTS Urine Color YELLOW YELLOW 11/27/2015 12:48 PM T [facility] HISTORICAL RESULTS Urine Clarity CLEAR CLEAR 11/27/2015 12:48 PM T [facility] HISTORICAL RESULTS Urine Glucose (UA) NORMAL NORMAL mg/dL 11/27/2015 12:48 PM T [facility] HISTORICAL RESULTS Urine Bilirubin NEGATIVE NEGATIVE mg/dl 11/27/2015 12:48 PM T [facility] HISTORICAL RESULTS Urine Ketones NEGATIVE NEGATIVE mg/dL 11/27/2015 12:48 PM T [facility] HISTORICAL RESULTS Ur Specific [place] 1.020 1.005 - 1.025 11/27/2015 12:48 PM T [facility] HISTORICAL RESULTS Urine Blood 0.03(H) NEGATIVE mg/dl 11/27/2015 12:48 PM T [facility] HISTORICAL RESULTS Urine pH 5.0 5.0 - 8.0 11/27/2015 12:48 PM T [facility] HISTORICAL RESULTS Urine Protein NEGATIVE NEGATIVE mg/dL Urine Urobilinogen NORMAL NORMAL mg/dL 11/27/2015 12:48 PM T [facility] HISTORICAL RESULTS Urine Nitrite NEGATIVE NEGATIVE Ur Leukocyte Esterase NEGATIVE NEGATIVE Natalio/ul Ur Microscopic Review Not Indicated 11/27/2015 12:2 6 PM CDT 11/27/2015 12:30 PM CDT us Nadiya Lowe LAB URINE ORDERABLES Final Resul t [facility] HISTORICAL RESULTS * Lipase (11/27/2015 12:03 PM CDT) Lipase 30 13 - 60 U/L 11/27/2015 1:42 PM T [facility] HISTORICAL RESULTS 11/27/2015 12:0 3 PM CDT 11/27/2015 12:05 PM CDT Nadiya Lowe LAB BLOOD ORDERABLES Final Resul t [facility] HISTORICAL RESULTS * (ABNORMAL) Comprehensive metabolic panel (11/27/2015 12:03 PM CDT) Pathologist [facility] Sodium 138 135 - 145 mmol/L 11/27/2015 12:28 PM T [facility] HISTORICAL RESULTS Potassium 3.9 3.3 - 5.1 mmol/L Chloride 106 96 - 108 mmol/L 11/27/2015 12:28 PM T [facility] HISTORICAL RESULTS Carbon Dioxide 22 22 - 32 mmol/L Anion Gap 10 7 - 16 Glucose 103(H) 70 - 100 mg/dL BUN 8 6 [...] @ Est GFR (Cockcroft-G) 90 ml/MIN Calcium 8.9 8.6 - 10.0 mg/dL Total Protein 7.0 6.4 - 8.3 g/dL Albumin 3.9 3.5 - 5.2 g/dL Globulin 3.1 2.3 - 3.5 gm/dL Albumin/Globulin Ratio 1.3 1.1 - 1.8 Total Bilirubin 0.3 0.0 - 1.2 mg/dL AST 15 0 - 40 U/L ALT 12 0 - 41 U/L Alkaline Phosphatase 63 40 - 129 U/L 11/27/2015 12:0 3 PM CDT 11/27/2015 12:05 PM CDT us Nadiya Lowe LAB BLOOD ORDERABLES Final Resul t [facility] HISTORICAL RESULTS * (ABNORMAL) CBC with auto differential (11/27/2015 12:03 PM CDT) WBC 8.1 4.6 - 10.2 x10 3/ul 11/27/2015 12:09 PM CDT [facility] [employer] HISTORICAL RESULTS RBC 4.11 4.11 - 5.71 x10 6/ul 11/27/2015 12:09 PM CDT [facility] [employer] HISTORICAL RESULTS Hemoglobin 13.5 13.0 - 17.0 g/dl 11/27/2015 12:09 PM CDT [facility] RESULTS Hct 39.6 38.2 - 48.5 % 11/27/2015 12:09 PM CDT [facility]OR[facility] RESULTS MCV 96.4 80.0 - 97.0 fl 11/27/2015 12:09 PM CDT [facility] H[facility]OR[facility] RESULTS MCH 32.8(H) 27.0 - 31.2 pg 11/27/2015 12:09 PM CDT [facility] HISTOR[facility] RESULTS MCHC 34.1 31.8 - 35.4 g/dl 11/27/2015 12:09 PM CDT [facility] HISTORICAL RESULTS RDW 14.0 11.6 - 14.8 % 11/27/2015 12:09 PM CDT [facility] H[facility]OR[facility] RESULTS Plt Count 342 124 - 400 x10 3/ul 11/27/2015 12:09 PM CDT [facility] HISTOR[facility] RESULTS MPV 7.7 7.4 - 10.4 fl 11/27/2015 12:09 PM CDT [facility] [employer] HISTORICAL RESULTS Neut % 74.2 37.0 - 85.0 % 11/27/2015 12:09 PM CDT [facility]ULTS Immature Gran % 0.2 0.0 - 3.0 % 11/27/2015 12:09 PM CDT [facility]OR[facility] RESULTS Lymph % 18.9 5.0 - 45.0 % 11/27/2015 12:09 PM CDT [facility] [employer] [facility] HISTORICAL RESULTS [place] % 6.0 3.0 - 15.0 % 11/27/2015 12:09 PM T [facility] HISTORICAL RESULTS Eos % 0.5 0.0 - 7.0 % 11/27/2015 12:09 PM T [facility] HISTORICAL RESULTS Baso % 0.2 0.0 - 2.0 % 11/27/2015 12:09 PM T [facility] HISTORICAL RESULTS Absolute Neuts (auto) 6.0 1.7 - 8.7 x10 3/ul Immature Gran # 0.0 0.0 - 0.3 x10 3/ul Absolute Lymphs (auto) 1.5 0.2 - 4.6 x10 3/ul 11/27/2015 12:09 PM T [facility] HISTORICAL RESULTS Absolute Monos (auto) 0.5 0.1 - 1.5 x10 3/ul Absolute Eos (auto) 0.0 0.0 - 0.7 x10 3/ul Absolute Basos (auto) 0.0 0.0 - 0.2 x10 3/ul 11/27/2015 12:09 PM T [facility] HISTORICAL RESULTS 11/27/2015 12:0 3 PM CDT 11/27/2015 12:05 PM CDT us Nadiya Lowe LAB BLOOD ORDERABLES Final Resul t [facility] HISTORICAL RESULTS * CT Abdomen Pelvis W Contrast (11/27/2015 11:31 AM CDT) Anatomical Region Laterality Modality Body N/A Computed Tomogra phy 11/27/2015 11:3 1 AM CDT Impressions 11/27/2015 2:28 PM CDT Mid small bowel obstruction secondary to significant circumferential thickening of an inflamed loop of small bowel within the right mid abdomen. ?? This has a very similar appearance to that seen on the previous CT from 09/04/2015. ??This is most likely related to the patient's reported history of Crohn disease. Automated exposure control was used as a dose optimization technique for this examination. THIS IS AN ELECTRONICALLY VERIFIED REPORT 11/27/2015 2:24 PM: ??Bob Arenas M.D. ?? Bob Arenas M.D. MD: 02:24 PM 02:24 PM DON [EOD] Narrative 11/27/2015 2:28 PM CDT EXAMINATION: ??CT abdomen and pelvis with IV contrast HISTORY: ??50-year-old male with history of Crohn's disease and intestinal retraction presents with 1 day history of lower abdominal pain with associated nausea/vomiting. TECHNIQUE: ??CT of the abdomen and pelvis was performed with iv contrast. ??100 mL of Omnipaque 350 was instilled intravenously into the right forearm without complications. COMPARISON: ??CT abdomen/pelvis 09/04/2015 FINDINGS: ?? The imaged lung bases demonstrate minimal subsegmental atelectasis. Splenic calcified granulomas are present. ??The liver, gallbladder, pancreas, adrenals, and kidneys appear unremarkable. There is prominent diffuse wall thickening of the stomach, possibly related to poor distention. ??There is marked wall thickening/enhancement of a loop of inflamed mid small bowel within the right mid abdomen. ??This is very similar in appearance to that seen on the previous CT from 09/04/2015. ??Resultant stricture/narrowing are again observed at this location, which is adjacent to a prior surgical site. ??Again noted is a dilated loop of small bowel within the right upper abdomen, likely located proximal to the area of inflammation/stricture. ??This dilated bowel loop is fluid-filled, with wall enhancement. ??The colon is relatively decompressed throughout. No free fluid or free air is seen. ??No size significant lymphadenopathy is identified. ??The urinary bladder and prostate appear grossly unremarkable. The abdominal aorta is normal in caliber. ??There is mild calcific atherosclerosis involving the aorta and several of its branching vessels. ?? Proximal left femur ORIF hardware is partially imaged. ??No acute appearing osseous abnormality is seen. Procedure Note Provider, MD David - 10/10/2020 EXAMINATION: CT abdomen and pelvis with IV contrast HISTORY: 50-year-old male with history of Crohn's disease and intestinal retraction presents with 1 day history of lower abdominal pain withassociated nausea/vomiting. TECHNIQUE: CT of the abdomen and pelvis was performed with iv contrast.100 mL of Omnipaque 350 was instilled intravenously into the right forearmwithout complications. COMPARISON: CT abdomen/pelvis 09/04/2015 FINDINGS: The imaged lung bases demonstrate minimal subsegmental atelectasis. Splenic calcified granulomas are present. The liver, gallbladder,pancreas, adrenals, and kidneys appear unremarkable. There is prominent diffuse wall thickening of the stomach, possiblyrelated to poor distention. There is marked wall thickening/enhancement of a loop of inflamed mid small bowel within the right mid abdomen. This is verysimilar in appearance to that seen on the previous CT from 09/04/2015. Resultant stricture/narrowing are again observed at this location, which is adjacentto a prior surgical site. Again noted is a dilated loop of small bowelwithin the right upper abdomen, likely located proximal to the area of inflammation/stricture. This dilated bowel loop is fluid-filled, withwall enhancement. The colon is relatively decompressed throughout. No free fluid or free air is seen. No size significant lymphadenopathy is identified. The urinary bladder and prostate appear grosslyunremarkable. The abdominal aorta is normal in caliber. There is mild calcific atherosclerosis involving the aorta and several of its branching vessels. Proximal left femur ORIF hardware is partially imaged. No acute appearing osseous abnormality is seen. IMPRESSION: Mid small bowel obstruction secondary to significant circumferential thickening of an inflamed loop of small bowel within the right midabdomen. This has a very similar appearance to that seen on the previous CT from 09/04/2015. This is most likely related to the patient's reported historyof Crohn disease. Automated exposure control was used as a dose optimization technique forthis examination. THIS IS AN ELECTRONICALLY VERIFIED REPORT 11/27/2015 2:24 PM: Bob Arenas M.D. Bob Arenas M.D. : 02:24 PM 02:24 PM MARIA E [EOD] us Nadiya Lowe IMG CT PROCEDURES Final Result * XR Abdomen Ap 1 Vw (11/27/2015 12:00 AM CDT) Anatomical Region Laterality Modality Body, Abdomen N/A Radiographic Annita ging 11/27/2015 Impressions 11/27/2015 4:48 PM CDT ?? 1. ??Tip of the nasogastric tube projects over the distal stomach. 2. ??Mild prominence of a loop of small bowel in the midabdomen. THIS IS AN ELECTRONICALLY VERIFIED REPORT 11/27/2015 4:45 PM: ??Franc Boyd M.D. ?? Franc Boyd M.D. MJ:daniel 04:45 PM 04:45 PM BM [EOD] Narrative 11/27/2015 4:48 PM CDT EXAMINATION: ??Single view of the abdomen. HISTORY: ??Nasogastric tube placed. COMPARISON: ??[09/05/2015. FINDINGS: ??A nasogastric tube is seen with the tip towards the tip overlying the distal stomach. Mild prominence of a loop of small bowel of the mid abdomen. ??No free air. ??No organomegaly. ??Deep pelvis cut from view. ??No basilar infiltrate Procedure Note Provider, David, - 10/10/2020 EXAMINATION: Single view of the abdomen. HISTORY: Nasogastric tube placed. COMPARISON: [09/05/2015. FINDINGS: A nasogastric tube is seen with the tip towards the tipoverlying the distal stomach. Mild prominence of a loop of small bowel of the mid abdomen. No free air. No organomegaly. Deep pelvis cut from view. No basilar infiltrate IMPRESSION: 1. Tip of the nasogastric tube projects over the distal stomach. 2. Mild prominence of a loop of small bowel in the midabdomen. THIS IS AN ELECTRONICALLY VERIFIED REPORT 11/27/2015 4:45 PM: Franc Boyd M.D. Franc Boyd M.D. MJ:daniel 04:45 PM 04:45 PM BM [EOD] Perla Whittaker MD IMG XR PROCEDURES Final Result documented in this encounter Visit Diagnoses Diagnosis Crohn's disease of large intestine with intestinal obstruction (CMS/HCC) (HCC) Essential (primary) hypertension Unspecified essential hypertension Cigarette nicotine dependence, uncomplicated Anemia Unspecified anemia Other [place] [facility] (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 documented in this encounter
--- OUTSIDE RECORDS SUMMARY | 2024-06-06 03:29 | XMS_ITS | Encounter Summary ---
Author Organization [facility] Healthcare Address [address] [place] [address] Care Team Providers Care Pastoral Worker Name Role Phone Unavailable Primary Care Provider Unavailabl e Encounter Details Date Type Department Care Team (Latest Contact Info) Description 07/14/2015 6:51 PM LABORER DRIVER - 07/18/2015 2:10 PM LABORER DRIVER Hospital Encounter [facility] Hemant Lopez MD [address] [place] [id number] Crohn's disease of large intestine without complication (CMS/HCC); Essential (primary) hypertension; Gastro-esophageal reflux disease without esophagitis; Tobacco use; Tobacco abuse counseling Social History Tobacco Use Types Packs/Day Years Used Date Smoking Tobacco: Never Assessed Sex and Gender Information Value Date Recorded Sex Assigned at Not on file Legal Sex Male 12:12 PM LABORER DRIVER Gender Identity Not on file Sexual Orientation Not on file documented as of this encounter Last Filed Vital Signs Vital Sign Reading Time Taken Comments Blood Pressure 167/92 07/17/2015 1:31 PM LABORER DRIVER Pulse 57 07/17/2015 1:31 PM LABORER DRIVER Temperature 36.8 ??C (98.2 ??F) 07/17/2015 1:31 PM CS T Respiratory Rate - - Oxygen Saturation 98% 07/17/2015 1:31 PM LABORER DRIVER Inhaled Oxygen Concentration - - Weight 64.9 kg (143 lb) 07/17/2015 1:31 PM LABORER DRIVER Height 167.6 cm (5' 6 ) 07/17/2015 1:31 PM LABORER DRIVER Body Mass Index 23.08 07/17/2015 1:31 PM LABORER DRIVER documented in this encounter Plan of Treatment Not on file documented as of this encounter Procedures Procedure Name Priority Date/Time Associated Diagnosis Comments CBC WITH AUTO DIFFERENTIAL Routine 07/18/2015 6:10 AM LABORER DRIVER BASIC METABOLIC PANEL Routine 07/18/2015 6:10 AM LABORER DRIVER CBC WITH AUTO DIFFERENTIAL Routine 07/15/2015 7:29 AM LABORER DRIVER BASIC METABOLIC PANEL Routine 07/15/2015 7:29 AM LABORER DRIVER URINALYSIS Routine 07/14/2015 6:17 PM LABORER DRIVER CBC WITH AUTO DIFFERENTIAL Routine 07/14/2015 5:40 PM LABORER DRIVER LIPASE Routine 07/14/2015 5:40 PM LABORER DRIVER AMYLASE Routine 07/14/2015 5:40 PM LABORER DRIVER COMPREHENSIVE METABOLIC PANEL Routine 07/14/2015 5:[address] ABDOMEN PELVIS WO CONTRAST Routine 07/14/2015 12:00 AM LABORER DRIVER documented in this encounter Results * (ABNORMAL) CBC with auto differential (07/18/2015 6:10 AM LABORER DRIVER) WBC 8.7 4.6 - 10.2 x10 3/ul 07/18/2015 7:04 AM [employer] HISTORICAL RESULTS Comment:Results reviewed RBC 4.15 4.11 - 5.71 x10 6/ul 07/18/2015 7:04 AM [employer] HISTORICAL RESULTS Hemoglobin 13.2 13.0 - 17.0 g/dl 07/18/2015 7:04 AM [employer] HISTORICAL RESULTS Hct 37.9(L) 38.2 - 48.5 % 07/18/2015 7:04 AM [employer] HISTORICAL RESULTS MCV 91.3 80.0 - 97.0 fl 07/18/2015 7:04 AM [employer] HISTORICAL RESULTS MCH 31.8(H) 27.0 - 31.2 pg MCHC 34.8 31.8 - 35.4 g/dl 07/18/2015 7:04 AM LABORER DRIVER [facility] HISTORICAL RESULTS RDW 13.8 11.6 - 14.8 % Plt Count 301 124 - 400 x10 3/ul MPV 8.3 7.4 - 10.4 fl Differential Method AUTOMATED DIFF --------- -- Neut % 81.5 37.0 - 85.0 % 07/18/2015 7:04 AM LABORER DRIVER [facility] HISTORICAL RESULTS Immature Gran % 0.5 0.0 - 3.0 % 07/18/2015 7:04 AM [employer] [facility] HISTORICAL RESULTS Lymph % 13.3 5.0 - 45.0 % 07/18/2015 7:04 AM [employer] [facility] HISTORICAL RESULTS [place] % 4.6 3.0 - 15.0 % 07/18/2015 7:04 AM [employer] [facility] HISTORICAL RESULTS Eos % 0.0 0.0 - 7.0 % 07/18/2015 7:04 AM [facility] Baso % 0.1 0.0 - 2.0 % ABSOLUTE COUNTS ABSOLUTE COUNTS --------- -- 07/18/2015 7:04 AM [employer] [facility] HISTORICAL RESULTS Absolute Neuts (auto) 7.1 1.7 - 8.7 x10 3/ul 07/18/2015 7:04 AM [employer] [facility] [facility] Immature Gran # 0.0 0.0 - 0.3 x10 3/ul 07/18/2015 7:04 AM LABORER DRIVER [facility] HISTORICAL RESULTS Absolute Lymphs (auto) 1.2 0.2 - 4.6 x10 3/ul 07/18/2015 7:04 AM [employer] [facility] [place] [facility] Absolute Monos (auto) 0.4 0.1 - 1.5 x10 3/ul 07/18/2015 7:04 AM [facility] [employer] HISTORICAL RESULTS Absolute Eos (auto) 0.0 0.0 - 0.7 x10 3/ul 07/18/2015 7:04 AM LABORER DRIVER [facility] [place] [facility] Absolute Basos (auto) 0.0 0.0 - 0.2 x10 3/ul 07/18/2015 7:04 AM [facility] [place] [facility] HISTORICAL RESULTS 07/18/2015 6:10 AM LABORER DRIVER 07/18/2015 6:42 AM LABORER DRIVER us Deanne Ramos MD LAB BLOOD ORDERABLES F inal Result [facility] [place] [facility] HISTORICAL RESULTS * (ABNORMAL) Basic metabolic panel (07/18/2015 6:10 AM LABORER DRIVER) Sodium 137 135 - 145 mmol/L 07/18/2015 7:13 AM [facility] [employer] HISTORICAL RESULTS Potassium 3.7 3.3 - 5.1 mmol/L 07/18/2015 7:13 AM [facility] [facility] Chloride 96 96 - 108 mmol/L 07/18/2015 7:13 AM [facility] [employer] [facility] HISTORICAL RESULTS Carbon Dioxide 25 22 - 32 mmol/L 07/18/2015 7:13 AM [facility] [employer] [facility] HISTORICAL RESULTS Anion Gap 16 7 - 16 07/18/2015 7:13 AM [facility] [place] [facility] HISTORICAL RESULTS Glucose 108(H) 70 - 100 mg/dL 07/18/2015 7:13 AM [facility] [place] [facility] BUN 14 6 - 20 mg/dL 07/18/2015 7:13 AM [facility] [employer] [facility] HISTORICAL RESULTS Creatinine 1.1 0.5 - 1.3 mg/dL 07/18/2015 7:13 AM [facility] [place] [facility] HISTORICAL RESULTS Comment: NOTE: Estimated GFR (Cockroft-Gault) will NOT be calculated unless patient Height and Weight were entered. Also, Kidney Disease Stage (GFR) and Estimated GFR (Cockroft-Gault) will NOT be calculated if Creatinine result is <0.2. Kidney Disease Stage > 90 mL/MIN 07/18/2015 7:13 AM [facility] [place] [facility] Comment: NOTE; ??The GFR is [...] dialysis @ Est GFR (Cockcroft-G) 74 ml/MIN 07/18/2015 7:13 AM [employer] HISTORICAL RESULTS Calcium 9.0 8.6 - 10.0 mg/dL 07/18/2015 7:13 AM [employer] HISTORICAL RESULTS 07/18/2015 6:10 AM LABORER DRIVER 07/18/2015 6:42 AM LABORER DRIVER Deanne Ramos MD LAB BLOOD ORDERABLES F inal Result [employer] HISTORICAL RESULTS * (ABNORMAL) CBC with auto differential (07/15/2015 7:29 AM LABORER DRIVER) WBC 5.2 4.6 - 10.2 x10 3/ul 07/15/2015 8:09 AM [employer] HISTORICAL RESULTS Comment:Results reviewed RBC 3.71(L) 4.11 - 5.71 x10 6/ul 07/15/2015 8:09 AM [employer] HISTORICAL RESULTS Hemoglobin 12.0(L) 13.0 - 17.0 g/dl 07/15/2015 8:09 AM [employer] HISTORICAL RESULTS Hct 35.0(L) 38.2 - 48.5 % 07/15/2015 8:09 AM [employer] [facility] [place] [facility] RES[facility] MCV 94.3 80.0 - 97.0 fl 07/15/2015 8:09 AM LABORER DRIVER [facility] HISTORICAL RESULTS MCH 32.3(H) 27.0 - 31.2 pg 07/15/2015 8:09 AM [employer] [facility] [place] [facility] RES[facility] MCHC 34.3 31.8 - 35.4 g/dl 07/15/2015 8:09 AM [employer] [facility] [employer] HISTORICAL RESULTS RDW 14.2 11.6 - 14.8 % 07/15/2015 8:09 AM [employer] [facility] [place] [facility] Plt Count 261 124 - 400 x10 3/ul 07/15/2015 8:09 AM [employer] [facility] [place] [facility]OR[facility] RESULTS MPV 8.4 7.4 - 10.4 fl 07/15/2015 8:09 AM [employer] [facility] [place] [facility] Differential Method AUTOMATED DIFF --------- -- 07/15/2015 8:09 AM [employer] [facility] [place] [facility] RESULTS Neut % 84.6 37.0 - 85.0 % 07/15/2015 8:09 AM [employer] [facility] [place] [facility] RES[facility] Immature Gran % 0.2 0.0 - 3.0 % 07/15/2015 8:09 AM [employer] [facility] [place] [facility] RES[facility] Lymph % 13.1 5.0 - 45.0 % 07/15/2015 8:09 AM [employer] [facility] [place] [facility] HISTORICAL RESULTS [place] % 2.1(L) 3.0 - 15.0 % 07/15/2015 8:09 AM [employer] [facility] [employer] HISTORICAL RESULTS Eos % 0.0 0.0 - 7.0 % 07/15/2015 8:09 AM [employer] [facility] [place] [facility]OR[facility] RESULTS Baso % 0.0 0.0 - 2.0 % 07/15/2015 8:09 AM [employer] [facility] [place] [facility]ISTOR[facility] RESULTS ABSOLUTE COUNTS ABSOLUTE COUNTS --------- -- 07/15/2015 8:09 AM [employer] [facility] [place] [facility] H[facility]OR[facility] RESULTS Absolute Neuts (auto) 4.4 1.7 - 8.7 x10 3/ul 07/15/2015 8:09 AM [employer] [facility] [employer] HISTORICAL RESULTS Immature Gran # 0.0 0.0 - 0.3 x10 3/ul Absolute Lymphs (auto) 0.7 0.2 - 4.6 x10 3/ul Absolute Monos (auto) 0.1 0.1 - 1.5 x10 3/ul Absolute Eos (auto) 0.0 0.0 - 0.7 x10 3/ul 07/15/2015 8:09 AM [facility] RES[facility] Absolute Basos (auto) 0.0 0.0 - 0.2 x10 3/ul 07/15/2015 7:29 AM LABORER DRIVER 07/15/2015 7:58 AM [facility] us Nadiya Lowe LAB BLOOD ORDERABLES Final Resul t [facility] HISTORICAL RESULTS * (ABNORMAL) Basic metabolic panel (07/15/2015 7:29 AM LABORER DRIVER) Sodium 138 135 - 145 mmol/L Potassium 4.2 3.3 - 5.1 mmol/L Chloride 103 96 - 108 mmol/L Carbon Dioxide 25 22 - 32 mmol/L Anion Gap 10 7 - 16 Glucose 117(H) 70 - 100 mg/dL BUN 9 6 - 20 mg/dL Creatinine 0.9 0.5 - 1.3 mg/dL Comment: NOTE: Estimated GFR (Cockroft-Gault) will NOT be calculated unless patient Height and Weight were entered. Also, Kidney Disease Stage (GFR) and Estimated GFR (Cockroft-Gault) will NOT be calculated if Creatinine result is <0.2. Kidney Disease Stage > 90 mL/MIN 07/15/2015 8:22 AM [facility] [place] [facility] HISTORICAL RESULTS Comment: NOTE; ??The GFR is [...] dialysis @ Est GFR (Cockcroft-G) 90 ml/MIN 07/15/2015 8:22 AM [facility] HISTORICAL RESULTS Calcium 8.0(L) 8.6 - 10.0 mg/dL 07/15/2015 7:29 AM LABORER DRIVER 07/15/2015 7:58 AM LABORER DRIVER us Nadiya Lowe LAB BLOOD ORDERABLES Final Resul t [facility] HISTORICAL RESULTS * Urinalysis (07/14/2015 6:17 PM LABORER DRIVER) Ur Collection Type CLEAN CATCH Urine Color STRAW YELLOW Urine Clarity CLEAR CLEAR Urine Glucose (UA) NORMAL NORMAL mg/dL Urine Bilirubin NEGATIVE NEGATIVE mg/dl Urine Ketones NEGATIVE NEGATIVE mg/dL Ur Specific [place] 1.005 1.005 - 1.025 Urine Blood NEGATIVE NEGATIVE mg/dl Urine pH 6.0 5.0 - 8.0 Urine Protein NEGATIVE NEGATIVE mg/dL Urine Urobilinogen NORMAL NORMAL mg/dL Urine Nitrite NEGATIVE NEGATIVE Ur Leukocyte Esterase NEGATIVE NEGATIVE Natalio/ul Ur Microscopic Review Not Indicated 07/14/2015 6:17 PM LABORER DRIVER 07/14/2015 6:30 PM LABORER DRIVER us Alyssa Fernández TRANSACTIONAL ATTORNEY LAB URINE ORDERABLES Final Resu lt Performing Organization Address [facility] Co de Phone Number [facility] HISTORICAL RESULTS * Lipase (07/14/2015 5:40 PM LABORER DRIVER) Lipase 20 13 - 60 U/L 07/14/2015 5:40 PM LABORER DRIVER 07/14/2015 5:42 PM LABORER DRIVER us Alyssa Fernández NP LAB BLOOD ORDERABLES Final Resu lt [facility] HISTORICAL RESULTS * Comprehensive metabolic panel (07/14/2015 5:40 PM [facility]) [facility] Sodium 143 135 - 145 mmol/L Potassium 3.8 3.3 - 5.1 mmol/L Chloride 103 96 - 108 mmol/L Carbon Dioxide 25 22 - 32 mmol/L Anion Gap 15 7 - 16 Glucose 96 70 - 100 mg/dL BUN 7 6 - 20 mg/dL Creatinine 0.9 0.5 [...] or on dialysis @ Est GFR (Cockcroft-G) 89 ml/MIN Calcium 9.1 8.6 - 10.0 mg/dL Total Protein 7.0 6.4 - 8.3 g/dL Albumin 4.0 3.5 - 5.2 g/dL Globulin 3.0 2.3 - 3.5 gm/dL Albumin/Globulin Ratio 1.3 1.1 - 1.8 Total Bilirubin 0.4 0.0 - 1.2 mg/dL AST 16 0 - 40 U/L ALT 13 0 - 41 U/L Alkaline Phosphatase 88 40 - 129 U/L 07/14/2015 5:40 PM LABORER DRIVER 07/14/2015 5:42 PM LABORER DRIVER us Alyssa Fernández TRANSACTIONAL ATTORNEY LAB BLOOD ORDERABLES Final Resu lt [facility] HISTORICAL RESULTS * (ABNORMAL) CBC with auto differential (07/14/2015 5:40 PM LABORER DRIVER) WBC 12.7(H) 4.6 - 10.2 x10 3/ul RBC 3.97(L) 4.11 - 5.71 x10 6/ul Hemoglobin 12.5(L) 13.0 - 17.0 g/dl Hct 36.5(L) 38.2 - 48.5 % MCV 91.9 80.0 - 97.0 fl MCH 31.5(H) 27.0 - 31.2 pg MCHC 34.2 31.8 - 35.4 g/dl RDW 14.0 11.6 - 14.8 % Plt Count 276 124 - 400 x10 3/ul MPV 7.8 7.4 - 10.4 fl Differential Method AUTOMATED DIFF --------- -- Neut % 79.6 37.0 - 85.0 % Immature Gran % 0.2 0.0 - 3.0 % Lymph % 15.6 5.0 - 45.0 % [place] % 4.3 3.0 - 15.0 % Eos % 0.1 0.0 - 7.0 % Baso % 0.2 0.0 - 2.0 % ABSOLUTE COUNTS ABSOLUTE COUNTS --------- -- Absolute Neuts (auto) 10.1(H) 1.7 - 8.7 x10 3/ul Immature Gran # 0.0 0.0 - 0.3 x10 3/ul Absolute Lymphs (auto) 2.0 0.2 - 4.6 x10 3/ul Absolute Monos (auto) 0.6 0.1 - 1.5 x10 3/ul Absolute Eos (auto) 0.0 0.0 - 0.7 x10 3/ul Absolute Basos (auto) 0.0 0.0 - 0.2 x10 3/ul 07/14/2015 5:40 PM LABORER DRIVER 07/14/2015 5:42 PM LABORER DRIVER us Alyssa Fernández NP LAB BLOOD ORDERABLES Final Resu lt [facility] HISTORICAL RESULTS * (ABNORMAL) Amylase (07/14/2015 5:40 PM LABORER DRIVER) Amylase 111(H) 28 - 100 U/L 07/14/2015 5:40 PM LABORER DRIVER 07/14/2015 5:42 PM LABORER DRIVER us Alyssa Fernández TRANSACTIONAL ATTORNEY LAB BLOOD ORDERABLES Final Resu lt [facility] HISTORICAL RESULTS * CT Abdomen Pelvis WO Contrast (07/14/2015 12:00 AM LABORER DRIVER) Anatomical Region Laterality Modality Body N/A Computed Tomogra phy 07/14/2015 Impressions 07/14/2015 4:52 PM LABORER DRIVER ?? Circumferential bowel wall thickening in the right lower quadrant just inferior to the right hepatic lobe with surrounding inflammation and stranding of the small bowel mesenteric fat. ??There are some prominent mesenteric lymph nodes noted as well. ??Findings could relate to infectious, inflammatory or perhaps ischemic causes. ??No pneumatosis or portal venous gas is present at this time. THIS IS AN ELECTRONICALLY VERIFIED REPORT 07/14/2015 4:48 PM: ??Myron Jeter D.O. Myron Jeter D.O. DW:leticia 04:48 PM 04:48 PM [EOD] Narrative 07/14/2015 4:52 PM LABORER DRIVER EXAMINATION: ??CT abdomen and pelvis without contrast. HISTORY: ??Bilateral lower abdominal pain since this morning. ??History of nephrolithiasis. COMPARISON: ??CT from 10/09/2011. TECHNIQUE: ??Contiguous axial CT images of the abdomen and pelvis were obtained without contrast. ??Sagittal and coronal reformatted images were acquired and reviewed as well. FINDINGS: ??Atelectasis at the lung bases which are otherwise acutely clear. ?? Mild degenerative disc disease of the lumbar spine. ??No acute or destructive osseous abnormalities. ??Prior right hip surgery is noted. ??Likely calcified injection granuloma in the subcutaneous soft tissues of the left buttocks. ?? Normal cardiac size without effusion. ??No aortic aneurysm. ??There are some vascular calcifications in the abdomen and pelvis. The liver, gallbladder, spleen, adrenal glands, pancreas and kidneys are acutely unremarkable. ??No obstructive uropathy. ??No ureteral calculi are present. As on the prior study in 2011, there is circumferential wall thickening of the short loop of small bowel best visualized on axial image 66. ??There is stranding of the mesenteric fat adjacent to this loop of small bowel as well. ?? A short segment loop is also dilated measuring up to about 4 cm. ??The findings could relate to infectious, inflammatory or ischemic cause. ??No obvious pneumatosis or portal venous gas is appreciated. ??There are some small reactive lymph nodes in this region as well. ??No evidence of bowel obstruction at this time. Bladder is incompletely distended but otherwise normal. ??Prostate is unremarkable as are the seminal vesicles. ??Large bowel is acutely normal. ?? Anastomotic sutures noted within the transverse colon. ??No free intraperitoneal air or fluid. ??No pelvic lymphadenopathy. ??Nonspecific lymph nodes, some of which are mildly prominent, are seen within the small bowel mesentery. Procedure Note Provider, MD David - 10/10/2020 EXAMINATION: CT abdomen and pelvis without contrast. HISTORY: Bilateral lower abdominal pain since this morning. History of nephrolithiasis. COMPARISON: CT from 10/09/2011. TECHNIQUE: Contiguous axial CT images of the abdomen and pelvis wereobtained without contrast. Sagittal and coronal reformatted images were acquiredand reviewed as well. FINDINGS: Atelectasis at the lung bases which are otherwise acutelyclear. Mild degenerative disc disease of the lumbar spine. No acute ordestructive osseous abnormalities. Prior right hip surgery is noted. Likelycalcified injection granuloma in the subcutaneous soft tissues of the left buttocks. Normal cardiac size without effusion. No aortic aneurysm. There are some vascular calcifications in the abdomen and pelvis. The liver, gallbladder, spleen, adrenal glands, pancreas and kidneys are acutely unremarkable. No obstructive uropathy. No ureteral calculi are present. As on the prior study in 2011, there is circumferential wall thickening ofthe short loop of small bowel best visualized on axial image 66. There is stranding of the mesenteric fat adjacent to this loop of small bowel aswell. A short segment loop is also dilated measuring up to about 4 cm. Thefindings could relate to infectious, inflammatory or ischemic cause. No obvious pneumatosis or portal venous gas is appreciated. There are some small reactive lymph nodes in this region as well. No evidence of bowelobstruction at this time. Bladder is incompletely distended but otherwise normal. Prostate is unremarkable as are the seminal vesicles. Large bowel is acutely normal. Anastomotic sutures noted within the transverse colon. No free intraperitoneal air or fluid. No pelvic lymphadenopathy. Nonspecificlymph nodes, some of which are mildly prominent, are seen within the small bowel mesentery. IMPRESSION: Circumferential bowel wall thickening in the right lower quadrant just inferior to the right hepatic lobe with surrounding inflammation andstranding of the small bowel mesenteric fat. There are some prominent mesentericlymph nodes noted as well. Findings could relate to infectious, inflammatory or perhaps ischemic causes. No pneumatosis or portal venous gas is presentat this time. THIS IS AN ELECTRONICALLY VERIFIED REPORT 07/14/2015 4:48 PM: Myron Jeter D.O. Myron Jeter D.O. DW:leticia 04:48 PM 04:48 PM [EOD] Alyssa Fernández TRANSACTIONAL ATTORNEY IMG CT PROCEDURES Final Result documented in this encounter Visit Diagnoses Diagnosis Crohn's disease of large intestine without complication (CMS/HCC) (HCC) Essential (primary) hypertension Unspecified essential hypertension Gastro-esophageal reflux disease without esophagitis Tobacco use Tobacco abuse counseling documented in this encounter
== END 2024-05-30 07:21 | disposition home or self-care (01) ==
PROVIDERS: Emergency Provider Emergency Medicine
DX: J45.901 Unspecified asthma with (acute) exacerbation (principal); J44.9 Chronic obstructive pulmonary disease, unspecified; Z20.822 Contact with and (suspected) exposure to COVID-19
CPT/HCPCS: 36415; 36600; 71045; 80053; 81003; 82805; 83605; 83735; 83880; 84145; 84484; 85018; 85025; 85610; 85730; 87637; 87651; 93005; 96374; 99284; J2919

== ENCOUNTER 2024-06-18 01:42 | Inpatient (IN) | payer OTHER, SELFPAY ==
[2024-06-18] VITALS (45 sets, daily range): BP systolic 134–183; BP diastolic 81–101; PULSE 80–127; RESP 16–32; TEMP 36.2–37; O2SAT 95–100; BMI 21.9
--- NOTE | ~2024-06-18 | XR_ITS ---
Portable chest x-ray Comparison: 05/30/2024 Clinical History: Shortness of breath Findings: Lungs are clear, without focal consolidation or pleural effusion. Possible COPD. Cardiome diastinal silhouette is stable. Bones and soft tissues are unremarkable. Impression: Clear lungs. COPD. Status post CABG. Reviewed, dictated and finalized at location . INAL CLERK Impression: Clear lungs. COPD. Status post CABG.
--- NOTE | 2024-06-18 01:49 | ECG_ITS ---
Test Date: 2024-06-18 01:55:54 Measurements Intervals [place] Rate: 107 P: 86 NC: 116 QRS: 78 QRSD: 84 T: -23 QT: 336 QTc: 449 Interpretive Statements SINUS TACHYCARDIA WITH SHORT NC INTERVAL NONSPECIFIC ST & T-WAVE ABNORMALITY Compared to ECG 05/30/2024 05:52:53 T-wave abnormality now present Electronically Signed On 06-18-2024 11:56:00 [employer]IPE [employer]INTENA[employer]CE by Leta Dennison
[2024-06-18 02:13] LABS: Basophils Percent Auto 0.1 % (0.2-1.2); Eosinophils Percent Auto 0.1 % (0-4.4); Hematocrit 35.4 % (42.0-52.0); Hemoglobin 11.6 g/dL (14.0-18.0); Immature Granulocyte Absolute 0.04 K/mm3 (0.00-0.031); Immature Granulocyte Percent A 0.4 % (0-0.5); Lymphocytes Absolute Auto 1.92 K/mm3 (0.9-3.2); Lymphocytes Percent Auto 17.1 % (18.3-44.2); Mean Corpuscular HGB Conc 32.8 g/dl (32-36); Mean Corpuscular Hemoglobin 31.6 pg (26-34); Mean Corpuscular Volume 96.5 fl (80-100); Mean Platelet Volume 8.8 fl (7.4-10.4); Monocytes Absolute Auto 1.1 K/mm3 (0.1-0.6); Monocytes Percent Auto 9.4 % (2.6-8.5); Neutrophils Absolute Auto 8.2 K/mm3 (1.3-6.7); Neutrophils Percent Auto 72.9 % (45.5-73.1); Platelet Count Result 315 k/mm3 (150-375); Red Blood Count 3.67 M/mm3 (4.6-6.20); Red Cell Distribution Width 15.5 % (11.5-14.5); White Blood Count 11.3 K/mm3 (4.5-10.0)
[2024-06-18] MEDS: IPRATROPIUM BR 0.02% INH SOLN 0.5 MG/2.5 ML VIAL 2 MG INHALATION (02:50)
[2024-06-18] MEDS: ALBUTEROL SULFATE NEB 2.5 MG/3 ML INH 10 MG INHALATION (02:50)
[2024-06-18] MEDS: methylPREDNISolone SOD SUCC 125 MG VIAL IV PUSH (02:57)
[2024-06-18 03:17] LABS: Influenza A QL RT-PCR Negative (Negative); Influenza B QL RT-PCR Negative (Negative); RSV RNA, RT-PCR Positive (Negative); SARS-CoV-2 RNA PCR Negative (Negative)
[2024-06-18 03:20] LABS: Alanine Aminotransferase 33 U/L (6-50); Albumin Level 3.3 g/dL (3.5-5.1); Alkaline Phosphatase 93 U/L (38-126); Anion Gap 7 mmol/L (4-12); Aspartate Amino Transferase 29 U/L (17-59); Bilirubin,Total 0.5 mg/dL (0.2-1.3); Blood Urea Nitrogen 27 mg/dL (9-20); Calcium 8.3 mg/dL (8.4-10.2); Carbon Dioxide 23 mmol/L (22-30); Chloride 107 mmol/L (98-107); Estimated CRCL calculation 65 ml/min; Estimated Glomerular Filt Rate > 60; Glucose 99 mg/dL (65-110); Magnesium 1.8 mg/dL (1.6-2.3); Potassium 3.5 mmol/L (3.4-5.0); Sodium 137 mmol/L (137-145)
--- NOTE | 2024-06-18 04:16 | ED.GENADULT ---
HPI - General Adult General Chief complaint: Shortness of Breath/Dyspnea Stated complaint: difficulty breathing Time Seen by Provider: 06/18/24 02:09 History of Present Illness HPI narrative: Patient is a 58-year-old male who presents to the emergency department this evening complaining of worsening shortness of breath. Patient has known history of COPD and states that he was recently discharged from [place] yesterday afternoon after being admitted there for 2 days due to COPD exacerbation an RSV. Patient states that yesterday throughout the night and today symptoms have only progressively worsened. Upon arrival to the emergency department, patient is noted to be diffusely wheezing and tachypneic. EMS did administer DuoNeb breathing treatment prior to arrival which patient states has helped. Denies any active chest pain. No additional symptoms or concerns at this time. Related Data Allergies Allergy/AdvReac Type Severity Reaction Status Date / Time No Known Allergies Allergy Verified 05/30/24 05:56 Review of Systems Review of Systems: All systems are reviewed and are negative unless stated otherwise in the HPI. Exam Narrative: General: Alert, awake, afebrile, in moderate respiratory distress, conversational dyspnea. HEENT: PERRL, no rhinorrhea, no post nasal drip, oropharynx clear. Neck: Trachea midline, no JVD, no lymphadenopathy. Cardiovascular: Regular rate and rhythm, no murmurs, rubs or gallops, no peripheral edema. Respiratory: Diffuse bilateral wheezing and diminished air movement, tachypnea, moderate respiratory distress, actively coughing. Abdomen: Soft, nontender, nondistended, no rebound, no guarding, no peritoneal signs. Musculoskeletal: No joint swelling or deformity, normal muscle tone. Skin: No rashes or petechia, no signs of infection. Psychiatric: Alert and oriented, normal behavior and judgment for situation. Neurological: Alert and oriented to person, place, and time. Follows all commands. No focal deficits, speech is clear and fluent. Course Vital Signs Vital signs: Vital Signs Temperature 98.1 F 06/18/24 01:49 Pulse Rate 112 H 06/18/24 01:49 Respiratory Rate 27 H 06/18/24 01:49 Blood Pressure 183/90 H 06/18/24 01:49 Pulse Oximetry 98 06/18/24 01:49 Oxygen Delivery Room Air 06/18/24 01:49 Temperature 98.1 F 06/18/24 01:49 Pulse Rate 121 H 06/18/24 04:08 Respiratory Rate 24 H 06/18/24 04:08 Blood Pressure 175/100 H 06/18/24 03:01 Pulse Oximetry 98 06/18/24 01:49 Oxygen Delivery Room Air 06/18/24 01:49 Medical Decision Making MDM Narrative Medical decision making narrative: The patient was evaluated by myself in the emergency department. History is obtained from patient who is an independent historian and physical exam was performed. External medical records were reviewed at this time. IV was established and pertinent tests were ordered. Patient was administered 125 mg of IV Solu-Medrol and an hour long DuoNeb breathing treatment. EKG was obtained which revealed sinus tachycardia rate of 107 beats per minute, short LA interval. EKG was independently interpreted by me and is currently pending official cardiology read. Laboratory results obtained revealing no acute process. Viral swabs were noted to be positive for RSV. Imaging studies obtained included CXR which was independently interpreted by me revealing no acute cardiopulmonary process, which is pending final radiology interpretation. Differential diagnosis considerations include COPD exacerbation, acute viral syndrome, infectious process such as pneumonia. Comorbidities impacting this visit include history of COPD. I have evaluated and discussed social determinants of health with the patient that could potentially impact subsequent diagnosis and treatment plans. On repeat assessment of the patient, reevaluation revealed that the patient is doing well and is in no acute distress. Patient symptoms have improved since he arrived to our emergency department. Repeat vital signs were all reviewed and noted to be stable. Differential diagnosis and treatment plan were discussed with the patient at bedside. Patient agrees with discussion and after shared medical decision making agrees with admission. All questions were answered to the patient's satisfaction. Case was discussed with the on-call MECHANICAL MAINTENANCE TECHNICIAN Carlos @ 3600 and he accepted admission to IMU. Vital Signs Vital Signs: Vital Signs Temperature 98.1 F 06/18/24 01:49 Pulse Rate 112 H 06/18/24 01:49 Respiratory Rate 27 H 06/18/24 01:49 Blood Pressure 183/90 H 06/18/24 01:49 Pulse Oximetry 98 06/18/24 01:49 Oxygen Delivery Room Air 06/18/24 01:49 Temperature 98.1 F 06/18/24 01:49 Pulse Rate 121 H 06/18/24 04:08 Respiratory Rate 24 H 06/18/24 04:08 Blood Pressure 175/100 H 06/18/24 03:01 Pulse Oximetry 98 06/18/24 01:49 Oxygen Delivery Room Air 06/18/24 01:49 Lab Data 06/18/24 02:08 06/18/24 02:56 Labs: Lab Results 06/18/24 06/18/24 06/18/24 Range/Units 02:08 02:38 02:56 WBC 11.3 H (4.5-10.0) K/mm3 RBC 3.67 L (4.6-6.20) M/mm3 Hgb 11.6 L (14.0-18.0) g/dL Hct 35.4 L (42.0-52.0) % MCV 96.5 (80-100) fl MCH 31.6 (26-34) pg MCHC 32.8 (32-36) g/dl RDW 15.5 H (11.5-14.5) % Plt Count 315 (150-375) k/mm3 MPV 8.8 (7.4-10.4) fl Immature Gran % (Auto) 0.4 (0-0.5) % Neut % (Auto) 72.9 (45.5-73.1) % Lymph % (Auto) 17.1 L (18.3-44.2) % [place] % (Auto) 9.4 H (2.6-8.5) % Eos % (Auto) 0.1 (0-4.4) % Baso % (Auto) 0.1 L (0.2-1.2) % Lymph # (Auto) 1.92 (0.9-3.2) K/mm3 [place] # (Auto) 1.1 H (0.1-0.6) K/mm3 Eos # (Auto) 0.0 (0-0.3) K/mm3 Baso # (Auto) 0.0 (0.0-0.1) K/mm3 Abs Immat Gran (auto) 0.04 H (0.00-0.031) K/mm3 Absolute Neuts (auto) 8.2 H (1.3-6.7) K/mm3 Absolute Nucleated RBC 0.000 (0.0-0.012) K/mm3 Nucleated RBC % 0.0 (0.0-0.2) % Sodium 137 (137-145) mmol/L Potassium 3.5 (3.4-5.0) mmol/L Chloride 107 (98-107) mmol/L Carbon Dioxide 23 (22-30) mmol/L Anion Gap 7 (4-12) mmol/L BUN 27 H D (9-20) mg/dL Creatinine 0.99 (0.7-1.3) mg/dL Estim Creat Clear Calc 65 ml/min Estimated GFR > 60 (59 - ) Glucose 99 (65-110) mg/dL Calcium 8.3 L (8.4-10.2) mg/dL Magnesium 1.8 (1.6-2.3) mg/dL Total Bilirubin 0.5 (0.2-1.3) mg/dL AST 29 (17-59) U/L ALT 33 (6-50) U/L Alkaline Phosphatase 93 (38-126) U/L Total Protein 6.0 L (6.3-8.2) g/dL Albumin 3.3 L (3.5-5.1) g/dL Influenza A (RT-PCR) Negative (Negative) Influenza B (RT-PCR) Negative (Negative) RSV (RT-PCR) Positive A (Negative) SARS-CoV-2 RNA (RT-PCR) Negative (Negative) Discharge Plan Discharge Clinical Impression: Acute exacerbation of chronic obstructive pulmonary disease (COPD), Respiratory syncytial virus (RSV) infection Patient Disposition: Still a Patient Condition: Improved Patient Language: Kyr[place] Prescriptions: No Action prednisone 20 mg tablet 40 mg PO DAILY 5 Days Qty: 10 0RF benzonatate 200 mg capsule 200 mg PO TID PRN (Reason: cough) Qty: 21 0RF Follow-up/Referrals: UNKNOWN,DOCTOR [Primary Care Provider] - Time of Disposition: 05:06
[2024-06-18] MEDS: MAGNESIUM SULF 2 GM/WATER 50ML 2 GM/50 ML BAG IVPB (04:56)
--- OUTSIDE RECORDS SUMMARY | 2024-06-18 06:33 | XMS_ITS | Data Portability ---
Author Organization [place] [facility] [employer], Main Office Address [address] [place] [address] Care Team Providers Care Center Mgr Name Role Phone RORY LOONEY Primary Care Provider RORY LOONEY Referring Provider POOJA BERGERON Orthopedic Surgeon LATASHA ELLIOTT Pharmacognosist PITER STOKES Principal Archaeologist Assessment Encounter Date Assessment Date Assessment LastModified [...] 1.29 L (48%), (+) BD response The [place] [employer] recommends annual screening for lung cancer with low-dose computed tomography (LDCT) for people aged 50 to 80 years old who smoke or formerly smoked and have a 20-year or greater pack-year history. Screening is no longer discontinued even when a person has not smoked for 15 years. Nicotine cessation counseling provided. [place] for quitting include getting ready, getting support [...] in Quit For Life program Registering at [email or web address].Schoo Making a call to 5-323-WTKX-NOW ( ). A strong, clear, personalized message [...] failure or relapse. Patient can enroll in [facility]'s smoking cessation class through Lucy Hendrix RN [...] Lab glycohemo globin, total, blood [address] (Lab), [address] [place], [address], 01/21/2024 08:28:53 microalbu min, urine [address] (Lab), [address] [place], [address], 01/21/2024 08:28:53 lipid panel, serum [address] (Lab), [address] [place], [address], 01/21/2024 08:28:53 CBC w/ auto diff [address] (Lab), [address] [place], [address], 01/21/2024 08:28:53 TSH, serum or plasma [address] (Lab), [address] [place], [address], 01/21/2024 08:28:53 CMP, serum or plasma [address] (Lab), [address] [place], [address], 01/21/2024 08:28:54 PSA, total, serum or plasma [address] (Lab), [address] [place], [address], 01/21/2024 08:28:54 vitamin D, 25-hydrox y, total, serum [address] (Lab), [address] [place], [address], 01/21/2024 08:28:54 vitamin B12 + folate, serum or blood [address] (Lab), [address] [place], [address], 01/21/2024 08:28:54 glycohemo globin, total, blood 2023 024 [facility] (Lab), [address] [place], [address], 12/26/2023 11:41:11 microalbu min, urine 2023 024 [facility] (Lab), [address] [place], [address], 12/26/2023 11:45:49 lipid panel, serum 2023 024 [facility] (Lab), [address] [place], [address], 12/26/2023 11:01:07 CBC w/ auto diff 2023 024 [facility] (Lab), [address] [place], [address], 12/26/2023 10:36:53 TSH, serum or plasma 2023 024 [facility] (Lab), [address] [place], [address], 12/26/2023 11:43:57 CMP, serum or plasma 2023 024 [facility] (Lab), [address] [place], [address], 12/26/2023 11:01:12 PSA, total, serum or plasma 2023 024 [facility] (Lab), [address] [place], [address], 12/26/2023 11:44:02 vitamin D, 25-hydrox y, total, serum [address] (Lab), [address] [place], [address], 12/25/2023 16:17:48 vitamin B12 + folate, serum or blood [email or web address] (Lab), [address] [place], [address], 12/31/2023 15:50:11 vitamin D, 25-hydrox y, total, serum [address] (Lab), [address] [place], [address], 04/29/2024 17:07:35 glycohemo globin, total, blood [address] (Lab), [address] [place], [address], 04/29/2024 17:07:33 microalbu min, urine 2023 024 [email or web address] [facility] (Lab), [address] [place], [address], 04/29/2024 17:07:33 lipid panel, serum 2023 024 [facility] (Lab), [address] [place], [address], 04/29/2024 17:07:34 CBC w/ auto diff 2023 024 [email or web address] [facility] (Lab), [address] [place], [address], 04/29/2024 17:07:34 TSH, serum or plasma [address] (Lab), [address] [place], [address], 04/29/2024 17:07:34 CMP, serum or plasma [address] (Lab), [address] [place], [address], 04/29/2024 17:07:35 Referral pulmonolo gist referral 2023 024 [email or web address] Piter Stokes MD, [address] [place], [address], 02/12/2024 08:43:54 orthopedi c surgeon referral 2023 024 [email or web address] Myron Lopez MD, [address] [facility], [place], [address], 07/24/2023 09:16:23 gastroent erologist referral 2023 024 [email or web address] Rambo Escobedo MD, [address] [place], [address], 02/12/2024 08:43:53 cardiolog ist referral 2023 024 [place], [address] [address], [address], [address], 02/12/2024 08:43:52 physical therapist referral - eval and treat 2023 024 [email or web address] [facility], [address] [place], [address], 08/06/2023 16:24:42 pulmonolo gist referral 2023 024 mariely Stokes MD, [address] [place], [address], 12/25/2023 16:18:34 gastroent erologist referral 2023 024 amena Escobedo MD, [address] [place], [address], 05/03/2024 10:25:01 cardiolog ist referral 2023 024 [place], [address] [address], [address], [address], 12/25/2023 16:18:35 pulmonolo gist referral 2023 024 amena Stokes MD, [address] [place], [address], 05/03/2024 10:24:12 gastroent erologist referral - Please call patient to schedule. 2023 024 KARAN Escobedo MD, [address] [place], [address], 05/03/2024 10:58:21 cardiolog ist referral 2023 024 [place], [address], [place] [address], [place], [address], 05/03/2024 10:24:11 Procedures injection , hip, fluoro guidance (PROC) - 4cc 1% Lidocaine & 40mg Depomedro lPrecerti fication Required? : N 2023 [email or web address] [facility] ([facility]), [address] [place], [address], 08/06/2023 16:24:42 Surgeries None recorded. Imaging LDCT, chest, for lung cancer screening 2023 024 [facility] ([facility] Scheduling), [address] [place], [address], 07/29/2023 08:23:35 LDCT, chest, for lung cancer screening [email or web address] [place] [address] ([facility] Scheduling), [address] [place], [address], 12/25/2023 16:18:35 Medication Orders meloxicam 15 mg tablet 2023 024 [facility], [address] [place] [address], [address], 12/25/2023 15:47:51 albuterol sulfate HFA 90 mcg/actua tion aerosol inhaler 2023 024 [facility], [address] [place] [address], [address], 09/02/2023 14:50:18 Symbicort 160 mcg-4.5 mcg/actua tion HFA aerosol inhaler 2023 024 [facility] [address], [address] [place] [address], [address], 09/02/2023 14:50:17 Spiriva Respimat 2.5 mcg/actua tion solution for inhalatio n 2023 024 [facility], [address] [place] [address], [address], 09/02/2023 14:50:18 albuterol sulfate HFA 90 mcg/actua tion aerosol inhaler 2023 024 [facility], [address] [place] [address], [address], 12/25/2023 16:17:17 albuterol sulfate HFA 90 mcg/actua tion aerosol inhaler 2023 024 [facility], [address] [place] [address], [address], 04/29/2024 17:07:19 cyanocoba jailene (vit B-12) 1,000 mcg/mL injection solution [address] [facility], [address] [place] [address], [address], 05/10/2024 09:47:15 Patient TargetsNo targets recorded. Patient Instructions Encounter Date Encounter Id Patient Instructions Last Modified By Organization Details Last Modified Time 09/02/2023 [id number] complete PFT w/ post bronchodilator spirometry* [email or web address] Not available 09/10/2023 09:25:30 Reason for Referral Pharmacognosist Referral for Co ronary arteriosclerosis Referring Physician: Rory Looney, Internal Medicine, Encounter Date: 07/17/2023 Tube And Manifold Builder Referral for Crohn's disease Referring Physician: Rory Looney, Internal Medicine, Encounter Date: 07/17/2023 Principal Archaeologist Referral for C hronic obstructive pulmonary disease Referring Physician: Rory Looney Internal Medicine, Encounter Date: 07/17/2023 Orthopedic Surgeon Referral for Pain of left hip joint Referring Physician: Rory Looney Internal Medicine, Encounter Date: 07/17/2023 Physical Therapist Referral for Osteoarthritis of left hip joint eval and treat Referring Physician: Pooja Bergeron, Orthopedic Surgery, Encounter Date: 08/06/2023 Pharmacognosist Referral for Co ronary arteriosclerosis Referring Physician: Rory Looney Internal Medicine, Encounter Date: 12/25/2023 Tube And Manifold Builder Referral for Crohn's disease Referring Physician: Rory Looney Internal Medicine, Encounter Date: 12/25/2023 Principal Archaeologist Referral for C hronic obstructive pulmonary disease Referring Physician: Rory Looney Internal Medicine, Encounter Date: 12/25/2023 Pharmacognosist Referral for Co ronary arteriosclerosis Referring Physician: Rory Looney Internal Medicine, Encounter Date: 04/29/2024 Tube And Manifold Builder Referral for Crohn's disease Please call patient to schedule. Referring Physician: Rory Looney Internal Medicine, Encounter Date: 04/29/2024 Principal Archaeologist Referral for C hronic obstructive pulmonary disease Referring Physician: Rory Looney Internal Medicine, Encounter Date: 04/29/2024 Results Created Date Observation Date Name Description Value Unit Range Abnormal Flag Note LastModifiedBy Organization Detail LastModifiedTime 12/26/1912/26/2023 CBC/C OMPLE TE BLD COUNT W/DIF F white blood cells 7.0 x10'3 /uL 4.2-10 .8 Not Available [facility] (Lab) [address] [place], [address], 12/26/2023 10:36:53 12/26/19 24 12/26/2023 CBC/C OMPLE TE BLD COUNT W/DIF F red blood cells 3.48 x10'6 /uL 4.10-5 .80 low Not Available [facility] (Lab) [address] [place], [address], 12/26/2023 10:36:53 12/26/19 24 12/26/2023 CBC/C OMPLE TE BLD COUNT W/DIF F hemoglobin 11.4 g/dL 13.2-1 7.0 low Not Available [facility] (Lab) [address] [place], [address], 12/26/2023 10:36:53 12/26/19 24 12/26/2023 CBC/C OMPLE TE BLD COUNT W/DIF F hematocrit 34.8 % 39.3-5 0.0 low Not Available [facility] (Lab) [address] [facility] [place], [address], 12/26/2023 10:36:53 12/26/19 24 12/26/2023 CBC/C OMPLE TE BLD COUNT W/DIF F mean red cell volume 100.0 fL 80.0-9 7.0 high Not Available [facility] (Lab) [address] [place], [address], 12/26/2023 10:36:53 12/26/19 24 12/26/2023 CBC/C OMPLE TE BLD COUNT W/DIF F mean red cell hemoglobin 32.8 pg 27.0-3 3.0 Not Available [facility] (Lab) [address] [place], [address], 12/26/2023 10:36:53 12/26/19 24 12/26/2023 CBC/C OMPLE TE BLD COUNT W/DIF F mean RBC HGB concentratio n 32.8 g/dL 31.0-3 6.0 Not Available [facility] (Lab) [address] [place], [address], 12/26/2023 10:36:53 12/26/19 24 12/26/2023 CBC/C OMPLE TE BLD COUNT W/DIF F red cell distribution width 14.5 % 11.8-1 5.5 Not Available [facility] (Lab) [address] [place], [address], 12/26/2023 10:36:53 12/26/19 24 12/26/2023 CBC/C OMPLE TE BLD COUNT W/DIF F platelets 286 x10'3 /uL 150-40 0 Not Available [facility] (Lab) [address] [place], [address], 12/26/2023 10:36:53 12/26/19 24 12/26/2023 CBC/C OMPLE TE BLD COUNT W/DIF F mean platelet volume 8.3 fL 9.0-12 .4 low Not Available [facility] (Lab) [address] [place], [address], 12/26/2023 10:36:53 12/26/19 24 12/26/2023 CBC/C OMPLE TE BLD COUNT W/DIF F neutrophils 54.8 % 39.0-7 2.0 Not Available [facility] (Lab) [address] [place], [address], 12/26/2023 10:36:53 12/26/19 24 12/26/2023 CBC/C OMPLE TE BLD COUNT W/DIF F lymphocytes 33.9 % 16.0-4 7.0 Not Available [facility] (Lab) [address] [place], [address], 12/26/2023 10:36:53 12/26/19 24 12/26/2023 CBC/C OMPLE TE BLD COUNT W/DIF F monocytes 10.3 % 5.0-12 .0 Not Available [facility] (Lab) [address] [place], [address], 12/26/2023 10:36:53 12/26/19 24 12/26/2023 CBC/C OMPLE TE BLD COUNT W/DIF F eosinophils 0.4 % 1.0-7. 0 low Not Available [facility] (Lab) [address] [place], [address], 12/26/2023 10:36:53 12/26/19 24 12/26/2023 CBC/C OMPLE TE BLD COUNT W/DIF F basophils 0.3 % 0.0-2. 0 Not Available [facility] (Lab) [address] [place], [address], 12/26/2023 10:36:53 12/26/19 24 12/26/2023 CBC/C OMPLE TE BLD COUNT W/DIF F immature granulocytes 0.3 % 0.00-0 .50 Not Available [facility] (Lab) [address] [place], [address], 12/26/2023 10:36:53 12/26/19 24 12/26/2023 CBC/C OMPLE TE BLD COUNT W/DIF F neutrophils, absolute count 3.83 x10'3 /uL 1.5-8. 0 Not Available [facility] (Lab) [address] [place], [address], 12/26/2023 10:36:53 12/26/19 24 12/26/2023 CBC/C OMPLE TE BLD COUNT W/DIF F lymphocytes, absolute count 2.37 x10'3 /uL 1.07-3 .43 Not Available [facility] (Lab) [address] [place], [address], 12/26/2023 10:36:53 12/26/19 24 12/26/2023 CBC/C OMPLE TE BLD COUNT W/DIF F monocytes, absolute count 0.72 x10'3 /uL 0.29-0 .99 Not Available [facility] (Lab) [address] [place], [address], 12/26/2023 10:36:53 12/26/19 24 12/26/2023 CBC/C OMPLE TE BLD COUNT W/DIF F eosinophils, absolute count 0.03 x10'3 /uL 0.02-0 .53 Not Available [facility] (Lab) [address] [place], [address], 12/26/2023 10:36:53 12/26/19 24 12/26/2023 CBC/C OMPLE TE BLD COUNT W/DIF F basophils, absolute count 0.02 x10'3 /uL 0.01-0 .08 Not Available [facility] (Lab) [address] [place], [address], 12/26/2023 10:36:53 12/26/19 24 12/26/2023 CBC/C OMPLE TE BLD COUNT W/DIF F immature granulocytes ,absolute 0.02 x10'3 /uL 0.00-0 .05 Not Available [facility] (Lab) [address] [place], [address], 12/26/2023 10:36:53 12/26/19 24 12/26/2023 CBC/C OMPLE TE BLD COUNT W/DIF F nucleated red blood cells 0.0 % -0 Not Available [facility] (Lab) [address] [place], [address], 12/26/2023 10:36:53 12/26/19 24 12/26/2023 CBC/C OMPLE TE BLD COUNT W/DIF F NRBC# 0.00 x10'3 /uL Not Available [facility] (Lab) [address] [place], [address], 12/26/2023 10:36:53 12/26/19 24 12/26/2023 LIPID PANEL cholesterol 88 mg/dL 140-19 9 low NIH [facility] NSUS RECOM MENDA TION FOR NAZ STERO L: ADULT CHILD LOW RISK: <200 <170 BORDE RLINE : <200- 239 ----- HIGH RISK: >240 >200 Not Available [facility] (Lab) [address] [place], [address], 12/26/2023 11:01:07 12/26/19 24 12/26/2023 LIPID PANEL triglyceride s 154 mg/dL 0-150 high NIH [facility] NSUS REPOR T RECOM MENDA TION FOR TRIGL YCERI CHELI: ADULT CHILD LOW RISK: <150 ----- BODER LINE: 150-1 99 ----- HIGH RISK: >200 ----- Not Available [facility] (Lab) [address] [place], [address], 12/26/2023 11:01:07 12/26/19 24 12/26/2023 LIPID PANEL HDL cholesterol 51 mg/dL 40- Not Available [facility] (Lab) [address] [place], [address], 12/26/2023 11:01:07 12/26/19 24 12/26/2023 LIPID PANEL [...] WILL NOT BE REPOR MENDOZA. Not Available [facility] (Lab) [address] [place], [address], 12/26/2023 11:01:07 12/26/19 24 12/26/2023 COMP MET PANEL /LIVE R sodium 138 mmol/ L 137-14 5 Not Available [facility] (Lab) [address] [place], [address], 12/26/2023 11:01:11 12/26/19 24 12/26/2023 COMP MET PANEL /LIVE R potassium 3.7 mmol/ L 3.5-5. 1 Not Available [facility] (Lab) [address] [place], [address], 12/26/2023 11:01:11 12/26/19 24 12/26/2023 COMP MET PANEL /LIVE R chloride 109 mmol/ L 98-107 high Not Available [facility] (Lab) [address] [place], [address], 12/26/2023 11:01:11 12/26/19 24 12/26/2023 COMP MET PANEL /LIVE R carbon dioxide 23 mmol/ L 22-30 Not Available [facility] (Lab) [address] [facility] [place], [address], 12/26/2023 11:01:11 12/26/19 24 12/26/2023 COMP MET PANEL /LIVE R anion gap 9.7 mmol/ L 14-22 low Not Available [facility] (Lab) [address] [place], [address], 12/26/2023 11:01:11 12/26/19 24 12/26/2023 COMP MET PANEL /LIVE R glucose 78 mg/dL 70-99 Not Available [facility] (Lab) [address] [place], [address], 12/26/2023 11:01:11 12/26/19 24 12/26/2023 COMP MET PANEL /LIVE R BUN 18 mg/dL 8-19 Not Available [facility] (Lab) [address] [place], [address], 12/26/2023 11:01:11 12/26/19 24 12/26/2023 COMP MET PANEL /LIVE R creatinine 1.26 mg/dL 0.66-1 .25 high Not Available [facility] (Lab) [address] [place], [address], 12/26/2023 11:01:11 12/26/19 24 12/26/2023 COMP MET PANEL /LIVE R GFR >60 Refer ence Range : [place] GFR Healt hy Adult : >60 [...] calcu lator is avail able on the [facility] websi te: [email or web address] :[email or web address] [email or web address] darin/pr ofess ional s/kdo qi/gf r_cal culat or Not Available [facility] (Lab) [address] [place], [address], 12/26/2023 11:01:11 12/26/19 24 12/26/2023 COMP MET PANEL /LIVE R alkaline phosphatase 126 U/L 38-126 Not Available [facility] (Lab) [address] [place], [address], 12/26/2023 11:01:11 12/26/19 24 12/26/2023 COMP MET PANEL /LIVE R alanine aminotransfe rase 44 U/L 0-50 Not Available [facility] (Lab) [address] [place], [address], 12/26/2023 11:01:11 12/26/19 24 12/26/2023 COMP MET PANEL /LIVE R aspartate aminotransfe rase 30 U/L 15-46 Not Available [facility] (Lab) [address] [place], [address], 12/26/2023 11:01:11 12/26/19 24 12/26/2023 COMP MET PANEL /LIVE R bilirubin, total 0.40 mg/dL 0.20-1 .30 Not Available [facility] (Lab) [address] [place], [address], 12/26/2023 11:01:11 12/26/19 24 12/26/2023 COMP MET PANEL /LIVE R bilirubin, conjugated (direct) 0.00 mg/dL 0.00-0 .30 Not Available [facility] (Lab) [address] [place], [address], 12/26/2023 11:01:11 12/26/19 24 12/26/2023 COMP MET PANEL /LIVE R biliurubin,u ncong. (indirect) 0.20 mg/dL 0.00-1 .1 Not Available [facility] (Lab) [address] [place], [address], 12/26/2023 11:01:11 12/26/19 24 12/26/2023 COMP MET PANEL /LIVE R calcium 8.3 mg/dL 8.4-10 .2 low Not Available [facility] (Lab) [address] [place], [address], 12/26/2023 11:01:11 12/26/19 24 12/26/2023 COMP MET PANEL /LIVE R total protein 6.7 g/dL 6.3-8. 2 Not Available [facility] (Lab) [address] [place], [address], 12/26/2023 11:01:11 12/26/19 24 12/26/2023 COMP MET PANEL /LIVE R albumin 3.7 g/dL 3.4-5. 0 Not Available [facility] (Lab) [address] [place], [address], 12/26/2023 11:01:11 12/26/19 24 12/26/2023 COMP MET PANEL /LIVE R globulin 3.0 g/dL 2.6-4. 2 Not Available [facility] (Lab) [address] [place], [address], 12/26/2023 11:01:11 12/26/19 24 12/26/2023 COMP MET PANEL /LIVE R A/G ratio 1.2 ratio 1.0-2. 0 Not Available [facility] (Lab) [address] [place], [address], 12/26/2023 11:01:11 12/26/19 24 12/26/2023 VITAM IN D 25-HY DROXY [id number] <12.8 NG/mL 30-100 low Vitam in D Statu s: Defic ient: <20 ng/mL Insuf ficie nt: 20-29 ng/mL Suffi cient : 30-10 0 ng/mL Not Available [facility] (Lab) [address] [place], [address], 12/26/2023 11:23:11 12/26/19 24 12/26/2023 HEMOG LOBIN A1C HA1C 5.9 % 4.0-6. 0 Diabe cinthya Scree krystal Crite jimmie: <5.7% Consi stent with absen ce of diabe cinthya 5.7-6 .4% Consi stent with incre ased risk for diabe cinthya (pred iabet es) >OR=6 .5% Consi stent with diabe cinthya REFER ENCE: Diabe cinthya Care 2016, 39(Mccracken ppl.1 ):s13 -s22 Not Available [facility] (Lab) [address] [place], [address], 12/26/2023 11:41:10 08/02/12/26/2023 TSH W/REF TOO FT4 TSH with reflex free T4 1.870 uIU/m L 0.465- 4.680 Not Available [facility] (Lab) [address] [place], [address], 12/26/2023 11:43:57 12/26/19 24 12/26/2023 PSA SCREE N PSA medicare screen 0.61 NG/mL 0.00-4 .00 Not Available [facility] (Lab) [address] [place], [address], 12/26/2023 11:44:02 12/26/19 24 12/26/2023 MICRO ALBUM IN RANDO M URINE microalbumin , urine 34.0 mg/L 0.0-16 .6 high Not Available [facility] (Lab) [address] [place], [address], 12/26/2023 11:45:49 12/26/19 24 12/26/2023 VITAM IN B12 (MAINE JAILENE ) vb12 <159 pg/mL 239-93 1 low Not Available [facility] (Lab) [address] [place], [address], 12/26/2023 12:07:32 12/26/19 24 12/26/2023 FOLAT E, SERUM /PLAS MA folate 9.55 NG/mL 2.76-2 0.0 Not Available [facility] (Lab) [address] [place], [address], 12/26/2023 12:07:37 07/29/19 24 07/28/2023 LDCT, chest , for lung cance r oneliae krystal [facility] [address] [place] [address] Patien t Name: JOSÉ LUIS CHICAS Access ion #: [id number] Sex: M : 1965 5 Dictat [...] signif icant pneumo thorax . Page 1 [facility] [address] [address] Patien t Name: JOSÉ LUIS CHICAS Access ion #: [id number] Sex: M : 1965 5 Dictat [...] 2023 07:22: 20 AM Page 2 INTERFACE [facility] (Imaging) [address] [place], [address], 07/29/2023 08:23:35 07/29/19 24 07/28/2023 LDCT, chest , for lung cance r tracy [email or web address] No observ ation record ed. [email or web address] ([facility]) [address] [place], [address], 02/03/2024 11:52:28 07/29/19 24 07/09/2023 XR, hip + pelvi s, bilat eral No observ ation record ed. [email or web address] Not Available 2023 17:07:56 08/07/19 24 08/07/2023 XR, chest , 1 view No observ ation record ed. [email or web address] [place], [address], 02/03/2024 16:13:51 02/13/20 24 02/13/2024 XR, chest , 1 view No observ ation record ed. [facility] [address] [place], [address], 05/03/2024 15:57:28 04/02/20 24 04/01/2024 XR, chest , 1 view No observ ation record ed. [email or web address] [place], [address], 05/03/2024 15:57:43 05/11/20 24 05/11/2024 imagi ng/di agnos tic resul t No observ ation record ed. [facility] [address] [place], [address], 05/11/2024 21:47:00 06/12/19 25 06/12/2024 imagi ng/di agnos tic resul t No observ ation record ed. [facility] [address] [place], [address], 06/12/2024 03:46:50 06/16/19 25 06/15/2024 imagi ng/di agnos tic resul t No observ ation record ed. [facility] [address] [place], [address], 06/16/2024 04:58:48 Result Notes None recorded. 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 3 03:14:45 Prediabet es 434348927 Active 2022 Not Available [facility] 3 03:14:45 Iron deficienc y anemia 04334619 Active 2022 Not Available [facility] 3 03:14:45 Hyperlipi demia 78252036 Active 2022 Not Available [facility] 3 03:14:45 Essential hypertens ion 22780048 Active 2022 Not Available [facility] 3 03:14:45 Smoker 07985820 Active 2022 Not Available [facility] 3 03:14:45 Severe chronic obstructi ve pulmonary disease 788087787 Active 2022 Not Available [facility] 3 03:14:45 Full thickness rotator cuff tear 018443296 Active 2022 Not Available [facility] 3 03:14:45 Coronary arteriosc lerosis 49695482 Active 2023 Rory desai MD [address], [address], [place], [address] , [employer] [facility] [employer] [facility] 4 15:52:15 Serum vitamin B12 below reference range [id number] Active 2023 Rory desai MD [address], [address], [place], [address] , [employer] [facility] [employer] [facility] 4 16:17:05 Osteoarth ritis of left hip joint [id number] 9108 Active 2023 Feliica sol, [employer] [facility] [employer] [facility] 4 14:46:58 Pain of left hip joint [id number] 9100 Active 2023 Rory desai MD [address], [address], [place], [address] , [employer] [facility] [employer] [facility] 4 18:33:20 Chronic obstructi ve pulmonary disease 21677660 Active 2023 Rory desai MD [address], [place], [address] , [facility] [employer] [facility] 4 18:33:20 Cigarette smoker 77369057 Active 2023 Rory desai MD [address], [place], [address] , [facility] [employer] [facility] 4 18:33:20 Serum creatinin e above reference range 244127657 Active 2023 ELOISE Thurston, [facility] [employer] [facility] 4 15:51:55 Vitamin B12 deficienc y (non anemic) 46330376 Active 2023 ELOISE Thurston, [facility] [employer] [facility] 4 14:38:52 Anemia 538694563 Active 2023 ELOISE Thurston, [facility] [employer] [facility] 4 14:39:13 Notes:Medical History: Rhini tis [...] Time revision of colostomy completed Not Available [facility] 07/24/2022 00:41:56 partial resection of colon completed Not Available [facility] 07/24/2022 00:41:56 open reduction of fracture of femur completed Not Available [facility] 07/24/2022 00:41:56 colostomy completed Not Available [facility] 0 07/24/2022 00:41:56 Colonoscopy completed Not Available [facility] 07/24/2022 00:41:56 Imaging Results Imaging Date Name Status LastModified by [facility] Details LastModified Time 07/28/2023 LDCT, chest, for lung cancer screening active INTERFACE [facility] (Imaging) [address] [place], [address], 07/29/2023 08:23:35 07/28/2023 LDCT, chest, for lung cancer screening completed [address] ([employer] Sched[employer]) [address] [place], [address], 02/03/2024 11:52:28 07/09/2023 XR, hip + pelvis, bilateral completed [email or web address] Information not available 07/29/2023 17:07:56 08/07/2023 XR, chest, 1 view completed [address] [place], [address], 02/03/2024 16:13:51 02/13/2024 XR, chest, 1 view completed [address] [place], [address], 05/03/2024 15:57:28 04/01/2024 XR, chest, 1 view completed [address] [place], [address], 05/03/2024 15:57:43 05/11/2024 imaging/diagno stic result active [facility] [address] [place], [address], 05/11/2024 21:47:00 06/12/2024 imaging/diagno stic result active [facility] [address] [place], [address], 06/12/2024 03:46:50 06/15/2024 imaging/diagno stic result active [facility] [address] [place], [address], 06/16/2024 04:58:48 Procedure Notes None recorded. Medical Equipment None Reported. Allergies Allergen ID Allergen Name Allergen Category Reaction Reaction Severity Criticality Documentation Date Start Date Code Code System Note Provider Name and Address Organization Details Recorded Time 227 Dilaudid medicatio n itching Not available Not available 07/24/2022 65843 3 RxNorm Not Available [facility] 3 00:49:49 Medications Name Sig Start Date Stop [...] 11/12 completed [facility]: [id number] 09-12 Not Available Not Available Not [...] 11/12 completed [facility] 94406-21 08-24 Not Available Not Available Not Available [...] Updated DateTime 4 170.18 cm 22.2 kg/m2 49295.1 2 g 97.3 [degF] 96 /min 140 mm[Hg] 80 mm[Hg] Joanne Hassan [facility] [employer] 15:48:32 Date Recorded Body height Body mass index (BMI) Body weight Provider Name and Address Organization Details Last Updated DateTime 08/06/2023 170.18 cm 22.4 kg/m2 17782.[address] [facility] [employer] 08/06/2023 14:18:26 Date Recorded Body height Body mass index (BMI) Body weight Body temperature Oxygen saturation Oxygen saturation in Arterial blood by Pulse oximetry Provider Name and Address Organization Details Last Updated DateTime 4 170.18 cm 21.8 kg/m2 53335.7 8 g 98.8 [degF] 97 % 97 % Reny Ross [place] [employer] [facility] [employer] 4 14:30:49 Date Recorded Heart rate Respiratory rate Heart rate Systolic blood pressure Diastolic blood pressure Provider Name and Address Organization Details Last Updated DateTime 09/02/2023 99 /min 15 /min 99 /min 140 mm[Hg] 90 mm[Hg] Piter Stokes MD [address] [facility], [facility] [address], [place], [address], [employer] [facility] [employer] 4 14:59:25 Date Recorded Body height Body mass index (BMI) Body weight Body temperature Heart rate Oxygen saturation Oxygen saturation in Arterial blood by Pulse oximetry Systolic blood pressure Diastolic blood pressure Provider Name and Address Organization Details Last Updated DateTime 4 170.18 cm 22.1 kg/m2 99180.5 2 g 98.3 [degF] 105 /min 96 % 96 % 142 mm[Hg] 88 mm[Hg] Reny Ross MA [employer] [facility] [employer] 4 15:47:04 Date Recorded Body height Body mass index (BMI) Body weight Body temperature Heart rate Systolic blood pressure Diastolic blood pressure Provider Name and Address Organization Details Last Updated DateTime 4 170.18 cm 21.5 kg/m2 38410.1 5 g 97.9 [degF] 84 /min 136 mm[Hg] 80 mm[Hg] JUAN Noble [place] [employer] [facility] [employer] 4 16:26:44 Social History Question Answer Notes LastModified by Organization Details LastModified Time Tobacco Smoking Status Current Some Day Smoker Not Available [facility] 07/24/2022 00:41:11 Do You Have An Advance Directive? No MIGRATION.300 [id number] Information not available 07/24/2022 What Is Your Level Of Alcohol Consumption? Occasional MIGRATION.300026 Information not available 07/24/2022 What Is Your Level Of Caffeine Consumption? Occasional MIGRATION.300026 Information not available 07/24/2022 How Much Tobacco Do You Chew? None MIGRATION.0301 071174 Information not available 07/24/2022 In The 14 Days Before Symptom Onset, Have You Had Close Contact With A Laboratory-conf irmed COVID-19 While That Case Was Ill? No MIGRATION.0301 [id number] Information not available 07/24/2022 In The 14 Days Before Symptom Onset, Have You Had Close Contact With A Person Who Is Under Investigation For COVID-19 While That Person Was Ill? No MIGRATION.0301 126614 Information not available 07/24/2022 Are You Currently Employed? Yes Information not available 09/02/2023 What Type Of Diet Are You Following? REGULAR MIGRATION.0301 [id number] Information not available 07/24/2022 Which Illicit Or Recreational Drugs Have You Used? Cocaine, Cannabis No Longer Cocaine Information not available 09/02/2023 Do You Or Have You Ever Used E-cigarettes Or Vape? Never Used Electronic Cigarettes MIGRATION.0301 [id number] Information not available 07/24/2022 What Is The Highest Grade Or Level Of School You Have Completed Or The Highest Degree You Have Received? [id number] MIGRATION.0301 [id number] Information not available 07/24/2022 Do You Have An Electrostatic Air Filter? 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 No MIGRATION.0301 [id number] Information not available 07/24/2022 Are There Any Guns Present In Your Home? No MIGRATION.0301 904879 Information not available 07/24/2022 Do You Have A Humidifier? No Information not available 10/03/2022 Do You Use Insect Repellent Routinely? No MIGRATION.0301 273055 Information not available 07/24/2022 Where Do You Live? [facility] MIGRATION.0301 854019 Information not available 07/24/2022 Do You Have A Medical Power Of It Application Development Manager? No MIGRATION.0301 324723 Information not available 07/24/2022 Do You Have Moisture Problems In Your Home? No Information not available 10/03/2022 What Was The Date Of Your Most Recent Tobacco Screening? 12/25/2023 Information not available 12/25/2023 Do You Have Any Pets? Yes MIGRATION.0301 [id number] Information not available 07/24/2022 What Is Your Relationship Status? Information not available 09/02/2023 Do You Use Your Seat Belt Or Car Seat Routinely? Yes MIGRATION.0301 576518 Information not available 07/24/2022 Do You Have Smoke And Carbon Monoxide Detectors In Your Home? Yes MIGRATION.0301 760736 Information not available 07/24/2022 At What Age Did You Start Smoking Tobacco? 17 MIGRATION.0301 413734 Information not available 07/24/2022 Are You Passively Exposed To Smoke? Yes MIGRATION.0301 236694 Information not available 07/24/2022 Do You Or Have You Ever Used Smokeless Tobacco? Never Used Smokeless Tobacco MIGRATION.0301 848550 Information not available 07/24/2022 Are There Any Smokers In Your House? No MIGRATION.0301 821319 Information not available 07/24/2022 How Much Tobacco Do You Smoke? 1 PPW Smokes 1 Cigarette Every Other Day Information not available 09/02/2023 Do You Feel Stressed (tense, Restless, Nervous, Or Anxious, Or Unable To Sleep At Night)? [id number] MIGRATION.0301 682239 Information not available 07/24/2022 Do You Use Any Illicit Or Recreational Drugs? Yes Cannabis Information not available 09/02/2023 Do You Use Sunscreen Routinely? No MIGRATION.0301 625046 Information not available 07/24/2022 How Many Years Have You Smoked Tobacco? 30 MIGRATION.0301 920735 Information not available 07/24/2022 Have You Recently Traveled Abroad? No MIGRATION.0301 231433 Information not available 07/24/2022 Do You Or Have You Ever Used Any Other Forms Of Tobacco Or Nicotine? No [email or web address] Information not available 07/17/2023 Sex: Unknown Functional Status Question Answer Note LastModified by Organizat ion Details LastModified Time What is your exercise level? Moderate [id number] Information not available 07/24/2022 Mental Status None recorded. Family History Relationship Description Onset Age of this Age Resolved Age Notes LastModified by Organization Details LastModified Time Father Kidney disease MIGRATION.714 [id number] Not available 07/24/2022 00:42:01 Father Hypertensive disorder MIGRATION.923 [id number] Not available 07/24/2022 00:42:01 Father Malignant neoplasm of brain MIGRATION.254 [id number] Not available 07/24/2022 00:42:01 Mother Hypertensive disorder MIGRATION.722 [id number] Not available 07/24/2022 00:42:01 Mother Diabetes mellitus MIGRATION.618 [id number] Not available 07/24/2022 00:42:01 Sister Hypertensive disorder MIGRATION.655 [id number] Not available 07/24/2022 00:42:01 Sister Diabetes mellitus MIGRATION.423 [id number] Not available 07/24/2022 00:42:01 Brother Hypertensive disorder MIGRATION.385 [id number] Not available 07/24/2022 00:42:01 Brother Diabetes mellitus MIGRATION.865 [id number] Not available 07/24/2022 00:42:01 Medical History Condition [...] N CHRONIC PAIN SYNDROME N HYPOTHYROIDISM N CONSTIPATION N CAROTID BLOCKAGE N BACK / NECK PROBLEMS N HAVE YOU BEEN HOSPITALIZED OR SEEN IN [facility] IN THE PAST YEAR ? [...] dose 05/09/2022 completed Jg Echeverria LPN null, [facility] [employer] [facility] 11/26/2023 13:53:30 COVID-19, mRNA, LNP-S, PF, 30 mcg/0.3 mL dose 12/25/2020 completed Jg Echeverria LPN null, [employer] [facility] [employer] [facility] 11/26/2023 13:53:30 COVID-19, mRNA, LNP-S, PF, 30 mcg/0.3 mL dose 12/04/2020 completed Jg Echeverria LPN null, [employer] [facility] [employer] [facility] 11/26/2023 13:53:30 Influenza, split virus, quadrivalent, PF 04/06/2021 completed Not Available [facility] 3 04:37:28 Influenza, split virus, quadrivalent, PF 05/06/2022 completed Not Available [facility] 3 04:37:28 Past Encounters Encounter ID Performer Location Encounter Start Date Encounter Closed Date Diagnosis/Indication Diagnosis SNOMED-CT Code Diagnosis ICD10 Code Diagnosis Note [id number] [facility] [address] [facility] [address] [place] [address] 08/01/2020 00:00:00 08/01/2020 16:37:44 [id number] _CALEB_Ashutosh IGRATION_ DEFAULT_1 _1 , 09/20/2020 00:00:00 09/20/2020 15:25:02 [id number] [facility] [address] [facility] [facility] [address] [place] [address] 11/03/2020 00:00:00 11/03/2020 17:00:30 [id number] [facility] [address] [address] 11/09/2020 00:00:00 11/09/2020 09:53:13 [id number] [facility] Internal Med [address] [address] 01/01/2021 00:00:00 01/01/2021 22:08:04 [id number] [facility] [address], [address] [address] 02/05/2021 00:00:00 02/05/2021 20:36:33 [id number] [facility] [address] [address] 03/05/2021 00:00:00 03/05/2021 17:43:24 [id number] [facility] [address], [address] [address] 03/05/2021 00:00:00 03/05/2021 15:11:04 [id number] [facility] [address], [address] [address] 03/16/2021 00:00:00 03/16/2021 15:46:45 [id number] [facility] [address], [address] [address] 04/06/2021 00:00:00 04/06/2021 11:56:13 [id number] [facility] [address], [address] [address] 05/04/2021 00:00:00 05/04/2021 14:43:21 [id number] [facility] [address], [address] [address] 06/15/2021 00:00:00 06/15/2021 17:13:13 [id number] [facility] [address]mon[address] [place] [address] 06/18/2021 00:00:00 10/12/2021 15:07:07 [id number] [facility] Ortho [place] [address] [facility] [address] [place] [address] 07/11/2021 00:00:00 07/11/2021 15:09:46 [id number] [facility] Pulmonolo gy [address], [address] [address] 11/14/2021 00:00:00 11/14/2021 10:20:15 [id number] [facility] [address], [address] [address] 05/06/2022 00:00:00 05/06/2022 16:43:34 [id number] [facility] [place] [address] [facility] [address] [place] [address] 06/18/2022 00:00:00 06/26/2022 16:48:12 [id number] [facility] Internal Med [facility] [address] [place] [address], [address] [address] 07/08/2022 00:00:00 07/08/2022 15:00:44 [id number] SAMANTHA Ozuna [facility] [address], [address] [address] 09/30/2022 13:52:54 09/30/2022 14:19:12 Chronic obstructive pulmonary disease 70549226 J44.9 On Bevespi, prn albuterol He needs to be taking his Bevespi daily, reminded him to do soFollowin g pulm- Dr. Stokes, we were able to get him an appt scheduled for next week History of coronary artery bypass grafting 719034003 Z95.1 on plavix, ASAfollows [facility] Elliott- [facility] Crohn's disease 01176716 K50.90 Following GI- Dr. Escobedo Hemorrhoids 70467808 K64 .9 using Anusol prn Nicotine dependence 5629 4008 F17.200 3 minutes spent with patient discussing risks, cessation options. Patient encouraged to quit. Continue wellbutrin get LDCT- he has order call office if any change in mood or behavior Prediabetes 644302942 R7 3.03 continue diet/exerc ise efforts Vitamin D deficiency 347 22125 E55.9 on supplement Cobalamin deficiency 190 603719 E53.8 on b12 injections monthly Iron defic iency anemia 32468306 D50.9 on PO iron Hyperlipidemia 59413765 E78.5 on rosuvastat in Feeling irritable 290407 07 R45.4 on wellbutrin , he is aware of side effects, risks, benefitsca ll office if any change in mood or behaviorhe declines psychiatry referral and/or counseling referral today Normal weight 49251663 Z 68.23 recommend healthy, well balanced mealsfocus on lean meats, fresh vegetables , fresh fruits, whole grainsredu ce fast/proce ssed foods or eating out to no more than 1-2 times per weekaim to get 30 min of exercise most days of the week- walking is a great choice Slowing of urinary stream 71274760 R39.12 get appt with urology- has been referred Essential hypertension 86392048 I10 cardiology is working him up for [...] remember Pain of ri ght shoulder joint 2614158388 1685972 M25.511 Get another appointmen t with Ortho, he is wanting another round of injections [id number] Piter Stokes MD [facility] Pulmonolo gy [place] [address] [facility], [facility] [address] [place] [address] 10/03/2022 15:20:10 10/04/2022 08:34:40 Smoker 05711417 F17.218 F17.219 Z87.891 Severe chr onic obstructive pulmonary disease 246691870 J44.9 [id number] RHETT Manley [facility] [place] [address] [place] [address] 10/22/2022 15:24:22 10/22/2022 16:03:44 Bilateral shoulder joint pain 6037878566 1833769 M25.511 M25.512 Pain of ri ght shoulder joint 7815132531 1275671 M25.511 [id number] Ar Dhillon MD [facility] [place] [address] [place] [address] 11/12/2022 11:32:52 11/12/2022 12:13:27 Pain of right shoulder joint 0379573121 5425986 M25.511 Full thick ness rotator cuff tear 454686647 M75.121 patient has had some chronic issues [...] in patients in their 40s and 50s [id number] SAMANTHA Ozuna [facility] Internal Med [facility] [address] [facility], [address] [place] [address] 01/24/2023 15:14:08 01/24/2023 15:40:48 Chronic obstructive pulmonary disease 42050111 J44.9 On Bevespi, prn albuterol He needs to be taking his Bevespi daily, reminded him to do soFollowin g pulm- Dr. Stokes History of coronary artery bypass grafting 067194503 Z95.1 on plavix, ASAfollows [facility]- Dr. Elliott- has another appt in [address] surgery- Dr. Curry at [facility] Crohn's disease 72971878 K50.90 Following GI- Dr. Escobedo Hemorrhoids 43905022 K64 .9 using Anusol prn Nicotine dependence 5629 4008 F17.200 3 minutes spent with patient discussing risks, cessation options. Patient encouraged to quit. Continue wellbutrin call office if any change in mood or behavior Prediabetes 664310753 R7 3.03 continue diet/exerc ise efforts Vitamin D deficiency 347 75694 E55.9 on supplement Cobalamin deficiency 190 385004 E53.8 on b12 injections monthly Iron defic iency anemia 42840976 D50.9 on PO iron Hyperlipidemia 09975666 E78.5 on rosuvastat in Feeling irritable 200202 07 R45.4 on wellbutrin , he is aware of side effects, risks, benefitsca ll office if any change in mood or behaviorhe declines psychiatry referral and/or counseling referral today Normal weight 96672089 Z 68.23 recommend healthy, well balanced mealsfocus on lean meats, fresh vegetables , fresh fruits, whole grainsredu ce fast/proce ssed foods or eating out to no more than 1-2 times per weekaim to get 30 min of exercise most days of the week- walking is a great choice Slowing of urinary stream 83974672 R39.12 get appt with urology- has been referred he decided not to go as his symptoms improved Essential hypertension 12170517 I10 cardiology is working him up for [...] check Pain of ri ght shoulder joint 3795566522 5187514 M25.511 following ortho Postviral cough 21582392 4 B94.8 start medrol dose packcall office if no better after meds [id number] Rory desai MD [facility] [place] [address] [facility], [address] [place] [address] 07/17/2023 15:39:55 07/17/2023 16:20:20 Screening - NAD 545310783 Z13.9 C-scope: 11/2020: Dr Escobedo as per prior PCP note Get yearly flu shot, get tdap if not doneGet COVID 19 vaccine and its boostersGe t shingrix vaccine RTC in 3 months, do labs, ER if worse, he did verbalize his understand ing of the above Coronary arteriosclerosis 83948941 I25.10 S/p CABGOn ASANot on plavixSee cardiology Crohn's disease 12939308 K50.[address] Escobedo Hemorrhoids 73259827 K64 .9 Has taken anusol in the past Prediabetes 872353120 R7 3.03 Get labs Hyperlipidemia 09246976 E78.5 On rosuvastat in 20mg dailyGet labs Essential hypertension 42202907 I10 On amlodipine 5mg dailyGet labsSees Dr Elliott Chronic ob structive pulmonary disease 91420019 J44.9 On albuterolO n spirivaOn symbicortS ees Dr Stokes Vitamin D deficiency 347 11837 E55.9 Cigarette smoker 2465631 7 F17.210 LDCT 07/11/[address] Senavised to quit!US AAA at age 65 years Pain of le ft hip joint 6108467212 22298 M25.552 Serum barry min B12 below reference range 689023353 R79.89 Screening for malignant neoplasm of prostate 431172881 Z12.5 [id number] Pooja Bergeron NP [facility] [place] [address] [place] [address] 08/06/2023 14:15:40 08/06/2023 14:53:01 Pain of left hip joint 6744294425 13605 M25.552 Osteoarthr itis of left hip joint 1602261328 98885 M16.12 [id number] Piter Stokes MD [facility] Pulmonolo gy [place] [address] [place] [address] 09/02/2023 14:16:21 09/03/2023 08:22:04 Smoker 76541322 F17.218 F17.219 Z87.891 Severe chr onic obstructive pulmonary disease 380603565 J44.9 [id number] Rory desai MD [facility] Internal Med [facility] [address] [place] [address] [address] [place] [address] 12/25/2023 15:32:13 12/25/2023 16:18:34 Screening - NAD 740527904 Z13.9 C-scope: 11/2020: Dr Escboedo as per prior PCP note Get yearly flu shot, get tdap if not doneGet COVID 19 vaccine and its boostersGe t shingrix vaccine RTC in 3 months, do labs, ER if worse, he did verbalize his understand ing of the above Coronary arteriosclerosis 58878919 I25.10 S/p CABGOn ASANot on plavixSee cardiology Crohn's disease 09549668 K50.[address] Escobedo Hemorrhoids 35914792 K64 .9 Has taken anusol in the past Prediabetes 358182426 R7 3.03 Get labs Hyperlipidemia 42826576 E78.5 On rosuvastat in 20mg dailyGet labs Essential hypertension 26164707 I10 On amlodipine 5mg dailyGet labsSees Dr Elliott Chronic ob structive pulmonary disease 65993619 J44.9 On albuterol, renewed 12/25/[address]S e[address] Dr Stokes Vitamin D deficiency 347 28804 E55.9 Cigarette smoker 2565083 7 F17.210 LDCT 07/11/[address] Senavised to quit!US AAA at age 65 years Pain of le ft hip joint 9329450129 98378 M25.552 Pooja Julifs [employer] 08/06/2023 Serum barry min B12 below reference range 636440005 R79.89 Screening for malignant neoplasm of prostate 464664917 Z12.5 [id number] Rory desai MD [facility] Internal Med [address] [place] [facility] [address] [place] [address] 04/29/2024 16:13:56 04/29/2024 17:07:47 Screening - NAD 199236585 Z13.9 C-scope: 11/2020: Dr Escobedo as per prior PCP note Get yearly flu shot, get tdap if not doneGet COVID 19 vaccine and its boostersGe t shingrix vaccine RTC in 3 months, do labs, ER if worse, he did verbalize his understand ing of the above Coronary arteriosclerosis 08339393 I25.10 S/p CABGOn ASAOn plavix 01/29/2024 cardiology On coreg 6.25mg bidDr Earl 08/22/2023 , f/u in one month, start coreg and losartan Crohn's disease 76814410 K50.[address] Escobedo Hemorrhoids 91207862 K64 .9 Has taken anusol in the past Prediabetes 621013783 R7 3.03 Get labs Hyperlipidemia 72229511 E78.5 Not on rosuvastat in 20mg dailyOn atorvastat in 40mg daily given by Dr [place] [facility] labs Essential hypertension 47744144 I10 Not on amlodipine 5mg daily, On amlodipine 10mg dailyOn losartan 50mg dailyGet labsSees Dr Elliott D/c from hospital for pneumonia in 03/2024, does well now Chronic ob structive pulmonary disease 36592953 J44.9 On albuterol, renewed 04/29/[address] symbic[address]S e[address] Dr Stokes Vitamin D deficiency 347 44963 E55.9 Cigarette smoker 7899837 7 F17.210 LDCT 07/11/2022 LDCT 07/28/[address] Senavised to quit!US AAA at age 65 years Pain of le ft hip joint 9634768843 21257 M25.552 Pooja Castillo [employer] 08/06/2023 Cobalamin deficiency 190 314527 E53.8 Health Concerns Section Related Observation LastModified by Organization Detai ls LastModified Time None Recorded Concern Status LastModified by Organization Details LastModified Time None Recorded Advance Directives Directive N: Payers Encounter Date Sequence Insurance Name Policy Number Policy Bridges Covered Member ID Bridges Member ID Guarantor Name 07/17/2023 1 [facility] ON OR AFTER 11/23/20 (MEDICAID REPLACEMENT - HMO) Cirilo Chicas [id number] Cirilo Chicas 08/06/2023 1 [facility] ON OR AFTER 11/23/20 (MEDICAID REPLACEMENT - HMO) Cirilo Chicas [id number] Cirilo Chicas 09/02/2023 1 [facility] ON OR AFTER 11/23/20 (MEDICAID REPLACEMENT - HMO) Cirilo Chicas [id number] Cirilo Chicas 12/25/2023 1 [facility] ON OR AFTER 20 (MEDICAID REPLACEMENT - HMO) Cirilo Chicas [id number] Cirilo C Chicas 04/29/2024 1 [facility] - DOS ON OR AFTER 20 (MEDICAID REPLACEMENT - HMO) Cirilo Chicas [id number] Cirilo Nico Chicas Notes Date Note Type Note Provider Name and Address Organization Details Recorded Time 07/17/2023 text/html OV 07/17/2023:He re to establish care Past Hx:CADCrohn's diseaseCOPDSmoker Here as he has been having L hip pain, no acute or remote injury, no N/T but also hurts to climb and to squat Rory Looney MD [address] [place] [address], [place] [address], [place], [address], [facility] [employer] 07/17/2023 18:03:19 09/02/2023 text/html Primary care/Ref erring provider: Vicky Ozunatient is here to go over his COPD management.Initial development of shortness of breath: 2018Duration of shortness of breath: 6 yearsCondition of shortness of breath: stableTiming of shortness of breath: noneFrequency: up to 6 times a day on a bad dayLimits activities: yesAggravating factors: walking, running, stressAlleviating factors: restModified Medical [employer] (mMRC) Dyspnea Scale - Grade 1Grade 0 [...] yesDysphagia: noEdema: yesEnvironmental exposures:Nicotine smoke: 3/4 ppd 1982-present = 31.5 pack yearsPaint: noDye: noDust mites: [...] slight chance of dozing. Piter Stokes MD [address] [facility] [address], [place], [address], [facility] [employer] [facility] 09/02/2023 14:59:43 12/25/2023 text/html OV 07/17/2023:He re to establish care Past Hx:CADCrohn's diseaseCOPDSmoker Here as he has been having L hip pain, no acute or remote injury, no N/T but also hurts to climb and to squat OV 12/25/2023: Here for his routine apt, he is doing well today Rory Looney MD [address], [place], [address], [facility] [employer] [facility] 12/27/2023 12:41:22 04/29/2024 text/html OV 07/17/2023:He re [...] Looney MD [address], [place], [address], [facility] [employer] [facility] 05/14/2024 23:25:36
--- OUTSIDE RECORDS SUMMARY | 2024-06-18 06:33 | XMS_ITS | Data Portability ---
Author Organization [place] - [facility], [facility] Address [address] [place] [address] Care Team Providers Care Geography Teacher Name Role Phone JOSH JUNIOR Primary Care Provider JOSH JUNIOR Referring Provider [phone] Assessment No assessment recorded. Plan of Treatment [...] Recorded Time Pain of right shoulder joint [id number] 538620 Active 2021 Not Available [facility] 3 21:46:24 Cobalamin deficienc y 681004831 Active 2021 Not Available [facility] 3 21:46:24 Inflammat ory bowel disease 35140852 Completed Not Available [facility] 3 21:46:24 Anemia 574977023 Active 2021 Not Available [facility] 3 21:46:25 Bronchiti s [id number] Completed 201911/08/2020 Not Available [facility] 3 21:46:25 Crohn's disease 47978582 Active 2019 Not Available [facility] 3 21:46:25 Vitamin D deficienc y 15867204 Active 2021 Not Available [facility] 3 21:46:25 Hypertens luciano disorder 61882367 Active 2019 Not Available [facility] 3 21:46:25 Hypokalem ia 88206465 Active 2021 Not Available [facility] 3 21:46:25 Diarrhea 68341269 Active Not Available [facility] 3 21:46:25 Chronic bronchiti s 76406846 Active Not Available [facility] 3 21:46:25 Notes:Medical History: Rhini tis to [...] Time revision of colostomy completed Not Available [facility] 06/01/2022 21:39:25 partial resection of colon completed Not Available [facility] 06/01/2022 21:39:25 open reduction of fracture of femur completed Not Available [facility] 06/01/2022 21:39:25 colostomy completed Not Available [place] [address] 06/01/2022 21:39:25 Colonoscopy completed Not Available [facility] 06/01/2022 21:39:25 Imaging Results None recorded. Procedure Notes None recorded. Medical Equipment None Reported. Allergies Allergen ID Allergen Name Allergen Category Reaction Reaction Severity Criticality Documentation Date Start Date Code Code System Note Provider Name and Address Organization Details Recorded Time 86264 Dilaudid medicatio n itching Not available Not available 06/01/2022 95849 3 RxNorm Not Available [facility] 21:55:02 Medications Name Sig Start Date Stop [...] administ ered by the provider 10/11 completed [facility]: [id number] Not Available Not Available Not [...] Date Recorded Body mass index (BMI) Body mass index (BMI) Body mass index (BMI) Body mass index (BMI) Body mass index (BMI) Provider Name and Address Organization Details Last Updated DateTime 06/01/2022 23 kg/m2 23 kg/m2 23.3 kg/m2 24.1 kg/m2 24.4 kg/m2 Not Available [facility] 06/01/2022 21:42:11 Date Recorded Heart rate Heart rate Body height Body height Body height Body height Body height Systolic blood pressure Diastolic blood pressure Provider Name and Address Organization Details Last Updated DateTime 3 96 /min 95 /min 170.18 cm 170.18 cm 170.18 cm 170.18 cm 170.18 cm 128 mm[Hg] 80 mm[Hg] Not Available [facility] 3 21:42:13 Date Recorded Oxygen saturation Oxygen saturation in Arterial blood by Pulse oximetry Oxygen saturation Oxygen saturation in Arterial blood by Pulse oximetry Oxygen saturation Oxygen saturation in Arterial blood by Pulse oximetry Oxygen saturation Oxygen saturation in Arterial blood by Pulse oximetry Provider Name and Address Organization Details Last Updated DateTime 3 98 % 98 % 97 % 97 % 97 % 97 % 96 % 96 % Not Available [facility] 3 21:42:14 Date Recorded Pain severity - 0-10 verbal numeric rating [Score] - Reported Heart rate Heart rate Heart rate Heart rate Respiratory rate Respiratory rate Provider Name and Address Organization Details Last Updated DateTime 3 4 109 /min 96 /min 95 /min 104 /min 16 /min 17 /min Not Available [facility] 3 21:42:15 Date Recorded Body temperature Body temperature Body temperature Provider Name and Address Organization Details Last Updated DateTime 06/01/2022 97.6 [degF] 98.7 [degF] 97.2 [degF] Not Available [facility] 06/01/2022 21:42:16 Date Recorded Body weight Body weight Body weight Body weight Body weight Provider Name and Address Organization Details Last Updated DateTime 06/01/2022 40457.08 g 19817.08 g 35002.73 g 28853.22 g 18482.41 g Not Available [facility] 06/01/2022 21:42:17 Date Recorded Systolic blood pressure Diastolic blood pressure Systolic blood pressure Diastolic blood pressure Systolic blood pressure Diastolic blood pressure Provider Name and Address Organization Details Last Updated DateTime 3 130 mm[Hg] 82 mm[Hg] 142 mm[Hg] 88 mm[Hg] 130 mm[Hg] 89 mm[Hg] Not Available [facility] 3 21:42:12 Social History Question Answer Notes LastModified by Organization Details LastModified Time Tobacco Smoking Status Current Some Day Smoker Not Available [facility] 06/01/2022 21:37:52 Do You Have An Advance Directive? No MIGRATION.0107 [id number] Information not available 06/01/2022 What Is Your Level Of Alcohol Consumption? Occasional MIGRATION.0107 [id number] Information not available 06/01/2022 What Is Your Level Of Caffeine Consumption? Occasional MIGRATION.7 [id number] Information not available 06/01/2022 How Much Tobacco Do You Chew? None MIGRATION.0107 [id number] Information not available 06/01/2022 In The 14 Days Before Symptom Onset, Have You Had Close Contact With A Laboratory-conf irmed COVID-19 While That Case Was Ill? No MIGRATION.106 088713 Information not available 06/01/2022 In The 14 Days Before Symptom Onset, Have You Had Close Contact With A Person Who Is Under Investigation For COVID-19 While That Person Was Ill? No MIGRATION.010 325635 Information not available 06/01/2022 Are You Currently Employed? Yes MIGRATION.010 557488 Information not available 06/01/2022 What Type Of Diet Are You Following? REGULAR MIGRATION.106 907411 Information not available 06/01/2022 Which Illicit Or Recreational Drugs Have You Used? Cocaine, Cannabis Not Using, Daily Smoker MIGRATION.106 163958 Information not available 06/01/2022 Do You Or Have You Ever Used E-cigarettes Or Vape? Never Used Electronic Cigarettes MIGRATION.106 386453 Information not available 06/01/2022 What Is The Highest Grade Or Level Of School You Have Completed Or The Highest Degree You Have Received? 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 No MIGRATION.106 976183 Information not available 06/01/2022 Are There Any Guns Present In Your Home? No MIGRATION.0107 220017 Information not available 06/01/2022 Do You Use Insect Repellent Routinely? No MIGRATION.0107 [id number] Information not available 06/01/2022 Where Do You Live? [facility] MIGRATION.106 382863 Information not available 06/01/2022 Do You Have A Medical Power Of Steffen House Supervisor? No MIGRATION.010 574914 Information not available 06/01/2022 What Was The Date Of Your Most Recent Tobacco Screening? 11/14/2021 MIGRATION.0107 [id number] Information not available 06/01/2022 Do You Have Any Pets? Yes MIGRATION.010 152728 Information not available 06/01/2022 Do You Use Your Seat Belt Or Car Seat Routinely? Yes MIGRATION.0107 [id number] Information not available 06/01/2022 Do You Have Smoke And Carbon Monoxide Detectors In Your Home? Yes MIGRATION.0107 704452 Information not available 06/01/2022 At What Age Did You Start Smoking Tobacco? 17 MIGRATION.0107 386845 Information not available 06/01/2022 Are You Passively Exposed To Smoke? Yes MIGRATION.0107 [id number] Information not available 06/01/2022 Do You Or Have You Ever Used Smokeless Tobacco? Never Used Smokeless Tobacco MIGRATION.0107 [id number] Information not available 06/01/2022 Are There Any Smokers In Your House? No MIGRATION.0107 731195 Information not available 06/01/2022 How Much Tobacco Do You Smoke? 1 PPW Smokes 1 Ciggerettes A Week MIGRATION.0107 943208 Information not available 06/01/2022 Do You Feel Stressed (tense, Restless, Nervous, Or Anxious, Or Unable To Sleep At Night)? [id number] MIGRATION.106 610821 Information not available 06/01/2022 Do You Use Sunscreen Routinely? No MIGRATION.0107 241844 Information not available 06/01/2022 How Many Years Have You Smoked Tobacco? 30 MIGRATION.7 127475 Information not available 06/01/2022 Have You Recently Traveled Abroad? No MIGRATION.106 796224 Information not available 06/01/2022 Sex: Unknown Functional Status Question Answer Note LastModified by Organizat ion Details LastModified Time What is your exercise level? Moderate [id number] 0 Information not available 06/01/2022 Mental Status None recorded. Family History Relationship Description Onset Age of this Age Resolved Age Notes LastModified by Organization Details LastModified Time Father Kidney disease MIGRATION.698 [id number] Not available 06/01/2022 21:39:29 Father Hypertensive disorder MIGRATION.098 [id number] Not available 06/01/2022 21:39:30 Father Malignant neoplasm of brain MIGRATION.324 [id number] Not available 06/01/2022 21:39:30 Mother Hypertensive disorder MIGRATION.864 [id number] Not available 06/01/2022 21:39:30 Mother Diabetes mellitus MIGRATION.232 [id number] Not available 06/01/2022 21:39:30 Sister Hypertensive disorder MIGRATION.921 [id number] Not available 06/01/2022 21:39:30 Sister Diabetes mellitus MIGRATION.558 [id number] Not available 06/01/2022 21:39:30 Brother Hypertensive disorder MIGRATION.134 [id number] Not available 06/01/2022 21:39:30 Brother Diabetes mellitus MIGRATION.192 [id number] Not available 06/01/2022 21:39:30 Medical History Condition [...] INSOMNIA N HIGH CHOLESTEROL / HYPERLIPIDEMIA N HYPERTHYROIDISM N EYE PROBLEMS N NEUROLOGICAL PROBLEMS N EDEMA N CHRONIC PAIN SYNDROME N HYPOTHYROIDISM N CONSTIPATION N CAROTID BLOCKAGE N BACK / NECK PROBLEMS N HAVE YOU BEEN HOSPITALIZED OR SEEN IN [facility] IN THE PAST YEAR ? Y ATHEROSCLEROSIS N BREAST PROBLEMS N DIALYSIS N ECZEMA N OSTEOPOROSIS N ARTHRITIS N APPENDICITIS N DIABETES, TYPE N BAD TEETH N ENT N HEARTBURN / REFLUX N AUTISM SPECTRUM DISORDER (ASD) N HEPATITIS / LIVER DISEASE N PULMONARY DISEASE N GOUT N SLEEP DISORDER N ALZHEIMER'S DISEASE N Brain Problems N HERPES N DEMENTIA N SEIZURES/EPILEPSY N HEADACHES/MIGRAINES N VASCULAR DISEASE N PACEMAKER N Blood Disorder N DIZZINESS N KIDNEY DISEASE N HEART DISEASE/HEART PROBLEMS Y MULTIPLE SCLEROSIS N CARDIAC ARRHYTHMIA N CANCER: SPECIFY N ANESTHESIA COMPLICATIONS N Gall Stones N ATRIAL FIBRILLATION N PULMONARY EMBOLISM N AUTOIMMUNE DISEASE N ABDOMINAL PAIN N Immunizations Vaccine Type Date Status Note Provider Nam e and Address Organization Details Recorded Time COVID-19, mRNA, LNP-S, PF, 30 mcg/0.3 mL dose 12/25/2020 completed Not Available [facility] 3 21:54:46 COVID-19, mRNA, LNP-S, PF, 30 mcg/0.3 mL dose 12/04/2020 completed Not Available [facility] 3 21:54:46 Influenza, split virus, quadrivalent, PF 04/06/2021 completed Not Available [facility] 3 21:54:46 Influenza, split virus, quadrivalent, PF 05/06/2022 completed Not Available [facility] 3 21:54:46 Past Encounters Encounter ID Performer Location Encounter Start Date Encounter Closed Date Diagnosis/Indication Diagnosis SNOMED-CT Code Diagnosis ICD10 Code Diagnosis Note [id number] _ATHENA_M IGRATION_ DEFAULT_1 _5 , 08/01/2020 00:00:00 08/01/2020 16:37:44 [id number] DISP_RB GASTROENT EROLOGY [address] [facility] [address] [place] [address] 09/20/2020 00:00:00 09/20/2020 15:25:02 [id number] _ATHENA_M IGRATION_ DEFAULT_1 _5 , 11/03/2020 00:00:00 11/03/2020 17:00:30 [id number] _ATHENA_M IGRATION_ DEFAULT_1 _5 , 11/09/2020 00:00:00 11/09/2020 09:53:13 [id number] _ATHENA_M IGRATION_ DEFAULT_1 _5 , 01/01/2021 00:00:00 01/01/2021 22:08:04 [id number] _ATHENA_M IGRATION_ DEFAULT_1 _5 , 02/05/2021 00:00:00 02/05/2021 20:36:33 [id number] _ATHENA_M IGRATION_ DEFAULT_1 _5 , 03/05/2021 00:00:00 03/05/2021 17:43:24 [id number] _ATHENA_M IGRATION_ DEFAULT_1 _5 , 03/05/2021 00:00:00 03/05/2021 15:11:04 [id number] _ATHENA_M IGRATION_ DEFAULT_1 _5 , 03/16/2021 00:00:00 03/16/2021 15:46:45 [id number] _ATHENA_M IGRATION_ DEFAULT_1 _5 , 04/06/2021 00:00:00 04/06/2021 11:56:13 [id number] _ATHENA_M IGRATION_ DEFAULT_1 _5 , 05/04/2021 00:00:00 05/04/2021 14:43:21 [id number] _ATHENA_M IGRATION_ DEFAULT_1 _5 , 06/15/2021 00:00:00 06/15/2021 17:13:13 [id number] _ATHENA_M IGRATION_ DEFAULT_1 _5 , 06/18/2021 00:00:00 10/12/2021 15:07:07 [id number] _ATHENA_M IGRATION_ DEFAULT_1 _5 , 07/11/2021 00:00:00 07/11/2021 15:09:46 [id number] _ATHENA_M IGRATION_ DEFAULT_1 _5 , 11/14/2021 00:00:00 11/14/2021 10:20:15 [id number] _ATHENA_M IGRATION_ DEFAULT_1 _5 , 05/06/2022 00:00:00 05/06/2022 16:43:34 Health Concerns Section Related Observation LastModified by Organization Detai ls LastModified Time None Recorded Concern Status LastModified by Organization Details LastModified Time None Recorded Advance Directives Directive N: Payers None recorded.
--- NOTE | 2024-06-18 07:31 | PC.NURSE ---
This RN took over care of patient. Patient resting in stretcher with lights off at this time. Patient denies needs at this time.
--- NOTE | 2024-06-18 09:41 | PC.NURSE ---
Respiratory called for breathing treatment
[2024-06-18] MEDS: IPRATROPIUM BR 0.02% INH SOLN 0.5 MG/2.5 ML VIAL INHALATION (10:06)
[2024-06-18] MEDS: ALBUTEROL SULFATE NEB 2.5 MG/3 ML INH INHALATION (10:06)
--- NOTE | 2024-06-18 14:09 | PM.IMHP ---
H&P: HPI History of Present Illness Date/Time: 06/18/24 14:09 Chief Complaint: SOB Narrative: 58-year-old male past medical history of hypertension and COPD presented to the ER on account of shortness of breath and wheezing. Patient reported he was at [facility] 2 days ago when he was treated and released however yesterday started having no shortness of bread accompanied with wheezing and dry cough, he presented to our ER on account of worsening symptoms. Denies any chest pain no vomiting no abdominal pain no diarrhea no dysuria no focal symptoms. ER evaluation notable for evaluation notable for temperature 98.1?, heart rate 1 1 2, respiratory 27, blood pressure 183/90, saturating 98% on room air. Labs WBC 11.3, RSV positive, CXR negative, EKG sinus tachycardia no acute ST-T changes Patient was given Duoneb treatment prior to admission. Review of Systems Review of Systems: all other systems were reviewed and negative except as noted in the HPI above Meds Home Medications and Allergies Home Medications ?Medication ?Instructions ?Recorded ?Confirmed ?Type benzonatate 200 mg capsule 200 mg PO TID PRN cough #21 caps 05/30/24 Rx prednisone 20 mg tablet 40 mg (2 x 20 mg) PO DAILY 5 days 05/30/24 Rx #10 tabs Allergies Allergy/AdvReac Type Severity Reaction Status Date / Time No Known Allergies Allergy Verified 05/30/24 05:56 Vital Signs Vital Signs - 24 hr 06/18/24 01:49 06/18/24 01:49 06/18/24 02:50 Temperature 98.1 F Pulse Rate 112 H 102 H Respiratory Rate 27 H 21 H Blood Pressure 183/90 H Pulse Oximetry 98 98 Oxygen Delivery Room Air Room Air 06/18/24 03:01 06/18/24 04:01 06/18/24 04:08 Temperature Pulse Rate 110 H 124 H 121 H Respiratory Rate 24 H 21 H 24 H Blood Pressure 175/100 H 164/96 H Pulse Oximetry Oxygen Delivery 06/18/24 05:01 06/18/24 07:06 06/18/24 07:07 Temperature Pulse Rate 127 H 118 H 117 H Respiratory Rate 19 21 H 18 Blood Pressure 159/92 H 134/99 H Pulse Oximetry 96 96 96 Oxygen Delivery 06/18/24 07:15 06/18/24 07:30 06/18/24 07:45 Temperature Pulse Rate 116 H 116 H 114 H Respiratory Rate 18 20 17 Blood Pressure Pulse Oximetry 96 97 96 Oxygen Delivery 06/18/24 08:02 06/18/24 09:01 06/18/24 09:15 Temperature Pulse Rate 116 H 112 H 107 H Respiratory Rate 17 17 17 Blood Pressure 182/81 H 149/96 H Pulse Oximetry 95 96 Oxygen Delivery 06/18/24 09:30 06/18/24 09:45 06/18/24 10:00 Temperature Pulse Rate 123 H 109 H 108 H Respiratory Rate 32 H 18 22 H Blood Pressure Pulse Oximetry 97 96 97 Oxygen Delivery 06/18/24 10:01 06/18/24 10:09 06/18/24 10:10 Temperature Pulse Rate 109 H 108 H 108 H Respiratory Rate 19 20 20 Blood Pressure 164/98 H Pulse Oximetry 97 96 Oxygen Delivery Room Air 06/18/24 10:15 06/18/24 10:20 06/18/24 10:30 Temperature Pulse Rate 120 H Respiratory Rate 20 Blood Pressure Pulse Oximetry 100 98 Oxygen Delivery 06/18/24 10:52 06/18/24 11:00 06/18/24 11:01 Temperature Pulse Rate Respiratory Rate Blood Pressure 165/88 H Pulse Oximetry 98 95 97 Oxygen Delivery 06/18/24 11:15 06/18/24 11:30 06/18/24 13:21 Temperature Pulse Rate Respiratory Rate Blood Pressure Pulse Oximetry 98 95 97 Oxygen Delivery 06/18/24 13:33 06/18/24 13:46 Temperature Pulse Rate 80 Respiratory Rate 16 Blood Pressure Pulse Oximetry 98 97 Oxygen Delivery Exam Narrative: General: alert and comfortable Eyes: EOMI, PERRLA ENNT External ears normal, Neck is supple, no masses, Respiratory systems: bilateral wheezing Cardiovascular S1, S2, normal rhythm, no murmur, rub, or gallop; no thrill or palpable murmurs on palpation. Gastrointestinal: soft, non-tender, and non-distended abdomen with no masses; BS present Skin: no rash, lesions, ulcerations, subcutaneous nodules or induration Musculoskeletal: no abnormality and no tenderness, normal ROM Neurologic: Alert and oriented x3, non focal H&P: Results Labs Labs: Short CBC 06/18/24 Range/Units 02:08 WBC 11.3 H (4.5-10.0) K/mm3 Hgb 11.6 L (14.0-18.0) g/dL Hct 35.4 L (42.0-52.0) % Plt Count 315 (150-375) k/mm3 BMP 06/18/24 02:56 Sodium 137 Potassium 3.5 Chloride 107 Carbon Dioxide 23 BUN 27 H D Creatinine 0.99 Glucose 99 Calcium 8.3 L Liver Function 06/18/24 Range/Units 02:56 Total Bilirubin 0.5 (0.2-1.3) mg/dL AST 29 (17-59) U/L ALT 33 (6-50) U/L Alkaline Phosphatase 93 (38-126) U/L Albumin 3.3 L (3.5-5.1) g/dL Assessment and Plan Assessment and plan (1) Respiratory syncytial virus (RSV) infection: Code(s): B33.8 - Other specified viral diseases Status: Acute (2) Acute exacerbation of chronic obstructive pulmonary disease (COPD): Code(s): J44.1 - Chronic obstructive pulmonary disease with (acute) exacerbation Status: Acute Plan COPD exacerbation wheezing on auscultation presented with SOB RSV positive COntineu Duoneb treatment and IV steroid monitor RSV infection with bronchospasm continue above care HTN started on Amlodipine and HCTZ monitor DVT prophylaxis on Sq Lovenox Full code Hospitalist MIPS Advance Care Plan I have confirmed that the patient's Advanced Care Plan is present, code status is documented, or surrogate decision maker is listed in patient medical record.: Yes Medication Reconciliation I have utilized all available resources to obtain, update and review the patients current medications (includes all prescriptions, OTC, herbals, cannabis, and nutritional supplements).: Yes
[2024-06-18] MEDS: hydroCHLOROthiazide 12.5 MG CAPSULE PO ×2 (15:24→18:23)
[2024-06-18] MEDS: amLODIPine BESYLATE 5 MG TABLET PO ×2 (15:24→18:23)
[2024-06-18] MEDS: methylPREDNISolone SOD SUCC 40 MG VIAL IV PUSH ×2 (15:25→21:12)
--- NOTE | 2024-06-18 16:25 | ADMGEN ---
This patient, Cirilo Cali, was admitted to Medical Room 252-01. Patient/family oriented to hospital policies and general routines including ID bracelet, bed and alarms, visiting hours, pain management, procedures, bathroom and other care routines, personal items, smoking policy, room service/diet, and visiting hours. Information on how to activate the Rapid Response Team has been discussed. Patient/Family are encouraged to report perceived risks to care and to ask questions if they do not understand what they are told or what they should do.
[2024-06-18] MEDS: IPRATROPIUM 0.5 MG/ALBUTEROL SULFATE 2.5 MG AMPUL.NEB 3 ML INHALATION (20:00)
[2024-06-18] MEDS: MELATONIN 5 MG TABLET 10 MG PO (22:28)
[2024-06-19] VITALS (8 sets, daily range): BP systolic 169; BP diastolic 89; PULSE 88–110; RESP 20; TEMP 36.6; O2SAT 94–97
[2024-06-19] MEDS: IPRATROPIUM 0.5 MG/ALBUTEROL SULFATE 2.5 MG AMPUL.NEB 3 ML INHALATION ×2 (01:44→07:46)
[2024-06-19] MEDS: methylPREDNISolone SOD SUCC 40 MG VIAL IV PUSH (05:25)
[2024-06-19] MEDS: amLODIPine BESYLATE 5 MG TABLET PO (09:11)
[2024-06-19] MEDS: ENOXAPARIN 40 MG/0.4 ML SYRINGE SUB-Q (09:11)
[2024-06-19] MEDS: hydroCHLOROthiazide 12.5 MG CAPSULE PO (09:11)
--- NOTE | 2024-06-19 12:57 | PM.DS ---
DS: Admitting Diagnosis Discharge Date 06/19/24 Admitting Diagnosis SOB DS: Discharge Diagnosis Discharge Diagnosis (1) Acute exacerbation of chronic obstructive pulmonary disease (COPD): Code(s): J44.1 - Chronic obstructive pulmonary disease with (acute) exacerbation Status: Acute (2) Respiratory syncytial virus (RSV) infection: Code(s): B33.8 - Other specified viral diseases Status: Acute DS: Summary Hospital Course Hospital Course: 58-year-old male past medical history of hypertension and COPD presented to the ER on account of shortness of breath and wheezing. Patient reported he was at [facility] 2 days ago when he was treated and released however yesterday started having no shortness of bread accompanied with wheezing and dry cough, he presented to our ER on account of worsening symptoms. Denies any chest pain no vomiting no abdominal pain no diarrhea no dysuria no focal symptoms. ER evaluation notable for evaluation notable for temperature 98.1?, heart rate 1 1 2, respiratory 27, blood pressure 183/90, saturating 98% on room air. Labs WBC 11.3, RSV positive, CXR negative, EKG sinus tachycardia no acute ST-T changes Patient was given Duoneb treatment prior to admission. Patient was started on IV steroids, bronchodilators, wheezing has markedly improved and patient was sitting comfortably at bedside this morning. He si still on room air Patient discharged on PO Prednisone 40mg x5 days, refilled his SPiriva, Symbicort, and COmbivent. Also refilled his antihypertensives Losartan, Amlodipine and Coreg [facility] 3-5- days COPD exacerbation wheezing on auscultation presented with SOB RSV positive COntineu Duoneb treatment and IV steroid monitor RSV infection with bronchospasm continue above care HTN started on Amlodipine and HCTZ monitor Time Spent with Patient Time attestation: Total time spent providing and/or coordinating discharge services: Discharge Plan Discharge Attending physician on discharge: Ramiro Case Discharging Clinician: Ramiro Case Anticipated Discharge Date/Time: 06/19/24 12:49 Patient Disposition: Home, Self-Care Activity: as tolerated Diet: as tolerated Patient Instructions: Antibiotic Form Patient Language: Egyptian Stand Alone Forms: General Discharge Information Follow-up/Referrals: UNKNOWN,DOCTOR [Primary Care Provider] - (F/u with PCP in 3-5 days ) Discharge Medications: New prednisone 10 mg tablet 40 mg PO DAILY 5 Days Qty: 20 0RF Rx Instructions: see taper instructions Continued atorvastatin 40 mg tablet 40 mg PO DAILY benzonatate 200 mg capsule 200 mg PO TID PRN (Reason: cough) Qty: 21 0RF amlodipine 10 mg tablet 10 mg PO DAILY 30 Days Qty: 0 0RF Spiriva Respimat 2.5 mcg/actuation mist 2 inh INHALATION Q24H Qty: 1 0RF carvedilol 6.25 mg tablet 6.25 mg PO Q12H Qty: 30 0RF losartan 50 mg tablet 50 mg PO .daily Qty: 30 0RF albuterol sulfate 90 mcg/actuation HFA aerosol inhaler 1 puff INHALATION Q6-8H PRN (Reason: shortness of breath or wheezing) Qty: 1 2RF budesonide-formoterol [Symbicort] 160-4.5 mcg/actuation HFA aerosol inhaler 1 inh INHALATION Q12H PRN (Reason: bronchodilation) Qty: 1 2RF Discontinued amlodipine 5 mg tablet 5 mg PO DAILY prednisone 20 mg tablet 40 mg PO DAILY 5 Days Qty: 10 0RF Date of admission: 06/18/24 04:33 Primary Care Provider: UNKNOWN,DOCTOR Admitting Provider: Ramiro Case Attending physician on admission: Ramiro Case Condition: Improved
[2024-06-19] MEDS: lisinopriL 5 MG TABLET PO (13:17)
== END 2024-06-19 13:35 | disposition home or self-care (01) | DRG 723 ==
LOC: ANHED 05:07 → ANHIMU 05:14 → ANH2MED 16:03
PROVIDERS: Admitting Provider Internal Medicine; Emergency Provider Emergency Medicine; Visit Provider Internal Medicine
DX: B33.8 Other specified viral diseases (principal); J44.1 Chronic obstructive pulmonary disease with (acute) exacerbation; J98.01 Acute bronchospasm; I10 Essential (primary) hypertension
CPT/HCPCS: 36415; 71045; 80053; 83735; 85025; 87637; 93005; 94640; 96374; 96375; 99285; A9270; J1650; J2919; J3475

== ENCOUNTER 2024-07-06 08:16 | Emergency (ER) | payer OTHER, SELFPAY ==
--- NOTE | ~2024-07-06 | XR_ITS ---
Clinical Indication: Cough, fever PA and lateral views of the chest: Comparison: 06/18/2024 Findings: Stable calcified right lung granuloma. The lungs are otherwise clear, without evidence of f ocal consolidation or pleural effusion. Cardiomediastinal silhouette is stable, status post CABG. Ozzy laura and soft tissues are unremarkable. Impression: No acute abnormality. Chronic findings, as above. Reviewed, dictated and finalized at location M. ICE OPERATOR Impression: No acute abnormality. Chronic findings, as above.
[2024-07-06 08:20] VITALS: BP 142/86; PULSE 100; RESP 18; TEMP 38.2; O2SAT 96
[2024-07-06 08:28] VITALS: BP 155/95; PULSE 100; RESP 18; TEMP 38.2; O2SAT 100
[2024-07-06] MEDS: ACETAMINOPHEN 500 MG TABLET 1000 MG PO (08:32)
--- OUTSIDE RECORDS SUMMARY | 2024-07-06 08:45 | XMS_ITS | Referral Summary ---
Author Organization [facility] [place] Address [address] [place] [address] Care Team Providers Care Director Instructional Material Name Role Phone Hemant Lopez MD Primary Care Provider [phone] Allergies No known active allergies Medications ergocalciferol [...] Diagnosed Date Coronary artery disease invo lving elem heart without angina pectoris 03/15/2021 Overview (03/19/2021): Added automatically from request for surgery [id number] Social History Tobacco Use Types Packs/Day Years Used Date Smoking Tobacco: Every Day Sex and Gender Information Value Date Recorded Sex Assigned at Not on file Legal Sex Male 12:12 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 Gender Identity Not on file Sexual Orientation Not on file Last Filed Vital Signs Vital Sign Reading Time Taken Comments Blood Pressure 130/76 04/26/2021 10:02 AM 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 Pulse 81 04/26/2021 10:02 AM 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 Temperature 37.2 C (98.9 F) 03/25/2021 7:58 AM CDT Respiratory Rate 14 04/26/2021 10:02 AM 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 Oxygen Saturation 97% 04/26/2021 10:02 AM 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 Inhaled Oxygen Concentration - - Weight 61.7 kg (136 lb) 04/26/2021 10:02 AM 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 Height 170.2 cm (5' 7 ) 04/26/2021 10:02 AM 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 Body Mass Index 21.3 04/26/2021 10:02 AM 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 Plan of Treatment Not on file Medical Devices Implanted Type Area Helicopter Repairer Device Identifier Shelf Expiration Date Model / Serial / Lot [facility] 24-025-44 Titanium 1.8mm 8 Hole Sternal X Plate Bone Mini Sternotomy - [id number] Implanted:Qty: 3 on 03/20/2021 by Malathi Curry MD at [facility] N/A: [facility] 24-025-44 - 09 / / [facility] [id number] Drill-Free Maxdrive 2.3mm 13mm Self Retaining Lock Sternal Screw - [id number] Implanted:Qty: 20 on 03/20/2021 by Malathi Curry MD at [facility] N/A: [facility] 24-023-13 - 91 / / [facility] 24-023-15 Drill-Free Maxdrive 2.3mm 15mm Self Retain Sternal Screw Bone - [id number] Implanted:Qty: 4 on 03/20/2021 by Malathi Curry MD at [facility] N/A: [facility] 24-023-15 - 91 / / Insurance [address] [address] Advance Directives For more information, please contact: [phone] * Full Code (Latest Code Status on File) Date Activated Date Inactivated Comments 03/16/2021 10:12 AM 03/25/2021 5:30 PM Care Teams Director Instructional Material Relationship Specialty Start Date End Date Hemant Lopez MD PCP - General 03/22/21
--- OUTSIDE RECORDS SUMMARY | 2024-07-06 08:45 | XMS_ITS | Encounter Summary ---
Author Organization [facility] Address [address] [place] [address] Care Team Providers Care Television Mechanic Name Role Phone Hemant Lopez MD Primary Care Provider [phone] Sabine Looney MD Primary Care Provider Encounter Details Date Type Department Care Team (Late st Contact Info) Description 09/01/2018 Hospital Follow-up Call [facility] Telemetry Unit [address] [place] [address] Brina Dick Social History Tobacco Use Types [...] documented as of this encounter Care Teams Television Mechanic Relationship Specialty Start Date End Date Hemant Lopez MD PCP - General 04/09/16 02/15/24 Sabine Looney MD [address] [phone] PCP - General INTERNAL MEDICINE 02/16/24 documented as of this encounter
--- OUTSIDE RECORDS SUMMARY | 2024-07-06 08:45 | XMS_ITS | Clinical Summary ---
Author Organization [facility] Care Team Providers Care Meat Grading Machine Operator Name Role Phone Unavailable Primary Care Provider Unavailabl e Social History Tobacco Use Types Packs/Day Years Used Date Smoking Tobacco: Never Assessed Sex and Gender Information Value Date Recorded Sex Assigned at Not on file Legal Sex Male 12:56 PM BAKER CHEF Gender Identity Not on file Sexual Orientation [...]
--- OUTSIDE RECORDS SUMMARY | 2024-07-06 08:45 | XMS_ITS | CONTINUITY OF CARE DOCUMENT ---
Author Name kiki ishclary Address Unknown Organization [facility] Address [address] [place] [address] Phone [phone] Care Team Providers Care Photographic Spotter Name Role Phone Wilbur Elliott MD Unavailable JOSH JUNIOR Unavailable [phone] RORY JACKSON MD Unavailable [phone] PROBLEMS Condition Status Date Provider Notes Cardiomyopathy, EF 45% active Bhavna samuels SEED POTATO CUTTER Hyperlipidemia active Bhavna Robin NP CAD s/p CABG active Wilbur Elliott MD Dyspnea on exertion active Wilbur Elliott MD Crohn's disease active Wilbur Elliott MD Tobacco abuse active Wilbur Elliott MD Shortness of breath active Wilbur Elliott MD HTN essential active Wilbur Elliott MD Chest pain active Wilbur Elliott MD Cardiology examination active Wilbur Elliott MD ENCOUNTERS Date Type Provider Location Encounter Diag nosis - In-person encounter Office Visit Wilbur Elliott MD [place] [facility] - In-person encounter Office Visit Wilbur Elliott MD [place] [facility] - In-person encounter Office Visit Wilbur Elliott MD [place] [facility] - In-person encounter Office Visit Wilbur Elliott MD [place] [facility] - In-person encounter Office Visit Wilbur Elliott MD [place] [facility] HyperlipidemiaCardiomyopa thy, EF 45% - In-person encounter Office Visit Wilbur Elliott MD [place] [facility] CAD s/p CABG - In-person encounter Office Visit Wilbur Elliott MD [place] [facility] Cardiology examinationChest painHTN essentialShortness of breathTobacco [...] 95 % Jimy weight E&M 145 [lb_av] Jmiy y height E&M 67 [in_i] Jimy y [...] blood pressure, diastolic 94 mm[Hg] Ca therine [place] blood pressure, systolic 135 mm[Hg] Cat herine [place] oxygen saturation, oximetry 97 % Narda [place] respiratory rate E&M 16 /min Catheri ne Rolando pulse rate 94 /min Narda [place] weight E&M 146 [lb_av] Narda [place] blood pressure, cuff size regular Ca therine [place] height E&M 67 [in_i] Narda [place] Body Mass Index (Ratio) 22.71 kg/m2 Riley Elliott MD blood pressure, diastolic 80 mm[Hg] Ca therine [place] blood pressure, systolic 120 mm[Hg] Cat herine Rolando oxygen saturation, oximetry 94 % Narda [place] pulse rate 48 /min Narda [place] respiratory rate E&M 14 /min Catheri ne [place] weight E&M 145 [lb_av] Narda Rolando blood pressure, cuff size regular Ca therine [place] height E&M 67 [in_i] Narda [place] Body Mass Index (Ratio) 23.02 kg/m2 Riley Elliott MD blood pressure, diastolic 109 mm[Hg] Ch astity Rayma blood pressure, systolic 179 mm[Hg] Fidelia stity [...] Take tablet by mouth as directed Narda [place] Humira Pen 40 mg/0.8 mL pen injector kit active Inject pen injector once a month Narda [place] ergotamine tartrate unspecified unspecified active Narda [place] hydrocortisone acetate 1% cream active Narda Rolando [...] go to ER - Anna Marie Pelaezglia 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 [employer] 9-4.8 mcg HFA aerosol inhaler [...] as a smoker 20+ Anna Marie Ventimiglia [facility] cigarette use yes Anna Marie Mariami glia [facility] smoking status Current every da y smoker Anna Marie Mariamiglia [facility] smoking status Current every da y smoker [...] cess ation, patient education and counseling yes Maryanne Carpenter number of years as a smoker [...] years as a smoker 20+ Bhavna Negronll SEED POTATO CUTTER cigarette use yes Bhavna Negronzane [facility] smoking status Current every da y smoker Bhavna Robin SEED POTATO CUTTER social history reviewed E&M revi ewed - no changes required Bhavna Negronzane ALFARO social history E&M S moking History: P atient currently smokes every day. P atient has been counseled to quit. Wilbur Elliott MD social history reviewed E&M revi ewed - no changes required Wilbur Elliott MD smoking/tobacco cess ation, patient education and counseling yes Narda Rolando number of years as a smoker 20+ [...] Payer name Policy type / Coverage type [place] [place]ICA[place] (2) Medicaid [id number] ADVANCE DIRECTIVES Name Date DISCUSSED - NO DECISION MADE TREATMENT PLAN Date Name Performer [id number],C,n eed to know what medicines he is on. need to check labs as well Wilbur Elliott MD [id number],C, D aurora [place]. Continue on his present meds including a statin but currently main issue is getting BP down. Wilbur Elliott MD [id number],C,H Is repeat BP was 176 and I [...] mouth twice a day Wilbur Elliott MD [id number],S, H is updated medication list for this problem includes: Rosuvastatin 20 Mg Tablet (Rosuvastatin) ..... Take by mouth once a day Cholestyramine (with Sugar) 4 Gram Powder (Cholestyramine (with sugar)) Wilbur Elliott MD [id number],S,W ill repeat an echo to see where his heart function is and also renal artery duplex to check his kidneys Wilbur Elliott MD [id number],S, Wilbur Elliott MD [id number],S,I have recommended to him to keep track of his BP at home BP today: 175/114 P rior BP: 135/94 (07/05/2021) His updated medication list for this problem includes: Amlodipine 10 Mg Tablet (Amlodipine) ..... Take 1 tablet by mouth once a day Carvedilol 6.25 Mg Tablet (Carvedilol) ..... Take 1 tablet by mouth twice a day Wilbur Elliott MD [id number],S,W ill repeat an echo to see where his heart function is and also renal artery duplex to check his kidneys Wilbur Elliott MD [id number],S, E F 45% on cath 02/2021. Continues on coreg. Bhavna Robin NP [id number],B, R esolved since CABG save for some tingling and numbness over his sternal incision site. Bhavna Robin NP [id number],S, H is updated medication list for this problem includes: Amlodipine 10 Mg Tablet (Amlodipine) ..... Take 1 tablet by mouth once a day Carvedilol 6.25 Mg Tablet (Carvedilol) ..... Take 1 tablet by mouth twice a day BP today: 135/94 P rior BP: 120/80 (04/06/2021) Bhavna Robin NP [id number],S, H e underwent bypass and has done quite well. He deferred on cardiac rehab because of his work schedule. He exerts himself regularlt at work without trouble. Bhavna Robin NP [id number],S, P t still smoking. Advised to stop smoking again. 1PPW. Bhavna Negronzane ALFARO [id number],S, L ast LDL 31. His updated medication list for this problem includes: Rosuvastatin 20 Mg Tablet (Rosuvastatin) ..... Take by mouth once a day Cholestyramine (with Sugar) 4 Gram Powder (Cholestyramine (with sugar)) Bhavna Negronzane ALFARO [id number],S,H e underwent bypass and has done quite well but needs cardiac rehab. Wilbur Elliott MD [id number],S,P t still smoking. Advised to stop smoking again. Wilbur Elliott MD [id number],S, H is updated medication list for this problem includes: Amlodipine 10 Mg Tablet (Amlodipine) ..... Take 1 tablet by mouth once a day Carvedilol 6.25 Mg Tablet (Carvedilol) ..... Take 1 tablet by mouth twice a day BP today: 120/80 P rior BP: 179/109 (03/08/2021) Wilbur Elliott MD [id number],W, C hest pressure occuring with exertion with some SOB and diaphoresis. His symptoms are fairly typical for ischemia. I think that because his chest pain is occurring with exertion and his EKG is somewhat abnormal, we will proceed straight to a cardiac cath. Wilbur Elliott MD [id number],S, T he Patient was reencouraged to stop smoking. Wilbur Elliott MD Cardiology: P t still smoking. Advised to stop smoking again. 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 Anna Mariejuana Díaz [facility] Cardiology: Tay tracey well. Notes infrequent chest pain Anna Marie Díaz [facility] Cardiology Anna Mariejuana lama [facility] Cardiology:need to k now what medicines he [...]
--- OUTSIDE RECORDS SUMMARY | 2024-07-06 08:45 | XMS_ITS | Data Portability ---
Author Organization [place] - [facility], [facility] Address [address] [place] [address] Care Team Providers Care Director Content Marketing Name Role Phone JOSH JUNIOR Primary Care Provider JOSH JUNIOR Referring Provider [phone] Assessment No assessment recorded. Plan of Treatment [...] Recorded Time Pain of right shoulder joint [id number] 285414 Active 2021 Not Available [facility] 3 21:46:24 Cobalamin deficienc y 030441314 Active 2021 Not Available [facility] 3 21:46:24 Inflammat ory bowel disease 67424926 Completed Not Available [facility] 3 21:46:24 Anemia 209214219 Active 2021 Not Available [facility] 3 21:46:25 Bronchiti s 99728904 Completed 201911/08/2020 Not Available [facility] 3 21:46:25 Crohn's disease 11053298 Active 2019 Not Available [facility] 3 21:46:25 Vitamin D deficienc y 31703391 Active 2021 Not Available [facility] 3 21:46:25 Hypertens luciano disorder 33582718 Active 2019 Not Available [facility] 3 21:46:25 Hypokalem ia 84479424 Active 2021 Not Available [facility] 3 21:46:25 Diarrhea 69132490 Active Not Available [facility] 3 21:46:25 Chronic bronchiti s 83691843 Active Not Available [facility] 3 21:46:25 Notes:Medical History: Rhini tis [...] Time revision of colostomy completed Not Available [facility] 06/01/2022 21:39:25 partial resection of colon completed Not Available [facility] 06/01/2022 21:39:25 open reduction of fracture of femur completed Not Available [facility] 06/01/2022 21:39:25 colostomy completed Not Available [place] [id number] 06/01/2022 21:39:25 Colonoscopy completed Not Available [facility] 06/01/2022 21:39:25 Imaging Results None recorded. Procedure Notes None recorded. Medical Equipment None Reported. Allergies Allergen ID Allergen Name Allergen Category Reaction Reaction Severity Criticality Documentation Date Start Date Code Code System Note Provider Name and Address Organization Details Recorded Time 94605 Dilaudid medicatio n itching Not available Not available 06/01/2022 63120 3 RxNorm Not Available [facility] 21:55:02 Medications Name Sig Start Date [...] administ ered by the provider 10/11 completed [facility]: [id number] Not Available Not Available [...] mass index (BMI) Body mass index (BMI) Heart rate Heart rate Body height Body height Body height Body height Body height Oxygen saturation Oxygen saturation in Arterial blood by Pulse oximetry Oxygen saturation Oxygen saturation in Arterial blood by Pulse oximetry Oxygen saturation Oxygen saturation in Arterial blood by Pulse oximetry Oxygen saturation Oxygen saturation in Arterial blood by Pulse oximetry Pain severity - 0-10 verbal numeric rating [Score] - Reported Heart rate Heart rate Heart rate Heart rate Respiratory rate Respiratory rate Body temperature Body temperature Body temperature Body weight Body weight Body weight Body weight Body weight Systolic blood pressure Diastolic blood pressure Systolic blood pressure Diastolic blood pressure Systolic blood pressure Diastolic blood pressure Systolic blood pressure Diastolic blood pressure Provider Name and Address Organization Details Last Updated DateTime 3 23 kg/m2 23 kg/m2 23.3 kg/m2 24.1 kg/m2 24.4 kg/m2 96 /min 95 /min 170.18 cm 170.18 cm 170.18 cm 170.18 cm 170.18 cm 98 % 98 % 97 % 97 % 97 % 97 % 96 % 96 % 4 109 /min 96 /min 95 /min 104 /min 16 /min 17 /min 97.6 [degF] 98.7 [degF] 97.2 [degF] 46461.0 8 g 79448.0 8 g 12960.7 3 g 26946.2 2 g 83710.4 1 g 130 mm[Hg] 82 mm[Hg] 142 mm[Hg] 88 mm[Hg] 130 mm[Hg] 89 mm[Hg] 128 mm[Hg] 80 mm[Hg] Not Available [facility] 21:42:13 Social History Question Answer Notes LastModified by Organization Details LastModified Time Tobacco Smoking Status Current Some Day Smoker Not Available [facility] 06/01/2022 21:37:52 Do You Have An Advance Directive? No MIGRATION.010 [id number] Information not available 06/01/2022 What Is Your Level Of Alcohol Consumption? Occasional MIGRATION.0107 [id number] Information not available 06/01/2022 What Is Your Level Of Caffeine Consumption? Occasional MIGRATION.0107 [id number] Information not available 06/01/2022 How Much Tobacco Do You Chew? None MIGRATION.010 198587 Information not available 06/01/2022 In The 14 Days Before Symptom Onset, Have You Had Close Contact With A Laboratory-conf irmed COVID-19 While That Case Was Ill? No MIGRATION.010 [id number] Information not available 06/01/2022 In The 14 Days Before Symptom Onset, Have You Had Close Contact With A Person Who Is Under Investigation For COVID-19 While That Person Was Ill? No MIGRATION.0107 [id number] Information not available 06/01/2022 Are You Currently Employed? Yes MIGRATION.0107 [id number] Information not available 06/01/2022 What Type Of Diet Are You Following? REGULAR MIGRATION.010 [id number] Information not available 06/01/2022 Which Illicit Or Recreational Drugs Have You Used? Cocaine, Cannabis Not Using, Daily Smoker MIGRATION.106 090284 Information not available 06/01/2022 Do You Or Have You Ever Used E-cigarettes Or Vape? Never Used Electronic Cigarettes MIGRATION.106 243318 Information not available 06/01/2022 What Is The Highest Grade Or Level Of School You Have Completed Or The Highest Degree You Have Received? [id number] MIGRATION.106 609347 Information not available 06/01/2022 What Is Your Occupation? [employer]- [employer] MIGRATION.106 [id number] Information not available 06/01/2022 Have There Been Any Changes To Your Family Or Social Situation? No MIGRATION.010 022204 Information not available 06/01/2022 Are There Any Guns Present In Your Home? No MIGRATION.010 501941 Information not available 06/01/2022 Do You Use Insect Repellent Routinely? No MIGRATION.010 521404 Information not available 06/01/2022 Where Do You Live? [facility] MIGRATION.106 023902 Information not available 06/01/2022 Do You Have A Medical Power Of Commercial Collections Specialist? No MIGRATION.106 405040 Information not available 06/01/2022 What Was The Date Of Your Most Recent Tobacco Screening? 11/14/2021 MIGRATION.010 [id number] Information not available 06/01/2022 Do You Have Any Pets? Yes MIGRATION.106 542539 Information not available 06/01/2022 Do You Use Your Seat Belt Or Car Seat Routinely? Yes MIGRATION.106 796118 Information not available 06/01/2022 Do You Have Smoke And Carbon Monoxide Detectors In Your Home? Yes MIGRATION.106 060105 Information not available 06/01/2022 At What Age Did You Start Smoking Tobacco? 17 MIGRATION.106 430892 Information not available 06/01/2022 Are You Passively Exposed To Smoke? Yes MIGRATION.106 163220 Information not available 06/01/2022 Do You Or Have You Ever Used Smokeless Tobacco? Never Used Smokeless Tobacco MIGRATION.106 878088 Information not available 06/01/2022 Are There Any Smokers In Your House? No MIGRATION.010 814906 Information not available 06/01/2022 How Much Tobacco Do You Smoke? 1 PPW Smokes 1 Ciggerettes A Week MIGRATION.106 238206 Information not available 06/01/2022 Do You Feel Stressed (tense, Restless, Nervous, Or Anxious, Or Unable To Sleep At Night)? [id number] MIGRATION.7 027072 Information not available 06/01/2022 Do You Use Sunscreen Routinely? No MIGRATION.106 659545 Information not available 06/01/2022 How Many Years Have You Smoked Tobacco? 30 MIGRATION.0107 371867 Information not available 06/01/2022 Have You Recently Traveled Abroad? No MIGRATION.106 483153 Information not available 06/01/2022 Sex: Unknown Functional Status Question Answer Note LastModified by Organizat ion Details LastModified Time What is your exercise level? Moderate MIGRATION.[id number] 0 Information not available 06/01/2022 Mental Status None recorded. Family History Relationship Description Onset Age of this Age Resolved Age Notes LastModified by Organization Details LastModified Time Father Kidney disease MIGRATION.789 [id number] Not available 06/01/2022 21:39:29 Father Hypertensive disorder MIGRATION.729 [id number] Not available 06/01/2022 21:39:30 Father Malignant neoplasm of brain MIGRATION.888 [id number] Not available 06/01/2022 21:39:30 Mother Hypertensive disorder MIGRATION.149 [id number] Not available 06/01/2022 21:39:30 Mother Diabetes mellitus MIGRATION.085 [id number] Not available 06/01/2022 21:39:30 Sister Hypertensive disorder MIGRATION.310 [id number] Not available 06/01/2022 21:39:30 Sister Diabetes mellitus MIGRATION.698 [id number] Not available 06/01/2022 21:39:30 Brother Hypertensive disorder MIGRATION.429 [id number] Not available 06/01/2022 21:39:30 Brother Diabetes mellitus MIGRATION.108 [id number] Not available 06/01/2022 21:39:30 Medical History Condition [...] HAVE YOU BEEN HOSPITALIZED OR SEEN IN [facility] IN THE PAST YEAR ? Y [...] mcg/0.3 mL dose 12/25/2020 completed Not Available [facility] 3 21:54:46 COVID-19, mRNA, LNP-S, PF, 30 mcg/0.3 mL dose 12/04/2020 completed Not Available [facility] 3 21:54:46 Influenza, split virus, quadrivalent, PF 04/06/2021 completed Not Available [facility] 3 21:54:46 Influenza, split virus, quadrivalent, PF 05/06/2022 completed Not Available [facility] 3 21:54:46 Past Encounters Encounter ID Performer Location Encounter Start Date Encounter Closed Date Diagnosis/Indication Diagnosis SNOMED-CT Code Diagnosis ICD10 Code Diagnosis Note [id number] _CALEB_M IGRATION_ DEFAULT_1 _5 , 08/01/2020 00:00:00 08/01/2020 16:37:44 [id number] [facility] GASTROENT EROLOGY [address], [address] [place] [address] 09/20/2020 00:00:00 09/20/2020 15:25:02 [id number] _ATHENA_M IGRATION_ DEFAULT_1 _5 , 11/03/2020 00:00:00 11/03/2020 17:00:30 [id number] _ATHENA_M IGRATION_ DEFAULT_1 _5 , 11/09/2020 00:00:00 11/09/2020 09:53:13 [id number] _ATHENA_M IGRATION_ DEFAULT_1 _5 , 01/01/2021 00:00:00 01/01/2021 22:08:04 [id number] _ATHENA_M IGRATION_ DEFAULT_1 _5 , 02/05/2021 00:00:00 02/05/2021 20:36:33 [id number] _ATHENA_M IGRATION_ DEFAULT_1 _5 , 03/05/2021 00:00:00 03/05/2021 17:43:24 [id number] _ATHENA_M IGRATION_ DEFAULT_1 _5 , 03/05/2021 00:00:00 03/05/2021 15:11:04 [id number] _ATHENA_M IGRATION_ DEFAULT_1 _5 , 03/16/2021 00:00:00 03/16/2021 15:46:45 [id number] _ATHENA_M IGRATION_ DEFAULT_1 _5 , 04/06/2021 00:00:00 04/06/2021 11:56:13 [id number] _ATHENA_M IGRATION_ DEFAULT_1 _5 , 05/04/2021 00:00:00 05/04/2021 14:43:21 [id number] _ATHENA_M IGRATION_ DEFAULT_1 _5 , 06/15/2021 00:00:00 06/15/2021 17:13:13 [id number] _ATHENA_M IGRATION_ DEFAULT_1 _5 , 06/18/2021 00:00:00 10/12/2021 15:07:07 [id number] _ATHENA_M IGRATION_ DEFAULT_1 _5 , 07/11/2021 00:00:00 07/11/2021 15:09:46 [id number] _CALEB_M IGRATION_ DEFAULT_1 _5 , 11/14/2021 00:00:00 11/14/2021 10:20:15 [id number] _CALEB_Ashutosh IGRATION_ DEFAULT_1 _5 , 05/06/2022 00:00:00 05/06/2022 16:43:34 Health Concerns Section Related Observation LastModified by Organization Detai ls LastModified Time None Recorded Concern Status LastModified by Organization Details LastModified Time None Recorded Advance Directives Directive N: Payers None recorded.
--- OUTSIDE RECORDS SUMMARY | 2024-07-06 08:45 | XMS_ITS | Data Portability ---
Author Organization [facility] Address [address] [place] [address] Care Team Providers Care Weight And Balance Control Agent Name Role Phone ASHLEY BROCK Primary Care Provider Assessment No assessment recorded. Plan of Treatment Reminders Order Date Submit Date Provider Last Modified By Organization Details Last Modified Time Details Appointments None recorded. Lab PSA, serum or plasma 2015 016 CALEB CEDENO, Penny venkatesh Luis, [facility] [address], [place], [address], 6 06:14:52 TSH, serum or plasma 2015 016 CALEB CED[facility], [facility], [facility] [address], [place], [address], 06:14:56 CBC w/ auto diff 2015 016 CALEB CEDENO, [facility], [address] [address], [place], [address], 05:16:40 CMP, serum or plasma 2015 016 CALEB CEDENO, [facility], [facility] [address], [place], [address], 6 06:14:54 lipids, total, serum 2015 016 CALEB CEDENO [facility], [facility] [address], [place], [address], 7 21:08:30 amylase + lipase, serum 2017 018 marc CEDENO, [address] [facility], [address], [place], [address], 8 15:33:25 CBC w/ auto diff 2017 018 CALEB PETER, [address] [place] [address], [address], [place], [address], 8 20:09:42 CMP, serum or plasma 2017 018 CALEB CEDENO, [address] [place] [address], [address], [place], [address], 8 20:48:13 Referral dentist referral 2016 017 [email or web address] [facility], [address] [place], [address], 7 13:03:20 Procedures None recorded. Surgeries None recorded. Imaging None recorded. Medication Orders Wellbutri n SR 150 mg tablet, 12 hr sustained -release 2015 016 [facility], [facility] [place], [place], [id number], 6 10:55:20 amlodipin e 10 mg tablet 2015 016 [facility] #32491, [address] [place], [place], [id number], 6 10:55:11 [place] 7.5 mg-325 mg tablet 2016 017 [facility] #26425, [address] [place], [place], [id number], 7 17:26:10 clonidine HCl 0.1 mg tablet 2016 017 [facility], [address] [place] [address], [id number], 7 15:47:30 Norvasc 10 mg tablet 2016 017 [facility], [address] [place] [address], [id number], 7 15:47:16 clonidine HCl 0.1 mg tablet 2016 017 [facility], [address] [place] [address], [id number], 7 15:52:45 [place] 7.5 mg-325 mg tablet 2016 017 [facility] #66386, [address] [place] [address], [id number], 7 09:46:54 prednison e 20 mg tablet 2016 017 [facility], [address] [place] [address], [id number], 7 17:10:57 [place] 7.5 mg-325 mg tablet 2017 018 [facility], [address] [place] [address], [id number], 8 15:32:15 Norvasc 10 mg tablet 2017 018 [facility]97848, [address] [place] [address], [id number], 8 17:13:25 losartan 50 mg tablet 2017 018 INTERFACE [facility] #84774, [address] [place], [place], [id number], 8 17:13:25 clonidine HCl 0.1 mg tablet 2017 018 INTERFACE [facility] #25852, [address] [place], [place], [id number], 8 17:13:20 Patient TargetsNo targets recorded. Patient Instructions Encounter Date Encounter Id Patient Instructions Last Modified By Organization Details Last Modified Time 03/01/2016 [id number] crohn's disease: care instructions mmanderson Not available 03/01/2016 10:55:11 04/07/2017 [id number] tooth and gum pain: care instructions clowry Not available 04/07/2017 16:30:54 learning about high blood pressure clowry Not available 04/07/2017 16:30:54 high blood pressure: care instructions clowry Not available 04/07/2017 16:30:54 crohn's disease: care instructions clowry Not available 04/07/2017 16:30:54 05/14/2017 [id number] learning about high blood pressure clowry Not available 05/14/2017 17:32:29 crohn's disease: care instructions clowry Not available 05/14/2017 17:32:29 07/09/2017 [id number] learning about high blood pressure campadu Not available 07/09/2017 15:31:56 crohn's disease: care instructions campadu Not available 07/09/2017 15:31:57 12/31/2017 [id number] deciding about using medicines to quit smoking [...] Available [facility] (Lab) [address] [place], [address], 03/02/2016 05:16:40 03/01/20 16 03/02/2016 CBC w/ auto diff RBC 3.69 x10e6 /uL 4.14-5 .80 low Not Available [facility] (Lab) [address] [place], [address], 03/02/2016 05:16:40 03/01/20 16 03/02/2016 CBC w/ auto diff hemoglobin 11.6 g/dL 12.6-1 7.7 low Not Available [facility] (Lab) [address], [place], [address], 03/02/2016 05:16:40 03/01/20 16 03/02/2016 CBC w/ auto diff hematocrit 36.3 % 37.5-5 1.0 low Not Available [facility] (Lab) [address], [place], [address], 03/02/2016 05:16:40 03/01/20 16 03/02/2016 CBC w/ auto diff MCV 98 fL 79-97 high Not Available [facility] (Lab) [address], [place], [address], 03/02/2016 05:16:40 03/01/20 16 03/02/2016 CBC w/ auto diff MCH 31.4 pg 26.6-3 3.0 Not Available [facility] (Lab) [address] [place], [address], 03/02/2016 05:16:40 03/01/20 16 03/02/2016 CBC w/ auto diff MCHC 32.0 g/dL 31.5-3 5.7 Not Available [facility] (Lab) [address] [place], [address], 03/02/2016 05:16:40 03/01/20 16 03/02/2016 CBC w/ auto diff RDW 15.4 % 12.3-1 5.4 Not Available [facility] (Lab) [address] [place], [address], 03/02/2016 05:16:40 03/01/20 16 03/02/2016 CBC w/ auto diff platelets 384 x10e3 /uL 150-37 9 high Not Available [facility] (Lab) [address] [place], [address], 03/02/2016 05:16:40 03/01/20 16 03/02/2016 CBC w/ auto diff neutrophils 64 % Not Available [facility] ([facility]) [address] [place], [address], 03/02/2016 05:16:40 03/01/20 16 03/02/2016 CBC w/ auto diff lymphs 29 % Not Available [facility] (Lab) [address] [facility], [place], [address], 03/02/2016 05:16:40 03/01/20 16 03/02/2016 CBC w/ auto diff monocytes 7 % Not Available [facility] ([facility]) [address] [place], [address], 03/02/2016 05:16:40 03/01/20 16 03/02/2016 CBC w/ auto diff eos 0 % Not Available [facility] (Lab) [address] [place], [address], 03/02/2016 05:16:40 03/01/20 16 03/02/2016 CBC w/ auto diff basos 0 % Not Available [facility] (Lab) [address] [place], [address], 03/02/2016 05:16:40 03/01/20 16 03/02/2016 CBC w/ auto diff immature cells Not Available [facility] (Lab) [address] [place], [address], 03/02/2016 05:16:40 03/01/20 16 03/02/2016 CBC w/ auto diff neutrophils (absolute) 3.3 x10e3 /uL 1.4-7. 0 Not Available [facility]) [address], [place], [address], 03/02/2016 05:16:40 03/01/20 16 03/02/2016 CBC w/ auto diff lymphs (absolute) 1.5 x10e3 /uL 0.7-3. 1 Not Available [facility] (Lab) [address] [place], [address], 03/02/2016 05:16:40 03/01/20 16 03/02/2016 CBC w/ auto diff monocytes(ab solute) 0.4 x10e3 /uL 0.1-0. 9 Not Available [facility] (Lab) [address] [place], [address], 03/02/2016 05:16:40 03/01/20 16 03/02/2016 CBC w/ auto diff eos (absolute) 0.0 x10e3 /uL 0.0-0. 4 Not Available [facility] (Lab) [address] [place], [address], 03/02/2016 05:16:40 03/01/20 16 03/02/2016 CBC w/ auto diff baso (absolute) 0.0 x10e3 /uL 0.0-0. 2 Not Available [facility] (Lab) [address] [place], [address], 03/02/2016 05:16:40 03/01/20 16 03/02/2016 CBC w/ auto diff immature granulocytes 0 % Not Available [facility] (Lab) [address] [place], [address], 03/02/2016 05:16:40 03/01/20 16 03/02/2016 CBC w/ auto diff immature grans (abs) 0.0 x10e3 /uL 0.0-0. 1 Not Available [facility] (Lab) [address] [place], [address], 03/02/2016 05:16:40 03/01/20 16 03/02/2016 CBC w/ auto diff NRBC Not Available [facility] (Lab) [address] [facility], [place], [address], 03/02/2016 05:16:40 03/01/20 16 03/02/2016 CBC w/ auto diff hematology comments: Not Available [facility] (Lab) [address] [place], [address], 03/02/2016 05:16:40 03/01/20 16 03/02/2016 PSA, serum [...] t be inter prete d as absol [place] evide nce of the prese nce or absen ce of odell rosa se. Not Available [facility] (Lab) [address] [place], [address], 03/02/2016 06:14:52 03/01/20 16 03/02/2016 CMP, serum or plasm a glucose, serum 98 mg/dL 65-99 Not Available [facility] ([facility]) [address] [place], [address], 03/02/2016 06:14:54 03/01/20 16 03/02/2016 CMP, serum or plasm a BUN 15 mg/dL 6-24 Not Available [facility] (Lab) [address] [place], [address], 03/02/2016 06:14:54 03/01/20 16 03/02/2016 CMP, serum or plasm a creatinine, serum 1.19 mg/dL 0.76-1 .27 Not Available [facility] (Lab) [address] [place], [address], 03/02/2016 06:14:54 03/01/20 16 03/02/2016 CMP, serum or plasm a eGFR if nonafricn AM 71 mL/mi n/1.7 3 >59 Not Available [facility] (Lab) [address] [facility], [place], [address], 03/02/2016 06:14:54 03/01/20 16 03/02/2016 CMP, serum or plasm a eGFR if 82 mL/mi n/1.7 3 >59 Not Available [facility] (Lab) [address] [facility], [place], [address], 03/02/2016 06:14:54 03/01/20 16 03/02/2016 CMP, serum or plasm a BUN/creatini ne ratio 13 9-20 Not Available [facility] (Lab) [address] [facility], [place], [address], 03/02/2016 06:14:54 03/01/20 16 03/02/2016 CMP, serum or plasm a sodium, serum 144 mmol/ L 134-14 4 Eff ectiv e Octob er 2015 the refer ence inter maria eugenia for Sodiu m, Serum will be hutson ing to: 136 - 144 Not Available [facility] (Lab) [address] [place], [address], 03/02/2016 06:14:54 03/01/20 16 03/02/2016 CMP, serum [...] >1 year 3.5 - 5.2 Not Available [facility] (Lab) [address] [place], [address], 03/02/2016 06:14:54 03/01/20 16 03/02/2016 CMP, serum or plasm a chloride, serum 109 mmol/ L 97-108 high Eff ectiv e Octob er 2015 the refer ence inter maria eugenia for Chlor spike, Serum will be hutson ing to: 97 - 106 Not Available [facility] (Lab) [address] [facility], [place], [address], 03/02/2016 06:14:54 03/01/20 16 03/02/2016 CMP, serum or plasm a carbon dioxide, total 19 mmol/ L 18-29 Not Available [facility] (Lab) [address] [place], [address], 03/02/2016 06:14:54 03/01/20 16 03/02/2016 CMP, serum or plasm a calcium, serum 8.5 mg/dL 8.7-10 .2 low Not Available [facility] (Lab) [address] [place], [address], 03/02/2016 06:14:54 03/01/20 16 03/02/2016 CMP, serum or plasm a protein total serum 6.3 g/dL 6.0-8. 5 Not Available [facility] (Lab) [address] [place], [address], 03/02/2016 06:14:54 03/01/20 16 03/02/2016 CMP, serum or plasm a albumin, serum 3.8 g/dL 3.5-5. 5 Not Available [facility] (Lab) [address] [place], [address], 03/02/2016 06:14:54 03/01/20 16 03/02/2016 CMP, serum or plasm a globulin total 2.5 g/dL 1.5-4. 5 Not Available [facility] (Lab) [address] [place], [address], 03/02/2016 06:14:54 03/01/20 16 03/02/2016 CMP, serum or plasm a A/G ratio 1.5 1.1-2. 5 Not Available [facility] (Lab) [address], [place], [address], 03/02/2016 06:14:54 03/01/20 16 03/02/2016 CMP, serum or plasm a bilirubin total <0.2 mg/dL 0.0-1. 2 Not Available [facility] (Lab) [address] [facility], [place], [address], 03/02/2016 06:14:54 03/01/20 16 03/02/2016 CMP, serum or plasm a alkaline phosphatase ser 83 IU/L 39-117 Not Available [facility] ([facility]) [address], [place], [address], 03/02/2016 06:14:54 03/01/20 16 03/02/2016 CMP, serum or plasm a AST (SGOT) 22 IU/L 0-40 Not Available [facility] ([facility]) [address] [place], [address], 03/02/2016 06:14:54 03/01/20 16 03/02/2016 CMP, serum or plasm a ALT (SGPT) 15 IU/L 0-44 Not Available [facility] ([facility]) [address] [place], [address], 03/02/2016 06:14:54 03/01/20 16 03/02/2016 lipid panel w/ direc t LDL, serum cholesterol, total 114 mg/dL 100-19 9 Not Available [facility] (Lab) [address] [place], [address], 03/02/2016 06:14:55 03/01/20 16 03/02/2016 lipid panel w/ direc t LDL, serum triglyceride s 86 mg/dL 0-149 Not Available [facility] [address] [place], [address], 03/02/2016 06:14:55 03/01/20 16 03/02/2016 lipid panel w/ direc t LDL, serum HDL cholesterol 46 mg/dL >39 Accor ding to ATP-I II Guide lines , HDL-C >59 mg/dL is consi dered a negat luciano risk facto r for CHD. Not Available [facility] (Lab) [address] [place], [address], 03/02/2016 06:14:55 03/01/20 16 03/02/2016 lipid panel w/ direc t LDL, serum VLDL cholesterol ed 17 mg/dL 5-40 Not Available [facility] ([facility]) [address] [place], [address], 03/02/2016 06:14:55 03/01/20 16 03/02/2016 lipid panel w/ direc t LDL, serum LDL cholesterol calc 51 mg/dL 0-99 Not Available [facility] (Lab) [address] [facility], [place], [address], 03/02/2016 06:14:55 03/01/20 16 03/02/2016 lipid panel w/ direc t LDL, serum lipid calculation Not Available [facility] [address] [facility], [place], [address], 03/02/2016 06:14:55 03/01/20 16 03/02/2016 TSH, serum or plasm a TSH 1.490 uIU/m L 0.450- 4.500 Not Available [facility] (Lab) [address] [place], [address], 03/02/2016 06:14:56 07/09/19 18 07/09/2017 CBC w/ auto diff WBC 7.4 K/uL 3.4-10 .8 Not Available [facility] (Lab) [address] [place], [address], 07/09/2017 20:09:42 07/09/19 18 07/09/2017 CBC w/ auto diff red blood count 4.0 M/uL 4.5-6. 3 low Not Available [facility] (Lab) [address] [place], [address], 07/09/2017 20:09:42 07/09/19 18 07/09/2017 CBC w/ auto diff hemoglobin 12.2 g/dL 13.5-1 7.5 low Not Available [facility] (Lab) [address] [place], [address], 07/09/2017 20:09:42 07/09/19 18 07/09/2017 CBC w/ auto diff hematocrit 37.7 % 40.0-5 2.0 low Not Available [facility] (Lab) [address] [place], [address], 07/09/2017 20:09:42 07/09/19 18 07/09/2017 CBC w/ auto diff MCV 95 fL 80-95 Not Available [facility] (Lab) [address] [place], [address], 07/09/2017 20:09:42 07/09/19 18 07/09/2017 CBC w/ auto diff MCH 31 pg 27-32 Not Available [facility] (Lab) [address] [place], [address], 07/09/2017 20:09:42 07/09/19 18 07/09/2017 CBC w/ auto diff MCHC 32 g/dL 32-36 Not Available [facility] (Lab) [address] [place], [address], 07/09/2017 20:09:42 07/09/19 18 07/09/2017 CBC w/ auto diff platelets 382 K/uL 155-37 9 high Not Available [facility] (Lab) [address] [place], [address], 07/09/2017 20:09:42 07/09/19 18 07/09/2017 CBC w/ auto diff RDW 14.5 % 11.5-1 4.5 Not Available [facility] (Lab) [address], [place], [address], 07/09/2017 20:09:42 07/09/19 18 07/09/2017 CBC w/ auto diff MPV 8.7 fL 8.9-12 .7 low Not Available [facility] (Lab) [address] [place], [address], 07/09/2017 20:09:42 07/09/19 18 07/09/2017 CBC w/ auto diff neutrophils absolute 5.1 K/uL 1.4-7. 0 Not Available [facility] (Lab) [address] [place], [address], 07/09/2017 20:09:42 07/09/19 18 07/09/2017 CBC w/ auto diff lymphs (absolute) 1.7 K/uL 0.7-3. 1 Not Available [facility] (Lab) [address] [place], [address], 07/09/2017 20:09:42 07/09/19 18 07/09/2017 CBC w/ auto diff monocytes (absolute) 0.6 K/uL 0.1-0. 9 Not Available [facility] (Lab) [address] [place], [address], 07/09/2017 20:09:42 07/09/19 18 07/09/2017 CBC w/ auto diff eos (absolute) 0.0 K/uL 0.0-0. 4 Not Available [facility] (Lab) [address] [place], [address], 07/09/2017 20:09:42 07/09/19 18 07/09/2017 CBC w/ auto diff baso (absolute) 0.0 K/uL 0.1-0. 3 low Not Available [facility] (Lab) [address] [place], [address], 07/09/2017 20:09:42 07/09/19 18 07/09/2017 CBC w/ auto diff neut % 68.5 % 40.0-7 4.0 Not Available [facility] (Lab) [address], [place], [address], 07/09/2017 20:09:42 07/09/19 18 07/09/2017 CBC w/ auto diff lymphs % 22.3 % 14.0-4 6.0 Not Available [facility] (Lab) [address] [place], [address], 07/09/2017 20:09:42 07/09/19 18 07/09/2017 CBC w/ auto diff mono % 8.4 % 4.0-12 .0 Not Available [facility] (Lab) [address] [place], [address], 07/09/2017 20:09:42 07/09/19 18 07/09/2017 CBC w/ auto diff eos % 1 % <=5 Not Available [facility] (Lab) [address] [place], [address], 07/09/2017 20:09:42 07/09/19 18 07/09/2017 CBC w/ auto diff baso % 0.3 % 0.1-1. 1 Not Available [facility] (Lab) [address] [place], [address], 07/09/2017 20:09:42 07/09/19 18 07/09/2017 lipas e, serum or plasm a lip 43 U/L 7-60 Not Available [facility] (Lab) [address] [place], [address], 07/09/2017 20:47:43 07/09/19 18 07/09/2017 CMP, serum or plasm a glucose, serum 122 mg/dL 65-99 high Not Available [facility] ([facility]) [address] [place], [address], 07/09/2017 20:48:13 07/09/19 18 07/09/2017 CMP, serum or plasm a BUN 12 mg/dL 8-26 Not Available [facility] (Lab) [address], [place], [address], 07/09/2017 20:48:13 07/09/19 18 07/09/2017 CMP, serum or plasm a creatinine, serum 1.10 mg/dL 0.50-1 .40 Not Available [facility] (Lab) [address] [place], [address], 07/09/2017 20:48:13 07/09/19 18 07/09/2017 CMP, serum or plasm a BUN/creatnin e ratio 10.9 Not Available [facility] (Lab) [address], [place], [address], 07/09/2017 20:48:13 07/09/19 18 07/09/2017 CMP, serum or plasm a sodium, serum 143.0 mEq/L 136.0- 144.0 Not Available [facility] (Lab) [address] [place], [address], 07/09/2017 20:48:13 07/09/19 18 07/09/2017 CMP, serum or plasm a potassium, serum 4.3 mmol/ L 3.5-5. 3 Not Available [facility] (Lab) [address] [place], [address], 07/09/2017 20:48:13 07/09/19 18 07/09/2017 CMP, serum or plasm a chloride, serum 99 mmol/ l 101-11 1 low Not Available [facility] (Lab) [address] [place], [address], 07/09/2017 20:48:13 07/09/19 18 07/09/2017 CMP, serum or plasm a carbon dioxide total 32.1 mmol/ L 21.0-3 2.0 high Not Available [facility] (Lab) [address] [place], [address], 07/09/2017 20:48:13 07/09/19 18 07/09/2017 CMP, serum or plasm a aniongp 16.0 mmol/ L Not Available [facility] (Lab) [address], [place], [address], 07/09/2017 20:48:13 07/09/19 18 07/09/2017 CMP, serum or plasm a calcium, serum 10.0 mg/dL 8.2-10 .0 Not Available [facility] (Lab) [address] [place], [address], 07/09/2017 20:48:13 07/09/19 18 07/09/2017 CMP, serum or plasm a total protein 7.6 g/dL 6.7-8. 2 Not Available [facility] (Lab) [address] [place], [address], 07/09/2017 20:48:13 07/09/19 18 07/09/2017 CMP, serum or plasm a albumin, serum 4.2 g/dL 3.5-5. 5 Not Available [facility] (Lab) [address] [place], [address], 07/09/2017 20:48:13 07/09/19 18 07/09/2017 CMP, serum or plasm a agratio 1.2 Not Available [facility] (Lab) [address] [place], [address], 07/09/2017 20:48:13 07/09/19 18 07/09/2017 CMP, serum or plasm a bilt 0.2 mg/dL 0.2-1. 0 Not Available [facility] (Lab) [address] [place], [address], 07/09/2017 20:48:13 07/09/19 18 07/09/2017 CMP, serum or plasm a AST 14.0 U/L 10.0-4 2.0 Not Available [facility] (Lab) [address] [place], [address], 07/09/2017 20:48:13 07/09/19 18 07/09/2017 CMP, serum or plasm a ALT 23.0 U/L 10.0-6 0.0 Not Available [facility] (Lab) [address] [place], [address], 07/09/2017 20:48:13 07/09/19 18 07/09/2017 CMP, serum or plasm a alk phos 113.0 IU/L 42.0-1 21.0 Not Available [facility] (Lab) [address] [place], [address], 07/09/2017 20:48:13 07/09/19 18 07/09/2017 CMP, serum or plasm a osmol 286.0 mOsm/ L 275.0- 301.0 Not Available [facility] (Lab) [address] [place], [address], 07/09/2017 20:48:13 07/09/19 18 07/09/2017 CMP, serum or plasm a eGFR, AM 91 m/lmi n/1.7 3_m >=60 Not Available [facility] (Lab) [address] [place], [address], 07/09/2017 20:48:13 07/09/19 18 07/09/2017 CMP, serum or plasm a eGFR, non- AM 75 mL/mi n/1.7 3/m >=60 Not Available [facility] (Lab) [address] [facility], [place], [address], 07/09/2017 20:48:13 07/09/19 18 07/09/2017 amyla se, serum or plasm a gianni 156.0 U/L 36.0-1 28.0 high Not Available [facility] (Lab) [address] [place], [address], 07/09/2017 20:48:15 05/27/19 19 05/27/2018 CT, head + brain , w/o contr ast No observ ation record ed. [address] [place], [address], 06/01/2018 18:44:25 05/27/19 19 05/27/2018 XR, chest No observ ation record ed. [address] [place], [address], 06/03/2018 18:57:01 07/07/19 19 07/07/2018 CT, abdom en + pelvi s, w/ contr ast No observ ation record ed. [email or web address] [id number] Not Available 2018 11:26:57 Result Notes None recorded. Problems Name Problem SNOMED Code Status Onset Date Resolution Date Notes Provider Name and Address Organization Details Recorded Time Crohn's disease 40441087 Active KAVITHA Ortiz Attn: Accountin g,[address] [facility], [place], [address], [facility] 6 10:55:10 Essential hypertension 97682065 Active KAVITHA Ortiz Attn: Accountin g,[address] [facility], [place], [address], [facility] 6 10:55:10 Tobacco dependence syndrome 73148424 Active KAVITHA Ortiz Attn: Accountin g,[address] [facility], [place], [address], [facility] - [facility] 6 10:55:10 Problem Notes None recorded. Procedures Surgical History None recorded. Imaging Results Imaging Date Name Status LastModified by [facility] Details LastModified Time 05/27/2018 CT, head + brain, w/o contrast completed [address] [place], [address], 06/01/2018 18:44:25 05/27/2018 XR, chest completed [address] [place], [address], 06/03/2018 18:57:01 07/07/2018 CT, abdomen + pelvis, w/ contrast completed [email or web address] Information not available 08/07/2018 11:26:57 Procedure Notes None recorded. Medical Equipment None Reported. Allergies Allergen ID Allergen Name Allergen Category Reaction Reaction Severity Criticality Documentation Date Start Date Code Code System Note Provider Name and Address Organization Details Recorded Time 83340 Detrol medicatio n rash Not available Not available 03/01/2016 64237 1 RxNorm Not Available Not Available Not Available 16580 Dilaudid medicatio n rash moderate Not available 03/01/20162006 94194 3 RxNorm Not Available Not Available Not Available Medications Name Sig Start Date Stop Date [...] Updated DateTime 7 167.64 cm 25.2 kg/m2 08504.4 1 g 20 /min 88 /min 98.4 [degF] 158 mm[Hg] 80 mm[Hg] Mary Anne Tuttle MA [facility] 7 15:58:58 Date Recorded Body height Body mass index (BMI) Body weight Heart rate Respiratory rate Body temperature Systolic blood pressure Diastolic blood pressure Provider Name and Address Organization Details Last Updated DateTime 8 167.64 cm 23.7 kg/m2 37625.0 8 g 76 /min 19 /min 98.4 [degF] 144 mm[Hg] 80 mm[Hg] Mary Anne Tuttle MA [facility] 8 15:05:55 Date Recorded Body height Body mass index (BMI) Body weight Respiratory rate Heart rate Body temperature Systolic blood pressure Diastolic blood pressure Provider Name and Address Organization Details Last Updated DateTime 8 167.64 cm 24.9 kg/m2 86549.2 2 g 20 /min 76 /min 98.4 [degF] 144 mm[Hg] 90 mm[Hg] Mary Anne Tuttle MA [facility] 8 16:33:10 Date Recorded Body mass index (BMI) Heart rate Oxygen saturation Oxygen saturation in Arterial blood by Pulse oximetry Body temperature Respiratory rate Body weight Body height Systolic blood pressure Diastolic blood pressure Provider Name and Address Organization Details Last Updated DateTime 6 23 kg/m2 80 /min 98 % 98 % 98 [degF] 16 /min 22833.8 04553 g 167.64 cm 130 mm[Hg] 80 mm[Hg] Alek Logan MA [facility] 6 10:12:55 Date Recorded Body weight Body mass index (BMI) Body height Heart rate Respiratory rate Body temperature Systolic blood pressure Diastolic blood pressure Provider Name and Address Organization Details Last Updated DateTime 7 49020.7 8 g 25.8 kg/m2 167.64 cm 88 /min 18 /min 97.8 [degF] 210 mm[Hg] 120 mm[Hg] Mary Anne Tuttle MA [facility] 7 15:15:32 Social History Question Answer Notes LastModified by Organizat ion Details LastModified Time Tobacco Smoking Status Current Every Day Smoker Alek Logan MA null, [place] - [facility] 03/01/2016 10:16:27 What Is Your Level Of Alcohol Consumption? Moderate 1-2 Beer N[place] Information not available 03/01/2016 Which Illicit Or Recreational Drugs Have You Used? Denies Hx. Cocaine Use...last Used 2 Months Information not available 03/01/2016 How Much Tobacco Do You Smoke? 0.5 PPD [email or web address] Information not available 03/01/2016 Sex: Unknown Functional [...] Response Coronary Artery Disease N Other N High Blood Pressure Y Atrial Fibrillation N Kidney or Bladder Problems N Thyroid Problems N GI Problems N Depression N COPD N Blood Clots N Skin Problems N Anemia N Heart Attack ([place]) N Anxiety Disorder N Diabetes N Muscle, Joint, or Bone Problems N Seizures/Epilepsy N Acid Reflux (GERD) N Cancer N Stroke N Asthma N Allergies N High Cholesterol N Hepatitis N Liver Disease N Headaches N Heart Failure N Osteoporosis N Past Encounters Encounter ID Performer Location Encounter Start Date Encounter Closed Date Diagnosis/Indication Diagnosis SNOMED-CT Code Diagnosis ICD10 Code Diagnosis Note [id number] KAVITHA Ortiz [address] [address] 03/01/2016 09:40:50 03/01/2016 13:42:57 Crohn's disease 83499726 K50.90 Last hospitaliz ation October,. Stable under the care of Dr. 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 Adult heal th examination 884252554 Z00.00 [id number] Hemant Lopez MD [facility] (Adult/Fa m Med) [address] [place] [address] 04/07/2017 14:12:33 04/23/2017 10:40:28 Crohn's disease 71297956 K50.90 Essential hypertension 30581227 I10 Toothache 43485490 K08.8 9 Diabetes mellitus 875734 09 E11.9 Acute urin ryan tract infection 324603216 N39.0 Benign ess ential hypertension 0093787 I10 [id number] Hemant Lopez MD [facility] (Adult/Fa m Med) [address] [place], [place] [address] 05/14/2017 15:24:39 05/14/2017 17:55:54 Essential hypertension 37288795 I10 Crohn's disease 30758804 K50.90 Crohn's di sease of colon 56201951 K50.10 Toothache 93226125 K08.8 9 [id number] Hemant Lopez MD [facility] (Adult/Fa m Med) [address] [place] [address] 07/09/2017 13:54:40 07/14/2017 11:18:42 Essential hypertension 28247266 I10 Crohn's disease 64036580 K50.90 Small prabha l obstruction 693007846 K56.609 Toothache 10787731 K08.8 9 [id number] Hemant Lopez MD [facility] (Adult/Fa m Med) [address] [place] [address] 12/31/2017 16:04:35 01/14/2018 11:35:41 Crohn's disease 28443131 K50.90 Essential hypertension 05909452 I10 Tobacco de pendence syndrome 95233935 F17.200 Benign ess ential hypertension 5749472 I10 Health Concerns Section Related Observation LastModified by Organization Detai ls LastModified Time None Recorded Concern Status LastModified by Organization Details LastModified Time None Recorded Advance Directives Directive None Recorded Payers Encounter Date Sequence Insurance Name Policy Number Policy Bridges Covered Member ID Bridges Member ID Guarantor Name 03/01/2016 1 [employer] (MEDICAID HMO) [id number] Cirilo Cali [id number] Cirilo Cali 04/07/2017 1 [facility] PRIOR TO 11/23/2020 (MEDICAID REPLACEMENT - HMO) Cirilo Cali [id number] Cirilo Cali 05/14/2017 1 [facility] PRIOR TO 11/23/2020 (MEDICAID REPLACEMENT - HMO) Cirilo Cali [id number] Cirilo Cali 07/09/2017 1 [facility] PRIOR TO 11/23/2020 (MEDICAID REPLACEMENT - HMO) Cirilo Cali [id number] Cirilo Cali 12/31/2017 1 *SELF PAY* [facility] Cal[facility] Notes Date Note Type Note Provider Name and Address Organization Details Recorded Time 03/01/2016 text/html Here to [facility]. CHARLES OrtizC Attn: Accounting,[address] [place], [address], [facility] 03/01/2016 13:42:18 04/07/2017 text/html for follow up care recently discharged from hospital for crohns disease Has toothache and wants pain meds Hemant Lopez MD Attn: [address] [place], [address], [facility] 04/07/2017 15:52:37 05/14/2017 text/html for follow up care for crohns disease and has pain Hemant Lopez MD Attn: [address] [place], [address], [facility] 05/14/2017 17:10:57 07/09/2017 text/html for follow up care for recently for surgery for small bowel obstruction. Complaints of pain in the abdomen from surgery Hemant Lopze MD Attn: Accounting,[address] [place], [address], [facility] 07/09/2017 15:35:03 12/31/2017 text/html for follow up care for crohns disease and states wants a letter to go back to work Hemant Lopez MD Attn: Accounting,[address] , [place], [address], [place] - [facility] 12/31/2017 17:13:18
--- OUTSIDE RECORDS SUMMARY | 2024-07-06 08:45 | XMS_ITS | Data Portability ---
Author Organization [place] [employer], Main Office Address [address] [place] [address] Care Team Providers Care Marketing Support Manager Name Role Phone RORY LOONEY Primary Care Provider [phone] RORY LOONEY Referring Provider [phone] POOJA BERGERON Orthopedic Surgeon [phone] LATASHA ELLIOTT Optic Fibre Drawer [employer] Employee Benefits Manager Assessment Encounter Date Assessment Date Assessment LastModified [...] 1.29 L (48%), (+) BD response The [employer] recommends annual screening for lung cancer with low-dose computed tomography (LDCT) for people aged 50 to 80 years old who smoke or formerly smoked and have a 20-year or greater pack-year history. Screening is no longer discontinued even when a person has not smoked for 15 years. Nicotine cessation counseling provided. Munday for quitting include getting ready, getting support [...] in Quit For Life program Registering at www.quitline.Nukotoys Making a call to 4-366-BJXM-NOW ( ). A strong, clear, personalized message [...] failure or relapse. Patient can enroll in [facility]'s smoking cessation class through Lucy Hendrix RN [...] Modified Time Details Appointments None recorded. Lab glycohemog lobin, total, blood [address] (Lab), [address] [place], [address], 4 08:28:53 microalbum in, urine [address] (Lab), [address] [place], [address], 4 08:28:53 lipid panel, serum [address] (Lab), [address] [place], [address], 4 08:28:53 CBC w/ auto diff [address] (Lab), [address] [place], [address], 4 08:28:53 TSH, serum or plasma [address] (Lab), [address] [place], [address], 4 08:28:53 CMP, serum or plasma [address] (Lab), [address] [place], [address], 4 08:28:54 PSA, total, serum or plasma [address] (Lab), [address] [place], [address], 4 08:28:54 vitamin D, 25-hydroxy , total, serum [address] (Lab), [address] [place], [address], 4 08:28:54 vitamin B12 + folate, serum or blood [address] (Lab), [address] [place], [address], 4 08:28:54 glycohemog lobin, total, blood 2023 024 [facility] (Lab), [address] [place], [address], 4 11:41:11 microalbum in, urine 2023 024 [facility] (Lab), [address] [place], [address], 4 11:45:49 lipid panel, serum 2023 024 [facility] (Lab), [address] [place], [address], 4 11:01:07 CBC w/ auto diff 2023 024 [facility] (Lab), [address] [place], [address], 4 10:36:53 TSH, serum or plasma 2023 024 [facility] (Lab), [address] [place], [address], 4 11:43:57 CMP, serum or plasma 2023 024 [facility] (Lab), [address] [place], [address], 4 11:01:12 PSA, total, serum or plasma 2023 024 [facility] (Lab), [address] [place], [address], 4 11:44:02 vitamin D, 25-hydroxy , total, serum [address] (Lab), [address] [place], [address], 5 10:05:57 vitamin B12 + folate, serum or blood [address] (Lab), [address] [place], [address], 5 12:18:53 vitamin D, 25-hydroxy , total, serum [address] (Lab), [address] [place], [address], 4 17:07:35 glycohemog lobin, total, blood [address] (Lab), [address] [place], [address], 4 17:07:33 microalbum in, urine [address] (Lab), [address] [place], [address], 4 17:07:33 lipid panel, serum 2023 024 [facility] (Lab), [address] [place], [address], 4 17:07:34 CBC w/ auto diff [address] (Lab), [address] [place], [address], 4 17:07:34 TSH, serum or plasma [address] (Lab), [address] [place], [address], 4 17:07:34 CMP, serum or plasma [address] (Lab), [address] [place], [address], 4 17:07:35 Referral pulmonolog ist referral 2023 024 [email or web address] Piter Stokes MD, [address] [place], [address], 4 08:43:54 orthopedic surgeon referral 2023 024 [email or web address] Myron Lopez MD, [address] [facility], [place], [address], 4 09:16:23 gastroente rologist referral 2023 024 [email or web address] Rambo Escobedo MD, [address] [place], [address], 4 08:43:[address] referral 2023 024 [place], [address] [address], [facility] [address], [place], [address], 4 08:43:52 physical therapist referral - eval and treat 2023 024 [email or web address] [facility] Physical, Occupational & Speech Medicine & Rehab, [address] [place], [address], 4 16:24:42 pulmonolog ist referral 2023 024 mariely Stokes MD, [address] [place], [address], 5 10:06:14 gastroente rologist referral 2023 024 amena Escobedo MD, [address] [place], [address], 4 10:25:[address] referral 2023 024 [place], [address] [address], [facility] [address], [place], [address], 5 10:06:14 pulmonolog ist referral 2023 024 amena Stokes MD, [address] [place], [address], 4 10:24:12 gastroente rologist referral - Please call patient to schedule. 2023 024 KARAN Escobedo MD, [address] [place], [address], 4 10:58:[address] referral 2023 024 [place], [address] [address], [address], [place], [address], 4 10:24:11 Procedures injection, hip, fluoro guidance (PROC) - 4cc 1% Lidocaine & 40mg Depomedrol Precertifi cation Required?: N 2023 024 [email or web address] [facility] ([facility]), [address] [place], [address], 4 16:24:42 Surgeries None recorded. Imaging LDCT, chest, for lung cancer screening 2023 024 [facility] ([facility] Scheduling), [address] [place], [address], 4 08:23:35 LDCT, chest, for lung cancer screening 2023 024 [email or web address] [facility] ([facility] Scheduling), [address] [place], [address], 5 09:47:50 Medication Orders meloxicam 15 mg tablet 2023 024 [facility], [address] [place] [address], [address], 4 15:47:51 albuterol sulfate HFA 90 mcg/actuat ion aerosol inhaler 2023 024 [facility], [address] [place] [address], [address], 4 14:50:18 Symbicort 160 mcg-4.5 mcg/actuat ion HFA aerosol inhaler 2023 024 [facility], [address] [place] [address], [address], 4 14:50:17 Spiriva Respimat 2.5 mcg/actuat ion solution for inhalation 2023 024 [facility], [address] [place] [address], [address], 4 14:50:18 albuterol sulfate HFA 90 mcg/actuat ion aerosol inhaler 2023 024 [facility], [address] [place] [address], [address], 4 16:17:17 albuterol sulfate HFA 90 mcg/actuat ion aerosol inhaler 2023 024 [facility], [address] [place] [address], [address], 4 17:07:19 cyanocobal thompson (vit B-12) 1,000 mcg/mL injection solution [address] [place] [address] Pharm[facility] [address], [address] [place] [address], [address], 4 09:47:15 Patient TargetsNo targets recorded. Patient Instructions Encounter Date Encounter Id Patient Instructions Last Modified By Organization Details Last Modified Time 09/02/2023 [id number] complete PFT w/ post bronchodilator spirometry* [email or web address] Not available 09/10/2023 09:25:30 Reason for Referral Optic Fibre Drawer Referral for Co ronary arteriosclerosis Referring Physician: Rory Looney, Internal Medicine, Encounter Date: 07/17/2023 Job Superintendent Referral for Crohn's disease Referring Physician: Rory Looney Internal Medicine, Encounter Date: 07/17/2023 Employee Benefits Manager Referral for C hronic obstructive pulmonary disease Referring Physician: Rory Looney Internal Medicine, Encounter Date: 07/17/2023 Orthopedic Surgeon Referral for Pain of left hip joint Referring Physician: Rory Looney Internal Medicine, Encounter Date: 07/17/2023 Physical Therapist Referral for Osteoarthritis of left hip joint eval and treat Referring Physician: Pooja Bergeron, Orthopedic Surgery, Encounter Date: 08/06/2023 Optic Fibre Drawer Referral for Co ronary arteriosclerosis Referring Physician: Rory Looney Internal Medicine, Encounter Date: 12/25/2023 Job Superintendent Referral for Crohn's disease Referring Physician: Rory Looney Internal Medicine, Encounter Date: 12/25/2023 Employee Benefits Manager Referral for C hronic obstructive pulmonary disease Referring Physician: Rory Looney Internal Medicine, Encounter Date: 12/25/2023 Optic Fibre Drawer Referral for Co ronary arteriosclerosis Referring Physician: Rory Looney Internal Medicine, Encounter Date: 04/29/2024 Job Superintendent Referral for Crohn's disease Please call patient to schedule. Referring Physician: Rory Looney Internal Medicine, Encounter Date: 04/29/2024 Employee Benefits Manager Referral for C hronic obstructive pulmonary disease Referring Physician: Rory Looney Internal Medicine, Encounter Date: 04/29/2024 Results Created Date Observation Date Name Description Value Unit Range Abnormal Flag Note LastModifiedBy Organization Detail LastModifiedTime 12/26/19 24 12/26/2023 CBC/C OMPLE TE BLD COUNT W/DIF F white blood cells 7.0 x10'3 /uL 4.2-10 .8 Not Available [facility] (Lab) [address] [place], [address], 12/26/2023 10:36:53 12/26/19 24 12/26/2023 CBC/C OMPLE TE BLD COUNT W/DIF F red blood cells 3.48 x10'6 /uL 4.10-5 .80 low Not Available [facility] (Lab) [address] [place], [address], 12/26/2023 10:36:53 12/26/19 24 12/26/2023 CBC/C OMPLE TE BLD COUNT W/DIF F hemoglobin 11.4 g/dL 13.2-1 7.0 low Not Available [facility] (Lab) [address] [place], [address], 12/26/2023 10:36:53 12/26/19 24 12/26/2023 CBC/C OMPLE TE BLD COUNT W/DIF F hematocrit 34.8 % 39.3-5 0.0 low Not Available [facility] (Lab) [address] [place], [address], 12/26/2023 10:36:53 12/26/19 24 12/26/2023 CBC/C OMPLE TE BLD COUNT W/DIF F mean red cell volume 100.0 fL 80.0-9 7.0 high Not Available [facility] (Lab) [address] [place], [address], 12/26/2023 10:36:53 12/26/19 24 12/26/2023 CBC/C OMPLE TE BLD COUNT W/DIF F mean red cell hemoglobin 32.8 pg 27.0-3 3.0 Not Available [facility] (Lab) [address] [place], [address], 12/26/2023 10:36:53 12/26/19 24 12/26/2023 CBC/C OMPLE TE BLD COUNT W/DIF F mean RBC HGB concentratio n 32.8 g/dL 31.0-3 6.0 Not Available [facility] (Lab) [address] [place], [address], 12/26/2023 10:36:53 12/26/19 24 12/26/2023 CBC/C OMPLE TE BLD COUNT W/DIF F red cell distribution width 14.5 % 11.8-1 5.5 Not Available [facility] (Lab) [address] [place], [address], 12/26/2023 10:36:53 12/26/19 24 12/26/2023 CBC/C OMPLE TE BLD COUNT W/DIF F platelets 286 x10'3 /uL 150-40 0 Not Available [facility] (Lab) [address] [place], [address], 12/26/2023 10:36:53 12/26/19 24 12/26/2023 CBC/C OMPLE TE BLD COUNT W/DIF F mean platelet volume 8.3 fL 9.0-12 .4 low Not Available [facility] (Lab) [address] [place], [address], 12/26/2023 10:36:53 12/26/19 24 12/26/2023 CBC/C OMPLE TE BLD COUNT W/DIF F neutrophils 54.8 % 39.0-7 2.0 Not Available [facility] (Lab) [address] [place], [address], 12/26/2023 10:36:53 12/26/19 24 12/26/2023 CBC/C OMPLE TE BLD COUNT W/DIF F lymphocytes 33.9 % 16.0-4 7.0 Not Available [facility] (Lab) [address] [place], [address], 12/26/2023 10:36:53 12/26/19 24 12/26/2023 CBC/C OMPLE TE BLD COUNT W/DIF F monocytes 10.3 % 5.0-12 .0 Not Available [facility] (Lab) [address] [place], [address], 12/26/2023 10:36:53 12/26/19 24 12/26/2023 CBC/C OMPLE TE BLD COUNT W/DIF F eosinophils 0.4 % 1.0-7. 0 low Not Available [facility] (Lab) [address] [place], [address], 12/26/2023 10:36:53 12/26/19 24 12/26/2023 CBC/C OMPLE TE BLD COUNT W/DIF F basophils 0.3 % 0.0-2. 0 Not Available [facility] (Lab) [address] [place], [address], 12/26/2023 10:36:53 12/26/19 24 12/26/2023 CBC/C OMPLE TE BLD COUNT W/DIF F immature granulocytes 0.3 % 0.00-0 .50 Not Available [facility] (Lab) [address] [place], [address], 12/26/2023 10:36:53 12/26/19 24 12/26/2023 CBC/C OMPLE TE BLD COUNT W/DIF F neutrophils, absolute count 3.83 x10'3 /uL 1.5-8. 0 Not Available [facility] (Lab) [address] [place], [address], 12/26/2023 10:36:53 12/26/19 24 12/26/2023 CBC/C OMPLE TE BLD COUNT W/DIF F lymphocytes, absolute count 2.37 x10'3 /uL 1.07-3 .43 Not Available [facility] (Lab) [address] [place], [address], 12/26/2023 10:36:53 12/26/19 24 12/26/2023 CBC/C OMPLE TE BLD COUNT W/DIF F monocytes, absolute count 0.72 x10'3 /uL 0.29-0 .99 Not Available [facility] (Lab) [address] [place], [address], 12/26/2023 10:36:53 12/26/19 24 12/26/2023 CBC/C OMPLE TE BLD COUNT W/DIF F eosinophils, absolute count 0.03 x10'3 /uL 0.02-0 .53 Not Available [facility] (Lab) [address] [place], [address], 12/26/2023 10:36:53 12/26/19 24 12/26/2023 CBC/C OMPLE TE BLD COUNT W/DIF F basophils, absolute count 0.02 x10'3 /uL 0.01-0 .08 Not Available [facility] (Lab) [address] [place], [address], 12/26/2023 10:36:53 12/26/19 24 12/26/2023 CBC/C OMPLE TE BLD COUNT W/DIF F immature granulocytes ,absolute 0.02 x10'3 /uL 0.00-0 .05 Not Available [facility] (Lab) [address] [place], [address], 12/26/2023 10:36:53 12/26/19 24 12/26/2023 CBC/C OMPLE TE BLD COUNT W/DIF F nucleated red blood cells 0.0 % -[address] [facility] (Lab) [address] [place], [address], 12/26/2023 10:36:53 12/26/19 24 12/26/2023 CBC/C OMPLE TE BLD COUNT W/DIF F NRBC# 0.00 x10'3 /uL Not Available [facility] (Lab) [address] [place], [address], 12/26/2023 10:36:53 12/26/19 24 12/26/2023 LIPID PANEL cholesterol 88 mg/dL 140-19 9 low [facility] NSUS RECOM MENDA TION FOR NAZ STERO L: ADULT CHILD LOW RISK: <200 <170 BORDE RLINE : <200- 239 ----- HIGH RISK: >240 >200 Not Available [facility] (Lab) [address] [place], [address], 12/26/2023 11:01:07 12/26/19 24 12/26/2023 LIPID PANEL triglyceride s 154 mg/dL 0-150 high [facility] NSUS REPOR T RECOM MENDA TION FOR TRIGL YCERI CHELI: ADULT CHILD LOW RISK: <150 ----- BODER LINE: 150-1 99 ----- HIGH RISK: >200 ----- Not Available [facility] (Lab) [address] [place], [address], 12/26/2023 11:01:07 12/26/19 24 12/26/2023 LIPID PANEL HDL cholesterol 51 mg/dL 40- Not Available [facility] (Lab) [address] [place], [address], 12/26/2023 11:01:07 12/26/19 24 12/26/2023 LIPID PANEL [...] WILL NOT BE REPOR MENDOZA. Not Available [facility] (Lab) [address] [place], [address], 12/26/2023 11:01:07 12/26/19 24 12/26/2023 COMP MET PANEL /LIVE R sodium 138 mmol/ L 137-14 5 Not Available [facility] (Lab) [address] [place], [address], 12/26/2023 11:01:11 12/26/19 24 12/26/2023 COMP MET PANEL /LIVE R potassium 3.7 mmol/ L 3.5-5. 1 Not Available [facility] (Lab) [address] [place], [address], 12/26/2023 11:01:11 12/26/19 24 12/26/2023 COMP MET PANEL /LIVE R chloride 109 mmol/ L 98-107 high Not Available [facility] (Lab) [address] [place], [address], 12/26/2023 11:01:11 12/26/19 24 12/26/2023 COMP MET PANEL /LIVE R carbon dioxide 23 mmol/ L 22-30 Not Available [facility] (Lab) [address] [place], [address], 12/26/2023 11:01:11 12/26/19 24 12/26/2023 COMP MET PANEL /LIVE R anion gap 9.7 mmol/ L 14-22 low Not Available [facility] (Lab) [address] [place], [address], 12/26/2023 11:01:11 12/26/19 24 12/26/2023 COMP MET PANEL /LIVE R glucose 78 mg/dL 70-99 Not Available [facility] (Lab) [address] [place], [address], 12/26/2023 11:01:11 12/26/19 24 12/26/2023 COMP MET PANEL /LIVE R BUN 18 mg/dL 8-19 Not Available [facility] (Lab) [address] [place], [address], 12/26/2023 11:01:11 12/26/19 24 12/26/2023 COMP MET PANEL /LIVE R creatinine 1.26 mg/dL 0.66-1 .25 high Not Available [facility] (Lab) [address] [place], [address], 12/26/2023 11:01:11 12/26/19 24 12/26/2023 COMP MET PANEL /LIVE R GFR >60 Refer ence Range : Vail ge GFR Healt hy Adult : >60 [...] calcu lator is avail able on the [facility] websi te: [email or web address] :[email or web address] rg/pr ofess ional s/kdo qi/gf r_cal culat or Not Available [facility] (Lab) [address] [place], [address], 12/26/2023 11:01:11 12/26/19 24 12/26/2023 COMP MET PANEL /LIVE R alkaline phosphatase 126 U/L 38-126 Not Available [facility] (Lab) [address] [place], [address], 12/26/2023 11:01:11 12/26/19 24 12/26/2023 COMP MET PANEL /LIVE R alanine aminotransfe rase 44 U/L 0-[address] [facility] (Lab) [address] [place], [address], 12/26/2023 11:01:11 12/26/19 24 12/26/2023 COMP MET PANEL /LIVE R aspartate aminotransfe rase 30 U/L 15-[address] [facility] (Lab) [address] [place], [address], 12/26/2023 11:01:11 12/26/1912/26/2023 COMP MET PANEL /LIVE R bilirubin, total 0.40 mg/dL 0.20-1 .30 Not Available [facility] (Lab) [address] [place], [address], 12/26/2023 11:01:11 12/26/1912/26/2023 COMP MET PANEL /LIVE R bilirubin, conjugated (direct) 0.00 mg/dL 0.00-0 .30 Not Available [facility] (Lab) [address] [place], [address], 12/26/2023 11:01:11 12/26/19 24 12/26/2023 COMP MET PANEL /LIVE R biliurubin,u ncong. (indirect) 0.20 mg/dL 0.00-1 .1 Not Available [facility] (Lab) [address] [place], [address], 12/26/2023 11:01:11 12/26/1912/26/2023 COMP MET PANEL /LIVE R calcium 8.3 mg/dL 8.4-10 .2 low Not Available [facility] (Lab) [address] [place], [address], 12/26/2023 11:01:11 12/26/1912/26/2023 COMP MET PANEL /LIVE R total protein 6.7 g/dL 6.3-8. 2 Not Available [facility] (Lab) [address] [place], [address], 12/26/2023 11:01:11 12/26/1912/26/2023 COMP MET PANEL /LIVE R albumin 3.7 g/dL 3.4-5. 0 Not Available [facility] (Lab) [address] [place], [address], 12/26/2023 11:01:11 12/26/19 24 12/26/2023 COMP MET PANEL /LIVE R globulin 3.0 g/dL 2.6-4. 2 Not Available [facility] (Lab) [address] [place], [address], 12/26/2023 11:01:11 12/26/19 24 12/26/2023 COMP MET PANEL /LIVE R A/G ratio 1.2 ratio 1.0-2. 0 Not Available [facility] (Lab) [address] [place], [address], 12/26/2023 11:01:11 12/26/19 24 12/26/2023 VITAM IN D 25-HY DROXY [id number] <12.8 NG/mL 30-100 low Vitam in D Statu s: Defic ient: <20 ng/mL Insuf ficie nt: 20-29 ng/mL Suffi cient : 30-10 0 ng/mL Not Available [facility] (Lab) [address] [place], [address], 12/26/2023 11:23:11 12/26/19 24 12/26/2023 HEMOG LOBIN A1C HA1C 5.9 % 4.0-6. 0 Diabe cinthya Scree krystal Crite jimmie: <5.7% Consi stent with absen ce of diabe cinthya 5.7-6 .4% Consi stent with incre ased risk for diabe cinthya (pred iabet es) >OR=6 .5% Consi stent with diabe cinthya REFER ENCE: Diabe cinthya Care 2016, 39(Mccracken ppl.1 ):s13 -s22 Not Available [facility] (Lab) [address] [place], [address], 12/26/2023 11:41:10 12/26/19 24 12/26/2023 TSH W/REF TOO FT4 TSH with reflex free T4 1.870 uIU/m L 0.465- 4.680 Not Available [facility] (Lab) [address] [place], [address], 12/26/2023 11:43:57 12/26/19 24 12/26/2023 PSA SCREE N PSA medicare screen 0.61 NG/mL 0.00-4 .00 Not Available [facility] (Lab) [address] [place], [address], 12/26/2023 11:44:02 12/26/19 24 12/26/2023 MICRO ALBUM IN RANDO M URINE microalbumin , urine 34.0 mg/L 0.0-16 .6 high Not Available [facility] (Lab) [address] [place], [address], 12/26/2023 11:45:49 12/26/19 24 12/26/2023 VITAM IN B12 (MAINE JAILENE ) vb12 <159 pg/mL 239-93 1 low Not Available [facility] (Lab) [address] [place], [address], 12/26/2023 12:07:32 12/26/19 24 12/26/2023 FOLAT E, SERUM /PLAS MA folate 9.55 NG/mL 2.76-2 0.0 Not Available [facility] (Lab) [address] [place], [address], 12/26/2023 12:07:37 07/29/19 24 07/28/2023 LDCT, chest , for lung cance r oneliae krystal [facility] [address] [place], [place] [id number] Patien t Name: JOSÉ LUIS CHICAS Access ion #: [id number] Sex: M : 1965 5 Dictat ed By: Ute Lester [facility] Physic max: MIKALA GARRETT Physic max: MIKALA GARRETT Exam Date: 2023 [...] signif icant pneumo thorax . Page 1 [facility] [address] [address] Patien t Name: JOSÉ LUIS CHICAS Access ion #: [id number] Sex: M : 1965 5 Dictat ed By: Ute desai Solares Attend ing Physic max: PINEDA SANTOS [facility] Physic max: MIKALA GARRETT Exam Date: 2023 [...] 2023 07:22: 20 AM Page 2 INTERFACE [facility] (Imaging) [address] [place], [address], 07/29/2023 08:23:35 07/29/19 24 07/28/2023 LDCT, chest , for lung cance r scree krystal No observ ation record ed. [email or web address] ([facility]) [address] [place], [address], 02/03/2024 11:52:28 07/29/19 24 07/09/2023 XR, hip + pelvi s, bilat eral No observ ation record ed. [email or web address] Not Available 2023 17:07:56 08/07/19 24 08/07/2023 XR, chest , 1 view No observ ation record ed. [email or web address] [facility] [address] [place], [address], 02/03/2024 16:13:51 02/13/20 24 02/13/2024 XR, chest , 1 view No observ ation record ed. [email or web address] [facility] [address] [place], [address], 05/03/2024 15:57:28 04/02/20 24 04/01/2024 XR, chest , 1 view No observ ation record ed. [address] [place], [address], 05/03/2024 15:57:43 05/11/20 24 05/11/2024 XR, chest , 1 view No observ ation record ed. [address] [place], [address], 06/22/2024 09:47:17 06/12/19 25 06/12/2024 XR, chest , 1 view No observ ation record ed. [address] [place], [address], 06/22/2024 09:47:02 06/16/19 25 06/15/2024 XR, chest , 1 view No observ ation record ed. [address] [place], [address], 06/22/2024 09:46:50 Result Notes None recorded. Problems Name Problem SNOMED Code Status Onset Date Resolution Date Notes Provider Name and Address Organization Details Recorded Time Cobalamin deficienc y 547337094 Active 2021 Not Available [facility] 3 03:14:45 Inflammat ory bowel disease 57036827 Completed Not Available [facility] 3 00:45:36 Bronchiti s 30571914 Completed 201911/08/2020 Not Available [facility] 3 00:45:36 Crohn's disease 77752984 Active 2019 Not Available [facility] 3 03:14:45 Vitamin D deficienc y 06907310 Active 2021 Not Available [facility] 3 03:14:45 Hemorrhoi ds 99769159 Active 2022 Not Available [facility] 3 03:14:45 Prediabet es 494374904 Active 05/05/ 2023 Not Available [facility] 3 03:14:45 Iron deficienc y anemia 87047225 Active 2022 Not Available [facility] 3 03:14:45 Hyperlipi demia 37848274 Active 2022 Not Available [facility] 3 03:14:45 Essential hypertens ion 90978855 Active 2022 Not Available [facility] 3 03:14:45 Smoker 53649721 Active 2022 Not Available [facility] 3 03:14:45 Severe chronic obstructi ve pulmonary disease 605953678 Active 2022 Not Available [facility] 3 03:14:45 Full thickness rotator cuff tear 656390236 Active 2022 Not Available [facility] 3 03:14:45 Coronary arteriosc lerosis 46232294 Active 2023 Rory desai MD [address], [place], [address] , [facility] 4 15:52:15 Serum vitamin B12 below reference range 618516202 Active 2023 Rory desai MD [address], [place], [address] , [facility] 4 16:17:05 Osteoarth ritis of left hip joint 58676917584 9108 Active 2023 Felicia sol, [facility] 4 14:46:58 Pain of left hip joint 02796704326 9100 Active 2023 Rory desai MD [address], [place], [address] , [facility] 4 18:33:20 Chronic obstructi ve pulmonary disease 44136355 Active 2023 Rory desai MD [address], [place], [address] , [facility] 4 18:33:20 Cigarette smoker 43908686 Active 2023 Rory desai MD [address] [address], [place], [address] , [facility] 4 18:33:20 Serum creatinin e above reference range 103108690 Active 2023 Felisha Uriostegui MA null, [facility] 4 15:51:55 Vitamin B12 deficienc y (non anemic) 39744425 Active 2023 Felisha Uriostegui MA null, [facility] 4 14:38:52 Anemia 130052191 Active 2023 Felisha Uriostegui MA null, [facility] 4 14:39:13 Notes:Medical History: Rhini tis to [...] Time revision of colostomy completed Not Available [facility] 07/24/2022 00:41:56 partial resection of colon completed Not Available [facility] 07/24/2022 00:41:56 open reduction of fracture of femur completed Not Available [facility] 07/24/2022 00:41:56 colostomy completed Not Available [facility] 0 07/24/2022 00:41:56 Colonoscopy completed Not Available [facility] 07/24/2022 00:41:56 Imaging Results Imaging Date Name Status LastModified by [facility]iz [facility] Details LastModified Time 07/28/2023 LDCT, chest, for lung cancer screening active INTERFACE [facility] (Imaging) [address] [place], [address], 07/29/2023 08:23:35 07/28/2023 LDCT, chest, for lung cancer screening completed [address] ([employer]) [address] [place], [address], 02/03/2024 11:52:28 07/09/2023 XR, hip + pelvis, bilateral completed [email or web address] Information not available 07/29/2023 17:07:56 08/07/2023 XR, chest, 1 view completed [address] [place], [address], 02/03/2024 16:13:51 02/13/2024 XR, chest, 1 view completed [address] [place], [address], 05/03/2024 15:57:28 04/01/2024 XR, chest, 1 view completed [address] [place], [address], 05/03/2024 15:57:43 05/11/2024 XR, chest, 1 view active [address] [place], [address], 06/22/2024 09:47:17 06/12/2024 XR, chest, 1 view active [address] [place], [address], 06/22/2024 09:47:02 06/15/2024 XR, chest, 1 view active [address] [place], [address], 06/22/2024 09:46:50 Procedure Notes None recorded. Medical Equipment None Reported. Allergies Allergen ID Allergen Name Allergen Category Reaction Reaction Severity Criticality Documentation Date Start Date Code Code System Note Provider Name and Address Organization Details Recorded Time 227 Dilaudid medicatio n itching Not available Not available 07/24/2022 00414 3 RxNorm Not Available [facility] 3 00:49:49 Medications Name Sig Start Date [...] Available prednison e 10 mg tablet TAKE 4 TABLETS BY MOUTH ONCE DAILY FOR 5 DAYS active Not Available Not Available No [...] completed Not Available Not Available Not Available isosorbid e mononitra te ER 60 mg tablet,ex tended release 24 hr TAKE 1 TABLET BY MOUTH ONCE DAILY active Not Available Not Available No t Available Kenalog 10 mg/mL suspensio n for injection Take 20 mg by injectio n route. 11/12 completed [facility]: [phone] 09-12 Not Available Not Available Not [...] 11/12 completed [facility] [address]- Not Available Not Available Not Available Spiriva [...] Updated DateTime 4 170.18 cm 22.2 kg/m2 59427.1 2 g 97.3 [degF] 96 /min 140 mm[Hg] 80 mm[Hg] Joanne Hassan [facility] 4 15:48:32 Date Recorded Body height Body mass index (BMI) Body weight Provider Name and Address Organization Details Last Updated DateTime 08/06/2023 170.18 cm 22.4 kg/m2 41071.71 g Jennifer Bardales [facility] 08/06/2023 14:18:26 Date Recorded Body height Body mass index (BMI) Body weight Body temperature Oxygen saturation Oxygen saturation in Arterial blood by Pulse oximetry Provider Name and Address Organization Details Last Updated DateTime 4 170.18 cm 21.8 kg/m2 22780.7 8 g 98.8 [degF] 97 % 97 % Reny Ross MA [facility] [employer] [facility] 4 14:30:49 Date Recorded Heart rate Respiratory rate Heart rate Systolic blood pressure Diastolic blood pressure Provider Name and Address Organization Details Last Updated DateTime 09/02/2023 99 /min 15 /min 99 /min 140 mm[Hg] 90 mm[Hg] Piter Stokes MD [address] [facility] [address], [place], [address], [facility] [employer] 4 14:59:25 Date Recorded Body height Body mass index (BMI) Body weight Body temperature Heart rate Oxygen saturation Oxygen saturation in Arterial blood by Pulse oximetry Systolic blood pressure Diastolic blood pressure Provider Name and Address Organization Details Last Updated DateTime 4 170.18 cm 22.1 kg/m2 10561.5 2 g 98.3 [degF] 105 /min 96 % 96 % 142 mm[Hg] 88 mm[Hg] Reny Ross MA [facility] [employer] [facility] 4 15:47:04 Date Recorded Body height Body mass index (BMI) Body weight Body temperature Heart rate Systolic blood pressure Diastolic blood pressure Provider Name and Address Organization Details Last Updated DateTime 4 170.18 cm 21.5 kg/m2 36764.1 5 g 97.9 [degF] 84 /min 136 mm[Hg] 80 mm[Hg] JUAN Noble [facility] [employer] [facility] 4 16:26:44 Social History Question Answer Notes LastModified by Organization Details LastModified Time Tobacco Smoking Status Current Some Day Smoker Not Available [facility] 07/24/2022 00:41:11 Do You Have An Advance Directive? No MIGRATION.0301 [id number] Information not available 07/24/2022 What Is Your Level Of Alcohol Consumption? Occasional MIGRATION.030 [id number] Information not available 07/24/2022 What Is Your Level Of Caffeine Consumption? Occasional MIGRATION.0301 [id number] Information not available 07/24/2022 How Much Tobacco Do You Chew? None MIGRATION.0301 [id number] Information not available 07/24/2022 In The 14 Days Before Symptom Onset, Have You Had Close Contact With A Laboratory-conf irmed COVID-19 While That Case Was Ill? No MIGRATION.0301 [id number] Information not available 07/24/2022 In The 14 Days Before Symptom Onset, Have You Had Close Contact With A Person Who Is Under Investigation For COVID-19 While That Person Was Ill? No MIGRATION.0301 226113 Information not available 07/24/2022 Are You Currently Employed? Yes Information not available 09/02/2023 What Type Of Diet Are You Following? REGULAR MIGRATION.0301 [id number] Information not available 07/24/2022 Which Illicit Or Recreational Drugs Have You Used? Cocaine, Cannabis No Longer Cocaine Information not available 09/02/2023 Do You Or Have You Ever Used E-cigarettes Or Vape? Never Used Electronic Cigarettes MIGRATION.0301 893102 Information not available 07/24/2022 What Is The Highest Grade Or Level Of School You Have Completed Or The Highest Degree You Have Received? [id number] MIGRATION.0301 [id number] Information not available 07/24/2022 Do You Have An Electrostatic Air Filter? 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 No MIGRATION.0301 [id number] Information not available 07/24/2022 Are There Any Guns Present In Your Home? No MIGRATION.0301 457085 Information not available 07/24/2022 Do You Have A Humidifier? No Information not available 10/03/2022 Do You Use Insect Repellent Routinely? No MIGRATION.0301 349586 Information not available 07/24/2022 Where Do You Live? [facility] MIGRATION.0301 [id number] Information not available 07/24/2022 Do You Have A Medical Power Of Personalized Living Manager? No MIGRATION.0301 574048 Information not available 07/24/2022 Do You Have Moisture Problems In Your Home? No Information not available 10/03/2022 What Was The Date Of Your Most Recent Tobacco Screening? 12/25/2023 Information not available 12/25/2023 Do You Have Any Pets? Yes MIGRATION.0301 884885 Information not available 07/24/2022 What Is Your Relationship Status? Information not available 09/02/2023 Do You Use Your Seat Belt Or Car Seat Routinely? Yes MIGRATION.0301 761814 Information not available 07/24/2022 Do You Have Smoke And Carbon Monoxide Detectors In Your Home? Yes MIGRATION.0301 518932 Information not available 07/24/2022 At What Age Did You Start Smoking Tobacco? 17 MIGRATION.0301 878910 Information not available 07/24/2022 Are You Passively Exposed To Smoke? Yes MIGRATION.0301 978900 Information not available 07/24/2022 Do You Or Have You Ever Used Smokeless Tobacco? Never Used Smokeless Tobacco MIGRATION.0301 113163 Information not available 07/24/2022 Are There Any Smokers In Your House? No MIGRATION.0301 017532 Information not available 07/24/2022 How Much Tobacco Do You Smoke? 1 PPW Smokes 1 Cigarette Every Other Day Information not available 09/02/2023 Do You Feel Stressed (tense, Restless, Nervous, Or Anxious, Or Unable To Sleep At Night)? [id number] MIGRATION.0301 341753 Information not available 07/24/2022 Do You Use Any Illicit Or Recreational Drugs? Yes Cannabis Information not available 09/02/2023 Do You Use Sunscreen Routinely? No MIGRATION.0301 472393 Information not available 07/24/2022 How Many Years Have You Smoked Tobacco? 30 MIGRATION.0301 826531 Information not available 07/24/2022 Have You Recently Traveled Abroad? No MIGRATION.0301 501392 Information not available 07/24/2022 Do You Or Have You Ever Used Any Other Forms Of Tobacco Or Nicotine? No [email or web address] Information not available 07/17/2023 Sex: Unknown Functional Status Question Answer Note LastModified by Organizat ion Details LastModified Time What is your exercise level? Moderate [id number] Information not available 07/24/2022 Mental Status None recorded. Family History Relationship Description Onset Age of this Age Resolved Age Notes LastModified by Organization Details LastModified Time Father Kidney disease MIGRATION.469 [id number] Not available 07/24/2022 00:42:01 Father Hypertensive disorder MIGRATION.532 [id number] Not available 07/24/2022 00:42:01 Father Malignant neoplasm of brain MIGRATION.796 [id number] Not available 07/24/2022 00:42:01 Mother Hypertensive disorder MIGRATION.224 [id number] Not available 07/24/2022 00:42:01 Mother Diabetes mellitus MIGRATION.188 [id number] Not available 07/24/2022 00:42:01 Sister Hypertensive disorder MIGRATION.668 [id number] Not available 07/24/2022 00:42:01 Sister Diabetes mellitus MIGRATION.731 [id number] Not available 07/24/2022 00:42:01 Brother Hypertensive disorder MIGRATION.447 [id number] Not available 07/24/2022 00:42:01 Brother Diabetes mellitus MIGRATION.088 [id number] Not available 07/24/2022 00:42:01 Medical History Condition [...] HAVE YOU BEEN HOSPITALIZED OR SEEN IN [facility] IN THE PAST YEAR ? Y ATHEROSCLEROSIS [...] dose 05/09/2022 completed Jg Echeverria LPN null, [employer] [facility] 11/26/2023 13:53:30 COVID-19, mRNA, LNP-S, PF, 30 mcg/0.3 mL dose 12/25/2020 completed JEROD Melgar, [employer] [facility] 11/26/2023 13:53:30 COVID-19, mRNA, LNP-S, PF, 30 mcg/0.3 mL dose 12/04/2020 completed JEROD Melgar, [employer] [facility] 11/26/2023 13:53:30 Influenza, split virus, quadrivalent, PF 04/06/2021 completed Not Available [facility] 3 04:37:28 Influenza, split virus, quadrivalent, PF 05/06/2022 completed Not Available [facility] 3 04:37:28 Past Encounters Encounter ID Performer Location Encounter Start Date Encounter Closed Date Diagnosis/Indication Diagnosis SNOMED-CT Code Diagnosis ICD10 Code Diagnosis Note [id number] [facility] Internal Med [facility] [address] [place] [address] 08/01/2020 00:00:00 08/01/2020 16:37:44 [id number] _ATHENA_M IGRATION_ DEFAULT_1 _1 , 09/20/2020 00:00:00 09/20/2020 15:25:02 [id number] [facility] Internal [facility] [address] [place] [address] 11/03/2020 00:00:00 11/03/2020 17:00:30 [id number] [facility] [address] [place] [address] 11/09/2020 00:00:00 11/09/2020 09:53:13 [id number] [facility] Internal Med [address] [address] 01/01/2021 00:00:00 01/01/2021 22:08:04 [id number] [facility] [address] [address] 02/05/2021 00:00:00 02/05/2021 20:36:33 [id number] [facility] [address] [place] [address], [address] [address] 03/05/2021 00:00:00 03/05/2021 17:43:24 [id number] [facility] [address] [address] 03/05/2021 00:00:00 03/05/2021 15:11:04 [id number] [facility] [address] [address] 03/16/2021 00:00:00 03/16/2021 15:46:45 [id number] [facility] [address] [address] 04/06/2021 00:00:00 04/06/2021 11:56:13 [id number] [facility] [address] [address] 05/04/2021 00:00:00 05/04/2021 14:43:21 [id number] [facility] [address] [address] 06/15/2021 00:00:00 06/15/2021 17:13:13 [id number] [facility] [address], [address] [address] 06/18/2021 00:00:00 10/12/2021 15:07:07 [id number] [facility] [place] [address] [place] [address] 07/11/2021 00:00:00 07/11/2021 15:09:46 [id number] [facility] Pulmonolo gy [address] [address] 11/14/2021 00:00:00 11/14/2021 10:20:15 [id number] [facility] Internal Med [address] [address] 05/06/2022 00:00:00 05/06/2022 16:43:34 [id number] [facility] [place] [address] [facility] [address] [place] [address] 06/18/2022 00:00:00 06/26/2022 16:48:12 [id number] [facility] Internal Med [facility] [address] [place] [address], [address] [address] 07/08/2022 00:00:00 07/08/2022 15:00:44 [id number] SAMANTHA Ozuna [facility] [address] [address] 09/30/2022 13:52:54 09/30/2022 14:19:12 Chronic obstructive pulmonary disease 31774203 J44.9 On Bevespi, prn albuterol He needs to be taking his Bevespi daily, reminded him to do soFollowin g pulm- Dr. Stokes, we were able to get him an appt scheduled for next week History of coronary artery bypass grafting 810796549 Z95.1 on plavix, [facility] Crohn's disease 17423284 K50.90 Following GI- Dr. Escobedo Hemorrhoids 25004735 K64 .9 using Anusol prn Nicotine dependence 5629 4008 F17.200 3 minutes spent with patient discussing risks, cessation options. Patient encouraged to quit. Continue wellbutrin get LDCT- he has order call office if any change in mood or behavior Prediabetes 831654732 R7 3.03 continue diet/exerc ise efforts Vitamin D deficiency 347 83562 E55.9 on supplement Cobalamin deficiency 190 614496 E53.8 on b12 injections monthly Iron defic iency anemia 94714292 D50.9 on PO iron Hyperlipidemia 37183131 E78.5 on rosuvastat in Feeling irritable 766080 07 R45.4 on wellbutrin , he is aware of side effects, risks, benefitsca ll office if any change in mood or behaviorhe declines psychiatry referral and/or counseling referral today Normal weight 74676243 Z 68.23 recommend healthy, well balanced mealsfocus on lean meats, fresh vegetables , fresh fruits, whole grainsredu ce fast/proce ssed foods or eating out to no more than 1-2 times per weekaim to get 30 min of exercise most days of the week- walking is a great choice Slowing of urinary stream 24372581 R39.12 get appt with urology- has been referred Essential hypertension 57542654 I10 cardiology is working him up for [...] remember Pain of ri ght shoulder joint 0164528162 2632314 M25.511 Get another appointmen t with Ortho, he is wanting another round of injections [id number] Piter Stokes MD [facility] Pul[facility] gy [place] [address] [facility] [address] [place] [address] 10/03/2022 15:20:10 10/04/2022 08:34:40 Smoker 34669093 F17.218 F17.219 Z87.891 Severe chr onic obstructive pulmonary disease 359096265 J44.9 [id number] RHETT Manley [facility] [place] [address] [place] [address] 10/22/2022 15:24:22 10/22/2022 16:03:44 Bilateral shoulder joint pain 4980906574 8903680 M25.511 M25.512 Pain of ri ght shoulder joint 4215554642 4845014 M25.511 [id number] Ar Dhillon MD [facility] [place] [address] [facility] [address] [place] [address] 11/12/2022 11:32:52 11/12/2022 12:13:27 Pain of right shoulder joint 5545357048 1640063 M25.511 Full thick ness rotator cuff tear 499684445 M75.121 patient has had some chronic issues [...] in patients in their 40s and 50s [id number] SAMANTHA Ozuna [facility] Internal Med [facility] [address] [facility] [place] [address] 01/24/2023 15:14:08 01/24/2023 15:40:48 Chronic obstructive pulmonary disease 06162689 J44.9 On Bevespi, prn albuterol He needs to be taking his Bevespi daily, reminded him to do soFollowin g pulm- Dr. Stokes History of coronary artery bypass grafting 996603236 Z95.1 on plavix, ASAfollows [facility]- Dr. Elliott- has another appt [place] [address] surgery- Dr. Curry at [facility] Crohn's disease 35389567 K50.90 Following GI- Dr. Escobedo Hemorrhoids 01525526 K64 .9 using Anusol prn Nicotine dependence 5629 4008 F17.200 3 minutes spent with patient discussing risks, cessation options. Patient encouraged to quit. Continue wellbutrin call office if any change in mood or behavior Prediabetes 539561480 R7 3.03 continue diet/exerc ise efforts Vitamin D deficiency 347 87908 E55.9 on supplement Cobalamin deficiency 190 396918 E53.8 on b12 injections monthly Iron defic iency anemia 66596479 D50.9 on PO iron Hyperlipidemia 24000348 E78.5 on rosuvastat in Feeling irritable 244568 07 R45.4 on wellbutrin , he is aware of side effects, risks, benefitsca ll office if any change in mood or behaviorhe declines psychiatry referral and/or counseling referral today Normal weight 03552834 Z 68.23 recommend healthy, well balanced mealsfocus on lean meats, fresh vegetables , fresh fruits, whole grainsredu ce fast/proce ssed foods or eating out to no more than 1-2 times per weekaim to get 30 min of exercise most days of the week- walking is a great choice Slowing of urinary stream 18264268 R39.12 get appt with urology- has been referred he decided not to go as his symptoms improved Essential hypertension 04200360 I10 cardiology is working him up for [...] check Pain of ri ght shoulder joint 4609347581 5815934 M25.511 following ortho Postviral cough 10156146 4 B94.8 start medrol dose packcall office if no better after meds [id number] Rory desai MD [facility] [address] [facility] [place] [address] 07/17/2023 15:39:55 07/17/2023 16:20:20 Screening - NAD 335729041 Z13.9 C-scope: 11/2020: Dr Escobedo as per prior PCP note Get yearly flu shot, get tdap if not doneGet COVID 19 vaccine and its boostersGe t shingrix vaccine RTC in 3 months, do labs, ER if worse, he did verbalize his understand ing of the above Coronary arteriosclerosis 00303162 I25.10 S/p CABGOn ASANot on plavixSee cardiology Crohn's disease 93157894 K50.[address] Escobedo Hemorrhoids 98289760 K64 .9 Has taken anusol in the past Prediabetes 196966425 R7 3.03 Get labs Hyperlipidemia 65765413 E78.5 On rosuvastat in 20mg dailyGet labs Essential hypertension 91528290 I10 On amlodipine 5mg dailyGet labsSees Dr Elliott Chronic ob structive pulmonary disease 34841087 J44.9 On albuterolO n spirivaOn symbicortS ees Dr Stokes Vitamin D deficiency 347 39870 E55.9 Cigarette smoker 1244890 7 F17.210 LDCT 07/11/[address] Senavised to quit!US AAA at age 65 years Pain of le ft hip joint 4408995236 33346 M25.552 Serum barry min B12 below reference range 580475102 R79.89 Screening for malignant neoplasm of prostate 993414112 Z12.5 [id number] Pooja Bergeron NP [facility] [place] [address] [place] [address] 08/06/2023 14:15:40 08/06/2023 14:53:01 Pain of left hip joint 1998639108 49443 M25.552 Osteoarthr itis of left hip joint 9311772390 93937 M16.12 [id number] Piter Stokes MD [facility] Pulmonolo gy [address] [address] 09/02/2023 14:16:21 09/03/2023 08:22:04 Smoker 06753280 F17.218 F17.219 Z87.891 Severe chr onic obstructive pulmonary disease 980485484 J44.9 [id number] Rory desai MD [facility] Internal Med [facility] [address] [place] [address] 12/25/2023 15:32:13 12/25/2023 16:18:34 Screening - NAD 219894651 Z13.9 C-scope: 11/2020: Dr Escobedo as per prior PCP note Get yearly flu shot, get tdap if not doneGet COVID 19 vaccine and its boostersGe t shingrix vaccine RTC in 3 months, do labs, ER if worse, he did verbalize his understand ing of the above Coronary arteriosclerosis 90846296 I25.10 S/p CABGOn ASANot on plavixSee cardiology Crohn's disease 27282831 K50.[address] Escobedo Hemorrhoids 45822425 K64 .9 Has taken anusol in the past Prediabetes 444021484 R7 3.03 Get labs Hyperlipidemia 52190374 E78.5 On rosuvastat in 20mg dailyGet labs Essential hypertension 76231534 I10 On amlodipine 5mg dailyGet labsSees Dr Elliott Chronic ob structive pulmonary disease 27229923 J44.9 On albuterol, renewed 12/25/[address] symbic[address]S e[address] Dr Stokes Vitamin D deficiency 347 95407 E55.9 Cigarette smoker 9379402 7 F17.210 LDCT 07/11/[address] Senavised to quit!US AAA at age 65 years Pain of le ft hip joint 6385602311 08502 M25.552 Poojamateo Castillo [employer] 08/06/2023 Serum barry min B12 below reference range 689197184 R79.89 Screening for malignant neoplasm of prostate 560807960 Z12.5 [id number] Rory desai MD [facility] Internal Med [address] [facility] [place] [address] 04/29/2024 16:13:56 04/29/2024 17:07:47 Screening - NAD 526437089 Z13.9 C-scope: 11/2020: Dr Escobedo as per prior PCP note Get yearly flu shot, get tdap if not doneGet COVID 19 vaccine and its boostersGe t shingrix vaccine RTC in 3 months, do labs, ER if worse, he did verbalize his understand ing of the above Coronary arteriosclerosis 89784967 I25.10 S/p CABGOn ASAOn plavix 01/29/2024 cardiology On coreg 6.25mg bidDr Earl 08/22/2023 , f/u in one month, start coreg and losartan Crohn's disease 94013866 K50.[address] Escobedo Hemorrhoids 90870572 K64 .9 Has taken anusol in the past Prediabetes 475377253 R7 3.03 Get labs Hyperlipidemia 60219587 E78.5 Not on rosuvastat in 20mg dailyOn atorvastat in 40mg daily given by Dr [facility] labs Essential hypertension [id number] I10 Not on amlodipine 5mg daily, On amlodipine 10mg dailyOn losartan 50mg dailyGet labsSees Dr Elliott D/c from hospital for pneumonia in 03/2024, does well now Chronic ob structive pulmonary disease 66373989 J44.9 On albuterol, renewed 04/29/[address] Stokes Vitamin D deficiency 347 49077 E55.9 Cigarette smoker [id number] F17.210 LDCT 07/11/2022 LDCT 07/28/[address] Parra to quit!US AAA at age 65 years Pain of le ft hip joint [id number] 84914 M25.552 Poojaraj Castillo BANANA CARRIER 08/06/2023 Cobalamin deficiency 190 589158 E53.8 Health Concerns Section Related Observation LastModified by Organization Detai ls LastModified Time None Recorded Concern Status LastModified by Organization Details LastModified Time None Recorded Advance Directives Directive N: Payers Encounter Date Sequence Insurance Name Policy Number Policy Bridges Covered Member ID Bridges Member ID Guarantor Name 07/17/2023 1 [facility] ON OR AFTER 11/23/20 (MEDICAID REPLACEMENT - HMO) Cirilo Chicas [id number] Cirilo Chicas 08/06/2023 1 [facility] ON OR AFTER 11/23/20 (MEDICAID REPLACEMENT - HMO) Cirilo Chicas [id number] Cirilo hCicas 09/02/2023 1 [facility] ON OR AFTER 11/23/20 (MEDICAID REPLACEMENT - HMO) Cirilo Chicas [id number] Cirilo Chicas 12/25/2023 1 [facility] ON OR AFTER 11/23/20 (MEDICAID REPLACEMENT - HMO) Cirilo Chicas [id number] Cirilo Chicas 04/29/2024 1 [facility] ON OR AFTER 11/23/20 (MEDICAID REPLACEMENT - HMO) Cirilo Viraj [id number] Cirilo Chicas Notes Date Note Type Note Provider Name and Address Organization Details Recorded Time 07/17/2023 text/html OV 07/17/2023:He re to establish care Past Hx:CADCrohn's diseaseCOPDSmoker Here as he has been having L hip pain, no acute or remote injury, no N/T but also hurts to climb and to squat Rory Looney MD [address] [place] [address], [phone], [facility] [employer] 07/17/2023 18:03:19 09/02/2023 text/html Primary care/Ref erring provider: MARINA OzunaCPatient is here to go over his COPD management.Initial development of shortness of breath: 2018Duration of shortness of breath: 6 yearsCondition of shortness of breath: stableTiming of shortness of breath: noneFrequency: up to 6 times a day on a bad dayLimits activities: yesAggravating factors: walking, running, stressAlleviating factors: restModified [employer] [place] (mMRC) Dyspnea Scale - Grade 1Grade 0 I only get breathless with strenuous exercise .Grade 1 I get short of breath when hurrying on the level or walking up a slight hill .Grade 2 I walk slower than people of the same age on the level because of breathlessness or have to stop for breath when walking at my own pace on the level .Grade 3 I stop for breath after walking about 100 yards or after a few minutes on the level .Grade 4 I am too breathless to leave the house or I am breathless when dressing .Treatment history: Albuterol HFA as needed since 08/13Bevespi 9/4.8 mcg as needed since 2020 - 2021 Spiriva Respimat 2.5 mcg 2 puffs daily since 2021 Symbicort HFA 160/4.5 mcg 2 puffs BID since 2022Other symptoms:Productive cough: whiteWheezing: yesChest tightness: noOrthopnea: noFrequent [...] chance of dozing. Piter Stokes MD [address], [facility] [address], [place], [address], [employer] 09/02/2023 14:59:43 12/25/2023 text/html OV 07/17/2023:He re to establish care Past Hx:CADCrohn's diseaseCOPDSmoker Here as he has been having L hip pain, no acute or remote injury, no N/T but also hurts to climb and to squat OV 12/25/2023: Here for his routine apt, he is doing well today Rory Looney MD [address], [facility] [address], [place], [address], [employer] 12/27/2023 12:41:22 04/29/2024 text/html OV 07/17/2023:He re to establish care Past Hx:Kateohmateo's diseaseCOPDSmoker Here as he has been having [...] refill on the albuterol Rory Looney MD [address] [facility] [address], [place], [address], [facility] 05/14/2024 23:25:36
--- OUTSIDE RECORDS SUMMARY | 2024-07-06 08:45 | XMS_ITS | Clinical Summary ---
Author Organization [facility] Address [facility] [place] [address] Care Team Providers Care Market Superintendent Name Role Phone Sabine Looney MD Primary [...] (ADVAIR HFA) 230-21 MCG/ACT inhalerIndication s:COPD exacerbation ([facility]) Inhale 2 puffs into the lungs 2 (two) times daily. 8 g 1 4 Active albuterol sulfate HFA 108 (90 Base) MCG/ACT inhaler Inhale 2 puffs into the lungs every 6 (six) hours as needed for Wheezing. 8 g 2 4 Active Active Problems Problem Noted Date Diagnosed Date Dyspnea 02/14/2024 Inflammatory bowel disease 02/14/2024 COPD exacerbation ([facility]) 02/14/2024 Vitamin B12 deficiency (non anemic) 01/05/2024 Anemia 01/05/2024 High serum creatinine 12/31/2023 Osteoarthritis of left hip 08/06/2023 Coronary arteriosclerosis 06/11/2023 Full thickness rotator cuff tear 11/12/2022 Severe chronic obstructive p ulmonary disease ([facility]) 10/03/2022 Cigarette smoker 10/03/2022 Prediabetes 09/27/2022 Iron deficiency anemia 09/27/2022 Hyperlipidemia 09/27/2022 Hemorrhoids 09/27/2022 Essential hypertension 09/27/2022 Vitamin D deficiency 05/13/2022 Coronary artery disease invo lving [place] heart without angina pectoris 03/15/2021 Overview (02/14/2024): Added automatically from request for surgery [id number] Crohn's disease ([facility]) 03/03/2020 Bronchitis 03/03/2020 Crohn's colitis ([facility]) 08/29/2018 Family History Medical History Relation Comments Hypertension Father Hypertension Mother Relation Status Comments Father Mother Social History Tobacco Use Types Packs/Day Years Used Date Smoking Tobacco: Every Day Cigarettes Smokeless Tobacco: Never Tobacco Cessation:Ready to Q uit: Not Asked; Counseling Given: Not Answered Alcohol Use Standard Drinks/Week Comments No 0 (1 standard drink = 0.6 oz pur e alcohol) [facility] Utilities Answer Date Recorded In the past 12 months has e [employer], gas, oil, or water [employer] threatened to shut off services in your [...] any time in the past 12 m [facility], were you homeless or living in [...] 138 02/19/2024 11:36 AM CDT Temperature 37.1 C (98.8 F) 02/19/2024 11:36 AM CDT Respiratory Rate 25 02/19/2024 11:36 AM CDT [...] Vaccines (1 of 2) 10/28/2015 COVID-19 Vaccine ( - 2023-2 5 season) 2024 05/09/2022, 12/25/2020, 12/04/2020 Influenza Adult (#1) 2024 05/06/2022, 04/06/2021 Meningococcal B Vaccine Aged Out No l onger eligible based on patient's age to complete this topic Meningococcal Vaccine Aged Out No janey cain [...] 6:49 AM 08/31/2018 12:38 PM Care Teams Market Superintendent Relationship Specialty Start Date End Date Sabine Looney MD [address] [phone] PCP - General INTERNAL MEDICINE 02/16/24
--- OUTSIDE RECORDS SUMMARY | 2024-07-06 08:45 | XMS_ITS | Clinical Summary ---
Author Organization [facility] [place] Address [address] [place] [address] Care Team Providers Care Wildfire Prevention Specialist Name Role Phone Hemant Lopez MD Primary Care Provider [phone] Allergies No known active allergies Medications ergocalciferol [...] Diagnosed Date Coronary artery disease invo lving 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 Gender Identity Not on file Sexual Orientation Not on file Obstetrics History Last Filed Vital Signs Vital Sign Reading Time Taken Comments Blood Pressure 130/76 04/26/2021 10:02 AM WAREHOUSE PRICING AND INVENTORY CLERK Pulse 81 04/26/2021 10:02 AM WAREHOUSE PRICING AND INVENTORY CLERK Temperature 37.2 C (98.9 F) 03/25/2021 7:58 AM CDT Respiratory Rate 14 04/26/2021 10:02 AM WAREHOUSE PRICING AND INVENTORY CLERK Oxygen Saturation 97% 04/26/2021 10:02 AM WAREHOUSE PRICING AND INVENTORY CLERK Inhaled Oxygen Concentration - - Weight 61.7 kg (136 lb) 04/26/2021 10:02 AM WAREHOUSE PRICING AND INVENTORY CLERK Height 170.2 cm (5' 7 ) 04/26/2021 10:02 AM WAREHOUSE PRICING AND INVENTORY CLERK Body Mass Index 21.3 04/26/2021 10:02 AM WAREHOUSE PRICING AND INVENTORY CLERK Plan of Treatment Not on file Medical Devices Implanted Type Area Rug Layer Device Identifier Shelf Expiration Date Model / Serial / Lot [facility] 24-025-44 Titanium 1.8mm 8 Hole Sternal X Plate Bone Mini Sternotomy - [id number] Implanted:Qty: 3 on 03/20/2021 by Malathi Curry MD at [facility] N/A: Sternum [facility] 24-025-44 - 09 / / [facility] [id number] Drill-Free Maxdrive 2.3mm 13mm Self Retaining Lock Sternal Screw - [id number] Implanted:Qty: 20 on 03/20/2021 by Malathi Curry MD at [facility] N/A: Sternum [facility] 24-023-13 - 91 / / [facility] 24-023-15 Drill-Free Maxdrive 2.3mm 15mm Self Retain Sternal Screw Bone - [id number] Implanted:Qty: 4 on 03/20/2021 by Malathi Curry MD at [facility] N/A: Sternum [facility] 24-023-15 - 91 / / Insurance Advance Directives For more information, please contact: [phone] * Full Code (Latest Code Status on File) Date Activated Date Inactivated Comments 03/16/2021 10:12 AM 03/25/2021 5:30 PM Care Teams Wildfire Prevention Specialist Relationship Specialty Start Date End Date Hemant Lopez MD PCP - General 03/22/21
[2024-07-06 10:36] LABS: Influenza A QL RT-PCR Positive (Negative); Influenza B QL RT-PCR Negative (Negative); RSV RNA, RT-PCR Positive (Negative); SARS-CoV-2 RNA PCR Negative (Negative)
--- NOTE | 2024-07-06 10:41 | ED_ITS ---
HPI - SOB/Dyspnea General Chief Complaint: Shortness of Breath/Dyspnea Stated Complaint: sob, COPD, Cough Time Seen by Provider: 07/06/24 10:24 Source: patient Mode of arrival: ambulatory Limitations: no limitations History of Present Illness HPI Narrative: Patient is a 58-year-old male, past medical history of COPD, who presents the ED with report of cough/shortness of breath. Patient reports he has not felt well since yesterday. Reports cough, congestion, wheezing, fevers, body aches. Feels like he has exacerbation of his COPD. Reports he was diagnosed with RSV in May and had to be admitted for COPD exacerbation. He notes that he is currently out of his albuterol inhaler. He complains of bhargavi rib pain with forceful coughing only. Denies CP at rest. Denies known sick contacts. Related Data Home Medications ?Medication ?Instructions ?Recorded ?Confirmed ?Last Taken ?Type atorvastatin 40 mg tablet 40 mg PO DAILY 06/18/24 06/18/24 Unknown History Allergies Allergy/AdvReac Type Severity Reaction Status Date / Time No Known Allergies Allergy Verified 05/30/24 05:56 Review of Systems Review of Systems: All systems reviewed & are unremarkable except as noted in HPI. All systems reviewed & are unremarkable except as noted in HPI and below PMFSH Social History Social History Smoking packs per day: 0.25 Smoking cigarettes per day: 5.0 Years smoked: 45 Smoking pack-years: 11.25 Smoking status: Current every day smoker Tobacco type: cigarettes Second hand tobacco smoke exposure: No Alcohol intake: current Drinks per week: 30 Substance use type: marijuana and crack/cocaine Other substance usage details: uses marijuana and cocaine on weekends Do You Feel Safe in your Home?: Yes Lack of Transportation: No Lack of Food: Never True Current Housing: I Have Housing Concerned About Future Housing: No Difficulty Paying Gas/Electric Bills: No Difficulty Paying for Meds: No Currently Unemployed: No Education: High School Diploma/GED Difficulty w/ Childcare or Family Care: No Spiritual care concerns: No Exam Narrative: GENERAL: Well appearing, well-nourished, non-toxic, in no acute distress. HEAD: Normocephalic, atraumatic. RESPIRATORY: Airway patent, respirations nonlabored. Clear to auscultation bilaterally, no rales, rhonchi, wheezing. No significant focal lung sounds. CARDIOVASCULAR: Borderline tachycardic with regular rhythm without murmurs, rubs, or gallops. ABDOMINAL: Soft, nontender, nondistended. Normoactive BS. MUSCULOSKELETAL: Moves all extremities. No gross deformities. No peripheral edema. SKIN: Warm, dry, normal color. NEURO: A&O X3. Speech clear. Cranial nerves II-XII grossly intact. Steady gait. No ataxic movements. PSYCHIATRIC: Appropriate mood and affect. Normal interaction. Course Vital Signs Vital signs: Vital Signs Temperature 100.7 F H 07/06/24 08:20 Pulse Rate 100 07/06/24 08:20 Respiratory Rate 18 07/06/24 08:20 Blood Pressure 142/86 H 07/06/24 08:20 Pulse Oximetry 96 07/06/24 08:20 Oxygen Delivery Room Air 07/06/24 08:20 Temperature 100.7 F H 07/06/24 08:28 Pulse Rate 108 H 07/06/24 11:45 Respiratory Rate 18 07/06/24 11:45 Blood Pressure 155/95 H 07/06/24 08:28 Pulse Oximetry 100 07/06/24 08:28 Oxygen Delivery Room Air 07/06/24 10:33 MDM - SOB/Dyspnea MDM Narrative Medical decision making narrative: Patient reported having cough, congestion, body aches since yesterday. History of COPD. Patient was noted to be febrile upon arrival. Given Tylenol. Testing for influenza A is positive. Consistent with clinical picture. RSV testing was also positive, however patient was diagnosed with this in middle of May. Likely still showing positive from previous. CXR is clear. Patient given continuous neb in the ED. Ambulated throughout the ED w/o hypoxia. Feel he is safe for d/c home at this time. Will given refill of albuterol. Will also rx short course of prednisone for copd flare, Grant Martínez. Discussed Tamiflu with patient as he is within the window of symptom onset. Given his history of underlying COPD, feel this would be reasonable. Patient is in agreement with starting Tamiflu. Sent to pharmacy. Recommended close follow-up with PCP for further evaluation. Given strict return precautions. Patient in agreement with plan and feels comfortable discharge home. Discharged in stable condition. Vital signs are stable at time of D/C. Medical Records Attestation: I reviewed the patient's medical records. Lab Data Attestation: I reviewed the patient's lab results. Labs: Lab Results 07/06/24 Range/Units 09:53 Influenza A (RT-PCR) Positive A (Negative) Influenza B (RT-PCR) Negative (Negative) RSV (RT-PCR) Positive A (Negative) SARS-CoV-2 RNA (RT-PCR) Negative (Negative) Imaging Data Attestation: I personally reviewed and interpreted this imaging study as follows: Radiologist's impression: ITS Impressions Chest X-Ray 07/06/24 10:33 Impression: No acute abnormality. Chronic findings, as above. Discharge Plan Discharge Clinical Impression: Influenza A Patient Disposition: Home, Self-Care Condition: Stable Instructions: Antibiotic Form, Influenza (ED), Upper Respiratory Infection (ED), Cold Symptoms (ED) Additional Instructions: You were diagnosed with Influenza A today. Isolate at home as you are c ontagious. Take Tamiflu and prednisone as prescribed over the next several days. Continue your albuterol inhaler as needed. I have sent a refill of this to your pharmacy. Stay well-hydrated at home. Recommend electrolyte rich fluids, Gatorade, Pedialyte, body armor. Zofran as needed for nausea. Tessalon Perles as needed for cough. Tylenol and Ibuprofen for discomfort and/or fevers. Recommend sddc-sll-svzqwmm cough and cold medicines for symptom relief, Delsym, Mucinex, DayQuil, NyQuil, Sudafed, Robitussin, TheraFlu. Follow with primary care doctor upon resolution of symptoms. Return to the ED if you experience chest pain, difficulty breathing, unable to keep down food or drink, severe pain, or any other symptoms of concern. Patient Language: [place] Citizen Prescriptions: New benzonatate 200 mg capsule 200 mg PO TID PRN (Reason: cough) Qty: 15 0RF oseltamivir [Tamiflu] 75 mg capsule 75 mg PO Q12H 5 Days Qty: 10 0RF prednisone 50 mg tablet 50 mg PO DAILY Qty: 5 0RF ondansetron 4 mg tablet,disintegrating 4 mg PO Q8H PRN (Reason: nausea and vomiting) Qty: 15 0RF albuterol sulfate 90 mcg/actuation HFA aerosol inhaler 2 puff inhalation QID PRN (Reason: shortness of breath or wheezing) Qty: 6.7 0RF No Action atorvastatin 40 mg tablet 40 mg PO DAILY prednisone 10 mg tablet 40 mg PO DAILY 5 Days Qty: 20 0RF Rx Instructions: see taper instructions losartan 50 mg tablet 50 mg PO .daily Qty: 30 0RF carvedilol 6.25 mg tablet 6.25 mg PO Q12H Qty: 30 0RF amlodipine 10 mg tablet 10 mg PO DAILY 30 Days Qty: 0 0RF albuterol sulfate 90 mcg/actuation HFA aerosol inhaler 1 puff INHALATION Q6-8H PRN (Reason: shortness of breath or wheezing) Qty: 1 2RF budesonide-formoterol [Symbicort] 160-4.5 mcg/actuation HFA aerosol inhaler 1 inh INHALATION Q12H PRN (Reason: bronchodilation) Qty: 1 2RF Spiriva Respimat 2.5 mcg/actuation mist 2 inh INHALATION Q24H Qty: 1 0RF benzonatate 200 mg capsule 200 mg PO TID PRN (Reason: cough) Qty: 21 0RF Follow-up/Referrals: UNKNOWN,DOCTOR [Primary Care Provider] - Time of Disposition: 12:17
[2024-07-06 10:55] VITALS: PULSE 113; RESP 18
[2024-07-06] MEDS: IPRATROPIUM BR 0.02% INH SOLN 0.5 MG/2.5 ML VIAL 1.5 MG INHALATION (10:55)
[2024-07-06] MEDS: LEVALBUTEROL NEB 1.25 MG/3 ML 2.5 MG INHALATION (10:55)
--- NOTE | 2024-07-06 10:57 | ECG_ITS ---
Test Date: 2024-07-06 11:31:03 Measurements Intervals [place] Rate: 111 P: 74 IA: 104 QRS: 71 QRSD: 81 T: 69 QT: 334 QTc: 455 Interpretive Statements SINUS TACHYCARDIA WITH SHORT IA INTERVAL POSSIBLE LEFT ATRIAL ENLARGEMENT CANNOT R/O SEPTAL INFARCT, AGE INDETERMINATE BORDERLINE ST ABNORMALITY- INFERIOR LEADS BASELINE ARTIFACT- I, AVR ABNORMAL ECG Compared to ECG 06/18/2024 01:55:54 NO SIGNIFICANT CHANGE Electronically Signed On 07-06-2024 11:53:19 FARM CREW LEADER by Gulshan Irby D.O.
--- OUTSIDE RECORDS SUMMARY | 2024-07-06 11:39 | XMS_ITS | Encounter Summary ---
Author Organization [facility] Address [address] [place] [address] Care Team Providers Care Corrections Lieutenant Name Role Phone Hemant Lopez MD Primary Care Provider [phone] Sabine Looney MD Primary Care Provider Encounter Details Date Type Department Care Team (Late st Contact Info) Description 09/01/2018 Hospital Follow-up Call [facility] Telemetry Unit [address] [place] [address] Brina Dick Social History Tobacco Use Types [...] documented as of this encounter Care Teams Corrections Lieutenant Relationship Specialty Start Date End Date Hemant Lopez MD PCP - General 04/09/16 02/15/24 Sabine Looney MD [address] [phone] PCP - General INTERNAL MEDICINE 02/16/24 documented as of this encounter
--- OUTSIDE RECORDS SUMMARY | 2024-07-06 11:39 | XMS_ITS | Clinical Summary ---
Author Organization [facility] [place] Address [address] [place] [address] Care Team Providers Care Dental Chairside Assistant Name Role Phone Hemant Lopez MD Primary Care Provider [phone]- [phone] Allergies No known active allergies Medications ergocalciferol [...] Diagnosed Date Coronary artery disease invo lving [place] heart without angina pectoris 03/15/2021 Overview (03/19/2021): Added automatically from request for surgery [id number] Medical History Medical History Date Comments Hypertension Hyperlipidemia COPD (chronic obstructive pulmonary disease) (HC C) Crohn's colitis (CMS/HCC) (HCC) Tobacco abuse Social History Tobacco Use Types Packs/Day Years Used Date Smoking Tobacco: Every Day Sex and Gender Information Value Date Recorded Sex Assigned at Not on file 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 Gender Identity Not on file Sexual Orientation Not on file Obstetrics History Last Filed Vital Signs Vital Sign Reading Time Taken Comments Blood Pressure 130/76 04/26/2021 10:02 AM DENTISTRY TEACHER Pulse 81 04/26/2021 10:02 AM DENTISTRY TEACHER Temperature 37.2 C (98.9 F) 03/25/2021 7:58 AM CDT Respiratory Rate 14 04/26/2021 10:02 AM DENTISTRY TEACHER Oxygen Saturation 97% 04/26/2021 10:02 AM DENTISTRY TEACHER Inhaled Oxygen Concentration - - Weight 61.7 kg (136 lb) 04/26/2021 10:02 AM DENTISTRY TEACHER Height 170.2 cm (5' 7 ) 04/26/2021 10:02 AM DENTISTRY TEACHER Body Mass Index 21.3 04/26/2021 10:02 AM DENTISTRY TEACHER Plan of Treatment Not on file Medical Devices Implanted Type Area Mortician Investigator Device Identifier Shelf Expiration Date Model / Serial / Lot [facility] 24-025-44 Titanium 1.8mm 8 Hole Sternal X Plate Bone Mini Sternotomy - [id number] Implanted:Qty: 3 on 03/20/2021 by Malathi Curry MD at [facility] N/A: Sternum [facility] 24-025-44 - 09 / / [facility] 24-043-32-91 Drill-Free Maxdrive 2.3mm 13mm Self Retaining Lock Sternal Screw - [id number] Implanted:Qty: 20 on 03/20/2021 by Malathi Curry MD at [facility] N/A: Sternum [facility] 24-023-13 - 91 / / [facility] 24-023-15 Drill-Free Maxdrive 2.3mm 15mm Self Retain Sternal Screw Bone - [id number] Implanted:Qty: 4 on 03/20/2021 by Malathi Curry MD at [facility] N/A: Sternum [facility] 24-023-15 - 91 / / Insurance Advance Directives For more information, please contact: [phone] * Full Code (Latest Code Status on File) Date Activated Date Inactivated Comments 03/16/2021 10:12 AM 03/25/2021 5:30 PM Care Teams Dental Chairside Assistant Relationship Specialty Start Date End Date Hemant Lopez MD PCP - General 03/22/21
--- OUTSIDE RECORDS SUMMARY | 2024-07-06 11:39 | XMS_ITS | Clinical Summary ---
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
--- OUTSIDE RECORDS SUMMARY | 2024-07-06 11:39 | XMS_ITS | Clinical Summary ---
Author Organization [facility] Address [facility] [place] [address] Care Team Providers Care Insulating Machine Operator Name Role Phone Sabine Looney MD Primary [...] (ADVAIR HFA) 230-21 MCG/ACT inhalerIndication s:COPD exacerbation ([facility]) Inhale 2 puffs into the lungs 2 (two) times daily. 8 g 1 4 Active albuterol sulfate HFA 108 (90 Base) MCG/ACT inhaler Inhale 2 puffs into the lungs every 6 (six) hours as needed for Wheezing. 8 g 2 4 Active Active Problems Problem Noted Date Diagnosed Date Dyspnea 02/14/2024 Inflammatory bowel disease 02/14/2024 COPD exacerbation ([facility]) 02/14/2024 Vitamin B12 deficiency (non anemic) 01/05/2024 Anemia 01/05/2024 High serum creatinine 12/31/2023 Osteoarthritis of left hip 08/06/2023 Coronary arteriosclerosis 06/11/2023 Full thickness rotator cuff tear 11/12/2022 Severe chronic obstructive p ulmonary disease ([facility]) 10/03/2022 Cigarette smoker 10/03/2022 Prediabetes 09/27/2022 Iron deficiency anemia 09/27/2022 Hyperlipidemia 09/27/2022 Hemorrhoids 09/27/2022 Essential hypertension 09/27/2022 Vitamin D deficiency 05/13/2022 Coronary artery disease invo lving tetlin heart without angina pectoris 03/15/2021 Overview (02/14/2024): Added automatically from request for surgery [id number] Crohn's disease ([facility]) 03/03/2020 Bronchitis 03/03/2020 Crohn's colitis ([facility]) 08/29/2018 Family History Medical History Relation Comments Hypertension Father Hypertension Mother Relation Status Comments Father Mother Social History Tobacco Use Types Packs/Day Years Used Date Smoking Tobacco: Every Day Cigarettes Smokeless Tobacco: Never Tobacco Cessation:Ready to Q uit: Not Asked; Counseling Given: Not Answered Alcohol Use Standard Drinks/Week Comments No 0 (1 standard drink = 0.6 oz pur e alcohol) [facility] Utilities Answer Date Recorded In the past 12 months has e [employer], gas, oil, or water [employer] threatened to shut off services in your [...] time in the past 12 m [facility], were you homeless or living in a correction (including now)? No 02/14/2024 Sex and Gender [...] 6:49 AM 08/31/2018 12:38 PM Care Teams Insulating Machine Operator Relationship Specialty Start Date End Date Sabine Looney MD [address] [id number] PCP - General INTERNAL MEDICINE 02/16/24
--- OUTSIDE RECORDS SUMMARY | 2024-07-06 11:39 | XMS_ITS | CONTINUITY OF CARE DOCUMENT ---
Author Name kiki ishclary Address Unknown Organization [facility] Address [address] 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 Hyperlipidemia active Bhavna Robin NP CAD s/p [...] In-person encounter Office Visit Wilbur Elliott MD [facility] - In-person encounter Office Visit Wilbur Elliott MD [facility] - In-person encounter Office Visit Wilbur Elliott MD [facility] - In-person encounter Office Visit Wilbur Elliott MD [facility] - In-person encounter Office Visit Wilbur Elliott MD [facility] HyperlipidemiaCardiomyopa thy, EF 45% - In-person encounter Office Visit Wilbur Elliott MD [facility] CAD s/p CABG - In-person encounter Office Visit Wilbur Elliott MD [facility] Cardiology examinationChest painHTN essentialShortness of breathTobacco [...] blood pressure, diastolic 94 mm[Hg] Ca therine Trenton blood pressure, systolic 135 mm[Hg] Cat herine Trenton oxygen saturation, oximetry 97 % Narda Trenton respiratory rate E&M 16 /min Catheri ne Rolando pulse rate 94 /min Narda Trenton weight E&M 146 [lb_av] Narda Trenton blood pressure, cuff size regular Ca therine Trenton height E&M 67 [in_i] Narda Trenton Body Mass Index (Ratio) 22.71 kg/m2 Riley Elliott MD blood pressure, diastolic 80 mm[Hg] Ca therine Trenton blood pressure, systolic 120 mm[Hg] Cat herine Rolando oxygen saturation, oximetry 94 % Narda Trenton pulse rate 48 /min Narda Trenton respiratory rate E&M 14 /min Catheri ne Trenton weight E&M 145 [lb_av] Narda Rolando blood pressure, cuff size regular Ca therine Trenton height E&M 67 [in_i] Narda Trenton Body Mass Index (Ratio) 23.02 kg/m2 Riley [...] TABLET BY MOUTH EVERY DAY Anna Mariejuana ePlaezglkelby UREÑAP iron unspecified unspecified active Narda Rolando loperamide 2 mg tablet active Take tablet by mouth as directed Narda Trenton Humira Pen 40 mg/0.8 mL pen injector kit active Inject pen injector once a month Narda Trenton ergotamine tartrate unspecified unspecified active Narda Trenton hydrocortisone acetate 1% cream active Narda Rolando [...] go to ER - Anna Marie Pelaezglia ROADABILITY MACHINE OPERATOR Bevespi Aerosphere 9-4.8 mcg HFA aerosol inhaler [...] as a smoker 20+ Anna Marie Ventimiglia [facility] cigarette use yes Anna Marie Mariami glia [facility] smoking status Current every da y smoker Anna Marie Mariamiglia [facility] smoking status Current every da y smoker [...] years as a smoker 20+ Bhavna Negronll PROJECTION WELDING MACHINE OPERATOR cigarette use yes Bhavna Negronzane [facility] smoking status Current every da y smoker Bhavna Robin PROJECTION WELDING MACHINE OPERATOR social history reviewed E&M revi [...] Payer name Policy type / Coverage type [facility] ID [place] [employer] (2) Medicaid [id number] ADVANCE DIRECTIVES Name Date DISCUSSED - NO DECISION MADE TREATMENT PLAN Date Name Performer [id number],C,n eed to know what medicines he is on. need to check labs as well Wilbur Elliott MD [id number],C, D aurora gilmore. Continue on his present meds including a statin but currently main issue is getting BP down. Wilbur Elliott MD [id number],C,H Is repeat BP was 176 and I [...] mouth twice a day Wilbur Elliott MD [id number],S, H is updated medication list for this problem includes: Rosuvastatin 20 Mg Tablet (Rosuvastatin) ..... Take by mouth once a day Cholestyramine (with Sugar) 4 Gram Powder (Cholestyramine (with sugar)) Wilbur Elliott MD [id number],S,W ill repeat an echo to see where his heart function is and also renal artery duplex to check his kidneys Wilbur Elliott MD [id number],S, Wilbur Elliott MD [id number],S,I have recommended to him to keep track of his BP at home BP today: 175/114 P rior BP: 135/94 (07/05/2021) His updated medication list for this problem includes: Amlodipine 10 Mg Tablet (Amlodipine) ..... Take 1 tablet by mouth once a day Carvedilol 6.25 Mg Tablet (Carvedilol) ..... Take 1 tablet by mouth twice a day Wilbur Elliott MD [id number],S,W ill repeat an echo to see where his heart function is and also renal artery duplex to check his kidneys Wilbur Elliott MD [id number],S, E F 45% on cath 02/2021. Continues on coreg. Bhavna Robin NP [id number],B, R esolved since CABG save for some tingling and numbness over his sternal incision site. Bhavna Robin NP [id number],S, H is updated medication list for this problem includes: Amlodipine 10 Mg Tablet (Amlodipine) ..... Take 1 tablet by mouth once a day Carvedilol 6.25 Mg Tablet (Carvedilol) ..... Take 1 tablet by mouth twice a day BP today: 135/94 P rior BP: 120/80 (04/06/2021) Bhavna Robin NP [id number],S, H e underwent bypass and has done quite well. He deferred on cardiac rehab because of his work schedule. He exerts himself regularlt at work without trouble. Bhavna Robin NP [id number],S, P t still smoking. Advised to stop smoking again. 1PPW. Bhavna Negronzane ALFARO [id number],S, L ast LDL 31. His updated medication list for this problem includes: Rosuvastatin 20 Mg Tablet (Rosuvastatin) ..... Take by mouth once a day Cholestyramine (with Sugar) 4 Gram Powder (Cholestyramine (with sugar)) Bhavna Negronzane ALFARO [id number],S,H e underwent bypass and has done quite well but needs cardiac rehab. Wilbur Elliott MD [id number],S,P t still smoking. Advised to stop smoking again. Wilbur Elliott MD [id number],S, H is updated medication list for this problem includes: Amlodipine 10 Mg Tablet (Amlodipine) ..... Take 1 tablet by mouth once a day Carvedilol 6.25 Mg Tablet (Carvedilol) ..... Take 1 tablet by mouth twice a day BP today: 120/80 P rior BP: 179/109 (03/08/2021) Wilbur Elliott MD [id number],W, C hest pressure occuring with exertion with some SOB and diaphoresis. His symptoms are fairly typical for ischemia. I think that because his chest pain is occurring with exertion and his EKG is somewhat abnormal, we will proceed straight to a cardiac cath. Wilbur Elliott MD [id number],S, T he Patient was reencouraged to stop smoking. Wilbur Elliott MD Cardiology: P t still smoking. Advised to stop smoking again. 1-2 cigs.day Anna Marie Ventimiglia ROADABILITY MACHINE OPERATOR Cardiology: H as been out of losartan [...] mouth twice a day Anna Marie Díaz [facility] Cardiology: Xochitl hill. Anna Mariejuana Díaz [facility] Cardiology: Tay tracey well. Notes infrequent chest pain Anna Marie Díaz [facility] Cardiology Anna Mariejuana lama [facility] Cardiology:need to k now what medicines he [...]
--- OUTSIDE RECORDS SUMMARY | 2024-07-06 11:39 | XMS_ITS | Referral Summary ---
Author Organization [facility] [place] Address [address] [place] [address] Care Team Providers Care Manufacturing Team Leader Name Role Phone Hemant Lopez MD Primary Care Provider [phone] Allergies No known active allergies Medications ergocalciferol [...] Diagnosed Date Coronary artery disease invo lving [place] heart without angina pectoris 03/15/2021 Overview (03/19/2021): Added automatically from request for surgery [id number] Social History Tobacco Use Types Packs/Day Years Used Date Smoking Tobacco: Every Day Sex and Gender Information Value Date Recorded Sex Assigned at Not on file Legal Sex 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 Gender Identity Not on file Sexual Orientation Not on file Last Filed Vital Signs Vital Sign Reading Time Taken Comments Blood Pressure 130/76 04/26/2021 10:02 AM VENDING SUPERVISOR Pulse 81 04/26/2021 10:02 AM VENDING SUPERVISOR Temperature 37.2 C (98.9 F) 03/25/2021 7:58 AM CDT Respiratory Rate 14 04/26/2021 10:02 AM VENDING SUPERVISOR Oxygen Saturation 97% 04/26/2021 10:02 AM VENDING SUPERVISOR Inhaled Oxygen Concentration - - Weight 61.7 kg (136 lb) 04/26/2021 10:02 AM VENDING SUPERVISOR Height 170.2 cm (5' 7 ) 04/26/2021 10:02 AM VENDING SUPERVISOR Body Mass Index 21.3 04/26/2021 10:02 AM VENDING SUPERVISOR Plan of Treatment Not on file Medical Devices Implanted Type Area Fermentation Engineer Device Identifier Shelf Expiration Date Model / Serial / Lot [facility] 24-025-44 Titanium 1.8mm 8 Hole Sternal X Plate Bone Mini Sternotomy - [id number] Implanted:Qty: 3 on 03/20/2021 by Malathi Curry MD at [facility] N/A: Sternum [facility] 24-025-44 - 09 / / [facility] [id number] Drill-Free Maxdrive 2.3mm 13mm Self Retaining Lock Sternal Screw - [id number] Implanted:Qty: 20 on 03/20/2021 by Malathi Curry MD at [facility] N/A: Sternum [facility] 24-023-13 - 91 / / [facility] [id number] Drill-Free Maxdrive 2.3mm 15mm Self Retain Sternal Screw Bone - [id number] Implanted:Qty: 4 on 03/20/2021 by Malathi Curry MD at [facility] N/A: Sternum [facility] 24-023-15 - 91 / / [place] [address] [place] [address] Advance Directives For more information, please contact: [phone] * Full Code (Latest Code Status on File) Date Activated Date Inactivated Comments 03/16/2021 10:12 AM 03/25/2021 5:30 PM Care Teams Manufacturing Team Leader Relationship Specialty Start Date End Date Hemant Lopez MD PCP - General 03/22/21
[2024-07-06 11:45] VITALS: PULSE 108; RESP 18
== END 2024-07-06 12:27 | disposition home or self-care (01) ==
PROVIDERS: Emergency Medicine; Emergency Provider Physician Assistant
DX: J10.1 Influenza due to other identified influenza virus with other respiratory manifestations (principal); Z20.822 Contact with and (suspected) exposure to COVID-19; F17.210 Nicotine dependence, cigarettes, uncomplicated
CPT/HCPCS: 71046; 87637; 93005; 94640; 99283; A9270

== ENCOUNTER 2025-01-17 09:32 | Emergency (ER) | payer OTHER, SELFPAY ==
--- OUTSIDE RECORDS SUMMARY | 2024-08-06 13:00 | XMS_ITS ---
Author Organization [facility] Address [address] [facility] [address] [facility] [address] [place] [address] Care Team Providers Care Drying Equipment Operator Name Role Phone Viet Tonny Unavailable [phone] Encounters Encounter Location Date Provider Diagnosis [place] [facility] [address] [facility] [address] [place] [address] 08/06/2024 Tonny Llanos Plan Of Treatment No Information Progress Notes * JEANIE CHICASDOB: 6 (59 yo M)Acc No.[id number]:08/06/2024 Progress Notes Patient: JEANIE ATKINS Provider: Praveena TERAN MD, Tay.Patricia.C.P, F.A.S.N. :1965 A ge:58 Y S ex:Male Date:08/06/2024 Address:[address] [place] [address] Subjective: * Chief Complaints: * * Medical History: Objective: * Vitals: Assessment: Plan: * Treatment: * Billing Information: * Visit Code: * Procedure Codes: * Electronic signature of Nadine Llanos MD on 01/17/2025 at 10:12 AM CDT Sign off status: Pending * Provider: Praveena TERAN MD, Tay.Patricia.C.P, F.A.S.N. Date: 0 08/06/2024 Generated for Printing/Faxing/eTransmitting on: 0 01/17/2025 10:12 AM CDT
--- OUTSIDE RECORDS SUMMARY | 2024-08-11 09:00 | XMS_ITS ---
Author Organization [facility] Address [address] [place] [address] Care Team Providers Care Postmaster Relief Name Role Phone Elder Llanosjit Unavailable [phone] Problems Problem Type SNOMED Code ICD Code Onset Dates Problem Status W/U Status Risk Notes Problem Chronic kidney disease stage 3 (disorder) (368017761) Chronic kidney disease, stage 3 unspecified (N18.30) Active confirmed Problem Diabetic renal disease (837740469) Type 2 diabetes mellitus with diabetic chronic kidney disease (E11.22) Active confirmed Problem Essential hypertension (71853467) Essential hypertension (I10) Active confirmed Problem Coronary artery disease (62314238) CAD (coronary artery disease) (I25.10) Active confirmed Problem Hyperlipidemia (15774503) Hyperlipidemia, unspecified (E78.5) Active confirmed Problem Proteinuria (08712387) Proteinuria, unspecified (R80.9) Active confirmed Problem Crohn's disease (03840582) Crohn's disease, unspecified, without complications (K50.90) Active confirmed Encounters Encounter Location Date Provider Diagnosis [place] [facility] [address] [facility] [address] [place] [address] 08/11/2024 Tonny Llanos Chronic kidney disease, stage 3 unspecified N18.30 ; Type 2 diabetes mellitus with diabetic chronic kidney disease E11.22 ; Essential hypertension I10 ; CAD (coronary artery disease) I25.10 ; Hyperlipidemia, unspecified E78.5 ; Proteinuria, unspecified R80.9 and Crohn's disease, unspecified, without complications K50.90 Assessments Encounter Date Diagnosis (ICD Code) Assessment Notes Treatment Notes Treatment Clinical Notes Section Notes 08/11/2024 Chronic kidney disease, stage 3 unspecified (ICD-10 - N18.30) 08/11/2024 Type 2 diabetes mellitus with diabetic chronic kidney disease (ICD-10 - E11.22) 08/11/2024 Essential hypertension (ICD-10 - I10) 08/11/2024 CAD (coronary artery disease) (ICD-10 - I25.10) 08/11/2024 Hyperlipidemia, unspecified (ICD-10 - E78.5) 08/11/2024 Proteinuria, unspecified (ICD-10 - R80.9) 08/11/2024 Crohn's disease, unspecified, without complications (ICD-10 - K50.90) Plan Of Treatment No Information Progress Notes * JEANIE CHICASDOB: 6 (59 yo M)Acc No.[id number]:08/11/2024 Progress Notes Patient: JEANIE ATKINS Provider: Praveena TERAN MD, F.Patricia.C.P, F.A.S.N. :1965 A ge:58 Y S ex:Male Date:08/11/2024 Address:[address] [place] [address] Subjective: * Chief Complaints: * * Medical History: Objective: * Vitals: Assessment: * Assessment: 1. C hronic kidney disease, stage 3 unspecified - N18.30 (Primary) 2 . T ype 2 diabetes mellitus with diabetic chronic kidney disease - E11.22 3 . E ssential hypertension - I10 4 . C AD (coronary artery disease) - I25.10 5. H yperlipidemia, unspecified - E78.5 6 . P roteinuria, unspecified - R80.9 7 . C rohn's disease, unspecified, without complications - K50.90 ? Plan: * Treatment: * Billing Information: * Visit Code: 99468 Office Visit, New Pt., Level 5. * Procedure Codes: * Electronic signature of Nadine Llanos MD on 01/17/2025 at 11:06 AM CDT Sign off status: Pending * Provider: Praveena TERAN MD, F.Patricia.C.P, F.A.S.N. Date: 08/11/2024 Generated for Printing/Faxing/eTransmitting on: 0 01/17/2025 11:06 AM CDT
--- OUTSIDE RECORDS SUMMARY | 2024-09-01 13:15 | XMS_ITS ---
Author Organization [facility] Address [address] [place] [address] Care Team Providers Care Card Services Specialist Name Role Phone Viet Tonny Unavailable [phone] Encounters Encounter Location Date Provider Diagnosis [place] [facility] [address] [facility] [address] [place] [address] 09/01/2024 Tonny Llanos Plan Of Treatment No Information Progress Notes * JEANIE CHICASDOB: 6 (59 yo M)Acc No.[id number]:09/01/2024 Progress Notes Patient: JEANIE ATKINS Provider: Praveena TERAN MD, Tay.Patricia.C.P, F.A.S.N. :1965 A ge:58 Y S ex:Male Date:09/01/2024 Address:[address] [place] [address] Subjective: * Chief Complaints: * * Medical History: Objective: * Vitals: Assessment: Plan: * Treatment: * Billing Information: * Visit Code: * Procedure Codes: * Electronic signature of Nadine Llanos MD on 01/17/2025 at 10:12 AM CDT Sign off status: Pending * Provider: Praveena TERAN MD, Tay.Patricia.C.P, F.A.S.N. Date: 0 09/01/2024 Generated for Printing/Faxing/eTransmitting on: 01/17/2025 10:12 AM CDT
[2025-01-17] VITALS (20 sets, daily range): BP systolic 146–164; BP diastolic 92–104; PULSE 77–102; RESP 16–24; TEMP 36.9; O2SAT 97–100
--- NOTE | ~2025-01-17 | XR_ITS ---
EXAMINATION: XR chest 2V 01/17/2025 10:44 INDICATION: Cough. Chest pressure TECHNIQUE:Frontal and lateral images of the chest COMPARISON: 07/06/2024 FINDINGS: The lungs are clear. The cardiomediastinal silhouette is within normal limits. There are no pleural effusions. There is no pneumothorax suspected. Stable calcified granuloma in the right midlung. Median sternotomy wires are present. IMPRESSION: 1: NO ACUTE CARDIOPULMONARY DISEASE. Reviewed, dictated and finalized at location Q.
--- OUTSIDE RECORDS SUMMARY | 2025-01-17 10:11 | XMS_ITS | Clinical Summary ---
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 Gender Identity Not on file Sexual Orientation Not on file Plan of Treatment Health Maintenance Due Date Last Done Comments Hepatitis C Virus (HCV) Screening 1965 TdaP Immunization 1965 Hepatitis B Immunization (1 of 3 - 19+ 3-dose series) 1984 Cologuard 2010 Colonoscopy 2010 Colorectal Cancer Screening 2010 Immunochemical Fecal Occult Blood 2010 Pneumococcal Immunization (5 0+ years) (1 of 1 - PCV) 10/28/2015 Zoster Immunization (1 of 2) 10/28/2015 SARS-COV-2 Immunization ( - 2023- season) 2024 Influenza Immunization (#1) 2025 Respiratory Syncytial Virus (RSV) Immunization (Adult) (1 - 1-dose 75+ series) 2040 Human Papillomavirus (HPV) Immunization Aged Out No longer eligible b ased on patient's age to complete this topic Meningococcal Immunization (ACWY) Aged Out No longer eligible based on patient's age to complete this topic Rotavirus Immunization Aged Out No lo nger eligible based on patient's age to complete this topic
--- OUTSIDE RECORDS SUMMARY | 2025-01-17 10:11 | XMS_ITS | Patient Health Record ---
Author Organization [facility] Address [address] [place] [address] Care Team Providers Care Catering Manager Name Role Phone VietNoeTonny Unavailable [phone] Reason For Referral No Information Problems Problem Type SNOMED Code ICD Code Onset Dates Problem Status W/U Status Risk Notes Problem Diabetic renal disease (346736157) Type 2 diabetes mellitus with diabetic chronic kidney disease (E11.22) Active confirmed Problem Hyperlipidemia (17335188) Hyperlipidemia, unspecified (E78.5) Active confirmed Problem Crohn's disease (28770941) Crohn's disease, unspecified, without complications (K50.90) Active confirmed Problem Proteinuria (76304431) Proteinuria, unspecified (R80.9) Active confirmed Problem Essential hypertension (88778375) Essential hypertension (I10) Active confirmed Problem Chronic kidney disease stage 3 (disorder) (376015313) Chronic kidney disease, stage 3 unspecified (N18.30) Active confirmed Problem Coronary artery disease (47584909) CAD (coronary artery disease) (I25.10) Active confirmed Encounters Encounter Location Date Provider Diagnosis [place] [facility] [address] [facility] [address] [place] [address] 08/11/2024 Tonny Llanos Chronic kidney disease, stage [...]
--- OUTSIDE RECORDS SUMMARY | 2025-01-17 10:11 | XMS_ITS | Clinical Summary ---
Author Organization [facility] Address [address] [place] [address] Care Team Providers Care Supervisor Shed Workers Name Role Phone Sabine Looney MD Primary [...] needed for Pain. 30 tablet 9 Active atorvastatin (LIPITOR) 40 MG tablet Take [...] (ADVAIR HFA) 230-21 MCG/ACT inhalerIndication s:COPD exacerbation (CMS/HCC HHS/HCC) Inhale 2 puffs into the lungs 2 (two) times daily. 8 g 1 4 Active albuterol sulfate HFA 108 (90 Base) MCG/ACT inhaler Inhale 2 puffs into the lungs every 6 (six) hours as needed for Wheezing. 8 g 2 4 Active amLODIPine (NORVASC) 10 MG tablet Take 1 tablet by mouth once daily 30 tablet 5 Active Active Problems Problem Noted Date Diagnosed Date Dyspnea 02/14/2024 Inflammatory bowel disease 02/14/2024 COPD exacerbation ([facility]) 02/14/2024 Vitamin B12 deficiency (non anemic) 01/05/2024 Anemia 01/05/2024 High serum creatinine 12/31/2023 Osteoarthritis of left hip 08/06/2023 Coronary arteriosclerosis 06/11/2023 Full thickness rotator cuff tear 11/12/2022 Severe chronic obstructive p ulmonary disease ([facility]) 10/03/2022 Cigarette smoker 10/03/2022 Prediabetes 09/27/2022 Iron deficiency anemia 09/27/2022 Hyperlipidemia 09/27/2022 Hemorrhoids 09/27/2022 Essential hypertension 09/27/2022 Vitamin D deficiency 05/13/2022 Coronary artery disease invo lving [place] heart without angina pectoris 03/15/2021 Overview (02/14/2024): Added automatically from request for surgery [id number] Crohn's disease ([facility]) 03/03/2020 Bronchitis 03/03/2020 Crohn's colitis ([facility]) 08/29/2018 Family History Medical History Relation Comments Hypertension Father Hypertension Mother Relation Status Comments Father Mother Social History Tobacco Use Types Packs/Day Years Used Date Smoking Tobacco: Every Day Cigarettes Smokeless Tobacco: Never Tobacco Cessation:Ready to Q uit: Not Asked; Counseling Given: Not Answered Alcohol Use Standard Drinks/Week Comments No 0 (1 standard drink = 0.6 oz pur e alcohol) [facility] Utilities Answer Date Recorded In the past 12 months has th e [employer], gas, oil, or water [employer] threatened to shut off services in your [...] time in the past 12 m [facility], were you homeless or living in a care home (including now)? No 02/14/2024 Sex and [...] A M CDT Height 170.2 cm (5' 7) 02/13/2024 10:30 PM CDT Body Mass Index 22.76 02/13/2024 10:30 PM CDT Plan of Treatment Health Maintenance Due Date Last Done Comments Colorectal Cancer Screening Colonoscopy (10 Years) 1965 Annual Physical 1968 Hepatitis C 10/28/1983 DTaP, Tdap and Td Vaccines ( 1 - Tdap) 1984 Pneumococcal Vaccine: 50+ Years (1 of 2 - PCV) 1984 Zoster Vaccines (1 of 2) 10/28/2015 COVID-19 Vaccine (4 - 2023-2 5 season) 2024 05/09/2022, 12/25/2020, 12/04/2020 Meningococcal B Vaccine Aged Out No l [...] hospital Lifestyle No Melvina Mena, RN Insurance [employer] Advance Directives * Full Code (Latest Code Status on File) Date Activated Date Inactivated Comments 02/14/2024 5:49 AM 02/19/2024 4:04 PM * Full Code Date Activated Date Inactivated Comments 08/29/2018 6:49 AM 08/31/2018 12:38 PM Care Teams Supervisor Shed Workers Relationship Specialty Start Date End Date Sabine Looney MD PCP - General INTERNAL MEDICINE 02/16/24
--- OUTSIDE RECORDS SUMMARY | 2025-01-17 10:12 | XMS_ITS | Clinical Summary ---
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 [address] [place] [address] Health Maintenance Due Date Last Done Comments DIABETES ANNUAL FOOT EXAM 10/28/1983 DIABETES ANNUAL RETINAL EXAM 10/28/1983 DIABETES HBA1C Q 6 MONTHS 10/28/1983 DIABETES MICROALBUMIN ANNUAL SCREEN 10/28/1983 LDL CHOLESTEROL ANNUAL 10/28/1983 DTAP/TDAP/TD VACCINES (1 - Tdap) 1984 HEPATITIS B VACCINES (1 of 3 - 19+ 3-dose series) 1984 COLORECTAL SCREENING 2010 Colorectal Cancer Screening 2010 FIT-DNA Q 3 years 2010 FIT/FOBT Q 1 year 2010 Flex Sig/CT Colonography Q 5 years 2010 ZOSTER VACCINE (1 of 2) 10/28/2015 COVID-19 Vaccine ( season) 2024 05/09/2022, 12/25/2020, 12/04/2020 INFLUENZA VACCINE (#1) 2024 05/06/2022, 2020 Insurance [employer]
--- OUTSIDE RECORDS SUMMARY | 2025-01-17 10:12 | XMS_ITS | Clinical Summary ---
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 Diagnostic Imaging [address] [place] [address] Osteoarthritis of left hip, unspecified osteoarthritis type Discharge Disposition: Discharge to home or self care from Last 3 Months Surgical History Surgery Date Site/Laterality Comments FL FLUORO GUIDED INJECTION HIP LEFT 01/11/2025 Left Medical History Medical History Date Comments Hypertension Hyperlipidemia COPD (chronic obstructive pulmonary disease) Crohn's colitis Tobacco abuse Social History Tobacco Use Types Packs/Day Years Used Date Smoking Tobacco: Every Day Sex and Gender Information Value Date Recorded Sex Assigned at Not on file Legal Sex 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 Gender Identity Not on file Sexual Orientation Not on file Obstetrics History Last Filed Vital Signs Vital Sign Reading Time Taken Comments Blood Pressure 130/76 04/26/2021 10:02 AM ENVIRONMENTAL CONSULTANT Pulse 81 04/26/2021 10:02 AM ENVIRONMENTAL CONSULTANT Temperature 37.2 C (98.9 F) 03/25/2021 7:58 AM CDT Respiratory Rate 14 04/26/2021 10:02 AM ENVIRONMENTAL CONSULTANT Oxygen Saturation 97% 04/26/2021 10:02 AM ENVIRONMENTAL CONSULTANT Inhaled Oxygen Concentration - - Weight 61.7 kg (136 lb) 04/26/2021 10:02 AM ENVIRONMENTAL CONSULTANT Height 170.2 cm (5' 7) 04/26/2021 10:02 AM ENVIRONMENTAL CONSULTANT Body Mass Index 21.3 04/26/2021 10:02 AM ENVIRONMENTAL CONSULTANT Plan of Treatment Health Maintenance Due Date Last Done Comments Colon Cancer Screening-Colonoscopy 1965 Depression Screening 1965 Hepatitis C Screening 1965 Prostate Cancer Screening-PSA 1965 DTaP/Tdap/Td Vaccine (1 - Tdap) 1976 Hepatitis B Screening 10/28/1983 Regular Well Visit/Exam 18-64 10/28/1983 Pneumococcal vaccine <65 (1 of 2 - PCV) 1984 Zoster Vaccine (1 of 2) 10/28/2015 Covid-19 Vaccine (3 - season) 01/25/202406/2020, 12/04/2020 Influenza Vaccine (#1) 2025 05/06/2022, 2020 Medical Devices Implanted Type Area Field Care Manager Device Identifier Shelf Expiration Date Model / Serial / Lot Estelle-Kash 24-025-44 Titanium 1.8mm 8 Hole Sternal X Plate Bone Mini Sternotomy - [id number] Implanted:Qty: 3 on 03/20/2021 by Malathi Curry MD at [facility] N/A: Sternum [facility] 24-025-44 - 09 / / [facility] [id number] Drill-Free Maxdrive 2.3mm 13mm Self Retaining Lock Sternal Screw - [id number] Implanted:Qty: 20 on 03/20/2021 by Malathi Curry MD at [facility] N/A: Sternum [facility] 24-023-13 - / / [facility] 24-023-15 Drill-Free Maxdrive 2.3mm 15mm Self Retain Sternal Screw Bone - [id number] Implanted:Qty: 4 on 03/20/2021 by Malathi Curry MD at [facility] N/A: Sternum [facility] 24-023-15 - 91 / / Procedures Procedure Name Priority Date/Time Associated Diagnosis Comments FL FLUORO GUIDED INJECTION HIP LEFT Schedule Routine, Read Routine (OP Routine) 01/11/2025 2:40 PM CDT Osteoarthritis of left hip, unspecified osteoarthritis type from Last 3 Months Results * FL Fluoro Guided Injection Hip Left (01/11/2025 2:40 PM CDT) Anatomical Region Laterality Modality Hip Left Computed Radiogr aphy, Computed Radiography 01/11/2025 3:31 PM CDT Narrative 01/11/2025 3:32 PM CDT EXAM DESCRIPTION: FL FLUORO GUIDED INJECTION HIP LEFT REASON FOR STUDY: Hip pain, chronic, erosive osteoarthritis suspected, xray done Hip pain. COMPARISON: None RADIATION DOSE: Dose: 24.63 uGym2 Dose Area Product (DAP) TECHNIQUE/FINDINGS: Risk, benefits, and alternatives of the procedure were explained to the patient and informed consent was obtained. The area was prepped and draped in the usual sterile fashion. Utilizing fluoroscopic guidance, a 25-gauge spinal needle was directed into the hip joint space and a small amount of Omnipaque 180 was injected to confirm intra-articular placement. 40 mg of Depo-Medrol and 3 mL of 0.5% Marcaine were injected without complication. Patient reported no complaints following the injection. IMPRESSION: Successful left hip steroid injection. THIS IS AN ELECTRONICALLY VERIFIED FINAL REPORT 01/11/2025 3:32 PM - Electronically signed by Rosalie Ribera M.D. FT T: Report ID: [id number] Reading Location: [id number] Procedure Note Rosalie Castillo MD - 01/11/2025 EXAM DESCRIPTION: FL FLUORO GUIDED INJECTION HIP LEFT REASON FOR STUDY: Hip pain, chronic, erosive osteoarthritis suspected,xray done Hip pain. COMPARISON: None RADIATION DOSE: Dose: 24.63 uGym2 Dose Area Product (DAP) TECHNIQUE/FINDINGS: Risk, benefits, and alternatives of the procedure were explained to the patient and informed consent was obtained. The area was prepped and draped in the usual sterile fashion. Utilizing fluoroscopic guidance, a 25-gauge spinal needle was directed into the hip joint spaceand a small amount of Omnipaque 180 was injected to confirm intra-articular placement. 40 mg of Depo-Medrol and 3 mL of 0.5% Marcaine wereinjected without complication. Patient reported no complaints following the injection. IMPRESSION: Successful left hip steroid injection. THIS IS AN ELECTRONICALLY VERIFIED FINAL REPORT 01/11/2025 3:32 PM - Electronically signed by Rosalie iRbera M.D. FT T: Report ID: [id number] Reading Location: [id number] Myron Lopez MD IMG FLUOROSCOPY PROCEDURES Fi nal Result from Last 3 Months Insurance [facility] Advance Directives For more information, please contact: [phone] * Full Code (Latest Code Status on File) Date Activated Date Inactivated Comments 03/16/2021 10:12 AM 03/25/2021 5:30 PM Care Teams Orientor Relationship Specialty Start Date End Date Hemant Lopez MD PCP - General 03/22/21
--- OUTSIDE RECORDS SUMMARY | 2025-01-17 10:13 | XMS_ITS | Encounter Summary ---
Author Organization [facility] Address [address] [place] [address] Care Team Providers Care Miller Helper Distillery Name Role Phone Hemant Lopez MD Primary Care Provider [phone] Sabine Looney MD Primary Care Provider Encounter Details Date Type Department Care Team (Late st Contact Info) Description 09/01/2018 Hospital Follow-up Call [facility] Telemetry Unit [address] [place] [address] Brina Dick Social History Tobacco Use Types [...] documented as of this encounter Care Teams Miller [employer] Relationship Specialty Start Date End Date Hemant Lopez MD PCP - General 04/09/16 02/15/24 Sabine Looney MD PCP - General INTERNAL MEDICINE 02/16/24 documented as of this encounter
--- NOTE | 2025-01-17 11:04 | ED_ITS ---
HPI - SOB/Dyspnea General Chief Complaint: Shortness of Breath/Dyspnea Stated Complaint: SOB, URI symptoms hx COPD Time Seen by Provider: 01/17/25 10:56 History of Present Illness HPI Narrative: 59-year-old male history of COPD presents to the ER complaining of cough, increasing shortness of breath, sinus congestion, PND, rhinorrhea for 2 days. States has been using his rescue inhaler regularly, but with no increased frequency. Denies fevers. Related Data Home Medications ?Medication ?Instructions ?Recorded ?Confirmed ?Last Taken ?Type atorvastatin 40 mg tablet 40 mg PO DAILY 06/18/2405/27 Unknown History Allergies Allergy/AdvReac Type Severity Reaction Status Date / Time No Known Allergies Allergy Verified 05/30/24 05:56 Review of Systems 2 Review of Systems: All systems reviewed & are unremarkable except as noted in HPI. All systems reviewed & are unremarkable except as noted in HPI and below PMFSH Social History Social History Smoking packs per day: 0.25 Smoking cigarettes per day: 5.0 Years smoked: 45 Smoking pack-years: 11.25 Smoking status: Current every day smoker Tobacco type: cigarettes Second hand tobacco smoke exposure: No Alcohol intake: current Drinks per week: 30 Substance use type: marijuana and crack/cocaine Other substance usage details: uses marijuana and cocaine on weekends Do You Feel Safe in your Home?: Yes Lack of Transportation: No Lack of Food: Never True Current Housing: I Have Housing Concerned About Future Housing: No Difficulty Paying Gas/Electric Bills: No Difficulty Paying for Meds: No Currently Unemployed: No Education: High School Diploma/GED Difficulty w/ Childcare or Family Care: No Spiritual care concerns: No Exam 2 Const: General: healthy appearing, no acute distress and alert Nutritional Appearance: well nourished Orientation/consciousness: patient oriented x3 Limitations: no limitations HENMT: Head: normal to inspection Eyes: Conjunctivae: conjunctivae normal Neck: Neck: normal visual inspection Chest: Chest palpation & inspection: normal inspection of the chest Resp: Effort & Inspection: normal respiratory effort Auscultation: crackles and wheezes Cardio: Rate: regular rate Rhythm: regular rhythm Skin: General skin exam: normal color Rashes: no rashes Wounds: no wounds Neuro: General: patient oriented x3, moves all extremities and CN's II-XI intact bilaterally Extrem: General: normal to inspection Psych: Mental Status: mental status grossly normal Affect: normal affect Attitude: cooperative Course Vital Signs Vital signs: Vital Signs Temperature 36.9 C 01/17/25 09:59 Pulse Rate 102 H 01/17/25 09:59 Respiratory Rate 20 01/17/25 09:59 Blood Pressure 164/95 H 01/17/25 09:59 Pulse Oximetry 100 01/17/25 09:59 Oxygen Delivery Room Air 01/17/25 09:59 Temperature 36.9 C 01/17/25 09:59 Pulse Rate 79 01/17/25 11:29 Respiratory Rate 20 01/17/25 11:29 Blood Pressure 164/95 H 01/17/25 09:59 Pulse Oximetry 100 01/17/25 09:59 Oxygen Delivery Room Air 01/17/25 09:59 MDM - SOB/Dyspnea MDM Narrative Medical decision making narrative: 59-year-old male history of COPD presents to the ER complaining of URI symptoms. Chest x-ray showed no acute cardiopulmonary disease. Viral panel was negative. The lab work was reassuring. Patient was given a DuoNeb and 125 of Solu- Medrol. On reexamination, patient reported improvement of his symptoms. Differential diagnosis includes COPD exacerbation, viral URI, pneumonia. Patient was discharged home in stable condition with doxycycline and 5 day course of prednisone. Lab Data 01/17/25 12:48 01/17/25 12:48 Labs: Lab Results 01/17/25 Range/Units 12:48 WBC 8.1 (4.5-10.0) K/mm3 RBC 3.61 L (4.6-6.20) M/mm3 Hgb 11.6 L (14.0-18.0) g/dL Hct 35.1 L (42.0-52.0) % MCV 97.2 (80-100) fl MCH 32.1 (26-34) pg MCHC 33.0 (32-36) g/dl RDW 13.9 (11.5-14.5) % Plt Count 266 (150-375) k/mm3 MPV 8.0 (7.4-10.4) fl Immature Gran % (Auto) 0.4 (0-0.5) % Neut % (Auto) 83.9 H (45.5-73.1) % Lymph % (Auto) 9.5 L (18.3-44.2) % [place] % (Auto) 5.8 (2.6-8.5) % Eos % (Auto) 0.2 (0-4.4) % Baso % (Auto) 0.2 (0.2-1.2) % Lymph # (Auto) 0.77 L (0.9-3.2) K/mm3 [place] # (Auto) 0.5 (0.1-0.6) K/mm3 Eos # (Auto) 0.0 (0-0.3) K/mm3 Baso # (Auto) 0.0 (0.0-0.1) K/mm3 Abs Immat Gran (auto) 0.03 (0.00-0.031) K/mm3 Absolute Neuts (auto) 6.8 H (1.3-6.7) K/mm3 Absolute Nucleated RBC 0.000 (0.0-0.012) K/mm3 Nucleated RBC % 0.0 (0.0-0.2) % Sodium 138 (137-145) mmol/L Potassium 4.1 (3.4-5.0) mmol/L Chloride 112 H (98-107) mmol/L Carbon Dioxide 19 L (22-30) mmol/L Anion Gap 7 (4-12) mmol/L BUN 15 D (9-20) mg/dL Creatinine 1.30 (0.7-1.3) mg/dL Estim Creat Clear Calc 51 ml/min Estimated GFR 57 L (59 - ) Glucose 99 (65-110) mg/dL Calcium 8.6 (8.4-10.2) mg/dL Total Bilirubin 0.6 (0.2-1.3) mg/dL AST 29 (17-59) U/L ALT 17 (6-50) U/L Alkaline Phosphatase 72 (38-126) U/L Total Protein 7.1 (6.3-8.2) g/dL Albumin 3.8 (3.5-5.1) g/dL Influenza A (RT-PCR) Negative (Negative) Influenza B (RT-PCR) Negative (Negative) RSV (RT-PCR) Negative (Negative) SARS-CoV-2 RNA (RT-PCR) Negative (Negative) Discharge Plan Discharge Clinical Impression: Acute exacerbation of chronic obstructive pulmonary disease (COPD) Patient Disposition: Home Condition: Stable Instructions: Antibiotic Form, Upper Respiratory Infection (ED), COPD (Chronic Obstructive Pulmonary Disease) (ED) Patient Language: Kinyarwanda Prescriptions: New prednisone 50 mg tablet 50 mg PO DAILY Qty: 5 0RF doxycycline hyclate 100 mg capsule 100 mg PO DAILY Qty: 14 0RF No Action atorvastatin 40 mg tablet 40 mg PO DAILY prednisone 10 mg tablet 40 mg PO DAILY 5 Days Qty: 20 0RF Rx Instructions: see taper instructions losartan 50 mg tablet 50 mg PO .daily Qty: 30 0RF carvedilol 6.25 mg tablet 6.25 mg PO Q12H Qty: 30 0RF amlodipine 10 mg tablet 10 mg PO DAILY 30 Days Qty: 0 0RF albuterol sulfate 90 mcg/actuation HFA aerosol inhaler 1 puff INHALATION Q6-8H PRN (Reason: shortness of breath or wheezing) Qty: 1 2RF budesonide-formoterol [Symbicort] 160-4.5 mcg/actuation HFA aerosol inhaler 1 inh INHALATION Q12H PRN (Reason: bronchodilation) Qty: 1 2RF Spiriva Respimat 2.5 mcg/actuation mist 2 inh INHALATION Q24H Qty: 1 0RF benzonatate 200 mg capsule 200 mg PO TID PRN (Reason: cough) Qty: 21 0RF benzonatate 200 mg capsule 200 mg PO TID PRN (Reason: cough) Qty: 15 0RF oseltamivir [Tamiflu] 75 mg capsule 75 mg PO Q12H 5 Days Qty: 10 0RF prednisone 50 mg tablet 50 mg PO DAILY Qty: 5 0RF ondansetron 4 mg tablet,disintegrating 4 mg PO Q8H PRN (Reason: nausea and vomiting) Qty: 15 0RF albuterol sulfate 90 mcg/actuation HFA aerosol inhaler 2 puff inhalation QID PRN (Reason: shortness of breath or wheezing) Qty: 6.7 0RF Follow-up/Referrals: UNKNOWN,DOCTOR [Primary Care Provider] Time of Disposition: 14:06
[2025-01-17] MEDS: IPRATROPIUM 0.5 MG/ALBUTEROL SULFATE 2.5 MG AMPUL.NEB 3 ML INHALATION (11:23)
--- OUTSIDE RECORDS SUMMARY | 2025-01-17 11:45 | XMS_ITS | Clinical Summary ---
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 [address] [place] [address] Rajan Marcano MD [address] [facility] [address] [place] [address] Health Maintenance Due Date Last [...]
--- OUTSIDE RECORDS SUMMARY | 2025-01-17 11:45 | XMS_ITS | Clinical Summary ---
Author Organization [facility] Center Address [address] [place] [address] Care Team Providers Care Risk Management Manager Name Role Phone Hemant Lopez MD Primary Care Provider [phone] Allergies No known active allergies Medications ergocalciferol [...] Diagnosed Date Coronary artery disease invo lving [place] heart without angina pectoris 03/15/2021 Overview (03/19/2021): Added automatically from request for surgery [id number] Encounters Date Type Department Care Team Description 01/11/2025 1:21 PM CDT - 01/11/2025 11:59 PM CDT Hospital Encounter [facility] Diagnostic Imaging [address] [place] [address] Osteoarthritis of left hip, unspecified osteoarthritis type [...] on file 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 Gender Identity Not on file Sexual Orientation Not on file Obstetrics History Last Filed Vital Signs Vital Sign Reading Time Taken Comments Blood Pressure 130/76 04/26/2021 10:02 AM HOT MILL OBSERVER Pulse 81 04/26/2021 10:02 AM HOT MILL OBSERVER Temperature 37.2 C (98.9 F) 03/25/2021 7:58 AM CDT Respiratory Rate 14 04/26/2021 10:02 AM HOT MILL OBSERVER Oxygen Saturation 97% 04/26/2021 10:02 AM HOT MILL OBSERVER Inhaled Oxygen Concentration - - Weight 61.7 kg (136 lb) 04/26/2021 10:02 AM HOT MILL OBSERVER Height 170.2 cm (5' 7) 04/26/2021 10:02 AM HOT MILL OBSERVER Body Mass Index 21.3 04/26/2021 10:02 AM HOT MILL OBSERVER Plan of Treatment Health Maintenance Due Date [...] 05/06/2022, 2020 Medical Devices Implanted Type Area Potato Chip Sorter Device Identifier Shelf Expiration Date Model / Serial / Lot Estelle-Kash 24-025-44 Titanium 1.8mm 8 Hole Sternal X Plate Bone Mini Sternotomy - [id number] Implanted:Qty: 3 on 03/20/2021 by Malathi Curry MD at [facility] N/A: Sternum [facility] 24-025-44 - 09 / / [facility] [id number] Drill-Free Maxdrive 2.3mm 13mm Self Retaining Lock Sternal Screw - [id number] Implanted:Qty: 20 on 03/20/2021 by Malathi Curry MD at [facility] N/A: Sternum [facility] 24-023-13 - / / [facility]ly [facility] 24-023-15 Drill-Free Maxdrive 2.3mm 15mm Self Retain Sternal Screw Bone - [id number] Implanted:Qty: 4 on 03/20/2021 by Malathi Curry MD at [facility] N/A: Sternum [facility] 24-023-15 - 91 / / Procedures [...] Rosalie Ribera M.D. FT T: Report ID: [id number] Reading Location: [id number] Procedure Note Rosalie Castillo MD - 01/11/2025 [...] Rosalie Ribera M.D. FT T: Report ID: [id number] Reading Location: [id number] Myron Lopez MD IMG FLUOROSCOPY PROCEDURES Fi nal Result from Last 3 Months Insurance [facility] Advance Directives For more information, please contact: [phone] * Full Code (Latest Code Status on File) Date Activated Date Inactivated Comments 03/16/2021 10:12 AM 03/25/2021 5:30 PM Care Teams Risk Management Manager Relationship Specialty Start Date End Date Hemant Lopez MD PCP - General 03/22/21
--- OUTSIDE RECORDS SUMMARY | 2025-01-17 11:45 | XMS_ITS | Clinical Summary ---
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
[2025-01-17 13:08] LABS: Hematocrit 35.1 % (42.0-52.0); Hemoglobin 11.6 g/dL (14.0-18.0); Immature Granulocyte Percent A 0.4 % (0-0.5); Lymphocytes Absolute Auto 0.77 K/mm3 (0.9-3.2); Mean Corpuscular HGB Conc 33.0 g/dl (32-36); Mean Corpuscular Hemoglobin 32.1 pg (26-34); Mean Corpuscular Volume 97.2 fl (80-100); Nucleated Red Blood Cells Absolute Auto 0.000 K/mm3 (0.0-0.012); Nucleated Red Blood Cells Perc 0.0 % (0.0-0.2); Platelet Count Result 266 k/mm3 (150-375); Red Blood Count 3.61 M/mm3 (4.6-6.20); White Blood Count 8.1 K/mm3 (4.5-10.0)
[2025-01-17 13:33] LABS: Influenza A QL RT-PCR Negative (Negative); Influenza B QL RT-PCR Negative (Negative); RSV RNA, RT-PCR Negative (Negative); SARS-CoV-2 RNA PCR Negative (Negative)
[2025-01-17 13:49] LABS: Alanine Aminotransferase 17 U/L (6-50); Albumin Level 3.8 g/dL (3.5-5.1); Alkaline Phosphatase 72 U/L (38-126); Anion Gap 7 mmol/L (4-12); Aspartate Amino Transferase 29 U/L (17-59); Bilirubin,Total 0.6 mg/dL (0.2-1.3); Blood Urea Nitrogen 15 mg/dL (9-20); Calcium 8.6 mg/dL (8.4-10.2); Carbon Dioxide 19 mmol/L (22-30); Chloride 112 mmol/L (98-107); Estimated CRCL calculation 51 ml/min; Estimated Glomerular Filt Rate 57; Glucose 99 mg/dL (65-110); Potassium 4.1 mmol/L (3.4-5.0); Sodium 138 mmol/L (137-145); Total Protein 7.1 g/dL (6.3-8.2)
== END 2025-01-17 14:55 | disposition home or self-care (01) ==
PROVIDERS: Emergency Provider Nurse Practitioner Family
DX: J44.1 Chronic obstructive pulmonary disease with (acute) exacerbation (principal); Z20.822 Contact with and (suspected) exposure to COVID-19; F17.210 Nicotine dependence, cigarettes, uncomplicated
CPT/HCPCS: 36415; 71046; 80053; 85025; 87637; 94640; 96374; 99284; J2919